=== PATIENT | female | born 1965 | race African-American/Black ===

== ENCOUNTER 2017-01-21 11:58 | Inpatient (IN) | payer MEDICARE, OTHER ==
[~2017-01-21] VITALS: Ht 167.6 cm; Wt 92.5 kg
[~2017-01-21 11:58] MED LIST: ALBUTEROL SULF8.5 GM INH; AMBIEN10 MG PO; CLINDAMYCIN HC300 MG ORAL; COUMADIN2 MG PO; HYDROCODON-ACE1 EAC4 ORAL; KEFLEX500 MG PO; NORCO 5-325 TA1 EACH ORAL; OMEPRAZOLE40 MG PO; PERIDEX 0.12% O16 OZ ORAL; PHENERGAN/CODE120 ML ORAL; PHENERGAN6.25 MG/5 ORAL; PHOSLO667 MG PO; PREDNISONE20 MG ORAL; RENAVIT TABLET0.8 MG PO; RENVELA800 MG PO; ROBITUSSIN DM5 ML PO; SENSIPAR30 MG PO; TRAMADOL HCL50 MG ORAL; VICODIN 5-5001 EACH ORAL; XOPENEX HFA15 GM IH; ZITHROMAX250 MG ORAL
[2017-01-21 12:17] VITALS: BP 95/60
[2017-01-21 13:24] LABS: BASOPHILS % (AUTO) 0.7 % (0.0-2.0); EOSINOPHILS % (AUTO) 3.4 % (0.0-3.0); LYMPHOCYTES % (AUTO) 20.4 % (20.0-45.0); MEAN CORPUSCULAR HEMOGLOBIN 29.6 PG (27.0-31.0); MEAN CORPUSCULAR HGB CONC 32.1 G/DL (32.0-36.0); MEAN CORPUSCULAR VOLUME 92 FL (80-99); MEAN PLATELET VOLUME 8.7 FL (6.5-10.1); MONOCYTES % (AUTO) 6.2 % (1.0-10.0); NEUTROPHILS % (AUTO) 69.3 % (45.0-75.0); PLATELET COUNT 164 K/UL (150-450); RED BLOOD COUNT 3.64 M/UL (4.20-5.40); RED CELL DISTRIBUTION WIDTH 15.9 % (11.6-14.8); WHITE BLOOD COUNT 6.2 K/UL (4.8-10.8)
[2017-01-21 13:41] LABS: ALANINE AMINOTRANSFERASE 12 U/L (3-33); ALBUMIN/GLOBULIN RATIO 0.9 (1.0-2.7); ANION GAP 20 (5-15); ASPARTATE AMINO TRANSFERASE 16 U/L (5-40); CALCIUM 9.2 mg/dL (8.6-10.2); CARBON DIOXIDE 24 mEQ/L (20-30); CHLORIDE 95 mEQ/L (98-107); CREATININE 9.5 mg/dL (0.5-0.9); GLOMERULAR FILTRATION RATE 5.2 mL/min (>60); HEMOLYSIS 37; POTASSIUM 3.9 mEQ/L (3.4-4.9); SODIUM 139 mEQ/L (135-145); TOTAL PROTEIN 8.3 g/dL (6.6-8.7); TROPONIN I < 0.30 ng/mL (<=0.30)
[2017-01-21 13:51] LABS: CKMB < 1.5 ng/mL (< 3.8)
--- NOTE | 2017-01-21 13:59 | Diagnostic Imaging Report ---
Indication: Dyspnea Comparison: 11/24/13 A single view chest radiograph was obtained. Findings: Heart is borderline in size. Lungs are clear. Surgical clips noted in both axilla regions. There is a catheter projected over the IVC. Bones are osteopenic. Impression: No acute cardiopulmonary disease identified
[2017-01-21 14:32] VITALS: BP 102/58
[2017-01-21] MEDS ORDERED: SENSIPAR30 MG ORAL (14:57)
[2017-01-21] MEDS ORDERED: AMBIEN10 MG ORAL (14:57)
[2017-01-21] MEDS ORDERED: OMEPRAZOLE20 M2 ORAL (14:57)
[2017-01-21] MEDS ORDERED: NEPHROVITE1 TAB ORAL (14:57)
[2017-01-21] MEDS ORDERED: RENVELA800 MG ORAL (14:57)
[2017-01-21 16:00] VITALS: BP 101/54
[2017-01-21] MEDS ORDERED: DiphenhydrAMINE 50mg/ml Inj IVP PRN (17:15)
--- NOTE | 2017-01-21 17:15 | History & Physical ---
History and Physical History & Physicial Dictated for Int Med-Dr Henley no. [id number]. SHAVONNE UGALDE Jan 21, 2017 17:15
[2017-01-21] MEDS ORDERED: Vancomycin 1.5 GM/D5W 250ML IVPB ONE (18:30)
[2017-01-21 20:50] VITALS: BP 84/46
[2017-01-21] MEDS: Heparin 5000 units/ml inj SUBQ SCH (20:57)
[2017-01-21] MEDS: Zolpidem 5mg tab ORAL PRN (22:56)
[2017-01-22 00:51] VITALS: BP 81/47
--- NOTE | 2017-01-22 03:30 | History and Physical Report ---
DATE OF ADMISSION: 01/21/2017 Chief Complaint: The patient is a 51-year-old female with history of end-stage renal disease on hemodialysis, who presents with complaint of "infection in my blood." History Of Present Illness: The patient undergoes dialysis every Wednesday, Wednesday, and Wednesday at [facility]. The patient states blood cultures on Wednesday were positive. The patient received 1 dose of vancomycin yesterday, 01/20/2017. The patient was told to come to emergency room for probable sepsis. The patient presented to [place] [facility]. The patient is admitted for positive blood cultures to rule out sepsis. Review Of Systems: Constitutional: The patient denies weight loss or weight gain. The patient does complain of subjective fevers and chills. HEENT: The patient denies ear or throat pain. The patient denies headache. Cardiovascular: The patient denies palpitations or chest pain. Chest: The patient denies wheeze or shortness of breath. Abdomen: The patient denies nausea, vomiting, diarrhea, or constipation. Genitourinary: The patient denies dysuria or increased frequency of urination. Neuromuscular: The patient denies seizures or generalized weakness. Past Medical History: Significant for end-stage renal disease, on hemodialysis every Wednesday, Wednesday, and Wednesday. The patient's last dialysis was on 01/20/2017. PAST SURGICAL HISTORY: Significant for: 1. PermCath placement in the left groin for dialysis. 2. Several arteriovenous grafts for dialysis with reversal. 3. Cholecystectomy. 4. Parathyroidectomy. 5. Carpal tunnel release. 6. Open reduction and internal fixation of the left elbow fracture. 7. 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 8. History of peritoneal dialysis port. CURRENT MEDICATIONS: 1. Sensipar 30 mg one tablet p.o. every Wednesday, Wednesday, and Wednesday. 2. Renvela 800 mg two tablets p.o. 3 times daily. 3. Omeprazole 20 mg one tablet p.o. twice daily. 4. Ambien 10 mg one tablet p.o. nightly. 5. Nephro-Dmitry 1 tablet p.o. daily. ALLERGIES: 1. Cefazolin. 2. Ciprofloxacin. 3. Gentamicin. 4. Levofloxacin. 5. Penicillin. Social History: The patient is single and is disabled. The patient denies tobacco or alcohol use. PHYSICAL EXAMINATION: Vital Signs: Temperature 97.3, respirations 16, pulse 90, and blood pressure 95/60. General: The patient is a well-developed and well-nourished female, in no apparent distress. HEENT: Eyes, pupils are equal and responsive to light and accommodation. Extraocular movements are intact. NECK: Supple without lymphadenopathy. Chest: Lungs are clear to auscultation bilaterally without wheezes or rales. Cardiovascular: Regular rate. S1 and S2 normal without murmurs, rubs, or gallops. Abdomen: Soft, nontender, and nondistended. Positive bowel sounds. No evidence of hepatosplenomegaly. Currently, no rebound or guarding noted. EXTREMITIES: Negative for clubbing, cyanosis, or edema. RECTAL: Refused. GENITAL: Refused. Neurologic: Cranial nerves II through XII are grossly intact without focal deficits. Motor strength is 5/5 bilaterally. Deep tendon reflexes are 2+, plantar. Laboratory Studies: WBC 6.2, hemoglobin 10.8, hematocrit 33.6, and platelets 164,000. Sodium 139, potassium 3.9, chloride 95, CO2 24, BUN 39, creatinine 9.5, and glucose 94. Troponin less than 0.3. ASSESSMENT: This is a 51-year-old female with: 1. Line sepsis. 2. End-stage renal disease, on hemodialysis. TREATMENT: 1. Probable sepsis. An Infectious Disease consultation has been obtained with Dr. Fairbanks. The patient has been started empirically on vancomycin. Blood cultures are pending. We will follow recommendations of infectious diseases. The patient had blood cultures drawn at [facility]. Results will be obtained from [facility]. 2. End-stage renal disease. Nephrology consultation is pending with Dr. Conner. The patient underwent dialysis yesterday, 01/20/2017. The patient is scheduled for dialysis tomorrow, 01/22/2017, by Dr. Conner. Edward Harrell M.D. DR: JONNIE JOB#: [id number] CC:
[2017-01-22 04:52] VITALS: BP 91/56
--- NOTE | 2017-01-22 06:52 | Emergency Room Report ---
History of Present Illness General Chief Complaint: Abnormal Labs Source: Patient Present Illness HPI Patient presents with complaints of general weakness She also complains of exertional dyspnea Reports over the past 2 days with short ambulation she began feeling short of breath Mild chest heaviness Patient is on dialysis Reports that she was recently started on antibiotics for possible bacteremia Shows a has a mild cough Denies any neck pain or photophobia Allergies: Coded Allergies: CEFAZOLIN (Verified Allergy, Unknown, 10/02/10) CIPROFLOXACIN (Verified Allergy, Unknown, 10/02/10) GENTAMICIN (Verified Allergy, Unknown, 10/02/10) LEVOFLOXACIN (Verified Allergy, Unknown, 10/02/10) PENICILLINS (Verified Allergy, Unknown, ITCH, 10/02/10) Patient History Past Medical History: see triage record Pertinent Family History: none Reviewed Nursing Documentation: PMH: Agreed, PSxH: Agreed Nursing Documentation-PMH Hx Cardiac Problems: Yes - Hypotension Hx Pacemaker: Yes Hx Asthma: Yes Hx Diabetes: Yes Hx Cancer: No Hx Gastrointestinal Problems: Yes Hx Dialysis: Yes - MWF, last dialysis 01/20/17. Hx Neurological Problems: No - Review of Systems All Other Systems: negative except mentioned in HPI Physical Exam Vital Signs Date Time Temp Pulse Resp B/P (MAP) Pulse Ox O2 Delivery O2 Flow Rate FiO2 01/21/17 12:17 97.3 90 16 95/60 93 Room Air Sp02 EP Interpretation: reviewed, normal General Appearance: well appearing, no apparent distress Head: normocephalic, atraumatic Eyes: bilateral eye PERRL, bilateral eye EOMI ENT: hearing grossly normal, normal pharynx, TMs + canals normal, uvula midline Neck: full range of motion, supple, no meningismus, no bony tend Respiratory: no rhonchi, no respiratory distress, no retraction, no accessory muscle use, crackles - in both lower lobes Cardiovascular #1: normal peripheral pulses, regular rate, rhythm, no edema, no gallop, no JVD, no murmur Gastrointestinal: normal bowel sounds, non tender, soft, no mass, no organomegaly, non-distended, no guarding, no hernia, no pulsatile mass, no rebound Genitourinary: no CVA tenderness Musculoskeletal: normal inspection Neurologic: oriented x3, responsive, heel sprayer first III-XII nml as tested, motor strength/ tone normal, sensory intact Psychiatric: mood/affect normal Skin: normal color, no rash, warm/dry, palpation normal Lymphatic: normal inspection, no adenopathy Medical Decision Making Diagnostic Impression: Primary Impression: ACS (acute coronary syndrome) Additional Impression: Dyspnea ER Course Patient is a fairly complex patient with multiple differential to consideration including but not limited to cardiac cardiopulmonary and vascular emergencies Patient's initial blood work and examination is appropriate No obvious signs of acute ST elevation CO Patient is chest pain-free Given her clinical description and presentation patient is admitted for further care Labs Test 01/21/17 13:00 White Blood Count 6.2 K/UL (4.8-10.8) Red Blood Count 3.64 M/UL (4.20-5.40) Hemoglobin 10.8 G/DL (12.0-16.0) Hematocrit 33.6 % (37.0-47.0) Mean Corpuscular Volume 92 FL (80-99) Mean Corpuscular Hemoglobin 29.6 PG (27.0-31.0) Mean Corpuscular Hemoglobin Concent 32.1 G/DL (32.0-36.0) Red Cell Distribution Width 15.9 % (11.6-14.8) Platelet Count 164 K/UL (150-450) Mean Platelet Volume 8.7 FL (6.5-10.1) Neutrophils (%) (Auto) 69.3 % (45.0-75.0) Lymphocytes (%) (Auto) 20.4 % (20.0-45.0) Monocytes (%) (Auto) 6.2 % (1.0-10.0) Eosinophils (%) (Auto) 3.4 % (0.0-3.0) Basophils (%) (Auto) 0.7 % (0.0-2.0) Sodium Level 139 mEQ/L (135-145) Potassium Level 3.9 mEQ/L (3.4-4.9) Chloride Level 95 mEQ/L (98-107) Carbon Dioxide Level 24 mEQ/L (20-30) Anion Gap 20 (5-15) Blood Urea Nitrogen 39 mg/dL (7-23) Creatinine 9.5 mg/dL (0.5-0.9) Estimat Glomerular Filtration Rate 5.2 mL/min (>60) Glucose Level 94 mg/dL (74-106) Lactic Acid Level 1.70 mmol/L (0.66-2.22) Calcium Level 9.2 mg/dL (8.6-10.2) Total Bilirubin 0.3 mg/dL (0.0-1.2) Aspartate Amino Transf (AST/SGOT) 16 U/L (5-40) Alanine Aminotransferase (ALT/SGPT) 12 U/L (3-33) Alkaline Phosphatase 159 U/L (35-104) Total Creatine Kinase 36 U/L (26-140) Creatine Kinase MB < 1.5 ng/mL (< 3.8) Creatine Kinase MB Relative Index 4.1 Troponin I < 0.30 ng/mL (<=0.30) Total Protein 8.3 g/dL (6.6-8.7) Albumin 4.1 g/dL (3.5-5.2) Globulin 4.2 g/dL Albumin/Globulin Ratio 0.9 (1.0-2.7) EKG Diagnostic Results Rate: normal Rhythm: NSR ST Segments: other - Nonspecific ST and T-wave changes Rhythm Strip Diag. Results EP Interpretation: yes Rate: 78 Rhythm: NSR, no PVC's, no ectopy Chest X-Ray Diagnostic Results Chest X-Ray Diagnostic Results : Chest X-Ray Ordered: Yes # of Views/Limited/Complete: 1 View Indication: Chest Pain EP Interpretation: Yes Interpretation: no consolidation, no effusion, no pneumothorax Impression: No acute disease Electronically Signed by: Angel Mullen DO Last Vital Signs Date Time Temp Pulse Resp B/P (MAP) Pulse Ox O2 Delivery O2 Flow Rate FiO2 01/22/17 04:52 96.8 73 20 91/56 94 01/21/17 20:50 Room Air Status: improved Disposition: ADMITTED INPATIENT Condition: Serious Referrals: Ash Henley MD (PCP) ANGEL MULLEN D.O. Jan 22, 2017 06:52
[2017-01-22] MEDS ORDERED: Metoclopramide 10mg/2ml Inj IVP PRN (07:15)
[2017-01-22 08:00] VITALS: BP 101/58
[2017-01-22 08:18] LABS: BASOPHILS % (AUTO) 0.7 % (0.0-2.0); EOSINOPHILS % (AUTO) 4.6 % (0.0-3.0); LYMPHOCYTES % (AUTO) 30.9 % (20.0-45.0); MEAN CORPUSCULAR HGB CONC 31.6 G/DL (32.0-36.0); MEAN CORPUSCULAR VOLUME 92 FL (80-99); MEAN PLATELET VOLUME 7.7 FL (6.5-10.1); MONOCYTES % (AUTO) 9.8 % (1.0-10.0); PLATELET COUNT 152 K/UL (150-450); RED BLOOD COUNT 3.51 M/UL (4.20-5.40); RED CELL DISTRIBUTION WIDTH 15.6 % (11.6-14.8); WHITE BLOOD COUNT 4.9 K/UL (4.8-10.8)
[2017-01-22] MEDS: Heparin 5000 units/ml inj SUBQ SCH ×2 (08:23→21:05)
[2017-01-22 08:35] LABS: CALCIUM 8.9 mg/dL (8.6-10.2); CREATININE 10.9 mg/dL (0.5-0.9); GLOMERULAR FILTRATION RATE 4.5 mL/min (>60); POTASSIUM 4.2 mEQ/L (3.4-4.9); TOTAL PROTEIN 7.3 g/dL (6.6-8.7)
[2017-01-22] MEDS ORDERED: Nephrovite tab (Rena-Vite) ORAL SCH (09:00)
[2017-01-22] MEDS ORDERED: Dyna-Hex 2% Top Sol 2oz TOPIC SCH (09:00)
--- NOTE | 2017-01-22 09:05 | Consultation ---
Consult Note Consult Note asked to eval for dialysis treatment ESRD ? Line infection + Chills due HD M W Fr on HD for 35 years- s/p Parathyroidectomy and 2 transplant Chief Complaint: Abnormal Labs Source: Patient Patient presents with complaints of general weakness She also complains of exertional dyspnea Reports over the past 2 days with short ambulation she began feeling short of breath Mild chest heaviness Patient is on dialysis Reports that she was recently started on antibiotics for possible bacteremia Shows a has a mild cough Denies any neck pain or photophobia Allergies: Coded Allergies: CEFAZOLIN (Verified Allergy, Unknown, 10/02/10) CIPROFLOXACIN (Verified Allergy, Unknown, 10/02/10) GENTAMICIN (Verified Allergy, Unknown, 10/02/10) LEVOFLOXACIN (Verified Allergy, Unknown, 10/02/10) PENICILLINS (Verified Allergy, Unknown, ITCH, 10/02/10) Hx Cardiac Problems: Yes - Hypotension Hx Asthma: Yes Hx Gastrointestinal Problems: Yes Hx Dialysis: Yes - MWF, last dialysis 01/20/17. Hx Neurological Problems: No - Assessment/Plan ESRD ? Sepsis, line Plan: Dialysis ordered Per consultants EDUARDO ROSE Jan 22, 2017 09:05
[2017-01-22 09:31] LABS: CHOLESTEROL/HDL RATIO 3.7 (3.3-4.4); CRP QUANT 5.7 mg/dL (< 0.5); PHOSPHORUS 6.7 mg/dL (2.5-4.8); URIC ACID 5.4 mg/dL (3.0-7.5)
[2017-01-22 09:32] LABS: HEMOGLOBIN A1C 5.3 % (< 6.0)
[2017-01-22 16:00] VITALS: BP 80/49
--- NOTE | 2017-01-22 16:02 | Consultation ---
History of Present Illness General Date patient seen: Jan 22, 2017 Chief Complaint: Abnormal Labs Reason for Consultation: dyspnea Present Illness HPI 51 year old female with hx of hereditary nephritis, on HD since age 15 presented to ER by paramedics with complaints of general weakness, exertional dyspnea over the past 2 days with short ambulation she began feeling short of breath Mild chest heaviness. She had episodes of chills during dialysis recently and was started on abx. She is admitted to telemetry for further work up. Allergies: Coded Allergies: CEFAZOLIN (Verified Allergy, Unknown, 10/02/10) CIPROFLOXACIN (Verified Allergy, Unknown, 10/02/10) GENTAMICIN (Verified Allergy, Unknown, 10/02/10) LEVOFLOXACIN (Verified Allergy, Unknown, 10/02/10) PENICILLINS (Verified Allergy, Unknown, ITCH, 10/02/10) Medication History Scheduled Albuterol Sulfate* (Albuterol Sulfate Mdi*), 2 PUFF INH Q4H Azithromycin* (Zithromax*), 250 MG ORAL DAILY Calcium Acetate (Phoslo), 667 MG PO TID, (Reported) Cinacalcet* (Sensipar*), 30 MG PO 3XW, (Reported) Cinacalcet* (Sensipar*), 30 MG ORAL 3XW, (Reported) Guaifenesin/Dextromethorphan (Guaifenesin Dm Syrup), 5 ML PO QHS Levalbuterol Tartrate (Xopenex Hfa), 15 GM IH Q6HR Omeprazole (Omeprazole), 40 MG PO DAILY, (Reported) Omeprazole (Omeprazole), 20 MG ORAL BID, (Reported) Prednisone* (Prednisone*), 20 MG ORAL BID Sevelamer Carbonate (Renvela), 800 MG PO TID, (Reported) Sevelamer Carbonate (Renvela), 1,600 MG ORAL THREE TIMES A DAY, (Reported) Vitamin B Cmplx/Vit C/Folic AC (Nephro-Dmitry Tablet), 1 TAB ORAL DAILY, (Reported ) Warfarin Sod* (Coumadin*), 7 MG PO DAILY, (Reported) Scheduled PRN Hydrocodone Bit/Acetaminophen 5-325* ([place] 5-325*), 1 TAB ORAL Q6H PRN for For Pain Hydrocodone Bit/Acetaminophen 5-500 (Vicodin 5-500), 1 TAB ORAL Q4H PRN for For Pain Promethazine/Dextromethorphan (Promethazine-Dm Syrup), 1 TSP ORAL Q6H PRN for For Cough Tramadol Hcl* (Ultram*), 50 MG ORAL Q6H PRN for For Pain Zolpidem Tartrate* (Ambien*), 10 MG PO HS PRN, (Reported) Zolpidem Tartrate* (Ambien*), 10 MG ORAL BEDTIME PRN for Insomnia, (Reported) Miscellaneous Medications Folic Acid/Vitamin B Comp W-C (Renavit Tablet), 0 PO, (Reported) Patient History Healthcare decision maker Resuscitation status Full Code Advanced Directive on File Past Medical/Surgical History Past Medical/Surgical History: (1) ESRF (end stage renal failure) Review of Systems All Other Systems: negative except mentioned in HPI Physical Exam General Appearance: WD/WN Lines, tubes and drains: peripheral HEENT: normocephalic Neck: non-tender, normal alignment Respiratory/Chest: chest wall non-tender, lungs clear Breasts: no masses Cardiovascular/Chest: normal peripheral pulses Abdomen: normal bowel sounds, non tender Genitourinary/Rectal: normal genital exam Extremities: normal range of motion, non-tender Skin Exam: normal pigmentation Last 24 Hour Vital Signs Date Time Temp Pulse Resp B/P (MAP) Pulse Ox O2 Delivery O2 Flow Rate FiO2 01/22/17 09:00 63 01/22/17 08:00 97.3 66 20 101/58 95 Room Air 01/22/17 04:52 96.8 73 20 91/56 94 01/22/17 04:00 55 01/22/17 00:51 96.1 64 20 81/47 97 01/22/17 00:00 65 01/21/17 20:50 97.0 65 16 84/46 99 Room Air 01/21/17 20:00 65 01/21/17 16:00 98.0 97 22 101/54 97 01/21/17 16:00 64 Laboratory Tests Test 01/22/17 07:50 White Blood Count 4.9 K/UL (4.8-10.8) Red Blood Count 3.51 M/UL (4.20-5.40) L Hemoglobin 10.2 G/DL (12.0-16.0) L Hematocrit 32.3 % (37.0-47.0) L Mean Corpuscular Volume 92 FL (80-99) Mean Corpuscular Hemoglobin 29.0 PG (27.0-31.0) Mean Corpuscular Hemoglobin Concent 31.6 G/DL (32.0-36.0) L Red Cell Distribution Width 15.6 % (11.6-14.8) H Platelet Count 152 K/UL (150-450) Mean Platelet Volume 7.7 FL (6.5-10.1) Neutrophils (%) (Auto) 54.0 % (45.0-75.0) Lymphocytes (%) (Auto) 30.9 % (20.0-45.0) Monocytes (%) (Auto) 9.8 % (1.0-10.0) Eosinophils (%) (Auto) 4.6 % (0.0-3.0) H Basophils (%) (Auto) 0.7 % (0.0-2.0) Sodium Level 140 mEQ/L (135-145) Potassium Level 4.2 mEQ/L (3.4-4.9) Chloride Level 97 mEQ/L (98-107) L Carbon Dioxide Level 24 mEQ/L (20-30) Anion Gap 19 (5-15) H Blood Urea Nitrogen 55 mg/dL (7-23) H Creatinine 10.9 mg/dL (0.5-0.9) H Estimat Glomerular Filtration Rate 4.5 mL/min (>60) Glucose Level 97 mg/dL (74-106) Hemoglobin A1c 5.3 % (< 6.0) Uric Acid 5.4 mg/dL (3.0-7.5) Calcium Level 8.9 mg/dL (8.6-10.2) Phosphorus Level 6.7 mg/dL (2.5-4.8) H Total Bilirubin 0.3 mg/dL (0.0-1.2) Aspartate Amino Transf (AST/SGOT) 10 U/L (5-40) Alanine Aminotransferase (ALT/SGPT) 10 U/L (3-33) Alkaline Phosphatase 141 U/L (35-104) H C-Reactive Protein, Quantitative 5.7 mg/dL (< 0.5) H Total Protein 7.3 g/dL (6.6-8.7) Albumin 3.8 g/dL (3.5-5.2) Globulin 3.5 g/dL Albumin/Globulin Ratio 1.0 (1.0-2.7) Triglycerides Level 175 mg/dL (< 150) H Cholesterol Level 153 mg/dL (< 200) LDL Cholesterol 77 mg/dL (60-99) HDL Cholesterol 41 mg/dL (> 60) Cholesterol/HDL Ratio 3.7 (3.3-4.4) Height (Feet): 5 Height (Inches): 6.00 Weight (Pounds): 212 Medications Current Medications Medications (Trade) Dose Ordered Sig/Marcos Route PRN Reason Start Time Stop Time Status Last Admin Dose Admin Acetaminophen (Tylenol) 650 mg Q4H PRN ORAL Mild Pain (Pain Scale 1-3) 01/21/17 17:15 02/20/17 17:14 01/21/17 20:56 Chlorhexidine Gluconate (Nivia-Hex 2%) 1 applic DAILY TOPIC 01/22/17 09:00 02/21/17 08:59 01/22/17 08:23 Cinacalcet (Sensipar) 30 mg QOD ORAL 01/23/17 09:00 02/22/17 08:59 Dextrose (Dextrose 50%) STAT PRN IV Hypoglycemia 01/21/17 17:15 02/20/17 17:14 Diphenhydramine HCl (Benadryl) 50 mg Q4H PRN IVP Itching 01/21/17 17:15 02/20/17 17:14 Heparin Sodium (Porcine) (Heparin 5000 units/ml) 5,000 units EVERY 12 HOURS SUBQ 01/21/17 21:00 02/20/17 20:59 01/22/17 08:23 Metoclopramide HCl (Reglan) 5 mg Q6H PRN IVP Nausea, Vomiting, Heartburn 01/22/17 07:15 02/21/17 07:14 01/22/17 09:58 Ondansetron HCl (Zofran) 4 mg Q4H PRN IVP Nausea & Vomiting 01/22/17 11:15 02/21/17 11:14 01/22/17 11:31 Pantoprazole (Protonix) 40 mg Q12HR ORAL 01/22/17 09:00 02/21/17 08:59 01/22/17 08:28 Sevelamer Carbonate (Renvela) 1,600 mg THREE TIMES A DAY ORAL 01/21/17 18:00 02/20/17 17:59 01/22/17 08:22 Vancomycin HCl (Vanco rx to dose) 1 ea DAILY PRN MISC Per rx protocol 01/21/17 17:15 02/20/17 17:14 Vitamin B Complex/ Vit C/Folic Acid (Nephrovite) 1 tab DAILY ORAL 01/22/17 09:00 02/21/17 08:59 01/22/17 08:28 Zolpidem Tartrate (Ambien) 5 mg HSPRN PRN ORAL Insomnia 01/21/17 21:00 01/28/17 20:59 01/21/17 22:56 Assessment/Plan Problem List: (1) Dyspnea ICD Codes: R06.00 - Dyspnea, unspecified SNOMED: 026835564 (2) ACS (acute coronary syndrome) ICD Codes: I24.9 - Acute ischemic heart disease, unspecified SNOMED: 089593788 (3) ESRF (end stage renal failure) ICD Codes: N18.6 - End stage renal disease SNOMED: 87890149 (4) Acute bronchitis Assessment/Plan HD by nephrology respiratory treatment titrate fio2 cardiology to see check sputum GABI DENNEY Jan 22, 2017 16:02
[2017-01-22] MEDS ORDERED: Promethazine/Codeine 5ml UD ORAL PRN (16:15)
[2017-01-22] MEDS ORDERED: Albuterol/Ipratropium 3ml neb HHN PRN (16:15)
--- NOTE | 2017-01-22 17:29 | Internal Med Progress Note ---
Subjective Physician Name Ash Henley Attending Physician Ash Henley MD Current Medications Medications (Trade) Dose Ordered Sig/Marcos Route PRN Reason Start Time Stop Time Status Last Admin Dose Admin Acetaminophen (Tylenol) 650 mg Q4H PRN ORAL Mild Pain (Pain Scale 1-3) 01/21/17 17:15 02/20/17 17:14 01/21/17 20:56 Albuterol/ Ipratropium (DuoNeb 0.5-3(2.5)mg/3ml) 3 ml Q4H PRN HHN Shortness of Breath 01/22/17 16:15 01/27/17 16:14 Chlorhexidine Gluconate (Nivia-Hex 2%) 1 applic DAILY TOPIC 01/22/17 09:00 02/21/17 08:59 01/22/17 08:23 Cinacalcet (Sensipar) 30 mg QOD ORAL 01/23/17 09:00 02/22/17 08:59 Dextrose (Dextrose 50%) STAT PRN IV Hypoglycemia 01/21/17 17:15 02/20/17 17:14 Diphenhydramine HCl (Benadryl) 50 mg Q4H PRN IVP Itching 01/21/17 17:15 02/20/17 17:14 Heparin Sodium (Porcine) (Heparin 5000 units/ml) 5,000 units EVERY 12 HOURS SUBQ 01/21/17 21:00 02/20/17 20:59 01/22/17 08:23 Metoclopramide HCl (Reglan) 5 mg Q6H PRN IVP Nausea, Vomiting, Heartburn 01/22/17 07:15 02/21/17 07:14 01/22/17 09:58 Ondansetron HCl (Zofran) 4 mg Q4H PRN IVP Nausea & Vomiting 01/22/17 11:15 02/21/17 11:14 01/22/17 11:31 Pantoprazole (Protonix) 40 mg Q12HR ORAL 01/22/17 09:00 02/21/17 08:59 01/22/17 08:28 Promethazine HCl/ Codeine (Phenergan with Codeine) 5 ml Q4H PRN ORAL For Cough 01/22/17 16:15 02/21/17 16:14 Sevelamer Carbonate (Renvela) 1,600 mg THREE TIMES A DAY ORAL 01/21/17 18:00 02/20/17 17:59 01/22/17 08:22 Vancomycin HCl (Vanco rx to dose) 1 ea DAILY PRN MISC Per rx protocol 01/21/17 17:15 02/20/17 17:14 Vitamin B Complex/ Vit C/Folic Acid (Nephrovite) 1 tab DAILY ORAL 01/22/17 09:00 02/21/17 08:59 01/22/17 08:28 Zolpidem Tartrate (Ambien) 5 mg HSPRN PRN ORAL Insomnia 01/21/17 21:00 01/28/17 20:59 01/21/17 22:56 Allergies: Coded Allergies: CEFAZOLIN (Verified Allergy, Unknown, 10/02/10) CIPROFLOXACIN (Verified Allergy, Unknown, 10/02/10) GENTAMICIN (Verified Allergy, Unknown, 10/02/10) LEVOFLOXACIN (Verified Allergy, Unknown, 10/02/10) PENICILLINS (Verified Allergy, Unknown, ITCH, 10/02/10) Subjective awake, alert, responsive, NAD Objective Last Vital Signs Date Time Temp Pulse Resp B/P (MAP) Pulse Ox O2 Delivery O2 Flow Rate FiO2 01/22/17 09:00 63 01/22/17 08:00 97.3 20 101/58 95 Room Air Laboratory Tests Test 01/22/17 07:50 White Blood Count 4.9 K/UL (4.8-10.8) Red Blood Count 3.51 M/UL (4.20-5.40) L Hemoglobin 10.2 G/DL (12.0-16.0) L Hematocrit 32.3 % (37.0-47.0) L Mean Corpuscular Volume 92 FL (80-99) Mean Corpuscular Hemoglobin 29.0 PG (27.0-31.0) Mean Corpuscular Hemoglobin Concent 31.6 G/DL (32.0-36.0) L Red Cell Distribution Width 15.6 % (11.6-14.8) H Platelet Count 152 K/UL (150-450) Mean Platelet Volume 7.7 FL (6.5-10.1) Neutrophils (%) (Auto) 54.0 % (45.0-75.0) Lymphocytes (%) (Auto) 30.9 % (20.0-45.0) Monocytes (%) (Auto) 9.8 % (1.0-10.0) Eosinophils (%) (Auto) 4.6 % (0.0-3.0) H Basophils (%) (Auto) 0.7 % (0.0-2.0) Sodium Level 140 mEQ/L (135-145) Potassium Level 4.2 mEQ/L (3.4-4.9) Chloride Level 97 mEQ/L (98-107) L Carbon Dioxide Level 24 mEQ/L (20-30) Anion Gap 19 (5-15) H Blood Urea Nitrogen 55 mg/dL (7-23) H Creatinine 10.9 mg/dL (0.5-0.9) H Estimat Glomerular Filtration Rate 4.5 mL/min (>60) Glucose Level 97 mg/dL (74-106) Hemoglobin A1c 5.3 % (< 6.0) Uric Acid 5.4 mg/dL (3.0-7.5) Calcium Level 8.9 mg/dL (8.6-10.2) Phosphorus Level 6.7 mg/dL (2.5-4.8) H Total Bilirubin 0.3 mg/dL (0.0-1.2) Aspartate Amino Transf (AST/SGOT) 10 U/L (5-40) Alanine Aminotransferase (ALT/SGPT) 10 U/L (3-33) Alkaline Phosphatase 141 U/L (35-104) H C-Reactive Protein, Quantitative 5.7 mg/dL (< 0.5) H Total Protein 7.3 g/dL (6.6-8.7) Albumin 3.8 g/dL (3.5-5.2) Globulin 3.5 g/dL Albumin/Globulin Ratio 1.0 (1.0-2.7) Triglycerides Level 175 mg/dL (< 150) H Cholesterol Level 153 mg/dL (< 200) LDL Cholesterol 77 mg/dL (60-99) HDL Cholesterol 41 mg/dL (> 60) Cholesterol/HDL Ratio 3.7 (3.3-4.4) Objective General: No acute distress, awake and alert HEENT: NCAT, sclera anicteric, PERRL, EOMI. Neck: Supple, no significant jugular venous distention, Lungs: Good inspiratory effort, no Wheeze or Rales. Heart: Regular rate and rhythm, normal S1/S2, no murmurs/ Abdomen: soft, nontender, nondistended. Normoactive bowel sounds, Mild obesity. Extremities: No Cyanosis , clubbing or edema. Left groin Dialysis cath, Neuro: A&O x 3, Able to move all extremities Skin: warm, no rashes or lesions Psych: Normal mood and affect Assessment/Plan Assessment/Plan 1. Sepsis possible due to Line sepsis. 2. End-stage renal disease, on hemodialysis. 3. Anemia of CKD. Plan: Abx: Vanco IV F/U with ID consult dialysis tonight DC Telemetry F/U with labs and cultures Ash Henley MD Jan 22, 2017 17:29
--- NOTE | 2017-01-22 19:05 | Consultation ---
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 She has noticed general weakness, LOPEZ, mild chest heaviness, mild cough and chills. Bcx were obtain on Mondy 01/18 becuse of these symptoms and reported being positive on 01/20. Patient has very limited vascular access and L femoral HD cath is her only available vascular acess. Denies DURANT, fevers, rash, abd pain, n/v/d, cath site pain, redness or discharge. afebrile, no leukocytosis, Bcx pending CXR neg Started on IV Vancomycin Allergies: Coded Allergies: CEFAZOLIN (Verified Allergy, Unknown, 10/02/10) CIPROFLOXACIN (Verified Allergy, Unknown, 10/02/10) GENTAMICIN (Verified Allergy, Unknown, 10/02/10) LEVOFLOXACIN (Verified Allergy, Unknown, 10/02/10) PENICILLINS (Verified Allergy, Unknown, ITCH, 10/02/10) Medication History Scheduled Albuterol Sulfate* (Albuterol Sulfate Mdi*), 2 PUFF INH Q4H Azithromycin* (Zithromax*), 250 MG ORAL DAILY Calcium Acetate (Phoslo), 667 MG PO TID, (Reported) Cinacalcet* (Sensipar*), 30 MG PO 3XW, (Reported) Cinacalcet* (Sensipar*), 30 MG ORAL 3XW, (Reported) Guaifenesin/Dextromethorphan (Guaifenesin Dm Syrup), 5 ML PO QHS Levalbuterol Tartrate (Xopenex Hfa), 15 GM IH Q6HR Omeprazole (Omeprazole), 40 MG PO DAILY, (Reported) Omeprazole (Omeprazole), 20 MG ORAL BID, (Reported) Prednisone* (Prednisone*), 20 MG ORAL BID Sevelamer Carbonate (Renvela), 800 MG PO TID, (Reported) Sevelamer Carbonate (Renvela), 1,600 MG ORAL THREE TIMES A DAY, (Reported) Vitamin B Cmplx/Vit C/Folic AC (Nephro-Dmitry Tablet), 1 TAB ORAL DAILY, (Reported ) Warfarin Sod* (Coumadin*), 7 MG PO DAILY, (Reported) Scheduled PRN Hydrocodone Bit/Acetaminophen 5-325* ([place] 5-325*), 1 TAB ORAL Q6H PRN for For Pain Hydrocodone Bit/Acetaminophen 5-500 (Vicodin 5-500), 1 TAB ORAL Q4H PRN for For Pain Promethazine/Dextromethorphan (Promethazine-Dm Syrup), 1 TSP ORAL Q6H PRN for For Cough Tramadol Hcl* (Ultram*), 50 MG ORAL Q6H PRN for For Pain Zolpidem Tartrate* (Ambien*), 10 MG PO HS PRN, (Reported) Zolpidem Tartrate* (Ambien*), 10 MG ORAL BEDTIME PRN for Insomnia, (Reported) Miscellaneous Medications Folic Acid/Vitamin B Comp W-C (Renavit Tablet), 0 PO, (Reported) Patient History Healthcare decision maker Resuscitation status Full Code Advanced Directive on File Patient History Narrative PMHx: Above FHx: non pertinent from ID Social Hx: The patient is single and is disabled. The patient denies tobacco or alcohol use. Review of Systems All Other Systems: negative except mentioned in HPI Physical Exam Physical Exam Narrative General: The patient is a well-developed and well-nourished female, in no apparent distress. HEENT: Eyes, pupils are equal and responsive to light and accommodation.Extraocular movements are intact. NECK: Supple without lymphadenopathy. Chest: Lungs are clear to auscultation bilaterally without wheezes or rales. Cardiovascular: Regular rate. S1 and S2 normal without murmurs, rubs, or gallops. Abdomen: Soft, nontender, and nondistended. Positive bowel sounds. No evidence of hepatosplenomegaly. Currently, no rebound or guarding noted. EXTREMITIES: Negative for clubbing, cyanosis, or edema. L femoral HD cath site with no signs of infection, non tender Neurologic: grossly intact without focal SKIN: no rashes Last 24 Hour Vital Signs Date Time Temp Pulse Resp B/P (MAP) Pulse Ox O2 Delivery O2 Flow Rate FiO2 10/6/17 16:00 66 01/22/17 16:00 97.2 66 20 80/49 92 01/22/17 12:00 61 01/22/17 09:00 63 01/22/17 08:00 97.3 66 20 101/58 95 Room Air 01/22/17 04:52 96.8 73 20 91/56 94 01/22/17 04:00 55 01/22/17 00:51 96.1 64 20 81/47 97 01/22/17 00:00 65 01/21/17 20:50 97.0 65 16 84/46 99 Room Air 01/21/17 20:00 65 Intake and Output 01/22/17 01/23/17 19:00 07:00 Intake Total 550 ml Balance 550 ml Intake Oral 550 ml # Voids 1 Laboratory Tests Test 01/22/17 07:50 White Blood Count 4.9 K/UL (4.8-10.8) Red Blood Count 3.51 M/UL (4.20-5.40) L Hemoglobin 10.2 G/DL (12.0-16.0) L Hematocrit 32.3 % (37.0-47.0) L Mean Corpuscular Volume 92 FL (80-99) Mean Corpuscular Hemoglobin 29.0 PG (27.0-31.0) Mean Corpuscular Hemoglobin Concent 31.6 G/DL (32.0-36.0) L Red Cell Distribution Width 15.6 % (11.6-14.8) H Platelet Count 152 K/UL (150-450) Mean Platelet Volume 7.7 FL (6.5-10.1) Neutrophils (%) (Auto) 54.0 % (45.0-75.0) Lymphocytes (%) (Auto) 30.9 % (20.0-45.0) Monocytes (%) (Auto) 9.8 % (1.0-10.0) Eosinophils (%) (Auto) 4.6 % (0.0-3.0) H Basophils (%) (Auto) 0.7 % (0.0-2.0) Sodium Level 140 mEQ/L (135-145) Potassium Level 4.2 mEQ/L (3.4-4.9) Chloride Level 97 mEQ/L (98-107) L Carbon Dioxide Level 24 mEQ/L (20-30) Anion Gap 19 (5-15) H Blood Urea Nitrogen 55 mg/dL (7-23) H Creatinine 10.9 mg/dL (0.5-0.9) H Estimat Glomerular Filtration Rate 4.5 mL/min (>60) Glucose Level 97 mg/dL (74-106) Hemoglobin A1c 5.3 % (< 6.0) Uric Acid 5.4 mg/dL (3.0-7.5) Calcium Level 8.9 mg/dL (8.6-10.2) Phosphorus Level 6.7 mg/dL (2.5-4.8) H Total Bilirubin 0.3 mg/dL (0.0-1.2) Aspartate Amino Transf (AST/SGOT) 10 U/L (5-40) Alanine Aminotransferase (ALT/SGPT) 10 U/L (3-33) Alkaline Phosphatase 141 U/L (35-104) H C-Reactive Protein, Quantitative 5.7 mg/dL (< 0.5) H Total Protein 7.3 g/dL (6.6-8.7) Albumin 3.8 g/dL (3.5-5.2) Globulin 3.5 g/dL Albumin/Globulin Ratio 1.0 (1.0-2.7) Triglycerides Level 175 mg/dL (< 150) H Cholesterol Level 153 mg/dL (< 200) LDL Cholesterol 77 mg/dL (60-99) HDL Cholesterol 41 mg/dL (> 60) Cholesterol/HDL Ratio 3.7 (3.3-4.4) Height (Feet): 5 Height (Inches): 6.00 Weight (Pounds): 212 Medications Current Medications Medications (Trade) Dose Ordered Sig/Marcos Route PRN Reason Start Time Stop Time Status Last Admin Dose Admin Acetaminophen (Tylenol) 650 mg Q4H PRN ORAL Mild Pain (Pain Scale 1-3) 01/21/17 17:15 02/20/17 17:14 01/21/17 20:56 Albuterol/ Ipratropium (DuoNeb 0.5-3(2.5)mg/3ml) 3 ml Q4H PRN HHN Shortness of Breath 01/22/17 16:15 01/27/17 16:14 Chlorhexidine Gluconate (Nivia-Hex 2%) 1 applic DAILY TOPIC 01/22/17 09:00 02/21/17 08:59 01/22/17 08:23 Cinacalcet (Sensipar) 30 mg QOD ORAL 01/23/17 09:00 02/22/17 08:59 Dextrose (Dextrose 50%) STAT PRN IV Hypoglycemia 01/21/17 17:15 02/20/17 17:14 Diphenhydramine HCl (Benadryl) 50 mg Q4H PRN IVP Itching 01/21/17 17:15 02/20/17 17:14 Heparin Sodium (Porcine) (Heparin 5000 units/ml) 5,000 units EVERY 12 HOURS SUBQ 01/21/17 21:00 02/20/17 20:59 01/22/17 08:23 Metoclopramide HCl (Reglan) 5 mg Q6H PRN IVP Nausea, Vomiting, Heartburn 01/22/17 07:15 02/21/17 07:14 01/22/17 09:58 Ondansetron HCl (Zofran) 4 mg Q4H PRN IVP Nausea & Vomiting 01/22/17 11:15 02/21/17 11:14 01/22/17 11:31 Pantoprazole (Protonix) 40 mg Q12HR ORAL 01/22/17 09:00 02/21/17 08:59 01/22/17 08:28 Promethazine HCl/ Codeine (Phenergan with Codeine) 5 ml Q4H PRN ORAL For Cough 01/22/17 16:15 02/21/17 16:14 Sevelamer Carbonate (Renvela) 1,600 mg THREE TIMES A DAY ORAL 01/21/17 18:00 02/20/17 17:59 01/22/17 08:22 Vancomycin HCl (Vanco rx to dose) 1 ea DAILY PRN MISC Per rx protocol 01/21/17 17:15 02/20/17 17:14 Vitamin B Complex/ Vit C/Folic Acid (Nephrovite) 1 tab DAILY ORAL 01/22/17 09:00 02/21/17 08:59 01/22/17 08:28 Zolpidem Tartrate (Ambien) 5 mg HSPRN PRN ORAL Insomnia 01/21/17 21:00 01/28/17 20:59 01/21/17 22:56 Objective Narrative General Appearance: well appearing, no apparent distress Head: normocephalic, atraumatic Eyes: bilateral eye PERRL, bilateral eye EOMI ENT: hearing grossly normal, normal pharynx, TMs + canals normal, uvula midline Neck: full range of motion, supple, no meningismus, no bony tend Respiratory: no rhonchi, no respiratory distress, no retraction, no accessory muscle use, crackles - in both lower lobes Cardiovascular #1: normal peripheral pulses, regular rate, rhythm, no edema, no gallop, no JVD, no murmur Gastrointestinal: normal bowel sounds, non tender, soft, no mass, no organomegaly, non-distended, no guarding, no hernia, no pulsatile mass, no rebound Genitourinary: no CVA tenderness Musculoskeletal: normal inspection Neurologic: oriented x3, responsive, android ios developer III-XII nml as tested, motor strength/ tone normal, sensory intact Psychiatric: mood/affect normal Skin: normal color, no rash, warm/dry, palpation normal Lymphatic: normal inspection, no adenopathy Assessment/Plan Assessment/Plan Abx: IV Vancomycin 01/21- Assesment: Bacteremia (positive at HD center)- likely 2ry to infected HD cath- unclear at this point type of bacteria- r/o S. aureus -Bcx pending -CXR no acute disease -2d Echo 01/22: no vegetations seen, no significant valve abrnomalities Afebrile/no leukocytosis ESRD on HD Failed renal transplant x2 Plan: -Continue IV Vancomycin #2 -given difficulty of access, will treat through line; duration to be determine -IV vancomycin lock- will discuss with pharmacy -obtain records at HD center (asked RN to have patient filled authorization for release of records) -f/u Bcx -if persistent bacteremia, will need MICHAEL. -Monitor CBC/BMP, temperatures Thank you for this consultation. Will continue to follow along with you. Discussed with WILLI. Ashlee Molina M.D. Jan 22, 2017 19:04
[2017-01-22 20:00] VITALS: BP 81/40
[2017-01-22] MEDS: Zolpidem 5mg tab ORAL PRN (23:20)
[2017-01-23] VITALS (7 sets, daily range): BP systolic 72–92; BP diastolic 42–56
[2017-01-23] MEDS ORDERED: Promethazine/Codeine 5ml UD ORAL PRN (00:15)
[2017-01-23] MEDS ORDERED: Albuterol/Ipratropium 3ml neb HHN PRN (00:15)
[2017-01-23] MEDS ORDERED: Metoclopramide 10mg/2ml Inj IVP PRN (01:15)
[2017-01-23 07:26] LABS: BASOPHILS % (AUTO) 0.5 % (0.0-2.0); EOSINOPHILS % (AUTO) 3.9 % (0.0-3.0); LYMPHOCYTES % (AUTO) 29.9 % (20.0-45.0); MEAN CORPUSCULAR HEMOGLOBIN 29.7 PG (27.0-31.0); MEAN CORPUSCULAR HGB CONC 32.3 G/DL (32.0-36.0); MEAN CORPUSCULAR VOLUME 92 FL (80-99); MEAN PLATELET VOLUME 7.7 FL (6.5-10.1); MONOCYTES % (AUTO) 9.1 % (1.0-10.0); NEUTROPHILS % (AUTO) 56.6 % (45.0-75.0); PLATELET COUNT 167 K/UL (150-450); RED BLOOD COUNT 3.18 M/UL (4.20-5.40); RED CELL DISTRIBUTION WIDTH 15.6 % (11.6-14.8); WHITE BLOOD COUNT 4.2 K/UL (4.8-10.8)
[2017-01-23 07:42] LABS: ALBUMIN/GLOBULIN RATIO 1.1 (1.0-2.7); CALCIUM 8.7 mg/dL (8.6-10.2); CREATININE 8.3 mg/dL (0.5-0.9); GLOMERULAR FILTRATION RATE 6.1 mL/min (>60); POTASSIUM 3.9 mEQ/L (3.4-4.9); THYROID STIMULATING HORMONE 1.2 uIU/mL (0.300-4.500); TOTAL PROTEIN 6.8 g/dL (6.6-8.7)
[2017-01-23 08:02] LABS: CRP QUANT 4.3 mg/dL (< 0.5); MAGNESIUM 1.8 mg/dL (1.7-2.5); PHOSPHORUS 5.2 mg/dL (2.5-4.8)
--- NOTE | 2017-01-23 08:28 | Infectious Diseases Prog Note ---
Assessment/Plan Assessment/Plan Abx: IV Vancomycin 01/21- Assesment: Bacteremia (positive at HD center)- likely 2ry to infected HD cath- unclear at this point type of bacteria- r/o S. aureus -Bcx 01/22 NTD -CXR no acute disease -2d Echo 01/22: no vegetations seen, no significant valve abrnomalities Afebrile/no leukocytosis ESRD on HD Failed renal transplant x2 Plan: -Continue IV Vancomycin #3 -given difficulty of access, will treat through line; duration to be determine -IV vancomycin lock- can be done as outpatient- (pharmacy doesn;t do it here) -obtain records at HD center (asked RN to have patient filled authorization for release of records); pending -f/u Bcx -if persistent bacteremia, will need MICHAEL. -Monitor CBC/BMP, temperatures Thank you for this consultation. Will continue to follow along with you. Discussed with RN. Subjective Allergies: Coded Allergies: CEFAZOLIN (Verified Allergy, Unknown, 10/02/10) CIPROFLOXACIN (Verified Allergy, Unknown, 10/02/10) GENTAMICIN (Verified Allergy, Unknown, 10/02/10) LEVOFLOXACIN (Verified Allergy, Unknown, 10/02/10) PENICILLINS (Verified Allergy, Unknown, ITCH, 10/02/10) Subjective afebrile VSS Bcx here NTD Objective Vital Signs Last 24 Hour Vital Signs Date Time Temp Pulse Resp B/P (MAP) Pulse Ox O2 Delivery O2 Flow Rate FiO2 01/23/17 08:09 97.7 83 20 92/56 95 Room Air 01/23/17 04:00 97.3 64 21 76/47 94 Room Air 01/23/17 03:01 Room Air 01/23/17 03:01 Room Air 01/23/17 00:00 97.0 71 20 72/45 90 Room Air 01/22/17 22:53 79 18 94 Room Air 01/22/17 22:48 76 18 94 Room Air 01/22/17 20:30 Room Air 01/22/17 20:00 97.2 71 16 81/40 95 Room Air 01/22/17 17:25 Room Air 01/22/17 16:00 66 01/22/17 16:00 97.2 66 20 80/49 92 01/22/17 12:00 61 01/22/17 09:00 63 Height (Feet): 5 Height (Inches): 6.00 Weight (Pounds): 215 Objective General: The patient is a well-developed and well-nourished female, in no apparent distress. HEENT: Eyes, pupils are equal and responsive to light and accommodation.Extraocular movements are intact. NECK: Supple without lymphadenopathy. Chest: Lungs are clear to auscultation bilaterally without wheezes or rales. Cardiovascular: Regular rate. S1 and S2 normal without murmurs, rubs, or gallops. Abdomen: Soft, nontender, and nondistended. Positive bowel sounds. No evidence of hepatosplenomegaly. Currently, no rebound or guarding noted. EXTREMITIES: Negative for clubbing, cyanosis, or edema. L femoral HD cath site with no signs of infection, non tender Neurologic: grossly intact without focal SKIN: no rashes Microbiology Date/Time Source Procedure Growth Status 01/21/17 13:35 Blood Blood Culture - Preliminary NO GROWTH AFTER 24 HOURS Resulted 01/21/17 13:00 Blood Blood Culture - Preliminary NO GROWTH AFTER 24 HOURS Resulted Laboratory Tests Test 01/23/17 06:35 White Blood Count 4.2 K/UL (4.8-10.8) L Red Blood Count 3.18 M/UL (4.20-5.40) L Hemoglobin 9.4 G/DL (12.0-16.0) L Hematocrit 29.2 % (37.0-47.0) L Mean Corpuscular Volume 92 FL (80-99) Mean Corpuscular Hemoglobin 29.7 PG (27.0-31.0) Mean Corpuscular Hemoglobin Concent 32.3 G/DL (32.0-36.0) Red Cell Distribution Width 15.6 % (11.6-14.8) H Platelet Count 167 K/UL (150-450) Mean Platelet Volume 7.7 FL (6.5-10.1) Neutrophils (%) (Auto) 56.6 % (45.0-75.0) Lymphocytes (%) (Auto) 29.9 % (20.0-45.0) Monocytes (%) (Auto) 9.1 % (1.0-10.0) Eosinophils (%) (Auto) 3.9 % (0.0-3.0) H Basophils (%) (Auto) 0.5 % (0.0-2.0) Sodium Level 145 mEQ/L (135-145) Potassium Level 3.9 mEQ/L (3.4-4.9) Chloride Level 97 mEQ/L (98-107) L Carbon Dioxide Level 34 mEQ/L (20-30) H Anion Gap 14 (5-15) Blood Urea Nitrogen 49 mg/dL (7-23) H Creatinine 8.3 mg/dL (0.5-0.9) H Estimat Glomerular Filtration Rate 6.1 mL/min (>60) Glucose Level 93 mg/dL (74-106) Uric Acid 4.0 mg/dL (3.0-7.5) Calcium Level 8.7 mg/dL (8.6-10.2) Phosphorus Level 5.2 mg/dL (2.5-4.8) H Magnesium Level 1.8 mg/dL (1.7-2.5) Ferritin 898 ng/mL (13-150) H Total Bilirubin 0.3 mg/dL (0.0-1.2) Aspartate Amino Transf (AST/SGOT) 12 U/L (5-40) Alanine Aminotransferase (ALT/SGPT) 11 U/L (3-33) Alkaline Phosphatase 135 U/L (35-104) H Total Creatine Kinase 28 U/L (26-140) C-Reactive Protein, Quantitative 4.3 mg/dL (< 0.5) H Pro-B-Type Natriuretic Peptide 4515 pg/mL (0-125) H Total Protein 6.8 g/dL (6.6-8.7) Albumin 3.6 g/dL (3.5-5.2) Globulin 3.2 g/dL Albumin/Globulin Ratio 1.1 (1.0-2.7) Vitamin B12 Level 399 pg/mL (211-946) Folate Pending Thyroid Stimulating Hormone (TSH) 1.200 uIU/mL (0.300-4.500) Random Vancomycin Level 4.9 ug/mL Current Medications Medications (Trade) Dose Ordered Sig/Marcos Route PRN Reason Start Time Stop Time Status Last Admin Dose Admin Acetaminophen (Tylenol) 650 mg Q4H PRN ORAL Mild Pain (Pain Scale 1-3) 01/23/17 01:15 02/20/17 17:14 Albuterol/ Ipratropium (DuoNeb 0.5-3(2.5)mg/3ml) 3 ml Q4H PRN HHN Shortness of Breath 01/23/17 00:15 01/27/17 16:14 Chlorhexidine Gluconate (Nivia-Hex 2%) 1 applic DAILY TOPIC 01/23/17 09:00 02/21/17 08:59 Cinacalcet (Sensipar) 30 mg QOD ORAL 01/23/17 09:00 02/22/17 08:59 Dextrose (Dextrose 50%) STAT PRN IV Hypoglycemia 01/23/17 17:15 02/20/17 17:14 Diphenhydramine HCl (Benadryl) 50 mg Q4H PRN IVP Itching 01/23/17 01:15 02/20/17 17:14 Heparin Sodium (Porcine) (Heparin 5000 units/ml) 5,000 units EVERY 12 HOURS SUBQ 01/23/17 09:00 02/20/17 20:59 Metoclopramide HCl (Reglan) 5 mg Q6H PRN IVP Nausea, Vomiting, Heartburn 01/23/17 01:15 02/21/17 07:14 Ondansetron HCl (Zofran) 4 mg Q4H PRN IVP Nausea & Vomiting 01/23/17 03:15 02/21/17 11:14 Pantoprazole (Protonix) 40 mg Q12HR ORAL 01/23/17 09:00 02/21/17 08:59 Promethazine HCl/ Codeine (Phenergan with Codeine) 5 ml Q4H PRN ORAL For Cough 01/23/17 00:15 02/21/17 16:14 Sevelamer Carbonate (Renvela) 1,600 mg THREE TIMES A DAY ORAL 01/23/17 09:00 02/20/17 17:59 Vancomycin HCl (Vanco rx to dose) 1 ea DAILY PRN MISC Per rx protocol 01/23/17 09:00 02/20/17 17:14 Vancomycin HCl/ Dextrose 250 ml @ 125 mls/hr ONCE ONCE IVPB 01/23/17 09:00 01/23/17 10:59 Vitamin B Complex/ Vit C/Folic Acid (Nephrovite) 1 tab DAILY ORAL 01/23/17 09:00 02/21/17 08:59 Zolpidem Tartrate (Ambien) 5 mg HSPRN PRN ORAL Insomnia 01/23/17 21:00 01/28/17 20:59 Ashlee Molina M.D. Jan 23, 2017 08:28
[2017-01-23] MEDS: Heparin 5000 units/ml inj SUBQ SCH ×2 (08:39→21:58)
[2017-01-23] MEDS: Nephrovite tab (Rena-Vite) ORAL SCH (08:40)
[2017-01-23] MEDS: Sensipar 30mg Tab ORAL SCH (08:43)
[2017-01-23] MEDS: Dyna-Hex 2% Top Sol 2oz TOPIC SCH (08:55)
[2017-01-23] MEDS ORDERED: Vancomycin 1.5 GM/D5W 250ML IVPB ONE (09:00)
[2017-01-23] MEDS ORDERED: Sensipar 30mg Tab ORAL SCH (09:00)
[2017-01-23] MEDS ORDERED: DiphenhydrAMINE 50mg/ml Inj IVP ONE (09:30)
--- NOTE | 2017-01-23 09:44 | General Progress Note ---
Assessment/Plan Status: stable Assessment/Plan ESRD Possible line infection . Permacath in groin Low BP Vanco dialysed 01/22 next dialysis 01/25 check cortisol level start midodrine for low bp Subjective ROS Limited/Unobtainable: No Constitutional: Reports: other - feels well Allergies: Coded Allergies: CEFAZOLIN (Verified Allergy, Unknown, 10/02/10) CIPROFLOXACIN (Verified Allergy, Unknown, 10/02/10) GENTAMICIN (Verified Allergy, Unknown, 10/02/10) LEVOFLOXACIN (Verified Allergy, Unknown, 10/02/10) PENICILLINS (Verified Allergy, Unknown, ITCH, 10/02/10) Objective Last 24 Hour Vital Signs Date Time Temp Pulse Resp B/P (MAP) Pulse Ox O2 Delivery O2 Flow Rate FiO2 01/23/17 08:39 74 18 94 Room Air 01/23/17 08:39 75 18 94 Room Air 01/23/17 08:09 97.7 83 20 92/56 95 Room Air 01/23/17 04:00 97.3 64 21 76/47 94 Room Air 01/23/17 03:01 Room Air 01/23/17 03:01 Room Air 01/23/17 00:00 97.0 71 20 72/45 90 Room Air 01/22/17 22:53 79 18 94 Room Air 01/22/17 22:48 76 18 94 Room Air 01/22/17 20:30 Room Air 01/22/17 20:00 97.2 71 16 81/40 95 Room Air 01/22/17 17:25 Room Air 01/22/17 16:00 66 01/22/17 16:00 97.2 66 20 80/49 92 01/22/17 12:00 61 Laboratory Tests 01/23/17 06:35: White Blood Count 4.2L, Red Blood Count 3.18L, Hemoglobin 9.4L, Hematocrit 29.2L , Mean Corpuscular Volume 92, Mean Corpuscular Hemoglobin 29.7, Mean Corpuscular Hemoglobin Concent 32.3, Red Cell Distribution Width 15.6H, Platelet Count 167, Mean Platelet Volume 7.7, Neutrophils (%) (Auto) 56.6, Lymphocytes (%) (Auto) 29.9, Monocytes (%) (Auto) 9.1, Eosinophils (%) (Auto) 3.9H, Basophils (%) (Auto) 0.5, Sodium Level 145, Potassium Level 3.9, Chloride Level 97L, Carbon Dioxide Level 34H, Anion Gap 14, Blood Urea Nitrogen 49H, Creatinine 8.3H, Estimat Glomerular Filtration Rate 6.1, Glucose Level 93, Uric Acid 4.0, Calcium Level 8.7, Phosphorus Level 5.2H, Magnesium Level 1.8, Ferritin 898H, Total Bilirubin 0.3, Aspartate Amino Transf (AST/SGOT) 12, Alanine Aminotransferase (ALT/SGPT) 11, Alkaline Phosphatase 135H, Total Creatine Kinase 28, C-Reactive Protein, Quantitative 4.3H, Pro-B-Type Natriuretic Peptide 4515H, Total Protein 6.8, Albumin 3.6, Globulin 3.2, Albumin /Globulin Ratio 1.1, Vitamin B12 Level 399, Folate [Pending], Thyroid Stimulating Hormone (TSH) 1.200, Random Vancomycin Level 4.9 Height (Feet): 5 Height (Inches): 6.00 Weight (Pounds): 215 General Appearance: no apparent distress EENT: other - scar ant neck, s/p Parathyroidectomy Cardiovascular: normal rate Respiratory/Chest: lungs clear Abdomen: soft EDUARDO ROSE Jan 23, 2017 09:44
[2017-01-23 10:01] LABS: HEMOLYSIS 9; IRON 123 ug/dL (37-145); TOTAL IRON BINDING CAPACITY 196 ug/dL (250-400)
[2017-01-23] MEDS: Midodrine 10mg tab ORAL SCH ×2 (13:14→18:21)
--- NOTE | 2017-01-23 13:37 | Internal Med Progress Note ---
Subjective Date of Service: Jan 23, 2017 Physician Name SharriShavonne Attending Physician Ash Henley MD Current Medications Medications (Trade) Dose Ordered Sig/Marcos Route PRN Reason Start Time Stop Time Status Last Admin Dose Admin Acetaminophen (Tylenol) 650 mg Q4H PRN ORAL Mild Pain (Pain Scale 1-3) 01/23/17 01:15 02/20/17 17:14 01/23/17 11:58 Albuterol/ Ipratropium (DuoNeb 0.5-3(2.5)mg/3ml) 3 ml Q4H PRN HHN Shortness of Breath 01/23/17 00:15 01/27/17 16:14 Chlorhexidine Gluconate (Nivia-Hex 2%) 1 applic DAILY TOPIC 01/23/17 09:00 02/21/17 08:59 01/23/17 08:55 Cinacalcet (Sensipar) 30 mg QOD ORAL 01/23/17 09:00 02/22/17 08:59 01/23/17 08:43 Dextrose (Dextrose 50%) STAT PRN IV Hypoglycemia 01/23/17 17:15 02/20/17 17:14 Diphenhydramine HCl (Benadryl) 50 mg Q4H PRN IVP Itching 01/23/17 01:15 02/20/17 17:14 Heparin Sodium (Porcine) (Heparin 5000 units/ml) 5,000 units EVERY 12 HOURS SUBQ 01/23/17 09:00 02/20/17 20:59 01/23/17 08:39 Metoclopramide HCl (Reglan) 5 mg Q6H PRN IVP Nausea, Vomiting, Heartburn 01/23/17 01:15 02/21/17 07:14 Midodrine (Pro-Amatine) 10 mg THREE TIMES A DAY ORAL 01/23/17 13:00 02/22/17 12:59 01/23/17 13:14 Ondansetron HCl (Zofran) 4 mg Q4H PRN IVP Nausea & Vomiting 01/23/17 03:15 02/21/17 11:14 Pantoprazole (Protonix) 40 mg Q12HR ORAL 01/23/17 09:00 02/21/17 08:59 01/23/17 08:40 Promethazine HCl/ Codeine (Phenergan with Codeine) 5 ml Q4H PRN ORAL For Cough 01/23/17 00:15 02/21/17 16:14 Sevelamer Carbonate (Renvela) 1,600 mg THREE TIMES A DAY ORAL 01/23/17 09:00 02/20/17 17:59 01/23/17 13:14 Vancomycin HCl (Vanco rx to dose) 1 ea DAILY PRN MISC Per rx protocol 01/23/17 09:00 02/20/17 17:14 Vitamin B Complex/ Vit C/Folic Acid (Nephrovite) 1 tab DAILY ORAL 01/23/17 09:00 02/21/17 08:59 01/23/17 08:40 Zolpidem Tartrate (Ambien) 5 mg HSPRN PRN ORAL Insomnia 01/23/17 21:00 01/28/17 20:59 Allergies: Coded Allergies: CEFAZOLIN (Verified Allergy, Unknown, 10/02/10) CIPROFLOXACIN (Verified Allergy, Unknown, 10/02/10) GENTAMICIN (Verified Allergy, Unknown, 10/02/10) LEVOFLOXACIN (Verified Allergy, Unknown, 10/02/10) PENICILLINS (Verified Allergy, Unknown, ITCH, 10/02/10) ROS Limited/Unobtainable: No Constitutional: Reports: no symptoms HEENT: Reports: no symptoms Cardiovascular: Reports: no symptoms Respiratory: Reports: no symptoms Gastrointestinal/Abdominal: Reports: no symptoms Genitourinary: Reports: no symptoms Neurologic/Psychiatric: Reports: no symptoms Subjective 51 YO F admitted with line sepsis. Cover for [facility]-Dr Henley. Objective Last Vital Signs Date Time Temp Pulse Resp B/P (MAP) Pulse Ox O2 Delivery O2 Flow Rate FiO2 01/23/17 11:47 97.5 71 90/53 98 Room Air 01/23/17 08:39 18 General Appearance: WD/WN, no apparent distress, alert, obese EENT: PERRL/EOMI, normal ENT inspection Neck: non-tender, normal alignment, supple, normal inspection Cardiovascular: normal peripheral pulses, normal rate, regular rhythm, no gallop/murmur, no JVD Respiratory/Chest: chest wall non-tender, lungs clear, normal breath sounds, no respiratory distress, no accessory muscle use Abdomen: normal bowel sounds, non tender, soft, no organomegaly, no mass Extremities: normal range of motion Neurologic: button tacker II-XII grossly normal, no motor/sensory deficits Skin: normal pigmentation, warm/dry Laboratory Tests Test 01/23/17 06:35 White Blood Count 4.2 K/UL (4.8-10.8) L Red Blood Count 3.18 M/UL (4.20-5.40) L Hemoglobin 9.4 G/DL (12.0-16.0) L Hematocrit 29.2 % (37.0-47.0) L Mean Corpuscular Volume 92 FL (80-99) Mean Corpuscular Hemoglobin 29.7 PG (27.0-31.0) Mean Corpuscular Hemoglobin Concent 32.3 G/DL (32.0-36.0) Red Cell Distribution Width 15.6 % (11.6-14.8) H Platelet Count 167 K/UL (150-450) Mean Platelet Volume 7.7 FL (6.5-10.1) Neutrophils (%) (Auto) 56.6 % (45.0-75.0) Lymphocytes (%) (Auto) 29.9 % (20.0-45.0) Monocytes (%) (Auto) 9.1 % (1.0-10.0) Eosinophils (%) (Auto) 3.9 % (0.0-3.0) H Basophils (%) (Auto) 0.5 % (0.0-2.0) Sodium Level 145 mEQ/L (135-145) Potassium Level 3.9 mEQ/L (3.4-4.9) Chloride Level 97 mEQ/L (98-107) L Carbon Dioxide Level 34 mEQ/L (20-30) H Anion Gap 14 (5-15) Blood Urea Nitrogen 49 mg/dL (7-23) H Creatinine 8.3 mg/dL (0.5-0.9) H Estimat Glomerular Filtration Rate 6.1 mL/min (>60) Glucose Level 93 mg/dL (74-106) Uric Acid 4.0 mg/dL (3.0-7.5) Calcium Level 8.7 mg/dL (8.6-10.2) Phosphorus Level 5.2 mg/dL (2.5-4.8) H Magnesium Level 1.8 mg/dL (1.7-2.5) Iron Level 123 ug/dL (37-145) Total Iron Binding Capacity 196 ug/dL (250-400) L Percent Iron Saturation 63 % (15-50) H Unsaturated Iron Binding 73 ug/dL (112-346) L Ferritin 898 ng/mL (13-150) H Total Bilirubin 0.3 mg/dL (0.0-1.2) Aspartate Amino Transf (AST/SGOT) 12 U/L (5-40) Alanine Aminotransferase (ALT/SGPT) 11 U/L (3-33) Alkaline Phosphatase 135 U/L (35-104) H Total Creatine Kinase 28 U/L (26-140) C-Reactive Protein, Quantitative 4.3 mg/dL (< 0.5) H Pro-B-Type Natriuretic Peptide 4515 pg/mL (0-125) H Total Protein 6.8 g/dL (6.6-8.7) Albumin 3.6 g/dL (3.5-5.2) Globulin 3.2 g/dL Albumin/Globulin Ratio 1.1 (1.0-2.7) Vitamin B12 Level 399 pg/mL (211-946) Folate Pending Thyroid Stimulating Hormone (TSH) 1.200 uIU/mL (0.300-4.500) Random Vancomycin Level 4.9 ug/mL Microbiology Date/Time Source Procedure Growth Status 01/21/17 13:35 Blood Blood Culture - Preliminary NO GROWTH AFTER 24 HOURS Resulted 01/21/17 13:00 Blood Blood Culture - Preliminary NO GROWTH AFTER 24 HOURS Resulted 01/21/17 14:25 Rectum VRE Culture - Final NO VANCOMYCIN RESISTANT ENTEROCOCCUS ... Complete Intake and Output 01/23/17 01/24/17 19:00 07:00 Intake Total 120 ml Output Total 0 ml Balance 120 ml Intake Oral 120 ml Output Urine Total 0 ml Assessment/Plan Problem List: (1) Anemia of renal disease (2) Hypoparathyroidism Assessment & Plan: S/P parathyroidectomy (3) ESRD (end stage renal disease) on dialysis Assessment & Plan: Hemodialysis per nephrology. (4) Line sepsis associated with dialysis catheter Assessment & Plan: See ID note. Await blood cultures. Cont IV vanco. Status: not improved SHAVONNE UGALDE Jan 23, 2017 13:37
[2017-01-23] MEDS ORDERED: Zolpidem 5mg tab ORAL PRN (21:00)
--- NOTE | 2017-01-23 23:18 | Pulmonology Progress Note ---
Assessment/Plan Problems: (1) Dyspnea (2) ACS (acute coronary syndrome) (3) ESRF (end stage renal failure) (4) Acute bronchitis Assessment/Plan respiratory treatment titrate fo2 f/u by renal symptomatic treatment Subjective ROS Limited/Unobtainable: No Interval Events: feeling better Allergies: Coded Allergies: CEFAZOLIN (Verified Allergy, Unknown, 10/02/10) CIPROFLOXACIN (Verified Allergy, Unknown, 10/02/10) GENTAMICIN (Verified Allergy, Unknown, 10/02/10) LEVOFLOXACIN (Verified Allergy, Unknown, 10/02/10) PENICILLINS (Verified Allergy, Unknown, ITCH, 10/02/10) Objective Last 24 Hour Vital Signs Date Time Temp Pulse Resp B/P (MAP) Pulse Ox O2 Delivery O2 Flow Rate FiO2 01/23/17 19:35 97.2 67 20 91/44 96 Room Air 01/23/17 18:25 66 85/46 01/23/17 16:00 97.9 59 20 79/42 97 Room Air 01/23/17 11:47 97.5 71 90/53 98 Room Air 01/23/17 08:39 74 18 94 Room Air 01/23/17 08:39 75 18 94 Room Air 01/23/17 08:09 97.7 83 20 92/56 95 Room Air 01/23/17 04:00 97.3 64 21 76/47 94 Room Air 01/23/17 03:01 Room Air 01/23/17 03:01 Room Air 01/23/17 00:00 97.0 71 20 72/45 90 Room Air Intake and Output 01/23/17 01/24/17 19:00 07:00 Intake Total 520 ml Output Total 0 ml Balance 520 ml Intake Oral 520 ml Output Urine Total 0 ml # Voids 4 General Appearance: WD/WN HEENT: normocephalic, atraumatic Respiratory/Chest: chest wall non-tender, lungs clear, normal breath sounds Cardiovascular: normal peripheral pulses, normal rate, regular rhythm Abdomen: normal bowel sounds Extremities: no cyanosis Skin: no rash Neurologic/Psychiatric: vp treasurer II-XII grossly normal, no motor/sensory deficits Lymphatic: no neck adenopathy Microbiology Date/Time Source Procedure Growth Status 01/21/17 13:35 Blood Blood Culture - Preliminary NO GROWTH AFTER 24 HOURS Resulted 01/21/17 13:00 Blood Blood Culture - Preliminary NO GROWTH AFTER 24 HOURS Resulted 01/21/17 14:25 Rectum VRE Culture - Final NO VANCOMYCIN RESISTANT ENTEROCOCCUS ... Complete Laboratory Tests 01/23/17 06:35: White Blood Count 4.2L, Red Blood Count 3.18L, Hemoglobin 9.4L, Hematocrit 29.2L , Mean Corpuscular Volume 92, Mean Corpuscular Hemoglobin 29.7, Mean Corpuscular Hemoglobin Concent 32.3, Red Cell Distribution Width 15.6H, Platelet Count 167, Mean Platelet Volume 7.7, Neutrophils (%) (Auto) 56.6, Lymphocytes (%) (Auto) 29.9, Monocytes (%) (Auto) 9.1, Eosinophils (%) (Auto) 3.9H, Basophils (%) (Auto) 0.5, Sodium Level 145, Potassium Level 3.9, Chloride Level 97L, Carbon Dioxide Level 34H, Anion Gap 14, Blood Urea Nitrogen 49H, Creatinine 8.3H, Estimat Glomerular Filtration Rate 6.1, Glucose Level 93, Uric Acid 4.0, Calcium Level 8.7, Phosphorus Level 5.2H, Magnesium Level 1.8, Iron Level 123, Total Iron Binding Capacity 196L, Percent Iron Saturation 63H, Unsaturated Iron Binding 73L, Ferritin 898H, Total Bilirubin 0.3, Aspartate Amino Transf (AST/SGOT) 12, Alanine Aminotransferase (ALT/SGPT) 11, Alkaline Phosphatase 135H, Total Creatine Kinase 28, C-Reactive Protein, Quantitative 4.3H, Pro-B-Type Natriuretic Peptide 4515H, Total Protein 6.8, Albumin 3.6, Globulin 3.2, Albumin/Globulin Ratio 1.1, Vitamin B12 Level 399, Folate [Pending ], Thyroid Stimulating Hormone (TSH) 1.200, Random Vancomycin Level 4.9 Current Medications Medications (Trade) Dose Ordered Sig/Marcos Route PRN Reason Start Time Stop Time Status Last Admin Dose Admin Acetaminophen (Tylenol) 650 mg Q4H PRN ORAL Mild Pain (Pain Scale 1-3) 01/23/17 01:15 02/20/17 17:14 01/23/17 11:58 Albuterol/ Ipratropium (DuoNeb 0.5-3(2.5)mg/3ml) 3 ml Q4H PRN HHN Shortness of Breath 01/23/17 00:15 01/27/17 16:14 Chlorhexidine Gluconate (Nivia-Hex 2%) 1 applic DAILY TOPIC 01/23/17 09:00 02/21/17 08:59 01/23/17 08:55 Cinacalcet (Sensipar) 30 mg QOD ORAL 01/23/17 09:00 02/22/17 08:59 01/23/17 08:43 Dextrose (Dextrose 50%) STAT PRN IV Hypoglycemia 01/23/17 17:15 02/20/17 17:14 Diphenhydramine HCl (Benadryl) 50 mg Q4H PRN IVP Itching 01/23/17 01:15 02/20/17 17:14 Heparin Sodium (Porcine) (Heparin 5000 units/ml) 5,000 units EVERY 12 HOURS SUBQ 01/23/17 09:00 02/20/17 20:59 01/23/17 21:58 Metoclopramide HCl (Reglan) 5 mg Q6H PRN IVP Nausea, Vomiting, Heartburn 01/23/17 01:15 02/21/17 07:14 Midodrine (Pro-Amatine) 10 mg THREE TIMES A DAY ORAL 01/23/17 13:00 02/22/17 12:59 01/23/17 18:21 Ondansetron HCl (Zofran) 4 mg Q4H PRN IVP Nausea & Vomiting 01/23/17 03:15 02/21/17 11:14 Pantoprazole (Protonix) 40 mg Q12HR ORAL 01/23/17 09:00 02/21/17 08:59 01/23/17 21:59 Promethazine HCl/ Codeine (Phenergan with Codeine) 5 ml Q4H PRN ORAL For Cough 01/23/17 00:15 02/21/17 16:14 Sevelamer Carbonate (Renvela) 1,600 mg THREE TIMES A DAY ORAL 01/23/17 09:00 02/20/17 17:59 01/23/17 18:21 Vancomycin HCl (Vanco rx to dose) 1 ea DAILY PRN MISC Per rx protocol 01/23/17 09:00 02/20/17 17:14 Vitamin B Complex/ Vit C/Folic Acid (Nephrovite) 1 tab DAILY ORAL 01/23/17 09:00 02/21/17 08:59 01/23/17 08:40 Zolpidem Tartrate (Ambien) 5 mg HSPRN PRN ORAL Insomnia 01/23/17 21:00 01/28/17 20:59 GABI DENNEY Jan 23, 2017 23:18
[2017-01-24] MEDS: DiphenhydrAMINE 50mg/ml Inj IVP PRN ×2 (00:22→22:15)
[2017-01-24 00:41] VITALS: BP 99/50
[2017-01-24 04:11] VITALS: BP 91/41
[2017-01-24 07:51] LABS: BASOPHILS % (AUTO) 1.1 % (0.0-2.0); EOSINOPHILS % (AUTO) 4.5 % (0.0-3.0); LYMPHOCYTES % (AUTO) 32.2 % (20.0-45.0); MEAN CORPUSCULAR HEMOGLOBIN 29.8 PG (27.0-31.0); MEAN CORPUSCULAR HGB CONC 32.3 G/DL (32.0-36.0); MEAN CORPUSCULAR VOLUME 92 FL (80-99); MEAN PLATELET VOLUME 7.8 FL (6.5-10.1); MONOCYTES % (AUTO) 7.4 % (1.0-10.0); NEUTROPHILS % (AUTO) 54.8 % (45.0-75.0); PLATELET COUNT 142 K/UL (150-450); RED BLOOD COUNT 3.14 M/UL (4.20-5.40); RED CELL DISTRIBUTION WIDTH 15.8 % (11.6-14.8); WHITE BLOOD COUNT 5.2 K/UL (4.8-10.8)
[2017-01-24 08:00] VITALS: BP 94/56
[2017-01-24 08:37] LABS: CALCIUM 8.4 mg/dL (8.6-10.2); CREATININE 10.7 mg/dL (0.5-0.9); GLOMERULAR FILTRATION RATE 4.6 mL/min (>60); POTASSIUM 4.2 mEQ/L (3.4-4.9)
[2017-01-24] MEDS: Heparin 5000 units/ml inj SUBQ SCH ×2 (09:00→20:37)
[2017-01-24] MEDS: Midodrine 10mg tab ORAL SCH ×3 (09:36→20:36)
[2017-01-24] MEDS: Nephrovite tab (Rena-Vite) ORAL SCH (09:36)
[2017-01-24] MEDS: Dyna-Hex 2% Top Sol 2oz TOPIC SCH (09:38)
[2017-01-24] MEDS ORDERED: NS 275ml ONE (09:44)
--- NOTE | 2017-01-24 09:59 | General Progress Note ---
Assessment/Plan Status: stable Assessment/Plan ESRD Possible line infection . Permacath in groin Low BP Vanco dialysed 01/22 next dialysis 01/25 check cortisol level start midodrine for low bp Subjective ROS Limited/Unobtainable: No Allergies: Coded Allergies: CEFAZOLIN (Verified Allergy, Unknown, 10/02/10) CIPROFLOXACIN (Verified Allergy, Unknown, 10/02/10) GENTAMICIN (Verified Allergy, Unknown, 10/02/10) LEVOFLOXACIN (Verified Allergy, Unknown, 10/02/10) PENICILLINS (Verified Allergy, Unknown, ITCH, 10/02/10) Objective Last 24 Hour Vital Signs Date Time Temp Pulse Resp B/P (MAP) Pulse Ox O2 Delivery O2 Flow Rate FiO2 01/24/17 08:00 97.9 62 20 94/56 96 Room Air 01/24/17 04:11 97.6 52 20 91/41 Room Air 01/24/17 00:41 97.6 66 20 99/50 99 Room Air 01/23/17 19:35 97.2 67 20 91/44 96 Room Air 01/23/17 18:25 66 85/46 01/23/17 16:00 97.9 59 20 79/42 97 Room Air 01/23/17 11:47 97.5 71 90/53 98 Room Air Laboratory Tests 01/24/17 05:00: White Blood Count 5.2, Red Blood Count 3.14L, Hemoglobin 9.3L, Hematocrit 29.0L , Mean Corpuscular Volume 92, Mean Corpuscular Hemoglobin 29.8, Mean Corpuscular Hemoglobin Concent 32.3, Red Cell Distribution Width 15.8H, Platelet Count 142L, Mean Platelet Volume 7.8, Neutrophils (%) (Auto) 54.8, Lymphocytes (%) (Auto) 32.2, Monocytes (%) (Auto) 7.4, Eosinophils (%) (Auto) 4.5H, Basophils (%) (Auto) 1.1, Sodium Level 143, Potassium Level 4.2, Chloride Level 94L, Carbon Dioxide Level 28, Anion Gap 21H, Blood Urea Nitrogen 56H, Creatinine 10.7H, Estimat Glomerular Filtration Rate 4.6, Glucose Level 89, Calcium Level 8.4L, Random Vancomycin Level 22.6 Height (Feet): 5 Height (Inches): 6.00 Weight (Pounds): 197 General Appearance: no apparent distress EDUARDO ROSE Jan 24, 2017 09:59
[2017-01-24 12:00] VITALS: BP 99/59
--- NOTE | 2017-01-24 14:01 | Infectious Diseases Prog Note ---
Assessment/Plan Assessment/Plan A; Bacteremia with S. epidermidis ESRD on HD History of rejected kidney transplant Anemia P; Continue IV Vancomycin during HD Subjective ROS Limited/Unobtainable: No Constitutional: Reports: no symptoms Respiratory: Reports: no symptoms Cardiovascular: Reports: no symptoms Gastrointestinal/Abdominal: Reports: no symptoms Genitourinary: Reports: no symptoms Allergies: Coded Allergies: CEFAZOLIN (Verified Allergy, Unknown, 10/02/10) CIPROFLOXACIN (Verified Allergy, Unknown, 10/02/10) GENTAMICIN (Verified Allergy, Unknown, 10/02/10) LEVOFLOXACIN (Verified Allergy, Unknown, 10/02/10) PENICILLINS (Verified Allergy, Unknown, ITCH, 10/02/10) Objective Vital Signs Last 24 Hour Vital Signs Date Time Temp Pulse Resp B/P (MAP) Pulse Ox O2 Delivery O2 Flow Rate FiO2 01/24/17 12:00 97.3 59 20 99/59 95 Room Air 01/24/17 08:00 97.9 62 20 94/56 96 Room Air 01/24/17 04:11 97.6 52 20 91/41 Room Air 01/24/17 00:41 97.6 66 20 99/50 99 Room Air 01/23/17 19:35 97.2 67 20 91/44 96 Room Air 01/23/17 18:25 66 85/46 01/23/17 16:00 97.9 59 20 79/42 97 Room Air Height (Feet): 5 Height (Inches): 6.00 Weight (Pounds): 197 General Appearance: no acute distress HEENT: mucous membranes moist Respiratory/Chest: lungs clear Cardiovascular: normal rate, other - Left femoral HD line Abdomen: soft, non tender Extremities: no edema Neurologic/Psychiatric: alert, oriented x 3, responsive Microbiology Date/Time Source Procedure Growth Status 01/23/17 09:05 Sputum Gram Stain Pending Resulted 01/23/17 09:05 Sputum Sputum Culture - Preliminary NORMAL UPPER RESPIRATORY ESTEPHANIE AT 24 ... Resulted 01/21/17 14:25 Nasal Nares MRSA Culture - Final NO METHICILLIN RESISTANT STAPH AUREUS... Complete 01/21/17 14:25 Rectum VRE Culture - Final NO VANCOMYCIN RESISTANT ENTEROCOCCUS ... Complete Laboratory Tests Test 01/24/17 05:00 White Blood Count 5.2 K/UL (4.8-10.8) Red Blood Count 3.14 M/UL (4.20-5.40) L Hemoglobin 9.3 G/DL (12.0-16.0) L Hematocrit 29.0 % (37.0-47.0) L Mean Corpuscular Volume 92 FL (80-99) Mean Corpuscular Hemoglobin 29.8 PG (27.0-31.0) Mean Corpuscular Hemoglobin Concent 32.3 G/DL (32.0-36.0) Red Cell Distribution Width 15.8 % (11.6-14.8) H Platelet Count 142 K/UL (150-450) L Mean Platelet Volume 7.8 FL (6.5-10.1) Neutrophils (%) (Auto) 54.8 % (45.0-75.0) Lymphocytes (%) (Auto) 32.2 % (20.0-45.0) Monocytes (%) (Auto) 7.4 % (1.0-10.0) Eosinophils (%) (Auto) 4.5 % (0.0-3.0) H Basophils (%) (Auto) 1.1 % (0.0-2.0) Sodium Level 143 mEQ/L (135-145) Potassium Level 4.2 mEQ/L (3.4-4.9) Chloride Level 94 mEQ/L (98-107) L Carbon Dioxide Level 28 mEQ/L (20-30) Anion Gap 21 (5-15) H Blood Urea Nitrogen 56 mg/dL (7-23) H Creatinine 10.7 mg/dL (0.5-0.9) H Estimat Glomerular Filtration Rate 4.6 mL/min (>60) Glucose Level 89 mg/dL (74-106) Calcium Level 8.4 mg/dL (8.6-10.2) L Random Vancomycin Level 22.6 ug/mL Current Medications Medications (Trade) Dose Ordered Sig/Marcos Route PRN Reason Start Time Stop Time Status Last Admin Dose Admin Acetaminophen (Tylenol) 650 mg Q4H PRN ORAL Mild Pain (Pain Scale 1-3) 01/23/17 01:15 02/20/17 17:14 01/23/17 11:58 Albuterol/ Ipratropium (DuoNeb 0.5-3(2.5)mg/3ml) 3 ml Q4H PRN HHN Shortness of Breath 01/23/17 00:15 01/27/17 16:14 Chlorhexidine Gluconate (Nivia-Hex 2%) 1 applic DAILY@2000 TOPIC 01/25/17 20:00 02/24/17 19:59 Cinacalcet (Sensipar) 30 mg QOD ORAL 01/23/17 09:00 02/22/17 08:59 01/23/17 08:43 Dextrose (Dextrose 50%) STAT PRN IV Hypoglycemia 01/23/17 17:15 02/20/17 17:14 Diphenhydramine HCl (Benadryl) 50 mg Q4H PRN IVP Itching 01/23/17 01:15 02/20/17 17:14 01/24/17 00:22 Fluconazole (Diflucan) 100 mg DAILY ORAL 01/24/17 14:00 01/31/17 13:59 Heparin Sodium (Porcine) (Heparin 5000 units/ml) 5,000 units EVERY 12 HOURS SUBQ 01/23/17 09:00 02/20/17 20:59 01/23/17 21:58 Metoclopramide HCl (Reglan) 5 mg Q6H PRN IVP Nausea, Vomiting, Heartburn 01/23/17 01:15 02/21/17 07:14 Midodrine (Pro-Amatine) 10 mg THREE TIMES A DAY ORAL 01/23/17 13:00 02/22/17 12:59 01/24/17 13:40 Ondansetron HCl (Zofran) 4 mg Q4H PRN IVP Nausea & Vomiting 01/23/17 03:15 02/21/17 11:14 Pantoprazole (Protonix) 40 mg Q12HR ORAL 01/23/17 09:00 02/21/17 08:59 01/24/17 09:36 Promethazine HCl/ Codeine (Phenergan with Codeine) 5 ml Q4H PRN ORAL For Cough 01/23/17 00:15 02/21/17 16:14 Sevelamer Carbonate (Renvela) 1,600 mg THREE TIMES A DAY ORAL 01/23/17 09:00 02/20/17 17:59 01/24/17 13:40 Vancomycin HCl (Vanco rx to dose) 1 ea DAILY PRN MISC Per rx protocol 01/23/17 09:00 02/20/17 17:14 Vancomycin HCl/ Dextrose 250 ml @ 166.667 mls/hr ONCE ONCE IVPB 01/25/17 16:00 01/25/17 17:29 Vitamin B Complex/ Vit C/Folic Acid (Nephrovite) 1 tab DAILY ORAL 01/23/17 09:00 02/21/17 08:59 01/24/17 09:36 Zolpidem Tartrate (Ambien) 5 mg HSPRN PRN ORAL Insomnia 01/23/17 21:00 01/28/17 20:59 TOREY MAYS Jan 24, 2017 14:01
--- NOTE | 2017-01-24 14:53 | Internal Med Progress Note ---
Subjective Date of Service: Jan 24, 2017 Physician Name Ugalde,Shavonne Attending Physician Ash Henley MD Current Medications Medications (Trade) Dose Ordered Sig/Marcos Route PRN Reason Start Time Stop Time Status Last Admin Dose Admin Acetaminophen (Tylenol) 650 mg Q4H PRN ORAL Mild Pain (Pain Scale 1-3) 01/23/17 01:15 02/20/17 17:14 01/23/17 11:58 Albuterol/ Ipratropium (DuoNeb 0.5-3(2.5)mg/3ml) 3 ml Q4H PRN HHN Shortness of Breath 01/23/17 00:15 01/27/17 16:14 Chlorhexidine Gluconate (Nivia-Hex 2%) 1 applic DAILY@2000 TOPIC 01/25/17 20:00 02/24/17 19:59 Cinacalcet (Sensipar) 30 mg QOD ORAL 01/23/17 09:00 02/22/17 08:59 01/23/17 08:43 Dextrose (Dextrose 50%) STAT PRN IV Hypoglycemia 01/23/17 17:15 02/20/17 17:14 Diphenhydramine HCl (Benadryl) 50 mg Q4H PRN IVP Itching 01/23/17 01:15 02/20/17 17:14 01/24/17 00:22 Fluconazole (Diflucan) 100 mg DAILY ORAL 01/24/17 14:00 01/31/17 13:59 Heparin Sodium (Porcine) (Heparin 5000 units/ml) 5,000 units EVERY 12 HOURS SUBQ 01/23/17 09:00 02/20/17 20:59 01/23/17 21:58 Metoclopramide HCl (Reglan) 5 mg Q6H PRN IVP Nausea, Vomiting, Heartburn 01/23/17 01:15 02/21/17 07:14 Midodrine (Pro-Amatine) 10 mg THREE TIMES A DAY ORAL 01/23/17 13:00 02/22/17 12:59 01/24/17 13:40 Ondansetron HCl (Zofran) 4 mg Q4H PRN IVP Nausea & Vomiting 01/23/17 03:15 02/21/17 11:14 Pantoprazole (Protonix) 40 mg Q12HR ORAL 01/23/17 09:00 02/21/17 08:59 01/24/17 09:36 Promethazine HCl/ Codeine (Phenergan with Codeine) 5 ml Q4H PRN ORAL For Cough 01/23/17 00:15 02/21/17 16:14 Sevelamer Carbonate (Renvela) 1,600 mg THREE TIMES A DAY ORAL 01/23/17 09:00 02/20/17 17:59 01/24/17 13:40 Vancomycin HCl 500 mg/Dextrose 110 ml @ 110 mls/hr POSTHD IVPB 01/25/17 12:00 01/30/17 11:59 Vitamin B Complex/ Vit C/Folic Acid (Nephrovite) 1 tab DAILY ORAL 01/23/17 09:00 02/21/17 08:59 01/24/17 09:36 Zolpidem Tartrate (Ambien) 5 mg HSPRN PRN ORAL Insomnia 01/23/17 21:00 01/28/17 20:59 Allergies: Coded Allergies: CEFAZOLIN (Verified Allergy, Unknown, 10/02/10) CIPROFLOXACIN (Verified Allergy, Unknown, 10/02/10) GENTAMICIN (Verified Allergy, Unknown, 10/02/10) LEVOFLOXACIN (Verified Allergy, Unknown, 10/02/10) PENICILLINS (Verified Allergy, Unknown, ITCH, 10/02/10) ROS Limited/Unobtainable: No Constitutional: Reports: no symptoms HEENT: Reports: no symptoms Cardiovascular: Reports: no symptoms Respiratory: Reports: no symptoms Gastrointestinal/Abdominal: Reports: no symptoms Genitourinary: Reports: no symptoms Neurologic/Psychiatric: Reports: no symptoms Subjective 51 YO F admitted with line sepsis. Cover for Int Med-Dr Henley. Objective Last Vital Signs Date Time Temp Pulse Resp B/P (MAP) Pulse Ox O2 Delivery O2 Flow Rate FiO2 01/24/17 12:00 97.3 59 20 99/59 95 Room Air Laboratory Tests Test 01/24/17 05:00 White Blood Count 5.2 K/UL (4.8-10.8) Red Blood Count 3.14 M/UL (4.20-5.40) L Hemoglobin 9.3 G/DL (12.0-16.0) L Hematocrit 29.0 % (37.0-47.0) L Mean Corpuscular Volume 92 FL (80-99) Mean Corpuscular Hemoglobin 29.8 PG (27.0-31.0) Mean Corpuscular Hemoglobin Concent 32.3 G/DL (32.0-36.0) Red Cell Distribution Width 15.8 % (11.6-14.8) H Platelet Count 142 K/UL (150-450) L Mean Platelet Volume 7.8 FL (6.5-10.1) Neutrophils (%) (Auto) 54.8 % (45.0-75.0) Lymphocytes (%) (Auto) 32.2 % (20.0-45.0) Monocytes (%) (Auto) 7.4 % (1.0-10.0) Eosinophils (%) (Auto) 4.5 % (0.0-3.0) H Basophils (%) (Auto) 1.1 % (0.0-2.0) Sodium Level 143 mEQ/L (135-145) Potassium Level 4.2 mEQ/L (3.4-4.9) Chloride Level 94 mEQ/L (98-107) L Carbon Dioxide Level 28 mEQ/L (20-30) Anion Gap 21 (5-15) H Blood Urea Nitrogen 56 mg/dL (7-23) H Creatinine 10.7 mg/dL (0.5-0.9) H Estimat Glomerular Filtration Rate 4.6 mL/min (>60) Glucose Level 89 mg/dL (74-106) Calcium Level 8.4 mg/dL (8.6-10.2) L Random Vancomycin Level 22.6 ug/mL Microbiology Date/Time Source Procedure Growth Status 01/23/17 09:05 Sputum Gram Stain - Final Resulted 01/23/17 09:05 Sputum Sputum Culture - Preliminary NORMAL UPPER RESPIRATORY ESTEPHANIE AT 24 ... Resulted Objective General Appearance: WD/WN, no apparent distress, alert, obese EENT: PERRL/EOMI, normal ENT inspection Neck: non-tender, normal alignment, supple, normal inspection Cardiovascular: normal peripheral pulses, normal rate, regular rhythm, no gallop/murmur, no JVD Respiratory/Chest: chest wall non-tender, lungs clear, normal breath sounds, no respiratory distress, no accessory muscle use Abdomen: normal bowel sounds, non tender, soft, no organomegaly, no mass Extremities: normal range of motion Neurologic: prototype sewer II-XII grossly normal, no motor/sensory deficits Skin: normal pigmentation, warm/dry Assessment/Plan Problem List: (1) Anemia of renal disease (2) Hypoparathyroidism Assessment & Plan: S/P parathyroidectomy (3) ESRD (end stage renal disease) on dialysis Assessment & Plan: Hemodialysis per nephrology. (4) Line sepsis associated with dialysis catheter Assessment & Plan: See ID note. Await blood cultures. Cont IV vanco. Status: progressing SHAVONNE UGALDE Jan 24, 2017 14:53
[2017-01-24] MEDS: Fluconazole 100mg tab ORAL SCH (15:30)
[2017-01-24 16:00] VITALS: BP 99/50
[2017-01-24 20:00] VITALS: BP 103/62
--- NOTE | 2017-01-24 22:51 | Pulmonology Progress Note ---
Assessment/Plan Problems: (1) Dyspnea (2) ACS (acute coronary syndrome) (3) ESRF (end stage renal failure) (4) Acute bronchitis Assessment/Plan iv abx check cultures respiratory treatment titrate fio2 dc planning Subjective ROS Limited/Unobtainable: No Constitutional: Reports: no symptoms Respiratory: Reports: no symptoms Allergies: Coded Allergies: CEFAZOLIN (Verified Allergy, Unknown, 10/02/10) CIPROFLOXACIN (Verified Allergy, Unknown, 10/02/10) GENTAMICIN (Verified Allergy, Unknown, 10/02/10) LEVOFLOXACIN (Verified Allergy, Unknown, 10/02/10) PENICILLINS (Verified Allergy, Unknown, ITCH, 10/02/10) Objective Last 24 Hour Vital Signs Date Time Temp Pulse Resp B/P (MAP) Pulse Ox O2 Delivery O2 Flow Rate FiO2 01/24/17 20:00 97.3 50 20 103/62 96 Room Air 01/24/17 16:00 97.5 60 20 99/50 97 Room Air 01/24/17 12:00 97.3 59 20 99/59 95 Room Air 01/24/17 08:00 97.9 62 20 94/56 96 Room Air 01/24/17 04:11 97.6 52 20 91/41 Room Air 01/24/17 00:41 97.6 66 20 99/50 99 Room Air Intake and Output 01/24/17 01/25/17 19:00 07:00 Intake Total 200 ml Balance 200 ml Intake Oral 200 ml # Voids 4 General Appearance: WD/WN, no acute distress HEENT: normocephalic, atraumatic Respiratory/Chest: chest wall non-tender, lungs clear Cardiovascular: normal peripheral pulses, normal rate Extremities: no cyanosis Skin: no lesions 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 Resulted Laboratory Tests 01/24/17 05:00: White Blood Count 5.2, Red Blood Count 3.14L, Hemoglobin 9.3L, Hematocrit 29.0L , Mean Corpuscular Volume 92, Mean Corpuscular Hemoglobin 29.8, Mean Corpuscular Hemoglobin Concent 32.3, Red Cell Distribution Width 15.8H, Platelet Count 142L, Mean Platelet Volume 7.8, Neutrophils (%) (Auto) 54.8, Lymphocytes (%) (Auto) 32.2, Monocytes (%) (Auto) 7.4, Eosinophils (%) (Auto) 4.5H, Basophils (%) (Auto) 1.1, Sodium Level 143, Potassium Level 4.2, Chloride Level 94L, Carbon Dioxide Level 28, Anion Gap 21H, Blood Urea Nitrogen 56H, Creatinine 10.7H, Estimat Glomerular Filtration Rate 4.6, Glucose Level 89, Calcium Level 8.4L, Random Vancomycin Level 22.6 Current Medications Medications (Trade) Dose Ordered Sig/Marcos Route PRN Reason Start Time Stop Time Status Last Admin Dose Admin Acetaminophen (Tylenol) 650 mg Q4H PRN ORAL Mild Pain (Pain Scale 1-3) 01/23/17 01:15 02/20/17 17:14 01/23/17 11:58 Albuterol/ Ipratropium (DuoNeb 0.5-3(2.5)mg/3ml) 3 ml Q4H PRN HHN Shortness of Breath 01/23/17 00:15 01/27/17 16:14 Chlorhexidine Gluconate (Nivia-Hex 2%) 1 applic DAILY@2000 TOPIC 01/25/17 20:00 02/24/17 19:59 Cinacalcet (Sensipar) 30 mg QOD ORAL 01/23/17 09:00 02/22/17 08:59 01/23/17 08:43 Dextrose (Dextrose 50%) STAT PRN IV Hypoglycemia 01/23/17 17:15 02/20/17 17:14 Diphenhydramine HCl (Benadryl) 50 mg Q4H PRN IVP Itching 01/23/17 01:15 02/20/17 17:14 01/24/17 22:15 Fluconazole (Diflucan) 100 mg DAILY ORAL 01/24/17 14:00 01/31/17 13:59 01/24/17 15:30 Heparin Sodium (Porcine) (Heparin 5000 units/ml) 5,000 units EVERY 12 HOURS SUBQ 01/23/17 09:00 02/20/17 20:59 01/23/17 21:58 Metoclopramide HCl (Reglan) 5 mg Q6H PRN IVP Nausea, Vomiting, Heartburn 01/23/17 01:15 02/21/17 07:14 Midodrine (Pro-Amatine) 10 mg THREE TIMES A DAY ORAL 01/23/17 13:00 02/22/17 12:59 01/24/17 20:36 Ondansetron HCl (Zofran) 4 mg Q4H PRN IVP Nausea & Vomiting 01/23/17 03:15 02/21/17 11:14 Pantoprazole (Protonix) 40 mg Q12HR ORAL 01/23/17 09:00 02/21/17 08:59 01/24/17 20:36 Promethazine HCl/ Codeine (Phenergan with Codeine) 5 ml Q4H PRN ORAL For Cough 01/23/17 00:15 02/21/17 16:14 Sevelamer Carbonate (Renvela) 1,600 mg THREE TIMES A DAY ORAL 01/23/17 09:00 02/20/17 17:59 01/24/17 20:36 Vancomycin HCl 500 mg/Dextrose 110 ml @ 110 mls/hr POSTHD IVPB 01/25/17 12:00 01/30/17 11:59 Vitamin B Complex/ Vit C/Folic Acid (Nephrovite) 1 tab DAILY ORAL 01/23/17 09:00 02/21/17 08:59 01/24/17 09:36 Zolpidem Tartrate (Ambien) 5 mg HSPRN PRN ORAL Insomnia 01/23/17 21:00 01/28/17 20:59 GABI DENNEY Jan 24, 2017 22:51
[2017-01-25] VITALS: BP 100/54
[2017-01-25 04:00] VITALS: BP 97/58
[2017-01-25 05:30] VITALS: BP 90/53
[2017-01-25] MEDS ORDERED: Heparin Sod 1000 units/ml 10ml INJ ONE (06:30)
[2017-01-25 06:51] LABS: BASOPHILS % (AUTO) 1.2 % (0.0-2.0); EOSINOPHILS % (AUTO) 3.6 % (0.0-3.0); LYMPHOCYTES % (AUTO) 32.2 % (20.0-45.0); MEAN CORPUSCULAR HEMOGLOBIN 30.6 PG (27.0-31.0); MEAN CORPUSCULAR HGB CONC 33.2 G/DL (32.0-36.0); MEAN CORPUSCULAR VOLUME 92 FL (80-99); MONOCYTES % (AUTO) 4.1 % (1.0-10.0); NEUTROPHILS % (AUTO) 58.9 % (45.0-75.0); PLATELET COUNT 150 K/UL (150-450); RED BLOOD COUNT 3.44 M/UL (4.20-5.40); RED CELL DISTRIBUTION WIDTH 16.1 % (11.6-14.8)
--- NOTE | 2017-01-25 08:30 | Cardiology Report ---
APPROVED REPORT EXAM: Two-dimensional and M-mode echocardiogram with Doppler and color Doppler. INDICATION Congestive Heart Failure M-Mode DIMENSIONS IVSd1.2 (0.7-1.1cm)Left Atrium (MM)4.3 (1.6-4.0cm) LVDd4.3 (3.5-5.6cm)Aortic Root2.0 (2.0-3.7cm) PWd0.8 (0.7-1.1cm)Aortic Cusp Exc.1.8 (1.5-2.0cm) LVDs2.2 (2.5-4.0cm) PWs1.3 cm Normal left ventricular chamber size, systolic function and wall motion. Left ventricular ejection fraction estimated to be 60 %. Mild left ventricular hypertrophy. Anterior Echo-free space, may be due to pericardial fat or effusion. Mild left atrial enlargement. Right cardiac chamber sizes are within normal limits. Mild focal aortic valve sclerosis with adequate cusp excursion. Mildly thickened mitral valve leaflets with normal excursion. Mild mitral annulus and aortic root calcification. Pulmonic valve not well visualized. Normal tricuspid valve structure. IVC at normal size and collapsing with respiration. A color flow and spectral Doppler study was performed and revealed: No aortic regurgitation. Mild mitral regurgitation. Mitral inflow indicate normal left ventricular diastolic function. Mild tricuspid regurgitation. Tricuspid systolic velocities suggests peak right ventricular systolic pressure of 23 mmHg. No pulmonic regurgitation present.
[2017-01-25 09:00] VITALS: BP 86/43
[2017-01-25] MEDS: Sensipar 30mg Tab ORAL SCH (09:55)
[2017-01-25] MEDS: Nephrovite tab (Rena-Vite) ORAL SCH (09:55)
[2017-01-25] MEDS: Fluconazole 100mg tab ORAL SCH (09:55)
[2017-01-25] MEDS: Midodrine 10mg tab ORAL SCH ×2 (09:56→13:24)
[2017-01-25] MEDS: Heparin 5000 units/ml inj SUBQ SCH (09:57)
[2017-01-25 10:00] LABS: ANION GAP 9 (5-15); CALCIUM 8.9 MG/DL (8.5-10.1); CARBON DIOXIDE 35 MMOL/L (21-32); CHLORIDE 96 MMOL/L (98-107); POTASSIUM 2.8 MMOL/L (3.5-5.1); SODIUM 140 MMOL/L (136-145)
[2017-01-25] MEDS: DiphenhydrAMINE 50mg/ml Inj IVP PRN (10:34)
--- NOTE | 2017-01-25 11:20 | General Progress Note ---
Assessment/Plan Status: stable Status Narrative just done with dialysis- Assessment/Plan status: ESRD Possible line infection . Permacath in groin Low BP today's labs done towards the end of HD , UNRELIABLE LYTES Plan: next dialysis 01/25 check cortisol level start midodrine for low bp stable from renal stand point for DC Subjective ROS Limited/Unobtainable: No Allergies: Coded Allergies: CEFAZOLIN (Verified Allergy, Unknown, 10/02/10) CIPROFLOXACIN (Verified Allergy, Unknown, 10/02/10) GENTAMICIN (Verified Allergy, Unknown, 10/02/10) LEVOFLOXACIN (Verified Allergy, Unknown, 10/02/10) PENICILLINS (Verified Allergy, Unknown, ITCH, 10/02/10) Objective Last 24 Hour Vital Signs Date Time Temp Pulse Resp B/P (MAP) Pulse Ox O2 Delivery O2 Flow Rate FiO2 01/25/17 09:00 97.0 83 18 86/43 Room Air 01/25/17 09:00 Room Air 01/25/17 05:30 Room Air 01/25/17 05:30 97.7 52 21 90/53 97 Room Air 01/25/17 04:00 97.5 50 20 97/58 98 Room Air 01/25/17 00:00 97.7 45 20 100/54 93 Room Air 01/24/17 20:00 97.3 50 20 103/62 96 Room Air 01/24/17 16:00 97.5 60 20 99/50 97 Room Air 01/24/17 12:00 97.3 59 20 99/59 95 Room Air Intake and Output 01/25/17 01/26/17 19:00 07:00 Output Total 2700 ml Balance -2700 ml Hemodialysis UF 2700 ml Laboratory Tests 01/25/17 05:45: White Blood Count 6.0, Red Blood Count 3.44L, Hemoglobin 10.5L, Hematocrit 31.7L , Mean Corpuscular Volume 92, Mean Corpuscular Hemoglobin 30.6, Mean Corpuscular Hemoglobin Concent 33.2, Red Cell Distribution Width 16.1H, Platelet Count 150, Mean Platelet Volume 7.0, Neutrophils (%) (Auto) 58.9, Lymphocytes (%) (Auto) 32.2, Monocytes (%) (Auto) 4.1, Eosinophils (%) (Auto) 3.6H, Basophils (%) (Auto) 1.2 01/25/17 09:05: Sodium Level 140, Potassium Level 2.8L, Chloride Level 96L, Carbon Dioxide Level 35H, Anion Gap 9, Blood Urea Nitrogen 24H, Creatinine 5.0H, Estimat Glomerular Filtration Rate 11.0, Glucose Level 88, Calcium Level 8.9 Height (Feet): 5 Height (Inches): 6.00 Weight (Pounds): 204 General Appearance: no apparent distress Objective no change in PE EDUARDO ROSE Jan 25, 2017 11:20
--- NOTE | 2017-01-25 11:43 | Internal Med Progress Note ---
Subjective Date of Service: Jan 25, 2017 Physician Name Ugalde,Shavonne Attending Physician Ash Henley MD Current Medications Medications (Trade) Dose Ordered Sig/Marcos Route PRN Reason Start Time Stop Time Status Last Admin Dose Admin Acetaminophen (Tylenol) 650 mg Q4H PRN ORAL Mild Pain (Pain Scale 1-3) 01/23/17 01:15 02/20/17 17:14 01/23/17 11:58 Albuterol/ Ipratropium (DuoNeb 0.5-3(2.5)mg/3ml) 3 ml Q4H PRN HHN Shortness of Breath 01/23/17 00:15 01/27/17 16:14 Chlorhexidine Gluconate (Nivia-Hex 2%) 1 applic DAILY@2000 TOPIC 01/25/17 20:00 02/24/17 19:59 Cinacalcet (Sensipar) 30 mg QOD ORAL 01/23/17 09:00 02/22/17 08:59 01/25/17 09:55 Dextrose (Dextrose 50%) STAT PRN IV Hypoglycemia 01/23/17 17:15 02/20/17 17:14 Diphenhydramine HCl (Benadryl) 50 mg Q4H PRN IVP Itching 01/23/17 01:15 02/20/17 17:14 01/25/17 10:34 Fluconazole (Diflucan) 100 mg DAILY ORAL 01/24/17 14:00 01/31/17 13:59 01/25/17 09:55 Heparin Sodium (Porcine) (Heparin 5000 units/ml) 5,000 units EVERY 12 HOURS SUBQ 01/23/17 09:00 02/20/17 20:59 01/25/17 09:57 Metoclopramide HCl (Reglan) 5 mg Q6H PRN IVP Nausea, Vomiting, Heartburn 01/23/17 01:15 02/21/17 07:14 Midodrine (Pro-Amatine) 10 mg THREE TIMES A DAY ORAL 01/23/17 13:00 02/22/17 12:59 01/25/17 09:56 Ondansetron HCl (Zofran) 4 mg Q4H PRN IVP Nausea & Vomiting 01/23/17 03:15 02/21/17 11:14 Pantoprazole (Protonix) 40 mg Q12HR ORAL 01/23/17 09:00 02/21/17 08:59 01/25/17 09:55 Promethazine HCl/ Codeine (Phenergan with Codeine) 5 ml Q4H PRN ORAL For Cough 01/23/17 00:15 02/21/17 16:14 Sevelamer Carbonate (Renvela) 1,600 mg THREE TIMES A DAY ORAL 01/23/17 09:00 02/20/17 17:59 01/25/17 09:56 Vancomycin HCl 500 mg/Dextrose 110 ml @ 110 mls/hr POSTHD IVPB 01/25/17 12:00 01/30/17 11:59 01/25/17 10:34 Vitamin B Complex/ Vit C/Folic Acid (Nephrovite) 1 tab DAILY ORAL 01/23/17 09:00 02/21/17 08:59 01/25/17 09:55 Zolpidem Tartrate (Ambien) 5 mg HSPRN PRN ORAL Insomnia 01/23/17 21:00 01/28/17 20:59 Allergies: Coded Allergies: CEFAZOLIN (Verified Allergy, Unknown, 10/02/10) CIPROFLOXACIN (Verified Allergy, Unknown, 10/02/10) GENTAMICIN (Verified Allergy, Unknown, 10/02/10) LEVOFLOXACIN (Verified Allergy, Unknown, 10/02/10) PENICILLINS (Verified Allergy, Unknown, ITCH, 10/02/10) ROS Limited/Unobtainable: No Constitutional: Reports: no symptoms HEENT: Reports: no symptoms Cardiovascular: Reports: no symptoms Respiratory: Reports: no symptoms Gastrointestinal/Abdominal: Reports: no symptoms Genitourinary: Reports: no symptoms Neurologic/Psychiatric: Reports: no symptoms Subjective 51 YO F admitted with line sepsis. Cover for Silvestre Lopez-Dr Henley. Objective Last Vital Signs Date Time Temp Pulse Resp B/P (MAP) Pulse Ox O2 Delivery O2 Flow Rate FiO2 01/25/17 09:00 97.0 83 18 86/43 Room Air 01/25/17 05:30 97 Laboratory Tests Test 01/25/17 05:45 01/25/17 09:05 White Blood Count 6.0 K/UL (4.8-10.8) Red Blood Count 3.44 M/UL (4.20-5.40) L Hemoglobin 10.5 G/DL (12.0-16.0) L Hematocrit 31.7 % (37.0-47.0) L Mean Corpuscular Volume 92 FL (80-99) Mean Corpuscular Hemoglobin 30.6 PG (27.0-31.0) Mean Corpuscular Hemoglobin Concent 33.2 G/DL (32.0-36.0) Red Cell Distribution Width 16.1 % (11.6-14.8) H Platelet Count 150 K/UL (150-450) Mean Platelet Volume 7.0 FL (6.5-10.1) Neutrophils (%) (Auto) 58.9 % (45.0-75.0) Lymphocytes (%) (Auto) 32.2 % (20.0-45.0) Monocytes (%) (Auto) 4.1 % (1.0-10.0) Eosinophils (%) (Auto) 3.6 % (0.0-3.0) H Basophils (%) (Auto) 1.2 % (0.0-2.0) Sodium Level 140 MMOL/L (136-145) Potassium Level 2.8 MMOL/L (3.5-5.1) L Chloride Level 96 MMOL/L (98-107) L Carbon Dioxide Level 35 MMOL/L (21-32) H Anion Gap 9 (5-15) Blood Urea Nitrogen 24 mg/dL (7-18) H Creatinine 5.0 MG/DL (0.55-1.30) H Estimat Glomerular Filtration Rate 11.0 mL/min (>60) Glucose Level 88 MG/DL (74-106) Calcium Level 8.9 MG/DL (8.5-10.1) Microbiology Date/Time Source Procedure Growth Status 01/23/17 09:05 Sputum Gram Stain - Final Complete 01/23/17 09:05 Sputum Sputum Culture - Final NORMAL UPPER RESPIRATORY ESTEPHANIE AT 48 ... Complete Intake and Output 01/25/17 01/26/17 19:00 07:00 Output Total 2700 ml Balance -2700 ml Hemodialysis UF 2700 ml Objective General Appearance: WD/WN, no apparent distress, alert, obese EENT: PERRL/EOMI, normal ENT inspection Neck: non-tender, normal alignment, supple, normal inspection Cardiovascular: normal peripheral pulses, normal rate, regular rhythm, no gallop/murmur, no JVD Respiratory/Chest: chest wall non-tender, lungs clear, normal breath sounds, no respiratory distress, no accessory muscle use Abdomen: normal bowel sounds, non tender, soft, no organomegaly, no mass Extremities: normal range of motion Neurologic: rn disease management II-XII grossly normal, no motor/sensory deficits Skin: normal pigmentation, warm/dry Assessment/Plan Problem List: (1) Anemia of renal disease (2) Hypoparathyroidism Assessment & Plan: S/P parathyroidectomy (3) ESRD (end stage renal disease) on dialysis Assessment & Plan: Hemodialysis per nephrology. (4) Line sepsis associated with dialysis catheter Assessment & Plan: See ID note. Await blood cultures. Cont IV vanco. Status: stable SHAVONNE UGALDE Jan 25, 2017 11:43
[2017-01-25] MEDS ORDERED: Vancomycin 500mg in D5W 110ml IVPB SCH (12:00)
[2017-01-25 12:33] VITALS: BP 90/53
[2017-01-25] MEDS ORDERED: VANCOMYCIN1 GM/2502 IVPB ×2 (12:52→12:59)
[2017-01-25] MEDS ORDERED: VANCOMYCIN HCL125 MG IVPB (12:59)
[2017-01-25] MEDS ORDERED: VANCOMYCIN1 GM/2001 IV (13:03)
--- NOTE | 2017-01-25 13:08 | Infectious Diseases Prog Note ---
Assessment/Plan Assessment/Plan Abx: IV Vancomycin 01/21- Assesment: High grade S. epi Bacteremia (positive at HD center)- likely 2ry to infected HD cath,, no vegetations on Echo. Poor IV access so line cannot be removed at this point. -Bcx 01/18 07/21 S.epi (Oxacillin susceptible) , repeat Bcx 01/22 NTD -CXR no acute disease -2d Echo 01/22: no vegetations seen, no significant valve abnormalities Afebrile/no leukocytosis ESRD on HD Failed renal transplant x2 Plan: -Ok to discharge home on IV Vancomycin after HD on HD days for a total of 3 weeks from 1st negative Bcx 01/21; end date 02/10/2017 -given poor alternative access, S.epi and repeat Bcx NTD, no vegetations on echo, it is acceptable to treat through without removal of line -Should have repeat Bcx to be done 1 week after Abx treatment is done -If bacteremia, were to recur, then line may need to be removed and will need MICHAEL. -f/u final Bcx Thank you for this consultation. Will continue to follow along with you. Discussed with RN. Subjective Allergies: Coded Allergies: CEFAZOLIN (Verified Allergy, Unknown, 10/02/10) CIPROFLOXACIN (Verified Allergy, Unknown, 10/02/10) GENTAMICIN (Verified Allergy, Unknown, 10/02/10) LEVOFLOXACIN (Verified Allergy, Unknown, 10/02/10) PENICILLINS (Verified Allergy, Unknown, ITCH, 10/02/10) Subjective afebrile VSS Bcx here NTD no leukocytosis Objective Vital Signs Last 24 Hour Vital Signs Date Time Temp Pulse Resp B/P (MAP) Pulse Ox O2 Delivery O2 Flow Rate FiO2 01/25/17 12:33 98.1 64 18 90/53 93 Room Air 01/25/17 09:00 97.0 83 18 86/43 Room Air 01/25/17 09:00 Room Air 01/25/17 05:30 Room Air 01/25/17 05:30 97.7 52 21 90/53 97 Room Air 01/25/17 04:00 97.5 50 20 97/58 98 Room Air 01/25/17 00:00 97.7 45 20 100/54 93 Room Air 01/24/17 20:00 97.3 50 20 103/62 96 Room Air 01/24/17 16:00 97.5 60 20 99/50 97 Room Air Height (Feet): 5 Height (Inches): 6.00 Weight (Pounds): 204 Objective General: The patient is a well-developed and well-nourished female, in no apparent distress. HEENT: Eyes, pupils are equal and responsive to light and accommodation.Extraocular movements are intact. NECK: Supple without lymphadenopathy. Chest: Lungs are clear to auscultation bilaterally without wheezes or rales. Cardiovascular: Regular rate. S1 and S2 normal without murmurs, rubs, or gallops. Abdomen: Soft, nontender, and nondistended. Positive bowel sounds. No evidence of hepatosplenomegaly. Currently, no rebound or guarding noted. EXTREMITIES: Negative for clubbing, cyanosis, or edema. L femoral HD cath site with no signs of infection, non tender Neurologic: grossly intact without focal SKIN: no rashes Microbiology Date/Time Source Procedure Growth Status 01/23/17 09:05 Sputum Gram Stain - Final Complete 01/23/17 09:05 Sputum Sputum Culture - Final NORMAL UPPER RESPIRATORY ESTEPHANIE AT 48 ... Complete Laboratory Tests Test 01/25/17 05:45 01/25/17 09:05 White Blood Count 6.0 K/UL (4.8-10.8) Red Blood Count 3.44 M/UL (4.20-5.40) L Hemoglobin 10.5 G/DL (12.0-16.0) L Hematocrit 31.7 % (37.0-47.0) L Mean Corpuscular Volume 92 FL (80-99) Mean Corpuscular Hemoglobin 30.6 PG (27.0-31.0) Mean Corpuscular Hemoglobin Concent 33.2 G/DL (32.0-36.0) Red Cell Distribution Width 16.1 % (11.6-14.8) H Platelet Count 150 K/UL (150-450) Mean Platelet Volume 7.0 FL (6.5-10.1) Neutrophils (%) (Auto) 58.9 % (45.0-75.0) Lymphocytes (%) (Auto) 32.2 % (20.0-45.0) Monocytes (%) (Auto) 4.1 % (1.0-10.0) Eosinophils (%) (Auto) 3.6 % (0.0-3.0) H Basophils (%) (Auto) 1.2 % (0.0-2.0) Sodium Level 140 MMOL/L (136-145) Potassium Level 2.8 MMOL/L (3.5-5.1) L Chloride Level 96 MMOL/L (98-107) L Carbon Dioxide Level 35 MMOL/L (21-32) H Anion Gap 9 (5-15) Blood Urea Nitrogen 24 mg/dL (7-18) H Creatinine 5.0 MG/DL (0.55-1.30) H Estimat Glomerular Filtration Rate 11.0 mL/min (>60) Glucose Level 88 MG/DL (74-106) Calcium Level 8.9 MG/DL (8.5-10.1) Current Medications Medications (Trade) Dose Ordered Sig/Marcos Route PRN Reason Start Time Stop Time Status Last Admin Dose Admin Acetaminophen (Tylenol) 650 mg Q4H PRN ORAL Mild Pain (Pain Scale 1-3) 01/23/17 01:15 02/20/17 17:14 01/23/17 11:58 Albuterol/ Ipratropium (DuoNeb 0.5-3(2.5)mg/3ml) 3 ml Q4H PRN HHN Shortness of Breath 01/23/17 00:15 01/27/17 16:14 Chlorhexidine Gluconate (Nivia-Hex 2%) 1 applic DAILY@2000 TOPIC 01/25/17 20:00 02/24/17 19:59 Cinacalcet (Sensipar) 30 mg QOD ORAL 01/23/17 09:00 02/22/17 08:59 01/25/17 09:55 Dextrose (Dextrose 50%) STAT PRN IV Hypoglycemia 01/23/17 17:15 02/20/17 17:14 Diphenhydramine HCl (Benadryl) 50 mg Q4H PRN IVP Itching 01/23/17 01:15 02/20/17 17:14 01/25/17 10:34 Fluconazole (Diflucan) 100 mg DAILY ORAL 01/24/17 14:00 01/31/17 13:59 01/25/17 09:55 Heparin Sodium (Porcine) (Heparin 5000 units/ml) 5,000 units EVERY 12 HOURS SUBQ 01/23/17 09:00 02/20/17 20:59 01/25/17 09:57 Metoclopramide HCl (Reglan) 5 mg Q6H PRN IVP Nausea, Vomiting, Heartburn 01/23/17 01:15 02/21/17 07:14 Midodrine (Pro-Amatine) 10 mg THREE TIMES A DAY ORAL 01/23/17 13:00 02/22/17 12:59 01/25/17 09:56 Ondansetron HCl (Zofran) 4 mg Q4H PRN IVP Nausea & Vomiting 01/23/17 03:15 02/21/17 11:14 Pantoprazole (Protonix) 40 mg Q12HR ORAL 01/23/17 09:00 02/21/17 08:59 01/25/17 09:55 Promethazine HCl/ Codeine (Phenergan with Codeine) 5 ml Q4H PRN ORAL For Cough 01/23/17 00:15 02/21/17 16:14 Sevelamer Carbonate (Renvela) 1,600 mg THREE TIMES A DAY ORAL 01/23/17 09:00 02/20/17 17:59 01/25/17 09:56 Vancomycin HCl 500 mg/Dextrose 110 ml @ 110 mls/hr POSTHD IVPB 01/25/17 12:00 01/30/17 11:59 01/25/17 10:34 Vitamin B Complex/ Vit C/Folic Acid (Nephrovite) 1 tab DAILY ORAL 01/23/17 09:00 02/21/17 08:59 01/25/17 09:55 Zolpidem Tartrate (Ambien) 5 mg HSPRN PRN ORAL Insomnia 01/23/17 21:00 01/28/17 20:59 Ashlee Molina M.D. Jan 25, 2017 13:08
[2017-01-25] MEDS ORDERED: Vancomycin 1250mg/D5W 250ml IVPB ONE (16:00)
--- NOTE | 2017-01-25 19:18 | Pulmonology Progress Note ---
Assessment/Plan Problems: (1) Dyspnea (2) ACS (acute coronary syndrome) (3) ESRF (end stage renal failure) (4) Acute bronchitis Assessment/Plan iv abx check cultures respiratory treatment titrate fio2 dc planning with iv abx after HD Subjective ROS Limited/Unobtainable: No Constitutional: Reports: no symptoms HEENT: Repors: no symptoms Respiratory: Reports: no symptoms Cardiovascular: Reports: no symptoms Allergies: Coded Allergies: CEFAZOLIN (Verified Allergy, Unknown, 10/02/10) CIPROFLOXACIN (Verified Allergy, Unknown, 10/02/10) GENTAMICIN (Verified Allergy, Unknown, 10/02/10) LEVOFLOXACIN (Verified Allergy, Unknown, 10/02/10) PENICILLINS (Verified Allergy, Unknown, ITCH, 10/02/10) Objective Last 24 Hour Vital Signs Date Time Temp Pulse Resp B/P (MAP) Pulse Ox O2 Delivery O2 Flow Rate FiO2 01/25/17 12:33 98.1 64 18 90/53 93 Room Air 01/25/17 09:00 97.0 83 18 86/43 Room Air 01/25/17 09:00 Room Air 01/25/17 05:30 Room Air 01/25/17 05:30 97.7 52 21 90/53 97 Room Air 01/25/17 04:00 97.5 50 20 97/58 98 Room Air 01/25/17 00:00 97.7 45 20 100/54 93 Room Air 01/24/17 20:00 97.3 50 20 103/62 96 Room Air Intake and Output 01/25/17 01/26/17 19:00 07:00 Output Total 2700 ml Balance -2700 ml Hemodialysis UF 2700 ml General Appearance: WD/WN HEENT: normocephalic Respiratory/Chest: chest wall non-tender, lungs clear Abdomen: soft, non tender Extremities: no cyanosis Skin: no rash 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 Complete Laboratory Tests 01/25/17 05:45: White Blood Count 6.0, Red Blood Count 3.44L, Hemoglobin 10.5L, Hematocrit 31.7L , Mean Corpuscular Volume 92, Mean Corpuscular Hemoglobin 30.6, Mean Corpuscular Hemoglobin Concent 33.2, Red Cell Distribution Width 16.1H, Platelet Count 150, Mean Platelet Volume 7.0, Neutrophils (%) (Auto) 58.9, Lymphocytes (%) (Auto) 32.2, Monocytes (%) (Auto) 4.1, Eosinophils (%) (Auto) 3.6H, Basophils (%) (Auto) 1.2 01/25/17 09:05: Sodium Level 140, Potassium Level 2.8L, Chloride Level 96L, Carbon Dioxide Level 35H, Anion Gap 9, Blood Urea Nitrogen 24H, Creatinine 5.0H, Estimat Glomerular Filtration Rate 11.0, Glucose Level 88, Calcium Level 8.9 GABI DENNEY Jan 25, 2017 19:18
[2017-01-25] MEDS ORDERED: Dyna-Hex 2% Top Sol 2oz TOPIC SCH (20:00)
--- NOTE | 2017-01-27 07:35 | Discharge Summary ---
Discharge Summary Hospital Course Date of Admission Jan 21, 2017 at 13:06 Date of Discharge Jan 25, 2017 at 15:12 Admitting Diagnosis dyspnea, renal failure HPI Suyapa Fuller is a 51 year old female who was admitted on Jan 21, 2017 at 13: 06 for Dyspnea, Renal Failure Hospital Course dc summary #[id number] Discharge Medications Continued Medications: Cinacalcet* (Sensipar*) 30 Mg Tablet 30 MG ORAL 3XW, TAB Omeprazole (Omeprazole) 40 Mg Capsule.dr 40 MG PO DAILY Sevelamer Carbonate (Renvela) 800 Mg Tablet 1600 MG ORAL THREE TIMES A DAY, TAB Vancomycin/0.9 % Sod Chloride (Vancomycin 1 G/200Ml-0.9% NaCl) 1 Gm/200 Ml Froz.piggy 0 IV pharm to dose for on HD days til 02/10, BAG Vitamin B Cmplx/Vit C/Folic AC (Nephro-Dmitry Tablet) 0.8 Mg Tablet 1 TAB ORAL DAILY, #30 TAB 0 Refills Zolpidem Tartrate* (Ambien*) 10 Mg Tablet 10 MG PO HS PRN Discharge Condition Upon Discharge: stable Discharge Disposition Patient was discharged to Home () Discharge Diagnoses: Discharge Instructions Discharge Instructions Special Instructions I have been assigned to complete a D/C Summary on this account. I was not involved in the patient management Johanne King NP (Vanchtein) Jan 27, 2017 07:35
--- NOTE | 2017-01-28 00:46 | Discharge Summary 2 SIG ---
DATE OF ADMISSION: 01/21/2017 DATE OF DISCHARGE: 01/25/2017 REASON FOR ADMISSION: 51-year-old female with past medical history of failed renal transplant x2, status post parathyroidectomy, hypertension, diabetes, asthma, end-stage renal disease, pacemaker, on hemodialysis for 35 years. was sent to emergency room for evaluation due to the positive blood culture. Apparently, first set of blood cultures from 01/18 ,4 out of 4, drawn at hemodialysis center, was positive for Staph epidermidis. The patient was given one dose of vancomycin after hemodialysis ( after blood culture results became available) and was sent to emergency department for further evaluation. In addition, in the emergency department, she complained of generalized weakness, dyspnea on exertion, and some chest heaviness. Troponin was negative. EKG revealed normal sinus rhythm, no acute ischemic changes. Chest x-ray revealed no acute cardiopulmonary pathology. No leukocytosis. Lactic acid within normal limits- 1.7. BUN and creatinine were consistent with diagnosis of end-stage renal disease, 3 9 and 9.5 respectively. Mild anemia, hemoglobin -10.8 and hematocrit- 33.6. The patient was admitted for further management. ADMITTING DIAGNOSES: 1. Bacteremia, possible line sepsis. 2. End-stage renal disease. 3. Dyspnea. 4. Acute bronchitis. HOSPITAL STAY: The patient was admitted. ID consult was requested. The patient was started empirically on vancomycin after dialysis and other set of blood culture was drawn. Blood culture from 01/21/2017 were negative. Chest x-ray was negative. Sputum culture was negative. Echocardiogram revealed no evidence of vegetation, preserved ejection fraction of 60%, right ventricular pressure of 23 with evidence of mild left ventricular hypertrophy. According to Infectious Diseases specialist the patient will need a total of three weeks of vancomycin after hemodialysis as outpatient starting from the first negative blood culture from 01/21/2017 with end of the treatment - 02/10/2017. Given poor alternative access, it is acceptable per ID to treat without removal the line. Blood culture needs to be repeated in one week after treatment. However, according to ID, if bacteremia recur then line may need to be removed and patient will need MICHAEL. [employer] Milling Machine Tender followed the patient for hemodialysis. While in the hospital, renal parameters and electrolytes were closely monitored and optimized as needed. Supplemental oxygen provided as needed. Pulse oximetry was stable on room air. Pulmonary toilet was ordered on as needed basis. DVT prophylaxis provided. Blood pressure was maintained with midodrine and was at the baseline. GI prophylaxis provided. Antitussive provided as needed. The patient was stable for discharge home with outpatient hemodialysis and vancomycin after dialysis for three weeks starting on 01/21/2017 with end of the therapy 02/10/2017. Hemoglobin and hematocrit were closely monitored. Anemia workup revealed anemia of chronic disease with stable iron. FINAL DIAGNOSES: 1. Staphylococcus epidermidis bacteremia (positive at hemodialysis center). 2. Possible line sepsis. 3. Acute bronchitis. 4. End-stage renal disease, on hemodialysis. 5. Anemia of chronic renal disease. 6. Hyperparathyroidism. Ash Henley M.D. I have been assigned to dictate discharge summary on this account and I was not involved in the patient's management. Johanne King (Vanchtein) N.PLivan DR: MAURICE JOB#: [id number] CC: KAVEH
--- NOTE | 2017-01-28 23:29 | Cardiology Report ---
APPROVED REPORT EKG Measurement Heart [id number] VA [id number] [id number] Normal sinus rhythm Low voltage QRS Nonspecific T wave abnormality Prolonged QT Abnormal ECG
== END 2017-01-25 15:12 | disposition home or self-care (01) | DRG 314 ==
LOC: EMR 12:06 → 2E 13:06 → EDBEDREQ 13:46 → 4E 01-22 23:40
PROC: 5A1D70Z Performance of Urinary Filtration, Intermittent, Less than 6 Hours Per Day (ICD-10-PCS; principal; 2017-01-22)
DX: T82.7XXA Infection and inflammatory reaction due to other cardiac and vascular devices, implants and grafts, initial encounter (principal); N18.6 End stage renal disease; A41.1 Sepsis due to other specified staphylococcus; Z99.2 Dependence on renal dialysis; Y84.8 Other medical procedures as the cause of abnormal reaction of the patient, or of later complication, without mention of misadventure at the time of the procedure; Z88.1 Allergy status to other antibiotic agents; Z88.0 Allergy status to penicillin; J20.9 Acute bronchitis, unspecified; D63.1 Anemia in chronic kidney disease; E89.2 Postprocedural hypoparathyroidism
CPT/HCPCS: 36415; 71010; 80048; 80053; 80061; 80202; 82550; 82553; 82607; 82728; 82746; 83036; 83540; 83550; 83605; 83735; 83880; 84100; 84443; 84484; 84550; 85025; 86140; 87040; 87070; 87081; 87205; 93005; 93306; 99285; J2405; J2765

== ENCOUNTER 2017-04-24 12:13 | Emergency (ER) | payer MEDICARE, OTHER ==
[~2017-04-24] VITALS: Ht 167.6 cm; Wt 89.8 kg
[~2017-04-24 12:13] MED LIST changes: +AMBIEN10 MG ORAL; +NEPHROVITE1 TAB ORAL; +OMEPRAZOLE20 M2 ORAL; +RENVELA800 MG ORAL; +SENSIPAR30 MG ORAL; +VANCOMYCIN HCL125 MG IVPB; +VANCOMYCIN1 GM/2001 IV; +VANCOMYCIN1 GM/2502 IVPB
[2017-04-24 13:00] VITALS: BP 94/62
[2017-04-24 13:34] LABS: BASOPHILS % (AUTO) 1.3 % (0.0-2.0); EOSINOPHILS % (AUTO) 18.1 % (0.0-3.0); HEMATOCRIT 44.6 % (37.0-47.0); HEMOGLOBIN 13.7 G/DL (12.0-16.0); LYMPHOCYTES % (AUTO) 29.5 % (20.0-45.0); MEAN CORPUSCULAR VOLUME 101 FL (80-99); MONOCYTES % (AUTO) 6.3 % (1.0-10.0); NEUTROPHILS % (AUTO) 44.8 % (45.0-75.0); PLATELET COUNT 182 K/UL (150-450); RED CELL DISTRIBUTION WIDTH 14.8 % (11.6-14.8); WHITE BLOOD COUNT 5.2 K/UL (4.8-10.8)
[2017-04-24 13:51] LABS: ANION GAP 14 mmol/L (5-15); BLOOD UREA NITROGEN 17 mg/dL (7-18); CALCIUM 9.3 MG/DL (8.5-10.1); CARBON DIOXIDE 23 MMOL/L (21-32); CHLORIDE 101 MMOL/L (98-107); CREATININE 8.3 MG/DL (0.55-1.30); POTASSIUM 5.2 MMOL/L (3.5-5.1); SODIUM 138 MMOL/L (136-145)
[2017-04-24] MEDS ORDERED: VENTOLIN HFA18 GM INH (14:00)
[2017-04-24 14:06] LABS: ALBUMIN 3.7 G/DL (3.4-5.0); ALBUMIN/GLOBULIN RATIO 0.7 (1.0-2.7); ALKALINE PHOSPHATASE 197 U/L (46-116); ASPARTATE AMINO TRANSFERASE 44 U/L (15-37); BILIRUBIN,TOTAL 0.4 MG/DL (0.2-1.0); CKMB < 0.5 NG/ML (0.0-3.6); CREATINE KINASE 103 U/L (26-308)
[2017-04-24 14:15] VITALS: BP 87/73
--- NOTE | 2017-04-24 14:29 | Emergency Room Report ---
History of Present Illness General Chief Complaint: Dyspnea/Respdistress Source: Patient Present Illness HPI 52yof walks to ER stating that her doctor sent her to evaluate for pneumonia History of present illness is about one month of intermittent cough Denies fever/chills, myalgias, chest pain Was given Rx Z-pack but didnt fill Rx yet Has taken Albuterol previously she had completed dialysis yesterday Allergies: Coded Allergies: CEFAZOLIN (Verified Allergy, Unknown, 10/02/10) CIPROFLOXACIN (Verified Allergy, Unknown, 10/02/10) GENTAMICIN (Verified Allergy, Unknown, 10/02/10) LEVOFLOXACIN (Verified Allergy, Unknown, 10/02/10) PENICILLINS (Verified Allergy, Unknown, ITCH, 10/02/10) Patient History Past Medical History: renal disease, dialysis Past Surgical History: none Pertinent Family History: none Social History: Denies: smoking, alcohol use, drug use Last Menstrual Period: 20 yrs ago. Now: No Immunizations: UTD Reviewed Nursing Documentation: PMH: Agreed, PSxH: Agreed Nursing Documentation-PMH Hx Cardiac Problems: Yes - Hypotension Hx Pacemaker: Yes Hx Asthma: Yes Hx Diabetes: Yes Hx Cancer: No Hx Gastrointestinal Problems: Yes Hx Dialysis: Yes - MWF, last dialysis 04/23/17. Review of Systems All Other Systems: negative except mentioned in HPI Physical Exam Vital Signs Date Time Temp Pulse Resp B/P (MAP) Pulse Ox O2 Delivery O2 Flow Rate FiO2 04/24/17 12:23 97.3 87 19 84/62 89 Room Air Sp02 EP Interpretation: reviewed, normal General Appearance: normal inspection, well appearing, no apparent distress, alert, GCS 15, non-toxic Head: normocephalic, atraumatic Eyes: bilateral eye PERRL, bilateral eye EOMI ENT: normal ENT inspection, hearing grossly normal, normal pharynx, no angioedema, normal voice, TMs + canals normal, uvula midline, moist mucus membranes Neck: normal inspection, full range of motion, supple, thyroid normal, no meningismus, no bony tend Respiratory: normal inspection, lungs clear, normal breath sounds, no rhonchi, no respiratory distress, no retraction, no accessory muscle use, no wheezing, speaking full sentences Cardiovascular #1: regular rate, rhythm, no edema, no JVD, normal capillary refill Gastrointestinal: normal inspection, normal bowel sounds, non tender, soft, no mass, no peritonitis, non-distended, no guarding, no hernia, no pulsatile mass Genitourinary: no CVA tenderness Musculoskeletal: normal inspection, back normal, normal range of motion, no calf tenderness, pelvis stable, Eris's Sign negative Neurologic: normal inspection, alert, oriented x3, responsive, television reporter III-XII nml as tested, motor strength/tone normal, cerebellar normal, normal gait, speech normal Psychiatric: normal inspection, judgement/insight normal, mood/affect normal, no suicidal/homicidal ideation, no delusions Skin: normal inspection, normal color, no rash Lymphatic: normal inspection, no adenopathy Medical Decision Making Diagnostic Impression: Primary Impression: Acute bronchitis ER Course vital signs are stable, afebrile. Lungs clear to auscultation Chest x-ray negative for pneumonia or pulmonary congestion Serum creatinine is 8, with baseline Potassium is normal advised patient take azithromycin she was arty prescribed Will give Ventolin for presumed bronchitis ER course: Patient has remained stable during ED stay. Disposition: Patient is to be discharged to home. Prescriptions given are ventolin Patient is instructed to follow up with their primary care doctor within 5 days. Strict return precautions discussed with patient such as fever, chills, worsening/severe pain, nausea, vomiting, which may indicate severe illness. Patient verbalizes understanding and agrees with plan. Please note that this Emergency Department Report was dictated using [employer] technology software, occasionally this can lead to erroneous entry secondary to interpretation by the dictation equipment EKG Diagnostic Results Rate: normal Rhythm: NSR ST Segments: no acute changes ASA given to the pt in ED: No Rhythm Strip Diag. Results EP Interpretation: yes Rate: 65 Rhythm: NSR, no PVC's, no ectopy Chest X-Ray Diagnostic Results Chest X-Ray Diagnostic Results : Chest X-Ray Ordered: Yes # of Views/Limited/Complete: 1 View Indication: Shortness of Breath EP Interpretation: Yes Interpretation: no consolidation, no effusion, no pneumothorax, no acute cardiopulmonary disease Impression: No acute disease Electronically Signed by: Dr Kate Vora MD Last Vital Signs Date Time Temp Pulse Resp B/P (MAP) Pulse Ox O2 Delivery O2 Flow Rate FiO2 04/24/17 14:15 97.3 75 17 87/73 94 Room Air Status: improved Disposition: HOME, SELF-CARE Condition: Improved Scripts Albuterol Sulfate (VENTOLIN HFA) 18 Gm Hfa.aer.ad 1 PUFF INH EVERY 6 HOURS for SOB, cough, #18 GM 0 Refills Prov: KATE VORA M.D. 04/24/17 Referrals: Ash Henley MD (PCP) Patient Instructions: Shortness of Breath, [id number] Additional Instructions: - Use ventolin 2-3x a day for cough, SOB - Follow up with your doctor in 2-3 days KATE VORA M.D. Apr 24, 2017 14:29
[2017-04-24 14:32] LABS: ALANINE AMINOTRANSFERASE 41 U/L (12-78)
--- NOTE | 2017-04-27 00:01 | Cardiology Report ---
APPROVED REPORT EKG Measurement Heart [id number] ME 140P55 [id number] Normal sinus rhythm Low voltage QRS T wave abnormality, consider anterior ischemia Abnormal ECG
--- NOTE | 2017-04-27 14:52 | Diagnostic Imaging Report ---
Indication: Shortness of breath Technique: XRAY Chest 1v Comparison: 01/21/2017 Findings: Cardiac silhouette is stable. There is a retrocardiac density suggestive of hiatal hernia. Right atrial catheter from the IVC is noted. There is no gross consolidation or pleural effusion. Osseous structures are stable. Clips are noted of the neck and bilateral upper extremities. Impression: No obvious acute cardiopulmonary disease. Retrocardiac density could represent a hiatal hernia. Clinical correlation recommended. Further evaluation recommended.
== END 2017-04-24 14:15 | disposition home or self-care (01) ==
LOC: EMR 13:10
DX: J20.9 Acute bronchitis, unspecified (principal); E11.9 Type 2 diabetes mellitus without complications; J45.909 Unspecified asthma, uncomplicated; Z88.0 Allergy status to penicillin; Z88.8 Allergy status to other drugs, medicaments and biological substances
CPT/HCPCS: 36415; 71045; 80053; 82550; 82553; 83880; 84484; 85025; 93005; 99283

== ENCOUNTER 2017-04-29 10:24 | Inpatient (IN) | payer MEDICARE, OTHER ==
[~2017-04-29] VITALS: Ht 162.6 cm; Wt 79.4 kg
[~2017-04-29 10:24] MED LIST changes: +VENTOLIN HFA18 GM INH
[2017-04-29 10:41] VITALS: BP 90/56
[2017-04-29 11:32] VITALS: BP 91/56
[2017-04-29] MEDS ORDERED: Albuterol ud Inhalation HHN ONE (11:45)
--- NOTE | 2017-04-29 12:28 | Diagnostic Imaging Report ---
Indication: Cough Comparison: 04/24/2017 A single view chest radiograph was obtained. Findings: Lungs remain clear. Hiatal hernia is present. There is a tube projected over the mid chest. Surgical clips at the base of the neck, both axillae and arms noted. IMPRESSION: No acute cardiopulmonary disease.
[2017-04-29 14:01] LABS: HEMATOCRIT 42.4 % (37.0-47.0); HEMOGLOBIN 13.1 G/DL (12.0-16.0); MEAN CORPUSCULAR VOLUME 101 FL (80-99); PLATELET COUNT 148 K/UL (150-450); RED BLOOD COUNT 4.19 M/UL (4.20-5.40); RED CELL DISTRIBUTION WIDTH 15.3 % (11.6-14.8); WHITE BLOOD COUNT 5.6 K/UL (4.8-10.8)
[2017-04-29 14:06] LABS: ANION GAP 14 mmol/L (5-15); BLOOD UREA NITROGEN 25 mg/dL (7-18); CALCIUM 9.8 MG/DL (8.5-10.1); CARBON DIOXIDE 25 MMOL/L (21-32); CHLORIDE 100 MMOL/L (98-107); CREATININE 9.7 MG/DL (0.55-1.30); POTASSIUM 4.2 MMOL/L (3.5-5.1); SODIUM 139 MMOL/L (136-145)
[2017-04-29 14:17] LABS: ALANINE AMINOTRANSFERASE 26 U/L (12-78); ALBUMIN 3.8 G/DL (3.4-5.0); ALBUMIN/GLOBULIN RATIO 0.8 (1.0-2.7); ALKALINE PHOSPHATASE 171 U/L (46-116); ASPARTATE AMINO TRANSFERASE 19 U/L (15-37); BILIRUBIN,TOTAL 0.3 MG/DL (0.2-1.0)
[2017-04-29 15:35] VITALS: BP 93/58
--- NOTE | 2017-04-29 15:59 | Emergency Room Report ---
History of Present Illness General Chief Complaint: Flu Like Symptoms Source: Patient Present Illness HPI The patient states that for the las week she has had shortness of breath and fatigue primarily with exertion. She states that she does have ESRD, but is compliant with dialysis. She was had dialysis yesterday per her normal schedule. She has had some intermittent cough. She denies f/c/s, sputum production. She denies CP. She denies abd pain. She states that she becomes sob with walking from one side of a room to the other. She states that this is not typical for her. She states that she was seen for these same symptoms several days ago and was diagnosed with bronchitis and given an inhaler but states that her sx have not improved. Allergies: Coded Allergies: CEFAZOLIN (Verified Allergy, Unknown, 10/02/10) CIPROFLOXACIN (Verified Allergy, Unknown, 10/02/10) GENTAMICIN (Verified Allergy, Unknown, 10/02/10) LEVOFLOXACIN (Verified Allergy, Unknown, 10/02/10) PENICILLINS (Verified Allergy, Unknown, ITCH, 10/02/10) Uncoded Allergies: CONTRAST MEDIA (Adverse Reaction, Mild, MILD ITCHING AFTER CONTRAST MEDIA, 04/30/17) Patient History Past Medical History: see triage record, DM, CAD, asthma, GERD, renal disease, dialysis Social History: Denies: smoking, alcohol use, drug use Reviewed Nursing Documentation: PMH: Agreed, PSxH: Agreed Nursing Documentation-PMH Hx Cardiac Problems: Yes - Hypotension Hx Pacemaker: Yes Hx Asthma: Yes Hx Diabetes: Yes Hx Cancer: No Hx Gastrointestinal Problems: Yes Hx Dialysis: Yes - MWF, last dialysis 04/23/17. Review of Systems All Other Systems: negative except mentioned in HPI Physical Exam Vital Signs Date Time Temp Pulse Resp B/P (MAP) Pulse Ox O2 Delivery O2 Flow Rate FiO2 04/29/17 10:39 97.2 94 20 90/56 99 Room Air 04/29/17 11:42 21 Sp02 EP Interpretation: reviewed, normal General Appearance: no apparent distress, alert, GCS 15, non-toxic Head: normocephalic, atraumatic Eyes: bilateral eye normal inspection, bilateral eye PERRL ENT: hearing grossly normal, normal pharynx, no angioedema, normal voice Neck: full range of motion, supple/symm/no masses Respiratory: chest non-tender, lungs clear, normal breath sounds, no respiratory distress, no retraction, no accessory muscle use, speaking full sentences Cardiovascular #1: regular rate, rhythm, no edema Gastrointestinal: normal bowel sounds, non tender, soft, non-distended, no guarding, no rebound Musculoskeletal: back normal, gait/station normal, normal range of motion, non- tender Neurologic: alert, oriented x3, responsive, motor strength/tone normal, sensory intact, speech normal Psychiatric: judgement/insight normal, memory normal, mood/affect normal, no suicidal/homicidal ideation Skin: normal color, no rash, warm/dry, well hydrated Medical Decision Making Diagnostic Impression: Primary Impression: Dyspnea Additional Impression: ESRD (end stage renal disease) on dialysis ER Course This patient has ongoing and worsening dyspnea on exertion. There is no e/o pneumonia or wheezing on exam. Troponin and EKG are unremarkable. CXR shows no e/o CHF. This patient will be admitted for further w/u of LOPEZ. DD: Unstable angina, viral syndrome, PE. She is admitted to telemetry. Laboratory Tests Test 04/29/17 13:40 White Blood Count 5.6 K/UL (4.8-10.8) Red Blood Count 4.19 M/UL (4.20-5.40) L Hemoglobin 13.1 G/DL (12.0-16.0) Hematocrit 42.4 % (37.0-47.0) Mean Corpuscular Volume 101 FL (80-99) H Mean Corpuscular Hemoglobin 31.3 PG (27.0-31.0) H Mean Corpuscular Hemoglobin Concent 30.9 G/DL (32.0-36.0) L Red Cell Distribution Width 15.3 % (11.6-14.8) H Platelet Count 148 K/UL (150-450) L Mean Platelet Volume 9.7 FL (6.5-10.1) Neutrophils (%) (Auto) % (45.0-75.0) Lymphocytes (%) (Auto) % (20.0-45.0) Monocytes (%) (Auto) % (1.0-10.0) Eosinophils (%) (Auto) % (0.0-3.0) Basophils (%) (Auto) % (0.0-2.0) Differential Total Cells Counted 100 Neutrophils % (Manual) 47 % (45-75) Lymphocytes % (Manual) 24 % (20-45) Monocytes % (Manual) 6 % (1-10) Eosinophils % (Manual) 23 % (0-3) H Basophils % (Manual) 0 % (0-2) Band Neutrophils 0 % (0-8) Platelet Estimate Adequate Platelet Morphology Normal Clumped Platelets 1+ Hypochromasia 1+ Macrocytosis 1+ Sodium Level 139 MMOL/L (136-145) Potassium Level 4.2 MMOL/L (3.5-5.1) Chloride Level 100 MMOL/L (98-107) Carbon Dioxide Level 25 MMOL/L (21-32) Anion Gap 14 mmol/L (5-15) Blood Urea Nitrogen 25 mg/dL (7-18) H Creatinine 9.7 MG/DL (0.55-1.30) H Estimate Glomerular Filtration Rate 5.1 mL/min (>60) Glucose Level 85 MG/DL (74-106) Calcium Level 9.8 MG/DL (8.5-10.1) Total Bilirubin 0.3 MG/DL (0.2-1.0) Aspartate Amino Transferase (AST) 19 U/L (15-37) Alanine Aminotransferase (ALT) 26 U/L (12-78) Alkaline Phosphatase 171 U/L (46-116) H Troponin I 0.000 ng/mL (0.000-0.056) Pro-B-Type Natriuretic Peptide 1077 pg/mL (0-125) H Total Protein 8.5 G/DL (6.4-8.2) H Albumin 3.8 G/DL (3.4-5.0) Globulin 4.7 g/dL Albumin/Globulin Ratio 0.8 (1.0-2.7) L Microbiology Date/Time Source Procedure Growth Status 04/29/17 11:25 Nasal Nares Influenza Types A,B Antigen (DORON) - Final Complete EKG Diagnostic Results Rate: normal Rhythm: other - SR w/ PACs, Prolonged Qt. Rhythm Strip Diag. Results EP Interpretation: yes Rate: 70's Rhythm: no PVC's, no ectopy Chest X-Ray Diagnostic Results Chest X-Ray Diagnostic Results : Chest X-Ray Ordered: Yes # of Views/Limited/Complete: 1 View Indication: Shortness of Breath EP Interpretation: Yes Interpretation: no consolidation, no effusion, no pneumothorax, no acute cardiopulmonary disease Impression: No acute disease Electronically Signed by: Aura Last Vital Signs Date Time Temp Pulse Resp B/P (MAP) Pulse Ox O2 Delivery O2 Flow Rate FiO2 04/29/17 15:35 79 20 93/58 99 Room Air 04/29/17 11:57 21 04/29/17 10:41 97.2 Disposition: ADMITTED INPATIENT Condition: Stable Referrals: Ash Henley MD (PCP) LETY NELSON D.O. Apr 29, 2017 15:59
[2017-04-29] MEDS ORDERED: Albuterol/Ipratropium 3ml neb HHN PRN (17:00)
[2017-04-29] MEDS ORDERED: traMADol 50mg tab ORAL PRN (17:00)
[2017-04-29] MEDS ORDERED: Miralax 17gm pkt ORAL PRN (17:00)
[2017-04-29 17:29] VITALS: BP 96/49
[2017-04-29 19:30] VITALS: BP 94/52
--- NOTE | 2017-04-29 19:54 | Consultation ---
History of Present Illness General Date patient seen: Apr 29, 2017 Chief Complaint: Flu Like Symptoms Reason for Consultation: dypsnea Present Illness HPI 52 year old female with hx of COPD, ESRF on HD, presented to [facility] [place] with CC of shortness of breath, cough, dyspnea for the last few days/ weeks. Pt was seen earlier in ER and was sent home. She came back with worsening symptoms. She is admitted to telemetry for intractable cough and dyspnea. Allergies: Coded Allergies: CEFAZOLIN (Verified Allergy, Unknown, 10/02/10) CIPROFLOXACIN (Verified Allergy, Unknown, 10/02/10) GENTAMICIN (Verified Allergy, Unknown, 10/02/10) LEVOFLOXACIN (Verified Allergy, Unknown, 10/02/10) PENICILLINS (Verified Allergy, Unknown, ITCH, 10/02/10) Uncoded Allergies: CONTRAST MEDIA (Adverse Reaction, Mild, MILD ITCHING AFTER CONTRAST MEDIA, 04/30/17) Medication History Scheduled Albuterol Sulfate (Ventolin Hfa), 1 PUFF INH EVERY 6 HOURS Albuterol Sulfate* (Albuterol Sulfate Mdi*), 2 PUFF INH Q4H Azithromycin* (Zithromax*), 250 MG ORAL DAILY Calcium Acetate (Phoslo), 667 MG PO TID, (Reported) Cinacalcet* (Sensipar*), 30 MG PO 3XW, (Reported) Cinacalcet* (Sensipar*), 30 MG ORAL 3XW, (Reported) Guaifenesin/Dextromethorphan (Guaifenesin Dm Syrup), 5 ML PO QHS Levalbuterol Tartrate (Xopenex Hfa), 15 GM IH Q6HR Omeprazole (Omeprazole), 40 MG PO DAILY, (Reported) Omeprazole (Omeprazole), 20 MG ORAL BID, (Reported) Prednisone* (Prednisone*), 20 MG ORAL BID Sevelamer Carbonate (Renvela), 800 MG PO TID, (Reported) Sevelamer Carbonate (Renvela), 1,600 MG ORAL THREE TIMES A DAY, (Reported) Vancomycin Hcl/D5w (Vancomycin-D5w 1 G/250 Ml), 1,250 GM IVPB Q24H, (Reported) Vancomycin/0.9 % Sod Chloride (Vancomycin 1 G/200Ml-0.9% NaCl), 0 IV pharm to dose, (Reported) Vitamin B Cmplx/Vit C/Folic AC (Nephro-Dmitry Tablet), 1 TAB ORAL DAILY, (Reported ) Warfarin Sod* (Coumadin*), 7 MG PO DAILY, (Reported) Scheduled PRN Hydrocodone Bit/Acetaminophen 5-325* ([place] 5-325*), 1 TAB ORAL Q6H PRN for For Pain Hydrocodone Bit/Acetaminophen 5-500 (Vicodin 5-500), 1 TAB ORAL Q4H PRN for For Pain Promethazine/Dextromethorphan (Promethazine-Dm Syrup), 1 TSP ORAL Q6H PRN for For Cough Tramadol Hcl* (Ultram*), 50 MG ORAL Q6H PRN for For Pain Zolpidem Tartrate* (Ambien*), 10 MG PO HS PRN, (Reported) Zolpidem Tartrate* (Ambien*), 10 MG ORAL BEDTIME PRN for Insomnia, (Reported) Miscellaneous Medications Folic Acid/Vitamin B Comp W-C (Renavit Tablet), 0 PO, (Reported) Vancomycin Hcl (Vancomycin Hcl), 0 IVPB, (Reported) Vancomycin Hcl/D5w (Vancomycin-D5w 1 G/250 Ml), 0 IVPB, (Reported) Patient History Healthcare decision maker Resuscitation status Advanced Directive on File Past Medical/Surgical History Past Medical/Surgical History: (1) ESRD (end stage renal disease) on dialysis (2) Anemia of renal disease Review of Systems All Other Systems: negative except mentioned in HPI Physical Exam General Appearance: WD/WN, no apparent distress Lines, tubes and drains: peripheral HEENT: normocephalic, atraumatic Neck: non-tender, normal alignment Respiratory/Chest: chest wall non-tender, lungs clear Breasts: no masses Cardiovascular/Chest: normal peripheral pulses, normal rate Abdomen: normal bowel sounds, soft Genitourinary/Rectal: normal genital exam Extremities: normal range of motion Neurologic: rouge mixer II-XII grossly normal Last 24 Hour Vital Signs Date Time Temp Pulse Resp B/P (MAP) Pulse Ox O2 Delivery O2 Flow Rate FiO2 04/29/17 17:29 81 20 96/49 100 Room Air 04/29/17 15:35 79 20 93/58 99 Room Air 04/29/17 11:57 75 20 99 Room Air 21 04/29/17 11:56 21 04/29/17 11:42 73 20 98 Room Air 21 04/29/17 11:32 83 20 91/56 93 Room Air 04/29/17 10:41 97.2 20 90/ 99 Room Air 04/29/17 10:41 94 20 Room Air 04/29/17 10:39 97.2 94 20 90/56 99 Room Air Laboratory Tests Test 04/29/17 13:40 White Blood Count 5.6 K/UL (4.8-10.8) Red Blood Count 4.19 M/UL (4.20-5.40) L Hemoglobin 13.1 G/DL (12.0-16.0) Hematocrit 42.4 % (37.0-47.0) Mean Corpuscular Volume 101 FL (80-99) H Mean Corpuscular Hemoglobin 31.3 PG (27.0-31.0) H Mean Corpuscular Hemoglobin Concent 30.9 G/DL (32.0-36.0) L Red Cell Distribution Width 15.3 % (11.6-14.8) H Platelet Count 148 K/UL (150-450) L Mean Platelet Volume 9.7 FL (6.5-10.1) Neutrophils (%) (Auto) % (45.0-75.0) Lymphocytes (%) (Auto) % (20.0-45.0) Monocytes (%) (Auto) % (1.0-10.0) Eosinophils (%) (Auto) % (0.0-3.0) Basophils (%) (Auto) % (0.0-2.0) Differential Total Cells Counted 100 Neutrophils % (Manual) 47 % (45-75) Lymphocytes % (Manual) 24 % (20-45) Monocytes % (Manual) 6 % (1-10) Eosinophils % (Manual) 23 % (0-3) H Basophils % (Manual) 0 % (0-2) Band Neutrophils 0 % (0-8) Platelet Estimate Adequate Platelet Morphology Normal Clumped Platelets 1+ Hypochromasia 1+ Macrocytosis 1+ Sodium Level 139 MMOL/L (136-145) Potassium Level 4.2 MMOL/L (3.5-5.1) Chloride Level 100 MMOL/L (98-107) Carbon Dioxide Level 25 MMOL/L (21-32) Anion Gap 14 mmol/L (5-15) Blood Urea Nitrogen 25 mg/dL (7-18) H Creatinine 9.7 MG/DL (0.55-1.30) H Estimat Glomerular Filtration Rate 5.1 mL/min (>60) Glucose Level 85 MG/DL (74-106) Calcium Level 9.8 MG/DL (8.5-10.1) Total Bilirubin 0.3 MG/DL (0.2-1.0) Aspartate Amino Transf (AST/SGOT) 19 U/L (15-37) Alanine Aminotransferase (ALT/SGPT) 26 U/L (12-78) Alkaline Phosphatase 171 U/L (46-116) H Troponin I 0.000 ng/mL (0.000-0.056) Pro-B-Type Natriuretic Peptide 1077 pg/mL (0-125) H Total Protein 8.5 G/DL (6.4-8.2) H Albumin 3.8 G/DL (3.4-5.0) Globulin 4.7 g/dL Albumin/Globulin Ratio 0.8 (1.0-2.7) L Microbiology Date/Time Source Procedure Growth Status 04/29/17 11:25 Nasal Nares Influenza Types A,B Antigen (DORON) - Final Complete Height (Feet): 5 Height (Inches): 4.00 Weight (Pounds): 175 Medications Current Medications Medications (Trade) Dose Ordered Sig/Marcos Route PRN Reason Start Time Stop Time Status Last Admin Dose Admin Acetaminophen (Tylenol) 650 mg Q4H PRN ORAL Fever (temp>100.5F) 04/29/17 17:00 05/29/17 16:59 Albuterol/ Ipratropium (Albuterol/ Ipratropium) 3 ml Q4H PRN HHN Shortness of Breath 04/29/17 17:00 05/04/17 16:59 Calcium Acetate (Phoslo) 667 mg TID ORAL 04/29/17 21:00 05/29/17 20:59 Cinacalcet (Sensipar) 30 mg 3XW ORAL 04/30/17 09:00 05/30/17 08:59 Dextrose (Dextrose 50%) STAT PRN IV Hypoglycemia 04/29/17 17:00 05/29/17 16:59 Heparin Sodium (Porcine) (Heparin 5000 units/ml) 5,000 units EVERY 12 HOURS SUBQ 04/29/17 21:00 05/29/17 20:59 Ondansetron HCl (Zofran) 4 mg Q6H PRN IVP Nausea & Vomiting 04/29/17 17:00 05/29/17 16:59 Polyethylene Glycol (Miralax) 17 gm DAILYPRN PRN ORAL Constipation 04/29/17 17:00 05/29/17 16:59 Sevelamer Carbonate (Renvela) 800 mg TID ORAL 04/29/17 21:00 05/29/17 20:59 Temazepam (Restoril) 15 mg HSPRN PRN ORAL Insomnia 04/29/17 17:00 05/06/17 16:59 Tramadol HCl (Ultram) 50 mg Q6H PRN ORAL For Pain 04/29/17 17:00 05/06/17 16:59 Assessment/Plan Problem List: (1) Acute bronchitis (2) Dyspnea ICD Codes: R06.00 - Dyspnea, unspecified SNOMED: 328837809 (3) ESRD (end stage renal disease) on dialysis ICD Codes: N18.6 - End stage renal disease; Z99.2 - Dependence on renal dialysis SNOMED: 592687643 Assessment/Plan respiratory treatment titrate fi2 check electrolytes [place] to arrange for Hd check sputum dvt prophylaxis. GABI DENNEY Apr 29, 2017 19:54
[2017-04-29] MEDS: Calcium Acetate 667mg Tab ORAL SCH (20:59)
[2017-04-29] MEDS: Heparin 5000 units/ml inj SUBQ SCH (21:00)
[2017-04-29 22:39] VITALS: BP 93/53
[2017-04-30 00:20] VITALS: BP 98/60
[2017-04-30 04:15] VITALS: BP 99/59
[2017-04-30 08:00] VITALS: BP 105/65
[2017-04-30 08:04] LABS: HEMOGLOBIN 11.9 G/DL (12.0-16.0); MEAN CORPUSCULAR VOLUME 101 FL (80-99); PLATELET COUNT 125 K/UL (150-450); RED BLOOD COUNT 3.56 M/UL (4.20-5.40); RED CELL DISTRIBUTION WIDTH 15.2 % (11.6-14.8); WHITE BLOOD COUNT 4.5 K/UL (4.8-10.8)
[2017-04-30 08:06] LABS: ALBUMIN 3.4 G/DL (3.4-5.0); ANION GAP 12 mmol/L (5-15); BLOOD UREA NITROGEN 32 mg/dL (7-18); CALCIUM 9.5 MG/DL (8.5-10.1); CARBON DIOXIDE 26 MMOL/L (21-32); CHLORIDE 103 MMOL/L (98-107); CREATININE 11.2 MG/DL (0.55-1.30); PHOSPHORUS 6.1 MG/DL (2.5-4.9); POTASSIUM 4.2 MMOL/L (3.5-5.1); SODIUM 141 MMOL/L (136-145)
[2017-04-30] MEDS ORDERED: Dyna-Hex 2% Top Sol 2oz TOPIC SCH (09:00)
[2017-04-30] MEDS ORDERED: Sensipar 30mg Tab ORAL SCH (09:00)
[2017-04-30] MEDS: Calcium Acetate 667mg Tab ORAL SCH ×3 (09:18→21:46)
[2017-04-30] MEDS: Heparin 5000 units/ml inj SUBQ SCH ×2 (09:19→21:00)
--- NOTE | 2017-04-30 09:23 | Diagnostic Imaging Report ---
Indication: Dyspnea Technique: CT pulmonary angiogram performed utilizing automated exposure control with intravenous contrast. Axial, sagittal and coronal reconstructions were obtained. 3-D volumetric reconstructions were also performed. CT dose: Total DLP 984.05 mGycm; CTDI vol 28.38 mGy Comparison: None Findings: There is suboptimal opacification of the pulmonary arteries with very little contrast within the pulmonary arterial system at time of scanning. This renders the examination nondiagnostic for pulmonary emboli. There is no large saddle pulmonary embolus. The main pulmonary artery is normal in size. There is no evidence of right heart strain. The abdominal aorta is normal in caliber. No evidence to suggest aortic dissection. Conventional branching pattern of the great vessels. Visualized portions of the great vessels are patent and normal caliber. There is less portions of the abdominal aorta patent and of normal caliber. Celiac artery is patent. There is occlusion of the superior vena cava with filling of multiple venous collaterals in the mediastinum, anterior chest as well as draining via the azygos system. The brachiocephalic vein on the right appears stenotic. Subclavian vein on the right also appears stenotic. The left brachiocephalic vein is very miniscule in caliber. Multiple additional venous collaterals in the left mediastinum. A likely femoral vein approach dialysis catheter is noted within the IVC and its tip terminating at the cavoatrial junction. Multiple venous stents/grafts noted in the right upper extremity. There is mild septal thickening suggesting a degree of fluid overload. Dependent atelectasis noted, most pronounced in the lung bases. There is no pleural effusion or pneumothorax. Heart size within normal limits. No pericardial effusion. Imaged thyroid is grossly unremarkable. There is a large hiatal hernia. There is no evidence to suggest bowel obstruction. There is thickening of the thoracic esophagus. No acute bony abnormality seen. Calcifications noted in the bilateral breasts. Correlation with most recent mammogram recommended. Impression: Suboptimal opacification of the pulmonary arteries makes examination nondiagnostic for pulmonary emboli. Suboptimal contrast opacification likely related to central venous occlusion as detailed below. Main pulmonary artery normal in size. No evidence of right heart strain. Chronic central venous occlusions with filling of multiple venous collaterals in the chest. Likely related to dialysis as there is evidence of prior right upper extremity venous stenting and a dialysis catheter is noted via the IVC (likely common femoral vein approach) with its tip at the cavoatrial junction. No thoracic aortic aneurysm or dissection. Large hiatal hernia. Mild septal thickening suggesting a degree of fluid overload. Thickening of the thoracic esophagus. Hyperplasia or mass cannot entirely be excluded. Correlation with endoscopy recommended. Multiple bilateral breast calcifications. Correlate with mammography. The CT scanner at [facility] is accredited by the [employer] and the scans are performed using protocols designed to limit radiation exposure to as low as reasonably achievable to attain images of sufficient resolution adequate for diagnostic evaluation.
[2017-04-30 12:00] VITALS: BP 104/66
[2017-04-30] MEDS ORDERED: DiphenhydrAMINE 50mg/ml Inj IVP PRN ×3 (12:00→17:30)
[2017-04-30] MEDS ORDERED: Solu-MEDROL 125mg Inj IVP PRN (12:30)
--- NOTE | 2017-04-30 13:00 | Cardiology Report ---
APPROVED REPORT EXAM: Two-dimensional and M-mode echocardiogram with Doppler and color Doppler. INDICATION LV function M-Mode DIMENSIONS IVSd1.3 (0.7-1.1cm)Left Atrium (MM)3.3 (1.6-4.0cm) LVDd4.6 (3.5-5.6cm)Aortic Root2.9 (2.0-3.7cm) PWd1.3 (0.7-1.1cm)Aortic Cusp Exc.1.8 (1.5-2.0cm) LVDs3.0 (2.5-4.0cm) PWs1.6 cm Normal left ventricular chamber size, systolic function and wall motion. Left ventricular ejection fraction estimated to be 55-60 %. No evidence of left ventricular hypertrophy. No evidence of pericardial effusion. Mild left atrial enlargement. Right cardiac chamber sizes are within normal limits. Mild focal aortic valve sclerosis with adequate cusp excursion. Thickened mitral valve leaflets with normal excursion. Mitral annulus and aortic root calcification. Normal pulmonic valve structure. Normal tricuspid valve structure. IVC at normal size with physiologic collapse. A color flow and spectral Doppler study was performed and revealed: Mild to moderate mitral regurgitation. Mitral inflow indicates normal left ventricular diastolic function. Mild tricuspid regurgitation. Tricuspid systolic velocities suggests peak right ventricular systolic pressure of 43 mmHg, consistent with mild to moderate pulmonary hypertension. Mild pulmonic regurgitation present.
--- NOTE | 2017-04-30 13:24 | Cardiology Report ---
APPROVED REPORT EKG Measurement Heart [id number] Normal sinus rhythm Low voltage QRS Nonspecific T wave abnormality Abnormal ECG
--- NOTE | 2017-04-30 15:10 | Consultation ---
Consult Note Consult Note asked to eval for dialysis treatment ESRD admitted with flu like Sxs and Respiratory distress + Chills due HD M W Fr on HD for 35 years- s/p Parathyroidectomy and 2 transplant Patient presents with complaints of general weakness She also complains of exertional dyspnea Patient is on dialysis Shows a has a mild cough Denies any neck pain or photophobia Allergies: Coded Allergies: CEFAZOLIN (Verified Allergy, Unknown, 10/02/10) CIPROFLOXACIN (Verified Allergy, Unknown, 10/02/10) GENTAMICIN (Verified Allergy, Unknown, 10/02/10) LEVOFLOXACIN (Verified Allergy, Unknown, 10/02/10) PENICILLINS (Verified Allergy, Unknown, ITCH, 10/02/10) Hx Cardiac Problems: Yes - Hypotension Hx Asthma: Yes Hx Gastrointestinal Problems: Yes Hx Dialysis: Yes - MWF, last dialysis 01/20/17. Hx Neurological Problems: No - Assessment/Plan Assessment/Plan ESRD Flu like Sxs Plan: Dialysis ordered Per consultants EDAURDO ROSE Apr 30, 2017 15:10
--- NOTE | 2017-04-30 15:17 | Pulmonology Progress Note ---
Assessment/Plan Problems: (1) Acute bronchitis (2) Dyspnea (3) ESRD (end stage renal disease) on dialysis Assessment/Plan improving titrate fito2 HD today check sputum. med/surg Subjective ROS Limited/Unobtainable: No Constitutional: Reports: no symptoms HEENT: Repors: no symptoms Respiratory: Reports: no symptoms Allergies: Coded Allergies: CEFAZOLIN (Verified Allergy, Unknown, 10/02/10) CIPROFLOXACIN (Verified Allergy, Unknown, 10/02/10) GENTAMICIN (Verified Allergy, Unknown, 10/02/10) LEVOFLOXACIN (Verified Allergy, Unknown, 10/02/10) PENICILLINS (Verified Allergy, Unknown, ITCH, 10/02/10) Uncoded Allergies: CONTRAST MEDIA (Adverse Reaction, Mild, MILD ITCHING AFTER CONTRAST MEDIA, 04/30/17) Objective Last 24 Hour Vital Signs Date Time Temp Pulse Resp B/P (MAP) Pulse Ox O2 Delivery O2 Flow Rate FiO2 04/30/17 12:00 97.0 75 19 104/66 100 Room Air 04/30/17 12:00 78 04/30/17 08:00 97.8 78 19 105/65 100 Room Air 04/30/17 08:00 64 04/30/17 04:15 Room Air 04/30/17 04:15 97.7 61 18 99/59 96 Room Air 04/30/17 04:00 57 04/30/17 00:20 Room Air 04/30/17 00:20 97.0 64 18 98/60 96 Room Air 04/30/17 00:00 55 04/29/17 22:39 96.6 73 18 93/53 97 Room Air 04/29/17 22:39 Room Air 04/29/17 20:15 97.2 80 18 94/52 100 Room Air 21 04/29/17 19:30 80 18 94/52 100 Room Air 04/29/17 17:29 81 20 96/49 100 Room Air 04/29/17 15:35 79 20 93/58 99 Room Air Intake and Output 04/29/17 04/30/17 19:00 07:00 Intake Total 0 ml Output Total 300 ml Balance 0 ml -300 ml Intake Oral 0 ml Output Urine Total 300 ml # Bowel Movements 1 General Appearance: WD/WN HEENT: normocephalic, anicteric Respiratory/Chest: chest wall non-tender, lungs clear Breasts: no masses Abdomen: normal bowel sounds, soft, non tender Extremities: no cyanosis Skin: no ulcers Neurologic/Psychiatric: 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 grossly normal Microbiology Date/Time Source Procedure Growth Status 04/29/17 11:25 Nasal Nares Influenza Types A,B Antigen (DORON) - Final Complete Laboratory Tests 04/30/17 06:24: White Blood Count 4.5L, Red Blood Count 3.56L, Hemoglobin 11.9L, Hematocrit 36.0L, Mean Corpuscular Volume 101H, Mean Corpuscular Hemoglobin 33.4H, Mean Corpuscular Hemoglobin Concent 33.0, Red Cell Distribution Width 15.2H, Platelet Count 125L, Mean Platelet Volume 8.7, Neutrophils (%) (Auto) , Lymphocytes (%) (Auto) , Monocytes (%) (Auto) , Eosinophils (%) (Auto) , Basophils (%) (Auto) , Differential Total Cells Counted 100, Neutrophils % ( Manual) 37L, Lymphocytes % (Manual) 30, Monocytes % (Manual) 8, Eosinophils % ( Manual) 25H, Basophils % (Manual) 0, Band Neutrophils 0, Platelet Estimate DecreasedL, Platelet Morphology Normal, Hypochromasia 1+, Macrocytosis 1+, Sodium Level 141, Potassium Level 4.2, Chloride Level 103, Carbon Dioxide Level 26, Anion Gap 12, Blood Urea Nitrogen 32H, Creatinine 11.2H, Estimat Glomerular Filtration Rate 4.4, Glucose Level 81, Calcium Level 9.5, Phosphorus Level 6.1H , Troponin I 0.000, Albumin 3.4 Current Medications Medications (Trade) Dose Ordered Sig/Marcos Route PRN Reason Start Time Stop Time Status Last Admin Dose Admin Acetaminophen (Tylenol) 650 mg Q4H PRN ORAL Fever (temp>100.5F) 04/29/17 17:00 05/29/17 16:59 Albuterol/ Ipratropium (Albuterol/ Ipratropium) 3 ml Q4H PRN HHN Shortness of Breath 04/29/17 17:00 05/04/17 16:59 Calcium Acetate (Phoslo) 667 mg TID ORAL 04/29/17 21:00 05/29/17 20:59 04/30/17 12:15 Chlorhexidine Gluconate (Nivia-Hex 2%) 1 applic DAILY TOPIC 04/30/17 09:00 05/30/17 08:59 04/30/17 09:21 Cinacalcet (Sensipar) 30 mg 3XW ORAL 04/30/17 09:00 05/30/17 08:59 04/30/17 09:18 Dextrose (Dextrose 50%) STAT PRN IV Hypoglycemia 04/29/17 17:00 05/29/17 16:59 Diphenhydramine HCl (Benadryl) 25 mg Q6H PRN IVP Itching 04/30/17 12:00 05/30/17 11:59 04/30/17 12:16 Heparin Sodium (Porcine) (Heparin 5000 units/ml) 5,000 units EVERY 12 HOURS SUBQ 04/29/17 21:00 05/29/17 20:59 04/30/17 09:19 Methylprednisolone Sodium Succinate (Solu-MEDROL) 60 mg Q6H PRN IVP Itching 04/30/17 12:30 05/30/17 12:29 Ondansetron HCl (Zofran) 4 mg Q6H PRN IVP Nausea & Vomiting 04/29/17 17:00 05/29/17 16:59 Pantoprazole (Protonix) 40 mg BID ORAL 04/29/17 22:00 05/29/17 21:59 04/30/17 09:18 Polyethylene Glycol (Miralax) 17 gm DAILYPRN PRN ORAL Constipation 04/29/17 17:00 05/29/17 16:59 Sevelamer Carbonate (Renvela) 800 mg TID ORAL 04/29/17 21:00 05/29/17 20:59 04/30/17 12:16 Temazepam (Restoril) 15 mg HSPRN PRN ORAL Insomnia 04/29/17 17:00 05/06/17 16:59 04/29/17 22:21 Tramadol HCl (Ultram) 50 mg Q6H PRN ORAL For Pain 04/29/17 17:00 05/06/17 16:59 GABI DENNEY Apr 30, 2017 15:17
--- NOTE | 2017-04-30 15:58 | History & Physical ---
History and Physical History & Physicial Ash Henley MD Apr 30, 2017 15:58
[2017-04-30 16:00] VITALS: BP_SYST 100; BP_SYST 102; BP_DIAS 64
[2017-04-30] MEDS ORDERED: Promethazine/Codeine 5ml UD ORAL PRN (16:00)
[2017-04-30] MEDS ORDERED: Albuterol/Ipratropium 3ml neb HHN PRN (17:00)
[2017-04-30] MEDS ORDERED: traMADol 50mg tab ORAL PRN (17:00)
[2017-04-30] MEDS ORDERED: Miralax 17gm pkt ORAL PRN (17:00)
[2017-04-30] MEDS ORDERED: Levalbuterol Inh UD 1.25mg/0.5ml HHN SCH (19:00)
[2017-04-30] MEDS ORDERED: Albuterol/Ipratropium 3ml neb HHN SCH (19:00)
[2017-04-30 20:00] VITALS: BP 80/52
[2017-04-30] MEDS: Levalbuterol Inh UD 1.25mg/0.5ml HHN SCH (20:04)
[2017-04-30] MEDS: Albuterol/Ipratropium 3ml neb HHN SCH (20:04)
[2017-04-30] MEDS: Dyna-Hex 2% Top Sol 2oz TOPIC SCH (21:46)
--- NOTE | 2017-04-30 22:01 | History and Physical Report ---
DATE OF ADMISSION: 04/29/2017 CHIEF COMPLAINT: Shortness of breath and flu-like symptoms. HISTORY OF PRESENT ILLNESS: This is a 52 years old very delightful female with a past medical history significant for end-stage renal disease, on hemodialysis, history of atrioventricular AV graft placement, several AV graft placement, history of cholecystectomy, parathyroidectomy, carpal tunnel syndrome, open reduction and internal fixation of the left elbow, and obesity, who was presented to the emergency room complaining about shortness of breath, progressive worsening over the past few days and the patient stated that she had a flu-like symptoms, got progressively worsening, associated with wheezes and cough. Shortly after initial evaluation in the emergency room, the patient was admitted to the hospital with shortness of breath, possibly due to the fluid overload as well as acute bronchitis as well as pulmonary edema with the possibility of acute bronchitis and viral upper respiratory viral infection. PAST MEDICAL HISTORY AND PAST SURGICAL HISTORY: As above. History of PermCath placement in the left groin for dialysis. Left groin dialysis catheter infected, PermCath infected, status post removal as well as several atrioventricular graft placement and presently the patient has a right groin dialysis catheter for dialysis, cholecystectomy, parathyroidectomy, and carpal tunnel release. Open reduction and internal fixation of the left elbow and history of end-stage renal disease, on hemodialysis, Wednesday, Wednesday, and Wednesday. The patient has a history of failed renal transplant twice. Prior history of peritoneal dialysis in the past. MEDICATIONS: Medications at home significant for Sensipar, Renvela, omeprazole, Ambien, and Nephro-Dmitry. ALLERGIES: Cefazolin, Cipro, gentamicin, Levaquin, as well as penicillin. SOCIAL HISTORY: The patient is single, disabled. No smoking, alcohol, or drugs. FAMILY HISTORY: Noncontributory. REVIEW OF SYSTEMS: Mostly as above. Complained about shortness of breath. Complained about cough. Denies any hemoptysis or hematochezia. Denies any suicidal or homicidal ideation. Denies any loss of consciousness. Denies any double vision. Denies any fall. PHYSICAL EXAMINATION: VITAL SIGNS: Temperature 97, pulse of 64, respirations 18, and blood pressure 98/60. GENERAL: The patient is awake, responsive, in no acute distress. HEAD AND NECK: Pupils are reactive to light. Extraocular movements are intact. Neck is supple. No JVD. LUNGS: Good air entry. No wheezing or rales. HEART: S1 and S2. Distant heart sounds. No murmurs or gallops. ABDOMEN: Soft, nondistended, and nontender. Mildly obese. Right groin has a PermCath noted and no sign of infection. No bleeding. EXTREMITIES: No cyanosis, clubbing, or edema. NEUROLOGIC: Cranial nerves II through XII are grossly intact. Motor is 5/5 in all extremities. Gait is intact. LABORATORY AND DIAGNOSTIC DATA: Laboratory on admission, WBC of 5.6, hemoglobin of 13, hematocrit 42, and platelets is 148,000. Sodium 139, potassium 4.2, chloride 100, bicarbonate 25, BUN 25, creatinine 9.7, and GFR is 5.1. First and second troponins are essentially unremarkable. Alkaline phosphatase is 171. The patient's rapid influenza A and B screening is negative. Chest x-ray, no acute cardiopulmonary disease. CT of the chest noted to be suboptimal opacification of the pulmonary artery makes examination nondiagnostic for the pulmonary embolism, suboptimal contrast opacification, likely related to the central venous occlusion, main pulmonary artery normal in size, no evidence of the right heart strain, chronic central venous occlusion, no thoracic aortic aneurysm or dissection, left hiatal hernia, mild septal thickening suggestive of the degree of the fluid overload. The patient had an echocardiogram showed ejection fraction of 55% to 60%, left ventricular hypertrophy, no evidence of pericardial effusion, mild left atrial enlargement, and thickened mitral valve leaflets with normal excursion. ASSESSMENT: 1. Acute shortness of breath, possibly due to the fluid overload in combination with upper respiratory infection, possible viral versus bacterial. 2. End-stage renal disease, on hemodialysis. 3. History of parathyroidectomy, secondary to third-degree . 4. Morbid obesity. 5. Anemia of chronic kidney disease. PLAN: We will follow up with the dialysis today. Monitor laboratory. Discussed with Dr. Schmidt, Pulmonary, Critical Care and Dr. Conner from Nephrology. Broad-spectrum antibiotics with dose of Solu-Medrol was given in the ER. We will monitor the patient's breathing pattern. At this time, we will consider to discontinue telemetry, and Code status, Full Code. DVT prophylaxis. Heparin subcutaneously. Ash Henley M.D. DR: HAILEY JOB#: [id number] CC:
[2017-05-01] VITALS (8 sets, daily range): BP systolic 78–118; BP diastolic 40–69
[2017-05-01] MEDS: Albuterol/Ipratropium 3ml neb HHN SCH ×4 (01:00→19:00)
[2017-05-01] MEDS: Levalbuterol Inh UD 1.25mg/0.5ml HHN SCH ×3 (07:00→19:14)
[2017-05-01 08:05] LABS: BASOPHILS % (AUTO) 0.9 % (0.0-2.0); EOSINOPHILS % (AUTO) 19.8 % (0.0-3.0); HEMATOCRIT 40.3 % (37.0-47.0); HEMOGLOBIN 12.9 G/DL (12.0-16.0); LYMPHOCYTES % (AUTO) 29.8 % (20.0-45.0); MEAN CORPUSCULAR VOLUME 101 FL (80-99); MONOCYTES % (AUTO) 7.5 % (1.0-10.0); NEUTROPHILS % (AUTO) 41.9 % (45.0-75.0); PLATELET COUNT 137 K/UL (150-450); RED BLOOD COUNT 3.98 M/UL (4.20-5.40); RED CELL DISTRIBUTION WIDTH 15.3 % (11.6-14.8); WHITE BLOOD COUNT 4.4 K/UL (4.8-10.8)
[2017-05-01] MEDS: Calcium Acetate 667mg Tab ORAL SCH ×3 (08:05→17:14)
[2017-05-01 08:31] LABS: ALANINE AMINOTRANSFERASE 24 U/L (12-78); ALBUMIN 3.7 G/DL (3.4-5.0); ALBUMIN/GLOBULIN RATIO 0.8 (1.0-2.7); ALKALINE PHOSPHATASE 168 U/L (46-116); ANION GAP 10 mmol/L (5-15); ASPARTATE AMINO TRANSFERASE 13 U/L (15-37); BILIRUBIN,TOTAL 0.5 MG/DL (0.2-1.0); BLOOD UREA NITROGEN 27 mg/dL (7-18); CALCIUM 9.6 MG/DL (8.5-10.1); CARBON DIOXIDE 31 MMOL/L (21-32); CHLORIDE 98 MMOL/L (98-107); CHOLESTEROL 164 MG/DL (< 200); CREATININE 9.6 MG/DL (0.55-1.30); GAMMA GLUTAMYL TRANSPEPTIDASE 61 U/L (5-85); HDL CHOLESTEROL 66 MG/DL (40-60); PHOSPHORUS 5.5 MG/DL (2.5-4.9); POTASSIUM 3.8 MMOL/L (3.5-5.1); SODIUM 139 MMOL/L (136-145); TRIGLYCERIDES 168 MG/DL (30-150)
[2017-05-01] MEDS ORDERED: Solu-MEDROL 40mg Inj IVP SCH (09:00)
[2017-05-01] MEDS: Heparin 5000 units/ml inj SUBQ SCH ×2 (09:00→20:24)
--- NOTE | 2017-05-01 09:33 | Pulmonology Progress Note ---
Assessment/Plan Problems: (1) Acute bronchitis (2) Dyspnea (3) ESRD (end stage renal disease) on dialysis Assessment/Plan improving titrate fito2 HD today check sputum. med/surg dc home today Subjective ROS Limited/Unobtainable: No Allergies: Coded Allergies: CEFAZOLIN (Verified Allergy, Unknown, 10/02/10) CIPROFLOXACIN (Verified Allergy, Unknown, 10/02/10) GENTAMICIN (Verified Allergy, Unknown, 10/02/10) LEVOFLOXACIN (Verified Allergy, Unknown, 10/02/10) PENICILLINS (Verified Allergy, Unknown, ITCH, 10/02/10) Uncoded Allergies: CONTRAST MEDIA (Adverse Reaction, Mild, MILD ITCHING AFTER CONTRAST MEDIA, 04/30/17) Objective Last 24 Hour Vital Signs Date Time Temp Pulse Resp B/P (MAP) Pulse Ox O2 Delivery O2 Flow Rate FiO2 05/01/17 07:34 77 16 Room Air 21 05/01/17 07:34 Room Air 05/01/17 07:34 Room Air 05/01/17 07:34 21 05/01/17 04:00 98.0 61 18 91/51 92 Room Air 05/01/17 02:59 61 18 88/44 93 Room Air 05/01/17 00:00 98.4 70 18 78/40 90 04/30/17 20:50 82 16 96 Room Air 21 04/30/17 20:04 21 04/30/17 20:04 77 16 Room Air 21 04/30/17 20:04 77 16 92 Room Air 21 04/30/17 20:00 Room Air 04/30/17 20:00 97.3 90 20 80/52 Room Air 04/30/17 16:00 97.8 82 18 102/64 100 Room Air 04/30/17 16:00 97.0 82 20 100/64 Room Air 04/30/17 16:00 Room Air 04/30/17 12:00 97.0 75 19 104/66 100 Room Air 04/30/17 12:00 78 Intake and Output 04/30/17 05/01/17 19:00 07:00 Intake Total 240 ml 360 ml Output Total 2340 ml Balance 240 ml -1980 ml Intake Oral 240 ml 360 ml Hemodialysis UF 2340 ml # Bowel Movements 1 General Appearance: WD/WN HEENT: normocephalic, atraumatic, PERRL Respiratory/Chest: lungs clear Breasts: no masses Cardiovascular: normal peripheral pulses Abdomen: soft, non tender Extremities: no cyanosis Skin: no rash, no ulcers Microbiology Date/Time Source Procedure Growth Status 04/29/17 11:25 Nasal Nares Influenza Types A,B Antigen (DORON) - Final Complete Laboratory Tests 05/01/17 07:50: White Blood Count 4.4L, Red Blood Count 3.98L, Hemoglobin 12.9, Hematocrit 40.3 , Mean Corpuscular Volume 101H, Mean Corpuscular Hemoglobin 32.3H, Mean Corpuscular Hemoglobin Concent 31.9L, Red Cell Distribution Width 15.3H, Platelet Count 137L, Mean Platelet Volume 8.0, Neutrophils (%) (Auto) 41.9L, Lymphocytes (%) (Auto) 29.8, Monocytes (%) (Auto) 7.5, Eosinophils (%) (Auto) 19.8H, Basophils (%) (Auto) 0.9, Sodium Level 139, Potassium Level 3.8, Chloride Level 98, Carbon Dioxide Level 31, Anion Gap 10, Blood Urea Nitrogen 27H, Creatinine 9.6H, Estimat Glomerular Filtration Rate 5.1, Glucose Level 92, Hemoglobin A1c 5.0, Uric Acid 4.6, Calcium Level 9.6, Phosphorus Level 5.5H, Magnesium Level 1.8, Total Bilirubin 0.5, Gamma Glutamyl Transpeptidase 61, Aspartate Amino Transf (AST/SGOT) 13L, Alanine Aminotransferase (ALT/SGPT) 24, Alkaline Phosphatase 168H, Troponin I 0.000, C-Reactive Protein, Quantitative 3.2H, Pro-B-Type Natriuretic Peptide 1264H, Total Protein 8.4H, Albumin 3.7, Globulin 4.7, Albumin/Globulin Ratio 0.8L, Triglycerides Level 168H, Cholesterol Level 164, LDL Cholesterol 70, HDL Cholesterol 66H, Cholesterol/HDL Ratio 2.5L, Thyroid Stimulating Hormone (TSH) 2.488 Current Medications Medications (Trade) Dose Ordered Sig/Marcos Route PRN Reason Start Time Stop Time Status Last Admin Dose Admin Acetaminophen (Tylenol) 650 mg Q4H PRN ORAL Fever (temp>100.5F) 04/30/17 17:00 05/29/17 16:59 Albuterol/ Ipratropium (Albuterol/ Ipratropium) 3 ml Q4H PRN HHN Shortness of Breath 1/12/18 17:00 05/04/17 16:59 Albuterol/ Ipratropium (Albuterol/ Ipratropium) 3 ml Q6HRT HHN 04/30/17 19:00 05/05/17 18:59 04/30/17 20:04 Calcium Acetate (Phoslo) 667 mg TID ORAL 04/30/17 21:00 05/29/17 20:59 05/01/17 08:05 Chlorhexidine Gluconate (Nivia-Hex 2%) 1 applic DAILY@2000 TOPIC 04/30/17 20:00 05/30/17 19:59 04/30/17 21:46 Cinacalcet (Sensipar) 30 mg 3XW ORAL 05/03/17 09:00 05/30/17 08:59 Dextrose (Dextrose 50%) STAT PRN IV Hypoglycemia 04/30/17 17:00 05/29/17 16:59 Diphenhydramine HCl (Benadryl) 50 mg Q6H PRN IVP Itching 04/30/17 17:30 05/30/17 17:29 04/30/17 17:35 Heparin Sodium (Porcine) (Heparin 5000 units/ml) 5,000 units EVERY 12 HOURS SUBQ 04/30/17 21:00 05/29/17 20:59 Levalbuterol HCl (Xopenex) 1.25 mg TIDRT HHN 04/30/17 19:00 05/05/17 18:59 04/30/17 20:04 Levofloxacin (Levaquin) 250 mg QHS ORAL 04/30/17 21:53 05/07/17 23:59 Ondansetron HCl (Zofran) 4 mg Q6H PRN IVP Nausea & Vomiting 04/30/17 17:00 05/29/17 16:59 Pantoprazole (Protonix) 40 mg BID ORAL 04/30/17 21:00 05/29/17 20:59 05/01/17 08:06 Polyethylene Glycol (Miralax) 17 gm DAILYPRN PRN ORAL Constipation 04/30/17 17:00 05/29/17 16:59 Promethazine HCl/ Codeine (Phenergan with Codeine) 5 ml Q4H PRN ORAL For Cough 04/30/17 18:30 05/30/17 18:29 Sevelamer Carbonate (Renvela) 800 mg TID ORAL 04/30/17 21:00 05/29/17 20:59 05/01/17 08:05 Temazepam (Restoril) 15 mg HSPRN PRN ORAL Insomnia 04/30/17 17:00 05/06/17 16:59 Tramadol HCl (Ultram) 50 mg Q6H PRN ORAL For Pain Scale 4-10 04/30/17 17:00 05/06/17 16:59 GABI DENNEY May 01, 2017 09:33
[2017-05-01] MEDS ORDERED: Bactrim-DS 1 tab ORAL SCH (09:45)
--- NOTE | 2017-05-01 10:58 | Nephrology Progress Note ---
Assessment/Plan Problem List: (1) ESRD (end stage renal disease) on dialysis (2) Dyspnea Assessment ESRD Flu like Sxs Low BP Plan Plan: Dialysis 04/30- next 05/03 pulm toilet Per consultants Subjective ROS Limited/Unobtainable: No Constitutional: Reports: malaise Objective Objective Last 24 Hour Vital Signs Date Time Temp Pulse Resp B/P (MAP) Pulse Ox O2 Delivery O2 Flow Rate FiO2 05/01/17 08:00 97.5 70 20 87/52 93 Room Air 05/01/17 07:34 77 16 Room Air 21 05/01/17 07:34 Room Air 05/01/17 07:34 Room Air 05/01/17 07:34 21 05/01/17 04:00 98.0 61 18 91/51 92 Room Air 05/01/17 02:59 61 18 88/44 93 Room Air 05/01/17 00:00 98.4 70 18 78/40 90 04/30/17 20:50 82 16 96 Room Air 21 04/30/17 20:04 21 04/30/17 20:04 77 16 Room Air 21 04/30/17 20:04 77 16 92 Room Air 21 04/30/17 20:00 Room Air 04/30/17 20:00 97.3 90 20 80/52 Room Air 04/30/17 16:00 97.8 82 18 102/64 100 Room Air 04/30/17 16:00 97.0 82 20 100/64 Room Air 04/30/17 16:00 Room Air 04/30/17 12:00 97.0 75 19 104/66 100 Room Air 04/30/17 12:00 78 Intake and Output 04/30/17 05/01/17 19:00 07:00 Intake Total 240 ml 360 ml Output Total 2340 ml Balance 240 ml -1980 ml Intake Oral 240 ml 360 ml Hemodialysis UF 2340 ml # Bowel Movements 1 Laboratory Tests 05/01/17 07:50: White Blood Count 4.4L, Red Blood Count 3.98L, Hemoglobin 12.9, Hematocrit 40.3 , Mean Corpuscular Volume 101H, Mean Corpuscular Hemoglobin 32.3H, Mean Corpuscular Hemoglobin Concent 31.9L, Red Cell Distribution Width 15.3H, Platelet Count 137L, Mean Platelet Volume 8.0, Neutrophils (%) (Auto) 41.9L, Lymphocytes (%) (Auto) 29.8, Monocytes (%) (Auto) 7.5, Eosinophils (%) (Auto) 19.8H, Basophils (%) (Auto) 0.9, Sodium Level 139, Potassium Level 3.8, Chloride Level 98, Carbon Dioxide Level 31, Anion Gap 10, Blood Urea Nitrogen 27H, Creatinine 9.6H, Estimat Glomerular Filtration Rate 5.1, Glucose Level 92, Hemoglobin A1c 5.0, Uric Acid 4.6, Calcium Level 9.6, Phosphorus Level 5.5H, Magnesium Level 1.8, Total Bilirubin 0.5, Gamma Glutamyl Transpeptidase 61, Aspartate Amino Transf (AST/SGOT) 13L, Alanine Aminotransferase (ALT/SGPT) 24, Alkaline Phosphatase 168H, Troponin I 0.000, C-Reactive Protein, Quantitative 3.2H, Pro-B-Type Natriuretic Peptide 1264H, Total Protein 8.4H, Albumin 3.7, Globulin 4.7, Albumin/Globulin Ratio 0.8L, Triglycerides Level 168H, Cholesterol Level 164, LDL Cholesterol 70, HDL Cholesterol 66H, Cholesterol/HDL Ratio 2.5L, Thyroid Stimulating Hormone (TSH) 2.488 Height (Feet): 5 Height (Inches): 4.00 Weight (Pounds): 175 General Appearance: no apparent distress Cardiovascular: normal rate Respiratory/Chest: decreased breath sounds Abdomen: soft Objective PE not changed EDUARDO ROSE May 01, 2017 10:58
--- NOTE | 2017-05-01 13:28 | Consultation ---
Consult Note Consult Note ID DIC # [id number] BRITTANY LOPEZ M.D. May 01, 2017 13:28
--- NOTE | 2017-05-01 16:14 | Internal Med Progress Note ---
Subjective Date of Service: May 01, 2017 Physician Name Ugalde,Shavonne Attending Physician Ash Henley MD Current Medications Medications (Trade) Dose Ordered Sig/Marcos Route PRN Reason Start Time Stop Time Status Last Admin Dose Admin Acetaminophen (Tylenol) 650 mg Q4H PRN ORAL Fever (temp>100.5F) 04/30/17 17:00 05/29/17 16:59 Albuterol/ Ipratropium (Albuterol/ Ipratropium) 3 ml Q4H PRN HHN Shortness of Breath 04/30/17 17:00 05/04/17 16:59 Albuterol/ Ipratropium (Albuterol/ Ipratropium) 3 ml Q6HRT HHN 04/30/17 19:00 05/05/17 18:59 04/30/17 20:04 Calcium Acetate (Phoslo) 667 mg TID ORAL 04/30/17 21:00 05/29/17 20:59 05/01/17 13:21 Chlorhexidine Gluconate (Nivia-Hex 2%) 1 applic DAILY@2000 TOPIC 04/30/17 20:00 05/30/17 19:59 04/30/17 21:46 Cinacalcet (Sensipar) 30 mg 3XW ORAL 05/03/17 09:00 05/30/17 08:59 Dextrose (Dextrose 50%) STAT PRN IV Hypoglycemia 04/30/17 17:00 05/29/17 16:59 Diphenhydramine HCl (Benadryl) 50 mg Q6H PRN IVP Itching 04/30/17 17:30 05/30/17 17:29 04/30/17 17:35 Heparin Sodium (Porcine) (Heparin 5000 units/ml) 5,000 units EVERY 12 HOURS SUBQ 04/30/17 21:00 05/29/17 20:59 Levalbuterol HCl (Xopenex) 1.25 mg TIDRT HHN 04/30/17 19:00 05/05/17 18:59 05/01/17 13:28 Ondansetron HCl (Zofran) 4 mg Q6H PRN IVP Nausea & Vomiting 04/30/17 17:00 05/29/17 16:59 Pantoprazole (Protonix) 40 mg BID ORAL 1/12/18 21:00 05/29/17 20:59 05/01/17 08:06 Polyethylene Glycol (Miralax) 17 gm DAILYPRN PRN ORAL Constipation 04/30/17 17:00 05/29/17 16:59 Promethazine HCl/ Codeine (Phenergan with Codeine) 5 ml Q4H PRN ORAL For Cough 04/30/17 18:30 05/30/17 18:29 Sevelamer Carbonate (Renvela) 1,600 mg TID ORAL 05/01/17 13:00 05/31/17 12:59 05/01/17 13:21 Temazepam (Restoril) 15 mg HSPRN PRN ORAL Insomnia 04/30/17 17:00 05/06/17 16:59 Tramadol HCl (Ultram) 50 mg Q6H PRN ORAL For Pain Scale 4-10 04/30/17 17:00 05/06/17 16:59 Allergies: Coded Allergies: CEFAZOLIN (Verified Allergy, Unknown, 10/02/10) CIPROFLOXACIN (Verified Allergy, Unknown, 10/02/10) GENTAMICIN (Verified Allergy, Unknown, 10/02/10) LEVOFLOXACIN (Verified Allergy, Unknown, 10/02/10) PENICILLINS (Verified Allergy, Unknown, ITCH, 10/02/10) Uncoded Allergies: CONTRAST MEDIA (Adverse Reaction, Mild, MILD ITCHING AFTER CONTRAST MEDIA, 04/30/17) ROS Limited/Unobtainable: No Constitutional: Reports: no symptoms HEENT: Reports: no symptoms Cardiovascular: Reports: no symptoms Respiratory: Reports: shortness of breath Gastrointestinal/Abdominal: Reports: no symptoms Genitourinary: Reports: no symptoms Neurologic/Psychiatric: Reports: no symptoms Subjective 52 YO F admitted with Shortness of breath. Cover for Int John-Dr Henley. Objective Last Vital Signs Date Time Temp Pulse Resp B/P (MAP) Pulse Ox O2 Delivery O2 Flow Rate FiO2 05/01/17 13:42 21 05/01/17 13:42 80 16 97 Room Air 05/01/17 11:52 97.6 89/50 Laboratory Tests Test 05/01/17 07:50 White Blood Count 4.4 K/UL (4.8-10.8) L Red Blood Count 3.98 M/UL (4.20-5.40) L Hemoglobin 12.9 G/DL (12.0-16.0) Hematocrit 40.3 % (37.0-47.0) Mean Corpuscular Volume 101 FL (80-99) H Mean Corpuscular Hemoglobin 32.3 PG (27.0-31.0) H Mean Corpuscular Hemoglobin Concent 31.9 G/DL (32.0-36.0) L Red Cell Distribution Width 15.3 % (11.6-14.8) H Platelet Count 137 K/UL (150-450) L Mean Platelet Volume 8.0 FL (6.5-10.1) Neutrophils (%) (Auto) 41.9 % (45.0-75.0) L Lymphocytes (%) (Auto) 29.8 % (20.0-45.0) Monocytes (%) (Auto) 7.5 % (1.0-10.0) Eosinophils (%) (Auto) 19.8 % (0.0-3.0) H Basophils (%) (Auto) 0.9 % (0.0-2.0) Sodium Level 139 MMOL/L (136-145) Potassium Level 3.8 MMOL/L (3.5-5.1) Chloride Level 98 MMOL/L (98-107) Carbon Dioxide Level 31 MMOL/L (21-32) Anion Gap 10 mmol/L (5-15) Blood Urea Nitrogen 27 mg/dL (7-18) H Creatinine 9.6 MG/DL (0.55-1.30) H Estimat Glomerular Filtration Rate 5.1 mL/min (>60) Glucose Level 92 MG/DL (74-106) Hemoglobin A1c 5.0 % (4.3-6.0) Uric Acid 4.6 MG/DL (2.6-7.2) Calcium Level 9.6 MG/DL (8.5-10.1) Phosphorus Level 5.5 MG/DL (2.5-4.9) H Magnesium Level 1.8 MG/DL (1.8-2.4) Total Bilirubin 0.5 MG/DL (0.2-1.0) Gamma Glutamyl Transpeptidase 61 U/L (5-85) Aspartate Amino Transf (AST/SGOT) 13 U/L (15-37) L Alanine Aminotransferase (ALT/SGPT) 24 U/L (12-78) Alkaline Phosphatase 168 U/L (46-116) H Troponin I 0.000 ng/mL (0.000-0.056) C-Reactive Protein, Quantitative 3.2 mg/dL (0.00-0.90) H Pro-B-Type Natriuretic Peptide 1264 pg/mL (0-125) H Total Protein 8.4 G/DL (6.4-8.2) H Albumin 3.7 G/DL (3.4-5.0) Globulin 4.7 g/dL Albumin/Globulin Ratio 0.8 (1.0-2.7) L Triglycerides Level 168 MG/DL (30-150) H Cholesterol Level 164 MG/DL (< 200) LDL Cholesterol 70 mg/dL (<100) HDL Cholesterol 66 MG/DL (40-60) H Cholesterol/HDL Ratio 2.5 (3.3-4.4) L Thyroid Stimulating Hormone (TSH) 2.488 uiU/mL (0.358-3.740) Microbiology Date/Time Source Procedure Growth Status 04/29/17 11:25 Nasal Nares Influenza Types A,B Antigen (DORON) - Final Complete Intake and Output 04/30/17 05/01/17 19:00 07:00 Intake Total 240 ml 360 ml Output Total 2340 ml Balance 240 ml -1980 ml Intake Oral 240 ml 360 ml Hemodialysis UF 2340 ml # Bowel Movements 1 Objective PHYSICAL EXAMINATION: VITAL SIGNS: Temperature 97, pulse of 64, respirations 18, and blood pressure 98/60. GENERAL: The patient is awake, responsive, in no acute distress. HEAD AND NECK: Pupils are reactive to light. Extraocular movements are intact. Neck is supple. No JVD. LUNGS: Good air entry. No wheezing or rales. HEART: S1 and S2. Distant heart sounds. No murmurs or gallops. ABDOMEN: Soft, nondistended, and nontender. Mildly obese. Right groin has a PermCath noted and no sign of infection. No bleeding. EXTREMITIES: No cyanosis, clubbing, or edema. NEUROLOGIC: Cranial nerves II through XII are grossly intact. Motor is 5/5 in all extremities. Gait is intact. Assessment/Plan Assessment/Plan ASSESSMENT: 1. Acute shortness of breath, possibly due to the fluid overload in combination with upper respiratory infection, possible viral versus bacterial. 2. End-stage renal disease, on hemodialysis. 3. History of parathyroidectomy, secondary to third-degree . 4. Morbid obesity. 5. Anemia of chronic kidney disease. PLAN: We will follow up with the dialysis today. Monitor laboratory. Discussed with Dr. Schmidt, Pulmonary, Critical Care and Dr. Conner from Nephrology. Broad-spectrum antibiotics with dose of Solu-Medrol was given in the ER. We will monitor the patient's breathing pattern. At this time, we will consider to discontinue telemetry, and Code status, Full Code. DVT prophylaxis. Heparin subcutaneously. SHAVONNE UGALDE May 01, 2017 16:14
[2017-05-01] MEDS ORDERED: NS 500ML ONE (16:57)
[2017-05-01] MEDS: Dyna-Hex 2% Top Sol 2oz TOPIC SCH (20:24)
[2017-05-02] VITALS: BP 86/50
--- NOTE | 2017-05-02 | Consultation ---
DATE OF CONSULTATION: 05/01/2017 INFECTIOUS DISEASES CONSULTATION CONSULTING PHYSICIAN: Kevin Fairbanks M.D. REQUESTING PHYSICIAN: Cuate Schmidt M.D. REASON FOR CONSULTATION: Evaluation of the patient for chronic obstructive pulmonary disease exacerbation, possible pneumonia, and antibiotic management. HISTORY OF PRESENT ILLNESS: The patient is a 52-year-old female with multiple medical problems as listed below, who was admitted to this medical center due to shortness of breath and cough. The patient received a course of Zithromax for five days prior to admission. The patient has occasional cough with some shortness of breath. Infectious Diseases consultation has been requested for further evaluation of the patient. PAST MEDICAL HISTORY: 1. Significant for Staphylococcus epidermidis bacteremia. 2. End-stage renal disease, on hemodialysis. 3. History of renal transplant x2 in the past (failed). MEDICATIONS: Currently, off of antibiotics. ALLERGIES: Cefazolin, Cipro, , Levaquin, and penicillin. FAMILY HISTORY: Noncontributing. REVIEW OF SYSTEMS: HEENT: No recent change in vision or hearing. PULMONARY: As mentioned above. CARDIOVASCULAR: No chest pain or palpitations. GASTROINTESTINAL/ABDOMEN: No nausea or vomiting. GENITOURINARY: As mentioned above. NEUROLOGIC: No seizure. PHYSICAL EXAMINATION: VITAL SIGNS: Temperature 97.5, pulse 86, respiratory rate 18, and blood pressure 89/50. HEENT: No pale conjunctivae. No icterus. NECK: No lymphadenopathy. CHEST: Coarse breathing sounds. HEART: S1 and S2. ABDOMEN: Soft and obese. EXTREMITIES: No cyanosis at this time. NEUROLOGIC: Awake. LABORATORY AND DIAGNOSTIC DATA: White blood cells 4, hemoglobin 12, and platelets 137. BUN 23 and creatinine 9.6. ALT and AST are unremarkable. Alkaline phosphatase 158. Influenza screening test negative for A and B. CT of the chest at the time of admission, suboptimal opacification of pulmonary arteries making examination nondiagnostic for pulmonary emboli, large hiatal hernia, mild septal thickening suggestive of the overload. ASSESSMENT: The patient is a 52-year-old female with shortness of breath, possible bronchitis. The patient took a course of Zithromax to cover atypicals. The patient is influenza negative. PLAN: 1. We will monitor the patient off of antibiotics. 2. Monitor chest x-ray. 3. We will respiratory support. 4. Based on the patient's clinical course and labs, we will do further recommendations. Thank you, Dr. Schmidt, for following me to participate in the care of this patient. I will follow the patient with you during this hospitalization. Kevin Fairbanks M.D. DR: LYLE JOB#: [id number] CC:
[2017-05-02] MEDS: Albuterol/Ipratropium 3ml neb HHN SCH ×3 (01:00→12:51)
[2017-05-02 04:00] VITALS: BP 90/52
[2017-05-02] MEDS: Levalbuterol Inh UD 1.25mg/0.5ml HHN SCH ×3 (07:00→14:12)
[2017-05-02] MEDS: Calcium Acetate 667mg Tab ORAL SCH ×3 (07:42→18:14)
[2017-05-02 07:43] LABS: HEMATOCRIT 35.2 % (37.0-47.0); HEMOGLOBIN 11.6 G/DL (12.0-16.0); MEAN CORPUSCULAR VOLUME 101 FL (80-99); PLATELET COUNT 112 K/UL (150-450); RED CELL DISTRIBUTION WIDTH 14.7 % (11.6-14.8); WHITE BLOOD COUNT 4.4 K/UL (4.8-10.8)
[2017-05-02] MEDS: Promethazine/Codeine 5ml UD ORAL PRN ×2 (07:43→13:41)
[2017-05-02] MEDS: Heparin 5000 units/ml inj SUBQ SCH (07:45)
[2017-05-02 08:00] VITALS: BP 94/59
[2017-05-02 08:53] LABS: ANION GAP 12 mmol/L (5-15); BLOOD UREA NITROGEN 38 mg/dL (7-18); CALCIUM 9.8 MG/DL (8.5-10.1); CARBON DIOXIDE 27 MMOL/L (21-32); CHLORIDE 101 MMOL/L (98-107); CREATININE 11.7 MG/DL (0.55-1.30); POTASSIUM 4.2 MMOL/L (3.5-5.1); SODIUM 140 MMOL/L (136-145)
[2017-05-02 12:04] VITALS: BP 91/54
--- NOTE | 2017-05-02 12:49 | Nephrology Progress Note ---
Assessment/Plan Problem List: (1) ESRD (end stage renal disease) on dialysis (2) Dyspnea Assessment ESRD Flu like Sxs Low BP Plan Plan: Dialysis 04/30- next 05/03 pulm toilet Per consultants Subjective ROS Limited/Unobtainable: No Constitutional: Reports: malaise Objective Objective Last 24 Hour Vital Signs Date Time Temp Pulse Resp B/P (MAP) Pulse Ox O2 Delivery O2 Flow Rate FiO2 05/02/17 12:04 97.3 81 20 91/54 95 Room Air 05/02/17 09:00 Room Air 21 05/02/17 09:00 Room Air 21 05/02/17 08:00 97.3 89 19 94/59 93 Room Air 05/02/17 07:21 63 16 Room Air 05/02/17 04:00 98.0 80 18 90/52 97 Room Air 05/02/17 00:00 97.5 77 18 86/50 96 Room Air 05/01/17 21:07 98.1 87 18 84/41 96 Room Air 05/01/17 20:00 98.1 74 18 88/49 97 Room Air 05/01/17 19:23 77 16 99 Room Air 21 05/01/17 19:18 81 18 Room Air 21 05/01/17 19:17 21 05/01/17 19:15 81 18 95 Room Air 21 05/01/17 17:59 97.6 05/01/17 16:00 97.0 76 18 118/69 96 Room Air 05/01/17 13:42 21 05/01/17 13:42 80 16 97 Room Air 21 05/01/17 13:28 77 16 94 Room Air 21 Intake and Output 05/01/17 05/02/17 19:00 07:00 Intake Total 480 ml 360 ml Balance 480 ml 360 ml Intake Oral 480 ml 360 ml # Voids 2 1 Laboratory Tests 05/02/17 05:00: White Blood Count 4.4L, Red Blood Count 3.50L, Hemoglobin 11.6L, Hematocrit 35.2L, Mean Corpuscular Volume 101H, Mean Corpuscular Hemoglobin 33.1H, Mean Corpuscular Hemoglobin Concent 32.9, Red Cell Distribution Width 14.7, Platelet Count 112L, Mean Platelet Volume 8.3, Neutrophils (%) (Auto) , Lymphocytes (%) ( Auto) , Monocytes (%) (Auto) , Eosinophils (%) (Auto) , Basophils (%) (Auto) , Differential Total Cells Counted 100, Neutrophils % (Manual) 37L, Lymphocytes % (Manual) 35, Monocytes % (Manual) 6, Eosinophils % (Manual) 22H, Basophils % ( Manual) 0, Band Neutrophils 0, Platelet Estimate DecreasedL, Platelet Morphology Normal, Anisocytosis 1+, Macrocytosis 1+, Sodium Level 140, Potassium Level 4.2, Chloride Level 101, Carbon Dioxide Level 27, Anion Gap 12, Blood Urea Nitrogen 38H, Creatinine 11.7H, Estimat Glomerular Filtration Rate 4.1, Glucose Level 85, Calcium Level 9.8 Height (Feet): 5 Height (Inches): 4.00 Weight (Pounds): 175 General Appearance: no apparent distress Respiratory/Chest: decreased breath sounds Abdomen: soft Objective PE not changed EDUARDO ROSE May 02, 2017 12:49
--- NOTE | 2017-05-02 13:40 | Pulmonology Progress Note ---
Assessment/Plan Problems: (1) Acute bronchitis (2) Dyspnea (3) ESRD (end stage renal disease) on dialysis Assessment/Plan improving titrate fito2 HD today check sputum. med/surg dc home in am Subjective ROS Limited/Unobtainable: No Constitutional: Reports: no symptoms HEENT: Repors: no symptoms Respiratory: Reports: no symptoms Allergies: Coded Allergies: CEFAZOLIN (Verified Allergy, Unknown, 10/02/10) CIPROFLOXACIN (Verified Allergy, Unknown, 10/02/10) GENTAMICIN (Verified Allergy, Unknown, 10/02/10) LEVOFLOXACIN (Verified Allergy, Unknown, 10/02/10) PENICILLINS (Verified Allergy, Unknown, ITCH, 10/02/10) Uncoded Allergies: CONTRAST MEDIA (Adverse Reaction, Mild, MILD ITCHING AFTER CONTRAST MEDIA, 04/30/17) Objective Last 24 Hour Vital Signs Date Time Temp Pulse Resp B/P (MAP) Pulse Ox O2 Delivery O2 Flow Rate FiO2 05/02/17 12:52 Room Air 21 05/02/17 12:52 Room Air 05/02/17 12:04 97.3 81 20 91/54 95 Room Air 05/02/17 09:00 Room Air 21 05/02/17 09:00 Room Air 21 05/02/17 08:00 97.3 89 19 94/59 93 Room Air 05/02/17 07:21 63 16 Room Air 05/02/17 04:00 98.0 80 18 90/52 97 Room Air 05/02/17 00:00 97.5 77 18 86/50 96 Room Air 05/01/17 21:07 98.1 87 18 84/41 96 Room Air 05/01/17 20:00 98.1 74 18 88/49 97 Room Air 05/01/17 19:23 77 16 99 Room Air 21 05/01/17 19:18 81 18 Room Air 21 05/01/17 19:17 21 05/01/17 19:15 81 18 95 Room Air 21 05/01/17 17:59 97.6 05/01/17 16:00 97.0 76 18 118/69 96 Room Air 05/01/17 13:42 21 05/01/17 13:42 80 16 97 Room Air 21 Intake and Output 05/01/17 05/02/17 19:00 07:00 Intake Total 480 ml 360 ml Balance 480 ml 360 ml Intake Oral 480 ml 360 ml # Voids 2 1 General Appearance: WD/WN HEENT: normocephalic Respiratory/Chest: chest wall non-tender Breasts: no masses Cardiovascular: normal peripheral pulses Abdomen: normal bowel sounds Genitourinary: normal external genitalia Skin: no rash Neurologic/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 Complete 04/29/17 16:20 Rectum VRE Culture - Final Enterococcus Faecalis - Vre Complete Laboratory Tests 05/02/17 05:00: White Blood Count 4.4L, Red Blood Count 3.50L, Hemoglobin 11.6L, Hematocrit 35.2L, Mean Corpuscular Volume 101H, Mean Corpuscular Hemoglobin 33.1H, Mean Corpuscular Hemoglobin Concent 32.9, Red Cell Distribution Width 14.7, Platelet Count 112L, Mean Platelet Volume 8.3, Neutrophils (%) (Auto) , Lymphocytes (%) ( Auto) , Monocytes (%) (Auto) , Eosinophils (%) (Auto) , Basophils (%) (Auto) , Differential Total Cells Counted 100, Neutrophils % (Manual) 37L, Lymphocytes % (Manual) 35, Monocytes % (Manual) 6, Eosinophils % (Manual) 22H, Basophils % ( Manual) 0, Band Neutrophils 0, Platelet Estimate DecreasedL, Platelet Morphology Normal, Anisocytosis 1+, Macrocytosis 1+, Sodium Level 140, Potassium Level 4.2, Chloride Level 101, Carbon Dioxide Level 27, Anion Gap 12, Blood Urea Nitrogen 38H, Creatinine 11.7H, Estimat Glomerular Filtration Rate 4.1, Glucose Level 85, Calcium Level 9.8 Current Medications Medications (Trade) Dose Ordered Sig/Marcos Route PRN Reason Start Time Stop Time Status Last Admin Dose Admin Acetaminophen (Tylenol) 650 mg Q4H PRN ORAL Fever (temp>100.5F) 04/30/17 17:00 05/29/17 16:59 05/01/17 21:29 Albuterol/ Ipratropium (Albuterol/ Ipratropium) 3 ml Q4H PRN HHN Shortness of Breath 04/30/17 17:00 05/04/17 16:59 Albuterol/ Ipratropium (Albuterol/ Ipratropium) 3 ml Q6HRT HHN 04/30/17 19:00 05/05/17 18:59 04/30/17 20:04 Calcium Acetate (Phoslo) 667 mg TID ORAL 04/30/17 21:00 05/29/17 20:59 05/02/17 07:42 Chlorhexidine Gluconate (Nivia-Hex 2%) 1 applic DAILY@2000 TOPIC 04/30/17 20:00 05/30/17 19:59 05/01/17 20:24 Cinacalcet (Sensipar) 30 mg 3XW ORAL 05/03/17 09:00 05/30/17 08:59 Dextrose (Dextrose 50%) STAT PRN IV Hypoglycemia 04/30/17 17:00 05/29/17 16:59 Diphenhydramine HCl (Benadryl) 50 mg Q6H PRN IVP Itching 04/30/17 17:30 05/30/17 17:29 04/30/17 17:35 Heparin Sodium (Porcine) (Heparin 5000 units/ml) 5,000 units EVERY 12 HOURS SUBQ 04/30/17 21:00 05/29/17 20:59 Levalbuterol HCl (Xopenex) 1.25 mg TIDRT HHN 04/30/17 19:00 05/05/17 18:59 05/01/17 19:14 Ondansetron HCl (Zofran) 4 mg Q6H PRN IVP Nausea & Vomiting 04/30/17 17:00 05/29/17 16:59 Pantoprazole (Protonix) 40 mg BID ORAL 04/30/17 21:00 05/29/17 20:59 05/02/17 07:42 Polyethylene Glycol (Miralax) 17 gm DAILYPRN PRN ORAL Constipation 04/30/17 17:00 05/29/17 16:59 Promethazine HCl/ Codeine (Phenergan with Codeine) 5 ml Q4H PRN ORAL For Cough 04/30/17 18:30 05/30/17 18:29 05/02/17 07:43 Sevelamer Carbonate (Renvela) 1,600 mg TID ORAL 05/01/17 13:00 05/31/17 12:59 05/02/17 07:43 Temazepam (Restoril) 15 mg HSPRN PRN ORAL Insomnia 04/30/17 17:00 05/06/17 16:59 05/01/17 21:29 Tramadol HCl (Ultram) 50 mg Q6H PRN ORAL For Pain Scale 4-10 04/30/17 17:00 05/06/17 16:59 GABI DENNEY May 02, 2017 13:40
--- NOTE | 2017-05-02 13:46 | Diagnostic Imaging Report ---
Indication: Pain Comparison: 04/29/2017 A single view chest radiograph was obtained. Findings: Size and mediastinal contours are stable. Large hiatal hernia again noted. Dialysis catheter noted with its tip at the region of the right atrium. No pulmonary vascular congestion. There is no focal airspace consolidation. Pleural effusion or pneumothorax. No acute osseous abnormality seen. Multiple surgical clips noted in the bilateral axilla. Stent noted in the right axilla. IMPRESSION: Megaly mild pulmonary vascular congestion. No focal consolidation. Large hiatal hernia. Dialysis catheter in place.
[2017-05-02 16:00] VITALS: BP 91/47
--- NOTE | 2017-05-02 17:14 | Internal Med Progress Note ---
Subjective Date of Service: May 02, 2017 Physician Name Shavonne Ugalde Attending Physician Ash Henley MD Current Medications Medications (Trade) Dose Ordered Sig/Marcos Route PRN Reason Start Time Stop Time Status Last Admin Dose Admin Acetaminophen (Tylenol) 650 mg Q4H PRN ORAL Fever (temp>100.5F) 04/30/17 17:00 05/29/17 16:59 05/01/17 21:29 Albuterol/ Ipratropium (Albuterol/ Ipratropium) 3 ml Q4H PRN HHN Shortness of Breath 04/30/17 17:00 05/04/17 16:59 Albuterol/ Ipratropium (Albuterol/ Ipratropium) 3 ml Q6HRT HHN 04/30/17 19:00 05/05/17 18:59 04/30/17 20:04 Calcium Acetate (Phoslo) 667 mg TID ORAL 04/30/17 21:00 05/29/17 20:59 05/02/17 13:41 Cephalexin (Keflex) 500 mg FOUR TIMES A DAY ORAL 05/02/17 18:00 05/09/17 17:59 Chlorhexidine Gluconate (Nivia-Hex 2%) 1 applic DAILY@2000 TOPIC 04/30/17 20:00 05/30/17 19:59 05/01/17 20:24 Cinacalcet (Sensipar) 30 mg 3XW ORAL 05/03/17 09:00 05/30/17 08:59 Dextrose (Dextrose 50%) STAT PRN IV Hypoglycemia 04/30/17 17:00 05/29/17 16:59 Diphenhydramine HCl (Benadryl) 50 mg Q6H PRN IVP Itching 04/30/17 17:30 05/30/17 17:29 04/30/17 17:35 Heparin Sodium (Porcine) (Heparin 5000 units/ml) 5,000 units EVERY 12 HOURS SUBQ 04/30/17 21:00 05/29/17 20:59 Levalbuterol HCl (Xopenex) 1.25 mg TIDRT HHN 04/30/17 19:00 05/05/17 18:59 05/02/17 14:12 Ondansetron HCl (Zofran) 4 mg Q6H PRN IVP Nausea & Vomiting 04/30/17 17:00 05/29/17 16:59 Pantoprazole (Protonix) 40 mg BID ORAL 04/30/17 21:00 05/29/17 20:59 05/02/17 17:10 Polyethylene Glycol (Miralax) 17 gm DAILYPRN PRN ORAL Constipation 04/30/17 17:00 05/29/17 16:59 Promethazine HCl/ Codeine (Phenergan with Codeine) 5 ml Q4H PRN ORAL For Cough 04/30/17 18:30 05/30/17 18:29 05/02/17 13:41 Sevelamer Carbonate (Renvela) 1,600 mg TID ORAL 05/01/17 13:00 05/31/17 12:59 05/02/17 17:11 Temazepam (Restoril) 15 mg HSPRN PRN ORAL Insomnia 04/30/17 17:00 05/06/17 16:59 05/01/17 21:29 Tramadol HCl (Ultram) 50 mg Q6H PRN ORAL For Pain Scale 4-10 04/30/17 17:00 05/06/17 16:59 Allergies: Coded Allergies: CEFAZOLIN (Verified Allergy, Unknown, 10/02/10) CIPROFLOXACIN (Verified Allergy, Unknown, 10/02/10) GENTAMICIN (Verified Allergy, Unknown, 10/02/10) LEVOFLOXACIN (Verified Allergy, Unknown, 10/02/10) PENICILLINS (Verified Allergy, Unknown, ITCH, 10/02/10) Uncoded Allergies: CONTRAST MEDIA (Adverse Reaction, Mild, MILD ITCHING AFTER CONTRAST MEDIA, 04/30/17) ROS Limited/Unobtainable: No Constitutional: Reports: no symptoms HEENT: Reports: no symptoms Cardiovascular: Reports: no symptoms Respiratory: Reports: no symptoms Gastrointestinal/Abdominal: Reports: no symptoms Genitourinary: Reports: no symptoms Neurologic/Psychiatric: Reports: no symptoms Subjective 52 YO F admitted with Shortness of breath. Cover for Int John-Dr Henley. Objective Last Vital Signs Date Time Temp Pulse Resp B/P (MAP) Pulse Ox O2 Delivery O2 Flow Rate FiO2 05/02/17 16:00 97.2 74 18 91/47 93 Room Air 05/02/17 14:20 21 Laboratory Tests Test 05/02/17 05:00 White Blood Count 4.4 K/UL (4.8-10.8) L Red Blood Count 3.50 M/UL (4.20-5.40) L Hemoglobin 11.6 G/DL (12.0-16.0) L Hematocrit 35.2 % (37.0-47.0) L Mean Corpuscular Volume 101 FL (80-99) H Mean Corpuscular Hemoglobin 33.1 PG (27.0-31.0) H Mean Corpuscular Hemoglobin Concent 32.9 G/DL (32.0-36.0) Red Cell Distribution Width 14.7 % (11.6-14.8) Platelet Count 112 K/UL (150-450) L Mean Platelet Volume 8.3 FL (6.5-10.1) Neutrophils (%) (Auto) % (45.0-75.0) Lymphocytes (%) (Auto) % (20.0-45.0) Monocytes (%) (Auto) % (1.0-10.0) Eosinophils (%) (Auto) % (0.0-3.0) Basophils (%) (Auto) % (0.0-2.0) Differential Total Cells Counted 100 Neutrophils % (Manual) 37 % (45-75) L Lymphocytes % (Manual) 35 % (20-45) Monocytes % (Manual) 6 % (1-10) Eosinophils % (Manual) 22 % (0-3) H Basophils % (Manual) 0 % (0-2) Band Neutrophils 0 % (0-8) Platelet Estimate Decreased L Platelet Morphology Normal Anisocytosis 1+ Macrocytosis 1+ Sodium Level 140 MMOL/L (136-145) Potassium Level 4.2 MMOL/L (3.5-5.1) Chloride Level 101 MMOL/L (98-107) Carbon Dioxide Level 27 MMOL/L (21-32) Anion Gap 12 mmol/L (5-15) Blood Urea Nitrogen 38 mg/dL (7-18) H Creatinine 11.7 MG/DL (0.55-1.30) H Estimat Glomerular Filtration Rate 4.1 mL/min (>60) Glucose Level 85 MG/DL (74-106) Calcium Level 9.8 MG/DL (8.5-10.1) Intake and Output 05/01/17 05/02/17 19:00 07:00 Intake Total 480 ml 360 ml Balance 480 ml 360 ml Intake Oral 480 ml 360 ml # Voids 2 1 Objective PHYSICAL EXAMINATION: VITAL SIGNS: Temperature 97, pulse of 64, respirations 18, and blood pressure 98/60. GENERAL: The patient is awake, responsive, in no acute distress. HEAD AND NECK: Pupils are reactive to light. Extraocular movements are intact. Neck is supple. No JVD. LUNGS: Good air entry. No wheezing or rales. HEART: S1 and S2. Distant heart sounds. No murmurs or gallops. ABDOMEN: Soft, nondistended, and nontender. Mildly obese. Right groin has a PermCath noted and no sign of infection. No bleeding. EXTREMITIES: No cyanosis, clubbing, or edema. NEUROLOGIC: Cranial nerves II through XII are grossly intact. Motor is 5/5 in all extremities. Gait is intact. Assessment/Plan Assessment/Plan ASSESSMENT: 1. Acute shortness of breath, possibly due to the fluid overload in combination with upper respiratory infection, possible viral versus bacterial. 2. End-stage renal disease, on hemodialysis. 3. History of parathyroidectomy, secondary to third-degree . 4. Morbid obesity. 5. Anemia of chronic kidney disease. PLAN: We will follow up with the dialysis today. Monitor laboratory. Discussed with Dr. Schmidt, Pulmonary, Critical Care and Dr. Conner from Nephrology. Broad-spectrum antibiotics with dose of Solu-Medrol was given in the ER. We will monitor the patient's breathing pattern. At this time, we will consider to discontinue telemetry, and Code status, Full Code. DVT prophylaxis. Heparin subcutaneously. Discharge home today SHAVONNE UGALDE May 02, 2017 17:14
[2017-05-02] MEDS ORDERED: Cephalexin 500mg cap ORAL SCH (18:00)
[2017-05-02] MEDS ORDERED: Tubing IV Secondary IV ONE (19:44)
[2017-05-02] MEDS ORDERED: D5 1/2NS 1000ml IV ONE (19:44)
[2017-05-02 19:45] VITALS: BP 96/52
[2017-05-03] MEDS ORDERED: Sensipar 30mg Tab ORAL SCH (09:00)
--- NOTE | 2017-05-04 08:15 | Discharge Summary ---
Discharge Summary Hospital Course Date of Admission Apr 29, 2017 at 16:16 Date of Discharge May 02, 2017 at 19:45 Admitting Diagnosis Dyspnea on Exertion/Chest Pain HPI Suyapa Fuller is a 52 year old female who was admitted on Apr 29, 2017 at 16: 16 for Dyspnea On Exertion, Chest Pain Hospital Course dc summary #[id number] Discharge Medications Continued Medications: Albuterol Sulfate (Ventolin Hfa) 18 Gm Hfa.aer.ad 1 PUFF INH EVERY 6 HOURS for SOB, cough, #18 GM 0 Refills Albuterol Sulfate* (Albuterol Sulfate Mdi*) 8.5 Gm Hfa.aer.ad 2 PUFF INH Q4H, #1 INH 0 Refills Calcium Acetate (Phoslo) 667 Mg Tab 667 MG PO TID Cinacalcet* (Sensipar*) 30 Mg Tablet 30 MG PO 3XW Cinacalcet* (Sensipar*) 30 Mg Tablet 30 MG ORAL 3XW, TAB Folic Acid/Vitamin B Comp W-C (Renavit Tablet) 0.8 Mg Tablet 0 PO, TAB Take one tablet by mouth daily Guaifenesin/Dextromethorphan (Guaifenesin Dm Syrup) 5 Ml Syr 5 ML PO QHS for 7 Days Hydrocodone Bit/Acetaminophen 5-325* ([place] 5-325*) 1 Each Tablet 1 TAB ORAL Q6H PRN for For Pain, #20 TAB Hydrocodone Bit/Acetaminophen 5-500 (Vicodin 5-500) 1 Each Tablet 1 TAB ORAL Q4H PRN for For Pain, #30 TAB Levalbuterol Tartrate (Xopenex Hfa) 15 Gm Hfa.aer.ad 15 GM IH Q6HR, #1 Omeprazole (Omeprazole) 40 Mg Capsule. 40 MG PO DAILY Omeprazole (Omeprazole) 20 Mg Capsule. 20 MG ORAL BID, CAP Prednisone* (Prednisone*) 20 Mg Tablet 20 MG ORAL BID, #10 TAB 0 Refills Promethazine/Dextromethorphan (Promethazine-Dm Syrup) 6.25 Mg/5 Ml Syrp 1 TSP ORAL Q6H PRN for For Cough, #118 ML 0 Refills Sevelamer Carbonate (Renvela) 800 Mg Tab 800 MG PO TID Tramadol Hcl* (Ultram*) 50 Mg Tablet 50 MG ORAL Q6H PRN for For Pain, #10 TAB 0 Refills Vitamin B Cmplx/Vit C/Folic AC (Nephro-Dmitry Tablet) 0.8 Mg Tablet 1 TAB ORAL DAILY, #30 TAB 0 Refills Zolpidem Tartrate* (Ambien*) 10 Mg Tablet 10 MG PO HS PRN Discharge Condition Upon Discharge: stable Discharge Disposition Patient was discharged to Home (01) Discharge Diagnoses: Discharge Instructions Discharge Instructions Special Instructions I have been assigned to complete a D/C Summary on this account. I was not involved in the patient management Johanne King NP (Vanchtein) May 04, 2017 08:15
--- NOTE | 2017-05-04 22:45 | Discharge Summary 2 SIG ---
DATE OF ADMISSION: 04/29/2017 DATE OF DISCHARGE: 05/02/2017 REASON FOR ADMISSION: 52-year-old female with past medical history significant for end-stage renal disease, on hemodialysis, history of AV graft placement, history of parathyroidectomy, carpal tunnel syndrome, open reduction and internal fixation of the left elbow, morbid obesity, and diabetes, presented to the emergency department with a complaint of shortness of breath progressively worsening over the past few days. The patient reported flu-like symptoms, which were getting progressively worse and were associated with wheezing and cough. Workup in the emergency department revealed stable vital signs. Troponin and EKG were unremarkable. Chest x-ray showed no clear evidence of the congestive heart failure. Influenza screen test was negative The patient was admitted to the hospital for further management with acute shortness of breath, possibly due to the fluid overload in combination with upper respiratory infection, possible viral versus bacterial; acute bronchitis; flu- like disease; end-stage renal disease, on hemodialysis; hypertension; morbid obesity; anemia of chronic kidney disease. HOSPITAL COURSE: The patient was admitted. Pulmonology, Nephrology and ID consults were requested. Hemodialysis was arranged as per nurse practitioner physicians assistant. Renal parameters and electrolytes were closely monitored. Electrolytes corrected as needed. Nephrotoxics were avoided. CTA of the chest revealed no evidence of the PE. Echocardiogram revealed preserved ejection fraction of 55% to 60% and right ventricular systolic pressure of 43 consistent with moderate pulmonary hypertension as well as evidence of [id number] mitral regurgitation. Supplemental oxygen provided as needed to keep pulse oximetry above 92%. Pulmonary toilet was on board and provided on as needed basis. The patient was started on empiric antibiotics. Antitussives provided as needed. No leukocytosis. No fever. The patient was started on low dose steroid, which was gradually tapered and changed to oral prior to discharge. ID clsoely followed and recommended to keep the patient off antibiotics. The patient possibly had bronchitis as per ID. The patient was on DVT and GI prophylaxis. The patient clinically improved. Pulse oximetry was stable on room air. Cough significantly subsided. The patient was stable for discharge. FINAL DIAGNOSES: 1. Acute bronchitis. 2. Acute shortness of breath likely due to bronchitis and possible flu-like disease. 3. Flu-like disease. 4. End-stage renal disease, on hemodialysis. 5. Hypertension. 6. Morbid obesity. 7. Anemia of chronic kidney disease. DISCHARGE MEDICATIONS: See medication reconciliation list. DISCHARGE INSTRUCTIONS: The patient was discharged home. Follow up with the primary medical doctor next week. Follow up with outpatient hemodialysis. Ash Henley M.D. I have been assigned to dictate discharge summary on this account and I was not involved in the patient's management. Johanne King (Vanchtein) NPrateek DR: CAMERON JOB#: [id number] CC: KAVEH
== END 2017-05-02 19:45 | disposition home or self-care (01) | DRG 202 ==
LOC: EMR 11:15 → EDBEDREQ 16:01 → 2E 16:16 → EDBEDREQ 18:25 → 2E 23:01 → 3E 04-30 15:48
PROC: 5A1D70Z Performance of Urinary Filtration, Intermittent, Less than 6 Hours Per Day (ICD-10-PCS; principal; 2017-04-30)
DX: J20.9 Acute bronchitis, unspecified (principal); N18.6 End stage renal disease; I12.0 Hypertensive chronic kidney disease with stage 5 chronic kidney disease or end stage renal disease; E11.22 Type 2 diabetes mellitus with diabetic chronic kidney disease; Z99.2 Dependence on renal dialysis; J11.1 Influenza due to unidentified influenza virus with other respiratory manifestations; E66.01 Morbid (severe) obesity due to excess calories; D63.1 Anemia in chronic kidney disease; J44.9 Chronic obstructive pulmonary disease, unspecified; Z88.1 Allergy status to other antibiotic agents; Z88.0 Allergy status to penicillin; Z88.8 Allergy status to other drugs, medicaments and biological substances; Z91.041 Radiographic dye allergy status; Z79.01 Long term (current) use of anticoagulants
CPT/HCPCS: 36415; 71045; 71275; 80048; 80053; 80061; 80069; 82977; 83036; 83735; 83880; 84100; 84443; 84484; 84550; 85007; 85025; 86140; 86710; 87081; 93005; 93306; 94640; 94664; 99285; J2405; J7620

== ENCOUNTER 2017-05-15 15:22 | Inpatient (IN) | payer MEDICARE, OTHER ==
[~2017-05-15] VITALS: Ht 167.6 cm; Wt 93.9 kg
[2017-05-15 16:35] LABS: BASOPHILS % (AUTO) 0.8 % (0.0-2.0); EOSINOPHILS % (AUTO) 11.1 % (0.0-3.0); HEMATOCRIT 40.6 % (37.0-47.0); LYMPHOCYTES % (AUTO) 27.3 % (20.0-45.0); MEAN CORPUSCULAR VOLUME 98 FL (80-99); MONOCYTES % (AUTO) 6.2 % (1.0-10.0); NEUTROPHILS % (AUTO) 54.6 % (45.0-75.0); PLATELET COUNT 175 K/UL (150-450); RED BLOOD COUNT 4.14 M/UL (4.20-5.40); RED CELL DISTRIBUTION WIDTH 13.8 % (11.6-14.8); WHITE BLOOD COUNT 5.1 K/UL (4.8-10.8)
[2017-05-15 17:06] LABS: ANION GAP 18 mmol/L (5-15); BLOOD UREA NITROGEN 48 mg/dL (7-18); CALCIUM 10.7 MG/DL (8.5-10.1); CARBON DIOXIDE 23 MMOL/L (21-32); CHLORIDE 100 MMOL/L (98-107); CREATININE 13.4 MG/DL (0.55-1.30); POTASSIUM 4.2 MMOL/L (3.5-5.1); SODIUM 141 MMOL/L (136-145)
[2017-05-15 17:08] VITALS: BP 82/41
[2017-05-15 17:21] LABS: ALANINE AMINOTRANSFERASE 37 U/L (12-78); ALBUMIN 3.9 G/DL (3.4-5.0); ALBUMIN/GLOBULIN RATIO 0.7 (1.0-2.7); ALKALINE PHOSPHATASE 305 U/L (46-116); ASPARTATE AMINO TRANSFERASE 42 U/L (15-37); BILIRUBIN,TOTAL 0.3 MG/DL (0.2-1.0); CKMB 0.5 NG/ML (0.0-3.6); CREATINE KINASE 30 U/L (26-308)
--- NOTE | 2017-05-15 19:03 | Emergency Room Report ---
History of Present Illness General Chief Complaint: Dyspnea/Respdistress Source: Patient, Medical Record Present Illness HPI 52-year-old female presents ED for evaluation. Patient states that shes having shortness of breath the last one week. Denies any chest pain. Worse with walking. Denies any leg swelling. History of end-stage renal disease on dialysis. gets dialysis on Wednesday. Denies fevers or chills. No other aggravating relieving factors. Denies any other associated symptoms Allergies: Coded Allergies: CEFAZOLIN (Verified Allergy, Unknown, 10/02/10) CIPROFLOXACIN (Verified Allergy, Unknown, 10/02/10) GENTAMICIN (Verified Allergy, Unknown, 10/02/10) LEVOFLOXACIN (Verified Allergy, Unknown, 10/02/10) PENICILLINS (Verified Allergy, Unknown, ITCH, 10/02/10) Uncoded Allergies: CONTRAST MEDIA (Adverse Reaction, Mild, MILD ITCHING AFTER CONTRAST MEDIA, 04/30/17) Patient History Past Medical History: HTN, asthma, renal disease, dialysis Past Surgical History: none Pertinent Family History: none Social History: Denies: smoking, alcohol use, drug use Now: No Immunizations: UTD Reviewed Nursing Documentation: PMH: Agreed, PSxH: Agreed Nursing Documentation-PMH Past Medical History: No History, Except For Hx Cardiac Problems: Yes Hx Pacemaker: Yes Hx Asthma: Yes Hx Diabetes: Yes Hx Cancer: No Hx Gastrointestinal Problems: No Hx Dialysis: Yes - M,W,F Hx Neurological Problems: No Review of Systems All Other Systems: negative except mentioned in HPI Physical Exam Vital Signs Date Time Temp Pulse Resp B/P (MAP) Pulse Ox O2 Delivery O2 Flow Rate FiO2 05/15/17 15:29 98.4 90 20 82/50 81 Room Air 05/15/17 17:08 2.0 Sp02 EP Interpretation: reviewed, normal General Appearance: no apparent distress, alert, GCS 15, non-toxic Head: normocephalic, atraumatic Eyes: bilateral eye normal inspection, bilateral eye PERRL ENT: hearing grossly normal, normal pharynx, no angioedema, normal voice Neck: full range of motion, supple/symm/no masses Respiratory: chest non-tender, lungs clear, normal breath sounds, speaking full sentences Cardiovascular #1: regular rate, rhythm, no edema Cardiovascular #2: 2+ carotid (R), 2+ carotid (L), 2+ radial (R), 2+ radial (L) , 2+ dorsalis pedis (R), 2+ dorsalis pedis (L) Gastrointestinal: normal bowel sounds, non tender, soft, non-distended, no guarding, no rebound Rectal: deferred Genitourinary: normal inspection, no CVA tenderness Musculoskeletal: back normal, gait/station normal, normal range of motion, non- tender Neurologic: alert, oriented x3, responsive, motor strength/tone normal, sensory intact, speech normal Psychiatric: judgement/insight normal, memory normal, mood/affect normal, no suicidal/homicidal ideation Reflexes: 3+ bicep (R), 3+ bicep (L), 3+ tricep (R), 3+ tricep (L), 3+ knee (R) , 3+ knee (L) Skin: normal color, no rash, warm/dry, well hydrated Lymphatic: no adenopathy Medical Decision Making Diagnostic Impression: Primary Impression: ESRD (end stage renal disease) on dialysis Additional Impression: Dyspnea Qualified Codes: R06.00 - Dyspnea, unspecified ER Course Hospital Course 52-year-old female presents ED complaining of shortness of breath x 1 week Differential diagnoses include: NC/unstable angina, contusion, muscle strain, PTX, rib fracture Clinical course 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 After initial history and physical I ordered labs, EKG, chest x-ray labs reviewed- no leukocytosis, hemoglobin/hematocrit stable, creatinine elevated, troponins negative, BNP elevated EKG - NSR, no acute ischemic changes interpreted by me Chest x-ray- cardiomegaly Case discussed with Dr. Henley and he agreed to accept the patient to his service for further care and support I. I feel this is a highly complex case requiring extensive working including EKG/Rhythm strip, Xray/CT/US, Blood/urine lab work, repeat exams while in ED, and administration of strong opiates/narcotics for pain control, admission to hospital or close patient follow up. Diagnosis - ESRD on dialysis, dyspnea admitted to telemetry in serious condition Labs Test 05/15/17 16:08 White Blood Count 5.1 K/UL (4.8-10.8) Red Blood Count 4.14 M/UL (4.20-5.40) Hemoglobin 13.0 G/DL (12.0-16.0) Hematocrit 40.6 % (37.0-47.0) Mean Corpuscular Volume 98 FL (80-99) Mean Corpuscular Hemoglobin 31.5 PG (27.0-31.0) Mean Corpuscular Hemoglobin Concent 32.2 G/DL (32.0-36.0) Red Cell Distribution Width 13.8 % (11.6-14.8) Platelet Count 175 K/UL (150-450) Mean Platelet Volume 9.7 FL (6.5-10.1) Neutrophils (%) (Auto) 54.6 % (45.0-75.0) Lymphocytes (%) (Auto) 27.3 % (20.0-45.0) Monocytes (%) (Auto) 6.2 % (1.0-10.0) Eosinophils (%) (Auto) 11.1 % (0.0-3.0) Basophils (%) (Auto) 0.8 % (0.0-2.0) Sodium Level 141 MMOL/L (136-145) Potassium Level 4.2 MMOL/L (3.5-5.1) Chloride Level 100 MMOL/L (98-107) Carbon Dioxide Level 23 MMOL/L (21-32) Anion Gap 18 mmol/L (5-15) Blood Urea Nitrogen 48 mg/dL (7-18) Creatinine 13.4 MG/DL (0.55-1.30) Estimat Glomerular Filtration Rate 3.5 mL/min (>60) Glucose Level 91 MG/DL (74-106) Lactic Acid Level 2.20 mmol/L (0.66-2.22) Calcium Level 10.7 MG/DL (8.5-10.1) Total Bilirubin 0.3 MG/DL (0.2-1.0) Aspartate Amino Transf (AST/SGOT) 42 U/L (15-37) Alanine Aminotransferase (ALT/SGPT) 37 U/L (12-78) Alkaline Phosphatase 305 U/L (46-116) Total Creatine Kinase 30 U/L (26-308) Creatine Kinase MB 0.5 NG/ML (0.0-3.6) Creatine Kinase MB Relative Index 1.6 Troponin I 0.000 ng/mL (0.000-0.056) Pro-B-Type Natriuretic Peptide 857 pg/mL (0-125) Total Protein 9.2 G/DL (6.4-8.2) Albumin 3.9 G/DL (3.4-5.0) Globulin 5.3 g/dL Albumin/Globulin Ratio 0.7 (1.0-2.7) EKG Diagnostic Results Rate: normal Rhythm: NSR ST Segments: no acute changes ASA given to the pt in ED: No Rhythm Strip Diag. Results EP Interpretation: yes Rhythm: NSR, no PVC's, no ectopy Chest X-Ray Diagnostic Results Chest X-Ray Diagnostic Results : Chest X-Ray Ordered: Yes # of Views/Limited/Complete: 1 View Indication: Shortness of Breath EP Interpretation: Yes Interpretation: no consolidation, no effusion, no pneumothorax, no acute cardiopulmonary disease Impression: No acute disease Electronically Signed by: Electronically signed by Gordo Oquendo MD Last Vital Signs Date Time Temp Pulse Resp B/P (MAP) Pulse Ox O2 Delivery O2 Flow Rate FiO2 05/15/17 17:45 100 19 110/57 100 Nasal Cannula 3.0 05/15/17 17:08 97.0 Status: improved Disposition: ADMITTED INPATIENT Condition: Serious Referrals: Ash Henley MD (PCP) GORDO OQUENDO M.D. May 15, 2017 19:03
[2017-05-15 19:22] VITALS: BP 87/57
[2017-05-15] MEDS ORDERED: Promethazine/DM 6.25mg/5ml ORAL PRN ×2 (19:30→19:45)
[2017-05-15] MEDS ORDERED: Zolpidem 5mg tab ORAL PRN (19:30)
--- NOTE | 2017-05-15 19:43 | Consultation ---
History of Present Illness General Date patient seen: May 16, 2017 Chief Complaint: Dyspnea/Respdistress Present Illness HPI 52-year-old female with ESRF on HD presented to ED for evaluation of shortness of breath the last one week. Denies any chest pain. Worse with walking. Denies any leg swelling. She gets dialysis on Wednesday. Denies fevers or chills. No other aggravating relieving factors. Denies any other associated symptoms. She is admitted to telemetry for further work up. Allergies: Coded Allergies: CEFAZOLIN (Verified Allergy, Unknown, 10/02/10) CIPROFLOXACIN (Verified Allergy, Unknown, 10/02/10) GENTAMICIN (Verified Allergy, Unknown, 10/02/10) LEVOFLOXACIN (Verified Allergy, Unknown, 10/02/10) PENICILLINS (Verified Allergy, Unknown, ITCH, 10/02/10) Uncoded Allergies: CONTRAST MEDIA (Adverse Reaction, Mild, MILD ITCHING AFTER CONTRAST MEDIA, 04/30/17) Medication History Scheduled Albuterol Sulfate* (Albuterol Sulfate Mdi*), 2 PUFF INH Q4H Cinacalcet* (Sensipar*), 30 MG ORAL 3XW, (Reported) Omeprazole (Omeprazole), 20 MG ORAL BID, (Reported) Sevelamer Carbonate (Renvela), 1,600 MG ORAL THREE TIMES A DAY, (Reported) Scheduled PRN Promethazine/Dextromethorphan (Promethazine-Dm Syrup), 1 TSP ORAL Q6H PRN for For Cough Zolpidem Tartrate* (Ambien*), 10 MG PO HS PRN, (Reported) Discontinued Medications Albuterol Sulfate (Ventolin Hfa), 1 PUFF INH EVERY 6 HOURS Discontinued Reason: Pt stopped taking med Azithromycin* (Zithromax*), 250 MG ORAL DAILY Discontinued Reason: Pt stopped taking med Calcium Acetate (Phoslo), 667 MG PO TID, (Reported) Discontinued Reason: Pt stopped taking med Folic Acid/Vitamin B Comp W-C (Renavit Tablet), 0 PO, (Reported) Discontinued Reason: Pt stopped taking med Guaifenesin/Dextromethorphan (Guaifenesin Dm Syrup), 5 ML PO QHS Discontinued Reason: Pt stopped taking med Hydrocodone Bit/Acetaminophen 5-325* ([place] 5-325*), 1 TAB ORAL Q6H PRN for For Pain Discontinued Reason: Pt stopped taking med Hydrocodone Bit/Acetaminophen 5-500 (Vicodin 5-500), 1 TAB ORAL Q4H PRN for For Pain Discontinued Reason: Pt stopped taking med Levalbuterol Tartrate (Xopenex Hfa), 15 GM IH Q6HR Discontinued Reason: Pt stopped taking med Omeprazole (Omeprazole), 40 MG PO DAILY, (Reported) Discontinued Reason: Pt stopped taking med Prednisone* (Prednisone*), 20 MG ORAL BID Discontinued Reason: Pt stopped taking med Tramadol Hcl* (Ultram*), 50 MG ORAL Q6H PRN for For Pain Discontinued Reason: Pt stopped taking med Vancomycin Hcl (Vancomycin Hcl), 0 IVPB, (Reported) Discontinued Reason: Pt stopped taking med Vancomycin Hcl/D5w (Vancomycin-D5w 1 G/250 Ml), 0 IVPB, (Reported) Discontinued Reason: Pt stopped taking med Vancomycin Hcl/D5w (Vancomycin-D5w 1 G/250 Ml), 1,250 GM IVPB Q24H, (Reported) Discontinued Reason: Pt stopped taking med Vancomycin/0.9 % Sod Chloride (Vancomycin 1 G/200Ml-0.9% NaCl), 0 IV pharm to dose, (Reported) Discontinued Reason: Pt stopped taking med Vitamin B Cmplx/Vit C/Folic AC (Nephro-Dmitry Tablet), 1 TAB ORAL DAILY, (Reported ) Discontinued Reason: Pt stopped taking med Warfarin Sod* (Coumadin*), 7 MG PO DAILY, (Reported) Discontinued Reason: Pt stopped taking med Patient History Healthcare decision maker Resuscitation status Advanced Directive on File Past Medical/Surgical History Past Medical/Surgical History: (1) ESRD (end stage renal disease) on dialysis (2) Hypoparathyroidism Review of Systems Constitutional: Reports: no symptoms Eye: Reports: no symptoms ENT: Reports: no symptoms Respiratory: Reports: no symptoms Physical Exam General Appearance: WD/WN Lines, tubes and drains: peripheral HEENT: normocephalic, atraumatic Neck: non-tender, normal alignment Respiratory/Chest: chest wall non-tender, lungs clear Breasts: no masses Cardiovascular/Chest: normal peripheral pulses Abdomen: normal bowel sounds, non tender Genitourinary/Rectal: normal genital exam Extremities: normal range of motion Skin Exam: normal pigmentation Last 24 Hour Vital Signs Date Time Temp Pulse Resp B/P (MAP) Pulse Ox O2 Delivery O2 Flow Rate FiO2 05/15/17 19:22 97.0 70 28 87/57 100 Nasal Cannula 2.0 05/15/17 17:10 76 16 Nasal Cannula 2.0 05/15/17 17:08 97.0 76 16 82/41 98 Nasal Cannula 2.0 05/15/17 15:29 98.4 90 20 82/50 81 Room Air Laboratory Tests Test 05/15/17 16:08 White Blood Count 5.1 K/UL (4.8-10.8) Red Blood Count 4.14 M/UL (4.20-5.40) L Hemoglobin 13.0 G/DL (12.0-16.0) Hematocrit 40.6 % (37.0-47.0) Mean Corpuscular Volume 98 FL (80-99) Mean Corpuscular Hemoglobin 31.5 PG (27.0-31.0) H Mean Corpuscular Hemoglobin Concent 32.2 G/DL (32.0-36.0) Red Cell Distribution Width 13.8 % (11.6-14.8) Platelet Count 175 K/UL (150-450) Mean Platelet Volume 9.7 FL (6.5-10.1) Neutrophils (%) (Auto) 54.6 % (45.0-75.0) Lymphocytes (%) (Auto) 27.3 % (20.0-45.0) Monocytes (%) (Auto) 6.2 % (1.0-10.0) Eosinophils (%) (Auto) 11.1 % (0.0-3.0) H Basophils (%) (Auto) 0.8 % (0.0-2.0) Sodium Level 141 MMOL/L (136-145) Potassium Level 4.2 MMOL/L (3.5-5.1) Chloride Level 100 MMOL/L (98-107) Carbon Dioxide Level 23 MMOL/L (21-32) Anion Gap 18 mmol/L (5-15) H Blood Urea Nitrogen 48 mg/dL (7-18) H Creatinine 13.4 MG/DL (0.55-1.30) H Estimat Glomerular Filtration Rate 3.5 mL/min (>60) Glucose Level 91 MG/DL (74-106) Lactic Acid Level 2.20 mmol/L (0.66-2.22) Calcium Level 10.7 MG/DL (8.5-10.1) H Total Bilirubin 0.3 MG/DL (0.2-1.0) Aspartate Amino Transf (AST/SGOT) 42 U/L (15-37) H Alanine Aminotransferase (ALT/SGPT) 37 U/L (12-78) Alkaline Phosphatase 305 U/L (46-116) H Total Creatine Kinase 30 U/L (26-308) Creatine Kinase MB 0.5 NG/ML (0.0-3.6) Creatine Kinase MB Relative Index 1.6 Troponin I 0.000 ng/mL (0.000-0.056) Pro-B-Type Natriuretic Peptide 857 pg/mL (0-125) H Total Protein 9.2 G/DL (6.4-8.2) H Albumin 3.9 G/DL (3.4-5.0) Globulin 5.3 g/dL Albumin/Globulin Ratio 0.7 (1.0-2.7) L Microbiology Date/Time Source Procedure Growth Status 05/15/17 16:04 Nasal Nares Influenza Types A,B Antigen (DORON) - Final Complete Height (Feet): 5 Height (Inches): 6.00 Weight (Pounds): 160 Medications Current Medications Medications (Trade) Dose Ordered Sig/Marcos Route PRN Reason Start Time Stop Time Status Last Admin Dose Admin Acetaminophen (Tylenol) 650 mg Q4H PRN ORAL T>100.5 05/15/17 19:45 06/14/17 19:44 Albuterol/ Ipratropium (Albuterol/ Ipratropium) 3 ml Q4H PRN HHN Shortness of Breath 05/15/17 19:45 05/20/17 19:44 Cinacalcet (Sensipar) 30 mg 3XW ORAL 05/17/17 09:00 06/16/17 08:59 Dextrose (Dextrose 50%) STAT PRN IV Hypoglycemia 05/15/17 19:45 06/14/17 19:44 Heparin Sodium (Porcine) (Heparin 5000 units/ml) 5,000 units EVERY 12 HOURS SUBQ 05/15/17 21:00 06/14/17 20:59 Ondansetron HCl (Zofran) 4 mg Q6H PRN IVP Nausea & Vomiting 05/15/17 19:45 06/14/17 19:44 Ondansetron HCl (Zofran) 4 mg Q6H PRN IVP Nausea & Vomiting 05/15/17 19:45 06/14/17 19:44 UNV Polyethylene Glycol (Miralax) 17 gm DAILYPRN PRN ORAL Constipation 05/15/17 19:45 06/14/17 19:44 Promethazine HCl/ Dextromethorphan (Phenergan DM) 6.25 mg Q6H PRN ORAL For Cough 05/15/17 19:45 06/14/17 19:29 Sevelamer Carbonate (Renvela) 1,600 mg THREE TIMES A DAY ORAL 05/16/17 09:00 06/15/17 08:59 Temazepam (Restoril) 15 mg HSPRN PRN ORAL Insomnia 05/15/17 21:00 05/22/17 20:59 Zolpidem Tartrate (Ambien) 5 mg BEDTIME PRN ORAL INSOMNIA 05/15/17 19:30 05/22/17 19:29 Assessment/Plan Problem List: (1) Acute bronchitis (2) Hypoparathyroidism ICD Codes: E20.9 - Hypoparathyroidism, unspecified SNOMED: 99778387 (3) ESRD (end stage renal disease) on dialysis ICD Codes: N18.6 - End stage renal disease; Z99.2 - Dependence on renal dialysis SNOMED: 397458076 Assessment/Plan respiratory treatment check sputum chest pt titrate fio2 to sat of 92% HD by conservation educator cxr reviewed, not much pulmonary edema. GABI DENNEY May 15, 2017 19:43
[2017-05-15] MEDS ORDERED: Albuterol/Ipratropium 3ml neb HHN PRN (19:45)
[2017-05-15] MEDS ORDERED: Miralax 17gm pkt ORAL PRN (19:45)
[2017-05-15] MEDS: Heparin 5000 units/ml inj SUBQ SCH (21:41)
[2017-05-16 07:15] LABS: BASOPHILS % (AUTO) 1.4 % (0.0-2.0); EOSINOPHILS % (AUTO) 16.3 % (0.0-3.0); HEMATOCRIT 35.4 % (37.0-47.0); HEMOGLOBIN 11.3 G/DL (12.0-16.0); LYMPHOCYTES % (AUTO) 31.9 % (20.0-45.0); MEAN CORPUSCULAR VOLUME 98 FL (80-99); MONOCYTES % (AUTO) 8.7 % (1.0-10.0); NEUTROPHILS % (AUTO) 41.8 % (45.0-75.0); PLATELET COUNT 140 K/UL (150-450); RED CELL DISTRIBUTION WIDTH 13.7 % (11.6-14.8); WHITE BLOOD COUNT 4.2 K/UL (4.8-10.8)
[2017-05-16 07:43] LABS: ALBUMIN 3.2 G/DL (3.4-5.0); ANION GAP 16 mmol/L (5-15); BLOOD UREA NITROGEN 54 mg/dL (7-18); CALCIUM 9.7 MG/DL (8.5-10.1); CARBON DIOXIDE 21 MMOL/L (21-32); CHLORIDE 102 MMOL/L (98-107); CREATININE 14.3 MG/DL (0.55-1.30); PHOSPHORUS 6.3 MG/DL (2.5-4.9); POTASSIUM 5.3 MMOL/L (3.5-5.1); SODIUM 139 MMOL/L (136-145)
[2017-05-16 08:00] VITALS: BP 82/57
--- NOTE | 2017-05-16 08:45 | Pulmonology Progress Note ---
Assessment/Plan Problems: (1) Acute bronchitis (2) Hypoparathyroidism (3) ESRD (end stage renal disease) on dialysis Assessment/Plan respiratory treatment check sputum HD sputum induction d/w Dr. Conner pt wants regular diet. Subjective ROS Limited/Unobtainable: No Constitutional: Reports: no symptoms HEENT: Repors: no symptoms Respiratory: Reports: no symptoms Allergies: Coded Allergies: CEFAZOLIN (Verified Allergy, Unknown, 10/02/10) CIPROFLOXACIN (Verified Allergy, Unknown, 10/02/10) GENTAMICIN (Verified Allergy, Unknown, 10/02/10) LEVOFLOXACIN (Verified Allergy, Unknown, 10/02/10) PENICILLINS (Verified Allergy, Unknown, ITCH, 10/02/10) Uncoded Allergies: CONTRAST MEDIA (Adverse Reaction, Mild, MILD ITCHING AFTER CONTRAST MEDIA, 04/30/17) Objective Last 24 Hour Vital Signs Date Time Temp Pulse Resp B/P (MAP) Pulse Ox O2 Delivery O2 Flow Rate FiO2 05/16/17 04:00 68 05/16/17 00:00 72 05/15/17 20:00 78 05/15/17 19:30 97.0 70 28 87/57 100 Nasal Cannula 2.0 05/15/17 19:22 97.0 70 28 87/57 100 Nasal Cannula 2.0 05/15/17 17:10 76 16 Nasal Cannula 2.0 05/15/17 17:08 97.0 76 16 82/41 98 Nasal Cannula 2.0 05/15/17 15:29 98.4 90 20 82/50 81 Room Air Intake and Output 05/15/17 05/16/17 19:00 07:00 Intake Total 100 ml Output Total 100 ml Balance 0 ml Intake Oral 0 ml IV Total 100 ml Output Urine Total 100 ml Objective General Appearance: WD/WN Lines, tubes and drains: peripheral HEENT: normocephalic, atraumatic Neck: non-tender, normal alignment Respiratory/Chest: chest wall non-tender, lungs clear Breasts: no masses Cardiovascular/Chest: normal peripheral pulses Abdomen: normal bowel sounds, non tender Genitourinary/Rectal: normal genital exam Extremities: normal range of motion Skin Exam: normal pigmentation Microbiology Date/Time Source Procedure Growth Status 05/15/17 16:04 Nasal Nares Influenza Types A,B Antigen (DORON) - Final Complete Laboratory Tests 05/15/17 16:08: White Blood Count 5.1, Red Blood Count 4.14L, Hemoglobin 13.0, Hematocrit 40.6, Mean Corpuscular Volume 98, Mean Corpuscular Hemoglobin 31.5H, Mean Corpuscular Hemoglobin Concent 32.2, Red Cell Distribution Width 13.8, Platelet Count 175, Mean Platelet Volume 9.7, Neutrophils (%) (Auto) 54.6, Lymphocytes (%) (Auto) 27.3, Monocytes (%) (Auto) 6.2, Eosinophils (%) (Auto) 11.1H, Basophils (%) ( Auto) 0.8, Sodium Level 141, Potassium Level 4.2, Chloride Level 100, Carbon Dioxide Level 23, Anion Gap 18H, Blood Urea Nitrogen 48H, Creatinine 13.4H, Estimat Glomerular Filtration Rate 3.5, Glucose Level 91, Lactic Acid Level 2.20 , Calcium Level 10.7H, Total Bilirubin 0.3, Aspartate Amino Transf (AST/SGOT) 42H, Alanine Aminotransferase (ALT/SGPT) 37, Alkaline Phosphatase 305H, Total Creatine Kinase 30, Creatine Kinase MB 0.5, Creatine Kinase MB Relative Index 1.6, Troponin I 0.000, Pro-B-Type Natriuretic Peptide 857H, Total Protein 9.2H, Albumin 3.9, Globulin 5.3, Albumin/Globulin Ratio 0.7L 05/16/17 04:35: White Blood Count 4.2L, Red Blood Count 3.60L, Hemoglobin 11.3L, Hematocrit 35.4L, Mean Corpuscular Volume 98, Mean Corpuscular Hemoglobin 31.4H, Mean Corpuscular Hemoglobin Concent 31.9L, Red Cell Distribution Width 13.7, Platelet Count 140L, Mean Platelet Volume 9.4, Neutrophils (%) (Auto) 41.8L, Lymphocytes (%) (Auto) 31.9, Monocytes (%) (Auto) 8.7, Eosinophils (%) (Auto) 16.3H, Basophils (%) (Auto) 1.4, Sodium Level 139, Potassium Level 5.3H, Chloride Level 102, Carbon Dioxide Level 21, Anion Gap 16H, Blood Urea Nitrogen 54H, Creatinine 14.3H, Estimat Glomerular Filtration Rate 3.3, Glucose Level 78 , Calcium Level 9.7, Troponin I 0.000, Albumin 3.2L, Phosphorus Level 6.3H Current Medications Medications (Trade) Dose Ordered Sig/Marcos Route PRN Reason Start Time Stop Time Status Last Admin Dose Admin Acetaminophen (Tylenol) 650 mg Q4H PRN ORAL T>100.5 05/15/17 19:45 06/14/17 19:44 Albuterol/ Ipratropium (Albuterol/ Ipratropium) 3 ml Q4H PRN HHN Shortness of Breath 05/15/17 19:45 05/20/17 19:44 Cinacalcet (Sensipar) 30 mg 3XW ORAL 05/17/17 09:00 06/16/17 08:59 Dextrose (Dextrose 50%) STAT PRN IV Hypoglycemia 05/15/17 19:45 06/14/17 19:44 Heparin Sodium (Porcine) (Heparin 5000 units/ml) 5,000 units EVERY 12 HOURS SUBQ 05/15/17 21:00 06/14/17 20:59 05/15/17 21:41 Ondansetron HCl (Zofran) 4 mg Q6H PRN IVP Nausea & Vomiting 05/15/17 19:45 06/14/17 19:44 Pantoprazole (Protonix) 40 mg EVERY 12 HOURS ORAL 05/15/17 21:00 06/14/17 20:59 05/15/17 21:40 Polyethylene Glycol (Miralax) 17 gm DAILYPRN PRN ORAL Constipation 05/15/17 19:45 06/14/17 19:44 Promethazine HCl/ Dextromethorphan (Phenergan DM) 6.25 mg Q6H PRN ORAL For Cough 05/15/17 19:45 06/14/17 19:29 Sevelamer Carbonate (Renvela) 1,600 mg THREE TIMES A DAY ORAL 05/16/17 09:00 06/15/17 08:59 Temazepam (Restoril) 15 mg HSPRN PRN ORAL Insomnia 05/15/17 21:00 05/22/17 20:59 05/16/17 00:14 Zolpidem Tartrate (Ambien) 5 mg BEDTIME PRN ORAL INSOMNIA 05/15/17 19:30 05/22/17 19:29 GABI DENNEY May 16, 2017 08:45
[2017-05-16] MEDS ORDERED: Promethazine/Codeine 5ml UD ORAL PRN (09:00)
--- NOTE | 2017-05-16 09:29 | Diagnostic Imaging Report ---
Indication: Dyspnea Comparison: 05/02/2017; CT of the chest 04/30/2017 A single view chest radiograph was obtained. Findings: Size and mediastinal contours are stable. Hiatal hernia again noted. Dialysis catheter noted with its tip at the region of the right atrium -unchanged. There is no focal airspace consolidation. Pleural effusion or pneumothorax. No acute osseous abnormality seen. Multiple surgical clips noted in the bilateral axilla. Stent noted in the right axilla. IMPRESSION: No radiographic evidence of acute cardiopulmonary disease. Large hiatal hernia. Dialysis catheter in place.
[2017-05-16] MEDS: Heparin 5000 units/ml inj SUBQ SCH ×2 (10:14→20:42)
--- NOTE | 2017-05-16 10:32 | Consultation ---
Consult Note Consult Note asked to eval for dialysis management Patient admitted for dyspnea due HD M W Fr on HD for 35 years- s/p Parathyroidectomy and 2 transplant Patient presents with complaints of general weakness She also complains of exertional dyspnea Patient is on dialysis Allergies: Coded Allergies: CEFAZOLIN (Verified Allergy, Unknown, 10/02/10) CIPROFLOXACIN (Verified Allergy, Unknown, 10/02/10) GENTAMICIN (Verified Allergy, Unknown, 10/02/10) LEVOFLOXACIN (Verified Allergy, Unknown, 10/02/10) PENICILLINS (Verified Allergy, Unknown, ITCH, 10/02/10) Hx Cardiac Problems: Yes - Hypotension Hx Asthma: Yes Hx Gastrointestinal Problems: Yes Hx Dialysis: Yes - MWF, last dialysis 01/20/17. Hx Neurological Problems: No - ESRD Dyspnea Assessment/Plan Plan: Dialysis ordered for 05/17- Permacath in her thigh Per consultants Midodrine for low BP per orders EDUARDO ROSE May 16, 2017 10:32
[2017-05-16] MEDS ORDERED: Sodium Polystyrene Sulfonate 15gm Powder ORAL ONE (11:00)
[2017-05-16 12:00] VITALS: BP 80/45
[2017-05-16] MEDS ORDERED: Acetaminophen 500mg (ES) tab ORAL PRN (12:00)
[2017-05-16] MEDS: Midodrine 10mg tab ORAL SCH ×2 (13:00→18:21)
[2017-05-16] MEDS: Docusate 100mg cap ORAL SCH ×2 (13:01→18:21)
[2017-05-16 16:00] VITALS: BP 85/53
--- NOTE | 2017-05-16 16:31 | History & Physical ---
History and Physical History & Physicial Dictated for Int Med-Dr Henley no. [id number]. SHAVONNE UGALDE May 16, 2017 16:31
[2017-05-16 20:00] VITALS: BP 78/48
--- NOTE | 2017-05-16 22:17 | History and Physical Report ---
DATE OF ADMISSION: 05/15/2017 CHIEF COMPLAINT: The patient is a 52-year-old female, who presents with chief complaint of shortness of breath. HISTORY OF PRESENT ILLNESS: The patient was admitted to [facility] earlier in April 2017. Please see history and physical and discharge summary dictated at that time. The patient presented to [place] [facility] complaining of one-week history of shortness of breath. The patient denies cough. The patient denies fevers or chills. The patient was admitted for shortness of breath to rule out volume overload versus pneumonia. PAST MEDICAL HISTORY: Significant for: 1. End-stage renal disease, on hemodialysis every Wednesday, Wednesday, and Wednesday. 2. Anemia of chronic renal disease. 3. Hypertension. 4. Obesity. PAST SURGICAL HISTORY: Significant for: 1. AV graft placement. 2. Cholecystectomy. 3. Parathyroidectomy. 4. Carpal tunnel release. 5. Open reduction and internal fixation of left elbow. CURRENT MEDICATIONS: 1. Albuterol nebulizer q.4 h. p.r.n. 2. Sensipar 30 mg p.o. three times weekly. 3. Omeprazole 20 mg p.o. twice daily. 4. Renvela 1600 mg p.o. three times daily. 5. Ambien 10 mg p.o. nightly. ALLERGIES: 1. Cefazolin. 2. Ciprofloxacin. 3. Gentamicin. 4. Levaquin. 5. Penicillin. SOCIAL HISTORY: The patient is single and disabled. The patient denies tobacco or alcohol use. REVIEW OF SYSTEMS: CONSTITUTIONAL: The patient denies weight loss or weight gain. The patient denies fevers or chills. HEENT: The patient denies ear or throat pain. The patient denies headache. CARDIOVASCULAR: The patient denies palpitations or chest pain. CHEST: The patient complains of shortness of breath as above. The patient denies wheezes. ABDOMEN: The patient denies nausea, vomiting, diarrhea, or constipation. GENITOURINARY: The patient denies dysuria or increased frequency of urination. NEUROMUSCULAR: The patient denies seizures or generalized weakness. PHYSICAL EXAMINATION: VITAL SIGNS: Temperature 97.2 degrees, respirations 20, pulse 76, and blood pressure 82/57. GENERAL: The patient is well-developed, well-nourished, obese, female, in no apparent distress. HEENT: Eyes, pupils equal and responsive to light and accommodation. Extraocular movements are intact. NECK: Supple without lymphadenopathy. CHEST: Few expiratory wheezes bilaterally with rales at bilateral bases, otherwise clear to auscultation. CARDIOVASCULAR: Regular rate. S1 and S2 are normal without murmurs, rubs, or gallops. ABDOMEN: Soft, nontender, and nondistended. Positive bowel sounds. No evidence of hepatosplenomegaly. Currently, no rebound or guarding noted. EXTREMITIES: Negative for clubbing, cyanosis, or edema. NEUROLOGIC: Cranial nerves II to XII are grossly intact without focal deficits. Motor strength is 5/5 bilaterally. Deep tendon reflexes are 2+ plantar. LABORATORY STUDIES: WBC 5.1, hemoglobin 13.3, hematocrit 40.6, and platelets 175,000. Sodium 141, potassium 4.2, chloride 100, CO2 23, BUN 48, creatinine 13.4, and glucose 91. Chest x-ray showed no acute disease. ASSESSMENT: This is a 52-year-old female: 1. Shortness of breath. 2. End-stage renal disease. 3. Hypertension. 4. Obesity. TREATMENT: 1. Shortness of breath. A Pulmonary consultation was obtained by Dr. Cuate Schmidt. The patient is currently tolerating nasal cannula. may be secondary to volume overload. We will follow recommendations of Pulmonary. 2. End-stage renal disease. The patient is currently on hemodialysis every Wednesday, Wednesday, and Wednesday. A Nephrology consultation has been obtained with Dr. Fredrick Conner. 3. Hypertension. The patient is currently hypotensive. 4. Obesity. Edward Harrell M.D. DR: Myriam JOB#: [id number] CC:
[2017-05-17] VITALS (7 sets, daily range): BP systolic 71–86; BP diastolic 37–52
[2017-05-17 07:22] LABS: EOSINOPHILS % (AUTO) 13.3 % (0.0-3.0); HEMATOCRIT 36.5 % (37.0-47.0); HEMOGLOBIN 11.5 G/DL (12.0-16.0); LYMPHOCYTES % (AUTO) 36.1 % (20.0-45.0); MEAN CORPUSCULAR VOLUME 99 FL (80-99); MONOCYTES % (AUTO) 7.6 % (1.0-10.0); PLATELET COUNT 149 K/UL (150-450); RED BLOOD COUNT 3.69 M/UL (4.20-5.40); RED CELL DISTRIBUTION WIDTH 14.1 % (11.6-14.8); WHITE BLOOD COUNT 4.6 K/UL (4.8-10.8)
[2017-05-17 08:08] LABS: ALANINE AMINOTRANSFERASE 36 U/L (12-78); ALBUMIN 3.4 G/DL (3.4-5.0); ALBUMIN/GLOBULIN RATIO 0.8 (1.0-2.7); ALKALINE PHOSPHATASE 255 U/L (46-116); ANION GAP 15 mmol/L (5-15); ASPARTATE AMINO TRANSFERASE 26 U/L (15-37); BILIRUBIN,TOTAL 0.3 MG/DL (0.2-1.0); BLOOD UREA NITROGEN 66 mg/dL (7-18); CALCIUM 9.8 MG/DL (8.5-10.1); CARBON DIOXIDE 23 MMOL/L (21-32); CHLORIDE 101 MMOL/L (98-107); CREATININE 15.9 MG/DL (0.55-1.30); GAMMA GLUTAMYL TRANSPEPTIDASE 118 U/L (5-85); PHOSPHORUS 6.5 MG/DL (2.5-4.9); POTASSIUM 5.1 MMOL/L (3.5-5.1); SODIUM 139 MMOL/L (136-145)
[2017-05-17] MEDS ORDERED: Sensipar 30mg Tab ORAL SCH (09:00)
[2017-05-17] MEDS: Midodrine 10mg tab ORAL SCH ×3 (09:38→18:00)
[2017-05-17] MEDS: Docusate 100mg cap ORAL SCH ×3 (09:39→18:00)
[2017-05-17] MEDS: Heparin 5000 units/ml inj SUBQ SCH ×3 (09:39→20:32)
--- NOTE | 2017-05-17 10:23 | Internal Med Progress Note ---
Subjective Date of Service: May 17, 2017 Physician Name Shavonne Ugalde Attending Physician Ash Henley MD Current Medications Medications (Trade) Dose Ordered Sig/Marcos Route PRN Reason Start Time Stop Time Status Last Admin Dose Admin Acetaminophen (Tylenol) 650 mg Q4H PRN ORAL pain/headache 05/16/17 12:00 06/15/17 11:59 05/17/17 00:48 Albuterol/ Ipratropium (Albuterol/ Ipratropium) 3 ml Q4H PRN HHN Shortness of Breath 05/15/17 19:45 05/20/17 19:44 05/16/17 23:32 Cinacalcet (Sensipar) 30 mg 3XW ORAL 05/17/17 09:00 06/16/17 08:59 05/17/17 09:38 Dextrose (Dextrose 50%) STAT PRN IV Hypoglycemia 05/15/17 19:45 06/14/17 19:44 Docusate Sodium (Colace) 100 mg THREE TIMES A DAY ORAL 05/16/17 13:00 06/15/17 12:59 05/17/17 09:39 Heparin Sodium (Porcine) (Heparin 5000 units/ml) 5,000 units EVERY 12 HOURS SUBQ 05/15/17 21:00 06/14/17 20:59 05/16/17 20:42 Midodrine (Pro-Amatine) 10 mg THREE TIMES A DAY ORAL 05/16/17 13:00 06/15/17 12:59 05/17/17 09:38 Ondansetron HCl (Zofran) 4 mg Q6H PRN IVP Nausea & Vomiting 05/15/17 19:45 06/14/17 19:44 Pantoprazole (Protonix) 40 mg EVERY 12 HOURS ORAL 05/15/17 21:00 06/14/17 20:59 05/17/17 09:39 Polyethylene Glycol (Miralax) 17 gm DAILYPRN PRN ORAL Constipation 05/15/17 19:45 06/14/17 19:44 Promethazine HCl/ Codeine (Phenergan with Codeine) 5 ml Q4H PRN ORAL For Cough 05/16/17 09:00 06/15/17 08:59 05/16/17 10:15 Sevelamer Carbonate (Renvela) 1,600 mg THREE TIMES A DAY ORAL 05/16/17 09:00 06/15/17 08:59 05/17/17 09:45 Temazepam (Restoril) 15 mg HSPRN PRN ORAL Insomnia 05/15/17 21:00 05/22/17 20:59 05/16/17 00:14 Zolpidem Tartrate (Ambien) 5 mg BEDTIME PRN ORAL INSOMNIA 05/15/17 19:30 05/22/17 19:29 Allergies: Coded Allergies: CEFAZOLIN (Verified Allergy, Unknown, 10/02/10) CIPROFLOXACIN (Verified Allergy, Unknown, 10/02/10) GENTAMICIN (Verified Allergy, Unknown, 10/02/10) LEVOFLOXACIN (Verified Allergy, Unknown, 10/02/10) PENICILLINS (Verified Allergy, Unknown, ITCH, 10/02/10) Uncoded Allergies: CONTRAST MEDIA (Adverse Reaction, Mild, MILD ITCHING AFTER CONTRAST MEDIA, 04/30/17) ROS Limited/Unobtainable: No Constitutional: Reports: no symptoms HEENT: Reports: no symptoms Cardiovascular: Reports: no symptoms Respiratory: Reports: shortness of breath Gastrointestinal/Abdominal: Reports: no symptoms Genitourinary: Reports: no symptoms Neurologic/Psychiatric: Reports: no symptoms Subjective 52 YO F admitted with shortness of breath. ?volume overload? Await hemodialysis today. Cover for Int Med Dr Henley. Objective Last Vital Signs Date Time Temp Pulse Resp B/P (MAP) Pulse Ox O2 Delivery O2 Flow Rate FiO2 05/17/17 08:00 79 05/17/17 08:00 98.7 18 82/49 96 Nasal Cannula 2.0 05/16/17 23:37 36 General Appearance: WD/WN, no apparent distress, alert EENT: PERRL/EOMI, normal ENT inspection, TMs normal Neck: non-tender, normal alignment, supple, normal inspection Cardiovascular: normal peripheral pulses, normal rate, regular rhythm, no gallop/murmur, no JVD Respiratory/Chest: chest wall non-tender, no respiratory distress, no accessory muscle use, crackles/rales, rhonchi - bilaterally, expiratory wheezing Abdomen: normal bowel sounds, non tender, soft, no organomegaly, no mass Extremities: normal range of motion, non-tender Neurologic: warp picker II-XII grossly normal, no motor/sensory deficits Skin: normal pigmentation, warm/dry Laboratory Tests Test 05/17/17 05:10 White Blood Count 4.6 K/UL (4.8-10.8) L Red Blood Count 3.69 M/UL (4.20-5.40) L Hemoglobin 11.5 G/DL (12.0-16.0) L Hematocrit 36.5 % (37.0-47.0) L Mean Corpuscular Volume 99 FL (80-99) Mean Corpuscular Hemoglobin 31.2 PG (27.0-31.0) H Mean Corpuscular Hemoglobin Concent 31.6 G/DL (32.0-36.0) L Red Cell Distribution Width 14.1 % (11.6-14.8) Platelet Count 149 K/UL (150-450) L Mean Platelet Volume 9.2 FL (6.5-10.1) Neutrophils (%) (Auto) 42.0 % (45.0-75.0) L Lymphocytes (%) (Auto) 36.1 % (20.0-45.0) Monocytes (%) (Auto) 7.6 % (1.0-10.0) Eosinophils (%) (Auto) 13.3 % (0.0-3.0) H Basophils (%) (Auto) 1.0 % (0.0-2.0) Sodium Level 139 MMOL/L (136-145) Potassium Level 5.1 MMOL/L (3.5-5.1) Chloride Level 101 MMOL/L (98-107) Carbon Dioxide Level 23 MMOL/L (21-32) Anion Gap 15 mmol/L (5-15) Blood Urea Nitrogen 66 mg/dL (7-18) H Creatinine 15.9 MG/DL (0.55-1.30) H Estimat Glomerular Filtration Rate 2.9 mL/min (>60) Glucose Level 85 MG/DL (74-106) Uric Acid 7.6 MG/DL (2.6-7.2) H Calcium Level 9.8 MG/DL (8.5-10.1) Phosphorus Level 6.5 MG/DL (2.5-4.9) H Magnesium Level 1.5 MG/DL (1.8-2.4) L Total Bilirubin 0.3 MG/DL (0.2-1.0) Gamma Glutamyl Transpeptidase 118 U/L (5-85) H Aspartate Amino Transf (AST/SGOT) 26 U/L (15-37) Alanine Aminotransferase (ALT/SGPT) 36 U/L (12-78) Alkaline Phosphatase 255 U/L (46-116) H Troponin I 0.000 ng/mL (0.000-0.056) Pro-B-Type Natriuretic Peptide 953 pg/mL (0-125) H Total Protein 7.8 G/DL (6.4-8.2) Albumin 3.4 G/DL (3.4-5.0) Globulin 4.4 g/dL Albumin/Globulin Ratio 0.8 (1.0-2.7) L Thyroid Stimulating Hormone (TSH) 1.562 uiU/mL (0.358-3.740) Cortisol AM Sample Pending Microbiology Date/Time Source Procedure Growth Status 05/15/17 16:20 Blood Blood Culture - Preliminary NO GROWTH AFTER 24 HOURS Resulted 05/15/17 16:08 Blood Blood Culture - Preliminary NO GROWTH AFTER 24 HOURS Resulted 05/15/17 17:25 Nasal Nares MRSA Culture - Final NO METHICILLIN RESISTANT STAPH AUREUS... Complete 05/15/17 16:04 Nasal Nares Influenza Types A,B Antigen (DORON) - Final Complete 05/15/17 17:25 Rectum VRE Culture - Final NO VANCOMYCIN RESISTANT ENTEROCOCCUS ... Complete Intake and Output 05/16/17 05/17/17 19:00 07:00 Intake Total 240 ml Balance 240 ml Intake Oral 240 ml Assessment/Plan Problem List: (1) HTN (hypertension) (2) Shortness of breath Assessment & Plan: Resolving. Tolerating nasal canula. See pulmonary note. (3) ESRD (end stage renal disease) on dialysis Assessment & Plan: Await hemodialysis today. See nephrology note. Status: progressing SHAVONNE UGALDE May 17, 2017 10:22
[2017-05-17] MEDS ORDERED: DiphenhydrAMINE 50mg/ml Inj IVP PRN (11:30)
[2017-05-17] MEDS ORDERED: Heparin Sod 1000 units/ml 10ml IV PRN (12:00)
[2017-05-17] MEDS ORDERED: DiphenhydrAMINE 50mg/ml Inj IVP ONE (12:30)
--- NOTE | 2017-05-17 12:46 | Pulmonology Progress Note ---
Assessment/Plan Problems: (1) Acute bronchitis (2) Hypoparathyroidism (3) ESRD (end stage renal disease) on dialysis Assessment/Plan was short of breath last night respiratory treatment check sputum HD today sputum induction d/w Dr. Conner Subjective ROS Limited/Unobtainable: No Constitutional: Reports: no symptoms HEENT: Repors: no symptoms Allergies: Coded Allergies: CEFAZOLIN (Verified Allergy, Unknown, 10/02/10) CIPROFLOXACIN (Verified Allergy, Unknown, 10/02/10) GENTAMICIN (Verified Allergy, Unknown, 10/02/10) LEVOFLOXACIN (Verified Allergy, Unknown, 10/02/10) PENICILLINS (Verified Allergy, Unknown, ITCH, 10/02/10) Uncoded Allergies: CONTRAST MEDIA (Adverse Reaction, Mild, MILD ITCHING AFTER CONTRAST MEDIA, 04/30/17) Objective Last 24 Hour Vital Signs Date Time Temp Pulse Resp B/P (MAP) Pulse Ox O2 Delivery O2 Flow Rate FiO2 05/17/17 12:00 96.8 66 19 82/51 97 Nasal Cannula 3.0 05/17/17 08:00 79 05/17/17 08:00 98.7 76 18 82/49 96 Nasal Cannula 2.0 05/17/17 04:00 98.1 60 20 86/46 92 Nasal Cannula 2.0 05/17/17 04:00 58 05/17/17 00:00 83 05/17/17 00:00 97.7 73 25 71/40 95 Nasal Cannula 2.0 05/16/17 23:37 71 20 94 Nasal Cannula 4.0 36 05/16/17 20:00 97.6 74 22 78/48 90 Nasal Cannula 2.0 05/16/17 20:00 75 05/16/17 19:13 77 16 Nasal Cannula 2.0 05/16/17 16:00 97.4 60 18 85/53 97 Room Air 05/16/17 16:00 71 Intake and Output 05/16/17 05/17/17 19:00 07:00 Intake Total 240 ml Balance 240 ml Intake Oral 240 ml Objective General Appearance: WD/WN Lines, tubes and drains: peripheral HEENT: normocephalic, atraumatic Neck: non-tender, normal alignment Respiratory/Chest: chest wall non-tender, lungs clear Breasts: no masses Cardiovascular/Chest: normal peripheral pulses Abdomen: normal bowel sounds, non tender Genitourinary/Rectal: normal genital exam Extremities: normal range of motion Skin Exam: normal pigmentation Microbiology Date/Time Source Procedure Growth Status 05/15/17 16:20 Blood Blood Culture - Preliminary NO GROWTH AFTER 24 HOURS Resulted 05/15/17 16:08 Blood Blood Culture - Preliminary NO GROWTH AFTER 24 HOURS Resulted 05/15/17 17:25 Nasal Nares MRSA Culture - Final NO METHICILLIN RESISTANT STAPH AUREUS... Complete 05/15/17 16:04 Nasal Nares Influenza Types A,B Antigen (DORON) - Final Complete 05/15/17 17:25 Rectum VRE Culture - Final NO VANCOMYCIN RESISTANT ENTEROCOCCUS ... Complete Laboratory Tests 05/17/17 05:10: White Blood Count 4.6L, Red Blood Count 3.69L, Hemoglobin 11.5L, Hematocrit 36.5L, Mean Corpuscular Volume 99, Mean Corpuscular Hemoglobin 31.2H, Mean Corpuscular Hemoglobin Concent 31.6L, Red Cell Distribution Width 14.1, Platelet Count 149L, Mean Platelet Volume 9.2, Neutrophils (%) (Auto) 42.0L, Lymphocytes (%) (Auto) 36.1, Monocytes (%) (Auto) 7.6, Eosinophils (%) (Auto) 13.3H, Basophils (%) (Auto) 1.0, Sodium Level 139, Potassium Level 5.1, Chloride Level 101, Carbon Dioxide Level 23, Anion Gap 15, Blood Urea Nitrogen 66H, Creatinine 15.9H, Estimat Glomerular Filtration Rate 2.9, Glucose Level 85 , Uric Acid 7.6H, Calcium Level 9.8, Phosphorus Level 6.5H, Magnesium Level 1.5L , Total Bilirubin 0.3, Gamma Glutamyl Transpeptidase 118H, Aspartate Amino Transf (AST/SGOT) 26, Alanine Aminotransferase (ALT/SGPT) 36, Alkaline Phosphatase 255H, Troponin I 0.000, Pro-B-Type Natriuretic Peptide 953H, Total Protein 7.8, Albumin 3.4, Globulin 4.4, Albumin/Globulin Ratio 0.8L, Thyroid Stimulating Hormone (TSH) 1.562, Cortisol AM Sample [Pending] Current Medications Medications (Trade) Dose Ordered Sig/Marcos Route PRN Reason Start Time Stop Time Status Last Admin Dose Admin Acetaminophen (Tylenol) 650 mg Q4H PRN ORAL pain/headache 05/16/17 12:00 06/15/17 11:59 05/17/17 00:48 Albuterol/ Ipratropium (Albuterol/ Ipratropium) 3 ml Q4H PRN HHN Shortness of Breath 05/15/17 19:45 05/20/17 19:44 05/16/17 23:32 Cinacalcet (Sensipar) 30 mg 3XW ORAL 05/17/17 09:00 06/16/17 08:59 05/17/17 09:38 Dextrose (Dextrose 50%) STAT PRN IV Hypoglycemia 05/15/17 19:45 06/14/17 19:44 Diphenhydramine HCl (Benadryl) 25 mg Q6H PRN IVP Itching 05/17/17 11:30 06/16/17 11:29 Docusate Sodium (Colace) 100 mg THREE TIMES A DAY ORAL 05/16/17 13:00 06/15/17 12:59 05/17/17 09:39 Heparin Sodium (Porcine) (Heparin 5000 units/ml) 5,000 units EVERY 12 HOURS SUBQ 05/15/17 21:00 06/14/17 20:59 05/16/17 20:42 Heparin Sodium (Porcine) (Heparin Sod 1000 units/ml 10ml) 2,000 unit ONCE PRN IV For HD Use 05/17/17 12:00 05/18/17 23:59 Midodrine (Pro-Amatine) 10 mg THREE TIMES A DAY ORAL 05/17/17 13:00 06/16/17 12:59 Ondansetron HCl (Zofran) 4 mg Q6H PRN IVP Nausea & Vomiting 05/15/17 19:45 06/14/17 19:44 Pantoprazole (Protonix) 40 mg EVERY 12 HOURS ORAL 05/15/17 21:00 06/14/17 20:59 05/17/17 09:39 Polyethylene Glycol (Miralax) 17 gm DAILYPRN PRN ORAL Constipation 05/15/17 19:45 06/14/17 19:44 Promethazine HCl/ Codeine (Phenergan with Codeine) 5 ml Q4H PRN ORAL For Cough 05/16/17 09:00 06/15/17 08:59 05/16/17 10:15 Sevelamer Carbonate (Renvela) 1,600 mg THREE TIMES A DAY ORAL 05/16/17 09:00 06/15/17 08:59 05/17/17 09:45 Temazepam (Restoril) 15 mg HSPRN PRN ORAL Insomnia 05/15/17 21:00 05/22/17 20:59 05/16/17 00:14 Zolpidem Tartrate (Ambien) 5 mg BEDTIME PRN ORAL INSOMNIA 05/15/17 19:30 05/22/17 19:29 GABI DENNEY May 17, 2017 12:46
--- NOTE | 2017-05-17 15:09 | Nephrology Progress Note ---
Assessment/Plan Problem List: (1) ESRD (end stage renal disease) on dialysis (2) Shortness of breath (3) Hypotension Assessment ESRD Dyspnea Hx Cardiac Problems: Yes - Hypotension Hx Asthma: Yes Hx Gastrointestinal Problems: Yes Hx Dialysis: Yes - MWF, last dialysis 01/20/17. Hx Neurological Problems: No - Plan Assessment/Plan Plan: Dialysis ordered for 05/17- Permacath in her thigh max UF as jose Per consultants, pulm support Midodrine for low BP per orders Subjective ROS Limited/Unobtainable: No Constitutional: Reports: malaise, weakness Objective Objective Last 24 Hour Vital Signs Date Time Temp Pulse Resp B/P (MAP) Pulse Ox O2 Delivery O2 Flow Rate FiO2 05/17/17 12:00 96.8 66 19 82/51 97 Nasal Cannula 3.0 05/17/17 12:00 67 05/17/17 08:00 79 05/17/17 08:00 98.7 76 18 82/49 96 Nasal Cannula 2.0 05/17/17 04:00 98.1 60 20 86/46 92 Nasal Cannula 2.0 05/17/17 04:00 58 05/17/17 00:00 83 05/17/17 00:00 97.7 73 25 71/40 95 Nasal Cannula 2.0 05/16/17 23:37 71 20 94 Nasal Cannula 4.0 36 05/16/17 20:00 97.6 74 22 78/48 90 Nasal Cannula 2.0 05/16/17 20:00 75 05/16/17 19:13 77 16 Nasal Cannula 2.0 05/16/17 16:00 97.4 60 18 85/53 97 Room Air 05/16/17 16:00 71 Intake and Output 05/16/17 05/17/17 19:00 07:00 Intake Total 240 ml Balance 240 ml Intake Oral 240 ml Laboratory Tests 05/17/17 05:10: White Blood Count 4.6L, Red Blood Count 3.69L, Hemoglobin 11.5L, Hematocrit 36.5L, Mean Corpuscular Volume 99, Mean Corpuscular Hemoglobin 31.2H, Mean Corpuscular Hemoglobin Concent 31.6L, Red Cell Distribution Width 14.1, Platelet Count 149L, Mean Platelet Volume 9.2, Neutrophils (%) (Auto) 42.0L, Lymphocytes (%) (Auto) 36.1, Monocytes (%) (Auto) 7.6, Eosinophils (%) (Auto) 13.3H, Basophils (%) (Auto) 1.0, Sodium Level 139, Potassium Level 5.1, Chloride Level 101, Carbon Dioxide Level 23, Anion Gap 15, Blood Urea Nitrogen 66H, Creatinine 15.9H, Estimat Glomerular Filtration Rate 2.9, Glucose Level 85 , Uric Acid 7.6H, Calcium Level 9.8, Phosphorus Level 6.5H, Magnesium Level 1.5L , Total Bilirubin 0.3, Gamma Glutamyl Transpeptidase 118H, Aspartate Amino Transf (AST/SGOT) 26, Alanine Aminotransferase (ALT/SGPT) 36, Alkaline Phosphatase 255H, Troponin I 0.000, Pro-B-Type Natriuretic Peptide 953H, Total Protein 7.8, Albumin 3.4, Globulin 4.4, Albumin/Globulin Ratio 0.8L, Thyroid Stimulating Hormone (TSH) 1.562, Cortisol AM Sample [Pending] Height (Feet): 5 Height (Inches): 6.00 Weight (Pounds): 160 General Appearance: no apparent distress Cardiovascular: regular rhythm Respiratory/Chest: decreased breath sounds Abdomen: soft, distended Objective no other change EDUARDO ROSE May 17, 2017 15:09
--- NOTE | 2017-05-17 23:20 | Consultation ---
History of Present Illness General Date patient seen: May 17, 2017 Chief Complaint: Dyspnea/Respdistress Present Illness HPI 52-year-old female, who presents with chief complaint of shortness of breath. the pt has hx of anxiety and at time has insomnia/the pt in hospital has been irritable and has several complains. Allergies: Coded Allergies: CEFAZOLIN (Verified Allergy, Unknown, 10/02/10) CIPROFLOXACIN (Verified Allergy, Unknown, 10/02/10) GENTAMICIN (Verified Allergy, Unknown, 10/02/10) LEVOFLOXACIN (Verified Allergy, Unknown, 10/02/10) PENICILLINS (Verified Allergy, Unknown, ITCH, 10/02/10) Uncoded Allergies: CONTRAST MEDIA (Adverse Reaction, Mild, MILD ITCHING AFTER CONTRAST MEDIA, 04/30/17) Medication History Scheduled Albuterol Sulfate* (Albuterol Sulfate Mdi*), 2 PUFF INH Q4H Cinacalcet* (Sensipar*), 30 MG ORAL 3XW, (Reported) Omeprazole (Omeprazole), 20 MG ORAL BID, (Reported) Sevelamer Carbonate (Renvela), 1,600 MG ORAL THREE TIMES A DAY, (Reported) Scheduled PRN Promethazine/Dextromethorphan (Promethazine-Dm Syrup), 1 TSP ORAL Q6H PRN for For Cough Zolpidem Tartrate* (Ambien*), 10 MG PO HS PRN, (Reported) Discontinued Medications Albuterol Sulfate (Ventolin Hfa), 1 PUFF INH EVERY 6 HOURS Discontinued Reason: Pt stopped taking med Azithromycin* (Zithromax*), 250 MG ORAL DAILY Discontinued Reason: Pt stopped taking med Calcium Acetate (Phoslo), 667 MG PO TID, (Reported) Discontinued Reason: Pt stopped taking med Folic Acid/Vitamin B Comp W-C (Renavit Tablet), 0 PO, (Reported) Discontinued Reason: Pt stopped taking med Guaifenesin/Dextromethorphan (Guaifenesin Dm Syrup), 5 ML PO QHS Discontinued Reason: Pt stopped taking med Hydrocodone Bit/Acetaminophen 5-325* (Onia 5-325*), 1 TAB ORAL Q6H PRN for For Pain Discontinued Reason: Pt stopped taking med Hydrocodone Bit/Acetaminophen 5-500 (Vicodin 5-500), 1 TAB ORAL Q4H PRN for For Pain Discontinued Reason: Pt stopped taking med Levalbuterol Tartrate (Xopenex Hfa), 15 GM IH Q6HR Discontinued Reason: Pt stopped taking med Omeprazole (Omeprazole), 40 MG PO DAILY, (Reported) Discontinued Reason: Pt stopped taking med Prednisone* (Prednisone*), 20 MG ORAL BID Discontinued Reason: Pt stopped taking med Tramadol Hcl* (Ultram*), 50 MG ORAL Q6H PRN for For Pain Discontinued Reason: Pt stopped taking med Vancomycin Hcl (Vancomycin Hcl), 0 IVPB, (Reported) Discontinued Reason: Pt stopped taking med Vancomycin Hcl/D5w (Vancomycin-D5w 1 G/250 Ml), 0 IVPB, (Reported) Discontinued Reason: Pt stopped taking med Vancomycin Hcl/D5w (Vancomycin-D5w 1 G/250 Ml), 1,250 GM IVPB Q24H, (Reported) Discontinued Reason: Pt stopped taking med Vancomycin/0.9 % Sod Chloride (Vancomycin 1 G/200Ml-0.9% NaCl), 0 IV pharm to dose, (Reported) Discontinued Reason: Pt stopped taking med Vitamin B Cmplx/Vit C/Folic AC (Nephro-Dmitry Tablet), 1 TAB ORAL DAILY, (Reported ) Discontinued Reason: Pt stopped taking med Warfarin Sod* (Coumadin*), 7 MG PO DAILY, (Reported) Discontinued Reason: Pt stopped taking med Patient History Limited by: medical condition History Provided By: Patient, Medical Record, PMD Healthcare decision maker Resuscitation status Full Code Advanced Directive on File No Past Medical/Surgical History Past Medical/Surgical History: (1) Dental abscess (2) Sprain of wrist (3) foot sprain (4) Cough (5) Cough (6) Trigger finger, left (7) Sprain, finger (8) ESRF (end stage renal failure) (9) Line sepsis associated with dialysis catheter (10) Anemia of renal disease (11) Renal failure (12) Acute bronchitis (13) Dyspnea (14) Hypoparathyroidism (15) ESRD (end stage renal disease) on dialysis (16) Acute bronchitis (17) Shortness of breath (18) HTN (hypertension) (19) Hypotension Review of Systems Psychiatric: Reports: prior hx, anxiety, depressed feelings, emotional problems Physical Exam General Appearance: no apparent distress, alert Neurologic: alert, oriented x 3, responsive, depressed affect Last 24 Hour Vital Signs Date Time Temp Pulse Resp B/P (MAP) Pulse Ox O2 Delivery O2 Flow Rate FiO2 05/17/17 20:16 24 84 Nasal Cannula 4.0 05/17/17 19:45 78 22 Non-Rebreather 15.0 100 05/17/17 18:00 Room Air 05/17/17 17:00 97.6 71 20 85/45 Room Air 05/17/17 16:00 98.6 54 19 78/37 97 Nasal Cannula 3.0 05/17/17 16:00 61 05/17/17 14:00 Room Air 05/17/17 14:00 97.2 71 20 86/52 Room Air 71 05/17/17 12:00 96.8 66 19 82/51 97 Nasal Cannula 3.0 05/17/17 12:00 67 05/17/17 08:00 79 05/17/17 08:00 98.7 76 18 82/49 96 Nasal Cannula 2.0 05/17/17 06:58 72 18 Nasal Cannula 2.0 05/17/17 04:00 98.1 60 20 86/46 92 Nasal Cannula 2.0 05/17/17 04:00 58 05/17/17 00:00 83 05/17/17 00:00 97.7 73 25 71/40 95 Nasal Cannula 2.0 05/16/17 23:37 71 20 94 Nasal Cannula 4.0 36 Intake and Output 05/16/17 05/17/17 19:00 07:00 Intake Total 240 ml Balance 240 ml Intake Oral 240 ml Laboratory Tests Test 05/17/17 05:10 White Blood Count 4.6 K/UL (4.8-10.8) L Red Blood Count 3.69 M/UL (4.20-5.40) L Hemoglobin 11.5 G/DL (12.0-16.0) L Hematocrit 36.5 % (37.0-47.0) L Mean Corpuscular Volume 99 FL (80-99) Mean Corpuscular Hemoglobin 31.2 PG (27.0-31.0) H Mean Corpuscular Hemoglobin Concent 31.6 G/DL (32.0-36.0) L Red Cell Distribution Width 14.1 % (11.6-14.8) Platelet Count 149 K/UL (150-450) L Mean Platelet Volume 9.2 FL (6.5-10.1) Neutrophils (%) (Auto) 42.0 % (45.0-75.0) L Lymphocytes (%) (Auto) 36.1 % (20.0-45.0) Monocytes (%) (Auto) 7.6 % (1.0-10.0) Eosinophils (%) (Auto) 13.3 % (0.0-3.0) H Basophils (%) (Auto) 1.0 % (0.0-2.0) Sodium Level 139 MMOL/L (136-145) Potassium Level 5.1 MMOL/L (3.5-5.1) Chloride Level 101 MMOL/L (98-107) Carbon Dioxide Level 23 MMOL/L (21-32) Anion Gap 15 mmol/L (5-15) Blood Urea Nitrogen 66 mg/dL (7-18) H Creatinine 15.9 MG/DL (0.55-1.30) H Estimat Glomerular Filtration Rate 2.9 mL/min (>60) Glucose Level 85 MG/DL (74-106) Uric Acid 7.6 MG/DL (2.6-7.2) H Calcium Level 9.8 MG/DL (8.5-10.1) Phosphorus Level 6.5 MG/DL (2.5-4.9) H Magnesium Level 1.5 MG/DL (1.8-2.4) L Total Bilirubin 0.3 MG/DL (0.2-1.0) Gamma Glutamyl Transpeptidase 118 U/L (5-85) H Aspartate Amino Transf (AST/SGOT) 26 U/L (15-37) Alanine Aminotransferase (ALT/SGPT) 36 U/L (12-78) Alkaline Phosphatase 255 U/L (46-116) H Troponin I 0.000 ng/mL (0.000-0.056) Pro-B-Type Natriuretic Peptide 953 pg/mL (0-125) H Total Protein 7.8 G/DL (6.4-8.2) Albumin 3.4 G/DL (3.4-5.0) Globulin 4.4 g/dL Albumin/Globulin Ratio 0.8 (1.0-2.7) L Thyroid Stimulating Hormone (TSH) 1.562 uiU/mL (0.358-3.740) Cortisol AM Sample 10.8 UG/DL Height (Feet): 5 Height (Inches): 6.00 Weight (Pounds): 160 Medications Current Medications Medications (Trade) Dose Ordered Sig/Marcos Route PRN Reason Start Time Stop Time Status Last Admin Dose Admin Acetaminophen (Tylenol) 650 mg Q4H PRN ORAL pain/headache 05/16/17 12:00 06/15/17 11:59 05/17/17 22:55 Albuterol/ Ipratropium (Albuterol/ Ipratropium) 3 ml Q4H PRN HHN Shortness of Breath 05/15/17 19:45 05/20/17 19:44 05/16/17 23:32 Cinacalcet (Sensipar) 30 mg 3XW ORAL 05/17/17 09:00 06/16/17 08:59 05/17/17 09:38 Dextrose (Dextrose 50%) STAT PRN IV Hypoglycemia 05/15/17 19:45 06/14/17 19:44 Diphenhydramine HCl (Benadryl) 25 mg Q6H PRN IVP Itching 05/17/17 11:30 06/16/17 11:29 Docusate Sodium (Colace) 100 mg THREE TIMES A DAY ORAL 05/16/17 13:00 06/15/17 12:59 05/17/17 09:39 Heparin Sodium (Porcine) (Heparin 5000 units/ml) 5,000 units EVERY 12 HOURS SUBQ 05/15/17 21:00 06/14/17 20:59 05/16/17 20:42 Heparin Sodium (Porcine) (Heparin Sod 1000 units/ml 10ml) 2,000 unit ONCE PRN IV For HD Use 05/17/17 12:00 05/18/17 23:59 Midodrine (Pro-Amatine) 10 mg THREE TIMES A DAY ORAL 05/17/17 13:00 06/16/17 12:59 Ondansetron HCl (Zofran) 4 mg Q6H PRN IVP Nausea & Vomiting 05/15/17 19:45 06/14/17 19:44 05/17/17 20:07 Pantoprazole (Protonix) 40 mg EVERY 12 HOURS ORAL 05/15/17 21:00 06/14/17 20:59 05/17/17 09:39 Polyethylene Glycol (Miralax) 17 gm DAILYPRN PRN ORAL Constipation 05/15/17 19:45 06/14/17 19:44 Promethazine HCl/ Codeine (Phenergan with Codeine) 5 ml Q4H PRN ORAL For Cough 05/16/17 09:00 06/15/17 08:59 05/16/17 10:15 Sevelamer Carbonate (Renvela) 1,600 mg THREE TIMES A DAY ORAL 05/16/17 09:00 06/15/17 08:59 05/17/17 09:45 Temazepam (Restoril) 15 mg HSPRN PRN ORAL Insomnia 05/15/17 21:00 05/22/17 20:59 05/16/17 00:14 Zolpidem Tartrate (Ambien) 5 mg BEDTIME PRN ORAL INSOMNIA 05/15/17 19:30 05/22/17 19:29 Assessment/Plan Status: stable Assessment/Plan korey insomnia -the pt is reluctant to meds -Edwin Morocho M.D. May 17, 2017 23:20
[2017-05-18] VITALS (24 sets, daily range): BP systolic 52–120; BP diastolic 29–78
[2017-05-18] MEDS ORDERED: Midodrine 10mg tab ORAL ONE (00:15)
[2017-05-18] MEDS ORDERED: Heparin Sod 1000 units/ml 10ml IV PRN (02:30)
[2017-05-18] MEDS ORDERED: Albuterol/Ipratropium 3ml neb HHN PRN (03:45)
[2017-05-18 04:47] LABS: HEMATOCRIT 37.5 % (37.0-47.0); HEMOGLOBIN 12.1 G/DL (12.0-16.0); MEAN CORPUSCULAR VOLUME 98 FL (80-99); PLATELET COUNT 156 K/UL (150-450); RED BLOOD COUNT 3.83 M/UL (4.20-5.40); RED CELL DISTRIBUTION WIDTH 13.9 % (11.6-14.8); WHITE BLOOD COUNT 10.7 K/UL (4.8-10.8)
[2017-05-18] MEDS ORDERED: Promethazine/Codeine 5ml UD ORAL PRN (05:00)
[2017-05-18 05:19] LABS: ALANINE AMINOTRANSFERASE 34 U/L (12-78); ALBUMIN 3.5 G/DL (3.4-5.0); ALBUMIN/GLOBULIN RATIO 0.8 (1.0-2.7); ALKALINE PHOSPHATASE 267 U/L (46-116); ANION GAP 17 mmol/L (5-15); ASPARTATE AMINO TRANSFERASE 23 U/L (15-37); BILIRUBIN,TOTAL 0.5 MG/DL (0.2-1.0); BLOOD UREA NITROGEN 61 mg/dL (7-18); CALCIUM 9.4 MG/DL (8.5-10.1); CARBON DIOXIDE 22 MMOL/L (21-32); CHLORIDE 99 MMOL/L (98-107); CREATININE 15.1 MG/DL (0.55-1.30); PHOSPHORUS 6.1 MG/DL (2.5-4.9); SODIUM 138 MMOL/L (136-145)
[2017-05-18 05:22] LABS: POTASSIUM 6.6 MMOL/L (3.5-5.1)
[2017-05-18] MEDS ORDERED: DiphenhydrAMINE 50mg/ml Inj IVP PRN (05:30)
[2017-05-18] MEDS ORDERED: Sodium Polystyrene Sulfonate 15gm Powder ORAL ONE (05:45)
[2017-05-18] MEDS: Docusate 100mg cap ORAL SCH ×3 (09:00→18:00)
[2017-05-18] MEDS: Midodrine 10mg tab ORAL SCH ×3 (09:08→18:00)
[2017-05-18] MEDS: Heparin 5000 units/ml inj SUBQ SCH ×2 (09:09→21:00)
--- NOTE | 2017-05-18 09:18 | Diagnostic Imaging Report ---
Indication: Shortness breath, chest pain Technique: One view of the chest Comparison: 05/15/2017 Findings: There are bilateral neck surgical clips present. The lungs and pleural spaces are clear. There are surgical clips in the both axillae. Serpiginous calcifications in the right axilla are likely an old calcified dialysis fistula. There is an inferior approach dialysis catheter, tip at the level of the inferior right atrium, also previously demonstrated the lungs pleural spaces are clear. The heart size is normal. Retrocardiac hiatal hernia again demonstrated. Impression: Findings as noted. No acute process
--- NOTE | 2017-05-18 09:37 | Pulmonolgy Critical Care Note ---
Critical Care - Asmt/Plan Problems: (1) Acute respiratory failure with hypoxemia (2) ESRD (end stage renal disease) on dialysis (3) Hypoparathyroidism Respiratory: monitor respiratory rate, adjust FIO2, CXR, other - CT angio to rule out PE, considering that the CXR is negative and pt needs 100% O2 Cardiac: continue to monitor HR/BP Renal: F/U I&O, keep IV fluid Infectious Disease: check cultures Gastrointestinal: continue feedings/current rate Endocrine: monitor blood sugar, check TSH, continue sliding scale insulin Hematologic: transfuse if hgb<8.5 Neurologic: PRN Ativan, PRN Morphine, keep patient comfortable Prophylaxis: Protonix, Heparin Notes Reviewed: cardio, renal Discussed with: consultants, 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 - Objective Last 24 Hour Vital Signs Date Time Temp Pulse Resp B/P (MAP) Pulse Ox O2 Delivery O2 Flow Rate FiO2 05/18/17 09:00 82 25 74/47 100 Non-Rebreather 15.0 05/18/17 08:00 73 05/18/17 08:00 98.6 64 25 72/39 93 Non-Rebreather 15.0 05/18/17 07:09 81 20 Non-Rebreather 15.0 100 05/18/17 07:00 83 23 84/38 94 Non-Rebreather 15.0 05/18/17 06:00 83 23 84/38 94 Non-Rebreather 15.0 05/18/17 05:00 70 25 72/38 92 Non-Rebreather 15.0 05/18/17 04:00 98.6 70 26 70/38 91 Non-Rebreather 15.0 05/18/17 04:00 81 05/18/17 03:48 98.8 05/18/17 03:00 76 26 79/38 96 Non-Rebreather 15.0 05/18/17 02:00 98.0 91 20 70/35 91 Non-Rebreather 15.0 05/18/17 00:00 94 05/18/17 00:00 98.0 99 20 120/78 97 Non-Rebreather 15.0 05/17/17 20:16 24 84 Nasal Cannula 4.0 05/17/17 20:00 89 05/17/17 19:45 78 22 Non-Rebreather 15.0 100 05/17/17 18:00 Room Air 05/17/17 17:00 97.6 71 20 85/45 Room Air 05/17/17 16:00 98.6 54 19 78/37 97 Nasal Cannula 3.0 05/17/17 16:00 61 05/17/17 14:00 Room Air 05/17/17 14:00 97.2 71 20 86/52 Room Air 71 05/17/17 12:00 96.8 66 19 82/51 97 Nasal Cannula 3.0 05/17/17 12:00 67 Status: awake Condition: critical HEENT: atraumatic Neck: full ROM Lungs: clear Heart: HR/BP stable, HR/BP unstable Abdomen: soft, active bowel sounds, feeding tube Extremities: no C/C/E Decubiti: location Micro: Microbiology Date/Time Source Procedure Growth Status 05/15/17 16:20 Blood Blood Culture - Preliminary NO GROWTH AFTER 48 HOURS Resulted 05/15/17 16:08 Blood Blood Culture - Preliminary NO GROWTH AFTER 48 HOURS Resulted 05/16/17 18:40 Sputum Gram Stain - Final Resulted 05/16/17 18:40 Sputum Sputum Culture - Preliminary NORMAL UPPER RESPIRATORY ESTEPHANIE AT 24 ... Resulted 05/15/17 17:25 Nasal Nares MRSA Culture - Final NO METHICILLIN RESISTANT STAPH AUREUS... Complete 05/15/17 16:04 Nasal Nares Influenza Types A,B Antigen (DORON) - Final Complete 05/15/17 17:25 Rectum VRE Culture - Final NO VANCOMYCIN RESISTANT ENTEROCOCCUS ... Complete Critical Care - Subjective ROS Limited/Unobtainable: No ICU Day: 1 Interval Events: transferred to icu last night for hypoxemia and hypotension. pt is on 100% NRM , saurating around 80 FI02: 100 Sputum Amount: None I&O: Intake and Output 05/17/17 05/18/17 19:00 07:00 Intake Total 472 ml 236 ml Output Total 1450 ml Balance -978 ml 236 ml Intake Oral 472 ml 236 ml Hemodialysis UF 1450 ml # Voids 1 1 # Bowel Movements 1 CXR: GREGORIO Labs: Laboratory Tests Test 05/18/17 00:50 05/18/17 03:20 Arterial Blood pH 7.460 (7.350-7.450) Arterial Blood Partial Pressure CO2 28.3 mmHg (35.0-45.0) L Arterial Blood Partial Pressure O2 46.0 mmHg (75.0-100.0) Arterial Blood HCO3 19.7 mmol/L (22.0-26.0) L Arterial Blood Oxygen Saturation 75.0 % (92.0-98.0) L Arterial Blood Base Excess -3.0 Magdiel Test Positive White Blood Count 10.7 K/UL (4.8-10.8) # Red Blood Count 3.83 M/UL (4.20-5.40) L Hemoglobin 12.1 G/DL (12.0-16.0) Hematocrit 37.5 % (37.0-47.0) Mean Corpuscular Volume 98 FL (80-99) Mean Corpuscular Hemoglobin 31.6 PG (27.0-31.0) H Mean Corpuscular Hemoglobin Concent 32.3 G/DL (32.0-36.0) Red Cell Distribution Width 13.9 % (11.6-14.8) Platelet Count 156 K/UL (150-450) Mean Platelet Volume 9.3 FL (6.5-10.1) Neutrophils (%) (Auto) % (45.0-75.0) Lymphocytes (%) (Auto) % (20.0-45.0) Monocytes (%) (Auto) % (1.0-10.0) Eosinophils (%) (Auto) % (0.0-3.0) Basophils (%) (Auto) % (0.0-2.0) Neutrophils % (Manual) Pending Lymphocytes % (Manual) Pending Platelet Estimate Pending Platelet Morphology Pending Sodium Level 138 MMOL/L (136-145) Potassium Level 6.6 MMOL/L (3.5-5.1) *H Chloride Level 99 MMOL/L (98-107) Carbon Dioxide Level 22 MMOL/L (21-32) Anion Gap 17 mmol/L (5-15) H Blood Urea Nitrogen 61 mg/dL (7-18) H Creatinine 15.1 MG/DL (0.55-1.30) H Estimat Glomerular Filtration Rate 3.0 mL/min (>60) Glucose Level 89 MG/DL (74-106) Uric Acid 7.0 MG/DL (2.6-7.2) Calcium Level 9.4 MG/DL (8.5-10.1) Phosphorus Level 6.1 MG/DL (2.5-4.9) H Magnesium Level 1.5 MG/DL (1.8-2.4) L Total Bilirubin 0.5 MG/DL (0.2-1.0) Aspartate Amino Transf (AST/SGOT) 23 U/L (15-37) Alanine Aminotransferase (ALT/SGPT) 34 U/L (12-78) Alkaline Phosphatase 267 U/L (46-116) H Troponin I 0.000 ng/mL (0.000-0.056) C-Reactive Protein, Quantitative 10.2 mg/dL (0.00-0.90) H Pro-B-Type Natriuretic Peptide 981 pg/mL (0-125) H Total Protein 8.1 G/DL (6.4-8.2) Albumin 3.5 G/DL (3.4-5.0) Globulin 4.6 g/dL Albumin/Globulin Ratio 0.8 (1.0-2.7) L GABI DENNEY May 18, 2017 09:37
--- NOTE | 2017-05-18 11:08 | Diagnostic Imaging Report ---
Indication: Shortness of breath Technique: One view of the chest Comparison: 05/17/2017 Findings: There is minimal atelectasis or scarring at the left lung base. Lungs and pleural spaces are otherwise clear. Retrocardiac hiatal hernia again demonstrated. Normal heart size. Again demonstrated are bilateral axillary surgical clips, right axillary vascular calcifications. A right axillary venous stent is now visible as well. Surgical clips are also seen in the upper mediastinum and lower neck Impression: No acute process. Findings as described
--- NOTE | 2017-05-18 16:47 | Nephrology Progress Note ---
Assessment/Plan Problem List: (1) ESRD (end stage renal disease) on dialysis (2) Shortness of breath (3) Hypotension (4) Acute respiratory failure with hypoxemia Assessment transfered to ICU for low Oxygenation- K high today ESRD- Dyspnea Hx Cardiac Problems: Yes - Hypotension Hx Asthma: Yes Hx Gastrointestinal Problems: Yes Hx Dialysis: Yes - MWF, last dialysis 01/20/17. Hx Neurological Problems: No - Plan Plan: Dialysis ordered for 05/18- Permacath in her thigh max UF as jose Per consultants, pulm support Midodrine for low BP per orders pulmonary support change diet to Renal as K remains high Subjective ROS Limited/Unobtainable: No Constitutional: Reports: malaise Objective Objective Last 24 Hour Vital Signs Date Time Temp Pulse Resp B/P (MAP) Pulse Ox O2 Delivery O2 Flow Rate FiO2 05/18/17 16:00 98.5 67 24 70/41 91 Nasal Cannula 4.0 05/18/17 16:00 73 05/18/17 15:00 71 18 63/43 93 Nasal Cannula 4.0 05/18/17 14:00 86 20 59/36 91 Nasal Cannula 4.0 05/18/17 13:52 Nasal Cannula 4.5 100 05/18/17 13:52 Nasal Cannula 4.5 100 05/18/17 13:00 97.6 66 24 52/39 Nasal Cannula 4.5 05/18/17 13:00 Nasal Cannula 4.5 05/18/17 13:00 66 20 75/29 93 Nasal Cannula 4.0 05/18/17 12:00 97.7 101 24 82/44 100 Nasal Cannula 4.0 05/18/17 12:00 57 05/18/17 11:30 97.7 66 24 72/44 Room Air 4.5 05/18/17 11:30 Nasal Cannula 4.5 05/18/17 11:30 Nasal Cannula 4.5 05/18/17 11:00 64 20 75/41 91 Room Air 05/18/17 10:00 69 24 72/43 93 Room Air 05/18/17 09:00 82 25 74/47 100 Non-Rebreather 15.0 05/18/17 08:00 73 05/18/17 08:00 98.6 64 25 72/39 93 Non-Rebreather 15.0 1/30/18 07:09 81 20 Non-Rebreather 15.0 100 05/18/17 07:00 83 23 84/38 94 Non-Rebreather 15.0 05/18/17 06:00 83 23 84/38 94 Non-Rebreather 15.0 05/18/17 05:00 70 25 72/38 92 Non-Rebreather 15.0 05/18/17 04:00 98.6 70 26 70/38 91 Non-Rebreather 15.0 05/18/17 04:00 81 05/18/17 03:48 98.8 05/18/17 03:00 76 26 79/38 96 Non-Rebreather 15.0 05/18/17 02:00 98.0 91 20 70/35 91 Non-Rebreather 15.0 05/18/17 00:00 94 05/18/17 00:00 98.0 99 20 120/78 97 Non-Rebreather 15.0 05/17/17 20:16 24 84 Nasal Cannula 4.0 05/17/17 20:00 89 05/17/17 19:45 78 22 Non-Rebreather 15.0 100 05/17/17 18:00 Room Air 05/17/17 17:00 97.6 71 20 85/45 Room Air Intake and Output 05/17/17 05/18/17 19:00 07:00 Intake Total 472 ml 236 ml Output Total 1450 ml Balance -978 ml 236 ml Intake Oral 472 ml 236 ml Hemodialysis UF 1450 ml # Voids 1 1 # Bowel Movements 1 Laboratory Tests 05/18/17 00:50: Arterial Blood pH 7.460H, Arterial Blood Partial Pressure CO2 28.3L, Arterial Blood Partial Pressure O2 46.0*L, Arterial Blood HCO3 19.7L, Arterial Blood Oxygen Saturation 75.0L, Arterial Blood Base Excess -3.0, Magdiel Test Positive 05/18/17 03:20: White Blood Count 10.7#, Red Blood Count 3.83L, Hemoglobin 12.1, Hematocrit 37.5 , Mean Corpuscular Volume 98, Mean Corpuscular Hemoglobin 31.6H, Mean Corpuscular Hemoglobin Concent 32.3, Red Cell Distribution Width 13.9, Platelet Count 156, Mean Platelet Volume 9.3, Neutrophils (%) (Auto) , Lymphocytes (%) ( Auto) , Monocytes (%) (Auto) , Eosinophils (%) (Auto) , Basophils (%) (Auto) , Differential Total Cells Counted 100, Neutrophils % (Manual) 88H, Lymphocytes % (Manual) 2L, Monocytes % (Manual) 4, Eosinophils % (Manual) 1, Basophils % ( Manual) 0, Band Neutrophils 5, Platelet Estimate Adequate, Platelet Morphology Normal, Macrocytosis 1+, Sodium Level 138, Potassium Level 6.6*H, Chloride Level 99, Carbon Dioxide Level 22, Anion Gap 17H, Blood Urea Nitrogen 61H, Creatinine 15.1H, Estimat Glomerular Filtration Rate 3.0, Glucose Level 89, Uric Acid 7.0, Calcium Level 9.4, Phosphorus Level 6.1H, Magnesium Level 1.5L, Total Bilirubin 0.5, Aspartate Amino Transf (AST/SGOT) 23, Alanine Aminotransferase (ALT/SGPT) 34, Alkaline Phosphatase 267H, Troponin I 0.000, C- Reactive Protein, Quantitative 10.2H, Pro-B-Type Natriuretic Peptide 981H, Total Protein 8.1, Albumin 3.5, Globulin 4.6, Albumin/Globulin Ratio 0.8L Height (Feet): 5 Height (Inches): 6.00 Weight (Pounds): 200 General Appearance: mild distress Respiratory/Chest: decreased breath sounds Abdomen: soft Objective no other change EDUARDO ROSE May 18, 2017 16:47
--- NOTE | 2017-05-18 18:21 | Internal Med Progress Note ---
Subjective Date of Service: May 18, 2017 Physician Name Shavonne Ugalde Attending Physician Ash Henley MD Current Medications Medications (Trade) Dose Ordered Sig/Marcos Route PRN Reason Start Time Stop Time Status Last Admin Dose Admin Acetaminophen (Tylenol) 650 mg Q4H PRN ORAL pain/headache 05/18/17 04:00 06/15/17 11:59 05/18/17 02:45 Albuterol/ Ipratropium (Albuterol/ Ipratropium) 3 ml Q4H PRN HHN Shortness of Breath 05/18/17 03:45 05/20/17 19:44 Cinacalcet (Sensipar) 30 mg 3XW ORAL 05/19/17 09:00 06/16/17 08:59 Dextrose (Dextrose 50%) STAT PRN IV Hypoglycemia 05/18/17 19:45 06/14/17 19:44 Diphenhydramine HCl (Benadryl) 25 mg Q6H PRN IVP Itching 05/18/17 05:30 06/16/17 11:29 Docusate Sodium (Colace) 100 mg THREE TIMES A DAY ORAL 05/18/17 09:00 06/15/17 12:59 Heparin Sodium (Porcine) (Heparin 5000 units/ml) 5,000 units EVERY 12 HOURS SUBQ 05/18/17 09:00 06/14/17 20:59 05/18/17 09:09 Heparin Sodium (Porcine) (Heparin Sod 1000 units/ml 10ml) 2,000 unit THREE TIMES A WEEK PRN IV FOR DIALYSIS USE 05/18/17 02:30 05/23/17 02:29 Midodrine (Pro-Amatine) 10 mg THREE TIMES A DAY ORAL 05/18/17 09:00 06/16/17 12:59 05/18/17 09:08 Ondansetron HCl (Zofran) 4 mg Q6H PRN IVP Nausea & Vomiting 05/18/17 07:45 06/14/17 19:44 Pantoprazole (Protonix) 40 mg EVERY 12 HOURS ORAL 05/18/17 09:00 06/14/17 20:59 05/18/17 09:08 Polyethylene Glycol (Miralax) 17 gm DAILYPRN PRN ORAL Constipation 05/18/17 19:45 06/14/17 19:44 Promethazine HCl/ Codeine (Phenergan with Codeine) 5 ml Q4H PRN ORAL For Cough 05/18/17 05:00 06/15/17 08:59 Sevelamer Carbonate (Renvela) 1,600 mg THREE TIMES A DAY ORAL 05/18/17 09:00 06/15/17 08:59 05/18/17 09:07 Temazepam (Restoril) 15 mg HSPRN PRN ORAL Insomnia 05/18/17 21:00 05/22/17 20:59 Zolpidem Tartrate (Ambien) 5 mg BEDTIME PRN ORAL INSOMNIA 05/18/17 21:00 05/22/17 19:29 Allergies: Coded Allergies: CEFAZOLIN (Verified Allergy, Unknown, 10/02/10) CIPROFLOXACIN (Verified Allergy, Unknown, 10/02/10) GENTAMICIN (Verified Allergy, Unknown, 10/02/10) LEVOFLOXACIN (Verified Allergy, Unknown, 10/02/10) PENICILLINS (Verified Allergy, Unknown, ITCH, 10/02/10) Uncoded Allergies: CONTRAST MEDIA (Adverse Reaction, Mild, MILD ITCHING AFTER CONTRAST MEDIA, 04/30/17) Subjective 52 YO F admitted with shortness of breath. Transferred to ICU for worsening respiratory failure. Await hemodialysis today. Cover for Int Med Dr Henley. Objective Last Vital Signs Date Time Temp Pulse Resp B/P (MAP) Pulse Ox O2 Delivery O2 Flow Rate FiO2 05/18/17 17:00 65 20 101/74 90 Nasal Cannula 4.0 05/18/17 16:00 98.5 05/18/17 13:52 100 Laboratory Tests Test 05/18/17 00:50 05/18/17 03:20 Arterial Blood pH 7.460 (7.350-7.450) Arterial Blood Partial Pressure CO2 28.3 mmHg (35.0-45.0) L Arterial Blood Partial Pressure O2 46.0 mmHg (75.0-100.0) Arterial Blood HCO3 19.7 mmol/L (22.0-26.0) L Arterial Blood Oxygen Saturation 75.0 % (92.0-98.0) L Arterial Blood Base Excess -3.0 Magdiel Test Positive White Blood Count 10.7 K/UL (4.8-10.8) # Red Blood Count 3.83 M/UL (4.20-5.40) L Hemoglobin 12.1 G/DL (12.0-16.0) Hematocrit 37.5 % (37.0-47.0) Mean Corpuscular Volume 98 FL (80-99) Mean Corpuscular Hemoglobin 31.6 PG (27.0-31.0) H Mean Corpuscular Hemoglobin Concent 32.3 G/DL (32.0-36.0) Red Cell Distribution Width 13.9 % (11.6-14.8) Platelet Count 156 K/UL (150-450) Mean Platelet Volume 9.3 FL (6.5-10.1) Neutrophils (%) (Auto) % (45.0-75.0) Lymphocytes (%) (Auto) % (20.0-45.0) Monocytes (%) (Auto) % (1.0-10.0) Eosinophils (%) (Auto) % (0.0-3.0) Basophils (%) (Auto) % (0.0-2.0) Differential Total Cells Counted 100 Neutrophils % (Manual) 88 % (45-75) H Lymphocytes % (Manual) 2 % (20-45) L Monocytes % (Manual) 4 % (1-10) Eosinophils % (Manual) 1 % (0-3) Basophils % (Manual) 0 % (0-2) Band Neutrophils 5 % (0-8) Platelet Estimate Adequate Platelet Morphology Normal Macrocytosis 1+ Sodium Level 138 MMOL/L (136-145) Potassium Level 6.6 MMOL/L (3.5-5.1) *H Chloride Level 99 MMOL/L (98-107) Carbon Dioxide Level 22 MMOL/L (21-32) Anion Gap 17 mmol/L (5-15) H Blood Urea Nitrogen 61 mg/dL (7-18) H Creatinine 15.1 MG/DL (0.55-1.30) H Estimat Glomerular Filtration Rate 3.0 mL/min (>60) Glucose Level 89 MG/DL (74-106) Uric Acid 7.0 MG/DL (2.6-7.2) Calcium Level 9.4 MG/DL (8.5-10.1) Phosphorus Level 6.1 MG/DL (2.5-4.9) H Magnesium Level 1.5 MG/DL (1.8-2.4) L Total Bilirubin 0.5 MG/DL (0.2-1.0) Aspartate Amino Transf (AST/SGOT) 23 U/L (15-37) Alanine Aminotransferase (ALT/SGPT) 34 U/L (12-78) Alkaline Phosphatase 267 U/L (46-116) H Troponin I 0.000 ng/mL (0.000-0.056) C-Reactive Protein, Quantitative 10.2 mg/dL (0.00-0.90) H Pro-B-Type Natriuretic Peptide 981 pg/mL (0-125) H Total Protein 8.1 G/DL (6.4-8.2) Albumin 3.5 G/DL (3.4-5.0) Globulin 4.6 g/dL Albumin/Globulin Ratio 0.8 (1.0-2.7) L Microbiology Date/Time Source Procedure Growth Status 05/16/17 18:40 Sputum Gram Stain - Final Resulted 05/16/17 18:40 Sputum Sputum Culture - Preliminary NORMAL UPPER RESPIRATORY ESTEPHANIE AT 24 ... Resulted Intake and Output 05/17/17 05/18/17 19:00 07:00 Intake Total 472 ml 236 ml Output Total 1450 ml Balance -978 ml 236 ml Intake Oral 472 ml 236 ml Hemodialysis UF 1450 ml # Voids 1 1 # Bowel Movements 1 Objective General Appearance: WD/WN, no apparent distress, alert EENT: PERRL/EOMI, normal ENT inspection, TMs normal Neck: non-tender, normal alignment, supple, normal inspection Cardiovascular: normal peripheral pulses, normal rate, regular rhythm, no gallop/murmur, no JVD Respiratory/Chest: chest wall non-tender, no respiratory distress, no accessory muscle use, crackles/rales, rhonchi - bilaterally, expiratory wheezing Abdomen: normal bowel sounds, non tender, soft, no organomegaly, no mass Extremities: normal range of motion, non-tender Neurologic: sweatband flanger II-XII grossly normal, no motor/sensory deficits Skin: normal pigmentation, warm/dry Assessment/Plan Problem List: (1) HTN (hypertension) (2) Shortness of breath Assessment & Plan: Resolving. Tolerating nasal canula. See pulmonary note. (3) ESRD (end stage renal disease) on dialysis Assessment & Plan: Await hemodialysis today. See nephrology note. (4) Acute respiratory failure with hypoxemia Assessment & Plan: Earlier on non-rebreather; Tolerating nasal canula. Status: not improved SHAVONNE UGALDE May 18, 2017 18:21
[2017-05-18] MEDS ORDERED: Miralax 17gm pkt ORAL PRN (19:45)
[2017-05-18] MEDS ORDERED: Zolpidem 5mg tab ORAL PRN (21:00)
--- NOTE | 2017-05-18 22:03 | General Progress Note ---
Assessment/Plan Status: stable, progressing Assessment/Plan Anxiety d/o insomnia -Ambien -the pt has capacity Subjective Date patient seen: May 18, 2017 Neurologic/Psychiatric: Reports: anxiety, depressed Allergies: Coded Allergies: CEFAZOLIN (Verified Allergy, Unknown, 10/02/10) CIPROFLOXACIN (Verified Allergy, Unknown, 10/02/10) GENTAMICIN (Verified Allergy, Unknown, 10/02/10) LEVOFLOXACIN (Verified Allergy, Unknown, 10/02/10) PENICILLINS (Verified Allergy, Unknown, ITCH, 10/02/10) Uncoded Allergies: CONTRAST MEDIA (Adverse Reaction, Mild, MILD ITCHING AFTER CONTRAST MEDIA, 04/30/17) Objective Last 24 Hour Vital Signs Date Time Temp Pulse Resp B/P (MAP) Pulse Ox O2 Delivery O2 Flow Rate FiO2 05/18/17 20:34 85 18 100 05/18/17 20:32 100 Non-Rebreather 15.0 100 05/18/17 20:31 85 20 Non-Rebreather 15.0 100 05/18/17 20:31 Non-Rebreather 15.0 100 05/18/17 19:05 86 18 73/37 90 Nasal Cannula 4.0 05/18/17 18:00 84 17 78/44 90 Nasal Cannula 4.0 05/18/17 17:00 65 20 101/74 90 Nasal Cannula 4.0 05/18/17 16:00 98.5 67 24 70/41 91 Nasal Cannula 4.0 05/18/17 16:00 73 05/18/17 15:00 71 18 63/43 93 Nasal Cannula 4.0 05/18/17 14:00 86 20 59/36 91 Nasal Cannula 4.0 05/18/17 13:52 Nasal Cannula 4.5 100 05/18/17 13:52 Nasal Cannula 4.5 100 05/18/17 13:00 97.6 66 24 52/39 Nasal Cannula 4.5 05/18/17 13:00 Nasal Cannula 4.5 05/18/17 13:00 66 20 75/29 93 Nasal Cannula 4.0 05/18/17 12:00 97.7 101 24 82/44 100 Nasal Cannula 4.0 05/18/17 12:00 57 05/18/17 11:30 97.7 66 24 72/44 Room Air 4.5 05/18/17 11:30 Nasal Cannula 4.5 05/18/17 11:30 Nasal Cannula 4.5 05/18/17 11:00 64 20 75/41 91 Room Air 05/18/17 10:00 69 24 72/43 93 Room Air 05/18/17 09:00 82 25 74/47 100 Non-Rebreather 15.0 05/18/17 08:00 73 05/18/17 08:00 98.6 64 25 72/39 93 Non-Rebreather 15.0 05/18/17 07:09 81 20 Non-Rebreather 15.0 100 05/18/17 07:00 83 23 84/38 94 Non-Rebreather 15.0 05/18/17 06:00 83 23 84/38 94 Non-Rebreather 15.0 05/18/17 05:00 70 25 72/38 92 Non-Rebreather 15.0 05/18/17 04:00 98.6 70 26 70/38 91 Non-Rebreather 15.0 05/18/17 04:00 81 05/18/17 03:48 98.8 05/18/17 03:00 76 26 79/38 96 Non-Rebreather 15.0 05/18/17 02:00 98.0 91 20 70/35 91 Non-Rebreather 15.0 05/18/17 00:00 94 05/18/17 00:00 98.0 99 20 120/78 97 Non-Rebreather 15.0 Intake and Output 05/17/17 05/18/17 19:00 07:00 Intake Total 472 ml 236 ml Output Total 1450 ml Balance -978 ml 236 ml Intake Oral 472 ml 236 ml Hemodialysis UF 1450 ml # Voids 1 1 # Bowel Movements 1 Laboratory Tests 05/18/17 00:50: Arterial Blood pH 7.460H, Arterial Blood Partial Pressure CO2 28.3L, Arterial Blood Partial Pressure O2 46.0*L, Arterial Blood HCO3 19.7L, Arterial Blood Oxygen Saturation 75.0L, Arterial Blood Base Excess -3.0, Magdiel Test Positive 05/18/17 03:20: White Blood Count 10.7#, Red Blood Count 3.83L, Hemoglobin 12.1, Hematocrit 37.5 , Mean Corpuscular Volume 98, Mean Corpuscular Hemoglobin 31.6H, Mean Corpuscular Hemoglobin Concent 32.3, Red Cell Distribution Width 13.9, Platelet Count 156, Mean Platelet Volume 9.3, Neutrophils (%) (Auto) , Lymphocytes (%) ( Auto) , Monocytes (%) (Auto) , Eosinophils (%) (Auto) , Basophils (%) (Auto) , Differential Total Cells Counted 100, Neutrophils % (Manual) 88H, Lymphocytes % (Manual) 2L, Monocytes % (Manual) 4, Eosinophils % (Manual) 1, Basophils % ( Manual) 0, Band Neutrophils 5, Platelet Estimate Adequate, Platelet Morphology Normal, Macrocytosis 1+, Sodium Level 138, Potassium Level 6.6*H, Chloride Level 99, Carbon Dioxide Level 22, Anion Gap 17H, Blood Urea Nitrogen 61H, Creatinine 15.1H, Estimat Glomerular Filtration Rate 3.0, Glucose Level 89, Uric Acid 7.0, Calcium Level 9.4, Phosphorus Level 6.1H, Magnesium Level 1.5L, Total Bilirubin 0.5, Aspartate Amino Transf (AST/SGOT) 23, Alanine Aminotransferase (ALT/SGPT) 34, Alkaline Phosphatase 267H, Troponin I 0.000, C- Reactive Protein, Quantitative 10.2H, Pro-B-Type Natriuretic Peptide 981H, Total Protein 8.1, Albumin 3.5, Globulin 4.6, Albumin/Globulin Ratio 0.8L 05/18/17 19:00: C-Reactive Protein, Quantitative 20.9H Height (Feet): 5 Height (Inches): 6.00 Weight (Pounds): 200 General Appearance: no apparent distress, alert Neurologic: alert, oriented x 3, responsive, depressed affect Edwin Brown M.D. May 18, 2017 22:03
[2017-05-19] VITALS (24 sets, daily range): BP systolic 48–88; BP diastolic 34–55
[2017-05-19 08:57] LABS: BASOPHILS % (AUTO) 1.1 % (0.0-2.0); EOSINOPHILS % (AUTO) 2.5 % (0.0-3.0); HEMATOCRIT 35.4 % (37.0-47.0); HEMOGLOBIN 11.3 G/DL (12.0-16.0); LYMPHOCYTES % (AUTO) 21.7 % (20.0-45.0); MEAN CORPUSCULAR VOLUME 97 FL (80-99); MONOCYTES % (AUTO) 8.2 % (1.0-10.0); NEUTROPHILS % (AUTO) 66.5 % (45.0-75.0); PLATELET COUNT 142 K/UL (150-450); RED BLOOD COUNT 3.64 M/UL (4.20-5.40); RED CELL DISTRIBUTION WIDTH 14.1 % (11.6-14.8); WHITE BLOOD COUNT 5.5 K/UL (4.8-10.8)
[2017-05-19 09:22] LABS: ALANINE AMINOTRANSFERASE 30 U/L (12-78); ALBUMIN 3.2 G/DL (3.4-5.0); ALBUMIN/GLOBULIN RATIO 0.7 (1.0-2.7); ALKALINE PHOSPHATASE 248 U/L (46-116); ANION GAP 17 mmol/L (5-15); ASPARTATE AMINO TRANSFERASE 14 U/L (15-37); BILIRUBIN,TOTAL 0.5 MG/DL (0.2-1.0); BLOOD UREA NITROGEN 57 mg/dL (7-18); CALCIUM 9.9 MG/DL (8.5-10.1); CARBON DIOXIDE 23 MMOL/L (21-32); CHLORIDE 97 MMOL/L (98-107); CREATININE 14.2 MG/DL (0.55-1.30); POTASSIUM 4.4 MMOL/L (3.5-5.1); SODIUM 137 MMOL/L (136-145)
[2017-05-19] MEDS: Sensipar 30mg Tab ORAL SCH (09:55)
[2017-05-19] MEDS: Midodrine 10mg tab ORAL SCH ×3 (09:55→18:28)
[2017-05-19] MEDS: Docusate 100mg cap ORAL SCH ×3 (09:56→18:28)
[2017-05-19] MEDS: Heparin 5000 units/ml inj SUBQ SCH ×2 (10:00→20:38)
--- NOTE | 2017-05-19 10:39 | Diagnostic Imaging Report ---
Indication: Shortness of breath Technique: One view of the chest Comparison: 05/18/2017 Findings: Right femoral approach dialysis catheter, retrocardiac hiatal hernia again demonstrated. Bilateral axillary surgical clips are again demonstrated. Atelectasis or scarring at the left lung base is again demonstrated the lungs and pleural spaces are otherwise clear. The heart size is normal. Upper mediastinal surgical clips and paratracheal fullness are unchanged Impression: Unchanged, over one day, findings as above.
--- NOTE | 2017-05-19 10:44 | Pulmonolgy Critical Care Note ---
Critical Care - Asmt/Plan Problems: (1) Acute respiratory failure with hypoxemia (2) ESRD (end stage renal disease) on dialysis (3) Hypoparathyroidism Respiratory: monitor respiratory rate, adjust FIO2, CXR, other - ct agnio to rule out pulmonary embolism Cardiac: continue to monitor HR/BP, other - echo ordered, cardio called. Renal: F/U I&O Gastrointestinal: continue feedings/current rate Endocrine: monitor blood sugar Hematologic: monitor H/H Affect: PRN ativan Prophylaxis: Protonix, Heparin Disposition: keep in ICU Notes Reviewed: animal eviscerator, cardio Discussed with: nurses, consultants Critical Care - Objective Last 24 Hour Vital Signs Date Time Temp Pulse Resp B/P (MAP) Pulse Ox O2 Delivery O2 Flow Rate FiO2 05/19/17 09:56 96 67 05/19/17 07:56 96 69 05/19/17 07:56 69 21 Non-Rebreather 15.0 100 05/19/17 07:56 Non-Rebreather 15.0 100 05/19/17 07:56 96 Non-Rebreather 15.0 100 05/19/17 07:00 59 20 82/37 93 Non-Rebreather 15.0 05/19/17 06:15 98.0 05/19/17 06:00 60 20 82/52 91 Non-Rebreather 15.0 05/19/17 05:00 69 21 84/48 90 Non-Rebreather 15.0 05/19/17 04:00 98.2 64 20 73/38 90 Non-Rebreather 15.0 05/19/17 04:00 59 05/19/17 03:58 78 94 05/19/17 03:00 67 21 72/34 93 Non-Rebreather 15.0 05/19/17 02:00 68 21 70/50 89 Non-Rebreather 15.0 05/19/17 01:47 62 96 05/19/17 01:00 66 21 76/45 89 Non-Rebreather 15.0 05/19/17 00:00 98.0 66 23 71/55 93 Non-Rebreather 15.0 05/18/17 23:10 68 92 05/18/17 23:00 63 23 76/40 91 Non-Rebreather 15.0 05/18/17 22:00 60 22 77/45 93 Non-Rebreather 15.0 05/18/17 21:00 62 25 77/45 90 Non-Rebreather 15.0 05/18/17 20:34 85 18 100 05/18/17 20:32 100 Non-Rebreather 15.0 100 05/18/17 20:31 85 20 Non-Rebreather 15.0 100 05/18/17 20:31 Non-Rebreather 15.0 100 05/18/17 20:00 98.3 69 24 79/41 90 Non-Rebreather 15.0 05/18/17 20:00 84 05/18/17 19:05 86 18 73/37 90 Nasal Cannula 4.0 05/18/17 18:00 84 17 78/44 90 Nasal Cannula 4.0 05/18/17 17:00 65 20 101/74 90 Nasal Cannula 4.0 05/18/17 16:00 98.5 67 24 70/41 91 Nasal Cannula 4.0 05/18/17 16:00 73 05/18/17 15:00 71 18 63/43 93 Nasal Cannula 4.0 05/18/17 14:00 86 20 59/36 91 Nasal Cannula 4.0 05/18/17 13:52 Nasal Cannula 4.5 100 05/18/17 13:52 Nasal Cannula 4.5 100 05/18/17 13:00 97.6 66 24 52/39 Nasal Cannula 4.5 05/18/17 13:00 Nasal Cannula 4.5 05/18/17 13:00 66 20 75/29 93 Nasal Cannula 4.0 05/18/17 12:00 97.7 101 24 82/44 100 Nasal Cannula 4.0 05/18/17 12:00 57 05/18/17 11:30 97.7 66 24 72/44 Room Air 4.5 05/18/17 11:30 Nasal Cannula 4.5 05/18/17 11:30 Nasal Cannula 4.5 05/18/17 11:00 64 20 75/41 91 Room Air Status: awake, somnolent Condition: critical HEENT: atraumatic, normocephalic Lungs: clear Heart: HR/BP stable, HR/BP unstable Abdomen: soft, active bowel sounds, feeding tube Extremities: edema Decubiti: location Micro: Microbiology Date/Time Source Procedure Growth Status 05/16/17 18:40 Sputum Gram Stain - Final Complete 05/16/17 18:40 Sputum Sputum Culture - Final NORMAL UPPER RESPIRATORY ESTEPHANIE PRESENT Complete Critical Care - Subjective ROS Limited/Unobtainable: Yes ICU Day: 2 Intubation Day: 2 Interval Events: on 100 NRM, saturating at 90%, borderline hypotensive Condition: critical EKG Rhythm: Sinus Rhythm FI02: 100 Sputum Amount: None I&O: Intake and Output 05/18/17 05/19/17 19:00 07:00 Intake Total 100 ml 0 ml Output Total 0 ml 0 ml Balance 100 ml 0 ml Intake Oral 0 ml 0 ml Other 100 ml Output Urine Total 0 ml 0 ml Hemodialysis UF 0 ml # Voids 1 # Bowel Movements 2 CXR: clear Labs: Laboratory Tests Test 05/18/17 19:00 05/19/17 08:35 C-Reactive Protein, Quantitative 20.9 mg/dL (0.00-0.90) H White Blood Count 5.5 K/UL (4.8-10.8) Red Blood Count 3.64 M/UL (4.20-5.40) L Hemoglobin 11.3 G/DL (12.0-16.0) L Hematocrit 35.4 % (37.0-47.0) L Mean Corpuscular Volume 97 FL (80-99) Mean Corpuscular Hemoglobin 31.2 PG (27.0-31.0) H Mean Corpuscular Hemoglobin Concent 32.0 G/DL (32.0-36.0) Red Cell Distribution Width 14.1 % (11.6-14.8) Platelet Count 142 K/UL (150-450) L Mean Platelet Volume 10.5 FL (6.5-10.1) H Neutrophils (%) (Auto) 66.5 % (45.0-75.0) Lymphocytes (%) (Auto) 21.7 % (20.0-45.0) Monocytes (%) (Auto) 8.2 % (1.0-10.0) Eosinophils (%) (Auto) 2.5 % (0.0-3.0) Basophils (%) (Auto) 1.1 % (0.0-2.0) Sodium Level 137 MMOL/L (136-145) Potassium Level 4.4 MMOL/L (3.5-5.1) Chloride Level 97 MMOL/L (98-107) L Carbon Dioxide Level 23 MMOL/L (21-32) Anion Gap 17 mmol/L (5-15) H Blood Urea Nitrogen 57 mg/dL (7-18) H Creatinine 14.2 MG/DL (0.55-1.30) H Estimat Glomerular Filtration Rate 3.3 mL/min (>60) Glucose Level 90 MG/DL (74-106) Calcium Level 9.9 MG/DL (8.5-10.1) Phosphorus Level 7.0 MG/DL (2.5-4.9) H Magnesium Level 1.6 MG/DL (1.8-2.4) L Total Bilirubin 0.5 MG/DL (0.2-1.0) Aspartate Amino Transf (AST/SGOT) 14 U/L (15-37) L Alanine Aminotransferase (ALT/SGPT) 30 U/L (12-78) Alkaline Phosphatase 248 U/L (46-116) H Troponin I 0.000 ng/mL (0.000-0.056) Pro-B-Type Natriuretic Peptide 963 pg/mL (0-125) H Total Protein 8.0 G/DL (6.4-8.2) Albumin 3.2 G/DL (3.4-5.0) L Globulin 4.8 g/dL Albumin/Globulin Ratio 0.7 (1.0-2.7) L GABI DENNEY May 19, 2017 10:44
--- NOTE | 2017-05-19 12:03 | Nephrology Progress Note ---
Assessment/Plan Problem List: (1) ESRD (end stage renal disease) on dialysis (2) Shortness of breath (3) Hypotension (4) Acute respiratory failure with hypoxemia Assessment patient remains hypotensive in ICU Cardio eval pending today's ABG pending ESRD- Dyspnea Hx Cardiac Problems: Yes - Hypotension Hx Asthma: Yes Hx Gastrointestinal Problems: Yes Hx Dialysis: Yes - MWF, last dialysis 01/20/17. Hx Neurological Problems: No - Plan Plan: Dialysis ordered for 05/18- done- Permacath in her thigh max UF as jose was limited due to low BP Per consultants, pulm support Midodrine for low BP per orders pulmonary support change diet to Renal as K remains high Cardiology eval Subjective ROS Limited/Unobtainable: No Constitutional: Reports: malaise Objective Objective Last 24 Hour Vital Signs Date Time Temp Pulse Resp B/P (MAP) Pulse Ox O2 Delivery O2 Flow Rate FiO2 05/19/17 11:32 95 05/19/17 11:00 91 21 57/37 93 Non-Rebreather 15.0 05/19/17 10:00 86 19 48/37 93 Non-Rebreather 15.0 05/19/17 09:56 96 67 05/19/17 09:00 75 21 63/43 93 Non-Rebreather 15.0 05/19/17 08:00 98.0 73 19 63/47 93 Non-Rebreather 15.0 05/19/17 08:00 58 05/19/17 07:56 96 69 05/19/17 07:56 69 21 Non-Rebreather 15.0 100 05/19/17 07:56 Non-Rebreather 15.0 100 05/19/17 07:56 96 Non-Rebreather 15.0 100 05/19/17 07:00 59 20 82/37 93 Non-Rebreather 15.0 05/19/17 06:15 98.0 05/19/17 06:00 60 20 82/52 91 Non-Rebreather 15.0 05/19/17 05:00 69 21 84/48 90 Non-Rebreather 15.0 05/19/17 04:00 98.2 64 20 73/38 90 Non-Rebreather 15.0 05/19/17 04:00 59 05/19/17 03:58 78 94 05/19/17 03:00 67 21 72/34 93 Non-Rebreather 15.0 05/19/17 02:00 68 21 70/50 89 Non-Rebreather 15.0 05/19/17 01:47 62 96 05/19/17 01:00 66 21 76/45 89 Non-Rebreather 15.0 05/19/17 00:00 98.0 66 23 71/55 93 Non-Rebreather 15.0 05/18/17 23:10 68 92 05/18/17 23:00 63 23 76/40 91 Non-Rebreather 15.0 05/18/17 22:00 60 22 77/45 93 Non-Rebreather 15.0 05/18/17 21:00 62 25 77/45 90 Non-Rebreather 15.0 05/18/17 20:34 85 18 100 05/18/17 20:32 100 Non-Rebreather 15.0 100 05/18/17 20:31 85 20 Non-Rebreather 15.0 100 05/18/17 20:31 Non-Rebreather 15.0 100 05/18/17 20:00 98.3 69 24 79/41 90 Non-Rebreather 15.0 05/18/17 20:00 84 05/18/17 19:05 86 18 73/37 90 Nasal Cannula 4.0 05/18/17 18:00 84 17 78/44 90 Nasal Cannula 4.0 05/18/17 17:00 65 20 101/74 90 Nasal Cannula 4.0 05/18/17 16:00 98.5 67 24 70/41 91 Nasal Cannula 4.0 05/18/17 16:00 73 05/18/17 15:00 71 18 63/43 93 Nasal Cannula 4.0 05/18/17 14:00 86 20 59/36 91 Nasal Cannula 4.0 05/18/17 13:52 Nasal Cannula 4.5 100 05/18/17 13:52 Nasal Cannula 4.5 100 05/18/17 13:00 97.6 66 24 52/39 Nasal Cannula 4.5 05/18/17 13:00 Nasal Cannula 4.5 05/18/17 13:00 66 20 75/29 93 Nasal Cannula 4.0 Intake and Output 05/18/17 05/19/17 19:00 07:00 Intake Total 100 ml 0 ml Output Total 0 ml 0 ml Balance 100 ml 0 ml Intake Oral 0 ml 0 ml Other 100 ml Output Urine Total 0 ml 0 ml Hemodialysis UF 0 ml # Voids 1 # Bowel Movements 2 Laboratory Tests 05/18/17 19:00: C-Reactive Protein, Quantitative 20.9H 05/19/17 08:35: White Blood Count 5.5, Red Blood Count 3.64L, Hemoglobin 11.3L, Hematocrit 35.4L , Mean Corpuscular Volume 97, Mean Corpuscular Hemoglobin 31.2H, Mean Corpuscular Hemoglobin Concent 32.0, Red Cell Distribution Width 14.1, Platelet Count 142L, Mean Platelet Volume 10.5H, Neutrophils (%) (Auto) 66.5, Lymphocytes (%) (Auto) 21.7, Monocytes (%) (Auto) 8.2, Eosinophils (%) (Auto) 2.5, Basophils (%) (Auto) 1.1, Sodium Level 137, Potassium Level 4.4, Chloride Level 97L, Carbon Dioxide Level 23, Anion Gap 17H, Blood Urea Nitrogen 57H, Creatinine 14.2H, Estimat Glomerular Filtration Rate 3.3, Glucose Level 90, Calcium Level 9.9, Phosphorus Level 7.0H, Magnesium Level 1.6L, Total Bilirubin 0.5, Aspartate Amino Transf (AST/SGOT) 14L, Alanine Aminotransferase (ALT/SGPT) 30, Alkaline Phosphatase 248H, Troponin I 0.000, Pro-B-Type Natriuretic Peptide 963H, Total Protein 8.0, Albumin 3.2L, Globulin 4.8, Albumin/Globulin Ratio 0.7L Height (Feet): 5 Height (Inches): 6.00 Weight (Pounds): 200 General Appearance: no apparent distress Cardiovascular: tachycardia Respiratory/Chest: decreased breath sounds Abdomen: soft Objective no other change EDUARDO ROSE May 19, 2017 12:03
--- NOTE | 2017-05-19 12:51 | Internal Med Progress Note ---
Subjective Date of Service: May 19, 2017 Physician Name Shavonne Ugalde Attending Physician Ash Henley MD Current Medications Medications (Trade) Dose Ordered Sig/Marcos Route PRN Reason Start Time Stop Time Status Last Admin Dose Admin Acetaminophen (Tylenol) 650 mg Q4H PRN ORAL pain/headache 05/18/17 04:00 06/15/17 11:59 05/19/17 04:47 Albuterol/ Ipratropium (Albuterol/ Ipratropium) 3 ml Q4H PRN HHN Shortness of Breath 05/18/17 03:45 05/20/17 19:44 Cinacalcet (Sensipar) 30 mg 3XW ORAL 05/19/17 09:00 06/16/17 08:59 05/19/17 09:55 Dextrose (Dextrose 50%) STAT PRN IV Hypoglycemia 05/18/17 19:45 06/14/17 19:44 Diphenhydramine HCl (Benadryl) 25 mg Q6H PRN IVP Itching 05/18/17 05:30 06/16/17 11:29 Docusate Sodium (Colace) 100 mg THREE TIMES A DAY ORAL 05/18/17 09:00 06/15/17 12:59 05/19/17 12:24 Heparin Sodium (Porcine) (Heparin 5000 units/ml) 5,000 units EVERY 12 HOURS SUBQ 05/18/17 09:00 06/14/17 20:59 05/19/17 10:00 Heparin Sodium (Porcine) (Heparin Sod 1000 units/ml 10ml) 2,000 unit THREE TIMES A WEEK PRN IV FOR DIALYSIS USE 05/18/17 02:30 05/23/17 02:29 Midodrine (Pro-Amatine) 10 mg THREE TIMES A DAY ORAL 05/18/17 09:00 06/16/17 12:59 05/19/17 12:24 Ondansetron HCl (Zofran) 4 mg Q6H PRN IVP Nausea & Vomiting 05/18/17 07:45 06/14/17 19:44 Pantoprazole (Protonix) 40 mg EVERY 12 HOURS ORAL 05/18/17 09:00 06/14/17 20:59 05/19/17 09:57 Polyethylene Glycol (Miralax) 17 gm DAILYPRN PRN ORAL Constipation 05/18/17 19:45 06/14/17 19:44 Promethazine HCl/ Codeine (Phenergan with Codeine) 5 ml Q4H PRN ORAL For Cough 05/18/17 05:00 06/15/17 08:59 Sevelamer Carbonate (Renvela) 1,600 mg THREE TIMES A DAY ORAL 05/18/17 09:00 06/15/17 08:59 05/19/17 12:24 Temazepam (Restoril) 15 mg HSPRN PRN ORAL Insomnia 05/18/17 21:00 05/22/17 20:59 Zolpidem Tartrate (Ambien) 5 mg BEDTIME PRN ORAL INSOMNIA 05/18/17 21:00 05/22/17 19:29 Allergies: Coded Allergies: CEFAZOLIN (Verified Allergy, Unknown, 10/02/10) CIPROFLOXACIN (Verified Allergy, Unknown, 10/02/10) GENTAMICIN (Verified Allergy, Unknown, 10/02/10) LEVOFLOXACIN (Verified Allergy, Unknown, 10/02/10) PENICILLINS (Verified Allergy, Unknown, ITCH, 10/02/10) Uncoded Allergies: CONTRAST MEDIA (Adverse Reaction, Mild, MILD ITCHING AFTER CONTRAST MEDIA, 04/30/17) ROS Limited/Unobtainable: No Constitutional: Reports: no symptoms HEENT: Reports: no symptoms Cardiovascular: Reports: no symptoms Respiratory: Reports: shortness of breath Gastrointestinal/Abdominal: Reports: no symptoms Genitourinary: Reports: no symptoms Neurologic/Psychiatric: Reports: no symptoms Subjective 52 YO F admitted with shortness of breath. ICU. Continues on non-rebreather. Hypotensive. . Cover for Int Med Dr Henley. Objective Last Vital Signs Date Time Temp Pulse Resp B/P (MAP) Pulse Ox O2 Delivery O2 Flow Rate FiO2 05/19/17 12:00 98.5 78 20 81/40 91 Non-Rebreather 15.0 05/19/17 07:56 100 Laboratory Tests Test 05/18/17 19:00 05/19/17 08:20 05/19/17 08:35 C-Reactive Protein, Quantitative 20.9 mg/dL (0.00-0.90) H 23.2 mg/dL (0.00-0.90) H White Blood Count 5.5 K/UL (4.8-10.8) Red Blood Count 3.64 M/UL (4.20-5.40) L Hemoglobin 11.3 G/DL (12.0-16.0) L Hematocrit 35.4 % (37.0-47.0) L Mean Corpuscular Volume 97 FL (80-99) Mean Corpuscular Hemoglobin 31.2 PG (27.0-31.0) H Mean Corpuscular Hemoglobin Concent 32.0 G/DL (32.0-36.0) Red Cell Distribution Width 14.1 % (11.6-14.8) Platelet Count 142 K/UL (150-450) L Mean Platelet Volume 10.5 FL (6.5-10.1) H Neutrophils (%) (Auto) 66.5 % (45.0-75.0) Lymphocytes (%) (Auto) 21.7 % (20.0-45.0) Monocytes (%) (Auto) 8.2 % (1.0-10.0) Eosinophils (%) (Auto) 2.5 % (0.0-3.0) Basophils (%) (Auto) 1.1 % (0.0-2.0) Sodium Level 137 MMOL/L (136-145) Potassium Level 4.4 MMOL/L (3.5-5.1) Chloride Level 97 MMOL/L (98-107) L Carbon Dioxide Level 23 MMOL/L (21-32) Anion Gap 17 mmol/L (5-15) H Blood Urea Nitrogen 57 mg/dL (7-18) H Creatinine 14.2 MG/DL (0.55-1.30) H Estimat Glomerular Filtration Rate 3.3 mL/min (>60) Glucose Level 90 MG/DL (74-106) Calcium Level 9.9 MG/DL (8.5-10.1) Phosphorus Level 7.0 MG/DL (2.5-4.9) H Magnesium Level 1.6 MG/DL (1.8-2.4) L Total Bilirubin 0.5 MG/DL (0.2-1.0) Aspartate Amino Transf (AST/SGOT) 14 U/L (15-37) L Alanine Aminotransferase (ALT/SGPT) 30 U/L (12-78) Alkaline Phosphatase 248 U/L (46-116) H Troponin I 0.000 ng/mL (0.000-0.056) Pro-B-Type Natriuretic Peptide 963 pg/mL (0-125) H Total Protein 8.0 G/DL (6.4-8.2) Albumin 3.2 G/DL (3.4-5.0) L Globulin 4.8 g/dL Albumin/Globulin Ratio 0.7 (1.0-2.7) L Microbiology Date/Time Source Procedure Growth Status 05/16/17 18:40 Sputum Gram Stain - Final Complete 05/16/17 18:40 Sputum Sputum Culture - Final NORMAL UPPER RESPIRATORY ESTEPHANIE PRESENT Complete Intake and Output 05/18/17 05/19/17 19:00 07:00 Intake Total 100 ml 0 ml Output Total 0 ml 0 ml Balance 100 ml 0 ml Intake Oral 0 ml 0 ml Other 100 ml Output Urine Total 0 ml 0 ml Hemodialysis UF 0 ml # Voids 1 # Bowel Movements 2 Objective General Appearance: WD/WN, no apparent distress, alert EENT: PERRL/EOMI, normal ENT inspection, TMs normal Neck: non-tender, normal alignment, supple, normal inspection Cardiovascular: normal peripheral pulses, normal rate, regular rhythm, no gallop/murmur, no JVD Respiratory/Chest: Non-rebreather; chest wall non-tender, no respiratory distress, no accessory muscle use, crackles/rales, rhonchi - bilaterally, expiratory wheezing Abdomen: normal bowel sounds, non tender, soft, no organomegaly, no mass Extremities: normal range of motion, non-tender 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 Continue midodrine. Await echocardiogram and cardiology consult. (2) Shortness of breath Assessment & Plan: Resolving. Tolerating nasal canula. See pulmonary note. (3) ESRD (end stage renal disease) on dialysis Assessment & Plan: Await hemodialysis today. See nephrology note. (4) Acute respiratory failure with hypoxemia Assessment & Plan: currently on non-rebreather mask Status: deteriorating SHAVONNE UGALDE May 19, 2017 12:51
--- NOTE | 2017-05-19 14:33 | Cardiology Report ---
APPROVED REPORT EXAM: Two-dimensional and M-mode echocardiogram with Doppler and color Doppler. INDICATION Left Ventricular Function M-Mode DIMENSIONS IVSd1.0 (0.7-1.1cm)Left Atrium (MM)3.9 (1.6-4.0cm) LVDd3.5 (3.5-5.6cm)Aortic Root2.9 (2.0-3.7cm) PWd1.1 (0.7-1.1cm)Aortic Cusp Exc.1.7 (1.5-2.0cm) LVDs2.5 (2.5-4.0cm) PWs1.2 cm Technically difficult study due to poor parasternal acoustical windows. Study quality precludes accurate assessment of regional wall motion. Normal left ventricular chamber size, systolic function and wall motion. Left ventricular ejection fraction estimated to be 55 %. No evidence of left ventricular hypertrophy. Anterior Echo-free space, may be due to pericardial fat or effusion. All other cardiac chamber sizes are within normal limits. Focal aortic valve sclerosis with adequate cusp excursion. Thickened mitral valve leaflets with normal excursion. Mild mitral annulus and aortic root calcification. Pulmonic valve not well visualized. Tricuspid valve not well visualized. IVC is normal in size with physiological collapse. A color flow and spectral Doppler study was performed and revealed: No aortic insufficiency. No mitral regurgitation. reduced left ventricular relaxation c/w impaired relaxation diastolic dysfunction. Mild tricuspid regurgitation. Tricuspid systolic velocities suggests peak right ventricular systolic pressure of 32 mmHg. No pulmonic regurgitation present.
--- NOTE | 2017-05-19 15:37 | Cardiology Progress Note ---
Subjective Subjective no pericardial effuion no bacteremai normla 8 am cortisol level no sx of hypotension arterial dupel of upper ext adnd lower ext to exclude obtruction ivf bolus to see if any improvement may be 100 cc of ns one time trial agree with ct however this is myu first time seeign her adn would like to watch her bp little more before sendign her down off icu [id number] Objective Last 24 Hour Vital Signs Date Time Temp Pulse Resp B/P (MAP) Pulse Ox O2 Delivery O2 Flow Rate FiO2 05/19/17 15:07 93 70 05/19/17 14:00 58 19 66/39 91 Non-Rebreather 15.0 05/19/17 13:24 96 56 05/19/17 13:00 60 22 83/49 92 Non-Rebreather 15.0 05/19/17 12:00 98.5 78 20 81/40 91 Non-Rebreather 15.0 05/19/17 12:00 78 05/19/17 11:32 95 05/19/17 11:00 91 21 57/37 93 Non-Rebreather 15.0 05/19/17 10:00 86 19 48/37 93 Non-Rebreather 15.0 05/19/17 09:56 96 67 05/19/17 09:00 75 21 63/43 93 Non-Rebreather 15.0 05/19/17 08:00 98.0 73 19 63/47 93 Non-Rebreather 15.0 05/19/17 08:00 58 05/19/17 07:56 96 69 05/19/17 07:56 69 21 Non-Rebreather 15.0 100 05/19/17 07:56 Non-Rebreather 15.0 100 05/19/17 07:56 96 Non-Rebreather 15.0 100 05/19/17 07:00 59 20 82/37 93 Non-Rebreather 15.0 05/19/17 06:15 98.0 05/19/17 06:00 60 20 82/52 91 Non-Rebreather 15.0 05/19/17 05:00 69 21 84/48 90 Non-Rebreather 15.0 05/19/17 04:00 98.2 64 20 73/38 90 Non-Rebreather 15.0 1/31/18 04:00 59 05/19/17 03:58 78 94 05/19/17 03:00 67 21 72/34 93 Non-Rebreather 15.0 05/19/17 02:00 68 21 70/50 89 Non-Rebreather 15.0 05/19/17 01:47 62 96 05/19/17 01:00 66 21 76/45 89 Non-Rebreather 15.0 05/19/17 00:00 98.0 66 23 71/55 93 Non-Rebreather 15.0 05/18/17 23:10 68 92 05/18/17 23:00 63 23 76/40 91 Non-Rebreather 15.0 05/18/17 22:00 60 22 77/45 93 Non-Rebreather 15.0 05/18/17 21:00 62 25 77/45 90 Non-Rebreather 15.0 05/18/17 20:34 85 18 100 05/18/17 20:32 100 Non-Rebreather 15.0 100 05/18/17 20:31 85 20 Non-Rebreather 15.0 100 05/18/17 20:31 Non-Rebreather 15.0 100 05/18/17 20:00 98.3 69 24 79/41 90 Non-Rebreather 15.0 05/18/17 20:00 84 05/18/17 19:05 86 18 73/37 90 Nasal Cannula 4.0 05/18/17 18:00 84 17 78/44 90 Nasal Cannula 4.0 05/18/17 17:00 65 20 101/74 90 Nasal Cannula 4.0 05/18/17 16:00 98.5 67 24 70/41 91 Nasal Cannula 4.0 05/18/17 16:00 73 Intake and Output 05/18/17 05/19/17 19:00 07:00 Intake Total 100 ml 0 ml Output Total 0 ml 0 ml Balance 100 ml 0 ml Intake Oral 0 ml 0 ml Other 100 ml Output Urine Total 0 ml 0 ml Hemodialysis UF 0 ml # Voids 1 # Bowel Movements 2 Laboratory Tests Test 05/18/17 19:00 05/19/17 08:20 05/19/17 08:35 C-Reactive Protein, Quantitative 20.9 mg/dL (0.00-0.90) H 23.2 mg/dL (0.00-0.90) H White Blood Count 5.5 K/UL (4.8-10.8) Red Blood Count 3.64 M/UL (4.20-5.40) L Hemoglobin 11.3 G/DL (12.0-16.0) L Hematocrit 35.4 % (37.0-47.0) L Mean Corpuscular Volume 97 FL (80-99) Mean Corpuscular Hemoglobin 31.2 PG (27.0-31.0) H Mean Corpuscular Hemoglobin Concent 32.0 G/DL (32.0-36.0) Red Cell Distribution Width 14.1 % (11.6-14.8) Platelet Count 142 K/UL (150-450) L Mean Platelet Volume 10.5 FL (6.5-10.1) H Neutrophils (%) (Auto) 66.5 % (45.0-75.0) Lymphocytes (%) (Auto) 21.7 % (20.0-45.0) Monocytes (%) (Auto) 8.2 % (1.0-10.0) Eosinophils (%) (Auto) 2.5 % (0.0-3.0) Basophils (%) (Auto) 1.1 % (0.0-2.0) Sodium Level 137 MMOL/L (136-145) Potassium Level 4.4 MMOL/L (3.5-5.1) Chloride Level 97 MMOL/L (98-107) L Carbon Dioxide Level 23 MMOL/L (21-32) Anion Gap 17 mmol/L (5-15) H Blood Urea Nitrogen 57 mg/dL (7-18) H Creatinine 14.2 MG/DL (0.55-1.30) H Estimat Glomerular Filtration Rate 3.3 mL/min (>60) Glucose Level 90 MG/DL (74-106) Calcium Level 9.9 MG/DL (8.5-10.1) Phosphorus Level 7.0 MG/DL (2.5-4.9) H Magnesium Level 1.6 MG/DL (1.8-2.4) L Total Bilirubin 0.5 MG/DL (0.2-1.0) Aspartate Amino Transf (AST/SGOT) 14 U/L (15-37) L Alanine Aminotransferase (ALT/SGPT) 30 U/L (12-78) Alkaline Phosphatase 248 U/L (46-116) H Troponin I 0.000 ng/mL (0.000-0.056) Pro-B-Type Natriuretic Peptide 963 pg/mL (0-125) H Total Protein 8.0 G/DL (6.4-8.2) Albumin 3.2 G/DL (3.4-5.0) L Globulin 4.8 g/dL Albumin/Globulin Ratio 0.7 (1.0-2.7) L Microbiology Date/Time Source Procedure Growth Status 05/16/17 18:40 Sputum Gram Stain - Final Complete 05/16/17 18:40 Sputum Sputum Culture - Final NORMAL UPPER RESPIRATORY ESTEPHANIE PRESENT Complete RUMA RAMÍREZ May 19, 2017 15:37
[2017-05-19] MEDS: Dyna-Hex 2% Top Sol 2oz TOPIC SCH (20:36)
[2017-05-20] VITALS (23 sets, daily range): BP systolic 66–111; BP diastolic 35–57
[2017-05-20 04:25] LABS: BASOPHILS % (AUTO) 0.5 % (0.0-2.0); EOSINOPHILS % (AUTO) 2.9 % (0.0-3.0); HEMATOCRIT 35.3 % (37.0-47.0); HEMOGLOBIN 11.7 G/DL (12.0-16.0); LYMPHOCYTES % (AUTO) 25.1 % (20.0-45.0); MEAN CORPUSCULAR VOLUME 98 FL (80-99); MONOCYTES % (AUTO) 7.4 % (1.0-10.0); NEUTROPHILS % (AUTO) 64.1 % (45.0-75.0); PLATELET COUNT 149 K/UL (150-450); RED BLOOD COUNT 3.62 M/UL (4.20-5.40); RED CELL DISTRIBUTION WIDTH 13.6 % (11.6-14.8)
[2017-05-20 04:58] LABS: ALANINE AMINOTRANSFERASE 27 U/L (12-78); ALBUMIN 3.2 G/DL (3.4-5.0); ALBUMIN/GLOBULIN RATIO 0.7 (1.0-2.7); ALKALINE PHOSPHATASE 244 U/L (46-116); ANION GAP 17 mmol/L (5-15); ASPARTATE AMINO TRANSFERASE 13 U/L (15-37); BILIRUBIN,TOTAL 0.4 MG/DL (0.2-1.0); BLOOD UREA NITROGEN 65 mg/dL (7-18); CALCIUM 9.2 MG/DL (8.5-10.1); CARBON DIOXIDE 24 MMOL/L (21-32); CHLORIDE 97 MMOL/L (98-107); CREATININE 15.4 MG/DL (0.55-1.30); PHOSPHORUS 6.5 MG/DL (2.5-4.9); POTASSIUM 4.5 MMOL/L (3.5-5.1); SODIUM 138 MMOL/L (136-145)
--- NOTE | 2017-05-20 07:00 | Consultation ---
DATE OF CONSULTATION: 05/19/2017 NOTE: POOR AUDIO CARDIOLOGY CONSULTATION CONSULTING PHYSICIAN: Clint Jay M.D. REFERRING PHYSICIAN: Cuate Schmidt M.D. REASON FOR REFERRAL: Hypotension. HISTORY OF PRESENT ILLNESS: This is an elderly female who has multiple medical problems. The patient was admitted to the hospital where initially she complained of shortness of breath for one week. She really has not had any chest pains. She has not had any . She has end-stage renal disease, on hemodialysis and gets them on Wednesday, Wednesday, and Fridays. She has had some short of breath 2 weeks earlier that lasted approximately two days, resolved, and came back again. She does not really have any coughing. There is no PND. There is no orthopnea, but she likes to use one to two pillows for comfort only. No heart pounding or palpitations. There is no dizziness or lightheadedness on standing. She used to be active, walking a couple of days a week with her neighbor, and she does not really have to stop because of shortness of breath. Her blood pressure readings have been on the low side since she has been here and this consultation requested. The patient tells me that she has had low blood pressure readings before, but in view of the patient's old chart, some that is true. PAST MEDICAL HISTORY: Positive for history of recent hospitalization here in the [facility], and at that time, she was given diagnoses at discharge of bronchitis and flu-like symptoms and she has end-stage renal disease, hypertension, morbid obesity, and anemia of chronic disease. She also has history of bacteremia, multiple PermCath fistulas. She has had history of cholecystectomy; parathyroidectomy; carpal tunnel surgery; open reduction and internal fixation of the left elbow; renal transplant x2, both of which have apparently failed; history of peritoneal dialysis port as well. ALLERGIES: She is allergic to cefazolin, Cipro, gentamicin, levofloxacin and penicillin. SOCIAL HISTORY: She does not smoke. Does not drink. Does not use drugs. She basically is stable. 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 REVIEW OF SYSTEMS: GASTROINTESTINAL: She denies. GENITOURINARY: She does not make any urine. PULMONARY: She did have some coughing initially productive of white sputum, but normal sputum now. CONSTITUTIONAL: Negative. NEUROLOGIC: Negative. PHYSICAL EXAMINATION: GENERAL: Her physical exam shows her to be elderly female, in no respiratory distress. She is lying down flat. NECK: Supple. No jugular venous distention. LUNGS: Appear to be clear to auscultation and percussion. CARDIAC: S1 is normal. S2 is normal. Regular rhythm. Borderline tachycardia. No RV lifts, heaves, thrills, or gallops noted. ABDOMEN: Soft. Obese. Positive bowel sounds. EXTREMITIES: There is no edema. NEUROLOGIC: She is awake, alert, responsive, in no apparent distress. LABORATORY AND DIAGNOSTIC DATA: Her blood pressure has been ranging as low as 48/37 to as high as 84/78, but she has had some low blood pressure readings yesterday. Review of her prior chart indicates she has had some blood pressure readings as high as 104 and as low as 72/45. Her white count is 5.5 with a hemoglobin of 11.3 and platelet count of 142. PH is 7.46, pCO2 20, pO2 of 46, and 95% saturation, this was on yesterday. Her sodium is 137, potassium 4.4, chloride 97, bicarbonate 23, BUN of 57, creatinine of 14.2, and a glucose of 90. Calcium is 9.0. Troponin is 0.0. CRP is . ProBNP is only 963 despite renal failure. Her serum cortisol two days ago was 10.8 and her TSH two days ago 1.6 and B12 was 399 previously and her total cholesterol was 164 on 05/01/2017 with an LDL of 70 on 05/01/2017 as well. Her EKG on 05/15/2017 shows low voltage and some nonspecific T-wave changes in multiple leads, otherwise, sinus rhythm. Telemetry shows sinus and no evidence of . She did have an echocardiogram that was performed today that was interpreted as technically difficult. Grossly normal left ventricular systolic function. Ejection fraction 55% and thickened mitral valve leaflet with normal excursion. No significant regurgitation. Relaxation was noted. She also has had a chest x-ray that was performed yesterday shows right Port-A-Cath, retrocardiac hiatal hernia, bilateral surgical clips, atelectasis, scarring. Pleural space is otherwise clear. The heart is normal in size. ASSESSMENT AND PLAN: 1. Low blood pressure readings/hypotension. 2. End-stage renal disease, on hemodialysis. 3. Shortness of breath. 4. Hypoxemia. Dr. Schmidt, this patient was seen in cardiac consultation. The patient does not appear to be fluid overloaded despite the fact that she is hypoxemic. She does not feel short of breath and she noted that she feels dizzy due to the fact that she is hypotensive. Nursing staff indicated they have checked the blood pressure in all four extremities and have got equal results from every where. Echocardiogram does not show any evidence of pericardial effusion to suggest compression. She has a cortisol level recently that appeared to be normal in the morning and she is not having any evidence of bacteremia. Because she is asymptomatic with this degree of hypotension, I wonder if this could be related to vascular calcification and arterial stenoses of her various extremities that caused her to have blood pressure readings. She has had levels of blood pressure in the 70s previously, she is in the 70s at the present time and being asymptomatic; however, she has had her levels as high as 102, most of the time she is in the 90s. We would recommend checking arterial duplex study of her upper extremities bilaterally to see if any significant stenoses in the subclavian or the of the upper extremities identified. I would not mind a small bolus of normal saline to see if her blood pressure does improve taken care for her. She does not appear to be in any shortness of breath despite the fact that her oxygen saturations have been questionable at times. I wonder if the same process may be causing her readings of her oxygen saturations. Nevertheless, those should be monitored and further recommendations as become necessary. Clint Jay M.D. DR: KATHRYN JOB#: [id number] CC:
[2017-05-20] MEDS: Midodrine 10mg tab ORAL SCH ×3 (09:39→18:37)
[2017-05-20] MEDS: Docusate 100mg cap ORAL SCH ×3 (09:40→18:37)
[2017-05-20] MEDS: Heparin 5000 units/ml inj SUBQ SCH ×2 (09:44→21:21)
--- NOTE | 2017-05-20 10:25 | Pulmonolgy Critical Care Note ---
Critical Care - Asmt/Plan Problems: (1) Acute respiratory failure with hypoxemia (2) ESRD (end stage renal disease) on dialysis (3) Hypoparathyroidism Respiratory: monitor respiratory rate, adjust FIO2, other - v/q scan Cardiac: continue to monitor HR/BP Renal: F/U I&O, other - radio rigger recommended IV steroids. Infectious Disease: other - check sputum Gastrointestinal: continue feedings/current rate Endocrine: monitor blood sugar Hematologic: monitor H/H, transfuse if hgb<8.5 Neurologic: keep patient comfortable Affect: PRN ativan Prophylaxis: Protonix Time Spent (Minutes): 40 Notes Reviewed: renal Discussed with: nurses, consultants, rifle case repairerinside sales manager - Objective Last 24 Hour Vital Signs Date Time Temp Pulse Resp B/P (MAP) Pulse Ox O2 Delivery O2 Flow Rate FiO2 05/20/17 09:00 69 20 75/43 90 Non-Rebreather 15.0 05/20/17 08:00 97.8 68 19 84/49 91 Non-Rebreather 15.0 05/20/17 08:00 68 05/20/17 07:29 Non-Rebreather 15.0 100 05/20/17 07:29 91 Non-Rebreather 15.0 100 05/20/17 07:28 55 18 Non-Rebreather 15.0 100 05/20/17 07:00 56 19 78/43 91 Non-Rebreather 15.0 05/20/17 06:00 55 19 80/41 94 Non-Rebreather 15.0 05/20/17 05:00 52 19 72/40 93 Non-Rebreather 15.0 05/20/17 04:00 58 05/20/17 04:00 97.9 58 21 79/46 91 Non-Rebreather 15.0 05/20/17 03:00 60 19 71/40 91 Non-Rebreather 15.0 05/20/17 02:00 63 19 82/51 91 Non-Rebreather 15.0 05/20/17 01:00 57 19 75/42 92 Non-Rebreather 15.0 05/20/17 00:00 97.7 55 19 88/44 92 Non-Rebreather 15.0 05/20/17 00:00 60 05/19/17 23:00 59 19 87/47 91 Non-Rebreather 15.0 05/19/17 22:00 61 19 76/39 91 Non-Rebreather 15.0 05/19/17 21:00 48 19 81/43 95 Non-Rebreather 15.0 05/19/17 20:00 59 05/19/17 20:00 97.5 49 19 79/41 96 Non-Rebreather 15.0 05/19/17 19:00 65 21 88/48 94 Non-Rebreather 15.0 05/19/17 19:00 Non-Rebreather 15.0 100 05/19/17 19:00 68 17 Non-Rebreather 15.0 100 05/19/17 19:00 90 Non-Rebreather 15.0 100 05/19/17 18:00 66 20 73/44 94 Non-Rebreather 15.0 05/19/17 17:15 95 69 05/19/17 17:00 54 19 82/47 92 Non-Rebreather 15.0 05/19/17 16:00 98.2 58 19 85/44 90 Non-Rebreather 15.0 05/19/17 15:48 58 05/19/17 15:07 93 70 05/19/17 15:00 58 19 78/40 91 Non-Rebreather 15.0 05/19/17 14:00 58 19 66/39 91 Non-Rebreather 15.0 05/19/17 13:24 96 56 05/19/17 13:00 60 22 83/49 92 Non-Rebreather 15.0 05/19/17 12:00 98.5 78 20 81/40 91 Non-Rebreather 15.0 05/19/17 12:00 78 05/19/17 11:32 95 05/19/17 11:00 91 21 57/37 93 Non-Rebreather 15.0 Condition: critical HEENT: atraumatic Lungs: clear Heart: HR/BP stable Abdomen: soft, non-tender Extremities: no C/C/E Decubiti: location Critical Care - Subjective ROS Limited/Unobtainable: No ICU Day: 4 Interval Events: still on 100% nrm Condition: critical FI02: 100 Sputum Amount: None I&O: Intake and Output 05/19/17 05/20/17 19:00 07:00 Intake Total 300 ml 0 ml Output Total 0 ml 0 ml Balance 300 ml 0 ml Intake Oral 300 ml 0 ml Output Urine Total 0 ml 0 ml # Bowel Movements 1 CXR: clear Labs: Laboratory Tests Test 05/20/17 03:55 White Blood Count 5.0 K/UL (4.8-10.8) Red Blood Count 3.62 M/UL (4.20-5.40) L Hemoglobin 11.7 G/DL (12.0-16.0) L Hematocrit 35.3 % (37.0-47.0) L Mean Corpuscular Volume 98 FL (80-99) Mean Corpuscular Hemoglobin 32.3 PG (27.0-31.0) H Mean Corpuscular Hemoglobin Concent 33.1 G/DL (32.0-36.0) Red Cell Distribution Width 13.6 % (11.6-14.8) Platelet Count 149 K/UL (150-450) L Mean Platelet Volume 10.0 FL (6.5-10.1) Neutrophils (%) (Auto) 64.1 % (45.0-75.0) Lymphocytes (%) (Auto) 25.1 % (20.0-45.0) Monocytes (%) (Auto) 7.4 % (1.0-10.0) Eosinophils (%) (Auto) 2.9 % (0.0-3.0) Basophils (%) (Auto) 0.5 % (0.0-2.0) Sodium Level 138 MMOL/L (136-145) Potassium Level 4.5 MMOL/L (3.5-5.1) Chloride Level 97 MMOL/L (98-107) L Carbon Dioxide Level 24 MMOL/L (21-32) Anion Gap 17 mmol/L (5-15) H Blood Urea Nitrogen 65 mg/dL (7-18) H Creatinine 15.4 MG/DL (0.55-1.30) H Estimat Glomerular Filtration Rate 2.9 mL/min (>60) Glucose Level 90 MG/DL (74-106) Uric Acid 7.6 MG/DL (2.6-7.2) H Calcium Level 9.2 MG/DL (8.5-10.1) Phosphorus Level 6.5 MG/DL (2.5-4.9) H Magnesium Level 1.5 MG/DL (1.8-2.4) L Total Bilirubin 0.4 MG/DL (0.2-1.0) Aspartate Amino Transf (AST/SGOT) 13 U/L (15-37) L Alanine Aminotransferase (ALT/SGPT) 27 U/L (12-78) Alkaline Phosphatase 244 U/L (46-116) H Troponin I 0.000 ng/mL (0.000-0.056) Pro-B-Type Natriuretic Peptide 1068 pg/mL (0-125) H Total Protein 8.0 G/DL (6.4-8.2) Albumin 3.2 G/DL (3.4-5.0) L Globulin 4.8 g/dL Albumin/Globulin Ratio 0.7 (1.0-2.7) L GABI DENNEY May 20, 2017 10:25
--- NOTE | 2017-05-20 10:45 | Diagnostic Imaging Report ---
Indication: Reason For Exam: DYSPNEA Technique: One view of the chest Comparison: 05/19/2017 Findings: Heart size and mediastinal contours are stable. Dialysis catheter unchanged in position with its tip in the region of the right atrium. Surgical clips and vascular stent again noted. There is linear atelectasis/scarring at the left base. No new focal consolidation. No large pleural effusion. No pneumothorax. Impression: Unchanged scarring/atelectasis at left base. No new focal consolidation.
[2017-05-20] MEDS: Hydrocortisone 100mg Inj IV SCH ×2 (14:09→22:00)
--- NOTE | 2017-05-20 16:15 | Nephrology Progress Note ---
Assessment/Plan Problem List: (1) ESRD (end stage renal disease) on dialysis (2) Shortness of breath (3) Hypotension (4) Acute respiratory failure with hypoxemia Assessment patient remains hypotensive in ICU due dialysis today refuses meds ESRD- Dyspnea Hx Cardiac Problems: Yes - Hypotension Hx Asthma: Yes Hx Gastrointestinal Problems: Yes Hx Dialysis: Yes - MWF, last dialysis 01/20/17. Hx Neurological Problems: No - Plan Plan: Agree with trial of steroids Dialysis ordered for today-Permacath in her thigh max UF as jose was limited due to low BP Per consultants, pulm support Midodrine for low BP per orders pulmonary support change diet to Renal as K remains high per Cardiology Subjective ROS Limited/Unobtainable: No Constitutional: Reports: malaise, weakness Objective Objective Last 24 Hour Vital Signs Date Time Temp Pulse Resp B/P (MAP) Pulse Ox O2 Delivery O2 Flow Rate FiO2 05/20/17 15:00 69 17 85/49 91 Venturi Mask 55 05/20/17 14:00 70 18 80/40 93 Venturi Mask 55 05/20/17 12:00 60 05/20/17 12:00 97.9 58 18 73/39 93 Venturi Mask 55 05/20/17 11:00 74 18 79/35 93 Non-Rebreather 15.0 05/20/17 10:00 78 20 82/47 93 Non-Rebreather 15.0 05/20/17 09:00 69 20 75/43 90 Non-Rebreather 15.0 05/20/17 08:00 97.8 68 19 84/49 91 Non-Rebreather 15.0 05/20/17 08:00 68 05/20/17 07:29 Non-Rebreather 15.0 100 05/20/17 07:29 91 Non-Rebreather 15.0 100 05/20/17 07:28 55 18 Non-Rebreather 15.0 100 05/20/17 07:00 56 19 78/43 91 Non-Rebreather 15.0 05/20/17 06:00 55 19 80/41 94 Non-Rebreather 15.0 05/20/17 05:00 52 19 72/40 93 Non-Rebreather 15.0 05/20/17 04:00 58 05/20/17 04:00 97.9 58 21 79/46 91 Non-Rebreather 15.0 05/20/17 03:00 60 19 71/40 91 Non-Rebreather 15.0 05/20/17 02:00 63 19 82/51 91 Non-Rebreather 15.0 05/20/17 01:00 57 19 75/42 92 Non-Rebreather 15.0 05/20/17 00:00 97.7 55 19 88/44 92 Non-Rebreather 15.0 05/20/17 00:00 60 05/19/17 23:00 59 19 87/47 91 Non-Rebreather 15.0 05/19/17 22:00 61 19 76/39 91 Non-Rebreather 15.0 05/19/17 21:00 48 19 81/43 95 Non-Rebreather 15.0 05/19/17 20:00 59 05/19/17 20:00 97.5 49 19 79/41 96 Non-Rebreather 15.0 05/19/17 19:00 65 21 88/48 94 Non-Rebreather 15.0 05/19/17 19:00 Non-Rebreather 15.0 100 05/19/17 19:00 68 17 Non-Rebreather 15.0 100 05/19/17 19:00 90 Non-Rebreather 15.0 100 05/19/17 18:00 66 20 73/44 94 Non-Rebreather 15.0 05/19/17 17:15 95 69 05/19/17 17:00 54 19 82/47 92 Non-Rebreather 15.0 Intake and Output 05/19/17 05/20/17 19:00 07:00 Intake Total 300 ml 0 ml Output Total 0 ml 0 ml Balance 300 ml 0 ml Intake Oral 300 ml 0 ml Output Urine Total 0 ml 0 ml # Bowel Movements 1 Laboratory Tests 05/20/17 03:55: White Blood Count 5.0, Red Blood Count 3.62L, Hemoglobin 11.7L, Hematocrit 35.3L , Mean Corpuscular Volume 98, Mean Corpuscular Hemoglobin 32.3H, Mean Corpuscular Hemoglobin Concent 33.1, Red Cell Distribution Width 13.6, Platelet Count 149L, Mean Platelet Volume 10.0, Neutrophils (%) (Auto) 64.1, Lymphocytes (%) (Auto) 25.1, Monocytes (%) (Auto) 7.4, Eosinophils (%) (Auto) 2.9, Basophils (%) (Auto) 0.5, Sodium Level 138, Potassium Level 4.5, Chloride Level 97L, Carbon Dioxide Level 24, Anion Gap 17H, Blood Urea Nitrogen 65H, Creatinine 15.4H, Estimat Glomerular Filtration Rate 2.9, Glucose Level 90, Uric Acid 7.6H, Calcium Level 9.2, Phosphorus Level 6.5H, Magnesium Level 1.5L, Total Bilirubin 0.4, Aspartate Amino Transf (AST/SGOT) 13L, Alanine Aminotransferase (ALT/SGPT) 27, Alkaline Phosphatase 244H, Troponin I 0.000, Pro -B-Type Natriuretic Peptide 1068H, Total Protein 8.0, Albumin 3.2L, Globulin 4.8 , Albumin/Globulin Ratio 0.7L Height (Feet): 5 Height (Inches): 6.00 Weight (Pounds): 204 General Appearance: mild distress Cardiovascular: normal rate, bradycardia Respiratory/Chest: decreased breath sounds Abdomen: distended Objective no other change EDUARDO ROSE May 20, 2017 16:15
--- NOTE | 2017-05-20 17:37 | Cardiology Progress Note ---
Assessment/Plan Assessment/Plan 1. Low blood pressure readings/hypotension. 2. End-stage renal disease, on hemodialysis. 3. Shortness of breath. 4. Hypoxemia. no pericardial effusion norml cortisol no bacteremia arterial duplex showed no upper ext arterial stenosis her bp remains low but she remain asymtomatic trop neg likely chornic low bp readings did not have ct as contrast allergy had v/q res pending Subjective Cardiovascular: Denies: chest pain, lightheadedness, palpitations Respiratory: Denies: cough, shortness of breath Gastrointestinal/Abdominal: Denies: abdominal pain Genitourinary: Denies: burning Subjective walked to br no symptoms Objective Last 24 Hour Vital Signs Date Time Temp Pulse Resp B/P (MAP) Pulse Ox O2 Delivery O2 Flow Rate FiO2 05/20/17 17:00 56 16 81/52 93 Venturi Mask 55 05/20/17 16:00 61 05/20/17 16:00 98.1 60 18 75/45 95 Venturi Mask 55 05/20/17 15:00 69 17 85/49 91 Venturi Mask 55 05/20/17 14:00 70 18 80/40 93 Venturi Mask 55 05/20/17 12:00 60 05/20/17 12:00 97.9 58 18 73/39 93 Venturi Mask 55 05/20/17 11:00 74 18 79/35 93 Non-Rebreather 15.0 05/20/17 10:00 78 20 82/47 93 Non-Rebreather 15.0 05/20/17 09:00 69 20 75/43 90 Non-Rebreather 15.0 05/20/17 08:00 97.8 68 19 84/49 91 Non-Rebreather 15.0 05/20/17 08:00 68 05/20/17 07:29 Non-Rebreather 15.0 100 05/20/17 07:29 91 Non-Rebreather 15.0 100 05/20/17 07:28 55 18 Non-Rebreather 15.0 100 05/20/17 07:00 56 19 78/43 91 Non-Rebreather 15.0 05/20/17 06:00 55 19 80/41 94 Non-Rebreather 15.0 05/20/17 05:00 52 19 72/40 93 Non-Rebreather 15.0 05/20/17 04:00 58 05/20/17 04:00 97.9 58 21 79/46 91 Non-Rebreather 15.0 05/20/17 03:00 60 19 71/40 91 Non-Rebreather 15.0 05/20/17 02:00 63 19 82/51 91 Non-Rebreather 15.0 05/20/17 01:00 57 19 75/42 92 Non-Rebreather 15.0 05/20/17 00:00 97.7 55 19 88/44 92 Non-Rebreather 15.0 05/20/17 00:00 60 05/19/17 23:00 59 19 87/47 91 Non-Rebreather 15.0 05/19/17 22:00 61 19 76/39 91 Non-Rebreather 15.0 05/19/17 21:00 48 19 81/43 95 Non-Rebreather 15.0 05/19/17 20:00 59 05/19/17 20:00 97.5 49 19 79/41 96 Non-Rebreather 15.0 05/19/17 19:00 65 21 88/48 94 Non-Rebreather 15.0 05/19/17 19:00 Non-Rebreather 15.0 100 05/19/17 19:00 68 17 Non-Rebreather 15.0 100 05/19/17 19:00 90 Non-Rebreather 15.0 100 05/19/17 18:00 66 20 73/44 94 Non-Rebreather 15.0 General Appearance: alert Neck: no JVD Cardiovascular: normal rate, regular rhythm Respiratory/Chest: chest wall non-tender, lungs clear, normal breath sounds Abdomen: normal bowel sounds, non tender, soft Extremities: no swelling Intake and Output 05/19/17 05/20/17 19:00 07:00 Intake Total 300 ml 0 ml Output Total 0 ml 0 ml Balance 300 ml 0 ml Intake Oral 300 ml 0 ml Output Urine Total 0 ml 0 ml # Bowel Movements 1 Laboratory Tests Test 05/20/17 03:55 White Blood Count 5.0 K/UL (4.8-10.8) Red Blood Count 3.62 M/UL (4.20-5.40) L Hemoglobin 11.7 G/DL (12.0-16.0) L Hematocrit 35.3 % (37.0-47.0) L Mean Corpuscular Volume 98 FL (80-99) Mean Corpuscular Hemoglobin 32.3 PG (27.0-31.0) H Mean Corpuscular Hemoglobin Concent 33.1 G/DL (32.0-36.0) Red Cell Distribution Width 13.6 % (11.6-14.8) Platelet Count 149 K/UL (150-450) L Mean Platelet Volume 10.0 FL (6.5-10.1) Neutrophils (%) (Auto) 64.1 % (45.0-75.0) Lymphocytes (%) (Auto) 25.1 % (20.0-45.0) Monocytes (%) (Auto) 7.4 % (1.0-10.0) Eosinophils (%) (Auto) 2.9 % (0.0-3.0) Basophils (%) (Auto) 0.5 % (0.0-2.0) Sodium Level 138 MMOL/L (136-145) Potassium Level 4.5 MMOL/L (3.5-5.1) Chloride Level 97 MMOL/L (98-107) L Carbon Dioxide Level 24 MMOL/L (21-32) Anion Gap 17 mmol/L (5-15) H Blood Urea Nitrogen 65 mg/dL (7-18) H Creatinine 15.4 MG/DL (0.55-1.30) H Estimat Glomerular Filtration Rate 2.9 mL/min (>60) Glucose Level 90 MG/DL (74-106) Uric Acid 7.6 MG/DL (2.6-7.2) H Calcium Level 9.2 MG/DL (8.5-10.1) Phosphorus Level 6.5 MG/DL (2.5-4.9) H Magnesium Level 1.5 MG/DL (1.8-2.4) L Total Bilirubin 0.4 MG/DL (0.2-1.0) Aspartate Amino Transf (AST/SGOT) 13 U/L (15-37) L Alanine Aminotransferase (ALT/SGPT) 27 U/L (12-78) Alkaline Phosphatase 244 U/L (46-116) H Troponin I 0.000 ng/mL (0.000-0.056) Pro-B-Type Natriuretic Peptide 1068 pg/mL (0-125) H Total Protein 8.0 G/DL (6.4-8.2) Albumin 3.2 G/DL (3.4-5.0) L Globulin 4.8 g/dL Albumin/Globulin Ratio 0.7 (1.0-2.7) L RUMA RAMÍREZ May 20, 2017 17:37
[2017-05-20] MEDS ORDERED: Cathflo Alteplase 2mg Inj INJ ONE (18:00)
--- NOTE | 2017-05-20 18:51 | Internal Med Progress Note ---
Subjective Date of Service: May 20, 2017 Physician Name Shavonne Ugalde Attending Physician Ash Henley MD Current Medications Medications (Trade) Dose Ordered Sig/Marcos Route PRN Reason Start Time Stop Time Status Last Admin Dose Admin Acetaminophen (Tylenol) 650 mg Q4H PRN ORAL pain/headache 05/18/17 04:00 06/15/17 11:59 05/19/17 04:47 Albuterol/ Ipratropium (Albuterol/ Ipratropium) 3 ml Q4H PRN HHN Shortness of Breath 05/18/17 03:45 05/20/17 19:44 Chlorhexidine Gluconate (Nivia-Hex 2%) 1 applic DAILY@1999 TOPIC 05/19/17 20:00 06/18/17 19:59 05/19/17 20:36 Cinacalcet (Sensipar) 30 mg 3XW ORAL 05/19/17 09:00 06/16/17 08:59 05/19/17 09:55 Dextrose (Dextrose 50%) STAT PRN IV Hypoglycemia 05/18/17 19:45 06/14/17 19:44 Diphenhydramine HCl (Benadryl) 25 mg Q6H PRN IVP Itching 05/18/17 05:30 06/16/17 11:29 Docusate Sodium (Colace) 100 mg THREE TIMES A DAY ORAL 05/18/17 09:00 06/15/17 12:59 05/20/17 18:37 Heparin Sodium (Porcine) (Heparin 5000 units/ml) 5,000 units EVERY 12 HOURS SUBQ 05/18/17 09:00 06/14/17 20:59 05/20/17 09:44 Heparin Sodium (Porcine) (Heparin Sod 1000 units/ml 10ml) 2,000 unit THREE TIMES A WEEK PRN IV FOR DIALYSIS USE 05/18/17 02:30 05/23/17 02:29 Hydrocortisone (Solu-CORTEF) 100 mg EVERY 8 HOURS IV 05/20/17 14:00 06/19/17 13:59 05/20/17 14:09 Midodrine (Pro-Amatine) 10 mg THREE TIMES A DAY ORAL 05/18/17 09:00 06/16/17 12:59 05/20/17 18:37 Ondansetron HCl (Zofran) 4 mg Q6H PRN IVP Nausea & Vomiting 05/18/17 07:45 06/14/17 19:44 05/20/17 02:04 Pantoprazole (Protonix) 40 mg EVERY 12 HOURS ORAL 05/18/17 09:00 06/14/17 20:59 05/20/17 09:39 Polyethylene Glycol (Miralax) 17 gm DAILYPRN PRN ORAL Constipation 05/18/17 19:45 06/14/17 19:44 Promethazine HCl/ Codeine (Phenergan with Codeine) 5 ml Q4H PRN ORAL For Cough 05/18/17 05:00 06/15/17 08:59 Sevelamer Carbonate (Renvela) 1,600 mg THREE TIMES A DAY ORAL 05/18/17 09:00 06/15/17 08:59 05/20/17 18:37 Temazepam (Restoril) 15 mg HSPRN PRN ORAL Insomnia 05/18/17 21:00 05/22/17 20:59 Zolpidem Tartrate (Ambien) 5 mg BEDTIME PRN ORAL INSOMNIA 05/18/17 21:00 05/22/17 19:29 Allergies: Coded Allergies: CEFAZOLIN (Verified Allergy, Unknown, 10/02/10) CIPROFLOXACIN (Verified Allergy, Unknown, 10/02/10) GENTAMICIN (Verified Allergy, Unknown, 10/02/10) LEVOFLOXACIN (Verified Allergy, Unknown, 10/02/10) PENICILLINS (Verified Allergy, Unknown, ITCH, 10/02/10) Uncoded Allergies: CONTRAST MEDIA (Adverse Reaction, Mild, MILD ITCHING AFTER CONTRAST MEDIA, 04/30/17) ROS Limited/Unobtainable: No Constitutional: Reports: no symptoms HEENT: Reports: no symptoms Cardiovascular: Reports: no symptoms Respiratory: Reports: shortness of breath Gastrointestinal/Abdominal: Reports: no symptoms Genitourinary: Reports: no symptoms Neurologic/Psychiatric: Reports: no symptoms Subjective 52 YO F admitted with shortness of breath. ICU. Continues on venturi-mask. Hypotensive-on pressors. Cover for Int Med Dr Henley. Objective Last Vital Signs Date Time Temp Pulse Resp B/P (MAP) Pulse Ox O2 Delivery O2 Flow Rate FiO2 05/20/17 18:00 43 17 86/47 90 Venturi Mask 55 05/20/17 16:00 98.1 05/20/17 11:00 15.0 Laboratory Tests Test 05/20/17 03:55 White Blood Count 5.0 K/UL (4.8-10.8) Red Blood Count 3.62 M/UL (4.20-5.40) L Hemoglobin 11.7 G/DL (12.0-16.0) L Hematocrit 35.3 % (37.0-47.0) L Mean Corpuscular Volume 98 FL (80-99) Mean Corpuscular Hemoglobin 32.3 PG (27.0-31.0) H Mean Corpuscular Hemoglobin Concent 33.1 G/DL (32.0-36.0) Red Cell Distribution Width 13.6 % (11.6-14.8) Platelet Count 149 K/UL (150-450) L Mean Platelet Volume 10.0 FL (6.5-10.1) Neutrophils (%) (Auto) 64.1 % (45.0-75.0) Lymphocytes (%) (Auto) 25.1 % (20.0-45.0) Monocytes (%) (Auto) 7.4 % (1.0-10.0) Eosinophils (%) (Auto) 2.9 % (0.0-3.0) Basophils (%) (Auto) 0.5 % (0.0-2.0) Sodium Level 138 MMOL/L (136-145) Potassium Level 4.5 MMOL/L (3.5-5.1) Chloride Level 97 MMOL/L (98-107) L Carbon Dioxide Level 24 MMOL/L (21-32) Anion Gap 17 mmol/L (5-15) H Blood Urea Nitrogen 65 mg/dL (7-18) H Creatinine 15.4 MG/DL (0.55-1.30) H Estimat Glomerular Filtration Rate 2.9 mL/min (>60) Glucose Level 90 MG/DL (74-106) Uric Acid 7.6 MG/DL (2.6-7.2) H Calcium Level 9.2 MG/DL (8.5-10.1) Phosphorus Level 6.5 MG/DL (2.5-4.9) H Magnesium Level 1.5 MG/DL (1.8-2.4) L Total Bilirubin 0.4 MG/DL (0.2-1.0) Aspartate Amino Transf (AST/SGOT) 13 U/L (15-37) L Alanine Aminotransferase (ALT/SGPT) 27 U/L (12-78) Alkaline Phosphatase 244 U/L (46-116) H Troponin I 0.000 ng/mL (0.000-0.056) Pro-B-Type Natriuretic Peptide 1068 pg/mL (0-125) H Total Protein 8.0 G/DL (6.4-8.2) Albumin 3.2 G/DL (3.4-5.0) L Globulin 4.8 g/dL Albumin/Globulin Ratio 0.7 (1.0-2.7) L Intake and Output 05/19/17 05/20/17 19:00 07:00 Intake Total 300 ml 0 ml Output Total 0 ml 0 ml Balance 300 ml 0 ml Intake Oral 300 ml 0 ml Output Urine Total 0 ml 0 ml # Bowel Movements 1 Objective General Appearance: WD/WN, no apparent distress, alert EENT: PERRL/EOMI, normal ENT inspection, TMs normal Neck: non-tender, normal alignment, supple, normal inspection Cardiovascular: normal peripheral pulses, normal rate, regular rhythm, no gallop/murmur, no JVD Respiratory/Chest: Venturi mask; chest wall non-tender, no respiratory distress , no accessory muscle use, crackles/rales, rhonchi - bilaterally, expiratory wheezing Abdomen: normal bowel sounds, non tender, soft, no organomegaly, no mass Extremities: normal range of motion, non-tender Neurologic: transfer specialist II-XII grossly normal, no motor/sensory deficits Skin: normal pigmentation, warm/dry Assessment/Plan Problem List: (1) HTN (hypertension) Assessment & Plan: currently hypotensive. Continue levophed per cardiology (2) Shortness of breath Assessment & Plan: Tolerating venturi mask. See pulmonary note. (3) ESRD (end stage renal disease) on dialysis Assessment & Plan: Hemodialysis per nephrology- See nephrology note. (4) Acute respiratory failure with hypoxemia Assessment & Plan: currently on venturi mask-see pulmonary note Status: not improved SHAVONNE UGALDE May 20, 2017 18:51
--- NOTE | 2017-05-20 19:17 | Diagnostic Imaging Report ---
Indication: Chest pain Technique: A ventilation/perfusion scan was performed. Ventilation was performed utilizing 40 mCi of Technetium 99m-DTPA. Perfusion was performed with 5.1 mCi of technetium 99m-MAA injected intravenously. Multiple side by side projections obtained. Findings: Possible moderate-sized segmental mismatch seen on some views not definitively seen on others. Given these inconsistencies, difficult to categorize as low or high probability. Impression: Intermediate probability for pulmonary embolus.
[2017-05-20] MEDS: Dyna-Hex 2% Top Sol 2oz TOPIC SCH (20:02)
[2017-05-21] VITALS (24 sets, daily range): BP systolic 59–100; BP diastolic 38–63
[2017-05-21] MEDS: Hydrocortisone 100mg Inj IV SCH ×2 (05:45→14:12)
[2017-05-21 06:05] LABS: BASOPHILS % (AUTO) 0.7 % (0.0-2.0); EOSINOPHILS % (AUTO) 0.1 % (0.0-3.0); HEMATOCRIT 36.7 % (37.0-47.0); HEMOGLOBIN 12.2 G/DL (12.0-16.0); LYMPHOCYTES % (AUTO) 18.6 % (20.0-45.0); MEAN CORPUSCULAR VOLUME 98 FL (80-99); MONOCYTES % (AUTO) 3.6 % (1.0-10.0); PLATELET COUNT 156 K/UL (150-450); RED BLOOD COUNT 3.76 M/UL (4.20-5.40); WHITE BLOOD COUNT 5.5 K/UL (4.8-10.8)
[2017-05-21 06:32] LABS: ALANINE AMINOTRANSFERASE 24 U/L (12-78); ALBUMIN 3.3 G/DL (3.4-5.0); ALBUMIN/GLOBULIN RATIO 0.7 (1.0-2.7); ALKALINE PHOSPHATASE 258 U/L (46-116); ANION GAP 17 mmol/L (5-15); ASPARTATE AMINO TRANSFERASE 11 U/L (15-37); BILIRUBIN,TOTAL 0.4 MG/DL (0.2-1.0); BLOOD UREA NITROGEN 76 mg/dL (7-18); CALCIUM 9.5 MG/DL (8.5-10.1); CARBON DIOXIDE 23 MMOL/L (21-32); CHLORIDE 95 MMOL/L (98-107); CREATININE 16.7 MG/DL (0.55-1.30); POTASSIUM 4.8 MMOL/L (3.5-5.1); SODIUM 135 MMOL/L (136-145)
[2017-05-21 07:11] LABS: PHOSPHORUS 6.3 MG/DL (2.5-4.9)
[2017-05-21] MEDS: Docusate 100mg cap ORAL SCH ×3 (08:24→18:00)
[2017-05-21] MEDS: Midodrine 10mg tab ORAL SCH ×3 (08:24→18:40)
[2017-05-21] MEDS: Sensipar 30mg Tab ORAL SCH (08:24)
[2017-05-21] MEDS: Heparin 5000 units/ml inj SUBQ SCH ×2 (08:26→21:00)
--- NOTE | 2017-05-21 10:56 | Nephrology Progress Note ---
Assessment/Plan Problem List: (1) ESRD (end stage renal disease) on dialysis (2) Acute respiratory failure with hypoxemia (3) HTN (hypertension) (4) Acute bronchitis (5) Dyspnea Plan HD today Bronchodilators follow labs Discussed with RN Subjective Subjective seen in ICU better Objective Objective Last 24 Hour Vital Signs Date Time Temp Pulse Resp B/P (MAP) Pulse Ox O2 Delivery O2 Flow Rate FiO2 05/21/17 09:00 56 19 100/56 92 Nasal Cannula 4.0 05/21/17 08:00 98.2 50 19 97/63 91 Nasal Cannula 4.0 05/21/17 08:00 52 05/21/17 07:00 54 17 85/56 92 Nasal Cannula 4.0 05/21/17 06:59 66 18 Nasal Cannula 5.0 05/21/17 06:59 97 Nasal Cannula 5.0 05/21/17 06:59 Nasal Cannula 5.0 05/21/17 06:00 59 17 83/49 91 Nasal Cannula 4.0 05/21/17 05:00 54 20 83/49 90 Nasal Cannula 4.0 05/21/17 04:00 98.0 43 20 94/57 95 Venturi Mask 14.0 55 05/21/17 04:00 36 05/21/17 03:00 63 20 94/57 94 Venturi Mask 14.0 55 05/21/17 02:00 43 21 94/49 94 Venturi Mask 14.0 55 05/21/17 01:00 42 20 94/49 92 Venturi Mask 14.0 55 05/21/17 00:00 61 05/21/17 00:00 97.9 51 19 92/58 92 Venturi Mask 14.0 55 05/20/17 23:00 62 19 89/48 91 Venturi Mask 14.0 55 05/20/17 22:00 72 19 66/52 91 Venturi Mask 14.0 55 05/20/17 21:00 52 15 111/52 91 Venturi Mask 14.0 55 05/20/17 20:04 42 18 Non-Rebreather 15.0 100 05/20/17 20:00 Venturi Mask 14.0 55 05/20/17 20:00 93 Venturi Mask 14.0 55 05/20/17 20:00 97.7 38 19 111/52 91 Venturi Mask 14.0 55 05/20/17 20:00 36 2/1/18 19:00 40 17 102/57 91 Venturi Mask 55 05/20/17 18:00 43 17 86/47 90 Venturi Mask 55 05/20/17 17:00 56 16 81/52 93 Venturi Mask 55 05/20/17 16:00 61 05/20/17 16:00 98.1 60 18 75/45 95 Venturi Mask 55 05/20/17 15:00 69 17 85/49 91 Venturi Mask 55 05/20/17 14:00 70 18 80/40 93 Venturi Mask 55 05/20/17 12:00 60 05/20/17 12:00 97.9 58 18 73/39 93 Venturi Mask 55 05/20/17 11:00 74 18 79/35 93 Non-Rebreather 15.0 Intake and Output 05/20/17 05/21/17 19:00 07:00 Intake Total 200 ml 100 ml Output Total 0 ml Balance 200 ml 100 ml Intake Oral 200 ml 100 ml Output Urine Total 0 ml # Bowel Movements 2 1 Laboratory Tests 05/21/17 04:35: White Blood Count 5.5, Red Blood Count 3.76L, Hemoglobin 12.2, Hematocrit 36.7L , Mean Corpuscular Volume 98, Mean Corpuscular Hemoglobin 32.3H, Mean Corpuscular Hemoglobin Concent 33.2, Red Cell Distribution Width 14.0, Platelet Count 156, Mean Platelet Volume 9.6, Neutrophils (%) (Auto) 77.0H, Lymphocytes ( %) (Auto) 18.6L, Monocytes (%) (Auto) 3.6, Eosinophils (%) (Auto) 0.1, Basophils (%) (Auto) 0.7, Sodium Level 135L, Potassium Level 4.8, Chloride Level 95L, Carbon Dioxide Level 23, Anion Gap 17H, Blood Urea Nitrogen 76H, Creatinine 16.7H, Estimat Glomerular Filtration Rate 2.7, Glucose Level 101, Uric Acid 8.5H, Calcium Level 9.5, Phosphorus Level 6.3H, Magnesium Level 1.6L, Total Bilirubin 0.4, Aspartate Amino Transf (AST/SGOT) 11L, Alanine Aminotransferase (ALT/SGPT) 24, Alkaline Phosphatase 258H, C-Reactive Protein, Quantitative 14.4H, Pro-B-Type Natriuretic Peptide 1729H, Total Protein 8.3H, Albumin 3.3L, Globulin 5.0, Albumin/Globulin Ratio 0.7L Height (Feet): 5 Height (Inches): 6.00 Weight (Pounds): 204 Cardiovascular: normal rate Respiratory/Chest: lungs clear Extremities: trace edema YULISSA MAYS May 21, 2017 10:56
--- NOTE | 2017-05-21 12:08 | Pulmonolgy Critical Care Note ---
Critical Care - Asmt/Plan Problems: (1) Acute respiratory failure with hypoxemia (2) ESRD (end stage renal disease) on dialysis (3) Hypoparathyroidism Respiratory: monitor respiratory rate, CXR Renal: check electrolytes Gastrointestinal: continue feedings/current rate Hematologic: monitor H/H, transfuse if hgb<8.5 Neurologic: PRN Morphine, keep patient comfortable Prophylaxis: Protonix, Heparin Disposition: transfer to Discussed with: nurses, consultants Critical Care - Objective Last 24 Hour Vital Signs Date Time Temp Pulse Resp B/P (MAP) Pulse Ox O2 Delivery O2 Flow Rate FiO2 05/21/17 09:00 56 19 100/56 92 Nasal Cannula 4.0 05/21/17 08:00 98.2 50 19 97/63 91 Nasal Cannula 4.0 05/21/17 08:00 52 05/21/17 07:00 54 17 85/56 92 Nasal Cannula 4.0 05/21/17 06:59 66 18 Nasal Cannula 5.0 05/21/17 06:59 97 Nasal Cannula 5.0 05/21/17 06:59 Nasal Cannula 5.0 05/21/17 06:00 59 17 83/49 91 Nasal Cannula 4.0 05/21/17 05:00 54 20 83/49 90 Nasal Cannula 4.0 05/21/17 04:00 98.0 43 20 94/57 95 Venturi Mask 14.0 55 05/21/17 04:00 36 05/21/17 03:00 63 20 94/57 94 Venturi Mask 14.0 55 05/21/17 02:00 43 21 94/49 94 Venturi Mask 14.0 55 05/21/17 01:00 42 20 94/49 92 Venturi Mask 14.0 55 05/21/17 00:00 61 05/21/17 00:00 97.9 51 19 92/58 92 Venturi Mask 14.0 55 05/20/17 23:00 62 19 89/48 91 Venturi Mask 14.0 55 05/20/17 22:00 72 19 66/52 91 Venturi Mask 14.0 55 05/20/17 21:00 52 15 111/52 91 Venturi Mask 14.0 55 05/20/17 20:04 42 18 Non-Rebreather 15.0 100 05/20/17 20:00 Venturi Mask 14.0 55 05/20/17 20:00 93 Venturi Mask 14.0 55 05/20/17 20:00 97.7 38 19 111/52 91 Venturi Mask 14.0 55 05/20/17 20:00 36 05/20/17 19:00 40 17 102/57 91 Venturi Mask 55 05/20/17 18:00 43 17 86/47 90 Venturi Mask 55 05/20/17 17:00 56 16 81/52 93 Venturi Mask 55 05/20/17 16:00 61 05/20/17 16:00 98.1 60 18 75/45 95 Venturi Mask 55 05/20/17 15:00 69 17 85/49 91 Venturi Mask 55 05/20/17 14:00 70 18 80/40 93 Venturi Mask 55 Status: awake Condition: critical HEENT: atraumatic Neck: full ROM Lungs: clear Heart: HR/BP stable, HR/BP unstable Abdomen: soft, feeding tube Extremities: no C/C/E Critical Care - Subjective ROS Limited/Unobtainable: No Condition: critical - 3 EKG Rhythm: Sinus Rhythm FI02: 55 Sputum Amount: None I&O: Intake and Output 05/20/17 05/21/17 19:00 07:00 Intake Total 200 ml 100 ml Output Total 0 ml Balance 200 ml 100 ml Intake Oral 200 ml 100 ml Output Urine Total 0 ml # Bowel Movements 2 1 CXR: clear, v/q scan was useless. Labs: Laboratory Tests Test 05/21/17 04:35 White Blood Count 5.5 K/UL (4.8-10.8) Red Blood Count 3.76 M/UL (4.20-5.40) L Hemoglobin 12.2 G/DL (12.0-16.0) Hematocrit 36.7 % (37.0-47.0) L Mean Corpuscular Volume 98 FL (80-99) Mean Corpuscular Hemoglobin 32.3 PG (27.0-31.0) H Mean Corpuscular Hemoglobin Concent 33.2 G/DL (32.0-36.0) Red Cell Distribution Width 14.0 % (11.6-14.8) Platelet Count 156 K/UL (150-450) Mean Platelet Volume 9.6 FL (6.5-10.1) Neutrophils (%) (Auto) 77.0 % (45.0-75.0) H Lymphocytes (%) (Auto) 18.6 % (20.0-45.0) L Monocytes (%) (Auto) 3.6 % (1.0-10.0) Eosinophils (%) (Auto) 0.1 % (0.0-3.0) Basophils (%) (Auto) 0.7 % (0.0-2.0) Sodium Level 135 MMOL/L (136-145) L Potassium Level 4.8 MMOL/L (3.5-5.1) Chloride Level 95 MMOL/L (98-107) L Carbon Dioxide Level 23 MMOL/L (21-32) Anion Gap 17 mmol/L (5-15) H Blood Urea Nitrogen 76 mg/dL (7-18) H Creatinine 16.7 MG/DL (0.55-1.30) H Estimat Glomerular Filtration Rate 2.7 mL/min (>60) Glucose Level 101 MG/DL (74-106) Uric Acid 8.5 MG/DL (2.6-7.2) H Calcium Level 9.5 MG/DL (8.5-10.1) Phosphorus Level 6.3 MG/DL (2.5-4.9) H Magnesium Level 1.6 MG/DL (1.8-2.4) L Total Bilirubin 0.4 MG/DL (0.2-1.0) Aspartate Amino Transf (AST/SGOT) 11 U/L (15-37) L Alanine Aminotransferase (ALT/SGPT) 24 U/L (12-78) Alkaline Phosphatase 258 U/L (46-116) H C-Reactive Protein, Quantitative 14.4 mg/dL (0.00-0.90) H Pro-B-Type Natriuretic Peptide 1729 pg/mL (0-125) H Total Protein 8.3 G/DL (6.4-8.2) H Albumin 3.3 G/DL (3.4-5.0) L Globulin 5.0 g/dL Albumin/Globulin Ratio 0.7 (1.0-2.7) L GABI DENNEY May 21, 2017 12:08
--- NOTE | 2017-05-21 12:55 | Progress Note ---
DATE: 05/19/2017 SUBJECTIVE: The patient is in intensive care unit. Calm in bed. Still has episodes of anxiety. Cooperative and calm. MENTAL STATUS EXAMINATION: The patient is alert and oriented to times self, place, and situation she is in. Mood is neutral. Affect is constricted, congruent with mood. Thought process is concrete. Thought content, no suicidal or homicidal ideation. ASSESSMENT: 1. Anxiety disorder. 2. Insomnia. PLAN: Continue the Ambien. The patient is reluctant to any other anxiolytics. Edwin Brown M.D. DR: FER JOB#: [id number] CC:
--- NOTE | 2017-05-21 12:56 | Progress Note ---
DATE: 05/20/2017 SUBJECTIVE: The patient was found in bed, calm, cooperative. Mood is depressed. Affect is constricted. Congruent with mood. Thought process is concrete. Thought content, no suicidal or homicidal ideation. Still has medication seeking behavior. MENTAL STATUS EXAMINATION: The patient is alert and oriented x3. Mood is depressed. Affect is constricted. Congruent with mood. Thought process is concrete. Thought content, no suicidal or homicidal ideations. ASSESSMENT: Depression and anxiety. PLAN: We will continue the current medication. Edwin Brown M.D. DR: [place] JOB#: [id number] CC:
--- NOTE | 2017-05-21 14:17 | Diagnostic Imaging Report ---
Indication: Dyspnea Comparison: May 20, 2017 A single view chest radiograph was obtained. Findings: There is a hazy right basilar opacity which is likely a pleural effusion. There is a lucency projected over the heart which is possibly a hiatal hernia. Surgical clips noted in the axillary regions bilaterally. There is a catheter projected over the lower part of the cervical spine. This may be a long permacatheter dialysis catheter within the IVC. The tip is projected over the right atrium. IMPRESSION: Suspect a small right pleural effusion. Suspected mild basal atelectasis. No evidence of pulmonary edema. Other incidental findings as above
--- NOTE | 2017-05-21 17:31 | Cardiology Progress Note ---
Assessment/Plan Assessment/Plan 1. Low blood pressure readings/hypotension asymptomatic 2. End-stage renal disease, on hemodialysis. 3. Shortness of breath. 4. Hypoxemia 5. sinus ade no pericardial effusion normal cortisol no bacteremia arterial duplex showed no upper ext arterial stenosis her bp remains low but she remain asymtomatic seem chronic trop neg had v/q intermeidiate probability contrast allergy ? pretreatment with steroid for ctpa?? Subjective Cardiovascular: Denies: chest pain, lightheadedness, syncope Respiratory: Denies: orthopnea, shortness of breath Gastrointestinal/Abdominal: Denies: abdomen distended Subjective walked to br no symptoms Objective Last 24 Hour Vital Signs Date Time Temp Pulse Resp B/P (MAP) Pulse Ox O2 Delivery O2 Flow Rate FiO2 05/21/17 12:00 62 05/21/17 12:00 98.0 65 21 82/56 92 Nasal Cannula 4.0 05/21/17 11:00 62 21 95/56 92 Nasal Cannula 4.0 05/21/17 10:00 66 19 83/52 92 Nasal Cannula 4.0 05/21/17 09:00 56 19 100/56 92 Nasal Cannula 4.0 05/21/17 08:00 98.2 50 19 97/63 91 Nasal Cannula 4.0 05/21/17 08:00 52 05/21/17 07:00 54 17 85/56 92 Nasal Cannula 4.0 05/21/17 06:59 66 18 Nasal Cannula 5.0 05/21/17 06:59 97 Nasal Cannula 5.0 05/21/17 06:59 Nasal Cannula 5.0 05/21/17 06:00 59 17 83/49 91 Nasal Cannula 4.0 05/21/17 05:00 54 20 83/49 90 Nasal Cannula 4.0 05/21/17 04:00 98.0 43 20 94/57 95 Venturi Mask 14.0 55 05/21/17 04:00 36 05/21/17 03:00 63 20 94/57 94 Venturi Mask 14.0 55 05/21/17 02:00 43 21 94/49 94 Venturi Mask 14.0 55 05/21/17 01:00 42 20 94/49 92 Venturi Mask 14.0 55 05/21/17 00:00 61 05/21/17 00:00 97.9 51 19 92/58 92 Venturi Mask 14.0 55 05/20/17 23:00 62 19 89/48 91 Venturi Mask 14.0 55 05/20/17 22:00 72 19 66/52 91 Venturi Mask 14.0 55 05/20/17 21:00 52 15 111/52 91 Venturi Mask 14.0 55 05/20/17 20:04 42 18 Non-Rebreather 15.0 100 05/20/17 20:00 Venturi Mask 14.0 55 05/20/17 20:00 93 Venturi Mask 14.0 55 05/20/17 20:00 97.7 38 19 111/52 91 Venturi Mask 14.0 55 05/20/17 20:00 36 05/20/17 19:00 40 17 102/57 91 Venturi Mask 55 05/20/17 18:00 43 17 86/47 90 Venturi Mask 55 General Appearance: no apparent distress, alert Cardiovascular: normal rate Respiratory/Chest: lungs clear Abdomen: normal bowel sounds, non tender, soft Extremities: no swelling Intake and Output 05/20/17 05/21/17 19:00 07:00 Intake Total 200 ml 100 ml Output Total 0 ml Balance 200 ml 100 ml Intake Oral 200 ml 100 ml Output Urine Total 0 ml # Bowel Movements 2 1 Laboratory Tests Test 05/21/17 04:35 White Blood Count 5.5 K/UL (4.8-10.8) Red Blood Count 3.76 M/UL (4.20-5.40) L Hemoglobin 12.2 G/DL (12.0-16.0) Hematocrit 36.7 % (37.0-47.0) L Mean Corpuscular Volume 98 FL (80-99) Mean Corpuscular Hemoglobin 32.3 PG (27.0-31.0) H Mean Corpuscular Hemoglobin Concent 33.2 G/DL (32.0-36.0) Red Cell Distribution Width 14.0 % (11.6-14.8) Platelet Count 156 K/UL (150-450) Mean Platelet Volume 9.6 FL (6.5-10.1) Neutrophils (%) (Auto) 77.0 % (45.0-75.0) H Lymphocytes (%) (Auto) 18.6 % (20.0-45.0) L Monocytes (%) (Auto) 3.6 % (1.0-10.0) Eosinophils (%) (Auto) 0.1 % (0.0-3.0) Basophils (%) (Auto) 0.7 % (0.0-2.0) Sodium Level 135 MMOL/L (136-145) L Potassium Level 4.8 MMOL/L (3.5-5.1) Chloride Level 95 MMOL/L (98-107) L Carbon Dioxide Level 23 MMOL/L (21-32) Anion Gap 17 mmol/L (5-15) H Blood Urea Nitrogen 76 mg/dL (7-18) H Creatinine 16.7 MG/DL (0.55-1.30) H Estimat Glomerular Filtration Rate 2.7 mL/min (>60) Glucose Level 101 MG/DL (74-106) Uric Acid 8.5 MG/DL (2.6-7.2) H Calcium Level 9.5 MG/DL (8.5-10.1) Phosphorus Level 6.3 MG/DL (2.5-4.9) H Magnesium Level 1.6 MG/DL (1.8-2.4) L Total Bilirubin 0.4 MG/DL (0.2-1.0) Aspartate Amino Transf (AST/SGOT) 11 U/L (15-37) L Alanine Aminotransferase (ALT/SGPT) 24 U/L (12-78) Alkaline Phosphatase 258 U/L (46-116) H C-Reactive Protein, Quantitative 14.4 mg/dL (0.00-0.90) H Pro-B-Type Natriuretic Peptide 1729 pg/mL (0-125) H Total Protein 8.3 G/DL (6.4-8.2) H Albumin 3.3 G/DL (3.4-5.0) L Globulin 5.0 g/dL Albumin/Globulin Ratio 0.7 (1.0-2.7) L RUMA RAMÍREZ May 21, 2017 17:30
--- NOTE | 2017-05-21 18:51 | Internal Med Progress Note ---
Subjective Date of Service: May 21, 2017 Physician Name Shavonne Ugalde Attending Physician Ash Henley MD Current Medications Medications (Trade) Dose Ordered Sig/Marcos Route PRN Reason Start Time Stop Time Status Last Admin Dose Admin Acetaminophen (Tylenol) 650 mg Q4H PRN ORAL pain/headache 05/18/17 04:00 06/15/17 11:59 05/19/17 04:47 Chlorhexidine Gluconate (Nivia-Hex 2%) 1 applic DAILY@1999 TOPIC 05/19/17 20:00 06/18/17 19:59 05/20/17 20:02 Cinacalcet (Sensipar) 30 mg 3XW ORAL 05/19/17 09:00 06/16/17 08:59 05/21/17 08:24 Dextrose (Dextrose 50%) STAT PRN IV Hypoglycemia 05/18/17 19:45 06/14/17 19:44 Diphenhydramine HCl (Benadryl) 25 mg Q6H PRN IVP Itching 05/18/17 05:30 06/16/17 11:29 Docusate Sodium (Colace) 100 mg THREE TIMES A DAY ORAL 05/18/17 09:00 06/15/17 12:59 05/21/17 18:00 Heparin Sodium (Porcine) (Heparin 5000 units/ml) 5,000 units EVERY 12 HOURS SUBQ 05/18/17 09:00 06/14/17 20:59 05/21/17 08:26 Heparin Sodium (Porcine) (Heparin Sod 1000 units/ml 10ml) 2,000 unit THREE TIMES A WEEK PRN IV FOR DIALYSIS USE 05/18/17 02:30 05/23/17 02:29 Hydrocortisone (Solu-CORTEF) 100 mg EVERY 8 HOURS IV 05/20/17 14:00 06/19/17 13:59 05/21/17 14:12 Midodrine (Pro-Amatine) 10 mg THREE TIMES A DAY ORAL 05/18/17 09:00 06/16/17 12:59 05/21/17 18:40 Ondansetron HCl (Zofran) 4 mg Q6H PRN IVP Nausea & Vomiting 05/18/17 07:45 06/14/17 19:44 05/20/17 02:04 Pantoprazole (Protonix) 40 mg EVERY 12 HOURS ORAL 05/18/17 09:00 06/14/17 20:59 05/21/17 08:25 Polyethylene Glycol (Miralax) 17 gm DAILYPRN PRN ORAL Constipation 05/18/17 19:45 06/14/17 19:44 Promethazine HCl/ Codeine (Phenergan with Codeine) 5 ml Q4H PRN ORAL For Cough 05/18/17 05:00 06/15/17 08:59 Sevelamer Carbonate (Renvela) 1,600 mg THREE TIMES A DAY ORAL 05/18/17 09:00 06/15/17 08:59 05/21/17 18:41 Temazepam (Restoril) 15 mg HSPRN PRN ORAL Insomnia 05/18/17 21:00 05/22/17 20:59 Zolpidem Tartrate (Ambien) 5 mg BEDTIME PRN ORAL INSOMNIA 05/18/17 21:00 05/22/17 19:29 Allergies: Coded Allergies: CEFAZOLIN (Verified Allergy, Unknown, 10/02/10) CIPROFLOXACIN (Verified Allergy, Unknown, 10/02/10) GENTAMICIN (Verified Allergy, Unknown, 10/02/10) LEVOFLOXACIN (Verified Allergy, Unknown, 10/02/10) PENICILLINS (Verified Allergy, Unknown, ITCH, 10/02/10) Uncoded Allergies: CONTRAST MEDIA (Adverse Reaction, Mild, MILD ITCHING AFTER CONTRAST MEDIA, 04/30/17) ROS Limited/Unobtainable: No Constitutional: Reports: no symptoms HEENT: Reports: no symptoms Cardiovascular: Reports: no symptoms Respiratory: Reports: shortness of breath Gastrointestinal/Abdominal: Reports: no symptoms Genitourinary: Reports: no symptoms Neurologic/Psychiatric: Reports: no symptoms Subjective 52 YO F admitted with shortness of breath. ICU. Tolerating nasal canula. Hypotensive-on pressors. Cover for Int John Henley. Objective Last Vital Signs Date Time Temp Pulse Resp B/P (MAP) Pulse Ox O2 Delivery O2 Flow Rate FiO2 05/21/17 18:00 56 21 69/44 92 Nasal Cannula 4.0 05/21/17 16:00 98.1 05/21/17 04:00 55 Laboratory Tests Test 05/21/17 04:35 White Blood Count 5.5 K/UL (4.8-10.8) Red Blood Count 3.76 M/UL (4.20-5.40) L Hemoglobin 12.2 G/DL (12.0-16.0) Hematocrit 36.7 % (37.0-47.0) L Mean Corpuscular Volume 98 FL (80-99) Mean Corpuscular Hemoglobin 32.3 PG (27.0-31.0) H Mean Corpuscular Hemoglobin Concent 33.2 G/DL (32.0-36.0) Red Cell Distribution Width 14.0 % (11.6-14.8) Platelet Count 156 K/UL (150-450) Mean Platelet Volume 9.6 FL (6.5-10.1) Neutrophils (%) (Auto) 77.0 % (45.0-75.0) H Lymphocytes (%) (Auto) 18.6 % (20.0-45.0) L Monocytes (%) (Auto) 3.6 % (1.0-10.0) Eosinophils (%) (Auto) 0.1 % (0.0-3.0) Basophils (%) (Auto) 0.7 % (0.0-2.0) Sodium Level 135 MMOL/L (136-145) L Potassium Level 4.8 MMOL/L (3.5-5.1) Chloride Level 95 MMOL/L (98-107) L Carbon Dioxide Level 23 MMOL/L (21-32) Anion Gap 17 mmol/L (5-15) H Blood Urea Nitrogen 76 mg/dL (7-18) H Creatinine 16.7 MG/DL (0.55-1.30) H Estimat Glomerular Filtration Rate 2.7 mL/min (>60) Glucose Level 101 MG/DL (74-106) Uric Acid 8.5 MG/DL (2.6-7.2) H Calcium Level 9.5 MG/DL (8.5-10.1) Phosphorus Level 6.3 MG/DL (2.5-4.9) H Magnesium Level 1.6 MG/DL (1.8-2.4) L Total Bilirubin 0.4 MG/DL (0.2-1.0) Aspartate Amino Transf (AST/SGOT) 11 U/L (15-37) L Alanine Aminotransferase (ALT/SGPT) 24 U/L (12-78) Alkaline Phosphatase 258 U/L (46-116) H C-Reactive Protein, Quantitative 14.4 mg/dL (0.00-0.90) H Pro-B-Type Natriuretic Peptide 1729 pg/mL (0-125) H Total Protein 8.3 G/DL (6.4-8.2) H Albumin 3.3 G/DL (3.4-5.0) L Globulin 5.0 g/dL Albumin/Globulin Ratio 0.7 (1.0-2.7) L Intake and Output 05/20/17 05/21/17 19:00 07:00 Intake Total 200 ml 100 ml Output Total 0 ml Balance 200 ml 100 ml Intake Oral 200 ml 100 ml Output Urine Total 0 ml # Bowel Movements 2 1 Objective General Appearance: WD/WN, no apparent distress, alert EENT: PERRL/EOMI, normal ENT inspection, TMs normal Neck: non-tender, normal alignment, supple, normal inspection Cardiovascular: normal peripheral pulses, normal rate, regular rhythm, no gallop/murmur, no JVD Respiratory/Chest: Venturi mask; chest wall non-tender, no respiratory distress , no accessory muscle use, crackles/rales, rhonchi - bilaterally, expiratory wheezing Abdomen: normal bowel sounds, non tender, soft, no organomegaly, no mass Extremities: normal range of motion, non-tender 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 Continue levophed per cardiology (2) Shortness of breath Assessment & Plan: Tolerating nasal canula. See pulmonary note. (3) ESRD (end stage renal disease) on dialysis Assessment & Plan: Hemodialysis today 05/21/17 per nephrology- See nephrology note. (4) Acute respiratory failure with hypoxemia Assessment & Plan: currently on venturi mask-see pulmonary note Status: not improved SHAVONNE UGALDE May 21, 2017 18:51
[2017-05-21] MEDS: Dyna-Hex 2% Top Sol 2oz TOPIC SCH (21:00)
[2017-05-22] VITALS: BP 89/47
[2017-05-22] MEDS ORDERED: Promethazine/Codeine 5ml UD ORAL PRN (01:00)
--- NOTE | 2017-05-22 01:45 | Progress Note ---
DATE: 05/21/2017 SUBJECTIVE: The patient is calm in bed, complains of pain, also anxious, has pain seeking behavior. MENTAL STATUS EXAMINATION: The patient is alert and oriented times self, place, and situation. Mood is depressed. Affect is constricted, congruent with mood. Thought process is concrete. Thought content, no suicidal or homicidal ideation. ASSESSMENT: 1. Depression. 2. Pain medication dependence. PLAN: 1. We will continue the Cymbalta. 2. Provide the patient with reality orientation and supportive therapy. Edwin Brown M.D. DR: SASHA JOB#: [id number] CC:
[2017-05-22] MEDS: DiphenhydrAMINE 50mg/ml Inj IVP PRN (02:11)
[2017-05-22 04:00] VITALS: BP 87/49
[2017-05-22] MEDS ORDERED: Hydrocortisone 100mg Inj IV SCH (06:00)
[2017-05-22 08:00] VITALS: BP 86/54
[2017-05-22 08:13] LABS: ALANINE AMINOTRANSFERASE 19 U/L (12-78); ALBUMIN 3.1 G/DL (3.4-5.0); ALBUMIN/GLOBULIN RATIO 0.7 (1.0-2.7); ALKALINE PHOSPHATASE 223 U/L (46-116); ANION GAP 18 mmol/L (5-15); ASPARTATE AMINO TRANSFERASE 13 U/L (15-37); BILIRUBIN,TOTAL 0.3 MG/DL (0.2-1.0); BLOOD UREA NITROGEN 58 mg/dL (7-18); CALCIUM 9.1 MG/DL (8.5-10.1); CARBON DIOXIDE 25 MMOL/L (21-32); CHLORIDE 95 MMOL/L (98-107); PHOSPHORUS 4.7 MG/DL (2.5-4.9); POTASSIUM 3.8 MMOL/L (3.5-5.1); SODIUM 137 MMOL/L (136-145)
[2017-05-22 08:30] LABS: BASOPHILS % (AUTO) 0.8 % (0.0-2.0); EOSINOPHILS % (AUTO) 0.7 % (0.0-3.0); HEMATOCRIT 35.5 % (37.0-47.0); HEMOGLOBIN 11.6 G/DL (12.0-16.0); LYMPHOCYTES % (AUTO) 34.4 % (20.0-45.0); MEAN CORPUSCULAR VOLUME 96 FL (80-99); MONOCYTES % (AUTO) 5.9 % (1.0-10.0); NEUTROPHILS % (AUTO) 58.2 % (45.0-75.0); PLATELET COUNT 161 K/UL (150-450); RED BLOOD COUNT 3.71 M/UL (4.20-5.40); RED CELL DISTRIBUTION WIDTH 13.7 % (11.6-14.8); WHITE BLOOD COUNT 5.2 K/UL (4.8-10.8)
[2017-05-22] MEDS: Heparin 5000 units/ml inj SUBQ SCH ×2 (09:00→20:44)
--- NOTE | 2017-05-22 09:13 | Pulmonology Progress Note ---
Assessment/Plan Assessment/Plan ASSESSMENT Acute hypoxemic RF -resolved Hypotension, asymptomatic sinus bradycardia ESRD, on HD Acute bronchitis asthma depression with anxiety VQ with Intermed probability of PE PLAN OF CARE tele O2 titrate , HHN with bronchodilators fup with CXR last CXR no acute CP pathology a/tussive prn Cardio follows ECHO with pEF 55% and RVP of 32, no pericardial effusion all trop negative VQ scan with intermediate probability of PE venous duplex BUE negative will do stat CT angio no bacteremia BP support with Midodrine, remains asymptomatic with low BP and SB, probably chronic steroids and taper Nephro follows HD as per nephro monitor renal parameters, lytes, correct as needed DVT GI prophylaxis case discussed and evaluated by supervising physician Subjective Allergies: Coded Allergies: CEFAZOLIN (Verified Allergy, Unknown, 10/02/10) CIPROFLOXACIN (Verified Allergy, Unknown, 10/02/10) GENTAMICIN (Verified Allergy, Unknown, 10/02/10) LEVOFLOXACIN (Verified Allergy, Unknown, 10/02/10) PENICILLINS (Verified Allergy, Unknown, ITCH, 10/02/10) Uncoded Allergies: CONTRAST MEDIA (Adverse Reaction, Mild, MILD ITCHING AFTER CONTRAST MEDIA, 04/30/17) Subjective transferred to tele occasional chest ventura, non SOB pulse ox stable Objective Last 24 Hour Vital Signs Date Time Temp Pulse Resp B/P (MAP) Pulse Ox O2 Delivery O2 Flow Rate FiO2 05/22/17 08:00 97.0 57 21 86/54 92 Room Air 05/22/17 04:00 57 05/22/17 04:00 97.6 66 19 87/49 97 Nasal Cannula 2.0 05/22/17 00:00 57 05/22/17 00:00 97.6 80 19 89/47 97 Nasal Cannula 2.0 05/21/17 22:10 97.6 60 19 80/47 97 Nasal Cannula 2.0 05/21/17 21:34 Nasal Cannula 4.0 36 05/21/17 21:33 80 20 Nasal Cannula 4.0 36 05/21/17 21:33 96 Nasal Cannula 4.0 36 05/21/17 21:00 60 21 67/40 92 Nasal Cannula 4.0 05/21/17 20:00 56 05/21/17 20:00 97.6 80 20 59/38 Nasal Cannula 4.0 05/21/17 19:23 97.6 56 20 86/48 92 Nasal Cannula 4.0 55 40 05/21/17 18:30 97.6 40 20 86/48 Nasal Cannula 4.0 05/21/17 18:00 56 21 69/44 92 Nasal Cannula 4.0 05/21/17 17:30 Nasal Cannula 4.0 05/21/17 17:00 49 18 86/48 90 Nasal Cannula 4.0 05/21/17 16:00 98.1 46 20 80/46 90 Nasal Cannula 4.0 05/21/17 16:00 49 05/21/17 15:00 58 20 84/50 90 Nasal Cannula 4.0 05/21/17 14:00 65 21 64/44 90 Nasal Cannula 4.0 05/21/17 13:00 65 21 78/48 90 Nasal Cannula 4.0 05/21/17 12:00 62 05/21/17 12:00 98.0 65 21 82/56 92 Nasal Cannula 4.0 05/21/17 11:00 62 21 95/56 92 Nasal Cannula 4.0 05/21/17 10:00 66 19 83/52 92 Nasal Cannula 4.0 Intake and Output 05/21/17 05/22/17 19:00 07:00 Intake Total 720 ml 150 ml Output Total 300 ml Balance 720 ml -150 ml Intake Oral 720 ml 150 ml Output Urine Total 300 ml General Appearance: no acute distress HEENT: normocephalic, atraumatic, anicteric, mucous membranes moist Respiratory/Chest: lungs clear, no respiratory distress, no accessory muscle use Cardiovascular: regular rhythm, bradycardia - SB on tele , other - R groin Fernando-cath , intact Abdomen: normal bowel sounds, soft, non tender - obese Extremities: no edema Neurologic/Psychiatric: no motor/sensory deficits, alert, oriented x 3, responsive Musculoskeletal: normal muscle bulk Laboratory Tests 05/22/17 05:52: White Blood Count 5.2, Red Blood Count 3.71L, Hemoglobin 11.6L, Hematocrit 35.5L , Mean Corpuscular Volume 96, Mean Corpuscular Hemoglobin 31.3H, Mean Corpuscular Hemoglobin Concent 32.7, Red Cell Distribution Width 13.7, Platelet Count 161, Mean Platelet Volume 9.3, Neutrophils (%) (Auto) 58.2, Lymphocytes (% ) (Auto) 34.4, Monocytes (%) (Auto) 5.9, Eosinophils (%) (Auto) 0.7, Basophils ( %) (Auto) 0.8, Sodium Level 137, Potassium Level 3.8, Chloride Level 95L, Carbon Dioxide Level 25, Anion Gap 18H, Blood Urea Nitrogen 58H, Creatinine 14.0H, Estimat Glomerular Filtration Rate 3.3, Glucose Level 95, Calcium Level 9.1, Phosphorus Level 4.7, Magnesium Level 1.6L, Total Bilirubin 0.3, Aspartate Amino Transf (AST/SGOT) 13L, Alanine Aminotransferase (ALT/SGPT) 19, Alkaline Phosphatase 223H, Total Protein 7.8, Albumin 3.1L, Globulin 4.7, Albumin/ Globulin Ratio 0.7L Current Medications Medications (Trade) Dose Ordered Sig/Marcos Route PRN Reason Start Time Stop Time Status Last Admin Dose Admin Acetaminophen (Tylenol) 650 mg Q4H PRN ORAL pain/headache 05/22/17 00:00 06/15/17 11:59 Chlorhexidine Gluconate (Nivia-Hex 2%) 1 applic DAILY@2000 TOPIC 05/22/17 20:00 06/18/17 19:59 Cinacalcet (Sensipar) 30 mg 3XW ORAL 05/24/17 09:00 06/16/17 08:59 Dextrose (Dextrose 50%) STAT PRN IV Hypoglycemia 05/22/17 19:45 06/14/17 19:44 Diphenhydramine HCl (Benadryl) 25 mg Q6H PRN IVP Itching 05/21/17 23:30 06/16/17 11:29 05/22/17 02:11 Docusate Sodium (Colace) 100 mg THREE TIMES A DAY ORAL 05/22/17 09:00 06/15/17 12:59 Heparin Sodium (Porcine) (Heparin 5000 units/ml) 5,000 units EVERY 12 HOURS SUBQ 05/22/17 09:00 06/14/17 20:59 Heparin Sodium (Porcine) (Heparin Sod 1000 units/ml 10ml) 2,000 unit THREE TIMES A WEEK PRN IV FOR DIALYSIS USE 05/24/17 09:00 05/25/17 02:29 Hydrocortisone (Solu-CORTEF) 100 mg EVERY 8 HOURS IV 05/22/17 06:00 06/19/17 13:59 05/22/17 06:30 Midodrine (Pro-Amatine) 10 mg THREE TIMES A DAY ORAL 05/22/17 09:00 06/16/17 12:59 Ondansetron HCl (Zofran) 4 mg Q6H PRN IVP Nausea & Vomiting 05/22/17 01:45 06/14/17 19:44 Pantoprazole (Protonix) 40 mg EVERY 12 HOURS ORAL 05/22/17 09:00 06/14/17 20:59 Polyethylene Glycol (Miralax) 17 gm DAILYPRN PRN ORAL Constipation 05/22/17 19:45 06/14/17 19:44 Promethazine HCl/ Codeine (Phenergan with Codeine) 5 ml Q4H PRN ORAL For Cough 05/22/17 01:00 06/15/17 08:59 Sevelamer Carbonate (Renvela) 1,600 mg THREE TIMES A DAY ORAL 05/22/17 09:00 06/15/17 08:59 Temazepam (Restoril) 15 mg HSPRN PRN ORAL Insomnia 05/22/17 21:00 05/23/17 20:59 Zolpidem Tartrate (Ambien) 5 mg BEDTIME PRN ORAL INSOMNIA 05/22/17 21:00 05/23/17 19:29 Fernando [facility]ingsaint [facility] centerJohanne Frey NP May 22, 2017 09:13
[2017-05-22] MEDS: Docusate 100mg cap ORAL SCH ×3 (09:33→17:45)
[2017-05-22] MEDS: Midodrine 10mg tab ORAL SCH ×3 (09:34→17:45)
[2017-05-22 12:00] VITALS: BP 80/41
--- NOTE | 2017-05-22 12:11 | Internal Med Progress Note ---
Subjective Date of Service: May 22, 2017 Physician Name Shavonne Ugalde Attending Physician Ash Henley MD Current Medications Medications (Trade) Dose Ordered Sig/Marcos Route PRN Reason Start Time Stop Time Status Last Admin Dose Admin Acetaminophen (Tylenol) 650 mg Q4H PRN ORAL pain/headache 05/22/17 00:00 06/15/17 11:59 Chlorhexidine Gluconate (Nivia-Hex 2%) 1 applic DAILY@2000 TOPIC 05/22/17 20:00 06/18/17 19:59 Cinacalcet (Sensipar) 30 mg 3XW ORAL 05/24/17 09:00 06/16/17 08:59 Dextrose (Dextrose 50%) STAT PRN IV Hypoglycemia 05/22/17 19:45 06/14/17 19:44 Diphenhydramine HCl (Benadryl) 25 mg Q6H PRN IVP Itching 05/21/17 23:30 06/16/17 11:29 05/22/17 02:11 Docusate Sodium (Colace) 100 mg THREE TIMES A DAY ORAL 05/22/17 09:00 06/15/17 12:59 05/22/17 09:33 Heparin Sodium (Porcine) (Heparin 5000 units/ml) 5,000 units EVERY 12 HOURS SUBQ 05/22/17 09:00 06/14/17 20:59 Heparin Sodium (Porcine) (Heparin Sod 1000 units/ml 10ml) 2,000 unit THREE TIMES A WEEK PRN IV FOR DIALYSIS USE 05/24/17 09:00 05/25/17 02:29 Hydrocortisone (Solu-CORTEF) 100 mg Q12HR IV 05/22/17 21:00 06/19/17 13:59 Midodrine (Pro-Amatine) 10 mg THREE TIMES A DAY ORAL 05/22/17 09:00 06/16/17 12:59 05/22/17 09:34 Ondansetron HCl (Zofran) 4 mg Q6H PRN IVP Nausea & Vomiting 05/22/17 01:45 06/14/17 19:44 Pantoprazole (Protonix) 40 mg EVERY 12 HOURS ORAL 05/22/17 09:00 06/14/17 20:59 05/22/17 09:34 Polyethylene Glycol (Miralax) 17 gm DAILYPRN PRN ORAL Constipation 05/22/17 19:45 06/14/17 19:44 Promethazine HCl/ Codeine (Phenergan with Codeine) 5 ml Q4H PRN ORAL For Cough 05/22/17 01:00 06/15/17 08:59 Sevelamer Carbonate (Renvela) 1,600 mg THREE TIMES A DAY ORAL 05/22/17 09:00 06/15/17 08:59 05/22/17 09:34 Temazepam (Restoril) 15 mg HSPRN PRN ORAL Insomnia 05/22/17 21:00 05/23/17 20:59 Zolpidem Tartrate (Ambien) 5 mg BEDTIME PRN ORAL INSOMNIA 05/22/17 21:00 05/23/17 19:29 Allergies: Coded Allergies: CEFAZOLIN (Verified Allergy, Unknown, 10/02/10) CIPROFLOXACIN (Verified Allergy, Unknown, 10/02/10) GENTAMICIN (Verified Allergy, Unknown, 10/02/10) LEVOFLOXACIN (Verified Allergy, Unknown, 10/02/10) PENICILLINS (Verified Allergy, Unknown, ITCH, 10/02/10) Uncoded Allergies: CONTRAST MEDIA (Adverse Reaction, Mild, MILD ITCHING AFTER CONTRAST MEDIA, 04/30/17) ROS Limited/Unobtainable: No Constitutional: Reports: no symptoms HEENT: Reports: no symptoms Cardiovascular: Reports: no symptoms Respiratory: Reports: shortness of breath Gastrointestinal/Abdominal: Reports: no symptoms Genitourinary: Reports: no symptoms Neurologic/Psychiatric: Reports: no symptoms Subjective 52 YO F admitted with shortness of breath. Trabsfered to Tele earlier. Tolerating nasal canula. Hypotensive-on pressors. Cover for Int Med Dr Henley. Objective Last Vital Signs Date Time Temp Pulse Resp B/P (MAP) Pulse Ox O2 Delivery O2 Flow Rate FiO2 05/22/17 08:00 97.0 57 21 86/54 92 Room Air 05/22/17 04:00 2.0 05/21/17 21:34 36 Laboratory Tests Test 05/22/17 05:52 White Blood Count 5.2 K/UL (4.8-10.8) Red Blood Count 3.71 M/UL (4.20-5.40) L Hemoglobin 11.6 G/DL (12.0-16.0) L Hematocrit 35.5 % (37.0-47.0) L Mean Corpuscular Volume 96 FL (80-99) Mean Corpuscular Hemoglobin 31.3 PG (27.0-31.0) H Mean Corpuscular Hemoglobin Concent 32.7 G/DL (32.0-36.0) Red Cell Distribution Width 13.7 % (11.6-14.8) Platelet Count 161 K/UL (150-450) Mean Platelet Volume 9.3 FL (6.5-10.1) Neutrophils (%) (Auto) 58.2 % (45.0-75.0) Lymphocytes (%) (Auto) 34.4 % (20.0-45.0) Monocytes (%) (Auto) 5.9 % (1.0-10.0) Eosinophils (%) (Auto) 0.7 % (0.0-3.0) Basophils (%) (Auto) 0.8 % (0.0-2.0) Sodium Level 137 MMOL/L (136-145) Potassium Level 3.8 MMOL/L (3.5-5.1) Chloride Level 95 MMOL/L (98-107) L Carbon Dioxide Level 25 MMOL/L (21-32) Anion Gap 18 mmol/L (5-15) H Blood Urea Nitrogen 58 mg/dL (7-18) H Creatinine 14.0 MG/DL (0.55-1.30) H Estimat Glomerular Filtration Rate 3.3 mL/min (>60) Glucose Level 95 MG/DL (74-106) Calcium Level 9.1 MG/DL (8.5-10.1) Phosphorus Level 4.7 MG/DL (2.5-4.9) Magnesium Level 1.6 MG/DL (1.8-2.4) L Total Bilirubin 0.3 MG/DL (0.2-1.0) Aspartate Amino Transf (AST/SGOT) 13 U/L (15-37) L Alanine Aminotransferase (ALT/SGPT) 19 U/L (12-78) Alkaline Phosphatase 223 U/L (46-116) H Total Protein 7.8 G/DL (6.4-8.2) Albumin 3.1 G/DL (3.4-5.0) L Globulin 4.7 g/dL Albumin/Globulin Ratio 0.7 (1.0-2.7) L Intake and Output 2/2/18 2/3/18 19:00 07:00 Intake Total 720 ml 150 ml Output Total 300 ml Balance 720 ml -150 ml Intake Oral 720 ml 150 ml Output Urine Total 300 ml Objective General Appearance: WD/WN, no apparent distress, alert EENT: PERRL/EOMI, normal ENT inspection, TMs normal Neck: non-tender, normal alignment, supple, normal inspection Cardiovascular: normal peripheral pulses, normal rate, regular rhythm, no gallop/murmur, no JVD Respiratory/Chest: Venturi mask; chest wall non-tender, no respiratory distress , no accessory muscle use, crackles/rales, rhonchi - bilaterally, expiratory wheezing Abdomen: normal bowel sounds, non tender, soft, no organomegaly, no mass Extremities: normal range of motion, non-tender 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 (2) Shortness of breath Assessment & Plan: Tolerating nasal canula and room air. See pulmonary note. (3) ESRD (end stage renal disease) on dialysis Assessment & Plan: Last Hemodialysis 05/21/17 per nephrology- See nephrology note. (4) Acute respiratory failure with hypoxemia Assessment & Plan: currently on venturi mask-see pulmonary note Status: progressing SHAVONNE UGALDE May 22, 2017 12:11
--- NOTE | 2017-05-22 12:53 | Nephrology Progress Note ---
Assessment/Plan Problem List: (1) ESRD (end stage renal disease) on dialysis (2) Acute respiratory failure with hypoxemia (3) HTN (hypertension) (4) Acute bronchitis (5) Dyspnea Plan HD Wednesday or sooner Bronchodilators follow labs Discussed with Johanne King NP CT angio Subjective Subjective out of ICU Objective Objective Last 24 Hour Vital Signs Date Time Temp Pulse Resp B/P (MAP) Pulse Ox O2 Delivery O2 Flow Rate FiO2 05/22/17 12:00 97.5 55 20 80/41 96 Room Air 05/22/17 08:00 97.0 57 21 86/54 92 Room Air 05/22/17 08:00 49 05/22/17 04:00 57 05/22/17 04:00 97.6 66 19 87/49 97 Nasal Cannula 2.0 05/22/17 00:00 57 05/22/17 00:00 97.6 80 19 89/47 97 Nasal Cannula 2.0 05/21/17 22:10 97.6 60 19 80/47 97 Nasal Cannula 2.0 05/21/17 21:34 Nasal Cannula 4.0 36 05/21/17 21:33 80 20 Nasal Cannula 4.0 36 05/21/17 21:33 96 Nasal Cannula 4.0 36 05/21/17 21:00 60 21 67/40 92 Nasal Cannula 4.0 05/21/17 20:00 56 05/21/17 20:00 97.6 80 20 59/38 Nasal Cannula 4.0 05/21/17 19:23 97.6 56 20 86/48 92 Nasal Cannula 4.0 55 40 05/21/17 18:30 97.6 40 20 86/48 Nasal Cannula 4.0 05/21/17 18:00 56 21 69/44 92 Nasal Cannula 4.0 05/21/17 17:30 Nasal Cannula 4.0 05/21/17 17:00 49 18 86/48 90 Nasal Cannula 4.0 05/21/17 16:00 98.1 46 20 80/46 90 Nasal Cannula 4.0 05/21/17 16:00 49 05/21/17 15:00 58 20 84/50 90 Nasal Cannula 4.0 05/21/17 14:00 65 21 64/44 90 Nasal Cannula 4.0 05/21/17 13:00 65 21 78/48 90 Nasal Cannula 4.0 Intake and Output 05/21/17 05/22/17 19:00 07:00 Intake Total 720 ml 150 ml Output Total 300 ml Balance 720 ml -150 ml Intake Oral 720 ml 150 ml Output Urine Total 300 ml Laboratory Tests 05/22/17 05:52: White Blood Count 5.2, Red Blood Count 3.71L, Hemoglobin 11.6L, Hematocrit 35.5L , Mean Corpuscular Volume 96, Mean Corpuscular Hemoglobin 31.3H, Mean Corpuscular Hemoglobin Concent 32.7, Red Cell Distribution Width 13.7, Platelet Count 161, Mean Platelet Volume 9.3, Neutrophils (%) (Auto) 58.2, Lymphocytes (% ) (Auto) 34.4, Monocytes (%) (Auto) 5.9, Eosinophils (%) (Auto) 0.7, Basophils ( %) (Auto) 0.8, Sodium Level 137, Potassium Level 3.8, Chloride Level 95L, Carbon Dioxide Level 25, Anion Gap 18H, Blood Urea Nitrogen 58H, Creatinine 14.0H, Estimat Glomerular Filtration Rate 3.3, Glucose Level 95, Calcium Level 9.1, Phosphorus Level 4.7, Magnesium Level 1.6L, Total Bilirubin 0.3, Aspartate Amino Transf (AST/SGOT) 13L, Alanine Aminotransferase (ALT/SGPT) 19, Alkaline Phosphatase 223H, Total Protein 7.8, Albumin 3.1L, Globulin 4.7, Albumin/ Globulin Ratio 0.7L Height (Feet): 5 Height (Inches): 6.00 Weight (Pounds): 204 Cardiovascular: normal rate Respiratory/Chest: lungs clear Extremities: moderate edema YULISSA MAYS May 22, 2017 12:53
[2017-05-22] MEDS ORDERED: LORazepam Inj 2mg/ml 1ml IV SCH (13:00)
[2017-05-22 16:00] VITALS: BP 80/43
--- NOTE | 2017-05-22 16:22 | Cardiology Progress Note ---
Assessment/Plan Problem List: (1) Dyspnea (2) ESRD (end stage renal disease) on dialysis (3) Hypotension Status: stable, unchanged Status Narrative Mrs. Fuller continues w/ hypotension SBP 80s, without symptoms- Does not appear volume depleted. Uncertain if due to vascular disease She was also hypoxic on adm and continues to c/o dyspnea. v/q scan intermediate probability. Assessment/Plan Continue midodrine - currently on 10mg tid.. ? flurinef. Consider chest CTA to r/o PE, with premedication for contrast allergy. Subjective ROS Limited/Unobtainable: No Subjective Cardiology for Dr Jay. Pt c/o dyspnea. No chest pain or dizziness. Objective Last 24 Hour Vital Signs Date Time Temp Pulse Resp B/P (MAP) Pulse Ox O2 Delivery O2 Flow Rate FiO2 05/22/17 12:00 64 16 Nasal Cannula 5.0 05/22/17 12:00 94 Nasal Cannula 5.0 05/22/17 12:00 54 05/22/17 12:00 Nasal Cannula 5.0 05/22/17 12:00 97.5 55 20 80/41 96 Room Air 05/22/17 08:00 97.0 57 21 86/54 92 Room Air 05/22/17 08:00 49 05/22/17 04:00 57 05/22/17 04:00 97.6 66 19 87/49 97 Nasal Cannula 2.0 05/22/17 00:00 57 05/22/17 00:00 97.6 80 19 89/47 97 Nasal Cannula 2.0 05/21/17 22:10 97.6 60 19 80/47 97 Nasal Cannula 2.0 05/21/17 21:34 Nasal Cannula 4.0 36 05/21/17 21:33 80 20 Nasal Cannula 4.0 36 05/21/17 21:33 96 Nasal Cannula 4.0 36 05/21/17 21:00 60 21 67/40 92 Nasal Cannula 4.0 05/21/17 20:00 56 05/21/17 20:00 97.6 80 20 59/38 Nasal Cannula 4.0 18 19:23 97.6 56 20 86/48 92 Nasal Cannula 4.0 55 40 05/21/17 18:30 97.6 40 20 86/48 Nasal Cannula 4.0 05/21/17 18:00 56 21 69/44 92 Nasal Cannula 4.0 05/21/17 17:30 Nasal Cannula 4.0 05/21/17 17:00 49 18 86/48 90 Nasal Cannula 4.0 General Appearance: WD/WN, no apparent distress EENT: PERRL/EOMI Neck: non-tender, supple, no JVD Rhythm: SB Cardiovascular: normal rate, regular rhythm, systolic murmur Respiratory/Chest: lungs clear Abdomen: non tender, soft, no mass Extremities: non-tender, no swelling Intake and Output 05/21/17 05/22/17 19:00 07:00 Intake Total 720 ml 150 ml Output Total 300 ml Balance 720 ml -150 ml Intake Oral 720 ml 150 ml Output Urine Total 300 ml Laboratory Tests Test 05/22/17 05:52 White Blood Count 5.2 K/UL (4.8-10.8) Red Blood Count 3.71 M/UL (4.20-5.40) L Hemoglobin 11.6 G/DL (12.0-16.0) L Hematocrit 35.5 % (37.0-47.0) L Mean Corpuscular Volume 96 FL (80-99) Mean Corpuscular Hemoglobin 31.3 PG (27.0-31.0) H Mean Corpuscular Hemoglobin Concent 32.7 G/DL (32.0-36.0) Red Cell Distribution Width 13.7 % (11.6-14.8) Platelet Count 161 K/UL (150-450) Mean Platelet Volume 9.3 FL (6.5-10.1) Neutrophils (%) (Auto) 58.2 % (45.0-75.0) Lymphocytes (%) (Auto) 34.4 % (20.0-45.0) Monocytes (%) (Auto) 5.9 % (1.0-10.0) Eosinophils (%) (Auto) 0.7 % (0.0-3.0) Basophils (%) (Auto) 0.8 % (0.0-2.0) Sodium Level 137 MMOL/L (136-145) Potassium Level 3.8 MMOL/L (3.5-5.1) Chloride Level 95 MMOL/L (98-107) L Carbon Dioxide Level 25 MMOL/L (21-32) Anion Gap 18 mmol/L (5-15) H Blood Urea Nitrogen 58 mg/dL (7-18) H Creatinine 14.0 MG/DL (0.55-1.30) H Estimat Glomerular Filtration Rate 3.3 mL/min (>60) Glucose Level 95 MG/DL (74-106) Calcium Level 9.1 MG/DL (8.5-10.1) Phosphorus Level 4.7 MG/DL (2.5-4.9) Magnesium Level 1.6 MG/DL (1.8-2.4) L Total Bilirubin 0.3 MG/DL (0.2-1.0) Aspartate Amino Transf (AST/SGOT) 13 U/L (15-37) L Alanine Aminotransferase (ALT/SGPT) 19 U/L (12-78) Alkaline Phosphatase 223 U/L (46-116) H Total Protein 7.8 G/DL (6.4-8.2) Albumin 3.1 G/DL (3.4-5.0) L Globulin 4.7 g/dL Albumin/Globulin Ratio 0.7 (1.0-2.7) LINDSAY MOYER May 22, 2017 16:22
[2017-05-22] MEDS ORDERED: NS 500ML ONE (16:32)
[2017-05-22] MEDS ORDERED: Miralax 17gm pkt ORAL PRN (19:45)
[2017-05-22 20:00] VITALS: BP 80/50
[2017-05-22] MEDS: Dyna-Hex 2% Top Sol 2oz TOPIC SCH (20:43)
[2017-05-22] MEDS: Hydrocortisone 100mg Inj IV SCH (20:43)
[2017-05-22] MEDS ORDERED: Zolpidem 5mg tab ORAL PRN (21:00)
[2017-05-23] VITALS: BP 85/46
[2017-05-23 04:00] VITALS: BP 114/74
[2017-05-23 07:26] LABS: BASOPHILS % (AUTO) 0.9 % (0.0-2.0); EOSINOPHILS % (AUTO) 1.6 % (0.0-3.0); HEMATOCRIT 35.6 % (37.0-47.0); HEMOGLOBIN 11.7 G/DL (12.0-16.0); LYMPHOCYTES % (AUTO) 37.2 % (20.0-45.0); MEAN CORPUSCULAR VOLUME 96 FL (80-99); NEUTROPHILS % (AUTO) 52.2 % (45.0-75.0); PLATELET COUNT 171 K/UL (150-450); RED CELL DISTRIBUTION WIDTH 14.3 % (11.6-14.8); WHITE BLOOD COUNT 5.9 K/UL (4.8-10.8)
[2017-05-23 07:35] LABS: ANION GAP 13 mmol/L (5-15); BLOOD UREA NITROGEN 73 mg/dL (7-18); CALCIUM 9.1 MG/DL (8.5-10.1); CARBON DIOXIDE 27 MMOL/L (21-32); CHLORIDE 95 MMOL/L (98-107); CREATININE 15.5 MG/DL (0.55-1.30); POTASSIUM 4.2 MMOL/L (3.5-5.1); SODIUM 134 MMOL/L (136-145)
[2017-05-23 08:00] VITALS: BP_SYST 79; BP_SYST 83; BP_DIAS 42; BP_DIAS 80
[2017-05-23] MEDS: Docusate 100mg cap ORAL SCH ×3 (08:31→17:34)
[2017-05-23] MEDS: Midodrine 10mg tab ORAL SCH ×3 (08:31→17:35)
[2017-05-23] MEDS: Hydrocortisone 100mg Inj IV SCH ×2 (08:31→21:19)
[2017-05-23] MEDS: Heparin 5000 units/ml inj SUBQ SCH ×2 (08:32→21:00)
--- NOTE | 2017-05-23 09:18 | Diagnostic Imaging Report ---
ndication: Chest pain Technique: IV administration nonionic contrast. Spiral acquisitions obtained from the lung bases to the lung apices. Multiplanar and 3-D reconstructions were generated. Total dose length product 749.29 mGycm. CTDIvol(s) 22.41 mGy. Dose reduction achieved using automated exposure control Comparison: 04/30/2017 Findings: Opacification of the the pulmonary arteries is suboptimal, and only large central pulmonary emboli can't be excluded with any confidence. Again demonstrated is evidence of extensive central venoocclusive disease, with extensive mediastinal, paraspinous, and chest wall collaterals. Very unusual collaterals are seen in the pulmonary chente The thoracic aorta is well-opacified, and there is no evidence of thoracic aortic aneurysm or dissection. Normal caliber pulmonary artery. No evidence of right ventricular dilatation. Interval development of a [id number] right pleural effusion. There is trace left pleural fluid as well. There is groundglass opacity at the right lung base, probably representing compressive atelectatic changes. There may be mild interstitial congestion. There is a very large hiatal hernia, contains approximately half of the stomach. Some calcifications are seen in the periphery of the thyroid. No mediastinal or hilar mass or adenopathy. There is a groin approach dialysis catheter tip seen in the inferior vena cava, tip at the orifice. Extensive calcifications are seen in both breasts. No axillary or chest wall mass or adenopathy demonstrated. The bones are unremarkable. Bilateral breast calcifications surgical clips and vascular stents are seen in the bilateral axillae The included upper abdominal anatomy is unremarkable. Impression: Poor quality opacification of the pulmonary arteries. Probably related to the presence of extensive central venoocclusive disease. No large vessel central pulmonary and was demonstrated, but peripheral pulmonary emboli cannot be excluded with any confidence. No evidence of right heart strain Interim development of a moderate size right pleural effusion. There is resultant increased compressive atelectasis of the right lung. Extensive central venoocclusive disease, resulting in extensive and somewhat unusual mediastinal and chest wall collaterals. Mild interstitial congestion Very large hiatal hernia, containing approximately half of the stomach. This agrees with the preliminary interpretation provided overnight by [facility] teleradiology service. The CT scanner at [facility] is accredited by the [employer] and the scans are performed using protocols designed to limit radiation exposure to as low as reasonably achievable to attain images of sufficient resolution adequate for diagnostic evaluation.
--- NOTE | 2017-05-23 10:24 | Pulmonology Progress Note ---
Assessment/Plan Assessment/Plan ASSESSMENT Acute hypoxemic RF -resolved Hypotension, asymptomatic sinus bradycardia ESRD, on HD Acute bronchitis asthma depression with anxiety VQ with Intermed probability of PE PLAN OF CARE tele O2 titrate , HHN with bronchodilators fup with CXR in am last CXR no acute CP pathology a/tussive prn Cardio follows ECHO with pEF 55% and RVP of 32, no pericardial effusion all trop negative VQ scan with intermediate probability of PE venous duplex BUE negative CT angio no PE, + very large HH no bacteremia BP support with Midodrine, remains asymptomatic with low BP and SB, probably chronic steroids and taper Nephro follows HD as per nephro monitor renal parameters, lytes, correct as needed DVT GI prophylaxis dc plan for tomorrow after HD case discussed and evaluated by supervising physician Subjective Allergies: Coded Allergies: CEFAZOLIN (Verified Allergy, Unknown, 10/02/10) CIPROFLOXACIN (Verified Allergy, Unknown, 10/02/10) GENTAMICIN (Verified Allergy, Unknown, 10/02/10) LEVOFLOXACIN (Verified Allergy, Unknown, 10/02/10) PENICILLINS (Verified Allergy, Unknown, ITCH, 10/02/10) Uncoded Allergies: CONTRAST MEDIA (Adverse Reaction, Mild, MILD ITCHING AFTER CONTRAST MEDIA, 04/30/17) Subjective occasional chest pain, non SOB pulse ox stable no signs of resp distress CTA negative Objective Last 24 Hour Vital Signs Date Time Temp Pulse Resp B/P (MAP) Pulse Ox O2 Delivery O2 Flow Rate FiO2 05/23/17 08:00 97.9 61 20 83/80 93 Room Air 05/23/17 08:00 59 05/23/17 07:49 Nasal Cannula 5.0 40 05/23/17 07:48 94 Nasal Cannula 5.0 40 05/23/17 07:47 62 18 Nasal Cannula 5.0 40 05/23/17 04:00 97.0 59 19 114/74 97 Nasal Cannula 2.0 05/23/17 04:00 54 05/23/17 00:00 96.8 55 18 85/46 90 Room Air 05/23/17 00:00 46 05/22/17 20:00 55 05/22/17 20:00 96.1 56 19 80/50 93 Room Air 05/22/17 18:35 55 18 Nasal Cannula 5.0 94 05/22/17 18:35 94 Nasal Cannula 5.0 40 05/22/17 18:35 Nasal Cannula 5.0 40 05/22/17 16:00 41 05/22/17 16:00 97.5 46 19 80/43 94 Room Air 05/22/17 12:00 64 16 Nasal Cannula 5.0 05/22/17 12:00 94 Nasal Cannula 5.0 05/22/17 12:00 54 05/22/17 12:00 Nasal Cannula 5.0 05/22/17 12:00 97.5 55 20 80/41 96 Room Air Intake and Output 05/22/17 05/23/17 19:00 07:00 Intake Total 500 ml Output Total 300 ml Balance 500 ml -300 ml Intake Oral 500 ml Output Urine Total 300 ml Objective General Appearance: no acute distress HEENT: normocephalic, atraumatic, anicteric, mucous membranes moist Respiratory/Chest: lungs clear, no respiratory distress, no accessory muscle use Cardiovascular: regular rhythm, SR on tele , R groin Fernando-cath , intact Abdomen: normal bowel sounds, soft, non tender - obese Extremities: no edema Neurologic/Psychiatric: no motor/sensory deficits, alert, oriented x 3, responsive Musculoskeletal: normal muscle bulk Laboratory Tests 05/23/17 05:05: White Blood Count 5.9, Red Blood Count 3.70L, Hemoglobin 11.7L, Hematocrit 35.6L , Mean Corpuscular Volume 96, Mean Corpuscular Hemoglobin 31.7H, Mean Corpuscular Hemoglobin Concent 33.0, Red Cell Distribution Width 14.3, Platelet Count 171, Mean Platelet Volume 8.9, Neutrophils (%) (Auto) 52.2, Lymphocytes (% ) (Auto) 37.2, Monocytes (%) (Auto) 8.0, Eosinophils (%) (Auto) 1.6, Basophils ( %) (Auto) 0.9, Sodium Level 134L, Potassium Level 4.2, Chloride Level 95L, Carbon Dioxide Level 27, Anion Gap 13, Blood Urea Nitrogen 73H, Creatinine 15.5H , Estimat Glomerular Filtration Rate 2.9, Glucose Level 75, Calcium Level 9.1 Current Medications Medications (Trade) Dose Ordered Sig/Marcos Route PRN Reason Start Time Stop Time Status Last Admin Dose Admin Acetaminophen (Tylenol) 650 mg Q4H PRN ORAL pain/headache 05/22/17 00:00 06/15/17 11:59 05/23/17 05:15 Chlorhexidine Gluconate (Nivia-Hex 2%) 1 applic DAILY@2000 TOPIC 05/22/17 20:00 06/18/17 19:59 05/22/17 20:43 Cinacalcet (Sensipar) 30 mg 3XW ORAL 05/24/17 09:00 06/16/17 08:59 Dextrose (Dextrose 50%) STAT PRN IV Hypoglycemia 05/22/17 19:45 06/14/17 19:44 Diphenhydramine HCl (Benadryl) 25 mg Q6H PRN IVP Itching 05/21/17 23:30 06/16/17 11:29 05/22/17 02:11 Docusate Sodium (Colace) 100 mg THREE TIMES A DAY ORAL 05/22/17 09:00 06/15/17 12:59 05/23/17 08:31 Heparin Sodium (Porcine) (Heparin 5000 units/ml) 5,000 units EVERY 12 HOURS SUBQ 05/22/17 09:00 06/14/17 20:59 05/22/17 20:44 Heparin Sodium (Porcine) (Heparin Sod 1000 units/ml 10ml) 2,000 unit THREE TIMES A WEEK PRN IV FOR DIALYSIS USE 05/24/17 09:00 05/25/17 02:29 Hydrocortisone (Solu-CORTEF) 100 mg Q12HR IV 05/22/17 21:00 06/19/17 13:59 05/23/17 08:31 Midodrine (Pro-Amatine) 10 mg THREE TIMES A DAY ORAL 05/22/17 09:00 06/16/17 12:59 05/23/17 08:31 Ondansetron HCl (Zofran) 4 mg Q6H PRN IVP Nausea & Vomiting 05/22/17 01:45 06/14/17 19:44 Pantoprazole (Protonix) 40 mg EVERY 12 HOURS ORAL 05/22/17 09:00 06/14/17 20:59 05/23/17 08:30 Polyethylene Glycol (Miralax) 17 gm DAILYPRN PRN ORAL Constipation 05/22/17 19:45 06/14/17 19:44 Promethazine HCl/ Codeine (Phenergan with Codeine) 5 ml Q4H PRN ORAL For Cough 05/22/17 01:00 06/15/17 08:59 05/23/17 09:56 Sevelamer Carbonate (Renvela) 1,600 mg THREE TIMES A DAY ORAL 05/22/17 09:00 06/15/17 08:59 05/23/17 08:31 Temazepam (Restoril) 15 mg HSPRN PRN ORAL Insomnia 05/22/17 21:00 05/23/17 20:59 Zolpidem Tartrate (Ambien) 5 mg BEDTIME PRN ORAL INSOMNIA 05/22/17 21:00 05/23/17 19:29 Fernando ([facility])Johanne NP May 23, 2017 10:24
--- NOTE | 2017-05-23 11:38 | Nephrology Progress Note ---
Assessment/Plan Problem List: (1) ESRD (end stage renal disease) on dialysis (2) Acute respiratory failure with hypoxemia (3) HTN (hypertension) (4) Acute bronchitis (5) Dyspnea Plan HD tomorrow Bronchodilators follow labs Discussed with Johanne King NP Subjective Subjective In NAD Objective Objective Last 24 Hour Vital Signs Date Time Temp Pulse Resp B/P (MAP) Pulse Ox O2 Delivery O2 Flow Rate FiO2 05/23/17 08:00 97.9 61 20 83/80 93 Room Air 05/23/17 08:00 59 05/23/17 07:49 Nasal Cannula 5.0 40 05/23/17 07:48 94 Nasal Cannula 5.0 40 05/23/17 07:47 62 18 Nasal Cannula 5.0 40 05/23/17 04:00 97.0 59 19 114/74 97 Nasal Cannula 2.0 05/23/17 04:00 54 05/23/17 00:00 96.8 55 18 85/46 90 Room Air 05/23/17 00:00 46 05/22/17 20:00 55 05/22/17 20:00 96.1 56 19 80/50 93 Room Air 05/22/17 18:35 55 18 Nasal Cannula 5.0 94 05/22/17 18:35 94 Nasal Cannula 5.0 40 05/22/17 18:35 Nasal Cannula 5.0 40 05/22/17 16:00 41 05/22/17 16:00 97.5 46 19 80/43 94 Room Air 05/22/17 12:00 64 16 Nasal Cannula 5.0 05/22/17 12:00 94 Nasal Cannula 5.0 05/22/17 12:00 54 05/22/17 12:00 Nasal Cannula 5.0 05/22/17 12:00 97.5 55 20 80/41 96 Room Air Intake and Output 05/22/17 05/23/17 19:00 07:00 Intake Total 500 ml Output Total 300 ml Balance 500 ml -300 ml Intake Oral 500 ml Output Urine Total 300 ml Laboratory Tests 05/23/17 05:05: White Blood Count 5.9, Red Blood Count 3.70L, Hemoglobin 11.7L, Hematocrit 35.6L , Mean Corpuscular Volume 96, Mean Corpuscular Hemoglobin 31.7H, Mean Corpuscular Hemoglobin Concent 33.0, Red Cell Distribution Width 14.3, Platelet Count 171, Mean Platelet Volume 8.9, Neutrophils (%) (Auto) 52.2, Lymphocytes (% ) (Auto) 37.2, Monocytes (%) (Auto) 8.0, Eosinophils (%) (Auto) 1.6, Basophils ( %) (Auto) 0.9, Sodium Level 134L, Potassium Level 4.2, Chloride Level 95L, Carbon Dioxide Level 27, Anion Gap 13, Blood Urea Nitrogen 73H, Creatinine 15.5H , Estimat Glomerular Filtration Rate 2.9, Glucose Level 75, Calcium Level 9.1 Height (Feet): 5 Height (Inches): 6.00 Weight (Pounds): 209 Cardiovascular: normal rate Respiratory/Chest: lungs clear Extremities: moderate edema YULISSA MAYS May 23, 2017 11:38
[2017-05-23 12:00] VITALS: BP 70/38
--- NOTE | 2017-05-23 13:49 | Internal Med Progress Note ---
Subjective Date of Service: May 23, 2017 Physician Name Shavonne Ugalde Attending Physician Ash Henley MD Current Medications Medications (Trade) Dose Ordered Sig/Marcos Route PRN Reason Start Time Stop Time Status Last Admin Dose Admin Acetaminophen (Tylenol) 650 mg Q4H PRN ORAL pain/headache 05/22/17 00:00 06/15/17 11:59 05/23/17 05:15 Chlorhexidine Gluconate (Nivia-Hex 2%) 1 applic DAILY@2000 TOPIC 05/22/17 20:00 06/18/17 19:59 05/22/17 20:43 Cinacalcet (Sensipar) 30 mg 3XW ORAL 05/24/17 09:00 06/16/17 08:59 Dextrose (Dextrose 50%) STAT PRN IV Hypoglycemia 05/22/17 19:45 06/14/17 19:44 Diphenhydramine HCl (Benadryl) 25 mg Q6H PRN IVP Itching 05/21/17 23:30 06/16/17 11:29 05/22/17 02:11 Docusate Sodium (Colace) 100 mg THREE TIMES A DAY ORAL 05/22/17 09:00 06/15/17 12:59 05/23/17 08:31 Heparin Sodium (Porcine) (Heparin 5000 units/ml) 5,000 units EVERY 12 HOURS SUBQ 05/22/17 09:00 06/14/17 20:59 05/22/17 20:44 Heparin Sodium (Porcine) (Heparin Sod 1000 units/ml 10ml) 2,000 unit ONCE ONCE IV 05/24/17 12:00 05/24/17 12:01 Heparin Sodium (Porcine) (Heparin Sod 1000 units/ml 10ml) 2,000 unit THREE TIMES A WEEK PRN IV FOR DIALYSIS USE 05/24/17 09:00 05/25/17 02:29 Hydrocortisone (Solu-CORTEF) 100 mg Q12HR IV 05/22/17 21:00 06/19/17 13:59 05/23/17 08:31 Midodrine (Pro-Amatine) 10 mg THREE TIMES A DAY ORAL 05/22/17 09:00 06/16/17 12:59 05/23/17 08:31 Ondansetron HCl (Zofran) 4 mg Q6H PRN IVP Nausea & Vomiting 05/22/17 01:45 06/14/17 19:44 Pantoprazole (Protonix) 40 mg EVERY 12 HOURS ORAL 05/22/17 09:00 06/14/17 20:59 05/23/17 08:30 Polyethylene Glycol (Miralax) 17 gm DAILYPRN PRN ORAL Constipation 05/22/17 19:45 06/14/17 19:44 Promethazine HCl/ Codeine (Phenergan with Codeine) 5 ml Q4H PRN ORAL For Cough 05/22/17 01:00 06/15/17 08:59 05/23/17 09:56 Sevelamer Carbonate (Renvela) 1,600 mg THREE TIMES A DAY ORAL 05/22/17 09:00 06/15/17 08:59 05/23/17 08:31 Sodium Chloride 1,000 ml @ 500 mls/hr Q2H PRN IVLG sbp<90 during hd 05/24/17 11:11 06/23/17 11:10 Temazepam (Restoril) 15 mg HSPRN PRN ORAL Insomnia 05/22/17 21:00 05/23/17 20:59 Zolpidem Tartrate (Ambien) 5 mg BEDTIME PRN ORAL INSOMNIA 05/22/17 21:00 05/23/17 19:29 Allergies: Coded Allergies: CEFAZOLIN (Verified Allergy, Unknown, 10/02/10) CIPROFLOXACIN (Verified Allergy, Unknown, 10/02/10) GENTAMICIN (Verified Allergy, Unknown, 10/02/10) LEVOFLOXACIN (Verified Allergy, Unknown, 10/02/10) PENICILLINS (Verified Allergy, Unknown, ITCH, 10/02/10) Uncoded Allergies: CONTRAST MEDIA (Adverse Reaction, Mild, MILD ITCHING AFTER CONTRAST MEDIA, 04/30/17) ROS Limited/Unobtainable: No Constitutional: Reports: no symptoms HEENT: Reports: no symptoms Cardiovascular: Reports: no symptoms Respiratory: Reports: shortness of breath Gastrointestinal/Abdominal: Reports: no symptoms Genitourinary: Reports: no symptoms Neurologic/Psychiatric: Reports: no symptoms Subjective 52 YO F admitted with shortness of breath. Tolerating nasal canula. Cover for Int John Henley. Objective Last Vital Signs Date Time Temp Pulse Resp B/P (MAP) Pulse Ox O2 Delivery O2 Flow Rate FiO2 05/23/17 08:00 97.9 61 20 83/80 93 Room Air 05/23/17 07:49 5.0 40 Laboratory Tests Test 05/23/17 05:05 White Blood Count 5.9 K/UL (4.8-10.8) Red Blood Count 3.70 M/UL (4.20-5.40) L Hemoglobin 11.7 G/DL (12.0-16.0) L Hematocrit 35.6 % (37.0-47.0) L Mean Corpuscular Volume 96 FL (80-99) Mean Corpuscular Hemoglobin 31.7 PG (27.0-31.0) H Mean Corpuscular Hemoglobin Concent 33.0 G/DL (32.0-36.0) Red Cell Distribution Width 14.3 % (11.6-14.8) Platelet Count 171 K/UL (150-450) Mean Platelet Volume 8.9 FL (6.5-10.1) Neutrophils (%) (Auto) 52.2 % (45.0-75.0) Lymphocytes (%) (Auto) 37.2 % (20.0-45.0) Monocytes (%) (Auto) 8.0 % (1.0-10.0) Eosinophils (%) (Auto) 1.6 % (0.0-3.0) Basophils (%) (Auto) 0.9 % (0.0-2.0) Sodium Level 134 MMOL/L (136-145) L Potassium Level 4.2 MMOL/L (3.5-5.1) Chloride Level 95 MMOL/L (98-107) L Carbon Dioxide Level 27 MMOL/L (21-32) Anion Gap 13 mmol/L (5-15) Blood Urea Nitrogen 73 mg/dL (7-18) H Creatinine 15.5 MG/DL (0.55-1.30) H Estimat Glomerular Filtration Rate 2.9 mL/min (>60) Glucose Level 75 MG/DL (74-106) Calcium Level 9.1 MG/DL (8.5-10.1) Intake and Output 05/22/17 05/23/17 19:00 07:00 Intake Total 500 ml Output Total 300 ml Balance 500 ml -300 ml Intake Oral 500 ml Output Urine Total 300 ml Objective General Appearance: WD/WN, no apparent distress, alert EENT: PERRL/EOMI, normal ENT inspection, TMs normal Neck: non-tender, normal alignment, supple, normal inspection Cardiovascular: normal peripheral pulses, normal rate, regular rhythm, no gallop/murmur, no JVD Respiratory/Chest: Venturi mask; chest wall non-tender, no respiratory distress , no accessory muscle use, crackles/rales, rhonchi - bilaterally, expiratory wheezing Abdomen: normal bowel sounds, non tender, soft, no organomegaly, no mass Extremities: normal range of motion, non-tender 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 (2) Shortness of breath Assessment & Plan: CT angio=neg for pulm embolism. Tolerating nasal canula and room air. See pulmonary note. (3) ESRD (end stage renal disease) on dialysis Assessment & Plan: Next Hemodialysis 05/24/17 per nephrology- See nephrology note. (4) Acute respiratory failure with hypoxemia Assessment & Plan: currently on nasal canula-see pulmonary note (5) Pleural effusion on right (6) Hiatal hernia Status: progressing Assessment/Plan Discharge planning SHAVONNE UGALDE May 23, 2017 13:49
[2017-05-23 16:00] VITALS: BP 78/43
--- NOTE | 2017-05-23 17:18 | Cardiology Progress Note ---
Assessment/Plan Problem List: (1) Dyspnea (2) ESRD (end stage renal disease) on dialysis (3) Hypotension Status: stable, unchanged Status Narrative Mrs. Fuller continues w/ hypotension SBP 80s, without symptoms- Does not appear volume depleted. Uncertain if due to vascular disease She was also hypoxic on adm, but now w/ o2sats 90s on room air. v/q scan intermediate probability. Assessment/Plan Continue midodrine - currently on 10mg tid.. ? add flurinef. Dialysis planned for tomorrow per Nephrology. Subjective ROS Limited/Unobtainable: No Subjective Cardiology for Dr Jay. No c/o. Ambulating in room Objective Last 24 Hour Vital Signs Date Time Temp Pulse Resp B/P (MAP) Pulse Ox O2 Delivery O2 Flow Rate FiO2 05/23/17 16:00 97.2 58 20 78/43 100 Room Air 05/23/17 12:00 54 05/23/17 12:00 97.2 60 20 70/38 92 Room Air 05/23/17 08:00 97.9 61 20 83/80 93 Room Air 05/23/17 08:00 59 05/23/17 07:49 Nasal Cannula 5.0 40 05/23/17 07:48 94 Nasal Cannula 5.0 40 05/23/17 07:47 62 18 Nasal Cannula 5.0 40 05/23/17 04:00 97.0 59 19 114/74 97 Nasal Cannula 2.0 05/23/17 04:00 54 05/23/17 00:00 96.8 55 18 85/46 90 Room Air 05/23/17 00:00 46 05/22/17 20:00 55 05/22/17 20:00 96.1 56 19 80/50 93 Room Air 05/22/17 18:35 55 18 Nasal Cannula 5.0 94 05/22/17 18:35 94 Nasal Cannula 5.0 40 05/22/17 18:35 Nasal Cannula 5.0 40 General Appearance: WD/WN, no apparent distress, obese EENT: PERRL/EOMI Neck: non-tender, no JVD Rhythm: NSR Cardiovascular: normal rate, regular rhythm, no gallop/murmur Respiratory/Chest: lungs clear - clear anteriorly Abdomen: non tender, soft Extremities: other - R thigh HD catheter. Intake and Output 05/22/17 05/23/17 19:00 07:00 Intake Total 500 ml Output Total 300 ml Balance 500 ml -300 ml Intake Oral 500 ml Output Urine Total 300 ml Laboratory Tests Test 05/23/17 05:05 White Blood Count 5.9 K/UL (4.8-10.8) Red Blood Count 3.70 M/UL (4.20-5.40) L Hemoglobin 11.7 G/DL (12.0-16.0) L Hematocrit 35.6 % (37.0-47.0) L Mean Corpuscular Volume 96 FL (80-99) Mean Corpuscular Hemoglobin 31.7 PG (27.0-31.0) H Mean Corpuscular Hemoglobin Concent 33.0 G/DL (32.0-36.0) Red Cell Distribution Width 14.3 % (11.6-14.8) Platelet Count 171 K/UL (150-450) Mean Platelet Volume 8.9 FL (6.5-10.1) Neutrophils (%) (Auto) 52.2 % (45.0-75.0) Lymphocytes (%) (Auto) 37.2 % (20.0-45.0) Monocytes (%) (Auto) 8.0 % (1.0-10.0) Eosinophils (%) (Auto) 1.6 % (0.0-3.0) Basophils (%) (Auto) 0.9 % (0.0-2.0) Sodium Level 134 MMOL/L (136-145) L Potassium Level 4.2 MMOL/L (3.5-5.1) Chloride Level 95 MMOL/L (98-107) L Carbon Dioxide Level 27 MMOL/L (21-32) Anion Gap 13 mmol/L (5-15) Blood Urea Nitrogen 73 mg/dL (7-18) H Creatinine 15.5 MG/DL (0.55-1.30) H Estimat Glomerular Filtration Rate 2.9 mL/min (>60) Glucose Level 75 MG/DL (74-106) Calcium Level 9.1 MG/DL (8.5-10.1) LINDSAY BARTHOLOMEW May 23, 2017 17:18
[2017-05-23 20:00] VITALS: BP 81/43
[2017-05-23] MEDS: Dyna-Hex 2% Top Sol 2oz TOPIC SCH (20:30)
--- NOTE | 2017-05-23 23:05 | Progress Note ---
DATE: 05/22/2017 SUBJECTIVE: The patient is calmer and less agitated, in no acute distress. MENTAL STATUS EXAMINATION: Alert and oriented times self, place, and situation she is in. Mood is depressed and anxious. Affect is constricted, congruent with mood. Thought process is concrete. Thought content, no suicidal or homicidal ideation. ASSESSMENT: 1. Depression. 2. Anxiety. PLAN: We will continue current medication. Provide the patient with supportive therapy and reality orientation. Edwin Brown M.D. DR: SASHA JOB#: [id number] CC:
[2017-05-24] VITALS (9 sets, daily range): BP systolic 74–100; BP diastolic 45–55
[2017-05-24] MEDS: Heparin 5000 units/ml inj SUBQ SCH ×2 (09:00→21:00)
[2017-05-24] MEDS ORDERED: Sensipar 30mg Tab ORAL SCH (09:00)
[2017-05-24] MEDS ORDERED: Heparin Sod 1000 units/ml 10ml IV PRN (09:00)
[2017-05-24] MEDS: Docusate 100mg cap ORAL SCH ×3 (09:16→18:00)
[2017-05-24] MEDS: Midodrine 10mg tab ORAL SCH ×3 (09:17→18:52)
--- NOTE | 2017-05-24 09:20 | Nephrology Progress Note ---
Assessment/Plan Problem List: (1) ESRD (end stage renal disease) on dialysis (2) Shortness of breath (3) Hypotension Assessment: persists (4) Acute respiratory failure with hypoxemia Assessment patient remains hypotensive out of ICU due dialysis today refuses meds ESRD- Dyspnea Hx Cardiac Problems: Yes - Hypotension Hx Asthma: Yes Hx Gastrointestinal Problems: Yes Hx Dialysis: Yes - MWF, last dialysis 01/20/17. Hx Neurological Problems: No - Plan Plan: Agree with trial of steroids, will change to po Dialysis ordered for today-Permacath in her thigh max UF as jose was limited due to low BP Per consultants, pulm support Midodrine for low BP per orders pulmonary support change diet to Renal as K remains high per Cardiology Subjective ROS Limited/Unobtainable: No Constitutional: Reports: malaise Objective Objective Last 24 Hour Vital Signs Date Time Temp Pulse Resp B/P (MAP) Pulse Ox O2 Delivery O2 Flow Rate FiO2 05/24/17 04:00 62 05/24/17 04:00 96.7 46 18 84/49 92 Nasal Cannula 2.0 05/24/17 00:00 40 05/24/17 00:00 97.3 49 20 88/55 94 Nasal Cannula 2.0 05/23/17 20:29 96 Nasal Cannula 5.0 40 05/23/17 20:28 Nasal Cannula 5.0 40 05/23/17 20:28 71 20 Room Air 5.0 40 05/23/17 20:00 97.6 51 18 81/43 95 Room Air 05/23/17 20:00 44 05/23/17 16:00 71 05/23/17 16:00 97.2 58 20 78/43 100 Room Air 05/23/17 12:00 54 05/23/17 12:00 97.2 60 20 70/38 92 Room Air Intake and Output 05/23/17 05/24/17 19:00 07:00 Intake Total 929 ml Output Total 200 ml Balance 929 ml -200 ml Intake Oral 929 ml Output Urine Total 200 ml # Voids 3 Height (Feet): 5 Height (Inches): 6.00 Weight (Pounds): 208 General Appearance: no apparent distress Cardiovascular: bradycardia Respiratory/Chest: decreased breath sounds Abdomen: soft Objective no other change EDUARDO ROSE May 24, 2017 09:20
--- NOTE | 2017-05-24 09:54 | Diagnostic Imaging Report ---
Indication: Shortness of breath Technique: One view of the chest Comparison: 06-08 Findings: There is interim clearing of previously demonstrated right basilar opacity. Lung infiltrates are currently clear. Large hiatal hernia is again demonstrated. The tip of a femoral approach dialysis catheter is again demonstrated. Extensive calcifications are seen in the right breast, also described on recent CT. Bilateral right greater left x-ray surgical clips, right axillary vascular stent, calcifications likely related to prior dialysis graft are again demonstrated. Impression: No acute process. Findings as described
[2017-05-24] MEDS ORDERED: Hydrocortisone 20mg tab ORAL SCH (10:00)
--- NOTE | 2017-05-24 11:53 | Internal Med Progress Note ---
Subjective Date of Service: May 24, 2017 Physician Name Shavonne Ugalde Attending Physician Ash Henley MD Current Medications Medications (Trade) Dose Ordered Sig/Marcos Route PRN Reason Start Time Stop Time Status Last Admin Dose Admin Acetaminophen (Tylenol) 650 mg Q4H PRN ORAL pain/headache 05/22/17 00:00 06/15/17 11:59 05/24/17 09:20 Chlorhexidine Gluconate (Nivia-Hex 2%) 1 applic DAILY@2000 TOPIC 05/22/17 20:00 06/18/17 19:59 05/23/17 20:30 Cinacalcet (Sensipar) 30 mg 3XW ORAL 05/24/17 09:00 06/16/17 08:59 05/24/17 09:17 Dextrose (Dextrose 50%) STAT PRN IV Hypoglycemia 05/22/17 19:45 06/14/17 19:44 Diphenhydramine HCl (Benadryl) 25 mg Q6H PRN IVP Itching 05/21/17 23:30 06/16/17 11:29 05/22/17 02:11 Docusate Sodium (Colace) 100 mg THREE TIMES A DAY ORAL 05/22/17 09:00 06/15/17 12:59 05/24/17 09:16 Heparin Sodium (Porcine) (Heparin 5000 units/ml) 5,000 units EVERY 12 HOURS SUBQ 05/22/17 09:00 06/14/17 20:59 05/22/17 20:44 Heparin Sodium (Porcine) (Heparin Sod 1000 units/ml 10ml) 2,000 unit ONCE ONCE IV 05/24/17 12:00 05/24/17 12:01 Heparin Sodium (Porcine) (Heparin Sod 1000 units/ml 10ml) 2,000 unit THREE TIMES A WEEK PRN IV FOR DIALYSIS USE 05/24/17 09:00 05/25/17 02:29 Hydrocortisone (Cortef) 25 mg DAILY@1400 ORAL 05/24/17 14:00 06/23/17 13:59 Hydrocortisone (Cortef) 50 mg DAILY@0700 ORAL 05/25/17 07:00 06/24/17 06:59 Hydrocortisone (Cortef) 50 mg ONCE ORAL 05/24/17 10:00 06/23/17 09:44 05/24/17 10:00 Midodrine (Pro-Amatine) 10 mg THREE TIMES A DAY ORAL 05/22/17 09:00 06/16/17 12:59 05/24/17 09:17 Ondansetron HCl (Zofran) 4 mg Q6H PRN IVP Nausea & Vomiting 05/22/17 01:45 06/14/17 19:44 Pantoprazole (Protonix) 40 mg EVERY 12 HOURS ORAL 05/22/17 09:00 06/14/17 20:59 05/24/17 09:15 Polyethylene Glycol (Miralax) 17 gm DAILYPRN PRN ORAL Constipation 05/22/17 19:45 06/14/17 19:44 05/24/17 09:17 Promethazine HCl/ Codeine (Phenergan with Codeine) 5 ml Q4H PRN ORAL For Cough 05/22/17 01:00 06/15/17 08:59 05/23/17 09:56 Sevelamer Carbonate (Renvela) 1,600 mg THREE TIMES A DAY ORAL 05/22/17 09:00 06/15/17 08:59 05/24/17 09:17 Sodium Chloride 1,000 ml @ 500 mls/hr Q2H PRN IVLG sbp<90 during hd 05/24/17 11:11 06/23/17 11:10 Allergies: Coded Allergies: CEFAZOLIN (Verified Allergy, Unknown, 10/02/10) CIPROFLOXACIN (Verified Allergy, Unknown, 10/02/10) GENTAMICIN (Verified Allergy, Unknown, 10/02/10) LEVOFLOXACIN (Verified Allergy, Unknown, 10/02/10) PENICILLINS (Verified Allergy, Unknown, ITCH, 10/02/10) Uncoded Allergies: CONTRAST MEDIA (Adverse Reaction, Mild, MILD ITCHING AFTER CONTRAST MEDIA, 04/30/17) ROS Limited/Unobtainable: No Constitutional: Reports: no symptoms HEENT: Reports: no symptoms Cardiovascular: Reports: no symptoms Respiratory: Reports: no symptoms Gastrointestinal/Abdominal: Reports: no symptoms Genitourinary: Reports: no symptoms Neurologic/Psychiatric: Reports: no symptoms Subjective 52 YO F admitted with shortness of breath. Tolerating nasal canula. Cover for Int Med Dr Henley. Await hemodialysis today Objective Last Vital Signs Date Time Temp Pulse Resp B/P (MAP) Pulse Ox O2 Delivery O2 Flow Rate FiO2 05/24/17 08:00 94 05/24/17 08:00 97.4 19 100/50 95 05/24/17 07:55 Room Air 05/24/17 07:50 21 05/24/17 04:00 2.0 Intake and Output 05/23/17 05/24/17 19:00 07:00 Intake Total 929 ml Output Total 200 ml Balance 929 ml -200 ml Intake Oral 929 ml Output Urine Total 200 ml # Voids 3 Objective General Appearance: WD/WN, no apparent distress, alert EENT: PERRL/EOMI, normal ENT inspection, TMs normal Neck: non-tender, normal alignment, supple, normal inspection Cardiovascular: normal peripheral pulses, normal rate, regular rhythm, no gallop/murmur, no JVD Respiratory/Chest: Venturi mask; chest wall non-tender, no respiratory distress , no accessory muscle use, crackles/rales, rhonchi - bilaterally, expiratory wheezing Abdomen: normal bowel sounds, non tender, soft, no organomegaly, no mass Extremities: normal range of motion, non-tender Neurologic: country manager II-XII grossly normal, no motor/sensory deficits Skin: normal pigmentation, warm/dry Assessment/Plan Problem List: (1) HTN (hypertension) Assessment & Plan: Off medication; continue off meds. (2) Shortness of breath Assessment & Plan: CT angio=neg for pulm embolism. Tolerating nasal canula and room air. See pulmonary note. (3) ESRD (end stage renal disease) on dialysis Assessment & Plan: Next Hemodialysis 05/24/17 per nephrology- See nephrology note. (4) Acute respiratory failure with hypoxemia Assessment & Plan: currently on nasal canula-see pulmonary note (5) Pleural effusion on right (6) Hiatal hernia Status: stable Assessment/Plan Discharge planning: Home with home health after dialysis SHAVONNE UGALDE May 24, 2017 11:53
[2017-05-24] MEDS ORDERED: Heparin Sod 1000 units/ml 10ml IV ONE (12:00)
--- NOTE | 2017-05-24 13:20 | Pulmonology Progress Note ---
Assessment/Plan Problems: (1) Acute bronchitis (2) Hypoparathyroidism (3) ESRD (end stage renal disease) on dialysis Assessment/Plan bp much better all noted no new complians dc home with hh Subjective ROS Limited/Unobtainable: No Constitutional: Reports: no symptoms Respiratory: Reports: no symptoms Allergies: Coded Allergies: CEFAZOLIN (Verified Allergy, Unknown, 10/02/10) CIPROFLOXACIN (Verified Allergy, Unknown, 10/02/10) GENTAMICIN (Verified Allergy, Unknown, 10/02/10) LEVOFLOXACIN (Verified Allergy, Unknown, 10/02/10) PENICILLINS (Verified Allergy, Unknown, ITCH, 10/02/10) Uncoded Allergies: CONTRAST MEDIA (Adverse Reaction, Mild, MILD ITCHING AFTER CONTRAST MEDIA, 04/30/17) Objective Last 24 Hour Vital Signs Date Time Temp Pulse Resp B/P (MAP) Pulse Ox O2 Delivery O2 Flow Rate FiO2 05/24/17 12:00 97.3 72 19 99/49 97 Room Air 05/24/17 08:00 94 05/24/17 08:00 97.4 80 19 100/50 95 05/24/17 07:55 Room Air 05/24/17 07:50 91 Room Air 21 05/24/17 07:50 74 18 Room Air 05/24/17 04:00 62 05/24/17 04:00 96.7 46 18 84/49 92 Nasal Cannula 2.0 05/24/17 00:00 40 05/24/17 00:00 97.3 49 20 88/55 94 Nasal Cannula 2.0 05/23/17 20:29 96 Nasal Cannula 5.0 40 05/23/17 20:28 Nasal Cannula 5.0 40 05/23/17 20:28 71 20 Room Air 5.0 40 05/23/17 20:00 97.6 51 18 81/43 95 Room Air 05/23/17 20:00 44 05/23/17 16:00 71 05/23/17 16:00 97.2 58 20 78/43 100 Room Air Intake and Output 05/23/17 05/24/17 19:00 07:00 Intake Total 929 ml Output Total 200 ml Balance 929 ml -200 ml Intake Oral 929 ml Output Urine Total 200 ml # Voids 3 Objective General Appearance: WD/WN Lines, tubes and drains: peripheral HEENT: normocephalic, atraumatic Neck: non-tender, normal alignment Respiratory/Chest: chest wall non-tender, lungs clear Breasts: no masses Cardiovascular/Chest: normal peripheral pulses Abdomen: normal bowel sounds, non tender Genitourinary/Rectal: normal genital exam Extremities: normal range of motion Skin Exam: normal pigmentation Current Medications Medications (Trade) Dose Ordered Sig/Marcos Route PRN Reason Start Time Stop Time Status Last Admin Dose Admin Acetaminophen (Tylenol) 650 mg Q4H PRN ORAL pain/headache 05/22/17 00:00 06/15/17 11:59 05/24/17 09:20 Chlorhexidine Gluconate (Nivia-Hex 2%) 1 applic DAILY@2000 TOPIC 05/22/17 20:00 06/18/17 19:59 05/23/17 20:30 Cinacalcet (Sensipar) 30 mg 3XW ORAL 05/24/17 09:00 06/16/17 08:59 05/24/17 09:17 Dextrose (Dextrose 50%) STAT PRN IV Hypoglycemia 05/22/17 19:45 06/14/17 19:44 Diphenhydramine HCl (Benadryl) 25 mg Q6H PRN IVP Itching 05/21/17 23:30 06/16/17 11:29 05/22/17 02:11 Docusate Sodium (Colace) 100 mg THREE TIMES A DAY ORAL 05/22/17 09:00 06/15/17 12:59 05/24/17 09:16 Heparin Sodium (Porcine) (Heparin 5000 units/ml) 5,000 units EVERY 12 HOURS SUBQ 05/22/17 09:00 06/14/17 20:59 05/22/17 20:44 Heparin Sodium (Porcine) (Heparin Sod 1000 units/ml 10ml) 2,000 unit THREE TIMES A WEEK PRN IV FOR DIALYSIS USE 05/24/17 09:00 05/25/17 02:29 Hydrocortisone (Cortef) 25 mg DAILY@1400 ORAL 05/24/17 14:00 06/23/17 13:59 Hydrocortisone (Cortef) 50 mg DAILY@0700 ORAL 05/25/17 07:00 06/24/17 06:59 Hydrocortisone (Cortef) 50 mg ONCE ORAL 05/24/17 10:00 06/23/17 09:44 05/24/17 10:00 Midodrine (Pro-Amatine) 10 mg THREE TIMES A DAY ORAL 05/22/17 09:00 06/16/17 12:59 05/24/17 09:17 Ondansetron HCl (Zofran) 4 mg Q6H PRN IVP Nausea & Vomiting 05/22/17 01:45 06/14/17 19:44 Pantoprazole (Protonix) 40 mg EVERY 12 HOURS ORAL 05/22/17 09:00 06/14/17 20:59 05/24/17 09:15 Polyethylene Glycol (Miralax) 17 gm DAILYPRN PRN ORAL Constipation 05/22/17 19:45 06/14/17 19:44 05/24/17 09:17 Promethazine HCl/ Codeine (Phenergan with Codeine) 5 ml Q4H PRN ORAL For Cough 05/22/17 01:00 06/15/17 08:59 05/23/17 09:56 Sevelamer Carbonate (Renvela) 1,600 mg THREE TIMES A DAY ORAL 05/22/17 09:00 06/15/17 08:59 05/24/17 09:17 Sodium Chloride 1,000 ml @ 500 mls/hr Q2H PRN IVLG sbp<90 during hd 05/24/17 11:11 06/23/17 11:10 GABI DENNEY May 24, 2017 13:19
--- NOTE | 2017-05-24 13:53 | Cardiology Report ---
APPROVED REPORT EKG Measurement Heart [id number] Normal sinus rhythm Low voltage QRS Nonspecific T wave abnormality Prolonged QT Abnormal ECG
--- NOTE | 2017-05-24 19:32 | Cardiology Progress Note ---
Assessment/Plan Assessment/Plan 1. Low blood pressure readings/hypotension asymptomatic 2. End-stage renal disease, on hemodialysis. 3. Shortness of breath. 4. Hypoxemia 5. sinus ade no pericardial effusion normal cortisol no bacteremia arterial duplex showed no upper ext arterial stenosis her bp remains low mildly at times but she remain asymtomatic seem chronic trop neg had v/q intermeidiate probability contrast allergy nto seem ot have much sx at all Subjective Cardiovascular: Denies: chest pain, lightheadedness Respiratory: Denies: shortness of breath Gastrointestinal/Abdominal: Denies: abdominal pain Subjective walked to br no symptoms Objective Last 24 Hour Vital Signs Date Time Temp Pulse Resp B/P (MAP) Pulse Ox O2 Delivery O2 Flow Rate FiO2 05/24/17 19:11 Room Air 05/24/17 19:10 94 Room Air 21 05/24/17 19:10 77 18 Room Air 05/24/17 16:00 58 05/24/17 16:00 97.6 62 19 89/50 100 Room Air 05/24/17 12:00 60 05/24/17 12:00 97.3 72 19 99/49 97 Room Air 05/24/17 08:00 94 05/24/17 08:00 97.4 80 19 100/50 95 05/24/17 07:55 Room Air 05/24/17 07:50 91 Room Air 21 05/24/17 07:50 74 18 Room Air 05/24/17 04:00 62 05/24/17 04:00 96.7 46 18 84/49 92 Nasal Cannula 2.0 05/24/17 00:00 40 05/24/17 00:00 97.3 49 20 88/55 94 Nasal Cannula 2.0 05/23/17 20:29 96 Nasal Cannula 5.0 40 05/23/17 20:28 Nasal Cannula 5.0 40 05/23/17 20:28 71 20 Room Air 5.0 40 05/23/17 20:00 97.6 51 18 81/43 95 Room Air 05/23/17 20:00 44 General Appearance: alert Neck: no JVD Cardiovascular: normal rate, regular rhythm Respiratory/Chest: lungs clear Abdomen: normal bowel sounds, non tender, soft Extremities: no swelling Intake and Output 05/23/17 05/24/17 19:00 07:00 Intake Total 929 ml Output Total 200 ml Balance 929 ml -200 ml Intake Oral 929 ml Output Urine Total 200 ml # Voids 3 RUMA RAMÍREZ May 24, 2017 19:32
[2017-05-24] MEDS: Dyna-Hex 2% Top Sol 2oz TOPIC SCH (20:00)
[2017-05-24] MEDS ORDERED: Zolpidem 5mg tab ORAL PRN (21:00)
[2017-05-24 21:24] LABS: BASOPHILS % (AUTO) 0.7 % (0.0-2.0); EOSINOPHILS % (AUTO) 0.2 % (0.0-3.0); HEMATOCRIT 38.7 % (37.0-47.0); HEMOGLOBIN 12.7 G/DL (12.0-16.0); LYMPHOCYTES % (AUTO) 20.1 % (20.0-45.0); MEAN CORPUSCULAR VOLUME 97 FL (80-99); MONOCYTES % (AUTO) 3.2 % (1.0-10.0); NEUTROPHILS % (AUTO) 75.8 % (45.0-75.0); PLATELET COUNT 207 K/UL (150-450); RED BLOOD COUNT 4.01 M/UL (4.20-5.40); RED CELL DISTRIBUTION WIDTH 14.2 % (11.6-14.8)
[2017-05-24 21:36] LABS: ANION GAP 15 mmol/L (5-15); BLOOD UREA NITROGEN 63 mg/dL (7-18); CARBON DIOXIDE 23 MMOL/L (21-32); CHLORIDE 95 MMOL/L (98-107); CREATININE 13.1 MG/DL (0.55-1.30); PHOSPHORUS 4.2 MG/DL (2.5-4.9); POTASSIUM 4.1 MMOL/L (3.5-5.1); SODIUM 133 MMOL/L (136-145)
[2017-05-24] MEDS: DiphenhydrAMINE 50mg/ml Inj IVP PRN (21:56)
--- NOTE | 2017-05-24 23:15 | Progress Note ---
DATE: 05/23/2017 SUBJECTIVE: The patient continues to present with anxiety. Lost her [id number]. The patient is tearful and depressed. Has been having anxiety. MENTAL STATUS EXAMINATION: The patient is alert and oriented to time, self, place, and situation she is in. Mood is dysphoric and anxious. Affect is constricted. Congruent with mood. Thought process is concrete. Thought content, no suicidal or homicidal ideation. ASSESSMENT: Anxiety disorder. PLAN: We will continue to follow and readjust the medications. Edwin Brown M.D. DR: Luis JOB#: [id number] CC:
--- NOTE | 2017-05-24 23:15 | Progress Note ---
DATE: 05/24/2017 SUBJECTIVE: The patient is presenting with anxiety, agitation, decreased energy. The patient is more tearful due to losing her [id number]. MENTAL STATUS EXAMINATION: The patient is alert and oriented times self, place, and situation she is in. Mood is depressed. Affect is constricted, congruent with mood. Thought process is concrete. Thought content, no suicidal or homicidal ideation. ASSESSMENT: Anxiety disorder. PLAN: 1. We will start the patient on Ambien p.r.n., as she has not been able to sleep last night. 2. We will continue follow and readjust the medications. Edwin Brown M.D. DR: SASHA JOB#: [id number] CC:
[2017-05-25] VITALS: BP 85/45
[2017-05-25 04:00] VITALS: BP 86/46
[2017-05-25] MEDS ORDERED: Hydrocortisone 20mg tab ORAL SCH (07:00)
[2017-05-25] MEDS: Heparin 5000 units/ml inj SUBQ SCH (09:00)
[2017-05-25] MEDS: Docusate 100mg cap ORAL SCH (10:41)
[2017-05-25] MEDS: Midodrine 10mg tab ORAL SCH (10:41)
--- NOTE | 2017-05-25 11:38 | Diagnostic Imaging Report ---
APPROVED REPORT CPT Code: 41818 Present Symptoms Shortness of breath Comments: R/O DVT BILATERAL: Imaging reveals a patent deep venous system bilaterally. There is no evidence of thrombus within the femoral, popliteal or tibial segments. The greater saphenous veins are also within normal limits. Doppler indicates normal spontaneous flow within these segments.
--- NOTE | 2017-05-25 11:39 | Diagnostic Imaging Report ---
APPROVED REPORT CPT Code: 72052 Symptoms Other : Edema and pain Comments Low BP BILATERAL UPPER EXTREMITY: Imaging of the subclavian, axillary, brachial, radial and ulnar arteries is within normal limits. There is no evidence of stenosis or occlusion within these segments. The Doppler waveforms of the bilateral upper extremity are multiphasic, consistent with normal inflow to the upper extremity.
--- NOTE | 2017-05-25 13:26 | Nephrology Progress Note ---
Assessment/Plan Problem List: (1) ESRD (end stage renal disease) on dialysis (2) Shortness of breath (3) Hypotension Assessment: persists (4) Acute respiratory failure with hypoxemia Assessment doing well dialysed yesterday anxious to go home ESRD- Dyspnea Hx Cardiac Problems: Yes - Hypotension Hx Asthma: Yes Hx Gastrointestinal Problems: Yes Hx Dialysis: Yes - MWF, last dialysis 01/20/17. Hx Neurological Problems: No - Plan Plan: meds reviewed agree with DC HD fu as out patient Midodrine for low BP per Cardiology Subjective ROS Limited/Unobtainable: No Interval Events/Complaints seen at 9 am Objective Objective Last 24 Hour Vital Signs Date Time Temp Pulse Resp B/P (MAP) Pulse Ox O2 Delivery O2 Flow Rate FiO2 05/25/17 04:00 55 05/25/17 04:00 97.7 61 20 86/46 93 Nasal Cannula 2.0 05/25/17 00:00 51 05/25/17 00:00 99.1 85 18 85/45 93 Nasal Cannula 2.0 05/24/17 22:45 97.0 75 20 74/45 Room Air 05/24/17 22:45 Room Air 05/24/17 22:24 97.2 85 20 85/50 95 Room Air 2.0 21 05/24/17 20:00 97.2 85 20 85/50 95 Room Air 05/24/17 20:00 65 05/24/17 19:11 Room Air 05/24/17 19:10 94 Room Air 21 05/24/17 19:10 77 18 Room Air 05/24/17 19:00 97.2 80 20 99/54 Room Air 05/24/17 19:00 Room Air 05/24/17 16:00 58 05/24/17 16:00 97.6 62 19 89/50 100 Room Air Intake and Output 05/24/17 05/25/17 19:00 07:00 Intake Total 480 ml 400 ml Output Total 3000 ml Balance 480 ml -2600 ml Intake Oral 480 ml 400 ml Hemodialysis UF 3000 ml # Voids 2 Laboratory Tests 05/24/17 20:00: White Blood Count 6.0, Red Blood Count 4.01L, Hemoglobin 12.7, Hematocrit 38.7, Mean Corpuscular Volume 97, Mean Corpuscular Hemoglobin 31.7H, Mean Corpuscular Hemoglobin Concent 32.8, Red Cell Distribution Width 14.2, Platelet Count 207, Mean Platelet Volume 9.4, Neutrophils (%) (Auto) 75.8H, Lymphocytes (%) (Auto) 20.1, Monocytes (%) (Auto) 3.2, Eosinophils (%) (Auto) 0.2, Basophils (%) (Auto ) 0.7, Sodium Level 133L, Potassium Level 4.1, Chloride Level 95L, Carbon Dioxide Level 23, Anion Gap 15, Blood Urea Nitrogen 63H, Creatinine 13.1H, Estimat Glomerular Filtration Rate 3.6, Glucose Level 113H, Calcium Level 9.0, Phosphorus Level 4.2, C-Reactive Protein, Quantitative 4.7H Height (Feet): 5 Height (Inches): 6.00 Weight (Pounds): 207 General Appearance: no apparent distress Objective no other change EDUARDO ROSE May 25, 2017 13:26
--- NOTE | 2017-05-25 20:17 | Pulmonology Progress Note ---
Assessment/Plan Problems: (1) Acute bronchitis (2) Hypoparathyroidism (3) ESRD (end stage renal disease) on dialysis Assessment/Plan bp much better all noted no new complians dc home with hh today Subjective ROS Limited/Unobtainable: No Constitutional: Reports: no symptoms HEENT: Repors: no symptoms Respiratory: Reports: no symptoms Allergies: Coded Allergies: CEFAZOLIN (Verified Allergy, Unknown, 10/02/10) CIPROFLOXACIN (Verified Allergy, Unknown, 10/02/10) GENTAMICIN (Verified Allergy, Unknown, 10/02/10) LEVOFLOXACIN (Verified Allergy, Unknown, 10/02/10) PENICILLINS (Verified Allergy, Unknown, ITCH, 10/02/10) Uncoded Allergies: CONTRAST MEDIA (Adverse Reaction, Mild, MILD ITCHING AFTER CONTRAST MEDIA, 04/30/17) Objective Last 24 Hour Vital Signs Date Time Temp Pulse Resp B/P (MAP) Pulse Ox O2 Delivery O2 Flow Rate FiO2 05/25/17 04:00 55 05/25/17 04:00 97.7 61 20 86/46 93 Nasal Cannula 2.0 05/25/17 00:00 51 05/25/17 00:00 99.1 85 18 85/45 93 Nasal Cannula 2.0 05/24/17 22:45 97.0 75 20 74/45 Room Air 05/24/17 22:45 Room Air 05/24/17 22:24 97.2 85 20 85/50 95 Room Air 2.0 21 Intake and Output 05/24/17 05/25/17 19:00 07:00 Intake Total 480 ml 400 ml Output Total 3000 ml Balance 480 ml -2600 ml Intake Oral 480 ml 400 ml Hemodialysis UF 3000 ml # Voids 2 Objective General Appearance: WD/WN Lines, tubes and drains: peripheral HEENT: normocephalic, atraumatic Neck: non-tender, normal alignment Respiratory/Chest: chest wall non-tender, lungs clear Breasts: no masses Cardiovascular/Chest: normal peripheral pulses Abdomen: normal bowel sounds, non tender Genitourinary/Rectal: normal genital exam Extremities: normal range of motion Skin Exam: normal pigmentation GABI DENNEY May 25, 2017 20:17
--- NOTE | 2017-05-26 00:30 | Progress Note ---
DATE: 05/25/2017 SUBJECTIVE: The patient last night in a better mood, less anxious. MENTAL STATUS EXAMINATION: The patient is alert and oriented times self, place, and situation she is in. Mood is depressed. Affect is constricted, congruent with mood. Thought process is concrete. Thought content, there is no suicidal or homicidal ideations. ASSESSMENT: 1. Depression. 2. Anxiety. PLAN: 1. We will continue current medication. 2. Provide the patient with supportive therapy and reality orientation. Edwin Brown M.D. DR: FER JOB#: [id number] CC:
--- NOTE | 2017-05-27 17:28 | Discharge Summary ---
Discharge Summary Hospital Course Date of Admission May 15, 2017 at 17:05 Date of Discharge May 25, 2017 at 11:15 Admitting Diagnosis DYSPNEA HPI Suyapa Fuller is a 52 year old female who was admitted on May 15, 2017 at 17: 05 for Dyspnea Hospital Course [id number] Discharge Discharge Disposition Patient was discharged to Home with Discharge Diagnoses: Hue Sotelo NP May 27, 2017 17:28
--- NOTE | 2017-05-28 05:15 | Discharge Summary 2 SIG ---
DATE OF ADMISSION: 05/15/2017 DATE OF DISCHARGE: 05/25/2017 CONSULTANTS: 1. Cuate Schmidt M.D. 2. Fredrick Conner M.D. 3. Clint Jay M.D. 4. Edwin Brown M.D. BRIEF HOSPITAL COURSE: The patient is a 52-year-old female, who presented to ED because of shortness of breath. The patient was complaining of one-week history of shortness of breath. Denied cough, fevers, or chills. She has history of end-stage renal disease, on hemodialysis every Wednesday, Wednesday, and Wednesday, history of anemia, hypertension, parathyroidectomy and cholecystectomy. On evaluation at ED, blood work showed no leukocytosis. Hemoglobin and hematocrit were stable. Creatinine was 13.4. Troponin is negative. BNP 857. EKG done showed normal sinus rhythm with no acute ischemic changes and chest x-ray showed no evidence of cardiopulmonary disease. She was admitted for evaluation of shortness of breath. She came in hypotensive, antihypertensives were placed on hold. She was given respiratory treatments and chest physiotherapy. She was given inpatient hemodialysis. On 05/18/2017, she became short of breath requiring full oxygenation. She was transferred to intensive care unit due to hypoxemia and hypotension. She was started on midodrine. Dr. Jay was consulted. On evaluation, the patient did not appear to be fluid overloaded. Echocardiogram showed EF 55% with thickened mitral valve leaflets with normal excursion. No significant regurgitation. There was no pericardial effusion to suggest compression. She had her cortisol level checked that was normal and there was no evidence of bacteremia. The patient was asymptomatic even with a degree of hypotension possibly related to vascular calcification and arterial stenosis on extremities that have caused her to have low blood pressure readings. She underwent arterial duplex scan of the upper extremities. There was no evidence of stenosis or occlusion and Doppler waveforms of bilateral extremity were multiphasic consistent with normal inflow. She had a VQ scan that showed intermediate probability for pulmonary embolus. CT angio was negative for pulmonary embolism. She was given steroids. She was transferred out of ICU. She had episodes of anxiety and agitation and was given lorazepam as needed. Hypotension persisted, however, was asymptomatic. She was eventually cleared for discharge home with home health. FINAL DIAGNOSES: 1. Acute respiratory failure with hypoxemia. 2. End-stage renal disease, on hemodialysis. 3. Persistent hypotension. 4. Hiatal hernia. 5. Acute bronchitis. 6. Hypoparathyroidism. 7. End-stage renal disease, on hemodialysis. 8. Anxiety disorder. 9. Depression. 10. Sinus bradycardia. DISPOSITION: The patient was discharged home with home health. DISCHARGE MEDICATIONS: Refer to medication list. DISCHARGE INSTRUCTIONS: Follow up with Dr. Henley in a week. Ash Henley M.D. I have been assigned to dictate discharge summary on this account and I was not involved in the patient's management. Hue Sotelo N.P. DR: SELAM JOB#: [id number] CC: KAVEH
== END 2017-05-25 11:15 | disposition home or self-care (01) | DRG 189 ==
LOC: EDBEDREQ 15:51 → EMR 16:01 → 2E 17:05 → EDBEDREQ 17:09 → 2E 05-16 05:48 → ICU 05-18 01:27 → 2E 05-21 22:00
PROC: 5A1D70Z Performance of Urinary Filtration, Intermittent, Less than 6 Hours Per Day (ICD-10-PCS; principal; 2017-05-16)
DX: J96.01 Acute respiratory failure with hypoxia (principal); N18.6 End stage renal disease; I95.9 Hypotension, unspecified; I12.0 Hypertensive chronic kidney disease with stage 5 chronic kidney disease or end stage renal disease; J90 Pleural effusion, not elsewhere classified; J20.9 Acute bronchitis, unspecified; Z99.2 Dependence on renal dialysis; E20.9 Hypoparathyroidism, unspecified; E66.9 Obesity, unspecified; F32.9 Major depressive disorder, single episode, unspecified; D63.1 Anemia in chronic kidney disease; Z68.33 Body mass index [BMI] 33.0-33.9, adult; G47.00 Insomnia, unspecified; R00.1 Bradycardia, unspecified; K44.9 Diaphragmatic hernia without obstruction or gangrene; F41.9 Anxiety disorder, unspecified
CPT/HCPCS: 36415; 36600; 71045; 71275; 78579; 78580; 80048; 80053; 80069; 82533; 82550; 82553; 82803; 82977; 83605; 83735; 83880; 84100; 84443; 84484; 84550; 85007; 85025; 86140; 86710; 87040; 87070; 87081; 87205; 93005; 93306; 93930; 93970; 94640; 94664; 94760; 99285; A9503; J2405; J7620

== ENCOUNTER 2017-07-11 15:26 | Inpatient (IN) | payer MEDICARE, OTHER ==
[~2017-07-11] VITALS: Ht 167.6 cm; Wt 89.8 kg
[2017-07-11 15:54] VITALS: BP 96/58
--- NOTE | 2017-07-11 16:56 | Emergency Room Report ---
History of Present Illness General Chief Complaint: Dyspnea/Respdistress Source: Patient, Medical Record Present Illness HPI Patient presents with dyspnea on exertion. Has been getting worse over the last week. She denies any chest pain. She states her dialysis been adequate. She hasn't had any productive cough. She denies prior clot or calf pain. She does not have home oxygen. She has not heard herself wheezing. This does not change with dialysis. In April the patient had an extensive evaluation for similar problem. She was in the hospital 11 days. They excluded blood clots lung (V/Q was "intermediate probability for PE", CTA showed no large clot but was difficult to interpret). They told her that she had some "fluid around her heart" but workers compensation claims examiner note states "no pericardial effusion" Echo suggests either fat or effusion. (She had pleural effusion right). No evidence of RV strain or enlargement noted, but was difficult exam. She was discharged in May with these dx: 1. Acute respiratory failure with hypoxemia. 2. End-stage renal disease, on hemodialysis. 3. Persistent hypotension. 4. Hiatal hernia. 5. Acute bronchitis. 6. Hypoparathyroidism. 7. End-stage renal disease, on hemodialysis. 8. Anxiety disorder. 9. Depression. 10. Sinus bradycardia. She has a dialysis catheter R groin. Dialysis is MWF. Depressed. Anemia without evidence of active bruising or bleeding. No headache. No NVD. Not make urine. Allergies: Coded Allergies: CEFAZOLIN (Verified Allergy, Unknown, 10/02/10) CIPROFLOXACIN (Verified Allergy, Unknown, 10/02/10) GENTAMICIN (Verified Allergy, Unknown, 10/02/10) LEVOFLOXACIN (Verified Allergy, Unknown, 10/02/10) PENICILLINS (Verified Allergy, Unknown, ITCH, 10/02/10) Uncoded Allergies: CONTRAST MEDIA (Adverse Reaction, Mild, MILD ITCHING AFTER CONTRAST MEDIA, 04/30/17) Patient History Past Medical History: see triage record Past Surgical History: other - fistulae, shunts, parathyroidectomy Social History: Denies: smoking Social History Narrative home with home health Last Menstrual Period: pt states 20 years ago Now: No Reviewed Nursing Documentation: PMH: Agreed; PSxH: Agreed Nursing Documentation-PMH Past Medical History: No History, Except For Hx Cardiac Problems: Yes Hx Pacemaker: Yes Hx Asthma: Yes Hx Diabetes: Yes Hx Cancer: No Hx Gastrointestinal Problems: Yes Hx Dialysis: Yes - M,W,F Hx Neurological Problems: No Review of Systems All Other Systems: negative except mentioned in HPI Physical Exam Vital Signs Date Time Temp Pulse Resp B/P (MAP) Pulse Ox O2 Delivery O2 Flow Rate FiO2 07/11/17 15:44 97.7 77 18 96/58 94 Nasal Cannula 2.0 97.7 Sp02 EP Interpretation: reviewed, abnormal - interpreted as low by me General Appearance: well appearing, no apparent distress, GCS 15 Head: normocephalic Eyes: bilateral eye conjunctivae pale ENT: moist mucus membranes Neck: supple Respiratory: chest non-tender, lungs clear, normal breath sounds Cardiovascular #1: regular rate, rhythm Cardiovascular #2: 2+ radial (R) Gastrointestinal: normal inspection, normal bowel sounds, non tender, no mass, non-distended, other - R dialysis catheter, overweight Musculoskeletal: back normal, gait/station normal, normal range of motion Neurologic: alert, oriented x3, grossly normal Psychiatric: depressed affect Skin: warm/dry, other - multiple surgical clips Medical Decision Making Diagnostic Impression: Primary Impression: Hypoxia Additional Impressions: ESRD (end stage renal disease) on dialysis Shortness of breath ER Course Patient presents with hypoxia and dyspnea on exertion. She is significantly hypoxemic. She is an extremely complicated patient with multiple co- morbidities. There is no evidence of bronchospasm with her exam. Differential includes a pulmonary embolus, pneumonia, venous shunt, pulmonary edema and fluid overload, pulmonary hypertension and fibrosis amongst others. Evaluation with EKG, CTA chest, CXR and labs. Patient is treated with oxygen. Consideration for anticoagulation. Her blood pressure is low (she states chronically) and we are unable to use nitrates. IV access is difficult. The patient's refusing to allow me to start an IV in her neck or in her groin. We were unable to perform the CT angiogram. EKG shows right axis with markedly decreased voltage. This could be consistent with a pericardial effusion. Chest x-ray no infiltrates. Heart size is normal. She has stents in arteries in her arms and also surgical clips. Labs are significant for normal white count and troponin. BNP is slightly elevated. Evidence of end-stage renal disease however other electrolytes are essentially normal. Elevated lactic acid. At times her O2 sats drop very low. Associated causes unclear. Clinical suspicion for PE is not insignificant. Consideration for empiric anticoagulation. (Will leave to specialists to decide.) The patient is admitted to a telemetry. If she deteriorates we may be able to emergently started IV at that time. She does have a peripheral line that's working. She needs to have further evaluation of the hypoxia possibly including a VQ scan and echocardiogram. Consideration for more aggressive cardiac evaluation with RV pressure measurement. If nothing else she may need to be on oxygen at home when she is discharged. Patient admitted to telemetry under the care of Dr. Henley. Laboratory Tests Test 07/11/17 17:05 07/11/17 18:55 White Blood Count 4.4 K/UL (4.8-10.8) L Red Blood Count 4.20 M/UL (4.20-5.40) Hemoglobin 13.1 G/DL (12.0-16.0) Hematocrit 40.2 % (37.0-47.0) Mean Corpuscular Volume 96 FL (80-99) Mean Corpuscular Hemoglobin 31.2 PG (27.0-31.0) H Mean Corpuscular Hemoglobin Concent 32.6 G/DL (32.0-36.0) Red Cell Distribution Width 15.7 % (11.6-14.8) H Platelet Count 136 K/UL (150-450) L Mean Platelet Volume 11.2 FL (6.5-10.1) H Neutrophils (%) (Auto) 54.9 % (45.0-75.0) Lymphocytes (%) (Auto) 29.3 % (20.0-45.0) Monocytes (%) (Auto) 8.9 % (1.0-10.0) Eosinophils (%) (Auto) 5.5 % (0.0-3.0) H Basophils (%) (Auto) 1.5 % (0.0-2.0) Prothrombin Time 12.0 SEC (9.30-11.50) H Prothrombin Time INR 1.1 (0.9-1.1) PTT 27 SEC (23-33) Sodium Level 144 MMOL/L (136-145) Potassium Level 4.5 MMOL/L (3.5-5.1) Chloride Level 103 MMOL/L (98-107) Carbon Dioxide Level 25 MMOL/L (21-32) Anion Gap 16 mmol/L (5-15) H Blood Urea Nitrogen 51 mg/dL (7-18) H Creatinine 12.5 MG/DL (0.55-1.30) H Estimate Glomerular Filtration Rate 3.8 mL/min (>60) Glucose Level 100 MG/DL (74-106) Lactic Acid Level 3.10 mmol/L (0.66-2.22) H 1.50 mmol/L (0.66-2.22) Calcium Level 10.0 MG/DL (8.5-10.1) Total Bilirubin 0.8 MG/DL (0.2-1.0) Aspartate Amino Transferase (AST) 24 U/L (15-37) Alanine Aminotransferase (ALT) 35 U/L (12-78) Alkaline Phosphatase 296 U/L (46-116) H Total Creatine Kinase 26 U/L (26-308) Troponin I 0.000 ng/mL (0.000-0.056) Pro-B-Type Natriuretic Peptide 1621 pg/mL (0-125) H Total Protein 8.6 G/DL (6.4-8.2) H Albumin 4.0 G/DL (3.4-5.0) Globulin 4.6 g/dL Albumin/Globulin Ratio 0.9 (1.0-2.7) L EKG Diagnostic Results Rate: normal Rhythm: NSR ST Segments: no acute changes - decreased voltage Rhythm Strip Diag. Results EP Interpretation: yes Rhythm: NSR, no PVC's, no ectopy Chest X-Ray Diagnostic Results Chest X-Ray Diagnostic Results : Chest X-Ray Ordered: Yes # of Views/Limited/Complete: 1 View Indication: Shortness of Breath EP Interpretation: Yes Interpretation: no consolidation, no effusion, no pneumothorax Impression: Other Electronically Signed by: Electronically signed by Sly Calvillo MD Last Vital Signs Date Time Temp Pulse Resp B/P (MAP) Pulse Ox O2 Delivery O2 Flow Rate FiO2 07/11/17 19:17 98.0 69 18 113/89 98 Nasal Cannula 2.0 98.0 Status: improved Disposition: ADMITTED INPATIENT Condition: Serious Referrals: Ash Henley MD (PCP) Sly Calvillo M.D. Jul 11, 2017 16:56
[2017-07-11 17:24] LABS: BASOPHILS % (AUTO) 1.5 % (0.0-2.0); EOSINOPHILS % (AUTO) 5.5 % (0.0-3.0); HEMATOCRIT 40.2 % (37.0-47.0); HEMOGLOBIN 13.1 G/DL (12.0-16.0); LYMPHOCYTES % (AUTO) 29.3 % (20.0-45.0); MEAN CORPUSCULAR VOLUME 96 FL (80-99); MONOCYTES % (AUTO) 8.9 % (1.0-10.0); NEUTROPHILS % (AUTO) 54.9 % (45.0-75.0); PLATELET COUNT 136 K/UL (150-450); RED CELL DISTRIBUTION WIDTH 15.7 % (11.6-14.8); WHITE BLOOD COUNT 4.4 K/UL (4.8-10.8)
[2017-07-11 17:35] LABS: INR 1.1 (0.9-1.1)
[2017-07-11 17:37] LABS: ANION GAP 16 mmol/L (5-15); BLOOD UREA NITROGEN 51 mg/dL (7-18); CARBON DIOXIDE 25 MMOL/L (21-32); CHLORIDE 103 MMOL/L (98-107); CREATININE 12.5 MG/DL (0.55-1.30); POTASSIUM 4.5 MMOL/L (3.5-5.1); SODIUM 144 MMOL/L (136-145)
[2017-07-11 17:46] LABS: ALANINE AMINOTRANSFERASE 35 U/L (12-78); ALBUMIN/GLOBULIN RATIO 0.9 (1.0-2.7); ALKALINE PHOSPHATASE 296 U/L (46-116); ASPARTATE AMINO TRANSFERASE 24 U/L (15-37); BILIRUBIN,TOTAL 0.8 MG/DL (0.2-1.0); CREATINE KINASE 26 U/L (26-308)
[2017-07-11 18:00] VITALS: BP 113/89
[2017-07-11 20:00] VITALS: BP 95/61
[2017-07-12] VITALS (7 sets, daily range): BP systolic 79–116; BP diastolic 31–65
[2017-07-12 08:09] LABS: BASOPHILS % (AUTO) 0.7 % (0.0-2.0); EOSINOPHILS % (AUTO) 8.8 % (0.0-3.0); HEMATOCRIT 33.3 % (37.0-47.0); HEMOGLOBIN 11.3 G/DL (12.0-16.0); LYMPHOCYTES % (AUTO) 36.2 % (20.0-45.0); MEAN CORPUSCULAR VOLUME 95 FL (80-99); MONOCYTES % (AUTO) 7.1 % (1.0-10.0); NEUTROPHILS % (AUTO) 47.2 % (45.0-75.0); PLATELET COUNT 101 K/UL (150-450); RED BLOOD COUNT 3.52 M/UL (4.20-5.40); WHITE BLOOD COUNT 3.7 K/UL (4.8-10.8)
[2017-07-12 08:36] LABS: ALANINE AMINOTRANSFERASE 32 U/L (12-78); ALBUMIN 3.4 G/DL (3.4-5.0); ALBUMIN/GLOBULIN RATIO 0.9 (1.0-2.7); ALKALINE PHOSPHATASE 245 U/L (46-116); ANION GAP 15 mmol/L (5-15); ASPARTATE AMINO TRANSFERASE 20 U/L (15-37); BLOOD UREA NITROGEN 56 mg/dL (7-18); CALCIUM 8.6 MG/DL (8.5-10.1); CARBON DIOXIDE 24 MMOL/L (21-32); CHLORIDE 102 MMOL/L (98-107); CREATININE 13.1 MG/DL (0.55-1.30); PHOSPHORUS 4.8 MG/DL (2.5-4.9); POTASSIUM 4.3 MMOL/L (3.5-5.1); SODIUM 141 MMOL/L (136-145)
[2017-07-12] MEDS: Heparin 5000 units/ml inj SUBQ SCH ×2 (08:47→21:00)
[2017-07-12] MEDS: Nephrovite tab (Rena-Vite) ORAL SCH (08:47)
[2017-07-12] MEDS ORDERED: Heparin 5000 units/ml inj IV ONE ×2 (09:00→22:30)
--- NOTE | 2017-07-12 11:43 | History & Physical ---
History and Physical History & Physicial Dictated for Int Med-Dr Henley no. [id number]. SHAVONNE UGALDE Jul 12, 2017 11:43
--- NOTE | 2017-07-12 13:29 | Diagnostic Imaging Report ---
Indication: Shortness of breath Technique: One view of the chest Comparison: 05/24/2017 Findings: Tip of right femoral dialysis catheter is seen in the right atrium. There is a large hiatal hernia noted. The lungs and pleural spaces are clear. Calcifications from an old fistula are seen in the right axilla. Bilateral axillary surgical clips and a right axillary venous stent are again noted. Impression: No acute process. Findings as noted This agrees with the preliminary interpretation provided by the emergency room physician
--- NOTE | 2017-07-12 14:46 | Consultation ---
Consult Note Consult Note asked to eval for dialysis management know to me from her previous admissions Patient presents with dyspnea on exertion. Has been getting worse over the last week. She denies any chest pain. She states her dialysis been adequate. She hasn't had any productive cough. She denies prior clot or calf pain. She does not have home oxygen. She has not heard herself wheezing. This does not change with dialysis. In April the patient had an extensive evaluation for similar problem. She was in the hospital 11 days. They excluded blood clots lung (V/Q was "intermediate probability for PE", CTA showed no large clot but was difficult to interpret). They told her that she had some "fluid around her heart" but squeegeer and former note states "no pericardial effusion" Echo suggests either fat or effusion. (She had pleural effusion right). No evidence of RV strain or enlargement noted, but was difficult exam. She was discharged in May with these dx: 1. Acute respiratory failure with hypoxemia. 2. End-stage renal disease, on hemodialysis. 3. Persistent hypotension. 4. Hiatal hernia. 5. Acute bronchitis. 6. Hypoparathyroidism. 7. End-stage renal disease, on hemodialysis. 8. Anxiety disorder. 9. Depression. 10. Sinus bradycardia. She has a dialysis catheter R groin. Dialysis is MWF. Depressed. Anemia without evidence of active bruising or bleeding. No headache. No NVD. Not make urine. examined data reviewed due HD M W Fr on HD for 35 years- s/p Parathyroidectomy and 2 transplant Coded Allergies: CEFAZOLIN (Verified Allergy, Unknown, 10/02/10) CIPROFLOXACIN (Verified Allergy, Unknown, 10/02/10) GENTAMICIN (Verified Allergy, Unknown, 10/02/10) LEVOFLOXACIN (Verified Allergy, Unknown, 10/02/10) PENICILLINS (Verified Allergy, Unknown, ITCH, 10/02/10) Assessment/Plan Imp: ESRD Dyspnea / hypoxia Plan: Dialysis ordered Per consultants Jayde for low BP per orders EDUARDO ROSE Jul 12, 2017 14:46
[2017-07-12] MEDS: Midodrine 10mg tab ORAL SCH ×2 (15:06→20:49)
--- NOTE | 2017-07-12 18:58 | Cardiology Progress Note ---
Assessment/Plan Assessment/Plan 1. Low blood pressure readings/hypotension asymptomatic 2. End-stage renal disease, on hemodialysis. 3. Shortness of breath. 4. Hypoxemia 5. sinus ade no pericardial effusion 05/2017 normal cortisol 06/06 arterial duplex showed no upper ext arterial stenosis 05/2017 cxr neg v/q previosuly intermediate probablity repeat echo trop neg ekg no sig st t wave abn Objective Last 24 Hour Vital Signs Date Time Temp Pulse Resp B/P (MAP) Pulse Ox O2 Delivery O2 Flow Rate FiO2 07/12/17 16:00 96.5 73 18 94/57 93 Nasal Cannula 2.0 96.5 07/12/17 16:00 70 07/12/17 12:00 96.7 75 19 116/57 96 Nasal Cannula 2.0 96.7 07/12/17 12:00 77 07/12/17 08:00 96.4 75 19 85/52 95 Nasal Cannula 2.0 96.4 07/12/17 08:00 75 07/12/17 04:00 60 07/12/17 04:00 97.9 64 18 79/48 96 Nasal Cannula 2.0 97.9 07/12/17 00:00 53 07/12/17 00:00 97.3 66 18 94/65 90 Room Air 97.3 07/11/17 20:00 72 07/11/17 20:00 96.8 77 18 95/61 98 Room Air 96.8 07/11/17 19:17 98.0 69 18 113/89 98 Nasal Cannula 2.0 98.0 Intake and Output 07/11/17 07/12/17 19:00 07:00 Intake Total 0 ml 100 ml Balance 0 ml 100 ml Intake Oral 0 ml 100 ml Laboratory Tests Test 07/12/17 07:15 White Blood Count 3.7 K/UL (4.8-10.8) L Red Blood Count 3.52 M/UL (4.20-5.40) L Hemoglobin 11.3 G/DL (12.0-16.0) L Hematocrit 33.3 % (37.0-47.0) L Mean Corpuscular Volume 95 FL (80-99) Mean Corpuscular Hemoglobin 32.2 PG (27.0-31.0) H Mean Corpuscular Hemoglobin Concent 34.0 G/DL (32.0-36.0) Red Cell Distribution Width 16.0 % (11.6-14.8) H Platelet Count 101 K/UL (150-450) L Mean Platelet Volume 8.6 FL (6.5-10.1) Neutrophils (%) (Auto) 47.2 % (45.0-75.0) Lymphocytes (%) (Auto) 36.2 % (20.0-45.0) Monocytes (%) (Auto) 7.1 % (1.0-10.0) Eosinophils (%) (Auto) 8.8 % (0.0-3.0) H Basophils (%) (Auto) 0.7 % (0.0-2.0) Sodium Level 141 MMOL/L (136-145) Potassium Level 4.3 MMOL/L (3.5-5.1) Chloride Level 102 MMOL/L (98-107) Carbon Dioxide Level 24 MMOL/L (21-32) Anion Gap 15 mmol/L (5-15) Blood Urea Nitrogen 56 mg/dL (7-18) H Creatinine 13.1 MG/DL (0.55-1.30) H Estimat Glomerular Filtration Rate 3.6 mL/min (>60) Glucose Level 79 MG/DL (74-106) Calcium Level 8.6 MG/DL (8.5-10.1) Phosphorus Level 4.8 MG/DL (2.5-4.9) Magnesium Level 1.8 MG/DL (1.8-2.4) Total Bilirubin 1.0 MG/DL (0.2-1.0) Aspartate Amino Transf (AST/SGOT) 20 U/L (15-37) Alanine Aminotransferase (ALT/SGPT) 32 U/L (12-78) Alkaline Phosphatase 245 U/L (46-116) H C-Reactive Protein, Quantitative 3.5 mg/dL (0.00-0.90) H Total Protein 7.4 G/DL (6.4-8.2) Albumin 3.4 G/DL (3.4-5.0) Globulin 4.0 g/dL Albumin/Globulin Ratio 0.9 (1.0-2.7) L RUMA RAMÍREZ Jul 12, 2017 18:58
[2017-07-12] MEDS: Sensipar 30mg Tab ORAL SCH (20:49)
--- NOTE | 2017-07-12 21:31 | History and Physical Report ---
DATE OF ADMISSION: 07/11/2017 CHIEF COMPLAINT: The patient is a 52-year-old female, presents with chief complaint of shortness of breath. HISTORY OF PRESENT ILLNESS: Began three to four days prior to admission. The patient began to experience shortness of breath. The patient denies fevers or chills. The patient does have a nonproductive cough. The patient was admitted to [facility] in 04/2017 for similar symptoms. Please refer to discharge summary and History and Physical dictated at that time. The patient presented to [place] emergency room. The patient was admitted for shortness of breath to rule out pneumonia versus fluid overload, secondary to hemodialysis. The patient states the last hemodialysis was 07/09/2017. PAST MEDICAL HISTORY: Significant for: 1. End-stage renal disease, on hemodialysis, every Wednesday, Wednesday, and Wednesday. 2. Anemia of chronic renal disease. 3. Hypertension. 4. Obesity. PAST SURGICAL HISTORY: Significant for: 1. Arteriovenous graft placement. 2. Cholecystectomy. 3. Parathyroidectomy. 4. Carpal tunnel release. 5. Open reduction and internal fixation of left elbow fracture. CURRENT MEDICATIONS: 1. Albuterol metered-dose inhaler two puffs p.o. q.i.d. p.r.n. 2. Sensipar 30 mg p.o. three times weekly. 3. Omeprazole 20 mg p.o. twice daily. 4. Renvela 1600 mg p.o. three times daily. 5. Ambien 10 mg p.o. at bedtime. ALLERGIES: 1. Cefazolin. 2. Ciprofloxacin. 3. Gentamicin. 4. Levaquin. 5. Penicillin. SOCIAL HISTORY: The patient is single and is disabled. The patient denies tobacco or alcohol use. REVIEW OF SYSTEMS: CONSTITUTIONAL: The patient denies fevers or chills. HEENT: The patient denies ear or throat pain. The patient denies headache. CARDIOVASCULAR: The patient denies palpitations or chest pain. CHEST: The patient complains of shortness of breath as above. The patient denies wheezes. ABDOMEN: The patient denies nausea, vomiting, diarrhea, or constipation. GENITOURINARY: The patient denies dysuria or frequency of urination. NEUROMUSCULAR: The patient denies seizures or generalized weakness. PHYSICAL EXAMINATION: GENERAL: The patient is a well-developed and well-nourished, slightly obese female, in no apparent distress. VITAL SIGNS: Temperature 98.0 degrees, respirations 18, pulse 69, blood pressure 113/89, and pulse oximetry 98% on two liters nasal cannula. HEENT: Eyes, pupils are equal and responsive to light and accommodation. Extraocular movements are intact. NECK: Supple without lymphadenopathy. CHEST: Few scattered rales at bilateral bases. Otherwise, clear to auscultation without wheezes or rales. CARDIOVASCULAR: Regular rate. S1 and S2 normal without murmurs, rubs, or gallops. ABDOMEN: Soft, nontender, and nondistended. Positive bowel sounds. No evidence of hepatosplenomegaly. Currently, no rebound or guarding noted. EXTREMITIES: Negative for clubbing, cyanosis, or edema. RECTAL/GENITAL: Refused. NEUROLOGIC: Cranial nerves II through XII are grossly intact without focal deficits. Motor strength is 5/5 bilaterally. Deep tendon reflexes are 2+ plantar. LABORATORY AND DIAGNOSTIC STUDIES: WBC 4.4, hemoglobin 13.1, hematocrit 40.2, and platelets 136,000. Sodium 144, potassium 4.5, chloride 103, CO2 25, BUN 51, creatinine 12.5, and glucose 100. Troponin normal at 0.0. BNP elevated at 1621. A chest x-ray is pending. ASSESSMENT: This is a 51-year-old female with: 1. Dyspnea. 2. End-stage renal disease. 3. Anemia. 4. Hypertension. 5. Obesity. 6. Congestive heart failure. TREATMENT: 1. Shortness of breath, this may be secondary to congestive heart failure. A Cardiology consultation has been obtained with Dr. Clint Jay. We will follow recommendation of Cardiology. 2. End-stage renal disease. A Nephrology consultation has been obtained with Dr. Conner. The patient will require dialysis today, 07/12/2017. 3. Anemia of chronic disease, stable. 4. Hypertension, the patient is currently normotensive, off antihypertensive medication. 5. Congestive heart failure, this is probably secondary to volume overload. We will await Cardiology consultation by Dr. Jay. Edward Harrell M.D. DR: JACINTO JOB#: [id number] CC:
[2017-07-12] MEDS ORDERED: DiphenhydrAMINE 50mg/ml Inj IVP ONE (22:30)
[2017-07-13] VITALS (7 sets, daily range): BP systolic 64–99; BP diastolic 36–55
[2017-07-13] MEDS: Nephrovite tab (Rena-Vite) ORAL SCH (08:58)
[2017-07-13] MEDS: Midodrine 10mg tab ORAL SCH ×3 (08:58→17:44)
[2017-07-13] MEDS: Heparin 5000 units/ml inj SUBQ SCH ×2 (09:00→21:00)
[2017-07-13 09:44] LABS: HEMATOCRIT 38.4 % (37.0-47.0); HEMOGLOBIN 12.5 G/DL (12.0-16.0); MEAN CORPUSCULAR VOLUME 95 FL (80-99); PLATELET COUNT 98 K/UL (150-450); RED BLOOD COUNT 4.05 M/UL (4.20-5.40); RED CELL DISTRIBUTION WIDTH 15.9 % (11.6-14.8); WHITE BLOOD COUNT 3.6 K/UL (4.8-10.8)
[2017-07-13 10:04] LABS: ALANINE AMINOTRANSFERASE 29 U/L (12-78); ALBUMIN 3.8 G/DL (3.4-5.0); ALBUMIN/GLOBULIN RATIO 0.8 (1.0-2.7); ALKALINE PHOSPHATASE 263 U/L (46-116); ANION GAP 11 mmol/L (5-15); ASPARTATE AMINO TRANSFERASE 17 U/L (15-37); BILIRUBIN,TOTAL 1.1 MG/DL (0.2-1.0); BLOOD UREA NITROGEN 34 mg/dL (7-18); CARBON DIOXIDE 32 MMOL/L (21-32); CHLORIDE 98 MMOL/L (98-107); CHOLESTEROL 136 MG/DL (< 200); CREATININE 9.1 MG/DL (0.55-1.30); GAMMA GLUTAMYL TRANSPEPTIDASE 113 U/L (5-85); HDL CHOLESTEROL 58 MG/DL (40-60); PHOSPHORUS 3.3 MG/DL (2.5-4.9); POTASSIUM 3.4 MMOL/L (3.5-5.1); SODIUM 141 MMOL/L (136-145); TRIGLYCERIDES 92 MG/DL (30-150)
[2017-07-13 10:30] LABS: BILIRUBIN,DIRECT 0.3 MG/DL (0.0-0.3)
--- NOTE | 2017-07-13 14:32 | Cardiology Progress Note ---
Assessment/Plan Assessment/Plan 1. Low blood pressure readings/hypotension asymptomatic chronic 2. End-stage renal disease, on hemodialysis. 3. Shortness of breath. 4. Hypoxemia 5. sinus ade 6. 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 Large hiatal hernia no pericardial effusion 05/2017, non on prelim echo today normal cortisol 06/06 arterial duplex showed no upper ext arterial stenosis 05/2017 cxr neg now v/q previously intermediate probability seem she had a ct scan had showed extensive central venous pulm occlusive dz with collaterals trop neg ekg no change since prior i am not sure why she has the " extensive central venoocclusive disease. No large vessel central pulmonary and was demonstrated, but peripheral pulmonary emboli cannot be excluded with any confidence." should be seen by pulm to evlauate the need for anticoagualtion i wonder if the presence of large hiatal hernia has a contribution to the finding i do not find any records for comparison at [facility] but had similar findingon a prior ctpa in 04/2017 as well here may even be related to prior dialysis catheters??? full note dicated Objective Last 24 Hour Vital Signs Date Time Temp Pulse Resp B/P (MAP) Pulse Ox O2 Delivery O2 Flow Rate FiO2 07/13/17 12:00 46 07/13/17 11:24 97.3 70 18 79/45 97 Nasal Cannula 2.0 97.3 07/13/17 08:00 97.0 86 18 74/42 95 Nasal Cannula 2.0 97.0 07/13/17 08:00 67 07/13/17 05:05 71 07/13/17 04:00 97.6 74 19 99/55 94 Nasal Cannula 2.0 97.6 07/13/17 02:51 98.1 70 20 64/36 Room Air 98.1 07/13/17 02:10 Room Air 07/13/17 00:00 73 07/13/17 00:00 96.9 71 19 96/44 90 Nasal Cannula 2.0 96.9 07/12/17 22:30 98.0 61 20 106/31 Room Air 98.0 07/12/17 22:30 Room Air 07/12/17 20:00 59 07/12/17 20:00 97.1 68 19 96/52 92 Nasal Cannula 2.0 97.1 07/12/17 16:00 96.5 73 18 94/57 93 Nasal Cannula 2.0 96.5 07/12/17 16:00 70 Intake and Output 07/12/17 07/13/17 19:00 07:00 Intake Total 232 ml 116 ml Output Total 1586 ml Balance 232 ml -1470 ml Intake Oral 232 ml 116 ml Output Hemodialysis UF 1586 ml # Voids 1 # Bowel Movements 1 Laboratory Tests Test 07/13/17 09:10 White Blood Count 3.6 K/UL (4.8-10.8) L Red Blood Count 4.05 M/UL (4.20-5.40) L Hemoglobin 12.5 G/DL (12.0-16.0) Hematocrit 38.4 % (37.0-47.0) Mean Corpuscular Volume 95 FL (80-99) Mean Corpuscular Hemoglobin 30.9 PG (27.0-31.0) Mean Corpuscular Hemoglobin Concent 32.6 G/DL (32.0-36.0) Red Cell Distribution Width 15.9 % (11.6-14.8) H Platelet Count 98 K/UL (150-450) L Mean Platelet Volume 9.0 FL (6.5-10.1) Neutrophils (%) (Auto) % (45.0-75.0) Lymphocytes (%) (Auto) % (20.0-45.0) Monocytes (%) (Auto) % (1.0-10.0) Eosinophils (%) (Auto) % (0.0-3.0) Basophils (%) (Auto) % (0.0-2.0) Differential Total Cells Counted 100 Neutrophils % (Manual) 57 % (45-75) Lymphocytes % (Manual) 26 % (20-45) Monocytes % (Manual) 9 % (1-10) Eosinophils % (Manual) 6 % (0-3) H Basophils % (Manual) 2 % (0-2) Band Neutrophils 0 % (0-8) Platelet Estimate Decreased L Platelet Morphology Normal Anisocytosis 1+ Sodium Level 141 MMOL/L (136-145) Potassium Level 3.4 MMOL/L (3.5-5.1) L Chloride Level 98 MMOL/L (98-107) Carbon Dioxide Level 32 MMOL/L (21-32) Anion Gap 11 mmol/L (5-15) Blood Urea Nitrogen 34 mg/dL (7-18) H Creatinine 9.1 MG/DL (0.55-1.30) H Estimat Glomerular Filtration Rate 5.5 mL/min (>60) Glucose Level 83 MG/DL (74-106) Uric Acid 4.3 MG/DL (2.6-7.2) Calcium Level 9.0 MG/DL (8.5-10.1) Phosphorus Level 3.3 MG/DL (2.5-4.9) Magnesium Level 1.8 MG/DL (1.8-2.4) Total Bilirubin 1.1 MG/DL (0.2-1.0) H Direct Bilirubin 0.3 MG/DL (0.0-0.3) Gamma Glutamyl Transpeptidase 113 U/L (5-85) H Aspartate Amino Transf (AST/SGOT) 17 U/L (15-37) Alanine Aminotransferase (ALT/SGPT) 29 U/L (12-78) Alkaline Phosphatase 263 U/L (46-116) H Troponin I 0.000 ng/mL (0.000-0.056) Pro-B-Type Natriuretic Peptide 1385 pg/mL (0-125) H Total Protein 8.3 G/DL (6.4-8.2) H Albumin 3.8 G/DL (3.4-5.0) Globulin 4.5 g/dL Albumin/Globulin Ratio 0.8 (1.0-2.7) L Triglycerides Level 92 MG/DL (30-150) Cholesterol Level 136 MG/DL (< 200) LDL Cholesterol 58 mg/dL (<100) HDL Cholesterol 58 MG/DL (40-60) Cholesterol/HDL Ratio 2.3 (3.3-4.4) L Thyroid Stimulating Hormone (TSH) 0.949 uiU/mL (0.358-3.740) RUMA RAMÍREZ Jul 13, 2017 14:32
--- NOTE | 2017-07-13 14:38 | Nephrology Progress Note ---
Assessment/Plan Problem List: (1) Hypoparathyroidism (2) ESRD (end stage renal disease) on dialysis (3) Hypotension Assessment ESRD Dyspnea / hypoxia Hypotension s/p Parathyroid surgery Plan \Plan: Dialysis ordered for tomorrow again Per consultants Midodrine for low BP per orders Subjective ROS Limited/Unobtainable: No Constitutional: Reports: malaise Objective Objective Last 24 Hour Vital Signs Date Time Temp Pulse Resp B/P (MAP) Pulse Ox O2 Delivery O2 Flow Rate FiO2 07/13/17 12:00 46 07/13/17 11:24 97.3 70 18 79/45 97 Nasal Cannula 2.0 97.3 07/13/17 08:00 97.0 86 18 74/42 95 Nasal Cannula 2.0 97.0 07/13/17 08:00 67 07/13/17 05:05 71 07/13/17 04:00 97.6 74 19 99/55 94 Nasal Cannula 2.0 97.6 07/13/17 02:51 98.1 70 20 64/36 Room Air 98.1 07/13/17 02:10 Room Air 07/13/17 00:00 73 07/13/17 00:00 96.9 71 19 96/44 90 Nasal Cannula 2.0 96.9 07/12/17 22:30 98.0 61 20 106/31 Room Air 98.0 07/12/17 22:30 Room Air 07/12/17 20:00 59 07/12/17 20:00 97.1 68 19 96/52 92 Nasal Cannula 2.0 97.1 07/12/17 16:00 96.5 73 18 94/57 93 Nasal Cannula 2.0 96.5 07/12/17 16:00 70 Intake and Output 07/12/17 07/13/17 19:00 07:00 Intake Total 232 ml 116 ml Output Total 1586 ml Balance 232 ml -1470 ml Intake Oral 232 ml 116 ml Output Hemodialysis UF 1586 ml # Voids 1 # Bowel Movements 1 Laboratory Tests 07/13/17 09:10: White Blood Count 3.6L, Red Blood Count 4.05L, Hemoglobin 12.5, Hematocrit 38.4 , Mean Corpuscular Volume 95, Mean Corpuscular Hemoglobin 30.9, Mean Corpuscular Hemoglobin Concent 32.6, Red Cell Distribution Width 15.9H, Platelet Count 98L, Mean Platelet Volume 9.0, Neutrophils (%) (Auto) , Lymphocytes (%) (Auto) , Monocytes (%) (Auto) , Eosinophils (%) (Auto) , Basophils (%) (Auto) , Differential Total Cells Counted 100, Neutrophils % ( Manual) 57, Lymphocytes % (Manual) 26, Monocytes % (Manual) 9, Eosinophils % ( Manual) 6H, Basophils % (Manual) 2, Band Neutrophils 0, Platelet Estimate DecreasedL, Platelet Morphology Normal, Anisocytosis 1+, Sodium Level 141, Potassium Level 3.4L, Chloride Level 98, Carbon Dioxide Level 32, Anion Gap 11, Blood Urea Nitrogen 34H, Creatinine 9.1H, Estimat Glomerular Filtration Rate 5.5 , Glucose Level 83, Uric Acid 4.3, Calcium Level 9.0, Phosphorus Level 3.3, Magnesium Level 1.8, Total Bilirubin 1.1H, Direct Bilirubin 0.3, Gamma Glutamyl Transpeptidase 113H, Aspartate Amino Transf (AST/SGOT) 17, Alanine Aminotransferase (ALT/SGPT) 29, Alkaline Phosphatase 263H, Troponin I 0.000, Pro -B-Type Natriuretic Peptide 1385H, Total Protein 8.3H, Albumin 3.8, Globulin 4.5 , Albumin/Globulin Ratio 0.8L, Triglycerides Level 92, Cholesterol Level 136, LDL Cholesterol 58, HDL Cholesterol 58, Cholesterol/HDL Ratio 2.3L, Thyroid Stimulating Hormone (TSH) 0.949 Height (Feet): 5 Height (Inches): 6.00 Weight (Pounds): 187 General Appearance: no apparent distress Cardiovascular: regular rhythm Respiratory/Chest: decreased breath sounds Abdomen: soft EDUARDO ROSE Jul 13, 2017 14:37
--- NOTE | 2017-07-13 15:28 | Cardiology Report ---
APPROVED REPORT EXAM: Two-dimensional and M-mode echocardiogram with Doppler and color Doppler. INDICATION Chest Pain M-Mode DIMENSIONS IVSd0.7 (0.7-1.1cm)Left Atrium (MM)2.9 (1.6-4.0cm) LVDd4.3 (3.5-5.6cm)Aortic Root2.6 (2.0-3.7cm) PWd0.8 (0.7-1.1cm)Aortic Cusp Exc.1.7 (1.5-2.0cm) LVDs3.2 (2.5-4.0cm) PWs0.9 cm Technically difficult study due to poor acoustical windows. Normal left ventricular chamber size, systolic function and wall motion. Left ventricular ejection fraction estimated to be 60-65%. No evidence of left ventricular hypertrophy. No evidence of pericardial or pleural effusion. All other cardiac chamber sizes are within normal limits. Focal aortic valve sclerosis with adequate cusp excursion. Thickened mitral valve leaflets with normal excursion. Mild mitral annulus and aortic root calcification. Pulmonic valve not well visualized. Normal tricuspid valve structure. IVC is normal in size and collapsible with respiration. A color flow and spectral Doppler study was performed and revealed: No aortic regurgitation. No mitral regurgitation. Mitral diastolic velocities suggest reduced left ventricular relaxation c/w diastolic dysfunction grade 1. No tricuspid regurgitation.
--- NOTE | 2017-07-13 16:10 | Physician Query ---
--------- THIS DOCUMENT IS A PERMANENT PART OF THE MEDICAL RECORD --------- PLEASE COMPLETE THE FORM BEFORE SIGNING Dear SHAVONNE Kurtz Date 07/13/17 Clinic Md Associate/CDS [facility] Associate[facility] Phone #: [phone] Exercise your independent professional judgment when responding to query. Questions asked do not imply particular answer is desired or expected. We greatly appreciate your clarification on this issue. Clinical Documentation States: H & P (07/12/17) Dyspnea Shortness of breath, this may be secondary to congestive heart failure. End-stage renal disease Clinical Findings Show: RR:18, 18, 18 O2 flow rate 2.0 l/min through nasal cannula Pulse/Oximetry: 94, 98, 98, 90 Please clarify if the patient had any of the following conditions based on the above clinical findings: []Respiratory Failure [X] Acute [] Chronic (on home O2) []Acute on Chronic [] Acute Respiratory Distress [] Unable to determine [] Other: Condition Present on Admission: [X] Yes [] No []Clinically Undeterminable Please also document in your Progress Notes and/or Discharge Summary and indicate if the condition was present on admission. Dr. SHAVONNE UGALDE Date/Time MTDD
--- NOTE | 2017-07-13 16:20 | Internal Med Progress Note ---
Subjective Date of Service: Jul 13, 2017 Physician Name Edward Ugalde Attending Physician Ash Henley MD Current Medications Medications (Trade) Dose Ordered Sig/Marcos Route PRN Reason Start Time Stop Time Status Last Admin Dose Admin Cinacalcet (Sensipar) 30 mg MON-WED-WED ORAL 07/12/17 21:00 08/11/17 20:59 07/12/17 20:49 Heparin Sodium (Porcine) (Heparin 5000 units/ml) 5,000 units EVERY 12 HOURS SUBQ 07/12/17 09:00 08/11/17 08:59 Midodrine (Pro-Amatine) 10 mg THREE TIMES A DAY ORAL 07/12/17 15:00 08/11/17 14:59 07/13/17 13:04 Pantoprazole (Protonix) 40 mg DAILY ORAL 07/12/17 09:00 08/11/17 08:59 07/13/17 08:58 Sevelamer Carbonate (Renvela) 1,600 mg THREE TIMES A DAY ORAL 07/12/17 09:00 08/11/17 08:59 07/13/17 13:04 Vitamin B Complex/ Vit C/Folic Acid (Nephrovite) 1 tab DAILY ORAL 07/12/17 09:00 08/11/17 08:59 07/13/17 08:58 Zolpidem Tartrate (Ambien) 5 mg HSPRN PRN ORAL Insomnia 07/11/17 22:15 07/18/17 22:14 Allergies: Coded Allergies: CEFAZOLIN (Verified Allergy, Unknown, 10/02/10) CIPROFLOXACIN (Verified Allergy, Unknown, 10/02/10) GENTAMICIN (Verified Allergy, Unknown, 10/02/10) LEVOFLOXACIN (Verified Allergy, Unknown, 10/02/10) PENICILLINS (Verified Allergy, Unknown, ITCH, 10/02/10) Uncoded Allergies: CONTRAST MEDIA (Adverse Reaction, Mild, MILD ITCHING AFTER CONTRAST MEDIA, 04/30/17) ROS Limited/Unobtainable: No Constitutional: Reports: no symptoms HEENT: Reports: no symptoms Cardiovascular: Reports: no symptoms Respiratory: Reports: shortness of breath Gastrointestinal/Abdominal: Reports: no symptoms Genitourinary: Reports: no symptoms Neurologic/Psychiatric: Reports: no symptoms Subjective 52 YO F admitted with shortness of breath. Now CHF and volume overload. Cover for Int Med-Dr Henley. Objective Last Vital Signs Date Time Temp Pulse Resp B/P (MAP) Pulse Ox O2 Delivery O2 Flow Rate FiO2 07/13/17 16:00 97.3 48 18 81/48 96 Nasal Cannula 2.0 97.3 General Appearance: WD/WN, no apparent distress, alert EENT: PERRL/EOMI, normal ENT inspection, pharynx normal Neck: non-tender, normal alignment, supple, normal inspection Cardiovascular: normal peripheral pulses, normal rate, regular rhythm, no gallop/murmur, no JVD Respiratory/Chest: chest wall non-tender, respiratory distress, crackles/rales , rhonchi - bilaterally, expiratory wheezing Abdomen: normal bowel sounds, non tender, soft, no organomegaly, no mass Extremities: normal range of motion, non-tender Neurologic: rag shredder II-XII grossly normal, no motor/sensory deficits Skin: normal pigmentation, warm/dry Laboratory Tests Test 07/13/17 09:10 White Blood Count 3.6 K/UL (4.8-10.8) L Red Blood Count 4.05 M/UL (4.20-5.40) L Hemoglobin 12.5 G/DL (12.0-16.0) Hematocrit 38.4 % (37.0-47.0) Mean Corpuscular Volume 95 FL (80-99) Mean Corpuscular Hemoglobin 30.9 PG (27.0-31.0) Mean Corpuscular Hemoglobin Concent 32.6 G/DL (32.0-36.0) Red Cell Distribution Width 15.9 % (11.6-14.8) H Platelet Count 98 K/UL (150-450) L Mean Platelet Volume 9.0 FL (6.5-10.1) Neutrophils (%) (Auto) % (45.0-75.0) Lymphocytes (%) (Auto) % (20.0-45.0) Monocytes (%) (Auto) % (1.0-10.0) Eosinophils (%) (Auto) % (0.0-3.0) Basophils (%) (Auto) % (0.0-2.0) Differential Total Cells Counted 100 Neutrophils % (Manual) 57 % (45-75) Lymphocytes % (Manual) 26 % (20-45) Monocytes % (Manual) 9 % (1-10) Eosinophils % (Manual) 6 % (0-3) H Basophils % (Manual) 2 % (0-2) Band Neutrophils 0 % (0-8) Platelet Estimate Decreased L Platelet Morphology Normal Anisocytosis 1+ Sodium Level 141 MMOL/L (136-145) Potassium Level 3.4 MMOL/L (3.5-5.1) L Chloride Level 98 MMOL/L (98-107) Carbon Dioxide Level 32 MMOL/L (21-32) Anion Gap 11 mmol/L (5-15) Blood Urea Nitrogen 34 mg/dL (7-18) H Creatinine 9.1 MG/DL (0.55-1.30) H Estimat Glomerular Filtration Rate 5.5 mL/min (>60) Glucose Level 83 MG/DL (74-106) Uric Acid 4.3 MG/DL (2.6-7.2) Calcium Level 9.0 MG/DL (8.5-10.1) Phosphorus Level 3.3 MG/DL (2.5-4.9) Magnesium Level 1.8 MG/DL (1.8-2.4) Total Bilirubin 1.1 MG/DL (0.2-1.0) H Direct Bilirubin 0.3 MG/DL (0.0-0.3) Gamma Glutamyl Transpeptidase 113 U/L (5-85) H Aspartate Amino Transf (AST/SGOT) 17 U/L (15-37) Alanine Aminotransferase (ALT/SGPT) 29 U/L (12-78) Alkaline Phosphatase 263 U/L (46-116) H Troponin I 0.000 ng/mL (0.000-0.056) Pro-B-Type Natriuretic Peptide 1385 pg/mL (0-125) H Total Protein 8.3 G/DL (6.4-8.2) H Albumin 3.8 G/DL (3.4-5.0) Globulin 4.5 g/dL Albumin/Globulin Ratio 0.8 (1.0-2.7) L Triglycerides Level 92 MG/DL (30-150) Cholesterol Level 136 MG/DL (< 200) LDL Cholesterol 58 mg/dL (<100) HDL Cholesterol 58 MG/DL (40-60) Cholesterol/HDL Ratio 2.3 (3.3-4.4) L Thyroid Stimulating Hormone (TSH) 0.949 uiU/mL (0.358-3.740) Intake and Output 07/12/17 07/13/17 19:00 07:00 Intake Total 232 ml 116 ml Output Total 1586 ml Balance 232 ml -1470 ml Intake Oral 232 ml 116 ml Output Hemodialysis UF 1586 ml # Voids 1 # Bowel Movements 1 Assessment/Plan Problem List: (1) Anemia (2) Dyspnea (3) ESRD (end stage renal disease) on dialysis Assessment & Plan: S/P hemodialysis 07/12; next hemodialysis 07/14/17. See nephrology note. (4) HTN (hypertension) (5) CHF (congestive heart failure) Assessment & Plan: See cardiology note. (6) Pulmonary embolism Assessment & Plan: Chronic-await pulmonary and hematology consult. ?need for anticoagulation?-see cardiology note 07/13 EDWARD UGALDE Jul 13, 2017 16:20
--- NOTE | 2017-07-13 22:18 | Pulmonolgy Critical Care Note ---
Critical Care - Asmt/Plan Assessment/Plan: Patient presents with dyspnea on exertion. Has been getting worse over the last week. She denies any chest pain. She states her dialysis been adequate. She hasn't had any productive cough. She denies prior clot or calf pain. She does not have home oxygen. She has not heard herself wheezing. This does not change with dialysis. In April the patient had an extensive evaluation for similar problem. She was in the hospital 11 days. They excluded blood clots lung (V/Q was "intermediate probability for PE", CTA showed no large clot but was difficult to interpret). They told her that she had some "fluid around her heart" but certified ethical hacker note states "no pericardial effusion" Echo suggests either fat or effusion. (She had pleural effusion right). No evidence of RV strain or enlargement noted, but was difficult exam. She was discharged in May with these dx: 1. Acute respiratory failure with hypoxemia. 2. End-stage renal disease, on hemodialysis. 3. Persistent hypotension. 4. Hiatal hernia. 5. Acute bronchitis. 6. Hypoparathyroidism. 7. End-stage renal disease, on hemodialysis. 8. Anxiety disorder. 9. Depression. 10. Sinus bradycardia. She has a dialysis catheter R groin. Dialysis is MWF. Depressed. Anemia without evidence of active bruising or bleeding. No headache. No NVD. Not make urine. Allergies: Coded Allergies: CEFAZOLIN (Verified Allergy, Unknown, 10/02/10) CIPROFLOXACIN (Verified Allergy, Unknown, 10/02/10) GENTAMICIN (Verified Allergy, Unknown, 10/02/10) LEVOFLOXACIN (Verified Allergy, Unknown, 10/02/10) PENICILLINS (Verified Allergy, Unknown, ITCH, 10/02/10) Uncoded Allergies: CONTRAST MEDIA (Adverse Reaction, Mild, MILD ITCHING AFTER CONTRAST MEDIA, 04/30/17) Patient History Past Medical History: see triage record Past Surgical History: other - fistulae, shunts, parathyroidectomy Social History: Denies: smoking Social History Narrative home with home health Last Menstrual Period: pt states 20 years ago Now: No Reviewed Nursing Documentation: PMH: Agreed; PSxH: Agreed Nursing Documentation-PMH Past Medical History: No History, Except For Hx Cardiac Problems: Yes Hx Pacemaker: Yes Hx Asthma: Yes Hx Diabetes: Yes Hx Cancer: No Hx Gastrointestinal Problems: Yes Hx Dialysis: Yes - M,W,F Hx Neurological Problems: No Review of Systems All Other Systems: negative except mentioned in HPI Physical Exam Vital Signs Date Time Temp Pulse Resp B/P (MAP) Pulse Ox O2 Delivery O2 Flow Rate FiO2 07/11/17 15:44 97.7 77 18 96/58 94 Nasal Cannula 2.0 97.7 Sp02 EP Interpretation: reviewed, abnormal - interpreted as low by me General Appearance: well appearing, no apparent distress, GCS 15 Head: normocephalic Eyes: bilateral eye conjunctivae pale ENT: moist mucus membranes Neck: supple Respiratory: chest non-tender, lungs clear, normal breath sounds Cardiovascular #1: regular rate, rhythm Cardiovascular #2: 2+ radial (R) Gastrointestinal: normal inspection, normal bowel sounds, non tender, no mass, non-distended, other - R dialysis catheter, overweight Musculoskeletal: back normal, gait/station normal, normal range of motion Neurologic: alert, oriented x3, grossly normal Psychiatric: depressed affect Skin: warm/dry, other - multiple surgical clips Impression/Plan: Primary Impression: Hypoxia possibly related to volume overload vs atelectasis vs AV shunting related to prior HD access Low chance significant Pulmonary Embolism given recent negative work up, will need assessment of Pulmonary Artery Pressur carline Echocardiogram and shunt study ESRD (end stage renal disease) on dialysis Central Venous compromise probably complicating previous thrombosis complicating central venous access for HD Shortness of breath Aortic and Mitral Valve schlerosis with Diastolic Dysfunction Patient presents with hypoxia and dyspnea on exertion. She is significantly hypoxemic. She is an extremely complicated patient with multiple co- morbidities. There is no evidence of bronchospasm with her exam. Differential includes a pulmonary embolus, pneumonia, venous shunt, pulmonary edema and fluid overload, pulmonary hypertension and fibrosis amongst others. Evaluation with EKG, CTA chest, CXR and labs. Patient is treated with oxygen. Consideration for anticoagulation. Her blood pressure is low (she states chronically) and we are unable to use nitrates. IV access is difficult. The patient's refusing to allow me to start an IV in her neck or in her groin. We were unable to perform the CT angiogram. EKG shows right axis with markedly decreased voltage. This could be consistent with a pericardial effusion. Chest x-ray no infiltrates. Heart size is normal. She has stents in arteries in her arms and also surgical clips. Labs are significant for normal white count and troponin. BNP is slightly elevated. Evidence of end-stage renal disease however other electrolytes are essentially normal. Elevated lactic acid. Laboratory Tests Test 07/11/17 17:05 07/11/17 18:55 White Blood Count 4.4 K/UL (4.8-10.8) L Red Blood Count 4.20 M/UL (4.20-5.40) Hemoglobin 13.1 G/DL (12.0-16.0) Hematocrit 40.2 % (37.0-47.0) Mean Corpuscular Volume 96 FL (80-99) Mean Corpuscular Hemoglobin 31.2 PG (27.0-31.0) H Mean Corpuscular Hemoglobin Concent 32.6 G/DL (32.0-36.0) Red Cell Distribution Width 15.7 % (11.6-14.8) H Platelet Count 136 K/UL (150-450) L Mean Platelet Volume 11.2 FL (6.5-10.1) H Neutrophils (%) (Auto) 54.9 % (45.0-75.0) Lymphocytes (%) (Auto) 29.3 % (20.0-45.0) Monocytes (%) (Auto) 8.9 % (1.0-10.0) Eosinophils (%) (Auto) 5.5 % (0.0-3.0) H Basophils (%) (Auto) 1.5 % (0.0-2.0) Prothrombin Time 12.0 SEC (9.30-11.50) H Prothrombin Time INR 1.1 (0.9-1.1) PTT 27 SEC (23-33) Sodium Level 144 MMOL/L (136-145) Potassium Level 4.5 MMOL/L (3.5-5.1) Chloride Level 103 MMOL/L (98-107) Carbon Dioxide Level 25 MMOL/L (21-32) Anion Gap 16 mmol/L (5-15) H Blood Urea Nitrogen 51 mg/dL (7-18) H Creatinine 12.5 MG/DL (0.55-1.30) H Estimate Glomerular Filtration Rate 3.8 mL/min (>60) Glucose Level 100 MG/DL (74-106) Lactic Acid Level 3.10 mmol/L (0.66-2.22) H 1.50 mmol/L (0.66-2.22) Calcium Level 10.0 MG/DL (8.5-10.1) Total Bilirubin 0.8 MG/DL (0.2-1.0) Aspartate Amino Transferase (AST) 24 U/L (15-37) Alanine Aminotransferase (ALT) 35 U/L (12-78) Alkaline Phosphatase 296 U/L (46-116) H Total Creatine Kinase 26 U/L (26-308) Troponin I 0.000 ng/mL (0.000-0.056) Pro-B-Type Natriuretic Peptide 1621 pg/mL (0-125) H Total Protein 8.6 G/DL (6.4-8.2) H Albumin 4.0 G/DL (3.4-5.0) Globulin 4.6 g/dL Albumin/Globulin Ratio 0.9 (1.0-2.7) L EKG Diagnostic Results Rate: normal Rhythm: NSR ST Segments: no acute changes - decreased voltage Rhythm Strip Diag. Results EP Interpretation: yes Rhythm: NSR, no PVC's, no ectopy Diagnostic Results Chest X-Ray Diagnostic Results : Chest X-Ray Ordered: Yes # of Views/Limited/Complete: 1 View Indication: Shortness of Breath EP Interpretation: Yes Interpretation: no consolidation, no effusion, no pneumothorax Impression: Other Electronically Signed by: Electronically signed by Sly Calvillo MD Lower extremity duplex negative VQ Scan w/ Lung Perfusion Indication: Chest pain Technique: A ventilation/perfusion scan was performed. Ventilation was performed utilizing 40 mCi of Technetium 99m-DTPA. Perfusion was performed with 5.1 mCi of technetium 99m-MAA injected intravenously. Multiple side by side projections obtained. Findings: Possible moderate-sized segmental mismatch seen on some views not definitively seen on others. Given these inconsistencies, difficult to categorize as low or high probability. CTA Chest w Contrast ndication: Chest pain Technique: IV administration nonionic contrast. Spiral acquisitions obtained from the lung bases to the lung apices. Multiplanar and 3-D reconstructions were generated. Total dose length product 749.29 mGycm. CTDIvol(s) 22.41 mGy. Dose reduction achieved using automated exposure control Comparison: 04/30/2017 Findings: Opacification of the the pulmonary arteries is suboptimal, and only large central pulmonary emboli can't be excluded with any confidence. Again demonstrated is evidence of extensive central venoocclusive disease, with extensive mediastinal, paraspinous, and chest wall collaterals. Very unusual collaterals are seen in the pulmonary chente The thoracic aorta is well-opacified, and there is no evidence of thoracic aortic aneurysm or dissection. Normal caliber pulmonary artery. No evidence of right ventricular dilatation. Interval development of a [id number] right pleural effusion. There is trace left pleural fluid as well. There is groundglass opacity at the right lung base, probably representing compressive atelectatic changes. There may be mild interstitial congestion. There is a very large hiatal hernia, contains approximately half of the stomach. Some calcifications are seen in the periphery of the thyroid. No mediastinal or hilar mass or adenopathy. There is a groin approach dialysis catheter tip seen in the inferior vena cava, tip at the orifice. Extensive calcifications are seen in both breasts. No axillary or chest wall mass or adenopathy demonstrated. The bones are unremarkable. Bilateral breast calcifications surgical clips and vascular stents are seen in the bilateral axillae The included upper abdominal anatomy is unremarkable. Impression: Poor quality opacification of the pulmonary arteries. Probably related to the presence of extensive central venoocclusive disease. No large vessel central pulmonary and was demonstrated, but peripheral pulmonary emboli cannot be excluded with any confidence. No evidence of right heart strain Interim development of a moderate size right pleural effusion. There is resultant increased compressive atelectasis of the right lung. Extensive central venoocclusive disease, resulting in extensive and somewhat unusual mediastinal and chest wall collaterals. Mild interstitial congestion Very large hiatal hernia, containing approximately half of the stomach. Critical Care - Objective Last 24 Hour Vital Signs Date Time Temp Pulse Resp B/P (MAP) Pulse Ox O2 Delivery O2 Flow Rate FiO2 07/13/17 16:00 97.3 48 18 81/48 96 Nasal Cannula 2.0 97.3 07/13/17 16:00 50 07/13/17 12:00 46 07/13/17 11:24 97.3 70 18 79/45 97 Nasal Cannula 2.0 97.3 07/13/17 08:00 97.0 86 18 74/42 95 Nasal Cannula 2.0 97.0 07/13/17 08:00 67 07/13/17 05:05 71 07/13/17 04:00 97.6 74 19 99/55 94 Nasal Cannula 2.0 97.6 07/13/17 02:51 98.1 70 20 64/36 Room Air 98.1 07/13/17 02:10 Room Air 07/13/17 00:00 73 07/13/17 00:00 96.9 71 19 96/44 90 Nasal Cannula 2.0 96.9 07/12/17 22:30 98.0 61 20 106/31 Room Air 98.0 07/12/17 22:30 Room Air Critical Care - Subjective ROS Limited/Unobtainable: Yes Condition: improving IV Access: peripheral EKG Rhythm: Sinus Rhythm I&O: Intake and Output 07/12/17 07/13/17 19:00 07:00 Intake Total 232 ml 116 ml Output Total 1586 ml Balance 232 ml -1470 ml Intake Oral 232 ml 116 ml Output Hemodialysis UF 1586 ml # Voids 1 # Bowel Movements 1 Sly Waller M.D. Jul 13, 2017 22:18
[2017-07-14] VITALS: BP 89/53
[2017-07-14] MEDS: Zolpidem 5mg tab ORAL PRN (00:28)
--- NOTE | 2017-07-14 03:15 | Consultation ---
DATE OF CONSULTATION: 07/13/2017 NOTE: POOR AUDIO NOTE: INCOMPLETE DICTATION CARDIOLOGY CONSULTATION CONSULTING PHYSICIAN: Clint Jay M.D. REFERRING PHYSICIAN: Edward Harrell M.D. REASON FOR REFERRAL: Shortness of breath. HISTORY OF PRESENT ILLNESS: This is a middle-aged female who is admitted to the hospital because of hypoxemia. She has history of end-stage renal disease. She has shortness of breath for the past two to three months worse to the point that she had to hold on to things to walk around. There is no PND. She uses two pillows for comfort. There is no dizziness or lightheadedness on standing. No heart pounding or palpitation. No pain, pressure, tightness, or heaviness in her chest. PAST MEDICAL HISTORY: Extensive history of bronchitis, recently end-stage renal disease, systemic hypertension, morbid obesity, anemia of chronic disease, bacteremia, multiple PermCath and fistulas, cholecystectomy, parathyroidectomy, carpal tunnel syndrome, open reduction and internal fixation of left elbow, renal transplant x2, both of which have apparently failed, history of peritoneal dialysis. During last hospitalization, she was noted to have hypotension but that was rather nonsymptomatic. She has shortness of breath, hypoxemia, and sinus bradycardia. She had an echocardiogram, at that time which showed no pericardial effusion, normal cortisol, no bacteremia. Arterial duplex showed no upper extremity arterial stenosis. Her blood pressure remained low, but she was asymptomatic. Troponin was negative. She had a V/Q scan that was intermediate probability and reportedly had some kind of allergic reaction to contrast previously. Nevertheless, she indicates her allergic reaction is associated with some kind of pain in the right upper chest wall, not anaphylactic, no hives or wheezing noted. SOCIAL HISTORY: She does not smoke. Does not drink. Does not use drugs. 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 REVIEW OF SYSTEMS: GASTROINTESTINAL: She denies. GENITOURINARY: She does not make any urine. PULMONARY: Denies any coughing or wheezing. CONSTITUTIONAL: No fevers, chills, or night sweats. NEUROLOGICAL: She has some tingling sensation in her lower extremities. PHYSICAL EXAMINATION: GENERAL: Shows to be elderly female, in no respiratory distress. HEENT: Unremarkable. NECK: Supple. No jugular venous distention. LUNGS: Appear to show some decreased breath sounds bilaterally. CARDIAC: Regular rate and rhythm. No heaves or thrills noted. ABDOMEN: Soft and nontender. Positive bowel sounds. EXTREMITIES: There is no clubbing, cyanosis, nor is there any edema. NEUROLOGICAL: She is awake, alert, responsive, and in no apparent respiratory distress. LABORATORY AND DIAGNOSTIC DATA: Telemetry data shows sinus rhythm, sinus tachycardia, and sinus bradycardia, no significant ST-T wave abnormalities. An echocardiogram that was performed, preliminary report, ejection fraction 60% to 65%, mild diastolic relaxation abnormalities. Electrocardiogram shows T-wave inversions in multiple leads and low voltage QRS complexes. In direct comparison, compared to prior EKGs in April those T-wave inversions were all old. Blood tests show white count 3.6, hemoglobin 12.5, and platelet count 98,000. Sodium 141, potassium 3.4, chloride 98, bicarbonate 32, BUN 34, creatinine 9.1, and glucose of 83. Calcium 5.5. 263. Troponin negative at the time of admission. ProBNP is 1385. Total cholesterol 136 . TSH is 0.949. Cardiac enzymes are negative. A chest x-ray performed showed no acute processes. During last hospitalization, the patient had a CT angio, which was poor quality, opacification of pulmonary arteries related to presence of extensive central veno-occlusive disease. No large vessel central pulmonary peripheral emboli cannot be excluded, no evidence of right heart strain, right-sided pleural effusion, increased compressive atelectasis of the right lung, extensive central venous occlusive disease resulted in extensive somewhat unusual mediastinal chest wall collaterals, very large hiatal hernia approximately half of the stomach. Clint Jay M.D. DR: Bairon JOB#: [id number] CC:
[2017-07-14 04:00] VITALS: BP 90/53
[2017-07-14 08:00] VITALS: BP 88/59
[2017-07-14] MEDS: Heparin 5000 units/ml inj SUBQ SCH ×2 (09:00→21:00)
[2017-07-14] MEDS ORDERED: LORazepam 0.5mg tab ORAL PRN (09:00)
--- NOTE | 2017-07-14 09:56 | Nephrology Progress Note ---
Assessment/Plan Problem List: (1) Hypoparathyroidism (2) ESRD (end stage renal disease) on dialysis (3) Hypotension Assessment ESRD Dyspnea / hypoxia Hypotension s/p Parathyroid surgery Plan \Plan: Dialysis ordered for today Per consultants Midodrine for low BP per orders Subjective ROS Limited/Unobtainable: No Constitutional: Reports: malaise Objective Objective Last 24 Hour Vital Signs Date Time Temp Pulse Resp B/P (MAP) Pulse Ox O2 Delivery O2 Flow Rate FiO2 07/14/17 04:00 96.8 66 18 90/53 95 Room Air 96.8 07/14/17 04:00 56 07/14/17 00:00 46 07/14/17 00:00 96.6 55 19 89/53 90 Room Air 96.6 07/13/17 20:00 96.5 62 18 92/54 90 Room Air 96.5 07/13/17 20:00 61 07/13/17 16:00 97.3 48 18 81/48 96 Nasal Cannula 2.0 97.3 07/13/17 16:00 50 07/13/17 12:00 46 07/13/17 11:24 97.3 70 18 79/45 97 Nasal Cannula 2.0 97.3 Intake and Output 07/13/17 07/14/17 19:00 07:00 Intake Total 360 ml 120 ml Output Total 200 ml Balance 360 ml -80 ml Intake Oral 360 ml 120 ml Output Urine Total 200 ml Height (Feet): 5 Height (Inches): 6.00 Weight (Pounds): 187 General Appearance: no apparent distress EDUARDO ROSE 28, 2018 09:56
--- NOTE | 2017-07-14 10:46 | Internal Med Progress Note ---
Subjective Date of Service: Jul 14, 2017 Physician Name Edward Ugalde Attending Physician Ash Henley MD Current Medications Medications (Trade) Dose Ordered Sig/Marcos Route PRN Reason Start Time Stop Time Status Last Admin Dose Admin Cinacalcet (Sensipar) 30 mg MON-WED-WED ORAL 07/12/17 21:00 08/11/17 20:59 07/12/17 20:49 Heparin Sodium (Porcine) (Heparin 5000 units/ml) 5,000 units EVERY 12 HOURS SUBQ 07/12/17 09:00 08/11/17 08:59 Lorazepam (Ativan) 0.5 mg ONCE PRN ORAL PRIOR TO CT SCAN 07/14/17 09:00 07/14/17 21:00 07/14/17 10:24 Midodrine (Pro-Amatine) 10 mg THREE TIMES A DAY ORAL 07/12/17 15:00 08/11/17 14:59 07/13/17 17:44 Pantoprazole (Protonix) 40 mg DAILY ORAL 07/12/17 09:00 08/11/17 08:59 07/13/17 08:58 Sevelamer Carbonate (Renvela) 1,600 mg THREE TIMES A DAY ORAL 07/12/17 09:00 08/11/17 08:59 07/13/17 17:44 Vitamin B Complex/ Vit C/Folic Acid (Nephrovite) 1 tab DAILY ORAL 07/12/17 09:00 08/11/17 08:59 07/13/17 08:58 Zolpidem Tartrate (Ambien) 5 mg HSPRN PRN ORAL Insomnia 07/11/17 22:15 07/18/17 22:14 07/14/17 00:28 Allergies: Coded Allergies: CEFAZOLIN (Verified Allergy, Unknown, 10/02/10) CIPROFLOXACIN (Verified Allergy, Unknown, 10/02/10) GENTAMICIN (Verified Allergy, Unknown, 10/02/10) LEVOFLOXACIN (Verified Allergy, Unknown, 10/02/10) PENICILLINS (Verified Allergy, Unknown, ITCH, 10/02/10) Uncoded Allergies: CONTRAST MEDIA (Adverse Reaction, Mild, MILD ITCHING AFTER CONTRAST MEDIA, 04/30/17) ROS Limited/Unobtainable: No Constitutional: Reports: no symptoms HEENT: Reports: no symptoms Cardiovascular: Reports: no symptoms Respiratory: Reports: shortness of breath Gastrointestinal/Abdominal: Reports: no symptoms Genitourinary: Reports: no symptoms Neurologic/Psychiatric: Reports: no symptoms Subjective 52 YO F admitted with shortness of breath. Now CHF and volume overload. Cover for Int Med-Dr Henley. Await hematology consult. Objective Last Vital Signs Date Time Temp Pulse Resp B/P (MAP) Pulse Ox O2 Delivery O2 Flow Rate FiO2 07/14/17 04:00 96.8 66 18 90/53 95 Room Air 96.8 07/13/17 16:00 2.0 Microbiology Date/Time Source Procedure Growth Status 07/11/17 17:45 Nasal Nares MRSA Culture - Final NO METHICILLIN RESISTANT STAPH AUREUS... Complete Intake and Output 07/13/17 07/14/17 19:00 07:00 Intake Total 360 ml 120 ml Output Total 200 ml Balance 360 ml -80 ml Intake Oral 360 ml 120 ml Output Urine Total 200 ml Objective General Appearance: WD/WN, no apparent distress, alert EENT: PERRL/EOMI, normal ENT inspection, pharynx normal Neck: non-tender, normal alignment, supple, normal inspection Cardiovascular: normal peripheral pulses, normal rate, regular rhythm, no gallop/murmur, no JVD Respiratory/Chest: chest wall non-tender, respiratory distress, crackles/rales , rhonchi - bilaterally, expiratory wheezing Abdomen: normal bowel sounds, non tender, soft, no organomegaly, no mass Extremities: normal range of motion, non-tender Neurologic: straightener gun parts II-XII grossly normal, no motor/sensory deficits Skin: normal pigmentation, warm/dry Assessment/Plan Problem List: (1) Anemia (2) Dyspnea (3) ESRD (end stage renal disease) on dialysis Assessment & Plan: S/P hemodialysis 07/12; next hemodialysis 07/14/17. See nephrology note. (4) HTN (hypertension) (5) CHF (congestive heart failure) Assessment & Plan: See cardiology note. (6) Pulmonary embolism Assessment & Plan: Low probability-see pulmonary consult note. Await hematology consult. ?need for anticoagulation?-see cardiology note 07/13 Status: not improved EDWARD UGALDE Jul 14, 2017 10:45
[2017-07-14 12:00] VITALS: BP 78/45
--- NOTE | 2017-07-14 12:48 | Diagnostic Imaging Report ---
ndication: Dyspnea on exertion, worse over the past week Technique: IV administration nonionic contrast. Spiral acquisitions obtained from the lung bases to the lung apices. Multiplanar and 3-D reconstructions were generated. Total dose length product 815.74 mGycm. CTDIvol(s) 22.91 mGy. Dose reduction achieved using automated exposure control Comparison: 05/22/2017 Findings: Again demonstrated is evidence of extensive central venoocclusive disease, with evidence of occlusion of the superior vena cava and left innominate vein, extensive mediastinal collaterals, less extensive chest wall collaterals. Opacification of the pulmonary arteries is improved from the previous exam. No definite intraluminal filling defects or other findings to suggest acute pulmonary embolus. No evidence of thoracic aortic aneurysm or dissection. Normal classic branching anatomy of the great neck vessels. No pulmonary arterial dilatation. Unusually small right ventricular chamber. There is suggestion of left ventricular muscular hypertrophy. Again demonstrated is a right pleural effusion, which is significantly smaller than on the previous study. There is improved aeration of the right lung, with previously demonstrated basilar consolidation, right lower lobe groundglass opacity and more generalized faint groundglass opacity no longer evident. There is a focal fairly dense nodule with a surrounding penumbra overall measuring approximately 6 mm in diameter in the posterior right upper lobe, image 32 series 9, not definitely evident previously although could have been obscured by surrounding pathology. There is some atelectasis and/or scarring in the posterior medial right lower lobe. Bands of atelectasis or scarring are seen at the left lung base. The left lung is otherwise largely clear. Again demonstrated is a massive hiatal hernia, which contains most of the stomach. Again demonstrated is mild thickening of the distal esophageal wall. No mediastinal or hilar mass or adenopathy. Large calcifications are seen within the breasts bilaterally. The bones are unremarkable. The included upper abdomen demonstrates an inferior vena cava dialysis catheter, tip projecting at the inferior vena cava atrial junction. Impression: No definite evidence of acute pulmonary embolus Extensive central venoocclusive disease with extensive mediastinal and chest wall collaterals along also previously described Since previous exam of 05/22/2017, marked improvement of previously demonstrated right pleural effusion, now only trace pleural fluid present 6 mm right upper lobe nodule, not definitely evident previously, possibly obscured by surrounding previous pathology. If there is significant risk factors for lung carcinoma, short interval follow-up in 6-12 months is recommended. No further follow-up necessary if no significant risk factors Otherwise minimal parenchymal disease, as described, improved from 05/22/2017 Massive hiatal hernia, also previously described Distal esophageal wall thickening, could indicate esophagitis, also demonstrated previously. Transfemoral dialysis catheter noted Breast calcifications, nonspecific The CT scanner at [facility] is accredited by the [employer] and the scans are performed using protocols designed to limit radiation exposure to as low as reasonably achievable to attain images of sufficient resolution adequate for diagnostic evaluation.
[2017-07-14] MEDS: Midodrine 10mg tab ORAL SCH ×3 (13:00→17:54)
[2017-07-14] MEDS: Nephrovite tab (Rena-Vite) ORAL SCH (13:37)
[2017-07-14 16:00] VITALS: BP 88/36
--- NOTE | 2017-07-14 16:16 | Cardiology Report ---
APPROVED REPORT EKG Measurement Heart [id number] Normal sinus rhythm Low voltage QRS T wave abnormality, consider anterior ischemia Prolonged QT Abnormal ECG
--- NOTE | 2017-07-14 19:34 | Cardiology Progress Note ---
Assessment/Plan Assessment/Plan 1. Low blood pressure readings/hypotension asymptomatic chronic 2. End-stage renal disease, on hemodialysis. 3. Shortness of breath. 4. Hypoxemia 5. sinus ade 6. 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 Large hiatal hernia no pericardial effusion 05/2017, non on prelim echo today normal cortisol 06/06 arterial duplex showed no upper ext arterial stenosis 05/2017 cxr neg now v/q previously intermediate probability seem she had a ct scan had showed extensive central venous pulm occlusive dz with collaterals trop neg ekg no change since prior i am not sure why she has the " extensive central venoocclusive disease. No large vessel central pulmonary and was demonstrated, but peripheral pulmonary emboli cannot be excluded with any confidence." should be seen by pulm to evlauate the need for anticoagualtion i wonder if the presence of large hiatal hernia has a contribution to the finding i do not find any records for comparison at [facility] but had similar findingon a prior ctpa in 04/2017 as well here may even be related to prior dialysis catheters??? full note dicated Subjective Cardiovascular: Denies: chest pain Respiratory: Reports: shortness of breath Gastrointestinal/Abdominal: Denies: abdominal pain Genitourinary: Denies: burning Objective Last 24 Hour Vital Signs Date Time Temp Pulse Resp B/P (MAP) Pulse Ox O2 Delivery O2 Flow Rate FiO2 07/14/17 16:00 97.3 58 18 88/36 98 Room Air 97.3 07/14/17 15:58 Room Air 2.0 07/14/17 12:30 Room Air 2.0 07/14/17 12:00 97.5 63 18 78/45 100 Room Air 97.5 07/14/17 12:00 66 07/14/17 08:00 98.3 61 18 88/59 94 Room Air 98.3 07/14/17 08:00 61 07/14/17 04:00 96.8 66 18 90/53 95 Room Air 96.8 07/14/17 04:00 56 07/14/17 00:00 46 07/14/17 00:00 96.6 55 19 89/53 90 Room Air 96.6 07/13/17 20:00 96.5 62 18 92/54 90 Room Air 96.5 07/13/17 20:00 61 General Appearance: alert Neck: supple Cardiovascular: normal rate, regular rhythm Respiratory/Chest: lungs clear Abdomen: normal bowel sounds, non tender, soft Extremities: no swelling Intake and Output 07/13/17 07/14/17 19:00 07:00 Intake Total 360 ml 120 ml Output Total 200 ml Balance 360 ml -80 ml Intake Oral 360 ml 120 ml Output Urine Total 200 ml RUMA RAMÍREZ Jul 14, 2017 19:34
[2017-07-14 20:00] VITALS: BP 77/44
[2017-07-14] MEDS: Sensipar 30mg Tab ORAL SCH (21:10)
--- NOTE | 2017-07-14 23:46 | Pulmonolgy Critical Care Note ---
Critical Care - Asmt/Plan Assessment/Plan: Patient presents with dyspnea on exertion. Has been getting worse over the last week. She denies any chest pain. She states her dialysis been adequate. She hasn't had any productive cough. She denies prior clot or calf pain. She does not have home oxygen. She has not heard herself wheezing. This does not change with dialysis. In April the patient had an extensive evaluation for similar problem. She was in the hospital 11 days. They excluded blood clots lung (V/Q was "intermediate probability for PE", CTA showed no large clot but was difficult to interpret). They told her that she had some "fluid around her heart" but kinesiology internship note states "no pericardial effusion" Echo suggests either fat or effusion. (She had pleural effusion right). No evidence of RV strain or enlargement noted, but was difficult exam. She was discharged in May with these dx: 1. Acute respiratory failure with hypoxemia. 2. End-stage renal disease, on hemodialysis. 3. Persistent hypotension. 4. Hiatal hernia. 5. Acute bronchitis. 6. Hypoparathyroidism. 7. End-stage renal disease, on hemodialysis. 8. Anxiety disorder. 9. Depression. 10. Sinus bradycardia. She has a dialysis catheter R groin. Dialysis is MWF. Depressed. Anemia without evidence of active bruising or bleeding. No headache. No NVD. Not make urine. Allergies: Coded Allergies: CEFAZOLIN (Verified Allergy, Unknown, 10/02/10) CIPROFLOXACIN (Verified Allergy, Unknown, 10/02/10) GENTAMICIN (Verified Allergy, Unknown, 10/02/10) LEVOFLOXACIN (Verified Allergy, Unknown, 10/02/10) PENICILLINS (Verified Allergy, Unknown, ITCH, 10/02/10) Uncoded Allergies: CONTRAST MEDIA (Adverse Reaction, Mild, MILD ITCHING AFTER CONTRAST MEDIA, 04/30/17) Patient History Past Medical History: see triage record Past Surgical History: other - fistulae, shunts, parathyroidectomy Social History: Denies: smoking Social History Narrative home with home health Last Menstrual Period: pt states 20 years ago Now: No Reviewed Nursing Documentation: PMH: Agreed; PSxH: Agreed Nursing Documentation-PMH Past Medical History: No History, Except For Hx Cardiac Problems: Yes Hx Pacemaker: Yes Hx Asthma: Yes Hx Diabetes: Yes Hx Cancer: No Hx Gastrointestinal Problems: Yes Hx Dialysis: Yes - M,W,F Hx Neurological Problems: No Review of Systems All Other Systems: negative except mentioned in HPI Physical Exam Vital Signs Date Time Temp Pulse Resp B/P (MAP) Pulse Ox O2 Delivery O2 Flow Rate FiO2 07/11/17 15:44 97.7 77 18 96/58 94 Nasal Cannula 2.0 97.7 Sp02 EP Interpretation: reviewed, abnormal - interpreted as low by me General Appearance: well appearing, no apparent distress, GCS 15 Head: normocephalic Eyes: bilateral eye conjunctivae pale ENT: moist mucus membranes Neck: supple Respiratory: chest non-tender, lungs clear, normal breath sounds Cardiovascular #1: regular rate, rhythm Cardiovascular #2: 2+ radial (R) Gastrointestinal: normal inspection, normal bowel sounds, non tender, no mass, non-distended, other - R dialysis catheter, overweight Musculoskeletal: back normal, gait/station normal, normal range of motion Neurologic: alert, oriented x3, grossly normal Psychiatric: depressed affect Skin: warm/dry, other - multiple surgical clips Impression/Plan: Primary Impression: Hypoxia possibly related to volume overload vs atelectasis vs AV shunting related to prior HD access Low chance significant Pulmonary Embolism given recent negative work up, will need assessment of Pulmonary Artery Pressure on Echocardiogram (with bubble) and shunt study ESRD (end stage renal disease) on dialysis Central Venous compromise probably complicating previous thrombosis complicating central venous access for HD Shortness of breath Aortic and Mitral Valve schlerosis with Diastolic Dysfunction Latest CT Chest: No definite evidence of acute pulmonary embolus - would defer decision on anticoaghulation to Hematology Consult, no Pulmonary Indication. Extensive central venoocclusive disease with extensive mediastinal and chest wall collaterals - probably complicating previous Dialysis Access Patient presents with hypoxia and dyspnea on exertion (6 MWT pending). She is significantly hypoxemic. She is an extremely complicated patient with multiple co-morbidities. There is no evidence of bronchospasm with her exam. Differential includes a pulmonary embolus, pneumonia, venous shunt, pulmonary edema and fluid overload, pulmonary hypertension and fibrosis amongst others. Evaluation with EKG, CTA chest, CXR and labs. Patient is treated with oxygen. Her blood pressure is low (she states chronically) and we are unable to use nitrates. IV access is difficult. The patient's refusing to allow me to start an IV in her neck or in her groin. We were unable to perform the CT angiogram. EKG shows right axis with markedly decreased voltage. This could be consistent with a pericardial effusion. Chest x-ray no infiltrates. Heart size is normal. She has stents in arteries in her arms and also surgical clips. Labs are significant for normal white count and troponin. BNP is slightly elevated. Evidence of end-stage renal disease however other electrolytes are essentially normal. Elevated lactic acid. Laboratory Tests Test 07/11/17 17:05 07/11/17 18:55 White Blood Count 4.4 K/UL (4.8-10.8) L Red Blood Count 4.20 M/UL (4.20-5.40) Hemoglobin 13.1 G/DL (12.0-16.0) Hematocrit 40.2 % (37.0-47.0) Mean Corpuscular Volume 96 FL (80-99) Mean Corpuscular Hemoglobin 31.2 PG (27.0-31.0) H Mean Corpuscular Hemoglobin Concent 32.6 G/DL (32.0-36.0) Red Cell Distribution Width 15.7 % (11.6-14.8) H Platelet Count 136 K/UL (150-450) L Mean Platelet Volume 11.2 FL (6.5-10.1) H Neutrophils (%) (Auto) 54.9 % (45.0-75.0) Lymphocytes (%) (Auto) 29.3 % (20.0-45.0) Monocytes (%) (Auto) 8.9 % (1.0-10.0) Eosinophils (%) (Auto) 5.5 % (0.0-3.0) H Basophils (%) (Auto) 1.5 % (0.0-2.0) Prothrombin Time 12.0 SEC (9.30-11.50) H Prothrombin Time INR 1.1 (0.9-1.1) PTT 27 SEC (23-33) Sodium Level 144 MMOL/L (136-145) Potassium Level 4.5 MMOL/L (3.5-5.1) Chloride Level 103 MMOL/L (98-107) Carbon Dioxide Level 25 MMOL/L (21-32) Anion Gap 16 mmol/L (5-15) H Blood Urea Nitrogen 51 mg/dL (7-18) H Creatinine 12.5 MG/DL (0.55-1.30) H Estimate Glomerular Filtration Rate 3.8 mL/min (>60) Glucose Level 100 MG/DL (74-106) Lactic Acid Level 3.10 mmol/L (0.66-2.22) H 1.50 mmol/L (0.66-2.22) Calcium Level 10.0 MG/DL (8.5-10.1) Total Bilirubin 0.8 MG/DL (0.2-1.0) Aspartate Amino Transferase (AST) 24 U/L (15-37) Alanine Aminotransferase (ALT) 35 U/L (12-78) Alkaline Phosphatase 296 U/L (46-116) H Total Creatine Kinase 26 U/L (26-308) Troponin I 0.000 ng/mL (0.000-0.056) Pro-B-Type Natriuretic Peptide 1621 pg/mL (0-125) H Total Protein 8.6 G/DL (6.4-8.2) H Albumin 4.0 G/DL (3.4-5.0) Globulin 4.6 g/dL Albumin/Globulin Ratio 0.9 (1.0-2.7) L EKG Diagnostic Results Rate: normal Rhythm: NSR ST Segments: no acute changes - decreased voltage Rhythm Strip Diag. Results EP Interpretation: yes Rhythm: NSR, no PVC's, no ectopy Diagnostic Results Chest X-Ray Diagnostic Results : Chest X-Ray Ordered: Yes # of Views/Limited/Complete: 1 View Indication: Shortness of Breath EP Interpretation: Yes Interpretation: no consolidation, no effusion, no pneumothorax Impression: Other Electronically Signed by: Electronically signed by Sly Calvillo MD Lower extremity duplex negative VQ Scan w/ Lung Perfusion Indication: Chest pain Technique: A ventilation/perfusion scan was performed. Ventilation was performed utilizing 40 mCi of Technetium 99m-DTPA. Perfusion was performed with 5.1 mCi of technetium 99m-MAA injected intravenously. Multiple side by side projections obtained. Findings: Possible moderate-sized segmental mismatch seen on some views not definitively seen on others. Given these inconsistencies, difficult to categorize as low or high probability. CTA Chest w Contrast ndication: Chest pain Technique: IV administration nonionic contrast. Spiral acquisitions obtained from the lung bases to the lung apices. Multiplanar and 3-D reconstructions were generated. Total dose length product 749.29 mGycm. CTDIvol(s) 22.41 mGy. Dose reduction achieved using automated exposure control Comparison: 04/30/2017 Findings: Opacification of the the pulmonary arteries is suboptimal, and only large central pulmonary emboli can't be excluded with any confidence. Again demonstrated is evidence of extensive central venoocclusive disease, with extensive mediastinal, paraspinous, and chest wall collaterals. Very unusual collaterals are seen in the pulmonary chente The thoracic aorta is well-opacified, and there is no evidence of thoracic aortic aneurysm or dissection. Normal caliber pulmonary artery. No evidence of right ventricular dilatation. Interval development of a [id number] right pleural effusion. There is trace left pleural fluid as well. There is groundglass opacity at the right lung base, probably representing compressive atelectatic changes. There may be mild interstitial congestion. There is a very large hiatal hernia, contains approximately half of the stomach. Some calcifications are seen in the periphery of the thyroid. No mediastinal or hilar mass or adenopathy. There is a groin approach dialysis catheter tip seen in the inferior vena cava, tip at the orifice. Extensive calcifications are seen in both breasts. No axillary or chest wall mass or adenopathy demonstrated. The bones are unremarkable. Bilateral breast calcifications surgical clips and vascular stents are seen in the bilateral axillae The included upper abdominal anatomy is unremarkable. Impression: Poor quality opacification of the pulmonary arteries. Probably related to the presence of extensive central venoocclusive disease. No large vessel central pulmonary and was demonstrated, but peripheral pulmonary emboli cannot be excluded with any confidence. No evidence of right heart strain Interim development of a moderate size right pleural effusion. There is resultant increased compressive atelectasis of the right lung. Extensive central venoocclusive disease, resulting in extensive and somewhat unusual mediastinal and chest wall collaterals. Mild interstitial congestion Very large hiatal hernia, containing approximately half of the stomach. Repeat CT Chest: 07/14/2017 o definite evidence of acute pulmonary embolus Extensive central venoocclusive disease with extensive mediastinal and chest wall collaterals along also previously described Since previous exam of 05/22/2017, marked improvement of previously demonstrated right pleural effusion, now only trace pleural fluid present 6 mm right upper lobe nodule, not definitely evident previously, possibly obscured by surrounding previous pathology. If there is significant risk factors for lung carcinoma, short interval follow-up in 6-12 months is recommended. No further follow-up necessary if no significant risk factors Otherwise minimal parenchymal disease, as described, improved from 05/22/2017 Massive hiatal hernia, also previously described Distal esophageal wall thickening, could indicate esophagitis, also demonstrated previously. Transfemoral dialysis catheter noted Critical Care - Objective Last 24 Hour Vital Signs Date Time Temp Pulse Resp B/P (MAP) Pulse Ox O2 Delivery O2 Flow Rate FiO2 07/14/17 20:00 97.3 82 21 77/44 92 Nasal Cannula 2.0 97.3 07/14/17 20:00 70 07/14/17 16:00 97.3 58 18 88/36 98 Room Air 97.3 07/14/17 15:58 Room Air 2.0 07/14/17 12:30 Room Air 2.0 07/14/17 12:00 97.5 63 18 78/45 100 Room Air 97.5 07/14/17 12:00 66 07/14/17 08:00 98.3 61 18 88/59 94 Room Air 98.3 07/14/17 08:00 61 07/14/17 04:00 96.8 66 18 90/53 95 Room Air 96.8 07/14/17 04:00 56 07/14/17 00:00 46 07/14/17 00:00 96.6 55 19 89/53 90 Room Air 96.6 Critical Care - Subjective ROS Limited/Unobtainable: Yes Condition: improving IV Access: peripheral EKG Rhythm: Sinus Rhythm I&O: Intake and Output 07/13/17 07/14/17 19:00 07:00 Intake Total 360 ml 120 ml Output Total 200 ml Balance 360 ml -80 ml Intake Oral 360 ml 120 ml Output Urine Total 200 ml Sly Waller M.D. Jul 14, 2017 23:46
[2017-07-15] VITALS: BP 77/46
[2017-07-15 04:00] VITALS: BP 85/55
[2017-07-15] MEDS: Midodrine 10mg tab ORAL SCH ×3 (08:17→17:20)
[2017-07-15] MEDS: Nephrovite tab (Rena-Vite) ORAL SCH (08:17)
--- NOTE | 2017-07-15 08:46 | Consultation ---
DATE OF CONSULTATION: 07/14/2017 NOTE: POOR AUDIO HEMATOLOGY/ONCOLOGY CONSULTATION CONSULTING PHYSICIAN: Byron Wade M.D. REQUESTING PHYSICIAN: Edward Harrell M.D. REASON FOR CONSULTATION: Evaluation of potential pulmonary embolism. IDENTIFICATION DATA: The patient is a pleasant 52-year-old female with past medical history, which is significant for end-stage renal disease 3 times a week as well as chronic kidney injury, hypertension, and obesity, at this time presents to the hospital with a chief complaint of shortness of breath. For the last three to four days, she began to experience shortness of breath. Denies any fevers or chills. have potential pulmonary embolism. Hematology Service was consulted for further evaluation and treatment. The patient does have a history of anemia and has had several scans before and has been ruled out for pulmonary embolism. PAST MEDICAL HISTORY: 1. End-stage renal disease, on hemodialysis. 2. Anemia of chronic disease. 3. Hypertension. 4. Obesity. PAST SURGICAL HISTORY: AV shunt placement, cholecystectomy, parathyroidectomy, and carpal tunnel release. CURRENT MEDICATIONS: Albuterol, Sensipar, omeprazole, Renvela, and Ambien. ALLERGIES: Cefazolin, ciprofloxacin, gentamicin, Levaquin, and penicillin. SOCIAL HISTORY: Single. No alcohol, tobacco, or illicit drug use. REVIEW OF SYSTEMS: CONSTITUTIONAL: No fever, chills, or night sweats. SKIN: No rashes, bumps, or itching. HEENT: No headache, hearing or vision changes. BREASTS: No lumps, pain, or discharge. PULMONARY: No cough or sputum. Complains of shortness of breath. GASTROINTESTINAL: No nausea, vomiting, or diarrhea. GENITOURINARY: No dysuria, frequency, or urgency. MUSCULOSKELETAL: No joint swelling, muscle pain, or trauma. PHYSICAL EXAMINATION: VITAL SIGNS: Reviewed. GENERAL: No acute distress. PULMONARY: Decreased breath sounds. CARDIOVASCULAR: Regular rate. No S3 or S4. ABDOMEN: Soft, nontender, and nondistended. EXTREMITIES: No cyanosis, swelling, or edema noted. LABORATORY DATA: WBC 3.6, hemoglobin 12.5, and platelet count of 98,000. Lifetime summary has been reviewed. Chemistry reviewed as well. No hepatitis panel or HIV noted. We will send for hepatitis panel and HIV at this time. IMAGING: Imaging has been thus far reviewed. Specifically, 2D echo imaging has been noted. CTA from 05/22/2017 reviewed as well. Poor opacification of pulmonary arteries, probably related to extensive central venous occlusive disease. No large vessels , but peripheral pulmonary emboli cannot be excluded without any . ASSESSMENT AND RECOMMENDATIONS: 1. Thrombocytopenia. We will send out for hepatitis and human immunodeficiency virus panel at this time. Imaging of the abdomen has been reviewed. 2. Extensive venous occlusive disease noted. Troponin negative. EKG negative. Peripheral emboli cannot be excluded. At this time, given thrombocytopenia, I do not recommend the use of anticoagulation and closely monitor for underlying causes. 3. Anemia due to underlying end-stage renal disease, on Epogen as needed. Thus far, chemistry has been reviewed. Lifelong chemistry has been reviewed as well. Ferritin does not require any iron. 4. Shortness of breath, likely secondary to venous occlusive disease, which is chronic in nature. No large clot noted, therefore, unknown this would benefit from anticoagulation. 5. Acute respiratory failure and hypoxemia. 6. End-stage renal disease, on hemodialysis. 7. hypertension. 8. Hiatal hernia. 9. Bronchitis . Closely monitor. I appreciate the consultation. Byron Wade M.D. DR: TANYA JOB#: [id number] CC:
[2017-07-15] MEDS: Heparin 5000 units/ml inj SUBQ SCH ×2 (09:00→20:45)
--- NOTE | 2017-07-15 10:38 | Nephrology Progress Note ---
Assessment/Plan Problem List: (1) Hypoparathyroidism (2) ESRD (end stage renal disease) on dialysis (3) Hypotension Assessment ESRD Dyspnea / hypoxia Hypotension s/p Parathyroid surgery Plan \Plan: Dialysis next 07/16 Per consultants Midodrine for low BP per orders Subjective ROS Limited/Unobtainable: No Objective Objective Last 24 Hour Vital Signs Date Time Temp Pulse Resp B/P (MAP) Pulse Ox O2 Delivery O2 Flow Rate FiO2 07/15/17 08:00 56 07/15/17 04:00 59 07/15/17 04:00 97.9 67 20 85/55 100 Nasal Cannula 5.0 97.9 07/15/17 00:00 63 07/15/17 00:00 97.0 62 20 77/46 100 Nasal Cannula 5.0 97.0 07/14/17 20:00 97.3 82 21 77/44 92 Nasal Cannula 2.0 97.3 07/14/17 20:00 70 07/14/17 16:00 97.3 58 18 88/36 98 Room Air 97.3 07/14/17 15:58 Room Air 2.0 07/14/17 12:30 Room Air 2.0 07/14/17 12:00 97.5 63 18 78/45 100 Room Air 97.5 07/14/17 12:00 66 Intake and Output 07/14/17 07/15/17 19:00 07:00 Intake Total 360 ml Output Total 2900 ml 0 ml Balance -2540 ml 0 ml Intake Oral 360 ml Output Urine Total 0 ml Hemodialysis UF 2900 ml Height (Feet): 5 Height (Inches): 6.00 Weight (Pounds): 195 General Appearance: no apparent distress EDUARDO ROSE Jul 15, 2017 10:38
[2017-07-15 12:02] VITALS: BP 81/40
[2017-07-15 16:00] VITALS: BP 84/41
--- NOTE | 2017-07-15 18:43 | Internal Med Progress Note ---
Subjective Physician Name Ash Henley Attending Physician Ash Henley MD Current Medications Medications (Trade) Dose Ordered Sig/Marcos Route PRN Reason Start Time Stop Time Status Last Admin Dose Admin Acetaminophen (Tylenol) 650 mg Q6H PRN ORAL Mild Pain/Temp > 100.5 07/14/17 18:15 08/13/17 18:14 07/14/17 18:37 Cinacalcet (Sensipar) 30 mg WED-WED-WED ORAL 07/12/17 21:00 08/11/17 20:59 07/14/17 21:10 Diphenhydramine HCl (Benadryl) 25 mg Q6H PRN ORAL Itching 07/14/17 18:15 08/13/17 18:14 Heparin Sodium (Porcine) (Heparin 5000 units/ml) 5,000 units EVERY 12 HOURS SUBQ 07/12/17 09:00 08/11/17 08:59 Midodrine (Pro-Amatine) 10 mg THREE TIMES A DAY ORAL 07/12/17 15:00 08/11/17 14:59 07/15/17 17:20 Pantoprazole (Protonix) 40 mg DAILY ORAL 07/12/17 09:00 08/11/17 08:59 07/15/17 08:17 Sevelamer Carbonate (Renvela) 1,600 mg THREE TIMES A DAY ORAL 07/12/17 09:00 08/11/17 08:59 07/15/17 17:20 Vitamin B Complex/ Vit C/Folic Acid (Nephrovite) 1 tab DAILY ORAL 07/12/17 09:00 08/11/17 08:59 07/15/17 08:17 Zolpidem Tartrate (Ambien) 5 mg HSPRN PRN ORAL Insomnia 07/11/17 22:15 07/18/17 22:14 07/14/17 00:28 Allergies: Coded Allergies: CEFAZOLIN (Verified Allergy, Unknown, 10/02/10) CIPROFLOXACIN (Verified Allergy, Unknown, 10/02/10) GENTAMICIN (Verified Allergy, Unknown, 10/02/10) LEVOFLOXACIN (Verified Allergy, Unknown, 10/02/10) PENICILLINS (Verified Allergy, Unknown, ITCH, 10/02/10) Uncoded Allergies: CONTRAST MEDIA (Adverse Reaction, Mild, MILD ITCHING AFTER CONTRAST MEDIA, 04/30/17) Subjective awake, alert, responsive, less SOB, No CP Objective Last Vital Signs Date Time Temp Pulse Resp B/P (MAP) Pulse Ox O2 Delivery O2 Flow Rate FiO2 07/15/17 16:00 97.5 62 18 84/41 90 Nasal Cannula 5.0 97.5 Intake and Output 07/14/17 07/15/17 19:00 07:00 Intake Total 360 ml Output Total 2900 ml 0 ml Balance -2540 ml 0 ml Intake Oral 360 ml Output Urine Total 0 ml Hemodialysis UF 2900 ml Objective General: No acute distress, awake and alert HEENT: NCAT, sclera anicteric, PERRL, EOMI. Neck: Supple, no significant jugular venous distention, Lungs: Good inspiratory effort, clear to auscultation bilaterally, no Wheeze or Rales. Heart: Regular rate and rhythm, normal S1/S2, no murmurs Abdomen: soft, nontender, nondistended. Normoactive bowel sounds. Obesity, Right Femoral dialysis cath Extremities: No Cyanosis , clubbing or edema. Neuro: A&O x 3, Able to move all extremities Skin: warm, no rashes Psych: Normal mood and affect Assessment/Plan Assessment/Plan 1. Acute respiratory failure with hypoxemia. 2. End-stage renal disease, on hemodialysis. 3. Persistent hypotension. 4. Hiatal hernia. 5. Acute bronchitis. 6. Hypoparathyroidism. 7. End-stage renal disease, on hemodialysis. 8. Anxiety disorder. 9. Depression. 10. Sinus bradycardia. Plan: DC Planning for AM PT Mobility Monitor Labs 2D Echo: Technically difficult study due to poor acoustical windows. Normal left ventricular chamber size, systolic function and wall motion. Left ventricular ejection fraction estimated to be 60-65%. No evidence of left ventricular hypertrophy. No evidence of pericardial or pleural effusion. All other cardiac chamber sizes are within normal limits. Focal aortic valve sclerosis with adequate cusp excursion. Thickened mitral valve leaflets with normal excursion. Mild mitral annulus and aortic root calcification. Pulmonic valve not well visualized. Normal tricuspid valve structure. IVC is normal in size and collapsible with respiration. A color flow and spectral Doppler study was performed and revealed: No aortic regurgitation. No mitral regurgitation. Mitral diastolic velocities suggest reduced left ventricular relaxation c/w diastolic dysfunction grade 1. No tricuspid regurgitation. Ash Henley MD Jul 15, 2017 18:43
--- NOTE | 2017-07-15 19:20 | Cardiology Report ---
APPROVED REPORT EKG Measurement Heart [id number] Normal sinus rhythm Rightward axis Pulmonary disease pattern Nonspecific T wave abnormality Abnormal ECG
[2017-07-15 20:00] VITALS: BP 92/54
--- NOTE | 2017-07-15 20:02 | Cardiology Progress Note ---
Assessment/Plan Assessment/Plan 1. Low blood pressure readings/hypotension asymptomatic chronic 2. End-stage renal disease, on hemodialysis. 3. Shortness of breath. 4. Hypoxemia 5. sinus ade 6. 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 Large hiatal hernia no pericardial effusion 05/2017, non on prelim echo today normal cortisol 06/06 arterial duplex showed no upper ext arterial stenosis 05/2017 cxr neg now v/q previously intermediate probability seem she had a ct scan had showed extensive central venous pulm occlusive dz with collaterals trop neg ekg no change since prior pulmonary noted "Hypoxia possibly related to volume overload vs atelectasis vs AV shunting related to prior HD access" not fel tot need anticoagualtion from pulm view point i wonder if the presence of large hiatal hernia has a contribution to the finding oxygen her ant likey at home? Subjective Cardiovascular: Denies: chest pain, lightheadedness Respiratory: Reports: shortness of breath Gastrointestinal/Abdominal: Denies: abdominal pain Genitourinary: Reports: no symptoms, burning Objective Last 24 Hour Vital Signs Date Time Temp Pulse Resp B/P (MAP) Pulse Ox O2 Delivery O2 Flow Rate FiO2 07/15/17 16:00 97.5 62 18 84/41 90 Nasal Cannula 5.0 97.5 07/15/17 16:00 50 07/15/17 12:02 97.3 69 18 81/40 89 Nasal Cannula 5.0 97.3 07/15/17 12:00 65 07/15/17 08:00 56 07/15/17 04:00 59 07/15/17 04:00 97.9 67 20 85/55 100 Nasal Cannula 5.0 97.9 07/15/17 00:00 63 07/15/17 00:00 97.0 62 20 77/46 100 Nasal Cannula 5.0 97.0 General Appearance: no apparent distress, alert Neck: supple Cardiovascular: normal rate, regular rhythm Respiratory/Chest: lungs clear Abdomen: normal bowel sounds, non tender, soft Extremities: no swelling Intake and Output 07/14/17 07/15/17 19:00 07:00 Intake Total 360 ml Output Total 2900 ml 0 ml Balance -2540 ml 0 ml Intake Oral 360 ml Output Urine Total 0 ml Hemodialysis UF 2900 ml RUMA RAMÍREZ Jul 15, 2017 20:02
--- NOTE | 2017-07-15 20:22 | Pulmonolgy Critical Care Note ---
Critical Care - Asmt/Plan Assessment/Plan: Patient presents with dyspnea on exertion. Has been getting worse over the last week. She denies any chest pain. She states her dialysis been adequate. She hasn't had any productive cough. She denies prior clot or calf pain. She does not have home oxygen. She has not heard herself wheezing. This does not change with dialysis. In April the patient had an extensive evaluation for similar problem. She was in the hospital 11 days. They excluded blood clots lung (V/Q was "intermediate probability for PE", CTA showed no large clot but was difficult to interpret). They told her that she had some "fluid around her heart" but wrist liner note states "no pericardial effusion" Echo suggests either fat or effusion. (She had pleural effusion right). No evidence of RV strain or enlargement noted, but was difficult exam. She was discharged in May with these dx: 1. Acute respiratory failure with hypoxemia. 2. End-stage renal disease, on hemodialysis. 3. Persistent hypotension. 4. Hiatal hernia. 5. Acute bronchitis. 6. Hypoparathyroidism. 7. End-stage renal disease, on hemodialysis. 8. Anxiety disorder. 9. Depression. 10. Sinus bradycardia. She has a dialysis catheter R groin. Dialysis is MWF. Depressed. Anemia without evidence of active bruising or bleeding. No headache. No NVD. Not make urine. Allergies: Coded Allergies: CEFAZOLIN (Verified Allergy, Unknown, 10/02/10) CIPROFLOXACIN (Verified Allergy, Unknown, 10/02/10) GENTAMICIN (Verified Allergy, Unknown, 10/02/10) LEVOFLOXACIN (Verified Allergy, Unknown, 10/02/10) PENICILLINS (Verified Allergy, Unknown, ITCH, 10/02/10) Uncoded Allergies: CONTRAST MEDIA (Adverse Reaction, Mild, MILD ITCHING AFTER CONTRAST MEDIA, 04/30/17) Patient History Past Medical History: see triage record Past Surgical History: other - fistulae, shunts, parathyroidectomy Social History: Denies: smoking Social History Narrative home with home health Last Menstrual Period: pt states 20 years ago Now: No Reviewed Nursing Documentation: PMH: Agreed; PSxH: Agreed Nursing Documentation-PMH Past Medical History: No History, Except For Hx Cardiac Problems: Yes Hx Pacemaker: Yes Hx Asthma: Yes Hx Diabetes: Yes Hx Cancer: No Hx Gastrointestinal Problems: Yes Hx Dialysis: Yes - M,W,F Hx Neurological Problems: No Review of Systems All Other Systems: negative except mentioned in HPI Physical Exam Vital Signs VSSstable, still; requiring 4-5 L O2 Sp02 EP Interpretation: reviewed, abnormal - interpreted as low by me General Appearance: well appearing, no apparent distress, GCS 15 Head: normocephalic Eyes: bilateral eye conjunctivae pale ENT: moist mucus membranes Neck: supple Respiratory: chest non-tender, lungs clear, normal breath sounds Cardiovascular #1: regular rate, rhythm Cardiovascular #2: 2+ radial (R) Gastrointestinal: normal inspection, normal bowel sounds, non tender, no mass, non-distended, other - R dialysis catheter, overweight Musculoskeletal: back normal, gait/station normal, normal range of motion Neurologic: alert, oriented x3, grossly normal Psychiatric: depressed affect Skin: warm/dry, other - multiple surgical clips Impression/Plan: Primary Impression: Hypoxia possibly related to volume overload vs atelectasis vs AV shunting related to prior HD access, will need home oxygen Low chance significant Pulmonary Embolism given recent negative work up, will need assessment of Pulmonary Artery Pressure on Echocardiogram (with bubble) and shunt study ESRD (end stage renal disease) on dialysis Central Venous compromise probably complicating previous thrombosis complicating central venous access for HD Shortness of breath Aortic and Mitral Valve sclerosis with Diastolic Dysfunction Latest CT Chest: No definite evidence of acute pulmonary embolus - would defer decision on anticoaghulation to Hematology Consult, no Pulmonary Indication. Extensive central venoocclusive disease with extensive mediastinal and chest wall collaterals - probably complicating previous Dialysis Access Patient presents with hypoxia and dyspnea on exertion (6 MWT pending). She is significantly hypoxemic. She is an extremely complicated patient with multiple co-morbidities. There is no evidence of bronchospasm with her exam. Differential includes a pulmonary embolus, pneumonia, venous shunt, pulmonary edema and fluid overload, pulmonary hypertension and fibrosis amongst others. Evaluation with EKG, CTA chest, CXR and labs. Patient is treated with oxygen. Her blood pressure is low (she states chronically) and we are unable to use nitrates. IV access is difficult. The patient's refusing to allow me to start an IV in her neck or in her groin. We were unable to perform the CT angiogram. EKG shows right axis with markedly decreased voltage. This could be consistent with a pericardial effusion. Chest x-ray no infiltrates. Heart size is normal. She has stents in arteries in her arms and also surgical clips. Labs are significant for normal white count and troponin. BNP is slightly elevated. Evidence of end-stage renal disease however other electrolytes are essentially normal. Elevated lactic acid. . EKG Diagnostic Results Rate: normal Rhythm: NSR ST Segments: no acute changes - decreased voltage Rhythm Strip Diag. Results EP Interpretation: yes Rhythm: NSR, no PVC's, no ectopy Diagnostic Results Chest X-Ray Diagnostic Results : Chest X-Ray Ordered: Yes # of Views/Limited/Complete: 1 View Indication: Shortness of Breath EP Interpretation: Yes Interpretation: no consolidation, no effusion, no pneumothorax Impression: Other Electronically Signed by: Electronically signed by Sly Calvillo MD Lower extremity duplex negative VQ Scan w/ Lung Perfusion Indication: Chest pain Technique: A ventilation/perfusion scan was performed. Ventilation was performed utilizing 40 mCi of Technetium 99m-DTPA. Perfusion was performed with 5.1 mCi of technetium 99m-MAA injected intravenously. Multiple side by side projections obtained. Findings: Possible moderate-sized segmental mismatch seen on some views not definitively seen on others. Given these inconsistencies, difficult to categorize as low or high probability. CTA Chest w Contrast ndication: Chest pain Technique: IV administration nonionic contrast. Spiral acquisitions obtained from the lung bases to the lung apices. Multiplanar and 3-D reconstructions were generated. Total dose length product 749.29 mGycm. CTDIvol(s) 22.41 mGy. Dose reduction achieved using automated exposure control Comparison: 04/30/2017 Findings: Opacification of the the pulmonary arteries is suboptimal, and only large central pulmonary emboli can't be excluded with any confidence. Again demonstrated is evidence of extensive central venoocclusive disease, with extensive mediastinal, paraspinous, and chest wall collaterals. Very unusual collaterals are seen in the pulmonary chente The thoracic aorta is well-opacified, and there is no evidence of thoracic aortic aneurysm or dissection. Normal caliber pulmonary artery. No evidence of right ventricular dilatation. Interval development of a [id number] right pleural effusion. There is trace left pleural fluid as well. There is groundglass opacity at the right lung base, probably representing compressive atelectatic changes. There may be mild interstitial congestion. There is a very large hiatal hernia, contains approximately half of the stomach. Some calcifications are seen in the periphery of the thyroid. No mediastinal or hilar mass or adenopathy. There is a groin approach dialysis catheter tip seen in the inferior vena cava, tip at the orifice. Extensive calcifications are seen in both breasts. No axillary or chest wall mass or adenopathy demonstrated. The bones are unremarkable. Bilateral breast calcifications surgical clips and vascular stents are seen in the bilateral axillae The included upper abdominal anatomy is unremarkable. Impression: Poor quality opacification of the pulmonary arteries. Probably related to the presence of extensive central venoocclusive disease. No large vessel central pulmonary and was demonstrated, but peripheral pulmonary emboli cannot be excluded with any confidence. No evidence of right heart strain Interim development of a moderate size right pleural effusion. There is resultant increased compressive atelectasis of the right lung. Extensive central venoocclusive disease, resulting in extensive and somewhat unusual mediastinal and chest wall collaterals. Mild interstitial congestion Very large hiatal hernia, containing approximately half of the stomach. Repeat CT Chest: 07/14/2017 o definite evidence of acute pulmonary embolus Extensive central venoocclusive disease with extensive mediastinal and chest wall collaterals along also previously described Since previous exam of 05/22/2017, marked improvement of previously demonstrated right pleural effusion, now only trace pleural fluid present 6 mm right upper lobe nodule, not definitely evident previously, possibly obscured by surrounding previous pathology. If there is significant risk factors for lung carcinoma, short interval follow-up in 6-12 months is recommended. No further follow-up necessary if no significant risk factors Otherwise minimal parenchymal disease, as described, improved from 05/22/2017 Massive hiatal hernia, also previously described Distal esophageal wall thickening, could indicate esophagitis, also demonstrated previously. Transfemoral dialysis catheter noted Echocardiogram: Normal left ventricular chamber size, systolic function and wall motion. Left ventricular ejection fraction estimated to be 60-65%. No evidence of left ventricular hypertrophy. No evidence of pericardial or pleural effusion. All other cardiac chamber sizes are within normal limits. Focal aortic valve sclerosis with adequate cusp excursion. Thickened mitral valve leaflets with normal excursion. Mild mitral annulus and aortic root calcification. Pulmonic valve not well visualized. Normal tricuspid valve structure. IVC is normal in size and collapsible with respiration. A color flow and spectral Doppler study was performed and revealed: No aortic regurgitation. No mitral regurgitation. Mitral diastolic velocities suggest reduced left ventricular relaxation c/w diastolic dysfunction grade 1. No tricuspid regurgitation. Critical Care - Objective Last 24 Hour Vital Signs Date Time Temp Pulse Resp B/P (MAP) Pulse Ox O2 Delivery O2 Flow Rate FiO2 07/15/17 16:00 97.5 62 18 84/41 90 Nasal Cannula 5.0 97.5 07/15/17 16:00 50 07/15/17 12:02 97.3 69 18 81/40 89 Nasal Cannula 5.0 97.3 07/15/17 12:00 65 07/15/17 08:00 56 07/15/17 04:00 59 07/15/17 04:00 97.9 67 20 85/55 100 Nasal Cannula 5.0 97.9 07/15/17 00:00 63 07/15/17 00:00 97.0 62 20 77/46 100 Nasal Cannula 5.0 97.0 Critical Care - Subjective ROS Limited/Unobtainable: Yes Condition: stable IV Access: peripheral EKG Rhythm: Sinus Rhythm I&O: Intake and Output 07/14/17 07/15/17 19:00 07:00 Intake Total 360 ml Output Total 2900 ml 0 ml Balance -2540 ml 0 ml Intake Oral 360 ml Output Urine Total 0 ml Hemodialysis UF 2900 ml Sly Waller M.D. Jul 15, 2017 20:22
[2017-07-16] VITALS (7 sets, daily range): BP systolic 75–127; BP diastolic 41–66
--- NOTE | 2017-07-16 00:04 | General Progress Note ---
Assessment/Plan Assessment/Plan #. Thrombocytopenia. --> We will send out for hepatitis and human immunodeficiency virus panel at this time. --> Imaging of the abdomen has been reviewed. --> Transfuse if hgb <20k #. Extensive venous occlusive disease noted. --> Troponin negative. EKG negative. Peripheral emboli cannot be excluded. --> At this time, given thrombocytopenia, I do not recommend the use of anticoagulation and closely monitor for underlying causes. #. Anemia due to underlying end-stage renal disease, on Epogen as needed. --> Thus far, chemistry has been reviewed. --> Lifelong chemistry has been reviewed as well. Ferritin normal does not require any iron. --> Hemoglobin levels have been within normal levels #. Shortness of breath, likely secondary to venous occlusive disease, which is chronic in nature. --> No large clot noted, therefore, unknown this would benefit from anticoagulation. #. Acute respiratory failure and hypoxemia. #. End-stage renal disease, on hemodialysis. #. Hypotension. #. Hiatal hernia. #. Bronchitis. Closely monitor. Subjective Date patient seen: Jul 15, 2017 Constitutional: Denies: no symptoms, chills, diaphoresis, fever, malaise, weakness, other HEENT: Denies: no symptoms, eye pain, blurred vision, tearing, double vision, ear pain, ear discharge, nose pain, nose congestion, throat pain, throat swelling, mouth pain, mouth swelling, other Cardiovascular: Denies: no symptoms, chest pain, edema, irregular heart rate, lightheadedness, palpitations, syncope, other Respiratory: Denies: no symptoms, cough, orthopnea, shortness of breath, SOB with excertion, SOB at rest, sputum, stridor, wheezing, other Gastrointestinal/Abdominal: Denies: no symptoms, abdomen distended, abdominal pain, black stools, tarry stools, blood in stool, constipated, diarrhea, difficulty swallowing, nausea, poor appetite, poor fluid intake, rectal bleeding , vomiting, other Genitourinary: Denies: no symptoms, burning, discharge, frequency, flank pain, hematuria, incontinence, pain, urgency, other Neurologic/Psychiatric: Denies: no symptoms, anxiety, depressed, emotional problems, headache, numbness, paresthesia, pre-existing deficit, seizure, tingling, tremors, weakness, other Hematologic/Lymphatic: Reports: anemia Allergies: Coded Allergies: CEFAZOLIN (Verified Allergy, Unknown, 10/02/10) CIPROFLOXACIN (Verified Allergy, Unknown, 10/02/10) GENTAMICIN (Verified Allergy, Unknown, 10/02/10) LEVOFLOXACIN (Verified Allergy, Unknown, 10/02/10) PENICILLINS (Verified Allergy, Unknown, ITCH, 10/02/10) Uncoded Allergies: CONTRAST MEDIA (Adverse Reaction, Mild, MILD ITCHING AFTER CONTRAST MEDIA, 04/30/17) Subjective Leukopenia. No fever or chills. Hypotensive. H/H stable. Objective Last 24 Hour Vital Signs Date Time Temp Pulse Resp B/P (MAP) Pulse Ox O2 Delivery O2 Flow Rate FiO2 07/15/17 20:00 91.4 72 20 92/54 89 Nasal Cannula 5.0 91.4 07/15/17 20:00 72 07/15/17 16:00 97.5 62 18 84/41 90 Nasal Cannula 5.0 97.5 07/15/17 16:00 50 07/15/17 12:02 97.3 69 18 81/40 89 Nasal Cannula 5.0 97.3 07/15/17 12:00 65 07/15/17 08:00 56 07/15/17 04:00 59 07/15/17 04:00 97.9 67 20 85/55 100 Nasal Cannula 5.0 97.9 07/15/17 00:00 63 07/15/17 00:00 97.0 62 20 77/46 100 Nasal Cannula 5.0 97.0 Intake and Output 07/14/17 07/15/17 19:00 07:00 Intake Total 360 ml Output Total 2900 ml 0 ml Balance -2540 ml 0 ml Intake Oral 360 ml Output Urine Total 0 ml Hemodialysis UF 2900 ml Height (Feet): 5 Height (Inches): 6.00 Weight (Pounds): 195 Respiratory/Chest: decreased breath sounds Abdomen: soft Edema: trace edema Byron Wade MD Jul 16, 2017 00:04
[2017-07-16] MEDS: Zolpidem 5mg tab ORAL PRN (00:37)
[2017-07-16] MEDS: Midodrine 10mg tab ORAL SCH ×3 (08:45→18:50)
[2017-07-16] MEDS: Heparin 5000 units/ml inj SUBQ SCH ×2 (08:45→21:00)
[2017-07-16] MEDS: Nephrovite tab (Rena-Vite) ORAL SCH (08:45)
--- NOTE | 2017-07-16 09:18 | Nephrology Progress Note ---
Assessment/Plan Problem List: (1) Hypoparathyroidism (2) ESRD (end stage renal disease) on dialysis (3) Hypotension Assessment ESRD Dyspnea / hypoxia Hypotension s/p Parathyroid surgery Plan \Plan: Dialysis next 07/16 Per consultants Midodrine for low BP per orders Subjective ROS Limited/Unobtainable: No Objective Objective Last 24 Hour Vital Signs Date Time Temp Pulse Resp B/P (MAP) Pulse Ox O2 Delivery O2 Flow Rate FiO2 07/16/17 04:00 98.1 61 20 85/41 92 Nasal Cannula 5.0 98.1 07/16/17 04:00 58 07/16/17 00:01 96.4 58 20 98/48 89 Nasal Cannula 5.0 96.4 07/16/17 00:00 53 07/15/17 20:00 91.4 72 20 92/54 89 Nasal Cannula 5.0 91.4 07/15/17 20:00 72 07/15/17 16:00 97.5 62 18 84/41 90 Nasal Cannula 5.0 97.5 07/15/17 16:00 50 07/15/17 12:02 97.3 69 18 81/40 89 Nasal Cannula 5.0 97.3 07/15/17 12:00 65 Intake and Output 07/15/17 07/16/17 19:00 07:00 Intake Total 350 ml Balance 350 ml Intake Oral 350 ml # Voids 3 # Bowel Movements 2 Height (Feet): 5 Height (Inches): 6.00 Weight (Pounds): 194 General Appearance: no apparent distress Objective no change EDUARDO ROSE 30, 2018 09:18
--- NOTE | 2017-07-16 14:11 | Internal Med Progress Note ---
Subjective Date of Service: Jul 16, 2017 Physician Name Edward Ugalde Attending Physician Ash Henley MD Current Medications Medications (Trade) Dose Ordered Sig/Marcos Route PRN Reason Start Time Stop Time Status Last Admin Dose Admin Acetaminophen (Tylenol) 650 mg Q6H PRN ORAL Mild Pain/Temp > 100.5 07/14/17 18:15 08/13/17 18:14 07/14/17 18:37 Cinacalcet (Sensipar) 30 mg WED-WED-WED ORAL 07/12/17 21:00 08/11/17 20:59 07/14/17 21:10 Diphenhydramine HCl (Benadryl) 25 mg Q6H PRN ORAL Itching 07/14/17 18:15 08/13/17 18:14 Heparin Sodium (Porcine) (Heparin 5000 units/ml) 5,000 units EVERY 12 HOURS SUBQ 07/12/17 09:00 08/11/17 08:59 Midodrine (Pro-Amatine) 10 mg THREE TIMES A DAY ORAL 07/12/17 15:00 08/11/17 14:59 07/16/17 12:48 Pantoprazole (Protonix) 40 mg DAILY ORAL 07/12/17 09:00 08/11/17 08:59 07/16/17 08:45 Sevelamer Carbonate (Renvela) 1,600 mg THREE TIMES A DAY ORAL 07/12/17 09:00 08/11/17 08:59 07/16/17 12:48 Vitamin B Complex/ Vit C/Folic Acid (Nephrovite) 1 tab DAILY ORAL 07/12/17 09:00 08/11/17 08:59 07/16/17 08:45 Zolpidem Tartrate (Ambien) 5 mg HSPRN PRN ORAL Insomnia 07/11/17 22:15 07/18/17 22:14 07/16/17 00:37 Allergies: Coded Allergies: CEFAZOLIN (Verified Allergy, Unknown, 10/02/10) CIPROFLOXACIN (Verified Allergy, Unknown, 10/02/10) GENTAMICIN (Verified Allergy, Unknown, 10/02/10) LEVOFLOXACIN (Verified Allergy, Unknown, 10/02/10) PENICILLINS (Verified Allergy, Unknown, ITCH, 10/02/10) Uncoded Allergies: CONTRAST MEDIA (Adverse Reaction, Mild, MILD ITCHING AFTER CONTRAST MEDIA, 04/30/17) ROS Limited/Unobtainable: No Constitutional: Reports: no symptoms HEENT: Reports: no symptoms Cardiovascular: Reports: no symptoms Respiratory: Reports: shortness of breath Gastrointestinal/Abdominal: Reports: no symptoms Genitourinary: Reports: no symptoms Neurologic/Psychiatric: Reports: no symptoms Subjective 52 YO F admitted with shortness of breath. Now CHF and volume overload. Cover for Int Med-Dr Henley. Await hematology consult. Objective Last Vital Signs Date Time Temp Pulse Resp B/P (MAP) Pulse Ox O2 Delivery O2 Flow Rate FiO2 07/16/17 13:52 97.7 73 18 97/64 95 Room Air 97.7 07/16/17 12:00 2.0 Intake and Output 07/15/17 07/16/17 19:00 07:00 Intake Total 350 ml Balance 350 ml Intake Oral 350 ml # Voids 3 # Bowel Movements 2 Objective General Appearance: WD/WN, no apparent distress, alert EENT: PERRL/EOMI, normal ENT inspection, pharynx normal Neck: non-tender, normal alignment, supple, normal inspection Cardiovascular: normal peripheral pulses, normal rate, regular rhythm, no gallop/murmur, no JVD Respiratory/Chest: chest wall non-tender, respiratory distress, crackles/rales , rhonchi - bilaterally, expiratory wheezing Abdomen: normal bowel sounds, non tender, soft, no organomegaly, no mass Extremities: normal range of motion, non-tender 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 See nephrology note. (4) HTN (hypertension) (5) CHF (congestive heart failure) Assessment & Plan: See cardiology note. (6) Pulmonary embolism Assessment & Plan: Low probability-see pulmonary consult note. Await hematology consult. ?need for anticoagulation?-see cardiology note 07/13 (7) Respiratory failure Assessment & Plan: ?volume ovrload?See pulmonary note. (8) Hypoparathyroidism Status: stable Assessment/Plan Discharge planning EDWARD UGALDE Jul 16, 2017 14:11
--- NOTE | 2017-07-16 18:59 | Pulmonolgy Critical Care Note ---
Critical Care - Asmt/Plan Assessment/Plan: Patient presents with dyspnea on exertion. Has been getting worse over the last week. She denies any chest pain. She states her dialysis been adequate. She hasn't had any productive cough. She denies prior clot or calf pain. She does not have home oxygen. She has not heard herself wheezing. This does not change with dialysis. In April the patient had an extensive evaluation for similar problem. She was in the hospital 11 days. They excluded blood clots lung (V/Q was "intermediate probability for PE", CTA showed no large clot but was difficult to interpret). They told her that she had some "fluid around her heart" but heel former note states "no pericardial effusion" Echo suggests either fat or effusion. (She had pleural effusion right). No evidence of RV strain or enlargement noted, but was difficult exam. She was discharged in May with these dx: 1. Acute respiratory failure with hypoxemia. 2. End-stage renal disease, on hemodialysis. 3. Persistent hypotension. 4. Hiatal hernia. 5. Acute bronchitis. 6. Hypoparathyroidism. 7. End-stage renal disease, on hemodialysis. 8. Anxiety disorder. 9. Depression. 10. Sinus bradycardia. She has a dialysis catheter R groin. Dialysis is MWF. Depressed. Anemia without evidence of active bruising or bleeding. No headache. No NVD. Not make urine. Allergies: Coded Allergies: CEFAZOLIN (Verified Allergy, Unknown, 10/02/10) CIPROFLOXACIN (Verified Allergy, Unknown, 10/02/10) GENTAMICIN (Verified Allergy, Unknown, 10/02/10) LEVOFLOXACIN (Verified Allergy, Unknown, 10/02/10) PENICILLINS (Verified Allergy, Unknown, ITCH, 10/02/10) Uncoded Allergies: CONTRAST MEDIA (Adverse Reaction, Mild, MILD ITCHING AFTER CONTRAST MEDIA, 04/30/17) Patient History Past Medical History: see triage record Past Surgical History: other - fistulae, shunts, parathyroidectomy Social History: Denies: smoking Social History Narrative home with home health Last Menstrual Period: pt states 20 years ago Now: No Reviewed Nursing Documentation: PMH: Agreed; PSxH: Agreed Nursing Documentation-PMH Past Medical History: No History, Except For Hx Cardiac Problems: Yes Hx Pacemaker: Yes Hx Asthma: Yes Hx Diabetes: Yes Hx Cancer: No Hx Gastrointestinal Problems: Yes Hx Dialysis: Yes - M,W,F Hx Neurological Problems: No Review of Systems All Other Systems: negative except mentioned in HPI Physical Exam Vital Signs VSSstable, still; requiring 4-5 L O2 Sp02 EP Interpretation: reviewed, abnormal - interpreted as low by me General Appearance: well appearing, no apparent distress, GCS 15 Head: normocephalic Eyes: bilateral eye conjunctivae pale ENT: moist mucus membranes Neck: supple Respiratory: chest non-tender, lungs clear, normal breath sounds Cardiovascular #1: regular rate, rhythm Cardiovascular #2: 2+ radial (R) Gastrointestinal: normal inspection, normal bowel sounds, non tender, no mass, non-distended, other - R dialysis catheter, overweight Musculoskeletal: back normal, gait/station normal, normal range of motion Neurologic: alert, oriented x3, grossly normal Psychiatric: depressed affect Skin: warm/dry, other - multiple surgical clips Impression/Plan: Primary Impression: Hypoxia possibly related to volume overload vs atelectasis vs AV shunting related to prior HD access, will need home oxygen, in view of current requirements she will need 6L/min nasal canula oxygen Awaiting Echocardiogram with bubble study and assessment of Pulmonary Artery Pressure Low chance significant Pulmonary Embolism given recent negative work up, will need assessment of Pulmonary Artery Pressure on Echocardiogram (with bubble) and shunt study, note Hematology comment about anticoagulation ESRD (end stage renal disease) on dialysis Central Venous compromise probably complicating previous thrombosis complicating central venous access for HD Shortness of breath Aortic and Mitral Valve sclerosis with Diastolic Dysfunction Latest CT Chest: No definite evidence of acute pulmonary embolus - would defer decision on anticoaghulation to Hematology Consult, no Pulmonary Indication. Extensive central venoocclusive disease with extensive mediastinal and chest wall collaterals - probably complicating previous Dialysis Access Patient presents with hypoxia and dyspnea on exertion (6 MWT pending). She is significantly hypoxemic. She is an extremely complicated patient with multiple co-morbidities. There is no evidence of bronchospasm with her exam. Differential includes a pulmonary embolus, pneumonia, venous shunt, pulmonary edema and fluid overload, pulmonary hypertension and fibrosis amongst others. Evaluation with EKG, CTA chest, CXR and labs. Patient is treated with oxygen. Her blood pressure is low (she states chronically) and we are unable to use nitrates. IV access is difficult. The patient's refusing to allow me to start an IV in her neck or in her groin. We were unable to perform the CT angiogram. EKG shows right axis with markedly decreased voltage. This could be consistent with a pericardial effusion. Chest x-ray no infiltrates. Heart size is normal. She has stents in arteries in her arms and also surgical clips. Labs are significant for normal white count and troponin. BNP is slightly elevated. Evidence of end-stage renal disease however other electrolytes are essentially normal. Elevated lactic acid. . EKG Diagnostic Results Rate: normal Rhythm: NSR ST Segments: no acute changes - decreased voltage Rhythm Strip Diag. Results EP Interpretation: yes Rhythm: NSR, no PVC's, no ectopy Diagnostic Results Chest X-Ray Diagnostic Results : Chest X-Ray Ordered: Yes # of Views/Limited/Complete: 1 View Indication: Shortness of Breath EP Interpretation: Yes Interpretation: no consolidation, no effusion, no pneumothorax Impression: Other Electronically Signed by: Electronically signed by Sly Calvillo MD Lower extremity duplex negative VQ Scan w/ Lung Perfusion Indication: Chest pain Technique: A ventilation/perfusion scan was performed. Ventilation was performed utilizing 40 mCi of Technetium 99m-DTPA. Perfusion was performed with 5.1 mCi of technetium 99m-MAA injected intravenously. Multiple side by side projections obtained. Findings: Possible moderate-sized segmental mismatch seen on some views not definitively seen on others. Given these inconsistencies, difficult to categorize as low or high probability. CTA Chest w Contrast ndication: Chest pain Technique: IV administration nonionic contrast. Spiral acquisitions obtained from the lung bases to the lung apices. Multiplanar and 3-D reconstructions were generated. Total dose length product 749.29 mGycm. CTDIvol(s) 22.41 mGy. Dose reduction achieved using automated exposure control Comparison: 04/30/2017 Findings: Opacification of the the pulmonary arteries is suboptimal, and only large central pulmonary emboli can't be excluded with any confidence. Again demonstrated is evidence of extensive central venoocclusive disease, with extensive mediastinal, paraspinous, and chest wall collaterals. Very unusual collaterals are seen in the pulmonary chente The thoracic aorta is well-opacified, and there is no evidence of thoracic aortic aneurysm or dissection. Normal caliber pulmonary artery. No evidence of right ventricular dilatation. Interval development of a [id number] right pleural effusion. There is trace left pleural fluid as well. There is groundglass opacity at the right lung base, probably representing compressive atelectatic changes. There may be mild interstitial congestion. There is a very large hiatal hernia, contains approximately half of the stomach. Some calcifications are seen in the periphery of the thyroid. No mediastinal or hilar mass or adenopathy. There is a groin approach dialysis catheter tip seen in the inferior vena cava, tip at the orifice. Extensive calcifications are seen in both breasts. No axillary or chest wall mass or adenopathy demonstrated. The bones are unremarkable. Bilateral breast calcifications surgical clips and vascular stents are seen in the bilateral axillae The included upper abdominal anatomy is unremarkable. Impression: Poor quality opacification of the pulmonary arteries. Probably related to the presence of extensive central venoocclusive disease. No large vessel central pulmonary and was demonstrated, but peripheral pulmonary emboli cannot be excluded with any confidence. No evidence of right heart strain Interim development of a moderate size right pleural effusion. There is resultant increased compressive atelectasis of the right lung. Extensive central venoocclusive disease, resulting in extensive and somewhat unusual mediastinal and chest wall collaterals. Mild interstitial congestion Very large hiatal hernia, containing approximately half of the stomach. Repeat CT Chest: 07/14/2017 o definite evidence of acute pulmonary embolus Extensive central venoocclusive disease with extensive mediastinal and chest wall collaterals along also previously described Since previous exam of 05/22/2017, marked improvement of previously demonstrated right pleural effusion, now only trace pleural fluid present 6 mm right upper lobe nodule, not definitely evident previously, possibly obscured by surrounding previous pathology. If there is significant risk factors for lung carcinoma, short interval follow-up in 6-12 months is recommended. No further follow-up necessary if no significant risk factors Otherwise minimal parenchymal disease, as described, improved from 05/22/2017 Massive hiatal hernia, also previously described Distal esophageal wall thickening, could indicate esophagitis, also demonstrated previously. Transfemoral dialysis catheter noted Echocardiogram: Normal left ventricular chamber size, systolic function and wall motion. Left ventricular ejection fraction estimated to be 60-65%. No evidence of left ventricular hypertrophy. No evidence of pericardial or pleural effusion. All other cardiac chamber sizes are within normal limits. Focal aortic valve sclerosis with adequate cusp excursion. Thickened mitral valve leaflets with normal excursion. Mild mitral annulus and aortic root calcification. Pulmonic valve not well visualized. Normal tricuspid valve structure. IVC is normal in size and collapsible with respiration. A color flow and spectral Doppler study was performed and revealed: No aortic regurgitation. No mitral regurgitation. Mitral diastolic velocities suggest reduced left ventricular relaxation c/w diastolic dysfunction grade 1. No tricuspid regurgitation. Critical Care - Objective Last 24 Hour Vital Signs Date Time Temp Pulse Resp B/P (MAP) Pulse Ox O2 Delivery O2 Flow Rate FiO2 07/16/17 16:00 97.7 90 19 75/42 96 Room Air 97.7 07/16/17 16:00 96 07/16/17 14:00 Room Air 2.0 07/16/17 13:52 97.7 73 18 97/64 95 Room Air 97.7 07/16/17 12:00 96.1 68 18 127/66 Nasal Cannula 2.0 96.1 07/16/17 12:00 74 07/16/17 08:00 72 07/16/17 08:00 97.7 69 18 90/53 95 Room Air 97.7 07/16/17 04:00 98.1 61 20 85/41 92 Nasal Cannula 5.0 98.1 07/16/17 04:00 58 07/16/17 00:01 96.4 58 20 98/48 89 Nasal Cannula 5.0 96.4 07/16/17 00:00 53 07/15/17 20:00 91.4 72 20 92/54 89 Nasal Cannula 5.0 91.4 07/15/17 20:00 72 Critical Care - Subjective ROS Limited/Unobtainable: Yes Condition: stable EKG Rhythm: Sinus Rhythm I&O: Intake and Output 07/15/17 07/16/17 19:00 07:00 Intake Total 350 ml Balance 350 ml Intake Oral 350 ml # Voids 3 # Bowel Movements 2 Sly Waller M.D. Jul 16, 2017 18:59
[2017-07-16] MEDS: Sensipar 30mg Tab ORAL SCH (21:08)
--- NOTE | 2017-07-16 23:23 | General Progress Note ---
Assessment/Plan Assessment/Plan #. Anemia due to underlying end-stage renal disease, on Epogen as needed. --> Thus far, chemistry has been reviewed. --> Lifelong chemistry has been reviewed as well. Ferritin normal does not require any iron. --> Hemoglobin levels have been within normal levels --> On hemodialysis as needed. #. Thrombocytopenia. --> We will send out for hepatitis and human immunodeficiency virus panel at this time. --> Imaging of the abdomen has been reviewed. --> Transfuse if hgb <20k #. Extensive venous occlusive disease noted. --> Troponin negative. EKG negative. Peripheral emboli cannot be excluded. --> At this time, given thrombocytopenia, I do not recommend the use of anticoagulation and closely monitor for underlying causes. #. Shortness of breath, likely secondary to venous occlusive disease, which is chronic in nature. --> No large clot noted, therefore, unknown this would benefit from anticoagulation. #. Acute respiratory failure and hypoxemia. #. End-stage renal disease, on hemodialysis. #. Hypotension. #. Hiatal hernia. #. Bronchitis. Closely monitor. Subjective Date patient seen: Jul 16, 2017 Constitutional: Denies: no symptoms, chills, diaphoresis, fever, malaise, weakness, other HEENT: Denies: no symptoms, eye pain, blurred vision, tearing, double vision, ear pain, ear discharge, nose pain, nose congestion, throat pain, throat swelling, mouth pain, mouth swelling, other Cardiovascular: Denies: no symptoms, chest pain, edema, irregular heart rate, lightheadedness, palpitations, syncope, other Respiratory: Denies: no symptoms, cough, orthopnea, shortness of breath, SOB with excertion, SOB at rest, sputum, stridor, wheezing, other Gastrointestinal/Abdominal: Denies: no symptoms, abdomen distended, abdominal pain, black stools, tarry stools, blood in stool, constipated, diarrhea, difficulty swallowing, nausea, poor appetite, poor fluid intake, rectal bleeding , vomiting, other Genitourinary: Denies: no symptoms, burning, discharge, frequency, flank pain, hematuria, incontinence, pain, urgency, other Neurologic/Psychiatric: Denies: no symptoms, anxiety, depressed, emotional problems, headache, numbness, paresthesia, pre-existing deficit, seizure, tingling, tremors, weakness, other Allergies: Coded Allergies: CEFAZOLIN (Verified Allergy, Unknown, 10/02/10) CIPROFLOXACIN (Verified Allergy, Unknown, 10/02/10) GENTAMICIN (Verified Allergy, Unknown, 10/02/10) LEVOFLOXACIN (Verified Allergy, Unknown, 10/02/10) PENICILLINS (Verified Allergy, Unknown, ITCH, 10/02/10) Uncoded Allergies: CONTRAST MEDIA (Adverse Reaction, Mild, MILD ITCHING AFTER CONTRAST MEDIA, 04/30/17) Subjective BP remains low. On HD. NAD. Objective Last 24 Hour Vital Signs Date Time Temp Pulse Resp B/P (MAP) Pulse Ox O2 Delivery O2 Flow Rate FiO2 07/16/17 18:54 Room Air 2.0 07/16/17 16:00 97.7 90 19 75/42 96 Room Air 97.7 07/16/17 16:00 96 07/16/17 14:00 Room Air 2.0 07/16/17 13:52 97.7 73 18 97/64 95 Room Air 97.7 07/16/17 12:00 96.1 68 18 127/66 Nasal Cannula 2.0 96.1 07/16/17 12:00 74 07/16/17 08:00 72 07/16/17 08:00 97.7 69 18 90/53 95 Room Air 97.7 07/16/17 04:00 98.1 61 20 85/41 92 Nasal Cannula 5.0 98.1 07/16/17 04:00 58 07/16/17 00:01 96.4 58 20 98/48 89 Nasal Cannula 5.0 96.4 07/16/17 00:00 53 Intake and Output 07/15/17 07/16/17 19:00 07:00 Intake Total 350 ml Balance 350 ml Intake Oral 350 ml # Voids 3 # Bowel Movements 2 Height (Feet): 5 Height (Inches): 6.00 Weight (Pounds): 194 General Appearance: no apparent distress Respiratory/Chest: decreased breath sounds Abdomen: soft Byron Wade MD Jul 16, 2017 23:23
[2017-07-17] VITALS: BP 94/48
[2017-07-17] MEDS: Zolpidem 5mg tab ORAL PRN (00:09)
[2017-07-17 04:00] VITALS: BP 85/43
[2017-07-17 08:00] VITALS: BP 82/50
[2017-07-17] MEDS: Heparin 5000 units/ml inj SUBQ SCH ×2 (09:00→21:00)
[2017-07-17] MEDS: Nephrovite tab (Rena-Vite) ORAL SCH (09:11)
[2017-07-17] MEDS: Midodrine 10mg tab ORAL SCH ×3 (09:11→16:42)
[2017-07-17 10:14] LABS: BASOPHILS % (AUTO) 1.4 % (0.0-2.0); EOSINOPHILS % (AUTO) 9.4 % (0.0-3.0); HEMATOCRIT 38.1 % (37.0-47.0); HEMOGLOBIN 12.2 G/DL (12.0-16.0); LYMPHOCYTES % (AUTO) 34.7 % (20.0-45.0); MEAN CORPUSCULAR VOLUME 97 FL (80-99); MONOCYTES % (AUTO) 4.2 % (1.0-10.0); NEUTROPHILS % (AUTO) 50.4 % (45.0-75.0); PLATELET COUNT 130 K/UL (150-450); RED BLOOD COUNT 3.94 M/UL (4.20-5.40); RED CELL DISTRIBUTION WIDTH 15.9 % (11.6-14.8); WHITE BLOOD COUNT 3.7 K/UL (4.8-10.8)
--- NOTE | 2017-07-17 10:37 | Nephrology Progress Note ---
Assessment/Plan Problem List: (1) Hypoparathyroidism (2) ESRD (end stage renal disease) on dialysis (3) Hypotension Assessment ESRD Dyspnea / hypoxia Hypotension s/p Parathyroid surgery Plan \Plan: Dialysis next 07/19 Per consultants Midodrine for low BP per orders Subjective ROS Limited/Unobtainable: No Constitutional: Reports: malaise Objective Objective Last 24 Hour Vital Signs Date Time Temp Pulse Resp B/P (MAP) Pulse Ox O2 Delivery O2 Flow Rate FiO2 07/17/17 08:00 96.6 65 19 82/50 96 Nasal Cannula 4.0 96.6 07/17/17 07:50 69 07/17/17 04:00 63 07/17/17 04:00 97.9 63 18 85/43 97 Nasal Cannula 4.0 97.9 07/17/17 00:00 98.1 61 18 94/48 96 Nasal Cannula 4.0 98.1 07/17/17 00:00 62 07/16/17 20:00 97.7 72 20 93/41 90 Nasal Cannula 4.0 97.7 07/16/17 20:00 68 07/16/17 18:54 Room Air 2.0 07/16/17 16:00 97.7 90 19 75/42 96 Room Air 97.7 07/16/17 16:00 96 07/16/17 14:00 Room Air 2.0 07/16/17 13:52 97.7 73 18 97/64 95 Room Air 97.7 07/16/17 12:00 96.1 68 18 127/66 Nasal Cannula 2.0 96.1 07/16/17 12:00 74 Intake and Output 07/16/17 07/17/17 19:00 07:00 Intake Total 300 ml Output Total 2900 ml Balance -2900 ml 300 ml Intake Oral 300 ml Hemodialysis UF 2900 ml Laboratory Tests 07/17/17 08:55: White Blood Count 3.7L, Red Blood Count 3.94L, Hemoglobin 12.2, Hematocrit 38.1 , Mean Corpuscular Volume 97, Mean Corpuscular Hemoglobin 30.9, Mean Corpuscular Hemoglobin Concent 31.9L, Red Cell Distribution Width 15.9H, Platelet Count 130L, Mean Platelet Volume 8.8, Neutrophils (%) (Auto) 50.4, Lymphocytes (%) (Auto) 34.7, Monocytes (%) (Auto) 4.2, Eosinophils (%) (Auto) 9.4H, Basophils (%) (Auto) 1.4, Sodium Level [Pending], Potassium Level [Pending ], Chloride Level [Pending], Carbon Dioxide Level [Pending], Blood Urea Nitrogen [Pending], Creatinine [Pending], Estimat Glomerular Filtration Rate [ Pending], Glucose Level [Pending], Calcium Level [Pending] Height (Feet): 5 Height (Inches): 6.00 Weight (Pounds): 196 General Appearance: no apparent distress Objective no change EDUARDO ROSE Jul 17, 2017 10:37
[2017-07-17 10:45] LABS: ANION GAP 13 mmol/L (5-15); BLOOD UREA NITROGEN 28 mg/dL (7-18); CALCIUM 8.7 MG/DL (8.5-10.1); CARBON DIOXIDE 31 MMOL/L (21-32); CHLORIDE 98 MMOL/L (98-107); SODIUM 142 MMOL/L (136-145)
[2017-07-17 12:00] VITALS: BP 75/49
--- NOTE | 2017-07-17 14:33 | Cardiology Progress Note ---
Assessment/Plan Problem List: (1) ESRD (end stage renal disease) on dialysis (2) Shortness of breath (3) Hypoxia (4) HTN (hypertension) (5) Anemia Status: stable, unchanged Status Narrative Pt w/ dyspnea/hypoxia, of uncertain cause. v/q - indeterminate, and CTA w/ central pulm venous occlusive disease, incl SVC, but no PE. ? intrapulm shunt No cardiac cause for her dyspnea identified ( LV systolic fxn normal, no pericardial effusion/tamponade, no evidence for acute ischemia) She remains w/ hypotension - ? accurate as pt appears w/ nl perfusion Assessment/Plan Continue as per pulmonary. Remain off antihypertensive agents. No further cardiac w/u recommended. Subjective ROS Limited/Unobtainable: No Subjective Cardiology for Dr. Jay. Pt comfortable at rest. No new c/o Objective Last 24 Hour Vital Signs Date Time Temp Pulse Resp B/P (MAP) Pulse Ox O2 Delivery O2 Flow Rate FiO2 07/17/17 12:00 97.7 61 20 75/49 94 Nasal Cannula 4.0 97.7 07/17/17 11:47 68 07/17/17 08:00 96.6 65 19 82/50 96 Nasal Cannula 4.0 96.6 07/17/17 07:50 69 07/17/17 04:00 63 07/17/17 04:00 97.9 63 18 85/43 97 Nasal Cannula 4.0 97.9 07/17/17 00:00 98.1 61 18 94/48 96 Nasal Cannula 4.0 98.1 07/17/17 00:00 62 07/16/17 20:00 97.7 72 20 93/41 90 Nasal Cannula 4.0 97.7 07/16/17 20:00 68 07/16/17 18:54 Room Air 2.0 07/16/17 16:00 97.7 90 19 75/42 96 Room Air 97.7 07/16/17 16:00 96 General Appearance: WD/WN, no apparent distress, alert EENT: PERRL/EOMI Neck: supple, normal inspection, no JVD Rhythm: NSR Cardiovascular: normal rate, regular rhythm Respiratory/Chest: lungs clear, normal breath sounds, no respiratory distress Abdomen: non tender, soft Extremities: no swelling Intake and Output 07/16/17 07/17/17 19:00 07:00 Intake Total 300 ml Output Total 2900 ml Balance -2900 ml 300 ml Intake Oral 300 ml Hemodialysis UF 2900 ml Laboratory Tests Test 07/17/17 08:55 White Blood Count 3.7 K/UL (4.8-10.8) L Red Blood Count 3.94 M/UL (4.20-5.40) L Hemoglobin 12.2 G/DL (12.0-16.0) Hematocrit 38.1 % (37.0-47.0) Mean Corpuscular Volume 97 FL (80-99) Mean Corpuscular Hemoglobin 30.9 PG (27.0-31.0) Mean Corpuscular Hemoglobin Concent 31.9 G/DL (32.0-36.0) L Red Cell Distribution Width 15.9 % (11.6-14.8) H Platelet Count 130 K/UL (150-450) L Mean Platelet Volume 8.8 FL (6.5-10.1) Neutrophils (%) (Auto) 50.4 % (45.0-75.0) Lymphocytes (%) (Auto) 34.7 % (20.0-45.0) Monocytes (%) (Auto) 4.2 % (1.0-10.0) Eosinophils (%) (Auto) 9.4 % (0.0-3.0) H Basophils (%) (Auto) 1.4 % (0.0-2.0) Sodium Level 142 MMOL/L (136-145) Potassium Level 4.0 MMOL/L (3.5-5.1) Chloride Level 98 MMOL/L (98-107) Carbon Dioxide Level 31 MMOL/L (21-32) Anion Gap 13 mmol/L (5-15) Blood Urea Nitrogen 28 mg/dL (7-18) H Creatinine 9.0 MG/DL (0.55-1.30) H Estimat Glomerular Filtration Rate 5.6 mL/min (>60) Glucose Level 90 MG/DL (74-106) Calcium Level 8.7 MG/DL (8.5-10.1) LINDSAY BARTHOLOMEW Jul 17, 2017 14:33
[2017-07-17 16:00] VITALS: BP 93/75
--- NOTE | 2017-07-17 16:24 | Internal Med Progress Note ---
Subjective Date of Service: Jul 17, 2017 Physician Name Shavonne Ugalde Attending Physician Ash Henley MD Current Medications Medications (Trade) Dose Ordered Sig/Marcos Route PRN Reason Start Time Stop Time Status Last Admin Dose Admin Acetaminophen (Tylenol) 650 mg Q6H PRN ORAL Mild Pain/Temp > 100.5 07/14/17 18:15 08/13/17 18:14 07/16/17 21:09 Cinacalcet (Sensipar) 30 mg WED-WED-WED ORAL 07/12/17 21:00 08/11/17 20:59 07/16/17 21:08 Diphenhydramine HCl (Benadryl) 25 mg Q6H PRN ORAL Itching 07/14/17 18:15 08/13/17 18:14 Heparin Sodium (Porcine) (Heparin 5000 units/ml) 5,000 units EVERY 12 HOURS SUBQ 07/12/17 09:00 08/11/17 08:59 Midodrine (Pro-Amatine) 10 mg THREE TIMES A DAY ORAL 07/12/17 15:00 08/11/17 14:59 07/17/17 13:26 Pantoprazole (Protonix) 40 mg DAILY ORAL 07/12/17 09:00 08/11/17 08:59 07/17/17 09:11 Sevelamer Carbonate (Renvela) 1,600 mg THREE TIMES A DAY ORAL 07/12/17 09:00 08/11/17 08:59 07/17/17 13:27 Vitamin B Complex/ Vit C/Folic Acid (Nephrovite) 1 tab DAILY ORAL 07/12/17 09:00 08/11/17 08:59 07/17/17 09:11 Zolpidem Tartrate (Ambien) 5 mg HSPRN PRN ORAL Insomnia 07/11/17 22:15 07/18/17 22:14 07/17/17 00:09 Allergies: Coded Allergies: CEFAZOLIN (Verified Allergy, Unknown, 10/02/10) CIPROFLOXACIN (Verified Allergy, Unknown, 10/02/10) GENTAMICIN (Verified Allergy, Unknown, 10/02/10) LEVOFLOXACIN (Verified Allergy, Unknown, 10/02/10) PENICILLINS (Verified Allergy, Unknown, ITCH, 10/02/10) Uncoded Allergies: CONTRAST MEDIA (Adverse Reaction, Mild, MILD ITCHING AFTER CONTRAST MEDIA, 04/30/17) ROS Limited/Unobtainable: No Constitutional: Reports: no symptoms HEENT: Reports: no symptoms Cardiovascular: Reports: no symptoms Respiratory: Reports: shortness of breath Gastrointestinal/Abdominal: Reports: diarrhea Genitourinary: Reports: no symptoms Neurologic/Psychiatric: Reports: no symptoms Subjective 52 YO F admitted with shortness of breath. Now CHF and volume overload. Cover for Int John-Dr Henley. C/O diarrhea Objective Last Vital Signs Date Time Temp Pulse Resp B/P (MAP) Pulse Ox O2 Delivery O2 Flow Rate FiO2 07/17/17 16:00 97.9 65 20 93/75 97 Nasal Cannula 4.0 97.9 Laboratory Tests Test 07/17/17 08:55 White Blood Count 3.7 K/UL (4.8-10.8) L Red Blood Count 3.94 M/UL (4.20-5.40) L Hemoglobin 12.2 G/DL (12.0-16.0) Hematocrit 38.1 % (37.0-47.0) Mean Corpuscular Volume 97 FL (80-99) Mean Corpuscular Hemoglobin 30.9 PG (27.0-31.0) Mean Corpuscular Hemoglobin Concent 31.9 G/DL (32.0-36.0) L Red Cell Distribution Width 15.9 % (11.6-14.8) H Platelet Count 130 K/UL (150-450) L Mean Platelet Volume 8.8 FL (6.5-10.1) Neutrophils (%) (Auto) 50.4 % (45.0-75.0) Lymphocytes (%) (Auto) 34.7 % (20.0-45.0) Monocytes (%) (Auto) 4.2 % (1.0-10.0) Eosinophils (%) (Auto) 9.4 % (0.0-3.0) H Basophils (%) (Auto) 1.4 % (0.0-2.0) Sodium Level 142 MMOL/L (136-145) Potassium Level 4.0 MMOL/L (3.5-5.1) Chloride Level 98 MMOL/L (98-107) Carbon Dioxide Level 31 MMOL/L (21-32) Anion Gap 13 mmol/L (5-15) Blood Urea Nitrogen 28 mg/dL (7-18) H Creatinine 9.0 MG/DL (0.55-1.30) H Estimat Glomerular Filtration Rate 5.6 mL/min (>60) Glucose Level 90 MG/DL (74-106) Calcium Level 8.7 MG/DL (8.5-10.1) Intake and Output 07/16/17 07/17/17 19:00 07:00 Intake Total 300 ml Output Total 2900 ml Balance -2900 ml 300 ml Intake Oral 300 ml Hemodialysis UF 2900 ml Objective General Appearance: WD/WN, no apparent distress, alert EENT: PERRL/EOMI, normal ENT inspection, pharynx normal Neck: non-tender, normal alignment, supple, normal inspection Cardiovascular: normal peripheral pulses, normal rate, regular rhythm, no gallop/murmur, no JVD Respiratory/Chest: chest wall non-tender, respiratory distress, crackles/rales , rhonchi - bilaterally, expiratory wheezing Abdomen: normal bowel sounds, non tender, soft, no organomegaly, no mass Extremities: normal range of motion, non-tender Neurologic: java analyst II-XII grossly normal, no motor/sensory deficits Skin: normal pigmentation, warm/dry Assessment/Plan Problem List: (1) Anemia (2) Dyspnea (3) ESRD (end stage renal disease) on dialysis Assessment & Plan: S/P hemodialysis 07/14; next hemodialysis 07/16/17. See nephrology note. (4) HTN (hypertension) (5) CHF (congestive heart failure) Assessment & Plan: See cardiology note. (6) Pulmonary embolism Assessment & Plan: Low probability-see pulmonary consult note. Await hematology consult. ?need for anticoagulation?-see cardiology note 07/13 (7) Respiratory failure Assessment & Plan: ?volume ovrload?See pulmonary note. (8) Hypoparathyroidism (9) Diarrhea Assessment & Plan: Stool culture. Imodium prn Assessment/Plan Discharge planning SHAVONNE UGALDE Jul 17, 2017 16:24
[2017-07-17] MEDS ORDERED: Loperamide 2mg cap ORAL PRN ×2 (16:30→18:00)
[2017-07-17] MEDS ORDERED: Zolpidem 5mg tab ORAL PRN (18:00)
[2017-07-17] MEDS ORDERED: Midodrine 10mg tab ORAL SCH (18:00)
--- NOTE | 2017-07-17 18:14 | Pulmonolgy Critical Care Note ---
Critical Care - Asmt/Plan Assessment/Plan: Patient presents with dyspnea on exertion. Has been getting worse over the last week. She denies any chest pain. She states her dialysis been adequate. She hasn't had any productive cough. She denies prior clot or calf pain. She does not have home oxygen. She has not heard herself wheezing. This does not change with dialysis. In April the patient had an extensive evaluation for similar problem. She was in the hospital 11 days. They excluded blood clots lung (V/Q was "intermediate probability for PE", CTA showed no large clot but was difficult to interpret). 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 (She had pleural effusion right). No evidence of RV strain or enlargement noted, but was difficult exam. She was discharged in May with these dx: 1. Acute respiratory failure with hypoxemia. 2. End-stage renal disease, on hemodialysis. 3. Persistent hypotension. 4. Hiatal hernia. 5. Acute bronchitis. 6. Hypoparathyroidism. 7. End-stage renal disease, on hemodialysis. 8. Anxiety disorder. 9. Depression. 10. Sinus bradycardia. She has a dialysis catheter R groin. Dialysis is MWF. Depressed. Anemia without evidence of active bruising or bleeding. No headache. No NVD. Not make urine. Allergies: Coded Allergies: CEFAZOLIN (Verified Allergy, Unknown, 10/02/10) CIPROFLOXACIN (Verified Allergy, Unknown, 10/02/10) GENTAMICIN (Verified Allergy, Unknown, 10/02/10) LEVOFLOXACIN (Verified Allergy, Unknown, 10/02/10) PENICILLINS (Verified Allergy, Unknown, ITCH, 10/02/10) Uncoded Allergies: CONTRAST MEDIA (Adverse Reaction, Mild, MILD ITCHING AFTER CONTRAST MEDIA, 04/30/17) Patient History Past Medical History: see triage record Past Surgical History: other - fistulae, shunts, parathyroidectomy Social History: Denies: smoking Social History Narrative home with home health Last Menstrual Period: pt states 20 years ago Now: No Reviewed Nursing Documentation: PMH: Agreed; PSxH: Agreed Nursing Documentation-PMH Past Medical History: No History, Except For Hx Cardiac Problems: Yes Hx Pacemaker: Yes Hx Asthma: Yes Hx Diabetes: Yes Hx Cancer: No Hx Gastrointestinal Problems: Yes Hx Dialysis: Yes - M,W,F Hx Neurological Problems: No Review of Systems All Other Systems: negative except mentioned in HPI Physical Exam Vital Signs VSSstable, still; requiring 4-5 L O2 Sp02 EP Interpretation: reviewed, abnormal - interpreted as low by me General Appearance: well appearing, no apparent distress, GCS 15 Head: normocephalic Eyes: bilateral eye conjunctivae pale ENT: moist mucus membranes Neck: supple Respiratory: chest non-tender, lungs clear, normal breath sounds Cardiovascular #1: regular rate, rhythm Cardiovascular #2: 2+ radial (R) Gastrointestinal: normal inspection, normal bowel sounds, non tender, no mass, non-distended, other - R dialysis catheter, overweight Musculoskeletal: back normal, gait/station normal, normal range of motion Neurologic: alert, oriented x3, grossly normal Psychiatric: depressed affect Skin: warm/dry, other - multiple surgical clips Impression/Plan: Primary Impression: Hypoxia possibly related to volume overload vs atelectasis vs AV shunting related to prior HD access venous collaterals, will need home oxygen, in view of current requirements she will need 4L/min nasal canula oxygen - current sats 97% 4L Awaiting Echocardiogram with bubble study and assessment of Pulmonary Artery Pressure via Echocardiogram Low chance significant Pulmonary Embolism given recent negative work up, will need assessment of Pulmonary Artery Pressure on Echocardiogram (with bubble) and shunt study, note Hematology comment about anticoagulation ESRD (end stage renal disease) on dialysis Central Venous compromise probably complicating previous thrombosis complicating central venous access for HD Shortness of breath Aortic and Mitral Valve sclerosis with Diastolic Dysfunction Latest CT Chest: No definite evidence of acute pulmonary embolus - would defer decision on anticoaghulation to Hematology Consult, no Pulmonary Indication. Extensive central venoocclusive disease with extensive mediastinal and chest wall collaterals - probably complicating previous Dialysis Access Patient presents with hypoxia and dyspnea on exertion (6 MWT pending). She is significantly hypoxemic. She is an extremely complicated patient with multiple co-morbidities. There is no evidence of bronchospasm with her exam. Differential includes a pulmonary embolus, pneumonia, venous shunt, pulmonary edema and fluid overload, pulmonary hypertension and fibrosis amongst others. Evaluation with EKG, CTA chest, CXR and labs. Patient is treated with oxygen. Her blood pressure is low (she states chronically) and we are unable to use nitrates. IV access is difficult. The patient's refusing to allow me to start an IV in her neck or in her groin. We were unable to perform the CT angiogram. EKG shows right axis with markedly decreased voltage. This could be consistent with a pericardial effusion. Chest x-ray no infiltrates. Heart size is normal. She has stents in arteries in her arms and also surgical clips. Labs are significant for normal white count and troponin. BNP is slightly elevated. Evidence of end-stage renal disease however other electrolytes are essentially normal. Elevated lactic acid. . EKG Diagnostic Results Rate: normal Rhythm: NSR ST Segments: no acute changes - decreased voltage Rhythm Strip Diag. Results EP Interpretation: yes Rhythm: NSR, no PVC's, no ectopy Diagnostic Results Chest X-Ray Diagnostic Results : Chest X-Ray Ordered: Yes # of Views/Limited/Complete: 1 View Indication: Shortness of Breath EP Interpretation: Yes Interpretation: no consolidation, no effusion, no pneumothorax Impression: Other Electronically Signed by: Electronically signed by Sly Calvillo MD Lower extremity duplex negative VQ Scan w/ Lung Perfusion Indication: Chest pain Technique: A ventilation/perfusion scan was performed. Ventilation was performed utilizing 40 mCi of Technetium 99m-DTPA. Perfusion was performed with 5.1 mCi of technetium 99m-MAA injected intravenously. Multiple side by side projections obtained. Findings: Possible moderate-sized segmental mismatch seen on some views not definitively seen on others. Given these inconsistencies, difficult to categorize as low or high probability. CTA Chest w Contrast ndication: Chest pain Technique: IV administration nonionic contrast. Spiral acquisitions obtained from the lung bases to the lung apices. Multiplanar and 3-D reconstructions were generated. Total dose length product 749.29 mGycm. CTDIvol(s) 22.41 mGy. Dose reduction achieved using automated exposure control Comparison: 04/30/2017 Findings: Opacification of the the pulmonary arteries is suboptimal, and only large central pulmonary emboli can't be excluded with any confidence. Again demonstrated is evidence of extensive central venoocclusive disease, with extensive mediastinal, paraspinous, and chest wall collaterals. Very unusual collaterals are seen in the pulmonary chente The thoracic aorta is well-opacified, and there is no evidence of thoracic aortic aneurysm or dissection. Normal caliber pulmonary artery. No evidence of right ventricular dilatation. Interval development of a [id number] right pleural effusion. There is trace left pleural fluid as well. There is groundglass opacity at the right lung base, probably representing compressive atelectatic changes. There may be mild interstitial congestion. There is a very large hiatal hernia, contains approximately half of the stomach. Some calcifications are seen in the periphery of the thyroid. No mediastinal or hilar mass or adenopathy. There is a groin approach dialysis catheter tip seen in the inferior vena cava, tip at the orifice. Extensive calcifications are seen in both breasts. No axillary or chest wall mass or adenopathy demonstrated. The bones are unremarkable. Bilateral breast calcifications surgical clips and vascular stents are seen in the bilateral axillae The included upper abdominal anatomy is unremarkable. Impression: Poor quality opacification of the pulmonary arteries. Probably related to the presence of extensive central venoocclusive disease. No large vessel central pulmonary and was demonstrated, but peripheral pulmonary emboli cannot be excluded with any confidence. No evidence of right heart strain Interim development of a moderate size right pleural effusion. There is resultant increased compressive atelectasis of the right lung. Extensive central venoocclusive disease, resulting in extensive and somewhat unusual mediastinal and chest wall collaterals. Mild interstitial congestion Very large hiatal hernia, containing approximately half of the stomach. Repeat CT Chest: 07/14/2017 o definite evidence of acute pulmonary embolus Extensive central venoocclusive disease with extensive mediastinal and chest wall collaterals along also previously described Since previous exam of 05/22/2017, marked improvement of previously demonstrated right pleural effusion, now only trace pleural fluid present 6 mm right upper lobe nodule, not definitely evident previously, possibly obscured by surrounding previous pathology. If there is significant risk factors for lung carcinoma, short interval follow-up in 6-12 months is recommended. No further follow-up necessary if no significant risk factors Otherwise minimal parenchymal disease, as described, improved from 05/22/2017 Massive hiatal hernia, also previously described Distal esophageal wall thickening, could indicate esophagitis, also demonstrated previously. Transfemoral dialysis catheter noted Echocardiogram: Normal left ventricular chamber size, systolic function and wall motion. Left ventricular ejection fraction estimated to be 60-65%. No evidence of left ventricular hypertrophy. No evidence of pericardial or pleural effusion. All other cardiac chamber sizes are within normal limits. Focal aortic valve sclerosis with adequate cusp excursion. Thickened mitral valve leaflets with normal excursion. Mild mitral annulus and aortic root calcification. Pulmonic valve not well visualized. Normal tricuspid valve structure. IVC is normal in size and collapsible with respiration. A color flow and spectral Doppler study was performed and revealed: No aortic regurgitation. No mitral regurgitation. Mitral diastolic velocities suggest reduced left ventricular relaxation c/w diastolic dysfunction grade 1. No tricuspid regurgitation. Critical Care - Objective Last 24 Hour Vital Signs Date Time Temp Pulse Resp B/P (MAP) Pulse Ox O2 Delivery O2 Flow Rate FiO2 07/17/17 16:00 97.9 65 20 93/75 97 Nasal Cannula 4.0 97.9 07/17/17 12:00 97.7 61 20 75/49 94 Nasal Cannula 4.0 97.7 07/17/17 11:47 68 07/17/17 08:00 96.6 65 19 82/50 96 Nasal Cannula 4.0 96.6 07/17/17 07:50 69 07/17/17 04:00 63 07/17/17 04:00 97.9 63 18 85/43 97 Nasal Cannula 4.0 97.9 07/17/17 00:00 98.1 61 18 94/48 96 Nasal Cannula 4.0 98.1 07/17/17 00:00 62 07/16/17 20:00 97.7 72 20 93/41 90 Nasal Cannula 4.0 97.7 07/16/17 20:00 68 07/16/17 18:54 Room Air 2.0 Critical Care - Subjective ROS Limited/Unobtainable: Yes Condition: stable IV Access: peripheral EKG Rhythm: Sinus Rhythm I&O: Intake and Output 07/16/17 07/17/17 19:00 07:00 Intake Total 300 ml Output Total 2900 ml Balance -2900 ml 300 ml Intake Oral 300 ml Hemodialysis UF 2900 ml Sly Waller M.D. Jul 17, 2017 18:14
[2017-07-17 20:00] VITALS: BP 82/43
[2017-07-18] VITALS: BP 84/47
[2017-07-18 04:00] VITALS: BP 85/49
[2017-07-18 07:27] LABS: ANION GAP 12 mmol/L (5-15); BLOOD UREA NITROGEN 40 mg/dL (7-18); CALCIUM 8.8 MG/DL (8.5-10.1); CARBON DIOXIDE 32 MMOL/L (21-32); CHLORIDE 98 MMOL/L (98-107); CREATININE 10.6 MG/DL (0.55-1.30); POTASSIUM 4.3 MMOL/L (3.5-5.1); SODIUM 141 MMOL/L (136-145)
[2017-07-18 07:31] LABS: BASOPHILS % (AUTO) 1.3 % (0.0-2.0); EOSINOPHILS % (AUTO) 9.9 % (0.0-3.0); HEMATOCRIT 34.9 % (37.0-47.0); HEMOGLOBIN 11.6 G/DL (12.0-16.0); LYMPHOCYTES % (AUTO) 36.1 % (20.0-45.0); MEAN CORPUSCULAR VOLUME 97 FL (80-99); MONOCYTES % (AUTO) 5.8 % (1.0-10.0); NEUTROPHILS % (AUTO) 46.9 % (45.0-75.0); PLATELET COUNT 119 K/UL (150-450); RED CELL DISTRIBUTION WIDTH 16.1 % (11.6-14.8); WHITE BLOOD COUNT 4.6 K/UL (4.8-10.8)
[2017-07-18 08:00] VITALS: BP 85/46
[2017-07-18] MEDS: Nephrovite tab (Rena-Vite) ORAL SCH (08:20)
[2017-07-18] MEDS: Midodrine 10mg tab ORAL SCH ×3 (08:20→18:05)
[2017-07-18] MEDS: Heparin 5000 units/ml inj SUBQ SCH ×2 (08:21→20:43)
--- NOTE | 2017-07-18 11:06 | Internal Med Progress Note ---
Subjective Date of Service: Jul 18, 2017 Physician Name Shavonne Ugalde Attending Physician Ash Henley MD Current Medications Medications (Trade) Dose Ordered Sig/Marcos Route PRN Reason Start Time Stop Time Status Last Admin Dose Admin Acetaminophen (Tylenol) 650 mg Q6H PRN ORAL Mild Pain/Temp > 100.5 07/17/17 18:15 08/13/17 18:14 Cinacalcet (Sensipar) 30 mg WED-WED-WED ORAL 07/19/17 21:00 08/11/17 20:59 Diphenhydramine HCl (Benadryl) 25 mg Q6H PRN ORAL Itching 07/17/17 18:15 08/13/17 18:14 Heparin Sodium (Porcine) (Heparin 5000 units/ml) 5,000 units EVERY 12 HOURS SUBQ 07/17/17 21:00 08/11/17 08:59 Loperamide HCl (Imodium) 2 mg Q4H PRN ORAL Diarrhea 07/17/17 18:00 08/16/17 17:59 Midodrine (Pro-Amatine) 10 mg THREE TIMES A DAY ORAL 07/18/17 09:00 08/17/17 08:59 07/18/17 08:20 Pantoprazole (Protonix) 40 mg DAILY ORAL 07/18/17 09:00 08/11/17 08:59 07/18/17 08:20 Sevelamer Carbonate (Renvela) 1,600 mg THREE TIMES A DAY ORAL 07/18/17 09:00 08/17/17 08:59 07/18/17 08:21 Vitamin B Complex/ Vit C/Folic Acid (Nephrovite) 1 tab DAILY ORAL 07/18/17 09:00 08/11/17 08:59 07/18/17 08:20 Zolpidem Tartrate (Ambien) 5 mg HSPRN PRN ORAL Insomnia 07/17/17 18:00 07/18/17 17:59 07/18/17 00:26 Allergies: Coded Allergies: CEFAZOLIN (Verified Allergy, Unknown, 10/02/10) CIPROFLOXACIN (Verified Allergy, Unknown, 10/02/10) GENTAMICIN (Verified Allergy, Unknown, 10/02/10) LEVOFLOXACIN (Verified Allergy, Unknown, 10/02/10) PENICILLINS (Verified Allergy, Unknown, ITCH, 10/02/10) Uncoded Allergies: CONTRAST MEDIA (Adverse Reaction, Mild, MILD ITCHING AFTER CONTRAST MEDIA, 04/30/17) ROS Limited/Unobtainable: No Constitutional: Reports: no symptoms HEENT: Reports: no symptoms Cardiovascular: Reports: no symptoms Respiratory: Reports: shortness of breath Gastrointestinal/Abdominal: Reports: no symptoms Genitourinary: Reports: no symptoms Neurologic/Psychiatric: Reports: no symptoms Subjective 52 YO F admitted with shortness of breath. Now CHF and volume overload. Cover for Int John-Dr Henley. Objective Last Vital Signs Date Time Temp Pulse Resp B/P (MAP) Pulse Ox O2 Delivery O2 Flow Rate FiO2 07/18/17 08:00 97.7 75 18 85/46 99 97.7 07/17/17 16:00 Nasal Cannula 4.0 Laboratory Tests Test 07/18/17 05:25 White Blood Count 4.6 K/UL (4.8-10.8) L Red Blood Count 3.60 M/UL (4.20-5.40) L Hemoglobin 11.6 G/DL (12.0-16.0) L Hematocrit 34.9 % (37.0-47.0) L Mean Corpuscular Volume 97 FL (80-99) Mean Corpuscular Hemoglobin 32.3 PG (27.0-31.0) H Mean Corpuscular Hemoglobin Concent 33.3 G/DL (32.0-36.0) Red Cell Distribution Width 16.1 % (11.6-14.8) H Platelet Count 119 K/UL (150-450) L Mean Platelet Volume 8.7 FL (6.5-10.1) Neutrophils (%) (Auto) 46.9 % (45.0-75.0) Lymphocytes (%) (Auto) 36.1 % (20.0-45.0) Monocytes (%) (Auto) 5.8 % (1.0-10.0) Eosinophils (%) (Auto) 9.9 % (0.0-3.0) H Basophils (%) (Auto) 1.3 % (0.0-2.0) Sodium Level 141 MMOL/L (136-145) Potassium Level 4.3 MMOL/L (3.5-5.1) Chloride Level 98 MMOL/L (98-107) Carbon Dioxide Level 32 MMOL/L (21-32) Anion Gap 12 mmol/L (5-15) Blood Urea Nitrogen 40 mg/dL (7-18) H Creatinine 10.6 MG/DL (0.55-1.30) H Estimat Glomerular Filtration Rate 4.6 mL/min (>60) Glucose Level 82 MG/DL (74-106) Calcium Level 8.8 MG/DL (8.5-10.1) Intake and Output 07/17/17 07/18/17 19:00 07:00 Intake Total 460 ml Balance 460 ml Intake Oral 460 ml # Voids 2 1 Objective General Appearance: WD/WN, no apparent distress, alert EENT: PERRL/EOMI, normal ENT inspection, pharynx normal Neck: non-tender, normal alignment, supple, normal inspection Cardiovascular: normal peripheral pulses, normal rate, regular rhythm, no gallop/murmur, no JVD Respiratory/Chest: chest wall non-tender, respiratory distress, crackles/rales , rhonchi - bilaterally, expiratory wheezing Abdomen: normal bowel sounds, non tender, soft, no organomegaly, no mass Extremities: normal range of motion, non-tender Neurologic: development mgr II-XII grossly normal, no motor/sensory deficits Skin: normal pigmentation, warm/dry Assessment/Plan Problem List: (1) Anemia (2) Dyspnea (3) ESRD (end stage renal disease) on dialysis Assessment & Plan: S/P hemodialysis 07/14; next hemodialysis 07/16/17. See nephrology note. (4) HTN (hypertension) (5) CHF (congestive heart failure) Assessment & Plan: See cardiology note. (6) Pulmonary embolism Assessment & Plan: Low probability-see pulmonary consult note. Await hematology consult. ?need for anticoagulation?-see cardiology note 07/13 (7) Respiratory failure Assessment & Plan: ?volume ovrload?See pulmonary note. (8) Hypoparathyroidism (9) Diarrhea Assessment & Plan: Stool culture and C.Diff pending. Imodium prn Status: progressing Assessment/Plan Discharge planning SHAVONNE UGALDE Jul 18, 2017 11:06
[2017-07-18 12:00] VITALS: BP 92/59
--- NOTE | 2017-07-18 13:33 | General Progress Note ---
Assessment/Plan Assessment/Plan #. Anemia due to underlying end-stage renal disease, on Epogen as needed. --> Thus far, chemistry has been reviewed. --> Lifelong chemistry has been reviewed as well. Ferritin normal does not require any iron. --> Hemoglobin levels have been within normal levels --> On hemodialysis as needed. --> Blood transfusion not required at this time. #. Thrombocytopenia. --> We will send out for hepatitis and human immunodeficiency virus panel at this time. --> Imaging of the abdomen has been reviewed. --> Transfuse if hgb <20k #. Extensive venous occlusive disease noted. --> Troponin negative. EKG negative. Peripheral emboli cannot be excluded. --> At this time, given thrombocytopenia, I do not recommend the use of anticoagulation and closely monitor for underlying causes. #. Shortness of breath, likely secondary to venous occlusive disease, which is chronic in nature. --> No large clot noted, therefore, unknown this would benefit from anticoagulation. #. Acute respiratory failure and hypoxemia. #. End-stage renal disease, on hemodialysis. #. Hypotension. #. Hiatal hernia. #. Bronchitis. Closely monitor. Subjective Date patient seen: Jul 17, 2017 Constitutional: Denies: no symptoms, chills, diaphoresis, fever, malaise, weakness, other HEENT: Denies: no symptoms, eye pain, blurred vision, tearing, double vision, ear pain, ear discharge, nose pain, nose congestion, throat pain, throat swelling, mouth pain, mouth swelling, other Cardiovascular: Denies: no symptoms, chest pain, edema, irregular heart rate, lightheadedness, palpitations, syncope, other Respiratory: Denies: no symptoms, cough, orthopnea, shortness of breath, SOB with excertion, SOB at rest, sputum, stridor, wheezing, other Gastrointestinal/Abdominal: Denies: no symptoms, abdomen distended, abdominal pain, black stools, tarry stools, blood in stool, constipated, diarrhea, difficulty swallowing, nausea, poor appetite, poor fluid intake, rectal bleeding , vomiting, other Genitourinary: Denies: no symptoms, burning, discharge, frequency, flank pain, hematuria, incontinence, pain, urgency, other Neurologic/Psychiatric: Denies: no symptoms, anxiety, depressed, emotional problems, headache, numbness, paresthesia, pre-existing deficit, seizure, tingling, tremors, weakness, other Hematologic/Lymphatic: Reports: anemia Allergies: Coded Allergies: CEFAZOLIN (Verified Allergy, Unknown, 10/02/10) CIPROFLOXACIN (Verified Allergy, Unknown, 10/02/10) GENTAMICIN (Verified Allergy, Unknown, 10/02/10) LEVOFLOXACIN (Verified Allergy, Unknown, 10/02/10) PENICILLINS (Verified Allergy, Unknown, ITCH, 10/02/10) Uncoded Allergies: CONTRAST MEDIA (Adverse Reaction, Mild, MILD ITCHING AFTER CONTRAST MEDIA, 04/30/17) Subjective Hypotensive. No fever or chills. Resting in bed. Objective Last 24 Hour Vital Signs Date Time Temp Pulse Resp B/P (MAP) Pulse Ox O2 Delivery O2 Flow Rate FiO2 07/18/17 12:00 96.4 72 18 92/59 95 96.4 07/18/17 08:00 97.7 75 18 85/46 99 97.7 07/18/17 04:00 97.7 61 19 85/49 100 97.7 07/18/17 00:00 97.5 62 20 84/47 91 97.5 07/17/17 20:00 97.0 66 19 82/43 90 97.0 07/17/17 16:00 97.9 65 20 93/75 97 Nasal Cannula 4.0 97.9 Intake and Output 07/17/17 07/18/17 19:00 07:00 Intake Total 460 ml Balance 460 ml Intake Oral 460 ml # Voids 2 1 Laboratory Tests 07/18/17 05:25: White Blood Count 4.6L, Red Blood Count 3.60L, Hemoglobin 11.6L, Hematocrit 34.9L, Mean Corpuscular Volume 97, Mean Corpuscular Hemoglobin 32.3H, Mean Corpuscular Hemoglobin Concent 33.3, Red Cell Distribution Width 16.1H, Platelet Count 119L, Mean Platelet Volume 8.7, Neutrophils (%) (Auto) 46.9, Lymphocytes (%) (Auto) 36.1, Monocytes (%) (Auto) 5.8, Eosinophils (%) (Auto) 9.9H, Basophils (%) (Auto) 1.3, Sodium Level 141, Potassium Level 4.3, Chloride Level 98, Carbon Dioxide Level 32, Anion Gap 12, Blood Urea Nitrogen 40H, Creatinine 10.6H, Estimat Glomerular Filtration Rate 4.6, Glucose Level 82, Calcium Level 8.8 Height (Feet): 5 Height (Inches): 6.00 Weight (Pounds): 195 Respiratory/Chest: decreased breath sounds Abdomen: soft Byron Wade MD Jul 18, 2017 13:33
--- NOTE | 2017-07-18 13:59 | Nephrology Progress Note ---
Assessment/Plan Problem List: (1) Hypoparathyroidism (2) ESRD (end stage renal disease) on dialysis (3) Hypotension Assessment ESRD Dyspnea / hypoxia Hypotension s/p Parathyroid surgery Plan \Plan: Dialysis next 07/19 Per consultants Midodrine for low BP per orders Subjective ROS Limited/Unobtainable: No Constitutional: Reports: malaise Objective Objective Last 24 Hour Vital Signs Date Time Temp Pulse Resp B/P (MAP) Pulse Ox O2 Delivery O2 Flow Rate FiO2 07/18/17 12:00 96.4 72 18 92/59 95 96.4 07/18/17 08:00 97.7 75 18 85/46 99 97.7 07/18/17 04:00 97.7 61 19 85/49 100 97.7 07/18/17 00:00 97.5 62 20 84/47 91 97.5 07/17/17 20:00 97.0 66 19 82/43 90 97.0 07/17/17 16:00 97.9 65 20 93/75 97 Nasal Cannula 4.0 97.9 Intake and Output 07/17/17 07/18/17 19:00 07:00 Intake Total 460 ml Balance 460 ml Intake Oral 460 ml # Voids 2 1 Laboratory Tests 07/18/17 05:25: White Blood Count 4.6L, Red Blood Count 3.60L, Hemoglobin 11.6L, Hematocrit 34.9L, Mean Corpuscular Volume 97, Mean Corpuscular Hemoglobin 32.3H, Mean Corpuscular Hemoglobin Concent 33.3, Red Cell Distribution Width 16.1H, Platelet Count 119L, Mean Platelet Volume 8.7, Neutrophils (%) (Auto) 46.9, Lymphocytes (%) (Auto) 36.1, Monocytes (%) (Auto) 5.8, Eosinophils (%) (Auto) 9.9H, Basophils (%) (Auto) 1.3, Sodium Level 141, Potassium Level 4.3, Chloride Level 98, Carbon Dioxide Level 32, Anion Gap 12, Blood Urea Nitrogen 40H, Creatinine 10.6H, Estimat Glomerular Filtration Rate 4.6, Glucose Level 82, Calcium Level 8.8 Height (Feet): 5 Height (Inches): 6.00 Weight (Pounds): 195 General Appearance: no apparent distress Objective no change EDUARDO ROSE Jul 18, 2017 13:59
[2017-07-18 16:00] VITALS: BP 94/55
[2017-07-18 20:00] VITALS: BP 96/51
[2017-07-19] VITALS: BP 95/49
--- NOTE | 2017-07-19 00:45 | General Progress Note ---
Assessment/Plan Assessment/Plan #. Anemia due to underlying end-stage renal disease, on Epogen as needed. --> Thus far, chemistry has been reviewed. --> Lifelong chemistry has been reviewed as well. Ferritin normal does not require any iron. --> Hemoglobin levels have been within normal levels --> On hemodialysis as needed. --> Blood transfusion not required at this time. #. Thrombocytopenia. --> We will send out for hepatitis and human immunodeficiency virus panel at this time. --> Imaging of the abdomen has been reviewed. --> Transfuse if hgb <20k #. Extensive venous occlusive disease noted. --> Troponin negative. EKG negative. Peripheral emboli cannot be excluded. --> At this time, given thrombocytopenia, I do not recommend the use of anticoagulation and closely monitor for underlying causes. #. Shortness of breath, likely secondary to venous occlusive disease, which is chronic in nature. --> No large clot noted, therefore, unknown this would benefit from anticoagulation. #. Acute respiratory failure and hypoxemia. #. End-stage renal disease, on hemodialysis. #. Hypotension. #. Hiatal hernia. #. Bronchitis. Closely monitor. Subjective Date patient seen: Jul 18, 2017 Constitutional: Denies: no symptoms, chills, diaphoresis, fever, malaise, weakness, other HEENT: Denies: no symptoms, eye pain, blurred vision, tearing, double vision, ear pain, ear discharge, nose pain, nose congestion, throat pain, throat swelling, mouth pain, mouth swelling, other Cardiovascular: Denies: no symptoms, chest pain, edema, irregular heart rate, lightheadedness, palpitations, syncope, other Respiratory: Denies: no symptoms, cough, orthopnea, shortness of breath, SOB with excertion, SOB at rest, sputum, stridor, wheezing, other Gastrointestinal/Abdominal: Denies: no symptoms, abdomen distended, abdominal pain, black stools, tarry stools, blood in stool, constipated, diarrhea, difficulty swallowing, nausea, poor appetite, poor fluid intake, rectal bleeding , vomiting, other Genitourinary: Denies: no symptoms, burning, discharge, frequency, flank pain, hematuria, incontinence, pain, urgency, other Neurologic/Psychiatric: Denies: no symptoms, anxiety, depressed, emotional problems, headache, numbness, paresthesia, pre-existing deficit, seizure, tingling, tremors, weakness, other Hematologic/Lymphatic: Reports: anemia Allergies: Coded Allergies: CEFAZOLIN (Verified Allergy, Unknown, 10/02/10) CIPROFLOXACIN (Verified Allergy, Unknown, 10/02/10) GENTAMICIN (Verified Allergy, Unknown, 10/02/10) LEVOFLOXACIN (Verified Allergy, Unknown, 10/02/10) PENICILLINS (Verified Allergy, Unknown, ITCH, 10/02/10) Uncoded Allergies: CONTRAST MEDIA (Adverse Reaction, Mild, MILD ITCHING AFTER CONTRAST MEDIA, 04/30/17) Subjective Remains hypotensive. Resting in bed. No new events. Objective Last 24 Hour Vital Signs Date Time Temp Pulse Resp B/P (MAP) Pulse Ox O2 Delivery O2 Flow Rate FiO2 07/18/17 16:00 97.7 64 19 94/55 92 97.7 07/18/17 12:00 96.4 72 18 92/59 95 96.4 07/18/17 08:00 97.7 75 18 85/46 99 97.7 07/18/17 04:00 97.7 61 19 85/49 100 97.7 Intake and Output 07/18/17 07/19/17 19:00 07:00 Intake Total 480 ml Balance 480 ml Intake Oral 480 ml Laboratory Tests 07/18/17 05:25: White Blood Count 4.6L, Red Blood Count 3.60L, Hemoglobin 11.6L, Hematocrit 34.9L, Mean Corpuscular Volume 97, Mean Corpuscular Hemoglobin 32.3H, Mean Corpuscular Hemoglobin Concent 33.3, Red Cell Distribution Width 16.1H, Platelet Count 119L, Mean Platelet Volume 8.7, Neutrophils (%) (Auto) 46.9, Lymphocytes (%) (Auto) 36.1, Monocytes (%) (Auto) 5.8, Eosinophils (%) (Auto) 9.9H, Basophils (%) (Auto) 1.3, Sodium Level 141, Potassium Level 4.3, Chloride Level 98, Carbon Dioxide Level 32, Anion Gap 12, Blood Urea Nitrogen 40H, Creatinine 10.6H, Estimat Glomerular Filtration Rate 4.6, Glucose Level 82, Calcium Level 8.8 Height (Feet): 5 Height (Inches): 6.00 Weight (Pounds): 195 General Appearance: lethargic Respiratory/Chest: decreased breath sounds Kleynberg,Byron L. MD Jul 19, 2017 00:44
[2017-07-19 04:00] VITALS: BP 82/40
[2017-07-19 06:26] LABS: BASOPHILS % (AUTO) 1.2 % (0.0-2.0); EOSINOPHILS % (AUTO) 12.2 % (0.0-3.0); HEMATOCRIT 34.2 % (37.0-47.0); HEMOGLOBIN 11.1 G/DL (12.0-16.0); LYMPHOCYTES % (AUTO) 31.4 % (20.0-45.0); MEAN CORPUSCULAR VOLUME 95 FL (80-99); MONOCYTES % (AUTO) 6.3 % (1.0-10.0); NEUTROPHILS % (AUTO) 48.9 % (45.0-75.0); PLATELET COUNT 111 K/UL (150-450); RED BLOOD COUNT 3.58 M/UL (4.20-5.40); RED CELL DISTRIBUTION WIDTH 15.3 % (11.6-14.8); WHITE BLOOD COUNT 4.6 K/UL (4.8-10.8)
[2017-07-19 07:34] LABS: ANION GAP 12 mmol/L (5-15); BLOOD UREA NITROGEN 51 mg/dL (7-18); CALCIUM 8.8 MG/DL (8.5-10.1); CARBON DIOXIDE 29 MMOL/L (21-32); CHLORIDE 100 MMOL/L (98-107); CREATININE 12.3 MG/DL (0.55-1.30); POTASSIUM 4.4 MMOL/L (3.5-5.1); SODIUM 141 MMOL/L (136-145)
[2017-07-19] MEDS: Heparin 5000 units/ml inj SUBQ SCH ×2 (09:00→20:43)
[2017-07-19] MEDS: Midodrine 10mg tab ORAL SCH ×3 (09:00→17:15)
--- NOTE | 2017-07-19 09:53 | Nephrology Progress Note ---
Assessment/Plan Problem List: (1) Hypoparathyroidism (2) ESRD (end stage renal disease) on dialysis (3) Hypotension Assessment ESRD Dyspnea / hypoxia Hypotension s/p Parathyroid surgery Plan \Plan: Dialysis next 07/19 Per consultants Midodrine for low BP per orders Subjective ROS Limited/Unobtainable: No Constitutional: Reports: malaise Objective Objective Last 24 Hour Vital Signs Date Time Temp Pulse Resp B/P (MAP) Pulse Ox O2 Delivery O2 Flow Rate FiO2 07/19/17 04:00 97.5 80 18 82/40 89 Room Air 97.5 07/19/17 00:00 96.6 79 20 95/49 90 96.6 07/18/17 20:00 97.0 71 19 96/51 91 97.0 07/18/17 16:00 97.7 64 19 94/55 92 97.7 07/18/17 12:00 96.4 72 18 92/59 95 96.4 Intake and Output 07/18/17 07/19/17 19:00 07:00 Intake Total 480 ml Balance 480 ml Intake Oral 480 ml # Voids 1 # Bowel Movements 1 Laboratory Tests 07/19/17 06:00: White Blood Count 4.6L, Red Blood Count 3.58L, Hemoglobin 11.1L, Hematocrit 34.2L, Mean Corpuscular Volume 95, Mean Corpuscular Hemoglobin 31.0, Mean Corpuscular Hemoglobin Concent 32.5, Red Cell Distribution Width 15.3H, Platelet Count 111L, Mean Platelet Volume 8.2, Neutrophils (%) (Auto) 48.9, Lymphocytes (%) (Auto) 31.4, Monocytes (%) (Auto) 6.3, Eosinophils (%) (Auto) 12.2H, Basophils (%) (Auto) 1.2, Sodium Level 141, Potassium Level 4.4, Chloride Level 100, Carbon Dioxide Level 29, Anion Gap 12, Blood Urea Nitrogen 51H, Creatinine 12.3H, Estimat Glomerular Filtration Rate 3.9, Glucose Level 90 , Calcium Level 8.8 Height (Feet): 5 Height (Inches): 6.00 Weight (Pounds): 198 General Appearance: no apparent distress Objective no change EDUARDO ROSE Jul 19, 2017 09:53
[2017-07-19] MEDS: Nephrovite tab (Rena-Vite) ORAL SCH (10:22)
[2017-07-19 12:00] VITALS: BP 86/51
--- NOTE | 2017-07-19 12:47 | Internal Med Progress Note ---
Subjective Date of Service: Jul 19, 2017 Physician Name Shavonne Ugalde Attending Physician Ash Henley MD Current Medications Medications (Trade) Dose Ordered Sig/Marcos Route PRN Reason Start Time Stop Time Status Last Admin Dose Admin Acetaminophen (Tylenol) 650 mg Q6H PRN ORAL Mild Pain/Temp > 100.5 07/17/17 18:15 08/13/17 18:14 Cinacalcet (Sensipar) 30 mg WED-WED-WED ORAL 07/19/17 21:00 08/11/17 20:59 Diphenhydramine HCl (Benadryl) 25 mg Q6H PRN ORAL Itching 07/17/17 18:15 08/13/17 18:14 07/19/17 00:25 Heparin Sodium (Porcine) (Heparin 5000 units/ml) 5,000 units EVERY 12 HOURS SUBQ 07/17/17 21:00 08/11/17 08:59 Loperamide HCl (Imodium) 2 mg Q4H PRN ORAL Diarrhea 07/17/17 18:00 08/16/17 17:59 Midodrine (Pro-Amatine) 10 mg THREE TIMES A DAY ORAL 07/18/17 09:00 08/17/17 08:59 07/18/17 18:05 Pantoprazole (Protonix) 40 mg DAILY ORAL 07/18/17 09:00 08/11/17 08:59 07/19/17 10:22 Sevelamer Carbonate (Renvela) 1,600 mg THREE TIMES A DAY ORAL 07/18/17 09:00 08/17/17 08:59 07/19/17 10:23 Vitamin B Complex/ Vit C/Folic Acid (Nephrovite) 1 tab DAILY ORAL 07/18/17 09:00 08/11/17 08:59 07/19/17 10:22 Allergies: Coded Allergies: CEFAZOLIN (Verified Allergy, Unknown, 10/02/10) CIPROFLOXACIN (Verified Allergy, Unknown, 10/02/10) GENTAMICIN (Verified Allergy, Unknown, 10/02/10) LEVOFLOXACIN (Verified Allergy, Unknown, 10/02/10) PENICILLINS (Verified Allergy, Unknown, ITCH, 10/02/10) Uncoded Allergies: CONTRAST MEDIA (Adverse Reaction, Mild, MILD ITCHING AFTER CONTRAST MEDIA, 04/30/17) ROS Limited/Unobtainable: No Constitutional: Reports: no symptoms HEENT: Reports: no symptoms Cardiovascular: Reports: chest pain Respiratory: Reports: shortness of breath Gastrointestinal/Abdominal: Reports: no symptoms Genitourinary: Reports: no symptoms Neurologic/Psychiatric: Reports: no symptoms Subjective 52 YO F admitted with shortness of breath. Now CHF and volume overload. Cover for Int John-Dr Henley. Objective Last Vital Signs Date Time Temp Pulse Resp B/P (MAP) Pulse Ox O2 Delivery O2 Flow Rate FiO2 07/19/17 12:00 96.8 80 17 86/51 93 96.8 07/19/17 04:00 Room Air 07/17/17 16:00 4.0 Laboratory Tests Test 07/19/17 06:00 White Blood Count 4.6 K/UL (4.8-10.8) L Red Blood Count 3.58 M/UL (4.20-5.40) L Hemoglobin 11.1 G/DL (12.0-16.0) L Hematocrit 34.2 % (37.0-47.0) L Mean Corpuscular Volume 95 FL (80-99) Mean Corpuscular Hemoglobin 31.0 PG (27.0-31.0) Mean Corpuscular Hemoglobin Concent 32.5 G/DL (32.0-36.0) Red Cell Distribution Width 15.3 % (11.6-14.8) H Platelet Count 111 K/UL (150-450) L Mean Platelet Volume 8.2 FL (6.5-10.1) Neutrophils (%) (Auto) 48.9 % (45.0-75.0) Lymphocytes (%) (Auto) 31.4 % (20.0-45.0) Monocytes (%) (Auto) 6.3 % (1.0-10.0) Eosinophils (%) (Auto) 12.2 % (0.0-3.0) H Basophils (%) (Auto) 1.2 % (0.0-2.0) Sodium Level 141 MMOL/L (136-145) Potassium Level 4.4 MMOL/L (3.5-5.1) Chloride Level 100 MMOL/L (98-107) Carbon Dioxide Level 29 MMOL/L (21-32) Anion Gap 12 mmol/L (5-15) Blood Urea Nitrogen 51 mg/dL (7-18) H Creatinine 12.3 MG/DL (0.55-1.30) H Estimat Glomerular Filtration Rate 3.9 mL/min (>60) Glucose Level 90 MG/DL (74-106) Calcium Level 8.8 MG/DL (8.5-10.1) Microbiology Date/Time Source Procedure Growth Status 07/18/17 21:00 Stool Worksheet Intake and Output 07/18/17 07/19/17 19:00 07:00 Intake Total 480 ml Balance 480 ml Intake Oral 480 ml # Voids 1 # Bowel Movements 1 Objective General Appearance: WD/WN, no apparent distress, alert EENT: PERRL/EOMI, normal ENT inspection, pharynx normal Neck: non-tender, normal alignment, supple, normal inspection Cardiovascular: normal peripheral pulses, normal rate, regular rhythm, no gallop/murmur, no JVD Respiratory/Chest: chest wall non-tender, respiratory distress, crackles/rales , rhonchi - bilaterally, expiratory wheezing Abdomen: normal bowel sounds, non tender, soft, no organomegaly, no mass Extremities: normal range of motion, non-tender Neurologic: government affairs specialist II-XII grossly normal, no motor/sensory deficits Skin: normal pigmentation, warm/dry Assessment/Plan Problem List: (1) Anemia (2) Dyspnea (3) ESRD (end stage renal disease) on dialysis Assessment & Plan: S/P hemodialysis 07/16; next hemodialysis 07/19/17. See nephrology note. (4) HTN (hypertension) (5) CHF (congestive heart failure) Assessment & Plan: See cardiology note. (6) Pulmonary embolism Assessment & Plan: Low probability-see pulmonary consult note. Await hematology consult. ?need for anticoagulation?-see cardiology note 07/13 (7) Respiratory failure Assessment & Plan: ?volume ovrload?See pulmonary note. (8) Hypoparathyroidism (9) Diarrhea Assessment & Plan: Stool culture and C.Diff pending. Imodium prn Status: stable Assessment/Plan Discharge planning SHAVONNE UGALDE Jul 19, 2017 12:47
[2017-07-19 16:00] VITALS: BP 91/53
[2017-07-19 20:00] VITALS: BP 86/47
[2017-07-19] MEDS ORDERED: Sensipar 30mg Tab ORAL SCH (21:00)
--- NOTE | 2017-07-19 22:44 | Pulmonology Progress Note ---
Assessment/Plan Problems: (1) CHF (congestive heart failure) (2) HTN (hypertension) (3) Dyspnea (4) Anemia (5) ESRD (end stage renal disease) on dialysis Assessment/Plan less short of breath improving HD in am check electrolytes h/h stable symptomatic treatment. Subjective ROS Limited/Unobtainable: No Interval Events: less short of breath Allergies: Coded Allergies: CEFAZOLIN (Verified Allergy, Unknown, 10/02/10) CIPROFLOXACIN (Verified Allergy, Unknown, 10/02/10) GENTAMICIN (Verified Allergy, Unknown, 10/02/10) LEVOFLOXACIN (Verified Allergy, Unknown, 10/02/10) PENICILLINS (Verified Allergy, Unknown, ITCH, 10/02/10) Uncoded Allergies: CONTRAST MEDIA (Adverse Reaction, Mild, MILD ITCHING AFTER CONTRAST MEDIA, 04/30/17) Objective Last 24 Hour Vital Signs Date Time Temp Pulse Resp B/P (MAP) Pulse Ox O2 Delivery O2 Flow Rate FiO2 07/19/17 20:17 Room Air 07/19/17 20:00 98.0 74 19 86/47 90 98.0 07/19/17 16:30 Room Air 4.0 07/19/17 16:00 97.0 79 18 91/53 94 97.0 07/19/17 12:00 Room Air 07/19/17 12:00 96.8 80 17 86/51 93 96.8 07/19/17 04:00 97.5 80 18 82/40 89 Room Air 97.5 07/19/17 00:00 96.6 79 20 95/49 90 96.6 Intake and Output 07/18/17 07/19/17 19:00 07:00 Intake Total 480 ml Balance 480 ml Intake Oral 480 ml # Voids 1 # Bowel Movements 1 General Appearance: WD/WN HEENT: normocephalic, atraumatic Respiratory/Chest: chest wall non-tender, lungs clear Cardiovascular: normal peripheral pulses, normal rate Abdomen: normal bowel sounds, soft, non tender Genitourinary: normal external genitalia Extremities: no cyanosis Lymphatic: no neck adenopathy Microbiology Date/Time Source Procedure Growth Status 07/18/17 21:00 Stool Worksheet Laboratory Tests 07/19/17 06:00: White Blood Count 4.6L, Red Blood Count 3.58L, Hemoglobin 11.1L, Hematocrit 34.2L, Mean Corpuscular Volume 95, Mean Corpuscular Hemoglobin 31.0, Mean Corpuscular Hemoglobin Concent 32.5, Red Cell Distribution Width 15.3H, Platelet Count 111L, Mean Platelet Volume 8.2, Neutrophils (%) (Auto) 48.9, Lymphocytes (%) (Auto) 31.4, Monocytes (%) (Auto) 6.3, Eosinophils (%) (Auto) 12.2H, Basophils (%) (Auto) 1.2, Sodium Level 141, Potassium Level 4.4, Chloride Level 100, Carbon Dioxide Level 29, Anion Gap 12, Blood Urea Nitrogen 51H, Creatinine 12.3H, Estimat Glomerular Filtration Rate 3.9, Glucose Level 90 , Calcium Level 8.8 Current Medications Medications (Trade) Dose Ordered Sig/Marcos Route PRN Reason Start Time Stop Time Status Last Admin Dose Admin Acetaminophen (Tylenol) 650 mg Q6H PRN ORAL Mild Pain/Temp > 100.5 07/17/17 18:15 08/13/17 18:14 Cinacalcet (Sensipar) 30 mg WED-WED-WED ORAL 07/19/17 21:00 08/11/17 20:59 07/19/17 20:42 Diphenhydramine HCl (Benadryl) 25 mg Q6H PRN ORAL Itching 07/17/17 18:15 08/13/17 18:14 07/19/17 00:25 Heparin Sodium (Porcine) (Heparin 5000 units/ml) 5,000 units EVERY 12 HOURS SUBQ 07/17/17 21:00 08/11/17 08:59 Loperamide HCl (Imodium) 2 mg Q4H PRN ORAL Diarrhea 07/17/17 18:00 08/16/17 17:59 Midodrine (Pro-Amatine) 10 mg THREE TIMES A DAY ORAL 07/18/17 09:00 08/17/17 08:59 07/19/17 17:15 Pantoprazole (Protonix) 40 mg DAILY ORAL 07/18/17 09:00 08/11/17 08:59 07/19/17 10:22 Sevelamer Carbonate (Renvela) 1,600 mg THREE TIMES A DAY ORAL 07/18/17 09:00 08/17/17 08:59 07/19/17 20:42 Vitamin B Complex/ Vit C/Folic Acid (Nephrovite) 1 tab DAILY ORAL 07/18/17 09:00 08/11/17 08:59 07/19/17 10:22 Cuate cShmidt MD Jul 19, 2017 22:44
[2017-07-20] VITALS: BP 80/47
[2017-07-20 04:00] VITALS: BP 80/43
[2017-07-20 07:16] LABS: ANION GAP 10 mmol/L (5-15); BLOOD UREA NITROGEN 37 mg/dL (7-18); CALCIUM 8.6 MG/DL (8.5-10.1); CARBON DIOXIDE 31 MMOL/L (21-32); CHLORIDE 99 MMOL/L (98-107); POTASSIUM 4.2 MMOL/L (3.5-5.1); SODIUM 140 MMOL/L (136-145)
[2017-07-20 07:37] LABS: BASOPHILS % (AUTO) 1.1 % (0.0-2.0); HEMATOCRIT 32.8 % (37.0-47.0); HEMOGLOBIN 11.1 G/DL (12.0-16.0); LYMPHOCYTES % (AUTO) 29.9 % (20.0-45.0); MEAN CORPUSCULAR VOLUME 95 FL (80-99); MONOCYTES % (AUTO) 5.9 % (1.0-10.0); NEUTROPHILS % (AUTO) 54.1 % (45.0-75.0); PLATELET COUNT 101 K/UL (150-450); RED BLOOD COUNT 3.47 M/UL (4.20-5.40); RED CELL DISTRIBUTION WIDTH 15.2 % (11.6-14.8); WHITE BLOOD COUNT 4.3 K/UL (4.8-10.8)
[2017-07-20 08:00] VITALS: BP 84/41
[2017-07-20] MEDS: Nephrovite tab (Rena-Vite) ORAL SCH (08:33)
[2017-07-20] MEDS: Midodrine 10mg tab ORAL SCH ×3 (08:34→17:59)
[2017-07-20] MEDS: Heparin 5000 units/ml inj SUBQ SCH (08:48)
[2017-07-20 11:46] VITALS: BP 89/49
--- NOTE | 2017-07-20 15:02 | Nephrology Progress Note ---
Assessment/Plan Problem List: (1) Hypoparathyroidism (2) ESRD (end stage renal disease) on dialysis (3) Hypotension Assessment ESRD Dyspnea / hypoxia Hypotension s/p Parathyroid surgery Plan \Plan: Dialysis next 07/20 Per consultants Midodrine for low BP per orders ??DC ??? Subjective ROS Limited/Unobtainable: No Objective Objective Last 24 Hour Vital Signs Date Time Temp Pulse Resp B/P (MAP) Pulse Ox O2 Delivery O2 Flow Rate FiO2 07/20/17 11:47 Room Air 07/20/17 11:46 97.3 63 20 89/49 91 97.3 07/20/17 08:00 97.5 71 18 84/41 92 Room Air 97.5 07/20/17 05:42 98.1 07/20/17 04:43 98.1 07/20/17 04:00 98.5 67 20 80/43 91 98.5 07/20/17 00:00 98.1 71 19 80/47 90 98.1 07/19/17 20:17 Room Air 07/19/17 20:00 98.0 74 19 86/47 90 98.0 07/19/17 16:30 Room Air 4.0 07/19/17 16:00 97.0 79 18 91/53 94 97.0 Intake and Output 07/19/17 07/20/17 19:00 07:00 Intake Total 1600 ml Output Total 3200 ml Balance 1600 ml -3200 ml Intake Oral 1600 ml Hemodialysis UF 3200 ml # Voids 2 1 Laboratory Tests 07/20/17 06:05: White Blood Count 4.3L, Red Blood Count 3.47L, Hemoglobin 11.1L, Hematocrit 32.8L, Mean Corpuscular Volume 95, Mean Corpuscular Hemoglobin 32.0H, Mean Corpuscular Hemoglobin Concent 33.9, Red Cell Distribution Width 15.2H, Platelet Count 101L, Mean Platelet Volume 8.9, Neutrophils (%) (Auto) 54.1, Lymphocytes (%) (Auto) 29.9, Monocytes (%) (Auto) 5.9, Eosinophils (%) (Auto) 9.0H, Basophils (%) (Auto) 1.1, Sodium Level 140, Potassium Level 4.2, Chloride Level 99, Carbon Dioxide Level 31, Anion Gap 10, Blood Urea Nitrogen 37H, Creatinine 10.0H, Estimat Glomerular Filtration Rate 5.0, Glucose Level 86, Calcium Level 8.6 Height (Feet): 5 Height (Inches): 6.00 Weight (Pounds): 198 General Appearance: no apparent distress Objective no change EDUARDO ROSE Jul 20, 2017 15:02
[2017-07-20 15:20] VITALS: BP 77/45
--- NOTE | 2017-07-20 16:39 | Pulmonology Progress Note ---
Assessment/Plan Problems: (1) CHF (congestive heart failure) (2) HTN (hypertension) (3) Dyspnea (4) Anemia (5) ESRD (end stage renal disease) on dialysis Assessment/Plan less short of breath improving HD in am check electrolytes h/h stable symptomatic treatment. dc home today Subjective ROS Limited/Unobtainable: No Interval Events: no new complains Allergies: Coded Allergies: CEFAZOLIN (Verified Allergy, Unknown, 10/02/10) CIPROFLOXACIN (Verified Allergy, Unknown, 10/02/10) GENTAMICIN (Verified Allergy, Unknown, 10/02/10) LEVOFLOXACIN (Verified Allergy, Unknown, 10/02/10) PENICILLINS (Verified Allergy, Unknown, ITCH, 10/02/10) Uncoded Allergies: CONTRAST MEDIA (Adverse Reaction, Mild, MILD ITCHING AFTER CONTRAST MEDIA, 04/30/17) Objective Last 24 Hour Vital Signs Date Time Temp Pulse Resp B/P (MAP) Pulse Ox O2 Delivery O2 Flow Rate FiO2 07/20/17 15:20 97.7 72 18 77/45 85 Room Air 97.7 07/20/17 11:47 Room Air 07/20/17 11:46 97.3 63 20 89/49 91 97.3 07/20/17 08:00 97.5 71 18 84/41 92 Room Air 97.5 07/20/17 05:42 98.1 07/20/17 04:43 98.1 07/20/17 04:00 98.5 67 20 80/43 91 98.5 07/20/17 00:00 98.1 71 19 80/47 90 98.1 07/19/17 20:17 Room Air 07/19/17 20:00 98.0 74 19 86/47 90 98.0 Intake and Output 07/19/17 07/20/17 19:00 07:00 Intake Total 1600 ml Output Total 3200 ml Balance 1600 ml -3200 ml Intake Oral 1600 ml Hemodialysis UF 3200 ml # Voids 2 1 Objective General Appearance: WD/WN HEENT: normocephalic, atraumatic Respiratory/Chest: chest wall non-tender, lungs clear Cardiovascular: normal peripheral pulses, normal rate Abdomen: normal bowel sounds, soft, non tender Genitourinary: normal external genitalia Extremities: no cyanosis Lymphatic: no neck adenopathy Microbiology Date/Time Source Procedure Growth Status 07/18/17 21:00 Stool Worksheet Laboratory Tests 07/20/17 06:05: White Blood Count 4.3L, Red Blood Count 3.47L, Hemoglobin 11.1L, Hematocrit 32.8L, Mean Corpuscular Volume 95, Mean Corpuscular Hemoglobin 32.0H, Mean Corpuscular Hemoglobin Concent 33.9, Red Cell Distribution Width 15.2H, Platelet Count 101L, Mean Platelet Volume 8.9, Neutrophils (%) (Auto) 54.1, Lymphocytes (%) (Auto) 29.9, Monocytes (%) (Auto) 5.9, Eosinophils (%) (Auto) 9.0H, Basophils (%) (Auto) 1.1, Sodium Level 140, Potassium Level 4.2, Chloride Level 99, Carbon Dioxide Level 31, Anion Gap 10, Blood Urea Nitrogen 37H, Creatinine 10.0H, Estimat Glomerular Filtration Rate 5.0, Glucose Level 86, Calcium Level 8.6 Current Medications Medications (Trade) Dose Ordered Sig/Marcos Route PRN Reason Start Time Stop Time Status Last Admin Dose Admin Acetaminophen (Tylenol) 650 mg Q6H PRN ORAL Mild Pain/Temp > 100.5 07/17/17 18:15 08/13/17 18:14 07/20/17 04:43 Cinacalcet (Sensipar) 30 mg WED-WED-WED ORAL 07/19/17 21:00 08/11/17 20:59 07/19/17 20:42 Diphenhydramine HCl (Benadryl) 25 mg Q6H PRN ORAL Itching 07/17/17 18:15 08/13/17 18:14 07/19/17 00:25 Heparin Sodium (Porcine) (Heparin 5000 units/ml) 5,000 units EVERY 12 HOURS SUBQ 07/17/17 21:00 08/11/17 08:59 Loperamide HCl (Imodium) 2 mg Q4H PRN ORAL Diarrhea 07/17/17 18:00 08/16/17 17:59 Midodrine (Pro-Amatine) 10 mg THREE TIMES A DAY ORAL 07/18/17 09:00 08/17/17 08:59 07/20/17 12:31 Pantoprazole (Protonix) 40 mg DAILY ORAL 07/18/17 09:00 08/11/17 08:59 07/20/17 08:33 Sevelamer Carbonate (Renvela) 1,600 mg THREE TIMES A DAY ORAL 07/18/17 09:00 08/17/17 08:59 07/20/17 12:31 Vitamin B Complex/ Vit C/Folic Acid (Nephrovite) 1 tab DAILY ORAL 07/18/17 09:00 08/11/17 08:59 07/20/17 08:33 Cuate Schmidt MD Jul 20, 2017 16:39
--- NOTE | 2017-07-20 16:59 | Internal Med Progress Note ---
Subjective Date of Service: Jul 20, 2017 Physician Name Shavonne Ugalde Attending Physician Ash Henley MD Current Medications Medications (Trade) Dose Ordered Sig/Marcos Route PRN Reason Start Time Stop Time Status Last Admin Dose Admin Acetaminophen (Tylenol) 650 mg Q6H PRN ORAL Mild Pain/Temp > 100.5 07/17/17 18:15 08/13/17 18:14 07/20/17 04:43 Cinacalcet (Sensipar) 30 mg WED-WED-WED ORAL 07/19/17 21:00 08/11/17 20:59 07/19/17 20:42 Diphenhydramine HCl (Benadryl) 25 mg Q6H PRN ORAL Itching 07/17/17 18:15 08/13/17 18:14 07/19/17 00:25 Heparin Sodium (Porcine) (Heparin 5000 units/ml) 5,000 units EVERY 12 HOURS SUBQ 07/17/17 21:00 08/11/17 08:59 Loperamide HCl (Imodium) 2 mg Q4H PRN ORAL Diarrhea 07/17/17 18:00 08/16/17 17:59 Midodrine (Pro-Amatine) 10 mg THREE TIMES A DAY ORAL 07/18/17 09:00 08/17/17 08:59 07/20/17 12:31 Pantoprazole (Protonix) 40 mg DAILY ORAL 07/18/17 09:00 08/11/17 08:59 07/20/17 08:33 Sevelamer Carbonate (Renvela) 1,600 mg THREE TIMES A DAY ORAL 07/18/17 09:00 08/17/17 08:59 07/20/17 12:31 Vitamin B Complex/ Vit C/Folic Acid (Nephrovite) 1 tab DAILY ORAL 07/18/17 09:00 08/11/17 08:59 07/20/17 08:33 Allergies: Coded Allergies: CEFAZOLIN (Verified Allergy, Unknown, 10/02/10) CIPROFLOXACIN (Verified Allergy, Unknown, 10/02/10) GENTAMICIN (Verified Allergy, Unknown, 10/02/10) LEVOFLOXACIN (Verified Allergy, Unknown, 10/02/10) PENICILLINS (Verified Allergy, Unknown, ITCH, 10/02/10) Uncoded Allergies: CONTRAST MEDIA (Adverse Reaction, Mild, MILD ITCHING AFTER CONTRAST MEDIA, 04/30/17) ROS Limited/Unobtainable: No Constitutional: Reports: no symptoms HEENT: Reports: no symptoms Cardiovascular: Reports: no symptoms Respiratory: Reports: no symptoms Gastrointestinal/Abdominal: Reports: no symptoms Genitourinary: Reports: no symptoms Neurologic/Psychiatric: Reports: no symptoms Subjective 52 YO F admitted with shortness of breath. Now CHF and volume overload. Cover for Int John-Dr Henley. Await discharge Objective Last Vital Signs Date Time Temp Pulse Resp B/P (MAP) Pulse Ox O2 Delivery O2 Flow Rate FiO2 07/20/17 15:20 97.7 72 18 77/45 85 Room Air 97.7 07/19/17 16:30 4.0 Laboratory Tests Test 07/20/17 06:05 White Blood Count 4.3 K/UL (4.8-10.8) L Red Blood Count 3.47 M/UL (4.20-5.40) L Hemoglobin 11.1 G/DL (12.0-16.0) L Hematocrit 32.8 % (37.0-47.0) L Mean Corpuscular Volume 95 FL (80-99) Mean Corpuscular Hemoglobin 32.0 PG (27.0-31.0) H Mean Corpuscular Hemoglobin Concent 33.9 G/DL (32.0-36.0) Red Cell Distribution Width 15.2 % (11.6-14.8) H Platelet Count 101 K/UL (150-450) L Mean Platelet Volume 8.9 FL (6.5-10.1) Neutrophils (%) (Auto) 54.1 % (45.0-75.0) Lymphocytes (%) (Auto) 29.9 % (20.0-45.0) Monocytes (%) (Auto) 5.9 % (1.0-10.0) Eosinophils (%) (Auto) 9.0 % (0.0-3.0) H Basophils (%) (Auto) 1.1 % (0.0-2.0) Sodium Level 140 MMOL/L (136-145) Potassium Level 4.2 MMOL/L (3.5-5.1) Chloride Level 99 MMOL/L (98-107) Carbon Dioxide Level 31 MMOL/L (21-32) Anion Gap 10 mmol/L (5-15) Blood Urea Nitrogen 37 mg/dL (7-18) H Creatinine 10.0 MG/DL (0.55-1.30) H Estimat Glomerular Filtration Rate 5.0 mL/min (>60) Glucose Level 86 MG/DL (74-106) Calcium Level 8.6 MG/DL (8.5-10.1) Microbiology Date/Time Source Procedure Growth Status 07/18/17 21:00 Stool Worksheet Intake and Output 07/19/17 07/20/17 19:00 07:00 Intake Total 1600 ml Output Total 3200 ml Balance 1600 ml -3200 ml Intake Oral 1600 ml Hemodialysis UF 3200 ml # Voids 2 1 Objective General Appearance: WD/WN, no apparent distress, alert EENT: PERRL/EOMI, normal ENT inspection, pharynx normal Neck: non-tender, normal alignment, supple, normal inspection Cardiovascular: normal peripheral pulses, normal rate, regular rhythm, no gallop/murmur, no JVD Respiratory/Chest: chest wall non-tender, respiratory distress, crackles/rales , rhonchi - bilaterally, expiratory wheezing Abdomen: normal bowel sounds, non tender, soft, no organomegaly, no mass Extremities: normal range of motion, non-tender Neurologic: bull riveter II-XII grossly normal, no motor/sensory deficits Skin: normal pigmentation, warm/dry Assessment/Plan Problem List: (1) Anemia (2) Dyspnea (3) ESRD (end stage renal disease) on dialysis Assessment & Plan: S/P hemodialysis 07/16; next hemodialysis 07/19/17. See nephrology note. (4) HTN (hypertension) (5) CHF (congestive heart failure) Assessment & Plan: See cardiology note. (6) Pulmonary embolism Assessment & Plan: Low probability-see pulmonary consult note. Await hematology consult. ?need for anticoagulation?-see cardiology note 07/13 (7) Respiratory failure Assessment & Plan: ?volume ovrload?See pulmonary note. (8) Hypoparathyroidism (9) Diarrhea Assessment & Plan: Stool culture and C.Diff pending. Imodium prn Status: stable Assessment/Plan Discharge home today SHAVONNE UGALDE Jul 20, 2017 16:59
[2017-07-20 19:14] VITALS: BP 89/46
--- NOTE | 2017-07-20 20:06 | General Progress Note ---
Assessment/Plan Assessment/Plan #. Anemia due to underlying end-stage renal disease, on Epogen as needed. --> Thus far, chemistry has been reviewed. --> Lifelong chemistry has been reviewed as well. Ferritin normal does not require any iron. --> Hemoglobin levels have been stable. --> On hemodialysis as needed. --> Blood transfusion not required at this time. Anemia mild. #. Thrombocytopenia. --> We will send out for hepatitis and human immunodeficiency virus panel at this time. --> Imaging of the abdomen has been reviewed. --> Transfuse if hgb <20k --> Closely monitor and trend. #. Extensive venous occlusive disease noted. --> Troponin negative. EKG negative. Peripheral emboli cannot be excluded. --> At this time, given thrombocytopenia, I do not recommend the use of anticoagulation and closely monitor for underlying causes. #. Shortness of breath, likely secondary to venous occlusive disease, which is chronic in nature. --> No large clot noted, therefore, unknown this would benefit from anticoagulation. #. Acute respiratory failure and hypoxemia. #. End-stage renal disease, on hemodialysis. #. Hypotension. #. Hiatal hernia. #. Bronchitis. Closely monitor. Subjective Date patient seen: Jul 19, 2017 Constitutional: Denies: no symptoms, chills, diaphoresis, fever, malaise, weakness, other HEENT: Denies: no symptoms, eye pain, blurred vision, tearing, double vision, ear pain, ear discharge, nose pain, nose congestion, throat pain, throat swelling, mouth pain, mouth swelling, other Cardiovascular: Denies: no symptoms, chest pain, edema, irregular heart rate, lightheadedness, palpitations, syncope, other Respiratory: Denies: no symptoms, cough, orthopnea, shortness of breath, SOB with excertion, SOB at rest, sputum, stridor, wheezing, other Gastrointestinal/Abdominal: Denies: no symptoms, abdomen distended, abdominal pain, black stools, tarry stools, blood in stool, constipated, diarrhea, difficulty swallowing, nausea, poor appetite, poor fluid intake, rectal bleeding , vomiting, other Genitourinary: Denies: no symptoms, burning, discharge, frequency, flank pain, hematuria, incontinence, pain, urgency, other Neurologic/Psychiatric: Denies: no symptoms, anxiety, depressed, emotional problems, headache, numbness, paresthesia, pre-existing deficit, seizure, tingling, tremors, weakness, other Hematologic/Lymphatic: Reports: anemia Allergies: Coded Allergies: CEFAZOLIN (Verified Allergy, Unknown, 10/02/10) CIPROFLOXACIN (Verified Allergy, Unknown, 10/02/10) GENTAMICIN (Verified Allergy, Unknown, 10/02/10) LEVOFLOXACIN (Verified Allergy, Unknown, 10/02/10) PENICILLINS (Verified Allergy, Unknown, ITCH, 10/02/10) Uncoded Allergies: CONTRAST MEDIA (Adverse Reaction, Mild, MILD ITCHING AFTER CONTRAST MEDIA, 04/30/17) Subjective On pain control. Remains hypotensive. Wbc and platelets low. Objective Last 24 Hour Vital Signs Date Time Temp Pulse Resp B/P (MAP) Pulse Ox O2 Delivery O2 Flow Rate FiO2 07/20/17 19:14 96.6 67 20 89/46 92 Room Air 96.6 07/20/17 15:20 97.7 72 18 77/45 85 Room Air 97.7 07/20/17 11:47 Room Air 07/20/17 11:46 97.3 63 20 89/49 91 97.3 07/20/17 08:00 97.5 71 18 84/41 92 Room Air 97.5 07/20/17 05:42 98.1 07/20/17 04:43 98.1 07/20/17 04:00 98.5 67 20 80/43 91 98.5 07/20/17 00:00 98.1 71 19 80/47 90 98.1 07/19/17 20:17 Room Air Intake and Output 07/19/17 07/20/17 19:00 07:00 Intake Total 1600 ml Output Total 3200 ml Balance 1600 ml -3200 ml Intake Oral 1600 ml Hemodialysis UF 3200 ml # Voids 2 1 Laboratory Tests 07/20/17 06:05: White Blood Count 4.3L, Red Blood Count 3.47L, Hemoglobin 11.1L, Hematocrit 32.8L, Mean Corpuscular Volume 95, Mean Corpuscular Hemoglobin 32.0H, Mean Corpuscular Hemoglobin Concent 33.9, Red Cell Distribution Width 15.2H, Platelet Count 101L, Mean Platelet Volume 8.9, Neutrophils (%) (Auto) 54.1, Lymphocytes (%) (Auto) 29.9, Monocytes (%) (Auto) 5.9, Eosinophils (%) (Auto) 9.0H, Basophils (%) (Auto) 1.1, Sodium Level 140, Potassium Level 4.2, Chloride Level 99, Carbon Dioxide Level 31, Anion Gap 10, Blood Urea Nitrogen 37H, Creatinine 10.0H, Estimat Glomerular Filtration Rate 5.0, Glucose Level 86, Calcium Level 8.6 Height (Feet): 5 Height (Inches): 6.00 Weight (Pounds): 198 General Appearance: lethargic Respiratory/Chest: decreased breath sounds Byron Wade MD Jul 20, 2017 20:06
--- NOTE | 2017-07-21 23:16 | General Progress Note ---
Assessment/Plan Assessment/Plan #. Anemia due to underlying end-stage renal disease, on Epogen as needed. --> Thus far, chemistry has been reviewed. --> Lifelong chemistry has been reviewed as well. Ferritin normal does not require any iron. --> Hemoglobin levels have been stable. --> On hemodialysis as needed. --> Blood transfusion not required at this time. Anemia mild. #. Thrombocytopenia. --> We will send out for hepatitis and human immunodeficiency virus panel at this time. --> Imaging of the abdomen has been reviewed. --> Transfuse if hgb <20k --> Closely monitor and trend. #. Extensive venous occlusive disease noted. --> Troponin negative. EKG negative. Peripheral emboli cannot be excluded. --> At this time, given thrombocytopenia, I do not recommend the use of anticoagulation and closely monitor for underlying causes. #. Shortness of breath, likely secondary to venous occlusive disease, which is chronic in nature. --> No large clot noted, therefore, unknown this would benefit from anticoagulation. #. Acute respiratory failure and hypoxemia. #. End-stage renal disease, on hemodialysis. #. Hypotension. #. Hiatal hernia. #. Bronchitis. Closely monitor. Subjective Date patient seen: Jul 20, 2017 Constitutional: Denies: no symptoms, chills, diaphoresis, fever, malaise, weakness, other HEENT: Denies: no symptoms, eye pain, blurred vision, tearing, double vision, ear pain, ear discharge, nose pain, nose congestion, throat pain, throat swelling, mouth pain, mouth swelling, other Cardiovascular: Denies: no symptoms, chest pain, edema, irregular heart rate, lightheadedness, palpitations, syncope, other Respiratory: Denies: no symptoms, cough, orthopnea, shortness of breath, SOB with excertion, SOB at rest, sputum, stridor, wheezing, other Gastrointestinal/Abdominal: Denies: no symptoms, abdomen distended, abdominal pain, black stools, tarry stools, blood in stool, constipated, diarrhea, difficulty swallowing, nausea, poor appetite, poor fluid intake, rectal bleeding , vomiting, other Genitourinary: Denies: no symptoms, burning, discharge, frequency, flank pain, hematuria, incontinence, pain, urgency, other Neurologic/Psychiatric: Denies: no symptoms, anxiety, depressed, emotional problems, headache, numbness, paresthesia, pre-existing deficit, seizure, tingling, tremors, weakness, other Hematologic/Lymphatic: Reports: anemia Allergies: Coded Allergies: CEFAZOLIN (Verified Allergy, Unknown, 10/02/10) CIPROFLOXACIN (Verified Allergy, Unknown, 10/02/10) GENTAMICIN (Verified Allergy, Unknown, 10/02/10) LEVOFLOXACIN (Verified Allergy, Unknown, 10/02/10) PENICILLINS (Verified Allergy, Unknown, ITCH, 10/02/10) Uncoded Allergies: CONTRAST MEDIA (Adverse Reaction, Mild, MILD ITCHING AFTER CONTRAST MEDIA, 04/30/17) Subjective On pain control. NAD. Pending discharge. Objective Height (Feet): 5 Height (Inches): 6.00 Weight (Pounds): 198 General Appearance: no apparent distress Cardiovascular: normal rate Respiratory/Chest: lungs clear, normal breath sounds Abdomen: soft Byron Wade MD Jul 21, 2017 23:16
--- NOTE | 2017-07-22 13:26 | Discharge Summary ---
Discharge Summary Discharge Summary Discharge Summary DATE OF ADMISSION: 07/11/2017 DATE OF DISCHARGE: 07/20/2017 CONSULTANTS: Dr. Clint Matias BRIEF HOSPITAL COURSE: Patient is a 52-year-old -[place] female, who presented with chief complaint of shortness of breath. Symptoms started 3 days prior to admission, patient experienced shortness of breath. Patient denied fever or chills. Patient has nonproductive cough. He was admitted before for similar symptoms. She has medical history significant for end-stage renal disease on hemodialysis , hiatal hernia, hypotension, hypoparathyroidism, anxiety disorder, and depression. On evaluation at ED, blood pressure was low. She has a difficult IV access. EKG showed right axis with decreased voltage, could be consistent with pericardial effusion. Chest x-ray showed no infiltrates, heart size normal. She has stents in the arteries in the arm and surgical clips. Blood work did not show any leukocytosis, BNP was slightly elevated 1621, troponin was negative. She had evidence of end-stage renal disease, lactic acid was elevated to 3. She continued to have drops in oxygen saturation, clinical suspicion for PE is not insignificant. She was then admitted to telemetry and underwent cardiac evaluation. She was given inpatient hemodialysis. Chest CT showed no evidence of acute pulmonary embolus. There is extensive central venoocclusive disease with extensive mediastinal and chest wall collaterals. Telemetry data showed sinus rhythm, sinus tachycardia, and sinus bradycardia, no significant ST to T wave abnormalities. Echocardiogram done showed preserved ejection fraction with mild diastolic relaxation abnormalities. Troponin was negative, TSH was normal. She was given midodrine for low BP. Patient has anemia secondary to underlying end-stage renal disease and was given Neupogen. He had normal ferritin and does not require any iron supplements. He also have thrombocytopenia. Patient has extensive venous occlusive disease, however given thrombocytopenia, no anticoagulation was started. There was no large clot noted, therefore, unknown this would benefit from anticoagulation. Patient was eventually discharged home FINAL DIAGNOSES: Acute respiratory failure End-stage renal disease on hemodialysis Low probability pulmonary embolism Hypoparathyroidism Anemia of kidney disease Dyspnea Extensive central pulmonary venous occlusive disease Hypotension, asymptomatic and chronic Sinus bradycardia Large hiatal hernia DISPOSITION: Patient was discharged home. DISCHARGE MEDICATIONS: Refer to Discharge Medication List. I have been assigned to dictate discharge summary on this account, and I was not involved in the patient's management. Hue Sotelo NP Jul 22, 2017 13:26
== END 2017-07-20 20:00 | disposition home or self-care (01) | DRG 189 ==
LOC: EDBEDREQ 15:53 → EMR 15:56 → EDBEDREQ 16:53 → 2E 18:23 → 4W 07-17 17:25
PROC: 5A1D70Z Performance of Urinary Filtration, Intermittent, Less than 6 Hours Per Day (ICD-10-PCS; principal; 2017-07-12)
PROC: 5A1D70Z Performance of Urinary Filtration, Intermittent, Less than 6 Hours Per Day (ICD-10-PCS; 2017-07-14)
PROC: 5A1D70Z Performance of Urinary Filtration, Intermittent, Less than 6 Hours Per Day (ICD-10-PCS; 2017-07-16)
PROC: 5A1D70Z Performance of Urinary Filtration, Intermittent, Less than 6 Hours Per Day (ICD-10-PCS; 2017-07-19)
DX: J96.01 Acute respiratory failure with hypoxia (principal); N18.6 End stage renal disease; I26.99 Other pulmonary embolism without acute cor pulmonale; I13.2 Hypertensive heart and chronic kidney disease with heart failure and with stage 5 chronic kidney disease, or end stage renal disease; I27.82 Chronic pulmonary embolism; I95.9 Hypotension, unspecified; I50.9 Heart failure, unspecified; Z99.2 Dependence on renal dialysis; R00.1 Bradycardia, unspecified; D63.1 Anemia in chronic kidney disease; E20.9 Hypoparathyroidism, unspecified; D69.6 Thrombocytopenia, unspecified; Z88.1 Allergy status to other antibiotic agents; Z88.0 Allergy status to penicillin; Z88.8 Allergy status to other drugs, medicaments and biological substances; E66.9 Obesity, unspecified; K44.9 Diaphragmatic hernia without obstruction or gangrene; F41.9 Anxiety disorder, unspecified; Z91.041 Radiographic dye allergy status; J40 Bronchitis, not specified as acute or chronic
CPT/HCPCS: 36415; 71045; 71275; 80048; 80053; 80061; 82248; 82550; 82977; 83605; 83735; 83880; 84100; 84443; 84484; 84550; 85007; 85025; 85610; 85730; 86140; 87045; 87081; 87324; 93005; 93306; 99285

== ENCOUNTER 2018-03-29 13:17 | Inpatient (IN) | payer MEDICARE, OTHER ==
[~2018-03-29] VITALS: Ht 167.6 cm; Wt 91.6 kg
[2018-03-29 13:40] VITALS: BP 87/50
[2018-03-29] MEDS ORDERED: NS 250 ML IV ONE (13:50)
[2018-03-29] MEDS ORDERED: SYMBICORT 80-10.2 G1 IH (13:51)
[2018-03-29] MEDS ORDERED: ELIQUIS5 MG PO (13:51)
[2018-03-29] MEDS ORDERED: MIDODRINE HCL10 MG ORAL (13:52)
--- NOTE | 2018-03-29 14:26 | Emergency Room Report ---
History of Present Illness General Chief Complaint: Pain Source: Patient, Medical Record Present Illness HPI 53-year-old female presents ED for evaluation. Complaining of chest pain times one week. States it started on the left side of her chest and is now radiating across the chest. 7 out of 10, sharp. Denies shortness of breath. States it hurts with positional change. Denies cough. Denies fevers or chills. History of end-stage renal diseasegets dialysis Wednesday. He is compliant with her dialysis. Denies drug use. No other aggravating relieving factors. Denies any other associated symptoms Allergies: Coded Allergies: CEFAZOLIN (Verified Allergy, Unknown, 10/02/10) CIPROFLOXACIN (Verified Allergy, Unknown, 10/02/10) GENTAMICIN (Verified Allergy, Unknown, 10/02/10) KETAMINE (Verified Allergy, Unknown, 03/29/18) LEVOFLOXACIN (Verified Allergy, Unknown, 10/02/10) PENICILLINS (Verified Allergy, Unknown, ITCH, 10/02/10) Uncoded Allergies: CONTRAST MEDIA (Adverse Reaction, Mild, MILD ITCHING AFTER CONTRAST MEDIA, 04/30/17) Patient History Past Medical History: GERD, renal disease, dialysis Past Surgical History: none Pertinent Family History: none Social History: Denies: smoking, alcohol use, drug use Now: No Immunizations: UTD Reviewed Nursing Documentation: PMH: Agreed; PSxH: Agreed Nursing Documentation-PMH Past Medical History: No History, Except For Hx Cardiac Problems: Yes Hx Pacemaker: No Hx Asthma: No Hx COPD: No Hx Diabetes: No Hx Cancer: No Hx Gastrointestinal Problems: Yes - GERN Hx Dialysis: Yes - M,W,F last dialysis 03/28/2018 History Of Psychiatric Problem: No Hx Neurological Problems: No Hx Cerebrovascular Accident: No Hx Seizures: No Review of Systems All Other Systems: negative except mentioned in HPI Physical Exam Vital Signs Date Time Temp Pulse Resp B/P (MAP) Pulse Ox O2 Delivery O2 Flow Rate FiO2 03/29/18 13:30 97.3 80 16 86/49 87 Room Air Sp02 EP Interpretation: reviewed, normal General Appearance: no apparent distress, alert, GCS 15, non-toxic Head: normocephalic, atraumatic Eyes: bilateral eye normal inspection, bilateral eye PERRL ENT: hearing grossly normal, normal pharynx, no angioedema, normal voice Neck: full range of motion, supple/symm/no masses Respiratory: chest non-tender, lungs clear, normal breath sounds, speaking full sentences Cardiovascular #1: regular rate, rhythm, no edema Cardiovascular #2: 2+ carotid (R), 2+ carotid (L), 2+ radial (R), 2+ radial (L) , 2+ dorsalis pedis (R), 2+ dorsalis pedis (L) Gastrointestinal: normal bowel sounds, non tender, soft, non-distended, no guarding, no rebound Rectal: deferred Genitourinary: normal inspection, no CVA tenderness Musculoskeletal: back normal, gait/station normal, normal range of motion, non- tender Neurologic: alert, oriented x3, responsive, motor strength/tone normal, sensory intact, speech normal Psychiatric: judgement/insight normal, memory normal, mood/affect normal, no suicidal/homicidal ideation Reflexes: 3+ bicep (R), 3+ bicep (L), 3+ tricep (R), 3+ tricep (L), 3+ knee (R) , 3+ knee (L) Skin: normal color, no rash, warm/dry, well hydrated Lymphatic: no adenopathy Medical Decision Making Diagnostic Impression: Primary Impression: ESRD (end stage renal disease) on dialysis Additional Impression: ACS (acute coronary syndrome) ER Course Hospital Course 53-year-old female presents ED complaining of chest pain. h/o ESRD Differential diagnoses include: NE/unstable angina, contusion, muscle strain, PTX, rib fracture Clinical course Patient placed on stretcher. on bus monitor. After initial history and physical I ordered labs, EKG, chest x-ray, pain meds labs reviewed- no leukocytosis, hb/hct stable, BUN/Cr elevated, trop x 1 negative EKG- NSR, no acute ischemic changes interpreted by me Chest x-ray- no acute process pain appears muscular, positional. however patient has signficant cardiac risk factors. patient would benefit from inpatient admission Case discussed with Dr. Henley and he agreed to accept the patient to his service for further care and support I. I feel this is a highly complex case requiring extensive working including EKG/Rhythm strip, Xray/CT/US, Blood/urine lab work, repeat exams while in ED, and administration of strong opiates/narcotics for pain control, admission to hospital or close patient follow up. Diagnosis - ACS, ESRD on dialysis admitted to telemetry in serious condition Labs Test 03/29/18 14:00 03/29/18 21:25 03/30/18 07:25 03/30/18 07:55 White Blood Count 5.2 K/UL (4.8-10.8) 4.7 K/UL (4.8-10.8) Red Blood Count 4.05 M/UL (4.20-5.40) 3.86 M/UL (4.20-5.40) Hemoglobin 12.0 G/DL (12.0-16.0) 11.6 G/DL (12.0-16.0) Hematocrit 37.9 % (37.0-47.0) 36.3 % (37.0-47.0) Mean Corpuscular Volume 94 FL (80-99) 94 FL (80-99) Mean Corpuscular Hemoglobin 29.6 PG (27.0-31.0) 30.0 PG (27.0-31.0) Mean Corpuscular Hemoglobin Concent 31.6 G/DL (32.0-36.0) 31.9 G/DL (32.0-36.0) Red Cell Distribution Width 14.3 % (11.6-14.8) 14.5 % (11.6-14.8) Platelet Count 140 K/UL (150-450) 133 K/UL (150-450) Mean Platelet Volume 8.6 FL (6.5-10.1) 9.9 FL (6.5-10.1) Neutrophils (%) (Auto) 50.4 % (45.0-75.0) 53.4 % (45.0-75.0) Lymphocytes (%) (Auto) 33.1 % (20.0-45.0) 25.8 % (20.0-45.0) Monocytes (%) (Auto) 8.6 % (1.0-10.0) 9.6 % (1.0-10.0) Eosinophils (%) (Auto) 7.2 % (0.0-3.0) 10.3 % (0.0-3.0) Basophils (%) (Auto) 0.7 % (0.0-2.0) 0.9 % (0.0-2.0) Sodium Level 142 MMOL/L (136-145) 142 MMOL/L (136-145) Potassium Level 3.7 MMOL/L (3.5-5.1) 4.6 MMOL/L (3.5-5.1) Chloride Level 99 MMOL/L (98-107) 99 MMOL/L (98-107) Carbon Dioxide Level 30 MMOL/L (21-32) 30 MMOL/L (21-32) Anion Gap 13 mmol/L (5-15) 13 mmol/L (5-15) Blood Urea Nitrogen 28 mg/dL (7-18) 38 mg/dL (7-18) Creatinine 8.6 MG/DL (0.55-1.30) 10.2 MG/DL (0.55-1.30) Estimat Glomerular Filtration Rate 5.8 mL/min (>60) 4.7 mL/min (>60) Glucose Level 103 MG/DL (74-106) 86 MG/DL (74-106) Calcium Level 8.6 MG/DL (8.5-10.1) 8.1 MG/DL (8.5-10.1) Total Bilirubin 0.5 MG/DL (0.2-1.0) Aspartate Amino Transf (AST/SGOT) 28 U/L (15-37) Alanine Aminotransferase (ALT/SGPT) 27 U/L (12-78) Alkaline Phosphatase 331 U/L (46-116) Total Creatine Kinase 48 U/L (26-308) Creatine Kinase MB < 0.5 NG/ML (0.0-3.6) Creatine Kinase MB Relative Index 1.0 Troponin I 0.000 ng/mL (0.000-0.056) 0.000 ng/mL (0.000-0.056) 0.017 ng/mL (0.000-0.056) Pro-B-Type Natriuretic Peptide 3248 pg/mL (0-125) Total Protein 8.8 G/DL (6.4-8.2) Albumin 3.5 G/DL (3.4-5.0) 3.5 G/DL (3.4-5.0) Globulin 5.3 g/dL Albumin/Globulin Ratio 0.7 (1.0-2.7) Phosphorus Level 5.2 MG/DL (2.5-4.9) Thyroid Stimulating Hormone (TSH) 0.925 uiU/mL (0.358-3.740) EKG Diagnostic Results Rate: normal Rhythm: NSR ST Segments: no acute changes ASA given to the pt in ED: No Rhythm Strip Diag. Results EP Interpretation: yes Rhythm: NSR, no PVC's, no ectopy Chest X-Ray Diagnostic Results Chest X-Ray Diagnostic Results : Chest X-Ray Ordered: Yes # of Views/Limited/Complete: 1 View Indication: Chest Pain EP Interpretation: Yes Interpretation: no consolidation, no effusion, no pneumothorax, no acute cardiopulmonary disease Impression: No acute disease Electronically Signed by: Electronically signed by Gordo Oquendo MD Last Vital Signs Date Time Temp Pulse Resp B/P (MAP) Pulse Ox O2 Delivery O2 Flow Rate FiO2 03/29/18 13:40 97.3 84 17 87/50 100 Room Air Status: improved Disposition: ADMITTED INPATIENT Condition: Serious Gordo Oquendo MD Mar 29, 2018 14:26
[2018-03-29 14:29] LABS: ANION GAP 13 mmol/L (5-15); BLOOD UREA NITROGEN 28 mg/dL (7-18); CALCIUM 8.6 MG/DL (8.5-10.1); CARBON DIOXIDE 30 MMOL/L (21-32); CHLORIDE 99 MMOL/L (98-107); CREATININE 8.6 MG/DL (0.55-1.30); POTASSIUM 3.7 MMOL/L (3.5-5.1); SODIUM 142 MMOL/L (136-145)
[2018-03-29] MEDS: Norco 5mg/325mg tab ORAL ONE ×2 (14:32→14:41)
[2018-03-29 14:33] LABS: BASOPHILS % (AUTO) 0.7 % (0.0-2.0); EOSINOPHILS % (AUTO) 7.2 % (0.0-3.0); HEMATOCRIT 37.9 % (37.0-47.0); LYMPHOCYTES % (AUTO) 33.1 % (20.0-45.0); MEAN CORPUSCULAR VOLUME 94 FL (80-99); MONOCYTES % (AUTO) 8.6 % (1.0-10.0); NEUTROPHILS % (AUTO) 50.4 % (45.0-75.0); PLATELET COUNT 140 K/UL (150-450); RED BLOOD COUNT 4.05 M/UL (4.20-5.40); RED CELL DISTRIBUTION WIDTH 14.3 % (11.6-14.8); WHITE BLOOD COUNT 5.2 K/UL (4.8-10.8)
[2018-03-29 14:42] LABS: ALANINE AMINOTRANSFERASE 27 U/L (12-78); ALBUMIN 3.5 G/DL (3.4-5.0); ALBUMIN/GLOBULIN RATIO 0.7 (1.0-2.7); ALKALINE PHOSPHATASE 331 U/L (46-116); ASPARTATE AMINO TRANSFERASE 28 U/L (15-37); BILIRUBIN,TOTAL 0.5 MG/DL (0.2-1.0); CKMB < 0.5 NG/ML (0.0-3.6); CREATINE KINASE 48 U/L (26-308)
[2018-03-29] MEDS ORDERED: Morphine Sulfate 2mg/ml Inj IVP ONE (14:45)
[2018-03-29 15:13] VITALS: BP 83/47
--- NOTE | 2018-03-29 16:02 | Diagnostic Imaging Report ---
Indication: Dyspnea Comparison: 07/11/2017 A single view chest radiograph was obtained. Findings: There is no change. Surgical clips noted at the base of the neck. There is a substantial hiatal hernia. Cardiomegaly is present. Lungs are essentially clear. Extensive calcification noted in the right axillary region likely vascular in nature. Bilateral surgical clips are present within the upper arms and axilla. There is a stent within the right upper arm likely related to dialysis access. IMPRESSION: No acute cardiopulmonary disease. No significant change
[2018-03-29 17:10] VITALS: BP 87/42
[2018-03-29] MEDS ORDERED: ADVAIR HFA 115-12 GM INH (18:10)
[2018-03-29] MEDS ORDERED: PROMETHAZINE-C118 M1 ORAL (18:10)
[2018-03-29] MEDS ORDERED: TRAVATAN Z5 ML OP (18:10)
--- NOTE | 2018-03-29 19:44 | History & Physical ---
History and Physical History & Physicial Dictated for Int Med-Dr Moon. [id number]. Edward Harrell MD Mar 29, 2018 19:44
[2018-03-29 20:00] VITALS: BP 82/43
[2018-03-29] MEDS ORDERED: Albuterol/Ipratropium 3ml neb HHN PRN (21:00)
[2018-03-29] MEDS ORDERED: Miralax 17gm pkt ORAL PRN (21:00)
[2018-03-29] MEDS: Heparin 5000 units/ml inj SUBQ SCH (21:00)
[2018-03-29] MEDS: Midodrine 10mg tab ORAL SCH (21:04)
--- NOTE | 2018-03-29 22:45 | History and Physical Report ---
DATE OF ADMISSION: 03/29/2018 CHIEF COMPLAINT: The patient is a 53-year-old female, who presents with a chief complaint of chest pain. HISTORY OF PRESENT ILLNESS: The patient was last admitted to [facility] in June of 2017. Please see history and physical and discharge summary dictated at that time. History of present illness began on 03/23/2018. The patient began to experience left flank pain. The pain then moved to her chest. The patient states the pain is left-sided. The patient states the pain radiates to her back. The patient presented to [place] emergency room. The patient was admitted with chest pain to rule out acute coronary syndrome. REVIEW OF SYSTEMS: CONSTITUTIONAL: The patient denies weight loss or weight gain. The patient denies fevers or chills. HEENT: The patient denies ear or throat pain. The patient denies headache. CARDIOVASCULAR: The patient complains of chest pain as above. The patient denies palpitations. ABDOMEN: The patient denies nausea, vomiting, diarrhea, or constipation. GENITOURINARY: The patient denies dysuria or increased frequency of urination. NEUROMUSCULAR: The patient denies seizures or generalized weakness. PAST MEDICAL HISTORY: Significant for, 1. End-stage renal disease, on hemodialysis every Wednesday, Wednesday, and Wednesday. 2. Anemia of chronic renal disease. 3. Hypotension. 4. Obesity. PAST SURGICAL HISTORY: Significant for, 1. Arteriovenous graft placement x5. 2. Cholecystectomy. 3. Parathyroidectomy. 4. Carpal tunnel release. 5. Open reduction and internal fixation of left elbow fracture. 6. The patient currently has a right PermCath. 7. PermCath placement of the right upper thigh. CURRENT MEDICATIONS: 1. Apixaban 5 mg p.o. twice daily. 2. Sensipar 30 mg p.o. 3 times weekly. 3. Advair 115/21 two puffs p.o. twice daily. 4. Midodrine 20 mg p.o. twice daily. 5. Omeprazole 20 mg p.o. twice daily. 6. Renvela 1600 mg by p.o. 3 times daily. 7. Travatan 5 one drop both eyes twice daily. 8. Ambien 10 mg p.o. at bedtime. ALLERGIES: 1. Cefazolin. 2. Ciprofloxacin. 3. Gentamicin. 4. Levaquin. 5. Penicillin. 6. Ketamine. SOCIAL HISTORY: The patient is single and is disabled. The patient lives alone. The patient denies tobacco or alcohol use. PHYSICAL EXAMINATION: VITAL SIGNS: Temperature 97.3, respirations 16, pulse 80, and blood pressure 86/49. GENERAL: The patient is a well-developed and well-nourished slightly obese female, in no apparent distress. HEENT: Eyes, pupils equal and responsive to light and accommodation. Extraocular movements are intact. NECK: Supple without lymphadenopathy. CHEST: Lungs are clear to auscultation bilaterally without wheezes or rales. CARDIOVASCULAR: Regular rhythm and rate. S1 and S2 are normal without murmurs, rubs, or gallops. ABDOMEN: Soft, nontender, nondistended. Positive bowel sounds. No evidence of hepatosplenomegaly. Currently, no rebound or guarding noted. EXTREMITIES: Negative for clubbing, cyanosis, or edema. RECTAL/GENITAL: Refused. NEUROLOGIC: Cranial nerves II through XII are grossly intact without focal deficits. Motor strength is 5/5 bilaterally. Deep tendon reflexes are 2+ plantar. LABORATORY STUDIES: WBC 5.2, hemoglobin 12.2, hematocrit 37.9, and platelets 140,000. Sodium 142, potassium 3.7, chloride 99, CO2 30, BUN 28, creatinine 8.6, and glucose 103. Troponin 0.0. EKG demonstrated normal sinus rhythm without acute ST changes or Q-waves noted. A chest x-ray revealed no acute disease. ASSESSMENT: This is a 53-year-old female. 1. Chest pain. 2. End-stage renal disease. 3. Hypotension. 4. Anemia of chronic renal disease. 5. Obesity. 6. Glaucoma. 7. History of parathyroidectomy. TREATMENT: 1. Chest pain. A Cardiology consultation has been obtained with Dr. Ingram. We will follow recommendation of Cardiology. Serial troponin levels will be performed. 2. End-stage renal disease. A Nephrology consultation has been obtained with Dr. Conner. We will follow recommendations of Nephrology. The patient is scheduled for dialysis on 03/30/2018. 3. Hypotension. Continue midodrine as above. 4. Anemia of chronic renal disease. 5. Obesity. 6. Glaucoma. Continue Travatan as above. Edward Herman Harrell DR: ERIK JOB#: [id number] CC:
[2018-03-30] VITALS: BP 83/45
[2018-03-30 04:00] VITALS: BP 82/47
[2018-03-30 08:19] VITALS: BP 101/51
[2018-03-30] MEDS: Heparin 5000 units/ml inj SUBQ SCH (08:23)
[2018-03-30] MEDS: Midodrine 10mg tab ORAL SCH ×2 (08:24→21:46)
[2018-03-30] MEDS ORDERED: Sensipar 30mg Tab ORAL SCH (09:00)
[2018-03-30 09:14] LABS: BASOPHILS % (AUTO) 0.9 % (0.0-2.0); EOSINOPHILS % (AUTO) 10.3 % (0.0-3.0); HEMATOCRIT 36.3 % (37.0-47.0); HEMOGLOBIN 11.6 G/DL (12.0-16.0); LYMPHOCYTES % (AUTO) 25.8 % (20.0-45.0); MEAN CORPUSCULAR VOLUME 94 FL (80-99); MONOCYTES % (AUTO) 9.6 % (1.0-10.0); NEUTROPHILS % (AUTO) 53.4 % (45.0-75.0); PLATELET COUNT 133 K/UL (150-450); RED BLOOD COUNT 3.86 M/UL (4.20-5.40); RED CELL DISTRIBUTION WIDTH 14.5 % (11.6-14.8); WHITE BLOOD COUNT 4.7 K/UL (4.8-10.8)
[2018-03-30 09:36] LABS: ALBUMIN 3.5 G/DL (3.4-5.0); ANION GAP 13 mmol/L (5-15); BLOOD UREA NITROGEN 38 mg/dL (7-18); CALCIUM 8.1 MG/DL (8.5-10.1); CARBON DIOXIDE 30 MMOL/L (21-32); CHLORIDE 99 MMOL/L (98-107); CREATININE 10.2 MG/DL (0.55-1.30); PHOSPHORUS 5.2 MG/DL (2.5-4.9); POTASSIUM 4.6 MMOL/L (3.5-5.1); SODIUM 142 MMOL/L (136-145)
[2018-03-30] MEDS: Eliquis 2.5mg tablet ORAL SCH ×2 (09:47→17:13)
--- NOTE | 2018-03-30 11:24 | Consultation ---
Consult Note Consult Note [facility] for dialysis management Chief Complaint: Pain 53-year-old female presents ED for evaluation. Complaining of chest pain times one week. States it started on the left side of her chest and is now radiating across the chest. 7 out of 10, sharp. Denies shortness of breath. States it hurts with positional change. Denies cough. Denies fevers or chills. History of end-stage renal diseasegets dialysis Wednesday. He is compliant with her dialysis. Denies drug use. No other aggravating relieving factors. Denies any other associated symptoms Allergies: Coded Allergies: CEFAZOLIN (Verified Allergy, Unknown, 10/02/10) CIPROFLOXACIN (Verified Allergy, Unknown, 10/02/10) GENTAMICIN (Verified Allergy, Unknown, 10/02/10) KETAMINE (Verified Allergy, Unknown, 03/29/18) LEVOFLOXACIN (Verified Allergy, Unknown, 10/02/10) PENICILLINS (Verified Allergy, Unknown, ITCH, 10/02/10) Uncoded Allergies: CONTRAST MEDIA (Adverse Reaction, Mild, MILD ITCHING AFTER CONTRAST MEDIA, 04/30/17) Patient History Past Medical History: GERD, renal disease, dialysis Hx Cardiac Problems: Yes Hx Gastrointestinal Problems: Yes - GERN Hx Dialysis: Yes - M,W,F last dialysis 03/28/2018 interrviewed examined data reviewed has right femoral permacath Assessment/Plan ESRD on HD HypoThyroidism Periodic Hypotension HD today per orders Fredrick Conner MD Mar 30, 2018 11:24
--- NOTE | 2018-03-30 11:28 | Consultation ---
History of Present Illness General Date patient seen: Mar 30, 2018 Chief Complaint: Chest Pain Present Illness HPI 53-year-old female with hx of ESRF on HD, HTN, presented to ED with CC of chest pain for one week, started the left side of her chest and is now radiating across the chest. 7 out of 10, sharp. Denies shortness of breath. States it hurts with positional change. Denies cough. Denies fevers or chills. Denies drug use. No other aggravating relieving factors. Denies any other associated symptoms Allergies: Coded Allergies: CEFAZOLIN (Verified Allergy, Unknown, 10/02/10) CIPROFLOXACIN (Verified Allergy, Unknown, 10/02/10) GENTAMICIN (Verified Allergy, Unknown, 10/02/10) KETAMINE (Verified Allergy, Unknown, 03/29/18) LEVOFLOXACIN (Verified Allergy, Unknown, 10/02/10) PENICILLINS (Verified Allergy, Unknown, ITCH, 10/02/10) Uncoded Allergies: CONTRAST MEDIA (Adverse Reaction, Mild, MILD ITCHING AFTER CONTRAST MEDIA, 04/30/17) Medication History Scheduled Apixaban (Eliquis), 2.5 MG PO BID, (Reported) Cinacalcet* (Sensipar*), 30 MG ORAL 3XW, (Reported) Midodrine* (Proamatine*), 20 MG ORAL BID, (Reported) Omeprazole (Omeprazole), 20 MG ORAL BID, (Reported) Sevelamer Carbonate (Renvela), 1,600 MG ORAL THREE TIMES A DAY, (Reported) Travoprost (Travatan Z), 5 ML OP BID, (Reported) Scheduled PRN Codeine/Promethazine Hcl* (Promethazine-Codeine Syrup*), 5 ML ORAL Q6H PRN for For Cough, (Reported) Zolpidem Tartrate* (Ambien*), 10 MG PO HS PRN for INSOMNIA, (Reported) Miscellaneous Medications Fluticasone/Salmeterol (Advair Hfa 115-21 Mcg Inhaler), 2 PUFFS INH, (Reported) Patient History Healthcare decision maker N Resuscitation status Full Code Advanced Directive on File No Past Medical/Surgical History Past Medical/Surgical History: (1) ESRD (end stage renal disease) on dialysis (2) Pulmonary embolism (3) CHF (congestive heart failure) (4) HTN (hypertension) (5) Hiatal hernia (6) Anemia of renal disease Review of Systems All Other Systems: negative except mentioned in HPI Physical Exam General Appearance: WD/WN Lines, tubes and drains: peripheral HEENT: normocephalic, atraumatic Neck: non-tender, normal alignment Respiratory/Chest: chest wall non-tender, lungs clear Cardiovascular/Chest: normal peripheral pulses, regular rhythm Abdomen: normal bowel sounds, non tender Extremities: normal range of motion Skin Exam: normal pigmentation Neurologic: diet therapist II-XII grossly normal Last 24 Hour Vital Signs Date Time Temp Pulse Resp B/P (MAP) Pulse Ox O2 Delivery O2 Flow Rate FiO2 03/30/18 08:19 98.2 64 18 101/51 (68) 96 03/30/18 07:56 59 03/30/18 07:45 63 16 Room Air 21 03/30/18 07:27 Room Air 03/30/18 04:00 54 03/30/18 04:00 97.4 57 17 82/47 (59) 96 03/30/18 00:00 51 03/30/18 00:00 97.3 59 17 83/45 (58) 95 03/29/18 21:00 Room Air 03/29/18 20:00 97.3 58 18 82/43 (56) 100 03/29/18 20:00 58 03/29/18 19:58 Room Air 03/29/18 18:15 98.0 77 17 87/42 98 Room Air 03/29/18 17:10 98.0 77 17 87/42 98 Room Air 03/29/18 15:13 89 15 83/47 100 Room Air 03/29/18 13:40 87 18 Room Air 03/29/18 13:40 97.3 84 17 87/50 100 Room Air 03/29/18 13:30 97.3 80 16 86/49 87 Room Air Intake and Output 03/29/18 03/30/18 19:00 07:00 Intake Total 300 ml 60 ml Balance 300 ml 60 ml Intake Oral 50 ml 60 ml IV Total 250 ml Laboratory Tests Test 03/29/18 14:00 03/29/18 21:25 03/30/18 07:25 White Blood Count 5.2 K/UL (4.8-10.8) 4.7 K/UL (4.8-10.8) L Red Blood Count 4.05 M/UL (4.20-5.40) L 3.86 M/UL (4.20-5.40) L Hemoglobin 12.0 G/DL (12.0-16.0) 11.6 G/DL (12.0-16.0) L Hematocrit 37.9 % (37.0-47.0) 36.3 % (37.0-47.0) L Mean Corpuscular Volume 94 FL (80-99) 94 FL (80-99) Mean Corpuscular Hemoglobin 29.6 PG (27.0-31.0) 30.0 PG (27.0-31.0) Mean Corpuscular Hemoglobin Concent 31.6 G/DL (32.0-36.0) L 31.9 G/DL (32.0-36.0) L Red Cell Distribution Width 14.3 % (11.6-14.8) 14.5 % (11.6-14.8) Platelet Count 140 K/UL (150-450) L 133 K/UL (150-450) L Mean Platelet Volume 8.6 FL (6.5-10.1) 9.9 FL (6.5-10.1) Neutrophils (%) (Auto) 50.4 % (45.0-75.0) 53.4 % (45.0-75.0) Lymphocytes (%) (Auto) 33.1 % (20.0-45.0) 25.8 % (20.0-45.0) Monocytes (%) (Auto) 8.6 % (1.0-10.0) 9.6 % (1.0-10.0) Eosinophils (%) (Auto) 7.2 % (0.0-3.0) H 10.3 % (0.0-3.0) H Basophils (%) (Auto) 0.7 % (0.0-2.0) 0.9 % (0.0-2.0) Sodium Level 142 MMOL/L (136-145) 142 MMOL/L (136-145) Potassium Level 3.7 MMOL/L (3.5-5.1) 4.6 MMOL/L (3.5-5.1) Chloride Level 99 MMOL/L (98-107) 99 MMOL/L (98-107) Carbon Dioxide Level 30 MMOL/L (21-32) 30 MMOL/L (21-32) Anion Gap 13 mmol/L (5-15) 13 mmol/L (5-15) Blood Urea Nitrogen 28 mg/dL (7-18) H 38 mg/dL (7-18) H Creatinine 8.6 MG/DL (0.55-1.30) H 10.2 MG/DL (0.55-1.30) H Estimat Glomerular Filtration Rate 5.8 mL/min (>60) 4.7 mL/min (>60) Glucose Level 103 MG/DL (74-106) 86 MG/DL (74-106) Calcium Level 8.6 MG/DL (8.5-10.1) 8.1 MG/DL (8.5-10.1) L Total Bilirubin 0.5 MG/DL (0.2-1.0) Aspartate Amino Transf (AST/SGOT) 28 U/L (15-37) Alanine Aminotransferase (ALT/SGPT) 27 U/L (12-78) Alkaline Phosphatase 331 U/L (46-116) H Total Creatine Kinase 48 U/L (26-308) Creatine Kinase MB < 0.5 NG/ML (0.0-3.6) Creatine Kinase MB Relative Index 1.0 Troponin I 0.000 ng/mL (0.000-0.056) 0.000 ng/mL (0.000-0.056) 0.017 ng/mL (0.000-0.056) Pro-B-Type Natriuretic Peptide 3248 pg/mL (0-125) H Total Protein 8.8 G/DL (6.4-8.2) H Albumin 3.5 G/DL (3.4-5.0) 3.5 G/DL (3.4-5.0) Globulin 5.3 g/dL Albumin/Globulin Ratio 0.7 (1.0-2.7) L Phosphorus Level 5.2 MG/DL (2.5-4.9) H Height (Feet): 5 Height (Inches): 6.00 Weight (Pounds): 205 Medications Current Medications Medications (Trade) Dose Ordered Sig/Marcos Route PRN Reason Start Time Stop Time Status Last Admin Dose Admin Acetaminophen (Tylenol) 650 mg Q4H PRN ORAL Fever 03/29/18 21:00 04/28/18 20:59 Albuterol/ Ipratropium (Albuterol/ Ipratropium) 3 ml Q4H PRN HHN Shortness of Breath 03/29/18 21:00 04/03/18 20:59 Apixaban (Eliquis) 2.5 mg BID ORAL 03/30/18 09:00 04/29/18 08:59 03/30/18 09:47 Cinacalcet (Sensipar) 30 mg 3XW ORAL 03/30/18 09:00 04/29/18 08:59 03/30/18 08:24 Dextrose (Dextrose 50%) 25 ml Q30M PRN IV Hypoglycemia 03/29/18 21:00 04/28/18 20:59 Dextrose (Dextrose 50%) 50 ml Q30M PRN IV Hypoglycemia 03/29/18 21:00 04/28/18 20:59 Midodrine (Pro-Amatine) 20 mg Q12HR ORAL 03/29/18 21:00 04/28/18 20:59 03/30/18 08:24 Morphine Sulfate (Morphine Sulfate) 2 mg Q4H PRN IVP Severe Pain (Pain Scale 7-10) 03/29/18 22:15 04/05/18 22:14 Ondansetron HCl (Zofran) 4 mg Q6H PRN IVP Nausea & Vomiting 03/29/18 21:00 04/28/18 20:59 Pantoprazole (Protonix) 40 mg BID ORAL 03/30/18 09:00 04/29/18 08:59 03/30/18 08:24 Polyethylene Glycol (Miralax) 17 gm DAILYPRN PRN ORAL Constipation 03/29/18 21:00 04/28/18 20:59 Sevelamer Carbonate (Renvela) 1,600 mg THREE TIMES A DAY ORAL 03/30/18 09:00 04/29/18 08:59 03/30/18 08:24 Temazepam (Restoril) 15 mg HSPRN PRN ORAL Insomnia 03/29/18 21:00 04/05/18 20:59 Assessment/Plan Problem List: (1) ACS (acute coronary syndrome) ICD Codes: I24.9 - Acute ischemic heart disease, unspecified SNOMED: 267640388 (2) Costochondritis ICD Codes: M94.0 - Chondrocostal junction syndrome [Tietze] SNOMED: 80404598 (3) Anemia of renal disease ICD Codes: D63.1 - Anemia in chronic kidney disease SNOMED: 564377498, 174078616 (4) ESRD (end stage renal disease) on dialysis ICD Codes: N18.6 - End stage renal disease; Z99.2 - Dependence on renal dialysis SNOMED: 000283780 (5) HTN (hypertension) ICD Codes: I10 - Essential (primary) hypertension SNOMED: 79852791 Assessment/Plan serial troponin, ekg echocardiogram Cardiology evaluation anemia w/u symptomatic treatment dvt prophylaxis Cuate Schmidt MD Mar 30, 2018 11:28
[2018-03-30 12:55] VITALS: BP 89/43
[2018-03-30] MEDS ORDERED: Heparin 1000 units/ml 1ml Vial INJ SCH (16:15)
[2018-03-30] MEDS ORDERED: DiphenhydrAMINE 50mg/ml Inj IVP PRN (16:15)
[2018-03-30] MEDS ORDERED: Heparin Sod 1000 units/ml 10ml INJ SCH (16:45)
[2018-03-30 17:02] VITALS: BP 70/43
--- NOTE | 2018-03-30 19:35 | Internal Med Progress Note ---
Subjective Date of Service: Mar 30, 2018 Physician Name Harrell,Edward Attending Physician Ash Henley MD Current Medications Medications (Trade) Dose Ordered Sig/Marcos Route PRN Reason Start Time Stop Time Status Last Admin Dose Admin Acetaminophen (Tylenol) 650 mg Q4H PRN ORAL Fever 03/29/18 21:00 04/28/18 20:59 Albuterol/ Ipratropium (Albuterol/ Ipratropium) 3 ml Q4H PRN HHN Shortness of Breath 03/29/18 21:00 04/03/18 20:59 Apixaban (Eliquis) 2.5 mg BID ORAL 03/30/18 09:00 04/29/18 08:59 03/30/18 17:13 Cinacalcet (Sensipar) 30 mg 3XW ORAL 03/30/18 09:00 04/29/18 08:59 03/30/18 08:24 Dextrose (Dextrose 50%) 25 ml Q30M PRN IV Hypoglycemia 03/29/18 21:00 04/28/18 20:59 Dextrose (Dextrose 50%) 50 ml Q30M PRN IV Hypoglycemia 03/29/18 21:00 04/28/18 20:59 Diphenhydramine HCl (Benadryl) 50 mg Q6H PRN IVP Itching 03/30/18 16:15 04/29/18 16:14 03/30/18 16:20 Heparin Sodium (Porcine) (Heparin Sod 1000 units/ml 10ml) 10,000 unit ONCE INJ 03/30/18 16:45 03/30/18 23:59 03/30/18 17:14 Midodrine (Pro-Amatine) 20 mg Q12HR ORAL 03/29/18 21:00 04/28/18 20:59 03/30/18 08:24 Morphine Sulfate (Morphine Sulfate) 2 mg Q4H PRN IVP Severe Pain (Pain Scale 7-10) 03/29/18 22:15 04/05/18 22:14 Ondansetron HCl (Zofran) 4 mg Q6H PRN IVP Nausea & Vomiting 03/29/18 21:00 04/28/18 20:59 Pantoprazole (Protonix) 40 mg DAILY ORAL 03/31/18 09:00 04/30/18 08:59 Polyethylene Glycol (Miralax) 17 gm DAILYPRN PRN ORAL Constipation 03/29/18 21:00 04/28/18 20:59 Sevelamer Carbonate (Renvela) 1,600 mg THREE TIMES A DAY ORAL 03/30/18 09:00 04/29/18 08:59 03/30/18 17:13 Temazepam (Restoril) 15 mg HSPRN PRN ORAL Insomnia 03/29/18 21:00 04/05/18 20:59 Allergies: Coded Allergies: CEFAZOLIN (Verified Allergy, Unknown, 10/02/10) CIPROFLOXACIN (Verified Allergy, Unknown, 10/02/10) GENTAMICIN (Verified Allergy, Unknown, 10/02/10) KETAMINE (Verified Allergy, Unknown, 03/29/18) LEVOFLOXACIN (Verified Allergy, Unknown, 10/02/10) PENICILLINS (Verified Allergy, Unknown, ITCH, 10/02/10) Uncoded Allergies: CONTRAST MEDIA (Adverse Reaction, Mild, MILD ITCHING AFTER CONTRAST MEDIA, 04/30/17) ROS Limited/Unobtainable: No Constitutional: Reports: no symptoms HEENT: Reports: no symptoms Cardiovascular: Reports: chest pain Respiratory: Reports: no symptoms Gastrointestinal/Abdominal: Reports: no symptoms Genitourinary: Reports: no symptoms Neurologic/Psychiatric: Reports: no symptoms Subjective 53 YO F with ESRD admitted with chest pain. Cover for Int John-Dr Henley Objective Last Vital Signs Date Time Temp Pulse Resp B/P (MAP) Pulse Ox O2 Delivery O2 Flow Rate FiO2 03/30/18 17:02 98.2 65 18 70/43 (52) 96 03/30/18 07:45 Room Air 21 General Appearance: WD/WN, no apparent distress, alert EENT: PERRL/EOMI, normal ENT inspection, TMs normal Neck: non-tender, normal alignment, supple Cardiovascular: normal peripheral pulses, normal rate, regular rhythm, no gallop/murmur, no JVD Respiratory/Chest: chest wall non-tender, lungs clear, normal breath sounds, no respiratory distress, no accessory muscle use Abdomen: normal bowel sounds, non tender, soft, no organomegaly, no mass Extremities: normal range of motion 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, no motor/sensory deficits Skin: normal pigmentation, warm/dry Laboratory Tests Test 03/29/18 21:25 03/30/18 07:25 03/30/18 07:55 Troponin I 0.000 ng/mL (0.000-0.056) 0.017 ng/mL (0.000-0.056) White Blood Count 4.7 K/UL (4.8-10.8) L Red Blood Count 3.86 M/UL (4.20-5.40) L Hemoglobin 11.6 G/DL (12.0-16.0) L Hematocrit 36.3 % (37.0-47.0) L Mean Corpuscular Volume 94 FL (80-99) Mean Corpuscular Hemoglobin 30.0 PG (27.0-31.0) Mean Corpuscular Hemoglobin Concent 31.9 G/DL (32.0-36.0) L Red Cell Distribution Width 14.5 % (11.6-14.8) Platelet Count 133 K/UL (150-450) L Mean Platelet Volume 9.9 FL (6.5-10.1) Neutrophils (%) (Auto) 53.4 % (45.0-75.0) Lymphocytes (%) (Auto) 25.8 % (20.0-45.0) Monocytes (%) (Auto) 9.6 % (1.0-10.0) Eosinophils (%) (Auto) 10.3 % (0.0-3.0) H Basophils (%) (Auto) 0.9 % (0.0-2.0) Sodium Level 142 MMOL/L (136-145) Potassium Level 4.6 MMOL/L (3.5-5.1) Chloride Level 99 MMOL/L (98-107) Carbon Dioxide Level 30 MMOL/L (21-32) Anion Gap 13 mmol/L (5-15) Blood Urea Nitrogen 38 mg/dL (7-18) H Creatinine 10.2 MG/DL (0.55-1.30) H Estimat Glomerular Filtration Rate 4.7 mL/min (>60) Glucose Level 86 MG/DL (74-106) Calcium Level 8.1 MG/DL (8.5-10.1) L Phosphorus Level 5.2 MG/DL (2.5-4.9) H Albumin 3.5 G/DL (3.4-5.0) Thyroid Stimulating Hormone (TSH) 0.925 uiU/mL (0.358-3.740) Intake and Output 03/29/18 03/30/18 19:00 07:00 Intake Total 300 ml 60 ml Balance 300 ml 60 ml Intake Oral 50 ml 60 ml IV Total 250 ml Assessment/Plan Problem List: (1) Chest pain Assessment & Plan: See Cardiology note. (2) ESRD (end stage renal disease) on dialysis Assessment & Plan: Hemodialysis per nephrology (3) CHF (congestive heart failure) Assessment & Plan: BNP>3000. see cardiology note. (4) Hypotension Assessment & Plan: Continue mididrine (5) Anemia of renal disease Edward Harrell MD Mar 30, 2018 19:35
[2018-03-30 20:00] VITALS: BP 85/44
--- NOTE | 2018-03-30 21:28 | Cardiology Progress Note ---
Assessment/Plan Assessment/Plan 1. Low blood pressure readings/hypotension asymptomatic chronic 2. End-stage renal disease, on hemodialysis. 3. Shortness of breath. 4. Hypoxemia 5. sinus ade 6. 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 Large hiatal hernia 8. atypical chest pain likely m/s all trop neg ekg unchaged but abnormal chronically echo to assure no effusion woudl consider out pt cardiac testing if needed [id number] Objective Last 24 Hour Vital Signs Date Time Temp Pulse Resp B/P (MAP) Pulse Ox O2 Delivery O2 Flow Rate FiO2 03/30/18 20:00 98.2 66 18 85/44 (58) 95 03/30/18 20:00 56 03/30/18 19:39 66 16 Room Air 21 03/30/18 17:02 98.2 65 18 70/43 (52) 96 03/30/18 15:12 65 03/30/18 12:55 98.2 81 18 89/43 (58) 96 03/30/18 12:01 44 03/30/18 08:19 98.2 64 18 101/51 (68) 96 03/30/18 07:56 59 03/30/18 07:45 63 16 Room Air 21 03/30/18 07:27 Room Air 03/30/18 04:00 54 03/30/18 04:00 97.4 57 17 82/47 (59) 96 03/30/18 00:00 51 03/30/18 00:00 97.3 59 17 83/45 (58) 95 Intake and Output 03/29/18 03/30/18 19:00 07:00 Intake Total 300 ml 60 ml Balance 300 ml 60 ml Intake Oral 50 ml 60 ml IV Total 250 ml Laboratory Tests Test 03/30/18 07:25 03/30/18 07:55 White Blood Count 4.7 K/UL (4.8-10.8) L Red Blood Count 3.86 M/UL (4.20-5.40) L Hemoglobin 11.6 G/DL (12.0-16.0) L Hematocrit 36.3 % (37.0-47.0) L Mean Corpuscular Volume 94 FL (80-99) Mean Corpuscular Hemoglobin 30.0 PG (27.0-31.0) Mean Corpuscular Hemoglobin Concent 31.9 G/DL (32.0-36.0) L Red Cell Distribution Width 14.5 % (11.6-14.8) Platelet Count 133 K/UL (150-450) L Mean Platelet Volume 9.9 FL (6.5-10.1) Neutrophils (%) (Auto) 53.4 % (45.0-75.0) Lymphocytes (%) (Auto) 25.8 % (20.0-45.0) Monocytes (%) (Auto) 9.6 % (1.0-10.0) Eosinophils (%) (Auto) 10.3 % (0.0-3.0) H Basophils (%) (Auto) 0.9 % (0.0-2.0) Sodium Level 142 MMOL/L (136-145) Potassium Level 4.6 MMOL/L (3.5-5.1) Chloride Level 99 MMOL/L (98-107) Carbon Dioxide Level 30 MMOL/L (21-32) Anion Gap 13 mmol/L (5-15) Blood Urea Nitrogen 38 mg/dL (7-18) H Creatinine 10.2 MG/DL (0.55-1.30) H Estimat Glomerular Filtration Rate 4.7 mL/min (>60) Glucose Level 86 MG/DL (74-106) Calcium Level 8.1 MG/DL (8.5-10.1) L Phosphorus Level 5.2 MG/DL (2.5-4.9) H Troponin I 0.017 ng/mL (0.000-0.056) Albumin 3.5 G/DL (3.4-5.0) Thyroid Stimulating Hormone (TSH) 0.925 uiU/mL (0.358-3.740) Cilnt Jay MD Mar 30, 2018 21:28
[2018-03-30] MEDS: Morphine Sulfate 2mg/ml Inj IVP PRN (22:04)
[2018-03-31] VITALS: BP 87/43
[2018-03-31 04:00] VITALS: BP 86/47
[2018-03-31 06:50] LABS: BASOPHILS % (AUTO) 0.6 % (0.0-2.0); EOSINOPHILS % (AUTO) 12.3 % (0.0-3.0); HEMATOCRIT 35.6 % (37.0-47.0); HEMOGLOBIN 11.5 G/DL (12.0-16.0); LYMPHOCYTES % (AUTO) 28.1 % (20.0-45.0); MEAN CORPUSCULAR VOLUME 93 FL (80-99); MONOCYTES % (AUTO) 8.5 % (1.0-10.0); NEUTROPHILS % (AUTO) 50.6 % (45.0-75.0); PLATELET COUNT 132 K/UL (150-450); RED BLOOD COUNT 3.82 M/UL (4.20-5.40); RED CELL DISTRIBUTION WIDTH 14.4 % (11.6-14.8); WHITE BLOOD COUNT 4.5 K/UL (4.8-10.8)
[2018-03-31 07:02] LABS: ALANINE AMINOTRANSFERASE 20 U/L (12-78); ALBUMIN 3.3 G/DL (3.4-5.0); ALBUMIN/GLOBULIN RATIO 0.6 (1.0-2.7); ALKALINE PHOSPHATASE 300 U/L (46-116); ANION GAP 9 mmol/L (5-15); ASPARTATE AMINO TRANSFERASE 16 U/L (15-37); BILIRUBIN,TOTAL 0.5 MG/DL (0.2-1.0); BLOOD UREA NITROGEN 26 mg/dL (7-18); CALCIUM 8.2 MG/DL (8.5-10.1); CARBON DIOXIDE 33 MMOL/L (21-32); CHLORIDE 99 MMOL/L (98-107); CHOLESTEROL 136 MG/DL (< 200); CREATININE 8.3 MG/DL (0.55-1.30); HDL CHOLESTEROL 48 MG/DL (40-60); POTASSIUM 3.8 MMOL/L (3.5-5.1); SODIUM 141 MMOL/L (136-145); TRIGLYCERIDES 152 MG/DL (30-150)
[2018-03-31 08:00] VITALS: BP 92/48
[2018-03-31] MEDS: Eliquis 2.5mg tablet ORAL SCH (09:13)
[2018-03-31] MEDS: Midodrine 10mg tab ORAL SCH (09:13)
[2018-03-31] MEDS: Morphine Sulfate 2mg/ml Inj IVP PRN ×2 (10:25→15:30)
--- NOTE | 2018-03-31 11:00 | Consultation ---
DATE OF CONSULTATION: 03/30/2018 CARDIOLOGY CONSULTATION CONSULTING PHYSICIAN: Clint Jay M.D. REFERRING PHYSICIAN: Ash Henley M.D. REASON FOR REFERRAL: Chest pain. HISTORY OF PRESENT ILLNESS: This is a middle-aged female, who is known to me from prior evaluation and hospitalization here. The patient presented to the hospital because of pain that has been going on for the past few days, constantly present and starts from the left side of the lower lateral abdomen, radiates up to the upper back across from the left to the right and eventually across the chest as well. This has been constantly present in the past few days without any significant relief, although today she is feeling better. Relieving and exacerbating factors are twisting, turning, or changing her body position, sometimes even walking, not with swallowing, and specifically occurs with coughing. She does not have any PND. She has two-pillow usage for comfort. There is no dizziness or lightheadedness on standing. No heart pounding or palpitations. PAST MEDICAL HISTORY: Extensive with a history of a bronchitis, end-stage renal disease, systemic hypertension, morbid obesity, anemia of chronic disease, bacteremia, multiple Perm-Cath, , cholecystectomy, parathyroidectomy, carpal tunnel release, open reduction and internal fixation of the left elbow, renal transplant x2, which apparently failed, and history of peritoneal dialysis. She has had episodes of asymptomatic hypotension. She has a history of shortness of breath, hypoxemia, and sinus bradycardia. She has had a previous V/Q scan that was intermediate probability and apparently some kind of allergic reaction to contrast and apparently subsequently a CT angiogram was performed showing a central pulmonary venous occlusive disease including SVC, but no pulmonary embolus and questionable intrapulmonary shunt. Her LV function was normal previously, no pericardial effusion and no evidence of acute ischemia. She had massive hiatal hernia, distal esophageal wall thickening suggestive of esophagitis on prior CT scan, and nonspecific breast calcifications. SOCIAL HISTORY: She does not smoke, never did. Does not drink, never did. Does not use drugs, never did. 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 REVIEW OF SYSTEMS: GASTROINTESTINAL: She has nausea, vomiting, and diarrhea. No bloody or black stool. GENITOURINARY: She does not make any urine. PULMONARY: She does not have any coughing or wheezing. CONSTITUTIONAL: Negative. NEUROLOGIC: Negative. PHYSICAL EXAMINATION: VITAL SIGNS: Her blood pressure is anywhere between 70/43 to 89/43 with heart rate in the 60s to 80s, and temperature 98.2. GENERAL: Shows to be a middle-aged female, in no respiratory distress. NECK: Supple. LUNGS: Appear to be clear to auscultation and percussion. CARDIAC: Regular rate and rhythm. No heaves, thrills, or gallops noted. ABDOMEN: Soft and nontender. Positive bowel sounds. EXTREMITIES: She has no clubbing or cyanosis nor is there any edema. NEUROLOGICAL: She is awake, alert, and responsive, in no apparent distress. LABORATORY AND DIAGNOSTIC DATA: Her laboratory values, white count of 4.7, hemoglobin 11.6, and platelet count of 133,000. Sodium is 142, potassium 4.0, chloride 99, bicarbonate 30, BUN of 38, creatinine 10.2, glucose of 86, calcium is 8.1, and phosphorus of 5.2. Troponins on three separate occasions were negative. Albumin of 3.5. TSH is 0.92. Previously, she has had cortisol levels checked back in April 2017 and that was negative at that time. Her chest x-ray that was performed yesterday showed no acute cardiopulmonary processes. There is substantial hiatal hernia. Extensive calcification in the right axillary area felt to be vascular in origin. Her EKG shows low-voltage QRS complexes, some nonspecific T-wave changes in V1 through V3 and in direct comparison with her prior one back in June 2015, it is otherwise unchanged. ASSESSMENT: 1. Atypical chest pain, possibly musculoskeletal in origin. 2. History of end-stage renal disease, on hemodialysis. 3. Hypotension, asymptomatic, chronic, recurrent. 4. Pulmonary venous occlusive disease history based on CT findings. 5. Multiple drug intolerances. 6. Sinus bradycardia. 7. Large hiatal hernia. PLAN: This patient was admitted to the hospital. The patient's relieving or exacerbating factors are more in line with musculoskeletal cause. All the cardiac enzymes so far is negative. The patient's electrocardiogram is unchanged. Her blood pressure has been chronically low in the 70s and 80s. She is asymptomatic. She has had some extensive workup previously. Recommend repeating an echocardiogram to once again assure lack of pericardial effusion and estimate pulmonary artery pressures. She does not have any significant evidence of peripheral edema to be suggestive of right heart failure at the present time that she is on dialysis. A cortisol stimulation test may be a reasonable option, although the cortisol level was normal in May 2017. She has had previous V/Q scans of an indeterminate probability and she has had CT pulmonary angiogram back in June 2017 as noted above. The etiology of the pulmonary venous occlusive disease is still unknown to me at this time. Clint Jay M.D. DR: PHIL JOB#: [id number] CC:
--- NOTE | 2018-03-31 11:06 | Pulmonology Progress Note ---
Assessment/Plan Problems: (1) ACS (acute coronary syndrome) (2) Costochondritis (3) Anemia of renal disease (4) ESRD (end stage renal disease) on dialysis (5) HTN (hypertension) Assessment/Plan cardiology appreciated chest pain most likely skeletomuscular HD done yesterday symptomatic treatment dc planning med/recon done. f/u by PMD Subjective ROS Limited/Unobtainable: No Constitutional: Reports: no symptoms HEENT: Repors: no symptoms Respiratory: Reports: no symptoms Cardiovascular: Reports: no symptoms Allergies: Coded Allergies: CEFAZOLIN (Verified Allergy, Unknown, 10/02/10) CIPROFLOXACIN (Verified Allergy, Unknown, 10/02/10) GENTAMICIN (Verified Allergy, Unknown, 10/02/10) KETAMINE (Verified Allergy, Unknown, 03/29/18) LEVOFLOXACIN (Verified Allergy, Unknown, 10/02/10) PENICILLINS (Verified Allergy, Unknown, ITCH, 10/02/10) Uncoded Allergies: CONTRAST MEDIA (Adverse Reaction, Mild, MILD ITCHING AFTER CONTRAST MEDIA, 04/30/17) Objective Last 24 Hour Vital Signs Date Time Temp Pulse Resp B/P (MAP) Pulse Ox O2 Delivery O2 Flow Rate FiO2 03/31/18 09:00 Room Air 03/31/18 08:00 97.9 51 19 92/48 (63) 94 03/31/18 07:45 44 03/31/18 04:00 97.9 49 18 86/47 (60) 94 03/31/18 04:00 45 03/31/18 00:00 96.9 50 18 87/43 (58) 95 03/31/18 00:00 46 03/30/18 21:00 Room Air 03/30/18 20:00 98.2 66 18 85/44 (58) 95 03/30/18 20:00 56 03/30/18 19:39 66 16 Room Air 21 03/30/18 17:02 98.2 65 18 70/43 (52) 96 03/30/18 15:12 65 03/30/18 12:55 98.2 81 18 89/43 (58) 96 03/30/18 12:01 44 Intake and Output 03/30/18 03/31/18 19:00 07:00 Intake Total 960 ml 240 ml Output Total 2000 ml Balance -1040 ml 240 ml Intake Oral 960 ml 240 ml Output Hemodialysis UF 2000 ml General Appearance: WD/WN, no acute distress HEENT: atraumatic Respiratory/Chest: chest wall non-tender, lungs clear Breasts: no masses Cardiovascular: normal peripheral pulses, normal rate Abdomen: normal bowel sounds, no organomegaly Genitourinary: normal external genitalia Extremities: no clubbing 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 Complete 03/29/18 15:45 Rectum VRE Culture - Final NO VANCOMYCIN RESISTANT ENTEROCOCCUS ... Complete 03/29/18 15:45 Rectum - Final NO CARBAPENEM-RESISTANT ENTEROBACTERI... Complete Laboratory Tests 03/31/18 04:48: White Blood Count 4.5L, Red Blood Count 3.82L, Hemoglobin 11.5L, Hematocrit 35.6L, Mean Corpuscular Volume 93, Mean Corpuscular Hemoglobin 30.1, Mean Corpuscular Hemoglobin Concent 32.3, Red Cell Distribution Width 14.4, Platelet Count 132L, Mean Platelet Volume 8.0, Neutrophils (%) (Auto) 50.6, Lymphocytes ( %) (Auto) 28.1, Monocytes (%) (Auto) 8.5, Eosinophils (%) (Auto) 12.3H, Basophils (%) (Auto) 0.6, Sodium Level 141, Potassium Level 3.8, Chloride Level 99, Carbon Dioxide Level 33H, Anion Gap 9, Blood Urea Nitrogen 26H, Creatinine 8.3H, Estimat Glomerular Filtration Rate 6.1, Glucose Level 84, Calcium Level 8.2L, Total Bilirubin 0.5, Aspartate Amino Transf (AST/SGOT) 16, Alanine Aminotransferase (ALT/SGPT) 20, Alkaline Phosphatase 300H, Total Protein 8.5H, Albumin 3.3L, Globulin 5.2, Albumin/Globulin Ratio 0.6L, Triglycerides Level 152H, Cholesterol Level 136, LDL Cholesterol 61, HDL Cholesterol 48, Cholesterol /HDL Ratio 2.8L, Cortisol AM Sample [Pending] Current Medications Medications (Trade) Dose Ordered Sig/Marcos Route PRN Reason Start Time Stop Time Status Last Admin Dose Admin Acetaminophen (Tylenol) 650 mg Q4H PRN ORAL Fever 03/29/18 21:00 04/28/18 20:59 Albuterol/ Ipratropium (Albuterol/ Ipratropium) 3 ml Q4H PRN HHN Shortness of Breath 03/29/18 21:00 04/03/18 20:59 Apixaban (Eliquis) 2.5 mg BID ORAL 03/30/18 09:00 04/29/18 08:59 03/31/18 09:13 Chlorhexidine Gluconate (Nivia-Hex 2%) 1 applic DAILY@2000 TOPIC 03/31/18 20:00 04/30/18 19:59 Cinacalcet (Sensipar) 30 mg 3XW ORAL 03/30/18 09:00 04/29/18 08:59 03/30/18 08:24 Dextrose (Dextrose 50%) 25 ml Q30M PRN IV Hypoglycemia 03/29/18 21:00 04/28/18 20:59 Dextrose (Dextrose 50%) 50 ml Q30M PRN IV Hypoglycemia 03/29/18 21:00 04/28/18 20:59 Diphenhydramine HCl (Benadryl) 50 mg Q6H PRN IVP Itching 03/30/18 16:15 04/29/18 16:14 03/30/18 16:20 Midodrine (Pro-Amatine) 20 mg Q12HR ORAL 03/29/18 21:00 04/28/18 20:59 03/31/18 09:13 Morphine Sulfate (Morphine Sulfate) 2 mg Q4H PRN IVP Severe Pain (Pain Scale 7-10) 03/29/18 22:15 04/05/18 22:14 03/31/18 10:25 Ondansetron HCl (Zofran) 4 mg Q6H PRN IVP Nausea & Vomiting 03/29/18 21:00 04/28/18 20:59 Pantoprazole (Protonix) 40 mg DAILY ORAL 03/31/18 09:00 04/30/18 08:59 03/31/18 09:13 Polyethylene Glycol (Miralax) 17 gm DAILYPRN PRN ORAL Constipation 03/29/18 21:00 04/28/18 20:59 Sevelamer Carbonate (Renvela) 1,600 mg THREE TIMES A DAY ORAL 03/30/18 09:00 04/29/18 08:59 03/30/18 17:13 Temazepam (Restoril) 15 mg HSPRN PRN ORAL Insomnia 03/29/18 21:00 04/05/18 20:59 Cuate Schmidt MD Mar 31, 2018 11:06
[2018-03-31 12:00] VITALS: BP 85/44
--- NOTE | 2018-03-31 12:19 | Nephrology Progress Note ---
Assessment/Plan Problem List: (1) ESRD (end stage renal disease) on dialysis (2) Anemia of renal disease (3) Hypotension Assessment ESRD on HD Periodic Hypotension Plan HD again in am keep bp in check Subjective ROS Limited/Unobtainable: No Objective Objective Last 24 Hour Vital Signs Date Time Temp Pulse Resp B/P (MAP) Pulse Ox O2 Delivery O2 Flow Rate FiO2 03/31/18 09:00 Room Air 03/31/18 08:00 97.9 51 19 92/48 (63) 94 03/31/18 07:45 44 03/31/18 04:00 97.9 49 18 86/47 (60) 94 03/31/18 04:00 45 03/31/18 00:00 96.9 50 18 87/43 (58) 95 03/31/18 00:00 46 03/30/18 21:00 Room Air 03/30/18 20:00 98.2 66 18 85/44 (58) 95 03/30/18 20:00 56 03/30/18 19:39 66 16 Room Air 21 03/30/18 17:02 98.2 65 18 70/43 (52) 96 03/30/18 15:12 65 03/30/18 12:55 98.2 81 18 89/43 (58) 96 Intake and Output 03/30/18 03/31/18 19:00 07:00 Intake Total 960 ml 240 ml Output Total 2000 ml Balance -1040 ml 240 ml Intake Oral 960 ml 240 ml Output Hemodialysis UF 2000 ml Laboratory Tests 03/31/18 04:48: White Blood Count 4.5L, Red Blood Count 3.82L, Hemoglobin 11.5L, Hematocrit 35.6L, Mean Corpuscular Volume 93, Mean Corpuscular Hemoglobin 30.1, Mean Corpuscular Hemoglobin Concent 32.3, Red Cell Distribution Width 14.4, Platelet Count 132L, Mean Platelet Volume 8.0, Neutrophils (%) (Auto) 50.6, Lymphocytes ( %) (Auto) 28.1, Monocytes (%) (Auto) 8.5, Eosinophils (%) (Auto) 12.3H, Basophils (%) (Auto) 0.6, Sodium Level 141, Potassium Level 3.8, Chloride Level 99, Carbon Dioxide Level 33H, Anion Gap 9, Blood Urea Nitrogen 26H, Creatinine 8.3H, Estimat Glomerular Filtration Rate 6.1, Glucose Level 84, Calcium Level 8.2L, Total Bilirubin 0.5, Aspartate Amino Transf (AST/SGOT) 16, Alanine Aminotransferase (ALT/SGPT) 20, Alkaline Phosphatase 300H, Total Protein 8.5H, Albumin 3.3L, Globulin 5.2, Albumin/Globulin Ratio 0.6L, Triglycerides Level 152H, Cholesterol Level 136, LDL Cholesterol 61, HDL Cholesterol 48, Cholesterol /HDL Ratio 2.8L, Cortisol AM Sample 7.9 Height (Feet): 5 Height (Inches): 6.00 Weight (Pounds): 202 General Appearance: no apparent distress Cardiovascular: normal rate Respiratory/Chest: lungs clear Abdomen: non tender Objective no change Fredrick Conner MD Mar 31, 2018 12:19
[2018-03-31] MEDS ORDERED: Docusate 100mg cap ORAL SCH (13:00)
--- NOTE | 2018-03-31 14:41 | Cardiology Report ---
APPROVED REPORT EXAM: Two-dimensional and M-mode echocardiogram with Doppler and color Doppler. INDICATION LV FUNCTION M-Mode DIMENSIONS IVSd1.2 (0.7-1.1cm)Left Atrium (MM)3.5 (1.6-4.0cm) LVDd6.0 (3.5-5.6cm)Aortic Root3.1 (2.0-3.7cm) PWd1.0 (0.7-1.1cm)Aortic Cusp Exc.1.7 (1.5-2.0cm) IVSs1.1 cm LVDs4.8 (2.5-4.0cm) PWs1.1 cm Technically difficult study due to poor acoustical windows . Normal left ventricular chamber size, systolic function and wall motion as well visualized. Left ventricular ejection fraction estimated to be 55-60 %. No evidence of left ventricular hypertrophy. Anterior Echo-free space, may be due to pericardial fat or effusion. All other cardiac chamber sizes are within normal limits. Focal aortic valve sclerosis with adequate cusp excursion. Thickened mitral valve leaflets with normal excursion. Mitral annulus and aortic root calcification. Pulmonic valve not well visualized. Normal tricuspid valve structure. IVC at normal size with physiologic collapse . A color flow and spectral Doppler study was performed and revealed: No aortic regurgitation. Trace mitral regurgitation. Normal left ventricular diastolic function. Mild tricuspid regurgitation. Tricuspid systolic velocities suggests peak right ventricular systolic pressure of 40 mmHg,consistent with mild pulmonary hypertension .
--- NOTE | 2018-03-31 14:55 | Cardiology Report ---
APPROVED REPORT EKG Measurement Heart [id number] Normal sinus rhythm Low voltage QRS Nonspecific ST and T wave abnormality Prolonged QT Abnormal ECG
--- NOTE | 2018-03-31 14:57 | Discharge Summary ---
Discharge Summary Hospital Course Date of Admission Mar 29, 2018 at 15:40 Date of Discharge Admitting Diagnosis CP/rule out ACS HPI Suyapa Fuller is a 53 year old female who was admitted on Mar 29, 2018 at 15:40 for Chest Pain,Rule Out Acute Coronary Syndrome Hospital Course Last 24 Hour Vital Signs Date Time Temp Pulse Resp B/P (MAP) Pulse Ox O2 Delivery O2 Flow Rate FiO2 03/31/18 12:00 97.8 51 21 85/44 (58) 94 03/31/18 11:31 56 03/31/18 09:00 Room Air 03/31/18 08:00 97.9 51 19 92/48 (63) 94 03/31/18 07:45 44 03/31/18 04:00 97.9 49 18 86/47 (60) 94 03/31/18 04:00 45 03/31/18 00:00 96.9 50 18 87/43 (58) 95 03/31/18 00:00 46 03/30/18 21:00 Room Air 03/30/18 20:00 98.2 66 18 85/44 (58) 95 03/30/18 20:00 56 03/30/18 19:39 66 16 Room Air 21 03/30/18 17:02 98.2 65 18 70/43 (52) 96 03/30/18 15:12 65 Physical Exam General: No acute distress, awake and alert HEENT: NCAT, sclera anicteric, PERRL, EOMI. Neck: Supple, no significant jugular venous distention, Lungs: Good inspiratory effort, clear to auscultation bilaterally, no Wheeze or Rales. Heart: Regular rate and rhythm, normal S1/S2, no murmurs Abdomen: soft, nontender, nondistended. Normoactive bowel sounds. Obesity. / Rectal: Refused and deferred. Extremities: No Cyanosis , clubbing or edema. Left UE AVF, Right LE's dialysis cath. Neuro: A&O x 3, Able to move all extremities Skin: warm, no rashes or lesions Psych: Normal mood and affect Discharge Discharge Disposition Patient was discharged to Home (01) Ash Henley MD Mar 31, 2018 14:57
--- NOTE | 2018-03-31 15:02 | Cardiology Report ---
APPROVED REPORT EKG Measurement Heart [id number] Normal sinus rhythm Low voltage QRS T wave abnormality, consider anterior ischemia Prolonged QT Abnormal ECG
[2018-03-31 16:00] VITALS: BP 88/54
[2018-03-31] MEDS ORDERED: Dyna-Hex 2% Top Sol 2oz TOPIC SCH (20:00)
--- NOTE | 2018-04-01 04:30 | Discharge Summary ---
DATE OF ADMISSION: 03/29/2018 DATE OF DISCHARGE: 03/31/2018 HISTORY AND HOSPITAL COURSE: This is a 53-year-old female with past medical history significant for end-stage renal disease, on hemodialysis, history of anemia, chronic kidney disease, hypertension, and obesity who was presented to the hospital after was noted complained about chest pain. Shortly after initial evaluation, the patient was admitted to the hospital with chest pain and possible acute coronary syndrome. Throughout the hospital course, the patient was followed by Dr. Fredrick Conner from Nephrology, Dr. Clint Jay from Cardiology, and Dr. Cuate Schmidt from Pulmonary Critical Care. The patient had previous cardiac enzyme was negative. EKG was unchanged and the echo with no effusion. The patient was subsequently discharged home today to be followed up with health care coordinator as outpatient. FINAL DIAGNOSES: 1. Atypical chest pain. 2. Large hiatal hernia. 3. Extensive central pulmonary venous occlusion, on anticoagulation with Eliquis. 4. Sinus bradycardia. 5. Hypoxemia. 6. Morbid obesity. 7. End-stage renal disease, on hemodialysis. 8. Anemia of chronic kidney disease. MEDICATION ON DISCHARGE: Continue discharge medication list. ACTIVITY: As tolerated. DIET: Renal diet. FOLLOWUP: The patient was advised to follow up with dialysis as scheduled. Ash Henley M.D. DR: MEG JOB#: [id number] CC:
== END 2018-03-31 16:27 | disposition home or self-care (01) | DRG 313 ==
LOC: EMR 14:11 → 2E 15:40 → EDBEDREQ 15:58
PROC: 5A1D70Z Performance of Urinary Filtration, Intermittent, Less than 6 Hours Per Day (ICD-10-PCS; principal; 2018-03-30)
DX: R07.89 Other chest pain (principal); N18.6 End stage renal disease; I26.99 Other pulmonary embolism without acute cor pulmonale; I13.2 Hypertensive heart and chronic kidney disease with heart failure and with stage 5 chronic kidney disease, or end stage renal disease; K44.9 Diaphragmatic hernia without obstruction or gangrene; Z79.01 Long term (current) use of anticoagulants; R00.1 Bradycardia, unspecified; R09.02 Hypoxemia; E66.01 Morbid (severe) obesity due to excess calories; Z99.2 Dependence on renal dialysis; D63.1 Anemia in chronic kidney disease; Z88.1 Allergy status to other antibiotic agents; Z88.0 Allergy status to penicillin; Z88.8 Allergy status to other drugs, medicaments and biological substances; K21.9 Gastro-esophageal reflux disease without esophagitis; E03.9 Hypothyroidism, unspecified; Z91.041 Radiographic dye allergy status; I95.89 Other hypotension; I50.9 Heart failure, unspecified
CPT/HCPCS: 36415; 71045; 80048; 80053; 80061; 80069; 82533; 82550; 82553; 83880; 84443; 84484; 85025; 87081; 93005; 93306; 94664; 96374; 99285

== ENCOUNTER 2018-04-12 10:53 | Inpatient (IN) | payer MEDICARE, OTHER ==
[2018-04-12] VITALS (16 sets, daily range): BP systolic 71–115; BP diastolic 27–80
[~2018-04-12] VITALS: Ht 167.6 cm; Wt 97.5 kg
[~2018-04-12 10:53] MED LIST changes: +ADVAIR HFA 115-12 GM INH; +ELIQUIS5 MG PO; +MIDODRINE HCL10 MG ORAL; +PROMETHAZINE-C118 M1 ORAL; +SYMBICORT 80-10.2 G1 IH; +TRAVATAN Z5 ML OP
--- NOTE | 2018-04-12 11:08 | NUR ---
ED Nurse Note: Pt came from home due to missed dialysis. Pt attends dialysis M, W, F. Last dialysis day was Wednesday. Went to dialysis on Wednesday instead of Wednesday but was not dialysed due to having low BP. Hx of hypotension. Fistula located on the right leg. Bruit present. A + O x4. Skin cold to touch. Will continue to monitor.
[2018-04-12] MEDS ORDERED: UNOBMED (11:12)
[2018-04-12] MEDS ORDERED: NS 250 ML IV ONE (11:17)
--- NOTE | 2018-04-12 11:25 | NUR ---
ED Nurse Note: CXR currently being done at the bedside.
--- NOTE | 2018-04-12 11:44 | Emergency Room Report ---
History of Present Illness General Chief Complaint: General Complaint Source: Patient Present Illness HPI 53-year-old female presents ED for evaluation. Patient states that she is feeling weak and "sick". Denies fevers or chills. Denies chest pain or shortness of breath. History of end-stage renal disease. States that she missed her last dialysis session because she didn't feel well. Blood pressure low in triage. Patient normally has low blood pressure but states this is lower than usual. Denies any dizziness. Denies cough. No other aggravating relieving factors. Denies any other associated symptoms Allergies: Coded Allergies: CEFAZOLIN (Verified Allergy, Unknown, 10/02/10) CIPROFLOXACIN (Verified Allergy, Unknown, 10/02/10) GENTAMICIN (Verified Allergy, Unknown, 10/02/10) KETAMINE (Verified Allergy, Unknown, 03/29/18) LEVOFLOXACIN (Verified Allergy, Unknown, 10/02/10) PENICILLINS (Verified Allergy, Unknown, ITCH, 10/02/10) Uncoded Allergies: CONTRAST MEDIA (Adverse Reaction, Mild, MILD ITCHING AFTER CONTRAST MEDIA, 04/30/17) Patient History Past Medical History: renal disease, dialysis Pertinent Family History: none Social History: Denies: smoking, alcohol use, drug use Now: No Immunizations: UTD Reviewed Nursing Documentation: PMH: Agreed; PSxH: Agreed Nursing Documentation-PMH Past Medical History: No History, Except For Hx Cardiac Problems: Yes - hypotension Hx Pacemaker: No Hx Asthma: No Hx COPD: No Hx Diabetes: No Hx Cancer: No Hx Gastrointestinal Problems: Yes Hx Dialysis: Yes - right leg fistula Hx Neurological Problems: No Hx Cerebrovascular Accident: No Hx Seizures: No Review of Systems All Other Systems: negative except mentioned in HPI Physical Exam Vital Signs Date Time Temp Pulse Resp B/P (MAP) Pulse Ox O2 Delivery O2 Flow Rate FiO2 04/12/18 11:01 98.2 79 12 53/42 99 Room Air 04/12/18 11:11 98 Sp02 EP Interpretation: reviewed, normal General Appearance: no apparent distress, alert, GCS 15, non-toxic Head: normocephalic, atraumatic Eyes: bilateral eye normal inspection, bilateral eye PERRL ENT: hearing grossly normal, normal pharynx, no angioedema, normal voice Neck: full range of motion, supple/symm/no masses Respiratory: chest non-tender, lungs clear, normal breath sounds, speaking full sentences Cardiovascular #1: regular rate, rhythm, no edema Cardiovascular #2: 2+ carotid (R), 2+ carotid (L), 2+ radial (R), 2+ radial (L) , 2+ dorsalis pedis (R), 2+ dorsalis pedis (L) Gastrointestinal: normal bowel sounds, non tender, soft, non-distended, no guarding, no rebound Rectal: deferred Genitourinary: normal inspection, no CVA tenderness Musculoskeletal: back normal, gait/station normal, normal range of motion, non- tender Neurologic: alert, oriented x3, responsive, motor strength/tone normal, sensory intact, speech normal Psychiatric: judgement/insight normal, memory normal, mood/affect normal, no suicidal/homicidal ideation Reflexes: 3+ bicep (R), 3+ bicep (L), 3+ tricep (R), 3+ tricep (L), 3+ knee (R) , 3+ knee (L) Skin: normal color, no rash, warm/dry, well hydrated Lymphatic: no adenopathy Procedures Critical Care Time Critical Care Time i. I feel this is a highly complex case requiring extensive working including EKG/Rhythm strip, Xray/CT/US, Blood/urine lab work, repeat exams while in ED, and administration of strong opiates/narcotics for pain control, admission to hospital or close patient follow up. Total time: 75 min bedside evaluation and treatment excludes procedures (EKG). Reason for critical care: hypotension, ESRD on dialysis Possible complications: hypotension, hypertension, [place], shock, arrhythmias, metabolic acidosis, end organ damage, respiratory failure. Interventions: labs, IVFS, EKG, CXR. midodrine, albumin X 2, central line attempt, consutlation with surgeon to use permacath as central line. pressors Course: Patient presenting with weakness, hypotensive. Missed dialysis 2. Systolic in the 60s. Patient given NS bolus 2. Given a midodrine. Given albumin x 2 without improvement in pressure. Patient has difficult IV access. Multiple attempts for L femoral line without success - has thrombus. Has occlusions in both IJ's. Discussed with surgeon and agrees that accessing the permacath as a central line is indicated. Admitting physician agrees. Dopamine ordered. Given antibiotics. Consultations: nursing staff, EMS, family Performed by: Dr Oquendo Tolerated well condition = critical j. because of unstable vital signs this patient had a condition that could potentially threaten life or limb. I feel this is a critical patient who required my full attention while patient was considered critical. Total Critical Care Time excluding procedures was greater than 35 minutes Medical Decision Making Diagnostic Impression: Primary Impression: Hypotension Qualified Codes: I95.9 - Hypotension, unspecified Additional Impressions: ESRD (end stage renal disease) on dialysis Pneumonia Qualified Codes: J18.1 - Lobar pneumonia, unspecified organism ER Course Hospital Course 53-year-old female presenting to ED with generalized weakness, hypotensive. missed dialysis Differential diagnoses include: Pneumonia, UTI, sepsis, dehydration, [place]/ unstable angina Clinical course Patient placed on stretcher. 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 After initial history and physical, I ordered labs, IV fluids, EKG, chest x-ray, blood cultures, UA. Labs - BUN/Cr elevated, no leukocytosis, troponins 0.029, BNP elevated CXR - new L lobe infiltrate/opacity EKG - NSR, no acute ischemic changes interpreted by me Patient is known to be hypotensive at baseline with systolic in the 90s. Patient had been given on previous hospitalizations midodrine and albumin with resolution. Patient was given midodrine and albumin 2 without improvement. Discussed with family. Likelihood for central line with pressors family consented Patient has occlusion of both IJ's. Has permacath and right femoral. I made attempt to access left femoral but there is a thrombosis. Discussed with surgeon. Agreed that permacath will be used for pressors. Patient also has a fistula on the left upper extremity that is working Abx given. Dopamine started. BP slowly improving Case discussed with Dr Henley and they agreed to admit patient to their service for further care and support I feel this is a highly complex case requiring extensive working including EKG/ Rhythm strip, Xray/CT/US, Blood/urine lab work, repeat exams while in ED, and administration of strong opiates/narcotics for pain control, admission to hospital or close patient follow up. Diagnosis - hypotension, ESRD on dialysis, pneumonia Patient admitted to ICU in critical condition Labs Test 04/12/18 11:35 White Blood Count 3.4 K/UL (4.8-10.8) Red Blood Count 3.80 M/UL (4.20-5.40) Hemoglobin 11.6 G/DL (12.0-16.0) Hematocrit 36.4 % (37.0-47.0) Mean Corpuscular Volume 96 FL (80-99) Mean Corpuscular Hemoglobin 30.4 PG (27.0-31.0) Mean Corpuscular Hemoglobin Concent 31.8 G/DL (32.0-36.0) Red Cell Distribution Width 15.1 % (11.6-14.8) Platelet Count 81 K/UL (150-450) Mean Platelet Volume 14.6 FL (6.5-10.1) Neutrophils (%) (Auto) % (45.0-75.0) Lymphocytes (%) (Auto) % (20.0-45.0) Monocytes (%) (Auto) % (1.0-10.0) Eosinophils (%) (Auto) % (0.0-3.0) Basophils (%) (Auto) % (0.0-2.0) Differential Total Cells Counted 100 Neutrophils % (Manual) 64 % (45-75) Lymphocytes % (Manual) 27 % (20-45) Monocytes % (Manual) 9 % (1-10) Eosinophils % (Manual) 0 % (0-3) Basophils % (Manual) 0 % (0-2) Band Neutrophils 0 % (0-8) Platelet Estimate Decreased Platelet Morphology Normal Anisocytosis 1+ Prothrombin Time 10.8 SEC (9.30-11.50) Prothromb Time International Ratio 1.0 (0.9-1.1) Activated Partial Thromboplast Time 36 SEC (23-33) Sodium Level 134 MMOL/L (136-145) Potassium Level 3.8 MMOL/L (3.5-5.1) Chloride Level 94 MMOL/L (98-107) Carbon Dioxide Level 25 MMOL/L (21-32) Anion Gap 16 mmol/L (5-15) Blood Urea Nitrogen 57 mg/dL (7-18) Creatinine 15.4 MG/DL (0.55-1.30) Estimat Glomerular Filtration Rate 2.9 mL/min (>60) Glucose Level 105 MG/DL (74-106) Lactic Acid Level 1.10 mmol/L (0.4-2.0) Calcium Level 8.2 MG/DL (8.5-10.1) Total Bilirubin 0.5 MG/DL (0.2-1.0) Aspartate Amino Transf (AST/SGOT) 29 U/L (15-37) Alanine Aminotransferase (ALT/SGPT) 20 U/L (12-78) Alkaline Phosphatase 293 U/L (46-116) Total Creatine Kinase 100 U/L (26-308) Creatine Kinase MB < 0.5 NG/ML (0.0-3.6) Creatine Kinase MB Relative Index 0.5 Troponin I 0.029 ng/mL (0.000-0.056) Pro-B-Type Natriuretic Peptide 5143 pg/mL (0-125) Total Protein 8.6 G/DL (6.4-8.2) Albumin 3.0 G/DL (3.4-5.0) Globulin 5.6 g/dL Albumin/Globulin Ratio 0.5 (1.0-2.7) EKG Diagnostic Results Rate: normal Rhythm: NSR ST Segments: no acute changes ASA given to the pt in ED: No Rhythm Strip Diag. Results EP Interpretation: yes Rhythm: NSR, no PVC's, no ectopy Chest X-Ray Diagnostic Results Chest X-Ray Diagnostic Results : Chest X-Ray Ordered: Yes # of Views/Limited/Complete: 1 View Indication: Other - cough EP Interpretation: Yes Interpretation: no pneumothorax, other - new opacity in L lung Impression: Other - pneumonia Electronically Signed by: Electronically signed by Gordo Oquendo MD Last Vital Signs Date Time Temp Pulse Resp B/P (MAP) Pulse Ox O2 Delivery O2 Flow Rate FiO2 04/12/18 11:11 98.2 79 15 71/31 98 Room Air 04/12/18 11:11 98 Status: improved Disposition: ADMITTED INPATIENT Condition: Critical Referrals: Ash Henley MD (PCP) Gordo Oquendo MD Apr 12, 2018 11:44
--- NOTE | 2018-04-12 11:48 | NUR ---
ED Nurse Note: Blood and influenza swab has been collected. Sent to lab. Awaiting results.
[2018-04-12 12:01] LABS: HEMATOCRIT 36.4 % (37.0-47.0); HEMOGLOBIN 11.6 G/DL (12.0-16.0); MEAN CORPUSCULAR VOLUME 96 FL (80-99); PLATELET COUNT 81 K/UL (150-450); RED CELL DISTRIBUTION WIDTH 15.1 % (11.6-14.8); WHITE BLOOD COUNT 3.4 K/UL (4.8-10.8)
--- NOTE | 2018-04-12 12:07 | Diagnostic Imaging Report ---
INDICATION: Chest pain COMPARISON: Chest x-ray dated 03/29/18 FINDINGS: Single frontal view demonstrates a normal cardiomediastinal silhouette. Surgical clips in bilateral axilla. New opacity in the left mid to lower lung zone. No pleural effusions. The visualized osseous structures are within normal limits. IMPRESSION: Surgical clips in bilateral axilla with new opacity in the left mid to lower lung zone. Correlation can be obtained with CT for further evaluation.
[2018-04-12 12:12] LABS: ANION GAP 16 mmol/L (5-15); BLOOD UREA NITROGEN 57 mg/dL (7-18); CALCIUM 8.2 MG/DL (8.5-10.1); CARBON DIOXIDE 25 MMOL/L (21-32); CHLORIDE 94 MMOL/L (98-107); CREATININE 15.4 MG/DL (0.55-1.30); POTASSIUM 3.8 MMOL/L (3.5-5.1); SODIUM 134 MMOL/L (136-145)
[2018-04-12 12:41] LABS: ALANINE AMINOTRANSFERASE 20 U/L (12-78); ALBUMIN/GLOBULIN RATIO 0.5 (1.0-2.7); ALKALINE PHOSPHATASE 293 U/L (46-116); ASPARTATE AMINO TRANSFERASE 29 U/L (15-37); BILIRUBIN,TOTAL 0.5 MG/DL (0.2-1.0); CKMB < 0.5 NG/ML (0.0-3.6); CREATINE KINASE 100 U/L (26-308)
[2018-04-12] MEDS ORDERED: NS 250 ML IVPB ONE (12:45)
--- NOTE | 2018-04-12 12:56 | NUR ---
ED Nurse Note: Pt does not produce urine. Notified ERMD.
[2018-04-12] MEDS ORDERED: Midodrine 10mg tab ORAL ONE (13:00)
--- NOTE | 2018-04-12 13:20 | History & Physical ---
History and Physical History & Physicial Last 24 Hour Vital Signs Date Time Temp Pulse Resp B/P (MAP) Pulse Ox O2 Delivery O2 Flow Rate FiO2 04/12/18 12:30 18 99/75 99 04/12/18 11:40 16 102/80 04/12/18 11:11 98.2 79 15 71/31 98 Room Air 04/12/18 11:11 79 15 Room Air 98 04/12/18 11:01 98.2 79 12 53/42 99 Room Air Patient seen and examine in ED Job # Ash Henley MD Apr 12, 2018 13:20
--- NOTE | 2018-04-12 13:24 | NUR ---
ED Nurse Note: Gave telephone report to WILLI Gordillo.
--- NOTE | 2018-04-12 13:24 | NUR ---
ED Nurse Note: Waiting for packet from registry.
--- NOTE | 2018-04-12 13:27 | NUR ---
ED Nurse Note: Called pharmacy due to Vanco 1.5g being out of stock in [facility]x[place]. Pharmacy will make it.
[2018-04-12] MEDS ORDERED: Vancomycin 1.5gm/D5W Premix 250 ML IVPB ONE (13:30)
[2018-04-12] MEDS ORDERED: Ertapenem 1 GM in NS 55 ML IVPB ONE (13:30)
--- NOTE | 2018-04-12 13:40 | NUR ---
ED Nurse Note: As per ERMD, vanco has been cancelled and changed to invanz. Will administer after albumin.
--- NOTE | 2018-04-12 13:40 | NUR ---
Rashmi bynum in EDM - 04/12/18 at 1341 by RASHARD DAVINA Maloney Note: Eyad rosado
--- NOTE | 2018-04-12 13:41 | NUR ---
ED Nurse Note: Pt kya now be admited to SDU. Waiting for bed.
[2018-04-12] MEDS ORDERED: Lidocaine 1% MPF 10mg/ml 5ml ONE (14:44)
[2018-04-12] MEDS ORDERED: Lidocaine 1% MPF 10mg/ml 5ml INJ ONE (14:45)
--- NOTE | 2018-04-12 14:49 | NUR ---
ED Nurse Note: Consent has been signed for central line placement. Pt consented for brother to sign consent.
--- NOTE | 2018-04-12 15:24 | NUR ---
ED Nurse Note: Central line placement unsuccessful. Will continue to monitor.
--- NOTE | 2018-04-12 15:37 | NUR ---
dr solitario spoke to dr duranding the central line which he is unable to pass through the vein due to blockage also spoke to dr causey instructed to use the port from [facility] . acess has been done by dr solitario aspirated blood from the line per instruction of elmira and flushed with normal saline per his instruction . and also instructed to use the line for pressure infusion
[2018-04-12] MEDS ORDERED: DOPamine 400mg/250ml 250 ML IV ONE (15:38)
[2018-04-12] MEDS: DOPamine 400mg/250ml 250 ML IV SCH (15:46)
--- NOTE | 2018-04-12 15:49 | NUR ---
ED Nurse Note: Per JAIDEN, okay to access port-a-cath on right leg to administer Dopamine. Starting rate is 6mcg/kg/min. Starting BP is 69/51. Will recheck in 15mins.
--- NOTE | 2018-04-12 16:04 | NUR ---
ED Nurse Note: Last BP checked was 80/44. Increased dose rate to 8mcg/kg/min as per hospital policy. Will continue to monitor.
--- NOTE | 2018-04-12 16:39 | NUR ---
ED Nurse Note: Telephone report given to WILLI Hitchcock. Transferred pt up to ICU unit w/ electrical test technician. No acute distress noted. Pt left w/ all belongings.
--- NOTE | 2018-04-12 17:00 | NUR ---
NURSE NOTES: Pt received from Allen MÁRQUEZ. Pt awake, alert and oriented x4, able to make needs known. Pt able to walk from gurney to bed. Pt connected to invasive physician, SB in 50s. SBP in 110s/20s. Pt on 2 L O2 saturating 90s. Dopamine running in R permacath in femoral. R wrist 20 G noted and intact. SHUKRI AV fistula noted with positive bruit and thrill. Safety measures in place with bed locked and in lowest position, side rails x2 up and call light within reach. Will continue to monitor and continue plan of care.
[2018-04-12] MEDS ORDERED: Vancomycin 1gm/D5W 275ml IVPB SCH ×2 (18:00)
--- NOTE | 2018-04-12 19:19 | NUR ---
HAND-OFF: Report given to Aj MÁRQUEZ.
--- NOTE | 2018-04-12 19:30 | NUR ---
NURSE NOTES: Received report from WILLI Joel. Pt's awake, alert and oriented x4, able to make needs known, accompanied by her family member. Pt connected to potline monitor, HR 58, BP 101/29 Resp 30, O2 sat 97 with 2 L/NC. Dopamine drip running in Right femoral portacath at 8mcg/kg/min. Right wrist 20 G and right thumb 20G noted and intact. Left UA AV fistula noted with positive bruit and thrill. Pt's anuric, HD on M, W, F. Dr Conner will f/up tmorrow with HD scheduling. Safety measures in place with bed locked and in lowest position, side rails x2 up and call light within reach. Will continue to monitor and continue plan of care.
[2018-04-12] MEDS: Heparin 5000 units/ml inj SUBQ SCH (20:58)
--- NOTE | 2018-04-12 21:00 | NUR ---
NURSE NOTES: Pt's resting in bed, stated hungry, finished 1/4 ham sandwich with help from her relative, well tolerated. VS stable. HOB kept elevated. Will continue to monitor.
[2018-04-12] MEDS: Midodrine 10mg tab ORAL SCH (22:31)
--- NOTE | 2018-04-12 23:00 | NUR ---
NURSE NOTES: Pt's resting in bed, with eye closed. VS stable.Will continue to monitor.
[2018-04-13] VITALS (40 sets, daily range): BP systolic 76–122; BP diastolic 34–69
--- NOTE | 2018-04-13 01:00 | NUR ---
NURSE NOTES: Pt's resting in bed, in no acute distress, current Dopamine drip at 12mcg/kg/min. BP 84/35, HR 58, R 25, O2 96%. Will continue to monitor.
[2018-04-13] MEDS: DOPamine 400mg/250ml 250 ML IV SCH ×4 (01:25→22:25)
--- NOTE | 2018-04-13 01:30 | History and Physical Report ---
DATE OF ADMISSION: 04/12/2018 CHIEF COMPLAINT: Altered mental status and weakness. HISTORY OF PRESENT ILLNESS: This is a 53-year-old female with past medical history significant for end-stage renal disease, on hemodialysis; history of anemia of chronic kidney disease; ____; and morbid obesity who is presented to the hospital from home after was noted to be more altered than usual, feeling sick, and complained about feeling cold. No fever or chills. No chest pain or shortness of breath. She has had last dialysis past Wednesday, four days ago. The patient denies any fever or chills. Denies any dizziness. Occasional cough. The patient was noted to have low blood pressure upon arrival to the ER and triage room. Shortly after initial evaluation, the patient was noted to have systolic in 60s, and the patient was admitted to ICU with hypotension and sepsis, possible due to the pneumonia as well as altered mental status, most likely secondary to toxic metabolic encephalopathy as a result of altered mental status, infection. PAST MEDICAL HISTORY/PAST SURGICAL HISTORY: As above. History of end-stage renal disease, on hemodialysis on Wednesday, Wednesday, and Wednesday, last dialysis was past Wednesday; anemia of chronic kidney disease; hypertension; obesity; AV graft placement x5; cholecystectomy; parathyroidectomy; carpal tunnel syndrome; open reduction and internal fixation of the left elbow fracture; history of the right PermCath placement; and right upper extremity, upper thigh PermCath. MEDICATIONS AT HOME: Significant for Eliquis 2.5 b.i.d., Sensipar 30 mg three times a day, Advair one puff b.i.d., midodrine 20 mg twice a day, omeprazole 20 mg twice a day, Renvela 1600 three times a day with meal, Travatan five drops b.i.d., and Ambien 10 mg p.o. p.r.n. for insomnia. ALLERGIES: Ancef, ciprofloxacin, gentamicin, Levaquin, penicillin, and ketamine. SOCIAL HISTORY: The patient is single, disabled, lives alone. No smoking, alcohol, or drugs. FAMILY HISTORY: Noncontributory. REVIEW OF SYSTEMS: Mostly as above. Denies any dysuria or frequency. Denies any hematuria. Denies any hemoptysis. Denies any bright red blood per rectum. Complained about feeling cold. No chills. No nausea or vomiting. Occasional cough. Denies any double vision. PHYSICAL EXAMINATION: VITAL SIGNS: On admission from ER were significant for temperature 98.2, pulse of 79, respirations of 16, and blood pressure 153/42. GENERAL: The patient is awake, responsive, lethargic, and less communicative. HEAD AND NECK: Pupils equal and reactive to light. Extraocular movements intact. Neck was supple. No JVD. LUNGS: Good air entry. Poor respiratory effort. No wheeze or rhonchi. Decreased air in the bases. HEART: S1 and S2. Distant heart sounds. No murmur or gallop. ABDOMEN: Soft, nondistended, and nontender. Morbidly obese. EXTREMITIES: No cyanosis, clubbing, or edema. Right femoral area has PermCath noted as well as left upper extremity AV fistula, functional . NEUROLOGIC: Cranial nerves II through XII are grossly intact. The patient is moving all the extremities spontaneously. Gait was not assessed due to the patient's status. PSYCHIATRIC: Mood and affect are intact. RECTAL: Refused and deferred. GENITOURINARY: Refused and deferred. LABORATORY AND DIAGNOSTIC DATA: On admission from the ER is significant for PT of 10, INR 1.0, and PTT of 36. Sodium 134, potassium 3.8, chloride 94, bicarbonate is 25, BUN 57, creatinine is 15.4, GFR is 2.9, and glucose is 105. Lactic acid is 1.10. Calcium is 8.2. AST of 29, ALT of 20, and alkaline phosphatase 293. First troponin 0.029. ProBNP of 5143. Total protein is 8.6. Albumin is 2.0. WBC of 3.4, hemoglobin of 11, hematocrit 36, and platelets is 81. Chest x-ray was noted to be surgery clips on the bilateral axillary with new opacity in the left mid to lower lung zone, correlation can be obtained by CT for further evaluation. ASSESSMENT: 1. Sepsis, most likely secondary to pneumonia. 2. Hypotension, possible septic shock. 3. Pancytopenia with severe thrombocytopenia. 4. End-stage renal disease, on hemodialysis. 5. Altered mental status, most likely toxic metabolic encephalopathy as a result of infection as well as uremia. 6. Anemia of chronic kidney disease. 7. Morbid obesity. PLAN: Admit the patient to ICU. We will follow up laboratory. Discussed case with Dr. Fredrick Conner from Nephrology for emergent dialysis. Discussed with the family member, brother at the bedside. Due to the patient having multiple antibiotic allergies, we will consider to start the patient on ____ vancomycin. Code status is Full Code. DVT prophylaxis, heparin subcutaneous. Ash Henley M.D. DR: ABDIAZIZ JOB#: [id number] CC:
--- NOTE | 2018-04-13 03:00 | NUR ---
NURSE NOTES: Pt's resting in bed, in no acute distress. VS stable. Will continue to monitor.
--- NOTE | 2018-04-13 05:00 | NUR ---
NURSE NOTES: Pt's resting in bed, in no acute distress. VS stable. Will continue to monitor.
[2018-04-13 05:02] LABS: HEMATOCRIT 35.4 % (37.0-47.0); HEMOGLOBIN 11.6 G/DL (12.0-16.0); MEAN CORPUSCULAR VOLUME 95 FL (80-99); PLATELET COUNT 78 K/UL (150-450); RED BLOOD COUNT 3.71 M/UL (4.20-5.40); WHITE BLOOD COUNT 3.5 K/UL (4.8-10.8)
[2018-04-13 05:47] LABS: ALANINE AMINOTRANSFERASE 20 U/L (12-78); ALBUMIN 3.2 G/DL (3.4-5.0); ALBUMIN/GLOBULIN RATIO 0.6 (1.0-2.7); ALKALINE PHOSPHATASE 280 U/L (46-116); ANION GAP 19 mmol/L (5-15); ASPARTATE AMINO TRANSFERASE 27 U/L (15-37); BILIRUBIN,TOTAL 0.5 MG/DL (0.2-1.0); BLOOD UREA NITROGEN 61 mg/dL (7-18); CALCIUM 7.9 MG/DL (8.5-10.1); CARBON DIOXIDE 20 MMOL/L (21-32); CHLORIDE 93 MMOL/L (98-107); CREATININE 16.1 MG/DL (0.55-1.30); POTASSIUM 4.7 MMOL/L (3.5-5.1); SODIUM 132 MMOL/L (136-145)
[2018-04-13] MEDS: Midodrine 10mg tab ORAL SCH ×3 (06:19→21:50)
--- NOTE | 2018-04-13 07:06 | NUR ---
HAND-OFF: Report given to WILLI Joel.
--- NOTE | 2018-04-13 07:32 | NUR ---
NURSE NOTES: Pt received from Aj RN. Pt awake, alert and oriented x4, able to make needs known. Pt resting comfortably in bed, denies pain or discomfort. Pt connected to cardiac specialist, SB in 50s. SBP in 110s/20s. Pt on 2 L O2 saturating 90s. Dopamine running in R permacath in femoral at 12 mcg/kg/min. R wrist 20 G noted and intact. SHUKRI AV fistula noted with positive bruit and thrill. Safety measures in place with bed locked and in lowest position, side rails x2 up and call light within reach. Will continue to monitor and continue plan of care.
[2018-04-13] MEDS: Heparin 5000 units/ml inj SUBQ SCH ×2 (08:02→20:27)
[2018-04-13] MEDS ORDERED: Sensipar 30mg Tab ORAL SCH (09:00)
--- NOTE | 2018-04-13 09:05 | NUR ---
RADIOLOGY DEPT CHEST X-RAY DONE.-P.DYE
--- NOTE | 2018-04-13 09:08 | NUR ---
NURSE NOTES: Spoke to Kaylyn MÁRQUEZ from Dialysis. Pt ordered to have dialysis today.
[2018-04-13 09:34] LABS: CHOLESTEROL 171 MG/DL (< 200); HDL CHOLESTEROL 51 MG/DL (40-60); PHOSPHORUS 4.8 MG/DL (2.5-4.9); TRIGLYCERIDES 242 MG/DL (30-150)
[2018-04-13] MEDS ORDERED: Vancomycin 1gm in D5W 275ml IVPB SCH (10:00)
--- NOTE | 2018-04-13 11:29 | NUR ---
NURSE NOTES: Dr Conner here to see pt. No new orders. No acute distress. Will continue to monitor.
--- NOTE | 2018-04-13 11:59 | NUR ---
CASE MANAGEMENT: REVIEW 53/F BIBA FROM HOME CC: FEELING WEAK AND SICK SI: ESRD ON HD . PNA T 98.2 HR 79 RR 12 BP 53/42 SAT 99% ROOM AIR WBC 3.4 H/H 11.6/36.4 NA 134 BUN 57 CR 15.4 IS: NS IVF BOLUS X1 MIDODRINE PO X1 ALBUMIN IV X1 VANCO IV X1 INTERQUAL CRITERIA MET: PATIENT ADMITTED TO ICU 04/12/2018 DCP: PATIENT IS FROM HOME
--- NOTE | 2018-04-13 12:02 | Diagnostic Imaging Report ---
Indication: Chest pain, shortness of breath Technique: XRAY Chest 1v Comparison: 04/12/2018 Findings: Heart size and mediastinal contours stable. The femoral approach dialysis catheter is again noted. Multiple surgical clips noted in the bilateral axilla. Portions of a stent again visualized in the right axilla. There is increasing opacity in the left midlung peripherally. No evidence of pneumothorax. There is patchy opacity at the right base. Osseous structures stable. Impression: Increasing left-sided airspace opacities. Findings likely related to pneumonia. Clinical correlation/follow-up recommended.
--- NOTE | 2018-04-13 12:25 | Consultation ---
Consult Note Consult Note asked to eval for dialysis management- known to me from her recent admission- HPI 53-year-old female presents ED for evaluation. Patient states that she is feeling weak and "sick". Denies fevers or chills. Denies chest pain or shortness of breath. History of end-stage renal disease. States that she missed her last dialysis session because she didn't feel well. Blood pressure low in triage. Patient normally has low blood pressure but states this is lower than usual. Denies any dizziness. Denies cough. No other aggravating relieving factors. Denies any other associated symptoms Allergies: Coded Allergies: CEFAZOLIN (Verified Allergy, Unknown, 10/02/10) CIPROFLOXACIN (Verified Allergy, Unknown, 10/02/10) GENTAMICIN (Verified Allergy, Unknown, 10/02/10) KETAMINE (Verified Allergy, Unknown, 03/29/18) LEVOFLOXACIN (Verified Allergy, Unknown, 10/02/10) PENICILLINS (Verified Allergy, Unknown, ITCH, 10/02/10) Uncoded Allergies: CONTRAST MEDIA (Adverse Reaction, Mild, MILD ITCHING AFTER CONTRAST MEDIA, 04/30/17) Past Medical History: No History, Except For Hx Cardiac Problems: Yes - hypotension Hx Gastrointestinal Problems: Yes Hx Dialysis: Yes - right leg fistula examined in icu data reviewed encephalopatic Assessment/Plan ESRD on HD HypoThyroidism Periodic Hypotension encephalopathic , metabolic HD today per orders midodrine per consultants Fredrick Conner MD Apr 13, 2018 12:25
--- NOTE | 2018-04-13 12:30 | NUR ---
NURSE NOTES: Dialysis started. Dopamine increased to 20 mcg because sbp went down to 80s. Sbp currently in the 110s. Will continue to monitor.
--- NOTE | 2018-04-13 12:55 | Infectious Diseases Prog Note ---
Assessment/Plan Assessment/Plan Full consult dictated: A) 1) possible sepsis/shock, possible pna 2) pmh noted 3) multiple drug allergies noted P) 1) vancomycin, meropenem, azithromycin 2) check sputum cultures, blood cultures, labs 3) orders entered and noted 4) thank you Subjective Allergies: Coded Allergies: CEFAZOLIN (Verified Allergy, Unknown, 10/02/10) CIPROFLOXACIN (Verified Allergy, Unknown, 10/02/10) GENTAMICIN (Verified Allergy, Unknown, 10/02/10) KETAMINE (Verified Allergy, Unknown, 03/29/18) LEVOFLOXACIN (Verified Allergy, Unknown, 10/02/10) PENICILLINS (Verified Allergy, Unknown, ITCH, 10/02/10) Uncoded Allergies: CONTRAST MEDIA (Adverse Reaction, Mild, MILD ITCHING AFTER CONTRAST MEDIA, 04/30/17) Objective Vital Signs Last 24 Hour Vital Signs Date Time Temp Pulse Resp B/P (MAP) Pulse Ox O2 Delivery O2 Flow Rate FiO2 04/13/18 12:30 54 24 101/50 (67) 97 04/13/18 12:00 2.0 04/13/18 12:00 Nasal Cannula 2.0 04/13/18 12:00 98.0 61 23 101/49 (66) 94 04/13/18 11:00 54 29 105/50 (68) 95 04/13/18 10:00 61 22 107/50 (69) 87 04/13/18 09:00 73 23 107/54 (71) 94 04/13/18 08:57 107/55 04/13/18 08:00 97.8 53 25 88/69 (75) 91 04/13/18 08:00 2.0 04/13/18 08:00 Nasal Cannula 2.0 04/13/18 08:00 107/55 04/13/18 08:00 53 04/13/18 07:00 56 24 100/50 (67) 96 04/13/18 07:00 54 28 101/52 (68) 93 04/13/18 06:00 99/48 04/13/18 06:00 54 28 100/50 (67) 93 04/13/18 05:30 56 16 101/52 (68) 93 04/13/18 05:00 92/58 04/13/18 05:00 60 23 92/58 (69) 96 04/13/18 04:30 98.3 55 20 102/56 (71) 96 04/13/18 04:00 98.3 54 26 101/49 (66) 100 04/13/18 04:00 Nasal Cannula 2.0 04/13/18 04:00 53 04/13/18 04:00 102/56 04/13/18 04:00 2.0 04/13/18 03:30 55 26 97/49 (65) 98 04/13/18 03:00 59 26 104/52 (69) 96 04/13/18 03:00 104/52 04/13/18 02:30 56 29 100/49 (66) 97 04/13/18 02:00 56 29 103/49 (67) 97 04/13/18 02:00 103/49 04/13/18 01:30 55 29 102/49 (66) 96 04/13/18 01:25 84/35 04/13/18 01:00 102/49 04/13/18 01:00 58 25 84/35 (51) 96 04/13/18 00:30 98.1 58 30 97/53 (68) 97 04/13/18 00:00 2.0 04/13/18 00:00 57 33 103/48 (66) 98 04/13/18 00:00 103/48 04/13/18 00:00 Nasal Cannula 2.0 04/13/18 00:00 59 04/12/18 23:30 55 30 98/45 (62) 95 04/12/18 23:30 98/45 04/12/18 23:00 65 21 101/50 (67) 95 04/12/18 23:00 101/50 04/12/18 22:30 64 29 109/42 (64) 97 04/12/18 22:00 105/51 04/12/18 22:00 63 29 105/51 (69) 98 04/12/18 21:30 64 28 108/50 (69) 96 04/12/18 21:00 98.9 64 27 100/50 (67) 98 04/12/18 21:00 106/53 04/12/18 20:30 51 30 92/27 (48) 96 04/12/18 20:00 55 18 84/35 (51) 97 04/12/18 20:00 84/35 04/12/18 20:00 64 04/12/18 20:00 Nasal Cannula 2.0 04/12/18 20:00 2.0 04/12/18 19:00 101/29 04/12/18 18:57 59 17 101/29 (53) 96 04/12/18 18:30 56 28 115/27 (56) 97 04/12/18 17:59 99.3 62 25 106/43 (64) 92 04/12/18 17:09 Nasal Cannula 2.0 04/12/18 17:08 Nasal Cannula 2.0 04/12/18 17:00 99.3 62 25 106/43 (64) 92 04/12/18 16:40 97.8 59 17 116/64 96 Room Air 04/12/18 16:01 80/44 04/12/18 15:46 69/51 04/12/18 14:11 97.5 59 16 73/30 97 Room Air Height (Feet): 5 Height (Inches): 6.00 Weight (Pounds): 200 Microbiology Date/Time Source Procedure Growth Status 04/12/18 11:35 Nasal Nares Influenza Types A,B Antigen (DORON) - Final Complete Laboratory Tests Test 04/13/18 04:20 White Blood Count 3.5 K/UL (4.8-10.8) L Red Blood Count 3.71 M/UL (4.20-5.40) L Hemoglobin 11.6 G/DL (12.0-16.0) L Hematocrit 35.4 % (37.0-47.0) L Mean Corpuscular Volume 95 FL (80-99) Mean Corpuscular Hemoglobin 31.4 PG (27.0-31.0) H Mean Corpuscular Hemoglobin Concent 32.9 G/DL (32.0-36.0) Red Cell Distribution Width 15.0 % (11.6-14.8) H Platelet Count 78 K/UL (150-450) L Mean Platelet Volume 10.4 FL (6.5-10.1) H Neutrophils (%) (Auto) % (45.0-75.0) Lymphocytes (%) (Auto) % (20.0-45.0) Monocytes (%) (Auto) % (1.0-10.0) Eosinophils (%) (Auto) % (0.0-3.0) Basophils (%) (Auto) % (0.0-2.0) Sodium Level 132 MMOL/L (136-145) L Potassium Level 4.7 MMOL/L (3.5-5.1) Chloride Level 93 MMOL/L (98-107) L Carbon Dioxide Level 20 MMOL/L (21-32) L Anion Gap 19 mmol/L (5-15) H Blood Urea Nitrogen 61 mg/dL (7-18) H Creatinine 16.1 MG/DL (0.55-1.30) H Estimat Glomerular Filtration Rate 2.9 mL/min (>60) Glucose Level 123 MG/DL (74-106) H Hemoglobin A1c 6.0 % (4.3-6.0) Uric Acid 7.2 MG/DL (2.6-7.2) Calcium Level 7.9 MG/DL (8.5-10.1) L Phosphorus Level 4.8 MG/DL (2.5-4.9) Total Bilirubin 0.5 MG/DL (0.2-1.0) Aspartate Amino Transf (AST/SGOT) 27 U/L (15-37) Alanine Aminotransferase (ALT/SGPT) 20 U/L (12-78) Alkaline Phosphatase 280 U/L (46-116) H Total Protein 8.2 G/DL (6.4-8.2) Albumin 3.2 G/DL (3.4-5.0) L Globulin 5.0 g/dL Albumin/Globulin Ratio 0.6 (1.0-2.7) L Triglycerides Level 242 MG/DL (30-150) H Cholesterol Level 171 MG/DL (< 200) LDL Cholesterol 79 mg/dL (<100) HDL Cholesterol 51 MG/DL (40-60) Cholesterol/HDL Ratio 3.4 (3.3-4.4) Thyroid Stimulating Hormone (TSH) Pending Random Vancomycin Level 15.6 ug/mL Current Medications Medications (Trade) Dose Ordered Sig/Marcos Route PRN Reason Start Time Stop Time Status Last Admin Dose Admin Acetaminophen (Tylenol) 650 mg Q6H PRN ORAL Mild Pain/Temp > 100.5 04/12/18 17:45 05/12/18 17:44 Chlorhexidine Gluconate (Nivia-Hex 2%) 1 applic DAILY@1999 TOPIC 04/13/18 20:00 1/25/19 19:59 Diphenhydramine HCl (Benadryl) 50 mg ONCE PRN ORAL 30 MIN PRIOR TO HD 04/13/18 09:30 04/13/18 23:59 Dopamine HCl/ Dextrose 250 ml @ 0 mls/hr Q24H IV 04/12/18 15:45 05/12/18 15:44 04/13/18 08:57 Heparin Sodium (Porcine) (Heparin 5000 units/ml) 5,000 units EVERY 12 HOURS SUBQ 04/12/18 21:00 05/12/18 20:59 Meropenem 500 mg/ Sodium Chloride 50 ml @ 100 mls/hr Q24HRS IVPB 04/13/18 14:00 04/18/18 13:59 Midodrine (Pro-Amatine) 10 mg Q8HR ORAL 04/12/18 22:00 05/12/18 21:59 04/13/18 06:19 Ondansetron HCl (Zofran) 4 mg Q4H PRN IVP Nausea & Vomiting 04/12/18 17:45 05/12/18 17:44 04/12/18 23:00 Pantoprazole (Protonix) 40 mg BID ORAL 04/12/18 18:00 05/12/18 17:59 04/13/18 08:10 Sevelamer Carbonate (Renvela) 1,600 mg THREE TIMES A DAY ORAL 04/13/18 09:00 05/13/18 08:59 04/13/18 08:11 Vancomycin HCl (Vanco rx to dose) 1 ea DAILY PRN MISC Per rx protocol 04/12/18 17:45 05/12/18 17:44 Zolpidem Tartrate (Ambien) 5 mg QHS PRN ORAL INSOMNIA 04/12/18 23:15 04/19/18 23:14 Edgardo Mcbride MD Apr 13, 2018 12:55
[2018-04-13] MEDS ORDERED: Azithromycin 250mg tab ORAL SCH (13:00)
[2018-04-13] MEDS ORDERED: Tubing IV Secondary IV ONE (14:42)
[2018-04-13] MEDS ORDERED: NS 275ml ONE (14:42)
--- NOTE | 2018-04-13 14:54 | Internal Med Progress Note ---
Subjective Physician Name Ash Henley Attending Physician Ash Henley MD Current Medications Medications (Trade) Dose Ordered Sig/Marcos Route PRN Reason Start Time Stop Time Status Last Admin Dose Admin Acetaminophen (Tylenol) 650 mg Q6H PRN ORAL Mild Pain/Temp > 100.5 04/12/18 17:45 05/12/18 17:44 Azithromycin (Zithromax) 250 mg DAILY ORAL 04/14/18 09:00 04/21/18 08:59 Chlorhexidine Gluconate (Nivia-Hex 2%) 1 applic DAILY@2000 TOPIC 04/13/18 20:00 05/13/18 19:59 Diphenhydramine HCl (Benadryl) 50 mg ONCE PRN ORAL 30 MIN PRIOR TO HD 04/13/18 09:30 04/13/18 23:59 Dopamine HCl/ Dextrose 250 ml @ 0 mls/hr Q24H IV 04/12/18 15:45 05/12/18 15:44 04/13/18 08:57 Heparin Sodium (Porcine) (Heparin 5000 units/ml) 5,000 units EVERY 12 HOURS SUBQ 04/12/18 21:00 05/12/18 20:59 Meropenem 500 mg/ Sodium Chloride 50 ml @ 100 mls/hr Q24HRS IVPB 04/13/18 14:00 04/18/18 13:59 Midodrine (Pro-Amatine) 10 mg Q8HR ORAL 04/12/18 22:00 05/12/18 21:59 04/13/18 06:19 Ondansetron HCl (Zofran) 4 mg Q4H PRN IVP Nausea & Vomiting 04/12/18 17:45 05/12/18 17:44 04/12/18 23:00 Pantoprazole (Protonix) 40 mg BID ORAL 04/12/18 18:00 05/12/18 17:59 04/13/18 08:10 Sevelamer Carbonate (Renvela) 1,600 mg THREE TIMES A DAY ORAL 04/13/18 09:00 05/13/18 08:59 04/13/18 08:11 Vancomycin HCl (Vanco rx to dose) 1 ea DAILY PRN MISC Per rx protocol 04/12/18 17:45 05/12/18 17:44 Zolpidem Tartrate (Ambien) 5 mg QHS PRN ORAL INSOMNIA 12/25/18 23:15 04/19/18 23:14 Allergies: Coded Allergies: CEFAZOLIN (Verified Allergy, Unknown, 10/02/10) CIPROFLOXACIN (Verified Allergy, Unknown, 10/02/10) GENTAMICIN (Verified Allergy, Unknown, 10/02/10) KETAMINE (Verified Allergy, Unknown, 03/29/18) LEVOFLOXACIN (Verified Allergy, Unknown, 10/02/10) PENICILLINS (Verified Allergy, Unknown, ITCH, 10/02/10) Uncoded Allergies: CONTRAST MEDIA (Adverse Reaction, Mild, MILD ITCHING AFTER CONTRAST MEDIA, 04/30/17) Subjective awake, alert, responsive, feeling better, under dialysis now, BP 114/59 Objective Last Vital Signs Date Time Temp Pulse Resp B/P (MAP) Pulse Ox O2 Delivery O2 Flow Rate FiO2 04/13/18 14:00 83 22 114/59 (77) 94 04/13/18 13:19 Nasal Cannula 04/13/18 12:00 2.0 04/13/18 12:00 98.0 04/12/18 11:11 98 Laboratory Tests Test 04/13/18 04:20 04/13/18 12:58 White Blood Count 3.5 K/UL (4.8-10.8) L Red Blood Count 3.71 M/UL (4.20-5.40) L Hemoglobin 11.6 G/DL (12.0-16.0) L Hematocrit 35.4 % (37.0-47.0) L Mean Corpuscular Volume 95 FL (80-99) Mean Corpuscular Hemoglobin 31.4 PG (27.0-31.0) H Mean Corpuscular Hemoglobin Concent 32.9 G/DL (32.0-36.0) Red Cell Distribution Width 15.0 % (11.6-14.8) H Platelet Count 78 K/UL (150-450) L Mean Platelet Volume 10.4 FL (6.5-10.1) H Neutrophils (%) (Auto) % (45.0-75.0) Lymphocytes (%) (Auto) % (20.0-45.0) Monocytes (%) (Auto) % (1.0-10.0) Eosinophils (%) (Auto) % (0.0-3.0) Basophils (%) (Auto) % (0.0-2.0) Sodium Level 132 MMOL/L (136-145) L Potassium Level 4.7 MMOL/L (3.5-5.1) Chloride Level 93 MMOL/L (98-107) L Carbon Dioxide Level 20 MMOL/L (21-32) L Anion Gap 19 mmol/L (5-15) H Blood Urea Nitrogen 61 mg/dL (7-18) H Creatinine 16.1 MG/DL (0.55-1.30) H Estimat Glomerular Filtration Rate 2.9 mL/min (>60) Glucose Level 123 MG/DL (74-106) H Hemoglobin A1c 6.0 % (4.3-6.0) Uric Acid 7.2 MG/DL (2.6-7.2) Calcium Level 7.9 MG/DL (8.5-10.1) L Phosphorus Level 4.8 MG/DL (2.5-4.9) Total Bilirubin 0.5 MG/DL (0.2-1.0) Aspartate Amino Transf (AST/SGOT) 27 U/L (15-37) Alanine Aminotransferase (ALT/SGPT) 20 U/L (12-78) Alkaline Phosphatase 280 U/L (46-116) H C-Reactive Protein, Quantitative 10.1 mg/dL (0.00-0.90) H Total Protein 8.2 G/DL (6.4-8.2) Albumin 3.2 G/DL (3.4-5.0) L Globulin 5.0 g/dL Albumin/Globulin Ratio 0.6 (1.0-2.7) L Triglycerides Level 242 MG/DL (30-150) H Cholesterol Level 171 MG/DL (< 200) LDL Cholesterol 79 mg/dL (<100) HDL Cholesterol 51 MG/DL (40-60) Cholesterol/HDL Ratio 3.4 (3.3-4.4) Thyroid Stimulating Hormone (TSH) 0.078 uiU/mL (0.358-3.740) Random Vancomycin Level 15.6 ug/mL Mycoplasma pneumoniae IgG Antibody Pending Mycoplasma pneumoniae IgM Ab Titer Pending Microbiology Date/Time Source Procedure Growth Status 04/12/18 11:35 Nasal Nares Influenza Types A,B Antigen (DORON) - Final Complete Intake and Output 04/12/18 04/13/18 19:00 07:00 Intake Total 1065.319 ml 441.909 ml Output Total 0 ml Balance 1065.319 ml 441.909 ml Intake Oral 50 ml IV Total 1065.319 ml 391.909 ml Output Urine Total 0 ml Objective GENERAL: Awake, responsive, alert HEAD AND NECK: Pupils equal and reactive to light. Extraocular movements intact. Neck was supple. No JVD. LUNGS: Fair air entry. Poor respiratory effort. No wheeze or rhonchi. Decreased air in the bases. HEART: S1 and S2. Distant heart sounds. No murmur or gallop. ABDOMEN: Soft, nondistended, and nontender. Morbidly obese. EXTREMITIES: No cyanosis, clubbing, or edema. Right femoral area has PermCath noted as well as left upper extremity AV fistula, functional. NEUROLOGIC: Cranial nerves II through XII are grossly intact. The patient is moving all the extremities spontaneously. Gait was not assessed due to the patient's status. PSYCHIATRIC: Mood and affect are intact. RECTAL: Refused and deferred. GENITOURINARY: Refused and deferred. Assessment/Plan Assessment/Plan 1. Sepsis, most likely secondary to pneumonia. 2. Hypotension, possible septic shock. 3. Pancytopenia with severe thrombocytopenia. 4. End-stage renal disease, on hemodialysis. 5. Altered mental status, most likely toxic metabolic encephalopathy as a result of infection as well as uremia. 6. Anemia of chronic kidney disease. 7. Morbid obesity. PLAN: In ICU. follow up laboratory and cultures. Dr. Fredrick Conner from Nephrology consult Dr. Mcbride from ID consult. Discussed with the family member, brother at the bedside. Abx: Vancomycin, Meropenem, Azithromycin Code status is Full Code. DVT prophylaxis: heparin subcutaneous. Wean off Dopamine Drip Herman Arzola Payam MD Apr 13, 2018 14:54
[2018-04-13] MEDS ORDERED: Ertapenem 0.5 GM in NS 55 ML IVPB SCH (15:00)
--- NOTE | 2018-04-13 15:30 | NUR ---
NURSE NOTES: Pt feeling nauseated. Given zofran IV. Will continue to monitor.
--- NOTE | 2018-04-13 18:30 | Consultation ---
DATE OF CONSULTATION: 04/13/2018 INFECTIOUS DISEASES CONSULTATION CONSULTING PHYSICIAN: Edgardo Mcbride M.D. ATTENDING PHYSICIAN: Ash Henley M.D. REFERRING PHYSICIAN: Ash Henley M.D. REASON FOR CONSULTATION: Possible septic shock and pneumonia. CHIEF COMPLAINT: The patient's chief complaint coming into hospital is hypotension, renal failure, need for dialysis. HISTORY OF PRESENT ILLNESS: This is a very pleasant 53-year-old female, who comes into [facility] and was noted that she has altered mental status it looks like and feeling weak and sick. The patient was hypotensive and now is in the ICU requiring pressors. Chest x-ray shows what looks like possible pneumonia. She had no significant secretions but occasional cough. She also looks like she needed dialysis. Because of the low blood pressure and possibility of sepsis and shock, Infectious Diseases consultation requested and also possibility of pneumonia. The patient is currently on ertapenem and vancomycin. She has multiple drug allergies but seems tolerated to ertapenem. I will change her to meropenem and vancomycin and in addition azithromycin to cover community-acquired pneumonia. Because of her dialysis status, she certainly at risk for healthcare-acquired pneumonia and if she had altered mental status certainly could have had aspiration pneumonia. MAR was noted. Orders were noted. Notes were reviewed. Case discussed with the patient, the patient's family, RN and dialysis nurse. REVIEW OF SYSTEMS: CONSTITUTIONAL: The patient has generalized fatigue but actually at this time is alert and responsive, seems to be oriented. She came in with what looks like possible altered mental status per the records. . Otherwise she has no fever or chills. She has low blood pressure. No weight loss or night sweats. HEAD AND NECK: Head and pain, no head pain or neck pain. No thrush or dysphagia. CARDIAC: No chest pain. GASTROINTESTINAL: No nausea, vomiting, abdominal pain, diarrhea. GENITOURINARY: She does not have a Gaviria. She is a hemodialysis patient. PULMONARY: Mild cough. No significant congestion, shortness of breath, hemoptysis, or secretions. SKIN: No rash or itching. EXTREMITIES: No extremity pain. In regards to her line, she has a left arm graft but she also has a right femoral hemodialysis line. NEUROLOGIC: No seizures. PAST MEDICAL HISTORY: The patient's past medical history includes history of following: The patient has history of end-stage renal disease on hemodialysis. She has history of chronic kidney disease. Hypertension obesity, AV graft placement, history of cholecystectomy, parathyroidectomy, history carpal tunnel syndrome, ORIF, history of fractures, history of PermCath in the right groin and also history PermCath in other areas including upper extremity. There is no history of diabetes mentioned. She has history of anemia also likely of chronic disease. History of right leg fistula in the past. MEDICATIONS: Upon reviewing the MAR, she is on the following medications. I put her on azithromycin, meropenem, vancomycin. She was given ertapenem which she tolerated. She is on chlorhexidine. She is on diphenhydramine. She is on Renvela. She is on zolpidem, midodrine, heparin, pantoprazole, vancomycin, meropenem, Zofran, acetaminophen, dopamine. Outside medications were noted and reconciliated. ALLERGIES: Include cefazolin, Cipro, contrast media, gentamicin, ketamine, Levaquin, and penicillin. She seems to tolerate ertapenem and it looks like she was given a dose without any issues upon reviewing the MAR. FAMILY HISTORY: Noncontributory. Negative for tuberculosis or cancer. SOCIAL HISTORY: Negative for smoking, alcohol, or drug abuse currently. PHYSICAL EXAMINATION: VITAL SIGNS: Temperature is 98, pulse rate 54, respiratory 24, blood pressure 101/57, O2 saturation 97%. She is on 14 mcg of pressors at this time. GENERAL: Alert and responsive. Seems to be oriented at this time. HEAD AND NECK: Oral exam, no thrush. Eye exam, no icterus. Neck is supple. No JVD. Normocephalic. No icterus or thrush. HEART: Regular. No obvious gallop or rub. ABDOMEN: Soft. Positive bowel sounds. Nontender. LUNGS: Few bilateral rhonchi and rales. SKIN: No rash. MUSCULOSKELETAL: No effusion. Legs are without cellulitis. PERIPHERAL VASCULAR: No cyanosis or gangrene. GENITOURINARY: No Gaviria. No CVA tenderness. LINE SITES: Without phlebitis. Left arm fistula site without any cellulitis. Right groin, she has a right groin hemodialysis line. NEUROLOGIC: Intact. Nonfocal. She is alert and responsive. LABORATORY AND DIAGNOSTIC DATA: Laboratory data as follows. White count 3.5, hemoglobin 11.6, platelet count 78. Creatinine is 16.1. LFTs were noted. Cultures are pending. Influenza screen is negative. Chest x-ray shows right side air space disease which are suggestive of pneumonia per the report. ASSESSMENT: 1. The patient has what looks like possible sepsis shock. She has a low blood pressure. She certainly is at risk for line infection but also she has what looks like pneumonia. Most likely, this is a community-acquired pneumonia. She lives at home. However because she is a hemodialysis patient she could have healthcare-acquired pneumonia. Also in addition to her altered mental status coming in she could have aspirated. Continue azithromycin, meropenem, and vancomycin for community-acquired pneumonia treatment and sepsis shock. If blood cultures are positive, the patient's right femoral line likely needed to be removed. Continue vancomycin and meropenem, azithromycin to cover sepsis shock and pneumonia. Pending workup. The patient also of note is leukopenic with thrombocytopenia. Monitor chest x-ray, cultures and labs. With regard to meropenem, vancomycin, and azithromycin she has atypical coverage for pneumonia and also MRSA and gram-negative coverage. 2. End-stage renal disease, hemodialysis, has a right femoral line hemodialysis line and also left arm graft. 3. History of fistula in the past. 4. History of PermCath in the past 5. Anemia of chronic disease. 6. Hypertension - Blood pressure treatment per primary. 7. No history of diabetes mentioned. 8. Chronic kidney disease. 9. Obesity. 10. History of cholecystectomy. 11. History of parathyroidectomy. 12. History of carpal tunnel syndrome. 13. History of fractures, ORIF. 14. Past medical history noted. 15. Multiple drug allergies including cefazolin, Cipro, contrast media, gentamicin, ketamine, Levaquin and penicillin, she seems to tolerate carbapenems. 16. Social history is negative . 17. Family history is noncontributory. 18. MAR was noted. 19. Case discussed with RN. 20. Continue treatment per primary consultants. 21. Notes were noted and orders were entered. Edgardo Mcbride M.D. DR: Alex JOB#: [id number] CC: KAVEH
--- NOTE | 2018-04-13 18:57 | NUR ---
NURSE NOTES: Pt had small BM in bedside commode. Will continue to monitor.
--- NOTE | 2018-04-13 19:10 | NUR ---
HAND-OFF: Report given to Aj MÁRQUEZ.
--- NOTE | 2018-04-13 19:30 | NUR ---
NURSE NOTES: Received report from WILLI Joel. Pt's awake, alert and oriented x4, able to make needs known, accompanied by her family member. Pt connected to environmental monitoring specialist, HR 58, BP 101/50 Resp 19, O2 sat 97 with 2 L/NC. Dopamine drip running in Right femoral PermaCath at 14mcg/kg/min. HD done in the morning, well tolerated, no output. Right wrist 20 G and right thumb 20G noted and intact. Left UA AV fistula noted with positive bruit and thrill. Pt's anuric, HD on M, W, F. Safety measures in place with bed locked and in lowest position, side rails x2 up and call light within reach. Will continue to monitor and continue plan of care.
[2018-04-13] MEDS: Dyna-Hex 2% Top Sol 2oz TOPIC SCH (20:09)
--- NOTE | 2018-04-13 21:00 | NUR ---
NURSE NOTES: Pt's resting in bed, watching TV, in no acute distress. VS stable. Will continue to monitor.
--- NOTE | 2018-04-13 23:00 | NUR ---
NURSE NOTES: Pt's resting in bed, in no distress. VS stable. Will continue to monitor.
[2018-04-14] VITALS (36 sets, daily range): BP systolic 71–132; BP diastolic 14–71
--- NOTE | 2018-04-14 01:00 | NUR ---
NURSE NOTES: Pt's resting in bed, with eyes closed, in no distress. VS stable. Will continue to monitor.
--- NOTE | 2018-04-14 03:00 | NUR ---
NURSE NOTES: Pt's resting in bed, with eyes closed, in no distress. VS stable. Current Dopamine drip at 10mcg/kg/min. Will continue to monitor.
[2018-04-14 05:18] LABS: BASOPHILS % (AUTO) 0.8 % (0.0-2.0); EOSINOPHILS % (AUTO) 0.8 % (0.0-3.0); HEMOGLOBIN 11.6 G/DL (12.0-16.0); LYMPHOCYTES % (AUTO) 23.1 % (20.0-45.0); MEAN CORPUSCULAR VOLUME 94 FL (80-99); MONOCYTES % (AUTO) 5.8 % (1.0-10.0); NEUTROPHILS % (AUTO) 69.5 % (45.0-75.0); PLATELET COUNT 110 K/UL (150-450); RED BLOOD COUNT 3.73 M/UL (4.20-5.40); RED CELL DISTRIBUTION WIDTH 14.2 % (11.6-14.8); WHITE BLOOD COUNT 4.6 K/UL (4.8-10.8)
--- NOTE | 2018-04-14 05:25 | NUR ---
NURSE NOTES: Pt's resting in bed, Morning care done. VS stable. Will continue to monitor.
[2018-04-14 05:51] LABS: ALANINE AMINOTRANSFERASE 15 U/L (12-78); ALBUMIN 2.6 G/DL (3.4-5.0); ALBUMIN/GLOBULIN RATIO 0.5 (1.0-2.7); ALKALINE PHOSPHATASE 231 U/L (46-116); ANION GAP 13 mmol/L (5-15); ASPARTATE AMINO TRANSFERASE 21 U/L (15-37); BILIRUBIN,TOTAL 0.5 MG/DL (0.2-1.0); BLOOD UREA NITROGEN 36 mg/dL (7-18); CALCIUM 7.8 MG/DL (8.5-10.1); CARBON DIOXIDE 27 MMOL/L (21-32); CHLORIDE 93 MMOL/L (98-107); CREATININE 11.9 MG/DL (0.55-1.30); POTASSIUM 3.7 MMOL/L (3.5-5.1); SODIUM 133 MMOL/L (136-145)
[2018-04-14 05:53] LABS: PHOSPHORUS 3.9 MG/DL (2.5-4.9)
[2018-04-14] MEDS: Midodrine 10mg tab ORAL SCH ×3 (06:05→22:00)
[2018-04-14] MEDS: DOPamine 400mg/250ml 250 ML IV SCH ×3 (07:06→22:00)
--- NOTE | 2018-04-14 07:12 | NUR ---
HAND-OFF: Report given to WILLI Conway.
--- NOTE | 2018-04-14 07:35 | NUR ---
NURSE NOTES: Received report from Aj RN. Pt awake, alert and oriented x4, able to make needs known. opens eyes spontaneously. On monitor HR 51, BP135/44 RR 23, 02sat 92% 02L NC. bilateral radial and pedal pulses weak. RT ankle no edema. 4/5 strength upper and lower extremities. cap refill <3sec. abdomen round, non tender, bowel sounds active in all quadrants. appetite fair. Diet low K. pt wants breakfast tray later in day. will put aside. no BM. bedside commode in room. pt anuric, bladder flat. Dopamine running @10mcg/kg/hr to PermaCath femoral. RT wrist 20 G intact and patent. SHUKRI AV fistula noted, positive bruit and thrill. bed locked and in low position, side rails x2 up and call light within reach. education on plan of care for today. Will continue to monitor pt.
[2018-04-14] MEDS: Heparin 5000 units/ml inj SUBQ SCH ×2 (08:35→20:24)
[2018-04-14] MEDS ORDERED: Azithromycin 250mg tab ORAL SCH (09:00)
--- NOTE | 2018-04-14 09:16 | NUR ---
RADIOLOGY DEPT CHEST X-RAY DONE.-P.DYE
--- NOTE | 2018-04-14 09:45 | NUR ---
NURSE NOTES: TRANSPORT HERE TO TAKE PT FOR CT OF CHEST W/O CONTRAST. PT STABLE, NO C/O PAIN OR SOB.
--- NOTE | 2018-04-14 10:15 | NUR ---
NURSE NOTES: PT BACK ON UNIT, CONNECTED TO MONITOR. VSS. WILL SET UP TO EAT BREAKFAST. WILL CONTINUE TO MONITOR.
--- NOTE | 2018-04-14 10:35 | NUR ---
NURSE NOTES: MD ROSE HERE TO SEE PT.
--- NOTE | 2018-04-14 11:26 | NUR ---
NURSE NOTES: CALLED MD DESAI TO UPDATE ON TROPONIN OF 0.058H, ALREADY AWARE. NO NW ORDERS
--- NOTE | 2018-04-14 11:54 | Cardiology Report ---
APPROVED REPORT EKG Measurement Heart [id number] Sinus rhythm with occasional premature ventricular complexes Low voltage QRS T wave abnormality, consider anterior ischemia Abnormal ECG
--- NOTE | 2018-04-14 12:00 | NUR ---
NURSE NOTES: pt refused nasal suction to induce sputum for collection and in and out cath for urine sample. pt states no urine produced, no urine to remove, not necessary.
--- NOTE | 2018-04-14 12:07 | Diagnostic Imaging Report ---
Indication: Chest pain, shortness of breath Technique: XRAY Chest 1v Comparison: 04/13/2018 Findings: Heart size and mediastinal contours stable. Femoral approach dialysis catheter is again noted. Multiple surgical clips noted in the bilateral axilla. Portions of a stents again visualized in the right axilla. Multiple surgical clips noted in the right arm. [employer] opacities in the left midlung peripherally. No evidence of pneumothorax. There is patchy opacity at the right base. Osseous structures stable. Calcifications in the right breast noted. Impression: Left-sided airspace opacities most concerning for pneumonia. There is slight interval increased density compared to prior exam which may be technical.
--- NOTE | 2018-04-14 12:42 | NUR ---
NURSE NOTES: MD here to see pt. Recommend weaning off dopamine for SBP in 80's, pts baseline.
--- NOTE | 2018-04-14 12:48 | Internal Med Progress Note ---
Subjective Physician Name Ash Henley Attending Physician Ash Henley MD Current Medications Medications (Trade) Dose Ordered Sig/Marcos Route PRN Reason Start Time Stop Time Status Last Admin Dose Admin Acetaminophen (Tylenol) 650 mg Q6H PRN ORAL Mild Pain/Temp > 100.5 04/12/18 17:45 05/12/18 17:44 04/14/18 05:13 Azithromycin (Zithromax) 250 mg DAILY ORAL 04/14/18 09:00 04/21/18 08:59 04/14/18 08:27 Chlorhexidine Gluconate (Nivia-Hex 2%) 1 applic DAILY@2000 TOPIC 04/13/18 20:00 05/13/18 19:59 04/13/18 20:09 Dopamine HCl/ Dextrose 250 ml @ 0 mls/hr Q24H IV 04/12/18 15:45 05/12/18 15:44 04/14/18 07:06 Heparin Sodium (Porcine) (Heparin 5000 units/ml) 5,000 units EVERY 12 HOURS SUBQ 04/12/18 21:00 05/12/18 20:59 04/14/18 08:35 Meropenem 500 mg/ Sodium Chloride 50 ml @ 100 mls/hr Q24HRS IVPB 04/13/18 14:00 04/18/18 13:59 04/13/18 16:32 Midodrine (Pro-Amatine) 10 mg Q8HR ORAL 04/12/18 22:00 05/12/18 21:59 04/14/18 06:05 Ondansetron HCl (Zofran) 4 mg Q4H PRN IVP Nausea & Vomiting 04/12/18 17:45 05/12/18 17:44 04/13/18 15:35 Pantoprazole (Protonix) 40 mg BID ORAL 04/12/18 18:00 05/12/18 17:59 04/14/18 08:29 Sevelamer Carbonate (Renvela) 1,600 mg THREE TIMES A DAY ORAL 04/13/18 09:00 05/13/18 08:59 04/13/18 08:11 Vancomycin HCl (Vanco rx to dose) 1 ea DAILY PRN MISC Per rx protocol 04/12/18 17:45 05/12/18 17:44 Zolpidem Tartrate (Ambien) 5 mg QHS PRN ORAL INSOMNIA 04/12/18 23:15 04/19/18 23:14 Allergies: Coded Allergies: CEFAZOLIN (Verified Allergy, Unknown, 10/02/10) CIPROFLOXACIN (Verified Allergy, Unknown, 10/02/10) GENTAMICIN (Verified Allergy, Unknown, 10/02/10) KETAMINE (Verified Allergy, Unknown, 03/29/18) LEVOFLOXACIN (Verified Allergy, Unknown, 10/02/10) PENICILLINS (Verified Allergy, Unknown, ITCH, 10/02/10) Uncoded Allergies: CONTRAST MEDIA (Adverse Reaction, Mild, MILD ITCHING AFTER CONTRAST MEDIA, 04/30/17) Subjective awake, alert, responsive, feeling Okay, BP 109/36, HR 51, on Dopamine drip @ 6 mg, C/O a lot of dry cough. Objective Last Vital Signs Date Time Temp Pulse Resp B/P (MAP) Pulse Ox O2 Delivery O2 Flow Rate FiO2 04/14/18 11:00 47 22 120/41 (67) 94 04/14/18 09:00 97.7 04/14/18 08:00 Nasal Cannula 2.0 04/14/18 07:40 28 Laboratory Tests Test 04/13/18 12:58 04/14/18 04:25 Mycoplasma pneumoniae IgG Antibody Pending Mycoplasma pneumoniae IgM Ab Titer Pending White Blood Count 4.6 K/UL (4.8-10.8) L Red Blood Count 3.73 M/UL (4.20-5.40) L Hemoglobin 11.6 G/DL (12.0-16.0) L Hematocrit 35.0 % (37.0-47.0) L Mean Corpuscular Volume 94 FL (80-99) Mean Corpuscular Hemoglobin 31.2 PG (27.0-31.0) H Mean Corpuscular Hemoglobin Concent 33.3 G/DL (32.0-36.0) Red Cell Distribution Width 14.2 % (11.6-14.8) Platelet Count 110 K/UL (150-450) L Mean Platelet Volume 10.7 FL (6.5-10.1) H Neutrophils (%) (Auto) 69.5 % (45.0-75.0) Lymphocytes (%) (Auto) 23.1 % (20.0-45.0) Monocytes (%) (Auto) 5.8 % (1.0-10.0) Eosinophils (%) (Auto) 0.8 % (0.0-3.0) Basophils (%) (Auto) 0.8 % (0.0-2.0) Sodium Level 133 MMOL/L (136-145) L Potassium Level 3.7 MMOL/L (3.5-5.1) Chloride Level 93 MMOL/L (98-107) L Carbon Dioxide Level 27 MMOL/L (21-32) Anion Gap 13 mmol/L (5-15) Blood Urea Nitrogen 36 mg/dL (7-18) H Creatinine 11.9 MG/DL (0.55-1.30) H Estimat Glomerular Filtration Rate 4.0 mL/min (>60) Glucose Level 119 MG/DL (74-106) H Calcium Level 7.8 MG/DL (8.5-10.1) L Phosphorus Level 3.9 MG/DL (2.5-4.9) Magnesium Level 1.6 MG/DL (1.8-2.4) L Total Bilirubin 0.5 MG/DL (0.2-1.0) Aspartate Amino Transf (AST/SGOT) 21 U/L (15-37) Alanine Aminotransferase (ALT/SGPT) 15 U/L (12-78) Alkaline Phosphatase 231 U/L (46-116) H Troponin I 0.058 ng/mL (0.000-0.056) Pro-B-Type Natriuretic Peptide 9287 pg/mL (0-125) H Total Protein 8.1 G/DL (6.4-8.2) Albumin 2.6 G/DL (3.4-5.0) L Globulin 5.5 g/dL Albumin/Globulin Ratio 0.5 (1.0-2.7) L Microbiology Date/Time Source Procedure Growth Status 04/12/18 11:35 Blood Blood Culture - Preliminary NO GROWTH AFTER 24 HOURS Resulted 04/12/18 11:20 Blood Blood Culture - Preliminary NO GROWTH AFTER 24 HOURS Resulted 04/12/18 12:10 Nasal Nares MRSA Culture - Final Complete 04/12/18 11:35 Nasal Nares Influenza Types A,B Antigen (DORON) - Final Complete 04/12/18 12:10 Rectum - Final NO CARBAPENEM-RESISTANT ENTEROBACTERI... Complete Intake and Output 04/13/18 04/14/18 19:00 07:00 Intake Total 518.088 ml 400.136 ml Output Total 0 ml 0 ml Balance 518.088 ml 400.136 ml Intake Oral 0 ml 30 ml IV Total 518.088 ml 370.136 ml Output Urine Total 0 ml 0 ml # Bowel Movements 1 Objective GENERAL: Awake, responsive, alert HEAD AND NECK: Pupils equal and reactive to light. Extraocular movements intact. Neck was supple. No JVD. LUNGS: Fair air entry. Poor respiratory effort. No wheeze or rhonchi. Decreased air in the bases. HEART: S1 and S2. Distant heart sounds. No murmur. ABDOMEN: Soft, nondistended, and nontender. Morbidly obese. EXTREMITIES: No cyanosis, clubbing, or edema. Right femoral area has PermCath noted as well as left upper extremity AV fistula, functional. NEUROLOGIC: Cranial nerves II through XII are grossly intact. The patient is moving all the extremities spontaneously. Gait was not assessed due to the patient's status. PSYCHIATRIC: Mood and affect are intact. Assessment/Plan Assessment/Plan 1. Sepsis, most likely secondary to pneumonia. 2. Hypotension, possible septic shock. 3. Pancytopenia with severe thrombocytopenia. 4. End-stage renal disease, on hemodialysis. 5. Altered mental status, most likely toxic metabolic encephalopathy as a result of infection as well as uremia. 6. Anemia of chronic kidney disease. 7. Morbid obesity. 8. Bradycardia. PLAN: In ICU. follow up laboratory and cultures. Dr. Fredrick Conner from Nephrology consult Dr. Mcbride from ID consult. Discussed with the family member, brother at the bedside. Abx: Vancomycin, Meropenem, Azithromycin Code status is Full Code. DVT prophylaxis: heparin subcutaneous. Wean off Dopamine Drip CT of chest Cortisol level in AM. Ash Henley M.D. Ash Henley MD Apr 14, 2018 12:48
--- NOTE | 2018-04-14 13:20 | NUR ---
NURSE NOTES: pt refused Renvela 1600mg, due to stomach cramps. pt refused lunch tray, will offer again later.
--- NOTE | 2018-04-14 14:16 | Diagnostic Imaging Report ---
Indication: Cough Technique: CT chest was performed utilizing automated exposure control without intravenous contrast material. Axial sagittal and coronal images were generated. CT dose: Total DLP 927.31 mGycm; CTDI vol 22.42,19.05 mGy Comparison: CT angiogram of the chest 07/14/2017. Concurrent chest radiographs Findings: Airspace consolidation with air bronchograms noted in the left upper lobe along the major fissure. Smaller area of air space consolidation with air bronchograms noted in the medial right lower lobe. There is some patchy airspace opacities in the right upper lobe adjacent to the fissure, in the area of the previously described lung nodule, which was not definitively identified on today's exam (likely obscured). There are small bilateral pleural effusions, right greater than left. No evidence of pneumothorax. Heart size within normal limits and stable compared to the prior exam. A transfemoral approach tunneled dialysis catheter has its tip in the right atrium. Multiple serpiginous structures noted in the mediastinum correspond with the multiple dilated collateral veins noted on the prior CT angiogram. This is likely related to known central venous occlusions. Imaged portions of the lower thyroid grossly unremarkable. Thoracic aorta normal in caliber with some scattered atherosclerotic calcifications. Main pulmonary artery normal in caliber. Left hilar lymphadenopathy may be reactive in etiology however follow-up after resolution of acute symptoms is recommended. Additional smaller mediastinal and left hilar lymph nodes noted, possibly reactive. Large hiatal hernia again noted. No acute osseous abnormality identified. There is generalized heterogeneity of the osseous structures likely related to renal osteodystrophy given known history of end-stage renal disease. Nonspecific bilateral breast calcifications noted. Correlate with most recent mammography. Multiple surgical clips noted in the bilateral axilla. IMPRESSION: * Dense consolidations with air bronchograms noted in the left upper lobe and, to a lesser extent, medial right lower lobe most likely representing multifocal pneumonia. Follow-up after appropriate treatment recommended to ensure resolution. * Patchy opacities in the right upper lobe are also likely infectious in etiology. These obscure the previously described lung nodule. Attention to this area on follow-up recommended. * Prominent hilar and mediastinal lymph nodes, possibly reactive in etiology. * Small bilateral pleural effusions. * Large hiatal hernia * Dialysis catheter tip in the right atrium. Evidence of central venous occlusion with multiple collateral veins noted in the mediastinum. * Nonspecific calcifications in the bilateral breasts are correlation with most recent mammogram recommended. If none performed recently, then recommend follow-up screening mammogram. * Findings suggestive of renal osteodystrophy The CT scanner at [facility] is accredited by the [employer] and the scans are performed using protocols designed to limit radiation exposure to as low as reasonably achievable to attain images of sufficient resolution adequate for diagnostic evaluation.
--- NOTE | 2018-04-14 14:30 | NUR ---
NURSE NOTES: dopamine decreased to 2mcg/kg/hr, pt in no distress. will continue to monitor pt.
--- NOTE | 2018-04-14 15:33 | Nephrology Progress Note ---
Assessment/Plan Problem List: (1) ESRD (end stage renal disease) on dialysis (2) Hypotension (3) Encephalopathy Assessment: improved Assessment ESRD on HD HypoThyroidism Periodic Hypotension encephalopathic , metabolic Plan HD 04/13 and 04/15 per orders midodrine per consultants Subjective ROS Limited/Unobtainable: No Constitutional: Reports: malaise Objective Objective Last 24 Hour Vital Signs Date Time Temp Pulse Resp B/P (MAP) Pulse Ox O2 Delivery O2 Flow Rate FiO2 04/14/18 14:12 98/71 04/14/18 14:00 53 23 98/71 (80) 97 04/14/18 13:00 48 19 84/66 (72) 94 04/14/18 12:00 98.6 53 17 109/36 (60) 95 04/14/18 12:00 Nasal Cannula 2.0 04/14/18 12:00 3.0 04/14/18 12:00 50 04/14/18 11:00 47 22 120/41 (67) 94 04/14/18 10:00 47 15 107/37 (60) 92 04/14/18 09:00 97.7 48 13 130/39 (69) 90 04/14/18 08:00 48 23 111/33 (59) 92 04/14/18 08:00 Nasal Cannula 2.0 04/14/18 08:00 2.0 04/14/18 08:00 50 04/14/18 07:40 93 Nasal Cannula 2.0 28 04/14/18 07:40 Nasal Cannula 2.0 28 04/14/18 07:06 123/44 04/14/18 07:00 55 26 123/44 (70) 94 04/14/18 07:00 123/44 04/14/18 06:30 55 26 123/37 (65) 94 04/14/18 06:00 52 23 110/43 (65) 97 04/14/18 06:00 110/43 04/14/18 05:30 53 24 125/38 (67) 96 04/14/18 05:00 104/29 04/14/18 05:00 58 19 104/29 (54) 90 04/14/18 04:30 53 26 120/34 (62) 92 04/14/18 04:00 55 04/14/18 04:00 55 19 110/43 (65) 96 04/14/18 04:00 Nasal Cannula 2.0 04/14/18 04:00 120/34 04/14/18 04:00 2.0 04/14/18 03:30 54 22 117/36 (63) 90 04/14/18 03:00 54 25 120/27 (58) 95 04/14/18 03:00 120/27 04/14/18 02:30 57 28 114/38 (63) 95 04/14/18 02:00 113/33 04/14/18 02:00 53 28 113/33 (59) 97 04/14/18 01:30 56 23 107/41 (63) 93 04/14/18 01:00 131/43 04/14/18 01:00 98.4 56 27 131/43 (72) 95 04/14/18 00:30 53 20 117/37 (63) 99 04/14/18 00:00 Nasal Cannula 2.0 04/14/18 00:00 117/36 04/14/18 00:00 2.0 04/14/18 00:00 56 04/14/18 00:00 55 20 100/34 (56) 99 04/13/18 23:30 55 20 98/48 (65) 97 04/13/18 23:00 122/53 04/13/18 23:00 60 20 100/40 (60) 97 04/13/18 22:30 54 15 76/34 (48) 94 04/13/18 22:25 90/23 04/13/18 22:00 57 19 118/42 (67) 96 04/13/18 22:00 118/42 04/13/18 21:30 98.5 56 26 122/45 (70) 93 04/13/18 21:00 61 23 112/44 (66) 94 04/13/18 21:00 112/44 04/13/18 20:30 72 17 91/47 (62) 97 04/13/18 20:00 58 27 97/51 (66) 96 04/13/18 20:00 55 04/13/18 20:00 97/51 04/13/18 20:00 2.0 04/13/18 20:00 Nasal Cannula 2.0 04/13/18 19:45 Nasal Cannula 3.0 32 04/13/18 19:45 100 Nasal Cannula 3.0 32 04/13/18 19:00 91/50 04/13/18 19:00 61 14 91/50 (64) 95 04/13/18 18:30 64 20 94/48 (63) 95 04/13/18 18:00 79 20 97/58 (71) 94 04/13/18 18:00 96/58 04/13/18 17:30 60 29 101/47 (65) 95 04/13/18 17:00 81 30 88/46 (60) 96 04/13/18 16:57 Nasal Cannula 04/13/18 16:30 64 34 122/60 (80) 95 04/13/18 16:00 53 04/13/18 16:00 2.0 04/13/18 16:00 Nasal Cannula 2.0 04/13/18 16:00 98.0 04/13/18 16:00 98.0 60 27 117/58 (77) 93 Intake and Output 04/13/18 04/14/18 19:00 07:00 Intake Total 518.088 ml 400.136 ml Output Total 0 ml 0 ml Balance 518.088 ml 400.136 ml Intake Oral 0 ml 30 ml IV Total 518.088 ml 370.136 ml Output Urine Total 0 ml 0 ml # Bowel Movements 1 Laboratory Tests 04/14/18 04:25: White Blood Count 4.6L, Red Blood Count 3.73L, Hemoglobin 11.6L, Hematocrit 35.0L, Mean Corpuscular Volume 94, Mean Corpuscular Hemoglobin 31.2H, Mean Corpuscular Hemoglobin Concent 33.3, Red Cell Distribution Width 14.2, Platelet Count 110L, Mean Platelet Volume 10.7H, Neutrophils (%) (Auto) 69.5, Lymphocytes (%) (Auto) 23.1, Monocytes (%) (Auto) 5.8, Eosinophils (%) (Auto) 0.8, Basophils (%) (Auto) 0.8, Sodium Level 133L, Potassium Level 3.7, Chloride Level 93L, Carbon Dioxide Level 27, Anion Gap 13, Blood Urea Nitrogen 36H, Creatinine 11.9H, Estimat Glomerular Filtration Rate 4.0, Glucose Level 119H, Calcium Level 7.8L, Phosphorus Level 3.9, Magnesium Level 1.6L, Total Bilirubin 0.5, Aspartate Amino Transf (AST/SGOT) 21, Alanine Aminotransferase (ALT/SGPT) 15, Alkaline Phosphatase 231H, Troponin I 0.058H, Pro-B-Type Natriuretic Peptide 9287H, Total Protein 8.1, Albumin 2.6L, Globulin 5.5, Albumin/Globulin Ratio 0.5L Height (Feet): 5 Height (Inches): 6.00 Weight (Pounds): 198 General Appearance: no apparent distress Cardiovascular: normal rate Respiratory/Chest: decreased breath sounds Abdomen: soft Fredrick Conner MD Apr 14, 2018 15:33
--- NOTE | 2018-04-14 15:48 | NUR ---
NURSE NOTES: Pt c/o of not feeling well, no pain just a general unpleasant sensation, BP 71/45, HR 51. dopamine increased to 4mch/kg/hr. After a few minutes pt more responsive and alert. BP 96/37, HR 47,93% 02sat and 25 RR Addendum: 04/14/18 at 1628 by Zoraida Garcia RN Administered Tylenol 650mg po for c/o pain 3/10 in back.
--- NOTE | 2018-04-14 15:54 | Infectious Diseases Prog Note ---
Assessment/Plan Assessment/Plan ASSESSMENT: 1. sepsis, shock, pneumonia, CT chest noted, pressors, bradycardia - - vancomycin and meropenem - change azithromycin to doxycycline since bradycardic - cannot obtain sputum culture - monitor labs and chest x-ray, f/u on serology - icu care, pressors 2. End-stage renal disease, hemodialysis, has a right femoral line hemodialysis line and also left arm graft. 3. History of fistula in the past. 4. History of PermCath in the past 5. Anemia of chronic disease. 6. Hypertension - Blood pressure treatment per primary. 7. No history of diabetes mentioned. 8. Chronic kidney disease. 9. Obesity. 10. History of cholecystectomy. 11. History of parathyroidectomy. 12. History of carpal tunnel syndrome. 13. History of fractures, ORIF. 14. Past medical history noted. 15. Multiple drug allergies including cefazolin, Cipro, contrast media, gentamicin, ketamine, Levaquin and penicillin, she seems to tolerate carbapenems. 16. Social history is negative . 17. Family history is noncontributory. 18. MAR was noted. 19. Case discussed with RN. 20. Continue treatment per primary consultants. 21. Notes were noted and orders were entered. Subjective Constitutional: Reports: fatigue; Denies: fever HEENT: Reports: congestion Respiratory: Reports: shortness of breath Cardiovascular: Denies: chest pain Gastrointestinal/Abdominal: Reports: other - no abdominal pain ; Denies: nausea , vomiting, diarrhea Genitourinary: Reports: other - no mckinney, hd patient Neurologic: Denies: headache Psychiatric: Denies: depression Skin: Denies: rash Hematologic: Denies: bleeding Musculoskeletal: Denies: pain Allergies: Coded Allergies: CEFAZOLIN (Verified Allergy, Unknown, 10/02/10) CIPROFLOXACIN (Verified Allergy, Unknown, 10/02/10) GENTAMICIN (Verified Allergy, Unknown, 10/02/10) KETAMINE (Verified Allergy, Unknown, 03/29/18) LEVOFLOXACIN (Verified Allergy, Unknown, 10/02/10) PENICILLINS (Verified Allergy, Unknown, ITCH, 10/02/10) Uncoded Allergies: CONTRAST MEDIA (Adverse Reaction, Mild, MILD ITCHING AFTER CONTRAST MEDIA, 04/30/17) Objective Vital Signs Last 24 Hour Vital Signs Date Time Temp Pulse Resp B/P (MAP) Pulse Ox O2 Delivery O2 Flow Rate FiO2 04/14/18 14:12 98/71 04/14/18 14:00 53 23 98/71 (80) 97 04/14/18 13:00 48 19 84/66 (72) 94 04/14/18 12:00 98.6 53 17 109/36 (60) 95 04/14/18 12:00 Nasal Cannula 2.0 04/14/18 12:00 3.0 04/14/18 12:00 50 04/14/18 11:00 47 22 120/41 (67) 94 04/14/18 10:00 47 15 107/37 (60) 92 04/14/18 09:00 97.7 48 13 130/39 (69) 90 04/14/18 08:00 48 23 111/33 (59) 92 04/14/18 08:00 Nasal Cannula 2.0 04/14/18 08:00 2.0 04/14/18 08:00 50 04/14/18 07:40 93 Nasal Cannula 2.0 28 04/14/18 07:40 Nasal Cannula 2.0 28 04/14/18 07:06 123/44 04/14/18 07:00 55 26 123/44 (70) 94 04/14/18 07:00 123/44 04/14/18 06:30 55 26 123/37 (65) 94 04/14/18 06:00 52 23 110/43 (65) 97 04/14/18 06:00 110/43 04/14/18 05:30 53 24 125/38 (67) 96 04/14/18 05:00 104/29 04/14/18 05:00 58 19 104/29 (54) 90 04/14/18 04:30 53 26 120/34 (62) 92 04/14/18 04:00 55 04/14/18 04:00 55 19 110/43 (65) 96 04/14/18 04:00 Nasal Cannula 2.0 04/14/18 04:00 120/34 04/14/18 04:00 2.0 04/14/18 03:30 54 22 117/36 (63) 90 04/14/18 03:00 54 25 120/27 (58) 95 04/14/18 03:00 120/27 04/14/18 02:30 57 28 114/38 (63) 95 04/14/18 02:00 113/33 04/14/18 02:00 53 28 113/33 (59) 97 04/14/18 01:30 56 23 107/41 (63) 93 04/14/18 01:00 131/43 04/14/18 01:00 98.4 56 27 131/43 (72) 95 04/14/18 00:30 53 20 117/37 (63) 99 04/14/18 00:00 Nasal Cannula 2.0 04/14/18 00:00 117/36 04/14/18 00:00 2.0 04/14/18 00:00 56 04/14/18 00:00 55 20 100/34 (56) 99 04/13/18 23:30 55 20 98/48 (65) 97 04/13/18 23:00 122/53 04/13/18 23:00 60 20 100/40 (60) 97 04/13/18 22:30 54 15 76/34 (48) 94 04/13/18 22:25 90/23 04/13/18 22:00 57 19 118/42 (67) 96 04/13/18 22:00 118/42 04/13/18 21:30 98.5 56 26 122/45 (70) 93 04/13/18 21:00 61 23 112/44 (66) 94 04/13/18 21:00 112/44 04/13/18 20:30 72 17 91/47 (62) 97 04/13/18 20:00 58 27 97/51 (66) 96 04/13/18 20:00 55 04/13/18 20:00 97/51 04/13/18 20:00 2.0 04/13/18 20:00 Nasal Cannula 2.0 04/13/18 19:45 Nasal Cannula 3.0 32 04/13/18 19:45 100 Nasal Cannula 3.0 32 04/13/18 19:00 91/50 04/13/18 19:00 61 14 91/50 (64) 95 04/13/18 18:30 64 20 94/48 (63) 95 04/13/18 18:00 79 20 97/58 (71) 94 04/13/18 18:00 96/58 04/13/18 17:30 60 29 101/47 (65) 95 04/13/18 17:00 81 30 88/46 (60) 96 04/13/18 16:57 Nasal Cannula 04/13/18 16:30 64 34 122/60 (80) 95 04/13/18 16:00 53 04/13/18 16:00 2.0 04/13/18 16:00 Nasal Cannula 2.0 04/13/18 16:00 98.0 04/13/18 16:00 98.0 60 27 117/58 (77) 93 Height (Feet): 5 Height (Inches): 6.00 Weight (Pounds): 198 General Appearance: no acute distress, other - on pressors, alert and responsive HEENT: normocephalic, atraumatic, anicteric, mucous membranes moist Respiratory/Chest: no respiratory distress, no accessory muscle use, crackles/ rales, rhonchi - bilaterally Cardiovascular: regular rhythm, no gallop/murmur, no JVD, bradycardia Abdomen: normal bowel sounds, soft, non tender, no organomegaly, non distended Genitourinary: other - no mckinney Extremities: no cyanosis Skin: no rash 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 Follow-up after appropriate treatment recommended to ensure resolution. * Patchy opacities in the right upper lobe are also likely infectious in etiology. These obscure the previously described lung nodule. Attention to this area on follow-up recommended. * Prominent hilar and mediastinal lymph nodes, possibly reactive in etiology. * Small bilateral pleural effusions. * Large hiatal hernia * Dialysis catheter tip in the right atrium. Evidence of central venous occlusion with multiple collateral veins noted in the mediastinum. * Nonspecific calcifications in the bilateral breasts are correlation with most recent mammogram recommended. If none performed recently, then recommend follow- up screening mammogram. * Findings suggestive of renal osteodystrophy Chest x-ray - 04/14 - Findings: Heart size and mediastinal contours stable. Femoral approach dialysis catheter is again noted. Multiple surgical clips noted in the bilateral axilla. Portions of a stents again visualized in the right axilla. Multiple surgical clips noted in the right arm. Case Assistant opacities in the left midlung peripherally. No evidence of pneumothorax. There is patchy opacity at the right base. Osseous structures stable. Calcifications in the right breast noted. Impression: Left-sided airspace opacities most concerning for pneumonia. There is slight interval increased density compared to prior exam which may be technical. Microbiology Date/Time Source Procedure Growth Status 04/12/18 11:35 Blood Blood Culture - Preliminary NO GROWTH AFTER 24 HOURS Resulted 04/12/18 11:20 Blood Blood Culture - Preliminary NO GROWTH AFTER 24 HOURS Resulted 04/12/18 12:10 Nasal Nares MRSA Culture - Final Complete 04/12/18 11:35 Nasal Nares Influenza Types A,B Antigen (DORON) - Final Complete 04/12/18 12:10 Rectum - Final NO CARBAPENEM-RESISTANT ENTEROBACTERI... Complete Laboratory Tests Test 04/14/18 04:25 White Blood Count 4.6 K/UL (4.8-10.8) L Red Blood Count 3.73 M/UL (4.20-5.40) L Hemoglobin 11.6 G/DL (12.0-16.0) L Hematocrit 35.0 % (37.0-47.0) L Mean Corpuscular Volume 94 FL (80-99) Mean Corpuscular Hemoglobin 31.2 PG (27.0-31.0) H Mean Corpuscular Hemoglobin Concent 33.3 G/DL (32.0-36.0) Red Cell Distribution Width 14.2 % (11.6-14.8) Platelet Count 110 K/UL (150-450) L Mean Platelet Volume 10.7 FL (6.5-10.1) H Neutrophils (%) (Auto) 69.5 % (45.0-75.0) Lymphocytes (%) (Auto) 23.1 % (20.0-45.0) Monocytes (%) (Auto) 5.8 % (1.0-10.0) Eosinophils (%) (Auto) 0.8 % (0.0-3.0) Basophils (%) (Auto) 0.8 % (0.0-2.0) Sodium Level 133 MMOL/L (136-145) L Potassium Level 3.7 MMOL/L (3.5-5.1) Chloride Level 93 MMOL/L (98-107) L Carbon Dioxide Level 27 MMOL/L (21-32) Anion Gap 13 mmol/L (5-15) Blood Urea Nitrogen 36 mg/dL (7-18) H Creatinine 11.9 MG/DL (0.55-1.30) H Estimat Glomerular Filtration Rate 4.0 mL/min (>60) Glucose Level 119 MG/DL (74-106) H Calcium Level 7.8 MG/DL (8.5-10.1) L Phosphorus Level 3.9 MG/DL (2.5-4.9) Magnesium Level 1.6 MG/DL (1.8-2.4) L Total Bilirubin 0.5 MG/DL (0.2-1.0) Aspartate Amino Transf (AST/SGOT) 21 U/L (15-37) Alanine Aminotransferase (ALT/SGPT) 15 U/L (12-78) Alkaline Phosphatase 231 U/L (46-116) H Troponin I 0.058 ng/mL (0.000-0.056) Pro-B-Type Natriuretic Peptide 9287 pg/mL (0-125) H Total Protein 8.1 G/DL (6.4-8.2) Albumin 2.6 G/DL (3.4-5.0) L Globulin 5.5 g/dL Albumin/Globulin Ratio 0.5 (1.0-2.7) L Current Medications Medications (Trade) Dose Ordered Sig/Marcos Route PRN Reason Start Time Stop Time Status Last Admin Dose Admin Acetaminophen (Tylenol) 650 mg Q6H PRN ORAL Mild Pain/Temp > 100.5 04/12/18 17:45 05/12/18 17:44 04/14/18 05:13 Azithromycin (Zithromax) 250 mg DAILY ORAL 04/14/18 09:00 04/21/18 08:59 04/14/18 08:27 Chlorhexidine Gluconate (Nivia-Hex 2%) 1 applic DAILY@2000 TOPIC 04/13/18 20:00 05/13/18 19:59 04/13/18 20:09 Dopamine HCl/ Dextrose 250 ml @ 0 mls/hr Q24H IV 04/12/18 15:45 05/12/18 15:44 04/14/18 14:12 Heparin Sodium (Porcine) (Heparin 5000 units/ml) 5,000 units EVERY 12 HOURS SUBQ 04/12/18 21:00 05/12/18 20:59 04/14/18 08:35 Meropenem 500 mg/ Sodium Chloride 50 ml @ 100 mls/hr Q24HRS IVPB 04/13/18 14:00 04/18/18 13:59 04/14/18 14:11 Midodrine (Pro-Amatine) 10 mg Q8HR ORAL 04/12/18 22:00 05/12/18 21:59 04/14/18 14:13 Ondansetron HCl (Zofran) 4 mg Q4H PRN IVP Nausea & Vomiting 04/12/18 17:45 05/12/18 17:44 04/13/18 15:35 Pantoprazole (Protonix) 40 mg BID ORAL 04/12/18 18:00 05/12/18 17:59 04/14/18 08:29 Sevelamer Carbonate (Renvela) 800 mg THREE TIMES A DAY ORAL 04/14/18 18:00 05/13/18 08:59 Vancomycin HCl (Vanco rx to dose) 1 ea DAILY PRN MISC Per rx protocol 04/12/18 17:45 05/12/18 17:44 Zolpidem Tartrate (Ambien) 5 mg QHS PRN ORAL INSOMNIA 04/12/18 23:15 04/19/18 23:14 Edgardo Mcbride MD Apr 14, 2018 15:54
--- NOTE | 2018-04-14 17:16 | NUR ---
NURSE NOTES: order for Robitussin 15ml q6hr PRN for cough.
--- NOTE | 2018-04-14 17:20 | NUR ---
NURSE NOTES: Pt eating dinner at side of bed, with feet dangling. bp 96/57, hr 53, 02sat 93 3lnc, rr19. No c/o dizziness or pain. will continue to monitor pt closely and implement plan of care.
--- NOTE | 2018-04-14 17:29 | NUR ---
CASE MANAGEMENT: REVIEW SI: ESRD ON HD . PNA T 99.0 HR 46 RR 18 BP 88/40 SAT 98% NC/3L WBC 4.6 H/H 11.6/35.0 TROPONIN I 0.058 IS: DOXYCYCLINE IV Q12HR MEROPENEM IV Q24HR MIDODRINE PO Q8HR HEPARIN SQ Q12HR PROTONIX PO BID ICU STATUS DCP: PATIENT IS FROM HOME
[2018-04-14] MEDS: guaiFENesin 100mg/5ml Liq ud ORAL PRN (18:08)
--- NOTE | 2018-04-14 19:16 | NUR ---
NURSE NOTES: received pt from Morgan Garcia RN. Patient is A/Ox4; able to verbalize needs and opens eyes spontaneously. c/o of nausea, Zofran IV given as per ordered. Patient had x1 emesis of what appeared to be her dinner. No blood noted. BP 118/63, HR 51, RR 13, SPO2 97% 3LNC, T 98.8, denies any pain or SOB at this time. Dopamine gtt running @ 6mcg/kg/hr via right femoral ky catheter. Patient has a RFA 20G and RW 20G saline locked and asymptomatic. Pt c/o of dryness in nares from [place], humidifier connected per pt request. SHUKRI AV fistula noted with positive bruit and thrill. Pt is anuric and refused intermittent catheterization for urine collection, educated pt regarding risks and benefits but patient still refused x3. allergies noted. call light within reach. will continue to monitor. Addendum: 04/15/18 at 0204 by SHAYNE BAKER RN Patient has right femoral permacatheter.
--- NOTE | 2018-04-14 19:29 | NUR ---
HAND-OFF: Report given to Jennie. pt in no acute distress
[2018-04-14] MEDS: Dyna-Hex 2% Top Sol 2oz TOPIC SCH (20:21)
--- NOTE | 2018-04-14 21:24 | NUR ---
NURSE NOTES: BP 125/73, titrated Dopamine gtt to 4mcg/kg/hr. BP decreased to 76/34, titrated to 10mcg/kg/hr, BP 116/54. Will continue to monitor and try weaning again later.
[2018-04-14] MEDS: Zolpidem 5mg tab ORAL PRN (23:01)
[2018-04-15] VITALS (37 sets, daily range): BP systolic 67–151; BP diastolic 19–95
--- NOTE | 2018-04-15 00:46 | NUR ---
NURSE NOTES: Pt had x1 soft brown BM in BSC. Bp decreased to 78/54 upon standing noted. Helped patient back to bed, BP stable.
--- NOTE | 2018-04-15 02:15 | NUR ---
NURSE NOTES: Pt observed asleep in bed. VSS. No s/sx of distress noted.
--- NOTE | 2018-04-15 04:13 | NUR ---
NURSE NOTES: CHG bath given, linen/gown changed, lotion applied. Pt had another BM in BSC. Continue dopamine gtt. No s/sx of acute distress noted. Bed locked, alarmed and in lowest position.
--- NOTE | 2018-04-15 05:17 | NUR ---
NURSE NOTES: Called [facility] to confirm HD scheduled today. Awaiting for call back.
[2018-04-15 05:18] LABS: BASOPHILS % (AUTO) 0.8 % (0.0-2.0); EOSINOPHILS % (AUTO) 3.2 % (0.0-3.0); HEMATOCRIT 37.4 % (37.0-47.0); HEMOGLOBIN 12.1 G/DL (12.0-16.0); LYMPHOCYTES % (AUTO) 22.8 % (20.0-45.0); MEAN CORPUSCULAR VOLUME 94 FL (80-99); MONOCYTES % (AUTO) 6.1 % (1.0-10.0); PLATELET COUNT 149 K/UL (150-450); RED BLOOD COUNT 3.97 M/UL (4.20-5.40); RED CELL DISTRIBUTION WIDTH 14.7 % (11.6-14.8); WHITE BLOOD COUNT 5.8 K/UL (4.8-10.8)
[2018-04-15] MEDS: Midodrine 10mg tab ORAL SCH ×3 (06:05→21:41)
[2018-04-15 06:39] LABS: ALANINE AMINOTRANSFERASE 13 U/L (12-78); ALBUMIN 2.7 G/DL (3.4-5.0); ALBUMIN/GLOBULIN RATIO 0.5 (1.0-2.7); ALKALINE PHOSPHATASE 206 U/L (46-116); ANION GAP 16 mmol/L (5-15); ASPARTATE AMINO TRANSFERASE 21 U/L (15-37); BILIRUBIN,TOTAL 0.5 MG/DL (0.2-1.0); BLOOD UREA NITROGEN 44 mg/dL (7-18); CALCIUM 7.6 MG/DL (8.5-10.1); CARBON DIOXIDE 26 MMOL/L (21-32); CHLORIDE 91 MMOL/L (98-107); CREATININE 13.1 MG/DL (0.55-1.30); POTASSIUM 3.8 MMOL/L (3.5-5.1); SODIUM 133 MMOL/L (136-145)
--- NOTE | 2018-04-15 07:09 | NUR ---
HAND-OFF: Report given to WILLI Conway. No acute distress noted. No change in condition.
--- NOTE | 2018-04-15 07:33 | NUR ---
NURSE NOTES: Received report from Jennie MÁRQUEZ. Pt awake and oriented x4, but fatigued. On monitor HR 51, BP123/44 RR 19, 02sat 92% 03L NC. bilateral radial and pedal pulses weak. RT ankle non pitting edema. 4/5 strength upper and lower extremities. cap refill <3sec. abdomen round, non tender, bowel sounds active in all quadrants. appetite poor. Diet low K. 1 BM. bedside commode in room. pt anuric, bladder flat. Dopamine running @8mcg/kg/hr to PermaCath femoral. RT wrist 20 G intact and patent. SHUKRI AV fistula noted, positive bruit and thrill. bed locked and in low position, side rails x2 up and call light within reach. education on plan of care for today. Will continue to monitor pt.
[2018-04-15] MEDS: DOPamine 400mg/250ml 250 ML IV SCH ×2 (08:33→18:00)
[2018-04-15] MEDS: Heparin 5000 units/ml inj SUBQ SCH ×2 (08:42→20:40)
--- NOTE | 2018-04-15 10:05 | NUR ---
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 PT JUST BACK IN BED FROM USING BEDSIDE COMMODE. BP 125/55 HR 53. PT IN NO ACUTE DISTRESS.
--- NOTE | 2018-04-15 11:05 | Internal Med Progress Note ---
Subjective Physician Name Ash Henley Attending Physician Ash Henley MD Current Medications Medications (Trade) Dose Ordered Sig/Marcos Route PRN Reason Start Time Stop Time Status Last Admin Dose Admin Acetaminophen (Tylenol) 650 mg Q6H PRN ORAL Mild Pain/Temp > 100.5 04/12/18 17:45 05/12/18 17:44 04/15/18 08:34 Chlorhexidine Gluconate (Nivia-Hex 2%) 1 applic DAILY@2000 TOPIC 04/13/18 20:00 05/13/18 19:59 04/14/18 20:21 Dopamine HCl/ Dextrose 250 ml @ 0 mls/hr Q24H IV 04/12/18 15:45 05/12/18 15:44 04/15/18 08:33 Doxycycline Hyclate 100 mg/ Dextrose 100 ml @ 100 mls/hr Q12HR IV 04/14/18 21:00 04/21/18 20:59 04/15/18 08:36 Guaifenesin (Robitussin) 300 mg Q6H PRN ORAL For Cough 04/14/18 17:00 05/14/18 16:59 04/14/18 18:08 Heparin Sodium (Porcine) (Heparin 5000 units/ml) 5,000 units EVERY 12 HOURS SUBQ 04/12/18 21:00 05/12/18 20:59 04/15/18 08:42 Meropenem 500 mg/ Sodium Chloride 50 ml @ 100 mls/hr Q24HRS IVPB 04/13/18 14:00 04/18/18 13:59 04/14/18 14:11 Midodrine (Pro-Amatine) 10 mg Q8HR ORAL 04/12/18 22:00 05/12/18 21:59 04/15/18 06:05 Ondansetron HCl (Zofran) 4 mg Q4H PRN IVP Nausea & Vomiting 04/12/18 17:45 05/12/18 17:44 04/14/18 19:33 Pantoprazole (Protonix) 40 mg BID ORAL 04/12/18 18:00 05/12/18 17:59 04/15/18 08:34 Sevelamer Carbonate (Renvela) 800 mg THREE TIMES A DAY ORAL 04/14/18 18:00 05/13/18 08:59 04/15/18 08:34 Vancomycin HCl (Vanco rx to dose) 1 ea DAILY PRN MISC Per rx protocol 04/12/18 17:45 05/12/18 17:44 Vancomycin/Sodium Chloride 250 ml @ 166.667 mls/hr ONCE IVPB 04/15/18 21:00 04/15/18 23:00 Zolpidem Tartrate (Ambien) 5 mg QHS PRN ORAL INSOMNIA 04/12/18 23:15 04/19/18 23:14 04/14/18 23:01 Allergies: Coded Allergies: CEFAZOLIN (Verified Allergy, Unknown, 10/02/10) CIPROFLOXACIN (Verified Allergy, Unknown, 10/02/10) GENTAMICIN (Verified Allergy, Unknown, 10/02/10) KETAMINE (Verified Allergy, Unknown, 03/29/18) LEVOFLOXACIN (Verified Allergy, Unknown, 10/02/10) PENICILLINS (Verified Allergy, Unknown, ITCH, 10/02/10) Uncoded Allergies: CONTRAST MEDIA (Adverse Reaction, Mild, MILD ITCHING AFTER CONTRAST MEDIA, 04/30/17) Subjective still in ICU, awake, alert, responsive, feeling weak, C/O a lot of dry cough, sister at bedside. Objective Last Vital Signs Date Time Temp Pulse Resp B/P (MAP) Pulse Ox O2 Delivery O2 Flow Rate FiO2 04/15/18 08:33 142/66 04/15/18 07:21 95 Nasal Cannula 5.0 04/15/18 07:00 49 21 04/15/18 06:00 97.8 04/14/18 20:45 28 Laboratory Tests Test 04/15/18 04:10 White Blood Count 5.8 K/UL (4.8-10.8) Red Blood Count 3.97 M/UL (4.20-5.40) L Hemoglobin 12.1 G/DL (12.0-16.0) Hematocrit 37.4 % (37.0-47.0) Mean Corpuscular Volume 94 FL (80-99) Mean Corpuscular Hemoglobin 30.6 PG (27.0-31.0) Mean Corpuscular Hemoglobin Concent 32.5 G/DL (32.0-36.0) Red Cell Distribution Width 14.7 % (11.6-14.8) Platelet Count 149 K/UL (150-450) L Mean Platelet Volume 11.6 FL (6.5-10.1) H Neutrophils (%) (Auto) 67.0 % (45.0-75.0) Lymphocytes (%) (Auto) 22.8 % (20.0-45.0) Monocytes (%) (Auto) 6.1 % (1.0-10.0) Eosinophils (%) (Auto) 3.2 % (0.0-3.0) H Basophils (%) (Auto) 0.8 % (0.0-2.0) Sodium Level 133 MMOL/L (136-145) L Potassium Level 3.8 MMOL/L (3.5-5.1) Chloride Level 91 MMOL/L (98-107) L Carbon Dioxide Level 26 MMOL/L (21-32) Anion Gap 16 mmol/L (5-15) H Blood Urea Nitrogen 44 mg/dL (7-18) H Creatinine 13.1 MG/DL (0.55-1.30) H Estimat Glomerular Filtration Rate 3.6 mL/min (>60) Glucose Level 103 MG/DL (74-106) Calcium Level 7.6 MG/DL (8.5-10.1) L Total Bilirubin 0.5 MG/DL (0.2-1.0) Aspartate Amino Transf (AST/SGOT) 21 U/L (15-37) Alanine Aminotransferase (ALT/SGPT) 13 U/L (12-78) Alkaline Phosphatase 206 U/L (46-116) H Total Protein 7.7 G/DL (6.4-8.2) Albumin 2.7 G/DL (3.4-5.0) L Globulin 5.0 g/dL Albumin/Globulin Ratio 0.5 (1.0-2.7) L Cortisol AM Sample Pending Random Vancomycin Level 24.1 ug/mL Microbiology Date/Time Source Procedure Growth Status 04/12/18 11:35 Blood Blood Culture - Preliminary NO GROWTH AFTER 48 HOURS Resulted 04/12/18 11:20 Blood Blood Culture - Preliminary NO GROWTH AFTER 48 HOURS Resulted 04/12/18 12:10 Nasal Nares MRSA Culture - Final Complete 04/12/18 11:35 Nasal Nares Influenza Types A,B Antigen (DORON) - Final Complete 04/12/18 12:10 Rectum - Final NO CARBAPENEM-RESISTANT ENTEROBACTERI... Complete Intake and Output 04/14/18 04/15/18 19:00 07:00 Intake Total 710.577 ml 278.118 ml Output Total 0 ml 30 ml Balance 710.577 ml 248.118 ml Intake Oral 235 ml 30 ml IV Total 475.577 ml 248.118 ml Output Urine Total 0 ml 0 ml Emesis 30 ml # Bowel Movements 4 Objective GENERAL: Awake, responsive, alert HEAD AND NECK: Pupils equal and reactive to light. Extraocular movements intact. Neck was supple. No JVD. LUNGS: Fair air entry. Poor respiratory effort. No wheeze or rhonchi. Decreased air in the bases. HEART: S1 and S2. Distant heart sounds. No murmur. ABDOMEN: Soft, nondistended, and nontender. Morbidly obese. EXTREMITIES: No cyanosis, clubbing, or edema. Right femoral area PermCath as well as left upper extremity AV fistula, functional. NEUROLOGIC: Cranial nerves II through XII are grossly intact. The patient is moving all the extremities spontaneously. Gait was not assessed due to the patient's status. PSYCHIATRIC: Mood and affect are intact. Assessment/Plan Assessment/Plan 1. Sepsis, most likely secondary to left upper lobe and, to a lesser extent, medial right lower lobe most likely representing multifocal pneumonia. 2. Hypotension, possible septic shock. 3. Pancytopenia with severe thrombocytopenia resolving. 4. End-stage renal disease, on hemodialysis. 5. Altered mental status, most likely toxic metabolic encephalopathy as a result of infection as well as uremia. 6. Anemia of chronic kidney disease. 7. Morbid obesity. 8. Bradycardia. PLAN: In ICU. follow up laboratory and cultures. Dr. Fredrick Conner from Nephrology consult Dr. Mcbride from ID consult. Discussed with the family member, brother at the bedside. Abx: Vancomycin, Meropenem, Azithromycin Code status is Full Code. DVT prophylaxis: heparin subcutaneous. Wean off Dopamine Drip CT of chest noted. Cortisol level Pending. Herman Arzola Payam MD Apr 15, 2018 11:05
--- NOTE | 2018-04-15 11:31 | NUR ---
RD ASSESSMENT & RECOMMENDATIONS SEE CARE ACTIVITY FOR COMPLETE ASSESSMENT DAILY ESTIMATED NEEDS: Needs based on ESRD on HD, obese 66.4kg adj 25-30 kcals/kg [id number] total kcals 1.2-1.8 g protein/kg 80-120 g total protein Fluid per MD, on HD mL/kg total fluid mLs NUTRITION DIAGNOSIS: 1) Increased protein needs R/T renal dysfunction as evidenced by pt w/ ESRD on HD 2) Altered nutrition related lab values R/T renal dysfunction, pre-DM?, clinical condition as evidenced by low Na (133), elev BNP (9287), A1C=6.0, low BP, on pressor. CURRENT DIET:LOW POTASSIUM PO DIET RECOMMENDATIONS: RENAL DIET, CCHO MED + DOUBLE PROTEIN PORTIONS ADDITIONAL RECOMMENDATIONS: 1) Weights per policy/ HD pt 2) Nephrovite x1 tab daily 3) Nepro 1 tetra diana BID w/ continued poor/variable PO intake 4) Monitor BGs, need for hypoglycemic agent: A1C of 6.0
--- NOTE | 2018-04-15 11:40 | NUR ---
NURSE NOTES: H.D complete because pt c/o feel well and BP 76/44. once recycled bp95/40. family at bedside. 350ml removed. will continue to monitor pt closely
--- NOTE | 2018-04-15 11:50 | Nephrology Progress Note ---
Assessment/Plan Problem List: (1) ESRD (end stage renal disease) on dialysis (2) Hypotension (3) Encephalopathy Assessment: improved Assessment ESRD on HD HypoThyroidism Periodic Hypotension encephalopathic , metabolic Plan HD 04/13 and 04/15- currently on - tolerating well per orders midodrine per consultants ? Cardiac eval for low HR Subjective ROS Limited/Unobtainable: No Constitutional: Reports: malaise Objective Objective Last 24 Hour Vital Signs Date Time Temp Pulse Resp B/P (MAP) Pulse Ox O2 Delivery O2 Flow Rate FiO2 04/15/18 08:33 142/66 04/15/18 07:21 95 Nasal Cannula 5.0 04/15/18 07:21 Nasal Cannula 5.0 04/15/18 07:00 49 21 97/44 (61) 100 04/15/18 06:00 106/45 04/15/18 06:00 97.8 53 21 106/45 (65) 98 04/15/18 05:00 98.8 52 18 123/65 (84) 95 04/15/18 05:00 122/63 04/15/18 04:00 Nasal Cannula 3.0 04/15/18 04:00 51 04/15/18 04:00 113/64 04/15/18 04:00 51 14 113/64 (80) 99 04/15/18 03:30 67 14 83/43 (56) 98 04/15/18 03:00 51 14 100/54 (69) 100 04/15/18 03:00 101/48 04/15/18 02:30 51 16 101/45 (63) 97 04/15/18 02:00 51 13 103/41 (61) 98 04/15/18 02:00 103/41 04/15/18 01:30 55 25 127/44 (71) 96 04/15/18 01:00 126/49 04/15/18 01:00 51 18 105/52 (69) 95 04/15/18 00:30 53 25 86/23 (44) 96 04/15/18 00:00 56 04/15/18 00:00 Nasal Cannula 3.0 04/15/18 00:00 128/55 04/15/18 00:00 98.6 53 16 118/62 (80) 95 04/14/18 23:30 53 25 122/58 (79) 92 04/14/18 23:00 53 25 122/58 (79) 92 04/14/18 23:00 123/58 04/14/18 22:30 56 21 132/63 (86) 94 04/14/18 22:00 52 25 122/54 (76) 92 04/14/18 22:00 124/60 04/14/18 21:30 59 21 124/60 (81) 96 04/14/18 21:00 126/64 04/14/18 21:00 51 25 126/64 (84) 92 04/14/18 20:45 Nasal Cannula 2.0 28 04/14/18 20:45 98 Nasal Cannula 3.0 32 04/14/18 20:30 49 17 71/25 (40) 95 04/14/18 20:00 98.8 51 13 116/61 (79) 97 04/14/18 20:00 51 04/14/18 20:00 Nasal Cannula 3.0 04/14/18 20:00 79/38 04/14/18 19:30 51 17 119/63 (81) 94 04/14/18 19:00 47 25 125/48 (73) 94 04/14/18 19:00 125/58 04/14/18 18:00 77/54 04/14/18 18:00 48 25 84/43 (57) 94 04/14/18 17:00 44 21 86/34 (51) 95 04/14/18 17:00 83/39 04/14/18 16:00 50 04/14/18 16:00 99.0 46 17 88/40 (56) 98 04/14/18 16:00 88/40 04/14/18 16:00 3.0 04/14/18 16:00 Nasal Cannula 3.0 04/14/18 15:30 55/44 04/14/18 15:00 52 16 90/14 (39) 95 04/14/18 15:00 90/14 04/14/18 14:30 94/71 04/14/18 14:12 98/71 04/14/18 14:00 53 23 98/71 (80) 97 04/14/18 14:00 84/24 04/14/18 13:50 90/42 04/14/18 13:00 84/66 04/14/18 13:00 48 19 84/66 (72) 94 04/14/18 12:30 107/36 04/14/18 12:00 98.6 53 17 109/36 (60) 95 04/14/18 12:00 Nasal Cannula 2.0 04/14/18 12:00 3.0 04/14/18 12:00 79/45 04/14/18 12:00 50 Intake and Output 04/14/18 04/15/18 19:00 07:00 Intake Total 710.577 ml 278.118 ml Output Total 0 ml 30 ml Balance 710.577 ml 248.118 ml Intake Oral 235 ml 30 ml IV Total 475.577 ml 248.118 ml Output Urine Total 0 ml 0 ml Emesis 30 ml # Bowel Movements 4 Laboratory Tests 04/15/18 04:10: White Blood Count 5.8, Red Blood Count 3.97L, Hemoglobin 12.1, Hematocrit 37.4, Mean Corpuscular Volume 94, Mean Corpuscular Hemoglobin 30.6, Mean Corpuscular Hemoglobin Concent 32.5, Red Cell Distribution Width 14.7, Platelet Count 149L, Mean Platelet Volume 11.6H, Neutrophils (%) (Auto) 67.0, Lymphocytes (%) (Auto) 22.8, Monocytes (%) (Auto) 6.1, Eosinophils (%) (Auto) 3.2H, Basophils (%) (Auto ) 0.8, Sodium Level 133L, Potassium Level 3.8, Chloride Level 91L, Carbon Dioxide Level 26, Anion Gap 16H, Blood Urea Nitrogen 44H, Creatinine 13.1H, Estimat Glomerular Filtration Rate 3.6, Glucose Level 103, Calcium Level 7.6L, Total Bilirubin 0.5, Aspartate Amino Transf (AST/SGOT) 21, Alanine Aminotransferase (ALT/SGPT) 13, Alkaline Phosphatase 206H, Total Protein 7.7, Albumin 2.7L, Globulin 5.0, Albumin/Globulin Ratio 0.5L, Cortisol AM Sample [ Pending], Random Vancomycin Level 24.1 Height (Feet): 5 Height (Inches): 6.00 Weight (Pounds): 199 General Appearance: no apparent distress, other - occ cough Cardiovascular: bradycardia Respiratory/Chest: decreased breath sounds Fredrick Conner MD Apr 15, 2018 11:50
--- NOTE | 2018-04-15 14:00 | NUR ---
NURSE NOTES: Pt resting in bed, MD Liang here to see pt. will place own orders.
--- NOTE | 2018-04-15 14:06 | Cardiac Electrophysiology PN ---
Subjective Subjective [id number] Objective Last 24 Hour Vital Signs Date Time Temp Pulse Resp B/P (MAP) Pulse Ox O2 Delivery O2 Flow Rate FiO2 04/15/18 13:00 59 25 124/54 (77) 100 04/15/18 12:00 84 04/15/18 12:00 Nasal Cannula 3.0 04/15/18 12:00 99.6 94 26 91/40 (57) 95 04/15/18 11:30 55 20 130/95 (107) 99 04/15/18 11:00 66 16 140/44 (76) 94 04/15/18 10:30 53 16 126/52 (76) 98 04/15/18 10:00 56 19 125/55 (78) 92 04/15/18 09:30 48 21 113/45 (67) 94 04/15/18 09:00 49 21 121/42 (68) 90 04/15/18 08:33 142/66 04/15/18 08:30 61 19 67/19 (35) 98 04/15/18 08:00 Nasal Cannula 3.0 04/15/18 08:00 52 04/15/18 08:00 52 21 143/46 (78) 98 04/15/18 07:30 99.8 58 22 107/63 (78) 96 04/15/18 07:21 95 Nasal Cannula 5.0 04/15/18 07:21 Nasal Cannula 5.0 04/15/18 07:00 49 21 97/44 (61) 100 04/15/18 06:00 106/45 04/15/18 06:00 97.8 53 21 106/45 (65) 98 04/15/18 05:00 98.8 52 18 123/65 (84) 95 04/15/18 05:00 122/63 04/15/18 04:00 Nasal Cannula 3.0 04/15/18 04:00 51 04/15/18 04:00 113/64 04/15/18 04:00 51 14 113/64 (80) 99 04/15/18 03:30 67 14 83/43 (56) 98 04/15/18 03:00 51 14 100/54 (69) 100 04/15/18 03:00 101/48 04/15/18 02:30 51 16 101/45 (63) 97 04/15/18 02:00 51 13 103/41 (61) 98 04/15/18 02:00 103/41 04/15/18 01:30 55 25 127/44 (71) 96 04/15/18 01:00 126/49 04/15/18 01:00 51 18 105/52 (69) 95 04/15/18 00:30 53 25 86/23 (44) 96 04/15/18 00:00 56 04/15/18 00:00 Nasal Cannula 3.0 04/15/18 00:00 128/55 04/15/18 00:00 98.6 53 16 118/62 (80) 95 04/14/18 23:30 53 25 122/58 (79) 92 04/14/18 23:00 53 25 122/58 (79) 92 04/14/18 23:00 123/58 04/14/18 22:30 56 21 132/63 (86) 94 04/14/18 22:00 52 25 122/54 (76) 92 04/14/18 22:00 124/60 04/14/18 21:30 59 21 124/60 (81) 96 04/14/18 21:00 126/64 04/14/18 21:00 51 25 126/64 (84) 92 04/14/18 20:45 Nasal Cannula 2.0 28 04/14/18 20:45 98 Nasal Cannula 3.0 32 04/14/18 20:30 49 17 71/25 (40) 95 04/14/18 20:00 98.8 51 13 116/61 (79) 97 04/14/18 20:00 51 04/14/18 20:00 Nasal Cannula 3.0 04/14/18 20:00 79/38 04/14/18 19:30 51 17 119/63 (81) 94 04/14/18 19:00 47 25 125/48 (73) 94 04/14/18 19:00 125/58 04/14/18 18:00 77/54 04/14/18 18:00 48 25 84/43 (57) 94 04/14/18 17:00 44 21 86/34 (51) 95 04/14/18 17:00 83/39 04/14/18 16:00 50 04/14/18 16:00 99.0 46 17 88/40 (56) 98 04/14/18 16:00 88/40 04/14/18 16:00 3.0 04/14/18 16:00 Nasal Cannula 3.0 04/14/18 15:30 55/44 04/14/18 15:00 52 16 90/14 (39) 95 04/14/18 15:00 90/14 04/14/18 14:30 94/71 04/14/18 14:12 98/71 Intake and Output 04/14/18 04/15/18 19:00 07:00 Intake Total 710.577 ml 299.891 ml Output Total 0 ml 30 ml Balance 710.577 ml 269.891 ml Intake Oral 235 ml 30 ml IV Total 475.577 ml 269.891 ml Output Urine Total 0 ml 0 ml Emesis 30 ml # Bowel Movements 4 Laboratory Tests Test 04/15/18 04:10 White Blood Count 5.8 K/UL (4.8-10.8) Red Blood Count 3.97 M/UL (4.20-5.40) L Hemoglobin 12.1 G/DL (12.0-16.0) Hematocrit 37.4 % (37.0-47.0) Mean Corpuscular Volume 94 FL (80-99) Mean Corpuscular Hemoglobin 30.6 PG (27.0-31.0) Mean Corpuscular Hemoglobin Concent 32.5 G/DL (32.0-36.0) Red Cell Distribution Width 14.7 % (11.6-14.8) Platelet Count 149 K/UL (150-450) L Mean Platelet Volume 11.6 FL (6.5-10.1) H Neutrophils (%) (Auto) 67.0 % (45.0-75.0) Lymphocytes (%) (Auto) 22.8 % (20.0-45.0) Monocytes (%) (Auto) 6.1 % (1.0-10.0) Eosinophils (%) (Auto) 3.2 % (0.0-3.0) H Basophils (%) (Auto) 0.8 % (0.0-2.0) Sodium Level 133 MMOL/L (136-145) L Potassium Level 3.8 MMOL/L (3.5-5.1) Chloride Level 91 MMOL/L (98-107) L Carbon Dioxide Level 26 MMOL/L (21-32) Anion Gap 16 mmol/L (5-15) H Blood Urea Nitrogen 44 mg/dL (7-18) H Creatinine 13.1 MG/DL (0.55-1.30) H Estimat Glomerular Filtration Rate 3.6 mL/min (>60) Glucose Level 103 MG/DL (74-106) Calcium Level 7.6 MG/DL (8.5-10.1) L Total Bilirubin 0.5 MG/DL (0.2-1.0) Aspartate Amino Transf (AST/SGOT) 21 U/L (15-37) Alanine Aminotransferase (ALT/SGPT) 13 U/L (12-78) Alkaline Phosphatase 206 U/L (46-116) H C-Reactive Protein, Quantitative 17.6 mg/dL (0.00-0.90) H Total Protein 7.7 G/DL (6.4-8.2) Albumin 2.7 G/DL (3.4-5.0) L Globulin 5.0 g/dL Albumin/Globulin Ratio 0.5 (1.0-2.7) L Cortisol AM Sample Pending Random Vancomycin Level 24.1 ug/mL Microbiology Date/Time Source Procedure Growth Status 04/15/18 04:00 Sputum Induced Gram Stain - Final Resulted 04/15/18 04:00 Sputum Induced Sputum Culture Pending Resulted Tc Liang MD Apr 15, 2018 14:06
--- NOTE | 2018-04-15 14:15 | NUR ---
NURSE NOTES: Tech here to do 2D Echo. pt in no acute distress.
--- NOTE | 2018-04-15 16:21 | NUR ---
NURSE NOTES: pt in bed on phone,able to eat some lunch. brother Gideon called to check in on sister, would like to come visit this evening. pt in no acute distress. will continue to implement plan of care. vss. Bed locked and in low position. Call light in reach.
--- NOTE | 2018-04-15 17:04 | NUR ---
CASE MANAGEMENT: REVIEW SI: ESRD ON HD . PNA T 99.6 HR 52 RR 26 BP 91/40 SAT 90% NC/3L NA 133 BUN 44 CR 13.1 IS: DOXYCYCLINE IV Q12HR MEROPENEM IV Q24HR MIDODRINE PO Q8HR HEPARIN SQ Q12HR PROTONIX PO BID ICU STATUS DCP: PATIENT IS FROM HOME PLAN: 2D ECHO
--- NOTE | 2018-04-15 19:21 | NUR ---
HAND-OFF: Report given to Sung Ashpt in no acute distress.
[2018-04-15] MEDS: Dyna-Hex 2% Top Sol 2oz TOPIC SCH (19:37)
--- NOTE | 2018-04-15 19:55 | NUR ---
NURSE NOTES: PATIENT ASLEEP STATUS, RESPONSE TO NAME, DENIED PAIN OR RESPIRATORY DISTRESS, RESPIRATION REGULAR, ON O2 3 LPM VIA NC, O2 SATURATION OVER 96% NOTED, ABDOMEN SOFT, NO VOIDED, A-V SHUNT TO LEFT ARM, PALPABLE THRILL, BRUIT, PERMA CATH TO RIGHT FEMORAL, INTACT, CLEANED AND DRIED DRESSING STATUS, PERIPHERAL LINE TO RIGHT WRIST AND FORE ARM INTACT AND PATENT, ONGOING DOPAMINE 4MCG/KG/MIN VIA PERMA CATH, MADE LOWER BED POSITION AND PROVIDED CALL LIGHT WITHIN REACH, WILL CONTINUE TO MONITOR.
--- NOTE | 2018-04-15 20:30 | Consultation ---
DATE OF CONSULTATION: 04/15/2018 CARDIOLOGY CONSULTATION CONSULTING PHYSICIAN: Tc Liang M.D. REFERRING PHYSICIAN: Ash Henley M.D. ADDITIONAL REFERRING PHYSICIAN: Fredrick Conner M.D. REASON FOR CONSULTATION: Hypotension and bradycardia. HISTORY OF PRESENT ILLNESS: The patient is a 53-year-old lady with history of hypertension and end-stage renal disease, on hemodialysis, who was brought to the hospital for altered mental status and weakness. The patient was hypotensive and bradycardic, and required dopamine. The chest x-ray was suggestive of pneumonia and was started on IV antibiotic per Dr. Mcbride. The patient also continued to be bradycardic and Cardiology consultation was obtained for further evaluation and management. REVIEW OF SYSTEMS: Negative other than what was mentioned in the history of present illness. PAST MEDICAL HISTORY: Includes: 1. Hypertension. 2. End-stage renal disease, on hemodialysis. 3. Status post AV graft placement. 4. History of cholecystectomy and prior thyroidectomy. FAMILY HISTORY: Noncontributory. PHYSICAL EXAMINATION: VITAL SIGNS: Show blood pressure of 124/54, pulse is 59, respirations 18, and temperature 99.3. HEAD AND NECK: Showed no JVD. LUNGS: Decreased breath sounds. CARDIOVASCULAR: Shows regular S1 and S2. Bradycardic. ABDOMEN: Soft. EXTREMITIES: Well perfused. LABORATORY AND DIAGNOSTIC DATA: EKG showed sinus rhythm with occasional PVCs and T-wave abnormalities suggestive of anterior ischemia. LABORATORY DATA: Show white count of 5.8, hemoglobin 12.1, hematocrit 37.5, and platelet count is 149,000. Sodium 132, potassium 3.8, BUN of 44, creatinine 13.1. INR is 1. BNP is 9000. Troponin 0.058. ASSESSMENT AND PLAN: 1. Troponin elevation, likely due to renal failure. The patient does not have any chest pain. The patient also is hypotensive and it could be also contributing to demand ischemia. Repeat troponin in the morning. 2. Hypotension with likely septic shock. The patient is on pressors as well as midodrine 50 mg every 8 hours in addition to vancomycin and meropenem per Dr. Mcbride. 3. Bradycardia. Keep the patient on dopamine that will help the patient's blood pressure as well. 4. Anterior T-wave inversion. The patient is without any chest pain. At this time, we will repeat cardiac enzymes in the morning and get an echocardiogram. 5. End-stage renal disease, on hemodialysis, per Dr. Conner. Thank you very much, Dr. Henley, for allowing me to participate in the care of this patient. Please do not hesitate to contact me for any questions regarding my evaluation. Tc Liang M.D. DR: Jann JOB#: [id number] CC:
[2018-04-15] MEDS ORDERED: Vancomycin 750mg/NS 250ml IVPB SCH (21:00)
--- NOTE | 2018-04-15 21:55 | NUR ---
NURSE NOTES: NO PAIN OR DISTRESS NOTED AT THIS TIME.
[2018-04-16] VITALS (50 sets, daily range): BP systolic 83–145; BP diastolic 25–96
--- NOTE | 2018-04-16 00:10 | NUR ---
NURSE NOTES: ENCOURAGED REPOSITION, NO ACUTE DISTRESS NOTED.
[2018-04-16] MEDS: guaiFENesin 100mg/5ml Liq ud ORAL PRN (02:07)
--- NOTE | 2018-04-16 02:08 | NUR ---
NURSE NOTES: PATIENT COUGH WITHOUT DISCHARGE, GIVEN ROBITUSSIN 300MG PO PRN FOR COUGH AT 0207AM. GIVEN TYLENOL 650MG PO PRN FOR PAIN 06/26 AT 0208AM, WILL CONTINUE TO MONITOR.
--- NOTE | 2018-04-16 02:16 | NUR ---
NURSE NOTES: VOMITED INDIGESTION MEALS 100ML OUTED THAT GIVEN ZOFRAN 4MG BY IVP VIA PERIPHERAL LINE PRN ORDERED, MADE HOB OVER 45 DEGREE, WILL CONTINUE TO MONITOR.
--- NOTE | 2018-04-16 04:20 | NUR ---
NURSE NOTES: PATIENT SLEEPING STATUS.
[2018-04-16 05:09] LABS: BASOPHILS % (AUTO) 0.8 % (0.0-2.0); EOSINOPHILS % (AUTO) 6.1 % (0.0-3.0); HEMATOCRIT 34.6 % (37.0-47.0); HEMOGLOBIN 11.3 G/DL (12.0-16.0); LYMPHOCYTES % (AUTO) 19.8 % (20.0-45.0); MEAN CORPUSCULAR VOLUME 93 FL (80-99); MONOCYTES % (AUTO) 9.9 % (1.0-10.0); NEUTROPHILS % (AUTO) 63.5 % (45.0-75.0); PLATELET COUNT 176 K/UL (150-450); RED BLOOD COUNT 3.72 M/UL (4.20-5.40); RED CELL DISTRIBUTION WIDTH 14.8 % (11.6-14.8); WHITE BLOOD COUNT 4.4 K/UL (4.8-10.8)
--- NOTE | 2018-04-16 05:30 | NUR ---
NURSE NOTES: NO N/V NOTED, ASLEEP STATUS.
[2018-04-16 05:44] LABS: ALANINE AMINOTRANSFERASE 13 U/L (12-78); ALBUMIN 2.5 G/DL (3.4-5.0); ALBUMIN/GLOBULIN RATIO 0.5 (1.0-2.7); ALKALINE PHOSPHATASE 172 U/L (46-116); ANION GAP 13 mmol/L (5-15); ASPARTATE AMINO TRANSFERASE 16 U/L (15-37); BILIRUBIN,TOTAL 0.5 MG/DL (0.2-1.0); BLOOD UREA NITROGEN 33 mg/dL (7-18); CALCIUM 7.8 MG/DL (8.5-10.1); CARBON DIOXIDE 27 MMOL/L (21-32); CHLORIDE 95 MMOL/L (98-107); CREATININE 11.1 MG/DL (0.55-1.30); PHOSPHORUS 4.3 MG/DL (2.5-4.9); POTASSIUM 3.7 MMOL/L (3.5-5.1); SODIUM 135 MMOL/L (136-145)
[2018-04-16] MEDS: Midodrine 10mg tab ORAL SCH ×3 (05:44→21:11)
--- NOTE | 2018-04-16 06:30 | NUR ---
NURSE NOTES: MORNING CARE WAS DONE, COUGH SIGN WITHOUT DISCHARGE AT THIS TIME, WILL CONTINUE PLAN OF CARE.
--- NOTE | 2018-04-16 07:10 | Cardiology Report ---
APPROVED REPORT EXAM: Two-dimensional and M-mode echocardiogram with Doppler and color Doppler. INDICATION Coronary Artery Disease M-Mode DIMENSIONS IVSd1.2 (0.7-1.1cm)Left Atrium (MM)3.1 (1.6-4.0cm) LVDd5.0 (3.5-5.6cm)Aortic Root2.6 (2.0-3.7cm) PWd0.9 (0.7-1.1cm)Aortic Cusp Exc.1.8 (1.5-2.0cm) LVDs3.5 (2.5-4.0cm) PWs1.2 cm Normal left ventricular chamber size, systolic function and wall motion. Left ventricular ejection fraction estimated to be 60 %. Mild left ventricular hypertrophy. Anterior Echo-free space, may be due to pericardial fat or effusion. All other cardiac chamber sizes are within normal limits. Focal aortic valve sclerosis with adequate cusp excursion. Mildly thickened mitral valve leaflets with normal excursion. Mild mitral annulus and aortic root calcification. Normal pulmonic valve structure. Normal tricuspid valve structure. IVC is normal in size with physiological collapse. A color flow and spectral Doppler study was performed and revealed: No aortic insufficiency. Mild mitral regurgitation. Normal left ventricular diastolic function. Mild tricuspid regurgitation. Tricuspid systolic velocities suggests peak right ventricular systolic pressure of 34 mmHg. No pulmonic regurgitation present.
--- NOTE | 2018-04-16 07:15 | NUR ---
NURSE NOTES: Received report from Sung RN. Pt awake and oriented x4, but fatigued. On monitor vss. 02sat 100% R.A. bilateral radial and pedal pulses weak. 4/5 strength upper and lower extremities. abdomen round, non tender, bowel sounds active in all quadrants. appetite poor. 2 BM. bedside commode in room. pt anuric, bladder flat. Dopamine running @4mcg/kg/hr to PermaCath femoral. RT wrist 20 G intact and patent. SHUKRI AV fistula noted, bruit and thrill noted. bed locked and in low position, side rails x2 up and call light within reach. education on plan of care for today. Will continue to monitor pt.
--- NOTE | 2018-04-16 07:20 | NUR ---
HAND-OFF: Report given to ORALIA/WILLI.
--- NOTE | 2018-04-16 08:00 | NUR ---
NURSE NOTES: ASSISTED PT TO BEDSIDE COMMODE, C/O OF LOOSE STOOLS. SMALL BM, MUCOID IN CONSISTENCY. HR ON MONITOR MULTIFORM PVC'S. BP INCREASED WHEN STANDING. PT TOLERATES ACTIVITY POORLY, BUT INSIST ON USING BEDSIDE COMMODE, STATING BEDPAN TOO UNCOMFORTABLE
[2018-04-16] MEDS: Heparin 5000 units/ml inj SUBQ SCH ×2 (09:29→21:15)
--- NOTE | 2018-04-16 09:32 | Diagnostic Imaging Report ---
EXAM: XR Chest, 1 View CLINICAL HISTORY: INFECT TECHNIQUE: Frontal view of the chest. COMPARISON: No relevant prior studies available. FINDINGS: Lungs: Bilateral airspace opacities, most confluent in the left midlung field. Pleural space: Suspect bilateral pleural effusions. No pneumothorax. Heart: Large cardiac mediastinal silhouette. Mediastinum: Probable hiatal hernia. Bones/joints: No acute fracture. Vasculature: Vascular congestion. Vascular clips left axillary region and neck regions. Tubes, lines and devices: Central line in the right atrium. Dystrophic calcifications in the right axillary region. IMPRESSION: 1. Bilateral airspace opacities, most confluent in the left midlung field. Could be from consolidation/pneumonia. There is a broad differential. Follow to ensure resolution and exclude other mimics. 2. Suspect bilateral pleural effusions. 3. Vascular congestion.
--- NOTE | 2018-04-16 10:26 | NUR ---
NURSE NOTES: CALLED MD LONDON REGARDING PT C/O N/V, AND DIFFICULTLY HEARING FROM BOTH EARS. PT HAD 3 BMS THIS SHIFT, LOOSE STOOL, LIGHT BROWN-ORANGE IN COLOR AND MUCOID CONSISTENCY. AWAITING CALL BACK.
--- NOTE | 2018-04-16 10:39 | NUR ---
NURSE NOTES: RECEIVED CALL BACK, RECEIVED ORDER TO INPUT C-DIFF, STOP DOXYCYCLINE 100MG IN D5W AND VANCO DOSE TO RX. CONTINUE TO MONITOR. MD WILL BE IN TO SEE PT.
--- NOTE | 2018-04-16 10:48 | NUR ---
NURSE NOTES: CALLED MD DESAI TO REPORT DIARRHEA X2 THIS SHIFT, REQUEST C-DIFF ORDER.
--- NOTE | 2018-04-16 12:12 | NUR ---
NURSE NOTES: ASSISTED PT TO BEDSIDE COMMODE, HAD SMALL LOOSE STOOL. HR ON MONITOR SINUS PAUSE. BP INCREASED WHEN STANDING. PT TOLERATES ACTIVITY POORLY, BUT INSIST ON USING BEDSIDE COMMODE, STATING BEDPAN TOO UNCOMFORTABLE,
--- NOTE | 2018-04-16 13:22 | Nephrology Progress Note ---
Assessment/Plan Problem List: (1) ESRD (end stage renal disease) on dialysis (2) Hypotension (3) Encephalopathy Assessment: improved Assessment ESRD on HD HypoThyroidism Periodic Hypotension encephalopathic , metabolic Plan add asa and isordil for rising Troponin HD 04/13 and 04/15- 04/18 per orders midodrine per consultants ? Cardiac eval for low HR Subjective ROS Limited/Unobtainable: No Constitutional: Reports: malaise Objective Objective Last 24 Hour Vital Signs Date Time Temp Pulse Resp B/P (MAP) Pulse Ox O2 Delivery O2 Flow Rate FiO2 04/16/18 12:30 53 23 128/55 (79) 90 04/16/18 12:00 Room Air 3.0 04/16/18 12:00 97.5 55 20 108/45 (66) 92 04/16/18 11:30 49 21 121/46 (71) 92 04/16/18 11:00 57 18 118/46 (70) 92 04/16/18 10:30 58 15 137/44 (75) 91 04/16/18 10:00 56 18 126/55 (78) 96 04/16/18 09:30 55 18 131/58 (82) 96 04/16/18 09:00 46 21 126/40 (68) 91 04/16/18 08:30 46 21 121/42 (68) 90 04/16/18 08:00 55 20 122/50 (74) 93 04/16/18 08:00 47 04/16/18 08:00 Room Air 04/16/18 07:30 97.6 52 18 97/41 (59) 91 04/16/18 07:00 50 20 101/46 (64) 96 04/16/18 07:00 101/46 04/16/18 06:30 54 17 106/44 (64) 93 04/16/18 06:00 73 19 84/55 (65) 91 04/16/18 06:00 84/55 04/16/18 05:30 53 22 124/48 (73) 95 04/16/18 05:00 54 20 107/46 (66) 95 04/16/18 05:00 107/46 04/16/18 04:30 61 21 112/45 (67) 95 04/16/18 04:00 97.8 58 20 113/45 (67) 93 04/16/18 04:00 113/45 04/16/18 04:00 Nasal Cannula 3.0 04/16/18 03:41 58 04/16/18 03:30 52 22 114/31 (58) 93 04/16/18 03:00 128/39 04/16/18 03:00 48 24 128/39 (68) 91 04/16/18 02:30 57 20 114/51 (72) 95 04/16/18 02:00 129/78 04/16/18 02:00 62 16 129/78 (95) 97 04/16/18 01:30 65 20 143/46 (78) 96 04/16/18 01:00 50 21 136/60 (85) 92 04/16/18 01:00 136/60 04/16/18 00:30 45 18 145/47 (79) 96 04/16/18 00:00 98.5 68 21 136/96 (109) 92 04/16/18 00:00 136/96 04/16/18 00:00 Nasal Cannula 3.0 04/15/18 23:30 47 21 126/41 (69) 100 04/15/18 23:26 47 04/15/18 23:00 49 21 113/39 (63) 96 04/15/18 23:00 125/87 04/15/18 22:30 49 22 123/50 (74) 96 04/15/18 22:00 53 16 151/45 (80) 94 04/15/18 22:00 151/45 04/15/18 21:30 55 16 109/77 (88) 95 04/15/18 21:00 85/73 04/15/18 21:00 58 19 85/73 (77) 95 04/15/18 20:30 45 20 85/41 (56) 97 18 20:30 85/41 04/15/18 20:00 Nasal Cannula 3.0 04/15/18 20:00 92/45 04/15/18 20:00 99.0 50 19 92/45 (61) 97 04/15/18 20:00 47 04/15/18 19:30 54 20 96 04/15/18 19:00 51 21 92/41 (58) 95 04/15/18 19:00 92/41 04/15/18 18:00 64 19 114/56 (75) 91 04/15/18 18:00 129/59 04/15/18 17:22 Nasal Cannula 04/15/18 17:19 Nasal Cannula 04/15/18 17:00 99.6 52 23 133/66 (88) 93 04/15/18 16:00 Nasal Cannula 3.0 04/15/18 16:00 54 04/15/18 16:00 99.6 80 23 109/54 (72) 90 04/15/18 15:00 74 23 121/61 (81) 93 04/15/18 14:00 61 26 112/48 (69) 93 Intake and Output 04/15/18 04/16/18 19:00 07:00 Intake Total 613.932 ml 745.859 ml Output Total 700 ml 150 ml Balance -86.068 ml 595.859 ml Intake Oral 120 ml 100 ml IV Total 493.932 ml 515.859 ml Other 130 ml Output Urine Total 0 ml 50 ml Emesis 100 ml Hemodialysis UF 700 ml # Voids 1 # Bowel Movements 5 3 Laboratory Tests 04/16/18 04:40: White Blood Count 4.4L, Red Blood Count 3.72L, Hemoglobin 11.3L, Hematocrit 34.6L, Mean Corpuscular Volume 93, Mean Corpuscular Hemoglobin 30.4, Mean Corpuscular Hemoglobin Concent 32.6, Red Cell Distribution Width 14.8, Platelet Count 176, Mean Platelet Volume 9.9, Neutrophils (%) (Auto) 63.5, Lymphocytes (% ) (Auto) 19.8L, Monocytes (%) (Auto) 9.9, Eosinophils (%) (Auto) 6.1H, Basophils (%) (Auto) 0.8, Sodium Level 135L, Potassium Level 3.7, Chloride Level 95L, Carbon Dioxide Level 27, Anion Gap 13, Blood Urea Nitrogen 33H, Creatinine 11.1H, Estimat Glomerular Filtration Rate 4.4, Glucose Level 90, Uric Acid 5.2, Calcium Level 7.8L, Phosphorus Level 4.3, Magnesium Level 1.7L, Total Bilirubin 0.5, Aspartate Amino Transf (AST/SGOT) 16, Alanine Aminotransferase (ALT/SGPT) 13, Alkaline Phosphatase 172H, Troponin I 0.081H, Pro-B-Type Natriuretic Peptide 9113H, Total Protein 7.1, Albumin 2.5L, Globulin 4.6, Albumin/Globulin Ratio 0.5L, Thyroid Stimulating Hormone (TSH) 0.059L Height (Feet): 5 Height (Inches): 6.00 Weight (Pounds): 205 General Appearance: no apparent distress Cardiovascular: bradycardia Respiratory/Chest: decreased breath sounds Abdomen: soft Fredrick Conner MD Apr 16, 2018 13:22
[2018-04-16] MEDS: DOPamine 400mg/250ml 250 ML IV SCH (13:38)
--- NOTE | 2018-04-16 14:44 | NUR ---
NURSE NOTES: MD HESS HERE TO SE PT. NO NEW ORDERS.
--- NOTE | 2018-04-16 14:53 | Cardiac Electrophysiology PN ---
Assessment/Plan Assessment/Plan 1. Troponin elevation, likely due to renal failure. 0.05 and 0.08. The patient does not have any chest pain. The patient also is hypotensive and it could be also contributing to demand ischemia. 2. Likely septic shock. On Dopamine drip,midodrine 50 mg every 8 hours in addition to vancomycin and meropenem per Dr. Mcbride. 3. Bradycardia. Keep the patient on dopamine 4. Anterior T-wave inversion. The patient is without any chest pain. EF 60% on echocardiogram. 5. End-stage renal disease, on hemodialysis, per Dr. Conner. Subjective Subjective Still on Dopamine drip. HR 50s. Objective Last 24 Hour Vital Signs Date Time Temp Pulse Resp B/P (MAP) Pulse Ox O2 Delivery O2 Flow Rate FiO2 04/16/18 13:38 103/42 04/16/18 13:30 62 20 103/42 (62) 94 04/16/18 13:00 55 21 115/50 (71) 89 04/16/18 12:30 53 23 128/55 (79) 90 04/16/18 12:00 Room Air 3.0 04/16/18 12:00 97.5 55 20 108/45 (66) 92 04/16/18 11:30 49 21 121/46 (71) 92 04/16/18 11:00 57 18 118/46 (70) 92 04/16/18 10:30 58 15 137/44 (75) 91 04/16/18 10:00 56 18 126/55 (78) 96 04/16/18 09:30 55 18 131/58 (82) 96 04/16/18 09:00 46 21 126/40 (68) 91 04/16/18 08:30 46 21 121/42 (68) 90 04/16/18 08:00 55 20 122/50 (74) 93 04/16/18 08:00 47 04/16/18 08:00 Room Air 04/16/18 07:30 97.6 52 18 97/41 (59) 91 04/16/18 07:00 50 20 101/46 (64) 96 04/16/18 07:00 101/46 04/16/18 06:30 54 17 106/44 (64) 93 04/16/18 06:00 73 19 84/55 (65) 91 04/16/18 06:00 84/55 04/16/18 05:30 53 22 124/48 (73) 95 04/16/18 05:00 54 20 107/46 (66) 95 04/16/18 05:00 107/46 04/16/18 04:30 61 21 112/45 (67) 95 04/16/18 04:00 97.8 58 20 113/45 (67) 93 04/16/18 04:00 113/45 04/16/18 04:00 Nasal Cannula 3.0 04/16/18 03:41 58 04/16/18 03:30 52 22 114/31 (58) 93 04/16/18 03:00 128/39 04/16/18 03:00 48 24 128/39 (68) 91 04/16/18 02:30 57 20 114/51 (72) 95 04/16/18 02:00 129/78 04/16/18 02:00 62 16 129/78 (95) 97 04/16/18 01:30 65 20 143/46 (78) 96 04/16/18 01:00 50 21 136/60 (85) 92 04/16/18 01:00 136/60 04/16/18 00:30 45 18 145/47 (79) 96 04/16/18 00:00 98.5 68 21 136/96 (109) 92 04/16/18 00:00 136/96 04/16/18 00:00 Nasal Cannula 3.0 04/15/18 23:30 47 21 126/41 (69) 100 04/15/18 23:26 47 04/15/18 23:00 49 21 113/39 (63) 96 04/15/18 23:00 125/87 04/15/18 22:30 49 22 123/50 (74) 96 04/15/18 22:00 53 16 151/45 (80) 94 04/15/18 22:00 151/45 04/15/18 21:30 55 16 109/77 (88) 95 04/15/18 21:00 85/73 04/15/18 21:00 58 19 85/73 (77) 95 04/15/18 20:30 45 20 85/41 (56) 97 04/15/18 20:30 85/41 04/15/18 20:00 Nasal Cannula 3.0 04/15/18 20:00 92/45 04/15/18 20:00 99.0 50 19 92/45 (61) 97 04/15/18 20:00 47 04/15/18 19:30 54 20 96 04/15/18 19:00 51 21 92/41 (58) 95 04/15/18 19:00 92/41 04/15/18 18:00 64 19 114/56 (75) 91 04/15/18 18:00 129/59 04/15/18 17:22 Nasal Cannula 04/15/18 17:19 Nasal Cannula 04/15/18 17:00 99.6 52 23 133/66 (88) 93 04/15/18 16:00 Nasal Cannula 3.0 04/15/18 16:00 54 04/15/18 16:00 99.6 80 23 109/54 (72) 90 04/15/18 15:00 74 23 121/61 (81) 93 Intake and Output 04/15/18 04/16/18 19:00 07:00 Intake Total 613.932 ml 745.859 ml Output Total 700 ml 150 ml Balance -86.068 ml 595.859 ml Intake Oral 120 ml 100 ml IV Total 493.932 ml 515.859 ml Other 130 ml Output Urine Total 0 ml 50 ml Emesis 100 ml Hemodialysis UF 700 ml # Voids 1 # Bowel Movements 5 3 Laboratory Tests Test 04/16/18 04:40 White Blood Count 4.4 K/UL (4.8-10.8) L Red Blood Count 3.72 M/UL (4.20-5.40) L Hemoglobin 11.3 G/DL (12.0-16.0) L Hematocrit 34.6 % (37.0-47.0) L Mean Corpuscular Volume 93 FL (80-99) Mean Corpuscular Hemoglobin 30.4 PG (27.0-31.0) Mean Corpuscular Hemoglobin Concent 32.6 G/DL (32.0-36.0) Red Cell Distribution Width 14.8 % (11.6-14.8) Platelet Count 176 K/UL (150-450) Mean Platelet Volume 9.9 FL (6.5-10.1) Neutrophils (%) (Auto) 63.5 % (45.0-75.0) Lymphocytes (%) (Auto) 19.8 % (20.0-45.0) L Monocytes (%) (Auto) 9.9 % (1.0-10.0) Eosinophils (%) (Auto) 6.1 % (0.0-3.0) H Basophils (%) (Auto) 0.8 % (0.0-2.0) Sodium Level 135 MMOL/L (136-145) L Potassium Level 3.7 MMOL/L (3.5-5.1) Chloride Level 95 MMOL/L (98-107) L Carbon Dioxide Level 27 MMOL/L (21-32) Anion Gap 13 mmol/L (5-15) Blood Urea Nitrogen 33 mg/dL (7-18) H Creatinine 11.1 MG/DL (0.55-1.30) H Estimat Glomerular Filtration Rate 4.4 mL/min (>60) Glucose Level 90 MG/DL (74-106) Uric Acid 5.2 MG/DL (2.6-7.2) Calcium Level 7.8 MG/DL (8.5-10.1) L Phosphorus Level 4.3 MG/DL (2.5-4.9) Magnesium Level 1.7 MG/DL (1.8-2.4) L Total Bilirubin 0.5 MG/DL (0.2-1.0) Aspartate Amino Transf (AST/SGOT) 16 U/L (15-37) Alanine Aminotransferase (ALT/SGPT) 13 U/L (12-78) Alkaline Phosphatase 172 U/L (46-116) H Troponin I 0.081 ng/mL (0.000-0.056) Pro-B-Type Natriuretic Peptide 9113 pg/mL (0-125) H Total Protein 7.1 G/DL (6.4-8.2) Albumin 2.5 G/DL (3.4-5.0) L Globulin 4.6 g/dL Albumin/Globulin Ratio 0.5 (1.0-2.7) L Thyroid Stimulating Hormone (TSH) 0.059 uiU/mL (0.358-3.740) Microbiology Date/Time Source Procedure Growth Status 04/15/18 04:00 Sputum Induced Gram Stain - Final Resulted 04/15/18 04:00 Sputum Induced Sputum Culture Pending Resulted Objective HEAD AND NECK: Showed no JVD. LUNGS: Decreased breath sounds. CARDIOVASCULAR: Shows regular S1 and S2. Bradycardic. ABDOMEN: Soft. EXTREMITIES: Well perfused. Tc Liang MD Apr 16, 2018 14:53
--- NOTE | 2018-04-16 16:30 | NUR ---
NURSE NOTES: pt in bed on phone, able to eat some dinner. brother Gideon at bedside, pt in no acute distress. will continue to implement plan of care. vss. Bed locked and in low position. Call light in reach.
--- NOTE | 2018-04-16 16:31 | Infectious Diseases Prog Note ---
Assessment/Plan Assessment/Plan ASSESSMENT: 1. sepsis, shock, pneumonia, CT chest noted, pressors, bradycardia - - continue meropenem and doxycycline - discontinue vancomycin secondary to change in hearing even only been on short period of time which makes ototoxicity less likely - f/u on sputum culture - monitor labs and chest x-ray, f/u on serology - icu care, pressors less - d/w pharmacy about antibiotics 2. End-stage renal disease, hemodialysis, has a right femoral line hemodialysis line and also left arm graft. 3. History of fistula in the past. 4. History of PermCath in the past 5. Anemia of chronic disease. 6. Hypertension - Blood pressure treatment per primary. 7. No history of diabetes mentioned. 8. Chronic kidney disease. 9. Obesity. 10. History of cholecystectomy. 11. History of parathyroidectomy. 12. History of carpal tunnel syndrome. 13. History of fractures, ORIF. 14. Past medical history noted. 15. Multiple drug allergies including cefazolin, Cipro, contrast media, gentamicin, ketamine, Levaquin and penicillin, she seems to tolerate carbapenems. 16. Social history is negative . 17. Family history is noncontributory. 18. MAR was noted. 19. Case discussed with RN. 20. Continue treatment per primary consultants. 21. Notes were noted and orders were entered. Subjective Constitutional: Reports: fatigue, other - less sob, alert ; Denies: fever HEENT: Reports: hearing change - says hearing worse but can hear me well; Denies: congestion Respiratory: Denies: shortness of breath Cardiovascular: Denies: chest pain Gastrointestinal/Abdominal: Reports: nausea; Denies: vomiting, diarrhea Genitourinary: Reports: other Neurologic: Denies: headache Psychiatric: Denies: depression Skin: Denies: rash Hematologic: Denies: bleeding Musculoskeletal: Denies: pain Allergies: Coded Allergies: CEFAZOLIN (Verified Allergy, Unknown, 10/02/10) CIPROFLOXACIN (Verified Allergy, Unknown, 10/02/10) GENTAMICIN (Verified Allergy, Unknown, 10/02/10) KETAMINE (Verified Allergy, Unknown, 03/29/18) LEVOFLOXACIN (Verified Allergy, Unknown, 10/02/10) PENICILLINS (Verified Allergy, Unknown, ITCH, 10/02/10) Uncoded Allergies: CONTRAST MEDIA (Adverse Reaction, Mild, MILD ITCHING AFTER CONTRAST MEDIA, 04/30/17) Objective Vital Signs Last 24 Hour Vital Signs Date Time Temp Pulse Resp B/P (MAP) Pulse Ox O2 Delivery O2 Flow Rate FiO2 04/16/18 16:00 Room Air 3.0 04/16/18 16:00 59 18 123/51 (75) 97 04/16/18 15:30 59 19 115/52 (73) 100 04/16/18 15:16 100/43 04/16/18 15:00 51 22 98/38 (58) 100 04/16/18 14:30 98.9 54 25 113/54 (73) 99 04/16/18 14:15 79 26 97/57 (70) 88 04/16/18 14:00 61 15 106/38 (60) 91 04/16/18 13:38 103/42 04/16/18 13:30 62 20 103/42 (62) 94 04/16/18 13:00 55 21 115/50 (71) 89 04/16/18 12:30 53 23 128/55 (79) 90 04/16/18 12:00 74 04/16/18 12:00 Room Air 3.0 04/16/18 12:00 97.5 55 20 108/45 (66) 92 04/16/18 11:30 49 21 121/46 (71) 92 04/16/18 11:00 57 18 118/46 (70) 92 04/16/18 10:30 58 15 137/44 (75) 91 04/16/18 10:00 56 18 126/55 (78) 96 04/16/18 09:30 55 18 131/58 (82) 96 04/16/18 09:00 46 21 126/40 (68) 91 04/16/18 08:30 46 21 121/42 (68) 90 04/16/18 08:00 55 20 122/50 (74) 93 04/16/18 08:00 47 04/16/18 08:00 Room Air 04/16/18 07:30 97.6 52 18 97/41 (59) 91 04/16/18 07:00 50 20 101/46 (64) 96 04/16/18 07:00 101/46 04/16/18 06:30 54 17 106/44 (64) 93 04/16/18 06:00 73 19 84/55 (65) 91 04/16/18 06:00 84/55 04/16/18 05:30 53 22 124/48 (73) 95 04/16/18 05:00 54 20 107/46 (66) 95 04/16/18 05:00 107/46 04/16/18 04:30 61 21 112/45 (67) 95 04/16/18 04:00 97.8 58 20 113/45 (67) 93 04/16/18 04:00 113/45 04/16/18 04:00 Nasal Cannula 3.0 04/16/18 03:41 58 04/16/18 03:30 52 22 114/31 (58) 93 04/16/18 03:00 128/39 04/16/18 03:00 48 24 128/39 (68) 91 04/16/18 02:30 57 20 114/51 (72) 95 04/16/18 02:00 129/78 04/16/18 02:00 62 16 129/78 (95) 97 04/16/18 01:30 65 20 143/46 (78) 96 04/16/18 01:00 50 21 136/60 (85) 92 04/16/18 01:00 136/60 04/16/18 00:30 45 18 145/47 (79) 96 04/16/18 00:00 98.5 68 21 136/96 (109) 92 04/16/18 00:00 136/96 04/16/18 00:00 Nasal Cannula 3.0 04/15/18 23:30 47 21 126/41 (69) 100 04/15/18 23:26 47 04/15/18 23:00 49 21 113/39 (63) 96 04/15/18 23:00 125/87 04/15/18 22:30 49 22 123/50 (74) 96 04/15/18 22:00 53 16 151/45 (80) 94 04/15/18 22:00 151/45 04/15/18 21:30 55 16 109/77 (88) 95 04/15/18 21:00 85/73 04/15/18 21:00 58 19 85/73 (77) 95 04/15/18 20:30 45 20 85/41 (56) 97 04/15/18 20:30 85/41 04/15/18 20:00 Nasal Cannula 3.0 04/15/18 20:00 92/45 04/15/18 20:00 99.0 50 19 92/45 (61) 97 04/15/18 20:00 47 04/15/18 19:30 54 20 96 04/15/18 19:00 51 21 92/41 (58) 95 04/15/18 19:00 92/41 04/15/18 18:00 64 19 114/56 (75) 91 04/15/18 18:00 129/59 04/15/18 17:22 Nasal Cannula 04/15/18 17:19 Nasal Cannula 04/15/18 17:00 99.6 52 23 133/66 (88) 93 Height (Feet): 5 Height (Inches): 6.00 Weight (Pounds): 205 General Appearance: no acute distress HEENT: normocephalic, atraumatic, anicteric, mucous membranes moist, supple, no JVD, other - can hear my finger snapping bilateral ears well Respiratory/Chest: crackles/rales, rhonchi - bilaterally Cardiovascular: normal rate, regular rhythm, no gallop/murmur, no JVD Abdomen: normal bowel sounds, soft, non tender, no organomegaly, non distended Genitourinary: other - no mckinney, no cva pain Extremities: no cyanosis Skin: no rash Neurologic/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 Follow-up after appropriate treatment recommended to ensure resolution. * Patchy opacities in the right upper lobe are also likely infectious in etiology. These obscure the previously described lung nodule. Attention to this area on follow-up recommended. * Prominent hilar and mediastinal lymph nodes, possibly reactive in etiology. * Small bilateral pleural effusions. * Large hiatal hernia * Dialysis catheter tip in the right atrium. Evidence of central venous occlusion with multiple collateral veins noted in the mediastinum. * Nonspecific calcifications in the bilateral breasts are correlation with most recent mammogram recommended. If none performed recently, then recommend follow- up screening mammogram. * Findings suggestive of renal osteodystrophy Chest x-ray - 04/14 - Findings: Heart size and mediastinal contours stable. Femoral approach dialysis catheter is again noted. Multiple surgical clips noted in the bilateral axilla. Portions of a stents again visualized in the right axilla. Multiple surgical clips noted in the right arm. Personnel Adviser opacities in the left midlung peripherally. No evidence of pneumothorax. There is patchy opacity at the right base. Osseous structures stable. Calcifications in the right breast noted. Impression: Left-sided airspace opacities most concerning for pneumonia. There is slight interval increased density compared to prior exam which may be technical. 04/16/18 - chest x-ray - IMPRESSION: 1. Bilateral airspace opacities, most confluent in the left midlung field. Could be from consolidation/pneumonia. There is a broad differential. Follow to ensure resolution and exclude other mimics. 2. Suspect bilateral pleural effusions. 3. Vascular congestion. Microbiology Date/Time Source Procedure Growth Status 04/15/18 04:00 Sputum Induced Gram Stain - Final Resulted 04/15/18 04:00 Sputum Induced Sputum Culture Pending Resulted Laboratory Tests Test 04/16/18 04:40 White Blood Count 4.4 K/UL (4.8-10.8) L Red Blood Count 3.72 M/UL (4.20-5.40) L Hemoglobin 11.3 G/DL (12.0-16.0) L Hematocrit 34.6 % (37.0-47.0) L Mean Corpuscular Volume 93 FL (80-99) Mean Corpuscular Hemoglobin 30.4 PG (27.0-31.0) Mean Corpuscular Hemoglobin Concent 32.6 G/DL (32.0-36.0) Red Cell Distribution Width 14.8 % (11.6-14.8) Platelet Count 176 K/UL (150-450) Mean Platelet Volume 9.9 FL (6.5-10.1) Neutrophils (%) (Auto) 63.5 % (45.0-75.0) Lymphocytes (%) (Auto) 19.8 % (20.0-45.0) L Monocytes (%) (Auto) 9.9 % (1.0-10.0) Eosinophils (%) (Auto) 6.1 % (0.0-3.0) H Basophils (%) (Auto) 0.8 % (0.0-2.0) Sodium Level 135 MMOL/L (136-145) L Potassium Level 3.7 MMOL/L (3.5-5.1) Chloride Level 95 MMOL/L (98-107) L Carbon Dioxide Level 27 MMOL/L (21-32) Anion Gap 13 mmol/L (5-15) Blood Urea Nitrogen 33 mg/dL (7-18) H Creatinine 11.1 MG/DL (0.55-1.30) H Estimat Glomerular Filtration Rate 4.4 mL/min (>60) Glucose Level 90 MG/DL (74-106) Uric Acid 5.2 MG/DL (2.6-7.2) Calcium Level 7.8 MG/DL (8.5-10.1) L Phosphorus Level 4.3 MG/DL (2.5-4.9) Magnesium Level 1.7 MG/DL (1.8-2.4) L Total Bilirubin 0.5 MG/DL (0.2-1.0) Aspartate Amino Transf (AST/SGOT) 16 U/L (15-37) Alanine Aminotransferase (ALT/SGPT) 13 U/L (12-78) Alkaline Phosphatase 172 U/L (46-116) H Troponin I 0.081 ng/mL (0.000-0.056) Pro-B-Type Natriuretic Peptide 9113 pg/mL (0-125) H Total Protein 7.1 G/DL (6.4-8.2) Albumin 2.5 G/DL (3.4-5.0) L Globulin 4.6 g/dL Albumin/Globulin Ratio 0.5 (1.0-2.7) L Thyroid Stimulating Hormone (TSH) 0.059 uiU/mL (0.358-3.740) Current Medications Medications (Trade) Dose Ordered Sig/Marcos Route PRN Reason Start Time Stop Time Status Last Admin Dose Admin Acetaminophen (Tylenol) 650 mg Q6H PRN ORAL Mild Pain/Temp > 100.5 04/12/18 17:45 05/12/18 17:44 04/16/18 02:08 Aspirin (ASA) 81 mg DAILY ORAL 04/17/18 09:00 05/17/18 08:59 Chlorhexidine Gluconate (Nivia-Hex 2%) 1 applic DAILY@1999 TOPIC 04/13/18 20:00 05/13/18 19:59 04/15/18 19:37 Dopamine HCl/ Dextrose 250 ml @ 0 mls/hr Q24H IV 04/12/18 15:45 05/12/18 15:44 04/16/18 13:38 Guaifenesin (Robitussin) 300 mg Q6H PRN ORAL For Cough 04/14/18 17:00 05/14/18 16:59 04/16/18 02:07 Heparin Sodium (Porcine) (Heparin 5000 units/ml) 5,000 units EVERY 12 HOURS SUBQ 04/12/18 21:00 05/12/18 20:59 04/16/18 09:29 Isosorbide Dinitrate (Isordil) 10 mg TID ORAL 04/16/18 18:00 05/16/18 17:59 Meropenem 500 mg/ Sodium Chloride 50 ml @ 100 mls/hr Q24HRS IVPB 04/13/18 14:00 04/18/18 13:59 04/16/18 15:14 Midodrine (Pro-Amatine) 15 mg Q8HR ORAL 04/15/18 14:00 05/12/18 21:59 04/16/18 15:16 Ondansetron HCl (Zofran) 4 mg Q4H PRN IVP Nausea & Vomiting 04/12/18 17:45 05/12/18 17:44 04/16/18 09:24 Pantoprazole (Protonix) 40 mg BID ORAL 04/12/18 18:00 05/12/18 17:59 04/16/18 09:24 Sevelamer Carbonate (Renvela) 800 mg THREE TIMES A DAY ORAL 04/14/18 18:00 05/13/18 08:59 04/16/18 09:24 Zolpidem Tartrate (Ambien) 5 mg QHS PRN ORAL INSOMNIA 04/12/18 23:15 04/19/18 23:14 04/14/18 23:01 Edgardo Mcbride MD Apr 16, 2018 16:31
--- NOTE | 2018-04-16 17:04 | Internal Med Progress Note ---
Subjective Date of Service: Apr 16, 2018 Physician Name Edward Harrell Attending Physician Ash Henley MD Current Medications Medications (Trade) Dose Ordered Sig/Marcos Route PRN Reason Start Time Stop Time Status Last Admin Dose Admin Acetaminophen (Tylenol) 650 mg Q6H PRN ORAL Mild Pain/Temp > 100.5 04/12/18 17:45 05/12/18 17:44 04/16/18 02:08 Aspirin (ASA) 81 mg DAILY ORAL 04/17/18 09:00 05/17/18 08:59 Chlorhexidine Gluconate (Nivia-Hex 2%) 1 applic DAILY@2000 TOPIC 04/13/18 20:00 05/13/18 19:59 04/15/18 19:37 Dopamine HCl/ Dextrose 250 ml @ 0 mls/hr Q24H IV 04/12/18 15:45 05/12/18 15:44 04/16/18 13:38 Doxycycline Hyclate 100 mg/ Dextrose 100 ml @ 100 mls/hr Q12HR IV 04/16/18 21:00 04/23/18 20:59 Guaifenesin (Robitussin) 300 mg Q6H PRN ORAL For Cough 04/14/18 17:00 05/14/18 16:59 04/16/18 02:07 Heparin Sodium (Porcine) (Heparin 5000 units/ml) 5,000 units EVERY 12 HOURS SUBQ 04/12/18 21:00 05/12/18 20:59 04/16/18 09:29 Isosorbide Dinitrate (Isordil) 10 mg TID ORAL 04/16/18 18:00 05/16/18 17:59 Meropenem 500 mg/ Sodium Chloride 50 ml @ 100 mls/hr Q24HRS IVPB 04/16/18 16:45 04/21/18 16:44 UNV Midodrine (Pro-Amatine) 15 mg Q8HR ORAL 04/15/18 14:00 05/12/18 21:59 04/16/18 15:16 Ondansetron HCl (Zofran) 4 mg Q4H PRN IVP Nausea & Vomiting 04/12/18 17:45 05/12/18 17:44 04/16/18 16:16 Pantoprazole (Protonix) 40 mg BID ORAL 04/12/18 18:00 05/12/18 17:59 04/16/18 09:24 Sevelamer Carbonate (Renvela) 800 mg THREE TIMES A DAY ORAL 04/14/18 18:00 05/13/18 08:59 04/16/18 09:24 Zolpidem Tartrate (Ambien) 5 mg QHS PRN ORAL INSOMNIA 04/12/18 23:15 04/19/18 23:14 04/14/18 23:01 Allergies: Coded Allergies: CEFAZOLIN (Verified Allergy, Unknown, 10/02/10) CIPROFLOXACIN (Verified Allergy, Unknown, 10/02/10) GENTAMICIN (Verified Allergy, Unknown, 10/02/10) KETAMINE (Verified Allergy, Unknown, 03/29/18) LEVOFLOXACIN (Verified Allergy, Unknown, 10/02/10) PENICILLINS (Verified Allergy, Unknown, ITCH, 10/02/10) Uncoded Allergies: CONTRAST MEDIA (Adverse Reaction, Mild, MILD ITCHING AFTER CONTRAST MEDIA, 04/30/17) ROS Limited/Unobtainable: Yes Subjective 53 YO F admitted with shortness of breath. Now pneumonia. Cover for Int Med- Dr Henley. ICU Objective Last Vital Signs Date Time Temp Pulse Resp B/P (MAP) Pulse Ox O2 Delivery O2 Flow Rate FiO2 04/16/18 16:30 60 19 115/47 (69) 95 04/16/18 16:00 Room Air 3.0 04/16/18 14:30 98.9 04/14/18 20:45 28 Laboratory Tests Test 04/16/18 04:40 White Blood Count 4.4 K/UL (4.8-10.8) L Red Blood Count 3.72 M/UL (4.20-5.40) L Hemoglobin 11.3 G/DL (12.0-16.0) L Hematocrit 34.6 % (37.0-47.0) L Mean Corpuscular Volume 93 FL (80-99) Mean Corpuscular Hemoglobin 30.4 PG (27.0-31.0) Mean Corpuscular Hemoglobin Concent 32.6 G/DL (32.0-36.0) Red Cell Distribution Width 14.8 % (11.6-14.8) Platelet Count 176 K/UL (150-450) Mean Platelet Volume 9.9 FL (6.5-10.1) Neutrophils (%) (Auto) 63.5 % (45.0-75.0) Lymphocytes (%) (Auto) 19.8 % (20.0-45.0) L Monocytes (%) (Auto) 9.9 % (1.0-10.0) Eosinophils (%) (Auto) 6.1 % (0.0-3.0) H Basophils (%) (Auto) 0.8 % (0.0-2.0) Sodium Level 135 MMOL/L (136-145) L Potassium Level 3.7 MMOL/L (3.5-5.1) Chloride Level 95 MMOL/L (98-107) L Carbon Dioxide Level 27 MMOL/L (21-32) Anion Gap 13 mmol/L (5-15) Blood Urea Nitrogen 33 mg/dL (7-18) H Creatinine 11.1 MG/DL (0.55-1.30) H Estimat Glomerular Filtration Rate 4.4 mL/min (>60) Glucose Level 90 MG/DL (74-106) Uric Acid 5.2 MG/DL (2.6-7.2) Calcium Level 7.8 MG/DL (8.5-10.1) L Phosphorus Level 4.3 MG/DL (2.5-4.9) Magnesium Level 1.7 MG/DL (1.8-2.4) L Total Bilirubin 0.5 MG/DL (0.2-1.0) Aspartate Amino Transf (AST/SGOT) 16 U/L (15-37) Alanine Aminotransferase (ALT/SGPT) 13 U/L (12-78) Alkaline Phosphatase 172 U/L (46-116) H Troponin I 0.081 ng/mL (0.000-0.056) Pro-B-Type Natriuretic Peptide 9113 pg/mL (0-125) H Total Protein 7.1 G/DL (6.4-8.2) Albumin 2.5 G/DL (3.4-5.0) L Globulin 4.6 g/dL Albumin/Globulin Ratio 0.5 (1.0-2.7) L Thyroid Stimulating Hormone (TSH) 0.059 uiU/mL (0.358-3.740) Microbiology Date/Time Source Procedure Growth Status 04/15/18 04:00 Sputum Induced Gram Stain - Final Resulted 04/15/18 04:00 Sputum Induced Sputum Culture Pending Resulted Intake and Output 04/15/18 04/16/18 19:00 07:00 Intake Total 613.932 ml 745.859 ml Output Total 700 ml 150 ml Balance -86.068 ml 595.859 ml Intake Oral 120 ml 100 ml IV Total 493.932 ml 515.859 ml Other 130 ml Output Urine Total 0 ml 50 ml Emesis 100 ml Hemodialysis UF 700 ml # Voids 1 # Bowel Movements 5 3 Objective Objective GENERAL: Awake, responsive, alert HEAD AND NECK: Pupils equal and reactive to light. Extraocular movements intact. Neck was supple. No JVD. LUNGS: Fair air entry. Poor respiratory effort. No wheeze or rhonchi. Decreased air in the bases. HEART: S1 and S2. Distant heart sounds. No murmur. ABDOMEN: Soft, nondistended, and nontender. Morbidly obese. EXTREMITIES: No cyanosis, clubbing, or edema. Right femoral area PermCath as well as left upper extremity AV fistula, functional. NEUROLOGIC: Cranial nerves II through XII are grossly intact. The patient is moving all the extremities spontaneously. Gait was not assessed due to the patient's status. PSYCHIATRIC: Mood and affect are intact. Assessment/Plan Assessment/Plan Assessment/Plan Assessment/Plan 1. Sepsis, most likely secondary to left upper lobe and, to a lesser extent, medial right lower lobe most likely representing multifocal pneumonia. 2. Hypotension, possible septic shock. 3. Pancytopenia with severe thrombocytopenia resolving. 4. End-stage renal disease, on hemodialysis. 5. Altered mental status, most likely toxic metabolic encephalopathy as a result of infection as well as uremia. 6. Anemia of chronic kidney disease. 7. Morbid obesity. 8. Bradycardia. PLAN: In ICU. follow up laboratory and cultures. Dr. Fredrick Conner from Nephrology consult; next hemodialysis 04/18/18. Dr. Mcbride from ID consult. Discussed with the family member, brother at the bedside. Abx: Vancomycin, Meropenem, Azithromycin Code status is Full Code. DVT prophylaxis: heparin subcutaneous. Wean off Dopamine Drip CT of chest noted. Cortisol level Pending. Edward Harrell MD Apr 16, 2018 17:04
[2018-04-16] MEDS ORDERED: NS 275ml ONE (17:33)
--- NOTE | 2018-04-16 19:30 | NUR ---
NURSE NOTES: Received report from Morgan Garcia RN. Pt awake and oriented x4 able to verbalize needs known to staff. HOB elevated. No s/s of hypo/hypertension. On 2L oxygen via N/C satting 97%. SR on the monitor. bedside commode at bedside. pt anuric. Dopamine running @2mcg/kg/hr to Right femoral double lumen. RT wrist 20 G intact and patent. SHUKRI AV shunt with + bruit and thrill. Instructed patient to use call light for assistance. bed locked and in low position, side rails x2 up and call light within reach. Will continue to monitor pt.
--- NOTE | 2018-04-16 19:39 | NUR ---
HAND-OFF: Report given to alfredo. pt in no acute distress
[2018-04-16] MEDS: Dyna-Hex 2% Top Sol 2oz TOPIC SCH (21:10)
--- NOTE | 2018-04-16 21:30 | NUR ---
NURSE NOTES: Assisted to bedside commode with small soft bowel movement. Kept clean and dry.
--- NOTE | 2018-04-16 23:30 | NUR ---
NURSE NOTES: Assisted to Bedside commode with little bowel movement and gas, kept clean and dry.
[2018-04-17] VITALS (34 sets, daily range): BP systolic 1–121; BP diastolic 33–77
--- NOTE | 2018-04-17 01:30 | NUR ---
NURSE NOTES: Patient with medium lose mucus bowel movement, kept clean and dry. Patient awake,alert no acute distress noted.
--- NOTE | 2018-04-17 03:30 | NUR ---
NURSE NOTES: Assisted to Bedside commode. Bed bath given tolerated well. No s/s of acute distress noted.
[2018-04-17] MEDS: Midodrine 10mg tab ORAL SCH ×3 (05:08→21:56)
--- NOTE | 2018-04-17 05:30 | NUR ---
NURSE NOTES: Patient awake,alert able to make needs known to staff. On 2 Liters oxygen via N/C satting 98%. Call light within easy reach. Assisted patient to bedside commode with med lose bm. No s/s of cardiac and acute distress noted. Will continue plan of care.
[2018-04-17 05:55] LABS: BASOPHILS % (AUTO) 0.8 % (0.0-2.0); HEMATOCRIT 33.7 % (37.0-47.0); HEMOGLOBIN 11.1 G/DL (12.0-16.0); LYMPHOCYTES % (AUTO) 24.6 % (20.0-45.0); MEAN CORPUSCULAR VOLUME 93 FL (80-99); MONOCYTES % (AUTO) 7.6 % (1.0-10.0); PLATELET COUNT 224 K/UL (150-450); RED BLOOD COUNT 3.62 M/UL (4.20-5.40); RED CELL DISTRIBUTION WIDTH 14.7 % (11.6-14.8); WHITE BLOOD COUNT 4.9 K/UL (4.8-10.8)
[2018-04-17 06:19] LABS: ANION GAP 14 mmol/L (5-15); BLOOD UREA NITROGEN 41 mg/dL (7-18); CALCIUM 8.1 MG/DL (8.5-10.1); CARBON DIOXIDE 26 MMOL/L (21-32); CHLORIDE 94 MMOL/L (98-107); CREATININE 12.3 MG/DL (0.55-1.30); POTASSIUM 3.7 MMOL/L (3.5-5.1); SODIUM 134 MMOL/L (136-145)
--- NOTE | 2018-04-17 07:24 | NUR ---
HAND-OFF: Report given to WILLI Chicas.
--- NOTE | 2018-04-17 08:02 | NUR ---
NURSE NOTES: Pt awake in bed when received.Report was received from WILLI Crespo. On dopamine drip at 2mcg/hr and SBP 82 at this time.Able to self repositioned. Peripheral line right forearm and right femoral double lumen patent and dressing dry and intact.SHUKRI AV shunt,bruit and thrill failed.Anuric and refused breakfast, pt is low potassium diet but requesting food high in potassium.Kitchen called and offered alternative but pt still refusing. Will continue to monitor.
[2018-04-17] MEDS: Aspirin Baby 81mg ORAL SCH (08:10)
[2018-04-17] MEDS: Heparin 5000 units/ml inj SUBQ SCH ×2 (08:12→20:41)
--- NOTE | 2018-04-17 10:16 | Nephrology Progress Note ---
Assessment/Plan Problem List: (1) ESRD (end stage renal disease) on dialysis (2) Hypotension (3) Encephalopathy Assessment: improved Assessment ESRD on HD HypoThyroidism Periodic Hypotension encephalopathic , metabolic Plan add asa and isordil for rising Troponin HD 04/13 and 04/15- next later today or 04/18 per orders midodrine per consultants ? Cardiac eval for low HR Subjective ROS Limited/Unobtainable: No Constitutional: Reports: malaise Objective Objective Last 24 Hour Vital Signs Date Time Temp Pulse Resp B/P (MAP) Pulse Ox O2 Delivery O2 Flow Rate FiO2 04/17/18 08:18 80/33 04/17/18 07:00 62 87/37 (54) 98 04/17/18 06:30 62 20 116/40 (65) 99 04/17/18 06:00 58 17 99/77 (84) 98 04/17/18 05:30 62 20 116/40 (65) 99 04/17/18 05:00 72 22 104/34 (57) 96 04/17/18 04:30 58 18 121/49 (73) 93 04/17/18 04:00 55 04/17/18 04:00 Room Air 3.0 04/17/18 04:00 101/49 04/17/18 04:00 98.0 64 22 101/49 (66) 92 04/17/18 03:30 52 22 108/52 (70) 90 04/17/18 03:00 64 20 109/52 (71) 96 04/17/18 03:00 109/52 04/17/18 02:30 62 18 90/57 (68) 92 04/17/18 02:00 109/45 04/17/18 02:00 54 23 109/45 (66) 94 04/17/18 01:30 57 15 81/67 (72) 93 04/17/18 01:00 49 25 84/52 (63) 93 04/17/18 01:00 84/52 04/17/18 00:30 52 22 108/42 (64) 98 04/17/18 00:00 97.9 52 12 109/48 (68) 92 04/17/18 00:00 54 04/17/18 00:00 Room Air 3.0 04/16/18 23:30 53 23 109/50 (69) 96 04/16/18 23:00 61 24 115/57 (76) 95 04/16/18 22:30 63 17 102/54 (70) 90 04/16/18 22:00 59 17 108/40 (62) 97 04/16/18 21:30 57 16 103/32 (55) 95 04/16/18 21:00 56 21 112/54 (73) 97 04/16/18 20:30 64 25 108/55 (72) 98 04/16/18 20:00 Room Air 3.0 04/16/18 20:00 62 04/16/18 20:00 90/55 04/16/18 20:00 98.0 72 19 90/55 (67) 93 04/16/18 19:30 59 22 90/25 (46) 99 04/16/18 19:00 69 20 99/36 (57) 92 04/16/18 18:30 60 18 122/42 (68) 93 04/16/18 18:00 49 24 115/49 (71) 97 04/16/18 17:56 102/51 04/16/18 17:45 51 19 102/51 (68) 96 04/16/18 17:30 63 24 83/28 (46) 96 04/16/18 17:00 97.8 63 24 115/28 (57) 95 04/16/18 16:30 60 19 115/47 (69) 95 04/16/18 16:00 57 04/16/18 16:00 Room Air 3.0 04/16/18 16:00 59 18 123/51 (75) 97 04/16/18 15:30 59 19 115/52 (73) 100 04/16/18 15:16 100/43 04/16/18 15:00 51 22 98/38 (58) 100 04/16/18 14:30 98.9 54 25 113/54 (73) 99 04/16/18 14:15 79 26 97/57 (70) 88 04/16/18 14:00 61 15 106/38 (60) 91 04/16/18 13:38 103/42 04/16/18 13:30 62 20 103/42 (62) 94 04/16/18 13:00 55 21 115/50 (71) 89 04/16/18 12:30 53 23 128/55 (79) 90 04/16/18 12:00 74 04/16/18 12:00 Room Air 3.0 04/16/18 12:00 97.5 55 20 108/45 (66) 92 04/16/18 11:30 49 21 121/46 (71) 92 04/16/18 11:00 57 18 118/46 (70) 92 04/16/18 10:30 58 15 137/44 (75) 91 Intake and Output 04/16/18 04/17/18 19:00 07:00 Intake Total 435.316 ml 159.863 ml Output Total 0 ml 100 ml Balance 435.316 ml 59.863 ml Intake Oral 270 ml 0 ml IV Total 165.316 ml 159.863 ml Output Urine Total 0 ml 0 ml Stool Total 100 ml # Bowel Movements 9 6 Laboratory Tests 04/17/18 05:10: White Blood Count 4.9, Red Blood Count 3.62L, Hemoglobin 11.1L, Hematocrit 33.7L , Mean Corpuscular Volume 93, Mean Corpuscular Hemoglobin 30.7, Mean Corpuscular Hemoglobin Concent 32.9, Red Cell Distribution Width 14.7, Platelet Count 224, Mean Platelet Volume 9.0, Neutrophils (%) (Auto) 60.0, Lymphocytes (% ) (Auto) 24.6, Monocytes (%) (Auto) 7.6, Eosinophils (%) (Auto) 7.0H, Basophils (%) (Auto) 0.8, Sodium Level 134L, Potassium Level 3.7, Chloride Level 94L, Carbon Dioxide Level 26, Anion Gap 14, Blood Urea Nitrogen 41H, Creatinine 12.3H , Estimat Glomerular Filtration Rate 3.9, Glucose Level 77, Calcium Level 8.1L Height (Feet): 5 Height (Inches): 6.00 Weight (Pounds): 204 General Appearance: no apparent distress Cardiovascular: normal rate Respiratory/Chest: decreased breath sounds Abdomen: soft Objective no change Fredrick Conner MD Apr 17, 2018 10:16
--- NOTE | 2018-04-17 10:20 | NUR ---
NURSE NOTES: Able to self repositioned, seen by Dr Conner,will follow up with new orders.Kept clean and dry
--- NOTE | 2018-04-17 12:04 | NUR ---
NURSE NOTES: Patient asleep, no acute distress, remains on dopamine drip. SBP 84 at this time.Able to self repositioned.Kept clean and dry.Continue monitoring.
--- NOTE | 2018-04-17 14:06 | NUR ---
NURSE NOTES: Awake, consumed about 50% at dinner, no acute distress. Will continue to monitor.
--- NOTE | 2018-04-17 16:07 | Internal Med Progress Note ---
Subjective Date of Service: Apr 17, 2018 Physician Name Edward Harrell Attending Physician Ash Henley MD Current Medications Medications (Trade) Dose Ordered Sig/Marcos Route PRN Reason Start Time Stop Time Status Last Admin Dose Admin Acetaminophen (Tylenol) 650 mg Q6H PRN ORAL Mild Pain/Temp > 100.5 04/12/18 17:45 05/12/18 17:44 04/16/18 02:08 Aspirin (ASA) 81 mg DAILY ORAL 04/17/18 09:00 05/17/18 08:59 04/17/18 08:10 Chlorhexidine Gluconate (Nivia-Hex 2%) 1 applic DAILY@2000 TOPIC 04/13/18 20:00 05/13/18 19:59 04/16/18 21:10 Doxycycline Hyclate 100 mg/ Dextrose 100 ml @ 100 mls/hr Q12HR IV 04/16/18 21:00 04/23/18 20:59 04/17/18 08:10 Guaifenesin (Robitussin) 300 mg Q6H PRN ORAL For Cough 04/14/18 17:00 05/14/18 16:59 04/16/18 02:07 Heparin Sodium (Porcine) (Heparin 5000 units/ml) 5,000 units EVERY 12 HOURS SUBQ 04/12/18 21:00 05/12/18 20:59 04/17/18 08:12 Isosorbide Dinitrate (Isordil) 10 mg TID ORAL 04/16/18 18:00 05/16/18 17:59 04/16/18 17:56 Meropenem 500 mg/ Sodium Chloride 50 ml @ 100 mls/hr Q24HRS IVPB 04/17/18 14:00 04/22/18 13:59 04/17/18 13:29 Midodrine (Pro-Amatine) 15 mg Q8HR ORAL 04/15/18 14:00 05/12/18 21:59 04/17/18 13:25 Ondansetron HCl (Zofran) 4 mg Q4H PRN IVP Nausea & Vomiting 04/12/18 17:45 05/12/18 17:44 04/16/18 16:16 Pantoprazole (Protonix) 40 mg BID ORAL 04/12/18 18:00 05/12/18 17:59 04/17/18 08:10 Sevelamer Carbonate (Renvela) 800 mg THREE TIMES A DAY ORAL 04/14/18 18:00 05/13/18 08:59 04/17/18 13:25 Zolpidem Tartrate (Ambien) 5 mg QHS PRN ORAL INSOMNIA 04/12/18 23:15 04/19/18 23:14 04/14/18 23:01 Allergies: Coded Allergies: CEFAZOLIN (Verified Allergy, Unknown, 10/02/10) CIPROFLOXACIN (Verified Allergy, Unknown, 10/02/10) GENTAMICIN (Verified Allergy, Unknown, 10/02/10) KETAMINE (Verified Allergy, Unknown, 03/29/18) LEVOFLOXACIN (Verified Allergy, Unknown, 10/02/10) PENICILLINS (Verified Allergy, Unknown, ITCH, 10/02/10) Uncoded Allergies: CONTRAST MEDIA (Adverse Reaction, Mild, MILD ITCHING AFTER CONTRAST MEDIA, 04/30/17) ROS Limited/Unobtainable: No Constitutional: Reports: no symptoms HEENT: Reports: no symptoms Cardiovascular: Reports: no symptoms Respiratory: Reports: no symptoms Gastrointestinal/Abdominal: Reports: no symptoms Genitourinary: Reports: no symptoms Neurologic/Psychiatric: Reports: no symptoms Subjective 53 YO F admitted with shortness of breath. Now pneumonia. Cover for Int Med- Dr Henley. ICU. Continues on dopamine Objective Last Vital Signs Date Time Temp Pulse Resp B/P (MAP) Pulse Ox O2 Delivery O2 Flow Rate FiO2 04/17/18 15:00 50 21 92/47 (62) 98 04/17/18 12:00 98.8 04/17/18 12:00 Room Air 3.0 04/17/18 07:02 36 Laboratory Tests Test 04/17/18 05:10 White Blood Count 4.9 K/UL (4.8-10.8) Red Blood Count 3.62 M/UL (4.20-5.40) L Hemoglobin 11.1 G/DL (12.0-16.0) L Hematocrit 33.7 % (37.0-47.0) L Mean Corpuscular Volume 93 FL (80-99) Mean Corpuscular Hemoglobin 30.7 PG (27.0-31.0) Mean Corpuscular Hemoglobin Concent 32.9 G/DL (32.0-36.0) Red Cell Distribution Width 14.7 % (11.6-14.8) Platelet Count 224 K/UL (150-450) Mean Platelet Volume 9.0 FL (6.5-10.1) Neutrophils (%) (Auto) 60.0 % (45.0-75.0) Lymphocytes (%) (Auto) 24.6 % (20.0-45.0) Monocytes (%) (Auto) 7.6 % (1.0-10.0) Eosinophils (%) (Auto) 7.0 % (0.0-3.0) H Basophils (%) (Auto) 0.8 % (0.0-2.0) Sodium Level 134 MMOL/L (136-145) L Potassium Level 3.7 MMOL/L (3.5-5.1) Chloride Level 94 MMOL/L (98-107) L Carbon Dioxide Level 26 MMOL/L (21-32) Anion Gap 14 mmol/L (5-15) Blood Urea Nitrogen 41 mg/dL (7-18) H Creatinine 12.3 MG/DL (0.55-1.30) H Estimat Glomerular Filtration Rate 3.9 mL/min (>60) Glucose Level 77 MG/DL (74-106) Calcium Level 8.1 MG/DL (8.5-10.1) L Microbiology Date/Time Source Procedure Growth Status 04/15/18 04:00 Sputum Induced Gram Stain - Final Resulted 04/15/18 04:00 Sputum Culture - Preliminary MOLD Usual Respiratory Lilia Resulted 04/16/18 12:03 Stool Clostridium difficile Toxin Assay - Final Complete Intake and Output 04/16/18 04/17/18 19:00 07:00 Intake Total 435.316 ml 159.863 ml Output Total 0 ml 100 ml Balance 435.316 ml 59.863 ml Intake Oral 270 ml 0 ml IV Total 165.316 ml 159.863 ml Output Urine Total 0 ml 0 ml Stool Total 100 ml # Bowel Movements 9 6 Objective Objective GENERAL: Awake, responsive, alert HEAD AND NECK: Pupils equal and reactive to light. Extraocular movements intact. Neck was supple. No JVD. LUNGS: Fair air entry. Poor respiratory effort. No wheeze or rhonchi. Decreased air in the bases. HEART: S1 and S2. Distant heart sounds. No murmur. ABDOMEN: Soft, nondistended, and nontender. Morbidly obese. EXTREMITIES: No cyanosis, clubbing, or edema. Right femoral area PermCath as well as left upper extremity AV fistula, functional. NEUROLOGIC: Cranial nerves II through XII are grossly intact. The patient is moving all the extremities spontaneously. Gait was not assessed due to the patient's status. PSYCHIATRIC: Mood and affect are intact. Assessment/Plan Assessment/Plan Assessment/Plan Assessment/Plan 1. Sepsis, most likely secondary to left upper lobe and, to a lesser extent, medial right lower lobe most likely representing multifocal pneumonia. 2. Hypotension, possible septic shock. 3. Pancytopenia with severe thrombocytopenia resolving. 4. End-stage renal disease, on hemodialysis. 5. Altered mental status, most likely toxic metabolic encephalopathy as a result of infection as well as uremia. 6. Anemia of chronic kidney disease. 7. Morbid obesity. 8. Bradycardia. PLAN: In ICU. follow up laboratory and cultures. Dr. Fredrick Conner from Nephrology consult; next hemodialysis 04/18/18. Dr. Mcbride from ID consult. Discussed with the family member, brother at the bedside. Abx: Vancomycin, Meropenem, Azithromycin Code status is Full Code. DVT prophylaxis: heparin subcutaneous. continue Dopamine Drip CT of chest noted. Cortisol level Pending. Edward Harrell MD Apr 17, 2018 16:07
--- NOTE | 2018-04-17 16:12 | NUR ---
NURSE NOTES: Adls done,pt help to turned and repositioned,kept clean and dry
--- NOTE | 2018-04-17 18:13 | NUR ---
NURSE NOTES: Asleep, no acute distress, refused dinner at this time.As stated, I will eat later.Will endorsed to next shift. Kept clean and dry.Will continue to monitor.
--- NOTE | 2018-04-17 19:45 | NUR ---
HAND-OFF: Report given to WILLI Gonzalez.
[2018-04-17] MEDS: Dyna-Hex 2% Top Sol 2oz TOPIC SCH (19:51)
--- NOTE | 2018-04-17 22:15 | NUR ---
NURSE NOTES: Received pt. awake in bed. Received report from WILLI Almaraz. Denies pain or discomfort. On dopamine drip at 4mcg/hr. Able to repositioned self. Peripheral line right forearm and right femoral double lumen patent and dressing dry and intact. Lt UA AV shunt w/o bruit and thrill noted. Anuric.Up to BSC with assist. SB at 49 bpm on storage administrator. On room air. In no apparent distress noted at this time. Will continue POC.
--- NOTE | 2018-04-17 22:28 | NUR ---
HAND-OFF: Report given to JANET/WILLI.
[2018-04-18] VITALS (41 sets, daily range): BP systolic 73–135; BP diastolic 28–70
[2018-04-18] MEDS: DOPamine 400mg/250ml 250 ML IV SCH (02:07)
--- NOTE | 2018-04-18 02:45 | NUR ---
NURSE NOTES: Sleeping but easily awakened. Denies pain or discomfort. On dopamine drip at 4mcg/hr. Able to repositioned self. Peripheral line right forearm and right femoral double lumen patent w/dressing dry and intact. SB at 54 bpm on cardiac catheterization technologist. On room air. In no apparent distress. Will continue POC.
[2018-04-18] MEDS: Midodrine 10mg tab ORAL SCH ×3 (05:31→21:21)
[2018-04-18 06:27] LABS: BASOPHILS % (AUTO) 0.5 % (0.0-2.0); HEMOGLOBIN 10.9 G/DL (12.0-16.0); LYMPHOCYTES % (AUTO) 24.6 % (20.0-45.0); MEAN CORPUSCULAR VOLUME 93 FL (80-99); MONOCYTES % (AUTO) 9.2 % (1.0-10.0); NEUTROPHILS % (AUTO) 57.8 % (45.0-75.0); PLATELET COUNT 235 K/UL (150-450); RED BLOOD COUNT 3.54 M/UL (4.20-5.40); RED CELL DISTRIBUTION WIDTH 14.4 % (11.6-14.8); WHITE BLOOD COUNT 4.6 K/UL (4.8-10.8)
--- NOTE | 2018-04-18 07:10 | NUR ---
NURSE NOTES: Received patient from WILLI Henriquez. Patient alert and oriented at this time. Patient HR is sinus ade at this time at 59bpm. Patient blood pressure is 136/96 at this time. Patient is on room air with saturation of 90-94% at this time. Patient complaining of diarrhea at this time. Will notify MD when he rounds on the patient. Patient had nausea during the night and received zofran x 2. Patient states that nausea has improved at this time. Patient states that she wants to go home this morning and she is complaining that she hasn't had much sleep at this time. Patient received dialysis on the . Patient possibly due for dialysis today but the order has not been placed yet. Patient ambulates to bedside commode. Patient anuric at this time. Patient has a left AV shunt and a right femoral permicath at this time. The Permicath is running Dopamine drip at 4mcg/kg/hr or 10.88mL/hr. Patient bed in low position with bed alarm on and call light in reach at this time.
[2018-04-18 07:18] LABS: ALANINE AMINOTRANSFERASE 13 U/L (12-78); ALBUMIN 2.9 G/DL (3.4-5.0); ALBUMIN/GLOBULIN RATIO 0.6 (1.0-2.7); ALKALINE PHOSPHATASE 169 U/L (46-116); ANION GAP 16 mmol/L (5-15); ASPARTATE AMINO TRANSFERASE 18 U/L (15-37); BILIRUBIN,TOTAL 0.6 MG/DL (0.2-1.0); BLOOD UREA NITROGEN 51 mg/dL (7-18); CALCIUM 7.6 MG/DL (8.5-10.1); CARBON DIOXIDE 24 MMOL/L (21-32); CHLORIDE 94 MMOL/L (98-107); CREATININE 14.1 MG/DL (0.55-1.30); POTASSIUM 3.8 MMOL/L (3.5-5.1); SODIUM 134 MMOL/L (136-145)
[2018-04-18] MEDS: Aspirin Baby 81mg ORAL SCH ×2 (08:56→09:00)
[2018-04-18] MEDS: Heparin 5000 units/ml inj SUBQ SCH ×3 (08:59→20:52)
--- NOTE | 2018-04-18 09:20 | NUR ---
NURSE NOTES: Patient VS stable at this time. Patient still complaining of diarrhea. Patient asking for something to stop the diarrhea. Will follow up with renal or ID for order. Dr Liang asked for the patient to be weaned off of the dopamine drip at this time. Drip turned down to 2mcg/kg/hr at this time. Will continue to monitor blood pressure. Bed in low position with bed alarm on and call light in reach at this time. Patient states that she wants to go home and be left alone at this time. Patient refused morning medications at this time.
--- NOTE | 2018-04-18 09:22 | Cardiac Electrophysiology PN ---
Assessment/Plan Assessment/Plan 1. Troponin elevation, likely due to renal failure. 0.05 and 0.08. The patient does not have any chest pain. The patient also is hypotensive and it could be also contributing to demand ischemia. 2. Likely septic shock. On Dopamine drip, midodrine 50 mg every 8 hours in addition to vancomycin and meropenem per Dr. Mcbride. 3. Bradycardia. Decrease dopamine to 2 mcg 4. Anterior T-wave inversion. No chest pain. EF 60% on echocardiogram. 5. End-stage renal disease, on hemodialysis, per Dr. Conner. 6. Diarrhea C Diff was negative DW RN Subjective Subjective Still on Dopamine drip 4 mcg. HR 50s and BP 100. Still has diarrhea Objective Last 24 Hour Vital Signs Date Time Temp Pulse Resp B/P (MAP) Pulse Ox O2 Delivery O2 Flow Rate FiO2 04/18/18 09:00 100/62 04/18/18 08:00 Room Air 3.0 04/18/18 07:00 52 20 107/58 (74) 94 04/18/18 06:00 88/42 04/18/18 06:00 72 21 81/31 (48) 92 04/18/18 05:00 70 26 111/38 (62) 94 04/18/18 05:00 81/31 04/18/18 04:00 63 15 98/42 (60) 95 04/18/18 04:00 63 04/18/18 04:00 Room Air 3.0 04/18/18 04:00 98/42 04/18/18 03:00 97.0 51 20 90/54 (66) 95 04/18/18 03:00 90/54 04/18/18 02:07 80/46 04/18/18 02:00 67 20 92/61 (71) 94 04/18/18 01:00 61 14 107/55 (72) 97 04/18/18 00:00 53 19 101/59 (73) 92 04/18/18 00:00 53 04/18/18 00:00 Room Air 3.0 04/17/18 23:00 98.1 51 26 98/50 (66) 95 04/17/18 22:00 78 21 94/50 (65) 92 04/17/18 21:00 59 18 100/55 (70) 95 04/17/18 20:30 59 17 1/ 98 04/17/18 20:00 Room Air 3.0 04/17/18 20:00 57 04/17/18 20:00 57 17 96/51 (66) 98 04/17/18 20:00 97.4 18 19:30 55 12 94/50 (65) 98 04/17/18 19:00 57 21 94/50 (65) 95 04/17/18 18:30 Nasal Cannula 4.0 36 04/17/18 18:30 97 Nasal Cannula 4.0 36 04/17/18 18:00 65 21 97/46 (63) 98 04/17/18 18:00 97/48 04/17/18 17:00 65 21 103/57 (72) 98 04/17/18 16:00 68 04/17/18 16:00 Room Air 3.0 04/17/18 16:00 98.2 52 22 87/41 (56) 96 04/17/18 15:00 50 21 92/47 (62) 98 04/17/18 14:00 96 21 89/67 (74) 98 04/17/18 13:30 58 21 96/51 (66) 98 04/17/18 13:00 67/29 04/17/18 13:00 58 21 96/51 (66) 98 04/17/18 12:00 98.8 54 22 84/42 (56) 95 04/17/18 12:00 Room Air 3.0 04/17/18 12:00 57 04/17/18 11:00 64 22 96/54 (68) 98 04/17/18 10:00 59 19 92/42 (59) 98 Intake and Output 04/17/18 04/18/18 18:59 06:59 Intake Total 268 ml 173.52 ml Output Total 0 ml 0 ml Balance 268 ml 173.52 ml Intake Oral 118 ml IV Total 150 ml 143.52 ml Other 30 ml Output Urine Total 0 ml 0 ml # Bowel Movements 4 4 Laboratory Tests Test 04/18/18 05:00 White Blood Count 4.6 K/UL (4.8-10.8) L Red Blood Count 3.54 M/UL (4.20-5.40) L Hemoglobin 10.9 G/DL (12.0-16.0) L Hematocrit 33.0 % (37.0-47.0) L Mean Corpuscular Volume 93 FL (80-99) Mean Corpuscular Hemoglobin 30.6 PG (27.0-31.0) Mean Corpuscular Hemoglobin Concent 32.9 G/DL (32.0-36.0) Red Cell Distribution Width 14.4 % (11.6-14.8) Platelet Count 235 K/UL (150-450) Mean Platelet Volume 8.1 FL (6.5-10.1) Neutrophils (%) (Auto) 57.8 % (45.0-75.0) Lymphocytes (%) (Auto) 24.6 % (20.0-45.0) Monocytes (%) (Auto) 9.2 % (1.0-10.0) Eosinophils (%) (Auto) 8.0 % (0.0-3.0) H Basophils (%) (Auto) 0.5 % (0.0-2.0) Sodium Level 134 MMOL/L (136-145) L Potassium Level 3.8 MMOL/L (3.5-5.1) Chloride Level 94 MMOL/L (98-107) L Carbon Dioxide Level 24 MMOL/L (21-32) Anion Gap 16 mmol/L (5-15) H Blood Urea Nitrogen 51 mg/dL (7-18) H Creatinine 14.1 MG/DL (0.55-1.30) H Estimat Glomerular Filtration Rate 3.3 mL/min (>60) Glucose Level 84 MG/DL (74-106) Calcium Level 7.6 MG/DL (8.5-10.1) L Total Bilirubin 0.6 MG/DL (0.2-1.0) Aspartate Amino Transf (AST/SGOT) 18 U/L (15-37) Alanine Aminotransferase (ALT/SGPT) 13 U/L (12-78) Alkaline Phosphatase 169 U/L (46-116) H Total Protein 7.5 G/DL (6.4-8.2) Albumin 2.9 G/DL (3.4-5.0) L Globulin 4.6 g/dL Albumin/Globulin Ratio 0.6 (1.0-2.7) L Microbiology Date/Time Source Procedure Growth Status 04/16/18 12:03 Stool Clostridium difficile Toxin Assay - Final Complete Objective HEAD AND NECK: No JVD. LUNGS: Decreased breath sounds. CARDIOVASCULAR: Shows regular S1 and S2. Bradycardic. ABDOMEN: Soft. EXTREMITIES: No edema Tc Liang MD Apr 18, 2018 09:22
--- NOTE | 2018-04-18 10:15 | NUR ---
NURSE NOTES: Patient's BP has dropped to 63/48 at this time. Patient's dopamine drip will be increased back to 4mcg/kg/hr at this time. Will continue to monitor.
--- NOTE | 2018-04-18 10:52 | Nephrology Progress Note ---
Assessment/Plan Problem List: (1) ESRD (end stage renal disease) on dialysis (2) Hypotension (3) Encephalopathy Assessment: improved Assessment ESRD on HD HypoThyroidism Periodic Hypotension encephalopathic , metabolic Plan add asa and isordil for rising Troponin add prn imodium for loose bm HD 04/13 and 04/15- next later today or 04/18 per orders midodrine per consultants ? Cardiac eval for low HR Subjective ROS Limited/Unobtainable: No Constitutional: Reports: malaise, other - diarrhead Objective Objective Last 24 Hour Vital Signs Date Time Temp Pulse Resp B/P (MAP) Pulse Ox O2 Delivery O2 Flow Rate FiO2 04/18/18 09:00 100/62 04/18/18 08:00 Room Air 3.0 04/18/18 07:00 52 20 107/58 (74) 94 04/18/18 06:00 88/42 04/18/18 06:00 72 21 81/31 (48) 92 04/18/18 05:00 70 26 111/38 (62) 94 04/18/18 05:00 81/31 04/18/18 04:00 63 15 98/42 (60) 95 04/18/18 04:00 63 04/18/18 04:00 Room Air 3.0 04/18/18 04:00 98/42 04/18/18 03:00 97.0 51 20 90/54 (66) 95 04/18/18 03:00 90/54 04/18/18 02:07 80/46 04/18/18 02:00 67 20 92/61 (71) 94 04/18/18 01:00 61 14 107/55 (72) 97 04/18/18 00:00 53 19 101/59 (73) 92 04/18/18 00:00 53 04/18/18 00:00 Room Air 3.0 04/17/18 23:00 98.1 51 26 98/50 (66) 95 04/17/18 22:00 78 21 94/50 (65) 92 04/17/18 21:00 59 18 100/55 (70) 95 04/17/18 20:30 59 17 1/ 98 04/17/18 20:00 Room Air 3.0 04/17/18 20:00 57 04/17/18 20:00 57 17 96/51 (66) 98 04/17/18 20:00 97.4 04/17/18 19:30 55 12 94/50 (65) 98 04/17/18 19:00 57 21 94/50 (65) 95 04/17/18 18:30 Nasal Cannula 4.0 36 04/17/18 18:30 97 Nasal Cannula 4.0 36 04/17/18 18:00 65 21 97/46 (63) 98 04/17/18 18:00 97/48 04/17/18 17:00 65 21 103/57 (72) 98 04/17/18 16:00 68 04/17/18 16:00 Room Air 3.0 04/17/18 16:00 98.2 52 22 87/41 (56) 96 04/17/18 15:00 50 21 92/47 (62) 98 04/17/18 14:00 96 21 89/67 (74) 98 04/17/18 13:30 58 21 96/51 (66) 98 04/17/18 13:00 67/29 04/17/18 13:00 58 21 96/51 (66) 98 04/17/18 12:00 98.8 54 22 84/42 (56) 95 04/17/18 12:00 Room Air 3.0 04/17/18 12:00 57 04/17/18 11:00 64 22 96/54 (68) 98 Intake and Output 04/17/18 04/18/18 18:59 06:59 Intake Total 268 ml 173.52 ml Output Total 0 ml 0 ml Balance 268 ml 173.52 ml Intake Oral 118 ml IV Total 150 ml 143.52 ml Other 30 ml Output Urine Total 0 ml 0 ml # Bowel Movements 4 4 Laboratory Tests 04/18/18 05:00: White Blood Count 4.6L, Red Blood Count 3.54L, Hemoglobin 10.9L, Hematocrit 33.0L, Mean Corpuscular Volume 93, Mean Corpuscular Hemoglobin 30.6, Mean Corpuscular Hemoglobin Concent 32.9, Red Cell Distribution Width 14.4, Platelet Count 235, Mean Platelet Volume 8.1, Neutrophils (%) (Auto) 57.8, Lymphocytes (% ) (Auto) 24.6, Monocytes (%) (Auto) 9.2, Eosinophils (%) (Auto) 8.0H, Basophils (%) (Auto) 0.5, Sodium Level 134L, Potassium Level 3.8, Chloride Level 94L, Carbon Dioxide Level 24, Anion Gap 16H, Blood Urea Nitrogen 51H, Creatinine 14.1H, Estimat Glomerular Filtration Rate 3.3, Glucose Level 84, Calcium Level 7.6L, Total Bilirubin 0.6, Aspartate Amino Transf (AST/SGOT) 18, Alanine Aminotransferase (ALT/SGPT) 13, Alkaline Phosphatase 169H, Total Protein 7.5, Albumin 2.9L, Globulin 4.6, Albumin/Globulin Ratio 0.6L Height (Feet): 5 Height (Inches): 6.00 Weight (Pounds): 199 General Appearance: no apparent distress Cardiovascular: bradycardia Respiratory/Chest: decreased breath sounds Abdomen: soft, distended Objective no change Fredrick Conner MD Apr 18, 2018 10:52
[2018-04-18] MEDS ORDERED: Loperamide 2mg cap ORAL ONE (11:00)
--- NOTE | 2018-04-18 11:00 | NUR ---
NURSE NOTES: Patient VS stable at this time with BP of 110/47 at this time. Patient still complaining of diarrhea. Obtained order for Imodium from Dr Conner and administered medication along with patient's morning dose of Renvela that she previously refused. Will monitor for improvement in bowel pattern. Will continue to monitor BP. Bed in low position with bed alarm on and call light in reach at this time. Patient able to eat a small amount of blueberry muffin at this time before taking medication.
--- NOTE | 2018-04-18 11:18 | NUR ---
CASE MANAGEMENT: REVIEW SI: ESRD ON HD . PNA T 98.3 HR 52 RR 26 BP 81/31 SAT 91% ROOM AIR WBC 4.6 H/H 10.9/33.0 MA 134 BUN 51 CR 14.1 IS: DOPAMINE IV Q24HR DOXYCYCLINE IV Q12HR MEROPENEM IV Q24HR MIDODRINE PO Q8HR HEPARIN SQ Q12HR PROTONIX PO BID ICU STATUS DCP: PATIENT IS FROM HOME
--- NOTE | 2018-04-18 12:00 | NUR ---
NURSE NOTES: [facility] called about removing patient's right femoral permi-cath prior to discharge. Consulted with dialysis nurse. Dialysis nurse stated that patients left upper arm AV shunt has been working when she performed dialysis on the patient. Patient's permi-cath is currently being used for her dopamine drip. Will endorse to follow up with removal of permi-cath when dopamine drip is no longer needed.
--- NOTE | 2018-04-18 13:02 | NUR ---
NURSE NOTES: Patient states that nausea has improved at this time. Patient informed that she has medication due at this time, so she needs to try to eat a little bit of food if possible. Patient has had another episode of diarrhea at this time. Patient states that her diarrhea has shown no improvement at this time. Patient bed in low position with bed alarm on and call light in reach at this time. patient lunch tray at the bedside.
--- NOTE | 2018-04-18 13:24 | Internal Med Progress Note ---
Subjective Date of Service: Apr 18, 2018 Physician Name Edward Harrell Attending Physician Ash Henley MD Current Medications Medications (Trade) Dose Ordered Sig/Marcos Route PRN Reason Start Time Stop Time Status Last Admin Dose Admin Acetaminophen (Tylenol) 650 mg Q6H PRN ORAL Mild Pain/Temp > 100.5 04/12/18 17:45 05/12/18 17:44 04/17/18 21:57 Aspirin (ASA) 81 mg DAILY ORAL 04/17/18 09:00 05/17/18 08:59 04/17/18 08:10 Chlorhexidine Gluconate (Nivia-Hex 2%) 1 applic DAILY@2000 TOPIC 04/13/18 20:00 05/13/18 19:59 04/17/18 19:51 Dopamine HCl/ Dextrose 250 ml @ 0 mls/hr Q24H IV 04/18/18 02:00 05/18/18 01:59 04/18/18 02:07 Doxycycline Hyclate 100 mg/ Dextrose 100 ml @ 100 mls/hr Q12HR IV 04/16/18 21:00 04/23/18 20:59 04/18/18 08:56 Guaifenesin (Robitussin) 300 mg Q6H PRN ORAL For Cough 04/14/18 17:00 05/14/18 16:59 04/16/18 02:07 Heparin Sodium (Porcine) (Heparin 5000 units/ml) 5,000 units EVERY 12 HOURS SUBQ 04/12/18 21:00 05/12/18 20:59 04/17/18 20:41 Isosorbide Dinitrate (Isordil) 10 mg TID ORAL 04/16/18 18:00 05/16/18 17:59 04/16/18 17:56 Loperamide HCl (Imodium) 2 mg Q4H PRN ORAL Diarrhea 04/18/18 11:00 05/18/18 10:59 Meropenem 500 mg/ Sodium Chloride 50 ml @ 100 mls/hr Q24HRS IVPB 04/17/18 14:00 04/22/18 13:59 04/17/18 13:29 Midodrine (Pro-Amatine) 15 mg Q8HR ORAL 04/15/18 14:00 05/12/18 21:59 04/18/18 05:31 Ondansetron HCl (Zofran) 4 mg Q4H PRN IVP Nausea & Vomiting 04/12/18 17:45 05/12/18 17:44 04/18/18 06:27 Pantoprazole (Protonix) 40 mg BID ORAL 04/12/18 18:00 05/12/18 17:59 04/17/18 18:41 Sevelamer Carbonate (Renvela) 800 mg THREE TIMES A DAY ORAL 04/14/18 18:00 05/13/18 08:59 04/18/18 10:28 Zolpidem Tartrate (Ambien) 5 mg QHS PRN ORAL INSOMNIA 04/12/18 23:15 04/19/18 23:14 04/14/18 23:01 Allergies: Coded Allergies: CEFAZOLIN (Verified Allergy, Unknown, 10/02/10) CIPROFLOXACIN (Verified Allergy, Unknown, 10/02/10) GENTAMICIN (Verified Allergy, Unknown, 10/02/10) KETAMINE (Verified Allergy, Unknown, 03/29/18) LEVOFLOXACIN (Verified Allergy, Unknown, 10/02/10) PENICILLINS (Verified Allergy, Unknown, ITCH, 10/02/10) Uncoded Allergies: CONTRAST MEDIA (Adverse Reaction, Mild, MILD ITCHING AFTER CONTRAST MEDIA, 04/30/17) ROS Limited/Unobtainable: No Constitutional: Reports: no symptoms HEENT: Reports: no symptoms Cardiovascular: Reports: no symptoms Respiratory: Reports: shortness of breath Gastrointestinal/Abdominal: Reports: no symptoms Genitourinary: Reports: no symptoms Neurologic/Psychiatric: Reports: no symptoms Subjective 53 YO F admitted with shortness of breath. Now pneumonia. Cover for Int John- Dr Henley. ICU. Continues on dopamine. C/O diarrhea Objective Last Vital Signs Date Time Temp Pulse Resp B/P (MAP) Pulse Ox O2 Delivery O2 Flow Rate FiO2 04/18/18 12:00 Room Air 3.0 04/18/18 11:00 53 17 107/57 (74) 93 04/18/18 08:00 98.3 04/17/18 18:30 36 Laboratory Tests Test 04/18/18 05:00 White Blood Count 4.6 K/UL (4.8-10.8) L Red Blood Count 3.54 M/UL (4.20-5.40) L Hemoglobin 10.9 G/DL (12.0-16.0) L Hematocrit 33.0 % (37.0-47.0) L Mean Corpuscular Volume 93 FL (80-99) Mean Corpuscular Hemoglobin 30.6 PG (27.0-31.0) Mean Corpuscular Hemoglobin Concent 32.9 G/DL (32.0-36.0) Red Cell Distribution Width 14.4 % (11.6-14.8) Platelet Count 235 K/UL (150-450) Mean Platelet Volume 8.1 FL (6.5-10.1) Neutrophils (%) (Auto) 57.8 % (45.0-75.0) Lymphocytes (%) (Auto) 24.6 % (20.0-45.0) Monocytes (%) (Auto) 9.2 % (1.0-10.0) Eosinophils (%) (Auto) 8.0 % (0.0-3.0) H Basophils (%) (Auto) 0.5 % (0.0-2.0) Sodium Level 134 MMOL/L (136-145) L Potassium Level 3.8 MMOL/L (3.5-5.1) Chloride Level 94 MMOL/L (98-107) L Carbon Dioxide Level 24 MMOL/L (21-32) Anion Gap 16 mmol/L (5-15) H Blood Urea Nitrogen 51 mg/dL (7-18) H Creatinine 14.1 MG/DL (0.55-1.30) H Estimat Glomerular Filtration Rate 3.3 mL/min (>60) Glucose Level 84 MG/DL (74-106) Calcium Level 7.6 MG/DL (8.5-10.1) L Phosphorus Level 5.1 MG/DL (2.5-4.9) H Total Bilirubin 0.6 MG/DL (0.2-1.0) Aspartate Amino Transf (AST/SGOT) 18 U/L (15-37) Alanine Aminotransferase (ALT/SGPT) 13 U/L (12-78) Alkaline Phosphatase 169 U/L (46-116) H Total Protein 7.5 G/DL (6.4-8.2) Albumin 2.9 G/DL (3.4-5.0) L Globulin 4.6 g/dL Albumin/Globulin Ratio 0.6 (1.0-2.7) L Microbiology Date/Time Source Procedure Growth Status 04/16/18 12:03 Stool Clostridium difficile Toxin Assay - Final Complete Intake and Output 04/17/18 04/18/18 19:00 07:00 Intake Total 268 ml 173.52 ml Output Total 0 ml 0 ml Balance 268 ml 173.52 ml Intake Oral 118 ml IV Total 150 ml 143.52 ml Other 30 ml Output Urine Total 0 ml 0 ml # Bowel Movements 4 4 Objective Objective GENERAL: Awake, responsive, alert HEAD AND NECK: Pupils equal and reactive to light. Extraocular movements intact. Neck was supple. No JVD. LUNGS: Fair air entry. Poor respiratory effort. No wheeze or rhonchi. Decreased air in the bases. HEART: S1 and S2. Distant heart sounds. No murmur. ABDOMEN: Soft, nondistended, and nontender. Morbidly obese. EXTREMITIES: No cyanosis, clubbing, or edema. Right femoral area PermCath as well as left upper extremity AV fistula, functional. NEUROLOGIC: Cranial nerves II through XII are grossly intact. The patient is moving all the extremities spontaneously. Gait was not assessed due to the patient's status. PSYCHIATRIC: Mood and affect are intact. Assessment/Plan Assessment/Plan Assessment/Plan Assessment/Plan 1. Sepsis, most likely secondary to left upper lobe and, to a lesser extent, medial right lower lobe most likely representing multifocal pneumonia. 2. Hypotension, possible septic shock. 3. Pancytopenia with severe thrombocytopenia resolving. 4. End-stage renal disease, on hemodialysis. 5. Altered mental status, most likely toxic metabolic encephalopathy as a result of infection as well as uremia. 6. Anemia of chronic kidney disease. 7. Morbid obesity. 8. Bradycardia. 9. Diarrhea PLAN: In ICU. follow up laboratory and cultures. Dr. Fredrick Conner from Nephrology consult; next hemodialysis 04/18/18. Dr. Mcbride from ID consult. Discussed with the family member, brother at the bedside. Abx: Vancomycin, Meropenem, Azithromycin Code status is Full Code. DVT prophylaxis: heparin subcutaneous. continue Dopamine Drip CT of chest noted. Cortisol level Pending. C. Diff neg. Send stool for repeat Edward Harrell MD Apr 18, 2018 13:24
--- NOTE | 2018-04-18 14:00 | NUR ---
NURSE NOTES: Patient VS stable at this time. Patient beginning dialysis at this time. Patient's diarrhea has improved at this time. Patient requesting around the clock administration of imodium at this time. Patient bed in low position with bed alarm on and call light in reach at this time.
[2018-04-18] MEDS: Loperamide 2mg cap ORAL PRN ×3 (14:47→22:23)
--- NOTE | 2018-04-18 15:00 | NUR ---
Social Service Note [place] met with patient to obtain background information. Patient is alert, oriented and verbally responsive. Patient states she lives home alone and is independent with ADL's. Patient states she had a cane at one time but currently doesn't have an assisted device. PT eval once medically stable to assess for stability. Patient goes to [facility] [phone] (p) [phone] (f) -- at 4am. Patient is provided transportation to dialysis. Patient PCP is Dr. Henley. Patient states she receives home health care however cannot recall the name of provider. [place] called Dr. Henley's office but they are closed today. CM to follow up upon discharge. Patient would like to return home upon discharge. Will monitor and be available as needed.
--- NOTE | 2018-04-18 16:30 | NUR ---
NURSE NOTES: patient has finished dialysis at this time. Patient had 500mL out. Patient VS stable at this time. Patient's still having diarrhea at this time. Patient denies other sources of pain or discomfort. Patient still on dopamine drip at 4mcg/kg/hr. Patient blood pressure stable at this time. Bed in low position with bed alarm on and call light in reach at this time.
--- NOTE | 2018-04-18 17:59 | Infectious Diseases Prog Note ---
Assessment/Plan Assessment/Plan ASSESSMENT: 1. sepsis, shock, pneumonia, CT chest noted, pressors, bradycardia, sputum culture with mold, ? aspergillus pna - - continue meropenem and doxycycline, add voriconazole (mold on sputum culture) - hearing better off vancomycin - monitor labs and chest x-ray - mycoplasma IGM is negative, cannot obtain legionella urine antigen secondary to no urine output (HD) - icu care, pressors - d/w RN 2. End-stage renal disease, hemodialysis, has a right femoral line hemodialysis line and also left arm graft. 3. History of fistula in the past. 4. History of PermCath in the past 5. Anemia of chronic disease. 6. Hypertension - Blood pressure treatment per primary. 7. No history of diabetes mentioned. 8. Chronic kidney disease. 9. Obesity. 10. History of cholecystectomy. 11. History of parathyroidectomy. 12. History of carpal tunnel syndrome. 13. History of fractures, ORIF. 14. Past medical history noted. 15. Multiple drug allergies including cefazolin, Cipro, contrast media, gentamicin, ketamine, Levaquin and penicillin, she seems to tolerate carbapenems. 16. Social history is negative . 17. Family history is noncontributory. 18. MAR was noted. 19. Case discussed with RN. 20. Continue treatment per primary consultants. 21. Notes were noted and orders were entered. Subjective Constitutional: Reports: fatigue, other - on 4 mqs pressors dopamine ; Denies: fever HEENT: Reports: other - hearing better ; Denies: congestion Respiratory: Denies: shortness of breath Cardiovascular: Denies: chest pain Gastrointestinal/Abdominal: Denies: nausea, vomiting, diarrhea Neurologic: Denies: headache Psychiatric: Denies: depression Skin: Denies: rash Hematologic: Denies: bleeding Musculoskeletal: Denies: pain Allergies: Coded Allergies: CEFAZOLIN (Verified Allergy, Unknown, 10/02/10) CIPROFLOXACIN (Verified Allergy, Unknown, 10/02/10) GENTAMICIN (Verified Allergy, Unknown, 10/02/10) KETAMINE (Verified Allergy, Unknown, 03/29/18) LEVOFLOXACIN (Verified Allergy, Unknown, 10/02/10) PENICILLINS (Verified Allergy, Unknown, ITCH, 10/02/10) Uncoded Allergies: CONTRAST MEDIA (Adverse Reaction, Mild, MILD ITCHING AFTER CONTRAST MEDIA, 1/12/18) Objective Vital Signs Last 24 Hour Vital Signs Date Time Temp Pulse Resp B/P (MAP) Pulse Ox O2 Delivery O2 Flow Rate FiO2 04/18/18 16:00 Room Air 3.0 04/18/18 15:56 97.7 04/18/18 15:31 Room Air 04/18/18 15:30 62 17 119/64 (82) 92 04/18/18 15:00 64 19 114/65 (81) 93 04/18/18 15:00 114/65 04/18/18 14:30 60 17 135/57 (83) 93 04/18/18 14:00 62 15 126/59 (81) 93 04/18/18 14:00 126/59 04/18/18 13:30 64 18 113/54 (73) 93 04/18/18 13:00 67 21 110/47 (68) 93 04/18/18 13:00 110/47 04/18/18 13:00 90/48 04/18/18 12:30 73 19 90/48 (62) 92 04/18/18 12:00 98.0 58 22 109/67 (81) 92 04/18/18 12:00 109/67 04/18/18 12:00 Room Air 3.0 04/18/18 11:30 55 21 124/48 (73) 90 04/18/18 11:00 53 17 107/57 (74) 93 04/18/18 11:00 125/53 04/18/18 10:30 77 17 76/36 (49) 91 04/18/18 10:00 81 20 78/41 (53) 91 04/18/18 10:00 78/41 04/18/18 09:30 70 19 73/28 (43) 91 04/18/18 09:00 65 21 92/42 (59) 93 04/18/18 09:00 92/42 04/18/18 09:00 100/62 04/18/18 08:30 100/62 04/18/18 08:30 58 24 100/62 (75) 93 04/18/18 08:00 Room Air 3.0 04/18/18 08:00 98.3 63 21 103/47 (65) 91 04/18/18 08:00 103/47 04/18/18 08:00 72 04/18/18 07:30 62 19 106/40 (62) 91 04/18/18 07:00 52 20 107/58 (74) 94 04/18/18 07:00 106/40 04/18/18 06:00 88/42 04/18/18 06:00 72 21 81/31 (48) 92 04/18/18 05:00 70 26 111/38 (62) 94 04/18/18 05:00 81/31 04/18/18 04:00 63 15 98/42 (60) 95 04/18/18 04:00 63 04/18/18 04:00 Room Air 3.0 04/18/18 04:00 98/42 04/18/18 03:00 97.0 51 20 90/54 (66) 95 04/18/18 03:00 90/54 04/18/18 02:07 80/46 04/18/18 02:00 67 20 92/61 (71) 94 04/18/18 01:00 61 14 107/55 (72) 97 04/18/18 00:00 53 19 101/59 (73) 92 04/18/18 00:00 53 04/18/18 00:00 Room Air 3.0 04/17/18 23:00 98.1 51 26 98/50 (66) 95 04/17/18 22:00 78 21 94/50 (65) 92 04/17/18 21:00 59 18 100/55 (70) 95 04/17/18 20:30 59 17 1/ 98 04/17/18 20:00 Room Air 3.0 04/17/18 20:00 57 04/17/18 20:00 57 17 96/51 (66) 98 04/17/18 20:00 97.4 04/17/18 19:30 55 12 94/50 (65) 98 04/17/18 19:00 57 21 94/50 (65) 95 04/17/18 18:30 Nasal Cannula 4.0 36 04/17/18 18:30 97 Nasal Cannula 4.0 36 04/17/18 18:00 65 21 97/46 (63) 98 04/17/18 18:00 97/48 Height (Feet): 5 Height (Inches): 6.00 Weight (Pounds): 199 General Appearance: no acute distress HEENT: normocephalic, atraumatic, anicteric, mucous membranes moist Respiratory/Chest: no respiratory distress, no accessory muscle use, crackles/ rales, rhonchi - bilaterally Cardiovascular: normal rate, regular rhythm, no gallop/murmur, no JVD Abdomen: normal bowel sounds, soft, non tender, no organomegaly, non distended Genitourinary: other - no mckinney Extremities: no cyanosis Skin: no rash Neurologic/Psychiatric: laboratory director II-XII grossly normal, alert, oriented x 3, responsive Lymphatic: no neck adenopathy Musculoskeletal: no effusion Objective CT Chest: IMPRESSION: * Dense consolidations with air bronchograms noted in the left upper lobe and, to a lesser extent, medial right lower lobe most likely representing multifocal pneumonia. Follow-up after appropriate treatment recommended to ensure resolution. * Patchy opacities in the right upper lobe are also likely infectious in etiology. These obscure the previously described lung nodule. Attention to this area on follow-up recommended. * Prominent hilar and mediastinal lymph nodes, possibly reactive in etiology. * Small bilateral pleural effusions. * Large hiatal hernia * Dialysis catheter tip in the right atrium. Evidence of central venous occlusion with multiple collateral veins noted in the mediastinum. * Nonspecific calcifications in the bilateral breasts are correlation with most recent mammogram recommended. If none performed recently, then recommend follow- up screening mammogram. * Findings suggestive of renal osteodystrophy Chest x-ray - 04/14 - Findings: Heart size and mediastinal contours stable. Femoral approach dialysis catheter is again noted. Multiple surgical clips noted in the bilateral axilla. Portions of a stents again visualized in the right axilla. Multiple surgical clips noted in the right arm. Supervisor Typesetting opacities in the left midlung peripherally. No evidence of pneumothorax. There is patchy opacity at the right base. Osseous structures stable. Calcifications in the right breast noted. Impression: Left-sided airspace opacities most concerning for pneumonia. There is slight interval increased density compared to prior exam which may be technical. 04/16/18 - chest x-ray - IMPRESSION: 1. Bilateral airspace opacities, most confluent in the left midlung field. Could be from consolidation/pneumonia. There is a broad differential. Follow to ensure resolution and exclude other mimics. 2. Suspect bilateral pleural effusions. 3. Vascular congestion. Microbiology Date/Time Source Procedure Growth Status 04/12/18 11:35 Blood Blood Culture - Final NO GROWTH AFTER 5 DAYS Complete 04/15/18 04:00 Sputum Induced Gram Stain - Final Resulted 04/15/18 04:00 Sputum Culture - Preliminary MOLD Yeast Species Usual Upper Respiratory Lilia Resulted 04/16/18 12:03 Stool Clostridium difficile Toxin Assay - Final Complete 04/12/18 12:10 Rectum - Final NO CARBAPENEM-RESISTANT ENTEROBACTERI... Complete Microbiology Date/Time Source Procedure Growth Status 04/16/18 12:03 Stool Clostridium difficile Toxin Assay - Final Complete Laboratory Tests Test 04/18/18 05:00 White Blood Count 4.6 K/UL (4.8-10.8) L Red Blood Count 3.54 M/UL (4.20-5.40) L Hemoglobin 10.9 G/DL (12.0-16.0) L Hematocrit 33.0 % (37.0-47.0) L Mean Corpuscular Volume 93 FL (80-99) Mean Corpuscular Hemoglobin 30.6 PG (27.0-31.0) Mean Corpuscular Hemoglobin Concent 32.9 G/DL (32.0-36.0) Red Cell Distribution Width 14.4 % (11.6-14.8) Platelet Count 235 K/UL (150-450) Mean Platelet Volume 8.1 FL (6.5-10.1) Neutrophils (%) (Auto) 57.8 % (45.0-75.0) Lymphocytes (%) (Auto) 24.6 % (20.0-45.0) Monocytes (%) (Auto) 9.2 % (1.0-10.0) Eosinophils (%) (Auto) 8.0 % (0.0-3.0) H Basophils (%) (Auto) 0.5 % (0.0-2.0) Sodium Level 134 MMOL/L (136-145) L Potassium Level 3.8 MMOL/L (3.5-5.1) Chloride Level 94 MMOL/L (98-107) L Carbon Dioxide Level 24 MMOL/L (21-32) Anion Gap 16 mmol/L (5-15) H Blood Urea Nitrogen 51 mg/dL (7-18) H Creatinine 14.1 MG/DL (0.55-1.30) H Estimat Glomerular Filtration Rate 3.3 mL/min (>60) Glucose Level 84 MG/DL (74-106) Calcium Level 7.6 MG/DL (8.5-10.1) L Phosphorus Level 5.1 MG/DL (2.5-4.9) H Total Bilirubin 0.6 MG/DL (0.2-1.0) Aspartate Amino Transf (AST/SGOT) 18 U/L (15-37) Alanine Aminotransferase (ALT/SGPT) 13 U/L (12-78) Alkaline Phosphatase 169 U/L (46-116) H Total Protein 7.5 G/DL (6.4-8.2) Albumin 2.9 G/DL (3.4-5.0) L Globulin 4.6 g/dL Albumin/Globulin Ratio 0.6 (1.0-2.7) L Current Medications Medications (Trade) Dose Ordered Sig/Marcos Route PRN Reason Start Time Stop Time Status Last Admin Dose Admin Acetaminophen (Tylenol) 650 mg Q6H PRN ORAL Mild Pain/Temp > 100.5 04/12/18 17:45 05/12/18 17:44 04/17/18 21:57 Aspirin (ASA) 81 mg DAILY ORAL 04/17/18 09:00 05/17/18 08:59 04/17/18 08:10 Chlorhexidine Gluconate (Nivia-Hex 2%) 1 applic DAILY@2000 TOPIC 04/13/18 20:00 05/13/18 19:59 04/17/18 19:51 Dopamine HCl/ Dextrose 250 ml @ 0 mls/hr Q24H IV 04/18/18 02:00 05/18/18 01:59 04/18/18 02:07 Doxycycline Hyclate 100 mg/ Dextrose 100 ml @ 100 mls/hr Q12HR IV 04/16/18 21:00 04/23/18 20:59 04/18/18 08:56 Guaifenesin (Robitussin) 300 mg Q6H PRN ORAL For Cough 04/14/18 17:00 05/14/18 16:59 04/16/18 02:07 Heparin Sodium (Porcine) (Heparin 5000 units/ml) 5,000 units EVERY 12 HOURS SUBQ 04/12/18 21:00 05/12/18 20:59 04/17/18 20:41 Isosorbide Dinitrate (Isordil) 10 mg TID ORAL 04/16/18 18:00 05/16/18 17:59 04/16/18 17:56 Loperamide HCl (Imodium) 2 mg Q4H PRN ORAL Diarrhea 04/18/18 11:00 05/18/18 10:59 04/18/18 14:47 Meropenem 500 mg/ Sodium Chloride 50 ml @ 100 mls/hr Q24HRS IVPB 04/17/18 14:00 04/22/18 13:59 04/18/18 13:29 Midodrine (Pro-Amatine) 15 mg Q8HR ORAL 04/15/18 14:00 05/12/18 21:59 04/18/18 13:26 Ondansetron HCl (Zofran) 4 mg Q4H PRN IVP Nausea & Vomiting 04/12/18 17:45 05/12/18 17:44 04/18/18 13:35 Pantoprazole (Protonix) 40 mg BID ORAL 04/12/18 18:00 05/12/18 17:59 04/17/18 18:41 Sevelamer Carbonate (Renvela) 800 mg THREE TIMES A DAY ORAL 04/14/18 18:00 05/13/18 08:59 04/18/18 13:26 Zolpidem Tartrate (Ambien) 5 mg QHS PRN ORAL INSOMNIA 04/12/18 23:15 04/19/18 23:14 04/14/18 23:01 Edgardo Mcbride MD Apr 18, 2018 17:59
--- NOTE | 2018-04-18 18:30 | NUR ---
NURSE NOTES: Patient's blood pressure is stable but patient still requires dopamine drip. Patient has an order for Isosorbide to be given at this time. Will not administer this medication due to patient's unstable blood pressure at this time. Patient does not fit parameters for medication. Patient still having diarrhea, but it has significantly improved. Patient has chemical reeves on perineal area and anus/buttocks due to diarrhea. Triad cream placed on patient's chemical reeves at this time. Patient states that the cream helps with the discomfort at this time. Patient appears in better spirits than at the beginning of the shift. Patient bed in low position with bed alarm on and call light in reach. Family member at the bedside. Patient given another dose of imodium at this time per patient request.
--- NOTE | 2018-04-18 19:20 | NUR ---
HAND-OFF: Report given to WILLI Rocha. Patient VS stable at this time on dopamine drip. Patient denies pain or acute discomfort at this time. Patient still has very little appetite. Endorsed to follow up.
--- NOTE | 2018-04-18 19:30 | NUR ---
NURSE NOTES: Received report from WILLI Jackson. Pt's awake, alert and oriented x4, able to make needs known, accompanied by her family member. 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 Dopamine drip running in Right femoral PermaCath at 4mcg/kg/min. HD done in the morning, well tolerated, 500ml taken out. Right upper arm 22 G noted and intact. Left UA AV fistula noted with positive bruit and thrill. Pt's anuric, HD on M, W, F. Safety measures in place with bed locked and in lowest position, side rails x2 up and call light within reach. Will continue to monitor and continue plan of care.
[2018-04-18] MEDS: Dyna-Hex 2% Top Sol 2oz TOPIC SCH (20:15)
--- NOTE | 2018-04-18 22:00 | NUR ---
NURSE NOTES: Pt's resting in bed, watching TV, in no acute distress. VS stable. Will continue to monitor.
[2018-04-18] MEDS: Zolpidem 5mg tab ORAL PRN (22:23)
[2018-04-19] VITALS (44 sets, daily range): BP systolic 77–121; BP diastolic 26–75
--- NOTE | 2018-04-19 | NUR ---
NURSE NOTES: Pt's resting in bed, asleep, in no acute distress. VS stable. Will continue to monitor.
[2018-04-19] MEDS: DOPamine 400mg/250ml 250 ML IV SCH ×2 (00:48→14:27)
--- NOTE | 2018-04-19 02:00 | NUR ---
NURSE NOTES: Pt's resting in bed, asleep, in no acute distress. VS stable. Will continue to monitor.
--- NOTE | 2018-04-19 04:00 | NUR ---
NURSE NOTES: Pt's resting in bed, asleep, in no acute distress. VS stable. Will continue to monitor.
[2018-04-19 05:59] LABS: ALANINE AMINOTRANSFERASE 13 U/L (12-78); ALBUMIN/GLOBULIN RATIO 0.6 (1.0-2.7); ALKALINE PHOSPHATASE 170 U/L (46-116); ANION GAP 20 mmol/L (5-15); ASPARTATE AMINO TRANSFERASE 16 U/L (15-37); BILIRUBIN,TOTAL 0.6 MG/DL (0.2-1.0); BLOOD UREA NITROGEN 39 mg/dL (7-18); CALCIUM 8.1 MG/DL (8.5-10.1); CARBON DIOXIDE 21 MMOL/L (21-32); CHLORIDE 94 MMOL/L (98-107); CREATININE 11.7 MG/DL (0.55-1.30); POTASSIUM 4.1 MMOL/L (3.5-5.1); SODIUM 135 MMOL/L (136-145)
--- NOTE | 2018-04-19 06:00 | NUR ---
NURSE NOTES: Pt's resting in bed, asleep, in no acute distress. VS stable. Will continue to monitor.
[2018-04-19 06:01] LABS: BASOPHILS % (AUTO) 1.9 % (0.0-2.0); EOSINOPHILS % (AUTO) 3.9 % (0.0-3.0); HEMATOCRIT 32.1 % (37.0-47.0); HEMOGLOBIN 11.8 G/DL (12.0-16.0); LYMPHOCYTES % (AUTO) 21.2 % (20.0-45.0); MEAN CORPUSCULAR VOLUME 94 FL (80-99); MONOCYTES % (AUTO) 5.6 % (1.0-10.0); NEUTROPHILS % (AUTO) 67.5 % (45.0-75.0); PLATELET COUNT 171 K/UL (150-450); RED BLOOD COUNT 3.41 M/UL (4.20-5.40); RED CELL DISTRIBUTION WIDTH 14.8 % (11.6-14.8); WHITE BLOOD COUNT 4.9 K/UL (4.8-10.8)
[2018-04-19] MEDS: Midodrine 10mg tab ORAL SCH ×3 (06:15→21:43)
--- NOTE | 2018-04-19 07:30 | NUR ---
HAND-OFF: Report given to WILLI Rivas.
--- NOTE | 2018-04-19 07:40 | NUR ---
NURSE NOTES: Received report from Evelyn. Patient observed to be sleeping. Patient is AAO x 4, able to verbally speak her needs, follows commands, and opens eyes spontaneously. Patient does not appear in any acute distress and reports that she is not feeling any pain or respirator distress. Patient does state that she is very sleepy from the the medication that she was given the night before that gave her the best sleep ever. Patient is being monitored on the surveillance monitor. VS 98/37, HR 58, RR21 and SPO2 93%. Patient falls back to sleep very quickly, she is very drowsy. Patient is on 2L NC. Patient is anuric and uses bedside commode for BMs. Patient has a permacath that is running Dopa 6 mcgs at this time to sustain her hypotension. Patient has a 22G RFA peripheral IV that gave some resistance with a flush. Safety measures are in place with bed locked in the lowest position, side rails up x 3. Will continue to monitor and follow plan of care.
[2018-04-19] MEDS ORDERED: NS 275ml ONE (09:50)
[2018-04-19] MEDS ORDERED: Tubing IV Secondary IV ONE (09:50)
--- NOTE | 2018-04-19 10:30 | NUR ---
NURSE NOTES: Patient observed while giving meds, still very drowsy however is very responsive. Patient asked for her morning breakfast tray, a washcloth and extra condiments for her breakfast. Patient is able to self reposition. VSS. Will continue to monitor and follow plan of care.
[2018-04-19] MEDS: Aspirin Baby 81mg ORAL SCH (11:29)
[2018-04-19] MEDS: Heparin 5000 units/ml inj SUBQ SCH ×2 (11:41→21:46)
--- NOTE | 2018-04-19 11:50 | NUR ---
NURSE NOTES: Patient observed bedside. Patient stated that she was feeling unwell. BP is now SBP 80s. Patient received HD yesterday. Gave patient very limited fluid challenge to INC BP. Patient's BP responded well. VS 100/55. Patient is AAO x 4, able to verbally speak her needs, follows commands, and opens eyes spontaneously. Patient does not appear in any acute distress. Patient refused her lunch try. Patient is being monitored on the site monitor and in SR. Patient is on 2L NC. Patient is anuric and afebrile. Patient has a permacath that is running Dopa 6 mcgs at this time to sustain her hypotension. Safety measures are in place with bed locked in the lowest position, side rails up x 3. Will continue to monitor and follow plan of care.
--- NOTE | 2018-04-19 11:56 | Nephrology Progress Note ---
Assessment/Plan Problem List: (1) ESRD (end stage renal disease) on dialysis (2) Hypotension (3) Encephalopathy Assessment: improved Assessment ESRD on HD- HypoThyroidism- Periodic Hypotension- encephalopathic , metabolic- Plan add asa and isordil for rising Troponin add prn imodium for loose bm HD next 04/20/18 per orders midodrine per consultants Cardiac advise for low HR Subjective ROS Limited/Unobtainable: No Constitutional: Reports: other - diarrheam improved Objective Objective Last 24 Hour Vital Signs Date Time Temp Pulse Resp B/P (MAP) Pulse Ox O2 Delivery O2 Flow Rate FiO2 04/19/18 11:30 79 19 87/33 (51) 92 04/19/18 11:00 57 21 86/42 (57) 92 04/19/18 11:00 86/42 04/19/18 10:30 58 20 98/43 (61) 92 04/19/18 10:00 54 22 90/75 (80) 93 04/19/18 10:00 90/75 04/19/18 09:30 56 21 90/26 (47) 95 04/19/18 09:00 111/52 04/19/18 09:00 87/33 04/19/18 09:00 60 22 111/52 (71) 92 04/19/18 08:30 56 20 97/47 (64) 93 04/19/18 08:00 55 04/19/18 08:00 55 21 98/37 (57) 93 04/19/18 08:00 98/37 04/19/18 07:30 55 21 95/27 (49) 93 04/19/18 07:00 89/54 04/19/18 07:00 98.5 58 15 96/40 (58) 93 04/19/18 06:00 95/42 04/19/18 06:00 60 15 95/42 (59) 93 04/19/18 05:30 60 15 100/50 (67) 93 04/19/18 05:00 102/48 04/19/18 05:00 61 16 101/51 (68) 97 04/19/18 04:30 59 20 121/41 (67) 97 04/19/18 04:00 57 04/19/18 04:00 58 21 105/48 (67) 97 04/19/18 04:00 Room Air 3.0 04/19/18 04:00 105/48 04/19/18 03:30 62 18 104/55 (71) 100 04/19/18 03:00 57 21 79/58 (65) 98 04/19/18 03:00 101/35 04/19/18 02:30 54 25 106/58 (74) 97 04/19/18 02:00 87/72 04/19/18 02:00 100 20 110/63 (79) 90 04/19/18 01:30 70 22 97/42 (60) 88 04/19/18 01:00 97/42 04/19/18 01:00 98.2 59 26 118/53 (74) 86 04/19/18 00:48 90/58 04/19/18 00:47 50 21 81/38 (52) 88 04/19/18 00:30 72 21 90/36 (54) 93 04/19/18 00:00 96/40 04/19/18 00:00 47 23 100/37 (58) 100 04/19/18 00:00 52 04/19/18 00:00 Room Air 3.0 04/18/18 23:30 48 24 96/36 (56) 95 04/18/18 23:00 96/36 04/18/18 23:00 61 27 97/39 (58) 100 04/18/18 22:30 98.2 59 19 100/38 (58) 98 04/18/18 22:30 59 19 96/38 (57) 98 04/18/18 22:00 96/38 04/18/18 22:00 67 19 89/42 (58) 95 04/18/18 21:30 64 15 89/37 (54) 97 04/18/18 21:00 59 18 92/48 (63) 97 04/18/18 21:00 89/37 04/18/18 20:30 63 17 90/40 (57) 93 04/18/18 20:00 Room Air 3.0 04/18/18 20:00 63 04/18/18 20:00 90/40 04/18/18 20:00 61 18 93/41 (58) 92 04/18/18 19:30 98.0 61 10 98/50 (66) 91 04/18/18 19:00 93/41 04/18/18 19:00 67 18 92/46 (61) 90 04/18/18 18:44 Nasal Cannula 4.0 36 04/18/18 18:44 97 Nasal Cannula 4.0 36 04/18/18 18:30 66 18 107/50 (69) 92 04/18/18 18:00 112/69 18 18:00 112/69 18 18:00 64 18 112/69 (83) 93 04/18/18 17:30 68 20 102/68 (79) 93 04/18/18 17:00 67 19 116/54 (74) 92 04/18/18 17:00 116/54 04/18/18 16:30 60 21 121/44 (69) 91 04/18/18 16:00 67 04/18/18 16:00 Room Air 3.0 04/18/18 16:00 63 15 95/70 (78) 92 04/18/18 16:00 95/70 04/18/18 15:56 97.7 04/18/18 15:31 Room Air 04/18/18 15:30 62 17 119/64 (82) 92 04/18/18 15:00 64 19 114/65 (81) 93 04/18/18 15:00 114/65 04/18/18 14:30 60 17 135/57 (83) 93 04/18/18 14:00 62 15 126/59 (81) 93 04/18/18 14:00 126/59 04/18/18 13:30 64 18 113/54 (73) 93 04/18/18 13:00 67 21 110/47 (68) 93 04/18/18 13:00 110/47 04/18/18 13:00 90/48 04/18/18 12:30 73 19 90/48 (62) 92 04/18/18 12:00 98.0 58 22 109/67 (81) 92 04/18/18 12:00 59 04/18/18 12:00 109/67 04/18/18 12:00 Room Air 3.0 Intake and Output 04/18/18 04/19/18 18:59 06:59 Intake Total 275.12 ml 186.915 ml Output Total 500 ml 0 ml Balance -224.88 ml 186.915 ml IV Total 275.12 ml 186.915 ml Output Urine Total 0 ml 0 ml Hemodialysis UF 500 ml # Bowel Movements 11 3 Laboratory Tests 04/19/18 03:40: White Blood Count 4.9, Red Blood Count 3.41L, Hemoglobin 11.8L, Hematocrit 32.1L , Mean Corpuscular Volume 94, Mean Corpuscular Hemoglobin 34.5H, Mean Corpuscular Hemoglobin Concent 36.6H, Red Cell Distribution Width 14.8, Platelet Count 171, Mean Platelet Volume 9.4, Neutrophils (%) (Auto) 67.5, Lymphocytes (%) (Auto) 21.2, Monocytes (%) (Auto) 5.6, Eosinophils (%) (Auto) 3.9H, Basophils (%) (Auto) 1.9, Sodium Level 135L, Potassium Level 4.1, Chloride Level 94L, Carbon Dioxide Level 21, Anion Gap 20H, Blood Urea Nitrogen 39H, Creatinine 11.7H, Estimat Glomerular Filtration Rate 4.1, Glucose Level 78 , Calcium Level 8.1L, Total Bilirubin 0.6, Aspartate Amino Transf (AST/SGOT) 16 , Alanine Aminotransferase (ALT/SGPT) 13, Alkaline Phosphatase 170H, Total Protein 7.7, Albumin 3.0L, Globulin 4.7, Albumin/Globulin Ratio 0.6L Height (Feet): 5 Height (Inches): 6.00 Weight (Pounds): 200 General Appearance: no apparent distress Cardiovascular: bradycardia Respiratory/Chest: decreased breath sounds Abdomen: soft Objective no change Fredrick Conner MD Apr 19, 2018 11:56
--- NOTE | 2018-04-19 13:29 | Internal Med Progress Note ---
Subjective Date of Service: Apr 19, 2018 Physician Name Edward Harrell Attending Physician Ash Henley MD Current Medications Medications (Trade) Dose Ordered Sig/Marcos Route PRN Reason Start Time Stop Time Status Last Admin Dose Admin Acetaminophen (Tylenol) 650 mg Q6H PRN ORAL Mild Pain/Temp > 100.5 04/12/18 17:45 05/12/18 17:44 04/17/18 21:57 Aspirin (ASA) 81 mg DAILY ORAL 04/17/18 09:00 05/17/18 08:59 04/19/18 11:29 Chlorhexidine Gluconate (Nivia-Hex 2%) 1 applic DAILY@2000 TOPIC 04/13/18 20:00 05/13/18 19:59 04/18/18 20:15 Dopamine HCl/ Dextrose 250 ml @ 0 mls/hr Q24H IV 04/18/18 02:00 05/18/18 01:59 04/19/18 00:48 Doxycycline Hyclate 100 mg/ Dextrose 100 ml @ 100 mls/hr Q12HR IV 04/16/18 21:00 04/23/18 20:59 04/19/18 12:17 Guaifenesin (Robitussin) 300 mg Q6H PRN ORAL For Cough 04/14/18 17:00 05/14/18 16:59 04/16/18 02:07 Heparin Sodium (Porcine) (Heparin 5000 units/ml) 5,000 units EVERY 12 HOURS SUBQ 04/12/18 21:00 05/12/18 20:59 04/19/18 11:41 Isosorbide Dinitrate (Isordil) 10 mg TID ORAL 04/16/18 18:00 05/16/18 17:59 04/16/18 17:56 Loperamide HCl (Imodium) 2 mg Q4H PRN ORAL Diarrhea 04/18/18 11:00 05/18/18 10:59 04/18/18 22:23 Meropenem 500 mg/ Sodium Chloride 50 ml @ 100 mls/hr Q24HRS IVPB 04/17/18 14:00 04/22/18 13:59 04/18/18 13:29 Midodrine (Pro-Amatine) 15 mg Q8HR ORAL 04/15/18 14:00 05/12/18 21:59 04/19/18 06:15 Ondansetron HCl (Zofran) 4 mg Q4H PRN IVP Nausea & Vomiting 04/12/18 17:45 05/12/18 17:44 04/18/18 13:35 Pantoprazole (Protonix) 40 mg BID ORAL 04/12/18 18:00 05/12/18 17:59 04/19/18 11:29 Sevelamer Carbonate (Renvela) 1,600 mg THREE TIMES A DAY ORAL 04/19/18 13:00 05/13/18 08:59 Voriconazole (Vfend) 200 mg EVERY 12 HOURS ORAL 04/18/18 21:00 04/25/18 20:59 04/19/18 11:28 Zolpidem Tartrate (Ambien) 5 mg QHS PRN ORAL INSOMNIA 04/12/18 23:15 04/19/18 23:14 04/18/18 22:23 Allergies: Coded Allergies: CEFAZOLIN (Verified Allergy, Unknown, 10/02/10) CIPROFLOXACIN (Verified Allergy, Unknown, 10/02/10) GENTAMICIN (Verified Allergy, Unknown, 10/02/10) KETAMINE (Verified Allergy, Unknown, 03/29/18) LEVOFLOXACIN (Verified Allergy, Unknown, 10/02/10) PENICILLINS (Verified Allergy, Unknown, ITCH, 10/02/10) Uncoded Allergies: CONTRAST MEDIA (Adverse Reaction, Mild, MILD ITCHING AFTER CONTRAST MEDIA, 04/30/17) ROS Limited/Unobtainable: No Constitutional: Reports: no symptoms HEENT: Reports: no symptoms Cardiovascular: Reports: no symptoms Respiratory: Reports: no symptoms Gastrointestinal/Abdominal: Reports: no symptoms Genitourinary: Reports: no symptoms Neurologic/Psychiatric: Reports: no symptoms Subjective 53 YO F admitted with shortness of breath. Now pneumonia. Cover for Int John- Dr Henley. ICU. Continues on dopamine. Objective Last Vital Signs Date Time Temp Pulse Resp B/P (MAP) Pulse Ox O2 Delivery O2 Flow Rate FiO2 04/19/18 11:30 79 19 87/33 (51) 92 04/19/18 07:00 98.5 04/19/18 04:00 Room Air 3.0 04/18/18 18:44 36 Laboratory Tests Test 04/19/18 03:40 04/19/18 12:35 White Blood Count 4.9 K/UL (4.8-10.8) Red Blood Count 3.41 M/UL (4.20-5.40) L Hemoglobin 11.8 G/DL (12.0-16.0) L Hematocrit 32.1 % (37.0-47.0) L Mean Corpuscular Volume 94 FL (80-99) Mean Corpuscular Hemoglobin 34.5 PG (27.0-31.0) H Mean Corpuscular Hemoglobin Concent 36.6 G/DL (32.0-36.0) H Red Cell Distribution Width 14.8 % (11.6-14.8) Platelet Count 171 K/UL (150-450) Mean Platelet Volume 9.4 FL (6.5-10.1) Neutrophils (%) (Auto) 67.5 % (45.0-75.0) Lymphocytes (%) (Auto) 21.2 % (20.0-45.0) Monocytes (%) (Auto) 5.6 % (1.0-10.0) Eosinophils (%) (Auto) 3.9 % (0.0-3.0) H Basophils (%) (Auto) 1.9 % (0.0-2.0) Sodium Level 135 MMOL/L (136-145) L Potassium Level 4.1 MMOL/L (3.5-5.1) Chloride Level 94 MMOL/L (98-107) L Carbon Dioxide Level 21 MMOL/L (21-32) Anion Gap 20 mmol/L (5-15) H Blood Urea Nitrogen 39 mg/dL (7-18) H Creatinine 11.7 MG/DL (0.55-1.30) H Estimat Glomerular Filtration Rate 4.1 mL/min (>60) Glucose Level 78 MG/DL (74-106) Calcium Level 8.1 MG/DL (8.5-10.1) L Total Bilirubin 0.6 MG/DL (0.2-1.0) Aspartate Amino Transf (AST/SGOT) 16 U/L (15-37) Alanine Aminotransferase (ALT/SGPT) 13 U/L (12-78) Alkaline Phosphatase 170 U/L (46-116) H C-Reactive Protein, Quantitative Pending Total Protein 7.7 G/DL (6.4-8.2) Albumin 3.0 G/DL (3.4-5.0) L Globulin 4.7 g/dL Albumin/Globulin Ratio 0.6 (1.0-2.7) L Phosphorus Level Pending Intake and Output 04/18/18 04/19/18 18:59 06:59 Intake Total 275.12 ml 186.915 ml Output Total 500 ml 0 ml Balance -224.88 ml 186.915 ml IV Total 275.12 ml 186.915 ml Output Urine Total 0 ml 0 ml Hemodialysis UF 500 ml # Bowel Movements 11 3 Objective Objective GENERAL: Awake, responsive, alert HEAD AND NECK: Pupils equal and reactive to light. Extraocular movements intact. Neck was supple. No JVD. LUNGS: Fair air entry. Poor respiratory effort. No wheeze or rhonchi. Decreased air in the bases. HEART: S1 and S2. Distant heart sounds. No murmur. ABDOMEN: Soft, nondistended, and nontender. Morbidly obese. EXTREMITIES: No cyanosis, clubbing, or edema. Right femoral area PermCath as well as left upper extremity AV fistula, functional. NEUROLOGIC: Cranial nerves II through XII are grossly intact. The patient is moving all the extremities spontaneously. Gait was not assessed due to the patient's status. PSYCHIATRIC: Mood and affect are intact. Assessment/Plan Assessment/Plan Assessment/Plan Assessment/Plan 1. Sepsis, most likely secondary to left upper lobe and, to a lesser extent, medial right lower lobe most likely representing multifocal pneumonia. 2. Hypotension, possible septic shock. 3. Pancytopenia with severe thrombocytopenia resolving. 4. End-stage renal disease, on hemodialysis. 5. Altered mental status, most likely toxic metabolic encephalopathy as a result of infection as well as uremia. 6. Anemia of chronic kidney disease. 7. Morbid obesity. 8. Bradycardia. 9. Diarrhea PLAN: In ICU. follow up laboratory and cultures. Dr. Fredrick Conner from Nephrology consult; next hemodialysis 04/20/18. Dr. Mcbride from ID consult. Discussed with the family member, brother at the bedside. Abx: Vancomycin, Meropenem, Azithromycin Code status is Full Code. DVT prophylaxis: heparin subcutaneous. continue Dopamine Drip CT of chest noted. Cortisol level Pending. C. Diff neg. Send stool for repeat Continue dopamine Edward Harrell MD Apr 19, 2018 13:29
--- NOTE | 2018-04-19 14:32 | Cardiac Electrophysiology PN ---
Assessment/Plan Assessment/Plan 1. Troponin elevation, likely due to renal failure. 0.05 and 0.08. The patient does not have any chest pain. The patient also is hypotensive and it could be also contributing to demand ischemia. 2. Likely septic shock. On Dopamine drip, midodrine 10 mg tid addition to vancomycin and meropenem per Dr. Mcbride. DC Isordil 3. Bradycardia. Still on dopamine 6 mcg 4. Anterior T-wave inversion. No chest pain. EF 60% on echocardiogram. 5. End-stage renal disease, on hemodialysis, per Dr. Conner. 6. Diarrhea C Diff was negative 7. Sputum culture positive for Mold DW RN Subjective Subjective Still on Dopamine drip 6 mcg. HR 50-60s and BP 90. Objective Last 24 Hour Vital Signs Date Time Temp Pulse Resp B/P (MAP) Pulse Ox O2 Delivery O2 Flow Rate FiO2 04/19/18 11:30 79 19 87/33 (51) 92 04/19/18 11:00 57 21 86/42 (57) 92 04/19/18 11:00 86/42 04/19/18 10:30 58 20 98/43 (61) 92 04/19/18 10:00 54 22 90/75 (80) 93 04/19/18 10:00 90/75 04/19/18 09:30 56 21 90/26 (47) 95 04/19/18 09:00 111/52 04/19/18 09:00 87/33 04/19/18 09:00 60 22 111/52 (71) 92 04/19/18 08:30 56 20 97/47 (64) 93 04/19/18 08:00 55 04/19/18 08:00 55 21 98/37 (57) 93 04/19/18 08:00 98/37 04/19/18 07:30 55 21 95/27 (49) 93 04/19/18 07:00 89/54 04/19/18 07:00 98.5 58 15 96/40 (58) 93 04/19/18 06:00 95/42 04/19/18 06:00 60 15 95/42 (59) 93 04/19/18 05:30 60 15 100/50 (67) 93 04/19/18 05:00 102/48 04/19/18 05:00 61 16 101/51 (68) 97 04/19/18 04:30 59 20 121/41 (67) 97 04/19/18 04:00 57 04/19/18 04:00 58 21 105/48 (67) 97 04/19/18 04:00 Room Air 3.0 04/19/18 04:00 105/48 04/19/18 03:30 62 18 104/55 (71) 100 04/19/18 03:00 57 21 79/58 (65) 98 04/19/18 03:00 101/35 04/19/18 02:30 54 25 106/58 (74) 97 04/19/18 02:00 87/72 04/19/18 02:00 100 20 110/63 (79) 90 04/19/18 01:30 70 22 97/42 (60) 88 04/19/18 01:00 97/42 04/19/18 01:00 98.2 59 26 118/53 (74) 86 04/19/18 00:48 90/58 04/19/18 00:47 50 21 81/38 (52) 88 04/19/18 00:30 72 21 90/36 (54) 93 04/19/18 00:00 96/40 04/19/18 00:00 47 23 100/37 (58) 100 04/19/18 00:00 52 04/19/18 00:00 Room Air 3.0 04/18/18 23:30 48 24 96/36 (56) 95 04/18/18 23:00 96/36 04/18/18 23:00 61 27 97/39 (58) 100 04/18/18 22:30 98.2 59 19 100/38 (58) 98 04/18/18 22:30 59 19 96/38 (57) 98 04/18/18 22:00 96/38 04/18/18 22:00 67 19 89/42 (58) 95 04/18/18 21:30 64 15 89/37 (54) 97 04/18/18 21:00 59 18 92/48 (63) 97 04/18/18 21:00 89/37 04/18/18 20:30 63 17 90/40 (57) 93 04/18/18 20:00 Room Air 3.0 04/18/18 20:00 63 12/31/18 20:00 90/40 04/18/18 20:00 61 18 93/41 (58) 92 04/18/18 19:30 98.0 61 10 98/50 (66) 91 04/18/18 19:00 93/41 04/18/18 19:00 67 18 92/46 (61) 90 04/18/18 18:44 Nasal Cannula 4.0 36 04/18/18 18:44 97 Nasal Cannula 4.0 36 04/18/18 18:30 66 18 107/50 (69) 92 04/18/18 18:00 112/69 04/18/18 18:00 112/69 04/18/18 18:00 64 18 112/69 (83) 93 04/18/18 17:30 68 20 102/68 (79) 93 04/18/18 17:00 67 19 116/54 (74) 92 04/18/18 17:00 116/54 04/18/18 16:30 60 21 121/44 (69) 91 04/18/18 16:00 67 04/18/18 16:00 Room Air 3.0 04/18/18 16:00 63 15 95/70 (78) 92 04/18/18 16:00 95/70 04/18/18 15:56 97.7 04/18/18 15:31 Room Air 04/18/18 15:30 62 17 119/64 (82) 92 04/18/18 15:00 64 19 114/65 (81) 93 04/18/18 15:00 114/65 04/18/18 14:30 60 17 135/57 (83) 93 Intake and Output 04/18/18 04/19/18 18:59 06:59 Intake Total 275.12 ml 186.915 ml Output Total 500 ml 0 ml Balance -224.88 ml 186.915 ml IV Total 275.12 ml 186.915 ml Output Urine Total 0 ml 0 ml Hemodialysis UF 500 ml # Bowel Movements 11 3 Laboratory Tests Test 04/19/18 03:40 04/19/18 12:35 White Blood Count 4.9 K/UL (4.8-10.8) Red Blood Count 3.41 M/UL (4.20-5.40) L Hemoglobin 11.8 G/DL (12.0-16.0) L Hematocrit 32.1 % (37.0-47.0) L Mean Corpuscular Volume 94 FL (80-99) Mean Corpuscular Hemoglobin 34.5 PG (27.0-31.0) H Mean Corpuscular Hemoglobin Concent 36.6 G/DL (32.0-36.0) H Red Cell Distribution Width 14.8 % (11.6-14.8) Platelet Count 171 K/UL (150-450) Mean Platelet Volume 9.4 FL (6.5-10.1) Neutrophils (%) (Auto) 67.5 % (45.0-75.0) Lymphocytes (%) (Auto) 21.2 % (20.0-45.0) Monocytes (%) (Auto) 5.6 % (1.0-10.0) Eosinophils (%) (Auto) 3.9 % (0.0-3.0) H Basophils (%) (Auto) 1.9 % (0.0-2.0) Sodium Level 135 MMOL/L (136-145) L Potassium Level 4.1 MMOL/L (3.5-5.1) Chloride Level 94 MMOL/L (98-107) L Carbon Dioxide Level 21 MMOL/L (21-32) Anion Gap 20 mmol/L (5-15) H Blood Urea Nitrogen 39 mg/dL (7-18) H Creatinine 11.7 MG/DL (0.55-1.30) H Estimat Glomerular Filtration Rate 4.1 mL/min (>60) Glucose Level 78 MG/DL (74-106) Calcium Level 8.1 MG/DL (8.5-10.1) L Total Bilirubin 0.6 MG/DL (0.2-1.0) Aspartate Amino Transf (AST/SGOT) 16 U/L (15-37) Alanine Aminotransferase (ALT/SGPT) 13 U/L (12-78) Alkaline Phosphatase 170 U/L (46-116) H C-Reactive Protein, Quantitative 5.7 mg/dL (0.00-0.90) H Total Protein 7.7 G/DL (6.4-8.2) Albumin 3.0 G/DL (3.4-5.0) L Globulin 4.7 g/dL Albumin/Globulin Ratio 0.6 (1.0-2.7) L Phosphorus Level 4.6 MG/DL (2.5-4.9) Objective HEAD AND NECK: No JVD. LUNGS: Decreased breath sounds. CARDIOVASCULAR: Kp S1 and S2 ABDOMEN: Soft. EXTREMITIES: No edema Tc Liang MD Apr 19, 2018 14:32
--- NOTE | 2018-04-19 17:15 | NUR ---
NURSE NOTES: Patient observed bedside. Patient again states that she feels unwell. BP is now stable with SBP 95-100s. VSS on the school lunch monitor. Patient is AAO x 4, able to verbally speak her needs, follows commands, and opens eyes spontaneously. Patient does not appear in any acute distress. Patient given her dinner tray. Patient is on 2L NC. Patient is anuric and afebrile. Patient has a permacath that is running Dopa 6 mcgs at this time to sustain her hypotension. Safety measures are in place with bed locked in the lowest position, side rails up x 3. Will continue to monitor and follow plan of care.
--- NOTE | 2018-04-19 19:30 | NUR ---
NURSE NOTES: Received report from WILLI Salas. Pt's awake, alert and oriented x4, able to make needs known, accompanied by her family member. Pt connected to front desk monitor, HR 56, BP 107/50 Resp 19, O2 sat 98 with 2 L/NC. Dopamine drip running in Right femoral PermaCath at 6mcg/kg/min. Right upper arm 22 G noted and intact. Left UA AV fistula noted with positive bruit and thrill. Pt's anuric, HD on M, W, F. Safety measures in place with bed locked and in lowest position, side rails x2 up and call light within reach. Will continue to monitor and continue plan of care.
[2018-04-19] MEDS: Dyna-Hex 2% Top Sol 2oz TOPIC SCH (20:04)
--- NOTE | 2018-04-19 22:00 | NUR ---
NURSE NOTES: Pt's resting in bed, in no distress. VS stable. Will continue to monitor.
[2018-04-20] VITALS (47 sets, daily range): BP systolic 69–148; BP diastolic 25–82
--- NOTE | 2018-04-20 | NUR ---
NURSE NOTES: Pt's resting in bed, in no distress. VS stable. Will continue to monitor.
--- NOTE | 2018-04-20 02:00 | NUR ---
NURSE NOTES: Pt's resting in bed, in no distress. VS stable. Will continue to monitor.
[2018-04-20] MEDS: DOPamine 400mg/250ml 250 ML IV SCH ×3 (03:29→21:19)
--- NOTE | 2018-04-20 04:00 | NUR ---
NURSE NOTES: Pt's resting in bed, asleep, in no acute distress. VS stable, Dopamine still at 6mcg/kg/min. Will continue to monitor
--- NOTE | 2018-04-20 06:00 | NUR ---
NURSE NOTES: Pt's resting in bed, asleep, Dopamine drip currently at 7mcg/kg/min, in no acute distress. VS stable. Will continue to monitor
[2018-04-20] MEDS: Midodrine 10mg tab ORAL SCH ×3 (06:44→22:07)
--- NOTE | 2018-04-20 07:19 | NUR ---
HAND-OFF: Report given to WILLI Conway.
--- NOTE | 2018-04-20 08:48 | NUR ---
NURSE NOTES: lab back to draw for AM labs, pt consenting. dopamine increased to 10mcg/hr.
[2018-04-20] MEDS: Heparin 5000 units/ml inj SUBQ SCH ×2 (09:00→20:32)
--- NOTE | 2018-04-20 09:26 | Diagnostic Imaging Report ---
Indication: Dyspnea Comparison: 04/16/2018 A single view chest radiograph was obtained. Findings: Interstitial edema again suspected mild in degree, slightly improved from the prior study. Heart size is stable. Large bore catheter projected over the right atrium entering from the IVC. Pleural-based density lateral aspect of the left lung again noted. Extensive surgical clips in the thoracic inlet and left axillary region noted. IMPRESSION: Some improvement in the initial edema. Other findings stable
[2018-04-20] MEDS: Aspirin Baby 81mg ORAL SCH (09:48)
--- NOTE | 2018-04-20 10:43 | Pulmonolgy Critical Care Note ---
Critical Care - Asmt/Plan Problems: (1) Septic shock (2) Pneumonia (3) Hypotension (4) ESRD (end stage renal disease) on dialysis (5) CHF (congestive heart failure) (6) Hypoparathyroidism Respiratory: monitor respiratory rate, adjust FIO2, CXR, other - will need sputum induction Cardiac: continue pressors Renal: F/U I&O, check electrolytes Infectious Disease: check cultures, continue antibiotics Gastrointestinal: continue feedings/current rate Endocrine: monitor blood sugar Neurologic: PRN Morphine Disposition: keep in ICU Notes Reviewed: renal, ID Discussed with: nurses, consultants Critical Care - Objective Last 24 Hour Vital Signs Date Time Temp Pulse Resp B/P (MAP) Pulse Ox O2 Delivery O2 Flow Rate FiO2 04/20/18 09:46 136/69 04/20/18 07:00 53 17 127/44 (71) 96 04/20/18 07:00 127/44 04/20/18 06:30 58 17 105/74 (84) 96 04/20/18 06:00 54 21 115/47 (69) 92 04/20/18 06:00 105/74 04/20/18 05:32 64 19 98/46 (63) 100 04/20/18 05:30 51 12 71/50 (57) 100 04/20/18 05:00 71/50 04/20/18 05:00 63 19 122/41 (68) 98 04/20/18 04:30 98.8 56 18 145/49 (81) 99 04/20/18 04:00 77 04/20/18 04:00 53 7 145/41 (75) 100 04/20/18 04:00 Room Air 04/20/18 03:45 71 24 128/41 (70) 97 04/20/18 03:30 70 16 91/40 (57) 89 04/20/18 03:29 103/67 04/20/18 03:00 66 21 103/67 (79) 97 04/20/18 02:30 58 17 100/37 (58) 98 04/20/18 02:00 57 23 95/43 (60) 92 04/20/18 01:30 55 21 102/36 (58) 93 04/20/18 01:00 51 22 100/34 (56) 93 04/20/18 00:30 54 20 89/43 (58) 94 04/20/18 00:00 70 04/20/18 00:00 98.7 55 20 118/40 (66) 98 04/20/18 00:00 Room Air 04/19/18 23:30 59 21 109/42 (64) 100 04/19/18 23:00 51 19 90/32 (51) 100 04/19/18 22:30 53 21 102/35 (57) 98 04/19/18 22:00 54 9 110/46 (67) 100 04/19/18 21:30 55 9 105/35 (58) 98 04/19/18 21:00 60 16 108/44 (65) 96 04/19/18 20:30 62 13 105/47 (66) 96 04/19/18 20:00 59 04/19/18 20:00 56 11 98/44 (62) 97 04/19/18 20:00 Room Air 04/19/18 19:30 55 11 107/50 (69) 98 04/19/18 19:00 55 15 109/52 (71) 97 04/19/18 18:00 60 18 109/51 (70) 95 04/19/18 17:00 56 23 93/35 (54) 95 04/19/18 16:00 58 04/19/18 16:00 98.6 62 20 106/50 (68) 95 04/19/18 16:00 Room Air 04/19/18 15:00 57 20 106/44 (64) 95 04/19/18 14:30 55 20 77/41 (53) 92 04/19/18 14:27 97/45 04/19/18 14:00 58 20 97/45 (62) 91 04/19/18 13:30 56 19 86/40 (55) 91 04/19/18 13:00 58 19 89/41 (57) 93 04/19/18 12:30 62 16 96/46 (63) 93 04/19/18 12:00 61 17 100/55 (70) 92 04/19/18 12:00 71 04/19/18 12:00 Room Air 04/19/18 11:30 79 19 87/33 (51) 92 04/19/18 11:00 57 21 86/42 (57) 92 04/19/18 11:00 86/42 Status: awake, sedated Lungs: rales, rhonchi Heart: HR/BP unstable Abdomen: soft, non-tender, feeding tube Extremities: edema Critical Care - Subjective ROS Limited/Unobtainable: No ICU Day: 8 FI02: 36 Sputum Amount: None I&O: Intake and Output 04/19/18 04/20/18 19:00 07:00 Intake Total 523.2515 ml 350.514 ml Output Total 0 ml 0 ml Balance 523.2515 ml 350.514 ml Intake Oral 100 ml IV Total 423.2515 ml 350.514 ml Output Urine Total 0 ml 0 ml # Bowel Movements 3 CXR: Left pleural based infiltrate unchanged. Labs: Laboratory Tests Test 04/19/18 12:35 Phosphorus Level 4.6 MG/DL (2.5-4.9) Cuate Schmidt MD Apr 20, 2018 10:43
--- NOTE | 2018-04-20 11:51 | Internal Med Progress Note ---
Subjective Date of Service: Apr 20, 2018 Physician Name Edward Harrell Attending Physician Ash Hneley MD Current Medications Medications (Trade) Dose Ordered Sig/Marcos Route PRN Reason Start Time Stop Time Status Last Admin Dose Admin Acetaminophen (Tylenol) 650 mg Q6H PRN ORAL Mild Pain/Temp > 100.5 04/12/18 17:45 05/12/18 17:44 04/17/18 21:57 Aspirin (ASA) 81 mg DAILY ORAL 04/17/18 09:00 05/17/18 08:59 04/20/18 09:48 Chlorhexidine Gluconate (Nivia-Hex 2%) 1 applic DAILY@2000 TOPIC 04/13/18 20:00 05/13/18 19:59 04/19/18 20:04 Dopamine HCl/ Dextrose 250 ml @ 0 mls/hr Q24H IV 04/18/18 02:00 05/18/18 01:59 04/20/18 03:29 Doxycycline Hyclate 100 mg/ Dextrose 100 ml @ 100 mls/hr Q12HR IV 04/16/18 21:00 04/23/18 20:59 04/20/18 09:43 Guaifenesin (Robitussin) 300 mg Q6H PRN ORAL For Cough 04/14/18 17:00 05/14/18 16:59 04/16/18 02:07 Heparin Sodium (Porcine) (Heparin 5000 units/ml) 5,000 units EVERY 12 HOURS SUBQ 04/12/18 21:00 05/12/18 20:59 04/19/18 21:46 Isosorbide Dinitrate (Isordil) 10 mg TID ORAL 04/16/18 18:00 05/16/18 17:59 04/20/18 09:46 Loperamide HCl (Imodium) 2 mg Q4H PRN ORAL Diarrhea 04/18/18 11:00 05/18/18 10:59 04/18/18 22:23 Meropenem 500 mg/ Sodium Chloride 50 ml @ 100 mls/hr Q24HRS IVPB 04/17/18 14:00 04/22/18 13:59 04/19/18 14:28 Midodrine (Pro-Amatine) 10 mg Q8HR ORAL 04/19/18 14:00 05/19/18 13:59 04/20/18 06:44 Ondansetron HCl (Zofran) 4 mg Q4H PRN IVP Nausea & Vomiting 04/12/18 17:45 05/12/18 17:44 04/19/18 20:04 Pantoprazole (Protonix) 40 mg BID ORAL 04/12/18 18:00 05/12/18 17:59 04/20/18 09:48 Sevelamer Carbonate (Renvela) 1,600 mg THREE TIMES A DAY ORAL 04/19/18 13:00 05/13/18 08:59 04/20/18 09:49 Voriconazole (Vfend) 200 mg EVERY 12 HOURS ORAL 04/18/18 21:00 04/25/18 20:59 04/20/18 09:47 Allergies: Coded Allergies: CEFAZOLIN (Verified Allergy, Unknown, 10/02/10) CIPROFLOXACIN (Verified Allergy, Unknown, 10/02/10) GENTAMICIN (Verified Allergy, Unknown, 10/02/10) KETAMINE (Verified Allergy, Unknown, 03/29/18) LEVOFLOXACIN (Verified Allergy, Unknown, 10/02/10) PENICILLINS (Verified Allergy, Unknown, ITCH, 10/02/10) Uncoded Allergies: CONTRAST MEDIA (Adverse Reaction, Mild, MILD ITCHING AFTER CONTRAST MEDIA, 04/30/17) ROS Limited/Unobtainable: No Constitutional: Reports: no symptoms HEENT: Reports: no symptoms Cardiovascular: Reports: no symptoms Respiratory: Reports: no symptoms Gastrointestinal/Abdominal: Reports: no symptoms Genitourinary: Reports: no symptoms Neurologic/Psychiatric: Reports: no symptoms Subjective 53 YO F admitted with shortness of breath. Now pneumonia. Cover for Int Med- Dr Henley. ICU. Continues on dopamine. Objective Last Vital Signs Date Time Temp Pulse Resp B/P (MAP) Pulse Ox O2 Delivery O2 Flow Rate FiO2 04/20/18 09:46 136/69 04/20/18 07:00 53 17 96 04/20/18 04:30 98.8 04/20/18 04:00 Room Air 04/19/18 04:00 3.0 04/18/18 18:44 36 Laboratory Tests Test 04/19/18 12:35 Phosphorus Level 4.6 MG/DL (2.5-4.9) Intake and Output 04/19/18 04/20/18 19:00 07:00 Intake Total 523.2515 ml 350.514 ml Output Total 0 ml 0 ml Balance 523.2515 ml 350.514 ml Intake Oral 100 ml IV Total 423.2515 ml 350.514 ml Output Urine Total 0 ml 0 ml # Bowel Movements 3 Objective Objective GENERAL: Awake, responsive, alert HEAD AND NECK: Pupils equal and reactive to light. Extraocular movements intact. Neck was supple. No JVD. LUNGS: Fair air entry. Poor respiratory effort. No wheeze or rhonchi. Decreased air in the bases. HEART: S1 and S2. Distant heart sounds. No murmur. ABDOMEN: Soft, nondistended, and nontender. Morbidly obese. EXTREMITIES: No cyanosis, clubbing, or edema. Right femoral area PermCath as well as left upper extremity AV fistula, functional. NEUROLOGIC: Cranial nerves II through XII are grossly intact. The patient is moving all the extremities spontaneously. Gait was not assessed due to the patient's status. PSYCHIATRIC: Mood and affect are intact. Assessment/Plan Assessment/Plan Assessment/Plan Assessment/Plan 1. Sepsis, most likely secondary to left upper lobe and, to a lesser extent, medial right lower lobe most likely representing multifocal pneumonia. 2. Hypotension, possible septic shock. 3. Pancytopenia with severe thrombocytopenia resolving. 4. End-stage renal disease, on hemodialysis. 5. Altered mental status, most likely toxic metabolic encephalopathy as a result of infection as well as uremia. 6. Anemia of chronic kidney disease. 7. Morbid obesity. 8. Bradycardia. 9. Diarrhea PLAN: In ICU. follow up laboratory and cultures. Dr. Fredrick Conner from Nephrology consult; next hemodialysis 04/20/18. Dr. Mcbride from ID consult. Discussed with the family member, brother at the bedside. Abx: Vancomycin, Meropenem, Azithromycin Code status is Full Code. DVT prophylaxis: heparin subcutaneous. continue Dopamine Drip CT of chest noted. Cortisol level Pending. C. Diff neg. Send stool for repeat Continue dopamine Edward Harrell MD Apr 20, 2018 11:51
--- NOTE | 2018-04-20 12:17 | NUR ---
CASE MANAGEMENT: REVIEW SI: ESRD ON HD . PNA T 98.8 HR 53 RR 7 BP 71/50 SAT 89% ROOM AIR IS: DOPAMINE IV Q24HR DOXYCYCLINE IV Q12HR MEROPENEM IV Q24HR MIDODRINE PO Q8HR HEPARIN SQ Q12HR PROTONIX PO BID ICU STATUS DCP: PATIENT IS FROM HOME
--- NOTE | 2018-04-20 12:17 | Nephrology Progress Note ---
Assessment/Plan Problem List: (1) ESRD (end stage renal disease) on dialysis (2) Hypotension (3) Anemia of renal disease (4) Metabolic encephalopathy Assessment ESRD on HD- HypoThyroidism- Periodic Hypotension- encephalopathic , metabolic- Plan labs pending add asa and isordil for rising Troponin add prn imodium for loose bm HD next 04/21/18 postponed per orders midodrine per consultants Cardiac advise for low HR Subjective ROS Limited/Unobtainable: No Constitutional: Reports: malaise Objective Objective Last 24 Hour Vital Signs Date Time Temp Pulse Resp B/P (MAP) Pulse Ox O2 Delivery O2 Flow Rate FiO2 04/20/18 09:46 136/69 04/20/18 07:00 53 17 127/44 (71) 96 04/20/18 07:00 127/44 04/20/18 06:30 58 17 105/74 (84) 96 04/20/18 06:00 54 21 115/47 (69) 92 04/20/18 06:00 105/74 04/20/18 05:32 64 19 98/46 (63) 100 04/20/18 05:30 51 12 71/50 (57) 100 04/20/18 05:00 71/50 04/20/18 05:00 63 19 122/41 (68) 98 04/20/18 04:30 98.8 56 18 145/49 (81) 99 04/20/18 04:00 77 04/20/18 04:00 53 7 145/41 (75) 100 04/20/18 04:00 Room Air 04/20/18 03:45 71 24 128/41 (70) 97 04/20/18 03:30 70 16 91/40 (57) 89 04/20/18 03:29 103/67 04/20/18 03:00 66 21 103/67 (79) 97 04/20/18 02:30 58 17 100/37 (58) 98 04/20/18 02:00 57 23 95/43 (60) 92 04/20/18 01:30 55 21 102/36 (58) 93 04/20/18 01:00 51 22 100/34 (56) 93 04/20/18 00:30 54 20 89/43 (58) 94 04/20/18 00:00 70 04/20/18 00:00 98.7 55 20 118/40 (66) 98 04/20/18 00:00 Room Air 04/19/18 23:30 59 21 109/42 (64) 100 04/19/18 23:00 51 19 90/32 (51) 100 04/19/18 22:30 53 21 102/35 (57) 98 04/19/18 22:00 54 9 110/46 (67) 100 04/19/18 21:30 55 9 105/35 (58) 98 04/19/18 21:00 60 16 108/44 (65) 96 04/19/18 20:30 62 13 105/47 (66) 96 04/19/18 20:00 59 04/19/18 20:00 56 11 98/44 (62) 97 04/19/18 20:00 Room Air 04/19/18 19:30 55 11 107/50 (69) 98 04/19/18 19:00 55 15 109/52 (71) 97 04/19/18 18:00 60 18 109/51 (70) 95 04/19/18 17:00 56 23 93/35 (54) 95 04/19/18 16:00 58 04/19/18 16:00 98.6 62 20 106/50 (68) 95 04/19/18 16:00 Room Air 04/19/18 15:00 57 20 106/44 (64) 95 04/19/18 14:30 55 20 77/41 (53) 92 04/19/18 14:27 97/45 04/19/18 14:00 58 20 97/45 (62) 91 04/19/18 13:30 56 19 86/40 (55) 91 04/19/18 13:00 58 19 89/41 (57) 93 04/19/18 12:30 62 16 96/46 (63) 93 Intake and Output 04/19/18 04/20/18 18:59 06:59 Intake Total 523.2515 ml 347.129 ml Output Total 0 ml 0 ml Balance 523.2515 ml 347.129 ml Intake Oral 100 ml IV Total 423.2515 ml 347.129 ml Output Urine Total 0 ml 0 ml # Bowel Movements 3 Laboratory Tests 04/19/18 12:35: Phosphorus Level 4.6 Height (Feet): 5 Height (Inches): 6.00 Weight (Pounds): 204 General Appearance: no apparent distress Cardiovascular: bradycardia Respiratory/Chest: decreased breath sounds Abdomen: soft Objective no change Fredrick Conner MD Apr 20, 2018 12:17
--- NOTE | 2018-04-20 12:40 | Cardiac Electrophysiology PN ---
Assessment/Plan Assessment/Plan 1. Troponin elevation, likely due to renal failure. 0.05 and 0.08. The patient does not have any chest pain. Likely due to renal failure demand ischemia. 2. Likely septic shock. On Dopamine drip, midodrine 10 mg tid and iv Abx per Dr. Mcbride. DC Isordil 3. Bradycardia. Still on dopamine 10 mcg 4. Anterior T-wave inversion. No chest pain. EF 60% 5. End-stage renal disease, on hemodialysis, per Dr. Conner. 6. Diarrhea C Diff was negative 7. Sputum culture positive for Mold. FU ID DW RN Subjective Subjective On Dopamine drip 10 mcg. HR 70 and BP 110. Objective Last 24 Hour Vital Signs Date Time Temp Pulse Resp B/P (MAP) Pulse Ox O2 Delivery O2 Flow Rate FiO2 04/20/18 09:46 136/69 04/20/18 08:00 98 Nasal Cannula 4.0 36 04/20/18 08:00 Nasal Cannula 4.0 36 04/20/18 07:00 53 17 127/44 (71) 96 04/20/18 07:00 127/44 04/20/18 06:30 58 17 105/74 (84) 96 04/20/18 06:00 54 21 115/47 (69) 92 04/20/18 06:00 105/74 04/20/18 05:32 64 19 98/46 (63) 100 04/20/18 05:30 51 12 71/50 (57) 100 04/20/18 05:00 71/50 04/20/18 05:00 63 19 122/41 (68) 98 04/20/18 04:30 98.8 56 18 145/49 (81) 99 04/20/18 04:00 77 04/20/18 04:00 53 7 145/41 (75) 100 04/20/18 04:00 Room Air 04/20/18 03:45 71 24 128/41 (70) 97 04/20/18 03:30 70 16 91/40 (57) 89 04/20/18 03:29 103/67 04/20/18 03:00 66 21 103/67 (79) 97 04/20/18 02:30 58 17 100/37 (58) 98 04/20/18 02:00 57 23 95/43 (60) 92 04/20/18 01:30 55 21 102/36 (58) 93 04/20/18 01:00 51 22 100/34 (56) 93 04/20/18 00:30 54 20 89/43 (58) 94 04/20/18 00:00 70 04/20/18 00:00 98.7 55 20 118/40 (66) 98 04/20/18 00:00 Room Air 04/19/18 23:30 59 21 109/42 (64) 100 04/19/18 23:00 51 19 90/32 (51) 100 04/19/18 22:30 53 21 102/35 (57) 98 04/19/18 22:00 54 9 110/46 (67) 100 04/19/18 21:30 55 9 105/35 (58) 98 04/19/18 21:00 60 16 108/44 (65) 96 04/19/18 20:30 62 13 105/47 (66) 96 04/19/18 20:00 59 04/19/18 20:00 56 11 98/44 (62) 97 04/19/18 20:00 Room Air 04/19/18 19:30 55 11 107/50 (69) 98 04/19/18 19:00 55 15 109/52 (71) 97 04/19/18 18:00 60 18 109/51 (70) 95 04/19/18 17:00 56 23 93/35 (54) 95 04/19/18 16:00 58 04/19/18 16:00 98.6 62 20 106/50 (68) 95 04/19/18 16:00 Room Air 04/19/18 15:00 57 20 106/44 (64) 95 04/19/18 14:30 55 20 77/41 (53) 92 04/19/18 14:27 97/45 04/19/18 14:00 58 20 97/45 (62) 91 04/19/18 13:30 56 19 86/40 (55) 91 04/19/18 13:00 58 19 89/41 (57) 93 Intake and Output 04/19/18 04/20/18 18:59 06:59 Intake Total 523.2515 ml 347.129 ml Output Total 0 ml 0 ml Balance 523.2515 ml 347.129 ml Intake Oral 100 ml IV Total 423.2515 ml 347.129 ml Output Urine Total 0 ml 0 ml # Bowel Movements 3 Laboratory Tests Test 04/19/18 12:35 Phosphorus Level 4.6 MG/DL (2.5-4.9) Objective HEAD AND NECK: No JVD. LUNGS: Decreased breath sounds. CARDIOVASCULAR: Kp S1 and S2 ABDOMEN: Soft. EXTREMITIES: No edema Tc Liang MD Apr 20, 2018 12:40
--- NOTE | 2018-04-20 15:30 | NUR ---
NURSE NOTES: called [facility] call center regarding clarification for rescheduling H.D. Awaiting call back.
--- NOTE | 2018-04-20 15:47 | NUR ---
NURSE NOTES: received call back from call center. H.D rescheduled for 04/21/18 d/t no labs this am and short staffing for H.D. no order for blood draw through [facility].
--- NOTE | 2018-04-20 16:24 | NUR ---
NURSE NOTES: Titrated Levo from 2 mcgs to 6 mcgs. SBP was 80/34. BP is now 114/37. Will continue to monitor.
[2018-04-20] MEDS ORDERED: Tubing IV Secondary IV ONE (16:35)
[2018-04-20] MEDS ORDERED: NS 500ML ONE (16:35)
--- NOTE | 2018-04-20 19:32 | Infectious Diseases Prog Note ---
Assessment/Plan Assessment/Plan ASSESSMENT: 1. sepsis, shock, pneumonia, CT chest noted, pressors, bradycardia, sputum culture with mold, ? aspergillus pna - - continue meropenem, doxycycline and voriconazole (mold on sputum culture) - hearing better off vancomycin - monitor labs and chest x-ray - mycoplasma IGM is negative, cannot obtain legionella urine antigen secondary to no urine output (HD) - icu care, remains pressors - d/w RN 2. End-stage renal disease, hemodialysis, has a right femoral line hemodialysis line and also left arm graft. 3. History of fistula in the past. 4. History of PermCath in the past 5. Anemia of chronic disease. 6. Hypertension - Blood pressure treatment per primary. 7. No history of diabetes mentioned. 8. Chronic kidney disease. 9. Obesity. 10. History of cholecystectomy. 11. History of parathyroidectomy. 12. History of carpal tunnel syndrome. 13. History of fractures, ORIF. 14. Past medical history noted. 15. Multiple drug allergies including cefazolin, Cipro, contrast media, gentamicin, ketamine, Levaquin and penicillin, she seems to tolerate carbapenems. 16. Social history is negative . 17. Family history is noncontributory. 18. MAR was noted. 19. Case discussed with RN. 20. Continue treatment per primary consultants. 21. Notes were noted and orders were entered. Subjective Constitutional: Reports: other - on pressors ; Denies: fever HEENT: Denies: congestion Respiratory: Denies: shortness of breath Cardiovascular: Denies: chest pain Gastrointestinal/Abdominal: Denies: nausea, vomiting, diarrhea Genitourinary: Reports: other - no mckinney Neurologic: Denies: headache Psychiatric: Denies: depression Skin: Denies: rash Hematologic: Denies: bleeding Musculoskeletal: Denies: pain Allergies: Coded Allergies: CEFAZOLIN (Verified Allergy, Unknown, 10/02/10) CIPROFLOXACIN (Verified Allergy, Unknown, 10/02/10) GENTAMICIN (Verified Allergy, Unknown, 10/02/10) KETAMINE (Verified Allergy, Unknown, 03/29/18) LEVOFLOXACIN (Verified Allergy, Unknown, 10/02/10) PENICILLINS (Verified Allergy, Unknown, ITCH, 10/02/10) Uncoded Allergies: CONTRAST MEDIA (Adverse Reaction, Mild, MILD ITCHING AFTER CONTRAST MEDIA, 04/30/17) Objective Vital Signs Last 24 Hour Vital Signs Date Time Temp Pulse Resp B/P (MAP) Pulse Ox O2 Delivery O2 Flow Rate FiO2 04/20/18 18:00 64 20 132/53 (79) 94 04/20/18 17:30 95 19 148/34 (72) 94 04/20/18 17:00 55 18 83/53 (63) 93 04/20/18 16:30 74 19 78/51 (60) 93 04/20/18 16:00 98.0 69 23 102/54 (70) 96 04/20/18 15:30 64 13 125/62 (83) 97 04/20/18 15:00 62 16 92/35 (54) 96 04/20/18 14:30 69 20 109/39 (62) 96 04/20/18 14:00 54 22 105/35 (58) 97 04/20/18 13:00 70 19 93/65 (74) 98 04/20/18 12:47 108/45 04/20/18 12:46 108/45 04/20/18 12:30 94 20 108/45 (66) 96 04/20/18 12:00 97.9 96 18 113/49 (70) 96 04/20/18 12:00 Nasal Cannula 2.0 04/20/18 12:00 68 04/20/18 11:30 56 0 84/62 (69) 99 04/20/18 11:00 70 17 114/53 (73) 98 04/20/18 10:30 59 11 135/55 (81) 100 04/20/18 10:00 62 14 134/59 (84) 96 04/20/18 09:46 136/69 04/20/18 09:30 59 12 136/69 (91) 98 04/20/18 09:00 82 17 120/74 (89) 97 04/20/18 08:30 57 20 92/70 (77) 99 04/20/18 08:00 Nasal Cannula 2.0 04/20/18 08:00 98 Nasal Cannula 4.0 36 04/20/18 08:00 68 04/20/18 08:00 Nasal Cannula 4.0 36 04/20/18 08:00 97.7 90 19 128/60 (82) 94 04/20/18 07:00 53 17 127/44 (71) 96 04/20/18 07:00 127/44 04/20/18 06:30 58 17 105/74 (84) 96 04/20/18 06:00 54 21 115/47 (69) 92 04/20/18 06:00 105/74 04/20/18 05:32 64 19 98/46 (63) 100 04/20/18 05:30 51 12 71/50 (57) 100 04/20/18 05:00 71/50 04/20/18 05:00 63 19 122/41 (68) 98 04/20/18 04:30 98.8 56 18 145/49 (81) 99 04/20/18 04:00 77 04/20/18 04:00 53 7 145/41 (75) 100 04/20/18 04:00 Room Air 04/20/18 03:45 71 24 128/41 (70) 97 04/20/18 03:30 70 16 91/40 (57) 89 04/20/18 03:29 103/67 04/20/18 03:00 66 21 103/67 (79) 97 04/20/18 02:30 58 17 100/37 (58) 98 04/20/18 02:00 57 23 95/43 (60) 92 04/20/18 01:30 55 21 102/36 (58) 93 04/20/18 01:00 51 22 100/34 (56) 93 04/20/18 00:30 54 20 89/43 (58) 94 04/20/18 00:00 70 04/20/18 00:00 98.7 55 20 118/40 (66) 98 04/20/18 00:00 Room Air 04/19/18 23:30 59 21 109/42 (64) 100 04/19/18 23:00 51 19 90/32 (51) 100 04/19/18 22:30 53 21 102/35 (57) 98 04/19/18 22:00 54 9 110/46 (67) 100 04/19/18 21:30 55 9 105/35 (58) 98 04/19/18 21:00 60 16 108/44 (65) 96 04/19/18 20:30 62 13 105/47 (66) 96 04/19/18 20:00 59 04/19/18 20:00 56 11 98/44 (62) 97 04/19/18 20:00 Room Air 04/19/18 19:30 55 11 107/50 (69) 98 Height (Feet): 5 Height (Inches): 6.00 Weight (Pounds): 204 General Appearance: no acute distress HEENT: normocephalic, atraumatic, anicteric, mucous membranes moist Respiratory/Chest: crackles/rales, rhonchi - bilaterally Cardiovascular: regular rhythm, no gallop/murmur, no JVD Abdomen: normal bowel sounds, soft, non tender, no organomegaly, non distended Genitourinary: other - no mckinney Extremities: no cyanosis Skin: no rash Neurologic/Psychiatric: nut culler 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 Follow-up after appropriate treatment recommended to ensure resolution. * Patchy opacities in the right upper lobe are also likely infectious in etiology. These obscure the previously described lung nodule. Attention to this area on follow-up recommended. * Prominent hilar and mediastinal lymph nodes, possibly reactive in etiology. * Small bilateral pleural effusions. * Large hiatal hernia * Dialysis catheter tip in the right atrium. Evidence of central venous occlusion with multiple collateral veins noted in the mediastinum. * Nonspecific calcifications in the bilateral breasts are correlation with most recent mammogram recommended. If none performed recently, then recommend follow- up screening mammogram. * Findings suggestive of renal osteodystrophy Chest x-ray - 04/14 - Findings: Heart size and mediastinal contours stable. Femoral approach dialysis catheter is again noted. Multiple surgical clips noted in the bilateral axilla. Portions of a stents again visualized in the right axilla. Multiple surgical clips noted in the right arm. Product Safety And Standards Engineer opacities in the left midlung peripherally. No evidence of pneumothorax. There is patchy opacity at the right base. Osseous structures stable. Calcifications in the right breast noted. Impression: Left-sided airspace opacities most concerning for pneumonia. There is slight interval increased density compared to prior exam which may be technical. 04/16/18 - chest x-ray - IMPRESSION: 1. Bilateral airspace opacities, most confluent in the left midlung field. Could be from consolidation/pneumonia. There is a broad differential. Follow to ensure resolution and exclude other mimics. 2. Suspect bilateral pleural effusions. 3. Vascular congestion. 04/20/18: Comparison: 04/16/2018 A single view chest radiograph was obtained. Findings: Interstitial edema again suspected mild in degree, slightly improved from the prior study. Heart size is stable. Large bore catheter projected over the right atrium entering from the IVC. Pleural-based density lateral aspect of the left lung again noted. Extensive surgical clips in the thoracic inlet and left axillary region noted. IMPRESSION: Some improvement in the initial edema. Other findings stable Microbiology Date/Time Source Procedure Growth Status 04/12/18 11:35 Blood Blood Culture - Final NO GROWTH AFTER 5 DAYS Complete 04/15/18 04:00 Sputum Induced Gram Stain - Final Resulted 04/15/18 04:00 Sputum Culture - Preliminary MOLD Nirali Dubliniensis Usual Upper Respiratory Lilia Resulted 04/16/18 12:03 Stool Clostridium difficile Toxin Assay - Final Complete 04/12/18 12:10 Rectum - Final NO CARBAPENEM-RESISTANT ENTEROBACTERI... Complete Labs Test 04/18/18 05:00 04/19/18 03:40 04/19/18 12:35 White Blood Count 4.6 K/UL (4.8-10.8) 4.9 K/UL (4.8-10.8) Red Blood Count 3.54 M/UL (4.20-5.40) 3.41 M/UL (4.20-5.40) Hemoglobin 10.9 G/DL (12.0-16.0) 11.8 G/DL (12.0-16.0) Hematocrit 33.0 % (37.0-47.0) 32.1 % (37.0-47.0) Mean Corpuscular Volume 93 FL (80-99) 94 FL (80-99) Mean Corpuscular Hemoglobin 30.6 PG (27.0-31.0) 34.5 PG (27.0-31.0) Mean Corpuscular Hemoglobin Concent 32.9 G/DL (32.0-36.0) 36.6 G/DL (32.0-36.0) Red Cell Distribution Width 14.4 % (11.6-14.8) 14.8 % (11.6-14.8) Platelet Count 235 K/UL (150-450) 171 K/UL (150-450) Mean Platelet Volume 8.1 FL (6.5-10.1) 9.4 FL (6.5-10.1) Neutrophils (%) (Auto) 57.8 % (45.0-75.0) 67.5 % (45.0-75.0) Lymphocytes (%) (Auto) 24.6 % (20.0-45.0) 21.2 % (20.0-45.0) Monocytes (%) (Auto) 9.2 % (1.0-10.0) 5.6 % (1.0-10.0) Eosinophils (%) (Auto) 8.0 % (0.0-3.0) 3.9 % (0.0-3.0) Basophils (%) (Auto) 0.5 % (0.0-2.0) 1.9 % (0.0-2.0) Sodium Level 134 MMOL/L (136-145) 135 MMOL/L (136-145) Potassium Level 3.8 MMOL/L (3.5-5.1) 4.1 MMOL/L (3.5-5.1) Chloride Level 94 MMOL/L (98-107) 94 MMOL/L (98-107) Carbon Dioxide Level 24 MMOL/L (21-32) 21 MMOL/L (21-32) Anion Gap 16 mmol/L (5-15) 20 mmol/L (5-15) Blood Urea Nitrogen 51 mg/dL (7-18) 39 mg/dL (7-18) Creatinine 14.1 MG/DL (0.55-1.30) 11.7 MG/DL (0.55-1.30) Estimat Glomerular Filtration Rate 3.3 mL/min (>60) 4.1 mL/min (>60) Glucose Level 84 MG/DL (74-106) 78 MG/DL (74-106) Calcium Level 7.6 MG/DL (8.5-10.1) 8.1 MG/DL (8.5-10.1) Phosphorus Level 5.1 MG/DL (2.5-4.9) 4.6 MG/DL (2.5-4.9) Total Bilirubin 0.6 MG/DL (0.2-1.0) 0.6 MG/DL (0.2-1.0) Aspartate Amino Transf (AST/SGOT) 18 U/L (15-37) 16 U/L (15-37) Alanine Aminotransferase (ALT/SGPT) 13 U/L (12-78) 13 U/L (12-78) Alkaline Phosphatase 169 U/L (46-116) 170 U/L (46-116) Total Protein 7.5 G/DL (6.4-8.2) 7.7 G/DL (6.4-8.2) Albumin 2.9 G/DL (3.4-5.0) 3.0 G/DL (3.4-5.0) Globulin 4.6 g/dL 4.7 g/dL Albumin/Globulin Ratio 0.6 (1.0-2.7) 0.6 (1.0-2.7) C-Reactive Protein, Quantitative 5.7 mg/dL (0.00-0.90) Current Medications Medications (Trade) Dose Ordered Sig/Marcos Route PRN Reason Start Time Stop Time Status Last Admin Dose Admin Acetaminophen (Tylenol) 650 mg Q6H PRN ORAL Mild Pain/Temp > 100.5 04/12/18 17:45 05/12/18 17:44 04/17/18 21:57 Aspirin (ASA) 81 mg DAILY ORAL 04/17/18 09:00 05/17/18 08:59 04/20/18 09:48 Chlorhexidine Gluconate (Nivia-Hex 2%) 1 applic DAILY@2000 TOPIC 04/13/18 20:00 05/13/18 19:59 04/19/18 20:04 Dopamine HCl/ Dextrose 250 ml @ 0 mls/hr Q24H IV 04/18/18 02:00 05/18/18 01:59 04/20/18 12:47 Doxycycline Hyclate 100 mg/ Dextrose 100 ml @ 100 mls/hr Q12HR IV 04/16/18 21:00 04/23/18 20:59 04/20/18 09:43 Guaifenesin (Robitussin) 300 mg Q6H PRN ORAL For Cough 04/14/18 17:00 05/14/18 16:59 04/16/18 02:07 Heparin Sodium (Porcine) (Heparin 5000 units/ml) 5,000 units EVERY 12 HOURS SUBQ 04/12/18 21:00 05/12/18 20:59 04/19/18 21:46 Isosorbide Dinitrate (Isordil) 10 mg TID ORAL 04/16/18 18:00 05/16/18 17:59 04/20/18 12:46 Loperamide HCl (Imodium) 2 mg Q4H PRN ORAL Diarrhea 04/18/18 11:00 05/18/18 10:59 04/18/18 22:23 Meropenem 500 mg/ Sodium Chloride 50 ml @ 100 mls/hr Q24HRS IVPB 04/17/18 14:00 04/22/18 13:59 04/20/18 13:02 Midodrine (Pro-Amatine) 10 mg Q8HR ORAL 04/19/18 14:00 05/19/18 13:59 04/20/18 13:01 Ondansetron HCl (Zofran) 4 mg Q4H PRN IVP Nausea & Vomiting 04/12/18 17:45 05/12/18 17:44 04/20/18 16:46 Pantoprazole (Protonix) 40 mg BID ORAL 04/12/18 18:00 05/12/18 17:59 04/20/18 09:48 Sevelamer Carbonate (Renvela) 1,600 mg THREE TIMES A DAY ORAL 04/19/18 13:00 05/13/18 08:59 04/20/18 12:47 Voriconazole (Vfend) 200 mg EVERY 12 HOURS ORAL 04/18/18 21:00 04/25/18 20:59 04/20/18 09:47 Edgardo Mcbride MD Apr 20, 2018 19:32
--- NOTE | 2018-04-20 20:00 | NUR ---
NURSE NOTES: Received pt in bed with eyes opens. AOx4. SR on the monitor. On room air at this time. Pt removes and places 2L NC. Sat 95% at this time. Pt having dinner at this time. Right Femoral Dialysis cath at this time. Dialysis cath being used for dopamine. Dopamine currently running @ 10mcg/min. Pt aneuric but gets out of bed to use bedside commode. Bed in lowest position, side rails upx3. No signs of distress noted. Will continue to monitor.
--- NOTE | 2018-04-20 20:20 | NUR ---
NURSE NOTES: Paged MD Schmidt in regards to patient requesting CPT at this time. She feels like she has phlegm but can not get it out. ordered CPT q4HR at this time.
[2018-04-20] MEDS: Dyna-Hex 2% Top Sol 2oz TOPIC SCH (20:27)
--- NOTE | 2018-04-20 23:54 | NUR ---
NURSE NOTES: Pt complaining of abdominal pain at this time. States " might be the fish". Paged MD Schmidt at this time.
[2018-04-21] VITALS (38 sets, daily range): BP systolic 85–138; BP diastolic 5–72
--- NOTE | 2018-04-21 00:28 | NUR ---
NURSE NOTES: Patient C/O nausea Zofran PRN given at this time. Will continue to monitor
--- NOTE | 2018-04-21 00:45 | NUR ---
NURSE NOTES: Paged MD Schmidt at this time for some pain med. Message left awaiting call back.
--- NOTE | 2018-04-21 03:00 | NUR ---
NURSE NOTES: CHG bath given at this time. assisted pt with morning care at this time. Will continue to monitor
[2018-04-21] MEDS: Midodrine 10mg tab ORAL SCH ×3 (05:21→21:33)
[2018-04-21] MEDS: DOPamine 400mg/250ml 250 ML IV SCH ×3 (05:21→22:58)
--- NOTE | 2018-04-21 05:55 | NUR ---
NURSE NOTES: Pt noted to be shouting and crying that something is wrong. She does not know what is happening. MD Schmidt paged at this time.
--- NOTE | 2018-04-21 07:04 | NUR ---
NURSE NOTES: MD Schmidt called back with orders for Xanax PRN. Orders read back and confirmed by
[2018-04-21] MEDS ORDERED: ALPRAZolam 0.5mg tab ORAL PRN (07:30)
--- NOTE | 2018-04-21 07:30 | NUR ---
HAND-OFF: Report given to Soila MÁRQUEZ using SBAR.
--- NOTE | 2018-04-21 07:45 | NUR ---
NURSE NOTES: Received report from WILLI Griffith. Patient observed to be awake, alert however very anxious. Patient verbalizes needs, follows commands and opens eyes spontaneously. Patient does not appear in any acute distress and however patient reports some epigastric mid section pain. Patient is being monitored on the monitor and storage bin tender. VSS. Patient is on 2L NC however she takes off the NC very often. Patient is anuric and uses bedside commode for BMs. Patient has a permacath that is running Dopa 10 mcgs at this time to sustain her hypotension. Patient is to receive HD today. Will ensure BP is at an acceptable level in order to sustain her BP throughout her tx. Labs were drawn. Safety measures are in place with bed locked in the lowest position, side rails up x 3. Will continue to monitor and follow plan of care.
[2018-04-21 07:55] LABS: BASOPHILS % (AUTO) 0.4 % (0.0-2.0); EOSINOPHILS % (AUTO) 3.1 % (0.0-3.0); HEMATOCRIT 33.7 % (37.0-47.0); LYMPHOCYTES % (AUTO) 18.1 % (20.0-45.0); MEAN CORPUSCULAR VOLUME 92 FL (80-99); MONOCYTES % (AUTO) 7.6 % (1.0-10.0); NEUTROPHILS % (AUTO) 70.8 % (45.0-75.0); PLATELET COUNT 238 K/UL (150-450); RED BLOOD COUNT 3.68 M/UL (4.20-5.40); RED CELL DISTRIBUTION WIDTH 14.7 % (11.6-14.8); WHITE BLOOD COUNT 6.3 K/UL (4.8-10.8)
--- NOTE | 2018-04-21 08:01 | NUR ---
NURSE NOTES: INC Dopamine from 10 to 14 mcgs to sustain BP during HD tx. Will continue to monitor.
[2018-04-21 08:21] LABS: ALBUMIN 2.9 G/DL (3.4-5.0); ALBUMIN/GLOBULIN RATIO 0.7 (1.0-2.7); ALKALINE PHOSPHATASE 156 U/L (46-116); ANION GAP 15 mmol/L (5-15); ASPARTATE AMINO TRANSFERASE 14 U/L (15-37); BILIRUBIN,TOTAL 0.7 MG/DL (0.2-1.0); BLOOD UREA NITROGEN 47 mg/dL (7-18); CALCIUM 8.1 MG/DL (8.5-10.1); CARBON DIOXIDE 25 MMOL/L (21-32); CHLORIDE 94 MMOL/L (98-107); CREATININE 11.8 MG/DL (0.55-1.30); PHOSPHORUS 5.4 MG/DL (2.5-4.9); POTASSIUM 3.6 MMOL/L (3.5-5.1); SODIUM 133 MMOL/L (136-145)
[2018-04-21 08:31] LABS: ALANINE AMINOTRANSFERASE 9 U/L (12-78)
--- NOTE | 2018-04-21 10:00 | Cardiac Electrophysiology PN ---
Assessment/Plan Assessment/Plan 1. Troponin elevation, due to renal failure. 0.05 and 0.08. The patient does not have any chest pain. Likely due to renal failure demand ischemia. 2. Septic shock. On Dopamine drip, midodrine 10 mg tid and iv Abx per Dr. Mcbride. 3. Bradycardia. Still on dopamine 10 mcg 4. Anterior T-wave inversion. No chest pain. EF 60% 5. End-stage renal disease, on hemodialysis, per Dr. Conner. 6. Diarrhea C Diff was negative 7. Sputum culture positive for Mold. FU ID DW RN Subjective Subjective On Dopamine drip 14 mcg while on HD. Was on 10 mcg of Dopamine. Objective Last 24 Hour Vital Signs Date Time Temp Pulse Resp B/P (MAP) Pulse Ox O2 Delivery O2 Flow Rate FiO2 04/21/18 08:36 Nasal Cannula 4.0 04/21/18 08:00 98.0 74 18 127/61 (83) 98 04/21/18 08:00 Nasal Cannula 2.0 04/21/18 07:00 62 18 93/45 (61) 92 04/21/18 06:00 64 18 111/5 (40) 93 04/21/18 05:30 77 18 103/59 (74) 95 04/21/18 05:21 94/35 04/21/18 05:00 69 18 103/59 (74) 95 04/21/18 04:30 71 18 93/45 (61) 95 04/21/18 04:00 78 04/21/18 04:00 Nasal Cannula 2.0 04/21/18 04:00 97.9 72 19 133/52 (79) 95 04/21/18 03:30 66 16 133/52 (79) 95 04/21/18 03:00 69 18 127/71 (89) 95 04/21/18 02:30 68 21 88/58 (68) 93 04/21/18 02:00 66 22 102/42 (62) 93 04/21/18 01:30 64 21 104/43 (63) 93 04/21/18 01:00 88 13 127/68 (87) 95 04/21/18 00:00 Nasal Cannula 2.0 04/21/18 00:00 68 04/21/18 00:00 97.9 93 20 137/68 (91) 93 04/20/18 23:30 82 13 143/58 (86) 95 04/20/18 23:00 72 13 106/62 (77) 95 04/20/18 22:30 60 13 106/62 (77) 95 04/20/18 22:00 60 14 96/37 (56) 95 04/20/18 21:30 58 11 69/51 (57) 94 04/20/18 21:19 88/25 04/20/18 21:00 81 17 88/25 (46) 93 04/20/18 20:30 81 16 102/70 (81) 95 04/20/18 20:00 95 Room Air 21 04/20/18 20:00 79 04/20/18 20:00 97.7 63 13 139/82 (101) 95 04/20/18 20:00 Nasal Cannula 2.0 04/20/18 20:00 Room Air 21 04/20/18 19:30 81 13 115/82 (93) 95 04/20/18 19:00 81 13 119/61 (80) 94 04/20/18 18:00 64 20 132/53 (79) 94 04/20/18 17:30 95 19 148/34 (72) 94 04/20/18 17:00 55 18 83/53 (63) 93 04/20/18 16:30 74 19 78/51 (60) 93 04/20/18 16:00 61 04/20/18 16:00 98.0 69 23 102/54 (70) 96 04/20/18 16:00 Nasal Cannula 2.0 04/20/18 15:30 64 13 125/62 (83) 97 04/20/18 15:00 62 16 92/35 (54) 96 04/20/18 14:30 69 20 109/39 (62) 96 04/20/18 14:00 54 22 105/35 (58) 97 04/20/18 13:00 70 19 93/65 (74) 98 04/20/18 12:47 108/45 04/20/18 12:46 108/45 04/20/18 12:30 94 20 108/45 (66) 96 04/20/18 12:00 97.9 96 18 113/49 (70) 96 04/20/18 12:00 Nasal Cannula 2.0 04/20/18 12:00 68 04/20/18 11:30 56 0 84/62 (69) 99 04/20/18 11:00 70 17 114/53 (73) 98 04/20/18 10:30 59 11 135/55 (81) 100 04/20/18 10:00 62 14 134/59 (84) 96 Intake and Output 04/20/18 04/21/18 19:00 07:00 Intake Total 150 ml 598.852 ml Output Total 0 ml 0 ml Balance 150 ml 598.852 ml Intake Oral 150 ml 240 ml IV Total 358.852 ml Output Urine Total 0 ml 0 ml # Bowel Movements 3 Laboratory Tests Test 04/21/18 07:35 White Blood Count 6.3 K/UL (4.8-10.8) Red Blood Count 3.68 M/UL (4.20-5.40) L Hemoglobin 11.0 G/DL (12.0-16.0) L Hematocrit 33.7 % (37.0-47.0) L Mean Corpuscular Volume 92 FL (80-99) Mean Corpuscular Hemoglobin 30.0 PG (27.0-31.0) Mean Corpuscular Hemoglobin Concent 32.7 G/DL (32.0-36.0) Red Cell Distribution Width 14.7 % (11.6-14.8) Platelet Count 238 K/UL (150-450) Mean Platelet Volume 8.1 FL (6.5-10.1) Neutrophils (%) (Auto) 70.8 % (45.0-75.0) Lymphocytes (%) (Auto) 18.1 % (20.0-45.0) L Monocytes (%) (Auto) 7.6 % (1.0-10.0) Eosinophils (%) (Auto) 3.1 % (0.0-3.0) H Basophils (%) (Auto) 0.4 % (0.0-2.0) Sodium Level 133 MMOL/L (136-145) L Potassium Level 3.6 MMOL/L (3.5-5.1) Chloride Level 94 MMOL/L (98-107) L Carbon Dioxide Level 25 MMOL/L (21-32) Anion Gap 15 mmol/L (5-15) Blood Urea Nitrogen 47 mg/dL (7-18) H Creatinine 11.8 MG/DL (0.55-1.30) H Estimat Glomerular Filtration Rate 4.0 mL/min (>60) Glucose Level 110 MG/DL (74-106) H Calcium Level 8.1 MG/DL (8.5-10.1) L Phosphorus Level 5.4 MG/DL (2.5-4.9) H Total Bilirubin 0.7 MG/DL (0.2-1.0) Aspartate Amino Transf (AST/SGOT) 14 U/L (15-37) L Alanine Aminotransferase (ALT/SGPT) 9 U/L (12-78) L Alkaline Phosphatase 156 U/L (46-116) H Troponin I 0.259 ng/mL (0.000-0.056) Total Protein 7.2 G/DL (6.4-8.2) Albumin 2.9 G/DL (3.4-5.0) L Globulin 4.3 g/dL Albumin/Globulin Ratio 0.7 (1.0-2.7) L Thyroid Stimulating Hormone (TSH) 0.155 uiU/mL (0.358-3.740) Free Thyroxine 1.37 NG/DL (0.76-1.46) Triiodothyonine (T3) Pending Free Triiodothyronine 1.7 pg/mL (2.3-4.2) L Triiodothyronine (T3) Uptake Pending Microbiology Date/Time Source Procedure Growth Status 04/19/18 02:00 Stool Stool Culture - Preliminary NORMAL FECAL ESTEPHANIE. Resulted Objective HEAD AND NECK: No JVD. LUNGS: Decreased breath sounds. CARDIOVASCULAR: Kp S1 and S2 ABDOMEN: Soft. EXTREMITIES: No edema Tc Liang MD Apr 21, 2018 10:00
--- NOTE | 2018-04-21 10:13 | Pulmonolgy Critical Care Note ---
Critical Care - Asmt/Plan Problems: (1) Septic shock (2) Pneumonia (3) Hypotension (4) ESRD (end stage renal disease) on dialysis (5) CHF (congestive heart failure) (6) Hypoparathyroidism Respiratory: monitor respiratory rate, adjust FIO2, CXR Cardiac: continue to monitor HR/BP Renal: F/U I&O Infectious Disease: check cultures Gastrointestinal: continue feedings/current rate Endocrine: monitor blood sugar, check TSH Hematologic: transfuse if hgb<8.5 Neurologic: PRN Ativan, PRN Morphine, keep patient comfortable Affect: PRN ativan Prophylaxis: Protonix Disposition: keep in ICU Time Spent (Minutes): 40 Notes Reviewed: range aide, renal Discussed with: consultants, family caseworkeradvertising operations manager - Objective Last 24 Hour Vital Signs Date Time Temp Pulse Resp B/P (MAP) Pulse Ox O2 Delivery O2 Flow Rate FiO2 04/21/18 08:36 Nasal Cannula 4.0 04/21/18 08:00 98.0 74 18 127/61 (83) 98 04/21/18 08:00 Nasal Cannula 2.0 04/21/18 07:00 62 18 93/45 (61) 92 04/21/18 06:00 64 18 111/5 (40) 93 04/21/18 05:30 77 18 103/59 (74) 95 04/21/18 05:21 94/35 04/21/18 05:00 69 18 103/59 (74) 95 04/21/18 04:30 71 18 93/45 (61) 95 04/21/18 04:00 78 04/21/18 04:00 Nasal Cannula 2.0 04/21/18 04:00 97.9 72 19 133/52 (79) 95 04/21/18 03:30 66 16 133/52 (79) 95 04/21/18 03:00 69 18 127/71 (89) 95 04/21/18 02:30 68 21 88/58 (68) 93 04/21/18 02:00 66 22 102/42 (62) 93 04/21/18 01:30 64 21 104/43 (63) 93 04/21/18 01:00 88 13 127/68 (87) 95 04/21/18 00:00 Nasal Cannula 2.0 04/21/18 00:00 68 04/21/18 00:00 97.9 93 20 137/68 (91) 93 04/20/18 23:30 82 13 143/58 (86) 95 04/20/18 23:00 72 13 106/62 (77) 95 04/20/18 22:30 60 13 106/62 (77) 95 04/20/18 22:00 60 14 96/37 (56) 95 04/20/18 21:30 58 11 69/51 (57) 94 04/20/18 21:19 88/25 04/20/18 21:00 81 17 88/25 (46) 93 04/20/18 20:30 81 16 102/70 (81) 95 04/20/18 20:00 95 Room Air 21 04/20/18 20:00 79 04/20/18 20:00 97.7 63 13 139/82 (101) 95 04/20/18 20:00 Nasal Cannula 2.0 04/20/18 20:00 Room Air 21 04/20/18 19:30 81 13 115/82 (93) 95 04/20/18 19:00 81 13 119/61 (80) 94 04/20/18 18:00 64 20 132/53 (79) 94 04/20/18 17:30 95 19 148/34 (72) 94 04/20/18 17:00 55 18 83/53 (63) 93 04/20/18 16:30 74 19 78/51 (60) 93 04/20/18 16:00 61 04/20/18 16:00 98.0 69 23 102/54 (70) 96 04/20/18 16:00 Nasal Cannula 2.0 04/20/18 15:30 64 13 125/62 (83) 97 04/20/18 15:00 62 16 92/35 (54) 96 04/20/18 14:30 69 20 109/39 (62) 96 04/20/18 14:00 54 22 105/35 (58) 97 04/20/18 13:00 70 19 93/65 (74) 98 04/20/18 12:47 108/45 04/20/18 12:46 108/45 04/20/18 12:30 94 20 108/45 (66) 96 04/20/18 12:00 97.9 96 18 113/49 (70) 96 04/20/18 12:00 Nasal Cannula 2.0 04/20/18 12:00 68 04/20/18 11:30 56 0 84/62 (69) 99 04/20/18 11:00 70 17 114/53 (73) 98 04/20/18 10:30 59 11 135/55 (81) 100 Status: sedated Condition: critical Neck: full ROM Heart: HR/BP stable Abdomen: soft, non-tender Extremities: no C/C/E Micro: Microbiology Date/Time Source Procedure Growth Status 04/19/18 02:00 Stool Stool Culture - Preliminary NORMAL FECAL ESTEPHANIE. Resulted Critical Care - Subjective ROS Limited/Unobtainable: Yes Interval Events: being dialyzed, awake, less short of breath FI02: 21 Sputum Amount: None I&O: Intake and Output 04/20/18 04/21/18 19:00 07:00 Intake Total 150 ml 598.852 ml Output Total 0 ml 0 ml Balance 150 ml 598.852 ml Intake Oral 150 ml 240 ml IV Total 358.852 ml Output Urine Total 0 ml 0 ml # Bowel Movements 3 CXR: wedge shaped pleural based, left sided not changed. Labs: Laboratory Tests Test 04/21/18 07:35 White Blood Count 6.3 K/UL (4.8-10.8) Red Blood Count 3.68 M/UL (4.20-5.40) L Hemoglobin 11.0 G/DL (12.0-16.0) L Hematocrit 33.7 % (37.0-47.0) L Mean Corpuscular Volume 92 FL (80-99) Mean Corpuscular Hemoglobin 30.0 PG (27.0-31.0) Mean Corpuscular Hemoglobin Concent 32.7 G/DL (32.0-36.0) Red Cell Distribution Width 14.7 % (11.6-14.8) Platelet Count 238 K/UL (150-450) Mean Platelet Volume 8.1 FL (6.5-10.1) Neutrophils (%) (Auto) 70.8 % (45.0-75.0) Lymphocytes (%) (Auto) 18.1 % (20.0-45.0) L Monocytes (%) (Auto) 7.6 % (1.0-10.0) Eosinophils (%) (Auto) 3.1 % (0.0-3.0) H Basophils (%) (Auto) 0.4 % (0.0-2.0) Sodium Level 133 MMOL/L (136-145) L Potassium Level 3.6 MMOL/L (3.5-5.1) Chloride Level 94 MMOL/L (98-107) L Carbon Dioxide Level 25 MMOL/L (21-32) Anion Gap 15 mmol/L (5-15) Blood Urea Nitrogen 47 mg/dL (7-18) H Creatinine 11.8 MG/DL (0.55-1.30) H Estimat Glomerular Filtration Rate 4.0 mL/min (>60) Glucose Level 110 MG/DL (74-106) H Calcium Level 8.1 MG/DL (8.5-10.1) L Phosphorus Level 5.4 MG/DL (2.5-4.9) H Total Bilirubin 0.7 MG/DL (0.2-1.0) Aspartate Amino Transf (AST/SGOT) 14 U/L (15-37) L Alanine Aminotransferase (ALT/SGPT) 9 U/L (12-78) L Alkaline Phosphatase 156 U/L (46-116) H Troponin I 0.259 ng/mL (0.000-0.056) Total Protein 7.2 G/DL (6.4-8.2) Albumin 2.9 G/DL (3.4-5.0) L Globulin 4.3 g/dL Albumin/Globulin Ratio 0.7 (1.0-2.7) L Thyroid Stimulating Hormone (TSH) 0.155 uiU/mL (0.358-3.740) Free Thyroxine 1.37 NG/DL (0.76-1.46) Triiodothyonine (T3) Pending Free Triiodothyronine 1.7 pg/mL (2.3-4.2) L Triiodothyronine (T3) Uptake Pending Cuate Schmidt MD Apr 21, 2018 10:13
--- NOTE | 2018-04-21 10:54 | Nephrology Progress Note ---
Assessment/Plan Problem List: (1) ESRD (end stage renal disease) on dialysis (2) Hypotension (3) Anemia of renal disease (4) Metabolic encephalopathy Assessment ESRD on HD- HypoThyroidism- Periodic Hypotension- encephalopathic , metabolic- Plan seen on HD- Tolerating well. add asa and isordil for rising Troponin add prn imodium for loose bm per orders midodrine per consultants Cardiac advise for low HR Subjective ROS Limited/Unobtainable: No Objective Objective Last 24 Hour Vital Signs Date Time Temp Pulse Resp B/P (MAP) Pulse Ox O2 Delivery O2 Flow Rate FiO2 04/21/18 08:36 Nasal Cannula 4.0 04/21/18 08:00 98.0 74 18 127/61 (83) 98 04/21/18 08:00 Nasal Cannula 2.0 04/21/18 07:00 62 18 93/45 (61) 92 04/21/18 06:00 64 18 111/5 (40) 93 04/21/18 05:30 77 18 103/59 (74) 95 04/21/18 05:21 94/35 04/21/18 05:00 69 18 103/59 (74) 95 04/21/18 04:30 71 18 93/45 (61) 95 04/21/18 04:00 78 04/21/18 04:00 Nasal Cannula 2.0 04/21/18 04:00 97.9 72 19 133/52 (79) 95 04/21/18 03:30 66 16 133/52 (79) 95 04/21/18 03:00 69 18 127/71 (89) 95 04/21/18 02:30 68 21 88/58 (68) 93 04/21/18 02:00 66 22 102/42 (62) 93 04/21/18 01:30 64 21 104/43 (63) 93 04/21/18 01:00 88 13 127/68 (87) 95 04/21/18 00:00 Nasal Cannula 2.0 04/21/18 00:00 68 04/21/18 00:00 97.9 93 20 137/68 (91) 93 04/20/18 23:30 82 13 143/58 (86) 95 04/20/18 23:00 72 13 106/62 (77) 95 04/20/18 22:30 60 13 106/62 (77) 95 04/20/18 22:00 60 14 96/37 (56) 95 04/20/18 21:30 58 11 69/51 (57) 94 04/20/18 21:19 88/25 04/20/18 21:00 81 17 88/25 (46) 93 04/20/18 20:30 81 16 102/70 (81) 95 04/20/18 20:00 95 Room Air 21 04/20/18 20:00 79 04/20/18 20:00 97.7 63 13 139/82 (101) 95 04/20/18 20:00 Nasal Cannula 2.0 04/20/18 20:00 Room Air 21 04/20/18 19:30 81 13 115/82 (93) 95 04/20/18 19:00 81 13 119/61 (80) 94 04/20/18 18:00 64 20 132/53 (79) 94 04/20/18 17:30 95 19 148/34 (72) 94 04/20/18 17:00 55 18 83/53 (63) 93 04/20/18 16:30 74 19 78/51 (60) 93 04/20/18 16:00 61 04/20/18 16:00 98.0 69 23 102/54 (70) 96 04/20/18 16:00 Nasal Cannula 2.0 04/20/18 15:30 64 13 125/62 (83) 97 04/20/18 15:00 62 16 92/35 (54) 96 04/20/18 14:30 69 20 109/39 (62) 96 04/20/18 14:00 54 22 105/35 (58) 97 04/20/18 13:00 70 19 93/65 (74) 98 04/20/18 12:47 108/45 04/20/18 12:46 108/45 04/20/18 12:30 94 20 108/45 (66) 96 04/20/18 12:00 97.9 96 18 113/49 (70) 96 04/20/18 12:00 Nasal Cannula 2.0 04/20/18 12:00 68 04/20/18 11:30 56 0 84/62 (69) 99 04/20/18 11:00 70 17 114/53 (73) 98 Intake and Output 04/20/18 04/21/18 19:00 07:00 Intake Total 150 ml 598.852 ml Output Total 0 ml 0 ml Balance 150 ml 598.852 ml Intake Oral 150 ml 240 ml IV Total 358.852 ml Output Urine Total 0 ml 0 ml # Bowel Movements 3 Laboratory Tests 04/21/18 07:35: White Blood Count 6.3, Red Blood Count 3.68L, Hemoglobin 11.0L, Hematocrit 33.7L , Mean Corpuscular Volume 92, Mean Corpuscular Hemoglobin 30.0, Mean Corpuscular Hemoglobin Concent 32.7, Red Cell Distribution Width 14.7, Platelet Count 238, Mean Platelet Volume 8.1, Neutrophils (%) (Auto) 70.8, Lymphocytes (% ) (Auto) 18.1L, Monocytes (%) (Auto) 7.6, Eosinophils (%) (Auto) 3.1H, Basophils (%) (Auto) 0.4, Sodium Level 133L, Potassium Level 3.6, Chloride Level 94L, Carbon Dioxide Level 25, Anion Gap 15, Blood Urea Nitrogen 47H, Creatinine 11.8H, Estimat Glomerular Filtration Rate 4.0, Glucose Level 110H, Calcium Level 8.1L, Phosphorus Level 5.4H, Total Bilirubin 0.7, Aspartate Amino Transf (AST/SGOT) 14L, Alanine Aminotransferase (ALT/SGPT) 9L, Alkaline Phosphatase 156H, Troponin I 0.259H, Total Protein 7.2, Albumin 2.9L, Globulin 4.3, Albumin/Globulin Ratio 0.7L, Thyroid Stimulating Hormone (TSH) 0.155L, Free Thyroxine 1.37, Triiodothyonine (T3) [Pending], Free Triiodothyronine 1.7L , Triiodothyronine (T3) Uptake [Pending] Height (Feet): 5 Height (Inches): 6.00 Weight (Pounds): 205 General Appearance: no apparent distress Cardiovascular: normal rate Respiratory/Chest: decreased breath sounds Abdomen: soft Objective no change Fredrick Conner MD Apr 21, 2018 10:54
--- NOTE | 2018-04-21 11:17 | NUR ---
CASE MANAGEMENT: REVIEW SI: ESRD ON HD . PNA T 98.0 HR 62 RR 18 BP 88/58 SAT 93% NC/4L H/H 11.0/33.7 NA 133 BUN 47 CR 11.8 TROPONIN I 0.259 IS: DOPAMINE IV Q24HR DOXYCYCLINE IV Q12HR MEROPENEM IV Q24HR MIDODRINE PO Q8HR HEPARIN SQ Q12HR PROTONIX PO BID ICU STATUS DCP: PATIENT IS FROM HOME
[2018-04-21] MEDS: Aspirin Baby 81mg ORAL SCH (11:45)
--- NOTE | 2018-04-21 11:57 | NUR ---
RD ASSESSMENT & RECOMMENDATIONS SEE CARE ACTIVITY FOR COMPLETE ASSESSMENT DAILY ESTIMATED NEEDS: Needs based on ESRD on HD, obese 66.4kg adj 25-30 kcals/kg [id number] total kcals 1.2-1.8 g protein/kg 80-120 g total protein Fluid per MD, on HD NUTRITION DIAGNOSIS: 1) Increased protein needs R/T renal dysfunction as evidenced by pt w/ ESRD on HD 2) Altered nutrition related lab values R/T renal dysfunction, pre-DM?, clinical condition as evidenced by low Na (133), elev BNP (9287), A1C=6.0, low BP, on pressor. CURRENT DIET: LOW POTASSIUM PO DIET RECOMMENDATIONS: RENAL DIET + DOUBLE PROTEIN PORTIONS ADDITIONAL RECOMMENDATIONS: 1) Weights per policy/ HD pt 2) Nephrovite x1 tab daily 3) Nepro 1 tetra diana BID w/ continued poor/variable PO intake 4) Monitor BGs, need for hypoglycemic agent: A1C of 6.0 5) Monitor BG and po intake/ need for dietary restriction.
[2018-04-21] MEDS: Heparin 5000 units/ml inj SUBQ SCH ×3 (12:04→21:41)
--- NOTE | 2018-04-21 12:10 | NUR ---
NURSE NOTES: Patient observed to be AAO x 4. Patient received HD treatment today and tolerated it well. Patient continues to complain of worsening belly pain. The epigastric pain is noted in mid section and described as knawing pain. Patient is being monitored on the cardiac sonographer. VSS. Patient is on 2L NC however she takes off the NC very often. Patient is anuric and uses bedside commode for BMs. Patient has a permacath that is running Dopa back down to 10 mcgs. Patient received HD today and 2.5 L was taken. Safety measures are in place with bed locked in the lowest position, side rails up x 3. Will continue to monitor and follow plan of care.
--- NOTE | 2018-04-21 14:19 | NUR ---
NURSE NOTES: Called Dr Harrell regarding patient's complaints of epigastric pain as well as constipation. Requested GI consult and meds like a stool softener.
[2018-04-21] MEDS ORDERED: Morphine Sulfate 2mg/ml Inj(IV/IM USE ONLY) IVP SCH (15:56)
--- NOTE | 2018-04-21 16:05 | GI Initial Consult Note ---
History of Present Illness General Date patient seen: Apr 21, 2018 Time patient seen: 15:55 Reason for Hospitalization: General Complaint Referring physician: EVELYN DESAI Reason for Consultation: ABDOMINAL PAIN Present Illness HPI 53-year-old female presents ED for evaluation. Patient states that she is feeling weak and "sick". Denies fevers or chills. Denies chest pain or shortness of breath. History of end-stage renal disease. States that she missed her last dialysis session because she didn't feel well. Blood pressure low in triage. Patient normally has low blood pressure but states this is lower than usual. Denies any dizziness. Denies cough. No other aggravating relieving factors. Denies any other associated symptoms GI consulted for severe abdominal pain. Patient was seen in ICU, awake alert and oriented x4 complaining of severe generalized abdominal pain with mild distention, tenderness to touch all quadrants. It is noted that the patient was not currently on renal diet unable to tolerate all her food at this time. It is also noted that the patient has had no bowel movement within the past 4 days and that her abdominal pain began last night. Prior to her episode of constipation, the patient had severe episodes of diarrhea, which the stool was sent noted to be negative for C. difficile and a negative stool culture. Patient is currently on Protonix and twice daily. KUB is currently pending recently been taken, pending read. The patient states that she had an upper endoscopy and colonoscopy approximately 2 years ago noted with colonic polyps. Home Meds Reported Medications Unable to Obtain Medications (UNABLE TO OBTAIN MEDS) 1 Ea Ea 04/12/18 Travoprost (TRAVATAN Z) 5 Ml Drops, 5 ML OP BID, ML 03/29/18 Fluticasone/Salmeterol (ADVAIR HFA 115-21 MCG INHALER) 12 Gm Hfa.aer.ad, 2 PUFFS INH, EA 03/29/18 Codeine/Promethazine Hcl* (PROMETHAZINE-CODEINE SYRUP*) 118 Ml Syrup, 5 ML ORAL Q6H PRN for For Cough, ML 0 Refills 03/29/18 Midodrine* (PROAMATINE*) 10 Mg Tablet, 20 MG ORAL BID, TAB 03/29/18 Apixaban (ELIQUIS) 5 Mg Tablet, 2.5 MG PO BID, TAB 03/29/18 Sevelamer Carbonate (Renvela) 800 Mg Tablet, 1600 MG ORAL THREE TIMES A DAY, TAB 01/21/17 Cinacalcet* (SENSIPAR*) 30 Mg Tablet, 30 MG ORAL 3XW, TAB 01/21/17 Omeprazole (OMEPRAZOLE) 20 Mg Capsule.dr, 20 MG ORAL BID, CAP 01/21/17 Zolpidem Tartrate* (AMBIEN*) 10 Mg Tablet, 10 MG PO HS PRN for INSOMNIA 03/06/12 Med list reviewed/reconciled: Yes Allergies: Coded Allergies: CEFAZOLIN (Verified Allergy, Unknown, 10/02/10) CIPROFLOXACIN (Verified Allergy, Unknown, 10/02/10) GENTAMICIN (Verified Allergy, Unknown, 10/02/10) KETAMINE (Verified Allergy, Unknown, 03/29/18) LEVOFLOXACIN (Verified Allergy, Unknown, 10/02/10) PENICILLINS (Verified Allergy, Unknown, ITCH, 10/02/10) Uncoded Allergies: CONTRAST MEDIA (Adverse Reaction, Mild, MILD ITCHING AFTER CONTRAST MEDIA, 04/30/17) Patient History History Provided By: Patient, Medical Record PMH Narrative Past Medical History: renal disease, dialysis Pertinent Family History: none Social History: Denies: smoking, alcohol use, drug use Now: No Immunizations: UTD Reviewed Nursing Documentation: PMH: Agreed; PSxH: Agreed Nursing Documentation-PMH Past Medical History: No History, Except For Hx Cardiac Problems: Yes - hypotension Hx Pacemaker: No Hx Asthma: No Hx COPD: No Hx Diabetes: No Hx Cancer: No Hx Gastrointestinal Problems: Yes Hx Dialysis: Yes - right leg fistula Hx Neurological Problems: No Hx Cerebrovascular Accident: No Hx Seizures: No Social History: Denies: smoking, alcohol use, drug use, other Review of Systems All Other Systems: negative except mentioned in HPI Physical Exam Vital Signs Date Time Temp Pulse Resp B/P (MAP) Pulse Ox O2 Delivery O2 Flow Rate FiO2 04/17/18 07:00 62 87/37 (54) 98 04/17/18 07:02 Nasal Cannula 4.0 36 04/17/18 08:00 98.8 22 Sp02 EP Interpretation: reviewed, normal Labs Laboratory Tests Test 04/21/18 07:35 White Blood Count 6.3 K/UL (4.8-10.8) Red Blood Count 3.68 M/UL (4.20-5.40) L Hemoglobin 11.0 G/DL (12.0-16.0) L Hematocrit 33.7 % (37.0-47.0) L Mean Corpuscular Volume 92 FL (80-99) Mean Corpuscular Hemoglobin 30.0 PG (27.0-31.0) Mean Corpuscular Hemoglobin Concent 32.7 G/DL (32.0-36.0) Red Cell Distribution Width 14.7 % (11.6-14.8) Platelet Count 238 K/UL (150-450) Mean Platelet Volume 8.1 FL (6.5-10.1) Neutrophils (%) (Auto) 70.8 % (45.0-75.0) Lymphocytes (%) (Auto) 18.1 % (20.0-45.0) L Monocytes (%) (Auto) 7.6 % (1.0-10.0) Eosinophils (%) (Auto) 3.1 % (0.0-3.0) H Basophils (%) (Auto) 0.4 % (0.0-2.0) Sodium Level 133 MMOL/L (136-145) L Potassium Level 3.6 MMOL/L (3.5-5.1) Chloride Level 94 MMOL/L (98-107) L Carbon Dioxide Level 25 MMOL/L (21-32) Anion Gap 15 mmol/L (5-15) Blood Urea Nitrogen 47 mg/dL (7-18) H Creatinine 11.8 MG/DL (0.55-1.30) H Estimat Glomerular Filtration Rate 4.0 mL/min (>60) Glucose Level 110 MG/DL (74-106) H Calcium Level 8.1 MG/DL (8.5-10.1) L Phosphorus Level 5.4 MG/DL (2.5-4.9) H Total Bilirubin 0.7 MG/DL (0.2-1.0) Aspartate Amino Transf (AST/SGOT) 14 U/L (15-37) L Alanine Aminotransferase (ALT/SGPT) 9 U/L (12-78) L Alkaline Phosphatase 156 U/L (46-116) H Troponin I 0.259 ng/mL (0.000-0.056) Total Protein 7.2 G/DL (6.4-8.2) Albumin 2.9 G/DL (3.4-5.0) L Globulin 4.3 g/dL Albumin/Globulin Ratio 0.7 (1.0-2.7) L Thyroid Stimulating Hormone (TSH) 0.155 uiU/mL (0.358-3.740) Free Thyroxine 1.37 NG/DL (0.76-1.46) Triiodothyonine (T3) Pending Free Triiodothyronine 1.7 pg/mL (2.3-4.2) L Triiodothyronine (T3) Uptake Pending General Appearance: well appearing, no apparent distress, alert Head: normocephalic EENT: PERRL/EOMI, normal ENT inspection Neck: supple Respiratory: normal breath sounds, no respiratory distress Cardiovascular: normal rate Gastrointestinal: normal inspection, non tender, soft, normal bowel sounds, non -distended Rectal: deferred Genitourinary: no CVA tenderness Musculoskeletal: normal inspection, back normal Neurologic: normal inspection, alert, oriented x3, responsive Psychiatric: normal inspection, judgement/insight normal, memory normal Skin: normal inspection, normal color, no rash, warm/dry, palpation normal, well hydrated Lymphatic: normal inspection, no adenopathy Current Medications Current Medications Medications (Trade) Dose Ordered Sig/Marcos Route PRN Reason Start Time Stop Time Status Last Admin Dose Admin Acetaminophen (Tylenol) 650 mg Q6H PRN ORAL Mild Pain/Temp > 100.5 04/12/18 17:45 05/12/18 17:44 04/21/18 12:44 Alprazolam (Xanax) 0.5 mg Q6H PRN ORAL For Anxiety 04/21/18 07:30 04/28/18 07:29 Aspirin (ASA) 81 mg DAILY ORAL 04/17/18 09:00 05/17/18 08:59 04/21/18 11:45 Chlorhexidine Gluconate (Nivia-Hex 2%) 1 applic DAILY@2000 TOPIC 04/13/18 20:00 05/13/18 19:59 04/20/18 20:27 Dopamine HCl/ Dextrose 250 ml @ 0 mls/hr Q24H IV 04/18/18 02:00 05/18/18 01:59 04/21/18 05:21 Doxycycline Hyclate 100 mg/ Dextrose 100 ml @ 100 mls/hr Q12HR IV 04/16/18 21:00 04/23/18 20:59 04/21/18 11:45 Guaifenesin (Robitussin) 300 mg Q6H PRN ORAL For Cough 04/14/18 17:00 05/14/18 16:59 04/16/18 02:07 Heparin Sodium (Porcine) (Heparin 5000 units/ml) 5,000 units EVERY 12 HOURS SUBQ 04/12/18 21:00 05/12/18 20:59 04/21/18 12:04 Isosorbide Dinitrate (Isordil) 10 mg TID ORAL 04/16/18 18:00 05/16/18 17:59 04/20/18 12:46 Loperamide HCl (Imodium) 2 mg Q4H PRN ORAL Diarrhea 04/18/18 11:00 05/18/18 10:59 04/18/18 22:23 Meropenem 500 mg/ Sodium Chloride 50 ml @ 100 mls/hr Q24HRS IVPB 04/21/18 14:00 04/26/18 13:59 04/21/18 14:46 Midodrine (Pro-Amatine) 10 mg Q8HR ORAL 04/19/18 14:00 05/19/18 13:59 04/21/18 14:46 Ondansetron HCl (Zofran) 4 mg Q4H PRN IVP Nausea & Vomiting 04/12/18 17:45 05/12/18 17:44 04/21/18 00:28 Pantoprazole (Protonix) 40 mg BID ORAL 04/12/18 18:00 05/12/18 17:59 04/21/18 11:45 Sevelamer Carbonate (Renvela) 1,600 mg THREE TIMES A DAY ORAL 04/19/18 13:00 05/13/18 08:59 04/21/18 11:45 Voriconazole (Vfend) 200 mg EVERY 12 HOURS ORAL 04/18/18 21:00 04/25/18 20:59 04/21/18 11:45 GI: Plan Problems: (1) Anxiety (2) Constipation (3) Anemia of renal disease (4) Epigastric abdominal pain (5) CHF (congestive heart failure) Plan Maintain the patient n.p.o. with IV fluids Follow-up KUB to rule out any constipation versus fecal impaction one-time low-dose of morphine Continue PPI We will titrate bowel regimen Will follow with additional recommendations post imaging study Will consider GI procedures pending workup Discussed with Dr. Diaz. Thank you for this patient referral, we will follow. The patient was seen and examined at bedside and all new and available data was reviewed in the patients chart. I agree with the above findings, impression and plan. (Patient seen earlier today. Signature stamp does not reflect patient encounter time.). - MD Roxie [facility] [place] RACEHORSE TRAINER Apr 21, 2018 16:05
--- NOTE | 2018-04-21 16:15 | NUR ---
NURSE NOTES: Tyree CHECKOUT SUPERVISOR was called regarding STAT consult. Patient was reporting 10/10 patient. Tyree assessed patient bedside. Patient is not placed NPO, KUB study is waiting for results and Morphine 2 mg x 1 for pain was given. Patient is very anxious. Tyree would like to be called with results as soon as they are available. Will continue to monitor.
--- NOTE | 2018-04-21 17:37 | NUR ---
NURSE NOTES: Patient is now with N/V. Patient vomiting green bile only small amount. Patient was given IV Morphine with little comfort to her pain. Awaiting results for patient's KUB to report to the GI Team. Will continue to monitor team.
--- NOTE | 2018-04-21 18:01 | NUR ---
NURSE NOTES: Dr Harrell assessed patient bedside. Patient is complaining of pain however upon exam patient had tenderness while palpating however, did not have pain while pressing while auscultating. New meds were ordered for severe pain. Will continue to monitor and await KUB results.
--- NOTE | 2018-04-21 18:03 | Internal Med Progress Note ---
Subjective Date of Service: Apr 21, 2018 Physician Name Edward Harrell Attending Physician Ash Henley MD Current Medications Medications (Trade) Dose Ordered Sig/Marcos Route PRN Reason Start Time Stop Time Status Last Admin Dose Admin Acetaminophen (Tylenol) 650 mg Q6H PRN ORAL Mild Pain/Temp > 100.5 04/12/18 17:45 05/12/18 17:44 04/21/18 12:44 Alprazolam (Xanax) 0.5 mg Q6H PRN ORAL For Anxiety 04/21/18 07:30 04/28/18 07:29 Aspirin (ASA) 81 mg DAILY ORAL 04/17/18 09:00 05/17/18 08:59 04/21/18 11:45 Chlorhexidine Gluconate (Nivia-Hex 2%) 1 applic DAILY@2000 TOPIC 04/13/18 20:00 05/13/18 19:59 04/20/18 20:27 Dopamine HCl/ Dextrose 250 ml @ 0 mls/hr Q24H IV 04/18/18 02:00 05/18/18 01:59 04/21/18 17:29 Doxycycline Hyclate 100 mg/ Dextrose 100 ml @ 100 mls/hr Q12HR IV 04/16/18 21:00 04/23/18 20:59 04/21/18 11:45 Guaifenesin (Robitussin) 300 mg Q6H PRN ORAL For Cough 04/14/18 17:00 05/14/18 16:59 04/16/18 02:07 Heparin Sodium (Porcine) (Heparin 5000 units/ml) 5,000 units EVERY 12 HOURS SUBQ 04/12/18 21:00 05/12/18 20:59 04/21/18 12:04 Isosorbide Dinitrate (Isordil) 10 mg TID ORAL 04/16/18 18:00 05/16/18 17:59 04/20/18 12:46 Loperamide HCl (Imodium) 2 mg Q4H PRN ORAL Diarrhea 04/18/18 11:00 05/18/18 10:59 04/18/18 22:23 Meropenem 500 mg/ Sodium Chloride 50 ml @ 100 mls/hr Q24HRS IVPB 04/21/18 14:00 04/26/18 13:59 04/21/18 14:46 Midodrine (Pro-Amatine) 10 mg Q8HR ORAL 04/19/18 14:00 05/19/18 13:59 04/21/18 14:46 Ondansetron HCl (Zofran) 4 mg Q4H PRN IVP Nausea & Vomiting 04/12/18 17:45 05/12/18 17:44 04/21/18 17:29 Pantoprazole (Protonix) 40 mg BID ORAL 04/12/18 18:00 05/12/18 17:59 04/21/18 11:45 Sevelamer Carbonate (Renvela) 1,600 mg THREE TIMES A DAY ORAL 04/19/18 13:00 05/13/18 08:59 04/21/18 11:45 Voriconazole (Vfend) 200 mg EVERY 12 HOURS ORAL 04/18/18 21:00 04/25/18 20:59 04/21/18 11:45 Allergies: Coded Allergies: CEFAZOLIN (Verified Allergy, Unknown, 10/02/10) CIPROFLOXACIN (Verified Allergy, Unknown, 10/02/10) GENTAMICIN (Verified Allergy, Unknown, 10/02/10) KETAMINE (Verified Allergy, Unknown, 03/29/18) LEVOFLOXACIN (Verified Allergy, Unknown, 10/02/10) PENICILLINS (Verified Allergy, Unknown, ITCH, 10/02/10) Uncoded Allergies: CONTRAST MEDIA (Adverse Reaction, Mild, MILD ITCHING AFTER CONTRAST MEDIA, 04/30/17) ROS Limited/Unobtainable: No Constitutional: Reports: no symptoms HEENT: Reports: no symptoms Cardiovascular: Reports: no symptoms Respiratory: Reports: no symptoms Gastrointestinal/Abdominal: Reports: abdominal pain, nausea Genitourinary: Reports: no symptoms Neurologic/Psychiatric: Reports: no symptoms Subjective 53 YO F admitted with shortness of breath. Now pneumonia. Cover for Int John- Dr Henley. ICU. Continues on dopamine. C/O abdominal pain and nausea Objective Last Vital Signs Date Time Temp Pulse Resp B/P (MAP) Pulse Ox O2 Delivery O2 Flow Rate FiO2 04/21/18 17:29 68/29 04/21/18 17:00 70 15 94 04/21/18 16:00 98.2 04/21/18 16:00 Nasal Cannula 2.0 04/21/18 11:09 36 Laboratory Tests Test 1/3/19 07:35 White Blood Count 6.3 K/UL (4.8-10.8) Red Blood Count 3.68 M/UL (4.20-5.40) L Hemoglobin 11.0 G/DL (12.0-16.0) L Hematocrit 33.7 % (37.0-47.0) L Mean Corpuscular Volume 92 FL (80-99) Mean Corpuscular Hemoglobin 30.0 PG (27.0-31.0) Mean Corpuscular Hemoglobin Concent 32.7 G/DL (32.0-36.0) Red Cell Distribution Width 14.7 % (11.6-14.8) Platelet Count 238 K/UL (150-450) Mean Platelet Volume 8.1 FL (6.5-10.1) Neutrophils (%) (Auto) 70.8 % (45.0-75.0) Lymphocytes (%) (Auto) 18.1 % (20.0-45.0) L Monocytes (%) (Auto) 7.6 % (1.0-10.0) Eosinophils (%) (Auto) 3.1 % (0.0-3.0) H Basophils (%) (Auto) 0.4 % (0.0-2.0) Sodium Level 133 MMOL/L (136-145) L Potassium Level 3.6 MMOL/L (3.5-5.1) Chloride Level 94 MMOL/L (98-107) L Carbon Dioxide Level 25 MMOL/L (21-32) Anion Gap 15 mmol/L (5-15) Blood Urea Nitrogen 47 mg/dL (7-18) H Creatinine 11.8 MG/DL (0.55-1.30) H Estimat Glomerular Filtration Rate 4.0 mL/min (>60) Glucose Level 110 MG/DL (74-106) H Calcium Level 8.1 MG/DL (8.5-10.1) L Phosphorus Level 5.4 MG/DL (2.5-4.9) H Total Bilirubin 0.7 MG/DL (0.2-1.0) Aspartate Amino Transf (AST/SGOT) 14 U/L (15-37) L Alanine Aminotransferase (ALT/SGPT) 9 U/L (12-78) L Alkaline Phosphatase 156 U/L (46-116) H Troponin I 0.259 ng/mL (0.000-0.056) Total Protein 7.2 G/DL (6.4-8.2) Albumin 2.9 G/DL (3.4-5.0) L Globulin 4.3 g/dL Albumin/Globulin Ratio 0.7 (1.0-2.7) L Thyroid Stimulating Hormone (TSH) 0.155 uiU/mL (0.358-3.740) Free Thyroxine 1.37 NG/DL (0.76-1.46) Triiodothyonine (T3) Pending Free Triiodothyronine 1.7 pg/mL (2.3-4.2) L Triiodothyronine (T3) Uptake Pending Microbiology Date/Time Source Procedure Growth Status 04/19/18 02:00 Stool Stool Culture - Preliminary NORMAL FECAL ESTEPHANIE. Resulted Intake and Output 04/20/18 04/21/18 18:59 06:59 Intake Total 173.697 ml 564.998 ml Output Total 0 ml 0 ml Balance 173.697 ml 564.998 ml Intake Oral 150 ml 240 ml IV Total 23.697 ml 324.998 ml Output Urine Total 0 ml 0 ml # Bowel Movements 3 Objective Objective GENERAL: Awake, responsive, alert HEAD AND NECK: Pupils equal and reactive to light. Extraocular movements intact. Neck was supple. No JVD. LUNGS: Fair air entry. Poor respiratory effort. No wheeze or rhonchi. Decreased air in the bases. HEART: S1 and S2. Distant heart sounds. No murmur. ABDOMEN: Soft, nondistended, and nontender. Morbidly obese. EXTREMITIES: No cyanosis, clubbing, or edema. Right femoral area PermCath as well as left upper extremity AV fistula, functional. NEUROLOGIC: Cranial nerves II through XII are grossly intact. The patient is moving all the extremities spontaneously. Gait was not assessed due to the patient's status. PSYCHIATRIC: Mood and affect are intact. Assessment/Plan Assessment/Plan Assessment/Plan Assessment/Plan 1. Sepsis, most likely secondary to left upper lobe and, to a lesser extent, medial right lower lobe most likely representing multifocal pneumonia. 2. Hypotension, possible septic shock. 3. Pancytopenia with severe thrombocytopenia resolving. 4. End-stage renal disease, on hemodialysis. 5. Altered mental status, most likely toxic metabolic encephalopathy as a result of infection as well as uremia. 6. Anemia of chronic kidney disease. 7. Morbid obesity. 8. Bradycardia. 9. Diarrhea 10. Abdominal pain. PLAN: In ICU. follow up laboratory and cultures. Dr. Fredrick Conner from Nephrology consult; next hemodialysis 04/20/18. Dr. Mcbride from ID consult. Discussed with the family member, brother at the bedside. Abx: Vancomycin, Meropenem, Azithromycin Code status is Full Code. DVT prophylaxis: heparin subcutaneous. continue Dopamine Drip CT of chest noted. Cortisol level Pending. C. Diff neg. Send stool for repeat Continue dopamine GI consult; await Edward Barr MD Apr 21, 2018 18:03
--- NOTE | 2018-04-21 18:49 | NUR ---
NURSE NOTES: Reviewed the results with ANABEL Clements. New orders were given for patient. Waiting for Pharmacy to verify. Patient states pain is improved but still feels pain not as bad. Will continue to monitor.
[2018-04-21] MEDS ORDERED: GI Cocktail 50ml ORAL SCH (19:30)
--- NOTE | 2018-04-21 20:03 | NUR ---
HAND-OFF: Report given to WILLI Rivas. VSS and patient is not in any acute distress. Patient is in less reportable pain and resting more comfortable.
[2018-04-21] MEDS: Bisacodyl EC 5mg tab ORAL SCH (20:04)
[2018-04-21] MEDS: Dyna-Hex 2% Top Sol 2oz TOPIC SCH (20:04)
--- NOTE | 2018-04-21 20:04 | NUR ---
NURSE NOTES: Endorsement received from WILLI Cm. Patient opens eyes spontaneously, oriented x4, follows commands. On 4 LPM oxygen per nasal cannula. On NPO. With permacath at right femoral. Ongoing Dopamine single conc 14mcg/kg/min. Head of bed elevated. Call light within reach. Bed locked and in low position, bed alarm on. Reminded patient to use call light for assistance.
[2018-04-21] MEDS: Miralax 17gm pkt ORAL SCH (21:34)
--- NOTE | 2018-04-21 22:00 | NUR ---
NURSE NOTES: Dopamine titrated accordingly, currently on 10mcg/kg/min.
--- NOTE | 2018-04-21 23:00 | NUR ---
NURSE NOTES: Patient with an episode of nausea and vomiting, vomited about 50 ml slightly clear green liquid. PRN Zofran IV given.
[2018-04-21] MEDS: Morphine Sulfate 4mg/ml Inj (IV USE ONLY) IVP PRN (23:32)
[2018-04-22] VITALS (47 sets, daily range): BP systolic 61–142; BP diastolic 20–99
--- NOTE | 2018-04-22 01:00 | NUR ---
NURSE NOTES: Patient asleep at this time. Dopamine at 12mcg/kg/min
--- NOTE | 2018-04-22 03:00 | NUR ---
NURSE NOTES: Patient asleep. Appears calm and comfortable.
--- NOTE | 2018-04-22 05:00 | NUR ---
NURSE NOTES: Patient refused bed bath at this time, prefers to sleep some more.
[2018-04-22] MEDS: Midodrine 10mg tab ORAL SCH ×3 (05:33→21:43)
[2018-04-22] MEDS: DOPamine 400mg/250ml 250 ML IV SCH ×3 (05:51→18:03)
[2018-04-22 06:39] LABS: BASOPHILS % (AUTO) 0.2 % (0.0-2.0); HEMATOCRIT 32.9 % (37.0-47.0); LYMPHOCYTES % (AUTO) 15.1 % (20.0-45.0); MEAN CORPUSCULAR VOLUME 92 FL (80-99); MONOCYTES % (AUTO) 7.4 % (1.0-10.0); NEUTROPHILS % (AUTO) 76.3 % (45.0-75.0); PLATELET COUNT 214 K/UL (150-450); RED BLOOD COUNT 3.56 M/UL (4.20-5.40); RED CELL DISTRIBUTION WIDTH 14.4 % (11.6-14.8); WHITE BLOOD COUNT 6.2 K/UL (4.8-10.8)
--- NOTE | 2018-04-22 07:15 | NUR ---
HAND-OFF: Report given to WILLI Conway per SBAR.
[2018-04-22 07:20] LABS: ANION GAP 12 mmol/L (5-15); BLOOD UREA NITROGEN 30 mg/dL (7-18); CALCIUM 8.9 MG/DL (8.5-10.1); CARBON DIOXIDE 29 MMOL/L (21-32); CHLORIDE 94 MMOL/L (98-107); CREATININE 8.9 MG/DL (0.55-1.30); POTASSIUM 3.6 MMOL/L (3.5-5.1); SODIUM 135 MMOL/L (136-145)
[2018-04-22] MEDS: Bisacodyl EC 5mg tab ORAL SCH ×2 (08:15→17:57)
[2018-04-22] MEDS: Aspirin Baby 81mg ORAL SCH (08:15)
[2018-04-22] MEDS: Heparin 5000 units/ml inj SUBQ SCH ×2 (08:38→21:44)
[2018-04-22] MEDS: Morphine Sulfate 4mg/ml Inj (IV USE ONLY) IVP PRN ×2 (09:35→18:47)
--- NOTE | 2018-04-22 09:35 | NUR ---
NURSE NOTES: PT C/O OF ABDOMINAL PAIN, 6/10 ACHING, DISPLAYING FACIAL GRIMACING, NO C/O V/N. MORPHINE 2MG 1VP ADMINISTERED PER PROTOCOL. WILL REASSESS PT.
--- NOTE | 2018-04-22 09:55 | Pulmonolgy Critical Care Note ---
Critical Care - Asmt/Plan Problems: (1) Septic shock (2) Pneumonia (3) Hypotension (4) ESRD (end stage renal disease) on dialysis (5) CHF (congestive heart failure) (6) Hypoparathyroidism Respiratory: monitor respiratory rate, adjust FIO2, CXR Cardiac: continue pressors, continue to monitor HR/BP Renal: check electrolytes Infectious Disease: check cultures Gastrointestinal: continue feedings/current rate Endocrine: monitor blood sugar Hematologic: monitor H/H, transfuse if hgb<8.5 Neurologic: PRN Ativan, keep patient comfortable Affect: PRN ativan Prophylaxis: Heparin Notes Reviewed: clin asst, cardio, renal Discussed with: nurses, consultants, case monitorrailway station manager - Objective Last 24 Hour Vital Signs Date Time Temp Pulse Resp B/P (MAP) Pulse Ox O2 Delivery O2 Flow Rate FiO2 04/22/18 07:29 97 Nasal Cannula 4.0 36 04/22/18 07:29 Nasal Cannula 4.0 36 04/22/18 07:00 70 20 100/34 (56) 98 04/22/18 07:00 100/34 04/22/18 06:30 70 20 102/46 (64) 97 04/22/18 06:00 70 20 107/37 (60) 98 04/22/18 06:00 107/37 04/22/18 05:51 85/34 04/22/18 05:30 81 21 109/36 (60) 97 04/22/18 05:00 132/45 04/22/18 05:00 97 21 132/45 (74) 92 04/22/18 04:45 97 20 83/38 (53) 92 04/22/18 04:30 85 21 89/53 (65) 92 04/22/18 04:00 Nasal Cannula 2.0 04/22/18 04:00 77 04/22/18 04:00 98.0 72 21 106/54 (71) 92 04/22/18 04:00 106/54 04/22/18 03:30 74 21 84/29 (47) 92 04/22/18 03:00 106/20 04/22/18 03:00 66 22 106/20 (48) 92 04/22/18 02:45 65 21 101/53 (69) 92 04/22/18 02:30 65 21 92/28 (49) 93 04/22/18 02:15 67 20 85/60 (68) 96 04/22/18 02:00 69 20 75/60 (65) 96 04/22/18 02:00 75/60 04/22/18 01:45 67 16 102/45 (64) 96 04/22/18 01:30 72 16 83/56 (65) 96 04/22/18 01:00 72 16 95/39 (57) 96 04/22/18 01:00 95/39 04/22/18 00:30 68 18 113/42 (65) 96 04/22/18 00:18 98.2 04/22/18 00:00 111/46 04/22/18 00:00 77 04/22/18 00:00 Nasal Cannula 2.0 04/22/18 00:00 98.1 66 20 111/46 (67) 97 04/21/18 23:30 73 18 103/39 (60) 96 04/21/18 23:00 68 20 138/53 (81) 96 04/21/18 23:00 138/53 04/21/18 22:58 127/47 04/21/18 22:30 73 20 106/42 (63) 97 04/21/18 22:00 72 19 102/44 (63) 98 04/21/18 22:00 102/44 04/21/18 21:30 76 19 114/47 (69) 97 04/21/18 21:00 74 21 111/46 (67) 97 04/21/18 21:00 111/46 04/21/18 20:45 71 22 116/44 (68) 97 04/21/18 20:30 70 21 98/72 (81) 98 04/21/18 20:25 98 Nasal Cannula 4.0 36 04/21/18 20:25 Nasal Cannula 4.0 36 04/21/18 20:15 77 20 108/40 (62) 97 04/21/18 20:00 98.7 112 20 130/58 (82) 97 04/21/18 20:00 130/58 04/21/18 20:00 70 04/21/18 20:00 Nasal Cannula 2.0 04/21/18 19:45 74 20 128/58 (81) 99 04/21/18 19:30 70 20 119/47 (71) 99 04/21/18 19:15 65 20 123/54 (77) 100 04/21/18 19:00 99/63 04/21/18 19:00 67 20 99/63 (75) 98 04/21/18 18:00 70 16 119/62 (81) 94 04/21/18 17:29 68/29 04/21/18 17:00 70 15 119/49 (72) 94 04/21/18 16:00 98.2 86 15 108/51 (70) 99 04/21/18 16:00 67 04/21/18 16:00 Nasal Cannula 2.0 04/21/18 15:00 86 18 97/40 (59) 99 04/21/18 14:00 73 18 85/51 (62) 99 04/21/18 13:00 71 18 92/36 (54) 99 04/21/18 12:00 96 16 102/49 (66) 99 04/21/18 12:00 Nasal Cannula 2.0 04/21/18 12:00 105 04/21/18 11:09 Nasal Cannula 4.0 36 04/21/18 11:09 95 Nasal Cannula 4.0 36 04/21/18 11:00 82 16 128/55 (79) 99 04/21/18 10:00 85 16 104/53 (70) 99 Status: sedated Condition: critical HEENT: atraumatic Neck: full ROM Lungs: chest wall tender Heart: HR/BP stable Abdomen: soft, feeding tube Micro: Microbiology Date/Time Source Procedure Growth Status 04/21/18 04:00 Sputum Expectorated Gram Stain - Final Resulted 04/21/18 04:00 Sputum Expectorated Sputum Culture - Preliminary NORMAL UPPER RESPIRATORY ESTEPHANIE AT 24 ... Resulted Critical Care - Subjective ROS Limited/Unobtainable: Yes Condition: critical EKG Rhythm: Sinus Rhythm FI02: 36 Sputum Amount: None I&O: Intake and Output 04/21/18 04/22/18 19:00 07:00 Intake Total 748.426 ml 760.411 ml Output Total 2500 ml 0 ml Balance -1751.574 ml 760.411 ml Intake Oral 200 ml IV Total 748.426 ml 560.411 ml Output Urine Total 0 ml 0 ml Hemodialysis UF 2500 ml CXR: no change Labs: Laboratory Tests Test 1/4/19 05:28 White Blood Count 6.2 K/UL (4.8-10.8) Red Blood Count 3.56 M/UL (4.20-5.40) L Hemoglobin 11.0 G/DL (12.0-16.0) L Hematocrit 32.9 % (37.0-47.0) L Mean Corpuscular Volume 92 FL (80-99) Mean Corpuscular Hemoglobin 30.8 PG (27.0-31.0) Mean Corpuscular Hemoglobin Concent 33.4 G/DL (32.0-36.0) Red Cell Distribution Width 14.4 % (11.6-14.8) Platelet Count 214 K/UL (150-450) Mean Platelet Volume 8.2 FL (6.5-10.1) Neutrophils (%) (Auto) 76.3 % (45.0-75.0) H Lymphocytes (%) (Auto) 15.1 % (20.0-45.0) L Monocytes (%) (Auto) 7.4 % (1.0-10.0) Eosinophils (%) (Auto) 1.0 % (0.0-3.0) Basophils (%) (Auto) 0.2 % (0.0-2.0) Sodium Level 135 MMOL/L (136-145) L Potassium Level 3.6 MMOL/L (3.5-5.1) Chloride Level 94 MMOL/L (98-107) L Carbon Dioxide Level 29 MMOL/L (21-32) Anion Gap 12 mmol/L (5-15) Blood Urea Nitrogen 30 mg/dL (7-18) H Creatinine 8.9 MG/DL (0.55-1.30) H Estimat Glomerular Filtration Rate 5.6 mL/min (>60) Glucose Level 84 MG/DL (74-106) Calcium Level 8.9 MG/DL (8.5-10.1) Cuate Schmidt MD Apr 22, 2018 09:55
--- NOTE | 2018-04-22 09:55 | NUR ---
NURSE NOTES: MD DENNEY HERE TO SEE PT.
--- NOTE | 2018-04-22 10:20 | NUR ---
NURSE NOTES: MD MEREDITH HERE TO SEE PT. WAS ASKED ABOUT H.D ORDER, PT WILL BE DIALYZED ON 04/23/2018, REPORTED BUN 30, CRE 8.9, DOPAMINE AT 14MCG/HR, BP 130/49 AND PT REQUESTING H.D GINGER. WILL UPDATE THE PT.
--- NOTE | 2018-04-22 10:42 | Nephrology Progress Note ---
Assessment/Plan Problem List: (1) ESRD (end stage renal disease) on dialysis (2) Hypotension (3) Anemia of renal disease (4) Metabolic encephalopathy (5) Pneumonia Assessment ESRD on HD- HypoThyroidism- Periodic Hypotension- encephalopathic , metabolic- Plan dialysis 2/3 next 25 add asa and isordil for rising Troponin add prn imodium for loose bm per orders midodrine per consultants antibiotics for pneumonia Cardiac advise for low HR Subjective ROS Limited/Unobtainable: No Constitutional: Reports: malaise Objective Objective Last 24 Hour Vital Signs Date Time Temp Pulse Resp B/P (MAP) Pulse Ox O2 Delivery O2 Flow Rate FiO2 04/22/18 07:29 97 Nasal Cannula 4.0 36 04/22/18 07:29 Nasal Cannula 4.0 36 04/22/18 07:00 70 20 100/34 (56) 98 04/22/18 07:00 100/34 04/22/18 06:30 70 20 102/46 (64) 97 04/22/18 06:00 70 20 107/37 (60) 98 04/22/18 06:00 107/37 04/22/18 05:51 85/34 04/22/18 05:30 81 21 109/36 (60) 97 04/22/18 05:00 132/45 04/22/18 05:00 97 21 132/45 (74) 92 04/22/18 04:45 97 20 83/38 (53) 92 04/22/18 04:30 85 21 89/53 (65) 92 04/22/18 04:00 Nasal Cannula 2.0 04/22/18 04:00 77 04/22/18 04:00 98.0 72 21 106/54 (71) 92 04/22/18 04:00 106/54 04/22/18 03:30 74 21 84/29 (47) 92 04/22/18 03:00 106/20 04/22/18 03:00 66 22 106/20 (48) 92 04/22/18 02:45 65 21 101/53 (69) 92 04/22/18 02:30 65 21 92/28 (49) 93 04/22/18 02:15 67 20 85/60 (68) 96 04/22/18 02:00 69 20 75/60 (65) 96 04/22/18 02:00 75/60 04/22/18 01:45 67 16 102/45 (64) 96 04/22/18 01:30 72 16 83/56 (65) 96 04/22/18 01:00 72 16 95/39 (57) 96 04/22/18 01:00 95/39 04/22/18 00:30 68 18 113/42 (65) 96 04/22/18 00:18 98.2 04/22/18 00:00 111/46 04/22/18 00:00 77 04/22/18 00:00 Nasal Cannula 2.0 04/22/18 00:00 98.1 66 20 111/46 (67) 97 04/21/18 23:30 73 18 103/39 (60) 96 04/21/18 23:00 68 20 138/53 (81) 96 04/21/18 23:00 138/53 04/21/18 22:58 127/47 04/21/18 22:30 73 20 106/42 (63) 97 04/21/18 22:00 72 19 102/44 (63) 98 04/21/18 22:00 102/44 04/21/18 21:30 76 19 114/47 (69) 97 04/21/18 21:00 74 21 111/46 (67) 97 04/21/18 21:00 111/46 04/21/18 20:45 71 22 116/44 (68) 97 04/21/18 20:30 70 21 98/72 (81) 98 04/21/18 20:25 98 Nasal Cannula 4.0 36 04/21/18 20:25 Nasal Cannula 4.0 36 04/21/18 20:15 77 20 108/40 (62) 97 04/21/18 20:00 98.7 112 20 130/58 (82) 97 04/21/18 20:00 130/58 04/21/18 20:00 70 04/21/18 20:00 Nasal Cannula 2.0 04/21/18 19:45 74 20 128/58 (81) 99 04/21/18 19:30 70 20 119/47 (71) 99 04/21/18 19:15 65 20 123/54 (77) 100 04/21/18 19:00 99/63 04/21/18 19:00 67 20 99/63 (75) 98 04/21/18 18:00 70 16 119/62 (81) 94 04/21/18 17:29 68/29 04/21/18 17:00 70 15 119/49 (72) 94 04/21/18 16:00 98.2 86 15 108/51 (70) 99 04/21/18 16:00 67 04/21/18 16:00 Nasal Cannula 2.0 04/21/18 15:00 86 18 97/40 (59) 99 04/21/18 14:00 73 18 85/51 (62) 99 04/21/18 13:00 71 18 92/36 (54) 99 04/21/18 12:00 96 16 102/49 (66) 99 04/21/18 12:00 Nasal Cannula 2.0 04/21/18 12:00 105 04/21/18 11:09 Nasal Cannula 4.0 36 04/21/18 11:09 95 Nasal Cannula 4.0 36 04/21/18 11:00 82 16 128/55 (79) 99 Intake and Output 04/21/18 04/22/18 19:00 07:00 Intake Total 748.426 ml 760.411 ml Output Total 2500 ml 0 ml Balance -1751.574 ml 760.411 ml Intake Oral 200 ml IV Total 748.426 ml 560.411 ml Output Urine Total 0 ml 0 ml Hemodialysis UF 2500 ml Laboratory Tests 04/22/18 05:28: White Blood Count 6.2, Red Blood Count 3.56L, Hemoglobin 11.0L, Hematocrit 32.9L , Mean Corpuscular Volume 92, Mean Corpuscular Hemoglobin 30.8, Mean Corpuscular Hemoglobin Concent 33.4, Red Cell Distribution Width 14.4, Platelet Count 214, Mean Platelet Volume 8.2, Neutrophils (%) (Auto) 76.3H, Lymphocytes ( %) (Auto) 15.1L, Monocytes (%) (Auto) 7.4, Eosinophils (%) (Auto) 1.0, Basophils (%) (Auto) 0.2, Sodium Level 135L, Potassium Level 3.6, Chloride Level 94L, Carbon Dioxide Level 29, Anion Gap 12, Blood Urea Nitrogen 30H, Creatinine 8.9H, Estimat Glomerular Filtration Rate 5.6, Glucose Level 84, Calcium Level 8.9 Height (Feet): 5 Height (Inches): 6.00 Weight (Pounds): 212 Cardiovascular: normal rate Respiratory/Chest: decreased breath sounds Abdomen: soft Objective no change Fredrick Conner MD Apr 22, 2018 10:42
--- NOTE | 2018-04-22 11:03 | NUR ---
NURSE NOTES: MD MORRELL HERE TO SEE PT. REPORTED PT C/O PAIN 09/26 ABDOMEN, MORPHINE 2MG GIVEN. NO BM AT THIS TIME. NO NEW ORDERS GIVEN.
--- NOTE | 2018-04-22 12:39 | GI Progress Note ---
Assessment/Plan Problems: (1) Epigastric abdominal pain ICD Codes: R10.13 - Epigastric pain SNOMED: 37817224 (2) Anxiety ICD Codes: F41.9 - Anxiety disorder, unspecified SNOMED: 75326929 (3) Constipation ICD Codes: K59.00 - Constipation, unspecified SNOMED: 27012202 (4) Anemia of renal disease ICD Codes: D63.1 - Anemia in chronic kidney disease SNOMED: 864440476, [id number] Status: stable Status Narrative Discussed with Dr. Diaz Assessment/Plan Unknown history of abdominal surgery KUB noted mainly unremarkable, pending final report cdiff, stool studies both negative Clear liquid diet trial, advance to renal diet as tolerated pain mgmt Continue PPI We will titrate bowel regimen >> add miralax prn transfusions zofran prn fu labs The patient was seen and examined at bedside and all new and available data was reviewed in the patients chart. I agree with the above findings, impression and plan. (Patient seen earlier today. Signature stamp does not reflect patient encounter time.). - Ryley Diaz MD Subjective Subjective Patient states that abdominal pain has improved Still has complaint of constipation Objective Last 24 Hour Vital Signs Date Time Temp Pulse Resp B/P (MAP) Pulse Ox O2 Delivery O2 Flow Rate FiO2 04/22/18 11:39 77/49 04/22/18 11:00 61 17 122/51 (74) 99 04/22/18 11:00 122/51 04/22/18 10:30 59 17 132/49 (76) 100 04/22/18 10:00 63 16 132/63 (86) 98 04/22/18 10:00 121/54 04/22/18 09:30 70 11 123/60 (81) 96 04/22/18 09:00 89 21 104/32 (56) 96 04/22/18 09:00 104/32 04/22/18 08:30 74 18 108/55 (72) 99 04/22/18 08:29 108/55 04/22/18 08:00 97.1 74 19 118/99 (105) 100 04/22/18 08:00 Nasal Cannula 4.0 04/22/18 08:00 134/58 04/22/18 08:00 64 04/22/18 07:29 97 Nasal Cannula 4.0 36 04/22/18 07:29 Nasal Cannula 4.0 36 04/22/18 07:00 70 20 100/34 (56) 98 04/22/18 07:00 100/34 04/22/18 06:30 70 20 102/46 (64) 97 04/22/18 06:00 70 20 107/37 (60) 98 04/22/18 06:00 107/37 04/22/18 05:51 85/34 04/22/18 05:30 81 21 109/36 (60) 97 04/22/18 05:00 132/45 04/22/18 05:00 97 21 132/45 (74) 92 04/22/18 04:45 97 20 83/38 (53) 92 04/22/18 04:30 85 21 89/53 (65) 92 04/22/18 04:00 Nasal Cannula 2.0 04/22/18 04:00 77 04/22/18 04:00 98.0 72 21 106/54 (71) 92 04/22/18 04:00 106/54 04/22/18 03:30 74 21 84/29 (47) 92 04/22/18 03:00 106/20 04/22/18 03:00 66 22 106/20 (48) 92 04/22/18 02:45 65 21 101/53 (69) 92 04/22/18 02:30 65 21 92/28 (49) 93 04/22/18 02:15 67 20 85/60 (68) 96 04/22/18 02:00 69 20 75/60 (65) 96 04/22/18 02:00 75/60 04/22/18 01:45 67 16 102/45 (64) 96 04/22/18 01:30 72 16 83/56 (65) 96 04/22/18 01:00 72 16 95/39 (57) 96 04/22/18 01:00 95/39 04/22/18 00:30 68 18 113/42 (65) 96 04/22/18 00:18 98.2 04/22/18 00:00 111/46 04/22/18 00:00 77 04/22/18 00:00 Nasal Cannula 2.0 04/22/18 00:00 98.1 66 20 111/46 (67) 97 04/21/18 23:30 73 18 103/39 (60) 96 04/21/18 23:00 68 20 138/53 (81) 96 04/21/18 23:00 138/53 04/21/18 22:58 127/47 04/21/18 22:30 73 20 106/42 (63) 97 04/21/18 22:00 72 19 102/44 (63) 98 04/21/18 22:00 102/44 04/21/18 21:30 76 19 114/47 (69) 97 04/21/18 21:00 74 21 111/46 (67) 97 04/21/18 21:00 111/46 04/21/18 20:45 71 22 116/44 (68) 97 04/21/18 20:30 70 21 98/72 (81) 98 04/21/18 20:25 98 Nasal Cannula 4.0 36 04/21/18 20:25 Nasal Cannula 4.0 36 04/21/18 20:15 77 20 108/40 (62) 97 04/21/18 20:00 98.7 112 20 130/58 (82) 97 04/21/18 20:00 130/58 04/21/18 20:00 70 04/21/18 20:00 Nasal Cannula 2.0 04/21/18 19:45 74 20 128/58 (81) 99 04/21/18 19:30 70 20 119/47 (71) 99 04/21/18 19:15 65 20 123/54 (77) 100 04/21/18 19:00 99/63 04/21/18 19:00 67 20 99/63 (75) 98 04/21/18 18:00 70 16 119/62 (81) 94 04/21/18 17:29 68/29 04/21/18 17:00 70 15 119/49 (72) 94 04/21/18 16:00 98.2 86 15 108/51 (70) 99 04/21/18 16:00 67 04/21/18 16:00 Nasal Cannula 2.0 04/21/18 15:00 86 18 97/40 (59) 99 04/21/18 14:00 73 18 85/51 (62) 99 04/21/18 13:00 71 18 92/36 (54) 99 Intake and Output 04/21/18 04/22/18 19:00 07:00 Intake Total 748.426 ml 760.411 ml Output Total 2500 ml 0 ml Balance -1751.574 ml 760.411 ml Intake Oral 200 ml IV Total 748.426 ml 560.411 ml Output Urine Total 0 ml 0 ml Hemodialysis UF 2500 ml Laboratory Tests Test 04/22/18 05:28 White Blood Count 6.2 K/UL (4.8-10.8) Red Blood Count 3.56 M/UL (4.20-5.40) L Hemoglobin 11.0 G/DL (12.0-16.0) L Hematocrit 32.9 % (37.0-47.0) L Mean Corpuscular Volume 92 FL (80-99) Mean Corpuscular Hemoglobin 30.8 PG (27.0-31.0) Mean Corpuscular Hemoglobin Concent 33.4 G/DL (32.0-36.0) Red Cell Distribution Width 14.4 % (11.6-14.8) Platelet Count 214 K/UL (150-450) Mean Platelet Volume 8.2 FL (6.5-10.1) Neutrophils (%) (Auto) 76.3 % (45.0-75.0) H Lymphocytes (%) (Auto) 15.1 % (20.0-45.0) L Monocytes (%) (Auto) 7.4 % (1.0-10.0) Eosinophils (%) (Auto) 1.0 % (0.0-3.0) Basophils (%) (Auto) 0.2 % (0.0-2.0) Sodium Level 135 MMOL/L (136-145) L Potassium Level 3.6 MMOL/L (3.5-5.1) Chloride Level 94 MMOL/L (98-107) L Carbon Dioxide Level 29 MMOL/L (21-32) Anion Gap 12 mmol/L (5-15) Blood Urea Nitrogen 30 mg/dL (7-18) H Creatinine 8.9 MG/DL (0.55-1.30) H Estimat Glomerular Filtration Rate 5.6 mL/min (>60) Glucose Level 84 MG/DL (74-106) Calcium Level 8.9 MG/DL (8.5-10.1) Height (Feet): 5 Height (Inches): 6.00 Weight (Pounds): 212 General Appearance: WD/WN, no apparent distress, alert Cardiovascular: normal rate Respiratory/Chest: normal breath sounds, no respiratory distress Abdominal Exam: normal bowel sounds, non tender, soft Extremities: normal range of motion, non-tender Wm Faustin NP Apr 22, 2018 12:39
--- NOTE | 2018-04-22 13:00 | NUR ---
NURSE NOTES: Patient asleep at this time. Dopamine at 12mcg/kg/min
--- NOTE | 2018-04-22 13:17 | Cardiac Electrophysiology PN ---
Assessment/Plan Assessment/Plan 1. Troponin leak, due to renal failure. Levels low and flat. The patient does not have any chest pain. Likely due to renal failure demand ischemia. DC further troponin orders 2. Septic shock. On Dopamine drip, midodrine 10 mg tid and iv Abx per Dr. Mcbride. Try to taper down to 8 today 3. Bradycardia. Still on dopamine 14 mcg. Taper down to 8 today 4. Anterior T-wave inversion. No chest pain. EF 60% 5. End-stage renal disease, on hemodialysis, per Dr. Conner. 6. Diarrhea C Diff was negative 7. Sputum culture positive for Mold. FU ID DW RN Subjective Subjective On Dopamine drip 14 mcg. Had HD yesterday. No other events.Alert in NAD Objective Last 24 Hour Vital Signs Date Time Temp Pulse Resp B/P (MAP) Pulse Ox O2 Delivery O2 Flow Rate FiO2 04/22/18 12:30 64 19 137/44 (75) 95 04/22/18 12:00 97.8 59 19 142/46 (78) 90 04/22/18 12:00 Nasal Cannula 4.0 04/22/18 11:39 77/49 04/22/18 11:00 61 17 122/51 (74) 99 04/22/18 11:00 122/51 04/22/18 10:30 59 17 132/49 (76) 100 04/22/18 10:00 63 16 132/63 (86) 98 04/22/18 10:00 121/54 04/22/18 09:30 70 11 123/60 (81) 96 04/22/18 09:00 89 21 104/32 (56) 96 04/22/18 09:00 104/32 04/22/18 08:30 74 18 108/55 (72) 99 04/22/18 08:29 108/55 04/22/18 08:00 97.1 74 19 118/99 (105) 100 04/22/18 08:00 Nasal Cannula 4.0 04/22/18 08:00 134/58 04/22/18 08:00 64 04/22/18 07:29 97 Nasal Cannula 4.0 36 04/22/18 07:29 Nasal Cannula 4.0 36 04/22/18 07:00 70 20 100/34 (56) 98 04/22/18 07:00 100/34 04/22/18 06:30 70 20 102/46 (64) 97 04/22/18 06:00 70 20 107/37 (60) 98 04/22/18 06:00 107/37 04/22/18 05:51 85/34 04/22/18 05:30 81 21 109/36 (60) 97 04/22/18 05:00 132/45 04/22/18 05:00 97 21 132/45 (74) 92 04/22/18 04:45 97 20 83/38 (53) 92 04/22/18 04:30 85 21 89/53 (65) 92 04/22/18 04:00 Nasal Cannula 2.0 04/22/18 04:00 77 04/22/18 04:00 98.0 72 21 106/54 (71) 92 04/22/18 04:00 106/54 04/22/18 03:30 74 21 84/29 (47) 92 04/22/18 03:00 106/20 04/22/18 03:00 66 22 106/20 (48) 92 04/22/18 02:45 65 21 101/53 (69) 92 04/22/18 02:30 65 21 92/28 (49) 93 04/22/18 02:15 67 20 85/60 (68) 96 04/22/18 02:00 69 20 75/60 (65) 96 04/22/18 02:00 75/60 04/22/18 01:45 67 16 102/45 (64) 96 04/22/18 01:30 72 16 83/56 (65) 96 04/22/18 01:00 72 16 95/39 (57) 96 04/22/18 01:00 95/39 04/22/18 00:30 68 18 113/42 (65) 96 04/22/18 00:18 98.2 04/22/18 00:00 111/46 04/22/18 00:00 77 04/22/18 00:00 Nasal Cannula 2.0 04/22/18 00:00 98.1 66 20 111/46 (67) 97 04/21/18 23:30 73 18 103/39 (60) 96 04/21/18 23:00 68 20 138/53 (81) 96 04/21/18 23:00 138/53 04/21/18 22:58 127/47 04/21/18 22:30 73 20 106/42 (63) 97 04/21/18 22:00 72 19 102/44 (63) 98 04/21/18 22:00 102/44 04/21/18 21:30 76 19 114/47 (69) 97 04/21/18 21:00 74 21 111/46 (67) 97 04/21/18 21:00 111/46 04/21/18 20:45 71 22 116/44 (68) 97 04/21/18 20:30 70 21 98/72 (81) 98 04/21/18 20:25 98 Nasal Cannula 4.0 36 04/21/18 20:25 Nasal Cannula 4.0 36 04/21/18 20:15 77 20 108/40 (62) 97 04/21/18 20:00 98.7 112 20 130/58 (82) 97 04/21/18 20:00 130/58 04/21/18 20:00 70 04/21/18 20:00 Nasal Cannula 2.0 04/21/18 19:45 74 20 128/58 (81) 99 04/21/18 19:30 70 20 119/47 (71) 99 04/21/18 19:15 65 20 123/54 (77) 100 04/21/18 19:00 99/63 04/21/18 19:00 67 20 99/63 (75) 98 04/21/18 18:00 70 16 119/62 (81) 94 04/21/18 17:29 68/29 04/21/18 17:00 70 15 119/49 (72) 94 04/21/18 16:00 98.2 86 15 108/51 (70) 99 04/21/18 16:00 67 04/21/18 16:00 Nasal Cannula 2.0 04/21/18 15:00 86 18 97/40 (59) 99 04/21/18 14:00 73 18 85/51 (62) 99 Intake and Output 04/21/18 04/22/18 19:00 07:00 Intake Total 748.426 ml 760.411 ml Output Total 2500 ml 0 ml Balance -1751.574 ml 760.411 ml Intake Oral 200 ml IV Total 748.426 ml 560.411 ml Output Urine Total 0 ml 0 ml Hemodialysis UF 2500 ml Laboratory Tests Test 04/22/18 05:28 White Blood Count 6.2 K/UL (4.8-10.8) Red Blood Count 3.56 M/UL (4.20-5.40) L Hemoglobin 11.0 G/DL (12.0-16.0) L Hematocrit 32.9 % (37.0-47.0) L Mean Corpuscular Volume 92 FL (80-99) Mean Corpuscular Hemoglobin 30.8 PG (27.0-31.0) Mean Corpuscular Hemoglobin Concent 33.4 G/DL (32.0-36.0) Red Cell Distribution Width 14.4 % (11.6-14.8) Platelet Count 214 K/UL (150-450) Mean Platelet Volume 8.2 FL (6.5-10.1) Neutrophils (%) (Auto) 76.3 % (45.0-75.0) H Lymphocytes (%) (Auto) 15.1 % (20.0-45.0) L Monocytes (%) (Auto) 7.4 % (1.0-10.0) Eosinophils (%) (Auto) 1.0 % (0.0-3.0) Basophils (%) (Auto) 0.2 % (0.0-2.0) Sodium Level 135 MMOL/L (136-145) L Potassium Level 3.6 MMOL/L (3.5-5.1) Chloride Level 94 MMOL/L (98-107) L Carbon Dioxide Level 29 MMOL/L (21-32) Anion Gap 12 mmol/L (5-15) Blood Urea Nitrogen 30 mg/dL (7-18) H Creatinine 8.9 MG/DL (0.55-1.30) H Estimat Glomerular Filtration Rate 5.6 mL/min (>60) Glucose Level 84 MG/DL (74-106) Calcium Level 8.9 MG/DL (8.5-10.1) Microbiology Date/Time Source Procedure Growth Status 04/21/18 04:00 Sputum Expectorated Gram Stain - Final Resulted 04/21/18 04:00 Sputum Expectorated Sputum Culture - Preliminary NORMAL UPPER RESPIRATORY ESTEPHANIE AT 24 ... Resulted Objective HEAD AND NECK: No JVD. LUNGS: Decreased breath sounds. CARDIOVASCULAR: Kp S1 and S2 no GRM ABDOMEN: Soft. EXTREMITIES: No edema Tc Liang MD Apr 22, 2018 13:17
--- NOTE | 2018-04-22 15:00 | NUR ---
NURSE NOTES: Patient asleep. Appears calm and comfortable.
[2018-04-22] MEDS ORDERED: Tubing IV Secondary IV ONE (16:53)
--- NOTE | 2018-04-22 16:54 | Infectious Diseases Prog Note ---
Assessment/Plan Assessment/Plan ASSESSMENT: 1. sepsis, shock, pneumonia, CT chest noted, pressors, bradycardia, sputum culture with mold, ? aspergillus pna - - continue meropenem, doxycycline and voriconazole (mold on sputum culture) - hearing better off vancomycin - monitor labs and chest x-ray - mycoplasma IGM is negative, cannot obtain legionella urine antigen secondary to no urine output (HD) - icu care, remains on pressors - d/w RN 2. End-stage renal disease, hemodialysis, has a right femoral line hemodialysis line and also left arm graft. 3. History of fistula in the past. 4. History of PermCath in the past 5. Anemia of chronic disease. 6. Hypertension - Blood pressure treatment per primary. 7. No history of diabetes mentioned. 8. Chronic kidney disease. 9. Obesity. 10. History of cholecystectomy. 11. History of parathyroidectomy. 12. History of carpal tunnel syndrome. 13. History of fractures, ORIF. 14. Past medical history noted. 15. Multiple drug allergies including cefazolin, Cipro, contrast media, gentamicin, ketamine, Levaquin and penicillin, she seems to tolerate carbapenems. 16. Social history is negative . 17. Family history is noncontributory. 18. MAR was noted. 19. Case discussed with RN. 20. Continue treatment per primary consultants. 21. Notes were noted and orders were entered. Subjective Constitutional: Denies: fever HEENT: Reports: congestion - less Respiratory: Reports: shortness of breath - less Cardiovascular: Denies: chest pain Gastrointestinal/Abdominal: Denies: nausea, vomiting, diarrhea Genitourinary: Reports: other - no mckinney Neurologic: Denies: headache Psychiatric: Denies: depression Skin: Denies: rash Hematologic: Denies: bleeding Musculoskeletal: Denies: pain Allergies: Coded Allergies: CEFAZOLIN (Verified Allergy, Unknown, 10/02/10) CIPROFLOXACIN (Verified Allergy, Unknown, 10/02/10) GENTAMICIN (Verified Allergy, Unknown, 10/02/10) KETAMINE (Verified Allergy, Unknown, 03/29/18) LEVOFLOXACIN (Verified Allergy, Unknown, 10/02/10) PENICILLINS (Verified Allergy, Unknown, ITCH, 10/02/10) Uncoded Allergies: CONTRAST MEDIA (Adverse Reaction, Mild, MILD ITCHING AFTER CONTRAST MEDIA, 04/30/17) Objective Vital Signs Last 24 Hour Vital Signs Date Time Temp Pulse Resp B/P (MAP) Pulse Ox O2 Delivery O2 Flow Rate FiO2 04/22/18 13:43 109/57 04/22/18 12:30 64 19 137/44 (75) 95 04/22/18 12:00 97.8 59 19 142/46 (78) 90 04/22/18 12:00 Nasal Cannula 4.0 04/22/18 11:39 77/49 04/22/18 11:00 61 17 122/51 (74) 99 04/22/18 11:00 122/51 04/22/18 10:30 59 17 132/49 (76) 100 04/22/18 10:00 63 16 132/63 (86) 98 04/22/18 10:00 121/54 04/22/18 09:30 70 11 123/60 (81) 96 04/22/18 09:00 89 21 104/32 (56) 96 04/22/18 09:00 104/32 04/22/18 08:30 74 18 108/55 (72) 99 04/22/18 08:29 108/55 04/22/18 08:00 97.1 74 19 118/99 (105) 100 04/22/18 08:00 Nasal Cannula 4.0 04/22/18 08:00 134/58 04/22/18 08:00 64 04/22/18 07:29 97 Nasal Cannula 4.0 36 04/22/18 07:29 Nasal Cannula 4.0 36 04/22/18 07:00 70 20 100/34 (56) 98 04/22/18 07:00 100/34 04/22/18 06:30 70 20 102/46 (64) 97 04/22/18 06:00 70 20 107/37 (60) 98 04/22/18 06:00 107/37 04/22/18 05:51 85/34 04/22/18 05:30 81 21 109/36 (60) 97 04/22/18 05:00 132/45 04/22/18 05:00 97 21 132/45 (74) 92 04/22/18 04:45 97 20 83/38 (53) 92 04/22/18 04:30 85 21 89/53 (65) 92 04/22/18 04:00 Nasal Cannula 2.0 04/22/18 04:00 77 1/4/19 04:00 98.0 72 21 106/54 (71) 92 04/22/18 04:00 106/54 04/22/18 03:30 74 21 84/29 (47) 92 04/22/18 03:00 106/20 04/22/18 03:00 66 22 106/20 (48) 92 04/22/18 02:45 65 21 101/53 (69) 92 04/22/18 02:30 65 21 92/28 (49) 93 04/22/18 02:15 67 20 85/60 (68) 96 04/22/18 02:00 69 20 75/60 (65) 96 04/22/18 02:00 75/60 04/22/18 01:45 67 16 102/45 (64) 96 04/22/18 01:30 72 16 83/56 (65) 96 04/22/18 01:00 72 16 95/39 (57) 96 04/22/18 01:00 95/39 04/22/18 00:30 68 18 113/42 (65) 96 04/22/18 00:18 98.2 04/22/18 00:00 111/46 04/22/18 00:00 77 04/22/18 00:00 Nasal Cannula 2.0 04/22/18 00:00 98.1 66 20 111/46 (67) 97 04/21/18 23:30 73 18 103/39 (60) 96 04/21/18 23:00 68 20 138/53 (81) 96 04/21/18 23:00 138/53 04/21/18 22:58 127/47 04/21/18 22:30 73 20 106/42 (63) 97 04/21/18 22:00 72 19 102/44 (63) 98 04/21/18 22:00 102/44 04/21/18 21:30 76 19 114/47 (69) 97 04/21/18 21:00 74 21 111/46 (67) 97 04/21/18 21:00 111/46 04/21/18 20:45 71 22 116/44 (68) 97 04/21/18 20:30 70 21 98/72 (81) 98 04/21/18 20:25 98 Nasal Cannula 4.0 36 04/21/18 20:25 Nasal Cannula 4.0 36 04/21/18 20:15 77 20 108/40 (62) 97 04/21/18 20:00 98.7 112 20 130/58 (82) 97 04/21/18 20:00 130/58 04/21/18 20:00 70 04/21/18 20:00 Nasal Cannula 2.0 04/21/18 19:45 74 20 128/58 (81) 99 04/21/18 19:30 70 20 119/47 (71) 99 04/21/18 19:15 65 20 123/54 (77) 100 04/21/18 19:00 99/63 04/21/18 19:00 67 20 99/63 (75) 98 04/21/18 18:00 70 16 119/62 (81) 94 04/21/18 17:29 68/29 04/21/18 17:00 70 15 119/49 (72) 94 Height (Feet): 5 Height (Inches): 6.00 Weight (Pounds): 212 General Appearance: no acute distress, other - still on pressors HEENT: normocephalic, atraumatic, anicteric, mucous membranes moist Respiratory/Chest: crackles/rales, rhonchi - bilaterally Cardiovascular: normal rate, regular rhythm, no gallop/murmur, no JVD Abdomen: normal bowel sounds, soft, non tender, no organomegaly, non distended Genitourinary: other - no mckinney Extremities: no cyanosis Skin: no rash Neurologic/Psychiatric: heart coordinator 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 Follow-up after appropriate treatment recommended to ensure resolution. * Patchy opacities in the right upper lobe are also likely infectious in etiology. These obscure the previously described lung nodule. Attention to this area on follow-up recommended. * Prominent hilar and mediastinal lymph nodes, possibly reactive in etiology. * Small bilateral pleural effusions. * Large hiatal hernia * Dialysis catheter tip in the right atrium. Evidence of central venous occlusion with multiple collateral veins noted in the mediastinum. * Nonspecific calcifications in the bilateral breasts are correlation with most recent mammogram recommended. If none performed recently, then recommend follow- up screening mammogram. * Findings suggestive of renal osteodystrophy Chest x-ray - 04/14 - Findings: Heart size and mediastinal contours stable. Femoral approach dialysis catheter is again noted. Multiple surgical clips noted in the bilateral axilla. Portions of a stents again visualized in the right axilla. Multiple surgical clips noted in the right arm. 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 No evidence of pneumothorax. There is patchy opacity at the right base. Osseous structures stable. Calcifications in the right breast noted. Impression: Left-sided airspace opacities most concerning for pneumonia. There is slight interval increased density compared to prior exam which may be technical. 04/16/18 - chest x-ray - IMPRESSION: 1. Bilateral airspace opacities, most confluent in the left midlung field. Could be from consolidation/pneumonia. There is a broad differential. Follow to ensure resolution and exclude other mimics. 2. Suspect bilateral pleural effusions. 3. Vascular congestion. 04/20/18: Comparison: 04/16/2018 A single view chest radiograph was obtained. Findings: Interstitial edema again suspected mild in degree, slightly improved from the prior study. Heart size is stable. Large bore catheter projected over the right atrium entering from the IVC. Pleural-based density lateral aspect of the left lung again noted. Extensive surgical clips in the thoracic inlet and left axillary region noted. IMPRESSION: Some improvement in the initial edema. Other findings stable Microbiology Date/Time Source Procedure Growth Status 04/12/18 11:35 Blood Blood Culture - Final NO GROWTH AFTER 5 DAYS Complete 04/21/18 04:00 Sputum Expectorated Gram Stain - Final Resulted 04/21/18 04:00 Sputum Expectorated Sputum Culture - Preliminary NORMAL UPPER RESPIRATORY ESTEPHANIE AT 24 ... Resulted 04/19/18 02:00 Stool Stool Culture - Final NO SALMONELLA,SHIGELLA OR CAMPYLOBACT... Complete 04/12/18 12:10 Rectum - Final NO CARBAPENEM-RESISTANT ENTEROBACTERI... Complete Microbiology Date/Time Source Procedure Growth Status 04/21/18 04:00 Sputum Expectorated Gram Stain - Final Resulted 04/21/18 04:00 Sputum Expectorated Sputum Culture - Preliminary NORMAL UPPER RESPIRATORY ESTEPHANIE AT 24 ... Resulted Laboratory Tests Test 04/22/18 05:28 White Blood Count 6.2 K/UL (4.8-10.8) Red Blood Count 3.56 M/UL (4.20-5.40) L Hemoglobin 11.0 G/DL (12.0-16.0) L Hematocrit 32.9 % (37.0-47.0) L Mean Corpuscular Volume 92 FL (80-99) Mean Corpuscular Hemoglobin 30.8 PG (27.0-31.0) Mean Corpuscular Hemoglobin Concent 33.4 G/DL (32.0-36.0) Red Cell Distribution Width 14.4 % (11.6-14.8) Platelet Count 214 K/UL (150-450) Mean Platelet Volume 8.2 FL (6.5-10.1) Neutrophils (%) (Auto) 76.3 % (45.0-75.0) H Lymphocytes (%) (Auto) 15.1 % (20.0-45.0) L Monocytes (%) (Auto) 7.4 % (1.0-10.0) Eosinophils (%) (Auto) 1.0 % (0.0-3.0) Basophils (%) (Auto) 0.2 % (0.0-2.0) Sodium Level 135 MMOL/L (136-145) L Potassium Level 3.6 MMOL/L (3.5-5.1) Chloride Level 94 MMOL/L (98-107) L Carbon Dioxide Level 29 MMOL/L (21-32) Anion Gap 12 mmol/L (5-15) Blood Urea Nitrogen 30 mg/dL (7-18) H Creatinine 8.9 MG/DL (0.55-1.30) H Estimat Glomerular Filtration Rate 5.6 mL/min (>60) Glucose Level 84 MG/DL (74-106) Calcium Level 8.9 MG/DL (8.5-10.1) Current Medications Medications (Trade) Dose Ordered Sig/Marcos Route PRN Reason Start Time Stop Time Status Last Admin Dose Admin Acetaminophen (Tylenol) 650 mg Q6H PRN ORAL Mild Pain/Temp > 100.5 04/12/18 17:45 05/12/18 17:44 04/21/18 12:44 Alprazolam (Xanax) 0.5 mg Q6H PRN ORAL For Anxiety 04/21/18 07:30 04/28/18 07:29 Aspirin (ASA) 81 mg DAILY ORAL 04/17/18 09:00 05/17/18 08:59 04/21/18 11:45 Bisacodyl (Dulcolax) 5 mg BID ORAL 04/21/18 19:00 05/21/18 18:59 04/21/18 20:04 Chlorhexidine Gluconate (Nivia-Hex 2%) 1 applic DAILY@2000 TOPIC 04/13/18 20:00 05/13/18 19:59 04/21/18 20:04 Dopamine HCl/ Dextrose 250 ml @ 0 mls/hr Q24H IV 04/18/18 02:00 05/18/18 01:59 04/22/18 11:39 Doxycycline Hyclate 100 mg/ Dextrose 100 ml @ 100 mls/hr Q12HR IV 04/16/18 21:00 04/29/18 20:59 04/22/18 08:29 Guaifenesin (Robitussin) 300 mg Q6H PRN ORAL For Cough 04/14/18 17:00 05/14/18 16:59 04/16/18 02:07 Heparin Sodium (Porcine) (Heparin 5000 units/ml) 5,000 units EVERY 12 HOURS SUBQ 04/12/18 21:00 05/12/18 20:59 04/22/18 08:38 Isosorbide Dinitrate (Isordil) 10 mg TID ORAL 04/16/18 18:00 05/16/18 17:59 04/22/18 13:43 Loperamide HCl (Imodium) 2 mg Q4H PRN ORAL Diarrhea 04/18/18 11:00 05/18/18 10:59 04/18/18 22:23 Meropenem 500 mg/ Sodium Chloride 50 ml @ 100 mls/hr Q24HRS IVPB 04/21/18 14:00 04/26/18 13:59 04/22/18 13:43 Midodrine (Pro-Amatine) 10 mg Q8HR ORAL 04/19/18 14:00 05/19/18 13:59 04/22/18 13:44 Morphine Sulfate (Morphine Sulfate) 2 mg Q4H PRN IVP Moderate Pain (Pain Scale 4-6) 04/21/18 18:30 04/28/18 18:29 04/22/18 09:35 Morphine Sulfate (Morphine Sulfate) 4 mg Q4H PRN IVP Severe Pain (Pain Scale 7-10) 04/21/18 18:30 04/28/18 18:29 Ondansetron HCl (Zofran) 4 mg Q4H PRN IVP Nausea & Vomiting 04/12/18 17:45 05/12/18 17:44 04/21/18 22:57 Pantoprazole (Protonix) 40 mg BID ORAL 04/12/18 18:00 05/12/18 17:59 04/21/18 11:45 Polyethylene Glycol (Miralax) 17 gm BEDTIME ORAL 04/21/18 21:00 05/21/18 20:59 04/21/18 21:34 Sevelamer Carbonate (Renvela) 1,600 mg THREE TIMES A DAY ORAL 04/19/18 13:00 05/13/18 08:59 04/21/18 11:45 Voriconazole (Vfend) 200 mg EVERY 12 HOURS ORAL 04/18/18 21:00 04/25/18 20:59 04/21/18 21:33 Edgardo Mcbride MD Apr 22, 2018 16:54
--- NOTE | 2018-04-22 17:00 | NUR ---
NURSE NOTES: pt allowed for wash up, complete linen change. central line dressing changed 04/22/18. pt in no distress, may request pain medication soon but not at this time.
--- NOTE | 2018-04-22 17:47 | Internal Med Progress Note ---
Subjective Date of Service: Apr 22, 2018 Physician Name Edward Harrell Attending Physician Ash Henley MD Current Medications Medications (Trade) Dose Ordered Sig/Marcos Route PRN Reason Start Time Stop Time Status Last Admin Dose Admin Acetaminophen (Tylenol) 650 mg Q6H PRN ORAL Mild Pain/Temp > 100.5 04/12/18 17:45 05/12/18 17:44 04/21/18 12:44 Alprazolam (Xanax) 0.5 mg Q6H PRN ORAL For Anxiety 04/21/18 07:30 04/28/18 07:29 Aspirin (ASA) 81 mg DAILY ORAL 04/17/18 09:00 05/17/18 08:59 04/21/18 11:45 Bisacodyl (Dulcolax) 5 mg BID ORAL 04/21/18 19:00 05/21/18 18:59 04/21/18 20:04 Chlorhexidine Gluconate (Nivia-Hex 2%) 1 applic DAILY@2000 TOPIC 04/13/18 20:00 05/13/18 19:59 04/21/18 20:04 Dopamine HCl/ Dextrose 250 ml @ 0 mls/hr Q24H IV 04/18/18 02:00 05/18/18 01:59 04/22/18 11:39 Doxycycline Hyclate 100 mg/ Dextrose 100 ml @ 100 mls/hr Q12HR IV 04/16/18 21:00 04/29/18 20:59 04/22/18 08:29 Guaifenesin (Robitussin) 300 mg Q6H PRN ORAL For Cough 04/14/18 17:00 05/14/18 16:59 04/16/18 02:07 Heparin Sodium (Porcine) (Heparin 5000 units/ml) 5,000 units EVERY 12 HOURS SUBQ 04/12/18 21:00 05/12/18 20:59 04/22/18 08:38 Isosorbide Dinitrate (Isordil) 10 mg TID ORAL 04/16/18 18:00 05/16/18 17:59 04/22/18 13:43 Loperamide HCl (Imodium) 2 mg Q4H PRN ORAL Diarrhea 04/18/18 11:00 05/18/18 10:59 04/18/18 22:23 Meropenem 500 mg/ Sodium Chloride 50 ml @ 100 mls/hr Q24HRS IVPB 04/21/18 14:00 04/26/18 13:59 04/22/18 13:43 Midodrine (Pro-Amatine) 10 mg Q8HR ORAL 04/19/18 14:00 05/19/18 13:59 04/22/18 13:44 Morphine Sulfate (Morphine Sulfate) 2 mg Q4H PRN IVP Moderate Pain (Pain Scale 4-6) 04/21/18 18:30 04/28/18 18:29 04/22/18 09:35 Morphine Sulfate (Morphine Sulfate) 4 mg Q4H PRN IVP Severe Pain (Pain Scale 7-10) 04/21/18 18:30 04/28/18 18:29 Ondansetron HCl (Zofran) 4 mg Q4H PRN IVP Nausea & Vomiting 04/12/18 17:45 05/12/18 17:44 04/21/18 22:57 Pantoprazole (Protonix) 40 mg BID ORAL 04/12/18 18:00 05/12/18 17:59 04/21/18 11:45 Polyethylene Glycol (Miralax) 17 gm BEDTIME ORAL 04/21/18 21:00 05/21/18 20:59 04/21/18 21:34 Sevelamer Carbonate (Renvela) 1,600 mg THREE TIMES A DAY ORAL 04/19/18 13:00 05/13/18 08:59 04/21/18 11:45 Voriconazole (Vfend) 200 mg EVERY 12 HOURS ORAL 04/18/18 21:00 04/25/18 20:59 04/21/18 21:33 Allergies: Coded Allergies: CEFAZOLIN (Verified Allergy, Unknown, 10/02/10) CIPROFLOXACIN (Verified Allergy, Unknown, 10/02/10) GENTAMICIN (Verified Allergy, Unknown, 10/02/10) KETAMINE (Verified Allergy, Unknown, 03/29/18) LEVOFLOXACIN (Verified Allergy, Unknown, 10/02/10) PENICILLINS (Verified Allergy, Unknown, ITCH, 10/02/10) Uncoded Allergies: CONTRAST MEDIA (Adverse Reaction, Mild, MILD ITCHING AFTER CONTRAST MEDIA, 04/30/17) Subjective 53 YO F admitted with shortness of breath. Now pneumonia. Cover for Int Med- Dr Kale. ICU. Continues on dopamine. Abdominal pain improved Objective Last Vital Signs Date Time Temp Pulse Resp B/P (MAP) Pulse Ox O2 Delivery O2 Flow Rate FiO2 04/22/18 16:00 98.1 65 20 108/50 (69) 84 04/22/18 16:00 Nasal Cannula 4.0 04/22/18 07:29 36 Laboratory Tests Test 04/22/18 05:28 White Blood Count 6.2 K/UL (4.8-10.8) Red Blood Count 3.56 M/UL (4.20-5.40) L Hemoglobin 11.0 G/DL (12.0-16.0) L Hematocrit 32.9 % (37.0-47.0) L Mean Corpuscular Volume 92 FL (80-99) Mean Corpuscular Hemoglobin 30.8 PG (27.0-31.0) Mean Corpuscular Hemoglobin Concent 33.4 G/DL (32.0-36.0) Red Cell Distribution Width 14.4 % (11.6-14.8) Platelet Count 214 K/UL (150-450) Mean Platelet Volume 8.2 FL (6.5-10.1) Neutrophils (%) (Auto) 76.3 % (45.0-75.0) H Lymphocytes (%) (Auto) 15.1 % (20.0-45.0) L Monocytes (%) (Auto) 7.4 % (1.0-10.0) Eosinophils (%) (Auto) 1.0 % (0.0-3.0) Basophils (%) (Auto) 0.2 % (0.0-2.0) Sodium Level 135 MMOL/L (136-145) L Potassium Level 3.6 MMOL/L (3.5-5.1) Chloride Level 94 MMOL/L (98-107) L Carbon Dioxide Level 29 MMOL/L (21-32) Anion Gap 12 mmol/L (5-15) Blood Urea Nitrogen 30 mg/dL (7-18) H Creatinine 8.9 MG/DL (0.55-1.30) H Estimat Glomerular Filtration Rate 5.6 mL/min (>60) Glucose Level 84 MG/DL (74-106) Calcium Level 8.9 MG/DL (8.5-10.1) Microbiology Date/Time Source Procedure Growth Status 04/21/18 04:00 Sputum Expectorated Gram Stain - Final Resulted 04/21/18 04:00 Sputum Expectorated Sputum Culture - Preliminary NORMAL UPPER RESPIRATORY ESTEPHANIE AT 24 ... Resulted Intake and Output 04/21/18 04/22/18 18:59 06:59 Intake Total 734.885 ml 760.411 ml Output Total 2500 ml 0 ml Balance -1765.115 ml 760.411 ml Intake Oral 200 ml IV Total 734.885 ml 560.411 ml Output Urine Total 0 ml 0 ml Hemodialysis UF 2500 ml Objective Objective GENERAL: Awake, responsive, alert HEAD AND NECK: Pupils equal and reactive to light. Extraocular movements intact. Neck was supple. No JVD. LUNGS: Fair air entry. Poor respiratory effort. No wheeze or rhonchi. Decreased air in the bases. HEART: S1 and S2. Distant heart sounds. No murmur. ABDOMEN: Soft, nondistended, and nontender. Morbidly obese. EXTREMITIES: No cyanosis, clubbing, or edema. Right femoral area PermCath as well as left upper extremity AV fistula, functional. NEUROLOGIC: Cranial nerves II through XII are grossly intact. The patient is moving all the extremities spontaneously. Gait was not assessed due to the patient's status. PSYCHIATRIC: Mood and affect are intact. Assessment/Plan Assessment/Plan Assessment/Plan Assessment/Plan 1. Sepsis, most likely secondary to left upper lobe and, to a lesser extent, medial right lower lobe most likely representing multifocal pneumonia. 2. Hypotension, possible septic shock. 3. Pancytopenia with severe thrombocytopenia resolving. 4. End-stage renal disease, on hemodialysis. 5. Altered mental status, most likely toxic metabolic encephalopathy as a result of infection as well as uremia. 6. Anemia of chronic kidney disease. 7. Morbid obesity. 8. Bradycardia. 9. Diarrhea 10. Abdominal pain. PLAN: In ICU. follow up laboratory and cultures. Dr. Fredrick Conner from Nephrology consult; next hemodialysis 04/20/18. Dr. Mcbride from ID consult. Discussed with the family member, brother at the bedside. Abx: Vancomycin, Meropenem, Azithromycin Code status is Full Code. DVT prophylaxis: heparin subcutaneous. continue Dopamine Drip CT of chest noted. Cortisol level Pending. C. Diff neg. Send stool for repeat Continue dopamine See GI consult; KUB=no obstruction Edward Harrell MD 4, 2019 17:47
--- NOTE | 2018-04-22 18:02 | NUR ---
CASE MANAGEMENT: REVIEW SI: ESRD ON HD . PNA T 98.1 HR 65 RR 20 BP 97/43 SAT 84% NC/4L NA 135 BUN 30 CR 8.9 IS: DOPAMINE IV Q24HR DOXYCYCLINE IV Q12HR MEROPENEM IV Q24HR MIDODRINE PO Q8HR HEPARIN SQ Q12HR PROTONIX PO BID CLEAR LIQUID PO DIET HD PRN ICU STATUS DCP: PATIENT IS FROM HOME
[2018-04-22] MEDS: Dyna-Hex 2% Top Sol 2oz TOPIC SCH (19:31)
--- NOTE | 2018-04-22 19:44 | NUR ---
HAND-OFF: Report given to venus. pt in no acute distress
--- NOTE | 2018-04-22 19:45 | NUR ---
NURSE NOTES: Endorsement received from WILLI Conway. Patient opens eyes spontaneously, oriented x4, follows commands. On 4 LPM oxygen per nasal cannula. With permacath at right femoral. Ongoing Dopamine single conc 8mcg/kg/min. Head of bed elevated. Call light within reach. Bed locked and in low position, bed alarm on. Reminded patient to use call light for assistance.
--- NOTE | 2018-04-22 21:00 | NUR ---
NURSE NOTES: Patient awake, due medications given. No complains of pain or discomfort at this time.
[2018-04-22] MEDS: Miralax 17gm pkt ORAL SCH (21:43)
--- NOTE | 2018-04-22 23:00 | NUR ---
NURSE NOTES: Patient asleep. No shortness of breath. Bed locked and in low position. Bed alarm on.
[2018-04-23] VITALS (53 sets, daily range): BP systolic 44–140; BP diastolic 28–91
--- NOTE | 2018-04-23 01:00 | NUR ---
NURSE NOTES: Dopamine at 10mcg/kg/min. Patient asleep. No signs of pain or discomfort.
[2018-04-23] MEDS: DOPamine 400mg/250ml 250 ML IV SCH ×5 (01:27→23:57)
--- NOTE | 2018-04-23 03:00 | NUR ---
NURSE NOTES: Patient asleep. Vital sign stable. Dopamine titrated accordingly
--- NOTE | 2018-04-23 05:00 | NUR ---
NURSE NOTES: Patient refused bed bath at this time, prefers to do it later.
[2018-04-23] MEDS: Midodrine 10mg tab ORAL SCH ×3 (05:47→22:00)
[2018-04-23 05:59] LABS: BASOPHILS % (AUTO) 0.3 % (0.0-2.0); EOSINOPHILS % (AUTO) 0.9 % (0.0-3.0); HEMATOCRIT 31.5 % (37.0-47.0); HEMOGLOBIN 10.3 G/DL (12.0-16.0); LYMPHOCYTES % (AUTO) 14.5 % (20.0-45.0); MEAN CORPUSCULAR VOLUME 93 FL (80-99); MONOCYTES % (AUTO) 7.5 % (1.0-10.0); NEUTROPHILS % (AUTO) 76.8 % (45.0-75.0); PLATELET COUNT 201 K/UL (150-450); RED BLOOD COUNT 3.39 M/UL (4.20-5.40); RED CELL DISTRIBUTION WIDTH 14.6 % (11.6-14.8); WHITE BLOOD COUNT 7.2 K/UL (4.8-10.8)
--- NOTE | 2018-04-23 06:00 | NUR ---
NURSE NOTES: Bed bath, change of linens done.
[2018-04-23 06:25] LABS: ALANINE AMINOTRANSFERASE 10 U/L (12-78); ALBUMIN/GLOBULIN RATIO 0.6 (1.0-2.7); ALKALINE PHOSPHATASE 187 U/L (46-116); ANION GAP 12 mmol/L (5-15); ASPARTATE AMINO TRANSFERASE 16 U/L (15-37); BILIRUBIN,TOTAL 0.8 MG/DL (0.2-1.0); BLOOD UREA NITROGEN 38 mg/dL (7-18); CALCIUM 9.5 MG/DL (8.5-10.1); CARBON DIOXIDE 28 MMOL/L (21-32); CHLORIDE 92 MMOL/L (98-107); PHOSPHORUS 5.3 MG/DL (2.5-4.9); SODIUM 132 MMOL/L (136-145)
--- NOTE | 2018-04-23 07:09 | NUR ---
HAND-OFF: Report given to WILLI Conway.
--- NOTE | 2018-04-23 07:20 | NUR ---
NURSE NOTES: Received report from WILLI Rivas. Patient resting in bed, opens eyes spontaneously and to voice. AA/OX4, able to make needs known. 2 L NC, 02sat 98%. Abdomen round, non tender, bowel sounds present. No BM this shift. Anuric. non pitting ankle edema. Skin intact. IV access RT femoral PermaCath, running Dopamine @10mcg/kg/min. Fall precautions in place. Head of bed>30. Call light in reach. Bed locked and in low position, bed alarm on. Education on medication S.E and plan of care for today.
--- NOTE | 2018-04-23 07:40 | NUR ---
NURSE NOTES: R.T doing CPT, on pt. Tolerating well. no c/o pain.
[2018-04-23] MEDS: Morphine Sulfate 4mg/ml Inj (IV USE ONLY) IVP PRN ×2 (09:16→21:46)
[2018-04-23] MEDS: Bisacodyl EC 5mg tab ORAL SCH ×2 (09:25→17:30)
[2018-04-23] MEDS: Aspirin Baby 81mg ORAL SCH (09:25)
[2018-04-23] MEDS: Heparin 5000 units/ml inj SUBQ SCH ×2 (09:34→22:01)
--- NOTE | 2018-04-23 10:06 | Pulmonolgy Critical Care Note ---
Critical Care - Asmt/Plan Problems: (1) Septic shock (2) Pneumonia (3) Hypotension (4) ESRD (end stage renal disease) on dialysis (5) CHF (congestive heart failure) (6) Hypoparathyroidism Respiratory: monitor respiratory rate, adjust FIO2, CXR Cardiac: continue pressors, continue to monitor HR/BP Renal: F/U I&O Infectious Disease: check cultures Gastrointestinal: continue feedings/current rate Endocrine: monitor blood sugar, check HgA1C Hematologic: transfuse if hgb<8.5 Neurologic: PRN Morphine, keep patient comfortable Affect: PRN ativan Notes Reviewed: manager community, renal Discussed with: nurses, consultants, 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 [employer] - Objective Last 24 Hour Vital Signs Date Time Temp Pulse Resp B/P (MAP) Pulse Ox O2 Delivery O2 Flow Rate FiO2 04/23/18 09:25 111/84 04/23/18 08:00 Nasal Cannula 4.0 04/23/18 08:00 77 24 105/54 (71) 100 04/23/18 07:30 61 18 103/43 (63) 99 04/23/18 07:24 96 Nasal Cannula 4.0 36 04/23/18 07:24 Nasal Cannula 4.0 36 04/23/18 07:00 97.9 66 22 103/43 (63) 97 04/23/18 06:00 95/54 04/23/18 06:00 64 18 108/51 (70) 98 04/23/18 05:30 76 18 136/65 (88) 99 04/23/18 05:00 69 19 102/86 (91) 99 04/23/18 05:00 102/86 04/23/18 04:30 61 18 108/43 (64) 96 04/23/18 04:00 97.9 60 18 110/49 (69) 99 04/23/18 04:00 62 04/23/18 04:00 Nasal Cannula 2.0 04/23/18 04:00 113/54 04/23/18 03:30 62 18 109/47 (67) 96 04/23/18 03:00 109/47 04/23/18 03:00 69 18 115/52 (73) 96 04/23/18 02:30 61 18 115/54 (74) 98 04/23/18 02:00 65 20 131/66 (87) 97 04/23/18 02:00 131/66 04/23/18 01:30 67 20 119/57 (77) 97 04/23/18 01:27 135/67 04/23/18 01:00 135/67 04/23/18 01:00 63 21 135/67 (89) 97 04/23/18 00:30 65 21 107/91 (96) 97 04/23/18 00:00 98.3 62 21 128/64 (85) 97 04/23/18 00:00 139/63 04/23/18 00:00 60 04/23/18 00:00 Nasal Cannula 2.0 04/22/18 23:30 62 21 128/64 (85) 97 04/22/18 23:18 61 04/22/18 23:00 81 21 126/63 (84) 97 04/22/18 22:30 65 20 93/77 (82) 96 04/22/18 22:00 73 20 133/61 (85) 96 04/22/18 21:30 82 20 108/60 (76) 97 04/22/18 21:00 61 20 90/30 (50) 96 04/22/18 20:45 65 18 78/25 (42) 94 04/22/18 20:30 Nasal Cannula 4.0 36 04/22/18 20:30 96 Nasal Cannula 4.0 36 04/22/18 20:30 65 20 61/33 (42) 96 04/22/18 20:15 65 17 82/34 (50) 99 04/22/18 20:00 Nasal Cannula 2.0 04/22/18 20:00 63 13 109/51 (70) 99 04/22/18 19:30 98.2 65 13 109/53 (71) 94 04/22/18 19:26 98.1 04/22/18 19:00 61 13 71/53 (59) 94 04/22/18 18:03 95/32 04/22/18 18:00 66 23 89/32 (51) 97 04/22/18 17:58 114/47 04/22/18 17:30 60 17 117/50 (72) 93 04/22/18 17:00 58 17 106/57 (73) 95 04/22/18 16:00 98.1 65 20 108/50 (69) 84 04/22/18 16:00 Nasal Cannula 4.0 04/22/18 16:00 59 04/22/18 15:00 64 18 102/28 (52) 98 04/22/18 14:00 85 24 97/43 (61) 90 04/22/18 13:43 109/57 04/22/18 13:00 62 28 115/63 (80) 96 04/22/18 12:30 64 19 137/44 (75) 95 04/22/18 12:00 97.8 59 19 142/46 (78) 90 04/22/18 12:00 59 04/22/18 12:00 Nasal Cannula 4.0 04/22/18 11:39 77/49 04/22/18 11:00 61 17 122/51 (74) 99 04/22/18 11:00 122/51 04/22/18 10:30 59 17 132/49 (76) 100 Status: awake Condition: critical, improving HEENT: atraumatic Neck: full ROM Heart: HR/BP stable Abdomen: soft Extremities: no C/C/E Decubiti: location Micro: Microbiology Date/Time Source Procedure Growth Status 04/21/18 04:00 Sputum Expectorated Gram Stain - Final Resulted 04/21/18 04:00 Sputum Expectorated Sputum Culture - Preliminary NORMAL UPPER RESPIRATORY ESTEPHANIE AT 23 ... Resulted Critical Care - Subjective ROS Limited/Unobtainable: Yes Condition: critical EKG Rhythm: Sinus Rhythm FI02: 36 Sputum Amount: None I&O: Intake and Output 04/22/18 04/23/18 19:00 07:00 Intake Total 887.493 ml 446.869 ml Output Total 0 ml 0 ml Balance 887.493 ml 446.869 ml Intake Oral 200 ml IV Total 687.493 ml 446.869 ml Output Urine Total 0 ml 0 ml CXR: no changes Labs: Laboratory Tests Test 04/23/18 05:10 White Blood Count 7.2 K/UL (4.8-10.8) Red Blood Count 3.39 M/UL (4.20-5.40) L Hemoglobin 10.3 G/DL (12.0-16.0) L Hematocrit 31.5 % (37.0-47.0) L Mean Corpuscular Volume 93 FL (80-99) Mean Corpuscular Hemoglobin 30.4 PG (27.0-31.0) Mean Corpuscular Hemoglobin Concent 32.7 G/DL (32.0-36.0) Red Cell Distribution Width 14.6 % (11.6-14.8) Platelet Count 201 K/UL (150-450) Mean Platelet Volume 8.8 FL (6.5-10.1) Neutrophils (%) (Auto) 76.8 % (45.0-75.0) H Lymphocytes (%) (Auto) 14.5 % (20.0-45.0) L Monocytes (%) (Auto) 7.5 % (1.0-10.0) Eosinophils (%) (Auto) 0.9 % (0.0-3.0) Basophils (%) (Auto) 0.3 % (0.0-2.0) Sodium Level 132 MMOL/L (136-145) L Potassium Level 4.0 MMOL/L (3.5-5.1) Chloride Level 92 MMOL/L (98-107) L Carbon Dioxide Level 28 MMOL/L (21-32) Anion Gap 12 mmol/L (5-15) Blood Urea Nitrogen 38 mg/dL (7-18) H Creatinine 10.0 MG/DL (0.55-1.30) H Estimat Glomerular Filtration Rate 5.0 mL/min (>60) Glucose Level 70 MG/DL (74-106) L Calcium Level 9.5 MG/DL (8.5-10.1) Phosphorus Level 5.3 MG/DL (2.5-4.9) H Magnesium Level 1.6 MG/DL (1.8-2.4) L Total Bilirubin 0.8 MG/DL (0.2-1.0) Aspartate Amino Transf (AST/SGOT) 16 U/L (15-37) Alanine Aminotransferase (ALT/SGPT) 10 U/L (12-78) L Alkaline Phosphatase 187 U/L (46-116) H Total Protein 7.8 G/DL (6.4-8.2) Albumin 3.0 G/DL (3.4-5.0) L Globulin 4.8 g/dL Albumin/Globulin Ratio 0.6 (1.0-2.7) L Cuate Schmidt MD Apr 23, 2018 10:06
--- NOTE | 2018-04-23 11:20 | NUR ---
NURSE NOTES: MD PRIETO, HERE TO SEE PT. WAS UPDATED ON LABS AND STATUS. WILL PLACE OWN ORDERS.
--- NOTE | 2018-04-23 11:28 | General Progress Note ---
Assessment/Plan Problem List: (1) Pneumonia ICD Codes: J18.9 - Pneumonia, unspecified organism SNOMED: 316468613 Qualifiers: Qualified Codes: J18.1 - Lobar pneumonia, unspecified organism (2) ESRD (end stage renal disease) on dialysis ICD Codes: N18.6 - End stage renal disease; Z99.2 - Dependence on renal dialysis SNOMED: 085932408 (3) HTN (hypertension) ICD Codes: I10 - Essential (primary) hypertension SNOMED: 64317219 (4) Anemia of renal disease ICD Codes: D63.1 - Anemia in chronic kidney disease SNOMED: 070155314, 491608841 Assessment/Plan anemia work up advance diet change protonix to daily dc imodium fu labs Subjective ROS Limited/Unobtainable: Yes Allergies: Coded Allergies: CEFAZOLIN (Verified Allergy, Unknown, 10/02/10) CIPROFLOXACIN (Verified Allergy, Unknown, 10/02/10) GENTAMICIN (Verified Allergy, Unknown, 10/02/10) KETAMINE (Verified Allergy, Unknown, 03/29/18) LEVOFLOXACIN (Verified Allergy, Unknown, 10/02/10) PENICILLINS (Verified Allergy, Unknown, ITCH, 10/02/10) Uncoded Allergies: CONTRAST MEDIA (Adverse Reaction, Mild, MILD ITCHING AFTER CONTRAST MEDIA, 04/30/17) Subjective getting HD Objective Last 24 Hour Vital Signs Date Time Temp Pulse Resp B/P (MAP) Pulse Ox O2 Delivery O2 Flow Rate FiO2 04/23/18 10:00 77 21 128/65 (86) 95 04/23/18 09:30 63 16 140/75 (96) 97 04/23/18 09:25 111/84 04/23/18 09:00 76 17 65/37 (46) 95 04/23/18 08:00 Nasal Cannula 4.0 04/23/18 08:00 77 24 105/54 (71) 100 04/23/18 07:30 61 18 103/43 (63) 99 04/23/18 07:24 96 Nasal Cannula 4.0 36 04/23/18 07:24 Nasal Cannula 4.0 36 04/23/18 07:00 97.9 66 22 103/43 (63) 97 04/23/18 06:00 95/54 04/23/18 06:00 64 18 108/51 (70) 98 04/23/18 05:30 76 18 136/65 (88) 99 04/23/18 05:00 69 19 102/86 (91) 99 04/23/18 05:00 102/86 04/23/18 04:30 61 18 108/43 (64) 96 04/23/18 04:00 97.9 60 18 110/49 (69) 99 04/23/18 04:00 62 04/23/18 04:00 Nasal Cannula 2.0 04/23/18 04:00 113/54 04/23/18 03:30 62 18 109/47 (67) 96 04/23/18 03:00 109/47 04/23/18 03:00 69 18 115/52 (73) 96 04/23/18 02:30 61 18 115/54 (74) 98 04/23/18 02:00 65 20 131/66 (87) 97 04/23/18 02:00 131/66 04/23/18 01:30 67 20 119/57 (77) 97 04/23/18 01:27 135/67 04/23/18 01:00 135/67 04/23/18 01:00 63 21 135/67 (89) 97 04/23/18 00:30 65 21 107/91 (96) 97 04/23/18 00:00 98.3 62 21 128/64 (85) 97 04/23/18 00:00 139/63 04/23/18 00:00 60 04/23/18 00:00 Nasal Cannula 2.0 04/22/18 23:30 62 21 128/64 (85) 97 04/22/18 23:18 61 04/22/18 23:00 81 21 126/63 (84) 97 04/22/18 22:30 65 20 93/77 (82) 96 04/22/18 22:00 73 20 133/61 (85) 96 04/22/18 21:30 82 20 108/60 (76) 97 04/22/18 21:00 61 20 90/30 (50) 96 04/22/18 20:45 65 18 78/25 (42) 94 04/22/18 20:30 Nasal Cannula 4.0 36 04/22/18 20:30 96 Nasal Cannula 4.0 36 04/22/18 20:30 65 20 61/33 (42) 96 04/22/18 20:15 65 17 82/34 (50) 99 04/22/18 20:00 Nasal Cannula 2.0 04/22/18 20:00 63 13 109/51 (70) 99 04/22/18 19:30 98.2 65 13 109/53 (71) 94 04/22/18 19:26 98.1 04/22/18 19:00 61 13 71/53 (59) 94 04/22/18 18:03 95/32 04/22/18 18:00 66 23 89/32 (51) 97 04/22/18 17:58 114/47 04/22/18 17:30 60 17 117/50 (72) 93 04/22/18 17:00 58 17 106/57 (73) 95 04/22/18 16:00 98.1 65 20 108/50 (69) 84 04/22/18 16:00 Nasal Cannula 4.0 04/22/18 16:00 59 04/22/18 15:00 64 18 102/28 (52) 98 04/22/18 14:00 85 24 97/43 (61) 90 04/22/18 13:43 109/57 04/22/18 13:00 62 28 115/63 (80) 96 04/22/18 12:30 64 19 137/44 (75) 95 04/22/18 12:00 97.8 59 19 142/46 (78) 90 04/22/18 12:00 59 04/22/18 12:00 Nasal Cannula 4.0 04/22/18 11:39 77/49 Intake and Output 04/22/18 04/23/18 19:00 07:00 Intake Total 887.493 ml 480.723 ml Output Total 0 ml 0 ml Balance 887.493 ml 480.723 ml Intake Oral 200 ml IV Total 687.493 ml 480.723 ml Output Urine Total 0 ml 0 ml Laboratory Tests 04/23/18 05:10: White Blood Count 7.2, Red Blood Count 3.39L, Hemoglobin 10.3L, Hematocrit 31.5L , Mean Corpuscular Volume 93, Mean Corpuscular Hemoglobin 30.4, Mean Corpuscular Hemoglobin Concent 32.7, Red Cell Distribution Width 14.6, Platelet Count 201, Mean Platelet Volume 8.8, Neutrophils (%) (Auto) 76.8H, Lymphocytes ( %) (Auto) 14.5L, Monocytes (%) (Auto) 7.5, Eosinophils (%) (Auto) 0.9, Basophils (%) (Auto) 0.3, Sodium Level 132L, Potassium Level 4.0, Chloride Level 92L, Carbon Dioxide Level 28, Anion Gap 12, Blood Urea Nitrogen 38H, Creatinine 10.0H, Estimat Glomerular Filtration Rate 5.0, Glucose Level 70L, Calcium Level 9.5, Phosphorus Level 5.3H, Magnesium Level 1.6L, Total Bilirubin 0.8, Aspartate Amino Transf (AST/SGOT) 16, Alanine Aminotransferase (ALT/SGPT) 10L, Alkaline Phosphatase 187H, Total Protein 7.8, Albumin 3.0L, Globulin 4.8, Albumin/Globulin Ratio 0.6L Height (Feet): 5 Height (Inches): 6.00 Weight (Pounds): 210 General Appearance: alert EENT: normal ENT inspection Neck: supple Cardiovascular: normal rate Respiratory/Chest: accessory muscle use Abdomen: normal bowel sounds, non tender, soft Extremities: non-tender Ryley Diaz MD Apr 23, 2018 11:28
--- NOTE | 2018-04-23 11:35 | NUR ---
NURSE NOTES: H.D HERE TO DIALYZE PT. BP STABLE, INCREASED DOPAMINE TO 18MCG/KG/MIN. BP 129/ 60, HR 85. PT IN NO ACUTE DISTRESS. WILL CONTINUE TO MONITOR.
--- NOTE | 2018-04-23 12:36 | Nephrology Progress Note ---
Assessment/Plan Problem List: (1) ESRD (end stage renal disease) on dialysis (2) Hypotension (3) Anemia of renal disease (4) Metabolic encephalopathy (5) Pneumonia Assessment ESRD on HD- HypoThyroidism- Periodic Hypotension- encephalopathic , metabolic- Plan dialysis 2/ currently on- tolerating well. add asa and isordil for rising Troponin add prn imodium for loose bm per orders midodrine per consultants antibiotics for pneumonia Cardiac advise for low HR Subjective ROS Limited/Unobtainable: No Objective Objective Last 24 Hour Vital Signs Date Time Temp Pulse Resp B/P (MAP) Pulse Ox O2 Delivery O2 Flow Rate FiO2 04/23/18 11:39 Nasal Cannula 4.0 04/23/18 10:00 77 21 128/65 (86) 95 04/23/18 09:30 63 16 140/75 (96) 97 04/23/18 09:25 111/84 04/23/18 09:00 76 17 65/37 (46) 95 04/23/18 08:00 58 04/23/18 08:00 Nasal Cannula 4.0 04/23/18 08:00 77 24 105/54 (71) 100 04/23/18 07:30 61 18 103/43 (63) 99 04/23/18 07:24 96 Nasal Cannula 4.0 36 04/23/18 07:24 Nasal Cannula 4.0 36 04/23/18 07:00 97.9 66 22 103/43 (63) 97 04/23/18 06:00 95/54 04/23/18 06:00 64 18 108/51 (70) 98 04/23/18 05:30 76 18 136/65 (88) 99 04/23/18 05:00 69 19 102/86 (91) 99 04/23/18 05:00 102/86 04/23/18 04:30 61 18 108/43 (64) 96 04/23/18 04:00 97.9 60 18 110/49 (69) 99 04/23/18 04:00 62 04/23/18 04:00 Nasal Cannula 2.0 04/23/18 04:00 113/54 04/23/18 03:30 62 18 109/47 (67) 96 04/23/18 03:00 109/47 04/23/18 03:00 69 18 115/52 (73) 96 04/23/18 02:30 61 18 115/54 (74) 98 04/23/18 02:00 65 20 131/66 (87) 97 04/23/18 02:00 131/66 04/23/18 01:30 67 20 119/57 (77) 97 04/23/18 01:27 135/67 04/23/18 01:00 135/67 04/23/18 01:00 63 21 135/67 (89) 97 04/23/18 00:30 65 21 107/91 (96) 97 04/23/18 00:00 98.3 62 21 128/64 (85) 97 04/23/18 00:00 139/63 04/23/18 00:00 60 04/23/18 00:00 Nasal Cannula 2.0 04/22/18 23:30 62 21 128/64 (85) 97 04/22/18 23:18 61 04/22/18 23:00 81 21 126/63 (84) 97 04/22/18 22:30 65 20 93/77 (82) 96 04/22/18 22:00 73 20 133/61 (85) 96 04/22/18 21:30 82 20 108/60 (76) 97 04/22/18 21:00 61 20 90/30 (50) 96 04/22/18 20:45 65 18 78/25 (42) 94 04/22/18 20:30 Nasal Cannula 4.0 36 04/22/18 20:30 96 Nasal Cannula 4.0 36 04/22/18 20:30 65 20 61/33 (42) 96 04/22/18 20:15 65 17 82/34 (50) 99 04/22/18 20:00 Nasal Cannula 2.0 04/22/18 20:00 63 13 109/51 (70) 99 04/22/18 19:30 98.2 65 13 109/53 (71) 94 04/22/18 19:26 98.1 04/22/18 19:00 61 13 71/53 (59) 94 04/22/18 18:03 95/32 04/22/18 18:00 66 23 89/32 (51) 97 04/22/18 17:58 114/47 04/22/18 17:30 60 17 117/50 (72) 93 04/22/18 17:00 58 17 106/57 (73) 95 04/22/18 16:00 98.1 65 20 108/50 (69) 84 04/22/18 16:00 Nasal Cannula 4.0 04/22/18 16:00 59 04/22/18 15:00 64 18 102/28 (52) 98 04/22/18 14:00 85 24 97/43 (61) 90 04/22/18 13:43 109/57 04/22/18 13:00 62 28 115/63 (80) 96 Intake and Output 04/22/18 04/23/18 19:00 07:00 Intake Total 887.493 ml 480.723 ml Output Total 0 ml 0 ml Balance 887.493 ml 480.723 ml Intake Oral 200 ml IV Total 687.493 ml 480.723 ml Output Urine Total 0 ml 0 ml Laboratory Tests 04/23/18 05:10: White Blood Count 7.2, Red Blood Count 3.39L, Hemoglobin 10.3L, Hematocrit 31.5L , Mean Corpuscular Volume 93, Mean Corpuscular Hemoglobin 30.4, Mean Corpuscular Hemoglobin Concent 32.7, Red Cell Distribution Width 14.6, Platelet Count 201, Mean Platelet Volume 8.8, Neutrophils (%) (Auto) 76.8H, Lymphocytes ( %) (Auto) 14.5L, Monocytes (%) (Auto) 7.5, Eosinophils (%) (Auto) 0.9, Basophils (%) (Auto) 0.3, Sodium Level 132L, Potassium Level 4.0, Chloride Level 92L, Carbon Dioxide Level 28, Anion Gap 12, Blood Urea Nitrogen 38H, Creatinine 10.0H, Estimat Glomerular Filtration Rate 5.0, Glucose Level 70L, Calcium Level 9.5, Phosphorus Level 5.3H, Magnesium Level 1.6L, Total Bilirubin 0.8, Aspartate Amino Transf (AST/SGOT) 16, Alanine Aminotransferase (ALT/SGPT) 10L, Alkaline Phosphatase 187H, Total Protein 7.8, Albumin 3.0L, Globulin 4.8, Albumin/Globulin Ratio 0.6L Height (Feet): 5 Height (Inches): 6.00 Weight (Pounds): 210 General Appearance: no apparent distress Cardiovascular: normal rate Respiratory/Chest: decreased breath sounds Abdomen: soft Objective no change Fouladian,Fredrick MD Apr 23, 2018 12:36
--- NOTE | 2018-04-23 12:50 | NUR ---
NURSE NOTES: MD ROSE HERE TO SEE PT. NO NEW ORDERS.
--- NOTE | 2018-04-23 12:54 | Cardiac Electrophysiology PN ---
Assessment/Plan Assessment/Plan 1. Troponin leak, due to renal failure. Levels low and flat. The patient does not have any chest pain. 2. Septic shock. On Dopamine drip, midodrine 10 mg tid and iv Abx per Dr. Mcbride. Try to taper down again afetr HD 3. Bradycardia. Still on dopamine 20 mcg. Taper down today 4. Anterior T-wave inversion. No chest pain. EF 60% 5. End-stage renal disease, on hemodialysis, per Dr. Conner. 6. Diarrhea C Diff was negative 7. Sputum culture positive for Mold. FU ID DW RN Subjective Subjective On Dopamine drip 20 mcg while getting HD. No other events.Alert in NAD Objective Last 24 Hour Vital Signs Date Time Temp Pulse Resp B/P (MAP) Pulse Ox O2 Delivery O2 Flow Rate FiO2 04/23/18 11:39 Nasal Cannula 4.0 04/23/18 10:00 77 21 128/65 (86) 95 04/23/18 09:30 63 16 140/75 (96) 97 04/23/18 09:25 111/84 04/23/18 09:00 76 17 65/37 (46) 95 04/23/18 08:00 58 04/23/18 08:00 Nasal Cannula 4.0 04/23/18 08:00 77 24 105/54 (71) 100 04/23/18 07:30 61 18 103/43 (63) 99 04/23/18 07:24 96 Nasal Cannula 4.0 36 04/23/18 07:24 Nasal Cannula 4.0 36 04/23/18 07:00 97.9 66 22 103/43 (63) 97 04/23/18 06:00 95/54 04/23/18 06:00 64 18 108/51 (70) 98 04/23/18 05:30 76 18 136/65 (88) 99 04/23/18 05:00 69 19 102/86 (91) 99 04/23/18 05:00 102/86 04/23/18 04:30 61 18 108/43 (64) 96 04/23/18 04:00 97.9 60 18 110/49 (69) 99 04/23/18 04:00 62 04/23/18 04:00 Nasal Cannula 2.0 04/23/18 04:00 113/54 04/23/18 03:30 62 18 109/47 (67) 96 04/23/18 03:00 109/47 04/23/18 03:00 69 18 115/52 (73) 96 04/23/18 02:30 61 18 115/54 (74) 98 04/23/18 02:00 65 20 131/66 (87) 97 04/23/18 02:00 131/66 04/23/18 01:30 67 20 119/57 (77) 97 04/23/18 01:27 135/67 04/23/18 01:00 135/67 04/23/18 01:00 63 21 135/67 (89) 97 04/23/18 00:30 65 21 107/91 (96) 97 04/23/18 00:00 98.3 62 21 128/64 (85) 97 04/23/18 00:00 139/63 04/23/18 00:00 60 04/23/18 00:00 Nasal Cannula 2.0 04/22/18 23:30 62 21 128/64 (85) 97 04/22/18 23:18 61 04/22/18 23:00 81 21 126/63 (84) 97 04/22/18 22:30 65 20 93/77 (82) 96 04/22/18 22:00 73 20 133/61 (85) 96 04/22/18 21:30 82 20 108/60 (76) 97 04/22/18 21:00 61 20 90/30 (50) 96 04/22/18 20:45 65 18 78/25 (42) 94 04/22/18 20:30 Nasal Cannula 4.0 36 04/22/18 20:30 96 Nasal Cannula 4.0 36 04/22/18 20:30 65 20 61/33 (42) 96 04/22/18 20:15 65 17 82/34 (50) 99 04/22/18 20:00 Nasal Cannula 2.0 04/22/18 20:00 63 13 109/51 (70) 99 04/22/18 19:30 98.2 65 13 109/53 (71) 94 04/22/18 19:26 98.1 04/22/18 19:00 61 13 71/53 (59) 94 04/22/18 18:03 95/32 04/22/18 18:00 66 23 89/32 (51) 97 04/22/18 17:58 114/47 04/22/18 17:30 60 17 117/50 (72) 93 04/22/18 17:00 58 17 106/57 (73) 95 04/22/18 16:00 98.1 65 20 108/50 (69) 84 04/22/18 16:00 Nasal Cannula 4.0 04/22/18 16:00 59 04/22/18 15:00 64 18 102/28 (52) 98 04/22/18 14:00 85 24 97/43 (61) 90 04/22/18 13:43 109/57 04/22/18 13:00 62 28 115/63 (80) 96 Intake and Output 04/22/18 04/23/18 19:00 07:00 Intake Total 887.493 ml 480.723 ml Output Total 0 ml 0 ml Balance 887.493 ml 480.723 ml Intake Oral 200 ml IV Total 687.493 ml 480.723 ml Output Urine Total 0 ml 0 ml Laboratory Tests Test 04/23/18 05:10 White Blood Count 7.2 K/UL (4.8-10.8) Red Blood Count 3.39 M/UL (4.20-5.40) L Hemoglobin 10.3 G/DL (12.0-16.0) L Hematocrit 31.5 % (37.0-47.0) L Mean Corpuscular Volume 93 FL (80-99) Mean Corpuscular Hemoglobin 30.4 PG (27.0-31.0) Mean Corpuscular Hemoglobin Concent 32.7 G/DL (32.0-36.0) Red Cell Distribution Width 14.6 % (11.6-14.8) Platelet Count 201 K/UL (150-450) Mean Platelet Volume 8.8 FL (6.5-10.1) Neutrophils (%) (Auto) 76.8 % (45.0-75.0) H Lymphocytes (%) (Auto) 14.5 % (20.0-45.0) L Monocytes (%) (Auto) 7.5 % (1.0-10.0) Eosinophils (%) (Auto) 0.9 % (0.0-3.0) Basophils (%) (Auto) 0.3 % (0.0-2.0) Sodium Level 132 MMOL/L (136-145) L Potassium Level 4.0 MMOL/L (3.5-5.1) Chloride Level 92 MMOL/L (98-107) L Carbon Dioxide Level 28 MMOL/L (21-32) Anion Gap 12 mmol/L (5-15) Blood Urea Nitrogen 38 mg/dL (7-18) H Creatinine 10.0 MG/DL (0.55-1.30) H Estimat Glomerular Filtration Rate 5.0 mL/min (>60) Glucose Level 70 MG/DL (74-106) L Calcium Level 9.5 MG/DL (8.5-10.1) Phosphorus Level 5.3 MG/DL (2.5-4.9) H Magnesium Level 1.6 MG/DL (1.8-2.4) L Total Bilirubin 0.8 MG/DL (0.2-1.0) Aspartate Amino Transf (AST/SGOT) 16 U/L (15-37) Alanine Aminotransferase (ALT/SGPT) 10 U/L (12-78) L Alkaline Phosphatase 187 U/L (46-116) H Total Protein 7.8 G/DL (6.4-8.2) Albumin 3.0 G/DL (3.4-5.0) L Globulin 4.8 g/dL Albumin/Globulin Ratio 0.6 (1.0-2.7) L Microbiology Date/Time Source Procedure Growth Status 04/21/18 04:00 Sputum Expectorated Gram Stain - Final Complete 04/21/18 04:00 Sputum Expectorated Sputum Culture - Final NORMAL UPPER RESPIRATORY ESTEPHANIE AT 47 ... Complete Objective HEAD AND NECK: No JVD. LUNGS: Decreased breath sounds. CARDIOVASCULAR: Kp S1 and S2 no GRM ABDOMEN: Soft. EXTREMITIES: No edema Tc Liang MD Apr 23, 2018 12:54
--- NOTE | 2018-04-23 12:56 | NUR ---
NURSE NOTES: MD HESS HERE TO SEE PT. NO NEW ORDERS.
--- NOTE | 2018-04-23 14:31 | Internal Med Progress Note ---
Subjective Date of Service: Apr 23, 2018 Physician Name Edward Harrell Attending Physician Ash Henley MD Current Medications Medications (Trade) Dose Ordered Sig/Marcos Route PRN Reason Start Time Stop Time Status Last Admin Dose Admin Acetaminophen (Tylenol) 650 mg Q6H PRN ORAL Mild Pain/Temp > 100.5 04/12/18 17:45 05/12/18 17:44 04/21/18 12:44 Alprazolam (Xanax) 0.5 mg Q6H PRN ORAL For Anxiety 04/21/18 07:30 04/28/18 07:29 Aspirin (ASA) 81 mg DAILY ORAL 04/17/18 09:00 05/17/18 08:59 04/23/18 09:25 Bisacodyl (Dulcolax) 5 mg BID ORAL 04/21/18 19:00 05/21/18 18:59 04/23/18 09:25 Chlorhexidine Gluconate (Nivia-Hex 2%) 1 applic DAILY@2000 TOPIC 04/13/18 20:00 05/13/18 19:59 04/22/18 19:31 Dopamine HCl/ Dextrose 250 ml @ 0 mls/hr Q24H IV 04/18/18 02:00 05/18/18 01:59 04/23/18 01:27 Doxycycline Hyclate 100 mg/ Dextrose 100 ml @ 100 mls/hr Q12HR IV 04/16/18 21:00 04/29/18 20:59 04/23/18 09:26 Guaifenesin (Robitussin) 300 mg Q6H PRN ORAL For Cough 04/14/18 17:00 05/14/18 16:59 04/16/18 02:07 Heparin Sodium (Porcine) (Heparin 5000 units/ml) 5,000 units EVERY 12 HOURS SUBQ 04/12/18 21:00 05/12/18 20:59 04/23/18 09:34 Isosorbide Dinitrate (Isordil) 10 mg TID ORAL 04/16/18 18:00 05/16/18 17:59 04/23/18 09:25 Meropenem 500 mg/ Sodium Chloride 50 ml @ 100 mls/hr Q24HRS IVPB 04/21/18 14:00 04/26/18 13:59 04/22/18 13:43 Midodrine (Pro-Amatine) 10 mg Q8HR ORAL 04/19/18 14:00 05/19/18 13:59 04/23/18 05:47 Morphine Sulfate (Morphine Sulfate) 2 mg Q4H PRN IVP Moderate Pain (Pain Scale 4-6) 04/21/18 18:30 04/28/18 18:29 04/22/18 18:47 Morphine Sulfate (Morphine Sulfate) 4 mg Q4H PRN IVP Severe Pain (Pain Scale 7-10) 04/21/18 18:30 04/28/18 18:29 04/23/18 09:16 Ondansetron HCl (Zofran) 4 mg Q4H PRN IVP Nausea & Vomiting 04/12/18 17:45 05/12/18 17:44 04/21/18 22:57 Pantoprazole (Protonix) 40 mg DAILY ORAL 04/24/18 09:00 05/12/18 17:59 Polyethylene Glycol (Miralax) 17 gm BEDTIME ORAL 04/21/18 21:00 05/21/18 20:59 04/22/18 21:43 Sevelamer Carbonate (Renvela) 2,400 mg THREE TIMES A DAY ORAL 04/23/18 13:00 05/13/18 08:59 Voriconazole (Vfend) 200 mg EVERY 12 HOURS ORAL 04/18/18 21:00 04/25/18 20:59 04/23/18 09:25 Allergies: Coded Allergies: CEFAZOLIN (Verified Allergy, Unknown, 10/02/10) CIPROFLOXACIN (Verified Allergy, Unknown, 10/02/10) GENTAMICIN (Verified Allergy, Unknown, 10/02/10) KETAMINE (Verified Allergy, Unknown, 03/29/18) LEVOFLOXACIN (Verified Allergy, Unknown, 10/02/10) PENICILLINS (Verified Allergy, Unknown, ITCH, 10/02/10) Uncoded Allergies: CONTRAST MEDIA (Adverse Reaction, Mild, MILD ITCHING AFTER CONTRAST MEDIA, 04/30/17) ROS Limited/Unobtainable: No Constitutional: Reports: no symptoms HEENT: Reports: no symptoms Cardiovascular: Reports: no symptoms Respiratory: Reports: no symptoms Gastrointestinal/Abdominal: Reports: no symptoms Genitourinary: Reports: no symptoms Neurologic/Psychiatric: Reports: no symptoms Subjective 53 YO F admitted with shortness of breath. Now pneumonia. Cover for Int Med- Dr Henley. ICU. Continues on dopamine. Abdominal pain improved Objective Last Vital Signs Date Time Temp Pulse Resp B/P (MAP) Pulse Ox O2 Delivery O2 Flow Rate FiO2 04/23/18 13:00 86 17 110/49 (69) 98 04/23/18 12:00 99.0 04/23/18 12:00 Nasal Cannula 4.0 04/23/18 07:24 36 Laboratory Tests Test 04/23/18 05:10 White Blood Count 7.2 K/UL (4.8-10.8) Red Blood Count 3.39 M/UL (4.20-5.40) L Hemoglobin 10.3 G/DL (12.0-16.0) L Hematocrit 31.5 % (37.0-47.0) L Mean Corpuscular Volume 93 FL (80-99) Mean Corpuscular Hemoglobin 30.4 PG (27.0-31.0) Mean Corpuscular Hemoglobin Concent 32.7 G/DL (32.0-36.0) Red Cell Distribution Width 14.6 % (11.6-14.8) Platelet Count 201 K/UL (150-450) Mean Platelet Volume 8.8 FL (6.5-10.1) Neutrophils (%) (Auto) 76.8 % (45.0-75.0) H Lymphocytes (%) (Auto) 14.5 % (20.0-45.0) L Monocytes (%) (Auto) 7.5 % (1.0-10.0) Eosinophils (%) (Auto) 0.9 % (0.0-3.0) Basophils (%) (Auto) 0.3 % (0.0-2.0) Sodium Level 132 MMOL/L (136-145) L Potassium Level 4.0 MMOL/L (3.5-5.1) Chloride Level 92 MMOL/L (98-107) L Carbon Dioxide Level 28 MMOL/L (21-32) Anion Gap 12 mmol/L (5-15) Blood Urea Nitrogen 38 mg/dL (7-18) H Creatinine 10.0 MG/DL (0.55-1.30) H Estimat Glomerular Filtration Rate 5.0 mL/min (>60) Glucose Level 70 MG/DL (74-106) L Calcium Level 9.5 MG/DL (8.5-10.1) Phosphorus Level 5.3 MG/DL (2.5-4.9) H Magnesium Level 1.6 MG/DL (1.8-2.4) L Total Bilirubin 0.8 MG/DL (0.2-1.0) Aspartate Amino Transf (AST/SGOT) 16 U/L (15-37) Alanine Aminotransferase (ALT/SGPT) 10 U/L (12-78) L Alkaline Phosphatase 187 U/L (46-116) H Total Protein 7.8 G/DL (6.4-8.2) Albumin 3.0 G/DL (3.4-5.0) L Globulin 4.8 g/dL Albumin/Globulin Ratio 0.6 (1.0-2.7) L Microbiology Date/Time Source Procedure Growth Status 04/21/18 04:00 Sputum Expectorated Gram Stain - Final Complete 04/21/18 04:00 Sputum Expectorated Sputum Culture - Final NORMAL UPPER RESPIRATORY ESTEPHANIE AT 48 ... Complete Intake and Output 04/22/18 04/23/18 19:00 07:00 Intake Total 887.493 ml 480.723 ml Output Total 0 ml 0 ml Balance 887.493 ml 480.723 ml Intake Oral 200 ml IV Total 687.493 ml 480.723 ml Output Urine Total 0 ml 0 ml Objective Objective GENERAL: Awake, responsive, alert HEAD AND NECK: Pupils equal and reactive to light. Extraocular movements intact. Neck was supple. No JVD. LUNGS: Fair air entry. Poor respiratory effort. No wheeze or rhonchi. Decreased air in the bases. HEART: S1 and S2. Distant heart sounds. No murmur. ABDOMEN: Soft, nondistended, and nontender. Morbidly obese. EXTREMITIES: No cyanosis, clubbing, or edema. Right femoral area PermCath as well as left upper extremity AV fistula, functional. NEUROLOGIC: Cranial nerves II through XII are grossly intact. The patient is moving all the extremities spontaneously. Gait was not assessed due to the patient's status. PSYCHIATRIC: Mood and affect are intact. Assessment/Plan Assessment/Plan Assessment/Plan Assessment/Plan 1. Sepsis, most likely secondary to left upper lobe and, to a lesser extent, medial right lower lobe most likely representing multifocal pneumonia. 2. Hypotension, possible septic shock. 3. Pancytopenia with severe thrombocytopenia resolving. 4. End-stage renal disease, on hemodialysis. 5. Altered mental status, most likely toxic metabolic encephalopathy as a result of infection as well as uremia. 6. Anemia of chronic kidney disease. 7. Morbid obesity. 8. Bradycardia. 9. Diarrhea 10. Abdominal pain. PLAN: In ICU. follow up laboratory and cultures. Dr. Fredrick Conner from Nephrology consult; next hemodialysis 04/20/18. Dr. Mcbride from ID consult. Discussed with the family member, brother at the bedside. Abx: Vancomycin, Meropenem, Azithromycin Code status is Full Code. DVT prophylaxis: heparin subcutaneous. continue Dopamine Drip CT of chest noted. Cortisol level Pending. C. Diff neg. Send stool for repeat Continue dopamine See GI consult; KUB=no obstruction advance diet Edward Harrell MD Apr 23, 2018 14:31
--- NOTE | 2018-04-23 15:00 | NUR ---
NURSE NOTES: Patient asleep. Vital sign stable. Dopamine titrated accordingly
--- NOTE | 2018-04-23 15:49 | Diagnostic Imaging Report ---
Indication: Abdominal pain Comparison: None Single view of the abdomen obtained Findings: Bowel gas pattern is nonspecific. No mass, ectopic calcifications, or abnormal gas collections are identified. The bones are unremarkable. There is a IVC permacath noted. The tip is projected over the right atrium. There is a left iliac region vascular stent. Surgical clips noted in the left hemipelvis. Impression: No acute findings
--- NOTE | 2018-04-23 15:52 | Diagnostic Imaging Report ---
INDICATION: Dyspnea COMPARISON: Chest x-ray dated 04/19/18 FINDINGS: Single frontal view demonstrates a normal cardiomediastinal silhouette. Surgical clips in the neck base. Status post left axillary dissection. Central venous catheter terminating in the right atrium, may be extending from a femoral approach, grossly unchanged. Stable patchy opacity in the left mid lung zone. Increasing patchy opacity in bilateral lower lung zones, right greater the left. The visualized osseous structures are within normal limits. IMPRESSION: 1. Stable patchy opacity in the left mid lung zone. Increasing patchy opacity in bilateral lower lung zones, right greater the left. 2. Stable lines and postoperative findings as outlined above.
--- NOTE | 2018-04-23 17:39 | NUR ---
NURSE NOTES: pt c/o of nausea refusing pm medications, refusing zofran d/t increased constipation risk. education on medication use and S.E. family at bedside. dopamine @ 14mch/kg/min. vss.
--- NOTE | 2018-04-23 19:15 | NUR ---
HAND-OFF: Report given to TONYA. pt in no acute distress.
--- NOTE | 2018-04-23 19:16 | NUR ---
NURSE NOTES: Endorsement received from WILLI Conway. Patient awake, alert and oriented x4. On 4 LPM oxygen per nasal cannula. No shortness of breath. No complains of pain at this time. With permacath at right femoral. Ongoing Dopamine single conc 14mcg/kg/min. Head of bed elevated. Call light within reach. Bed locked and in low position, bed alarm on.
[2018-04-23] MEDS: Dyna-Hex 2% Top Sol 2oz TOPIC SCH (19:45)
--- NOTE | 2018-04-23 21:15 | NUR ---
NURSE NOTES: Patient refused her oral medications at this time. Will offer again later.
[2018-04-23] MEDS: Miralax 17gm pkt ORAL SCH (21:59)
--- NOTE | 2018-04-23 22:00 | NUR ---
NURSE NOTES: Offered patient her oral medications, patient consumed her medications
[2018-04-24] VITALS (59 sets, daily range): BP systolic 69–143; BP diastolic 25–100
--- NOTE | 2018-04-24 | NUR ---
NURSE NOTES: Patient asleep. No signs of pain or discomfort
--- NOTE | 2018-04-24 02:00 | NUR ---
NURSE NOTES: Dopamine at 14mcg/kg/hr. Attempted to titrate at 12mcg/kg/hr, BP high 70s. Increased back to 14
--- NOTE | 2018-04-24 04:00 | NUR ---
NURSE NOTES: Patient refused morning care at this time.
[2018-04-24] MEDS: DOPamine 400mg/250ml 250 ML IV SCH ×4 (05:41→21:53)
[2018-04-24 05:43] LABS: BASOPHILS % (AUTO) 0.3 % (0.0-2.0); EOSINOPHILS % (AUTO) 0.9 % (0.0-3.0); HEMATOCRIT 30.1 % (37.0-47.0); HEMOGLOBIN 9.8 G/DL (12.0-16.0); LYMPHOCYTES % (AUTO) 19.1 % (20.0-45.0); MEAN CORPUSCULAR VOLUME 92 FL (80-99); MONOCYTES % (AUTO) 8.4 % (1.0-10.0); NEUTROPHILS % (AUTO) 71.3 % (45.0-75.0); PLATELET COUNT 178 K/UL (150-450); RED BLOOD COUNT 3.27 M/UL (4.20-5.40); RED CELL DISTRIBUTION WIDTH 14.5 % (11.6-14.8); WHITE BLOOD COUNT 6.5 K/UL (4.8-10.8)
--- NOTE | 2018-04-24 05:46 | NUR ---
NURSE NOTES: Patient reported "not able to breathe" and stated "something is wrong with me". Saturation is 99% on 4LPM oxygen, respiratory rate 16. Patient requested to fully open the door of her room, and breathing treatment. Patient has no PRN breathing treatment. Offered Robitussin PRN as patient is occasionally coughing, she refused. Patient also refused to have her blood sugar checked. Assisted to sit up on her bed. Requested CPT c/o RT. RT informed. Patient reported nausea, coughed out small amount of saliva, clear light greenish in color. PRN Zofran given. Reassured patient, talk therapy done. Addendum: 04/24/18 at 0558 by PRIYANKA WADDELL RN NURSE NOTES: Addendum: Patient also refused to have her blood sugar checked, she stated she's not diabetic. Informed her that her blood sugar to be checked as it was low in the BMP yesterday and might be the reason why she feels that "something's wrong with her". Patient still refused.
[2018-04-24 05:47] LABS: INR 1.2 (0.9-1.1)
[2018-04-24 05:51] LABS: % IRON SATURATION 26 % (15-50); IRON 48 ug/dL (50-175); TOTAL IRON BINDING CAPACITY 188 ug/dL (250-450)
[2018-04-24] MEDS: Midodrine 10mg tab ORAL SCH ×3 (05:59→21:53)
[2018-04-24 06:12] LABS: ALANINE AMINOTRANSFERASE 12 U/L (12-78); ALBUMIN 2.8 G/DL (3.4-5.0); ALBUMIN/GLOBULIN RATIO 0.6 (1.0-2.7); ALKALINE PHOSPHATASE 173 U/L (46-116); ANION GAP 13 mmol/L (5-15); ASPARTATE AMINO TRANSFERASE 17 U/L (15-37); BILIRUBIN,TOTAL 0.7 MG/DL (0.2-1.0); BLOOD UREA NITROGEN 28 mg/dL (7-18); CALCIUM 9.5 MG/DL (8.5-10.1); CARBON DIOXIDE 29 MMOL/L (21-32); CHLORIDE 93 MMOL/L (98-107); CREATININE 8.1 MG/DL (0.55-1.30); PHOSPHORUS 4.5 MG/DL (2.5-4.9); POTASSIUM 3.8 MMOL/L (3.5-5.1); SODIUM 135 MMOL/L (136-145)
--- NOTE | 2018-04-24 06:30 | NUR ---
NURSE NOTES: Patient states that he feels better. Bed bath, change of linens done.
--- NOTE | 2018-04-24 07:12 | General Progress Note ---
Assessment/Plan Problem List: (1) Pneumonia ICD Codes: J18.9 - Pneumonia, unspecified organism SNOMED: 856127280 Qualifiers: Qualified Codes: J18.1 - Lobar pneumonia, unspecified organism (2) ESRD (end stage renal disease) on dialysis ICD Codes: N18.6 - End stage renal disease; Z99.2 - Dependence on renal dialysis SNOMED: 142533968 (3) HTN (hypertension) ICD Codes: I10 - Essential (primary) hypertension SNOMED: 59716828 (4) Anemia of renal disease ICD Codes: D63.1 - Anemia in chronic kidney disease SNOMED: 845726757, 489155047 Assessment/Plan anemia work up on renal diet protonix daily fu labs bowel regimen' stool ob Subjective ROS Limited/Unobtainable: Yes Allergies: Coded Allergies: CEFAZOLIN (Verified Allergy, Unknown, 10/02/10) CIPROFLOXACIN (Verified Allergy, Unknown, 10/02/10) GENTAMICIN (Verified Allergy, Unknown, 10/02/10) KETAMINE (Verified Allergy, Unknown, 03/29/18) LEVOFLOXACIN (Verified Allergy, Unknown, 10/02/10) PENICILLINS (Verified Allergy, Unknown, ITCH, 10/02/10) Uncoded Allergies: CONTRAST MEDIA (Adverse Reaction, Mild, MILD ITCHING AFTER CONTRAST MEDIA, 04/30/17) Subjective nausea and vomiting x1 Objective Last 24 Hour Vital Signs Date Time Temp Pulse Resp B/P (MAP) Pulse Ox O2 Delivery O2 Flow Rate FiO2 04/24/18 06:00 75 16 83/43 (56) 93 04/24/18 06:00 83/43 04/24/18 05:45 72 10 126/58 (80) 100 04/24/18 05:41 115/70 04/24/18 05:30 77 16 115/100 (105) 99 04/24/18 05:15 80 18 73/44 (54) 100 04/24/18 05:00 95 25 69/32 (44) 96 04/24/18 05:00 88/47 04/24/18 04:45 80 16 92/41 (58) 96 04/24/18 04:30 73 20 101/46 (64) 96 04/24/18 04:15 79 17 95/38 (57) 91 04/24/18 04:00 79 04/24/18 04:00 97.7 76 15 84/35 (51) 91 04/24/18 04:00 95/38 04/24/18 04:00 Nasal Cannula 4.0 04/24/18 03:45 77 16 91/47 (62) 92 04/24/18 03:30 72 15 99/46 (63) 95 04/24/18 03:15 83 18 89/46 (60) 90 04/24/18 03:00 75 16 99/43 (61) 93 04/24/18 03:00 89/46 04/24/18 02:45 73 15 78/61 (67) 95 04/24/18 02:30 71 18 102/49 (66) 92 04/24/18 02:15 79 18 98/40 (59) 92 04/24/18 02:00 98/40 04/24/18 02:00 68 17 100/44 (62) 97 04/24/18 01:45 72 13 103/55 (71) 99 04/24/18 01:30 70 20 102/46 (64) 98 04/24/18 01:15 67 15 107/43 (64) 98 04/24/18 01:00 95 19 86/47 (60) 95 04/24/18 01:00 107/43 04/24/18 00:45 93 23 71/48 (56) 90 04/24/18 00:30 74 16 89/69 (76) 87 04/24/18 00:15 76 19 99/45 (63) 93 04/24/18 00:00 72 04/24/18 00:00 89/69 04/24/18 00:00 98.1 76 20 99/45 (63) 97 04/24/18 00:00 Nasal Cannula 4.0 04/23/18 23:57 108/49 04/23/18 23:45 71 17 108/49 (68) 95 04/23/18 23:30 70 18 111/51 (71) 95 04/23/18 23:15 69 18 110/52 (71) 98 04/23/18 23:00 85 18 92/46 (61) 92 04/23/18 22:45 74 16 65/47 (53) 96 04/23/18 22:30 68 17 106/45 (65) 97 04/23/18 22:26 98.7 04/23/18 22:15 68 17 106/53 (70) 97 04/23/18 22:00 93/51 04/23/18 22:00 80 19 107/53 (71) 97 04/23/18 21:45 76 20 103/46 (65) 95 04/23/18 21:30 83 19 89/47 (61) 98 04/23/18 21:15 64 19 114/47 (69) 97 04/23/18 21:00 71 18 44/28 (33) 95 04/23/18 21:00 99/55 04/23/18 20:45 83 19 86/29 (48) 94 04/23/18 20:30 69 20 98/49 (65) 98 04/23/18 20:15 77 24 91/38 (55) 97 04/23/18 20:00 88 04/23/18 20:00 Nasal Cannula 4.0 04/23/18 20:00 106/59 04/23/18 20:00 98.0 88 22 91/46 (61) 95 04/23/18 19:45 70 20 99/37 (57) 98 04/23/18 19:35 Nasal Cannula 3.0 32 04/23/18 19:34 98 Nasal Cannula 3.0 32 04/23/18 19:30 83 21 95/49 (64) 98 04/23/18 19:15 79 21 98/36 (56) 100 04/23/18 19:00 82 19 88/62 (71) 98 04/23/18 18:57 83/44 04/23/18 18:30 84 20 98/49 (65) 96 04/23/18 18:30 77/57 04/23/18 18:00 90 18 89/47 (61) 94 04/23/18 17:30 93 22 107/51 (69) 89 04/23/18 17:00 92 21 100/57 (71) 95 04/23/18 16:00 115 04/23/18 16:00 Nasal Cannula 4.0 04/23/18 16:00 99.0 92 17 61/47 (52) 93 04/23/18 15:30 102 21 88/49 (62) 92 04/23/18 15:00 101 21 94/42 (59) 93 04/23/18 14:34 120/71 1/5/19 14:34 120/71 04/23/18 14:30 106 20 120/71 (87) 100 04/23/18 14:00 81 21 119/65 (83) 98 04/23/18 13:00 86 17 110/49 (69) 98 04/23/18 12:30 81 17 85/28 (47) 96 04/23/18 12:00 99.0 86 18 111/84 (93) 96 04/23/18 12:00 Nasal Cannula 4.0 04/23/18 12:00 74 04/23/18 11:39 Nasal Cannula 4.0 04/23/18 11:30 73 21 120/56 (77) 95 04/23/18 11:00 90 20 81/36 (51) 94 04/23/18 10:00 77 21 128/65 (86) 95 04/23/18 09:30 63 16 140/75 (96) 97 04/23/18 09:25 111/84 04/23/18 09:00 76 17 65/37 (46) 95 04/23/18 08:00 58 04/23/18 08:00 Nasal Cannula 4.0 04/23/18 08:00 77 24 105/54 (71) 100 04/23/18 07:30 61 18 103/43 (63) 99 04/23/18 07:24 96 Nasal Cannula 4.0 36 04/23/18 07:24 Nasal Cannula 4.0 36 Intake and Output 04/23/18 04/24/18 19:00 07:00 Intake Total 694.369 ml 623.950 ml Output Total 2000 ml 0 ml Balance -1305.631 ml 623.950 ml Intake Oral 210 ml 50 ml IV Total 484.369 ml 573.950 ml Output Urine Total 0 ml 0 ml Hemodialysis UF 2000 ml Laboratory Tests 04/24/18 04:49: White Blood Count 6.5, Red Blood Count 3.27L, Hemoglobin 9.8L, Hematocrit 30.1L , Mean Corpuscular Volume 92, Mean Corpuscular Hemoglobin 29.8, Mean Corpuscular Hemoglobin Concent 32.4, Red Cell Distribution Width 14.5, Platelet Count 178, Mean Platelet Volume 9.0, Neutrophils (%) (Auto) 71.3, Lymphocytes (% ) (Auto) 19.1L, Monocytes (%) (Auto) 8.4, Eosinophils (%) (Auto) 0.9, Basophils (%) (Auto) 0.3, Prothrombin Time 12.2H, Prothromb Time International Ratio 1.2H , Activated Partial Thromboplast Time 35H, Sodium Level 135L, Potassium Level 3.8, Chloride Level 93L, Carbon Dioxide Level 29, Anion Gap 13, Blood Urea Nitrogen 28H, Creatinine 8.1H, Estimat Glomerular Filtration Rate 6.3, Glucose Level 91, Calcium Level 9.5, Phosphorus Level 4.5, Magnesium Level 1.6L, Iron Level 48L, Total Iron Binding Capacity 188L, Percent Iron Saturation 26, Unsaturated Iron Binding 140, Total Bilirubin 0.7, Aspartate Amino Transf (AST/ SGOT) 17, Alanine Aminotransferase (ALT/SGPT) 12, Alkaline Phosphatase 173H, Total Protein 7.5, Albumin 2.8L, Globulin 4.7, Albumin/Globulin Ratio 0.6L, Carcinoembryonic Antigen [Pending] Height (Feet): 5 Height (Inches): 6.00 Weight (Pounds): 206 General Appearance: no apparent distress EENT: normal ENT inspection Neck: supple Cardiovascular: normal rate Respiratory/Chest: decreased breath sounds Abdomen: normal bowel sounds, non tender, soft Extremities: non-tender Ryley Diaz MD Apr 24, 2018 07:12
--- NOTE | 2018-04-24 07:16 | NUR ---
NURSE NOTES: Patient seen and examined by Dr. Diaz, updated him of patient's current status. Still no BM since 04/18 and with episodes of nausea and vomiting of light clear greenish small amount of vomitus
--- NOTE | 2018-04-24 07:17 | NUR ---
HAND-OFF: Report given to WILLI Conway.
--- NOTE | 2018-04-24 07:22 | NUR ---
NURSE NOTES: Received report from WILLI Rivas. Patient resting in bed, opens eyes spontaneously and to voice. AA/OX4, able to make needs known. More drowsy this am. 2 L NC, 02sat 98%. Abdomen round, non tender, bowel sounds present. No BM this shift. Anuric. Skin intact. IV access RT femoral PermaCath, running Dopamine @14mcg/kg/min. Fall precautions in place. HOB>30. Call light in reach. Bed locked and in low position, bed alarm on. Education on medication S.E and plan of care for today.
[2018-04-24] MEDS: Bisacodyl EC 5mg tab ORAL SCH ×2 (08:53→17:54)
[2018-04-24] MEDS: Aspirin Baby 81mg ORAL SCH (08:54)
[2018-04-24] MEDS: Lactulose 10gm/15ml UDC ORAL SCH ×3 (08:55→17:54)
[2018-04-24] MEDS: Heparin 5000 units/ml inj SUBQ SCH ×2 (09:02→21:22)
--- NOTE | 2018-04-24 10:00 | NUR ---
NURSE NOTES: pt assisted by another nurse to bedside commode no bm at this time. pt back in bed without incident. bed lock and in low position. call light in reach and bed alarm on.
--- NOTE | 2018-04-24 10:57 | NUR ---
NURSE NOTES: BP 62/50, DOPAMINE INCREASED FROM 18 TO 20 MCG/KG/MIN. WILL CONTINUE TO MONITOR.
--- NOTE | 2018-04-24 11:01 | NUR ---
NURSE NOTES: Pt had vomiting x2 yellowish-green liquid. Zofran administered per policy. Dopamine increased to 20mcg/kg/hr D/T. drop in BP 66/42. will continue to monitor pt
[2018-04-24] MEDS ORDERED: NS 275ml ONE (11:23)
--- NOTE | 2018-04-24 12:16 | Infectious Diseases Prog Note ---
Assessment/Plan Assessment/Plan ASSESSMENT: 1. sepsis, shock, pneumonia, CT chest noted, pressors, bradycardia, sputum culture with mold, ? aspergillus pna, ? other source for shock, abdominal pain, n/v - continue meropenem, doxycycline and voriconazole (mold on sputum culture) - still requiring pressors - will recheck blood cultures, ? line infection, ? other shock source, ? adrenal insufficiency - hearing better off vancomycin - monitor labs and chest x-ray - mycoplasma IGM is negative, cannot obtain legionella urine antigen secondary to no urine output (HD) - icu care, remains on pressors, no vent - ? ct abdomen - defer to GI - d/w RN 2. End-stage renal disease, hemodialysis, has a right femoral line hemodialysis line and also left arm graft. 3. History of fistula in the past. 4. History of PermCath in the past 5. Anemia of chronic disease. 6. Hypertension - Blood pressure treatment per primary. 7. No history of diabetes mentioned. 8. Chronic kidney disease. 9. Obesity. 10. History of cholecystectomy. 11. History of parathyroidectomy. 12. History of carpal tunnel syndrome. 13. History of fractures, ORIF. 14. Past medical history noted. 15. Multiple drug allergies including cefazolin, Cipro, contrast media, gentamicin, ketamine, Levaquin and penicillin, she seems to tolerate carbapenems. 16. Social history is negative . 17. Family history is noncontributory. 18. MAR was noted. 19. Case discussed with RN. 20. Continue treatment per primary consultants. 21. Notes were noted and orders were entered. Subjective Constitutional: Reports: fatigue, other - + pressors ; Denies: fever HEENT: Denies: congestion Respiratory: Denies: shortness of breath Cardiovascular: Denies: chest pain Gastrointestinal/Abdominal: Reports: nausea, vomiting, other - + abdominal pain ; Denies: diarrhea Genitourinary: Reports: other - no mckinney Neurologic: Denies: headache Psychiatric: Denies: depression Skin: Denies: rash Hematologic: Denies: bleeding Musculoskeletal: Reports: pain - abdomen Allergies: Coded Allergies: CEFAZOLIN (Verified Allergy, Unknown, 10/02/10) CIPROFLOXACIN (Verified Allergy, Unknown, 10/02/10) GENTAMICIN (Verified Allergy, Unknown, 10/02/10) KETAMINE (Verified Allergy, Unknown, 03/29/18) LEVOFLOXACIN (Verified Allergy, Unknown, 10/02/10) PENICILLINS (Verified Allergy, Unknown, ITCH, 10/02/10) Uncoded Allergies: CONTRAST MEDIA (Adverse Reaction, Mild, MILD ITCHING AFTER CONTRAST MEDIA, 04/30/17) Objective Vital Signs Last 24 Hour Vital Signs Date Time Temp Pulse Resp B/P (MAP) Pulse Ox O2 Delivery O2 Flow Rate FiO2 04/24/18 10:57 62/50 04/24/18 08:53 111/47 04/24/18 08:00 97.6 71 16 118/67 (84) 98 04/24/18 08:00 Nasal Cannula 4.0 04/24/18 08:00 71 04/24/18 07:30 68 16 77/54 (62) 99 04/24/18 07:00 72 20 114/60 (78) 100 04/24/18 06:45 97 Nasal Cannula 4.0 36 04/24/18 06:45 Nasal Cannula 4.0 36 04/24/18 06:00 75 16 83/43 (56) 93 04/24/18 06:00 83/43 04/24/18 05:45 72 10 126/58 (80) 100 04/24/18 05:41 115/70 04/24/18 05:30 77 16 115/100 (105) 99 04/24/18 05:15 80 18 73/44 (54) 100 04/24/18 05:00 95 25 69/32 (44) 96 04/24/18 05:00 88/47 04/24/18 04:45 80 16 92/41 (58) 96 04/24/18 04:30 73 20 101/46 (64) 96 04/24/18 04:15 79 17 95/38 (57) 91 04/24/18 04:00 79 04/24/18 04:00 97.7 76 15 84/35 (51) 91 04/24/18 04:00 95/38 04/24/18 04:00 Nasal Cannula 4.0 04/24/18 03:45 77 16 91/47 (62) 92 04/24/18 03:30 72 15 99/46 (63) 95 04/24/18 03:15 83 18 89/46 (60) 90 04/24/18 03:00 75 16 99/43 (61) 93 04/24/18 03:00 89/46 04/24/18 02:45 73 15 78/61 (67) 95 04/24/18 02:30 71 18 102/49 (66) 92 04/24/18 02:15 79 18 98/40 (59) 92 04/24/18 02:00 98/40 04/24/18 02:00 68 17 100/44 (62) 97 04/24/18 01:45 72 13 103/55 (71) 99 04/24/18 01:30 70 20 102/46 (64) 98 04/24/18 01:15 67 15 107/43 (64) 98 04/24/18 01:00 95 19 86/47 (60) 95 04/24/18 01:00 107/43 04/24/18 00:45 93 23 71/48 (56) 90 04/24/18 00:30 74 16 89/69 (76) 87 04/24/18 00:15 76 19 99/45 (63) 93 04/24/18 00:00 72 04/24/18 00:00 89/69 04/24/18 00:00 98.1 76 20 99/45 (63) 97 04/24/18 00:00 Nasal Cannula 4.0 04/23/18 23:57 108/49 04/23/18 23:45 71 17 108/49 (68) 95 04/23/18 23:30 70 18 111/51 (71) 95 04/23/18 23:15 69 18 110/52 (71) 98 04/23/18 23:00 85 18 92/46 (61) 92 04/23/18 22:45 74 16 65/47 (53) 96 04/23/18 22:30 68 17 106/45 (65) 97 04/23/18 22:26 98.7 04/23/18 22:15 68 17 106/53 (70) 97 04/23/18 22:00 93/51 04/23/18 22:00 80 19 107/53 (71) 97 04/23/18 21:45 76 20 103/46 (65) 95 04/23/18 21:30 83 19 89/47 (61) 98 04/23/18 21:15 64 19 114/47 (69) 97 04/23/18 21:00 71 18 44/28 (33) 95 04/23/18 21:00 99/55 04/23/18 20:45 83 19 86/29 (48) 94 04/23/18 20:30 69 20 98/49 (65) 98 04/23/18 20:15 77 24 91/38 (55) 97 04/23/18 20:00 88 04/23/18 20:00 Nasal Cannula 4.0 04/23/18 20:00 106/59 04/23/18 20:00 98.0 88 22 91/46 (61) 95 04/23/18 19:45 70 20 99/37 (57) 98 04/23/18 19:35 Nasal Cannula 3.0 32 04/23/18 19:34 98 Nasal Cannula 3.0 32 04/23/18 19:30 83 21 95/49 (64) 98 04/23/18 19:15 79 21 98/36 (56) 100 04/23/18 19:00 82 19 88/62 (71) 98 04/23/18 18:57 83/44 04/23/18 18:30 84 20 98/49 (65) 96 04/23/18 18:30 77/57 04/23/18 18:00 90 18 89/47 (61) 94 04/23/18 17:30 93 22 107/51 (69) 89 04/23/18 17:00 92 21 100/57 (71) 95 04/23/18 16:00 115 04/23/18 16:00 Nasal Cannula 4.0 04/23/18 16:00 99.0 92 17 61/47 (52) 93 04/23/18 15:30 102 21 88/49 (62) 92 04/23/18 15:00 101 21 94/42 (59) 93 04/23/18 14:34 120/71 04/23/18 14:34 120/71 04/23/18 14:30 106 20 120/71 (87) 100 04/23/18 14:00 81 21 119/65 (83) 98 04/23/18 13:00 86 17 110/49 (69) 98 04/23/18 12:30 81 17 85/28 (47) 96 Height (Feet): 5 Height (Inches): 6.00 Weight (Pounds): 206 General Appearance: no acute distress HEENT: normocephalic, atraumatic, anicteric, mucous membranes moist Respiratory/Chest: crackles/rales, rhonchi - bilaterally Cardiovascular: normal rate, regular rhythm, no gallop/murmur, no JVD Abdomen: normal bowel sounds, no organomegaly, non distended, other - soft but some tenderness Genitourinary: other - no mckinney Extremities: no cyanosis Skin: no rash 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 Follow-up after appropriate treatment recommended to ensure resolution. * Patchy opacities in the right upper lobe are also likely infectious in etiology. These obscure the previously described lung nodule. Attention to this area on follow-up recommended. * Prominent hilar and mediastinal lymph nodes, possibly reactive in etiology. * Small bilateral pleural effusions. * Large hiatal hernia * Dialysis catheter tip in the right atrium. Evidence of central venous occlusion with multiple collateral veins noted in the mediastinum. * Nonspecific calcifications in the bilateral breasts are correlation with most recent mammogram recommended. If none performed recently, then recommend follow- up screening mammogram. * Findings suggestive of renal osteodystrophy Chest x-ray - 04/14 - Findings: Heart size and mediastinal contours stable. Femoral approach dialysis catheter is again noted. Multiple surgical clips noted in the bilateral axilla. Portions of a stents again visualized in the right axilla. Multiple surgical clips noted in the right arm. City Surveyor opacities in the left midlung peripherally. No evidence of pneumothorax. There is patchy opacity at the right base. Osseous structures stable. Calcifications in the right breast noted. Impression: Left-sided airspace opacities most concerning for pneumonia. There is slight interval increased density compared to prior exam which may be technical. 04/16/18 - chest x-ray - IMPRESSION: 1. Bilateral airspace opacities, most confluent in the left midlung field. Could be from consolidation/pneumonia. There is a broad differential. Follow to ensure resolution and exclude other mimics. 2. Suspect bilateral pleural effusions. 3. Vascular congestion. 1/2/19: Comparison: 04/16/2018 A single view chest radiograph was obtained. Findings: Interstitial edema again suspected mild in degree, slightly improved from the prior study. Heart size is stable. Large bore catheter projected over the right atrium entering from the IVC. Pleural-based density lateral aspect of the left lung again noted. Extensive surgical clips in the thoracic inlet and left axillary region noted. IMPRESSION: Some improvement in the initial edema. Other findings stable Microbiology Date/Time Source Procedure Growth Status 04/12/18 11:35 Blood Blood Culture - Final NO GROWTH AFTER 5 DAYS Complete 04/21/18 04:00 Sputum Expectorated Gram Stain - Final Complete 04/21/18 04:00 Sputum Expectorated Sputum Culture - Final NORMAL UPPER RESPIRATORY ESTEPHANIE AT 48 ... Complete 04/19/18 02:00 Stool Stool Culture - Final NO SALMONELLA,SHIGELLA OR CAMPYLOBACT... Complete 04/12/18 12:10 Rectum - Final NO CARBAPENEM-RESISTANT ENTEROBACTERI... Complete Laboratory Tests Test 04/24/18 04:49 White Blood Count 6.5 K/UL (4.8-10.8) Red Blood Count 3.27 M/UL (4.20-5.40) L Hemoglobin 9.8 G/DL (12.0-16.0) L Hematocrit 30.1 % (37.0-47.0) L Mean Corpuscular Volume 92 FL (80-99) Mean Corpuscular Hemoglobin 29.8 PG (27.0-31.0) Mean Corpuscular Hemoglobin Concent 32.4 G/DL (32.0-36.0) Red Cell Distribution Width 14.5 % (11.6-14.8) Platelet Count 178 K/UL (150-450) Mean Platelet Volume 9.0 FL (6.5-10.1) Neutrophils (%) (Auto) 71.3 % (45.0-75.0) Lymphocytes (%) (Auto) 19.1 % (20.0-45.0) L Monocytes (%) (Auto) 8.4 % (1.0-10.0) Eosinophils (%) (Auto) 0.9 % (0.0-3.0) Basophils (%) (Auto) 0.3 % (0.0-2.0) Prothrombin Time 12.2 SEC (9.30-11.50) H Prothromb Time International Ratio 1.2 (0.9-1.1) H Activated Partial Thromboplast Time 35 SEC (23-33) H Sodium Level 135 MMOL/L (136-145) L Potassium Level 3.8 MMOL/L (3.5-5.1) Chloride Level 93 MMOL/L (98-107) L Carbon Dioxide Level 29 MMOL/L (21-32) Anion Gap 13 mmol/L (5-15) Blood Urea Nitrogen 28 mg/dL (7-18) H Creatinine 8.1 MG/DL (0.55-1.30) H Estimat Glomerular Filtration Rate 6.3 mL/min (>60) Glucose Level 91 MG/DL (74-106) Calcium Level 9.5 MG/DL (8.5-10.1) Phosphorus Level 4.5 MG/DL (2.5-4.9) Magnesium Level 1.6 MG/DL (1.8-2.4) L Iron Level 48 ug/dL (50-175) L Total Iron Binding Capacity 188 ug/dL (250-450) L Percent Iron Saturation 26 % (15-50) Unsaturated Iron Binding 140 ug/dL (112-346) Total Bilirubin 0.7 MG/DL (0.2-1.0) Aspartate Amino Transf (AST/SGOT) 17 U/L (15-37) Alanine Aminotransferase (ALT/SGPT) 12 U/L (12-78) Alkaline Phosphatase 173 U/L (46-116) H Total Protein 7.5 G/DL (6.4-8.2) Albumin 2.8 G/DL (3.4-5.0) L Globulin 4.7 g/dL Albumin/Globulin Ratio 0.6 (1.0-2.7) L Carcinoembryonic Antigen Pending Current Medications Medications (Trade) Dose Ordered Sig/Marcos Route PRN Reason Start Time Stop Time Status Last Admin Dose Admin Acetaminophen (Tylenol) 650 mg Q6H PRN ORAL Mild Pain/Temp > 100.5 04/12/18 17:45 05/12/18 17:44 04/21/18 12:44 Alprazolam (Xanax) 0.5 mg Q6H PRN ORAL For Anxiety 04/21/18 07:30 04/28/18 07:29 Aspirin (ASA) 81 mg DAILY ORAL 04/17/18 09:00 05/17/18 08:59 04/24/18 08:54 Bisacodyl (Dulcolax) 5 mg BID ORAL 04/21/18 19:00 05/21/18 18:59 04/24/18 08:53 Chlorhexidine Gluconate (Nivia-Hex 2%) 1 applic DAILY@2000 TOPIC 04/13/18 20:00 05/13/18 19:59 04/23/18 19:45 Dopamine HCl/ Dextrose 250 ml @ 0 mls/hr Q24H IV 04/18/18 02:00 05/18/18 01:59 04/24/18 10:57 Doxycycline Hyclate 100 mg/ Dextrose 100 ml @ 100 mls/hr Q12HR IV 04/16/18 21:00 04/29/18 20:59 04/24/18 08:53 Guaifenesin (Robitussin) 300 mg Q6H PRN ORAL For Cough 04/14/18 17:00 05/14/18 16:59 04/16/18 02:07 Heparin Sodium (Porcine) (Heparin 5000 units/ml) 5,000 units EVERY 12 HOURS SUBQ 04/12/18 21:00 05/12/18 20:59 04/24/18 09:02 Isosorbide Dinitrate (Isordil) 10 mg TID ORAL 04/16/18 18:00 05/16/18 17:59 04/24/18 08:53 Lactulose (Cephulac) 10 gm THREE TIMES A DAY ORAL 04/24/18 09:00 05/24/18 08:59 04/24/18 08:55 Meropenem 500 mg/ Sodium Chloride 50 ml @ 100 mls/hr Q24HRS IVPB 04/21/18 14:00 04/26/18 13:59 04/23/18 14:35 Midodrine (Pro-Amatine) 10 mg Q8HR ORAL 04/19/18 14:00 05/19/18 13:59 04/24/18 05:59 Morphine Sulfate (Morphine Sulfate) 2 mg Q4H PRN IVP Moderate Pain (Pain Scale 4-6) 04/21/18 18:30 04/28/18 18:29 04/22/18 18:47 Morphine Sulfate (Morphine Sulfate) 4 mg Q4H PRN IVP Severe Pain (Pain Scale 7-10) 04/21/18 18:30 04/28/18 18:29 04/23/18 21:46 Ondansetron HCl (Zofran) 4 mg Q4H PRN IVP Nausea & Vomiting 04/12/18 17:45 05/12/18 17:44 04/24/18 10:57 Pantoprazole (Protonix) 40 mg DAILY ORAL 04/24/18 09:00 05/12/18 17:59 04/24/18 08:54 Polyethylene Glycol (Miralax) 17 gm BEDTIME ORAL 04/21/18 21:00 05/21/18 20:59 04/23/18 21:59 Sevelamer Carbonate (Renvela) 2,400 mg THREE TIMES A DAY ORAL 04/23/18 13:00 05/13/18 08:59 04/24/18 08:54 Voriconazole (Vfend) 200 mg EVERY 12 HOURS ORAL 04/18/18 21:00 04/25/18 20:59 04/24/18 08:54 Edgardo Mcbride MD Apr 24, 2018 12:16
--- NOTE | 2018-04-24 12:20 | NUR ---
NURSE NOTES: MD LONDON HERE TO SEE PT. WILL PLACE NEW ORDERS.
[2018-04-24] MEDS: Morphine Sulfate 4mg/ml Inj (IV USE ONLY) IVP PRN (12:46)
--- NOTE | 2018-04-24 12:46 | NUR ---
NURSE NOTES: LAB HERE TRYING TO DRAW FOR BLOOD CULTURES, UNSUCCESSFUL. WILL ATTEMPT TO DRAW AGAIN. PT REFUSING 1300 MEDS BUT REQUESTING PAIN MEDICATION 12/27. ADMINISTERED MORPHINE 4MG IVP.HAS NOT EATING LUNCH, TRAY AT BEDSIDE.
--- NOTE | 2018-04-24 12:59 | Nephrology Progress Note ---
Assessment/Plan Problem List: (1) ESRD (end stage renal disease) on dialysis (2) Hypotension (3) Anemia of renal disease (4) Metabolic encephalopathy (5) Pneumonia Assessment ESRD on HD- HypoThyroidism- Periodic Hypotension- encephalopathic , metabolic- Plan dialysis 05/24 next 04/26 add asa and isordil for rising Troponin add prn imodium for loose bm per orders midodrine per consultants antibiotics for pneumonia Cardiac advise for low HR Subjective ROS Limited/Unobtainable: No Constitutional: Reports: malaise Objective Objective Last 24 Hour Vital Signs Date Time Temp Pulse Resp B/P (MAP) Pulse Ox O2 Delivery O2 Flow Rate FiO2 04/24/18 10:57 62/50 04/24/18 08:53 111/47 04/24/18 08:00 97.6 71 16 118/67 (84) 98 04/24/18 08:00 Nasal Cannula 4.0 04/24/18 08:00 71 04/24/18 07:30 68 16 77/54 (62) 99 04/24/18 07:00 72 20 114/60 (78) 100 04/24/18 06:45 97 Nasal Cannula 4.0 36 04/24/18 06:45 Nasal Cannula 4.0 36 04/24/18 06:00 75 16 83/43 (56) 93 04/24/18 06:00 83/43 04/24/18 05:45 72 10 126/58 (80) 100 04/24/18 05:41 115/70 04/24/18 05:30 77 16 115/100 (105) 99 04/24/18 05:15 80 18 73/44 (54) 100 04/24/18 05:00 95 25 69/32 (44) 96 04/24/18 05:00 88/47 04/24/18 04:45 80 16 92/41 (58) 96 04/24/18 04:30 73 20 101/46 (64) 96 04/24/18 04:15 79 17 95/38 (57) 91 04/24/18 04:00 79 04/24/18 04:00 97.7 76 15 84/35 (51) 91 04/24/18 04:00 95/38 04/24/18 04:00 Nasal Cannula 4.0 04/24/18 03:45 77 16 91/47 (62) 92 04/24/18 03:30 72 15 99/46 (63) 95 04/24/18 03:15 83 18 89/46 (60) 90 04/24/18 03:00 75 16 99/43 (61) 93 04/24/18 03:00 89/46 04/24/18 02:45 73 15 78/61 (67) 95 04/24/18 02:30 71 18 102/49 (66) 92 04/24/18 02:15 79 18 98/40 (59) 92 04/24/18 02:00 98/40 04/24/18 02:00 68 17 100/44 (62) 97 04/24/18 01:45 72 13 103/55 (71) 99 04/24/18 01:30 70 20 102/46 (64) 98 04/24/18 01:15 67 15 107/43 (64) 98 04/24/18 01:00 95 19 86/47 (60) 95 04/24/18 01:00 107/43 04/24/18 00:45 93 23 71/48 (56) 90 04/24/18 00:30 74 16 89/69 (76) 87 04/24/18 00:15 76 19 99/45 (63) 93 04/24/18 00:00 72 04/24/18 00:00 89/69 04/24/18 00:00 98.1 76 20 99/45 (63) 97 04/24/18 00:00 Nasal Cannula 4.0 04/23/18 23:57 108/49 04/23/18 23:45 71 17 108/49 (68) 95 04/23/18 23:30 70 18 111/51 (71) 95 04/23/18 23:15 69 18 110/52 (71) 98 04/23/18 23:00 85 18 92/46 (61) 92 04/23/18 22:45 74 16 65/47 (53) 96 04/23/18 22:30 68 17 106/45 (65) 97 04/23/18 22:26 98.7 04/23/18 22:15 68 17 106/53 (70) 97 04/23/18 22:00 93/51 04/23/18 22:00 80 19 107/53 (71) 97 04/23/18 21:45 76 20 103/46 (65) 95 04/23/18 21:30 83 19 89/47 (61) 98 04/23/18 21:15 64 19 114/47 (69) 97 04/23/18 21:00 71 18 44/28 (33) 95 04/23/18 21:00 99/55 04/23/18 20:45 83 19 86/29 (48) 94 04/23/18 20:30 69 20 98/49 (65) 98 04/23/18 20:15 77 24 91/38 (55) 97 04/23/18 20:00 88 04/23/18 20:00 Nasal Cannula 4.0 04/23/18 20:00 106/59 04/23/18 20:00 98.0 88 22 91/46 (61) 95 04/23/18 19:45 70 20 99/37 (57) 98 04/23/18 19:35 Nasal Cannula 3.0 32 04/23/18 19:34 98 Nasal Cannula 3.0 32 04/23/18 19:30 83 21 95/49 (64) 98 04/23/18 19:15 79 21 98/36 (56) 100 04/23/18 19:00 82 19 88/62 (71) 98 04/23/18 18:57 83/44 04/23/18 18:30 84 20 98/49 (65) 96 04/23/18 18:30 77/57 04/23/18 18:00 90 18 89/47 (61) 94 04/23/18 17:30 93 22 107/51 (69) 89 04/23/18 17:00 92 21 100/57 (71) 95 04/23/18 16:00 115 04/23/18 16:00 Nasal Cannula 4.0 04/23/18 16:00 99.0 92 17 61/47 (52) 93 04/23/18 15:30 102 21 88/49 (62) 92 04/23/18 15:00 101 21 94/42 (59) 93 04/23/18 14:34 120/71 04/23/18 14:34 120/71 04/23/18 14:30 106 20 120/71 (87) 100 04/23/18 14:00 81 21 119/65 (83) 98 04/23/18 13:00 86 17 110/49 (69) 98 Intake and Output 04/23/18 04/24/18 19:00 07:00 Intake Total 694.369 ml 623.950 ml Output Total 2000 ml 0 ml Balance -1305.631 ml 623.950 ml Intake Oral 210 ml 50 ml IV Total 484.369 ml 573.950 ml Output Urine Total 0 ml 0 ml Hemodialysis UF 2000 ml Laboratory Tests 04/24/18 04:49: White Blood Count 6.5, Red Blood Count 3.27L, Hemoglobin 9.8L, Hematocrit 30.1L , Mean Corpuscular Volume 92, Mean Corpuscular Hemoglobin 29.8, Mean Corpuscular Hemoglobin Concent 32.4, Red Cell Distribution Width 14.5, Platelet Count 178, Mean Platelet Volume 9.0, Neutrophils (%) (Auto) 71.3, Lymphocytes (% ) (Auto) 19.1L, Monocytes (%) (Auto) 8.4, Eosinophils (%) (Auto) 0.9, Basophils (%) (Auto) 0.3, Prothrombin Time 12.2H, Prothromb Time International Ratio 1.2H , Activated Partial Thromboplast Time 35H, Sodium Level 135L, Potassium Level 3.8, Chloride Level 93L, Carbon Dioxide Level 29, Anion Gap 13, Blood Urea Nitrogen 28H, Creatinine 8.1H, Estimat Glomerular Filtration Rate 6.3, Glucose Level 91, Calcium Level 9.5, Phosphorus Level 4.5, Magnesium Level 1.6L, Iron Level 48L, Total Iron Binding Capacity 188L, Percent Iron Saturation 26, Unsaturated Iron Binding 140, Total Bilirubin 0.7, Aspartate Amino Transf (AST/ SGOT) 17, Alanine Aminotransferase (ALT/SGPT) 12, Alkaline Phosphatase 173H, Total Protein 7.5, Albumin 2.8L, Globulin 4.7, Albumin/Globulin Ratio 0.6L, Carcinoembryonic Antigen [Pending] Height (Feet): 5 Height (Inches): 6.00 Weight (Pounds): 206 General Appearance: no apparent distress Objective no change Fredrick Conner MD Apr 24, 2018 12:59
--- NOTE | 2018-04-24 13:00 | NUR ---
NURSE NOTES: BP 78/61, DOPAMINE @ 16 MCG/KG/MIN. RECYCLED BP NOW 112/54. WILL CONTINUE TO MONITOR.
--- NOTE | 2018-04-24 13:30 | NUR ---
NURSE NOTES: MD Liang here to see pt. Requested dopamine decreased to keep SBP 90's.
--- NOTE | 2018-04-24 14:00 | NUR ---
NURSE NOTES: BP 112/54, DOPAMINE DECREASED FROM 16 TO 14 MCG/KG/MIN. WILL CONTINUE TO MONITOR.
--- NOTE | 2018-04-24 15:25 | Cardiac Electrophysiology PN ---
Assessment/Plan Assessment/Plan 1. Troponin leak, due to renal failure. Levels low and flat. The patient does not have any chest pain. 2. Septic shock. On Dopamine drip 16 mcg, midodrine 10 mg tid and iv Abx per Dr. Mcbride. DC isordil as it lower the BP 3. Bradycardia. Still on dopamine 16 mcg. Taper down today 4. Anterior T-wave inversion. No chest pain. EF 60% 5. End-stage renal disease, on hemodialysis, per Dr. Conner. 6. Diarrhea C Diff was negative 7. Sputum culture positive for Mold. FU ID DW RN Subjective Subjective On Dopamine drip 16 mcg . Had HD yesterday. No other events.Alert in NAD Objective Last 24 Hour Vital Signs Date Time Temp Pulse Resp B/P (MAP) Pulse Ox O2 Delivery O2 Flow Rate FiO2 04/24/18 12:00 Nasal Cannula 4.0 04/24/18 12:00 86 04/24/18 12:00 98.6 92 21 120/57 (78) 100 04/24/18 11:30 71 16 129/56 (80) 99 04/24/18 11:00 69 16 126/63 (84) 100 04/24/18 10:57 62/50 04/24/18 10:30 93 16 99/45 (63) 04/24/18 10:00 83 14 95/25 (48) 97 04/24/18 09:30 73 16 114/63 (80) 99 04/24/18 09:00 80 16 143/47 (79) 91 04/24/18 08:53 111/47 04/24/18 08:00 97.6 71 16 118/67 (84) 98 04/24/18 08:00 Nasal Cannula 4.0 04/24/18 08:00 71 04/24/18 07:30 68 16 77/54 (62) 99 04/24/18 07:00 72 20 114/60 (78) 100 04/24/18 06:45 97 Nasal Cannula 4.0 36 04/24/18 06:45 Nasal Cannula 4.0 36 04/24/18 06:00 75 16 83/43 (56) 93 04/24/18 06:00 83/43 04/24/18 05:45 72 10 126/58 (80) 100 04/24/18 05:41 115/70 04/24/18 05:30 77 16 115/100 (105) 99 04/24/18 05:15 80 18 73/44 (54) 100 04/24/18 05:00 95 25 69/32 (44) 96 04/24/18 05:00 88/47 04/24/18 04:45 80 16 92/41 (58) 96 04/24/18 04:30 73 20 101/46 (64) 96 04/24/18 04:15 79 17 95/38 (57) 91 04/24/18 04:00 79 04/24/18 04:00 97.7 76 15 84/35 (51) 91 04/24/18 04:00 95/38 04/24/18 04:00 Nasal Cannula 4.0 04/24/18 03:45 77 16 91/47 (62) 92 04/24/18 03:30 72 15 99/46 (63) 95 04/24/18 03:15 83 18 89/46 (60) 90 04/24/18 03:00 75 16 99/43 (61) 93 04/24/18 03:00 89/46 04/24/18 02:45 73 15 78/61 (67) 95 04/24/18 02:30 71 18 102/49 (66) 92 04/24/18 02:15 79 18 98/40 (59) 92 04/24/18 02:00 98/40 04/24/18 02:00 68 17 100/44 (62) 97 04/24/18 01:45 72 13 103/55 (71) 99 04/24/18 01:30 70 20 102/46 (64) 98 04/24/18 01:15 67 15 107/43 (64) 98 04/24/18 01:00 95 19 86/47 (60) 95 04/24/18 01:00 107/43 04/24/18 00:45 93 23 71/48 (56) 90 04/24/18 00:30 74 16 89/69 (76) 87 04/24/18 00:15 76 19 99/45 (63) 93 04/24/18 00:00 72 04/24/18 00:00 89/69 04/24/18 00:00 98.1 76 20 99/45 (63) 97 04/24/18 00:00 Nasal Cannula 4.0 04/23/18 23:57 108/49 04/23/18 23:45 71 17 108/49 (68) 95 04/23/18 23:30 70 18 111/51 (71) 95 04/23/18 23:15 69 18 110/52 (71) 98 04/23/18 23:00 85 18 92/46 (61) 92 04/23/18 22:45 74 16 65/47 (53) 96 04/23/18 22:30 68 17 106/45 (65) 97 04/23/18 22:26 98.7 04/23/18 22:15 68 17 106/53 (70) 97 04/23/18 22:00 93/51 04/23/18 22:00 80 19 107/53 (71) 97 04/23/18 21:45 76 20 103/46 (65) 95 04/23/18 21:30 83 19 89/47 (61) 98 04/23/18 21:15 64 19 114/47 (69) 97 04/23/18 21:00 71 18 44/28 (33) 95 04/23/18 21:00 99/55 04/23/18 20:45 83 19 86/29 (48) 94 04/23/18 20:30 69 20 98/49 (65) 98 04/23/18 20:15 77 24 91/38 (55) 97 04/23/18 20:00 88 04/23/18 20:00 Nasal Cannula 4.0 04/23/18 20:00 106/59 04/23/18 20:00 98.0 88 22 91/46 (61) 95 04/23/18 19:45 70 20 99/37 (57) 98 04/23/18 19:35 Nasal Cannula 3.0 32 04/23/18 19:34 98 Nasal Cannula 3.0 32 04/23/18 19:30 83 21 95/49 (64) 98 04/23/18 19:15 79 21 98/36 (56) 100 04/23/18 19:00 82 19 88/62 (71) 98 04/23/18 18:57 83/44 04/23/18 18:30 84 20 98/49 (65) 96 04/23/18 18:30 77/57 04/23/18 18:00 90 18 89/47 (61) 94 04/23/18 17:30 93 22 107/51 (69) 89 04/23/18 17:00 92 21 100/57 (71) 95 04/23/18 16:00 115 04/23/18 16:00 Nasal Cannula 4.0 04/23/18 16:00 99.0 92 17 61/47 (52) 93 04/23/18 15:30 102 21 88/49 (62) 92 Intake and Output 04/23/18 04/24/18 19:00 07:00 Intake Total 694.369 ml 671.345 ml Output Total 2000 ml 0 ml Balance -1305.631 ml 671.345 ml Intake Oral 210 ml 50 ml IV Total 484.369 ml 621.345 ml Output Urine Total 0 ml 0 ml Hemodialysis UF 2000 ml Laboratory Tests Test 04/24/18 04:49 White Blood Count 6.5 K/UL (4.8-10.8) Red Blood Count 3.27 M/UL (4.20-5.40) L Hemoglobin 9.8 G/DL (12.0-16.0) L Hematocrit 30.1 % (37.0-47.0) L Mean Corpuscular Volume 92 FL (80-99) Mean Corpuscular Hemoglobin 29.8 PG (27.0-31.0) Mean Corpuscular Hemoglobin Concent 32.4 G/DL (32.0-36.0) Red Cell Distribution Width 14.5 % (11.6-14.8) Platelet Count 178 K/UL (150-450) Mean Platelet Volume 9.0 FL (6.5-10.1) Neutrophils (%) (Auto) 71.3 % (45.0-75.0) Lymphocytes (%) (Auto) 19.1 % (20.0-45.0) L Monocytes (%) (Auto) 8.4 % (1.0-10.0) Eosinophils (%) (Auto) 0.9 % (0.0-3.0) Basophils (%) (Auto) 0.3 % (0.0-2.0) Prothrombin Time 12.2 SEC (9.30-11.50) H Prothromb Time International Ratio 1.2 (0.9-1.1) H Activated Partial Thromboplast Time 35 SEC (23-33) H Sodium Level 135 MMOL/L (136-145) L Potassium Level 3.8 MMOL/L (3.5-5.1) Chloride Level 93 MMOL/L (98-107) L Carbon Dioxide Level 29 MMOL/L (21-32) Anion Gap 13 mmol/L (5-15) Blood Urea Nitrogen 28 mg/dL (7-18) H Creatinine 8.1 MG/DL (0.55-1.30) H Estimat Glomerular Filtration Rate 6.3 mL/min (>60) Glucose Level 91 MG/DL (74-106) Calcium Level 9.5 MG/DL (8.5-10.1) Phosphorus Level 4.5 MG/DL (2.5-4.9) Magnesium Level 1.6 MG/DL (1.8-2.4) L Iron Level 48 ug/dL (50-175) L Total Iron Binding Capacity 188 ug/dL (250-450) L Percent Iron Saturation 26 % (15-50) Unsaturated Iron Binding 140 ug/dL (112-346) Ferritin 1430 NG/ML (8-388) H Total Bilirubin 0.7 MG/DL (0.2-1.0) Aspartate Amino Transf (AST/SGOT) 17 U/L (15-37) Alanine Aminotransferase (ALT/SGPT) 12 U/L (12-78) Alkaline Phosphatase 173 U/L (46-116) H Total Protein 7.5 G/DL (6.4-8.2) Albumin 2.8 G/DL (3.4-5.0) L Globulin 4.7 g/dL Albumin/Globulin Ratio 0.6 (1.0-2.7) L Carcinoembryonic Antigen Pending Objective HEAD AND NECK: No JVD. LUNGS: Decreased breath sounds. CARDIOVASCULAR: Regular S1 and S2 no GRM ABDOMEN: Soft. EXTREMITIES: No edema Tc Liang MD Apr 24, 2018 15:25
--- NOTE | 2018-04-24 15:29 | Internal Med Progress Note ---
Subjective Date of Service: Apr 24, 2018 Physician Name Edward Hrarell Attending Physician Ash Henley MD Current Medications Medications (Trade) Dose Ordered Sig/Marcos Route PRN Reason Start Time Stop Time Status Last Admin Dose Admin Acetaminophen (Tylenol) 650 mg Q6H PRN ORAL Mild Pain/Temp > 100.5 04/12/18 17:45 05/12/18 17:44 04/21/18 12:44 Alprazolam (Xanax) 0.5 mg Q6H PRN ORAL For Anxiety 04/21/18 07:30 04/28/18 07:29 Aspirin (ASA) 81 mg DAILY ORAL 04/17/18 09:00 05/17/18 08:59 04/24/18 08:54 Bisacodyl (Dulcolax) 5 mg BID ORAL 04/21/18 19:00 05/21/18 18:59 04/24/18 08:53 Chlorhexidine Gluconate (Nivia-Hex 2%) 1 applic DAILY@2000 TOPIC 04/13/18 20:00 05/13/18 19:59 04/23/18 19:45 Dopamine HCl/ Dextrose 250 ml @ 0 mls/hr Q24H IV 04/18/18 02:00 05/18/18 01:59 04/24/18 10:57 Doxycycline Hyclate 100 mg/ Dextrose 100 ml @ 100 mls/hr Q12HR IV 04/16/18 21:00 04/29/18 20:59 04/24/18 08:53 Guaifenesin (Robitussin) 300 mg Q6H PRN ORAL For Cough 04/14/18 17:00 05/14/18 16:59 04/16/18 02:07 Heparin Sodium (Porcine) (Heparin 5000 units/ml) 5,000 units EVERY 12 HOURS SUBQ 04/12/18 21:00 05/12/18 20:59 04/24/18 09:02 Isosorbide Dinitrate (Isordil) 10 mg TID ORAL 04/16/18 18:00 05/16/18 17:59 04/24/18 08:53 Lactulose (Cephulac) 10 gm THREE TIMES A DAY ORAL 04/24/18 09:00 05/24/18 08:59 04/24/18 08:55 Meropenem 500 mg/ Sodium Chloride 50 ml @ 100 mls/hr Q24HRS IVPB 04/24/18 14:00 04/29/18 13:59 Midodrine (Pro-Amatine) 10 mg Q8HR ORAL 04/19/18 14:00 05/19/18 13:59 04/24/18 05:59 Morphine Sulfate (Morphine Sulfate) 2 mg Q4H PRN IVP Moderate Pain (Pain Scale 4-6) 04/21/18 18:30 04/28/18 18:29 04/22/18 18:47 Morphine Sulfate (Morphine Sulfate) 4 mg Q4H PRN IVP Severe Pain (Pain Scale 7-10) 04/21/18 18:30 04/28/18 18:29 04/24/18 12:46 Ondansetron HCl (Zofran) 4 mg Q4H PRN IVP Nausea & Vomiting 04/12/18 17:45 05/12/18 17:44 04/24/18 10:57 Pantoprazole (Protonix) 40 mg DAILY ORAL 04/24/18 09:00 05/12/18 17:59 04/24/18 08:54 Polyethylene Glycol (Miralax) 17 gm BEDTIME ORAL 04/21/18 21:00 05/21/18 20:59 04/23/18 21:59 Sevelamer Carbonate (Renvela) 2,400 mg THREE TIMES A DAY ORAL 04/23/18 13:00 05/13/18 08:59 04/24/18 08:54 Voriconazole (Vfend) 200 mg EVERY 12 HOURS ORAL 04/24/18 21:00 05/01/18 20:59 Allergies: Coded Allergies: CEFAZOLIN (Verified Allergy, Unknown, 10/02/10) CIPROFLOXACIN (Verified Allergy, Unknown, 10/02/10) GENTAMICIN (Verified Allergy, Unknown, 10/02/10) KETAMINE (Verified Allergy, Unknown, 03/29/18) LEVOFLOXACIN (Verified Allergy, Unknown, 10/02/10) PENICILLINS (Verified Allergy, Unknown, ITCH, 10/02/10) Uncoded Allergies: CONTRAST MEDIA (Adverse Reaction, Mild, MILD ITCHING AFTER CONTRAST MEDIA, 04/30/17) ROS Limited/Unobtainable: No Constitutional: Reports: no symptoms HEENT: Reports: no symptoms Cardiovascular: Reports: no symptoms Respiratory: Reports: no symptoms Gastrointestinal/Abdominal: Reports: no symptoms Genitourinary: Reports: no symptoms Neurologic/Psychiatric: Reports: no symptoms Subjective 53 YO F admitted with shortness of breath. Now pneumonia. Cover for Int John- Dr Henley. ICU. Continues on dopamine. Abdominal pain improved Objective Last Vital Signs Date Time Temp Pulse Resp B/P (MAP) Pulse Ox O2 Delivery O2 Flow Rate FiO2 04/24/18 15:00 101 17 118/68 (85) 100 04/24/18 12:00 Nasal Cannula 4.0 04/24/18 12:00 98.6 04/24/18 06:45 36 Laboratory Tests Test 04/24/18 04:49 White Blood Count 6.5 K/UL (4.8-10.8) Red Blood Count 3.27 M/UL (4.20-5.40) L Hemoglobin 9.8 G/DL (12.0-16.0) L Hematocrit 30.1 % (37.0-47.0) L Mean Corpuscular Volume 92 FL (80-99) Mean Corpuscular Hemoglobin 29.8 PG (27.0-31.0) Mean Corpuscular Hemoglobin Concent 32.4 G/DL (32.0-36.0) Red Cell Distribution Width 14.5 % (11.6-14.8) Platelet Count 178 K/UL (150-450) Mean Platelet Volume 9.0 FL (6.5-10.1) Neutrophils (%) (Auto) 71.3 % (45.0-75.0) Lymphocytes (%) (Auto) 19.1 % (20.0-45.0) L Monocytes (%) (Auto) 8.4 % (1.0-10.0) Eosinophils (%) (Auto) 0.9 % (0.0-3.0) Basophils (%) (Auto) 0.3 % (0.0-2.0) Prothrombin Time 12.2 SEC (9.30-11.50) H Prothromb Time International Ratio 1.2 (0.9-1.1) H Activated Partial Thromboplast Time 35 SEC (23-33) H Sodium Level 135 MMOL/L (136-145) L Potassium Level 3.8 MMOL/L (3.5-5.1) Chloride Level 93 MMOL/L (98-107) L Carbon Dioxide Level 29 MMOL/L (21-32) Anion Gap 13 mmol/L (5-15) Blood Urea Nitrogen 28 mg/dL (7-18) H Creatinine 8.1 MG/DL (0.55-1.30) H Estimat Glomerular Filtration Rate 6.3 mL/min (>60) Glucose Level 91 MG/DL (74-106) Calcium Level 9.5 MG/DL (8.5-10.1) Phosphorus Level 4.5 MG/DL (2.5-4.9) Magnesium Level 1.6 MG/DL (1.8-2.4) L Iron Level 48 ug/dL (50-175) L Total Iron Binding Capacity 188 ug/dL (250-450) L Percent Iron Saturation 26 % (15-50) Unsaturated Iron Binding 140 ug/dL (112-346) Ferritin 1430 NG/ML (8-388) H Total Bilirubin 0.7 MG/DL (0.2-1.0) Aspartate Amino Transf (AST/SGOT) 17 U/L (15-37) Alanine Aminotransferase (ALT/SGPT) 12 U/L (12-78) Alkaline Phosphatase 173 U/L (46-116) H Total Protein 7.5 G/DL (6.4-8.2) Albumin 2.8 G/DL (3.4-5.0) L Globulin 4.7 g/dL Albumin/Globulin Ratio 0.6 (1.0-2.7) L Carcinoembryonic Antigen Pending Intake and Output 04/23/18 04/24/18 19:00 07:00 Intake Total 694.369 ml 671.345 ml Output Total 2000 ml 0 ml Balance -1305.631 ml 671.345 ml Intake Oral 210 ml 50 ml IV Total 484.369 ml 621.345 ml Output Urine Total 0 ml 0 ml Hemodialysis UF 2000 ml Objective Objective GENERAL: Awake, responsive, alert HEAD AND NECK: Pupils equal and reactive to light. Extraocular movements intact. Neck was supple. No JVD. LUNGS: Fair air entry. Poor respiratory effort. No wheeze or rhonchi. Decreased air in the bases. HEART: S1 and S2. Distant heart sounds. No murmur. ABDOMEN: Soft, nondistended, and nontender. Morbidly obese. EXTREMITIES: No cyanosis, clubbing, or edema. Right femoral area PermCath as well as left upper extremity AV fistula, functional. NEUROLOGIC: Cranial nerves II through XII are grossly intact. The patient is moving all the extremities spontaneously. Gait was not assessed due to the patient's status. PSYCHIATRIC: Mood and affect are intact. Assessment/Plan Assessment/Plan Assessment/Plan Assessment/Plan 1. Sepsis, most likely secondary to left upper lobe and, to a lesser extent, medial right lower lobe most likely representing multifocal pneumonia. 2. Hypotension, possible septic shock. 3. Pancytopenia with severe thrombocytopenia resolving. 4. End-stage renal disease, on hemodialysis. 5. Altered mental status, most likely toxic metabolic encephalopathy as a result of infection as well as uremia. 6. Anemia of chronic kidney disease. 7. Morbid obesity. 8. Bradycardia. 9. Diarrhea 10. Abdominal pain. PLAN: In ICU. follow up laboratory and cultures. Dr. Fredrick Conner from Nephrology consult; next hemodialysis 04/20/18. Dr. Mcbride from ID consult. Discussed with the family member, brother at the bedside. Abx: Vancomycin, Meropenem, Azithromycin Code status is Full Code. DVT prophylaxis: heparin subcutaneous. continue Dopamine Drip CT of chest noted. Cortisol level Pending. C. Diff neg. Send stool for repeat Continue dopamine See GI consult; KUB=no obstruction advance diet Edward Harrell MD Apr 24, 2018 15:29
--- NOTE | 2018-04-24 15:56 | Pulmonolgy Critical Care Note ---
Critical Care - Asmt/Plan Problems: (1) Septic shock (2) Pneumonia (3) Hypotension (4) ESRD (end stage renal disease) on dialysis (5) CHF (congestive heart failure) (6) Hypoparathyroidism Respiratory: monitor respiratory rate, adjust FIO2, CXR Cardiac: continue to monitor HR/BP Renal: F/U I&O Infectious Disease: check cultures Gastrointestinal: continue feedings/current rate, hold feedings Endocrine: check TSH Hematologic: monitor H/H, transfuse if hgb<8.5 Neurologic: PRN Ativan, keep patient comfortable Prophylaxis: Protonix, Heparin Notes Reviewed: cardio, renal Discussed with: nurses, consultants, family independence case managerprint production manager - Objective Last 24 Hour Vital Signs Date Time Temp Pulse Resp B/P (MAP) Pulse Ox O2 Delivery O2 Flow Rate FiO2 04/24/18 15:00 101 17 118/68 (85) 100 04/24/18 14:00 86 18 112/54 (73) 100 04/24/18 13:00 89 18 78/61 (67) 100 04/24/18 12:00 Nasal Cannula 4.0 04/24/18 12:00 86 04/24/18 12:00 98.6 92 21 120/57 (78) 100 04/24/18 11:30 71 16 129/56 (80) 99 04/24/18 11:00 69 16 126/63 (84) 100 04/24/18 10:57 62/50 04/24/18 10:30 93 16 99/45 (63) 04/24/18 10:00 83 14 95/25 (48) 97 04/24/18 09:30 73 16 114/63 (80) 99 04/24/18 09:00 80 16 143/47 (79) 91 04/24/18 08:53 111/47 04/24/18 08:00 97.6 71 16 118/67 (84) 98 04/24/18 08:00 Nasal Cannula 4.0 04/24/18 08:00 71 04/24/18 07:30 68 16 77/54 (62) 99 04/24/18 07:00 72 20 114/60 (78) 100 04/24/18 06:45 97 Nasal Cannula 4.0 36 04/24/18 06:45 Nasal Cannula 4.0 36 04/24/18 06:00 75 16 83/43 (56) 93 04/24/18 06:00 83/43 04/24/18 05:45 72 10 126/58 (80) 100 04/24/18 05:41 115/70 04/24/18 05:30 77 16 115/100 (105) 99 04/24/18 05:15 80 18 73/44 (54) 100 04/24/18 05:00 95 25 69/32 (44) 96 04/24/18 05:00 88/47 04/24/18 04:45 80 16 92/41 (58) 96 04/24/18 04:30 73 20 101/46 (64) 96 04/24/18 04:15 79 17 95/38 (57) 91 04/24/18 04:00 79 04/24/18 04:00 97.7 76 15 84/35 (51) 91 04/24/18 04:00 95/38 04/24/18 04:00 Nasal Cannula 4.0 04/24/18 03:45 77 16 91/47 (62) 92 04/24/18 03:30 72 15 99/46 (63) 95 04/24/18 03:15 83 18 89/46 (60) 90 04/24/18 03:00 75 16 99/43 (61) 93 04/24/18 03:00 89/46 04/24/18 02:45 73 15 78/61 (67) 95 04/24/18 02:30 71 18 102/49 (66) 92 04/24/18 02:15 79 18 98/40 (59) 92 04/24/18 02:00 98/40 04/24/18 02:00 68 17 100/44 (62) 97 04/24/18 01:45 72 13 103/55 (71) 99 04/24/18 01:30 70 20 102/46 (64) 98 04/24/18 01:15 67 15 107/43 (64) 98 04/24/18 01:00 95 19 86/47 (60) 95 04/24/18 01:00 107/43 04/24/18 00:45 93 23 71/48 (56) 90 04/24/18 00:30 74 16 89/69 (76) 87 04/24/18 00:15 76 19 99/45 (63) 93 04/24/18 00:00 72 04/24/18 00:00 89/69 04/24/18 00:00 98.1 76 20 99/45 (63) 97 04/24/18 00:00 Nasal Cannula 4.0 04/23/18 23:57 108/49 04/23/18 23:45 71 17 108/49 (68) 95 04/23/18 23:30 70 18 111/51 (71) 95 04/23/18 23:15 69 18 110/52 (71) 98 04/23/18 23:00 85 18 92/46 (61) 92 04/23/18 22:45 74 16 65/47 (53) 96 04/23/18 22:30 68 17 106/45 (65) 97 04/23/18 22:26 98.7 04/23/18 22:15 68 17 106/53 (70) 97 04/23/18 22:00 93/51 04/23/18 22:00 80 19 107/53 (71) 97 04/23/18 21:45 76 20 103/46 (65) 95 04/23/18 21:30 83 19 89/47 (61) 98 04/23/18 21:15 64 19 114/47 (69) 97 04/23/18 21:00 71 18 44/28 (33) 95 04/23/18 21:00 99/55 04/23/18 20:45 83 19 86/29 (48) 94 04/23/18 20:30 69 20 98/49 (65) 98 04/23/18 20:15 77 24 91/38 (55) 97 04/23/18 20:00 88 04/23/18 20:00 Nasal Cannula 4.0 04/23/18 20:00 106/59 04/23/18 20:00 98.0 88 22 91/46 (61) 95 04/23/18 19:45 70 20 99/37 (57) 98 04/23/18 19:35 Nasal Cannula 3.0 32 04/23/18 19:34 98 Nasal Cannula 3.0 32 04/23/18 19:30 83 21 95/49 (64) 98 04/23/18 19:15 79 21 98/36 (56) 100 04/23/18 19:00 82 19 88/62 (71) 98 04/23/18 18:57 83/44 04/23/18 18:30 84 20 98/49 (65) 96 04/23/18 18:30 77/57 04/23/18 18:00 90 18 89/47 (61) 94 04/23/18 17:30 93 22 107/51 (69) 89 04/23/18 17:00 92 21 100/57 (71) 95 04/23/18 16:00 115 04/23/18 16:00 Nasal Cannula 4.0 04/23/18 16:00 99.0 92 17 61/47 (52) 93 Status: awake Condition: critical Neck: full ROM Lungs: clear Heart: HR/BP stable Abdomen: soft, active bowel sounds Extremities: no C/C/E, edema Decubiti: location Critical Care - Subjective ROS Limited/Unobtainable: No Interval Events: still on Dopamine drip Condition: critical EKG Rhythm: Sinus Rhythm FI02: 36 Sputum Amount: None I&O: Intake and Output 04/23/18 04/24/18 19:00 07:00 Intake Total 694.369 ml 671.345 ml Output Total 2000 ml 0 ml Balance -1305.631 ml 671.345 ml Intake Oral 210 ml 50 ml IV Total 484.369 ml 621.345 ml Output Urine Total 0 ml 0 ml Hemodialysis UF 2000 ml CXR: no change Labs: Laboratory Tests Test 04/24/18 04:49 White Blood Count 6.5 K/UL (4.8-10.8) Red Blood Count 3.27 M/UL (4.20-5.40) L Hemoglobin 9.8 G/DL (12.0-16.0) L Hematocrit 30.1 % (37.0-47.0) L Mean Corpuscular Volume 92 FL (80-99) Mean Corpuscular Hemoglobin 29.8 PG (27.0-31.0) Mean Corpuscular Hemoglobin Concent 32.4 G/DL (32.0-36.0) Red Cell Distribution Width 14.5 % (11.6-14.8) Platelet Count 178 K/UL (150-450) Mean Platelet Volume 9.0 FL (6.5-10.1) Neutrophils (%) (Auto) 71.3 % (45.0-75.0) Lymphocytes (%) (Auto) 19.1 % (20.0-45.0) L Monocytes (%) (Auto) 8.4 % (1.0-10.0) Eosinophils (%) (Auto) 0.9 % (0.0-3.0) Basophils (%) (Auto) 0.3 % (0.0-2.0) Prothrombin Time 12.2 SEC (9.30-11.50) H Prothromb Time International Ratio 1.2 (0.9-1.1) H Activated Partial Thromboplast Time 35 SEC (23-33) H Sodium Level 135 MMOL/L (136-145) L Potassium Level 3.8 MMOL/L (3.5-5.1) Chloride Level 93 MMOL/L (98-107) L Carbon Dioxide Level 29 MMOL/L (21-32) Anion Gap 13 mmol/L (5-15) Blood Urea Nitrogen 28 mg/dL (7-18) H Creatinine 8.1 MG/DL (0.55-1.30) H Estimat Glomerular Filtration Rate 6.3 mL/min (>60) Glucose Level 91 MG/DL (74-106) Calcium Level 9.5 MG/DL (8.5-10.1) Phosphorus Level 4.5 MG/DL (2.5-4.9) Magnesium Level 1.6 MG/DL (1.8-2.4) L Iron Level 48 ug/dL (50-175) L Total Iron Binding Capacity 188 ug/dL (250-450) L Percent Iron Saturation 26 % (15-50) Unsaturated Iron Binding 140 ug/dL (112-346) Ferritin 1430 NG/ML (8-388) H Total Bilirubin 0.7 MG/DL (0.2-1.0) Aspartate Amino Transf (AST/SGOT) 17 U/L (15-37) Alanine Aminotransferase (ALT/SGPT) 12 U/L (12-78) Alkaline Phosphatase 173 U/L (46-116) H Total Protein 7.5 G/DL (6.4-8.2) Albumin 2.8 G/DL (3.4-5.0) L Globulin 4.7 g/dL Albumin/Globulin Ratio 0.6 (1.0-2.7) L Carcinoembryonic Antigen Pending Cuate Schmidt MD Apr 24, 2018 15:56
--- NOTE | 2018-04-24 16:00 | NUR ---
NURSE NOTES: BP 75/24, DOPAMINE INCREASED FROM 14 TO 16 MCG/KG/MIN. WILL CONTINUE TO MONITOR.
--- NOTE | 2018-04-24 18:15 | NUR ---
NURSE NOTES: Cleaned up pt room, refused repositioning and cleaning up. pt states comfortable right now and don't want to move. VSS. Dopamine @12mcg/kg/hr, /47.
--- NOTE | 2018-04-24 18:52 | NUR ---
NURSE NOTES: BP dropped to 87/55, found pt lying on tubing. Removed kinks in tubing. Dopamine increased to 16mcg/kg/min. Final BP 99/42, pt c/o of feeling hot. Removed blankets and applied cool moist cloth to head. Therapeutic communication provided. Pt now resting in bed. Will continue to monitor pt closely.
--- NOTE | 2018-04-24 19:24 | NUR ---
HAND-OFF: Report given to loretta. pt in no acute distress
--- NOTE | 2018-04-24 19:30 | NUR ---
NURSE NOTES:Received pt asleep, but arousable to verbal stimultion. Awake, alert x4 BARCENAS x4, SR on the monitor Bp labile ,pt with Dopamine drip at 12 mcg/kg/min Bp 102/50 skin warm and dry. AVshunt SHUKRI with good bruit, RT femoral permacath is where Dopamine drips been running, MDs we aware. pt been complaining of constipation and been given some meds for bowel movement. No bowel movement at this time. Will continue to monitor.
[2018-04-24] MEDS: Dyna-Hex 2% Top Sol 2oz TOPIC SCH (20:16)
[2018-04-24] MEDS: Miralax 17gm pkt ORAL SCH (21:20)
--- NOTE | 2018-04-24 21:58 | NUR ---
NURSE NOTES:Pt stated that shes experiencing panic attack at this time, re check vital signs and its been stable, stayed with pt and attended to all her complaints.
--- NOTE | 2018-04-24 22:00 | NUR ---
NURSE NOTES:Unble to tolerate low dose of Dopamine, increase rate up to 15 mcg/kg/min., bp 104/52
--- NOTE | 2018-04-24 22:06 | NUR ---
NURSE NOTES:xanax 0.5mg po given for pts anxiety
[2018-04-25] VITALS (47 sets, daily range): BP systolic 63–118; BP diastolic 18–66
--- NOTE | 2018-04-25 02:00 | NUR ---
NURSE NOTES:Pt got up to the bedside commode and had lg soft bowel movement- pt cleaned up with bed changed was done.
[2018-04-25] MEDS: DOPamine 400mg/250ml 250 ML IV SCH ×4 (03:10→21:09)
--- NOTE | 2018-04-25 04:00 | NUR ---
NURSE NOTES:Resting well at this time. Bp still labile.
[2018-04-25 05:34] LABS: BASOPHILS % (AUTO) 0.5 % (0.0-2.0); EOSINOPHILS % (AUTO) 0.9 % (0.0-3.0); HEMATOCRIT 29.4 % (37.0-47.0); HEMOGLOBIN 9.7 G/DL (12.0-16.0); LYMPHOCYTES % (AUTO) 15.5 % (20.0-45.0); MEAN CORPUSCULAR VOLUME 92 FL (80-99); MONOCYTES % (AUTO) 11.2 % (1.0-10.0); NEUTROPHILS % (AUTO) 71.9 % (45.0-75.0); PLATELET COUNT 176 K/UL (150-450); RED BLOOD COUNT 3.19 M/UL (4.20-5.40); RED CELL DISTRIBUTION WIDTH 14.8 % (11.6-14.8); WHITE BLOOD COUNT 6.3 K/UL (4.8-10.8)
[2018-04-25 05:58] LABS: PHOSPHORUS 4.8 MG/DL (2.5-4.9)
--- NOTE | 2018-04-25 06:00 | NUR ---
NURSE NOTES:more calmed at this time, Still on Dopamine drip at 15mcg/kg /min. Bp still labile.
[2018-04-25 06:01] LABS: ALANINE AMINOTRANSFERASE 10 U/L (12-78); ALBUMIN 2.9 G/DL (3.4-5.0); ALBUMIN/GLOBULIN RATIO 0.7 (1.0-2.7); ALKALINE PHOSPHATASE 209 U/L (46-116); ANION GAP 13 mmol/L (5-15); ASPARTATE AMINO TRANSFERASE 15 U/L (15-37); BILIRUBIN,TOTAL 0.7 MG/DL (0.2-1.0); BLOOD UREA NITROGEN 37 mg/dL (7-18); CALCIUM 9.3 MG/DL (8.5-10.1); CARBON DIOXIDE 28 MMOL/L (21-32); CHLORIDE 91 MMOL/L (98-107); CREATININE 9.2 MG/DL (0.55-1.30); POTASSIUM 4.2 MMOL/L (3.5-5.1); SODIUM 132 MMOL/L (136-145)
[2018-04-25] MEDS: Midodrine 10mg tab ORAL SCH ×3 (06:30→21:49)
--- NOTE | 2018-04-25 07:29 | NUR ---
HAND-OFF: Report given to Soila Alvarez using SBAR.
[2018-04-25] MEDS: Bisacodyl EC 5mg tab ORAL SCH ×2 (08:03→14:12)
[2018-04-25] MEDS: Lactulose 10gm/15ml UDC ORAL SCH ×3 (08:03→14:13)
[2018-04-25] MEDS: Aspirin Baby 81mg ORAL SCH (08:28)
--- NOTE | 2018-04-25 09:00 | NUR ---
NURSE NOTES: Patient requested bedside commode. Patient was able to get up and get on the commode without any issues. Patient had a small, soft BM. Patient was cleaned, linens changed and gown changed. VSS. Will continue to monitor.
[2018-04-25] MEDS: Heparin 5000 units/ml inj SUBQ SCH ×2 (09:49→21:00)
--- NOTE | 2018-04-25 10:00 | Pulmonolgy Critical Care Note ---
Critical Care - Asmt/Plan Problems: (1) Septic shock (2) Pneumonia (3) Hypotension (4) ESRD (end stage renal disease) on dialysis (5) CHF (congestive heart failure) (6) Hypoparathyroidism Respiratory: monitor respiratory rate, adjust FIO2, CXR Cardiac: continue to monitor HR/BP Renal: F/U I&O, check electrolytes Infectious Disease: check cultures Gastrointestinal: continue feedings/current rate Endocrine: monitor blood sugar, check HgA1C Hematologic: monitor H/H, transfuse if hgb<8.5 Neurologic: PRN Ativan, keep patient comfortable Affect: PRN ativan Prophylaxis: Protonix, Heparin Notes Reviewed: remittance clerk, renal Discussed with: nurses, consultants, child support case officersafety and occupational health manager - Objective Last 24 Hour Vital Signs Date Time Temp Pulse Resp B/P (MAP) Pulse Ox O2 Delivery O2 Flow Rate FiO2 04/25/18 09:10 75 18 101/46 (64) 97 04/25/18 08:17 93/56 04/25/18 08:00 Nasal Cannula 4.0 04/25/18 08:00 91 18 93/56 (68) 97 04/25/18 07:00 74 17 91/29 (49) 97 04/25/18 07:00 100/53 04/25/18 06:35 95 Room Air 21 04/25/18 06:35 Room Air 21 04/25/18 06:30 75 18 101/46 (64) 97 04/25/18 06:00 96/53 04/25/18 06:00 74 18 93/46 (62) 97 04/25/18 05:30 70 18 90/29 (49) 97 04/25/18 05:00 73 18 96/29 (51) 97 04/25/18 05:00 96/29 04/25/18 04:30 73 19 90/46 (61) 99 04/25/18 04:00 98.6 79 19 101/41 (61) 97 04/25/18 04:00 79 04/25/18 04:00 101/41 04/25/18 04:00 Nasal Cannula 4.0 04/25/18 03:30 80 19 93/35 (54) 99 04/25/18 03:10 86/37 04/25/18 03:00 74 19 86/37 (53) 99 04/25/18 02:30 96 19 106/48 (67) 92 04/25/18 02:00 96/48 04/25/18 02:00 70 19 96/48 (64) 92 04/25/18 01:30 90 19 79/44 (56) 92 04/25/18 01:00 115/57 04/25/18 01:00 90 21 118/57 (77) 94 04/25/18 00:30 79 21 115/57 (76) 94 04/25/18 00:00 Nasal Cannula 4.0 04/25/18 00:00 80 04/25/18 00:00 98.0 80 20 105/54 (71) 95 04/25/18 00:00 105/54 04/24/18 23:30 76 16 124/48 (73) 97 04/24/18 23:00 76/40 04/24/18 23:00 74 19 76/40 (52) 97 04/24/18 22:30 79 20 86/29 (48) 97 04/24/18 22:00 73 16 115/60 (78) 98 04/24/18 21:53 104/52 04/24/18 21:30 84 29 102/30 (54) 98 04/24/18 21:00 72 29 102/41 (61) 98 04/24/18 20:50 130/44 04/24/18 20:30 75 19 130/44 (72) 93 04/24/18 20:00 Nasal Cannula 4.0 04/24/18 20:00 102/50 04/24/18 20:00 98.6 75 19 102/50 (67) 93 04/24/18 19:30 82 19 114/65 (81) 97 04/24/18 19:00 73 17 85/70 (75) 97 04/24/18 18:50 Room Air 21 04/24/18 18:50 95 Room Air 21 04/24/18 18:30 68 17 89/43 (58) 99 04/24/18 18:00 91/47 04/24/18 18:00 73 17 85/70 (75) 97 04/24/18 17:54 114/54 04/24/18 17:30 72 19 100/50 (67) 100 04/24/18 17:00 99/45 04/24/18 17:00 76 19 99/45 (63) 96 04/24/18 16:30 69 19 75/32 (46) 97 04/24/18 16:00 Nasal Cannula 4.0 04/24/18 16:00 98.7 89 21 106/58 (74) 93 04/24/18 16:00 75/24 04/24/18 16:00 106 04/24/18 15:46 118/68 04/24/18 15:30 93 18 101/59 (73) 94 04/24/18 15:00 101 17 118/68 (85) 100 04/24/18 14:30 100 19 106/54 (71) 95 04/24/18 14:00 112/54 04/24/18 14:00 86 18 112/54 (73) 100 04/24/18 13:30 90 20 98/48 (65) 95 04/24/18 13:00 89 18 78/61 (67) 100 04/24/18 13:00 78/61 04/24/18 12:30 94 18 124/63 (83) 96 04/24/18 12:00 Nasal Cannula 4.0 04/24/18 12:00 86 04/24/18 12:00 117/68 04/24/18 12:00 98.6 92 21 120/57 (78) 100 04/24/18 11:30 71 16 129/56 (80) 99 04/24/18 11:00 69 16 126/63 (84) 100 04/24/18 11:00 126/63 04/24/18 10:57 62/50 04/24/18 10:30 93 16 99/45 (63) 04/24/18 10:00 83 14 95/25 (48) 97 Status: sedated Condition: critical HEENT: atraumatic Lungs: clear Heart: HR/BP stable Abdomen: soft, non-tender, feeding tube Extremities: no C/C/E Critical Care - Subjective ROS Limited/Unobtainable: Yes Condition: critical EKG Rhythm: Sinus Rhythm FI02: 21 Sputum Amount: None I&O: Intake and Output 04/24/18 04/25/18 19:00 07:00 Intake Total 1001.657 ml 540.718 ml Output Total 100 ml 1 ml Balance 901.657 ml 539.718 ml Intake Oral 260 ml 60 ml IV Total 741.657 ml 480.718 ml Output Urine Total 0 ml 0 ml Stool Total 1 ml Emesis 100 ml # Bowel Movements 3 Labs: Laboratory Tests Test 04/25/18 03:00 04/25/18 04:11 Stool Occult Blood Negative (NEGATIVE) White Blood Count 6.3 K/UL (4.8-10.8) Red Blood Count 3.19 M/UL (4.20-5.40) L Hemoglobin 9.7 G/DL (12.0-16.0) L Hematocrit 29.4 % (37.0-47.0) L Mean Corpuscular Volume 92 FL (80-99) Mean Corpuscular Hemoglobin 30.4 PG (27.0-31.0) Mean Corpuscular Hemoglobin Concent 32.9 G/DL (32.0-36.0) Red Cell Distribution Width 14.8 % (11.6-14.8) Platelet Count 176 K/UL (150-450) Mean Platelet Volume 10.8 FL (6.5-10.1) H Neutrophils (%) (Auto) 71.9 % (45.0-75.0) Lymphocytes (%) (Auto) 15.5 % (20.0-45.0) L Monocytes (%) (Auto) 11.2 % (1.0-10.0) H Eosinophils (%) (Auto) 0.9 % (0.0-3.0) Basophils (%) (Auto) 0.5 % (0.0-2.0) Sodium Level 132 MMOL/L (136-145) L Potassium Level 4.2 MMOL/L (3.5-5.1) Chloride Level 91 MMOL/L (98-107) L Carbon Dioxide Level 28 MMOL/L (21-32) Anion Gap 13 mmol/L (5-15) Blood Urea Nitrogen 37 mg/dL (7-18) H Creatinine 9.2 MG/DL (0.55-1.30) H Estimat Glomerular Filtration Rate 5.5 mL/min (>60) Glucose Level 91 MG/DL (74-106) Calcium Level 9.3 MG/DL (8.5-10.1) Phosphorus Level 4.8 MG/DL (2.5-4.9) Magnesium Level 1.5 MG/DL (1.8-2.4) L Total Bilirubin 0.7 MG/DL (0.2-1.0) Aspartate Amino Transf (AST/SGOT) 15 U/L (15-37) Alanine Aminotransferase (ALT/SGPT) 10 U/L (12-78) L Alkaline Phosphatase 209 U/L (46-116) H C-Reactive Protein, Quantitative 27.7 mg/dL (0.00-0.90) H Pro-B-Type Natriuretic Peptide 5400 pg/mL (0-125) H Total Protein 7.1 G/DL (6.4-8.2) Albumin 2.9 G/DL (3.4-5.0) L Globulin 4.2 g/dL Albumin/Globulin Ratio 0.7 (1.0-2.7) L Cuate Schmidt MD Apr 25, 2018 10:00
--- NOTE | 2018-04-25 10:45 | NUR ---
NURSE NOTES: Patient was cleaned and linens were changed. Gown was also changed. Patient used dry wash cloth to clean herself then threw it in the sink. Educated patient to use the wipes the call light to ask for assistance instead of throwing fecal soiled washcloths on the floor or in the sink. Patient's hands were cleaned and call light was placed within reach. Will continue to monitor.
--- NOTE | 2018-04-25 11:04 | Consultation ---
History of Present Illness General Date patient seen: Apr 24, 2018 Chief Complaint: General Complaint Referring physician: EVELYN DESAI Reason for Consultation: ABDOMINAL PAIN Present Illness HPI 53-year-old black female with history of hypertension and end-stage renal disease, on hemodialysis, who was brought to the hospital for altered mental status and weakness. The pt pw depressed mood, insomnia and panic attack like sxs. the pt stated that she has been up all night. the pt stated that she got a dose of xanax which has not been alleviating her sxs. the pt denied si/hi. the pt has been in the hospital since Allergies: Coded Allergies: CEFAZOLIN (Verified Allergy, Unknown, 10/02/10) CIPROFLOXACIN (Verified Allergy, Unknown, 10/02/10) GENTAMICIN (Verified Allergy, Unknown, 10/02/10) KETAMINE (Verified Allergy, Unknown, 03/29/18) LEVOFLOXACIN (Verified Allergy, Unknown, 10/02/10) PENICILLINS (Verified Allergy, Unknown, ITCH, 10/02/10) Uncoded Allergies: CONTRAST MEDIA (Adverse Reaction, Mild, MILD ITCHING AFTER CONTRAST MEDIA, 04/30/17) Medication History Scheduled Apixaban (Eliquis), 2.5 MG PO BID, (Reported) Cinacalcet* (Sensipar*), 30 MG ORAL 3XW, (Reported) Midodrine* (Proamatine*), 20 MG ORAL BID, (Reported) Omeprazole (Omeprazole), 20 MG ORAL BID, (Reported) Sevelamer Carbonate (Renvela), 1,600 MG ORAL THREE TIMES A DAY, (Reported) Travoprost (Travatan Z), 5 ML OP BID, (Reported) Scheduled PRN Codeine/Promethazine Hcl* (Promethazine-Codeine Syrup*), 5 ML ORAL Q6H PRN for For Cough, (Reported) Zolpidem Tartrate* (Ambien*), 10 MG PO HS PRN for INSOMNIA, (Reported) Miscellaneous Medications Fluticasone/Salmeterol (Advair Hfa 115-21 Mcg Inhaler), 2 PUFFS INH, (Reported) Unable to Obtain Medications (Unable To Obtain Meds), (Reported) Patient History History Provided By: Patient, Medical Record, PMD Healthcare decision maker Resuscitation status Full Code Advanced Directive on File No Past Medical/Surgical History Past Medical/Surgical History: (1) Metabolic encephalopathy (2) Constipation (3) Anxiety (4) Epigastric abdominal pain (5) Pneumonia (6) Anemia of renal disease (7) Line sepsis associated with dialysis catheter (8) Acute bronchitis (9) Dental abscess (10) Acute respiratory failure with hypoxemia (11) Pleural effusion on right (12) Hypoparathyroidism (13) Hypotension (14) HTN (hypertension) (15) CHF (congestive heart failure) (16) Pulmonary embolism (17) ACS (acute coronary syndrome) (18) ESRD (end stage renal disease) on dialysis (19) Costochondritis (20) Pneumonia (21) Septic shock Review of Systems Psychiatric: Reports: prior hx, anxiety, depressed feelings, emotional problems Physical Exam General Appearance: alert, moderate distress, agitated, overweight Last 24 Hour Vital Signs Date Time Temp Pulse Resp B/P (MAP) Pulse Ox O2 Delivery O2 Flow Rate FiO2 04/25/18 09:10 75 18 101/46 (64) 97 04/25/18 08:17 93/56 04/25/18 08:00 Nasal Cannula 4.0 04/25/18 08:00 91 18 93/56 (68) 97 04/25/18 07:00 74 17 91/29 (49) 97 04/25/18 07:00 100/53 04/25/18 06:35 95 Room Air 21 04/25/18 06:35 Room Air 21 04/25/18 06:30 75 18 101/46 (64) 97 04/25/18 06:00 96/53 04/25/18 06:00 74 18 93/46 (62) 97 04/25/18 05:30 70 18 90/29 (49) 97 04/25/18 05:00 73 18 96/29 (51) 97 04/25/18 05:00 96/29 04/25/18 04:30 73 19 90/46 (61) 99 04/25/18 04:00 98.6 79 19 101/41 (61) 97 04/25/18 04:00 79 04/25/18 04:00 101/41 04/25/18 04:00 Nasal Cannula 4.0 04/25/18 03:30 80 19 93/35 (54) 99 04/25/18 03:10 86/37 04/25/18 03:00 74 19 86/37 (53) 99 04/25/18 02:30 96 19 106/48 (67) 92 04/25/18 02:00 96/48 04/25/18 02:00 70 19 96/48 (64) 92 04/25/18 01:30 90 19 79/44 (56) 92 04/25/18 01:00 115/57 04/25/18 01:00 90 21 118/57 (77) 94 04/25/18 00:30 79 21 115/57 (76) 94 04/25/18 00:00 Nasal Cannula 4.0 04/25/18 00:00 80 04/25/18 00:00 98.0 80 20 105/54 (71) 95 04/25/18 00:00 105/54 04/24/18 23:30 76 16 124/48 (73) 97 04/24/18 23:00 76/40 04/24/18 23:00 74 19 76/40 (52) 97 04/24/18 22:30 79 20 86/29 (48) 97 04/24/18 22:00 73 16 115/60 (78) 98 04/24/18 21:53 104/52 04/24/18 21:30 84 29 102/30 (54) 98 04/24/18 21:00 72 29 102/41 (61) 98 04/24/18 20:50 130/44 04/24/18 20:30 75 19 130/44 (72) 93 04/24/18 20:00 Nasal Cannula 4.0 04/24/18 20:00 102/50 04/24/18 20:00 98.6 75 19 102/50 (67) 93 04/24/18 19:30 82 19 114/65 (81) 97 04/24/18 19:00 73 17 85/70 (75) 97 04/24/18 18:50 Room Air 21 04/24/18 18:50 95 Room Air 21 04/24/18 18:30 68 17 89/43 (58) 99 04/24/18 18:00 91/47 04/24/18 18:00 73 17 85/70 (75) 97 04/24/18 17:54 114/54 04/24/18 17:30 72 19 100/50 (67) 100 04/24/18 17:00 99/45 04/24/18 17:00 76 19 99/45 (63) 96 04/24/18 16:30 69 19 75/32 (46) 97 04/24/18 16:00 Nasal Cannula 4.0 04/24/18 16:00 98.7 89 21 106/58 (74) 93 04/24/18 16:00 75/24 04/24/18 16:00 106 04/24/18 15:46 118/68 04/24/18 15:30 93 18 101/59 (73) 94 04/24/18 15:00 101 17 118/68 (85) 100 04/24/18 14:30 100 19 106/54 (71) 95 04/24/18 14:00 112/54 04/24/18 14:00 86 18 112/54 (73) 100 04/24/18 13:30 90 20 98/48 (65) 95 04/24/18 13:00 89 18 78/61 (67) 100 04/24/18 13:00 78/61 04/24/18 12:30 94 18 124/63 (83) 96 04/24/18 12:00 Nasal Cannula 4.0 04/24/18 12:00 86 04/24/18 12:00 117/68 04/24/18 12:00 98.6 92 21 120/57 (78) 100 04/24/18 11:30 71 16 129/56 (80) 99 Intake and Output 04/24/18 04/25/18 19:00 07:00 Intake Total 1001.657 ml 540.718 ml Output Total 100 ml 1 ml Balance 901.657 ml 539.718 ml Intake Oral 260 ml 60 ml IV Total 741.657 ml 480.718 ml Output Urine Total 0 ml 0 ml Stool Total 1 ml Emesis 100 ml # Bowel Movements 3 Laboratory Tests Test 04/25/18 03:00 04/25/18 04:11 Stool Occult Blood Negative (NEGATIVE) White Blood Count 6.3 K/UL (4.8-10.8) Red Blood Count 3.19 M/UL (4.20-5.40) L Hemoglobin 9.7 G/DL (12.0-16.0) L Hematocrit 29.4 % (37.0-47.0) L Mean Corpuscular Volume 92 FL (80-99) Mean Corpuscular Hemoglobin 30.4 PG (27.0-31.0) Mean Corpuscular Hemoglobin Concent 32.9 G/DL (32.0-36.0) Red Cell Distribution Width 14.8 % (11.6-14.8) Platelet Count 176 K/UL (150-450) Mean Platelet Volume 10.8 FL (6.5-10.1) H Neutrophils (%) (Auto) 71.9 % (45.0-75.0) Lymphocytes (%) (Auto) 15.5 % (20.0-45.0) L Monocytes (%) (Auto) 11.2 % (1.0-10.0) H Eosinophils (%) (Auto) 0.9 % (0.0-3.0) Basophils (%) (Auto) 0.5 % (0.0-2.0) Sodium Level 132 MMOL/L (136-145) L Potassium Level 4.2 MMOL/L (3.5-5.1) Chloride Level 91 MMOL/L (98-107) L Carbon Dioxide Level 28 MMOL/L (21-32) Anion Gap 13 mmol/L (5-15) Blood Urea Nitrogen 37 mg/dL (7-18) H Creatinine 9.2 MG/DL (0.55-1.30) H Estimat Glomerular Filtration Rate 5.5 mL/min (>60) Glucose Level 91 MG/DL (74-106) Calcium Level 9.3 MG/DL (8.5-10.1) Phosphorus Level 4.8 MG/DL (2.5-4.9) Magnesium Level 1.5 MG/DL (1.8-2.4) L Total Bilirubin 0.7 MG/DL (0.2-1.0) Aspartate Amino Transf (AST/SGOT) 15 U/L (15-37) Alanine Aminotransferase (ALT/SGPT) 10 U/L (12-78) L Alkaline Phosphatase 209 U/L (46-116) H C-Reactive Protein, Quantitative 27.7 mg/dL (0.00-0.90) H Pro-B-Type Natriuretic Peptide 5400 pg/mL (0-125) H Total Protein 7.1 G/DL (6.4-8.2) Albumin 2.9 G/DL (3.4-5.0) L Globulin 4.2 g/dL Albumin/Globulin Ratio 0.7 (1.0-2.7) L Height (Feet): 5 Height (Inches): 6.00 Weight (Pounds): 203 Medications Current Medications Medications (Trade) Dose Ordered Sig/Marcos Route PRN Reason Start Time Stop Time Status Last Admin Dose Admin Acetaminophen (Tylenol) 650 mg Q6H PRN ORAL Mild Pain/Temp > 100.5 04/12/18 17:45 05/12/18 17:44 04/21/18 12:44 Alprazolam (Xanax) 0.5 mg Q6H PRN ORAL For Anxiety 04/21/18 07:30 04/28/18 07:29 04/24/18 22:04 Aspirin (ASA) 81 mg DAILY ORAL 04/17/18 09:00 05/17/18 08:59 04/25/18 08:28 Bisacodyl (Dulcolax) 5 mg BID ORAL 04/21/18 19:00 05/21/18 18:59 04/24/18 17:54 Chlorhexidine Gluconate (Nivia-Hex 2%) 1 applic DAILY@2000 TOPIC 04/13/18 20:00 05/13/18 19:59 04/24/18 20:16 Dopamine HCl/ Dextrose 250 ml @ 0 mls/hr Q24H IV 04/18/18 02:00 05/18/18 01:59 04/25/18 08:17 Doxycycline Hyclate 100 mg/ Dextrose 100 ml @ 100 mls/hr Q12HR IV 04/16/18 21:00 04/29/18 20:59 04/25/18 10:00 Guaifenesin (Robitussin) 300 mg Q6H PRN ORAL For Cough 04/14/18 17:00 05/14/18 16:59 04/16/18 02:07 Heparin Sodium (Porcine) (Heparin 5000 units/ml) 5,000 units EVERY 12 HOURS SUBQ 04/12/18 21:00 05/12/18 20:59 04/25/18 09:49 Lactulose (Cephulac) 10 gm THREE TIMES A DAY ORAL 04/24/18 09:00 05/24/18 08:59 04/24/18 17:54 Meropenem 500 mg/ Sodium Chloride 50 ml @ 100 mls/hr Q24HRS IVPB 04/24/18 14:00 04/29/18 13:59 04/24/18 15:46 Midodrine (Pro-Amatine) 10 mg Q8HR ORAL 04/19/18 14:00 05/19/18 13:59 04/25/18 06:30 Morphine Sulfate (Morphine Sulfate) 2 mg Q4H PRN IVP Moderate Pain (Pain Scale 4-6) 04/21/18 18:30 04/28/18 18:29 04/22/18 18:47 Morphine Sulfate (Morphine Sulfate) 4 mg Q4H PRN IVP Severe Pain (Pain Scale 7-10) 04/21/18 18:30 04/28/18 18:29 04/24/18 12:46 Ondansetron HCl (Zofran) 4 mg Q4H PRN IVP Nausea & Vomiting 04/12/18 17:45 05/12/18 17:44 04/24/18 10:57 Pantoprazole (Protonix) 40 mg DAILY ORAL 04/24/18 09:00 05/12/18 17:59 04/25/18 08:18 Polyethylene Glycol (Miralax) 17 gm BEDTIME ORAL 04/21/18 21:00 05/21/18 20:59 04/24/18 21:20 Sevelamer Carbonate (Renvela) 2,400 mg THREE TIMES A DAY ORAL 04/23/18 13:00 05/13/18 08:59 04/25/18 08:17 Voriconazole (Vfend) 200 mg EVERY 12 HOURS ORAL 04/24/18 21:00 05/01/18 20:59 04/25/18 08:18 Assessment/Plan Problem List: (1) Panic attack ICD Codes: F41.0 - Panic disorder [episodic paroxysmal anxiety] SNOMED: 740646354 (2) Anxiety ICD Codes: F41.9 - Anxiety disorder, unspecified SNOMED: 79193346 (3) Metabolic encephalopathy ICD Codes: G93.41 - Metabolic encephalopathy SNOMED: 54975466 Assessment/Plan celexa 20mg qam remeron 7.5mg qhs ativan 2mg q 6hr Edwin Willis MD Apr 25, 2018 11:04
[2018-04-25] MEDS ORDERED: LORazepam 1mg tab ORAL PRN (11:15)
--- NOTE | 2018-04-25 11:37 | Nephrology Progress Note ---
Assessment/Plan Problem List: (1) ESRD (end stage renal disease) on dialysis (2) Hypotension (3) Anemia of renal disease (4) Metabolic encephalopathy (5) Pneumonia Assessment ESRD on HD- HypoThyroidism- Periodic Hypotension- encephalopathic , metabolic- Plan bp still maintained on dopamin dialysis 05/24 next 04/26 add asa and isordil for rising Troponin add prn imodium for loose bm per orders midodrine per consultants antibiotics for pneumonia Cardiac advise for low HR Subjective ROS Limited/Unobtainable: No Constitutional: Reports: malaise Objective Objective Last 24 Hour Vital Signs Date Time Temp Pulse Resp B/P (MAP) Pulse Ox O2 Delivery O2 Flow Rate FiO2 04/25/18 09:10 75 18 101/46 (64) 97 04/25/18 08:17 93/56 04/25/18 08:00 Nasal Cannula 4.0 04/25/18 08:00 91 18 93/56 (68) 97 04/25/18 07:00 74 17 91/29 (49) 97 04/25/18 07:00 100/53 04/25/18 06:35 95 Room Air 21 04/25/18 06:35 Room Air 21 04/25/18 06:30 75 18 101/46 (64) 97 04/25/18 06:00 96/53 04/25/18 06:00 74 18 93/46 (62) 97 04/25/18 05:30 70 18 90/29 (49) 97 04/25/18 05:00 73 18 96/29 (51) 97 04/25/18 05:00 96/29 04/25/18 04:30 73 19 90/46 (61) 99 04/25/18 04:00 98.6 79 19 101/41 (61) 97 04/25/18 04:00 79 04/25/18 04:00 101/41 04/25/18 04:00 Nasal Cannula 4.0 04/25/18 03:30 80 19 93/35 (54) 99 04/25/18 03:10 86/37 04/25/18 03:00 74 19 86/37 (53) 99 04/25/18 02:30 96 19 106/48 (67) 92 04/25/18 02:00 96/48 04/25/18 02:00 70 19 96/48 (64) 92 04/25/18 01:30 90 19 79/44 (56) 92 04/25/18 01:00 115/57 04/25/18 01:00 90 21 118/57 (77) 94 04/25/18 00:30 79 21 115/57 (76) 94 04/25/18 00:00 Nasal Cannula 4.0 04/25/18 00:00 80 04/25/18 00:00 98.0 80 20 105/54 (71) 95 04/25/18 00:00 105/54 04/24/18 23:30 76 16 124/48 (73) 97 04/24/18 23:00 76/40 04/24/18 23:00 74 19 76/40 (52) 97 04/24/18 22:30 79 20 86/29 (48) 97 04/24/18 22:00 73 16 115/60 (78) 98 04/24/18 21:53 104/52 04/24/18 21:30 84 29 102/30 (54) 98 04/24/18 21:00 72 29 102/41 (61) 98 04/24/18 20:50 130/44 04/24/18 20:30 75 19 130/44 (72) 93 04/24/18 20:00 Nasal Cannula 4.0 04/24/18 20:00 102/50 04/24/18 20:00 98.6 75 19 102/50 (67) 93 04/24/18 19:30 82 19 114/65 (81) 97 04/24/18 19:00 73 17 85/70 (75) 97 04/24/18 18:50 Room Air 21 04/24/18 18:50 95 Room Air 21 04/24/18 18:30 68 17 89/43 (58) 99 04/24/18 18:00 91/47 04/24/18 18:00 73 17 85/70 (75) 97 04/24/18 17:54 114/54 04/24/18 17:30 72 19 100/50 (67) 100 04/24/18 17:00 99/45 04/24/18 17:00 76 19 99/45 (63) 96 04/24/18 16:30 69 19 75/32 (46) 97 04/24/18 16:00 Nasal Cannula 4.0 04/24/18 16:00 98.7 89 21 106/58 (74) 93 04/24/18 16:00 75/24 04/24/18 16:00 106 04/24/18 15:46 118/68 04/24/18 15:30 93 18 101/59 (73) 94 04/24/18 15:00 101 17 118/68 (85) 100 04/24/18 14:30 100 19 106/54 (71) 95 04/24/18 14:00 112/54 04/24/18 14:00 86 18 112/54 (73) 100 04/24/18 13:30 90 20 98/48 (65) 95 04/24/18 13:00 89 18 78/61 (67) 100 04/24/18 13:00 78/61 04/24/18 12:30 94 18 124/63 (83) 96 04/24/18 12:00 Nasal Cannula 4.0 04/24/18 12:00 86 04/24/18 12:00 117/68 04/24/18 12:00 98.6 92 21 120/57 (78) 100 Intake and Output 04/24/18 04/25/18 19:00 07:00 Intake Total 1001.657 ml 540.718 ml Output Total 100 ml 1 ml Balance 901.657 ml 539.718 ml Intake Oral 260 ml 60 ml IV Total 741.657 ml 480.718 ml Output Urine Total 0 ml 0 ml Stool Total 1 ml Emesis 100 ml # Bowel Movements 3 Laboratory Tests 04/25/18 03:00: Stool Occult Blood Negative 04/25/18 04:11: White Blood Count 6.3, Red Blood Count 3.19L, Hemoglobin 9.7L, Hematocrit 29.4L , Mean Corpuscular Volume 92, Mean Corpuscular Hemoglobin 30.4, Mean Corpuscular Hemoglobin Concent 32.9, Red Cell Distribution Width 14.8, Platelet Count 176, Mean Platelet Volume 10.8H, Neutrophils (%) (Auto) 71.9, Lymphocytes (%) (Auto) 15.5L, Monocytes (%) (Auto) 11.2H, Eosinophils (%) (Auto) 0.9, Basophils (%) (Auto) 0.5, Sodium Level 132L, Potassium Level 4.2, Chloride Level 91L, Carbon Dioxide Level 28, Anion Gap 13, Blood Urea Nitrogen 37H, Creatinine 9.2H, Estimat Glomerular Filtration Rate 5.5, Glucose Level 91, Calcium Level 9.3, Phosphorus Level 4.8, Magnesium Level 1.5L, Total Bilirubin 0.7, Aspartate Amino Transf (AST/SGOT) 15, Alanine Aminotransferase (ALT/SGPT) 10L, Alkaline Phosphatase 209H, C-Reactive Protein, Quantitative 27.7H, Pro-B- Type Natriuretic Peptide 5400H, Total Protein 7.1, Albumin 2.9L, Globulin 4.2, Albumin/Globulin Ratio 0.7L Height (Feet): 5 Height (Inches): 6.00 Weight (Pounds): 203 General Appearance: no apparent distress Respiratory/Chest: decreased breath sounds Abdomen: distended Objective no change Fredrick Conner MD Apr 25, 2018 11:37
[2018-04-25] MEDS: Citalopram Hydrobromide 10mg Tab ORAL SCH (12:00)
--- NOTE | 2018-04-25 12:28 | GI Progress Note ---
Assessment/Plan Problems: (1) Epigastric abdominal pain ICD Codes: R10.13 - Epigastric pain SNOMED: 28347258 (2) Anxiety ICD Codes: F41.9 - Anxiety disorder, unspecified SNOMED: 97933355 (3) Constipation ICD Codes: K59.00 - Constipation, unspecified SNOMED: 50187789 (4) Anemia of renal disease ICD Codes: D63.1 - Anemia in chronic kidney disease SNOMED: 731114571, 458759561 Status: unchanged Status Narrative Discussed with Dr. Diaz. Assessment/Plan Unknown history of abdominal surgery KUB noted mainly unremarkable, pending final report cdiff, stool studies both negative OB stool negative anemia work up on renal diet protonix daily fu labs bowel regimen The patient was seen and examined at bedside and all new and available data was reviewed in the patients chart. I agree with the above findings, impression and plan. (Patient seen earlier today. Signature stamp does not reflect patient encounter time.). - Ryley Diaz MD Subjective Subjective Patient states that abdominal pain has improved Still has complaint of constipation Objective Last 24 Hour Vital Signs Date Time Temp Pulse Resp B/P (MAP) Pulse Ox O2 Delivery O2 Flow Rate FiO2 04/25/18 09:10 75 18 101/46 (64) 97 04/25/18 08:17 93/56 04/25/18 08:00 Nasal Cannula 4.0 04/25/18 08:00 91 18 93/56 (68) 97 04/25/18 07:00 74 17 91/29 (49) 97 04/25/18 07:00 100/53 04/25/18 06:35 95 Room Air 21 04/25/18 06:35 Room Air 21 04/25/18 06:30 75 18 101/46 (64) 97 04/25/18 06:00 96/53 04/25/18 06:00 74 18 93/46 (62) 97 04/25/18 05:30 70 18 90/29 (49) 97 04/25/18 05:00 73 18 96/29 (51) 97 04/25/18 05:00 96/29 04/25/18 04:30 73 19 90/46 (61) 99 04/25/18 04:00 98.6 79 19 101/41 (61) 97 04/25/18 04:00 79 04/25/18 04:00 101/41 04/25/18 04:00 Nasal Cannula 4.0 04/25/18 03:30 80 19 93/35 (54) 99 04/25/18 03:10 86/37 04/25/18 03:00 74 19 86/37 (53) 99 04/25/18 02:30 96 19 106/48 (67) 92 04/25/18 02:00 96/48 04/25/18 02:00 70 19 96/48 (64) 92 04/25/18 01:30 90 19 79/44 (56) 92 04/25/18 01:00 115/57 04/25/18 01:00 90 21 118/57 (77) 94 04/25/18 00:30 79 21 115/57 (76) 94 04/25/18 00:00 Nasal Cannula 4.0 04/25/18 00:00 80 04/25/18 00:00 98.0 80 20 105/54 (71) 95 04/25/18 00:00 105/54 04/24/18 23:30 76 16 124/48 (73) 97 04/24/18 23:00 76/40 04/24/18 23:00 74 19 76/40 (52) 97 04/24/18 22:30 79 20 86/29 (48) 97 04/24/18 22:00 73 16 115/60 (78) 98 04/24/18 21:53 104/52 04/24/18 21:30 84 29 102/30 (54) 98 04/24/18 21:00 72 29 102/41 (61) 98 04/24/18 20:50 130/44 04/24/18 20:30 75 19 130/44 (72) 93 04/24/18 20:00 Nasal Cannula 4.0 04/24/18 20:00 102/50 04/24/18 20:00 98.6 75 19 102/50 (67) 93 04/24/18 19:30 82 19 114/65 (81) 97 04/24/18 19:00 73 17 85/70 (75) 97 04/24/18 18:50 Room Air 21 04/24/18 18:50 95 Room Air 21 04/24/18 18:30 68 17 89/43 (58) 99 04/24/18 18:00 91/47 04/24/18 18:00 73 17 85/70 (75) 97 04/24/18 17:54 114/54 04/24/18 17:30 72 19 100/50 (67) 100 04/24/18 17:00 99/45 04/24/18 17:00 76 19 99/45 (63) 96 04/24/18 16:30 69 19 75/32 (46) 97 04/24/18 16:00 Nasal Cannula 4.0 04/24/18 16:00 98.7 89 21 106/58 (74) 93 04/24/18 16:00 75/24 04/24/18 16:00 106 04/24/18 15:46 118/68 04/24/18 15:30 93 18 101/59 (73) 94 04/24/18 15:00 101 17 118/68 (85) 100 04/24/18 14:30 100 19 106/54 (71) 95 04/24/18 14:00 112/54 04/24/18 14:00 86 18 112/54 (73) 100 04/24/18 13:30 90 20 98/48 (65) 95 04/24/18 13:00 89 18 78/61 (67) 100 04/24/18 13:00 78/61 04/24/18 12:30 94 18 124/63 (83) 96 Intake and Output 04/24/18 04/25/18 19:00 07:00 Intake Total 1001.657 ml 540.718 ml Output Total 100 ml 1 ml Balance 901.657 ml 539.718 ml Intake Oral 260 ml 60 ml IV Total 741.657 ml 480.718 ml Output Urine Total 0 ml 0 ml Stool Total 1 ml Emesis 100 ml # Bowel Movements 3 Laboratory Tests Test 04/25/18 03:00 04/25/18 04:11 Stool Occult Blood Negative (NEGATIVE) White Blood Count 6.3 K/UL (4.8-10.8) Red Blood Count 3.19 M/UL (4.20-5.40) L Hemoglobin 9.7 G/DL (12.0-16.0) L Hematocrit 29.4 % (37.0-47.0) L Mean Corpuscular Volume 92 FL (80-99) Mean Corpuscular Hemoglobin 30.4 PG (27.0-31.0) Mean Corpuscular Hemoglobin Concent 32.9 G/DL (32.0-36.0) Red Cell Distribution Width 14.8 % (11.6-14.8) Platelet Count 176 K/UL (150-450) Mean Platelet Volume 10.8 FL (6.5-10.1) H Neutrophils (%) (Auto) 71.9 % (45.0-75.0) Lymphocytes (%) (Auto) 15.5 % (20.0-45.0) L Monocytes (%) (Auto) 11.2 % (1.0-10.0) H Eosinophils (%) (Auto) 0.9 % (0.0-3.0) Basophils (%) (Auto) 0.5 % (0.0-2.0) Sodium Level 132 MMOL/L (136-145) L Potassium Level 4.2 MMOL/L (3.5-5.1) Chloride Level 91 MMOL/L (98-107) L Carbon Dioxide Level 28 MMOL/L (21-32) Anion Gap 13 mmol/L (5-15) Blood Urea Nitrogen 37 mg/dL (7-18) H Creatinine 9.2 MG/DL (0.55-1.30) H Estimat Glomerular Filtration Rate 5.5 mL/min (>60) Glucose Level 91 MG/DL (74-106) Calcium Level 9.3 MG/DL (8.5-10.1) Phosphorus Level 4.8 MG/DL (2.5-4.9) Magnesium Level 1.5 MG/DL (1.8-2.4) L Total Bilirubin 0.7 MG/DL (0.2-1.0) Aspartate Amino Transf (AST/SGOT) 15 U/L (15-37) Alanine Aminotransferase (ALT/SGPT) 10 U/L (12-78) L Alkaline Phosphatase 209 U/L (46-116) H C-Reactive Protein, Quantitative 27.7 mg/dL (0.00-0.90) H Pro-B-Type Natriuretic Peptide 5400 pg/mL (0-125) H Total Protein 7.1 G/DL (6.4-8.2) Albumin 2.9 G/DL (3.4-5.0) L Globulin 4.2 g/dL Albumin/Globulin Ratio 0.7 (1.0-2.7) L Height (Feet): 5 Height (Inches): 6.00 Weight (Pounds): 203 General Appearance: WD/WN, no apparent distress, alert Cardiovascular: normal rate Respiratory/Chest: normal breath sounds, no respiratory distress Abdominal Exam: normal bowel sounds, non tender, soft Extremities: non-tender Wm Faustin NP Apr 25, 2018 12:28
--- NOTE | 2018-04-25 13:10 | NUR ---
NURSE NOTES: Patient observed to be resting bedside however is easily arousable. Patient opens eyes spontaneously. Patient reports that she is feeling as if she is having loose BMs again and has requested Diarrhea medication. Patient does not appear in any acute distress. Patient is being monitored on the manager cardiac. VSS. Patient is on 4L NC however she takes off the NC very often. Patient is anuric. Patient has a permacath that is running Dopa 12 mcgs at this time to sustain her hypotension. The monitor has been turned away from the patient to DEC patient anxiety and she states that she feels better despite being hypotensive. Patient's BP numbers are not given and she is unable to focus on her BP numbers. Safety measures are in place with bed locked in the lowest position, side rails up x 3 with call light within reach. Will continue to monitor and follow plan of care.
--- NOTE | 2018-04-25 13:13 | Consultation ---
History of Present Illness General Date patient seen: Apr 25, 2018 Chief Complaint: General Complaint Referring physician: EVELYN DESAI Reason for Consultation: ABDOMINAL PAIN Present Illness HPI 53-year-old female with hx of mmp, the pt has anxiety depressed mood and anhedonia the pt stated that she needs some medication to work fast Allergies: Coded Allergies: CEFAZOLIN (Verified Allergy, Unknown, 10/02/10) CIPROFLOXACIN (Verified Allergy, Unknown, 10/02/10) GENTAMICIN (Verified Allergy, Unknown, 10/02/10) KETAMINE (Verified Allergy, Unknown, 03/29/18) LEVOFLOXACIN (Verified Allergy, Unknown, 10/02/10) PENICILLINS (Verified Allergy, Unknown, ITCH, 10/02/10) Uncoded Allergies: CONTRAST MEDIA (Adverse Reaction, Mild, MILD ITCHING AFTER CONTRAST MEDIA, 04/30/17) Medication History Scheduled Apixaban (Eliquis), 2.5 MG PO BID, (Reported) Cinacalcet* (Sensipar*), 30 MG ORAL 3XW, (Reported) Midodrine* (Proamatine*), 20 MG ORAL BID, (Reported) Omeprazole (Omeprazole), 20 MG ORAL BID, (Reported) Sevelamer Carbonate (Renvela), 1,600 MG ORAL THREE TIMES A DAY, (Reported) Travoprost (Travatan Z), 5 ML OP BID, (Reported) Scheduled PRN Codeine/Promethazine Hcl* (Promethazine-Codeine Syrup*), 5 ML ORAL Q6H PRN for For Cough, (Reported) Zolpidem Tartrate* (Ambien*), 10 MG PO HS PRN for INSOMNIA, (Reported) Miscellaneous Medications Fluticasone/Salmeterol (Advair Hfa 115-21 Mcg Inhaler), 2 PUFFS INH, (Reported) Unable to Obtain Medications (Unable To Obtain Meds), (Reported) Patient History Limited by: medical condition History Provided By: Patient, Medical Record, PMD Healthcare decision maker Resuscitation status Full Code Advanced Directive on File No Past Medical/Surgical History Past Medical/Surgical History: (1) Metabolic encephalopathy (2) Constipation (3) Anxiety (4) Epigastric abdominal pain (5) Pneumonia (6) Panic attack (7) Anemia of renal disease (8) Line sepsis associated with dialysis catheter (9) Acute bronchitis (10) Dental abscess (11) Acute respiratory failure with hypoxemia (12) Pleural effusion on right (13) Hypoparathyroidism (14) Hypotension (15) HTN (hypertension) (16) CHF (congestive heart failure) (17) Pulmonary embolism (18) ACS (acute coronary syndrome) (19) ESRD (end stage renal disease) on dialysis (20) Costochondritis (21) Pneumonia (22) Septic shock Review of Systems Psychiatric: Reports: prior hx, anxiety, depressed feelings, emotional problems Physical Exam General Appearance: alert, severe distress, agitated Last 24 Hour Vital Signs Date Time Temp Pulse Resp B/P (MAP) Pulse Ox O2 Delivery O2 Flow Rate FiO2 04/25/18 09:10 75 18 101/46 (64) 97 04/25/18 08:17 93/56 04/25/18 08:00 Nasal Cannula 4.0 04/25/18 08:00 91 18 93/56 (68) 97 04/25/18 07:00 74 17 91/29 (49) 97 04/25/18 07:00 100/53 04/25/18 06:35 95 Room Air 21 04/25/18 06:35 Room Air 21 04/25/18 06:30 75 18 101/46 (64) 97 04/25/18 06:00 96/53 04/25/18 06:00 74 18 93/46 (62) 97 04/25/18 05:30 70 18 90/29 (49) 97 04/25/18 05:00 73 18 96/29 (51) 97 04/25/18 05:00 96/29 04/25/18 04:30 73 19 90/46 (61) 99 04/25/18 04:00 98.6 79 19 101/41 (61) 97 04/25/18 04:00 79 04/25/18 04:00 101/41 04/25/18 04:00 Nasal Cannula 4.0 04/25/18 03:30 80 19 93/35 (54) 99 04/25/18 03:10 86/37 04/25/18 03:00 74 19 86/37 (53) 99 04/25/18 02:30 96 19 106/48 (67) 92 04/25/18 02:00 96/48 04/25/18 02:00 70 19 96/48 (64) 92 04/25/18 01:30 90 19 79/44 (56) 92 04/25/18 01:00 115/57 04/25/18 01:00 90 21 118/57 (77) 94 04/25/18 00:30 79 21 115/57 (76) 94 04/25/18 00:00 Nasal Cannula 4.0 04/25/18 00:00 80 04/25/18 00:00 98.0 80 20 105/54 (71) 95 04/25/18 00:00 105/54 04/24/18 23:30 76 16 124/48 (73) 97 04/24/18 23:00 76/40 04/24/18 23:00 74 19 76/40 (52) 97 04/24/18 22:30 79 20 86/29 (48) 97 04/24/18 22:00 73 16 115/60 (78) 98 04/24/18 21:53 104/52 04/24/18 21:30 84 29 102/30 (54) 98 04/24/18 21:00 72 29 102/41 (61) 98 04/24/18 20:50 130/44 04/24/18 20:30 75 19 130/44 (72) 93 04/24/18 20:00 Nasal Cannula 4.0 04/24/18 20:00 102/50 04/24/18 20:00 98.6 75 19 102/50 (67) 93 04/24/18 19:30 82 19 114/65 (81) 97 04/24/18 19:00 73 17 85/70 (75) 97 04/24/18 18:50 Room Air 21 04/24/18 18:50 95 Room Air 21 04/24/18 18:30 68 17 89/43 (58) 99 04/24/18 18:00 91/47 04/24/18 18:00 73 17 85/70 (75) 97 04/24/18 17:54 114/54 04/24/18 17:30 72 19 100/50 (67) 100 04/24/18 17:00 99/45 04/24/18 17:00 76 19 99/45 (63) 96 04/24/18 16:30 69 19 75/32 (46) 97 04/24/18 16:00 Nasal Cannula 4.0 04/24/18 16:00 98.7 89 21 106/58 (74) 93 04/24/18 16:00 75/24 04/24/18 16:00 106 04/24/18 15:46 118/68 04/24/18 15:30 93 18 101/59 (73) 94 04/24/18 15:00 101 17 118/68 (85) 100 04/24/18 14:30 100 19 106/54 (71) 95 04/24/18 14:00 112/54 04/24/18 14:00 86 18 112/54 (73) 100 04/24/18 13:30 90 20 98/48 (65) 95 Intake and Output 04/24/18 04/25/18 19:00 07:00 Intake Total 1001.657 ml 540.718 ml Output Total 100 ml 1 ml Balance 901.657 ml 539.718 ml Intake Oral 260 ml 60 ml IV Total 741.657 ml 480.718 ml Output Urine Total 0 ml 0 ml Stool Total 1 ml Emesis 100 ml # Bowel Movements 3 Laboratory Tests Test 04/25/18 03:00 04/25/18 04:11 Stool Occult Blood Negative (NEGATIVE) White Blood Count 6.3 K/UL (4.8-10.8) Red Blood Count 3.19 M/UL (4.20-5.40) L Hemoglobin 9.7 G/DL (12.0-16.0) L Hematocrit 29.4 % (37.0-47.0) L Mean Corpuscular Volume 92 FL (80-99) Mean Corpuscular Hemoglobin 30.4 PG (27.0-31.0) Mean Corpuscular Hemoglobin Concent 32.9 G/DL (32.0-36.0) Red Cell Distribution Width 14.8 % (11.6-14.8) Platelet Count 176 K/UL (150-450) Mean Platelet Volume 10.8 FL (6.5-10.1) H Neutrophils (%) (Auto) 71.9 % (45.0-75.0) Lymphocytes (%) (Auto) 15.5 % (20.0-45.0) L Monocytes (%) (Auto) 11.2 % (1.0-10.0) H Eosinophils (%) (Auto) 0.9 % (0.0-3.0) Basophils (%) (Auto) 0.5 % (0.0-2.0) Sodium Level 132 MMOL/L (136-145) L Potassium Level 4.2 MMOL/L (3.5-5.1) Chloride Level 91 MMOL/L (98-107) L Carbon Dioxide Level 28 MMOL/L (21-32) Anion Gap 13 mmol/L (5-15) Blood Urea Nitrogen 37 mg/dL (7-18) H Creatinine 9.2 MG/DL (0.55-1.30) H Estimat Glomerular Filtration Rate 5.5 mL/min (>60) Glucose Level 91 MG/DL (74-106) Calcium Level 9.3 MG/DL (8.5-10.1) Phosphorus Level 4.8 MG/DL (2.5-4.9) Magnesium Level 1.5 MG/DL (1.8-2.4) L Total Bilirubin 0.7 MG/DL (0.2-1.0) Aspartate Amino Transf (AST/SGOT) 15 U/L (15-37) Alanine Aminotransferase (ALT/SGPT) 10 U/L (12-78) L Alkaline Phosphatase 209 U/L (46-116) H C-Reactive Protein, Quantitative 27.7 mg/dL (0.00-0.90) H Pro-B-Type Natriuretic Peptide 5400 pg/mL (0-125) H Total Protein 7.1 G/DL (6.4-8.2) Albumin 2.9 G/DL (3.4-5.0) L Globulin 4.2 g/dL Albumin/Globulin Ratio 0.7 (1.0-2.7) L Height (Feet): 5 Height (Inches): 6.00 Weight (Pounds): 203 Medications Current Medications Medications (Trade) Dose Ordered Sig/Marcos Route PRN Reason Start Time Stop Time Status Last Admin Dose Admin Acetaminophen (Tylenol) 650 mg Q6H PRN ORAL Mild Pain/Temp > 100.5 04/12/18 17:45 05/12/18 17:44 04/21/18 12:44 Aspirin (ASA) 81 mg DAILY ORAL 04/17/18 09:00 05/17/18 08:59 04/25/18 08:28 Bisacodyl (Dulcolax) 5 mg BID ORAL 04/21/18 19:00 05/21/18 18:59 04/24/18 17:54 Chlorhexidine Gluconate (Nivia-Hex 2%) 1 applic DAILY@2000 TOPIC 04/13/18 20:00 05/13/18 19:59 04/24/18 20:16 Citalopram Hydrobromide (celeXA) 20 mg DAILY ORAL 04/25/18 12:00 05/25/18 11:59 Dopamine HCl/ Dextrose 250 ml @ 0 mls/hr Q24H IV 04/18/18 02:00 05/18/18 01:59 04/25/18 08:17 Doxycycline Hyclate 100 mg/ Dextrose 100 ml @ 100 mls/hr Q12HR IV 04/16/18 21:00 04/29/18 20:59 04/25/18 10:00 Guaifenesin (Robitussin) 300 mg Q6H PRN ORAL For Cough 04/14/18 17:00 05/14/18 16:59 04/16/18 02:07 Heparin Sodium (Porcine) (Heparin 5000 units/ml) 5,000 units EVERY 12 HOURS SUBQ 04/12/18 21:00 05/12/18 20:59 04/25/18 09:49 Hydromorphone HCl (Dilaudid) 1 mg Q4H PRN IVP For Pain 04/25/18 11:45 05/02/18 11:44 Lactulose (Cephulac) 10 gm THREE TIMES A DAY ORAL 04/24/18 09:00 05/24/18 08:59 04/24/18 17:54 Lorazepam (Ativan) 2 mg Q6H PRN ORAL For Anxiety 04/25/18 11:15 05/02/18 11:14 Meropenem 500 mg/ Sodium Chloride 50 ml @ 100 mls/hr Q24HRS IVPB 04/24/18 14:00 04/29/18 13:59 04/24/18 15:46 Midodrine (Pro-Amatine) 10 mg Q8HR ORAL 04/19/18 14:00 05/19/18 13:59 04/25/18 06:30 Mirtazapine (Remeron) 7.5 mg BEDTIME ORAL 04/25/18 21:00 05/25/18 20:59 Ondansetron HCl (Zofran) 4 mg Q4H PRN IVP Nausea & Vomiting 04/12/18 17:45 05/12/18 17:44 04/24/18 10:57 Pantoprazole (Protonix) 40 mg BID ORAL 04/25/18 18:00 05/12/18 17:59 Polyethylene Glycol (Miralax) 17 gm BEDTIME ORAL 04/21/18 21:00 05/21/18 20:59 04/24/18 21:20 Sevelamer Carbonate (Renvela) 2,400 mg THREE TIMES A DAY ORAL 04/23/18 13:00 05/13/18 08:59 04/25/18 08:17 Voriconazole (Vfend) 200 mg EVERY 12 HOURS ORAL 04/24/18 21:00 05/01/18 20:59 04/25/18 08:18 Assessment/Plan Problem List: (1) Anxiety ICD Codes: F41.9 - Anxiety disorder, unspecified SNOMED: 65943997 (2) Panic attack ICD Codes: F41.0 - Panic disorder [episodic paroxysmal anxiety] SNOMED: 367402460 Assessment/Plan cont current meds provided ro/Edwin Jackson MD Apr 25, 2018 13:13
--- NOTE | 2018-04-25 13:44 | Infectious Diseases Prog Note ---
Assessment/Plan Assessment/Plan ASSESSMENT: 1. sepsis, shock, pneumonia, CT chest noted, pressors, bradycardia, sputum culture with mold, ? aspergillus pna, ? other source for shock, abdominal pain, n/v - continue meropenem and doxycycline x 3 days for 14 day tx course - continue voriconazole - day # 7, d/w microbiology and ID of mold pending ( send out) - still requiring pressors - will recheck blood cultures, ? line infection, ? other shock source, ? adrenal insufficiency - hearing better off vancomycin - monitor labs and chest x-ray - mycoplasma IGM is negative, cannot obtain legionella urine antigen secondary to no urine output (HD) - icu care, remains on pressors, no vent - ? ct abdomen - defer to GI - d/w RN 2. End-stage renal disease, hemodialysis, has a right femoral line hemodialysis line and also left arm graft. 3. History of fistula in the past. 4. History of PermCath in the past 5. Anemia of chronic disease. 6. Hypertension - Blood pressure treatment per primary. 7. No history of diabetes mentioned. 8. Chronic kidney disease. 9. Obesity. 10. History of cholecystectomy. 11. History of parathyroidectomy. 12. History of carpal tunnel syndrome. 13. History of fractures, ORIF. 14. Past medical history noted. 15. Multiple drug allergies including cefazolin, Cipro, contrast media, gentamicin, ketamine, Levaquin and penicillin, she seems to tolerate carbapenems. 16. Social history is negative . 17. Family history is noncontributory. 18. MAR was noted. 19. Case discussed with RN. 20. Continue treatment per primary consultants. 21. Notes were noted and orders were entered. Subjective Constitutional: Denies: fever HEENT: Denies: congestion Respiratory: Denies: shortness of breath Cardiovascular: Denies: chest pain Gastrointestinal/Abdominal: Denies: nausea, vomiting, diarrhea Genitourinary: Reports: other - no mckinney Neurologic: Denies: headache Psychiatric: Denies: depression Skin: Denies: rash Hematologic: Denies: bleeding Musculoskeletal: Denies: pain Allergies: Coded Allergies: CEFAZOLIN (Verified Allergy, Unknown, 10/02/10) CIPROFLOXACIN (Verified Allergy, Unknown, 10/02/10) GENTAMICIN (Verified Allergy, Unknown, 10/02/10) KETAMINE (Verified Allergy, Unknown, 03/29/18) LEVOFLOXACIN (Verified Allergy, Unknown, 10/02/10) PENICILLINS (Verified Allergy, Unknown, ITCH, 10/02/10) Uncoded Allergies: CONTRAST MEDIA (Adverse Reaction, Mild, MILD ITCHING AFTER CONTRAST MEDIA, 04/30/17) Objective Vital Signs Last 24 Hour Vital Signs Date Time Temp Pulse Resp B/P (MAP) Pulse Ox O2 Delivery O2 Flow Rate FiO2 04/25/18 09:10 75 18 101/46 (64) 97 04/25/18 08:17 93/56 04/25/18 08:00 Nasal Cannula 4.0 04/25/18 08:00 91 18 93/56 (68) 97 04/25/18 07:00 74 17 91/29 (49) 97 04/25/18 07:00 100/53 04/25/18 06:35 95 Room Air 21 04/25/18 06:35 Room Air 21 04/25/18 06:30 75 18 101/46 (64) 97 04/25/18 06:00 96/53 04/25/18 06:00 74 18 93/46 (62) 97 04/25/18 05:30 70 18 90/29 (49) 97 04/25/18 05:00 73 18 96/29 (51) 97 04/25/18 05:00 96/29 04/25/18 04:30 73 19 90/46 (61) 99 04/25/18 04:00 98.6 79 19 101/41 (61) 97 04/25/18 04:00 79 04/25/18 04:00 101/41 04/25/18 04:00 Nasal Cannula 4.0 04/25/18 03:30 80 19 93/35 (54) 99 04/25/18 03:10 86/37 04/25/18 03:00 74 19 86/37 (53) 99 04/25/18 02:30 96 19 106/48 (67) 92 04/25/18 02:00 96/48 04/25/18 02:00 70 19 96/48 (64) 92 04/25/18 01:30 90 19 79/44 (56) 92 04/25/18 01:00 115/57 04/25/18 01:00 90 21 118/57 (77) 94 04/25/18 00:30 79 21 115/57 (76) 94 04/25/18 00:00 Nasal Cannula 4.0 04/25/18 00:00 80 04/25/18 00:00 98.0 80 20 105/54 (71) 95 04/25/18 00:00 105/54 04/24/18 23:30 76 16 124/48 (73) 97 04/24/18 23:00 76/40 04/24/18 23:00 74 19 76/40 (52) 97 04/24/18 22:30 79 20 86/29 (48) 97 04/24/18 22:00 73 16 115/60 (78) 98 04/24/18 21:53 104/52 04/24/18 21:30 84 29 102/30 (54) 98 04/24/18 21:00 72 29 102/41 (61) 98 04/24/18 20:50 130/44 04/24/18 20:30 75 19 130/44 (72) 93 04/24/18 20:00 Nasal Cannula 4.0 04/24/18 20:00 102/50 04/24/18 20:00 98.6 75 19 102/50 (67) 93 04/24/18 19:30 82 19 114/65 (81) 97 04/24/18 19:00 73 17 85/70 (75) 97 04/24/18 18:50 Room Air 21 04/24/18 18:50 95 Room Air 21 04/24/18 18:30 68 17 89/43 (58) 99 04/24/18 18:00 91/47 04/24/18 18:00 73 17 85/70 (75) 97 04/24/18 17:54 114/54 04/24/18 17:30 72 19 100/50 (67) 100 04/24/18 17:00 99/45 04/24/18 17:00 76 19 99/45 (63) 96 04/24/18 16:30 69 19 75/32 (46) 97 04/24/18 16:00 Nasal Cannula 4.0 04/24/18 16:00 98.7 89 21 106/58 (74) 93 04/24/18 16:00 75/24 04/24/18 16:00 106 04/24/18 15:46 118/68 04/24/18 15:30 93 18 101/59 (73) 94 04/24/18 15:00 101 17 118/68 (85) 100 04/24/18 14:30 100 19 106/54 (71) 95 04/24/18 14:00 112/54 04/24/18 14:00 86 18 112/54 (73) 100 Height (Feet): 5 Height (Inches): 6.00 Weight (Pounds): 203 General Appearance: no acute distress HEENT: normocephalic, atraumatic, anicteric, mucous membranes moist Respiratory/Chest: crackles/rales, rhonchi - bilaterally Cardiovascular: normal rate, regular rhythm, no gallop/murmur, no JVD Abdomen: normal bowel sounds, soft, non tender, no organomegaly, non distended Genitourinary: other - no mckinney Extremities: no cyanosis Skin: no rash Neurologic/Psychiatric: farm consultant 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 Follow-up after appropriate treatment recommended to ensure resolution. * Patchy opacities in the right upper lobe are also likely infectious in etiology. These obscure the previously described lung nodule. Attention to this area on follow-up recommended. * Prominent hilar and mediastinal lymph nodes, possibly reactive in etiology. * Small bilateral pleural effusions. * Large hiatal hernia * Dialysis catheter tip in the right atrium. Evidence of central venous occlusion with multiple collateral veins noted in the mediastinum. * Nonspecific calcifications in the bilateral breasts are correlation with most recent mammogram recommended. If none performed recently, then recommend follow- up screening mammogram. * Findings suggestive of renal osteodystrophy Chest x-ray - 04/14 - Findings: Heart size and mediastinal contours stable. Femoral approach dialysis catheter is again noted. Multiple surgical clips noted in the bilateral axilla. Portions of a stents again visualized in the right axilla. Multiple surgical clips noted in the right arm. Gas Utility Worker opacities in the left midlung peripherally. No evidence of pneumothorax. There is patchy opacity at the right base. Osseous structures stable. Calcifications in the right breast noted. Impression: Left-sided airspace opacities most concerning for pneumonia. There is slight interval increased density compared to prior exam which may be technical. 04/16/18 - chest x-ray - IMPRESSION: 1. Bilateral airspace opacities, most confluent in the left midlung field. Could be from consolidation/pneumonia. There is a broad differential. Follow to ensure resolution and exclude other mimics. 2. Suspect bilateral pleural effusions. 3. Vascular congestion. 04/20/18: Comparison: 04/16/2018 A single view chest radiograph was obtained. Findings: Interstitial edema again suspected mild in degree, slightly improved from the prior study. Heart size is stable. Large bore catheter projected over the right atrium entering from the IVC. Pleural-based density lateral aspect of the left lung again noted. Extensive surgical clips in the thoracic inlet and left axillary region noted. IMPRESSION: Some improvement in the initial edema. Other findings stable Chest x-ray - 04/23/18 - COMPARISON: Chest x-ray dated 04/19/18 FINDINGS: Single frontal view demonstrates a normal cardiomediastinal silhouette. Surgical clips in the neck base. Status post left axillary dissection. Central venous catheter terminating in the right atrium, may be extending from a femoral approach, grossly unchanged. Stable patchy opacity in the left mid lung zone. Increasing patchy opacity in bilateral lower lung zones, right greater the left. The visualized osseous structures are within normal limits. IMPRESSION: 1. Stable patchy opacity in the left mid lung zone. Increasing patchy opacity in bilateral lower lung zones, right greater the left. 2. Stable lines and postoperative findings as outlined above. Microbiology Date/Time Source Procedure Growth Status 04/12/18 11:35 Blood Blood Culture - Final NO GROWTH AFTER 5 DAYS Complete 04/21/18 04:00 Sputum Expectorated Gram Stain - Final Complete 04/21/18 04:00 Sputum Expectorated Sputum Culture - Final NORMAL UPPER RESPIRATORY ESTEPHANIE AT 48 ... Complete 04/19/18 02:00 Stool Stool Culture - Final NO SALMONELLA,SHIGELLA OR CAMPYLOBACT... Complete 04/12/18 12:10 Rectum - Final NO CARBAPENEM-RESISTANT ENTEROBACTERI... Complete Laboratory Tests Test 04/25/18 03:00 04/25/18 04:11 04/25/18 09:30 Stool Occult Blood Negative (NEGATIVE) Pending White Blood Count 6.3 K/UL (4.8-10.8) Red Blood Count 3.19 M/UL (4.20-5.40) L Hemoglobin 9.7 G/DL (12.0-16.0) L Hematocrit 29.4 % (37.0-47.0) L Mean Corpuscular Volume 92 FL (80-99) Mean Corpuscular Hemoglobin 30.4 PG (27.0-31.0) Mean Corpuscular Hemoglobin Concent 32.9 G/DL (32.0-36.0) Red Cell Distribution Width 14.8 % (11.6-14.8) Platelet Count 176 K/UL (150-450) Mean Platelet Volume 10.8 FL (6.5-10.1) H Neutrophils (%) (Auto) 71.9 % (45.0-75.0) Lymphocytes (%) (Auto) 15.5 % (20.0-45.0) L Monocytes (%) (Auto) 11.2 % (1.0-10.0) H Eosinophils (%) (Auto) 0.9 % (0.0-3.0) Basophils (%) (Auto) 0.5 % (0.0-2.0) Sodium Level 132 MMOL/L (136-145) L Potassium Level 4.2 MMOL/L (3.5-5.1) Chloride Level 91 MMOL/L (98-107) L Carbon Dioxide Level 28 MMOL/L (21-32) Anion Gap 13 mmol/L (5-15) Blood Urea Nitrogen 37 mg/dL (7-18) H Creatinine 9.2 MG/DL (0.55-1.30) H Estimat Glomerular Filtration Rate 5.5 mL/min (>60) Glucose Level 91 MG/DL (74-106) Calcium Level 9.3 MG/DL (8.5-10.1) Phosphorus Level 4.8 MG/DL (2.5-4.9) Magnesium Level 1.5 MG/DL (1.8-2.4) L Total Bilirubin 0.7 MG/DL (0.2-1.0) Aspartate Amino Transf (AST/SGOT) 15 U/L (15-37) Alanine Aminotransferase (ALT/SGPT) 10 U/L (12-78) L Alkaline Phosphatase 209 U/L (46-116) H C-Reactive Protein, Quantitative 27.7 mg/dL (0.00-0.90) H Pro-B-Type Natriuretic Peptide 5400 pg/mL (0-125) H Total Protein 7.1 G/DL (6.4-8.2) Albumin 2.9 G/DL (3.4-5.0) L Globulin 4.2 g/dL Albumin/Globulin Ratio 0.7 (1.0-2.7) L Current Medications Medications (Trade) Dose Ordered Sig/Marcos Route PRN Reason Start Time Stop Time Status Last Admin Dose Admin Acetaminophen (Tylenol) 650 mg Q6H PRN ORAL Mild Pain/Temp > 100.5 04/12/18 17:45 05/12/18 17:44 04/21/18 12:44 Aspirin (ASA) 81 mg DAILY ORAL 04/17/18 09:00 05/17/18 08:59 04/25/18 08:28 Bisacodyl (Dulcolax) 5 mg BID ORAL 04/21/18 19:00 05/21/18 18:59 04/24/18 17:54 Chlorhexidine Gluconate (Nivia-Hex 2%) 1 applic DAILY@2000 TOPIC 04/13/18 20:00 05/13/18 19:59 04/24/18 20:16 Citalopram Hydrobromide (celeXA) 20 mg DAILY ORAL 04/25/18 12:00 05/25/18 11:59 Dopamine HCl/ Dextrose 250 ml @ 0 mls/hr Q24H IV 04/18/18 02:00 05/18/18 01:59 04/25/18 08:17 Doxycycline Hyclate 100 mg/ Dextrose 100 ml @ 100 mls/hr Q12HR IV 04/16/18 21:00 04/29/18 20:59 04/25/18 10:00 Guaifenesin (Robitussin) 300 mg Q6H PRN ORAL For Cough 04/14/18 17:00 05/14/18 16:59 04/16/18 02:07 Heparin Sodium (Porcine) (Heparin 5000 units/ml) 5,000 units EVERY 12 HOURS SUBQ 04/12/18 21:00 05/12/18 20:59 04/25/18 09:49 Hydromorphone HCl (Dilaudid) 1 mg Q4H PRN IVP For Pain 04/25/18 11:45 05/02/18 11:44 Lactulose (Cephulac) 10 gm THREE TIMES A DAY ORAL 04/24/18 09:00 05/24/18 08:59 04/24/18 17:54 Lorazepam (Ativan) 2 mg Q6H PRN ORAL For Anxiety 04/25/18 11:15 05/02/18 11:14 Meropenem 500 mg/ Sodium Chloride 50 ml @ 100 mls/hr Q24HRS IVPB 04/24/18 14:00 04/29/18 13:59 04/24/18 15:46 Midodrine (Pro-Amatine) 10 mg Q8HR ORAL 04/19/18 14:00 05/19/18 13:59 04/25/18 06:30 Mirtazapine (Remeron) 7.5 mg BEDTIME ORAL 04/25/18 21:00 05/25/18 20:59 Ondansetron HCl (Zofran) 4 mg Q4H PRN IVP Nausea & Vomiting 04/12/18 17:45 05/12/18 17:44 04/24/18 10:57 Pantoprazole (Protonix) 40 mg BID ORAL 04/25/18 18:00 05/12/18 17:59 Polyethylene Glycol (Miralax) 17 gm BEDTIME ORAL 04/21/18 21:00 05/21/18 20:59 04/24/18 21:20 Sevelamer Carbonate (Renvela) 2,400 mg THREE TIMES A DAY ORAL 04/23/18 13:00 05/13/18 08:59 04/25/18 08:17 Voriconazole (Vfend) 200 mg EVERY 12 HOURS ORAL 04/24/18 21:00 05/01/18 20:59 04/25/18 08:18 Edgardo Mcbride MD Apr 25, 2018 13:44
--- NOTE | 2018-04-25 14:56 | NUR ---
P.T Note: late entry 1030 P.T evaluation completed and treatment initiated. Please refer to P.T evaluation for current functional status. Pt limited by generalized weakness and c/o not feeling well. Pt however was agreeable to participate in P.T evaluation. Pt currently required MIN A x 1 for bed mobility and transfers. Pt was able to stand for more than 1 min and was able to take 3-4 tiny steps using the FWW with MIN A X 1. BP 90/54 pre standing/walking , 106/64mmhg post sitting/standing/walking. Skilled P.T service is warranted to improve strength, activity tolerance and safety during stay. Recommend either home P.T or SNF for short term rehab at [place] depending on progress. Thank you for this referral.
--- NOTE | 2018-04-25 15:58 | Cardiac Electrophysiology PN ---
Assessment/Plan Assessment/Plan 1. Troponin leak, due to renal failure. Levels low and flat. The patient does not have any chest pain. 2. Septic shock. On Dopamine drip 12 mcg, midodrine 10 mg tid and iv Abx per Dr. Mcbride. 3. Bradycardia. Better on dopamine 4. Anterior T-wave inversion. No chest pain. EF 60% 5. End-stage renal disease, on hemodialysis, per Dr. Conner. 6. Diarrhea C Diff was negative 7. Sputum culture positive for Mold. FU ID DW RN Subjective Subjective On Dopamine drip 12 mcg .BP fell to 50s off Dopamine. Had HD Wednesday. No other events.Alert in NAD Objective Last 24 Hour Vital Signs Date Time Temp Pulse Resp B/P (MAP) Pulse Ox O2 Delivery O2 Flow Rate FiO2 04/25/18 15:01 73 18 82/44 (57) 97 04/25/18 14:38 69/31 04/25/18 14:30 79 17 92/66 (75) 97 04/25/18 14:00 Nasal Cannula 4.0 04/25/18 14:00 74 19 63/36 (45) 94 04/25/18 13:30 70 17 94/47 (63) 98 04/25/18 13:00 75 19 67/43 (51) 98 04/25/18 12:30 97.8 81 18 84/49 (61) 89 04/25/18 12:00 77 19 93/57 (69) 95 04/25/18 12:00 79 04/25/18 12:00 Nasal Cannula 4.0 04/25/18 11:30 75 18 78/39 (52) 98 04/25/18 11:00 78 17 69/35 (46) 98 04/25/18 10:30 65 17 104/65 (78) 100 04/25/18 10:00 65 17 104/54 (71) 100 04/25/18 09:30 75 18 101/46 (64) 97 04/25/18 09:10 75 18 101/46 (64) 97 04/25/18 08:30 98.0 91 18 93/56 (68) 95 04/25/18 08:17 93/56 04/25/18 08:00 91 04/25/18 08:00 Nasal Cannula 4.0 04/25/18 08:00 91 18 93/56 (68) 97 04/25/18 07:00 74 17 91/29 (49) 97 04/25/18 07:00 100/53 04/25/18 06:35 95 Room Air 21 04/25/18 06:35 Room Air 21 04/25/18 06:30 75 18 101/46 (64) 97 04/25/18 06:00 96/53 04/25/18 06:00 74 18 93/46 (62) 97 04/25/18 05:30 70 18 90/29 (49) 97 04/25/18 05:00 73 18 96/29 (51) 97 04/25/18 05:00 96/29 04/25/18 04:30 73 19 90/46 (61) 99 04/25/18 04:00 98.6 79 19 101/41 (61) 97 04/25/18 04:00 79 04/25/18 04:00 101/41 04/25/18 04:00 Nasal Cannula 4.0 04/25/18 03:30 80 19 93/35 (54) 99 04/25/18 03:10 86/37 04/25/18 03:00 74 19 86/37 (53) 99 04/25/18 02:30 96 19 106/48 (67) 92 04/25/18 02:00 96/48 04/25/18 02:00 70 19 96/48 (64) 92 04/25/18 01:30 90 19 79/44 (56) 92 04/25/18 01:00 115/57 04/25/18 01:00 90 21 118/57 (77) 94 04/25/18 00:30 79 21 115/57 (76) 94 04/25/18 00:00 Nasal Cannula 4.0 04/25/18 00:00 80 04/25/18 00:00 98.0 80 20 105/54 (71) 95 04/25/18 00:00 105/54 04/24/18 23:30 76 16 124/48 (73) 97 04/24/18 23:00 76/40 04/24/18 23:00 74 19 76/40 (52) 97 04/24/18 22:30 79 20 86/29 (48) 97 04/24/18 22:00 73 16 115/60 (78) 98 04/24/18 21:53 104/52 04/24/18 21:30 84 29 102/30 (54) 98 04/24/18 21:00 72 29 102/41 (61) 98 04/24/18 20:50 130/44 04/24/18 20:30 75 19 130/44 (72) 93 04/24/18 20:00 Nasal Cannula 4.0 04/24/18 20:00 102/50 04/24/18 20:00 98.6 75 19 102/50 (67) 93 04/24/18 19:30 82 19 114/65 (81) 97 04/24/18 19:00 73 17 85/70 (75) 97 04/24/18 18:50 Room Air 21 04/24/18 18:50 95 Room Air 21 04/24/18 18:30 68 17 89/43 (58) 99 04/24/18 18:00 91/47 04/24/18 18:00 73 17 85/70 (75) 97 04/24/18 17:54 114/54 04/24/18 17:30 72 19 100/50 (67) 100 04/24/18 17:00 99/45 04/24/18 17:00 76 19 99/45 (63) 96 04/24/18 16:30 69 19 75/32 (46) 97 04/24/18 16:00 Nasal Cannula 4.0 04/24/18 16:00 98.7 89 21 106/58 (74) 93 04/24/18 16:00 75/24 04/24/18 16:00 106 Intake and Output 04/24/18 04/25/18 19:00 07:00 Intake Total 1001.657 ml 540.718 ml Output Total 100 ml 1 ml Balance 901.657 ml 539.718 ml Intake Oral 260 ml 60 ml IV Total 741.657 ml 480.718 ml Output Urine Total 0 ml 0 ml Stool Total 1 ml Emesis 100 ml # Bowel Movements 3 Laboratory Tests Test 04/25/18 03:00 04/25/18 04:11 04/25/18 09:30 Stool Occult Blood Negative (NEGATIVE) Pending White Blood Count 6.3 K/UL (4.8-10.8) Red Blood Count 3.19 M/UL (4.20-5.40) L Hemoglobin 9.7 G/DL (12.0-16.0) L Hematocrit 29.4 % (37.0-47.0) L Mean Corpuscular Volume 92 FL (80-99) Mean Corpuscular Hemoglobin 30.4 PG (27.0-31.0) Mean Corpuscular Hemoglobin Concent 32.9 G/DL (32.0-36.0) Red Cell Distribution Width 14.8 % (11.6-14.8) Platelet Count 176 K/UL (150-450) Mean Platelet Volume 10.8 FL (6.5-10.1) H Neutrophils (%) (Auto) 71.9 % (45.0-75.0) Lymphocytes (%) (Auto) 15.5 % (20.0-45.0) L Monocytes (%) (Auto) 11.2 % (1.0-10.0) H Eosinophils (%) (Auto) 0.9 % (0.0-3.0) Basophils (%) (Auto) 0.5 % (0.0-2.0) Sodium Level 132 MMOL/L (136-145) L Potassium Level 4.2 MMOL/L (3.5-5.1) Chloride Level 91 MMOL/L (98-107) L Carbon Dioxide Level 28 MMOL/L (21-32) Anion Gap 13 mmol/L (5-15) Blood Urea Nitrogen 37 mg/dL (7-18) H Creatinine 9.2 MG/DL (0.55-1.30) H Estimat Glomerular Filtration Rate 5.5 mL/min (>60) Glucose Level 91 MG/DL (74-106) Calcium Level 9.3 MG/DL (8.5-10.1) Phosphorus Level 4.8 MG/DL (2.5-4.9) Magnesium Level 1.5 MG/DL (1.8-2.4) L Total Bilirubin 0.7 MG/DL (0.2-1.0) Aspartate Amino Transf (AST/SGOT) 15 U/L (15-37) Alanine Aminotransferase (ALT/SGPT) 10 U/L (12-78) L Alkaline Phosphatase 209 U/L (46-116) H C-Reactive Protein, Quantitative 27.7 mg/dL (0.00-0.90) H Pro-B-Type Natriuretic Peptide 5400 pg/mL (0-125) H Total Protein 7.1 G/DL (6.4-8.2) Albumin 2.9 G/DL (3.4-5.0) L Globulin 4.2 g/dL Albumin/Globulin Ratio 0.7 (1.0-2.7) L Objective HEAD AND NECK: No JVD. LUNGS: Decreased breath sounds. CARDIOVASCULAR: Regular S1 and S2 no GRM ABDOMEN: Soft. EXTREMITIES: No edema Tc Liang MD Apr 25, 2018 15:58
--- NOTE | 2018-04-25 16:30 | NUR ---
NURSE NOTES: Patient is awake and alert. Patient is on her phone talking to her friends and family. Patient opens eyes spontaneously and follows commands. Patient does not appear in any acute distress. Patient is being monitored on the elementary school science teacher. VSS. Patient is on 4L NC however she takes off the NC very often. Patient is anuric. Patient has a permacath that is running Dopa 12 mcgs. The monitor has been turned away from the patient to continue to DEC patient anxiety and she states that she feels better despite being hypotensive. Patient's BP numbers are not given and she is unable to focus on her BP numbers. Safety measures are in place with bed locked in the lowest position, side rails up x 3 with call light within reach. Will continue to monitor and follow plan of care.
--- NOTE | 2018-04-25 17:21 | NUR ---
CASE MANAGEMENT: REVIEW SI: ESRD ON HD . PNA T 98.0 HR 71 RR 18 BP 69/31 SAT 93% NC/4L H/H 9.7/29.4 IS: DOPAMINE IV Q24HR DOXYCYCLINE IV Q12HR MEROPENEM IV Q24HR MIDODRINE PO Q8HR HEPARIN SQ Q12HR PROTONIX PO BID HD PRN ICU STATUS DCP: PATIENT IS FROM HOME
[2018-04-25] MEDS ORDERED: Loperamide 2mg cap ORAL PRN (18:15)
--- NOTE | 2018-04-25 18:25 | Internal Med Progress Note ---
Subjective Date of Service: Apr 25, 2018 Physician Name Edward Harrell Attending Physician Ash Henley MD Current Medications Medications (Trade) Dose Ordered Sig/Marcos Route PRN Reason Start Time Stop Time Status Last Admin Dose Admin Acetaminophen (Tylenol) 650 mg Q6H PRN ORAL Mild Pain/Temp > 100.5 04/12/18 17:45 05/12/18 17:44 04/21/18 12:44 Aspirin (ASA) 81 mg DAILY ORAL 04/17/18 09:00 05/17/18 08:59 04/25/18 08:28 Bisacodyl (Dulcolax) 5 mg BID ORAL 04/21/18 19:00 05/21/18 18:59 04/24/18 17:54 Chlorhexidine Gluconate (Nivia-Hex 2%) 1 applic DAILY@2000 TOPIC 04/13/18 20:00 05/13/18 19:59 04/24/18 20:16 Citalopram Hydrobromide (celeXA) 20 mg DAILY ORAL 04/25/18 12:00 05/25/18 11:59 Dopamine HCl/ Dextrose 250 ml @ 0 mls/hr Q24H IV 04/18/18 02:00 05/18/18 01:59 04/25/18 14:38 Doxycycline Hyclate 100 mg/ Dextrose 100 ml @ 100 mls/hr Q12HR IV 04/16/18 21:00 04/29/18 20:59 04/25/18 10:00 Guaifenesin (Robitussin) 300 mg Q6H PRN ORAL For Cough 04/14/18 17:00 05/14/18 16:59 04/16/18 02:07 Heparin Sodium (Porcine) (Heparin 5000 units/ml) 5,000 units EVERY 12 HOURS SUBQ 04/12/18 21:00 05/12/18 20:59 04/25/18 09:49 Hydromorphone HCl (Dilaudid) 1 mg Q4H PRN IVP For Pain 04/25/18 11:45 05/02/18 11:44 Loperamide HCl (Imodium) 2 mg Q4H PRN ORAL Diarrhea 04/25/18 18:15 05/25/18 18:14 04/25/18 18:16 Lorazepam (Ativan) 2 mg Q6H PRN ORAL For Anxiety 04/25/18 11:15 05/02/18 11:14 Meropenem 500 mg/ Sodium Chloride 50 ml @ 100 mls/hr Q24HRS IVPB 04/24/18 14:00 04/29/18 13:59 04/25/18 14:38 Midodrine (Pro-Amatine) 10 mg Q8HR ORAL 04/19/18 14:00 05/19/18 13:59 04/25/18 14:38 Mirtazapine (Remeron) 7.5 mg BEDTIME ORAL 04/25/18 21:00 05/25/18 20:59 Ondansetron HCl (Zofran) 4 mg Q4H PRN IVP Nausea & Vomiting 04/12/18 17:45 05/12/18 17:44 04/24/18 10:57 Pantoprazole (Protonix) 40 mg BID ORAL 04/25/18 18:00 05/12/18 17:59 04/25/18 18:16 Polyethylene Glycol (Miralax) 17 gm BEDTIME ORAL 04/21/18 21:00 05/21/18 20:59 04/24/18 21:20 Sevelamer Carbonate (Renvela) 2,400 mg THREE TIMES A DAY ORAL 04/23/18 13:00 05/13/18 08:59 04/25/18 18:16 Voriconazole (Vfend) 200 mg EVERY 12 HOURS ORAL 04/24/18 21:00 05/01/18 20:59 04/25/18 08:18 Allergies: Coded Allergies: CEFAZOLIN (Verified Allergy, Unknown, 10/02/10) CIPROFLOXACIN (Verified Allergy, Unknown, 10/02/10) GENTAMICIN (Verified Allergy, Unknown, 10/02/10) KETAMINE (Verified Allergy, Unknown, 03/29/18) LEVOFLOXACIN (Verified Allergy, Unknown, 10/02/10) PENICILLINS (Verified Allergy, Unknown, ITCH, 10/02/10) Uncoded Allergies: CONTRAST MEDIA (Adverse Reaction, Mild, MILD ITCHING AFTER CONTRAST MEDIA, 04/30/17) ROS Limited/Unobtainable: No Constitutional: Reports: no symptoms HEENT: Reports: no symptoms Cardiovascular: Reports: no symptoms Respiratory: Reports: no symptoms Gastrointestinal/Abdominal: Reports: no symptoms Genitourinary: Reports: no symptoms Neurologic/Psychiatric: Reports: no symptoms Subjective 53 YO F admitted with shortness of breath. Now pneumonia. Cover for Int John- Dr Henley. ICU. Continues on dopamine. Objective Last Vital Signs Date Time Temp Pulse Resp B/P (MAP) Pulse Ox O2 Delivery O2 Flow Rate FiO2 04/25/18 17:58 65 19 85/41 (56) 100 04/25/18 16:00 Nasal Cannula 4.0 04/25/18 16:00 98.0 04/25/18 06:35 21 Laboratory Tests Test 04/25/18 03:00 04/25/18 04:11 04/25/18 09:30 Stool Occult Blood Negative (NEGATIVE) Pending White Blood Count 6.3 K/UL (4.8-10.8) Red Blood Count 3.19 M/UL (4.20-5.40) L Hemoglobin 9.7 G/DL (12.0-16.0) L Hematocrit 29.4 % (37.0-47.0) L Mean Corpuscular Volume 92 FL (80-99) Mean Corpuscular Hemoglobin 30.4 PG (27.0-31.0) Mean Corpuscular Hemoglobin Concent 32.9 G/DL (32.0-36.0) Red Cell Distribution Width 14.8 % (11.6-14.8) Platelet Count 176 K/UL (150-450) Mean Platelet Volume 10.8 FL (6.5-10.1) H Neutrophils (%) (Auto) 71.9 % (45.0-75.0) Lymphocytes (%) (Auto) 15.5 % (20.0-45.0) L Monocytes (%) (Auto) 11.2 % (1.0-10.0) H Eosinophils (%) (Auto) 0.9 % (0.0-3.0) Basophils (%) (Auto) 0.5 % (0.0-2.0) Sodium Level 132 MMOL/L (136-145) L Potassium Level 4.2 MMOL/L (3.5-5.1) Chloride Level 91 MMOL/L (98-107) L Carbon Dioxide Level 28 MMOL/L (21-32) Anion Gap 13 mmol/L (5-15) Blood Urea Nitrogen 37 mg/dL (7-18) H Creatinine 9.2 MG/DL (0.55-1.30) H Estimat Glomerular Filtration Rate 5.5 mL/min (>60) Glucose Level 91 MG/DL (74-106) Calcium Level 9.3 MG/DL (8.5-10.1) Phosphorus Level 4.8 MG/DL (2.5-4.9) Magnesium Level 1.5 MG/DL (1.8-2.4) L Total Bilirubin 0.7 MG/DL (0.2-1.0) Aspartate Amino Transf (AST/SGOT) 15 U/L (15-37) Alanine Aminotransferase (ALT/SGPT) 10 U/L (12-78) L Alkaline Phosphatase 209 U/L (46-116) H C-Reactive Protein, Quantitative 27.7 mg/dL (0.00-0.90) H Pro-B-Type Natriuretic Peptide 5400 pg/mL (0-125) H Total Protein 7.1 G/DL (6.4-8.2) Albumin 2.9 G/DL (3.4-5.0) L Globulin 4.2 g/dL Albumin/Globulin Ratio 0.7 (1.0-2.7) L Intake and Output 04/24/18 04/25/18 19:00 07:00 Intake Total 1001.657 ml 540.718 ml Output Total 100 ml 1 ml Balance 901.657 ml 539.718 ml Intake Oral 260 ml 60 ml IV Total 741.657 ml 480.718 ml Output Urine Total 0 ml 0 ml Stool Total 1 ml Emesis 100 ml # Bowel Movements 3 Objective Objective GENERAL: Awake, responsive, alert HEAD AND NECK: Pupils equal and reactive to light. Extraocular movements intact. Neck was supple. No JVD. LUNGS: Fair air entry. Poor respiratory effort. No wheeze or rhonchi. Decreased air in the bases. HEART: S1 and S2. Distant heart sounds. No murmur. ABDOMEN: Soft, nondistended, and nontender. Morbidly obese. EXTREMITIES: No cyanosis, clubbing, or edema. Right femoral area PermCath as well as left upper extremity AV fistula, functional. NEUROLOGIC: Cranial nerves II through XII are grossly intact. The patient is moving all the extremities spontaneously. Gait was not assessed due to the patient's status. PSYCHIATRIC: Mood and affect are intact. Assessment/Plan Assessment/Plan Assessment/Plan Assessment/Plan 1. Sepsis, most likely secondary to left upper lobe and, to a lesser extent, medial right lower lobe most likely representing multifocal pneumonia. 2. Hypotension, possible septic shock. 3. Pancytopenia with severe thrombocytopenia resolving. 4. End-stage renal disease, on hemodialysis. 5. Altered mental status, most likely toxic metabolic encephalopathy as a result of infection as well as uremia. 6. Anemia of chronic kidney disease. 7. Morbid obesity. 8. Bradycardia. 9. Diarrhea 10. Abdominal pain. PLAN: In ICU. follow up laboratory and cultures. Dr. Fredrick Conner from Nephrology consult; next hemodialysis 04/26/18. Dr. Mcbride from ID consult. Discussed with the family member, brother at the bedside. Abx:Meropenem, doxycycline and vfend per ID Code status is Full Code. DVT prophylaxis: heparin subcutaneous. continue Dopamine Drip CT of chest noted. Cortisol level Pending. C. Diff neg. Send stool for repeat Continue dopamine See GI consult; KUB=no obstruction advance diet Edward Harrell MD Apr 25, 2018 18:25
--- NOTE | 2018-04-25 18:52 | NUR ---
NURSE NOTES: Received report from WILLI Rand. Patient observed to be awake, alert however appears very anxious. Patient verbalizes needs, follows commands and opens eyes spontaneously. Patient reports that she is feeling as if she is having loose BMs again. Patient does not appear in any acute distress. It was reported that the patient became very anxious reporting that "something is wrong with her" and has different ailments to include focusing on her BP numbers. Patient is being monitored on the cardiac sonographer. Patient is on 4L NC however she takes off the NC very often. Patient is anuric and uses bedside commode for BMs. Patient has a permacath that is running Dopa 15 mcgs at this time to sustain her hypotension. Safety measures are in place with bed locked in the lowest position, side rails up x 3 with call light within reach. Will continue to monitor and follow plan of care. Addendum: 04/25/18 at 1857 by SIDNEY VELÁZQUEZ RN late charting for 07 this morning.
--- NOTE | 2018-04-25 19:36 | NUR ---
HAND-OFF: Report given to WILLI Rocha. VSS and patient is not in any acute distress.
--- NOTE | 2018-04-25 19:40 | NUR ---
NURSE NOTES: Received report from WILLI Cm. Patient resting in bed, opens eyes spontaneously and to voice. AA/OX4, able to make needs known. With 4L/NC, 02sat 98%. Abdomen round, non tender, bowel sounds present. No BM this shift. Anuric. Skin intact. IV access RT femoral PermaCath, running Dopamine @12mcg/kg/min. Fall precautions in place. HOB>30. Call light in reach. Bed locked and in low position, bed alarm on. Will continue to monitor.
[2018-04-25] MEDS: Dyna-Hex 2% Top Sol 2oz TOPIC SCH (20:59)
[2018-04-25] MEDS: Miralax 17gm pkt ORAL SCH (21:00)
--- NOTE | 2018-04-25 22:00 | NUR ---
NURSE NOTES: Pt's resting in bed, eyes closed, asleep, in no acute distress. Will continue to monitor
[2018-04-26] VITALS (71 sets, daily range): BP systolic 9–130; BP diastolic 24–72
--- NOTE | 2018-04-26 | NUR ---
NURSE NOTES: Pt's resting in bed, in no acute distress. VS stable. Will continue to monitor.
--- NOTE | 2018-04-26 02:00 | NUR ---
NURSE NOTES: Pt's resting in bed, in no acute distress. VS stable. Will continue to monitor.
[2018-04-26] MEDS: DOPamine 400mg/250ml 250 ML IV SCH ×3 (03:40→16:49)
--- NOTE | 2018-04-26 04:00 | NUR ---
NURSE NOTES: Pt's resting in bed, in no acute distress. VS stable. Will continue to monitor.
--- NOTE | 2018-04-26 06:00 | NUR ---
NURSE NOTES: Pt's resting in bed, in no acute distress. VS stable. Will continue to monitor.
[2018-04-26] MEDS: Midodrine 10mg tab ORAL SCH ×3 (06:30→21:22)
[2018-04-26 07:08] LABS: PHOSPHORUS 4.9 MG/DL (2.5-4.9)
[2018-04-26 07:12] LABS: BASOPHILS % (AUTO) 0.6 % (0.0-2.0); HEMATOCRIT 28.7 % (37.0-47.0); HEMOGLOBIN 9.4 G/DL (12.0-16.0); LYMPHOCYTES % (AUTO) 20.4 % (20.0-45.0); MEAN CORPUSCULAR VOLUME 91 FL (80-99); MONOCYTES % (AUTO) 11.1 % (1.0-10.0); PLATELET COUNT 174 K/UL (150-450); RED BLOOD COUNT 3.17 M/UL (4.20-5.40); WHITE BLOOD COUNT 4.8 K/UL (4.8-10.8)
[2018-04-26 07:26] LABS: ALANINE AMINOTRANSFERASE 8 U/L (12-78); ALBUMIN 2.9 G/DL (3.4-5.0); ALBUMIN/GLOBULIN RATIO 0.6 (1.0-2.7); ALKALINE PHOSPHATASE 213 U/L (46-116); ANION GAP 13 mmol/L (5-15); ASPARTATE AMINO TRANSFERASE 16 U/L (15-37); BILIRUBIN,TOTAL 0.7 MG/DL (0.2-1.0); BLOOD UREA NITROGEN 43 mg/dL (7-18); CALCIUM 9.9 MG/DL (8.5-10.1); CARBON DIOXIDE 27 MMOL/L (21-32); CHLORIDE 88 MMOL/L (98-107); CREATININE 10.3 MG/DL (0.55-1.30); POTASSIUM 4.1 MMOL/L (3.5-5.1); SODIUM 128 MMOL/L (136-145)
--- NOTE | 2018-04-26 07:35 | NUR ---
HAND-OFF: Report given to WILLI Ortiz.
--- NOTE | 2018-04-26 07:40 | NUR ---
NURSE NOTES: Report received from Eunice Yadav RN. Patient noted alert and oriented, no s/sx of distress, with oxygen saturation of 98% while on oxygen via NC at 4 LPM. Denies pain. SR on the monitor. SBP 90s-100s while on Dopamine at 12 mcg/kg/minute infusing at right femoral tunnelled hemodialysis catheter running on blue port. Patient has left upper arm AV fistula, noted thrill and bruit. Placed call light within reach. Placed bed on lowest position. For hemodialysis today.
--- NOTE | 2018-04-26 09:45 | Pulmonolgy Critical Care Note ---
Critical Care - Asmt/Plan Problems: (1) Septic shock (2) Pneumonia (3) Hypotension (4) ESRD (end stage renal disease) on dialysis (5) CHF (congestive heart failure) (6) Hypoparathyroidism Respiratory: monitor respiratory rate, adjust FIO2, CXR Cardiac: continue pressors, continue to monitor HR/BP Renal: F/U I&O, check electrolytes Infectious Disease: check cultures, continue antibiotics Gastrointestinal: continue feedings/current rate Endocrine: monitor blood sugar Hematologic: monitor H/H, transfuse if hgb<8.5 Neurologic: PRN Ativan, keep patient comfortable Affect: PRN ativan Prophylaxis: Protonix Disposition: keep in ICU Notes Reviewed: 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 fitter, cardio, renal Discussed with: nurses, consultants, case finisherproject manager retail - Objective Last 24 Hour Vital Signs Date Time Temp Pulse Resp B/P (MAP) Pulse Ox O2 Delivery O2 Flow Rate FiO2 04/26/18 09:15 68 17 79/38 (52) 100 04/26/18 09:00 74 17 83/51 (62) 97 04/26/18 08:30 75 17 90/53 (65) 97 04/26/18 08:00 98.3 74 17 106/52 (70) 98 04/26/18 07:25 Nasal Cannula 3.0 32 04/26/18 07:25 99 Nasal Cannula 3.0 32 04/26/18 07:00 98.3 83 17 102/48 (66) 93 04/26/18 06:30 82 17 101/51 (68) 93 04/26/18 06:00 80 21 113/45 (67) 91 04/26/18 06:00 101/51 04/26/18 05:30 81 17 89/46 (60) 94 04/26/18 05:00 88/50 04/26/18 05:00 76 20 97/53 (68) 96 04/26/18 04:30 75 19 112/56 (74) 95 04/26/18 04:00 Nasal Cannula 4.0 04/26/18 04:00 67 04/26/18 04:00 98.2 89 18 108/52 (70) 93 04/26/18 03:40 94/44 04/26/18 03:00 68 19 114/45 (68) 98 04/26/18 02:30 69 19 99/54 (69) 100 04/26/18 02:00 69 19 112/54 (73) 99 04/26/18 01:30 76 18 106/58 (74) 95 04/26/18 01:00 70 17 102/48 (66) 93 04/26/18 00:00 Nasal Cannula 4.0 04/26/18 00:00 65 04/26/18 00:00 98.0 69 21 82/48 (59) 95 04/25/18 23:30 70 19 90/40 (57) 95 04/25/18 23:00 73 21 93/43 (60) 94 04/25/18 22:30 67 18 88/35 (52) 96 04/25/18 22:00 68 18 95/34 (54) 94 04/25/18 21:30 71 16 89/45 (60) 96 04/25/18 21:09 100/55 04/25/18 21:07 80 21 101/57 (72) 95 04/25/18 21:00 88 19 101/57 (72) 90 04/25/18 20:30 70 18 103/57 (72) 97 04/25/18 20:19 Nasal Cannula 3.0 32 04/25/18 20:19 99 Nasal Cannula 3.0 32 04/25/18 20:00 98.0 68 18 80/37 (51) 99 04/25/18 20:00 68 04/25/18 20:00 Nasal Cannula 4.0 04/25/18 19:30 72 19 72/18 (36) 91 04/25/18 19:00 82 21 95/47 (63) 96 04/25/18 17:58 65 19 85/41 (56) 100 04/25/18 17:30 80 18 85/50 (62) 96 04/25/18 17:00 77 19 94/49 (64) 96 04/25/18 16:30 75 16 91/29 (49) 95 04/25/18 16:00 71 04/25/18 16:00 Nasal Cannula 4.0 04/25/18 16:00 98.0 71 18 99/37 (57) 96 04/25/18 15:30 85 18 88/42 (57) 93 04/25/18 15:01 73 18 82/44 (57) 97 04/25/18 14:38 69/31 1/7/19 14:30 79 17 92/66 (75) 97 04/25/18 14:00 Nasal Cannula 4.0 04/25/18 14:00 74 19 63/36 (45) 94 04/25/18 13:30 70 17 94/47 (63) 98 04/25/18 13:00 75 19 67/43 (51) 98 04/25/18 12:30 97.8 81 18 84/49 (61) 89 04/25/18 12:00 77 19 93/57 (69) 95 04/25/18 12:00 79 04/25/18 12:00 Nasal Cannula 4.0 04/25/18 11:30 75 18 78/39 (52) 98 04/25/18 11:00 78 17 69/35 (46) 98 04/25/18 10:30 65 17 104/65 (78) 100 04/25/18 10:00 65 17 104/54 (71) 100 Status: awake Condition: critical HEENT: atraumatic Lungs: clear Heart: HR/BP stable, regular Abdomen: soft, feeding tube Micro: Microbiology Date/Time Source Procedure Growth Status 04/24/18 15:15 Blood Blood Culture - Preliminary NO GROWTH AFTER 24 HOURS Resulted 04/24/18 15:10 Blood Blood Culture - Preliminary NO GROWTH AFTER 24 HOURS Resulted Critical Care - Subjective ROS Limited/Unobtainable: Yes Condition: critical EKG Rhythm: Sinus Rhythm FI02: 32 Sputum Amount: None I&O: Intake and Output 04/25/18 04/26/18 18:59 06:59 Intake Total 877.332 ml 610.250 ml Output Total 0 ml 0 ml Balance 877.332 ml 610.250 ml Intake Oral 60 ml IV Total 877.332 ml 550.250 ml Output Urine Total 0 ml 0 ml # Bowel Movements 2 1 CXR: no change Labs: Laboratory Tests Test 04/26/18 05:00 04/26/18 05:27 Stool Occult Blood Pending White Blood Count 4.8 K/UL (4.8-10.8) Red Blood Count 3.17 M/UL (4.20-5.40) L Hemoglobin 9.4 G/DL (12.0-16.0) L Hematocrit 28.7 % (37.0-47.0) L Mean Corpuscular Volume 91 FL (80-99) Mean Corpuscular Hemoglobin 29.7 PG (27.0-31.0) Mean Corpuscular Hemoglobin Concent 32.7 G/DL (32.0-36.0) Red Cell Distribution Width 15.0 % (11.6-14.8) H Platelet Count 174 K/UL (150-450) Mean Platelet Volume 8.5 FL (6.5-10.1) Neutrophils (%) (Auto) 66.0 % (45.0-75.0) Lymphocytes (%) (Auto) 20.4 % (20.0-45.0) Monocytes (%) (Auto) 11.1 % (1.0-10.0) H Eosinophils (%) (Auto) 2.0 % (0.0-3.0) Basophils (%) (Auto) 0.6 % (0.0-2.0) Sodium Level 128 MMOL/L (136-145) L Potassium Level 4.1 MMOL/L (3.5-5.1) Chloride Level 88 MMOL/L (98-107) L Carbon Dioxide Level 27 MMOL/L (21-32) Anion Gap 13 mmol/L (5-15) Blood Urea Nitrogen 43 mg/dL (7-18) H Creatinine 10.3 MG/DL (0.55-1.30) H Estimat Glomerular Filtration Rate 4.7 mL/min (>60) Glucose Level 80 MG/DL (74-106) Calcium Level 9.9 MG/DL (8.5-10.1) Phosphorus Level 4.9 MG/DL (2.5-4.9) Magnesium Level 2.0 MG/DL (1.8-2.4) Total Bilirubin 0.7 MG/DL (0.2-1.0) Aspartate Amino Transf (AST/SGOT) 16 U/L (15-37) Alanine Aminotransferase (ALT/SGPT) 8 U/L (12-78) L Alkaline Phosphatase 213 U/L (46-116) H Pro-B-Type Natriuretic Peptide 4747 pg/mL (0-125) H Total Protein 7.9 G/DL (6.4-8.2) Albumin 2.9 G/DL (3.4-5.0) L Globulin 5.0 g/dL Albumin/Globulin Ratio 0.6 (1.0-2.7) L Cuate Schmidt MD Apr 26, 2018 09:45
--- NOTE | 2018-04-26 10:00 | NUR ---
NURSE NOTES: Patient on going HD. No s/sx of distress. Patient noted low BP, asymptomatic, denies any pain. Patient still refused to eat at this time and requests to take medications after eating breakfast. Also HD nurse and patient requested to administer Heparin after HD to prevent bleeding.
--- NOTE | 2018-04-26 10:57 | Cardiac Electrophysiology PN ---
Assessment/Plan Assessment/Plan 1. Troponin leak, due to renal failure. Levels low and flat. No chest pain. 2. Septic shock. Still on Dopamine drip 12 mcg, midodrine 10 mg tid and iv Abx 3. Bradycardia. Better on dopamine 4. Anterior T-wave inversion. No chest pain. EF 60% 5. End-stage renal disease, on hemodialysis, per Dr. Conner. 6. Diarrhea C Diff was negative 7. Sputum culture positive for Mold. FU ID DW RN Subjective Subjective On Dopamine drip 12 mcg and HD done with 500cc fluid removal .BP fell to 50s off Dopamine. No other events.Alert in NAD Objective Last 24 Hour Vital Signs Date Time Temp Pulse Resp B/P (MAP) Pulse Ox O2 Delivery O2 Flow Rate FiO2 04/26/18 10:17 75/38 04/26/18 09:15 68 17 79/38 (52) 100 04/26/18 09:00 74 17 83/51 (62) 97 04/26/18 08:30 75 17 90/53 (65) 97 04/26/18 08:00 98.3 74 17 106/52 (70) 98 04/26/18 07:25 Nasal Cannula 3.0 32 04/26/18 07:25 99 Nasal Cannula 3.0 32 04/26/18 07:00 98.3 83 17 102/48 (66) 93 04/26/18 06:30 82 17 101/51 (68) 93 04/26/18 06:00 80 21 113/45 (67) 91 04/26/18 06:00 101/51 04/26/18 05:30 81 17 89/46 (60) 94 04/26/18 05:00 88/50 04/26/18 05:00 76 20 97/53 (68) 96 04/26/18 04:30 75 19 112/56 (74) 95 04/26/18 04:00 Nasal Cannula 4.0 04/26/18 04:00 67 04/26/18 04:00 98.2 89 18 108/52 (70) 93 04/26/18 03:40 94/44 04/26/18 03:00 68 19 114/45 (68) 98 04/26/18 02:30 69 19 99/54 (69) 100 04/26/18 02:00 69 19 112/54 (73) 99 04/26/18 01:30 76 18 106/58 (74) 95 04/26/18 01:00 70 17 102/48 (66) 93 04/26/18 00:00 Nasal Cannula 4.0 04/26/18 00:00 65 04/26/18 00:00 98.0 69 21 82/48 (59) 95 04/25/18 23:30 70 19 90/40 (57) 95 04/25/18 23:00 73 21 93/43 (60) 94 04/25/18 22:30 67 18 88/35 (52) 96 04/25/18 22:00 68 18 95/34 (54) 94 04/25/18 21:30 71 16 89/45 (60) 96 04/25/18 21:09 100/55 04/25/18 21:07 80 21 101/57 (72) 95 04/25/18 21:00 88 19 101/57 (72) 90 04/25/18 20:30 70 18 103/57 (72) 97 04/25/18 20:19 Nasal Cannula 3.0 32 04/25/18 20:19 99 Nasal Cannula 3.0 32 04/25/18 20:00 98.0 68 18 80/37 (51) 99 04/25/18 20:00 68 04/25/18 20:00 Nasal Cannula 4.0 04/25/18 19:30 72 19 72/18 (36) 91 04/25/18 19:00 82 21 95/47 (63) 96 04/25/18 17:58 65 19 85/41 (56) 100 04/25/18 17:30 80 18 85/50 (62) 96 04/25/18 17:00 77 19 94/49 (64) 96 04/25/18 16:30 75 16 91/29 (49) 95 04/25/18 16:00 71 04/25/18 16:00 Nasal Cannula 4.0 04/25/18 16:00 98.0 71 18 99/37 (57) 96 04/25/18 15:30 85 18 88/42 (57) 93 04/25/18 15:01 73 18 82/44 (57) 97 04/25/18 14:38 69/31 04/25/18 14:30 79 17 92/66 (75) 97 04/25/18 14:00 Nasal Cannula 4.0 04/25/18 14:00 74 19 63/36 (45) 94 04/25/18 13:30 70 17 94/47 (63) 98 04/25/18 13:00 75 19 67/43 (51) 98 04/25/18 12:30 97.8 81 18 84/49 (61) 89 04/25/18 12:00 77 19 93/57 (69) 95 04/25/18 12:00 79 04/25/18 12:00 Nasal Cannula 4.0 04/25/18 11:30 75 18 78/39 (52) 98 04/25/18 11:00 78 17 69/35 (46) 98 Intake and Output 04/25/18 04/26/18 18:59 06:59 Intake Total 877.332 ml 610.250 ml Output Total 0 ml 0 ml Balance 877.332 ml 610.250 ml Intake Oral 60 ml IV Total 877.332 ml 550.250 ml Output Urine Total 0 ml 0 ml # Bowel Movements 2 1 Laboratory Tests Test 04/26/18 05:00 04/26/18 05:27 Stool Occult Blood Pending White Blood Count 4.8 K/UL (4.8-10.8) Red Blood Count 3.17 M/UL (4.20-5.40) L Hemoglobin 9.4 G/DL (12.0-16.0) L Hematocrit 28.7 % (37.0-47.0) L Mean Corpuscular Volume 91 FL (80-99) Mean Corpuscular Hemoglobin 29.7 PG (27.0-31.0) Mean Corpuscular Hemoglobin Concent 32.7 G/DL (32.0-36.0) Red Cell Distribution Width 15.0 % (11.6-14.8) H Platelet Count 174 K/UL (150-450) Mean Platelet Volume 8.5 FL (6.5-10.1) Neutrophils (%) (Auto) 66.0 % (45.0-75.0) Lymphocytes (%) (Auto) 20.4 % (20.0-45.0) Monocytes (%) (Auto) 11.1 % (1.0-10.0) H Eosinophils (%) (Auto) 2.0 % (0.0-3.0) Basophils (%) (Auto) 0.6 % (0.0-2.0) Sodium Level 128 MMOL/L (136-145) L Potassium Level 4.1 MMOL/L (3.5-5.1) Chloride Level 88 MMOL/L (98-107) L Carbon Dioxide Level 27 MMOL/L (21-32) Anion Gap 13 mmol/L (5-15) Blood Urea Nitrogen 43 mg/dL (7-18) H Creatinine 10.3 MG/DL (0.55-1.30) H Estimat Glomerular Filtration Rate 4.7 mL/min (>60) Glucose Level 80 MG/DL (74-106) Calcium Level 9.9 MG/DL (8.5-10.1) Phosphorus Level 4.9 MG/DL (2.5-4.9) Magnesium Level 2.0 MG/DL (1.8-2.4) Total Bilirubin 0.7 MG/DL (0.2-1.0) Aspartate Amino Transf (AST/SGOT) 16 U/L (15-37) Alanine Aminotransferase (ALT/SGPT) 8 U/L (12-78) L Alkaline Phosphatase 213 U/L (46-116) H Pro-B-Type Natriuretic Peptide 4747 pg/mL (0-125) H Total Protein 7.9 G/DL (6.4-8.2) Albumin 2.9 G/DL (3.4-5.0) L Globulin 5.0 g/dL Albumin/Globulin Ratio 0.6 (1.0-2.7) L Microbiology Date/Time Source Procedure Growth Status 04/24/18 15:15 Blood Blood Culture - Preliminary NO GROWTH AFTER 24 HOURS Resulted 04/24/18 15:10 Blood Blood Culture - Preliminary NO GROWTH AFTER 24 HOURS Resulted Objective HEAD AND NECK: No JVD. LUNGS: Decreased breath sounds. CARDIOVASCULAR: Regular S1 and S2 no GRM ABDOMEN: Soft. EXTREMITIES: No edema Tc Liang MD Apr 26, 2018 10:57
[2018-04-26] MEDS: Aspirin Baby 81mg ORAL SCH (11:00)
[2018-04-26] MEDS: Citalopram Hydrobromide 10mg Tab ORAL SCH (11:01)
[2018-04-26] MEDS: Bisacodyl EC 5mg tab ORAL SCH ×2 (11:02→18:08)
[2018-04-26] MEDS: Heparin 5000 units/ml inj SUBQ SCH ×2 (11:06→21:25)
--- NOTE | 2018-04-26 11:42 | NUR ---
NURSE NOTES: Patient remained alert and oriented, no s/sx of distress. SR on monitor with heart rate:80s. HD nurse completed HD, still noted with low BP Titrating Dopamine, patient asymptomatic, denies chest pain, chest pressure nor dizziness. Seen on rounds by Dr. Conner and MD was made aware that patient only has dialysis catheter being used for medication. Last order for Dopamine until central line has been placed ordered on 04/13/18 but no other access noted until this time. MD ordered no need to insert new line and may use right femoral hemodialysis catheter for IV medications access: Dopamine, IV fluids and antibiotics.
--- NOTE | 2018-04-26 13:29 | Nephrology Progress Note ---
Assessment/Plan Problem List: (1) ESRD (end stage renal disease) on dialysis (2) Hypotension (3) Anemia of renal disease (4) Metabolic encephalopathy (5) Pneumonia Assessment ESRD on HD- HypoThyroidism- Periodic Hypotension- encephalopathic , metabolic- Plan bp still maintained on dopamin dialysis 2 next 04/26 add asa and isordil for rising Troponin add prn imodium for loose bm per orders midodrine per consultants antibiotics for pneumonia Cardiac advise for low HR Subjective ROS Limited/Unobtainable: No Constitutional: Reports: malaise Objective Objective Last 24 Hour Vital Signs Date Time Temp Pulse Resp B/P (MAP) Pulse Ox O2 Delivery O2 Flow Rate FiO2 04/26/18 12:30 75 17 92/35 (54) 100 04/26/18 12:15 74 17 90/45 (60) 100 04/26/18 12:00 Nasal Cannula 4.0 04/26/18 12:00 98.2 89 17 97/43 (61) 100 04/26/18 11:45 82 17 89/40 (56) 100 04/26/18 11:30 87 17 9/45 (33) 100 04/26/18 11:15 90 17 90/45 (60) 100 04/26/18 11:00 87 17 93/54 (67) 100 04/26/18 10:45 94 17 82/66 (71) 100 04/26/18 10:30 83 17 83/51 (62) 100 04/26/18 10:17 75/38 04/26/18 10:00 83 17 78/43 (55) 100 04/26/18 09:30 83 17 78/43 (55) 100 04/26/18 09:15 68 17 79/38 (52) 100 04/26/18 09:00 74 17 83/51 (62) 97 04/26/18 08:30 75 17 90/53 (65) 97 04/26/18 08:00 Nasal Cannula 4.0 04/26/18 08:00 84 04/26/18 08:00 98.3 74 17 106/52 (70) 98 04/26/18 07:25 Nasal Cannula 3.0 32 04/26/18 07:25 99 Nasal Cannula 3.0 32 04/26/18 07:00 98.3 83 17 102/48 (66) 93 04/26/18 06:30 82 17 101/51 (68) 93 04/26/18 06:00 80 21 113/45 (67) 91 04/26/18 06:00 101/51 04/26/18 05:30 81 17 89/46 (60) 94 04/26/18 05:00 88/50 04/26/18 05:00 76 20 97/53 (68) 96 04/26/18 04:30 75 19 112/56 (74) 95 04/26/18 04:00 Nasal Cannula 4.0 04/26/18 04:00 67 04/26/18 04:00 98.2 89 18 108/52 (70) 93 04/26/18 03:40 94/44 04/26/18 03:00 68 19 114/45 (68) 98 04/26/18 02:30 69 19 99/54 (69) 100 04/26/18 02:00 69 19 112/54 (73) 99 04/26/18 01:30 76 18 106/58 (74) 95 04/26/18 01:00 70 17 102/48 (66) 93 04/26/18 00:00 Nasal Cannula 4.0 04/26/18 00:00 65 04/26/18 00:00 98.0 69 21 82/48 (59) 95 04/25/18 23:30 70 19 90/40 (57) 95 04/25/18 23:00 73 21 93/43 (60) 94 04/25/18 22:30 67 18 88/35 (52) 96 04/25/18 22:00 68 18 95/34 (54) 94 04/25/18 21:30 71 16 89/45 (60) 96 04/25/18 21:09 100/55 04/25/18 21:07 80 21 101/57 (72) 95 04/25/18 21:00 88 19 101/57 (72) 90 04/25/18 20:30 70 18 103/57 (72) 97 04/25/18 20:19 Nasal Cannula 3.0 32 04/25/18 20:19 99 Nasal Cannula 3.0 32 04/25/18 20:00 98.0 68 18 80/37 (51) 99 04/25/18 20:00 68 04/25/18 20:00 Nasal Cannula 4.0 04/25/18 19:30 72 19 72/18 (36) 91 04/25/18 19:00 82 21 95/47 (63) 96 04/25/18 17:58 65 19 85/41 (56) 100 04/25/18 17:30 80 18 85/50 (62) 96 04/25/18 17:00 77 19 94/49 (64) 96 04/25/18 16:30 75 16 91/29 (49) 95 04/25/18 16:00 71 04/25/18 16:00 Nasal Cannula 4.0 04/25/18 16:00 98.0 71 18 99/37 (57) 96 04/25/18 15:30 85 18 88/42 (57) 93 04/25/18 15:01 73 18 82/44 (57) 97 04/25/18 14:38 69/31 04/25/18 14:30 79 17 92/66 (75) 97 04/25/18 14:00 Nasal Cannula 4.0 04/25/18 14:00 74 19 63/36 (45) 94 04/25/18 13:30 70 17 94/47 (63) 98 Intake and Output 04/25/18 04/26/18 19:00 07:00 Intake Total 867.176 ml 613.636 ml Output Total 0 ml 0 ml Balance 867.176 ml 613.636 ml Intake Oral 60 ml IV Total 867.176 ml 553.636 ml Output Urine Total 0 ml 0 ml # Bowel Movements 2 1 Laboratory Tests 04/26/18 05:00: Stool Occult Blood Negative 04/26/18 05:27: White Blood Count 4.8, Red Blood Count 3.17L, Hemoglobin 9.4L, Hematocrit 28.7L , Mean Corpuscular Volume 91, Mean Corpuscular Hemoglobin 29.7, Mean Corpuscular Hemoglobin Concent 32.7, Red Cell Distribution Width 15.0H, Platelet Count 174, Mean Platelet Volume 8.5, Neutrophils (%) (Auto) 66.0, Lymphocytes (%) (Auto) 20.4, Monocytes (%) (Auto) 11.1H, Eosinophils (%) (Auto) 2.0, Basophils (%) (Auto) 0.6, Sodium Level 128L, Potassium Level 4.1, Chloride Level 88L, Carbon Dioxide Level 27, Anion Gap 13, Blood Urea Nitrogen 43H, Creatinine 10.3H, Estimat Glomerular Filtration Rate 4.7, Glucose Level 80, Calcium Level 9.9, Phosphorus Level 4.9, Magnesium Level 2.0, Total Bilirubin 0.7, Aspartate Amino Transf (AST/SGOT) 16, Alanine Aminotransferase (ALT/SGPT) 8L, Alkaline Phosphatase 213H, Pro-B-Type Natriuretic Peptide 4747H, Total Protein 7.9, Albumin 2.9L, Globulin 5.0, Albumin/Globulin Ratio 0.6L Height (Feet): 5 Height (Inches): 6.00 Weight (Pounds): 204 General Appearance: no apparent distress Respiratory/Chest: decreased breath sounds Abdomen: soft Objective no change Fredrick Conner MD Apr 26, 2018 13:29
--- NOTE | 2018-04-26 13:36 | Diagnostic Imaging Report ---
Indication: Dyspnea Comparison: 04/23/2018 A single view chest radiograph was obtained. Findings: Interstitial edema has improved significantly since over the last few days. There is a mass versus infiltrate in the left midlung that persists. There is extensive surgical clips both axilla. Vascular stent right upper arm noted. Heart size is normal. IMPRESSION: Interval improvement in CHF. Mass versus infiltrate in the left midlung
--- NOTE | 2018-04-26 13:47 | NUR ---
NURSE NOTES: Called Dr. Schmidt and MD was made aware that patient has not been eating. Only ate a piece of [employer] bread today and only drunk 50 ml of water when taking medication this morning. Patient is requesting soup but dietary won't be able to provide until ordered by MD. Awaiting for call back. Patient was encouraged to eat but refused to eat lunch tray at this time.
--- NOTE | 2018-04-26 13:56 | NUR ---
NURSE NOTES: Patient was able to participated with PT. Noted improved BP of 130/72 during therapy. Patient has no s/sx of distress. Denies pain.
--- NOTE | 2018-04-26 14:24 | General Progress Note ---
Assessment/Plan Problem List: (1) Anxiety ICD Codes: F41.9 - Anxiety disorder, unspecified SNOMED: 01271767 (2) Panic attack ICD Codes: F41.0 - Panic disorder [episodic paroxysmal anxiety] SNOMED: 862526607 Status: stable, progressing Assessment/Plan cont current meds provided ro/st Subjective Neurologic/Psychiatric: Reports: anxiety, depressed, emotional problems Allergies: Coded Allergies: CEFAZOLIN (Verified Allergy, Unknown, 10/02/10) CIPROFLOXACIN (Verified Allergy, Unknown, 10/02/10) GENTAMICIN (Verified Allergy, Unknown, 10/02/10) KETAMINE (Verified Allergy, Unknown, 03/29/18) LEVOFLOXACIN (Verified Allergy, Unknown, 10/02/10) PENICILLINS (Verified Allergy, Unknown, ITCH, 10/02/10) Uncoded Allergies: CONTRAST MEDIA (Adverse Reaction, Mild, MILD ITCHING AFTER CONTRAST MEDIA, 04/30/17) Objective Last 24 Hour Vital Signs Date Time Temp Pulse Resp B/P (MAP) Pulse Ox O2 Delivery O2 Flow Rate FiO2 04/26/18 13:30 74 17 85/64 (71) 100 04/26/18 13:15 75 17 85/53 (64) 100 04/26/18 13:00 73 17 90/47 (61) 100 04/26/18 12:45 75 17 94/38 (56) 100 04/26/18 12:30 75 17 92/35 (54) 100 04/26/18 12:15 74 17 90/45 (60) 100 04/26/18 12:00 Nasal Cannula 4.0 04/26/18 12:00 98.2 89 17 97/43 (61) 100 04/26/18 11:45 82 17 89/40 (56) 100 04/26/18 11:30 87 17 9/45 (33) 100 04/26/18 11:15 90 17 90/45 (60) 100 04/26/18 11:00 87 17 93/54 (67) 100 04/26/18 10:45 94 17 82/66 (71) 100 04/26/18 10:30 83 17 83/51 (62) 100 04/26/18 10:17 75/38 04/26/18 10:00 83 17 78/43 (55) 100 04/26/18 09:30 83 17 78/43 (55) 100 04/26/18 09:15 68 17 79/38 (52) 100 04/26/18 09:00 74 17 83/51 (62) 97 04/26/18 08:30 75 17 90/53 (65) 97 04/26/18 08:00 Nasal Cannula 4.0 04/26/18 08:00 84 04/26/18 08:00 98.3 74 17 106/52 (70) 98 04/26/18 07:25 Nasal Cannula 3.0 32 04/26/18 07:25 99 Nasal Cannula 3.0 32 04/26/18 07:00 98.3 83 17 102/48 (66) 93 04/26/18 06:30 82 17 101/51 (68) 93 04/26/18 06:00 80 21 113/45 (67) 91 04/26/18 06:00 101/51 04/26/18 05:30 81 17 89/46 (60) 94 04/26/18 05:00 88/50 04/26/18 05:00 76 20 97/53 (68) 96 04/26/18 04:30 75 19 112/56 (74) 95 04/26/18 04:00 Nasal Cannula 4.0 04/26/18 04:00 67 04/26/18 04:00 98.2 89 18 108/52 (70) 93 04/26/18 03:40 94/44 04/26/18 03:00 68 19 114/45 (68) 98 04/26/18 02:30 69 19 99/54 (69) 100 04/26/18 02:00 69 19 112/54 (73) 99 04/26/18 01:30 76 18 106/58 (74) 95 04/26/18 01:00 70 17 102/48 (66) 93 04/26/18 00:00 Nasal Cannula 4.0 04/26/18 00:00 65 04/26/18 00:00 98.0 69 21 82/48 (59) 95 04/25/18 23:30 70 19 90/40 (57) 95 04/25/18 23:00 73 21 93/43 (60) 94 04/25/18 22:30 67 18 88/35 (52) 96 04/25/18 22:00 68 18 95/34 (54) 94 04/25/18 21:30 71 16 89/45 (60) 96 04/25/18 21:09 100/55 04/25/18 21:07 80 21 101/57 (72) 95 04/25/18 21:00 88 19 101/57 (72) 90 04/25/18 20:30 70 18 103/57 (72) 97 04/25/18 20:19 Nasal Cannula 3.0 32 04/25/18 20:19 99 Nasal Cannula 3.0 32 04/25/18 20:00 98.0 68 18 80/37 (51) 99 04/25/18 20:00 68 04/25/18 20:00 Nasal Cannula 4.0 04/25/18 19:30 72 19 72/18 (36) 91 04/25/18 19:00 82 21 95/47 (63) 96 04/25/18 17:58 65 19 85/41 (56) 100 04/25/18 17:30 80 18 85/50 (62) 96 04/25/18 17:00 77 19 94/49 (64) 96 04/25/18 16:30 75 16 91/29 (49) 95 04/25/18 16:00 71 04/25/18 16:00 Nasal Cannula 4.0 04/25/18 16:00 98.0 71 18 99/37 (57) 96 04/25/18 15:30 85 18 88/42 (57) 93 04/25/18 15:01 73 18 82/44 (57) 97 04/25/18 14:38 69/31 04/25/18 14:30 79 17 92/66 (75) 97 Intake and Output 04/25/18 04/26/18 19:00 07:00 Intake Total 867.176 ml 613.636 ml Output Total 0 ml 0 ml Balance 867.176 ml 613.636 ml Intake Oral 60 ml IV Total 867.176 ml 553.636 ml Output Urine Total 0 ml 0 ml # Bowel Movements 2 1 Laboratory Tests 04/26/18 05:00: Stool Occult Blood Negative 04/26/18 05:27: White Blood Count 4.8, Red Blood Count 3.17L, Hemoglobin 9.4L, Hematocrit 28.7L , Mean Corpuscular Volume 91, Mean Corpuscular Hemoglobin 29.7, Mean Corpuscular Hemoglobin Concent 32.7, Red Cell Distribution Width 15.0H, Platelet Count 174, Mean Platelet Volume 8.5, Neutrophils (%) (Auto) 66.0, Lymphocytes (%) (Auto) 20.4, Monocytes (%) (Auto) 11.1H, Eosinophils (%) (Auto) 2.0, Basophils (%) (Auto) 0.6, Sodium Level 128L, Potassium Level 4.1, Chloride Level 88L, Carbon Dioxide Level 27, Anion Gap 13, Blood Urea Nitrogen 43H, Creatinine 10.3H, Estimat Glomerular Filtration Rate 4.7, Glucose Level 80, Calcium Level 9.9, Phosphorus Level 4.9, Magnesium Level 2.0, Total Bilirubin 0.7, Aspartate Amino Transf (AST/SGOT) 16, Alanine Aminotransferase (ALT/SGPT) 8L, Alkaline Phosphatase 213H, Pro-B-Type Natriuretic Peptide 4747H, Total Protein 7.9, Albumin 2.9L, Globulin 5.0, Albumin/Globulin Ratio 0.6L Height (Feet): 5 Height (Inches): 6.00 Weight (Pounds): 204 General Appearance: alert, agitated Neurologic: oriented x 3, responsive, depressed affect Edwin Brown MD Apr 26, 2018 14:24
--- NOTE | 2018-04-26 16:00 | NUR ---
NURSE NOTES: Patient resting comfortably. BP slowly improving, slowly titrating Dopamine as ordered. Seen on rounds by Dr. Harrell and MD was made aware that patient has very poor PO intake, informed that patient currently on Remeron. Patient denies any form of pain. Remained SR on the monitor. Placed call light within reach. Placed bed on lowest position. Still encouraging to eat.
--- NOTE | 2018-04-26 16:35 | Internal Med Progress Note ---
Subjective Date of Service: Apr 26, 2018 Physician Name Edward Harrell Attending Physician Ash Henley MD Current Medications Medications (Trade) Dose Ordered Sig/Marcos Route PRN Reason Start Time Stop Time Status Last Admin Dose Admin Acetaminophen (Tylenol) 650 mg Q6H PRN ORAL Mild Pain/Temp > 100.5 04/12/18 17:45 05/12/18 17:44 04/26/18 05:00 Aspirin (ASA) 81 mg DAILY ORAL 04/17/18 09:00 05/17/18 08:59 04/26/18 11:00 Bisacodyl (Dulcolax) 5 mg BID ORAL 04/21/18 19:00 05/21/18 18:59 04/26/18 11:02 Chlorhexidine Gluconate (Nivia-Hex 2%) 1 applic DAILY@2000 TOPIC 04/13/18 20:00 05/13/18 19:59 04/25/18 20:59 Citalopram Hydrobromide (celeXA) 20 mg DAILY ORAL 04/25/18 12:00 05/25/18 11:59 04/26/18 11:01 Dopamine HCl/ Dextrose 250 ml @ 0 mls/hr Q24H IV 04/18/18 02:00 05/18/18 01:59 04/26/18 10:17 Doxycycline Hyclate 100 mg/ Dextrose 100 ml @ 100 mls/hr Q12HR IV 04/16/18 21:00 04/29/18 20:59 04/26/18 08:41 Guaifenesin (Robitussin) 300 mg Q6H PRN ORAL For Cough 04/14/18 17:00 05/14/18 16:59 04/16/18 02:07 Heparin Sodium (Porcine) (Heparin 5000 units/ml) 5,000 units EVERY 12 HOURS SUBQ 04/12/18 21:00 05/12/18 20:59 04/26/18 11:06 Hydromorphone HCl (Dilaudid) 1 mg Q4H PRN IVP For Pain 04/25/18 11:45 05/02/18 11:44 Loperamide HCl (Imodium) 2 mg Q4H PRN ORAL Diarrhea 04/25/18 18:15 05/25/18 18:14 04/25/18 18:16 Lorazepam (Ativan) 2 mg Q6H PRN ORAL For Anxiety 04/25/18 11:15 05/02/18 11:14 Meropenem 500 mg/ Sodium Chloride 50 ml @ 100 mls/hr Q24HRS IVPB 04/24/18 14:00 04/29/18 13:59 04/26/18 14:15 Midodrine (Pro-Amatine) 10 mg Q8HR ORAL 04/19/18 14:00 05/19/18 13:59 04/26/18 14:15 Mirtazapine (Remeron) 7.5 mg BEDTIME ORAL 04/25/18 21:00 05/25/18 20:59 04/25/18 20:59 Ondansetron HCl (Zofran) 4 mg Q4H PRN IVP Nausea & Vomiting 04/12/18 17:45 05/12/18 17:44 04/26/18 14:26 Pantoprazole (Protonix) 40 mg BID ORAL 04/25/18 18:00 05/12/18 17:59 04/26/18 11:00 Polyethylene Glycol (Miralax) 17 gm BEDTIME ORAL 04/21/18 21:00 05/21/18 20:59 04/24/18 21:20 Sevelamer Carbonate (Renvela) 2,400 mg THREE TIMES A DAY ORAL 04/23/18 13:00 05/13/18 08:59 04/26/18 11:00 Voriconazole (Vfend) 200 mg EVERY 12 HOURS ORAL 04/24/18 21:00 05/01/18 20:59 04/26/18 11:00 Allergies: Coded Allergies: CEFAZOLIN (Verified Allergy, Unknown, 10/02/10) CIPROFLOXACIN (Verified Allergy, Unknown, 10/02/10) GENTAMICIN (Verified Allergy, Unknown, 10/02/10) KETAMINE (Verified Allergy, Unknown, 03/29/18) LEVOFLOXACIN (Verified Allergy, Unknown, 10/02/10) PENICILLINS (Verified Allergy, Unknown, ITCH, 10/02/10) Uncoded Allergies: CONTRAST MEDIA (Adverse Reaction, Mild, MILD ITCHING AFTER CONTRAST MEDIA, 04/30/17) ROS Limited/Unobtainable: No Constitutional: Reports: no symptoms HEENT: Reports: no symptoms Cardiovascular: Reports: no symptoms Respiratory: Reports: no symptoms Gastrointestinal/Abdominal: Reports: no symptoms Genitourinary: Reports: no symptoms Neurologic/Psychiatric: Reports: no symptoms Subjective 53 YO F admitted with shortness of breath. Now pneumonia. Cover for Int John- Dr Henley. ICU. Continues on dopamine. Objective Last Vital Signs Date Time Temp Pulse Resp B/P (MAP) Pulse Ox O2 Delivery O2 Flow Rate FiO2 04/26/18 16:15 91 18 113/43 (66) 100 04/26/18 16:00 Nasal Cannula 4.0 04/26/18 16:00 98.3 04/26/18 07:25 32 Laboratory Tests Test 04/26/18 05:00 04/26/18 05:27 Stool Occult Blood Negative (NEGATIVE) White Blood Count 4.8 K/UL (4.8-10.8) Red Blood Count 3.17 M/UL (4.20-5.40) L Hemoglobin 9.4 G/DL (12.0-16.0) L Hematocrit 28.7 % (37.0-47.0) L Mean Corpuscular Volume 91 FL (80-99) Mean Corpuscular Hemoglobin 29.7 PG (27.0-31.0) Mean Corpuscular Hemoglobin Concent 32.7 G/DL (32.0-36.0) Red Cell Distribution Width 15.0 % (11.6-14.8) H Platelet Count 174 K/UL (150-450) Mean Platelet Volume 8.5 FL (6.5-10.1) Neutrophils (%) (Auto) 66.0 % (45.0-75.0) Lymphocytes (%) (Auto) 20.4 % (20.0-45.0) Monocytes (%) (Auto) 11.1 % (1.0-10.0) H Eosinophils (%) (Auto) 2.0 % (0.0-3.0) Basophils (%) (Auto) 0.6 % (0.0-2.0) Sodium Level 128 MMOL/L (136-145) L Potassium Level 4.1 MMOL/L (3.5-5.1) Chloride Level 88 MMOL/L (98-107) L Carbon Dioxide Level 27 MMOL/L (21-32) Anion Gap 13 mmol/L (5-15) Blood Urea Nitrogen 43 mg/dL (7-18) H Creatinine 10.3 MG/DL (0.55-1.30) H Estimat Glomerular Filtration Rate 4.7 mL/min (>60) Glucose Level 80 MG/DL (74-106) Calcium Level 9.9 MG/DL (8.5-10.1) Phosphorus Level 4.9 MG/DL (2.5-4.9) Magnesium Level 2.0 MG/DL (1.8-2.4) Total Bilirubin 0.7 MG/DL (0.2-1.0) Aspartate Amino Transf (AST/SGOT) 16 U/L (15-37) Alanine Aminotransferase (ALT/SGPT) 8 U/L (12-78) L Alkaline Phosphatase 213 U/L (46-116) H Pro-B-Type Natriuretic Peptide 4747 pg/mL (0-125) H Total Protein 7.9 G/DL (6.4-8.2) Albumin 2.9 G/DL (3.4-5.0) L Globulin 5.0 g/dL Albumin/Globulin Ratio 0.6 (1.0-2.7) L Microbiology Date/Time Source Procedure Growth Status 04/24/18 15:15 Blood Blood Culture - Preliminary NO GROWTH AFTER 24 HOURS Resulted 04/24/18 15:10 Blood Blood Culture - Preliminary NO GROWTH AFTER 24 HOURS Resulted Intake and Output 04/25/18 04/26/18 19:00 07:00 Intake Total 867.176 ml 613.636 ml Output Total 0 ml 0 ml Balance 867.176 ml 613.636 ml Intake Oral 60 ml IV Total 867.176 ml 553.636 ml Output Urine Total 0 ml 0 ml # Bowel Movements 2 1 Objective Objective GENERAL: Awake, responsive, alert HEAD AND NECK: Pupils equal and reactive to light. Extraocular movements intact. Neck was supple. No JVD. LUNGS: Fair air entry. Poor respiratory effort. No wheeze or rhonchi. Decreased air in the bases. HEART: S1 and S2. Distant heart sounds. No murmur. ABDOMEN: Soft, nondistended, and nontender. Morbidly obese. EXTREMITIES: No cyanosis, clubbing, or edema. Right femoral area PermCath as well as left upper extremity AV fistula, functional. NEUROLOGIC: Cranial nerves II through XII are grossly intact. The patient is moving all the extremities spontaneously. Gait was not assessed due to the patient's status. PSYCHIATRIC: Mood and affect are intact. Assessment/Plan Assessment/Plan Assessment/Plan Assessment/Plan 1. Sepsis, most likely secondary to left upper lobe and, to a lesser extent, medial right lower lobe most likely representing multifocal pneumonia. 2. Hypotension, possible septic shock. 3. Pancytopenia with severe thrombocytopenia resolving. 4. End-stage renal disease, on hemodialysis. 5. Altered mental status, most likely toxic metabolic encephalopathy as a result of infection as well as uremia. 6. Anemia of chronic kidney disease. 7. Morbid obesity. 8. Bradycardia. 9. Diarrhea 10. Abdominal pain. PLAN: In ICU. follow up laboratory and cultures. Dr. Fredrick Conner from Nephrology consult; Hemodialysis 04/26/18. Dr. Mcbride from ID consult. Discussed with the family member, brother at the bedside. Abx:Meropenem, doxycycline and vfend per ID Code status is Full Code. DVT prophylaxis: heparin subcutaneous. continue Dopamine Drip CT of chest noted. Cortisol level Pending. C. Diff neg. Send stool for repeat Continue dopamine See GI consult; KUB=no obstruction advance diet Edward Harrell MD Apr 26, 2018 16:35
[2018-04-26] MEDS ORDERED: Tubing IV Secondary IV ONE (17:09)
--- NOTE | 2018-04-26 18:00 | NUR ---
NURSE NOTES: Patient resting comfortably in bed. No s/sx of distress. Vital signs improved, SBP 90s-100s while on Dopamine at 9 mcg/kg/minute. Was able to get out of bed to bedside commode with 1 RN assist, tolerated activity well. Denies pain nor dizziness. Encouraged to eat. Still refused Sevelamer, verbalized understanding of indication, importance and effect of refusal. Changed beddings. Was able to have a very small BM, soft.
--- NOTE | 2018-04-26 19:18 | NUR ---
HAND-OFF: Report given to Maria Del Rosario Bright RN. Patient has no s/sx of distress. No s/sx of pain. SR on monitor. On Dopamine at 9mcg/kg/minute.
--- NOTE | 2018-04-26 19:35 | Infectious Diseases Prog Note ---
Assessment/Plan Assessment/Plan ASSESSMENT: 1. sepsis, shock, pneumonia, CT chest noted, pressors, bradycardia, sputum culture with mold, ? aspergillus pna, ? other source for shock, abdominal pain, n/v hx - continue meropenem and doxycycline x 2 days for 14 day tx course - continue voriconazole - day # 8, d/w microbiology and ID of mold pending ( send out) - still requiring pressors - ? other shock source, ? adrenal insufficiency, blood cultures negative - hearing better off vancomycin - monitor labs and chest x-ray - icu care, remains on pressors, no vent - chest x-ray stable - d/w RN 2. End-stage renal disease, hemodialysis, has a right femoral line hemodialysis line and also left arm graft. 3. History of fistula in the past. 4. History of PermCath in the past 5. Anemia of chronic disease. 6. Hypertension - Blood pressure treatment per primary. 7. No history of diabetes mentioned. 8. Chronic kidney disease. 9. Obesity. 10. History of cholecystectomy. 11. History of parathyroidectomy. 12. History of carpal tunnel syndrome. 13. History of fractures, ORIF. 14. Past medical history noted. 15. Multiple drug allergies including cefazolin, Cipro, contrast media, gentamicin, ketamine, Levaquin and penicillin, she seems to tolerate carbapenems. 16. Social history is negative . 17. Family history is noncontributory. 18. MAR was noted. 19. Case discussed with RN. 20. Continue treatment per primary consultants. 21. Notes were noted and orders were entered. Subjective Constitutional: Reports: other - + pressors; Denies: fever HEENT: Denies: congestion Respiratory: Denies: shortness of breath Cardiovascular: Denies: chest pain Gastrointestinal/Abdominal: Denies: nausea, vomiting, diarrhea Genitourinary: Reports: other - no mckinney Neurologic: Denies: headache Skin: Denies: rash Hematologic: Denies: bleeding Musculoskeletal: Denies: pain Allergies: Coded Allergies: CEFAZOLIN (Verified Allergy, Unknown, 10/02/10) CIPROFLOXACIN (Verified Allergy, Unknown, 10/02/10) GENTAMICIN (Verified Allergy, Unknown, 10/02/10) KETAMINE (Verified Allergy, Unknown, 03/29/18) LEVOFLOXACIN (Verified Allergy, Unknown, 10/02/10) PENICILLINS (Verified Allergy, Unknown, ITCH, 10/02/10) Uncoded Allergies: CONTRAST MEDIA (Adverse Reaction, Mild, MILD ITCHING AFTER CONTRAST MEDIA, 04/30/17) Objective Vital Signs Last 24 Hour Vital Signs Date Time Temp Pulse Resp B/P (MAP) Pulse Ox O2 Delivery O2 Flow Rate FiO2 04/26/18 18:45 75 18 86/66 (73) 98 04/26/18 18:30 73 18 91/40 (57) 98 04/26/18 18:15 74 18 92/26 (48) 98 04/26/18 18:00 67 18 92/26 (48) 98 04/26/18 18:00 108/34 04/26/18 17:45 71 18 108/34 (58) 98 04/26/18 17:30 77 18 103/24 (50) 98 04/26/18 17:15 69 18 103/24 (50) 98 04/26/18 17:00 72 18 106/30 (55) 98 04/26/18 17:00 99/21 04/26/18 16:49 113/43 04/26/18 16:45 73 18 113/39 (63) 98 04/26/18 16:30 79 18 105/48 (67) 98 04/26/18 16:15 91 18 113/43 (66) 100 04/26/18 16:00 78 04/26/18 16:00 105/48 04/26/18 16:00 Nasal Cannula 4.0 04/26/18 16:00 98.3 73 18 105/48 (67) 100 04/26/18 15:45 77 18 125/33 (63) 100 04/26/18 15:30 83 18 125/33 (63) 100 04/26/18 15:15 88 18 127/52 (77) 100 04/26/18 15:00 83 18 105/52 (69) 100 04/26/18 15:00 125/33 04/26/18 14:45 79 18 105/52 (69) 100 04/26/18 14:30 82 17 101/45 (63) 100 04/26/18 14:15 80 16 111/50 (70) 100 04/26/18 14:00 92 17 130/72 (91) 100 04/26/18 14:00 130/72 04/26/18 13:45 86 18 85/64 (71) 100 04/26/18 13:30 74 17 85/64 (71) 100 04/26/18 13:15 75 17 85/53 (64) 100 04/26/18 13:00 73 17 90/47 (61) 100 04/26/18 13:00 85/64 04/26/18 12:45 75 17 94/38 (56) 100 04/26/18 12:30 75 17 92/35 (54) 100 04/26/18 12:15 74 17 90/45 (60) 100 04/26/18 12:00 84 04/26/18 12:00 Nasal Cannula 4.0 04/26/18 12:00 97/43 04/26/18 12:00 98.2 89 17 97/43 (61) 100 04/26/18 11:45 82 17 89/40 (56) 100 04/26/18 11:30 87 17 9/45 (33) 100 04/26/18 11:15 90 17 90/45 (60) 100 04/26/18 11:00 90/45 04/26/18 11:00 87 17 93/54 (67) 100 04/26/18 10:45 94 17 82/66 (71) 100 04/26/18 10:30 83 17 83/51 (62) 100 04/26/18 10:17 75/38 04/26/18 10:00 83 17 78/43 (55) 100 04/26/18 10:00 82/66 04/26/18 09:30 83 17 78/43 (55) 100 04/26/18 09:15 68 17 79/38 (52) 100 04/26/18 09:00 79/38 04/26/18 09:00 74 17 83/51 (62) 97 04/26/18 08:30 75 17 90/53 (65) 97 04/26/18 08:00 Nasal Cannula 4.0 04/26/18 08:00 84 04/26/18 08:00 90/53 04/26/18 08:00 98.3 74 17 106/52 (70) 98 04/26/18 07:25 Nasal Cannula 3.0 32 04/26/18 07:25 99 Nasal Cannula 3.0 32 04/26/18 07:00 98.3 83 17 102/48 (66) 93 04/26/18 06:30 82 17 101/51 (68) 93 04/26/18 06:00 80 21 113/45 (67) 91 04/26/18 06:00 101/51 04/26/18 05:30 81 17 89/46 (60) 94 04/26/18 05:00 88/50 04/26/18 05:00 76 20 97/53 (68) 96 04/26/18 04:30 75 19 112/56 (74) 95 04/26/18 04:00 Nasal Cannula 4.0 04/26/18 04:00 67 04/26/18 04:00 98.2 89 18 108/52 (70) 93 04/26/18 03:40 94/44 04/26/18 03:00 68 19 114/45 (68) 98 04/26/18 02:30 69 19 99/54 (69) 100 04/26/18 02:00 69 19 112/54 (73) 99 04/26/18 01:30 76 18 106/58 (74) 95 04/26/18 01:00 70 17 102/48 (66) 93 04/26/18 00:00 Nasal Cannula 4.0 04/26/18 00:00 65 04/26/18 00:00 98.0 69 21 82/48 (59) 95 04/25/18 23:30 70 19 90/40 (57) 95 04/25/18 23:00 73 21 93/43 (60) 94 04/25/18 22:30 67 18 88/35 (52) 96 04/25/18 22:00 68 18 95/34 (54) 94 04/25/18 21:30 71 16 89/45 (60) 96 04/25/18 21:09 100/55 04/25/18 21:07 80 21 101/57 (72) 95 04/25/18 21:00 88 19 101/57 (72) 90 04/25/18 20:30 70 18 103/57 (72) 97 04/25/18 20:19 Nasal Cannula 3.0 32 04/25/18 20:19 99 Nasal Cannula 3.0 32 04/25/18 20:00 98.0 68 18 80/37 (51) 99 04/25/18 20:00 68 04/25/18 20:00 Nasal Cannula 4.0 Height (Feet): 5 Height (Inches): 6.00 Weight (Pounds): 204 General Appearance: no acute distress HEENT: normocephalic, atraumatic, anicteric, mucous membranes moist Respiratory/Chest: crackles/rales, rhonchi - bilaterally Cardiovascular: normal rate, regular rhythm Abdomen: normal bowel sounds, soft, non tender, no organomegaly, non distended Genitourinary: other - no mckinney, no cva pain Extremities: no cyanosis Skin: no rash, other - + edema Neurologic/Psychiatric: traveling auditor II-XII grossly normal, alert, oriented x 3, responsive Lymphatic: no neck adenopathy Musculoskeletal: no effusion Objective CT Chest: IMPRESSION: * Dense consolidations with air bronchograms noted in the left upper lobe and, to a lesser extent, medial right lower lobe most likely representing multifocal pneumonia. Follow-up after appropriate treatment recommended to ensure resolution. * Patchy opacities in the right upper lobe are also likely infectious in etiology. These obscure the previously described lung nodule. Attention to this area on follow-up recommended. * Prominent hilar and mediastinal lymph nodes, possibly reactive in etiology. * Small bilateral pleural effusions. * Large hiatal hernia * Dialysis catheter tip in the right atrium. Evidence of central venous occlusion with multiple collateral veins noted in the mediastinum. * Nonspecific calcifications in the bilateral breasts are correlation with most recent mammogram recommended. If none performed recently, then recommend follow- up screening mammogram. * Findings suggestive of renal osteodystrophy Chest x-ray - 04/14 - Findings: Heart size and mediastinal contours stable. Femoral approach dialysis catheter is again noted. Multiple surgical clips noted in the bilateral axilla. Portions of a stents again visualized in the right axilla. Multiple surgical clips noted in the right arm. Computerized [employer] opacities in the left midlung peripherally. No evidence of pneumothorax. There is patchy opacity at the right base. Osseous structures stable. Calcifications in the right breast noted. Impression: Left-sided airspace opacities most concerning for pneumonia. There is slight interval increased density compared to prior exam which may be technical. 04/16/18 - chest x-ray - IMPRESSION: 1. Bilateral airspace opacities, most confluent in the left midlung field. Could be from consolidation/pneumonia. There is a broad differential. Follow to ensure resolution and exclude other mimics. 2. Suspect bilateral pleural effusions. 3. Vascular congestion. 04/20/18: Comparison: 04/16/2018 A single view chest radiograph was obtained. Findings: Interstitial edema again suspected mild in degree, slightly improved from the prior study. Heart size is stable. Large bore catheter projected over the right atrium entering from the IVC. Pleural-based density lateral aspect of the left lung again noted. Extensive surgical clips in the thoracic inlet and left axillary region noted. IMPRESSION: Some improvement in the initial edema. Other findings stable Chest x-ray - 04/23/18 - COMPARISON: Chest x-ray dated 04/19/18 FINDINGS: Single frontal view demonstrates a normal cardiomediastinal silhouette. Surgical clips in the neck base. Status post left axillary dissection. Central venous catheter terminating in the right atrium, may be extending from a femoral approach, grossly unchanged. Stable patchy opacity in the left mid lung zone. Increasing patchy opacity in bilateral lower lung zones, right greater the left. The visualized osseous structures are within normal limits. IMPRESSION: 1. Stable patchy opacity in the left mid lung zone. Increasing patchy opacity in bilateral lower lung zones, right greater the left. 2. Stable lines and postoperative findings as outlined above. Chest x-ray - 04/26/18 - Interstitial edema has improved significantly since over the last few days. There is a mass versus infiltrate in the left midlung that persists. There is extensive surgical clips both axilla. Vascular stent right upper arm noted. Heart size is normal. IMPRESSION: Interval improvement in CHF. Mass versus infiltrate in the left midlung Microbiology Date/Time Source Procedure Growth Status 04/24/18 15:15 Blood Blood Culture - Preliminary NO GROWTH AFTER 24 HOURS Resulted 04/21/18 04:00 Sputum Expectorated Gram Stain - Final Complete 04/21/18 04:00 Sputum Expectorated Sputum Culture - Final NORMAL UPPER RESPIRATORY ESTEPHANIE AT 48 ... Complete 04/19/18 02:00 Stool Stool Culture - Final NO SALMONELLA,SHIGELLA OR CAMPYLOBACT... Complete 04/12/18 12:10 Rectum - Final NO CARBAPENEM-RESISTANT ENTEROBACTERI... Complete Microbiology Date/Time Source Procedure Growth Status 04/24/18 15:15 Blood Blood Culture - Preliminary NO GROWTH AFTER 24 HOURS Resulted 04/24/18 15:10 Blood Blood Culture - Preliminary NO GROWTH AFTER 24 HOURS Resulted Laboratory Tests Test 04/26/18 05:00 04/26/18 05:27 Stool Occult Blood Negative (NEGATIVE) White Blood Count 4.8 K/UL (4.8-10.8) Red Blood Count 3.17 M/UL (4.20-5.40) L Hemoglobin 9.4 G/DL (12.0-16.0) L Hematocrit 28.7 % (37.0-47.0) L Mean Corpuscular Volume 91 FL (80-99) Mean Corpuscular Hemoglobin 29.7 PG (27.0-31.0) Mean Corpuscular Hemoglobin Concent 32.7 G/DL (32.0-36.0) Red Cell Distribution Width 15.0 % (11.6-14.8) H Platelet Count 174 K/UL (150-450) Mean Platelet Volume 8.5 FL (6.5-10.1) Neutrophils (%) (Auto) 66.0 % (45.0-75.0) Lymphocytes (%) (Auto) 20.4 % (20.0-45.0) Monocytes (%) (Auto) 11.1 % (1.0-10.0) H Eosinophils (%) (Auto) 2.0 % (0.0-3.0) Basophils (%) (Auto) 0.6 % (0.0-2.0) Sodium Level 128 MMOL/L (136-145) L Potassium Level 4.1 MMOL/L (3.5-5.1) Chloride Level 88 MMOL/L (98-107) L Carbon Dioxide Level 27 MMOL/L (21-32) Anion Gap 13 mmol/L (5-15) Blood Urea Nitrogen 43 mg/dL (7-18) H Creatinine 10.3 MG/DL (0.55-1.30) H Estimat Glomerular Filtration Rate 4.7 mL/min (>60) Glucose Level 80 MG/DL (74-106) Calcium Level 9.9 MG/DL (8.5-10.1) Phosphorus Level 4.9 MG/DL (2.5-4.9) Magnesium Level 2.0 MG/DL (1.8-2.4) Total Bilirubin 0.7 MG/DL (0.2-1.0) Aspartate Amino Transf (AST/SGOT) 16 U/L (15-37) Alanine Aminotransferase (ALT/SGPT) 8 U/L (12-78) L Alkaline Phosphatase 213 U/L (46-116) H Pro-B-Type Natriuretic Peptide 4747 pg/mL (0-125) H Total Protein 7.9 G/DL (6.4-8.2) Albumin 2.9 G/DL (3.4-5.0) L Globulin 5.0 g/dL Albumin/Globulin Ratio 0.6 (1.0-2.7) L Current Medications Medications (Trade) Dose Ordered Sig/Marcos Route PRN Reason Start Time Stop Time Status Last Admin Dose Admin Acetaminophen (Tylenol) 650 mg Q6H PRN ORAL Mild Pain/Temp > 100.5 04/12/18 17:45 05/12/18 17:44 04/26/18 05:00 Aspirin (ASA) 81 mg DAILY ORAL 04/17/18 09:00 05/17/18 08:59 04/26/18 11:00 Bisacodyl (Dulcolax) 5 mg BID ORAL 04/21/18 19:00 05/21/18 18:59 04/26/18 18:08 Chlorhexidine Gluconate (Nivia-Hex 2%) 1 applic DAILY@2000 TOPIC 04/13/18 20:00 05/13/18 19:59 04/25/18 20:59 Citalopram Hydrobromide (celeXA) 20 mg DAILY ORAL 04/25/18 12:00 05/25/18 11:59 04/26/18 11:01 Dopamine HCl/ Dextrose 250 ml @ 0 mls/hr Q24H IV 04/18/18 02:00 05/18/18 01:59 04/26/18 16:49 Doxycycline Hyclate 100 mg/ Dextrose 100 ml @ 100 mls/hr Q12HR IV 04/16/18 21:00 04/29/18 20:59 04/26/18 08:41 Guaifenesin (Robitussin) 300 mg Q6H PRN ORAL For Cough 04/14/18 17:00 05/14/18 16:59 04/16/18 02:07 Heparin Sodium (Porcine) (Heparin 5000 units/ml) 5,000 units EVERY 12 HOURS SUBQ 04/12/18 21:00 05/12/18 20:59 1/8/19 11:06 Hydromorphone HCl (Dilaudid) 1 mg Q4H PRN IVP For Pain 04/25/18 11:45 05/02/18 11:44 Loperamide HCl (Imodium) 2 mg Q4H PRN ORAL Diarrhea 04/25/18 18:15 05/25/18 18:14 04/25/18 18:16 Lorazepam (Ativan) 2 mg Q6H PRN ORAL For Anxiety 04/25/18 11:15 05/02/18 11:14 Meropenem 500 mg/ Sodium Chloride 50 ml @ 100 mls/hr Q24HRS IVPB 04/24/18 14:00 04/29/18 13:59 04/26/18 14:15 Midodrine (Pro-Amatine) 10 mg Q8HR ORAL 04/19/18 14:00 05/19/18 13:59 04/26/18 14:15 Mirtazapine (Remeron) 7.5 mg BEDTIME ORAL 04/25/18 21:00 05/25/18 20:59 04/25/18 20:59 Ondansetron HCl (Zofran) 4 mg Q4H PRN IVP Nausea & Vomiting 04/12/18 17:45 05/12/18 17:44 04/26/18 14:26 Pantoprazole (Protonix) 40 mg BID ORAL 04/25/18 18:00 05/12/18 17:59 04/26/18 18:08 Polyethylene Glycol (Miralax) 17 gm BEDTIME ORAL 04/21/18 21:00 05/21/18 20:59 04/24/18 21:20 Sevelamer Carbonate (Renvela) 2,400 mg THREE TIMES A DAY ORAL 04/23/18 13:00 05/13/18 08:59 04/26/18 11:00 Voriconazole (Vfend) 200 mg EVERY 12 HOURS ORAL 04/24/18 21:00 05/01/18 20:59 04/26/18 11:00 Edgadro Mcbride MD Apr 26, 2018 19:35
--- NOTE | 2018-04-26 20:00 | NUR ---
NURSE NOTES: pt awake and alert no acute distress note reposition self on dopamiine drip at 9mcg/kg/min
[2018-04-26] MEDS: Dyna-Hex 2% Top Sol 2oz TOPIC SCH (20:06)
[2018-04-26] MEDS: Miralax 17gm pkt ORAL SCH (21:21)
[2018-04-26] MEDS: HYDROmorphone 1mg/ml Carpuject IVP PRN (21:57)
--- NOTE | 2018-04-26 22:00 | NUR ---
NURSE NOTES: c/o off abdominal pain and medicated with diludid 1 mg ivp with relief
[2018-04-27] VITALS (54 sets, daily range): BP systolic 52–121; BP diastolic 11–76
--- NOTE | 2018-04-27 | NUR ---
NURSE NOTES: asleep no acute distress noted no c/o pain
[2018-04-27] MEDS: DOPamine 400mg/250ml 250 ML IV SCH ×3 (01:29→18:24)
--- NOTE | 2018-04-27 02:00 | NUR ---
NURSE NOTES: unable totirate dopo drip bp 50/12 dopa drip >10mcg /kg/min with bp 95/50
--- NOTE | 2018-04-27 04:00 | NUR ---
NURSE NOTES: asleep sbp -70-93/50-60 responsive verbally refuse bed bath
[2018-04-27] MEDS: Midodrine 10mg tab ORAL SCH ×3 (05:59→22:20)
--- NOTE | 2018-04-27 06:00 | NUR ---
NURSE NOTES: asleep dopa drip at 10mcg/kg/min
--- NOTE | 2018-04-27 07:29 | NUR ---
HAND-OFF: Report given to milton fuentes using sbar.
--- NOTE | 2018-04-27 07:35 | NUR ---
NURSE NOTES: Received report from WILLI Childress. Patient resting in bed, opens eyes spontaneously and to voice. AA/OX4, able to make needs known. 2 L NC, 02sat 98%. Abdomen round, non tender, bowel sounds present. 1 BM . Anuric. Skin intact. IV access RT femoral PermaCath, running Dopamine @10mcg/kg/min. Fall precautions in place. HOB>30. Call light in reach. Bed locked and in low position, bed alarm on. Education on medication S.E and plan of care for today.
[2018-04-27 07:42] LABS: BASOPHILS % (AUTO) 0.4 % (0.0-2.0); EOSINOPHILS % (AUTO) 1.6 % (0.0-3.0); HEMATOCRIT 27.5 % (37.0-47.0); HEMOGLOBIN 9.1 G/DL (12.0-16.0); MEAN CORPUSCULAR VOLUME 92 FL (80-99); MONOCYTES % (AUTO) 12.7 % (1.0-10.0); NEUTROPHILS % (AUTO) 70.4 % (45.0-75.0); PLATELET COUNT 168 K/UL (150-450); RED BLOOD COUNT 2.99 M/UL (4.20-5.40); RED CELL DISTRIBUTION WIDTH 14.7 % (11.6-14.8); WHITE BLOOD COUNT 5.4 K/UL (4.8-10.8)
[2018-04-27 08:01] LABS: ALANINE AMINOTRANSFERASE 16 U/L (12-78); ALBUMIN 2.8 G/DL (3.4-5.0); ALBUMIN/GLOBULIN RATIO 0.6 (1.0-2.7); ALKALINE PHOSPHATASE 215 U/L (46-116); ANION GAP 12 mmol/L (5-15); ASPARTATE AMINO TRANSFERASE 16 U/L (15-37); BILIRUBIN,TOTAL 0.7 MG/DL (0.2-1.0); BLOOD UREA NITROGEN 33 mg/dL (7-18); CALCIUM 9.8 MG/DL (8.5-10.1); CARBON DIOXIDE 27 MMOL/L (21-32); CHLORIDE 92 MMOL/L (98-107); CREATININE 8.2 MG/DL (0.55-1.30); POTASSIUM 4.2 MMOL/L (3.5-5.1); SODIUM 131 MMOL/L (136-145)
--- NOTE | 2018-04-27 08:49 | NUR ---
NURSE NOTES: general technician here to do CXR
[2018-04-27] MEDS: Bisacodyl EC 5mg tab ORAL SCH ×2 (09:00→17:29)
[2018-04-27] MEDS: Aspirin Baby 81mg ORAL SCH (09:08)
[2018-04-27] MEDS: Citalopram Hydrobromide 10mg Tab ORAL SCH (09:09)
[2018-04-27] MEDS: Heparin 5000 units/ml inj SUBQ SCH ×2 (09:14→20:56)
--- NOTE | 2018-04-27 09:15 | NUR ---
NURSE NOTES: p.t here to work with pt. pt request come back later. he will return around 11.
--- NOTE | 2018-04-27 09:35 | NUR ---
RADIOLOGY DEPT CHEST X-RAY DONE P.DYE
--- NOTE | 2018-04-27 10:10 | NUR ---
NURSE NOTES: MD Schmidt here to see pt,c/o excess fluid administration with antibiotics and not removing enough fluids during H.D. It has been explained to pt that small amounts of fluid administered with IV medications. Awaiting CXR results.
--- NOTE | 2018-04-27 10:16 | Pulmonolgy Critical Care Note ---
Critical Care - Asmt/Plan Problems: (1) Septic shock (2) Pneumonia (3) Hypotension (4) ESRD (end stage renal disease) on dialysis (5) CHF (congestive heart failure) (6) Hypoparathyroidism Respiratory: monitor respiratory rate, adjust FIO2, CXR Cardiac: continue pressors, continue to monitor HR/BP Renal: F/U I&O Infectious Disease: check cultures Gastrointestinal: continue feedings/current rate Endocrine: monitor blood sugar, check TSH Hematologic: transfuse if hgb<8.5 Neurologic: PRN Ativan, PRN Morphine, keep patient comfortable Prophylaxis: Protonix Disposition: keep in ICU Notes Reviewed: renal Discussed with: nurses, consultants, case resource manageraudit manager - Objective Last 24 Hour Vital Signs Date Time Temp Pulse Resp B/P (MAP) Pulse Ox O2 Delivery O2 Flow Rate FiO2 04/27/18 09:07 86/43 04/27/18 08:00 Nasal Cannula 4.0 04/27/18 06:00 74 20 92/50 (64) 96 04/27/18 06:00 92/48 04/27/18 05:30 74 20 92/50 (64) 96 04/27/18 05:00 68/52 04/27/18 05:00 74 20 92/50 (64) 96 04/27/18 04:30 70 22 94/50 (65) 92 04/27/18 04:00 98.0 68 20 92/54 (67) 98 04/27/18 04:00 Nasal Cannula 4.0 04/27/18 04:00 87/44 04/27/18 04:00 75 04/27/18 03:30 74 18 95/46 (62) 94 04/27/18 03:00 104/47 04/27/18 03:00 61 20 92/50 (64) 92 04/27/18 02:30 71 20 64/17 (33) 95 04/27/18 02:00 70 20 54/11 (25) 97 04/27/18 02:00 50/11 04/27/18 01:30 63 20 95/50 (65) 97 04/27/18 01:29 64/19 04/27/18 01:00 71 20 100/76 (84) 97 04/27/18 00:38 75 04/27/18 00:30 98.2 69 20 96/46 (63) 97 04/27/18 00:00 Nasal Cannula 4.0 04/27/18 00:00 69 04/27/18 00:00 94/60 04/27/18 00:00 98.2 69 20 110/50 (70) 97 04/26/18 23:30 86 20 102/46 (64) 97 04/26/18 23:15 80 20 96/36 (56) 97 04/26/18 23:00 76 20 92/36 (54) 97 04/26/18 23:00 100/32 04/26/18 22:45 74 17 100/46 (64) 98 04/26/18 22:30 77 20 96/32 (53) 97 04/26/18 22:24 Nasal Cannula 3.0 32 04/26/18 22:24 97 Nasal Cannula 3.0 32 04/26/18 22:15 86 20 100/36 (57) 97 04/26/18 22:00 106/44 04/26/18 22:00 77 20 105/44 (64) 97 04/26/18 21:45 77 20 96/36 (56) 97 04/26/18 21:30 83 18 96/36 (56) 98 04/26/18 21:00 94/52 04/26/18 20:45 71 21 100/45 (63) 100 04/26/18 20:30 79 22 90/34 (52) 95 04/26/18 20:15 75 18 86/66 (73) 98 04/26/18 20:15 72 18 87/46 (60) 91 04/26/18 20:00 75 04/26/18 20:00 87/46 04/26/18 20:00 97.5 69 18 101/69 (80) 99 04/26/18 20:00 Nasal Cannula 4.0 04/26/18 20:00 75 18 86/66 (73) 98 04/26/18 19:45 75 18 86/66 (73) 98 04/26/18 19:45 67 18 97/46 (63) 100 04/26/18 19:30 75 18 101/69 (80) 98 04/26/18 19:30 74 20 96/52 (67) 94 04/26/18 19:15 79 18 91/41 (58) 98 04/26/18 19:15 74 21 79/62 (68) 26 04/26/18 19:06 79 18 79/62 (68) 04/26/18 19:00 75 18 86/66 (73) 98 04/26/18 19:00 75 20 79/58 (65) 04/26/18 18:45 75 18 86/66 (73) 98 04/26/18 18:30 73 18 91/40 (57) 98 04/26/18 18:15 74 18 92/26 (48) 98 04/26/18 18:00 67 18 92/26 (48) 98 04/26/18 18:00 108/34 04/26/18 17:45 71 18 108/34 (58) 98 04/26/18 17:30 77 18 103/24 (50) 98 04/26/18 17:15 69 18 103/24 (50) 98 04/26/18 17:00 72 18 106/30 (55) 98 04/26/18 17:00 99/21 04/26/18 16:49 113/43 04/26/18 16:45 73 18 113/39 (63) 98 04/26/18 16:30 79 18 105/48 (67) 98 04/26/18 16:15 91 18 113/43 (66) 100 04/26/18 16:00 78 04/26/18 16:00 105/48 04/26/18 16:00 Nasal Cannula 4.0 04/26/18 16:00 98.3 73 18 105/48 (67) 100 04/26/18 15:45 77 18 125/33 (63) 100 04/26/18 15:30 83 18 125/33 (63) 100 04/26/18 15:15 88 18 127/52 (77) 100 04/26/18 15:00 83 18 105/52 (69) 100 04/26/18 15:00 125/33 04/26/18 14:45 79 18 105/52 (69) 100 04/26/18 14:30 82 17 101/45 (63) 100 04/26/18 14:15 80 16 111/50 (70) 100 04/26/18 14:00 92 17 130/72 (91) 100 04/26/18 14:00 130/72 04/26/18 13:45 86 18 85/64 (71) 100 04/26/18 13:30 74 17 85/64 (71) 100 04/26/18 13:15 75 17 85/53 (64) 100 04/26/18 13:00 73 17 90/47 (61) 100 04/26/18 13:00 85/64 04/26/18 12:45 75 17 94/38 (56) 100 04/26/18 12:30 75 17 92/35 (54) 100 04/26/18 12:15 74 17 90/45 (60) 100 04/26/18 12:00 84 04/26/18 12:00 Nasal Cannula 4.0 04/26/18 12:00 97/43 04/26/18 12:00 98.2 89 17 97/43 (61) 100 04/26/18 11:45 82 17 89/40 (56) 100 04/26/18 11:30 87 17 9/45 (33) 100 04/26/18 11:15 90 17 90/45 (60) 100 04/26/18 11:00 90/45 04/26/18 11:00 87 17 93/54 (67) 100 04/26/18 10:45 94 17 82/66 (71) 100 04/26/18 10:30 83 17 83/51 (62) 100 04/26/18 10:17 75/38 Status: awake Condition: critical HEENT: atraumatic Neck: full ROM Lungs: rales, rhonchi Heart: HR/BP stable Abdomen: soft, non-tender Extremities: no C/C/E Decubiti: location Micro: Microbiology Date/Time Source Procedure Growth Status 04/24/18 15:15 Blood Blood Culture - Preliminary NO GROWTH AFTER 48 HOURS Resulted 04/24/18 15:10 Blood Blood Culture - Preliminary NO GROWTH AFTER 48 HOURS Resulted Critical Care - Subjective ROS Limited/Unobtainable: Yes Condition: critical EKG Rhythm: Sinus Rhythm FI02: 32 Sputum Amount: None Drips: dopamine 10 ugm I&O: Intake and Output 04/26/18 04/27/18 18:59 06:59 Intake Total 750.562 ml 482.537 ml Output Total 500 ml 0 ml Balance 250.562 ml 482.537 ml Intake Oral 130 ml IV Total 620.562 ml 482.537 ml Output Urine Total 0 ml 0 ml Hemodialysis UF 500 ml # Bowel Movements 1 CXR: no change Labs: Laboratory Tests Test 04/27/18 05:30 White Blood Count 5.4 K/UL (4.8-10.8) Red Blood Count 2.99 M/UL (4.20-5.40) L Hemoglobin 9.1 G/DL (12.0-16.0) L Hematocrit 27.5 % (37.0-47.0) L Mean Corpuscular Volume 92 FL (80-99) Mean Corpuscular Hemoglobin 30.4 PG (27.0-31.0) Mean Corpuscular Hemoglobin Concent 33.1 G/DL (32.0-36.0) Red Cell Distribution Width 14.7 % (11.6-14.8) Platelet Count 168 K/UL (150-450) Mean Platelet Volume 9.6 FL (6.5-10.1) Neutrophils (%) (Auto) 70.4 % (45.0-75.0) Lymphocytes (%) (Auto) 15.0 % (20.0-45.0) L Monocytes (%) (Auto) 12.7 % (1.0-10.0) H Eosinophils (%) (Auto) 1.6 % (0.0-3.0) Basophils (%) (Auto) 0.4 % (0.0-2.0) Sodium Level 131 MMOL/L (136-145) L Potassium Level 4.2 MMOL/L (3.5-5.1) Chloride Level 92 MMOL/L (98-107) L Carbon Dioxide Level 27 MMOL/L (21-32) Anion Gap 12 mmol/L (5-15) Blood Urea Nitrogen 33 mg/dL (7-18) H Creatinine 8.2 MG/DL (0.55-1.30) H Estimat Glomerular Filtration Rate 6.2 mL/min (>60) Glucose Level 86 MG/DL (74-106) Calcium Level 9.8 MG/DL (8.5-10.1) Total Bilirubin 0.7 MG/DL (0.2-1.0) Aspartate Amino Transf (AST/SGOT) 16 U/L (15-37) Alanine Aminotransferase (ALT/SGPT) 16 U/L (12-78) Alkaline Phosphatase 215 U/L (46-116) H Pro-B-Type Natriuretic Peptide 4549 pg/mL (0-125) H Total Protein 7.7 G/DL (6.4-8.2) Albumin 2.8 G/DL (3.4-5.0) L Globulin 4.9 g/dL Albumin/Globulin Ratio 0.6 (1.0-2.7) L Cuate Schmidt MD Apr 27, 2018 10:16
--- NOTE | 2018-04-27 11:02 | NUR ---
NURSE NOTES: PT LYING ON DOPAMINE TUBING, BP 66/47, PT STATED " FEELING BLAH". DOPAMINE WAS INCREASED TO 12MCG/KG/MIN. BP 87/45, SECOND RETAKE 106/49. BP CUFF READJUSTED. WILL CONTINUE TO MONITOR.
--- NOTE | 2018-04-27 11:20 | NUR ---
NURSE NOTES: PT HERE TO WORK WITH PT, BP 117/42, HR 110. UPON STANDING HR INCREASE TO 119 92% 02SAT RR 22. INCREASE IN PVC'S. DOPAMINE AT 10MCG/KG/MIN. PT REQUIRES SOME MOTIVATION TO GET STARTED BUT IS WILLING TO GIVE P.T A TRY.
--- NOTE | 2018-04-27 11:48 | Infectious Diseases Prog Note ---
Assessment/Plan Assessment/Plan ASSESSMENT: 1. sepsis, shock, pneumonia, CT chest noted, pressors, bradycardia, sputum culture with mold, ? aspergillus pna, ? other source for shock, abdominal pain, n/v hx - continue meropenem and doxycycline x 1 day for 14 day tx course - continue voriconazole - day # 0, d/w microbiology and ID of mold pending ( send out) - still requiring pressors - ? other shock source, ? adrenal insufficiency, blood cultures negative - hearing better off vancomycin - monitor labs and chest x-ray - icu care, remains on pressors, no vent - chest x-ray stable - d/w RN - d/w pharmacy about abx 2. End-stage renal disease, hemodialysis, has a right femoral line hemodialysis line and also left arm graft. 3. History of fistula in the past. 4. History of PermCath in the past 5. Anemia of chronic disease. 6. Hypertension - Blood pressure treatment per primary. 7. No history of diabetes mentioned. 8. Chronic kidney disease. 9. Obesity. 10. History of cholecystectomy. 11. History of parathyroidectomy. 12. History of carpal tunnel syndrome. 13. History of fractures, ORIF. 14. Past medical history noted. 15. Multiple drug allergies including cefazolin, Cipro, contrast media, gentamicin, ketamine, Levaquin and penicillin, she seems to tolerate carbapenems. 16. Social history is negative . 17. Family history is noncontributory. 18. MAR was noted. 19. Case discussed with RN. 20. Continue treatment per primary consultants. 21. Notes were noted and orders were entered. Subjective Constitutional: Denies: fever HEENT: Denies: congestion Respiratory: Denies: shortness of breath Cardiovascular: Denies: chest pain Gastrointestinal/Abdominal: Denies: nausea, vomiting, diarrhea Genitourinary: Denies: other Neurologic: Denies: headache Psychiatric: Denies: depression Skin: Denies: rash Hematologic: Denies: bleeding Musculoskeletal: Denies: pain Allergies: Coded Allergies: CEFAZOLIN (Verified Allergy, Unknown, 10/02/10) CIPROFLOXACIN (Verified Allergy, Unknown, 10/02/10) GENTAMICIN (Verified Allergy, Unknown, 10/02/10) KETAMINE (Verified Allergy, Unknown, 03/29/18) LEVOFLOXACIN (Verified Allergy, Unknown, 10/02/10) PENICILLINS (Verified Allergy, Unknown, ITCH, 10/02/10) Uncoded Allergies: CONTRAST MEDIA (Adverse Reaction, Mild, MILD ITCHING AFTER CONTRAST MEDIA, 04/30/17) Objective Vital Signs Last 24 Hour Vital Signs Date Time Temp Pulse Resp B/P (MAP) Pulse Ox O2 Delivery O2 Flow Rate FiO2 04/27/18 11:00 75 19 106/49 (68) 93 04/27/18 10:30 72 14 90/50 (63) 96 04/27/18 10:00 76 16 88/41 (57) 93 04/27/18 09:30 84 18 88/42 (57) 97 04/27/18 09:07 86/43 04/27/18 09:00 75 15 86/43 (57) 04/27/18 08:30 70 15 95/52 (66) 93 04/27/18 08:00 72 04/27/18 08:00 82 21 101/48 (65) 90 04/27/18 08:00 Nasal Cannula 4.0 04/27/18 07:30 73 16 98/53 (68) 97 04/27/18 07:00 98.7 75 17 93/44 (60) 92 04/27/18 06:35 Nasal Cannula 4.0 36 04/27/18 06:35 93 Nasal Cannula 4.0 36 04/27/18 06:00 74 20 92/50 (64) 96 04/27/18 06:00 92/48 04/27/18 05:30 74 20 92/50 (64) 96 04/27/18 05:00 68/52 04/27/18 05:00 74 20 92/50 (64) 96 04/27/18 04:30 70 22 94/50 (65) 92 04/27/18 04:00 98.0 68 20 92/54 (67) 98 04/27/18 04:00 Nasal Cannula 4.0 04/27/18 04:00 87/44 04/27/18 04:00 75 04/27/18 03:30 74 18 95/46 (62) 94 04/27/18 03:00 104/47 04/27/18 03:00 61 20 92/50 (64) 92 04/27/18 02:30 71 20 64/17 (33) 95 04/27/18 02:00 70 20 54/11 (25) 97 04/27/18 02:00 50/11 04/27/18 01:30 63 20 95/50 (65) 97 04/27/18 01:29 64/19 04/27/18 01:00 71 20 100/76 (84) 97 04/27/18 00:38 75 04/27/18 00:30 98.2 69 20 96/46 (63) 97 04/27/18 00:00 Nasal Cannula 4.0 04/27/18 00:00 69 04/27/18 00:00 94/60 04/27/18 00:00 98.2 69 20 110/50 (70) 97 04/26/18 23:30 86 20 102/46 (64) 97 04/26/18 23:15 80 20 96/36 (56) 97 04/26/18 23:00 76 20 92/36 (54) 97 04/26/18 23:00 100/32 04/26/18 22:45 74 17 100/46 (64) 98 04/26/18 22:30 77 20 96/32 (53) 97 04/26/18 22:24 Nasal Cannula 3.0 32 04/26/18 22:24 97 Nasal Cannula 3.0 32 04/26/18 22:15 86 20 100/36 (57) 97 04/26/18 22:00 106/44 04/26/18 22:00 77 20 105/44 (64) 97 04/26/18 21:45 77 20 96/36 (56) 97 04/26/18 21:30 83 18 96/36 (56) 98 04/26/18 21:00 94/52 04/26/18 20:45 71 21 100/45 (63) 100 04/26/18 20:30 79 22 90/34 (52) 95 04/26/18 20:15 75 18 86/66 (73) 98 04/26/18 20:15 72 18 87/46 (60) 91 04/26/18 20:00 75 04/26/18 20:00 87/46 04/26/18 20:00 97.5 69 18 101/69 (80) 99 04/26/18 20:00 Nasal Cannula 4.0 04/26/18 20:00 75 18 86/66 (73) 98 04/26/18 19:45 75 18 86/66 (73) 98 04/26/18 19:45 67 18 97/46 (63) 100 04/26/18 19:30 75 18 101/69 (80) 98 04/26/18 19:30 74 20 96/52 (67) 94 04/26/18 19:15 79 18 91/41 (58) 98 04/26/18 19:15 74 21 79/62 (68) 26 04/26/18 19:06 79 18 79/62 (68) 04/26/18 19:00 75 18 86/66 (73) 98 04/26/18 19:00 75 20 79/58 (65) 04/26/18 18:45 75 18 86/66 (73) 98 04/26/18 18:30 73 18 91/40 (57) 98 04/26/18 18:15 74 18 92/26 (48) 98 04/26/18 18:00 67 18 92/26 (48) 98 04/26/18 18:00 108/34 04/26/18 17:45 71 18 108/34 (58) 98 04/26/18 17:30 77 18 103/24 (50) 98 04/26/18 17:15 69 18 103/24 (50) 98 04/26/18 17:00 72 18 106/30 (55) 98 04/26/18 17:00 99/21 04/26/18 16:49 113/43 04/26/18 16:45 73 18 113/39 (63) 98 04/26/18 16:30 79 18 105/48 (67) 98 04/26/18 16:15 91 18 113/43 (66) 100 04/26/18 16:00 78 04/26/18 16:00 105/48 04/26/18 16:00 Nasal Cannula 4.0 04/26/18 16:00 98.3 73 18 105/48 (67) 100 04/26/18 15:45 77 18 125/33 (63) 100 04/26/18 15:30 83 18 125/33 (63) 100 04/26/18 15:15 88 18 127/52 (77) 100 04/26/18 15:00 83 18 105/52 (69) 100 04/26/18 15:00 125/33 04/26/18 14:45 79 18 105/52 (69) 100 04/26/18 14:30 82 17 101/45 (63) 100 04/26/18 14:15 80 16 111/50 (70) 100 04/26/18 14:00 92 17 130/72 (91) 100 04/26/18 14:00 130/72 04/26/18 13:45 86 18 85/64 (71) 100 04/26/18 13:30 74 17 85/64 (71) 100 04/26/18 13:15 75 17 85/53 (64) 100 04/26/18 13:00 73 17 90/47 (61) 100 04/26/18 13:00 85/64 04/26/18 12:45 75 17 94/38 (56) 100 04/26/18 12:30 75 17 92/35 (54) 100 04/26/18 12:15 74 17 90/45 (60) 100 04/26/18 12:00 84 04/26/18 12:00 Nasal Cannula 4.0 04/26/18 12:00 97/43 04/26/18 12:00 98.2 89 17 97/43 (61) 100 Height (Feet): 5 Height (Inches): 6.00 Weight (Pounds): 200 General Appearance: no acute distress HEENT: normocephalic, atraumatic, anicteric, mucous membranes moist Respiratory/Chest: normal breath sounds, no respiratory distress, crackles/ rales - few, rhonchi - bilaterally - few, other - mostly clear bilateral with good air exchange Cardiovascular: normal rate, regular rhythm, no gallop/murmur, no JVD Abdomen: normal bowel sounds, soft, non tender, no organomegaly, non distended Genitourinary: other - no mckinney Extremities: no cyanosis Skin: no rash Neurologic/Psychiatric: patient services manager 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 Follow-up after appropriate treatment recommended to ensure resolution. * Patchy opacities in the right upper lobe are also likely infectious in etiology. These obscure the previously described lung nodule. Attention to this area on follow-up recommended. * Prominent hilar and mediastinal lymph nodes, possibly reactive in etiology. * Small bilateral pleural effusions. * Large hiatal hernia * Dialysis catheter tip in the right atrium. Evidence of central venous occlusion with multiple collateral veins noted in the mediastinum. * Nonspecific calcifications in the bilateral breasts are correlation with most recent mammogram recommended. If none performed recently, then recommend follow- up screening mammogram. * Findings suggestive of renal osteodystrophy Chest x-ray - 04/14 - Findings: Heart size and mediastinal contours stable. Femoral approach dialysis catheter is again noted. Multiple surgical clips noted in the bilateral axilla. Portions of a stents again visualized in the right axilla. Multiple surgical clips noted in the right arm. Offset Pressman opacities in the left midlung peripherally. No evidence of pneumothorax. There is patchy opacity at the right base. Osseous structures stable. Calcifications in the right breast noted. Impression: Left-sided airspace opacities most concerning for pneumonia. There is slight interval increased density compared to prior exam which may be technical. 04/16/18 - chest x-ray - IMPRESSION: 1. Bilateral airspace opacities, most confluent in the left midlung field. Could be from consolidation/pneumonia. There is a broad differential. Follow to ensure resolution and exclude other mimics. 2. Suspect bilateral pleural effusions. 3. Vascular congestion. 04/20/18: Comparison: 04/16/2018 A single view chest radiograph was obtained. Findings: Interstitial edema again suspected mild in degree, slightly improved from the prior study. Heart size is stable. Large bore catheter projected over the right atrium entering from the IVC. Pleural-based density lateral aspect of the left lung again noted. Extensive surgical clips in the thoracic inlet and left axillary region noted. IMPRESSION: Some improvement in the initial edema. Other findings stable Chest x-ray - 04/23/18 - COMPARISON: Chest x-ray dated 04/19/18 FINDINGS: Single frontal view demonstrates a normal cardiomediastinal silhouette. Surgical clips in the neck base. Status post left axillary dissection. Central venous catheter terminating in the right atrium, may be extending from a femoral approach, grossly unchanged. Stable patchy opacity in the left mid lung zone. Increasing patchy opacity in bilateral lower lung zones, right greater the left. The visualized osseous structures are within normal limits. IMPRESSION: 1. Stable patchy opacity in the left mid lung zone. Increasing patchy opacity in bilateral lower lung zones, right greater the left. 2. Stable lines and postoperative findings as outlined above. Chest x-ray - 04/26/18 - Interstitial edema has improved significantly since over the last few days. There is a mass versus infiltrate in the left midlung that persists. There is extensive surgical clips both axilla. Vascular stent right upper arm noted. Heart size is normal. IMPRESSION: Interval improvement in CHF. Mass versus infiltrate in the left midlung Microbiology Date/Time Source Procedure Growth Status 04/24/18 15:15 Blood Blood Culture - Preliminary NO GROWTH AFTER 48 HOURS Resulted 04/24/18 15:10 Blood Blood Culture - Preliminary NO GROWTH AFTER 48 HOURS Resulted Laboratory Tests Test 04/27/18 05:30 White Blood Count 5.4 K/UL (4.8-10.8) Red Blood Count 2.99 M/UL (4.20-5.40) L Hemoglobin 9.1 G/DL (12.0-16.0) L Hematocrit 27.5 % (37.0-47.0) L Mean Corpuscular Volume 92 FL (80-99) Mean Corpuscular Hemoglobin 30.4 PG (27.0-31.0) Mean Corpuscular Hemoglobin Concent 33.1 G/DL (32.0-36.0) Red Cell Distribution Width 14.7 % (11.6-14.8) Platelet Count 168 K/UL (150-450) Mean Platelet Volume 9.6 FL (6.5-10.1) Neutrophils (%) (Auto) 70.4 % (45.0-75.0) Lymphocytes (%) (Auto) 15.0 % (20.0-45.0) L Monocytes (%) (Auto) 12.7 % (1.0-10.0) H Eosinophils (%) (Auto) 1.6 % (0.0-3.0) Basophils (%) (Auto) 0.4 % (0.0-2.0) Sodium Level 131 MMOL/L (136-145) L Potassium Level 4.2 MMOL/L (3.5-5.1) Chloride Level 92 MMOL/L (98-107) L Carbon Dioxide Level 27 MMOL/L (21-32) Anion Gap 12 mmol/L (5-15) Blood Urea Nitrogen 33 mg/dL (7-18) H Creatinine 8.2 MG/DL (0.55-1.30) H Estimat Glomerular Filtration Rate 6.2 mL/min (>60) Glucose Level 86 MG/DL (74-106) Calcium Level 9.8 MG/DL (8.5-10.1) Total Bilirubin 0.7 MG/DL (0.2-1.0) Aspartate Amino Transf (AST/SGOT) 16 U/L (15-37) Alanine Aminotransferase (ALT/SGPT) 16 U/L (12-78) Alkaline Phosphatase 215 U/L (46-116) H Pro-B-Type Natriuretic Peptide 4549 pg/mL (0-125) H Total Protein 7.7 G/DL (6.4-8.2) Albumin 2.8 G/DL (3.4-5.0) L Globulin 4.9 g/dL Albumin/Globulin Ratio 0.6 (1.0-2.7) L Current Medications Medications (Trade) Dose Ordered Sig/Marcos Route PRN Reason Start Time Stop Time Status Last Admin Dose Admin Acetaminophen (Tylenol) 650 mg Q6H PRN ORAL Mild Pain/Temp > 100.5 04/12/18 17:45 05/12/18 17:44 04/26/18 05:00 Aspirin (ASA) 81 mg DAILY ORAL 04/17/18 09:00 05/17/18 08:59 04/27/18 09:08 Bisacodyl (Dulcolax) 5 mg BID ORAL 04/21/18 19:00 05/21/18 18:59 04/26/18 18:08 Chlorhexidine Gluconate (Nivia-Hex 2%) 1 applic DAILY@2000 TOPIC 04/13/18 20:00 05/13/18 19:59 04/26/18 20:06 Citalopram Hydrobromide (celeXA) 20 mg DAILY ORAL 04/25/18 12:00 05/25/18 11:59 04/27/18 09:09 Dopamine HCl/ Dextrose 250 ml @ 0 mls/hr Q24H IV 04/18/18 02:00 05/18/18 01:59 04/27/18 09:07 Doxycycline Hyclate 100 mg/ Dextrose 100 ml @ 100 mls/hr Q12HR IV 04/16/18 21:00 04/29/18 20:59 04/27/18 09:06 Guaifenesin (Robitussin) 300 mg Q6H PRN ORAL For Cough 04/14/18 17:00 05/14/18 16:59 04/16/18 02:07 Heparin Sodium (Porcine) (Heparin 5000 units/ml) 5,000 units EVERY 12 HOURS SUBQ 04/12/18 21:00 05/12/18 20:59 04/27/18 09:14 Hydromorphone HCl (Dilaudid) 1 mg Q4H PRN IVP For Pain 04/25/18 11:45 05/02/18 11:44 04/26/18 21:57 Loperamide HCl (Imodium) 2 mg Q4H PRN ORAL Diarrhea 04/25/18 18:15 05/25/18 18:14 04/25/18 18:16 Lorazepam (Ativan) 2 mg Q6H PRN ORAL For Anxiety 04/25/18 11:15 05/02/18 11:14 Meropenem 500 mg/ Sodium Chloride 50 ml @ 100 mls/hr Q24HRS IVPB 04/24/18 14:00 04/29/18 13:59 04/26/18 14:15 Midodrine (Pro-Amatine) 10 mg Q8HR ORAL 04/19/18 14:00 05/19/18 13:59 04/27/18 05:59 Mirtazapine (Remeron) 7.5 mg BEDTIME ORAL 04/25/18 21:00 05/25/18 20:59 04/26/18 21:26 Ondansetron HCl (Zofran) 4 mg Q4H PRN IVP Nausea & Vomiting 04/12/18 17:45 05/12/18 17:44 04/26/18 14:26 Pantoprazole (Protonix) 40 mg BID ORAL 04/25/18 18:00 05/12/18 17:59 04/27/18 09:08 Polyethylene Glycol (Miralax) 17 gm BEDTIME ORAL 04/21/18 21:00 05/21/18 20:59 04/26/18 21:21 Sevelamer Carbonate (Renvela) 2,400 mg THREE TIMES A DAY ORAL 1/5/19 13:00 05/13/18 08:59 04/27/18 09:09 Voriconazole (Vfend) 200 mg EVERY 12 HOURS ORAL 04/24/18 21:00 05/01/18 20:59 04/27/18 09:08 Edgardo Mcbride MD Apr 27, 2018 11:48
--- NOTE | 2018-04-27 11:55 | GI Progress Note ---
Assessment/Plan Problems: (1) Epigastric abdominal pain ICD Codes: R10.13 - Epigastric pain SNOMED: 66163318 (2) Anxiety ICD Codes: F41.9 - Anxiety disorder, unspecified SNOMED: 19988958 (3) Constipation ICD Codes: K59.00 - Constipation, unspecified SNOMED: 01056895 (4) Anemia of renal disease ICD Codes: D63.1 - Anemia in chronic kidney disease SNOMED: 386402494, 781887453 Status: stable Status Narrative Discussed with Dr. Diaz. Assessment/Plan Unknown history of abdominal surgery KUB noted mainly unremarkable cdiff, stool studies both negative OB stool negative on renal diet protonix daily fu labs bowel regimen pain mgmt PT evaluation The patient was seen and examined at bedside and all new and available data was reviewed in the patients chart. I agree with the above findings, impression and plan. (Patient seen earlier today. Signature stamp does not reflect patient encounter time.). - Ryley Diaz MD Subjective Subjective denies abdominal pain Still has complaint of constipation Objective Last 24 Hour Vital Signs Date Time Temp Pulse Resp B/P (MAP) Pulse Ox O2 Delivery O2 Flow Rate FiO2 04/27/18 11:00 75 19 106/49 (68) 93 04/27/18 10:30 72 14 90/50 (63) 96 04/27/18 10:00 76 16 88/41 (57) 93 04/27/18 09:30 84 18 88/42 (57) 97 04/27/18 09:07 86/43 04/27/18 09:00 75 15 86/43 (57) 04/27/18 08:30 70 15 95/52 (66) 93 04/27/18 08:00 72 04/27/18 08:00 82 21 101/48 (65) 90 04/27/18 08:00 Nasal Cannula 4.0 04/27/18 07:30 73 16 98/53 (68) 97 04/27/18 07:00 98.7 75 17 93/44 (60) 92 04/27/18 06:35 Nasal Cannula 4.0 36 04/27/18 06:35 93 Nasal Cannula 4.0 36 04/27/18 06:00 74 20 92/50 (64) 96 04/27/18 06:00 92/48 04/27/18 05:30 74 20 92/50 (64) 96 04/27/18 05:00 68/52 04/27/18 05:00 74 20 92/50 (64) 96 04/27/18 04:30 70 22 94/50 (65) 92 04/27/18 04:00 98.0 68 20 92/54 (67) 98 04/27/18 04:00 Nasal Cannula 4.0 04/27/18 04:00 87/44 04/27/18 04:00 75 04/27/18 03:30 74 18 95/46 (62) 94 04/27/18 03:00 104/47 04/27/18 03:00 61 20 92/50 (64) 92 04/27/18 02:30 71 20 64/17 (33) 95 04/27/18 02:00 70 20 54/11 (25) 97 04/27/18 02:00 50/11 04/27/18 01:30 63 20 95/50 (65) 97 04/27/18 01:29 64/19 04/27/18 01:00 71 20 100/76 (84) 97 04/27/18 00:38 75 04/27/18 00:30 98.2 69 20 96/46 (63) 97 04/27/18 00:00 Nasal Cannula 4.0 04/27/18 00:00 69 04/27/18 00:00 94/60 04/27/18 00:00 98.2 69 20 110/50 (70) 97 04/26/18 23:30 86 20 102/46 (64) 97 04/26/18 23:15 80 20 96/36 (56) 97 04/26/18 23:00 76 20 92/36 (54) 97 04/26/18 23:00 100/32 04/26/18 22:45 74 17 100/46 (64) 98 04/26/18 22:30 77 20 96/32 (53) 97 04/26/18 22:24 Nasal Cannula 3.0 32 04/26/18 22:24 97 Nasal Cannula 3.0 32 04/26/18 22:15 86 20 100/36 (57) 97 04/26/18 22:00 106/44 04/26/18 22:00 77 20 105/44 (64) 97 04/26/18 21:45 77 20 96/36 (56) 97 04/26/18 21:30 83 18 96/36 (56) 98 04/26/18 21:00 94/52 04/26/18 20:45 71 21 100/45 (63) 100 04/26/18 20:30 79 22 90/34 (52) 95 04/26/18 20:15 75 18 86/66 (73) 98 04/26/18 20:15 72 18 87/46 (60) 91 04/26/18 20:00 75 04/26/18 20:00 87/46 04/26/18 20:00 97.5 69 18 101/69 (80) 99 04/26/18 20:00 Nasal Cannula 4.0 04/26/18 20:00 75 18 86/66 (73) 98 04/26/18 19:45 75 18 86/66 (73) 98 04/26/18 19:45 67 18 97/46 (63) 100 04/26/18 19:30 75 18 101/69 (80) 98 04/26/18 19:30 74 20 96/52 (67) 94 04/26/18 19:15 79 18 91/41 (58) 98 04/26/18 19:15 74 21 79/62 (68) 26 04/26/18 19:06 79 18 79/62 (68) 04/26/18 19:00 75 18 86/66 (73) 98 04/26/18 19:00 75 20 79/58 (65) 04/26/18 18:45 75 18 86/66 (73) 98 04/26/18 18:30 73 18 91/40 (57) 98 04/26/18 18:15 74 18 92/26 (48) 98 04/26/18 18:00 67 18 92/26 (48) 98 04/26/18 18:00 108/34 04/26/18 17:45 71 18 108/34 (58) 98 04/26/18 17:30 77 18 103/24 (50) 98 04/26/18 17:15 69 18 103/24 (50) 98 04/26/18 17:00 72 18 106/30 (55) 98 04/26/18 17:00 99/21 04/26/18 16:49 113/43 04/26/18 16:45 73 18 113/39 (63) 98 04/26/18 16:30 79 18 105/48 (67) 98 04/26/18 16:15 91 18 113/43 (66) 100 04/26/18 16:00 78 04/26/18 16:00 105/48 04/26/18 16:00 Nasal Cannula 4.0 04/26/18 16:00 98.3 73 18 105/48 (67) 100 04/26/18 15:45 77 18 125/33 (63) 100 04/26/18 15:30 83 18 125/33 (63) 100 04/26/18 15:15 88 18 127/52 (77) 100 04/26/18 15:00 83 18 105/52 (69) 100 04/26/18 15:00 125/33 04/26/18 14:45 79 18 105/52 (69) 100 04/26/18 14:30 82 17 101/45 (63) 100 04/26/18 14:15 80 16 111/50 (70) 100 04/26/18 14:00 92 17 130/72 (91) 100 04/26/18 14:00 130/72 04/26/18 13:45 86 18 85/64 (71) 100 04/26/18 13:30 74 17 85/64 (71) 100 04/26/18 13:15 75 17 85/53 (64) 100 04/26/18 13:00 73 17 90/47 (61) 100 04/26/18 13:00 85/64 04/26/18 12:45 75 17 94/38 (56) 100 04/26/18 12:30 75 17 92/35 (54) 100 04/26/18 12:15 74 17 90/45 (60) 100 04/26/18 12:00 84 04/26/18 12:00 Nasal Cannula 4.0 04/26/18 12:00 97/43 04/26/18 12:00 98.2 89 17 97/43 (61) 100 Intake and Output 04/26/18 04/27/18 18:59 06:59 Intake Total 750.562 ml 482.537 ml Output Total 500 ml 0 ml Balance 250.562 ml 482.537 ml Intake Oral 130 ml IV Total 620.562 ml 482.537 ml Output Urine Total 0 ml 0 ml Hemodialysis UF 500 ml # Bowel Movements 1 Laboratory Tests Test 04/27/18 05:30 White Blood Count 5.4 K/UL (4.8-10.8) Red Blood Count 2.99 M/UL (4.20-5.40) L Hemoglobin 9.1 G/DL (12.0-16.0) L Hematocrit 27.5 % (37.0-47.0) L Mean Corpuscular Volume 92 FL (80-99) Mean Corpuscular Hemoglobin 30.4 PG (27.0-31.0) Mean Corpuscular Hemoglobin Concent 33.1 G/DL (32.0-36.0) Red Cell Distribution Width 14.7 % (11.6-14.8) Platelet Count 168 K/UL (150-450) Mean Platelet Volume 9.6 FL (6.5-10.1) Neutrophils (%) (Auto) 70.4 % (45.0-75.0) Lymphocytes (%) (Auto) 15.0 % (20.0-45.0) L Monocytes (%) (Auto) 12.7 % (1.0-10.0) H Eosinophils (%) (Auto) 1.6 % (0.0-3.0) Basophils (%) (Auto) 0.4 % (0.0-2.0) Sodium Level 131 MMOL/L (136-145) L Potassium Level 4.2 MMOL/L (3.5-5.1) Chloride Level 92 MMOL/L (98-107) L Carbon Dioxide Level 27 MMOL/L (21-32) Anion Gap 12 mmol/L (5-15) Blood Urea Nitrogen 33 mg/dL (7-18) H Creatinine 8.2 MG/DL (0.55-1.30) H Estimat Glomerular Filtration Rate 6.2 mL/min (>60) Glucose Level 86 MG/DL (74-106) Calcium Level 9.8 MG/DL (8.5-10.1) Total Bilirubin 0.7 MG/DL (0.2-1.0) Aspartate Amino Transf (AST/SGOT) 16 U/L (15-37) Alanine Aminotransferase (ALT/SGPT) 16 U/L (12-78) Alkaline Phosphatase 215 U/L (46-116) H Pro-B-Type Natriuretic Peptide 4549 pg/mL (0-125) H Total Protein 7.7 G/DL (6.4-8.2) Albumin 2.8 G/DL (3.4-5.0) L Globulin 4.9 g/dL Albumin/Globulin Ratio 0.6 (1.0-2.7) L Height (Feet): 5 Height (Inches): 6.00 Weight (Pounds): 200 General Appearance: WD/WN, no apparent distress, alert Cardiovascular: normal rate Respiratory/Chest: normal breath sounds, no respiratory distress Abdominal Exam: normal bowel sounds, non tender, soft Extremities: normal range of motion, non-tender Wm Faustin NP Apr 27, 2018 11:55
--- NOTE | 2018-04-27 11:58 | NUR ---
RD ASSESSMENT & RECOMMENDATIONS SEE CARE ACTIVITY FOR COMPLETE ASSESSMENT DAILY ESTIMATED NEEDS: Needs based on ESRD on HD, obese 66.4kg adj 25-30 kcals/kg [id number] total kcals 1.2-1.8 g protein/kg 80-120 g total protein Fluid per MD, on HD mL/kg total fluid mLs NUTRITION DIAGNOSIS: 1) Increased protein needs R/T renal dysfunction as evidenced by pt w/ ESRD on HD, poor PO intake noted. 2) Altered nutrition related lab values R/T renal dysfunction, pre-DM?, clinical condition as evidenced by low Na (131), elev BNP ([phone]), A1C=6.0,low BP, on pressor. CURRENT DIET:Renal + Nepro BID PO DIET RECOMMENDATIONS: Liberalized diet of Low Na w/ continued poor PO intake ADDITIONAL RECOMMENDATIONS: 1) Weights per policy/ HD pt 2) Nephrovite x1 tab daily 3) Nepro 1 tetra diana BID 4) Monitor BGs, need for hypoglycemic agent: A1C of 6.0 5) Monitor BG and po intake/ need for dietary restriction. -Rec liberalized diet w/ continued poor PO intake
--- NOTE | 2018-04-27 12:10 | NUR ---
NURSE NOTES: R.T HERE TO DO CPT ON PT. PT IN NO ACUTE DISTRESS.
--- NOTE | 2018-04-27 12:51 | Internal Med Progress Note ---
Subjective Date of Service: Apr 27, 2018 Physician Name Edward Harrell Attending Physician Ash Henley MD Current Medications Medications (Trade) Dose Ordered Sig/Marcos Route PRN Reason Start Time Stop Time Status Last Admin Dose Admin Acetaminophen (Tylenol) 650 mg Q6H PRN ORAL Mild Pain/Temp > 100.5 04/12/18 17:45 05/12/18 17:44 04/26/18 05:00 Aspirin (ASA) 81 mg DAILY ORAL 04/17/18 09:00 05/17/18 08:59 04/27/18 09:08 Bisacodyl (Dulcolax) 5 mg BID ORAL 04/21/18 19:00 05/21/18 18:59 04/26/18 18:08 Chlorhexidine Gluconate (Nivia-Hex 2%) 1 applic DAILY@2000 TOPIC 04/13/18 20:00 05/13/18 19:59 04/26/18 20:06 Citalopram Hydrobromide (celeXA) 20 mg DAILY ORAL 04/25/18 12:00 05/25/18 11:59 04/27/18 09:09 Dopamine HCl/ Dextrose 250 ml @ 0 mls/hr Q24H IV 04/18/18 02:00 05/18/18 01:59 04/27/18 09:07 Doxycycline Hyclate 100 mg/ Dextrose 100 ml @ 100 mls/hr Q12HR IV 04/16/18 21:00 04/27/18 23:59 04/27/18 09:06 Guaifenesin (Robitussin) 300 mg Q6H PRN ORAL For Cough 04/14/18 17:00 05/14/18 16:59 04/16/18 02:07 Heparin Sodium (Porcine) (Heparin 5000 units/ml) 5,000 units EVERY 12 HOURS SUBQ 04/12/18 21:00 05/12/18 20:59 04/27/18 09:14 Hydromorphone HCl (Dilaudid) 1 mg Q4H PRN IVP For Pain 04/25/18 11:45 05/02/18 11:44 04/26/18 21:57 Loperamide HCl (Imodium) 2 mg Q4H PRN ORAL Diarrhea 04/25/18 18:15 05/25/18 18:14 04/25/18 18:16 Lorazepam (Ativan) 2 mg Q6H PRN ORAL For Anxiety 04/25/18 11:15 05/02/18 11:14 Meropenem 500 mg/ Sodium Chloride 50 ml @ 100 mls/hr Q24HRS IVPB 04/24/18 14:00 04/27/18 23:59 04/26/18 14:15 Midodrine (Pro-Amatine) 10 mg Q8HR ORAL 04/19/18 14:00 05/19/18 13:59 04/27/18 05:59 Mirtazapine (Remeron) 7.5 mg BEDTIME ORAL 04/25/18 21:00 05/25/18 20:59 04/26/18 21:26 Ondansetron HCl (Zofran) 4 mg Q4H PRN IVP Nausea & Vomiting 04/12/18 17:45 05/12/18 17:44 04/26/18 14:26 Pantoprazole (Protonix) 40 mg BID ORAL 04/25/18 18:00 05/12/18 17:59 04/27/18 09:08 Polyethylene Glycol (Miralax) 17 gm BEDTIME ORAL 04/21/18 21:00 05/21/18 20:59 04/26/18 21:21 Sevelamer Carbonate (Renvela) 2,400 mg THREE TIMES A DAY ORAL 04/23/18 13:00 05/13/18 08:59 04/27/18 09:09 Voriconazole (Vfend) 200 mg EVERY 12 HOURS ORAL 04/24/18 21:00 05/01/18 20:59 04/27/18 09:08 Allergies: Coded Allergies: CEFAZOLIN (Verified Allergy, Unknown, 10/02/10) CIPROFLOXACIN (Verified Allergy, Unknown, 10/02/10) GENTAMICIN (Verified Allergy, Unknown, 10/02/10) KETAMINE (Verified Allergy, Unknown, 03/29/18) LEVOFLOXACIN (Verified Allergy, Unknown, 10/02/10) PENICILLINS (Verified Allergy, Unknown, ITCH, 10/02/10) Uncoded Allergies: CONTRAST MEDIA (Adverse Reaction, Mild, MILD ITCHING AFTER CONTRAST MEDIA, 04/30/17) ROS Limited/Unobtainable: No Constitutional: Reports: no symptoms HEENT: Reports: no symptoms Cardiovascular: Reports: no symptoms Respiratory: Reports: no symptoms Gastrointestinal/Abdominal: Reports: no symptoms Genitourinary: Reports: no symptoms Neurologic/Psychiatric: Reports: no symptoms Subjective 53 YO F admitted with shortness of breath. Now pneumonia. Cover for Silvestre Lopez- Dr Henley. ICU. Continues on dopamine. Objective Last Vital Signs Date Time Temp Pulse Resp B/P (MAP) Pulse Ox O2 Delivery O2 Flow Rate FiO2 04/27/18 12:00 73 04/27/18 12:00 Nasal Cannula 4.0 04/27/18 12:00 98.8 20 99/52 (68) 75 04/27/18 06:35 36 Laboratory Tests Test 04/27/18 05:30 White Blood Count 5.4 K/UL (4.8-10.8) Red Blood Count 2.99 M/UL (4.20-5.40) L Hemoglobin 9.1 G/DL (12.0-16.0) L Hematocrit 27.5 % (37.0-47.0) L Mean Corpuscular Volume 92 FL (80-99) Mean Corpuscular Hemoglobin 30.4 PG (27.0-31.0) Mean Corpuscular Hemoglobin Concent 33.1 G/DL (32.0-36.0) Red Cell Distribution Width 14.7 % (11.6-14.8) Platelet Count 168 K/UL (150-450) Mean Platelet Volume 9.6 FL (6.5-10.1) Neutrophils (%) (Auto) 70.4 % (45.0-75.0) Lymphocytes (%) (Auto) 15.0 % (20.0-45.0) L Monocytes (%) (Auto) 12.7 % (1.0-10.0) H Eosinophils (%) (Auto) 1.6 % (0.0-3.0) Basophils (%) (Auto) 0.4 % (0.0-2.0) Sodium Level 131 MMOL/L (136-145) L Potassium Level 4.2 MMOL/L (3.5-5.1) Chloride Level 92 MMOL/L (98-107) L Carbon Dioxide Level 27 MMOL/L (21-32) Anion Gap 12 mmol/L (5-15) Blood Urea Nitrogen 33 mg/dL (7-18) H Creatinine 8.2 MG/DL (0.55-1.30) H Estimat Glomerular Filtration Rate 6.2 mL/min (>60) Glucose Level 86 MG/DL (74-106) Calcium Level 9.8 MG/DL (8.5-10.1) Total Bilirubin 0.7 MG/DL (0.2-1.0) Aspartate Amino Transf (AST/SGOT) 16 U/L (15-37) Alanine Aminotransferase (ALT/SGPT) 16 U/L (12-78) Alkaline Phosphatase 215 U/L (46-116) H Pro-B-Type Natriuretic Peptide 4549 pg/mL (0-125) H Total Protein 7.7 G/DL (6.4-8.2) Albumin 2.8 G/DL (3.4-5.0) L Globulin 4.9 g/dL Albumin/Globulin Ratio 0.6 (1.0-2.7) L Microbiology Date/Time Source Procedure Growth Status 04/24/18 15:15 Blood Blood Culture - Preliminary NO GROWTH AFTER 48 HOURS Resulted 04/24/18 15:10 Blood Blood Culture - Preliminary NO GROWTH AFTER 48 HOURS Resulted Intake and Output 04/26/18 04/27/18 18:59 06:59 Intake Total 750.562 ml 482.537 ml Output Total 500 ml 0 ml Balance 250.562 ml 482.537 ml Intake Oral 130 ml IV Total 620.562 ml 482.537 ml Output Urine Total 0 ml 0 ml Hemodialysis UF 500 ml # Bowel Movements 1 Objective Objective GENERAL: Awake, responsive, alert HEAD AND NECK: Pupils equal and reactive to light. Extraocular movements intact. Neck was supple. No JVD. LUNGS: Fair air entry. Poor respiratory effort. No wheeze or rhonchi. Decreased air in the bases. HEART: S1 and S2. Distant heart sounds. No murmur. ABDOMEN: Soft, nondistended, and nontender. Morbidly obese. EXTREMITIES: No cyanosis, clubbing, or edema. Right femoral area PermCath as well as left upper extremity AV fistula, functional. NEUROLOGIC: Cranial nerves II through XII are grossly intact. The patient is moving all the extremities spontaneously. Gait was not assessed due to the patient's status. PSYCHIATRIC: Mood and affect are intact. Assessment/Plan Assessment/Plan Assessment/Plan Assessment/Plan 1. Sepsis, most likely secondary to left upper lobe and, to a lesser extent, medial right lower lobe most likely representing multifocal pneumonia. 2. Hypotension, possible septic shock. 3. Pancytopenia with severe thrombocytopenia resolving. 4. End-stage renal disease, on hemodialysis. 5. Altered mental status, most likely toxic metabolic encephalopathy as a result of infection as well as uremia. 6. Anemia of chronic kidney disease. 7. Morbid obesity. 8. Bradycardia. 9. Diarrhea 10. Abdominal pain. PLAN: In ICU. follow up laboratory and cultures. Dr. Fredrick Conner from Nephrology consult; Hemodialysis 04/26/18. Dr. Mcbride from ID consult. Discussed with the family member, brother at the bedside. Abx:Meropenem, doxycycline and vfend per ID Code status is Full Code. DVT prophylaxis: heparin subcutaneous. continue Dopamine Drip CT of chest noted. Cortisol level Pending. C. Diff neg. Send stool for repeat Continue dopamine See GI consult; KUB=no obstruction advance diet Edward Harrell MD Apr 27, 2018 12:51
[2018-04-27] MEDS: HYDROmorphone 1mg/ml Carpuject IVP PRN ×2 (13:24→17:39)
--- NOTE | 2018-04-27 15:00 | NUR ---
NURSE NOTES: Cleaned up pt room, refused repositioning and cleaning up. pt states comfortable right now and don't want to move. VSS.
--- NOTE | 2018-04-27 15:24 | Nephrology Progress Note ---
Assessment/Plan Problem List: (1) ESRD (end stage renal disease) on dialysis (2) Hypotension (3) Anemia of renal disease (4) Metabolic encephalopathy (5) Pneumonia Assessment ESRD on HD- HypoThyroidism- Periodic Hypotension- encephalopathic , metabolic- Plan bp still maintained on dopamin dialysis next 04/28 recheck serum cortisol level add asa and isordil for rising Troponin add prn imodium for loose bm per orders midodrine per consultants antibiotics for pneumonia Cardiac advise for low HR Subjective ROS Limited/Unobtainable: No Constitutional: Reports: malaise Objective Objective Last 24 Hour Vital Signs Date Time Temp Pulse Resp B/P (MAP) Pulse Ox O2 Delivery O2 Flow Rate FiO2 04/27/18 12:00 73 04/27/18 12:00 Nasal Cannula 4.0 04/27/18 12:00 98.8 89 20 99/52 (68) 75 04/27/18 11:00 75 19 106/49 (68) 93 04/27/18 10:30 72 14 90/50 (63) 96 04/27/18 10:00 76 16 88/41 (57) 93 04/27/18 09:30 84 18 88/42 (57) 97 04/27/18 09:07 86/43 04/27/18 09:00 75 15 86/43 (57) 04/27/18 08:30 70 15 95/52 (66) 93 04/27/18 08:00 72 04/27/18 08:00 82 21 101/48 (65) 90 04/27/18 08:00 Nasal Cannula 4.0 04/27/18 07:30 73 16 98/53 (68) 97 04/27/18 07:00 98.7 75 17 93/44 (60) 92 04/27/18 06:35 Nasal Cannula 4.0 36 04/27/18 06:35 93 Nasal Cannula 4.0 36 04/27/18 06:00 74 20 92/50 (64) 96 04/27/18 06:00 92/48 04/27/18 05:30 74 20 92/50 (64) 96 04/27/18 05:00 68/52 04/27/18 05:00 74 20 92/50 (64) 96 04/27/18 04:30 70 22 94/50 (65) 92 04/27/18 04:00 98.0 68 20 92/54 (67) 98 04/27/18 04:00 Nasal Cannula 4.0 04/27/18 04:00 87/44 04/27/18 04:00 75 04/27/18 03:30 74 18 95/46 (62) 94 04/27/18 03:00 104/47 04/27/18 03:00 61 20 92/50 (64) 92 04/27/18 02:30 71 20 64/17 (33) 95 04/27/18 02:00 70 20 54/11 (25) 97 04/27/18 02:00 50/11 04/27/18 01:30 63 20 95/50 (65) 97 04/27/18 01:29 64/19 04/27/18 01:00 71 20 100/76 (84) 97 04/27/18 00:38 75 04/27/18 00:30 98.2 69 20 96/46 (63) 97 04/27/18 00:00 Nasal Cannula 4.0 04/27/18 00:00 69 04/27/18 00:00 94/60 04/27/18 00:00 98.2 69 20 110/50 (70) 97 04/26/18 23:30 86 20 102/46 (64) 97 04/26/18 23:15 80 20 96/36 (56) 97 04/26/18 23:00 76 20 92/36 (54) 97 04/26/18 23:00 100/32 04/26/18 22:45 74 17 100/46 (64) 98 04/26/18 22:30 77 20 96/32 (53) 97 04/26/18 22:24 Nasal Cannula 3.0 32 04/26/18 22:24 97 Nasal Cannula 3.0 32 04/26/18 22:15 86 20 100/36 (57) 97 04/26/18 22:00 106/44 04/26/18 22:00 77 20 105/44 (64) 97 04/26/18 21:45 77 20 96/36 (56) 97 04/26/18 21:30 83 18 96/36 (56) 98 04/26/18 21:00 94/52 04/26/18 20:45 71 21 100/45 (63) 100 04/26/18 20:30 79 22 90/34 (52) 95 04/26/18 20:15 75 18 86/66 (73) 98 04/26/18 20:15 72 18 87/46 (60) 91 04/26/18 20:00 75 04/26/18 20:00 87/46 04/26/18 20:00 97.5 69 18 101/69 (80) 99 04/26/18 20:00 Nasal Cannula 4.0 04/26/18 20:00 75 18 86/66 (73) 98 04/26/18 19:45 75 18 86/66 (73) 98 04/26/18 19:45 67 18 97/46 (63) 100 04/26/18 19:30 75 18 101/69 (80) 98 04/26/18 19:30 74 20 96/52 (67) 94 04/26/18 19:15 79 18 91/41 (58) 98 04/26/18 19:15 74 21 79/62 (68) 26 04/26/18 19:06 79 18 79/62 (68) 04/26/18 19:00 75 18 86/66 (73) 98 04/26/18 19:00 75 20 79/58 (65) 04/26/18 18:45 75 18 86/66 (73) 98 04/26/18 18:30 73 18 91/40 (57) 98 04/26/18 18:15 74 18 92/26 (48) 98 04/26/18 18:00 67 18 92/26 (48) 98 04/26/18 18:00 108/34 04/26/18 17:45 71 18 108/34 (58) 98 04/26/18 17:30 77 18 103/24 (50) 98 04/26/18 17:15 69 18 103/24 (50) 98 04/26/18 17:00 72 18 106/30 (55) 98 04/26/18 17:00 99/21 04/26/18 16:49 113/43 04/26/18 16:45 73 18 113/39 (63) 98 04/26/18 16:30 79 18 105/48 (67) 98 04/26/18 16:15 91 18 113/43 (66) 100 04/26/18 16:00 78 04/26/18 16:00 105/48 04/26/18 16:00 Nasal Cannula 4.0 04/26/18 16:00 98.3 73 18 105/48 (67) 100 04/26/18 15:45 77 18 125/33 (63) 100 04/26/18 15:30 83 18 125/33 (63) 100 Intake and Output 04/26/18 04/27/18 19:00 07:00 Intake Total 737.020 ml 452.069 ml Output Total 500 ml 0 ml Balance 237.020 ml 452.069 ml Intake Oral 130 ml IV Total 607.020 ml 452.069 ml Output Urine Total 0 ml 0 ml Hemodialysis UF 500 ml # Bowel Movements 1 Laboratory Tests 04/27/18 05:30: White Blood Count 5.4, Red Blood Count 2.99L, Hemoglobin 9.1L, Hematocrit 27.5L , Mean Corpuscular Volume 92, Mean Corpuscular Hemoglobin 30.4, Mean Corpuscular Hemoglobin Concent 33.1, Red Cell Distribution Width 14.7, Platelet Count 168, Mean Platelet Volume 9.6, Neutrophils (%) (Auto) 70.4, Lymphocytes (% ) (Auto) 15.0L, Monocytes (%) (Auto) 12.7H, Eosinophils (%) (Auto) 1.6, Basophils (%) (Auto) 0.4, Sodium Level 131L, Potassium Level 4.2, Chloride Level 92L, Carbon Dioxide Level 27, Anion Gap 12, Blood Urea Nitrogen 33H, Creatinine 8.2H, Estimat Glomerular Filtration Rate 6.2, Glucose Level 86, Calcium Level 9.8, Total Bilirubin 0.7, Aspartate Amino Transf (AST/SGOT) 16, Alanine Aminotransferase (ALT/SGPT) 16, Alkaline Phosphatase 215H, Pro-B-Type Natriuretic Peptide 4549H, Total Protein 7.7, Albumin 2.8L, Globulin 4.9, Albumin/Globulin Ratio 0.6L Height (Feet): 5 Height (Inches): 6.00 Weight (Pounds): 200 General Appearance: no apparent distress Cardiovascular: regular rhythm Respiratory/Chest: decreased breath sounds Abdomen: soft Objective no change Fredrick Conner MD Apr 27, 2018 15:24
--- NOTE | 2018-04-27 15:35 | Cardiac Electrophysiology PN ---
Assessment/Plan Assessment/Plan 1. Troponin leak due to renal failure. Levels low and flat. No chest pain. 2. Septic shock. Dopamine drip decreased to 6 mcg. Continue midodrine 10 mg tid and iv Abx per ID 3. Bradycardia. On dopamine 4. Anterior T-wave inversion. No chest pain. EF 60% 5. End-stage renal disease, on hemodialysis, per Dr. Conner. 6. Diarrhea C Diff was negative DW RN Subjective Subjective On Dopamine drip 6 mcg. HD done yesterday with 500cc fluid removal . No other events.Alert in NAD Objective Last 24 Hour Vital Signs Date Time Temp Pulse Resp B/P (MAP) Pulse Ox O2 Delivery O2 Flow Rate FiO2 04/27/18 12:00 73 04/27/18 12:00 Nasal Cannula 4.0 04/27/18 12:00 98.8 89 20 99/52 (68) 75 04/27/18 11:00 75 19 106/49 (68) 93 04/27/18 10:30 72 14 90/50 (63) 96 04/27/18 10:00 76 16 88/41 (57) 93 04/27/18 09:30 84 18 88/42 (57) 97 04/27/18 09:07 86/43 04/27/18 09:00 75 15 86/43 (57) 04/27/18 08:30 70 15 95/52 (66) 93 04/27/18 08:00 72 04/27/18 08:00 82 21 101/48 (65) 90 04/27/18 08:00 Nasal Cannula 4.0 04/27/18 07:30 73 16 98/53 (68) 97 04/27/18 07:00 98.7 75 17 93/44 (60) 92 04/27/18 06:35 Nasal Cannula 4.0 36 04/27/18 06:35 93 Nasal Cannula 4.0 36 04/27/18 06:00 74 20 92/50 (64) 96 04/27/18 06:00 92/48 04/27/18 05:30 74 20 92/50 (64) 96 04/27/18 05:00 68/52 04/27/18 05:00 74 20 92/50 (64) 96 04/27/18 04:30 70 22 94/50 (65) 92 04/27/18 04:00 98.0 68 20 92/54 (67) 98 04/27/18 04:00 Nasal Cannula 4.0 04/27/18 04:00 87/44 04/27/18 04:00 75 04/27/18 03:30 74 18 95/46 (62) 94 04/27/18 03:00 104/47 04/27/18 03:00 61 20 92/50 (64) 92 04/27/18 02:30 71 20 64/17 (33) 95 04/27/18 02:00 70 20 54/11 (25) 97 04/27/18 02:00 50/11 04/27/18 01:30 63 20 95/50 (65) 97 04/27/18 01:29 64/19 04/27/18 01:00 71 20 100/76 (84) 97 04/27/18 00:38 75 04/27/18 00:30 98.2 69 20 96/46 (63) 97 04/27/18 00:00 Nasal Cannula 4.0 04/27/18 00:00 69 04/27/18 00:00 94/60 04/27/18 00:00 98.2 69 20 110/50 (70) 97 04/26/18 23:30 86 20 102/46 (64) 97 04/26/18 23:15 80 20 96/36 (56) 97 04/26/18 23:00 76 20 92/36 (54) 97 04/26/18 23:00 100/32 04/26/18 22:45 74 17 100/46 (64) 98 04/26/18 22:30 77 20 96/32 (53) 97 04/26/18 22:24 Nasal Cannula 3.0 32 04/26/18 22:24 97 Nasal Cannula 3.0 32 04/26/18 22:15 86 20 100/36 (57) 97 04/26/18 22:00 106/44 04/26/18 22:00 77 20 105/44 (64) 97 04/26/18 21:45 77 20 96/36 (56) 97 04/26/18 21:30 83 18 96/36 (56) 98 04/26/18 21:00 94/52 04/26/18 20:45 71 21 100/45 (63) 100 04/26/18 20:30 79 22 90/34 (52) 95 04/26/18 20:15 75 18 86/66 (73) 98 04/26/18 20:15 72 18 87/46 (60) 91 04/26/18 20:00 75 04/26/18 20:00 87/46 04/26/18 20:00 97.5 69 18 101/69 (80) 99 04/26/18 20:00 Nasal Cannula 4.0 04/26/18 20:00 75 18 86/66 (73) 98 04/26/18 19:45 75 18 86/66 (73) 98 04/26/18 19:45 67 18 97/46 (63) 100 04/26/18 19:30 75 18 101/69 (80) 98 04/26/18 19:30 74 20 96/52 (67) 94 04/26/18 19:15 79 18 91/41 (58) 98 04/26/18 19:15 74 21 79/62 (68) 26 04/26/18 19:06 79 18 79/62 (68) 04/26/18 19:00 75 18 86/66 (73) 98 04/26/18 19:00 75 20 79/58 (65) 04/26/18 18:45 75 18 86/66 (73) 98 04/26/18 18:30 73 18 91/40 (57) 98 04/26/18 18:15 74 18 92/26 (48) 98 04/26/18 18:00 67 18 92/26 (48) 98 04/26/18 18:00 108/34 04/26/18 17:45 71 18 108/34 (58) 98 04/26/18 17:30 77 18 103/24 (50) 98 04/26/18 17:15 69 18 103/24 (50) 98 04/26/18 17:00 72 18 106/30 (55) 98 04/26/18 17:00 99/21 04/26/18 16:49 113/43 04/26/18 16:45 73 18 113/39 (63) 98 04/26/18 16:30 79 18 105/48 (67) 98 04/26/18 16:15 91 18 113/43 (66) 100 1/8/19 16:00 78 04/26/18 16:00 105/48 04/26/18 16:00 Nasal Cannula 4.0 04/26/18 16:00 98.3 73 18 105/48 (67) 100 04/26/18 15:45 77 18 125/33 (63) 100 Intake and Output 04/26/18 04/27/18 19:00 07:00 Intake Total 737.020 ml 452.069 ml Output Total 500 ml 0 ml Balance 237.020 ml 452.069 ml Intake Oral 130 ml IV Total 607.020 ml 452.069 ml Output Urine Total 0 ml 0 ml Hemodialysis UF 500 ml # Bowel Movements 1 Laboratory Tests Test 04/27/18 05:30 White Blood Count 5.4 K/UL (4.8-10.8) Red Blood Count 2.99 M/UL (4.20-5.40) L Hemoglobin 9.1 G/DL (12.0-16.0) L Hematocrit 27.5 % (37.0-47.0) L Mean Corpuscular Volume 92 FL (80-99) Mean Corpuscular Hemoglobin 30.4 PG (27.0-31.0) Mean Corpuscular Hemoglobin Concent 33.1 G/DL (32.0-36.0) Red Cell Distribution Width 14.7 % (11.6-14.8) Platelet Count 168 K/UL (150-450) Mean Platelet Volume 9.6 FL (6.5-10.1) Neutrophils (%) (Auto) 70.4 % (45.0-75.0) Lymphocytes (%) (Auto) 15.0 % (20.0-45.0) L Monocytes (%) (Auto) 12.7 % (1.0-10.0) H Eosinophils (%) (Auto) 1.6 % (0.0-3.0) Basophils (%) (Auto) 0.4 % (0.0-2.0) Sodium Level 131 MMOL/L (136-145) L Potassium Level 4.2 MMOL/L (3.5-5.1) Chloride Level 92 MMOL/L (98-107) L Carbon Dioxide Level 27 MMOL/L (21-32) Anion Gap 12 mmol/L (5-15) Blood Urea Nitrogen 33 mg/dL (7-18) H Creatinine 8.2 MG/DL (0.55-1.30) H Estimat Glomerular Filtration Rate 6.2 mL/min (>60) Glucose Level 86 MG/DL (74-106) Calcium Level 9.8 MG/DL (8.5-10.1) Total Bilirubin 0.7 MG/DL (0.2-1.0) Aspartate Amino Transf (AST/SGOT) 16 U/L (15-37) Alanine Aminotransferase (ALT/SGPT) 16 U/L (12-78) Alkaline Phosphatase 215 U/L (46-116) H C-Reactive Protein, Quantitative Pending Pro-B-Type Natriuretic Peptide 4549 pg/mL (0-125) H Total Protein 7.7 G/DL (6.4-8.2) Albumin 2.8 G/DL (3.4-5.0) L Globulin 4.9 g/dL Albumin/Globulin Ratio 0.6 (1.0-2.7) L Objective HEAD AND NECK: No JVD. LUNGS: Decreased breath sounds. CARDIOVASCULAR: Regular S1 and S2 no GRM ABDOMEN: Soft. EXTREMITIES: No edema Tc Liang MD Apr 27, 2018 15:35
--- NOTE | 2018-04-27 15:52 | Diagnostic Imaging Report ---
Indication: Shortness of breath Technique: One view of the chest Comparison: 04/26/2018 Findings: Again demonstrated is lateral pleural thickening and a peripheral polygonal dense parenchymal opacity, the latter appearing slightly larger than on the previous study. There is some hazy opacity in the right upper lung which is new since the prior study. Mild generalized interstitial prominence is again demonstrated. Right arm stent, bilateral axillary surgical clips are again noted. Femoral approach dialysis catheter is again noted, tip in the high right atrium. Impression: Increased size of left lateral pulmonary parenchymal opacity. This reflects dense consolidation demonstrated on prior radiographs and CT scan, perhaps slightly worse than on the previous study. Persistent lateral pleural thickening versus fluid. Possible hazy infiltrate in the right upper lobe Other stable findings as described
--- NOTE | 2018-04-27 17:52 | NUR ---
CASE MANAGEMENT: REVIEW SI: ESRD ON HD . PNA T 98.8 HR 89 RR 20 BP 86/43 SAT 75% NC/4L IS: DOXYCYCLINE IV Q12HR MEROPENEM IV Q24HR MIDODRINE PO Q8HR HEPARIN SQ Q12HR PROTONIX PO BID DOPAMINE IV Q24HR VORICONAZOLE PO Q12HR HD PRN ICU STATUS DCP: PATIENT IS FROM HOME
--- NOTE | 2018-04-27 19:17 | NUR ---
HAND-OFF: Report given to daniella. pt in no acute distress.
--- NOTE | 2018-04-27 19:35 | NUR ---
NURSE NOTES: pt asleep responsive and oriented no acute distress noted reposition herself
[2018-04-27] MEDS: Dyna-Hex 2% Top Sol 2oz TOPIC SCH (20:05)
[2018-04-27] MEDS: Miralax 17gm pkt ORAL SCH (21:00)
--- NOTE | 2018-04-27 21:41 | General Progress Note ---
Assessment/Plan Problem List: (1) Anxiety ICD Codes: F41.9 - Anxiety disorder, unspecified SNOMED: 33998386 (2) Panic attack ICD Codes: F41.0 - Panic disorder [episodic paroxysmal anxiety] SNOMED: 862340390 Status: stable Assessment/Plan cont current meds provided ro/st Subjective Neurologic/Psychiatric: Reports: anxiety, depressed, emotional problems Allergies: Coded Allergies: CEFAZOLIN (Verified Allergy, Unknown, 10/02/10) CIPROFLOXACIN (Verified Allergy, Unknown, 10/02/10) GENTAMICIN (Verified Allergy, Unknown, 10/02/10) KETAMINE (Verified Allergy, Unknown, 03/29/18) LEVOFLOXACIN (Verified Allergy, Unknown, 10/02/10) PENICILLINS (Verified Allergy, Unknown, ITCH, 10/02/10) Uncoded Allergies: CONTRAST MEDIA (Adverse Reaction, Mild, MILD ITCHING AFTER CONTRAST MEDIA, 04/30/17) Objective Last 24 Hour Vital Signs Date Time Temp Pulse Resp B/P (MAP) Pulse Ox O2 Delivery O2 Flow Rate FiO2 04/27/18 21:30 78 16 91/41 (58) 97 04/27/18 21:00 78 16 101/33 (55) 97 04/27/18 20:30 66 19 98/45 (62) 96 04/27/18 20:07 Nasal Cannula 3.0 04/27/18 20:07 97 Nasal Cannula 3.0 04/27/18 20:00 Nasal Cannula 4.0 04/27/18 20:00 68 04/27/18 20:00 98.4 63 19 95/33 (53) 96 04/27/18 19:30 63 19 93/33 (53) 96 04/27/18 19:00 95/45 04/27/18 19:00 63 19 95/45 (62) 96 04/27/18 18:30 61 13 109/39 (62) 96 04/27/18 18:24 65/34 04/27/18 18:00 66 14 110/49 (69) 96 04/27/18 17:00 62 20 52/35 (41) 96 04/27/18 16:30 62 17 82/38 (53) 96 04/27/18 16:00 63 04/27/18 16:00 98.6 62 15 94/41 (58) 93 04/27/18 16:00 Nasal Cannula 4.0 1/9/19 15:30 69 15 94/53 (67) 94 04/27/18 15:00 67 13 95/50 (65) 93 04/27/18 14:30 69 16 84/53 (63) 95 04/27/18 14:00 71 13 79/48 (58) 95 04/27/18 13:30 89 22 106/57 (73) 91 04/27/18 13:00 91 21 110/67 (81) 92 04/27/18 12:00 73 04/27/18 12:00 Nasal Cannula 4.0 04/27/18 12:00 98.8 89 20 99/52 (68) 75 04/27/18 11:00 75 19 106/49 (68) 93 04/27/18 10:30 72 14 90/50 (63) 96 04/27/18 10:00 76 16 88/41 (57) 93 04/27/18 09:30 84 18 88/42 (57) 97 04/27/18 09:07 86/43 04/27/18 09:00 75 15 86/43 (57) 04/27/18 08:30 70 15 95/52 (66) 93 04/27/18 08:00 72 04/27/18 08:00 82 21 101/48 (65) 90 04/27/18 08:00 Nasal Cannula 4.0 04/27/18 07:30 73 16 98/53 (68) 97 04/27/18 07:00 98.7 75 17 93/44 (60) 92 04/27/18 06:35 Nasal Cannula 4.0 36 04/27/18 06:35 93 Nasal Cannula 4.0 36 04/27/18 06:00 74 20 92/50 (64) 96 04/27/18 06:00 92/48 04/27/18 05:30 74 20 92/50 (64) 96 04/27/18 05:00 68/52 04/27/18 05:00 74 20 92/50 (64) 96 04/27/18 04:30 70 22 94/50 (65) 92 04/27/18 04:00 98.0 68 20 92/54 (67) 98 04/27/18 04:00 Nasal Cannula 4.0 04/27/18 04:00 87/44 04/27/18 04:00 75 04/27/18 03:30 74 18 95/46 (62) 94 04/27/18 03:00 104/47 04/27/18 03:00 61 20 92/50 (64) 92 04/27/18 02:34 68 16 56/27 (37) 96 04/27/18 02:30 71 20 64/17 (33) 95 04/27/18 02:30 66 15 64/17 (33) 92 04/27/18 02:18 70 18 71/15 (33) 96 04/27/18 02:00 67 16 73/41 (52) 93 04/27/18 02:00 70 20 54/11 (25) 97 04/27/18 02:00 50/11 04/27/18 01:45 63 15 95/59 (71) 94 04/27/18 01:30 61 18 103/42 (62) 89 04/27/18 01:30 63 20 95/50 (65) 97 04/27/18 01:29 64/19 04/27/18 01:19 71 14 64/19 (34) 87 04/27/18 01:15 81 15 56/45 (49) 89 04/27/18 01:00 71 20 100/76 (84) 97 04/27/18 01:00 66 13 99/49 (66) 89 04/27/18 00:45 66 13 104/53 (70) 91 04/27/18 00:38 75 04/27/18 00:30 98.2 69 20 96/46 (63) 97 04/27/18 00:30 79 15 94/72 (79) 89 04/27/18 00:15 68 14 110/50 (70) 89 04/27/18 00:00 Nasal Cannula 4.0 04/27/18 00:00 70 14 99/48 (65) 89 04/27/18 00:00 69 04/27/18 00:00 94/60 04/27/18 00:00 98.2 69 20 110/50 (70) 97 04/26/18 23:30 86 20 102/46 (64) 97 04/26/18 23:15 80 20 96/36 (56) 97 04/26/18 23:00 76 20 92/36 (54) 97 04/26/18 23:00 100/32 04/26/18 22:45 74 17 100/46 (64) 98 04/26/18 22:30 77 20 96/32 (53) 97 04/26/18 22:24 Nasal Cannula 3.0 32 04/26/18 22:24 97 Nasal Cannula 3.0 32 04/26/18 22:15 86 20 100/36 (57) 97 04/26/18 22:00 106/44 04/26/18 22:00 77 20 105/44 (64) 97 04/26/18 21:45 77 20 96/36 (56) 97 Intake and Output 04/26/18 04/27/18 19:00 07:00 Intake Total 737.020 ml 452.069 ml Output Total 500 ml 0 ml Balance 237.020 ml 452.069 ml Intake Oral 130 ml IV Total 607.020 ml 452.069 ml Output Urine Total 0 ml 0 ml Hemodialysis UF 500 ml # Bowel Movements 1 Laboratory Tests 04/27/18 05:30: White Blood Count 5.4, Red Blood Count 2.99L, Hemoglobin 9.1L, Hematocrit 27.5L , Mean Corpuscular Volume 92, Mean Corpuscular Hemoglobin 30.4, Mean Corpuscular Hemoglobin Concent 33.1, Red Cell Distribution Width 14.7, Platelet Count 168, Mean Platelet Volume 9.6, Neutrophils (%) (Auto) 70.4, Lymphocytes (% ) (Auto) 15.0L, Monocytes (%) (Auto) 12.7H, Eosinophils (%) (Auto) 1.6, Basophils (%) (Auto) 0.4, Sodium Level 131L, Potassium Level 4.2, Chloride Level 92L, Carbon Dioxide Level 27, Anion Gap 12, Blood Urea Nitrogen 33H, Creatinine 8.2H, Estimat Glomerular Filtration Rate 6.2, Glucose Level 86, Calcium Level 9.8, Total Bilirubin 0.7, Aspartate Amino Transf (AST/SGOT) 16, Alanine Aminotransferase (ALT/SGPT) 16, Alkaline Phosphatase 215H, C-Reactive Protein, Quantitative 38.0H, Pro-B-Type Natriuretic Peptide 4549H, Total Protein 7.7, Albumin 2.8L, Globulin 4.9, Albumin/Globulin Ratio 0.6L Height (Feet): 5 Height (Inches): 6.00 Weight (Pounds): 200 General Appearance: alert, moderate distress, agitated, obese Neurologic: oriented x 3, responsive, depressed affect Edwin Brown MD Apr 27, 2018 21:41
--- NOTE | 2018-04-27 22:00 | NUR ---
NURSE NOTES: unable to titrate < dopa drip bp53/20 dopa drip at 8mcg /kg/min with bp95/56
[2018-04-28] VITALS (55 sets, daily range): BP systolic 77–140; BP diastolic 17–74
--- NOTE | 2018-04-28 | NUR ---
NURSE NOTES:note asleep no acute distress
[2018-04-28] MEDS: DOPamine 400mg/250ml 250 ML IV SCH ×3 (01:39→18:22)
--- NOTE | 2018-04-28 02:00 | NUR ---
NURSE NOTES: asleep reposition herself
[2018-04-28] MEDS: HYDROmorphone 1mg/ml Carpuject IVP PRN ×2 (02:57→18:17)
--- NOTE | 2018-04-28 03:00 | NUR ---
NURSE NOTES: awake and c/o off abdominal pain medicated with diluadid 1mg with relief
--- NOTE | 2018-04-28 04:00 | NUR ---
NURSE NOTES: asleep no c/o off pain reposition herself
[2018-04-28] MEDS: Midodrine 10mg tab ORAL SCH ×3 (05:51→22:46)
--- NOTE | 2018-04-28 06:00 | NUR ---
NURSE NOTES: c/o n/v vomited 300cc brounish color emesis oral care done medicated with jet as order
--- NOTE | 2018-04-28 07:08 | NUR ---
HAND-OFF: Report given to chemo fuentes using sbar.
[2018-04-28 07:21] LABS: BASOPHILS % (AUTO) 0.5 % (0.0-2.0); HEMATOCRIT 26.4 % (37.0-47.0); HEMOGLOBIN 8.6 G/DL (12.0-16.0); LYMPHOCYTES % (AUTO) 18.4 % (20.0-45.0); MEAN CORPUSCULAR VOLUME 92 FL (80-99); MONOCYTES % (AUTO) 10.8 % (1.0-10.0); NEUTROPHILS % (AUTO) 68.3 % (45.0-75.0); PLATELET COUNT 172 K/UL (150-450); RED BLOOD COUNT 2.86 M/UL (4.20-5.40); RED CELL DISTRIBUTION WIDTH 14.7 % (11.6-14.8)
--- NOTE | 2018-04-28 07:25 | NUR ---
NURSE NOTES: Received report from WILLI Childress. Patient resting in bed, opens eyes spontaneously and to voice. AA/OX4. On R.A, 02sat 95%. Abdomen round, non tender, bowel sounds present. pt c/o of nausea. vomited x1 . Anuric. Skin intact. IV access RT femoral PermaCath, running Dopamine @8mcg/kg/min. Fall precautions in place. HOB>30. Call light in reach. Bed locked and in low position, bed alarm on. Education on medication S.E and plan of care for today.
[2018-04-28 07:46] LABS: ALANINE AMINOTRANSFERASE 21 U/L (12-78); ALBUMIN 2.7 G/DL (3.4-5.0); ALBUMIN/GLOBULIN RATIO 0.6 (1.0-2.7); ALKALINE PHOSPHATASE 580 U/L (46-116); ANION GAP 14 mmol/L (5-15); ASPARTATE AMINO TRANSFERASE 66 U/L (15-37); BILIRUBIN,TOTAL 1.7 MG/DL (0.2-1.0); BLOOD UREA NITROGEN 41 mg/dL (7-18); CALCIUM 9.7 MG/DL (8.5-10.1); CARBON DIOXIDE 24 MMOL/L (21-32); CHLORIDE 90 MMOL/L (98-107); CREATININE 9.1 MG/DL (0.55-1.30); PHOSPHORUS 5.1 MG/DL (2.5-4.9); POTASSIUM 4.5 MMOL/L (3.5-5.1); SODIUM 128 MMOL/L (136-145)
[2018-04-28 07:48] LABS: BILIRUBIN,DIRECT 1.2 MG/DL (0.0-0.3)
--- NOTE | 2018-04-28 08:55 | NUR ---
NURSE NOTES: Bonny De La Cruz.N HERE TO START H.D. PT HAD TWO VOMITING EPISODES, WITH GREEN LEAF AND RED STREAKS PRESENT. PRIOR TO PT BEGIN CONNECTED TO H.D, REQUESTED ASSISTANCE TO BEDSIDE COMMODE. PT HAD ONE SMALL BM, LIGHT BROWN SOFT. BACK TO BED WITHOUT INCIDENT. WILL CONTINUE TO MONITOR PT.
[2018-04-28] MEDS: Heparin 5000 units/ml inj SUBQ SCH ×2 (09:00→20:42)
[2018-04-28] MEDS: Aspirin Baby 81mg ORAL SCH (09:00)
[2018-04-28] MEDS: Bisacodyl EC 5mg tab ORAL SCH ×2 (09:00→17:02)
[2018-04-28] MEDS: Citalopram Hydrobromide 10mg Tab ORAL SCH (09:00)
[2018-04-28] MEDS ORDERED: Metoclopramide 10mg/2ml Inj IVP SCH (09:45)
[2018-04-28] MEDS ORDERED: Metoclopramide 10mg/2ml Inj IVP PRN ×2 (09:45)
--- NOTE | 2018-04-28 09:52 | Nephrology Progress Note ---
Assessment/Plan Problem List: (1) ESRD (end stage renal disease) on dialysis (2) Hypotension (3) Anemia of renal disease (4) Metabolic encephalopathy (5) Pneumonia Assessment ESRD on HD- HypoThyroidism- Periodic Hypotension- encephalopathic , metabolic- Plan bp still maintained on dopamin dialysis next 04/28 starting shortly Reglan for vomiting recheck serum cortisol level- pending add asa and isordil for rising Troponin add prn imodium for loose bm per orders midodrine per consultants antibiotics for pneumonia Subjective ROS Limited/Unobtainable: No Constitutional: Reports: malaise, weakness, other - vomited twice Objective Objective Last 24 Hour Vital Signs Date Time Temp Pulse Resp B/P (MAP) Pulse Ox O2 Delivery O2 Flow Rate FiO2 04/28/18 08:30 75 14 113/52 (72) 94 04/28/18 08:00 77 19 111/51 (71) 99 04/28/18 08:00 Nasal Cannula 4.0 04/28/18 07:30 98.6 98 21 113/74 (87) 99 04/28/18 07:02 73 18 105/54 (71) 94 04/28/18 06:00 73 18 115/56 (75) 94 04/28/18 05:30 76 18 115/54 (74) 94 04/28/18 05:00 70 17 97/55 (69) 96 04/28/18 05:00 97/55 04/28/18 04:30 68 17 111/66 (81) 96 04/28/18 04:00 Nasal Cannula 4.0 04/28/18 04:00 111/48 04/28/18 04:00 98.4 72 17 102/48 (66) 96 04/28/18 04:00 72 04/28/18 03:30 68 17 110/48 (68) 96 04/28/18 03:00 68 17 102/48 (66) 96 04/28/18 03:00 102/56 04/28/18 02:30 68 17 78/48 (58) 96 04/28/18 02:00 70 17 97/37 (57) 96 04/28/18 02:00 70/37 04/28/18 01:39 81/59 04/28/18 01:30 68 17 94/50 (65) 94 04/28/18 01:00 94/50 04/28/18 01:00 68 17 91/48 (62) 96 04/28/18 00:30 66 18 85/32 (49) 96 04/28/18 00:00 65 04/28/18 00:00 121/38 04/28/18 00:00 98.4 65 18 77/17 (37) 96 04/28/18 00:00 Nasal Cannula 4.0 04/27/18 23:30 67 16 121/38 (65) 96 04/27/18 23:00 66 18 98/40 (59) 96 04/27/18 22:30 68 16 116/40 (65) 96 04/27/18 22:15 64 15 110/50 (70) 95 04/27/18 22:00 64 14 116/40 (65) 97 04/27/18 22:00 96/46 04/27/18 21:45 63 13 96/46 (63) 99 04/27/18 21:30 78 16 91/41 (58) 97 04/27/18 21:15 78 16 97/41 (59) 97 04/27/18 21:00 101/33 04/27/18 21:00 78 16 101/33 (55) 97 04/27/18 20:30 66 19 98/45 (62) 96 04/27/18 20:07 Nasal Cannula 3.0 04/27/18 20:07 97 Nasal Cannula 3.0 04/27/18 20:00 Nasal Cannula 4.0 04/27/18 20:00 68 04/27/18 20:00 98.4 63 19 95/33 (53) 96 04/27/18 19:30 63 19 93/33 (53) 96 04/27/18 19:00 95/45 04/27/18 19:00 63 19 95/45 (62) 96 04/27/18 18:30 61 13 109/39 (62) 96 04/27/18 18:24 65/34 04/27/18 18:00 66 14 110/49 (69) 96 04/27/18 17:00 62 20 52/35 (41) 96 04/27/18 16:30 62 17 82/38 (53) 96 04/27/18 16:00 63 04/27/18 16:00 98.6 62 15 94/41 (58) 93 04/27/18 16:00 Nasal Cannula 4.0 04/27/18 15:30 69 15 94/53 (67) 94 04/27/18 15:00 67 13 95/50 (65) 93 04/27/18 14:30 69 16 84/53 (63) 95 04/27/18 14:00 71 13 79/48 (58) 95 04/27/18 13:30 89 22 106/57 (73) 91 04/27/18 13:00 91 21 110/67 (81) 92 04/27/18 12:00 73 04/27/18 12:00 Nasal Cannula 4.0 04/27/18 12:00 98.8 89 20 99/52 (68) 75 04/27/18 11:00 75 19 106/49 (68) 93 04/27/18 10:30 72 14 90/50 (63) 96 04/27/18 10:00 76 16 88/41 (57) 93 Intake and Output 04/27/18 04/28/18 19:00 07:00 Intake Total 680.831 ml 397.913 ml Output Total 0 ml 300 ml Balance 680.831 ml 97.913 ml Intake Oral 210 ml IV Total 470.831 ml 397.913 ml Output Urine Total 0 ml 0 ml Emesis 300 ml # Bowel Movements 1 Laboratory Tests 04/28/18 05:25: White Blood Count 5.0, Red Blood Count 2.86L, Hemoglobin 8.6L, Hematocrit 26.4L , Mean Corpuscular Volume 92, Mean Corpuscular Hemoglobin 30.0, Mean Corpuscular Hemoglobin Concent 32.6, Red Cell Distribution Width 14.7, Platelet Count 172, Mean Platelet Volume 9.7, Neutrophils (%) (Auto) 68.3, Lymphocytes (% ) (Auto) 18.4L, Monocytes (%) (Auto) 10.8H, Eosinophils (%) (Auto) 2.0, Basophils (%) (Auto) 0.5, Sodium Level 128L, Potassium Level 4.5, Chloride Level 90L, Carbon Dioxide Level 24, Anion Gap 14, Blood Urea Nitrogen 41H, Creatinine 9.1H, Estimat Glomerular Filtration Rate 5.5, Glucose Level 89, Calcium Level 9.7, Phosphorus Level 5.1H, Magnesium Level 1.9, Total Bilirubin 1.7H, Direct Bilirubin 1.2H, Aspartate Amino Transf (AST/SGOT) 66H, Alanine Aminotransferase (ALT/SGPT) 21, Alkaline Phosphatase 580H, Pro-B-Type Natriuretic Peptide 3925H, Total Protein 7.6, Albumin 2.7L, Globulin 4.9, Albumin/Globulin Ratio 0.6L, Cortisol AM Sample [Pending] Height (Feet): 5 Height (Inches): 6.00 Weight (Pounds): 203 General Appearance: no apparent distress Cardiovascular: normal rate Respiratory/Chest: decreased breath sounds Abdomen: soft Objective no change Fredrick Conner MD Apr 28, 2018 09:52
--- NOTE | 2018-04-28 10:07 | Cardiac Electrophysiology PN ---
Assessment/Plan Assessment/Plan 1. Troponin leak due to renal failure. Levels low and flat. No chest pain. 2. Septic shock. Dopamine drip back to 10 mcg. Continue midodrine 10 mg tid and iv Abx per ID 3. Bradycardia. On dopamine 4. Anterior T-wave inversion. No chest pain. EF 60% 5. End-stage renal disease, on hemodialysis, per Dr. Conner. 6. Diarrhea C Diff was negative DW RN Subjective Subjective On Dopamine drip 10 mcg now on HD. No other events.Alert in NAD Objective Last 24 Hour Vital Signs Date Time Temp Pulse Resp B/P (MAP) Pulse Ox O2 Delivery O2 Flow Rate FiO2 04/28/18 08:30 75 14 113/52 (72) 94 04/28/18 08:00 77 19 111/51 (71) 99 04/28/18 08:00 Nasal Cannula 4.0 04/28/18 07:30 98.6 98 21 113/74 (87) 99 04/28/18 07:02 73 18 105/54 (71) 94 04/28/18 06:00 73 18 115/56 (75) 94 04/28/18 05:30 76 18 115/54 (74) 94 04/28/18 05:00 70 17 97/55 (69) 96 04/28/18 05:00 97/55 04/28/18 04:30 68 17 111/66 (81) 96 04/28/18 04:00 Nasal Cannula 4.0 04/28/18 04:00 111/48 04/28/18 04:00 98.4 72 17 102/48 (66) 96 04/28/18 04:00 72 04/28/18 03:30 68 17 110/48 (68) 96 04/28/18 03:00 68 17 102/48 (66) 96 04/28/18 03:00 102/56 04/28/18 02:30 68 17 78/48 (58) 96 04/28/18 02:00 70 17 97/37 (57) 96 04/28/18 02:00 70/37 04/28/18 01:39 81/59 04/28/18 01:30 68 17 94/50 (65) 94 04/28/18 01:00 94/50 04/28/18 01:00 68 17 91/48 (62) 96 04/28/18 00:30 66 18 85/32 (49) 96 04/28/18 00:00 65 04/28/18 00:00 121/38 04/28/18 00:00 98.4 65 18 77/17 (37) 96 04/28/18 00:00 Nasal Cannula 4.0 04/27/18 23:30 67 16 121/38 (65) 96 04/27/18 23:00 66 18 98/40 (59) 96 04/27/18 22:30 68 16 116/40 (65) 96 04/27/18 22:15 64 15 110/50 (70) 95 04/27/18 22:00 64 14 116/40 (65) 97 04/27/18 22:00 96/46 04/27/18 21:45 63 13 96/46 (63) 99 04/27/18 21:30 78 16 91/41 (58) 97 04/27/18 21:15 78 16 97/41 (59) 97 04/27/18 21:00 101/33 04/27/18 21:00 78 16 101/33 (55) 97 04/27/18 20:30 66 19 98/45 (62) 96 04/27/18 20:07 Nasal Cannula 3.0 04/27/18 20:07 97 Nasal Cannula 3.0 04/27/18 20:00 Nasal Cannula 4.0 04/27/18 20:00 68 04/27/18 20:00 98.4 63 19 95/33 (53) 96 04/27/18 19:30 63 19 93/33 (53) 96 04/27/18 19:00 95/45 04/27/18 19:00 63 19 95/45 (62) 96 04/27/18 18:30 61 13 109/39 (62) 96 04/27/18 18:24 65/34 04/27/18 18:00 66 14 110/49 (69) 96 04/27/18 17:00 62 20 52/35 (41) 96 04/27/18 16:30 62 17 82/38 (53) 96 04/27/18 16:00 63 04/27/18 16:00 98.6 62 15 94/41 (58) 93 04/27/18 16:00 Nasal Cannula 4.0 04/27/18 15:30 69 15 94/53 (67) 94 04/27/18 15:00 67 13 95/50 (65) 93 04/27/18 14:30 69 16 84/53 (63) 95 04/27/18 14:00 71 13 79/48 (58) 95 04/27/18 13:30 89 22 106/57 (73) 91 04/27/18 13:00 91 21 110/67 (81) 92 04/27/18 12:00 73 04/27/18 12:00 Nasal Cannula 4.0 04/27/18 12:00 98.8 89 20 99/52 (68) 75 04/27/18 11:00 75 19 106/49 (68) 93 04/27/18 10:30 72 14 90/50 (63) 96 Intake and Output 04/27/18 04/28/18 19:00 07:00 Intake Total 680.831 ml 397.913 ml Output Total 0 ml 300 ml Balance 680.831 ml 97.913 ml Intake Oral 210 ml IV Total 470.831 ml 397.913 ml Output Urine Total 0 ml 0 ml Emesis 300 ml # Bowel Movements 1 Laboratory Tests Test 04/28/18 05:25 White Blood Count 5.0 K/UL (4.8-10.8) Red Blood Count 2.86 M/UL (4.20-5.40) L Hemoglobin 8.6 G/DL (12.0-16.0) L Hematocrit 26.4 % (37.0-47.0) L Mean Corpuscular Volume 92 FL (80-99) Mean Corpuscular Hemoglobin 30.0 PG (27.0-31.0) Mean Corpuscular Hemoglobin Concent 32.6 G/DL (32.0-36.0) Red Cell Distribution Width 14.7 % (11.6-14.8) Platelet Count 172 K/UL (150-450) Mean Platelet Volume 9.7 FL (6.5-10.1) Neutrophils (%) (Auto) 68.3 % (45.0-75.0) Lymphocytes (%) (Auto) 18.4 % (20.0-45.0) L Monocytes (%) (Auto) 10.8 % (1.0-10.0) H Eosinophils (%) (Auto) 2.0 % (0.0-3.0) Basophils (%) (Auto) 0.5 % (0.0-2.0) Sodium Level 128 MMOL/L (136-145) L Potassium Level 4.5 MMOL/L (3.5-5.1) Chloride Level 90 MMOL/L (98-107) L Carbon Dioxide Level 24 MMOL/L (21-32) Anion Gap 14 mmol/L (5-15) Blood Urea Nitrogen 41 mg/dL (7-18) H Creatinine 9.1 MG/DL (0.55-1.30) H Estimat Glomerular Filtration Rate 5.5 mL/min (>60) Glucose Level 89 MG/DL (74-106) Calcium Level 9.7 MG/DL (8.5-10.1) Phosphorus Level 5.1 MG/DL (2.5-4.9) H Magnesium Level 1.9 MG/DL (1.8-2.4) Total Bilirubin 1.7 MG/DL (0.2-1.0) H Direct Bilirubin 1.2 MG/DL (0.0-0.3) H Aspartate Amino Transf (AST/SGOT) 66 U/L (15-37) H Alanine Aminotransferase (ALT/SGPT) 21 U/L (12-78) Alkaline Phosphatase 580 U/L (46-116) H Pro-B-Type Natriuretic Peptide 3925 pg/mL (0-125) H Total Protein 7.6 G/DL (6.4-8.2) Albumin 2.7 G/DL (3.4-5.0) L Globulin 4.9 g/dL Albumin/Globulin Ratio 0.6 (1.0-2.7) L Cortisol AM Sample Pending Objective HEAD AND NECK: No JVD. LUNGS: Decreased breath sounds. CARDIOVASCULAR: Regular S1 and S2 no GRM ABDOMEN: Soft. EXTREMITIES: No edema Tc Liang MD Apr 28, 2018 10:07
--- NOTE | 2018-04-28 10:17 | Pulmonolgy Critical Care Note ---
Critical Care - Asmt/Plan Problems: (1) Septic shock (2) Pneumonia (3) Hypotension (4) ESRD (end stage renal disease) on dialysis (5) CHF (congestive heart failure) (6) Hypoparathyroidism Respiratory: monitor respiratory rate, adjust FIO2, CXR Cardiac: continue pressors, continue to monitor HR/BP Renal: F/U I&O Infectious Disease: check cultures, continue antibiotics Gastrointestinal: continue feedings/current rate Hematologic: monitor H/H Prophylaxis: Protonix, Heparin Notes Reviewed: snowboarding instructor Discussed with: nurses, consultants, child support case officerbooking manager - Objective Last 24 Hour Vital Signs Date Time Temp Pulse Resp B/P (MAP) Pulse Ox O2 Delivery O2 Flow Rate FiO2 04/28/18 08:30 75 14 113/52 (72) 94 04/28/18 08:00 77 19 111/51 (71) 99 04/28/18 08:00 Nasal Cannula 4.0 04/28/18 07:30 98.6 98 21 113/74 (87) 99 04/28/18 07:02 73 18 105/54 (71) 94 04/28/18 06:00 73 18 115/56 (75) 94 04/28/18 05:30 76 18 115/54 (74) 94 04/28/18 05:00 70 17 97/55 (69) 96 04/28/18 05:00 97/55 04/28/18 04:30 68 17 111/66 (81) 96 04/28/18 04:00 Nasal Cannula 4.0 04/28/18 04:00 111/48 04/28/18 04:00 98.4 72 17 102/48 (66) 96 04/28/18 04:00 72 04/28/18 03:30 68 17 110/48 (68) 96 04/28/18 03:00 68 17 102/48 (66) 96 04/28/18 03:00 102/56 04/28/18 02:30 68 17 78/48 (58) 96 04/28/18 02:00 70 17 97/37 (57) 96 04/28/18 02:00 70/37 04/28/18 01:39 81/59 04/28/18 01:30 68 17 94/50 (65) 94 04/28/18 01:00 94/50 04/28/18 01:00 68 17 91/48 (62) 96 04/28/18 00:30 66 18 85/32 (49) 96 04/28/18 00:00 65 04/28/18 00:00 121/38 04/28/18 00:00 98.4 65 18 77/17 (37) 96 04/28/18 00:00 Nasal Cannula 4.0 04/27/18 23:30 67 16 121/38 (65) 96 04/27/18 23:00 66 18 98/40 (59) 96 04/27/18 22:30 68 16 116/40 (65) 96 04/27/18 22:15 64 15 110/50 (70) 95 04/27/18 22:00 64 14 116/40 (65) 97 04/27/18 22:00 96/46 04/27/18 21:45 63 13 96/46 (63) 99 04/27/18 21:30 78 16 91/41 (58) 97 04/27/18 21:15 78 16 97/41 (59) 97 04/27/18 21:00 101/33 04/27/18 21:00 78 16 101/33 (55) 97 04/27/18 20:30 66 19 98/45 (62) 96 04/27/18 20:07 Nasal Cannula 3.0 04/27/18 20:07 97 Nasal Cannula 3.0 04/27/18 20:00 Nasal Cannula 4.0 04/27/18 20:00 68 04/27/18 20:00 98.4 63 19 95/33 (53) 96 04/27/18 19:30 63 19 93/33 (53) 96 04/27/18 19:00 95/45 04/27/18 19:00 63 19 95/45 (62) 96 04/27/18 18:30 61 13 109/39 (62) 96 04/27/18 18:24 65/34 04/27/18 18:00 66 14 110/49 (69) 96 04/27/18 17:00 62 20 52/35 (41) 96 04/27/18 16:30 62 17 82/38 (53) 96 04/27/18 16:00 63 04/27/18 16:00 98.6 62 15 94/41 (58) 93 04/27/18 16:00 Nasal Cannula 4.0 04/27/18 15:30 69 15 94/53 (67) 94 04/27/18 15:00 67 13 95/50 (65) 93 04/27/18 14:30 69 16 84/53 (63) 95 04/27/18 14:00 71 13 79/48 (58) 95 04/27/18 13:30 89 22 106/57 (73) 91 04/27/18 13:00 91 21 110/67 (81) 92 04/27/18 12:00 73 04/27/18 12:00 Nasal Cannula 4.0 04/27/18 12:00 98.8 89 20 99/52 (68) 75 04/27/18 11:00 75 19 106/49 (68) 93 04/27/18 10:30 72 14 90/50 (63) 96 Status: awake Condition: critical HEENT: atraumatic Neck: full ROM Heart: HR/BP unstable Abdomen: soft Extremities: no C/C/E, edema Critical Care - Subjective ROS Limited/Unobtainable: No Interval Events: still needs dopamine, getting dialyzed Condition: critical FI02: 36 Sputum Amount: None Drips: dopamin I&O: Intake and Output 04/27/18 04/28/18 19:00 07:00 Intake Total 680.831 ml 397.913 ml Output Total 0 ml 300 ml Balance 680.831 ml 97.913 ml Intake Oral 210 ml IV Total 470.831 ml 397.913 ml Output Urine Total 0 ml 0 ml Emesis 300 ml # Bowel Movements 1 CXR: no change Labs: Laboratory Tests Test 04/28/18 05:25 White Blood Count 5.0 K/UL (4.8-10.8) Red Blood Count 2.86 M/UL (4.20-5.40) L Hemoglobin 8.6 G/DL (12.0-16.0) L Hematocrit 26.4 % (37.0-47.0) L Mean Corpuscular Volume 92 FL (80-99) Mean Corpuscular Hemoglobin 30.0 PG (27.0-31.0) Mean Corpuscular Hemoglobin Concent 32.6 G/DL (32.0-36.0) Red Cell Distribution Width 14.7 % (11.6-14.8) Platelet Count 172 K/UL (150-450) Mean Platelet Volume 9.7 FL (6.5-10.1) Neutrophils (%) (Auto) 68.3 % (45.0-75.0) Lymphocytes (%) (Auto) 18.4 % (20.0-45.0) L Monocytes (%) (Auto) 10.8 % (1.0-10.0) H Eosinophils (%) (Auto) 2.0 % (0.0-3.0) Basophils (%) (Auto) 0.5 % (0.0-2.0) Sodium Level 128 MMOL/L (136-145) L Potassium Level 4.5 MMOL/L (3.5-5.1) Chloride Level 90 MMOL/L (98-107) L Carbon Dioxide Level 24 MMOL/L (21-32) Anion Gap 14 mmol/L (5-15) Blood Urea Nitrogen 41 mg/dL (7-18) H Creatinine 9.1 MG/DL (0.55-1.30) H Estimat Glomerular Filtration Rate 5.5 mL/min (>60) Glucose Level 89 MG/DL (74-106) Calcium Level 9.7 MG/DL (8.5-10.1) Phosphorus Level 5.1 MG/DL (2.5-4.9) H Magnesium Level 1.9 MG/DL (1.8-2.4) Total Bilirubin 1.7 MG/DL (0.2-1.0) H Direct Bilirubin 1.2 MG/DL (0.0-0.3) H Aspartate Amino Transf (AST/SGOT) 66 U/L (15-37) H Alanine Aminotransferase (ALT/SGPT) 21 U/L (12-78) Alkaline Phosphatase 580 U/L (46-116) H Pro-B-Type Natriuretic Peptide 3925 pg/mL (0-125) H Total Protein 7.6 G/DL (6.4-8.2) Albumin 2.7 G/DL (3.4-5.0) L Globulin 4.9 g/dL Albumin/Globulin Ratio 0.6 (1.0-2.7) L Cortisol AM Sample Pending Cuate Schmidt MD Apr 28, 2018 10:17
--- NOTE | 2018-04-28 10:46 | NUR ---
NURSE NOTES: MD ROSE HERE TO SEE PT. WAS UPDATED ON VOMITING EPISODES X2 WITH FOOD EATEN FROM WEDNESDAY AND RED STREAKS. PT C/O OF ABDOMINAL DISCOMFORT. RECEIVED ORDER TO INPUT NPO EXCEPT MEDS.
--- NOTE | 2018-04-28 10:49 | NUR ---
NURSE NOTES: MD HESS HERE TO SEE PT. WAS UPDATED ON DOPAMINE @12MCG/KG/MIN FOR H.D TREATMENT. NO NEW ORDERS AT THIS TIME.
--- NOTE | 2018-04-28 12:15 | NUR ---
NURSE NOTES: H.D COMPLETE ABLE TO REMOVE 350ML, DOPAMINE AT 14MCG/KG/MIN, BP 108/53 HR 107. PT RESTING IN BED
--- NOTE | 2018-04-28 12:39 | GI Progress Note ---
Assessment/Plan Problems: (1) Epigastric abdominal pain ICD Codes: R10.13 - Epigastric pain SNOMED: 63652477 (2) Anxiety ICD Codes: F41.9 - Anxiety disorder, unspecified SNOMED: 38644521 (3) Constipation ICD Codes: K59.00 - Constipation, unspecified SNOMED: 64369271 (4) Anemia of renal disease ICD Codes: D63.1 - Anemia in chronic kidney disease SNOMED: 148102612, 497445190 Status: stable Status Narrative Discussed with Dr. Diaz. Assessment/Plan Unknown history of abdominal surgery KUB noted mainly unremarkable cdiff, stool studies both negative OB stool negative on renal diet protonix daily fu labs bowel regimen pain mgmt PT evaluation The patient was seen and examined at bedside and all new and available data was reviewed in the patients chart. I agree with the above findings, impression and plan. (Patient seen earlier today. Signature stamp does not reflect patient encounter time.). - Ryley Diaz MD Subjective Subjective denies abdominal pain Still has complaint of constipation Objective Last 24 Hour Vital Signs Date Time Temp Pulse Resp B/P (MAP) Pulse Ox O2 Delivery O2 Flow Rate FiO2 04/28/18 11:47 Room Air 04/28/18 11:44 Room Air 04/28/18 10:30 91 21 97/49 (65) 99 04/28/18 10:00 81 19 94/44 (61) 98 04/28/18 09:30 90 15 86/59 (68) 84 04/28/18 09:00 95 14 140/72 (94) 97 04/28/18 08:30 75 14 113/52 (72) 94 04/28/18 08:00 77 19 111/51 (71) 99 04/28/18 08:00 Nasal Cannula 4.0 04/28/18 08:00 78 04/28/18 07:30 98.6 98 21 113/74 (87) 99 04/28/18 07:02 73 18 105/54 (71) 94 04/28/18 06:00 73 18 115/56 (75) 94 04/28/18 05:30 76 18 115/54 (74) 94 04/28/18 05:00 70 17 97/55 (69) 96 04/28/18 05:00 97/55 04/28/18 04:30 68 17 111/66 (81) 96 04/28/18 04:00 Nasal Cannula 4.0 04/28/18 04:00 111/48 04/28/18 04:00 98.4 72 17 102/48 (66) 96 04/28/18 04:00 72 04/28/18 03:30 68 17 110/48 (68) 96 04/28/18 03:00 68 17 102/48 (66) 96 04/28/18 03:00 102/56 04/28/18 02:30 68 17 78/48 (58) 96 04/28/18 02:00 70 17 97/37 (57) 96 04/28/18 02:00 70/37 04/28/18 01:39 81/59 04/28/18 01:30 68 17 94/50 (65) 94 04/28/18 01:00 94/50 04/28/18 01:00 68 17 91/48 (62) 96 04/28/18 00:30 66 18 85/32 (49) 96 04/28/18 00:00 65 04/28/18 00:00 121/38 04/28/18 00:00 98.4 65 18 77/17 (37) 96 04/28/18 00:00 Nasal Cannula 4.0 04/27/18 23:30 67 16 121/38 (65) 96 04/27/18 23:00 66 18 98/40 (59) 96 04/27/18 22:30 68 16 116/40 (65) 96 04/27/18 22:15 64 15 110/50 (70) 95 04/27/18 22:00 64 14 116/40 (65) 97 04/27/18 22:00 96/46 04/27/18 21:45 63 13 96/46 (63) 99 04/27/18 21:30 78 16 91/41 (58) 97 04/27/18 21:15 78 16 97/41 (59) 97 04/27/18 21:00 101/33 04/27/18 21:00 78 16 101/33 (55) 97 04/27/18 20:30 66 19 98/45 (62) 96 04/27/18 20:07 Nasal Cannula 3.0 04/27/18 20:07 97 Nasal Cannula 3.0 04/27/18 20:00 Nasal Cannula 4.0 04/27/18 20:00 68 04/27/18 20:00 98.4 63 19 95/33 (53) 96 04/27/18 19:30 63 19 93/33 (53) 96 04/27/18 19:00 95/45 04/27/18 19:00 63 19 95/45 (62) 96 04/27/18 18:30 61 13 109/39 (62) 96 04/27/18 18:24 65/34 04/27/18 18:00 66 14 110/49 (69) 96 04/27/18 17:00 62 20 52/35 (41) 96 04/27/18 16:30 62 17 82/38 (53) 96 04/27/18 16:00 63 04/27/18 16:00 98.6 62 15 94/41 (58) 93 04/27/18 16:00 Nasal Cannula 4.0 04/27/18 15:30 69 15 94/53 (67) 94 04/27/18 15:00 67 13 95/50 (65) 93 04/27/18 14:30 69 16 84/53 (63) 95 04/27/18 14:00 71 13 79/48 (58) 95 04/27/18 13:30 89 22 106/57 (73) 91 04/27/18 13:00 91 21 110/67 (81) 92 Intake and Output 04/27/18 04/28/18 19:00 07:00 Intake Total 680.831 ml 424.996 ml Output Total 0 ml 300 ml Balance 680.831 ml 124.996 ml Intake Oral 210 ml IV Total 470.831 ml 424.996 ml Output Urine Total 0 ml 0 ml Emesis 300 ml # Bowel Movements 1 Laboratory Tests Test 04/28/18 05:25 White Blood Count 5.0 K/UL (4.8-10.8) Red Blood Count 2.86 M/UL (4.20-5.40) L Hemoglobin 8.6 G/DL (12.0-16.0) L Hematocrit 26.4 % (37.0-47.0) L Mean Corpuscular Volume 92 FL (80-99) Mean Corpuscular Hemoglobin 30.0 PG (27.0-31.0) Mean Corpuscular Hemoglobin Concent 32.6 G/DL (32.0-36.0) Red Cell Distribution Width 14.7 % (11.6-14.8) Platelet Count 172 K/UL (150-450) Mean Platelet Volume 9.7 FL (6.5-10.1) Neutrophils (%) (Auto) 68.3 % (45.0-75.0) Lymphocytes (%) (Auto) 18.4 % (20.0-45.0) L Monocytes (%) (Auto) 10.8 % (1.0-10.0) H Eosinophils (%) (Auto) 2.0 % (0.0-3.0) Basophils (%) (Auto) 0.5 % (0.0-2.0) Sodium Level 128 MMOL/L (136-145) L Potassium Level 4.5 MMOL/L (3.5-5.1) Chloride Level 90 MMOL/L (98-107) L Carbon Dioxide Level 24 MMOL/L (21-32) Anion Gap 14 mmol/L (5-15) Blood Urea Nitrogen 41 mg/dL (7-18) H Creatinine 9.1 MG/DL (0.55-1.30) H Estimat Glomerular Filtration Rate 5.5 mL/min (>60) Glucose Level 89 MG/DL (74-106) Calcium Level 9.7 MG/DL (8.5-10.1) Phosphorus Level 5.1 MG/DL (2.5-4.9) H Magnesium Level 1.9 MG/DL (1.8-2.4) Total Bilirubin 1.7 MG/DL (0.2-1.0) H Direct Bilirubin 1.2 MG/DL (0.0-0.3) H Aspartate Amino Transf (AST/SGOT) 66 U/L (15-37) H Alanine Aminotransferase (ALT/SGPT) 21 U/L (12-78) Alkaline Phosphatase 580 U/L (46-116) H Pro-B-Type Natriuretic Peptide 3925 pg/mL (0-125) H Total Protein 7.6 G/DL (6.4-8.2) Albumin 2.7 G/DL (3.4-5.0) L Globulin 4.9 g/dL Albumin/Globulin Ratio 0.6 (1.0-2.7) L Cortisol AM Sample Pending Height (Feet): 5 Height (Inches): 6.00 Weight (Pounds): 203 General Appearance: WD/WN, no apparent distress, alert Cardiovascular: normal rate Respiratory/Chest: normal breath sounds, no respiratory distress Abdominal Exam: normal bowel sounds, non tender, soft Extremities: normal range of motion, non-tender Wm Faustin NP Apr 28, 2018 12:39
--- NOTE | 2018-04-28 16:03 | NUR ---
NURSE NOTES: Cleaned up pt and room.pt states comfortable right, want to rest some. VSS.
--- NOTE | 2018-04-28 17:04 | NUR ---
NURSE NOTES: PT WILLING TO TAKE ONE OF THE THREE RENVELA TABS, WILL RETURN THE OTHER TWO. PT RESTING IN BED. TV ON . NO C/O PAIN.
--- NOTE | 2018-04-28 17:39 | Infectious Diseases Prog Note ---
Assessment/Plan Assessment/Plan ASSESSMENT: 1. sepsis, shock, pneumonia, CT chest noted, pressors, bradycardia, sputum culture with mold, ? aspergillus pna, ? other source for shock, abdominal pain, n/v hx - meropenem and doxycycline - finish 14 day course abx - continue voriconazole - day # 10, d/w microbiology and ID of mold pending ( send out) - still requiring pressors - ? other shock source, ? adrenal insufficiency, blood cultures negative - hearing better off vancomycin - monitor labs and chest x-ray - icu care, remains on pressors, no vent - monitor chest x-ray - d/w RN - d/w pharmacy about abx 2. End-stage renal disease, hemodialysis, has a right femoral line hemodialysis line and also left arm graft. 3. History of fistula in the past. 4. History of PermCath in the past 5. Anemia of chronic disease. 6. Hypertension - Blood pressure treatment per primary. 7. No history of diabetes mentioned. 8. Chronic kidney disease. 9. Obesity. 10. History of cholecystectomy. 11. History of parathyroidectomy. 12. History of carpal tunnel syndrome. 13. History of fractures, ORIF. 14. Past medical history noted. 15. Multiple drug allergies including cefazolin, Cipro, contrast media, gentamicin, ketamine, Levaquin and penicillin, she seems to tolerate carbapenems. 16. Social history is negative . 17. Family history is noncontributory. 18. MAR was noted. 19. Case discussed with RN. 20. Continue treatment per primary consultants. 21. Notes were noted and orders were entered. Subjective Constitutional: Reports: fatigue; Denies: fever HEENT: Denies: congestion Respiratory: Denies: shortness of breath Cardiovascular: Denies: chest pain Gastrointestinal/Abdominal: Denies: nausea, vomiting, diarrhea Genitourinary: Reports: other - no mckinney Neurologic: Denies: headache Psychiatric: Denies: depression Skin: Denies: rash Hematologic: Denies: bleeding Musculoskeletal: Denies: pain Allergies: Coded Allergies: CEFAZOLIN (Verified Allergy, Unknown, 10/02/10) CIPROFLOXACIN (Verified Allergy, Unknown, 10/02/10) GENTAMICIN (Verified Allergy, Unknown, 10/02/10) KETAMINE (Verified Allergy, Unknown, 03/29/18) LEVOFLOXACIN (Verified Allergy, Unknown, 10/02/10) PENICILLINS (Verified Allergy, Unknown, ITCH, 10/02/10) Uncoded Allergies: CONTRAST MEDIA (Adverse Reaction, Mild, MILD ITCHING AFTER CONTRAST MEDIA, 04/30/17) Objective Vital Signs Last 24 Hour Vital Signs Date Time Temp Pulse Resp B/P (MAP) Pulse Ox O2 Delivery O2 Flow Rate FiO2 04/28/18 16:00 Room Air 04/28/18 16:00 98.8 86 18 100/36 (57) 99 04/28/18 16:00 86 04/28/18 16:00 84/38 04/28/18 15:30 89 17 79/39 (52) 04/28/18 15:00 104 26 101/69 (80) 04/28/18 15:00 81/40 04/28/18 14:30 88 17 87/41 (56) 98 04/28/18 14:00 85/40 04/28/18 14:00 94 19 83/41 (55) 04/28/18 13:30 94 8 92/46 (61) 04/28/18 13:15 99 16 97/49 (65) 04/28/18 13:00 97/49 04/28/18 13:00 100 16 99/48 (65) 04/28/18 12:57 114/51 04/28/18 12:30 103 18 111/52 (71) 100 04/28/18 12:00 97.8 93 18 106/50 (68) 04/28/18 12:00 Room Air 04/28/18 12:00 93 04/28/18 11:47 Room Air 04/28/18 11:44 Room Air 04/28/18 11:30 88 16 104/57 (73) 100 04/28/18 11:00 87/49 04/28/18 11:00 89 17 97/51 (66) 99 04/28/18 10:30 91 21 97/49 (65) 99 04/28/18 10:00 81 19 94/44 (61) 98 04/28/18 10:00 98/46 04/28/18 09:30 90 15 86/59 (68) 84 04/28/18 09:00 95 14 140/72 (94) 97 04/28/18 09:00 121/56 04/28/18 08:30 75 14 113/52 (72) 94 04/28/18 08:00 77 19 111/51 (71) 99 04/28/18 08:00 110/54 04/28/18 08:00 Nasal Cannula 4.0 04/28/18 08:00 78 04/28/18 07:30 98.6 98 21 113/74 (87) 99 04/28/18 07:02 73 18 105/54 (71) 94 04/28/18 07:00 91/75 04/28/18 06:00 73 18 115/56 (75) 94 04/28/18 05:30 76 18 115/54 (74) 94 04/28/18 05:00 70 17 97/55 (69) 96 04/28/18 05:00 97/55 04/28/18 04:30 68 17 111/66 (81) 96 04/28/18 04:00 Nasal Cannula 4.0 04/28/18 04:00 111/48 04/28/18 04:00 98.4 72 17 102/48 (66) 96 04/28/18 04:00 72 04/28/18 03:30 68 17 110/48 (68) 96 04/28/18 03:00 68 17 102/48 (66) 96 04/28/18 03:00 102/56 04/28/18 02:30 68 17 78/48 (58) 96 04/28/18 02:00 70 17 97/37 (57) 96 04/28/18 02:00 70/37 04/28/18 01:39 81/59 04/28/18 01:30 68 17 94/50 (65) 94 04/28/18 01:00 94/50 04/28/18 01:00 68 17 91/48 (62) 96 04/28/18 00:30 66 18 85/32 (49) 96 04/28/18 00:00 65 04/28/18 00:00 121/38 04/28/18 00:00 98.4 65 18 77/17 (37) 96 04/28/18 00:00 Nasal Cannula 4.0 04/27/18 23:30 67 16 121/38 (65) 96 04/27/18 23:00 66 18 98/40 (59) 96 04/27/18 22:30 68 16 116/40 (65) 96 04/27/18 22:15 64 15 110/50 (70) 95 04/27/18 22:00 64 14 116/40 (65) 97 04/27/18 22:00 96/46 04/27/18 21:45 63 13 96/46 (63) 99 04/27/18 21:30 78 16 91/41 (58) 97 04/27/18 21:15 78 16 97/41 (59) 97 04/27/18 21:00 101/33 04/27/18 21:00 78 16 101/33 (55) 97 04/27/18 20:30 66 19 98/45 (62) 96 04/27/18 20:07 Nasal Cannula 3.0 04/27/18 20:07 97 Nasal Cannula 3.0 04/27/18 20:00 Nasal Cannula 4.0 04/27/18 20:00 68 04/27/18 20:00 98.4 63 19 95/33 (53) 96 04/27/18 19:30 63 19 93/33 (53) 96 04/27/18 19:00 95/45 04/27/18 19:00 63 19 95/45 (62) 96 04/27/18 18:30 61 13 109/39 (62) 96 04/27/18 18:24 65/34 04/27/18 18:00 66 14 110/49 (69) 96 Height (Feet): 5 Height (Inches): 6.00 Weight (Pounds): 203 General Appearance: no acute distress HEENT: normocephalic, atraumatic, anicteric, mucous membranes moist Respiratory/Chest: crackles/rales, rhonchi - bilaterally Cardiovascular: normal rate, regular rhythm, no gallop/murmur, no JVD Abdomen: normal bowel sounds, soft, non tender, no organomegaly, non distended Genitourinary: other - no mckinney Extremities: no cyanosis Skin: no rash 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 Follow-up after appropriate treatment recommended to ensure resolution. * Patchy opacities in the right upper lobe are also likely infectious in etiology. These obscure the previously described lung nodule. Attention to this area on follow-up recommended. * Prominent hilar and mediastinal lymph nodes, possibly reactive in etiology. * Small bilateral pleural effusions. * Large hiatal hernia * Dialysis catheter tip in the right atrium. Evidence of central venous occlusion with multiple collateral veins noted in the mediastinum. * Nonspecific calcifications in the bilateral breasts are correlation with most recent mammogram recommended. If none performed recently, then recommend follow- up screening mammogram. * Findings suggestive of renal osteodystrophy Chest x-ray - 04/14 - Findings: Heart size and mediastinal contours stable. Femoral approach dialysis catheter is again noted. Multiple surgical clips noted in the bilateral axilla. Portions of a stents again visualized in the right axilla. Multiple surgical clips noted in the right arm. Machine Lacer opacities in the left midlung peripherally. No evidence of pneumothorax. There is patchy opacity at the right base. Osseous structures stable. Calcifications in the right breast noted. Impression: Left-sided airspace opacities most concerning for pneumonia. There is slight interval increased density compared to prior exam which may be technical. 04/16/18 - chest x-ray - IMPRESSION: 1. Bilateral airspace opacities, most confluent in the left midlung field. Could be from consolidation/pneumonia. There is a broad differential. Follow to ensure resolution and exclude other mimics. 2. Suspect bilateral pleural effusions. 3. Vascular congestion. 04/20/18: Comparison: 04/16/2018 A single view chest radiograph was obtained. Findings: Interstitial edema again suspected mild in degree, slightly improved from the prior study. Heart size is stable. Large bore catheter projected over the right atrium entering from the IVC. Pleural-based density lateral aspect of the left lung again noted. Extensive surgical clips in the thoracic inlet and left axillary region noted. IMPRESSION: Some improvement in the initial edema. Other findings stable Chest x-ray - 04/23/18 - COMPARISON: Chest x-ray dated 04/19/18 FINDINGS: Single frontal view demonstrates a normal cardiomediastinal silhouette. Surgical clips in the neck base. Status post left axillary dissection. Central venous catheter terminating in the right atrium, may be extending from a femoral approach, grossly unchanged. Stable patchy opacity in the left mid lung zone. Increasing patchy opacity in bilateral lower lung zones, right greater the left. The visualized osseous structures are within normal limits. IMPRESSION: 1. Stable patchy opacity in the left mid lung zone. Increasing patchy opacity in bilateral lower lung zones, right greater the left. 2. Stable lines and postoperative findings as outlined above. Chest x-ray - 04/26/18 - Interstitial edema has improved significantly since over the last few days. There is a mass versus infiltrate in the left midlung that persists. There is extensive surgical clips both axilla. Vascular stent right upper arm noted. Heart size is normal. IMPRESSION: Interval improvement in CHF. Mass versus infiltrate in the left midlung Chest x-ray - 04/27/18 - Comparison: 04/26/2018 Findings: Again demonstrated is lateral pleural thickening and a peripheral polygonal dense parenchymal opacity, the latter appearing slightly larger than on the previous study. There is some hazy opacity in the right upper lung which is new since the prior study. Mild generalized interstitial prominence is again demonstrated. Right arm stent, bilateral axillary surgical clips are again noted. Femoral approach dialysis catheter is again noted, tip in the high right atrium. Impression: Increased size of left lateral pulmonary parenchymal opacity. This reflects dense consolidation demonstrated on prior radiographs and CT scan, perhaps slightly worse than on the previous study. Persistent lateral pleural thickening versus fluid. Possible hazy infiltrate in the right upper lobe Other stable findings as described Microbiology Date/Time Source Procedure Growth Status 04/24/18 15:15 Blood Blood Culture - Preliminary NO GROWTH AFTER 72 HOURS Resulted 04/21/18 04:00 Sputum Expectorated Gram Stain - Final Complete 04/21/18 04:00 Sputum Expectorated Sputum Culture - Final NORMAL UPPER RESPIRATORY ESTEPHANIE AT 48 ... Complete 04/19/18 02:00 Stool Stool Culture - Final NO SALMONELLA,SHIGELLA OR CAMPYLOBACT... Complete 04/12/18 12:10 Rectum - Final NO CARBAPENEM-RESISTANT ENTEROBACTERI... Complete Laboratory Tests Test 04/28/18 05:25 White Blood Count 5.0 K/UL (4.8-10.8) Red Blood Count 2.86 M/UL (4.20-5.40) L Hemoglobin 8.6 G/DL (12.0-16.0) L Hematocrit 26.4 % (37.0-47.0) L Mean Corpuscular Volume 92 FL (80-99) Mean Corpuscular Hemoglobin 30.0 PG (27.0-31.0) Mean Corpuscular Hemoglobin Concent 32.6 G/DL (32.0-36.0) Red Cell Distribution Width 14.7 % (11.6-14.8) Platelet Count 172 K/UL (150-450) Mean Platelet Volume 9.7 FL (6.5-10.1) Neutrophils (%) (Auto) 68.3 % (45.0-75.0) Lymphocytes (%) (Auto) 18.4 % (20.0-45.0) L Monocytes (%) (Auto) 10.8 % (1.0-10.0) H Eosinophils (%) (Auto) 2.0 % (0.0-3.0) Basophils (%) (Auto) 0.5 % (0.0-2.0) Sodium Level 128 MMOL/L (136-145) L Potassium Level 4.5 MMOL/L (3.5-5.1) Chloride Level 90 MMOL/L (98-107) L Carbon Dioxide Level 24 MMOL/L (21-32) Anion Gap 14 mmol/L (5-15) Blood Urea Nitrogen 41 mg/dL (7-18) H Creatinine 9.1 MG/DL (0.55-1.30) H Estimat Glomerular Filtration Rate 5.5 mL/min (>60) Glucose Level 89 MG/DL (74-106) Calcium Level 9.7 MG/DL (8.5-10.1) Phosphorus Level 5.1 MG/DL (2.5-4.9) H Magnesium Level 1.9 MG/DL (1.8-2.4) Total Bilirubin 1.7 MG/DL (0.2-1.0) H Direct Bilirubin 1.2 MG/DL (0.0-0.3) H Aspartate Amino Transf (AST/SGOT) 66 U/L (15-37) H Alanine Aminotransferase (ALT/SGPT) 21 U/L (12-78) Alkaline Phosphatase 580 U/L (46-116) H Pro-B-Type Natriuretic Peptide 3925 pg/mL (0-125) H Total Protein 7.6 G/DL (6.4-8.2) Albumin 2.7 G/DL (3.4-5.0) L Globulin 4.9 g/dL Albumin/Globulin Ratio 0.6 (1.0-2.7) L Cortisol AM Sample Pending Current Medications Medications (Trade) Dose Ordered Sig/Marcos Route PRN Reason Start Time Stop Time Status Last Admin Dose Admin Acetaminophen (Tylenol) 650 mg Q6H PRN ORAL Mild Pain/Temp > 100.5 04/12/18 17:45 05/12/18 17:44 04/26/18 05:00 Aspirin (ASA) 81 mg DAILY ORAL 04/17/18 09:00 05/17/18 08:59 04/27/18 09:08 Bisacodyl (Dulcolax) 5 mg BID ORAL 04/21/18 19:00 05/21/18 18:59 04/28/18 17:02 Chlorhexidine Gluconate (Nivia-Hex 2%) 1 applic DAILY@2000 TOPIC 04/13/18 20:00 05/13/18 19:59 04/27/18 20:05 Citalopram Hydrobromide (celeXA) 20 mg DAILY ORAL 04/25/18 12:00 05/25/18 11:59 04/27/18 09:09 Dopamine HCl/ Dextrose 250 ml @ 0 mls/hr Q24H IV 04/18/18 02:00 05/18/18 01:59 04/28/18 12:57 Guaifenesin (Robitussin) 300 mg Q6H PRN ORAL For Cough 04/14/18 17:00 05/14/18 16:59 04/16/18 02:07 Heparin Sodium (Porcine) (Heparin 5000 units/ml) 5,000 units EVERY 12 HOURS SUBQ 04/12/18 21:00 05/12/18 20:59 04/27/18 20:56 Hydromorphone HCl (Dilaudid) 1 mg Q4H PRN IVP For Pain 04/25/18 11:45 05/02/18 11:44 04/28/18 02:57 Loperamide HCl (Imodium) 2 mg Q4H PRN ORAL Diarrhea 04/25/18 18:15 05/25/18 18:14 04/25/18 18:16 Lorazepam (Ativan) 2 mg Q6H PRN ORAL For Anxiety 04/25/18 11:15 05/02/18 11:14 Metoclopramide HCl (Reglan) 5 mg BEFORE MEALS ORAL 04/28/18 11:30 05/28/18 11:29 04/28/18 17:01 Metoclopramide HCl (Reglan) 10 mg Q8H PRN IVP Nausea & Vomiting 04/28/18 09:45 05/28/18 09:44 Midodrine (Pro-Amatine) 10 mg Q8HR ORAL 04/19/18 14:00 05/19/18 13:59 04/28/18 13:06 Mirtazapine (Remeron) 7.5 mg BEDTIME ORAL 04/25/18 21:00 05/25/18 20:59 04/27/18 20:54 Pantoprazole (Protonix) 40 mg BID ORAL 04/25/18 18:00 05/12/18 17:59 04/28/18 17:01 Polyethylene Glycol (Miralax) 17 gm BEDTIME ORAL 04/21/18 21:00 05/21/18 20:59 04/26/18 21:21 Sevelamer Carbonate (Renvela) 2,400 mg THREE TIMES A DAY ORAL 04/23/18 13:00 05/13/18 08:59 04/28/18 17:01 Voriconazole (Vfend) 200 mg EVERY 12 HOURS ORAL 04/24/18 21:00 05/01/18 20:59 04/27/18 20:54 Edgardo Mcbride MD Apr 28, 2018 17:39
--- NOTE | 2018-04-28 17:57 | NUR ---
NURSE NOTES: MD LONDON HERE TO SEE PT. WILL INPUT OWN ORDERS. UPDATED ON LABS AND DOPAMINE AT 8MCG/KG/MIN
--- NOTE | 2018-04-28 18:21 | Internal Med Progress Note ---
Subjective Date of Service: Apr 28, 2018 Physician Name Edward Harrell Attending Physician Ash Henley MD Current Medications Medications (Trade) Dose Ordered Sig/Marcos Route PRN Reason Start Time Stop Time Status Last Admin Dose Admin Acetaminophen (Tylenol) 650 mg Q6H PRN ORAL Mild Pain/Temp > 100.5 04/12/18 17:45 05/12/18 17:44 04/26/18 05:00 Aspirin (ASA) 81 mg DAILY ORAL 04/17/18 09:00 05/17/18 08:59 04/27/18 09:08 Bisacodyl (Dulcolax) 5 mg BID ORAL 04/21/18 19:00 05/21/18 18:59 04/28/18 17:02 Chlorhexidine Gluconate (Nivia-Hex 2%) 1 applic DAILY@2000 TOPIC 04/13/18 20:00 05/13/18 19:59 04/27/18 20:05 Citalopram Hydrobromide (celeXA) 20 mg DAILY ORAL 04/25/18 12:00 05/25/18 11:59 04/27/18 09:09 Dopamine HCl/ Dextrose 250 ml @ 0 mls/hr Q24H IV 04/18/18 02:00 05/18/18 01:59 04/28/18 12:57 Guaifenesin (Robitussin) 300 mg Q6H PRN ORAL For Cough 04/14/18 17:00 05/14/18 16:59 04/16/18 02:07 Heparin Sodium (Porcine) (Heparin 5000 units/ml) 5,000 units EVERY 12 HOURS SUBQ 04/12/18 21:00 05/12/18 20:59 04/27/18 20:56 Hydromorphone HCl (Dilaudid) 1 mg Q4H PRN IVP For Pain 04/25/18 11:45 05/02/18 11:44 04/28/18 02:57 Loperamide HCl (Imodium) 2 mg Q4H PRN ORAL Diarrhea 04/25/18 18:15 05/25/18 18:14 04/25/18 18:16 Lorazepam (Ativan) 2 mg Q6H PRN ORAL For Anxiety 04/25/18 11:15 05/02/18 11:14 Metoclopramide HCl (Reglan) 5 mg BEFORE MEALS ORAL 04/28/18 11:30 05/28/18 11:29 04/28/18 17:01 Metoclopramide HCl (Reglan) 10 mg Q8H PRN IVP Nausea & Vomiting 04/28/18 09:45 05/28/18 09:44 Midodrine (Pro-Amatine) 10 mg Q8HR ORAL 04/19/18 14:00 05/19/18 13:59 04/28/18 13:06 Mirtazapine (Remeron) 7.5 mg BEDTIME ORAL 04/25/18 21:00 05/25/18 20:59 04/27/18 20:54 Pantoprazole (Protonix) 40 mg BID ORAL 04/25/18 18:00 05/12/18 17:59 04/28/18 17:01 Polyethylene Glycol (Miralax) 17 gm BEDTIME ORAL 04/21/18 21:00 05/21/18 20:59 04/26/18 21:21 Sevelamer Carbonate (Renvela) 2,400 mg THREE TIMES A DAY ORAL 04/23/18 13:00 05/13/18 08:59 04/28/18 17:01 Allergies: Coded Allergies: CEFAZOLIN (Verified Allergy, Unknown, 10/02/10) CIPROFLOXACIN (Verified Allergy, Unknown, 10/02/10) GENTAMICIN (Verified Allergy, Unknown, 10/02/10) KETAMINE (Verified Allergy, Unknown, 03/29/18) LEVOFLOXACIN (Verified Allergy, Unknown, 10/02/10) PENICILLINS (Verified Allergy, Unknown, ITCH, 10/02/10) Uncoded Allergies: CONTRAST MEDIA (Adverse Reaction, Mild, MILD ITCHING AFTER CONTRAST MEDIA, 04/30/17) ROS Limited/Unobtainable: No Constitutional: Reports: no symptoms HEENT: Reports: no symptoms Cardiovascular: Reports: no symptoms Respiratory: Reports: no symptoms Gastrointestinal/Abdominal: Reports: no symptoms Genitourinary: Reports: no symptoms Neurologic/Psychiatric: Reports: no symptoms Subjective 53 YO F admitted with shortness of breath. Now pneumonia. Cover for Int John- Dr Henley. ICU. Continues on dopamine. Objective Last Vital Signs Date Time Temp Pulse Resp B/P (MAP) Pulse Ox O2 Delivery O2 Flow Rate FiO2 04/28/18 18:00 90/42 04/28/18 18:00 85 16 100 04/28/18 16:00 Room Air 04/28/18 16:00 98.8 04/28/18 08:00 4.0 04/27/18 06:35 36 Laboratory Tests Test 04/28/18 05:25 White Blood Count 5.0 K/UL (4.8-10.8) Red Blood Count 2.86 M/UL (4.20-5.40) L Hemoglobin 8.6 G/DL (12.0-16.0) L Hematocrit 26.4 % (37.0-47.0) L Mean Corpuscular Volume 92 FL (80-99) Mean Corpuscular Hemoglobin 30.0 PG (27.0-31.0) Mean Corpuscular Hemoglobin Concent 32.6 G/DL (32.0-36.0) Red Cell Distribution Width 14.7 % (11.6-14.8) Platelet Count 172 K/UL (150-450) Mean Platelet Volume 9.7 FL (6.5-10.1) Neutrophils (%) (Auto) 68.3 % (45.0-75.0) Lymphocytes (%) (Auto) 18.4 % (20.0-45.0) L Monocytes (%) (Auto) 10.8 % (1.0-10.0) H Eosinophils (%) (Auto) 2.0 % (0.0-3.0) Basophils (%) (Auto) 0.5 % (0.0-2.0) Sodium Level 128 MMOL/L (136-145) L Potassium Level 4.5 MMOL/L (3.5-5.1) Chloride Level 90 MMOL/L (98-107) L Carbon Dioxide Level 24 MMOL/L (21-32) Anion Gap 14 mmol/L (5-15) Blood Urea Nitrogen 41 mg/dL (7-18) H Creatinine 9.1 MG/DL (0.55-1.30) H Estimat Glomerular Filtration Rate 5.5 mL/min (>60) Glucose Level 89 MG/DL (74-106) Calcium Level 9.7 MG/DL (8.5-10.1) Phosphorus Level 5.1 MG/DL (2.5-4.9) H Magnesium Level 1.9 MG/DL (1.8-2.4) Total Bilirubin 1.7 MG/DL (0.2-1.0) H Direct Bilirubin 1.2 MG/DL (0.0-0.3) H Aspartate Amino Transf (AST/SGOT) 66 U/L (15-37) H Alanine Aminotransferase (ALT/SGPT) 21 U/L (12-78) Alkaline Phosphatase 580 U/L (46-116) H Pro-B-Type Natriuretic Peptide 3925 pg/mL (0-125) H Total Protein 7.6 G/DL (6.4-8.2) Albumin 2.7 G/DL (3.4-5.0) L Globulin 4.9 g/dL Albumin/Globulin Ratio 0.6 (1.0-2.7) L Cortisol AM Sample 18.5 UG/DL Intake and Output 04/27/18 04/28/18 19:00 07:00 Intake Total 680.831 ml 424.996 ml Output Total 0 ml 300 ml Balance 680.831 ml 124.996 ml Intake Oral 210 ml IV Total 470.831 ml 424.996 ml Output Urine Total 0 ml 0 ml Emesis 300 ml # Bowel Movements 1 Objective Objective GENERAL: Awake, responsive, alert HEAD AND NECK: Pupils equal and reactive to light. Extraocular movements intact. Neck was supple. No JVD. LUNGS: Fair air entry. Poor respiratory effort. No wheeze or rhonchi. Decreased air in the bases. HEART: S1 and S2. Distant heart sounds. No murmur. ABDOMEN: Soft, nondistended, and nontender. Morbidly obese. EXTREMITIES: No cyanosis, clubbing, or edema. Right femoral area PermCath as well as left upper extremity AV fistula, functional. NEUROLOGIC: Cranial nerves II through XII are grossly intact. The patient is moving all the extremities spontaneously. Gait was not assessed due to the patient's status. PSYCHIATRIC: Mood and affect are intact. Assessment/Plan Assessment/Plan Assessment/Plan Assessment/Plan 1. Sepsis, most likely secondary to left upper lobe and, to a lesser extent, medial right lower lobe most likely representing multifocal pneumonia. 2. Hypotension, possible septic shock. 3. Pancytopenia with severe thrombocytopenia resolving. 4. End-stage renal disease, on hemodialysis. 5. Altered mental status, most likely toxic metabolic encephalopathy as a result of infection as well as uremia. 6. Anemia of chronic kidney disease. 7. Morbid obesity. 8. Bradycardia. 9. Diarrhea 10. Abdominal pain. PLAN: In ICU. follow up laboratory and cultures. Dr. Fredrick Conner from Nephrology consult; Hemodialysis 04/28/18. Dr. Mcbride from ID consult. Discussed with the family member, brother at the bedside. Abx:Meropenem, doxycycline and vfend per ID Code status is Full Code. DVT prophylaxis: heparin subcutaneous. continue Dopamine Drip CT of chest noted. Cortisol level Pending. C. Diff neg. Send stool for repeat Continue dopamine See GI consult; KUB=no obstruction advance diet Edward Harrell MD Apr 28, 2018 18:21
--- NOTE | 2018-04-28 18:28 | NUR ---
NURSE NOTES: CALLED MD ROSE REGARDING CORTISOL AM LEVEL 18.5. AWAITING CALL BACK. INFORMED C.N THAT PT WOULD LIKE TO SPEAK WITH ALL HER MD'S AT THE SAME TIME.
--- NOTE | 2018-04-28 18:30 | NUR ---
NURSE NOTES: PT C/O PAIN 6/10 IN ABDOMEN. DILAUDID ADMINISTERED PER ORDER. WILL CONTACT GI CONSULT.
--- NOTE | 2018-04-28 18:35 | NUR ---
NURSE NOTES: CALL MD PRIETO REGARDING PT VOMITING X2, ABDOMINAL PAIN. HE WILL CONTACT MD COPE AND CALL BACK.
--- NOTE | 2018-04-28 19:30 | NUR ---
NURSE NOTES: Received report from WILLI Conway. Patient in bed resting awake,alert able to verbalize needs known to staff. Denies any pain or discomfort. Skin warm and dry to touch. No SOB, oxygen saturation 95%. RT femoral Perma cath double lumen intact , running Dopamine @8mcg/kg/min. Instructed patient to use call light for assistance. Bed alarm on. Bed locked and in low position. with Bedside commode. Fall precautions in place. Will continue plan of care.
--- NOTE | 2018-04-28 19:32 | NUR ---
HAND-OFF: Report given to CHAYITO. PT IN NO ACUTE DISTRESS. ENDORSED F/U PT NEED TO TALK WITH MDS IN AM Addendum: 04/28/18 at 1935 by Zoraida Garcia RN REPORT GIVEN TO
[2018-04-28] MEDS: Dyna-Hex 2% Top Sol 2oz TOPIC SCH (20:41)
[2018-04-28] MEDS: Miralax 17gm pkt ORAL SCH (20:41)
--- NOTE | 2018-04-28 21:30 | NUR ---
NURSE NOTES: CHG bath given tolerated well. Patient watching TV. Denies any pain or discomfort.
--- NOTE | 2018-04-28 23:30 | NUR ---
NURSE NOTES: Patient in bed sleeping comfortably. NO SOB. Frequent visual checks continued. BP 94/34. Call light within easy reach.
--- NOTE | 2018-04-28 23:34 | General Progress Note ---
Assessment/Plan Problem List: (1) Anxiety ICD Codes: F41.9 - Anxiety disorder, unspecified SNOMED: 46722059 (2) Panic attack ICD Codes: F41.0 - Panic disorder [episodic paroxysmal anxiety] SNOMED: 540278980 Assessment/Plan cont current meds provided ro/st Subjective Neurologic/Psychiatric: Reports: anxiety, depressed, emotional problems Allergies: Coded Allergies: CEFAZOLIN (Verified Allergy, Unknown, 10/02/10) CIPROFLOXACIN (Verified Allergy, Unknown, 10/02/10) GENTAMICIN (Verified Allergy, Unknown, 10/02/10) KETAMINE (Verified Allergy, Unknown, 03/29/18) LEVOFLOXACIN (Verified Allergy, Unknown, 10/02/10) PENICILLINS (Verified Allergy, Unknown, ITCH, 10/02/10) Uncoded Allergies: CONTRAST MEDIA (Adverse Reaction, Mild, MILD ITCHING AFTER CONTRAST MEDIA, 04/30/17) Objective Last 24 Hour Vital Signs Date Time Temp Pulse Resp B/P (MAP) Pulse Ox O2 Delivery O2 Flow Rate FiO2 04/28/18 23:00 91/41 04/28/18 23:00 79 15 91/41 (58) 100 04/28/18 22:45 83 18 102/56 (71) 96 04/28/18 22:30 80 18 84/48 (60) 99 04/28/18 22:15 85 18 86/41 (56) 97 04/28/18 22:00 82 16 99/49 (66) 100 04/28/18 22:00 86/41 04/28/18 21:45 81 17 101/39 (59) 100 04/28/18 21:30 79 18 98/41 (60) 99 04/28/18 21:15 83 15 94/38 (56) 100 04/28/18 21:00 83 16 89/40 (56) 98 04/28/18 21:00 94/38 04/28/18 20:45 96 17 89/36 (53) 97 04/28/18 20:30 79 16 99/44 (62) 99 04/28/18 20:15 79 19 90/37 (54) 89 04/28/18 20:00 Room Air 04/28/18 20:00 98.0 79 15 79/39 (52) 98 04/28/18 20:00 79/39 04/28/18 20:00 78 04/28/18 19:30 80 20 98/39 (58) 92 04/28/18 19:00 77 18 95/39 (57) 96 04/28/18 19:00 87/47 04/28/18 18:30 78 16 94/36 (55) 100 04/28/18 18:22 89/41 04/28/18 18:00 90/42 04/28/18 18:00 85 16 90/33 (52) 100 04/28/18 17:30 81 19 97/48 (64) 91 04/28/18 17:00 90 18 90/32 (51) 99 04/28/18 16:30 85 19 87/35 (52) 04/28/18 16:00 Room Air 04/28/18 16:00 98.8 86 18 100/36 (57) 99 04/28/18 16:00 86 04/28/18 16:00 84/38 04/28/18 15:30 89 17 79/39 (52) 04/28/18 15:00 104 26 101/69 (80) 04/28/18 15:00 81/40 04/28/18 14:30 88 17 87/41 (56) 98 04/28/18 14:00 85/40 04/28/18 14:00 94 19 83/41 (55) 04/28/18 13:30 94 8 92/46 (61) 04/28/18 13:15 99 16 97/49 (65) 04/28/18 13:00 97/49 04/28/18 13:00 100 16 99/48 (65) 04/28/18 12:57 114/51 04/28/18 12:30 103 18 111/52 (71) 100 04/28/18 12:00 97.8 93 18 106/50 (68) 04/28/18 12:00 Room Air 04/28/18 12:00 93 04/28/18 11:47 Room Air 04/28/18 11:44 Room Air 04/28/18 11:30 88 16 104/57 (73) 100 04/28/18 11:00 87/49 04/28/18 11:00 89 17 97/51 (66) 99 04/28/18 10:30 91 21 97/49 (65) 99 04/28/18 10:00 81 19 94/44 (61) 98 04/28/18 10:00 98/46 04/28/18 09:30 90 15 86/59 (68) 84 04/28/18 09:00 95 14 140/72 (94) 97 04/28/18 09:00 121/56 04/28/18 08:30 75 14 113/52 (72) 94 04/28/18 08:00 77 19 111/51 (71) 99 04/28/18 08:00 110/54 04/28/18 08:00 Nasal Cannula 4.0 04/28/18 08:00 78 04/28/18 07:30 98.6 98 21 113/74 (87) 99 04/28/18 07:02 73 18 105/54 (71) 94 04/28/18 07:00 91/75 04/28/18 06:00 73 18 115/56 (75) 94 04/28/18 05:30 76 18 115/54 (74) 94 04/28/18 05:00 70 17 97/55 (69) 96 04/28/18 05:00 97/55 04/28/18 04:30 68 17 111/66 (81) 96 04/28/18 04:00 Nasal Cannula 4.0 04/28/18 04:00 111/48 04/28/18 04:00 98.4 72 17 102/48 (66) 96 04/28/18 04:00 72 04/28/18 03:30 68 17 110/48 (68) 96 04/28/18 03:00 68 17 102/48 (66) 96 04/28/18 03:00 102/56 04/28/18 02:30 68 17 78/48 (58) 96 04/28/18 02:00 70 17 97/37 (57) 96 04/28/18 02:00 70/37 04/28/18 01:39 81/59 04/28/18 01:30 68 17 94/50 (65) 94 04/28/18 01:00 94/50 04/28/18 01:00 68 17 91/48 (62) 96 04/28/18 00:30 66 18 85/32 (49) 96 04/28/18 00:00 65 04/28/18 00:00 121/38 04/28/18 00:00 98.4 65 18 77/17 (37) 96 04/28/18 00:00 Nasal Cannula 4.0 Intake and Output 04/27/18 04/28/18 19:00 07:00 Intake Total 680.831 ml 424.996 ml Output Total 0 ml 300 ml Balance 680.831 ml 124.996 ml Intake Oral 210 ml IV Total 470.831 ml 424.996 ml Output Urine Total 0 ml 0 ml Emesis 300 ml # Bowel Movements 1 Laboratory Tests 04/28/18 05:25: White Blood Count 5.0, Red Blood Count 2.86L, Hemoglobin 8.6L, Hematocrit 26.4L , Mean Corpuscular Volume 92, Mean Corpuscular Hemoglobin 30.0, Mean Corpuscular Hemoglobin Concent 32.6, Red Cell Distribution Width 14.7, Platelet Count 172, Mean Platelet Volume 9.7, Neutrophils (%) (Auto) 68.3, Lymphocytes (% ) (Auto) 18.4L, Monocytes (%) (Auto) 10.8H, Eosinophils (%) (Auto) 2.0, Basophils (%) (Auto) 0.5, Sodium Level 128L, Potassium Level 4.5, Chloride Level 90L, Carbon Dioxide Level 24, Anion Gap 14, Blood Urea Nitrogen 41H, Creatinine 9.1H, Estimat Glomerular Filtration Rate 5.5, Glucose Level 89, Calcium Level 9.7, Phosphorus Level 5.1H, Magnesium Level 1.9, Total Bilirubin 1.7H, Direct Bilirubin 1.2H, Aspartate Amino Transf (AST/SGOT) 66H, Alanine Aminotransferase (ALT/SGPT) 21, Alkaline Phosphatase 580H, Pro-B-Type Natriuretic Peptide 3925H, Total Protein 7.6, Albumin 2.7L, Globulin 4.9, Albumin/Globulin Ratio 0.6L, Cortisol AM Sample 18.5 Height (Feet): 5 Height (Inches): 6.00 Weight (Pounds): 203 General Appearance: alert, overweight Neurologic: oriented x 3, responsive, depressed affect Edwin Brown MD Apr 28, 2018 23:34
[2018-04-29] VITALS (51 sets, daily range): BP systolic 63–110; BP diastolic 26–67
--- NOTE | 2018-04-29 01:30 | NUR ---
NURSE NOTES: Patient in bed sleeping comfortably. BP86/31. Continue on Dopamine drip 8mcg/kg/hr. Call light within easy reach.
--- NOTE | 2018-04-29 03:30 | NUR ---
NURSE NOTES: Patient refused am care. per patient its too early. pt BP 87/39. Continue on Dopamine drip 8mcg/kg/hr. Call light within easy reach.
[2018-04-29] MEDS: DOPamine 400mg/250ml 250 ML IV SCH ×2 (04:40→15:07)
--- NOTE | 2018-04-29 05:30 | NUR ---
NURSE NOTES: patient bp 106/29 HR 77. No SOB. NO s/s of acute and cardiac distress noted.Continue on Dopamine drip 8mcg/kg/hr. Call light within easy reach.
[2018-04-29 06:20] LABS: BASOPHILS % (AUTO) 3.1 % (0.0-2.0); HEMATOCRIT 27.5 % (37.0-47.0); LYMPHOCYTES % (AUTO) 30.7 % (20.0-45.0); MEAN CORPUSCULAR VOLUME 94 FL (80-99); NEUTROPHILS % (AUTO) 52.2 % (45.0-75.0); PLATELET COUNT 166 K/UL (150-450); RED BLOOD COUNT 2.94 M/UL (4.20-5.40); RED CELL DISTRIBUTION WIDTH 15.2 % (11.6-14.8); WHITE BLOOD COUNT 5.3 K/UL (4.8-10.8)
[2018-04-29] MEDS: Midodrine 10mg tab ORAL SCH ×3 (06:27→21:07)
[2018-04-29 06:54] LABS: ALANINE AMINOTRANSFERASE 14 U/L (12-78); ALBUMIN/GLOBULIN RATIO 0.6 (1.0-2.7); ALKALINE PHOSPHATASE 220 U/L (46-116); ANION GAP 19 mmol/L (5-15); ASPARTATE AMINO TRANSFERASE 20 U/L (15-37); BILIRUBIN,TOTAL 0.6 MG/DL (0.2-1.0); BLOOD UREA NITROGEN 34 mg/dL (7-18); CALCIUM 9.9 MG/DL (8.5-10.1); CARBON DIOXIDE 21 MMOL/L (21-32); CHLORIDE 92 MMOL/L (98-107); CREATININE 8.1 MG/DL (0.55-1.30); PHOSPHORUS 4.9 MG/DL (2.5-4.9); POTASSIUM 4.5 MMOL/L (3.5-5.1); SODIUM 132 MMOL/L (136-145)
--- NOTE | 2018-04-29 07:11 | NUR ---
HAND-OFF: Report given to WILLI Chicas.
--- NOTE | 2018-04-29 08:03 | NUR ---
NURSE NOTES: Report received from WILLI rCespo. Patient asleep when received with no s/s acute distress. Afebrile at this time and oxygen nasal canula at @ 2LPM and saturation 96% at this time. RT femoral Perma cath double lumen dressing dry and intact with no bleeding running Dopamine at 8mcg/kg/min. LAV shunt with bruit and thrill present.NPO at this time, able to self repositioned.Call light within easy reach.Will continue to monitor.
[2018-04-29] MEDS: Heparin 5000 units/ml inj SUBQ SCH ×2 (08:44→20:30)
[2018-04-29] MEDS: Aspirin Baby 81mg ORAL SCH (08:44)
[2018-04-29] MEDS: Citalopram Hydrobromide 10mg Tab ORAL SCH (08:44)
[2018-04-29] MEDS: Bisacodyl EC 5mg tab ORAL SCH ×2 (08:45→17:26)
--- NOTE | 2018-04-29 08:46 | NUR ---
NURSE NOTES: Refused Renvela as stated " I have not eating"
--- NOTE | 2018-04-29 09:53 | Pulmonolgy Critical Care Note ---
Critical Care - Asmt/Plan Problems: (1) Septic shock (2) Pneumonia (3) Hypotension (4) ESRD (end stage renal disease) on dialysis (5) CHF (congestive heart failure) (6) Hypoparathyroidism Respiratory: monitor respiratory rate, adjust FIO2, CXR Cardiac: continue pressors, continue to monitor HR/BP Renal: F/U I&O Infectious Disease: check cultures Gastrointestinal: continue feedings/current rate Endocrine: monitor blood sugar Hematologic: monitor H/H Prophylaxis: Heparin Notes Reviewed: renal Discussed with: nurses, consultants, employment evaluator/case managerretail manager in training - Objective Last 24 Hour Vital Signs Date Time Temp Pulse Resp B/P (MAP) Pulse Ox O2 Delivery O2 Flow Rate FiO2 04/29/18 07:00 95/38 04/29/18 07:00 77 17 95/38 (57) 96 04/29/18 06:30 101 20 76/47 (57) 93 04/29/18 06:00 77 20 94 04/29/18 06:00 77 20 106/29 (54) 94 04/29/18 06:00 106/29 04/29/18 05:30 64 17 88/30 (49) 94 04/29/18 05:28 66 16 70/33 (45) 90 04/29/18 05:26 78 20 63/30 (41) 96 04/29/18 05:00 87 20 63/26 (38) 98 04/29/18 05:00 63/80 04/29/18 04:40 89/37 04/29/18 04:30 76 19 89/37 (54) 97 04/29/18 04:00 78 19 101/35 (57) 99 04/29/18 04:00 77 04/29/18 04:00 Room Air 04/29/18 04:00 89/37 04/29/18 03:52 79 19 87/39 (55) 98 04/29/18 03:30 70 17 64/50 (55) 95 04/29/18 03:00 77 17 80/41 (54) 91 04/29/18 02:30 86 23 63/43 (50) 04/29/18 02:15 79 17 72/36 (48) 04/29/18 02:00 79 19 92/39 (56) 04/29/18 02:00 72/36 04/29/18 01:30 80 21 93/33 (53) 99 04/29/18 01:15 79 19 88/47 (61) 99 04/29/18 01:00 88/47 04/29/18 01:00 78 18 92/31 (51) 04/29/18 00:30 78 14 88/39 (55) 100 04/29/18 00:15 80 17 79/43 (55) 100 04/29/18 00:00 98.1 80 15 87/36 (53) 100 04/29/18 00:00 Room Air 04/29/18 00:00 79/43 04/29/18 00:00 83 04/28/18 23:45 80 16 83/39 (54) 100 04/28/18 23:30 78 16 94/34 (54) 100 04/28/18 23:00 91/41 04/28/18 23:00 79 15 91/41 (58) 100 04/28/18 22:45 83 18 102/56 (71) 96 04/28/18 22:30 80 18 84/48 (60) 99 04/28/18 22:15 85 18 86/41 (56) 97 04/28/18 22:00 82 16 99/49 (66) 100 04/28/18 22:00 86/41 04/28/18 21:45 81 17 101/39 (59) 100 04/28/18 21:30 79 18 98/41 (60) 99 04/28/18 21:15 83 15 94/38 (56) 100 04/28/18 21:00 83 16 89/40 (56) 98 04/28/18 21:00 94/38 04/28/18 20:45 96 17 89/36 (53) 97 04/28/18 20:30 79 16 99/44 (62) 99 04/28/18 20:15 79 19 90/37 (54) 89 04/28/18 20:00 Room Air 04/28/18 20:00 98.0 79 15 79/39 (52) 98 04/28/18 20:00 79/39 04/28/18 20:00 78 04/28/18 19:30 80 20 98/39 (58) 92 04/28/18 19:00 77 18 95/39 (57) 96 04/28/18 19:00 87/47 04/28/18 18:30 78 16 94/36 (55) 100 04/28/18 18:22 89/41 04/28/18 18:00 90/42 04/28/18 18:00 85 16 90/33 (52) 100 04/28/18 17:30 81 19 97/48 (64) 91 04/28/18 17:00 90 18 90/32 (51) 99 04/28/18 16:30 85 19 87/35 (52) 04/28/18 16:00 Room Air 04/28/18 16:00 98.8 86 18 100/36 (57) 99 04/28/18 16:00 86 04/28/18 16:00 84/38 04/28/18 15:30 89 17 79/39 (52) 04/28/18 15:00 104 26 101/69 (80) 04/28/18 15:00 81/40 04/28/18 14:30 88 17 87/41 (56) 98 04/28/18 14:00 85/40 04/28/18 14:00 94 19 83/41 (55) 04/28/18 13:30 94 8 92/46 (61) 04/28/18 13:15 99 16 97/49 (65) 04/28/18 13:00 97/49 04/28/18 13:00 100 16 99/48 (65) 04/28/18 12:57 114/51 04/28/18 12:30 103 18 111/52 (71) 100 04/28/18 12:00 97.8 93 18 106/50 (68) 04/28/18 12:00 Room Air 04/28/18 12:00 93 04/28/18 11:47 Room Air 04/28/18 11:44 Room Air 04/28/18 11:30 88 16 104/57 (73) 100 04/28/18 11:00 87/49 04/28/18 11:00 89 17 97/51 (66) 99 04/28/18 10:30 91 21 97/49 (65) 99 04/28/18 10:00 81 19 94/44 (61) 98 04/28/18 10:00 98/46 Status: awake Condition: critical Neck: full ROM Lungs: chest wall tender Heart: HR/BP stable Abdomen: soft, active bowel sounds Extremities: no C/C/E Decubiti: location Critical Care - Subjective ROS Limited/Unobtainable: Yes Condition: critical EKG Rhythm: Sinus Rhythm FI02: 36 Sputum Amount: None I&O: Intake and Output 04/28/18 04/29/18 19:00 07:00 Intake Total 372.849 ml 357.007 ml Output Total 500 ml 0 ml Balance -127.151 ml 357.007 ml Intake Oral 50 ml IV Total 372.849 ml 307.007 ml Output Urine Total 0 ml 0 ml Emesis 200 ml Hemodialysis UF 300 ml # Bowel Movements 1 Labs: Laboratory Tests Test 04/29/18 05:00 White Blood Count 5.3 K/UL (4.8-10.8) Red Blood Count 2.94 M/UL (4.20-5.40) L Hemoglobin 9.0 G/DL (12.0-16.0) L Hematocrit 27.5 % (37.0-47.0) L Mean Corpuscular Volume 94 FL (80-99) Mean Corpuscular Hemoglobin 30.5 PG (27.0-31.0) Mean Corpuscular Hemoglobin Concent 32.6 G/DL (32.0-36.0) Red Cell Distribution Width 15.2 % (11.6-14.8) H Platelet Count 166 K/UL (150-450) Mean Platelet Volume 8.4 FL (6.5-10.1) Neutrophils (%) (Auto) 52.2 % (45.0-75.0) Lymphocytes (%) (Auto) 30.7 % (20.0-45.0) Monocytes (%) (Auto) 13.0 % (1.0-10.0) H Eosinophils (%) (Auto) 1.0 % (0.0-3.0) Basophils (%) (Auto) 3.1 % (0.0-2.0) H Sodium Level 132 MMOL/L (136-145) L Potassium Level 4.5 MMOL/L (3.5-5.1) Chloride Level 92 MMOL/L (98-107) L Carbon Dioxide Level 21 MMOL/L (21-32) Anion Gap 19 mmol/L (5-15) H Blood Urea Nitrogen 34 mg/dL (7-18) H Creatinine 8.1 MG/DL (0.55-1.30) H Estimat Glomerular Filtration Rate 6.3 mL/min (>60) Glucose Level 55 MG/DL (74-106) L Uric Acid 4.1 MG/DL (2.6-7.2) Calcium Level 9.9 MG/DL (8.5-10.1) Phosphorus Level 4.9 MG/DL (2.5-4.9) Magnesium Level 2.0 MG/DL (1.8-2.4) Total Bilirubin 0.6 MG/DL (0.2-1.0) Aspartate Amino Transf (AST/SGOT) 20 U/L (15-37) Alanine Aminotransferase (ALT/SGPT) 14 U/L (12-78) Alkaline Phosphatase 220 U/L (46-116) H C-Reactive Protein, Quantitative 28.0 mg/dL (0.00-0.90) H Pro-B-Type Natriuretic Peptide 4057 pg/mL (0-125) H Total Protein 7.8 G/DL (6.4-8.2) Albumin 3.0 G/DL (3.4-5.0) L Globulin 4.8 g/dL Albumin/Globulin Ratio 0.6 (1.0-2.7) L Cuate Schmidt MD Apr 29, 2018 09:53
--- NOTE | 2018-04-29 10:12 | NUR ---
NURSE NOTES: Able to self repositioned.No s/s acute distress.Seen by Dr Schmidt and Dalila, will follow up with new orders.Kept clean dry and comfortable.
--- NOTE | 2018-04-29 10:19 | Nephrology Progress Note ---
Assessment/Plan Problem List: (1) ESRD (end stage renal disease) on dialysis (2) Hypotension (3) Anemia of renal disease (4) Metabolic encephalopathy (5) Pneumonia Assessment ESRD on HD- HypoThyroidism- Periodic Hypotension- encephalopathic , metabolic- Plan bp still maintained on dopamin dialysis next 04/30 Reglan for vomiting recheck serum cortisol level- pending add asa and isordil for rising Troponin add prn imodium for loose bm per orders midodrine per consultants antibiotics for pneumonia Subjective ROS Limited/Unobtainable: No Constitutional: Reports: other - no more vomiting Objective Objective Last 24 Hour Vital Signs Date Time Temp Pulse Resp B/P (MAP) Pulse Ox O2 Delivery O2 Flow Rate FiO2 04/29/18 08:00 Room Air 04/29/18 07:00 95/38 04/29/18 07:00 77 17 95/38 (57) 96 04/29/18 06:30 101 20 76/47 (57) 93 04/29/18 06:00 77 20 94 04/29/18 06:00 77 20 106/29 (54) 94 04/29/18 06:00 106/29 04/29/18 05:30 64 17 88/30 (49) 94 04/29/18 05:28 66 16 70/33 (45) 90 04/29/18 05:26 78 20 63/30 (41) 96 04/29/18 05:00 87 20 63/26 (38) 98 04/29/18 05:00 63/80 04/29/18 04:40 89/37 04/29/18 04:30 76 19 89/37 (54) 97 04/29/18 04:00 78 19 101/35 (57) 99 04/29/18 04:00 77 04/29/18 04:00 Room Air 04/29/18 04:00 89/37 04/29/18 03:52 79 19 87/39 (55) 98 04/29/18 03:30 70 17 64/50 (55) 95 04/29/18 03:00 77 17 80/41 (54) 91 04/29/18 02:30 86 23 63/43 (50) 04/29/18 02:15 79 17 72/36 (48) 04/29/18 02:00 79 19 92/39 (56) 04/29/18 02:00 72/36 04/29/18 01:30 80 21 93/33 (53) 99 04/29/18 01:15 79 19 88/47 (61) 99 04/29/18 01:00 88/47 04/29/18 01:00 78 18 92/31 (51) 04/29/18 00:30 78 14 88/39 (55) 100 04/29/18 00:15 80 17 79/43 (55) 100 04/29/18 00:00 98.1 80 15 87/36 (53) 100 04/29/18 00:00 Room Air 04/29/18 00:00 79/43 04/29/18 00:00 83 04/28/18 23:45 80 16 83/39 (54) 100 04/28/18 23:30 78 16 94/34 (54) 100 04/28/18 23:00 91/41 04/28/18 23:00 79 15 91/41 (58) 100 04/28/18 22:45 83 18 102/56 (71) 96 04/28/18 22:30 80 18 84/48 (60) 99 04/28/18 22:15 85 18 86/41 (56) 97 04/28/18 22:00 82 16 99/49 (66) 100 04/28/18 22:00 86/41 04/28/18 21:45 81 17 101/39 (59) 100 04/28/18 21:30 79 18 98/41 (60) 99 04/28/18 21:15 83 15 94/38 (56) 100 04/28/18 21:00 83 16 89/40 (56) 98 04/28/18 21:00 94/38 04/28/18 20:45 96 17 89/36 (53) 97 04/28/18 20:30 79 16 99/44 (62) 99 04/28/18 20:15 79 19 90/37 (54) 89 04/28/18 20:00 Room Air 04/28/18 20:00 98.0 79 15 79/39 (52) 98 04/28/18 20:00 79/39 04/28/18 20:00 78 04/28/18 19:30 80 20 98/39 (58) 92 04/28/18 19:00 77 18 95/39 (57) 96 04/28/18 19:00 87/47 04/28/18 18:30 78 16 94/36 (55) 100 04/28/18 18:22 89/41 04/28/18 18:00 90/42 04/28/18 18:00 85 16 90/33 (52) 100 04/28/18 17:30 81 19 97/48 (64) 91 04/28/18 17:00 90 18 90/32 (51) 99 04/28/18 16:30 85 19 87/35 (52) 04/28/18 16:00 Room Air 04/28/18 16:00 98.8 86 18 100/36 (57) 99 04/28/18 16:00 86 04/28/18 16:00 84/38 04/28/18 15:30 89 17 79/39 (52) 04/28/18 15:00 104 26 101/69 (80) 04/28/18 15:00 81/40 04/28/18 14:30 88 17 87/41 (56) 98 04/28/18 14:00 85/40 04/28/18 14:00 94 19 83/41 (55) 04/28/18 13:30 94 8 92/46 (61) 04/28/18 13:15 99 16 97/49 (65) 04/28/18 13:00 97/49 04/28/18 13:00 100 16 99/48 (65) 04/28/18 12:57 114/51 04/28/18 12:30 103 18 111/52 (71) 100 04/28/18 12:00 97.8 93 18 106/50 (68) 04/28/18 12:00 Room Air 04/28/18 12:00 93 04/28/18 11:47 Room Air 04/28/18 11:44 Room Air 04/28/18 11:30 88 16 104/57 (73) 100 04/28/18 11:00 87/49 04/28/18 11:00 89 17 97/51 (66) 99 04/28/18 10:30 91 21 97/49 (65) 99 Intake and Output 04/28/18 04/29/18 19:00 07:00 Intake Total 372.849 ml 357.007 ml Output Total 500 ml 0 ml Balance -127.151 ml 357.007 ml Intake Oral 50 ml IV Total 372.849 ml 307.007 ml Output Urine Total 0 ml 0 ml Emesis 200 ml Hemodialysis UF 300 ml # Bowel Movements 1 Laboratory Tests 04/29/18 05:00: White Blood Count 5.3, Red Blood Count 2.94L, Hemoglobin 9.0L, Hematocrit 27.5L , Mean Corpuscular Volume 94, Mean Corpuscular Hemoglobin 30.5, Mean Corpuscular Hemoglobin Concent 32.6, Red Cell Distribution Width 15.2H, Platelet Count 166, Mean Platelet Volume 8.4, Neutrophils (%) (Auto) 52.2, Lymphocytes (%) (Auto) 30.7, Monocytes (%) (Auto) 13.0H, Eosinophils (%) (Auto) 1.0, Basophils (%) (Auto) 3.1H, Sodium Level 132L, Potassium Level 4.5, Chloride Level 92L, Carbon Dioxide Level 21, Anion Gap 19H, Blood Urea Nitrogen 34H, Creatinine 8.1H, Estimat Glomerular Filtration Rate 6.3, Glucose Level 55L , Uric Acid 4.1, Calcium Level 9.9, Phosphorus Level 4.9, Magnesium Level 2.0, Total Bilirubin 0.6, Aspartate Amino Transf (AST/SGOT) 20, Alanine Aminotransferase (ALT/SGPT) 14, Alkaline Phosphatase 220H, C-Reactive Protein, Quantitative 28.0H, Pro-B-Type Natriuretic Peptide 4057H, Total Protein 7.8, Albumin 3.0L, Globulin 4.8, Albumin/Globulin Ratio 0.6L Height (Feet): 5 Height (Inches): 6.00 Weight (Pounds): 203 General Appearance: no apparent distress Cardiovascular: normal rate Respiratory/Chest: decreased breath sounds Abdomen: soft Objective no change Fredrick Conner MD Apr 29, 2018 10:19
--- NOTE | 2018-04-29 12:10 | NUR ---
NURSE NOTES: Pt asleep, no acute distress.requesting to eat.Left message to Dr Diaz and as stated he will see the pt soon. Kept on close monitoring.No episode of vomiting during shift.Call light within easy reach.
--- NOTE | 2018-04-29 13:20 | NUR ---
NURSE NOTES: Seen by HOME LIGHTING ADVISER Tyree with order to resume to Renal Diet soft easy chew.Noted and carried out.
--- NOTE | 2018-04-29 13:49 | GI Progress Note ---
Assessment/Plan Problems: (1) Epigastric abdominal pain ICD Codes: R10.13 - Epigastric pain SNOMED: 61925937 (2) Anxiety ICD Codes: F41.9 - Anxiety disorder, unspecified SNOMED: 61912358 (3) Constipation ICD Codes: K59.00 - Constipation, unspecified SNOMED: 15310451 (4) Anemia of renal disease ICD Codes: D63.1 - Anemia in chronic kidney disease SNOMED: 572524617, 079463242 Status: unchanged Status Narrative Discussed with Dr. Diaz. Assessment/Plan Unknown history of abdominal surgery, resolevd at this time KUB noted mainly unremarkable cdiff, stool studies both negative OB stool negative on renal diet protonix daily zofran prn fu labs bowel regimen pain mgmt PT evaluation The patient was seen and examined at bedside and all new and available data was reviewed in the patients chart. I agree with the above findings, impression and plan. (Patient seen earlier today. Signature stamp does not reflect patient encounter time.). - Ryley Diaz MD Subjective Subjective denies abdominal pain nausea has resolved constipated Objective Last 24 Hour Vital Signs Date Time Temp Pulse Resp B/P (MAP) Pulse Ox O2 Delivery O2 Flow Rate FiO2 04/29/18 12:00 98.0 76 20 103/37 (59) 99 04/29/18 12:00 103/37 04/29/18 12:00 Room Air 04/29/18 12:00 76 04/29/18 11:30 73 19 103/37 (59) 100 04/29/18 11:00 72 19 103/37 (59) 100 04/29/18 11:00 103/37 04/29/18 11:00 112 20 103/38 (59) 93 04/29/18 10:30 83 18 103/43 (63) 93 04/29/18 10:00 83 18 98/40 (59) 93 04/29/18 10:00 103/38 04/29/18 09:00 89 22 86/61 (69) 94 04/29/18 09:00 98/40 04/29/18 08:00 Room Air 04/29/18 08:00 98.0 76 18 89/44 (59) 95 04/29/18 08:00 98/38 04/29/18 08:00 76 04/29/18 07:00 95/38 04/29/18 07:00 77 17 95/38 (57) 96 04/29/18 06:30 101 20 76/47 (57) 93 04/29/18 06:00 77 20 94 04/29/18 06:00 77 20 106/29 (54) 94 04/29/18 06:00 106/29 04/29/18 05:30 64 17 88/30 (49) 94 04/29/18 05:28 66 16 70/33 (45) 90 04/29/18 05:26 78 20 63/30 (41) 96 04/29/18 05:00 87 20 63/26 (38) 98 04/29/18 05:00 63/80 04/29/18 04:40 89/37 04/29/18 04:30 76 19 89/37 (54) 97 04/29/18 04:00 78 19 101/35 (57) 99 04/29/18 04:00 77 04/29/18 04:00 Room Air 04/29/18 04:00 89/37 04/29/18 03:52 79 19 87/39 (55) 98 04/29/18 03:30 70 17 64/50 (55) 95 04/29/18 03:00 77 17 80/41 (54) 91 04/29/18 02:30 86 23 63/43 (50) 04/29/18 02:15 79 17 72/36 (48) 04/29/18 02:00 79 19 92/39 (56) 04/29/18 02:00 72/36 04/29/18 01:30 80 21 93/33 (53) 99 04/29/18 01:15 79 19 88/47 (61) 99 04/29/18 01:00 88/47 04/29/18 01:00 78 18 92/31 (51) 04/29/18 00:30 78 14 88/39 (55) 100 04/29/18 00:15 80 17 79/43 (55) 100 04/29/18 00:00 98.1 80 15 87/36 (53) 100 04/29/18 00:00 Room Air 04/29/18 00:00 79/43 04/29/18 00:00 83 04/28/18 23:45 80 16 83/39 (54) 100 04/28/18 23:30 78 16 94/34 (54) 100 04/28/18 23:00 91/41 04/28/18 23:00 79 15 91/41 (58) 100 04/28/18 22:45 83 18 102/56 (71) 96 04/28/18 22:30 80 18 84/48 (60) 99 04/28/18 22:15 85 18 86/41 (56) 97 04/28/18 22:00 82 16 99/49 (66) 100 04/28/18 22:00 86/41 04/28/18 21:45 81 17 101/39 (59) 100 04/28/18 21:30 79 18 98/41 (60) 99 04/28/18 21:15 83 15 94/38 (56) 100 04/28/18 21:00 83 16 89/40 (56) 98 04/28/18 21:00 94/38 04/28/18 20:45 96 17 89/36 (53) 97 04/28/18 20:30 79 16 99/44 (62) 99 04/28/18 20:15 79 19 90/37 (54) 89 04/28/18 20:00 Room Air 04/28/18 20:00 98.0 79 15 79/39 (52) 98 04/28/18 20:00 79/39 04/28/18 20:00 78 04/28/18 19:30 80 20 98/39 (58) 92 04/28/18 19:00 77 18 95/39 (57) 96 04/28/18 19:00 87/47 04/28/18 18:30 78 16 94/36 (55) 100 04/28/18 18:22 89/41 04/28/18 18:00 90/42 04/28/18 18:00 85 16 90/33 (52) 100 04/28/18 17:30 81 19 97/48 (64) 91 04/28/18 17:00 90 18 90/32 (51) 99 04/28/18 16:30 85 19 87/35 (52) 04/28/18 16:00 Room Air 04/28/18 16:00 98.8 86 18 100/36 (57) 99 04/28/18 16:00 86 04/28/18 16:00 84/38 04/28/18 15:30 89 17 79/39 (52) 04/28/18 15:00 104 26 101/69 (80) 04/28/18 15:00 81/40 04/28/18 14:30 88 17 87/41 (56) 98 04/28/18 14:00 85/40 04/28/18 14:00 94 19 83/41 (55) Intake and Output 04/28/18 04/29/18 19:00 07:00 Intake Total 372.849 ml 357.007 ml Output Total 500 ml 0 ml Balance -127.151 ml 357.007 ml Intake Oral 50 ml IV Total 372.849 ml 307.007 ml Output Urine Total 0 ml 0 ml Emesis 200 ml Hemodialysis UF 300 ml # Bowel Movements 1 Laboratory Tests Test 04/29/18 05:00 White Blood Count 5.3 K/UL (4.8-10.8) Red Blood Count 2.94 M/UL (4.20-5.40) L Hemoglobin 9.0 G/DL (12.0-16.0) L Hematocrit 27.5 % (37.0-47.0) L Mean Corpuscular Volume 94 FL (80-99) Mean Corpuscular Hemoglobin 30.5 PG (27.0-31.0) Mean Corpuscular Hemoglobin Concent 32.6 G/DL (32.0-36.0) Red Cell Distribution Width 15.2 % (11.6-14.8) H Platelet Count 166 K/UL (150-450) Mean Platelet Volume 8.4 FL (6.5-10.1) Neutrophils (%) (Auto) 52.2 % (45.0-75.0) Lymphocytes (%) (Auto) 30.7 % (20.0-45.0) Monocytes (%) (Auto) 13.0 % (1.0-10.0) H Eosinophils (%) (Auto) 1.0 % (0.0-3.0) Basophils (%) (Auto) 3.1 % (0.0-2.0) H Sodium Level 132 MMOL/L (136-145) L Potassium Level 4.5 MMOL/L (3.5-5.1) Chloride Level 92 MMOL/L (98-107) L Carbon Dioxide Level 21 MMOL/L (21-32) Anion Gap 19 mmol/L (5-15) H Blood Urea Nitrogen 34 mg/dL (7-18) H Creatinine 8.1 MG/DL (0.55-1.30) H Estimat Glomerular Filtration Rate 6.3 mL/min (>60) Glucose Level 55 MG/DL (74-106) L Uric Acid 4.1 MG/DL (2.6-7.2) Calcium Level 9.9 MG/DL (8.5-10.1) Phosphorus Level 4.9 MG/DL (2.5-4.9) Magnesium Level 2.0 MG/DL (1.8-2.4) Total Bilirubin 0.6 MG/DL (0.2-1.0) Aspartate Amino Transf (AST/SGOT) 20 U/L (15-37) Alanine Aminotransferase (ALT/SGPT) 14 U/L (12-78) Alkaline Phosphatase 220 U/L (46-116) H C-Reactive Protein, Quantitative 28.0 mg/dL (0.00-0.90) H Pro-B-Type Natriuretic Peptide 4057 pg/mL (0-125) H Total Protein 7.8 G/DL (6.4-8.2) Albumin 3.0 G/DL (3.4-5.0) L Globulin 4.8 g/dL Albumin/Globulin Ratio 0.6 (1.0-2.7) L Height (Feet): 5 Height (Inches): 6.00 Weight (Pounds): 203 General Appearance: WD/WN, no apparent distress, alert Cardiovascular: normal rate Respiratory/Chest: normal breath sounds, no respiratory distress Abdominal Exam: normal bowel sounds, non tender, soft Extremities: non-tender Wm Faustin NP Apr 29, 2018 13:49
--- NOTE | 2018-04-29 13:55 | Cardiac Electrophysiology PN ---
Assessment/Plan Assessment/Plan 1. Troponin leak due to renal failure. Levels low and flat. No chest pain. 2. Septic shock. Dopamine drip 8 mcg/min. Continue midodrine 10 mg tid and iv Abx per ID 3. Bradycardia. On dopamine better 4. Anterior T-wave inversion. No chest pain. EF 60% 5. End-stage renal disease, on hemodialysis, per Dr. Conner. 6. Diarrhea C Diff was negative DW RN Subjective Subjective On Dopamine drip 8 mcg now in ICU. Alert in NAD Objective Last 24 Hour Vital Signs Date Time Temp Pulse Resp B/P (MAP) Pulse Ox O2 Delivery O2 Flow Rate FiO2 04/29/18 12:00 98.0 76 20 103/37 (59) 99 04/29/18 12:00 103/37 04/29/18 12:00 Room Air 04/29/18 12:00 76 04/29/18 11:30 73 19 103/37 (59) 100 04/29/18 11:00 72 19 103/37 (59) 100 04/29/18 11:00 103/37 04/29/18 11:00 112 20 103/38 (59) 93 04/29/18 10:30 83 18 103/43 (63) 93 04/29/18 10:00 83 18 98/40 (59) 93 04/29/18 10:00 103/38 04/29/18 09:00 89 22 86/61 (69) 94 04/29/18 09:00 98/40 04/29/18 08:00 Room Air 04/29/18 08:00 98.0 76 18 89/44 (59) 95 04/29/18 08:00 98/38 04/29/18 08:00 76 04/29/18 07:00 95/38 04/29/18 07:00 77 17 95/38 (57) 96 04/29/18 06:30 101 20 76/47 (57) 93 04/29/18 06:00 77 20 94 04/29/18 06:00 77 20 106/29 (54) 94 04/29/18 06:00 106/29 04/29/18 05:30 64 17 88/30 (49) 94 04/29/18 05:28 66 16 70/33 (45) 90 04/29/18 05:26 78 20 63/30 (41) 96 04/29/18 05:00 87 20 63/26 (38) 98 04/29/18 05:00 63/80 04/29/18 04:40 89/37 04/29/18 04:30 76 19 89/37 (54) 97 04/29/18 04:00 78 19 101/35 (57) 99 04/29/18 04:00 77 04/29/18 04:00 Room Air 04/29/18 04:00 89/37 04/29/18 03:52 79 19 87/39 (55) 98 04/29/18 03:30 70 17 64/50 (55) 95 04/29/18 03:00 77 17 80/41 (54) 91 04/29/18 02:30 86 23 63/43 (50) 04/29/18 02:15 79 17 72/36 (48) 04/29/18 02:00 79 19 92/39 (56) 04/29/18 02:00 72/36 04/29/18 01:30 80 21 93/33 (53) 99 04/29/18 01:15 79 19 88/47 (61) 99 04/29/18 01:00 88/47 04/29/18 01:00 78 18 92/31 (51) 04/29/18 00:30 78 14 88/39 (55) 100 04/29/18 00:15 80 17 79/43 (55) 100 04/29/18 00:00 98.1 80 15 87/36 (53) 100 04/29/18 00:00 Room Air 04/29/18 00:00 79/43 04/29/18 00:00 83 04/28/18 23:45 80 16 83/39 (54) 100 04/28/18 23:30 78 16 94/34 (54) 100 04/28/18 23:00 91/41 04/28/18 23:00 79 15 91/41 (58) 100 04/28/18 22:45 83 18 102/56 (71) 96 04/28/18 22:30 80 18 84/48 (60) 99 04/28/18 22:15 85 18 86/41 (56) 97 04/28/18 22:00 82 16 99/49 (66) 100 04/28/18 22:00 86/41 04/28/18 21:45 81 17 101/39 (59) 100 04/28/18 21:30 79 18 98/41 (60) 99 04/28/18 21:15 83 15 94/38 (56) 100 04/28/18 21:00 83 16 89/40 (56) 98 04/28/18 21:00 94/38 04/28/18 20:45 96 17 89/36 (53) 97 04/28/18 20:30 79 16 99/44 (62) 99 04/28/18 20:15 79 19 90/37 (54) 89 04/28/18 20:00 Room Air 04/28/18 20:00 98.0 79 15 79/39 (52) 98 04/28/18 20:00 79/39 04/28/18 20:00 78 04/28/18 19:30 80 20 98/39 (58) 92 04/28/18 19:00 77 18 95/39 (57) 96 04/28/18 19:00 87/47 04/28/18 18:30 78 16 94/36 (55) 100 04/28/18 18:22 89/41 04/28/18 18:00 90/42 04/28/18 18:00 85 16 90/33 (52) 100 04/28/18 17:30 81 19 97/48 (64) 91 04/28/18 17:00 90 18 90/32 (51) 99 04/28/18 16:30 85 19 87/35 (52) 04/28/18 16:00 Room Air 04/28/18 16:00 98.8 86 18 100/36 (57) 99 04/28/18 16:00 86 04/28/18 16:00 84/38 04/28/18 15:30 89 17 79/39 (52) 04/28/18 15:00 104 26 101/69 (80) 04/28/18 15:00 81/40 04/28/18 14:30 88 17 87/41 (56) 98 04/28/18 14:00 85/40 04/28/18 14:00 94 19 83/41 (55) Intake and Output 04/28/18 04/29/18 19:00 07:00 Intake Total 372.849 ml 357.007 ml Output Total 500 ml 0 ml Balance -127.151 ml 357.007 ml Intake Oral 50 ml IV Total 372.849 ml 307.007 ml Output Urine Total 0 ml 0 ml Emesis 200 ml Hemodialysis UF 300 ml # Bowel Movements 1 Laboratory Tests Test 04/29/18 05:00 White Blood Count 5.3 K/UL (4.8-10.8) Red Blood Count 2.94 M/UL (4.20-5.40) L Hemoglobin 9.0 G/DL (12.0-16.0) L Hematocrit 27.5 % (37.0-47.0) L Mean Corpuscular Volume 94 FL (80-99) Mean Corpuscular Hemoglobin 30.5 PG (27.0-31.0) Mean Corpuscular Hemoglobin Concent 32.6 G/DL (32.0-36.0) Red Cell Distribution Width 15.2 % (11.6-14.8) H Platelet Count 166 K/UL (150-450) Mean Platelet Volume 8.4 FL (6.5-10.1) Neutrophils (%) (Auto) 52.2 % (45.0-75.0) Lymphocytes (%) (Auto) 30.7 % (20.0-45.0) Monocytes (%) (Auto) 13.0 % (1.0-10.0) H Eosinophils (%) (Auto) 1.0 % (0.0-3.0) Basophils (%) (Auto) 3.1 % (0.0-2.0) H Sodium Level 132 MMOL/L (136-145) L Potassium Level 4.5 MMOL/L (3.5-5.1) Chloride Level 92 MMOL/L (98-107) L Carbon Dioxide Level 21 MMOL/L (21-32) Anion Gap 19 mmol/L (5-15) H Blood Urea Nitrogen 34 mg/dL (7-18) H Creatinine 8.1 MG/DL (0.55-1.30) H Estimat Glomerular Filtration Rate 6.3 mL/min (>60) Glucose Level 55 MG/DL (74-106) L Uric Acid 4.1 MG/DL (2.6-7.2) Calcium Level 9.9 MG/DL (8.5-10.1) Phosphorus Level 4.9 MG/DL (2.5-4.9) Magnesium Level 2.0 MG/DL (1.8-2.4) Total Bilirubin 0.6 MG/DL (0.2-1.0) Aspartate Amino Transf (AST/SGOT) 20 U/L (15-37) Alanine Aminotransferase (ALT/SGPT) 14 U/L (12-78) Alkaline Phosphatase 220 U/L (46-116) H C-Reactive Protein, Quantitative 28.0 mg/dL (0.00-0.90) H Pro-B-Type Natriuretic Peptide 4057 pg/mL (0-125) H Total Protein 7.8 G/DL (6.4-8.2) Albumin 3.0 G/DL (3.4-5.0) L Globulin 4.8 g/dL Albumin/Globulin Ratio 0.6 (1.0-2.7) L Objective HEAD AND NECK: No JVD. LUNGS: Decreased breath sounds. CARDIOVASCULAR: Regular S1 and S2 no GRM ABDOMEN: Soft. EXTREMITIES: No edema Tc Liang MD Apr 29, 2018 13:55
--- NOTE | 2018-04-29 14:28 | NUR ---
NURSE NOTES: REFUSED RENVELA STATED " i DID NIOT EAT AND IT MAKE ME NAUSEATED" EXPLAINED RISKS AND BENEFITS X 3 ATTEMPTS STILL STRONGLY REFUSING
--- NOTE | 2018-04-29 15:55 | NUR ---
NURSE NOTES: Left message to [facility] and made aware of tomorrow dialysis order, spoke to Angela.
--- NOTE | 2018-04-29 16:02 | NUR ---
NURSE NOTES: Awake sitting at bedside eating.No s/s acute distress.Kept clean and dry.Will continue to monitor.
[2018-04-29] MEDS ORDERED: NS 275ml ONE (16:09)
--- NOTE | 2018-04-29 16:52 | Internal Med Progress Note ---
Subjective Physician Name Ash Henley Attending Physician Ash Henley MD Current Medications Medications (Trade) Dose Ordered Sig/Marcos Route PRN Reason Start Time Stop Time Status Last Admin Dose Admin Acetaminophen (Tylenol) 650 mg Q6H PRN ORAL Mild Pain/Temp > 100.5 04/12/18 17:45 05/12/18 17:44 04/26/18 05:00 Aspirin (ASA) 81 mg DAILY ORAL 04/17/18 09:00 05/17/18 08:59 04/29/18 08:44 Bisacodyl (Dulcolax) 5 mg BID ORAL 04/21/18 19:00 05/21/18 18:59 04/29/18 08:45 Chlorhexidine Gluconate (Nivia-Hex 2%) 1 applic DAILY@2000 TOPIC 04/13/18 20:00 05/13/18 19:59 04/28/18 20:41 Citalopram Hydrobromide (celeXA) 20 mg DAILY ORAL 04/25/18 12:00 05/25/18 11:59 04/29/18 08:44 Dopamine HCl/ Dextrose 250 ml @ 0 mls/hr Q24H IV 04/18/18 02:00 05/18/18 01:59 04/29/18 15:07 Guaifenesin (Robitussin) 300 mg Q6H PRN ORAL For Cough 04/14/18 17:00 05/14/18 16:59 04/16/18 02:07 Heparin Sodium (Porcine) (Heparin 5000 units/ml) 5,000 units EVERY 12 HOURS SUBQ 04/12/18 21:00 05/12/18 20:59 04/29/18 08:44 Hydromorphone HCl (Dilaudid) 1 mg Q4H PRN IVP For Pain 04/25/18 11:45 05/02/18 11:44 04/28/18 18:17 Loperamide HCl (Imodium) 2 mg Q4H PRN ORAL Diarrhea 04/25/18 18:15 05/25/18 18:14 04/25/18 18:16 Lorazepam (Ativan) 2 mg Q6H PRN ORAL For Anxiety 04/25/18 11:15 05/02/18 11:14 Metoclopramide HCl (Reglan) 5 mg BEFORE MEALS ORAL 04/28/18 11:30 2/9/19 11:29 04/29/18 11:54 Metoclopramide HCl (Reglan) 10 mg Q8H PRN IVP Nausea & Vomiting 04/28/18 09:45 05/28/18 09:44 Midodrine (Pro-Amatine) 10 mg Q8HR ORAL 04/19/18 14:00 05/19/18 13:59 04/29/18 15:02 Mirtazapine (Remeron) 7.5 mg BEDTIME ORAL 04/25/18 21:00 05/25/18 20:59 04/28/18 20:42 Pantoprazole (Protonix) 40 mg BID ORAL 04/25/18 18:00 05/12/18 17:59 04/29/18 08:44 Polyethylene Glycol (Miralax) 17 gm BEDTIME ORAL 04/21/18 21:00 05/21/18 20:59 04/26/18 21:21 Sevelamer Carbonate (Renvela) 2,400 mg THREE TIMES A DAY ORAL 04/23/18 13:00 05/13/18 08:59 04/28/18 17:01 Allergies: Coded Allergies: CEFAZOLIN (Verified Allergy, Unknown, 10/02/10) CIPROFLOXACIN (Verified Allergy, Unknown, 10/02/10) GENTAMICIN (Verified Allergy, Unknown, 10/02/10) KETAMINE (Verified Allergy, Unknown, 03/29/18) LEVOFLOXACIN (Verified Allergy, Unknown, 10/02/10) PENICILLINS (Verified Allergy, Unknown, ITCH, 10/02/10) Uncoded Allergies: CONTRAST MEDIA (Adverse Reaction, Mild, MILD ITCHING AFTER CONTRAST MEDIA, 04/30/17) Subjective In ICU, awake, alert, responsive, feeling better, still hypotension. Objective Last Vital Signs Date Time Temp Pulse Resp B/P (MAP) Pulse Ox O2 Delivery O2 Flow Rate FiO2 04/29/18 16:00 Room Air 04/29/18 16:00 104/54 04/29/18 16:00 97.8 76 20 99 04/28/18 08:00 4.0 04/27/18 06:35 36 Laboratory Tests Test 04/29/18 05:00 White Blood Count 5.3 K/UL (4.8-10.8) Red Blood Count 2.94 M/UL (4.20-5.40) L Hemoglobin 9.0 G/DL (12.0-16.0) L Hematocrit 27.5 % (37.0-47.0) L Mean Corpuscular Volume 94 FL (80-99) Mean Corpuscular Hemoglobin 30.5 PG (27.0-31.0) Mean Corpuscular Hemoglobin Concent 32.6 G/DL (32.0-36.0) Red Cell Distribution Width 15.2 % (11.6-14.8) H Platelet Count 166 K/UL (150-450) Mean Platelet Volume 8.4 FL (6.5-10.1) Neutrophils (%) (Auto) 52.2 % (45.0-75.0) Lymphocytes (%) (Auto) 30.7 % (20.0-45.0) Monocytes (%) (Auto) 13.0 % (1.0-10.0) H Eosinophils (%) (Auto) 1.0 % (0.0-3.0) Basophils (%) (Auto) 3.1 % (0.0-2.0) H Sodium Level 132 MMOL/L (136-145) L Potassium Level 4.5 MMOL/L (3.5-5.1) Chloride Level 92 MMOL/L (98-107) L Carbon Dioxide Level 21 MMOL/L (21-32) Anion Gap 19 mmol/L (5-15) H Blood Urea Nitrogen 34 mg/dL (7-18) H Creatinine 8.1 MG/DL (0.55-1.30) H Estimat Glomerular Filtration Rate 6.3 mL/min (>60) Glucose Level 55 MG/DL (74-106) L Uric Acid 4.1 MG/DL (2.6-7.2) Calcium Level 9.9 MG/DL (8.5-10.1) Phosphorus Level 4.9 MG/DL (2.5-4.9) Magnesium Level 2.0 MG/DL (1.8-2.4) Total Bilirubin 0.6 MG/DL (0.2-1.0) Aspartate Amino Transf (AST/SGOT) 20 U/L (15-37) Alanine Aminotransferase (ALT/SGPT) 14 U/L (12-78) Alkaline Phosphatase 220 U/L (46-116) H C-Reactive Protein, Quantitative 28.0 mg/dL (0.00-0.90) H Pro-B-Type Natriuretic Peptide 4057 pg/mL (0-125) H Total Protein 7.8 G/DL (6.4-8.2) Albumin 3.0 G/DL (3.4-5.0) L Globulin 4.8 g/dL Albumin/Globulin Ratio 0.6 (1.0-2.7) L Intake and Output 04/28/18 04/29/18 18:59 06:59 Intake Total 385.932 ml 313.924 ml Output Total 500 ml 0 ml Balance -114.068 ml 313.924 ml Intake Oral 20 ml IV Total 385.932 ml 293.924 ml Output Urine Total 0 ml 0 ml Emesis 200 ml Hemodialysis UF 300 ml # Bowel Movements 1 Objective GENERAL: Awake, responsive, alert X 3 HEAD AND NECK: Pupils equal and reactive to light. Extraocular movements intact. Neck was supple. No JVD. LUNGS: Fair air entry. Fair respiratory effort. No wheeze or rhonchi. Decreased air in the bases. HEART: S1 and S2. Distant heart sounds. No murmur. ABDOMEN: Soft, nondistended, and nontender. Morbidly obese. EXTREMITIES: No cyanosis, clubbing, or edema. Right femoral area PermCath as well as left upper extremity AV fistula, functional. NEUROLOGIC: Cranial nerves II through XII are grossly intact. The patient is moving all the extremities spontaneously. Gait was not assessed due to the patient's status. PSYCHIATRIC: Mood and affect are intact. Assessment/Plan Assessment/Plan 1. Sepsis, most likely secondary to left upper lobe and, to a lesser extent, medial right lower lobe most likely representing multifocal pneumonia. 2. Hypotension, possible septic shock. 3. Pancytopenia with severe thrombocytopenia resolving. 4. End-stage renal disease, on hemodialysis. 5. Altered mental status, most likely toxic metabolic encephalopathy as a result of infection as well as uremia. 6. Anemia of chronic kidney disease. 7. Morbid obesity. 8. Bradycardia. PLAN: In ICU. follow up laboratory and cultures. Dr. Fredrick Conner from Nephrology consult Dr. Mcbride from ID consult. Discussed with the family member, brother at the bedside. Abx:off Code status is Full Code. DVT prophylaxis: heparin subcutaneous. Wean off Dopamine Drip. Herman Arzola,Ash MCWILLIAMS Apr 29, 2018 16:52
--- NOTE | 2018-04-29 18:09 | NUR ---
NURSE NOTES: Assist pt with adLs ,self repositioned.Kept clean and dry.Will continue to monitor.
--- NOTE | 2018-04-29 18:14 | NUR ---
NURSE NOTES: Dr. Ivan made aware of Heparin order of Dr. Gerardo martin aware of low plt.73- with order to go ahead and give the heparin. Suggested for dupplex study of both lower extremities-for SCD- Dr. Ivan choose to have Herparin SQ instead for DVT prophylaxis Addendum: 04/29/18 at 1847 by SAURAV BROUSSARD RN RN Entered notes for Wrong patient
--- NOTE | 2018-04-29 19:29 | NUR ---
HAND-OFF: Report given to WILLI Crespo.
--- NOTE | 2018-04-29 19:30 | NUR ---
NURSE NOTES: Received report from WILLI Chicas. Patient in bed awake,alert able to verbalize needs known to staff, talking on the cellphone Denies any pain or discomfort. Skin warm and dry to touch. On 2L oxygen via N/C , oxygen saturation 100%. RT femoral Perma cath double lumen intact , running Dopamine @2mcg/kg/min. Instructed patient to use call light for assistance. Bed alarm on. Bed locked and in low position. with Bedside commode. Fall precautions in place. Will continue plan of care.
[2018-04-29] MEDS: Dyna-Hex 2% Top Sol 2oz TOPIC SCH (20:29)
[2018-04-29] MEDS: Miralax 17gm pkt ORAL SCH (20:29)
[2018-04-29] MEDS: guaiFENesin 100mg/5ml Liq ud ORAL PRN (20:35)
--- NOTE | 2018-04-29 21:15 | Progress Note ---
DATE: 04/29/2018 SUBJECTIVE: The patient continues to be in ICU, continues to have depressed mood, anhedonia, worthlessness, hopelessness, decreased energy. The patient a calmer, decreased episodes of depression and anxiety, continues to be on dopamine drip for low blood pressure. Encourage her to participate in physical therapy. MENTAL STATUS EXAMINATION: The patient is alert, oriented times self, place, and situation. Mood is dysphoric and anxious. Affect is constricted. Congruent with mood. Thought process is concrete. Thought content, no suicidal or homicidal ideation. ASSESSMENT: 1. Major depressive disorder. 2. Anxiety disorder. PLAN: Provide the patient with reality orientation and supportive therapy. Edwin Brown M.D. DR: [place] JOB#: [id number] CC:
--- NOTE | 2018-04-29 21:35 | NUR ---
NURSE NOTES: Patient refused Miralax and heparin offered x3, explained the importance v/s risk and benefits still refused. Robitussin given for cough.Will continue to monitor patient.
--- NOTE | 2018-04-29 23:30 | NUR ---
NURSE NOTES: patient BP 108/39 HR 72. patient on Dopamine 2mcg/kg/min. Patient in bed sleeping comfortably. No s/s of cardiac and acute distress. Will continue plan of care.
[2018-04-30] VITALS (43 sets, daily range): BP systolic 74–111; BP diastolic 27–52
--- NOTE | 2018-04-30 01:00 | NUR ---
NURSE NOTES: Patient On 2L oxygen via N/C , oxygen saturation 100%. RT femoral Perma cath double lumen intact , running Dopamine @2mcg/kg/min, BP 94/42 HR 71. Instructed patient to use call light for assistance. Bed alarm on. Bed locked and in low position. with Bedside commode.
--- NOTE | 2018-04-30 03:00 | NUR ---
NURSE NOTES: BP 99/36 HR 70 Titrate Dopamine at 1 mcg/kg/min. Denies any pain or discomfort. No s/s acute distress noted. NO N/V. HOB elevated. Instructed patient to use call light for assistance. Bed alarm on. Bed locked and in low position. Will continue to monitor patient.
--- NOTE | 2018-04-30 04:06 | NUR ---
NURSE NOTES: BP 95/36 HR 70 Titrate Dopamine at 0.5 mcg/kg/min. Denies any pain or discomfort. No s/s acute distress noted. NO N/V. HOB elevated. Instructed patient to use call light for assistance. Will continue to monitor patient.
--- NOTE | 2018-04-30 05:05 | NUR ---
NURSE NOTES: Patient in bed awake,alert denies any pain or discomfort. Patient now off Dopamine drip will continue to monitor patient. Patient aware about titrating and turning off Dopamine drip. Call light within easy reach.
[2018-04-30] MEDS: Midodrine 10mg tab ORAL SCH ×3 (05:21→21:04)
[2018-04-30 06:18] LABS: HEMATOCRIT 22.5 % (37.0-47.0); HEMOGLOBIN 7.4 G/DL (12.0-16.0); MEAN CORPUSCULAR VOLUME 92 FL (80-99); PLATELET COUNT 152 K/UL (150-450); RED BLOOD COUNT 2.45 M/UL (4.20-5.40); RED CELL DISTRIBUTION WIDTH 14.4 % (11.6-14.8); WHITE BLOOD COUNT 5.7 K/UL (4.8-10.8)
[2018-04-30 07:05] LABS: ALANINE AMINOTRANSFERASE 25 U/L (12-78); ALBUMIN 2.4 G/DL (3.4-5.0); ALBUMIN/GLOBULIN RATIO 0.5 (1.0-2.7); ALKALINE PHOSPHATASE 421 U/L (46-116); ANION GAP 13 mmol/L (5-15); ASPARTATE AMINO TRANSFERASE 18 U/L (15-37); BILIRUBIN,TOTAL 0.7 MG/DL (0.2-1.0); BLOOD UREA NITROGEN 38 mg/dL (7-18); CALCIUM 9.4 MG/DL (8.5-10.1); CARBON DIOXIDE 28 MMOL/L (21-32); CHLORIDE 93 MMOL/L (98-107); CREATININE 8.2 MG/DL (0.55-1.30); PHOSPHORUS 4.6 MG/DL (2.5-4.9); POTASSIUM 3.9 MMOL/L (3.5-5.1); SODIUM 133 MMOL/L (136-145)
--- NOTE | 2018-04-30 07:05 | NUR ---
HAND-OFF: Report given to WILLI Chicas. At 0500 patient off Dopamine drip SBP 92/45 HR 65. denies dizziness, no n/v. No SOB oxygen saturation 98%. Hgb 7.4 endorsed to Aviva MÁRQUEZ.Call light within easy reach.
--- NOTE | 2018-04-30 07:10 | NUR ---
NURSE NOTES: Report received from WILLI Crespo
--- NOTE | 2018-04-30 08:00 | NUR ---
NURSE NOTES: Patient awake when received with no s/s acute distress. Afebrile at this time and off dopamine drip. Consumed 50% at breakfast. To be dialyses today by [facility] dialysis and [place] dialysis nurse made aware.RT femoral Perma cath double lumen dressing dry and intact. LAV shunt with bruit and thrill present.Pt able to self repositioned.Call light within easy reach.Will continue to monitor.
--- NOTE | 2018-04-30 08:28 | Pulmonolgy Critical Care Note ---
Critical Care - Asmt/Plan Problems: (1) Septic shock (2) Pneumonia (3) Hypotension (4) ESRD (end stage renal disease) on dialysis (5) CHF (congestive heart failure) (6) Hypoparathyroidism Respiratory: monitor respiratory rate, adjust FIO2, CXR Cardiac: continue to monitor HR/BP Renal: F/U I&O Infectious Disease: check cultures Gastrointestinal: continue feedings/current rate Endocrine: monitor blood sugar Hematologic: monitor H/H, transfuse if hgb<8.5 Neurologic: PRN Morphine, keep patient comfortable Prophylaxis: Protonix, Heparin Notes Reviewed: cardio, renal Discussed with: nurses, consultants, telephonic nurse case managercelebrity manager - Objective Last 24 Hour Vital Signs Date Time Temp Pulse Resp B/P (MAP) Pulse Ox O2 Delivery O2 Flow Rate FiO2 04/30/18 08:00 97.8 78 22 110/43 (65) 99 04/30/18 08:00 Room Air 04/30/18 07:00 70 23 92/45 (61) 97 04/30/18 06:30 72 20 89/38 (55) 94 04/30/18 06:15 72 20 84/42 (56) 94 04/30/18 06:00 71 19 86/35 (52) 97 04/30/18 05:45 70 21 87/45 (59) 98 04/30/18 05:30 78 23 111/52 (71) 98 04/30/18 05:17 70 19 83/29 (47) 97 04/30/18 05:15 68 19 96 04/30/18 05:00 70 18 93/31 (51) 95 04/30/18 04:45 74 16 96/39 (58) 98 04/30/18 04:30 87 21 100/42 (61) 95 04/30/18 04:15 81 20 100/36 (57) 86 04/30/18 04:00 Room Air 04/30/18 04:00 97.9 71 20 95/36 (55) 96 04/30/18 04:00 70 04/30/18 03:50 69 19 94/41 (58) 95 04/30/18 03:30 69 19 99/36 (57) 95 04/30/18 03:00 70 19 96/36 (56) 98 04/30/18 02:30 72 21 103/38 (59) 94 04/30/18 02:00 69 19 109/34 (59) 96 04/30/18 02:00 103/38 04/30/18 01:30 73 21 94/42 (59) 96 04/30/18 01:00 69 20 95/39 (57) 94 04/30/18 01:00 94/42 04/30/18 00:30 69 19 95/40 (58) 93 04/30/18 00:00 97/39 04/30/18 00:00 81 04/30/18 00:00 Room Air 04/30/18 00:00 98.0 75 21 108/39 (62) 96 04/29/18 23:30 71 22 87/37 (54) 94 04/29/18 23:00 73 18 96/45 (62) 94 04/29/18 23:00 87/37 04/29/18 22:30 70 21 96/45 (62) 95 04/29/18 22:00 74 17 94/37 (56) 93 04/29/18 22:00 96/45 04/29/18 21:30 75 21 93/48 (63) 93 04/29/18 21:07 78 22 90/39 (56) 95 04/29/18 21:00 90/39 04/29/18 21:00 80 23 70/51 (57) 95 04/29/18 20:30 83 21 102/49 (66) 93 04/29/18 20:00 97.5 79 22 97/35 (55) 98 04/29/18 20:00 78 04/29/18 20:00 102/49 04/29/18 20:00 Room Air 04/29/18 19:33 Nasal Cannula 2.0 28 04/29/18 19:33 97 Nasal Cannula 2.0 28 04/29/18 19:30 73 20 92/42 (59) 100 04/29/18 19:00 83 22 91/31 (51) 100 04/29/18 19:00 92/42 04/29/18 18:30 76 22 103/33 (56) 100 04/29/18 18:00 66 26 91/36 (54) 98 04/29/18 18:00 103/33 04/29/18 17:30 74 26 79/28 (45) 96 04/29/18 17:00 103/42 04/29/18 17:00 92 26 103/42 (62) 96 04/29/18 16:30 92 24 104/40 (61) 98 04/29/18 16:00 Room Air 04/29/18 16:00 104/54 04/29/18 16:00 76 04/29/18 16:00 97.8 76 20 103/37 (59) 99 04/29/18 15:30 93 19 90/32 (51) 93 04/29/18 15:07 88/34 04/29/18 15:00 88/34 04/29/18 15:00 73 19 88/34 (52) 93 04/29/18 14:30 93 20 94/42 (59) 94 04/29/18 14:00 94/42 04/29/18 14:00 73 21 94/42 (59) 96 04/29/18 13:00 73 18 110/39 (62) 96 04/29/18 13:00 110/39 04/29/18 12:30 73 20 97/67 (77) 98 04/29/18 12:00 98.0 76 20 103/37 (59) 99 04/29/18 12:00 103/37 04/29/18 12:00 Room Air 04/29/18 12:00 76 04/29/18 11:30 73 19 103/37 (59) 100 04/29/18 11:00 72 19 103/37 (59) 100 04/29/18 11:00 103/37 04/29/18 11:00 112 20 103/38 (59) 93 04/29/18 10:30 83 18 103/43 (63) 93 04/29/18 10:00 83 18 98/40 (59) 93 04/29/18 10:00 103/38 04/29/18 09:00 89 22 86/61 (69) 94 04/29/18 09:00 98/40 Status: awake Condition: critical HEENT: atraumatic Neck: full ROM Lungs: chest wall tender Heart: HR/BP unstable, regular Abdomen: non-tender, active bowel sounds Extremities: edema Critical Care - Subjective Interval Events: tolerating extubation FI02: 28 Sputum Amount: None I&O: Intake and Output 04/29/18 04/30/18 19:00 07:00 Intake Total 384.684 ml 112.475 ml Output Total 0 ml 0 ml Balance 384.684 ml 112.475 ml Intake Oral 80 ml 60 ml IV Total 304.684 ml 52.475 ml Output Urine Total 0 ml 0 ml Labs: Laboratory Tests Test 04/30/18 04:30 White Blood Count 5.7 K/UL (4.8-10.8) Red Blood Count 2.45 M/UL (4.20-5.40) L Hemoglobin 7.4 G/DL (12.0-16.0) L Hematocrit 22.5 % (37.0-47.0) L Mean Corpuscular Volume 92 FL (80-99) Mean Corpuscular Hemoglobin 30.1 PG (27.0-31.0) Mean Corpuscular Hemoglobin Concent 32.8 G/DL (32.0-36.0) Red Cell Distribution Width 14.4 % (11.6-14.8) Platelet Count 152 K/UL (150-450) Mean Platelet Volume 8.9 FL (6.5-10.1) Neutrophils (%) (Auto) % (45.0-75.0) Lymphocytes (%) (Auto) % (20.0-45.0) Monocytes (%) (Auto) % (1.0-10.0) Eosinophils (%) (Auto) % (0.0-3.0) Basophils (%) (Auto) % (0.0-2.0) Neutrophils % (Manual) Pending Lymphocytes % (Manual) Pending Platelet Estimate Pending Platelet Morphology Pending Sodium Level 133 MMOL/L (136-145) L Potassium Level 3.9 MMOL/L (3.5-5.1) Chloride Level 93 MMOL/L (98-107) L Carbon Dioxide Level 28 MMOL/L (21-32) Anion Gap 13 mmol/L (5-15) Blood Urea Nitrogen 38 mg/dL (7-18) H Creatinine 8.2 MG/DL (0.55-1.30) H Estimat Glomerular Filtration Rate 6.2 mL/min (>60) Glucose Level 80 MG/DL (74-106) Calcium Level 9.4 MG/DL (8.5-10.1) Phosphorus Level 4.6 MG/DL (2.5-4.9) Magnesium Level 1.8 MG/DL (1.8-2.4) Total Bilirubin 0.7 MG/DL (0.2-1.0) Aspartate Amino Transf (AST/SGOT) 18 U/L (15-37) Alanine Aminotransferase (ALT/SGPT) 25 U/L (12-78) Alkaline Phosphatase 421 U/L (46-116) H C-Reactive Protein, Quantitative > 70.0 mg/dL (0.00-0.90) H Pro-B-Type Natriuretic Peptide 3653 pg/mL (0-125) H Total Protein 6.8 G/DL (6.4-8.2) Albumin 2.4 G/DL (3.4-5.0) L Globulin 4.4 g/dL Albumin/Globulin Ratio 0.5 (1.0-2.7) L Cuate Schmidt MD Apr 30, 2018 08:28
[2018-04-30] MEDS: Citalopram Hydrobromide 10mg Tab ORAL SCH (08:40)
[2018-04-30] MEDS: Aspirin Baby 81mg ORAL SCH (08:41)
[2018-04-30] MEDS: Heparin 5000 units/ml inj SUBQ SCH ×2 (08:46→20:05)
[2018-04-30] MEDS: Bisacodyl EC 5mg tab ORAL SCH ×2 (08:48→17:52)
--- NOTE | 2018-04-30 09:07 | NUR ---
NURSE NOTES: Seen by Dr Schmidt with order to transfuse one unit of blood.Pt refused at this time.Dr Schmidt made aware.
--- NOTE | 2018-04-30 09:46 | NUR ---
RD ASSESSMENT & RECOMMENDATIONS SEE CARE ACTIVITY FOR COMPLETE ASSESSMENT DAILY ESTIMATED NEEDS: Needs based on ESRD on HD, obese 66.4kg adj 25-30 kcals/kg 4419-4771 total kcals 1.2-1.8 g protein/kg 80-120 g total protein Fluid per MD, on HD mL/kg total fluid mLs NUTRITION DIAGNOSIS: 1) Increased protein needs R/T renal dysfunction as evidenced by pt w/ ESRD on HD w/ variable PO intake at this time 2) Altered nutrition related lab values R/T renal dysfunction, pre-DM?, clinical condition as evidenced by low Na (133), elev BNP ([id number]->3653), A1C=6.0,low BP, pressor held at this time CURRENT DIET:Renal + Nepro BID PO DIET RECOMMENDATIONS: Liberalized diet of Low Na w/ continued variable PO intake ADDITIONAL RECOMMENDATIONS: 1) Weights per policy/ HD pt 2) Nephrovite x1 tab daily 3) Nepro 1 tetra diana BID in b/w meals 4) HS snack (to prevent hypoglycemia in AM) 5) Monitor BGs, need for carb controlled diet -A1C=6.0 6) Monitor PO intake closely -rec liberalized diet of low Na w/ variable PO intake
--- NOTE | 2018-04-30 10:07 | NUR ---
NURSE NOTES: Pt had a large episode of BM, formed and brown. Denied of any nausea and vomiting or pain at this time. Will continue to monitor.
--- NOTE | 2018-04-30 11:26 | Cardiac Electrophysiology PN ---
Assessment/Plan Assessment/Plan 1. Troponin leak due to renal failure. Levels low and flat. No chest pain. 2. Septic shock. Off Dopamine drip today. Continue midodrine 10 mg tid 3. Bradycardia. On dopamine better 4. Anterior T-wave inversion. No chest pain. EF 60% 5. End-stage renal disease, on hemodialysis, per Dr. Conner. 6. Diarrhea C. Diff was negative DW RN Subjective Subjective Off Dopamine now in ICU getting ready for HD. Alert in NAD Objective Last 24 Hour Vital Signs Date Time Temp Pulse Resp B/P (MAP) Pulse Ox O2 Delivery O2 Flow Rate FiO2 04/30/18 10:00 99 21 93/37 (55) 93 04/30/18 09:00 93 23 92/39 (56) 95 04/30/18 08:00 97.8 78 22 110/43 (65) 99 04/30/18 08:00 75 04/30/18 08:00 Room Air 04/30/18 07:11 Nasal Cannula 2.0 28 04/30/18 07:11 96 Nasal Cannula 2.0 28 04/30/18 07:00 70 23 92/45 (61) 97 04/30/18 06:30 72 20 89/38 (55) 94 04/30/18 06:15 72 20 84/42 (56) 94 04/30/18 06:00 71 19 86/35 (52) 97 04/30/18 05:45 70 21 87/45 (59) 98 04/30/18 05:30 78 23 111/52 (71) 98 04/30/18 05:17 70 19 83/29 (47) 97 04/30/18 05:15 68 19 96 04/30/18 05:00 70 18 93/31 (51) 95 04/30/18 04:45 74 16 96/39 (58) 98 04/30/18 04:30 87 21 100/42 (61) 95 04/30/18 04:15 81 20 100/36 (57) 86 04/30/18 04:00 Room Air 04/30/18 04:00 97.9 71 20 95/36 (55) 96 04/30/18 04:00 70 04/30/18 03:50 69 19 94/41 (58) 95 04/30/18 03:30 69 19 99/36 (57) 95 04/30/18 03:00 70 19 96/36 (56) 98 04/30/18 02:30 72 21 103/38 (59) 94 04/30/18 02:00 69 19 109/34 (59) 96 04/30/18 02:00 103/38 04/30/18 01:30 73 21 94/42 (59) 96 04/30/18 01:00 69 20 95/39 (57) 94 04/30/18 01:00 94/42 04/30/18 00:30 69 19 95/40 (58) 93 04/30/18 00:00 97/39 04/30/18 00:00 81 04/30/18 00:00 Room Air 04/30/18 00:00 98.0 75 21 108/39 (62) 96 04/29/18 23:30 71 22 87/37 (54) 94 04/29/18 23:00 73 18 96/45 (62) 94 04/29/18 23:00 87/37 04/29/18 22:30 70 21 96/45 (62) 95 04/29/18 22:00 74 17 94/37 (56) 93 04/29/18 22:00 96/45 04/29/18 21:30 75 21 93/48 (63) 93 04/29/18 21:07 78 22 90/39 (56) 95 04/29/18 21:00 90/39 04/29/18 21:00 80 23 70/51 (57) 95 04/29/18 20:30 83 21 102/49 (66) 93 04/29/18 20:00 97.5 79 22 97/35 (55) 98 04/29/18 20:00 78 04/29/18 20:00 102/49 04/29/18 20:00 Room Air 04/29/18 19:33 Nasal Cannula 2.0 28 04/29/18 19:33 97 Nasal Cannula 2.0 28 04/29/18 19:30 73 20 92/42 (59) 100 04/29/18 19:00 83 22 91/31 (51) 100 04/29/18 19:00 92/42 04/29/18 18:30 76 22 103/33 (56) 100 04/29/18 18:00 66 26 91/36 (54) 98 1/11/19 18:00 103/33 04/29/18 17:30 74 26 79/28 (45) 96 04/29/18 17:00 103/42 04/29/18 17:00 92 26 103/42 (62) 96 04/29/18 16:30 92 24 104/40 (61) 98 04/29/18 16:00 Room Air 04/29/18 16:00 104/54 04/29/18 16:00 76 04/29/18 16:00 97.8 76 20 103/37 (59) 99 04/29/18 15:30 93 19 90/32 (51) 93 04/29/18 15:07 88/34 04/29/18 15:00 88/34 04/29/18 15:00 73 19 88/34 (52) 93 04/29/18 14:30 93 20 94/42 (59) 94 04/29/18 14:00 94/42 04/29/18 14:00 73 21 94/42 (59) 96 04/29/18 13:00 73 18 110/39 (62) 96 04/29/18 13:00 110/39 04/29/18 12:30 73 20 97/67 (77) 98 04/29/18 12:00 98.0 76 20 103/37 (59) 99 04/29/18 12:00 103/37 04/29/18 12:00 Room Air 04/29/18 12:00 76 04/29/18 11:30 73 19 103/37 (59) 100 Intake and Output 04/29/18 04/30/18 19:00 07:00 Intake Total 384.684 ml 112.475 ml Output Total 0 ml 0 ml Balance 384.684 ml 112.475 ml Intake Oral 80 ml 60 ml IV Total 304.684 ml 52.475 ml Output Urine Total 0 ml 0 ml Laboratory Tests Test 04/30/18 04:30 White Blood Count 5.7 K/UL (4.8-10.8) Red Blood Count 2.45 M/UL (4.20-5.40) L Hemoglobin 7.4 G/DL (12.0-16.0) L Hematocrit 22.5 % (37.0-47.0) L Mean Corpuscular Volume 92 FL (80-99) Mean Corpuscular Hemoglobin 30.1 PG (27.0-31.0) Mean Corpuscular Hemoglobin Concent 32.8 G/DL (32.0-36.0) Red Cell Distribution Width 14.4 % (11.6-14.8) Platelet Count 152 K/UL (150-450) Mean Platelet Volume 8.9 FL (6.5-10.1) Neutrophils (%) (Auto) % (45.0-75.0) Lymphocytes (%) (Auto) % (20.0-45.0) Monocytes (%) (Auto) % (1.0-10.0) Eosinophils (%) (Auto) % (0.0-3.0) Basophils (%) (Auto) % (0.0-2.0) Neutrophils % (Manual) Pending Lymphocytes % (Manual) Pending Platelet Estimate Pending Platelet Morphology Pending Sodium Level 133 MMOL/L (136-145) L Potassium Level 3.9 MMOL/L (3.5-5.1) Chloride Level 93 MMOL/L (98-107) L Carbon Dioxide Level 28 MMOL/L (21-32) Anion Gap 13 mmol/L (5-15) Blood Urea Nitrogen 38 mg/dL (7-18) H Creatinine 8.2 MG/DL (0.55-1.30) H Estimat Glomerular Filtration Rate 6.2 mL/min (>60) Glucose Level 80 MG/DL (74-106) Calcium Level 9.4 MG/DL (8.5-10.1) Phosphorus Level 4.6 MG/DL (2.5-4.9) Magnesium Level 1.8 MG/DL (1.8-2.4) Total Bilirubin 0.7 MG/DL (0.2-1.0) Aspartate Amino Transf (AST/SGOT) 18 U/L (15-37) Alanine Aminotransferase (ALT/SGPT) 25 U/L (12-78) Alkaline Phosphatase 421 U/L (46-116) H C-Reactive Protein, Quantitative > 70.0 mg/dL (0.00-0.90) H Pro-B-Type Natriuretic Peptide 3653 pg/mL (0-125) H Total Protein 6.8 G/DL (6.4-8.2) Albumin 2.4 G/DL (3.4-5.0) L Globulin 4.4 g/dL Albumin/Globulin Ratio 0.5 (1.0-2.7) L Objective HEAD AND NECK: No JVD. LUNGS: Decreased breath sounds. CARDIOVASCULAR: Regular S1 and S2 no GRM ABDOMEN: Soft. EXTREMITIES: No edema Tc Liang MD Apr 30, 2018 11:26
--- NOTE | 2018-04-30 12:07 | Nephrology Progress Note ---
Assessment/Plan Problem List: (1) ESRD (end stage renal disease) on dialysis (2) Hypotension (3) Anemia of renal disease (4) Metabolic encephalopathy (5) Pneumonia Assessment ESRD on HD- HypoThyroidism- Periodic Hypotension- encephalopathic , metabolic- Plan bp still maintained on dopamin dialysis next 04/30 consider transfusion Reglan for vomiting recheck serum cortisol level- noted add asa and isordil for rising Troponin add prn imodium for loose bm per orders midodrine per consultants antibiotics for pneumonia Subjective ROS Limited/Unobtainable: No Constitutional: Reports: malaise Objective Objective Last 24 Hour Vital Signs Date Time Temp Pulse Resp B/P (MAP) Pulse Ox O2 Delivery O2 Flow Rate FiO2 04/30/18 11:00 89 21 87/46 (60) 95 04/30/18 10:00 99 21 93/37 (55) 93 04/30/18 09:00 93 23 92/39 (56) 95 04/30/18 08:00 97.8 78 22 110/43 (65) 99 04/30/18 08:00 75 04/30/18 08:00 Room Air 04/30/18 07:11 Nasal Cannula 2.0 28 04/30/18 07:11 96 Nasal Cannula 2.0 28 04/30/18 07:00 70 23 92/45 (61) 97 04/30/18 06:30 72 20 89/38 (55) 94 04/30/18 06:15 72 20 84/42 (56) 94 04/30/18 06:00 71 19 86/35 (52) 97 04/30/18 05:45 70 21 87/45 (59) 98 04/30/18 05:30 78 23 111/52 (71) 98 04/30/18 05:17 70 19 83/29 (47) 97 04/30/18 05:15 68 19 96 04/30/18 05:00 70 18 93/31 (51) 95 04/30/18 04:45 74 16 96/39 (58) 98 04/30/18 04:30 87 21 100/42 (61) 95 04/30/18 04:15 81 20 100/36 (57) 86 04/30/18 04:00 Room Air 04/30/18 04:00 97.9 71 20 95/36 (55) 96 04/30/18 04:00 70 04/30/18 03:50 69 19 94/41 (58) 95 04/30/18 03:30 69 19 99/36 (57) 95 04/30/18 03:00 70 19 96/36 (56) 98 04/30/18 02:30 72 21 103/38 (59) 94 04/30/18 02:00 69 19 109/34 (59) 96 04/30/18 02:00 103/38 04/30/18 01:30 73 21 94/42 (59) 96 04/30/18 01:00 69 20 95/39 (57) 94 04/30/18 01:00 94/42 04/30/18 00:30 69 19 95/40 (58) 93 04/30/18 00:00 97/39 04/30/18 00:00 81 04/30/18 00:00 Room Air 04/30/18 00:00 98.0 75 21 108/39 (62) 96 04/29/18 23:30 71 22 87/37 (54) 94 04/29/18 23:00 73 18 96/45 (62) 94 04/29/18 23:00 87/37 04/29/18 22:30 70 21 96/45 (62) 95 04/29/18 22:00 74 17 94/37 (56) 93 04/29/18 22:00 96/45 04/29/18 21:30 75 21 93/48 (63) 93 04/29/18 21:07 78 22 90/39 (56) 95 04/29/18 21:00 90/39 04/29/18 21:00 80 23 70/51 (57) 95 04/29/18 20:30 83 21 102/49 (66) 93 04/29/18 20:00 97.5 79 22 97/35 (55) 98 04/29/18 20:00 78 04/29/18 20:00 102/49 04/29/18 20:00 Room Air 04/29/18 19:33 Nasal Cannula 2.0 28 04/29/18 19:33 97 Nasal Cannula 2.0 28 04/29/18 19:30 73 20 92/42 (59) 100 04/29/18 19:00 83 22 91/31 (51) 100 04/29/18 19:00 92/42 04/29/18 18:30 76 22 103/33 (56) 100 04/29/18 18:00 66 26 91/36 (54) 98 04/29/18 18:00 103/33 04/29/18 17:30 74 26 79/28 (45) 96 04/29/18 17:00 103/42 04/29/18 17:00 92 26 103/42 (62) 96 04/29/18 16:30 92 24 104/40 (61) 98 04/29/18 16:00 Room Air 04/29/18 16:00 104/54 04/29/18 16:00 76 04/29/18 16:00 97.8 76 20 103/37 (59) 99 04/29/18 15:30 93 19 90/32 (51) 93 04/29/18 15:07 88/34 04/29/18 15:00 88/34 04/29/18 15:00 73 19 88/34 (52) 93 04/29/18 14:30 93 20 94/42 (59) 94 04/29/18 14:00 94/42 04/29/18 14:00 73 21 94/42 (59) 96 04/29/18 13:00 73 18 110/39 (62) 96 04/29/18 13:00 110/39 04/29/18 12:30 73 20 97/67 (77) 98 Intake and Output 04/29/18 04/30/18 19:00 07:00 Intake Total 384.684 ml 112.475 ml Output Total 0 ml 0 ml Balance 384.684 ml 112.475 ml Intake Oral 80 ml 60 ml IV Total 304.684 ml 52.475 ml Output Urine Total 0 ml 0 ml Laboratory Tests 04/30/18 04:30: White Blood Count 5.7, Red Blood Count 2.45L, Hemoglobin 7.4L, Hematocrit 22.5L , Mean Corpuscular Volume 92, Mean Corpuscular Hemoglobin 30.1, Mean Corpuscular Hemoglobin Concent 32.8, Red Cell Distribution Width 14.4, Platelet Count 152, Mean Platelet Volume 8.9, Neutrophils (%) (Auto) , Lymphocytes (%) ( Auto) , Monocytes (%) (Auto) , Eosinophils (%) (Auto) , Basophils (%) (Auto) , Differential Total Cells Counted 100, Neutrophils % (Manual) 75, Lymphocytes % ( Manual) 12L, Monocytes % (Manual) 13H, Eosinophils % (Manual) 0, Basophils % ( Manual) 0, Band Neutrophils 0, Platelet Estimate Adequate, Platelet Morphology Normal, Red Blood Cell Morphology Normal, Sodium Level 133L, Potassium Level 3.9 , Chloride Level 93L, Carbon Dioxide Level 28, Anion Gap 13, Blood Urea Nitrogen 38H, Creatinine 8.2H, Estimat Glomerular Filtration Rate 6.2, Glucose Level 80, Calcium Level 9.4, Phosphorus Level 4.6, Magnesium Level 1.8, Total Bilirubin 0.7, Aspartate Amino Transf (AST/SGOT) 18, Alanine Aminotransferase ( ALT/SGPT) 25, Alkaline Phosphatase 421H, C-Reactive Protein, Quantitative > 70.0H, Pro-B-Type Natriuretic Peptide 3653H, Total Protein 6.8, Albumin 2.4L, Globulin 4.4, Albumin/Globulin Ratio 0.5L Height (Feet): 5 Height (Inches): 6.00 Weight (Pounds): 206 General Appearance: no apparent distress Cardiovascular: tachycardia Respiratory/Chest: decreased breath sounds Abdomen: soft Objective no change Fredrick Conner MD Apr 30, 2018 12:07
--- NOTE | 2018-04-30 12:10 | NUR ---
NURSE NOTES: Ongoing dialysis, tolerate well at this time, SBP 90, off dopamine.Albumin given by dialysis nurse.Will continue to monitor.
--- NOTE | 2018-04-30 13:59 | General Progress Note ---
Assessment/Plan Assessment/Plan Assessment: (1) Epigastric abdominal pain ICD Codes: R10.13 - Epigastric pain SNOMED: 57261546 (2) Anxiety ICD Codes: F41.9 - Anxiety disorder, unspecified SNOMED: 62837394 (3) Constipation ICD Codes: K59.00 - Constipation, unspecified SNOMED: 77383586 (4) Anemia of renal disease ICD Codes: D63.1 - Anemia in chronic kidney disease SNOMED: 058457706, [id number] Status: unchanged Assessment/Plan Unknown history of abdominal surgery KUB noted mainly unremarkable cdiff, stool studies both negative OB stool negative on renal diet protonix daily zofran prn fu labs bowel regimen pain mgmt PT evaluation Subjective Allergies: Coded Allergies: CEFAZOLIN (Verified Allergy, Unknown, 10/02/10) CIPROFLOXACIN (Verified Allergy, Unknown, 10/02/10) GENTAMICIN (Verified Allergy, Unknown, 10/02/10) KETAMINE (Verified Allergy, Unknown, 03/29/18) LEVOFLOXACIN (Verified Allergy, Unknown, 10/02/10) PENICILLINS (Verified Allergy, Unknown, ITCH, 10/02/10) Uncoded Allergies: CONTRAST MEDIA (Adverse Reaction, Mild, MILD ITCHING AFTER CONTRAST MEDIA, 04/30/17) Subjective Feels OK no abdominal complaints some wet cough Objective Last 24 Hour Vital Signs Date Time Temp Pulse Resp B/P (MAP) Pulse Ox O2 Delivery O2 Flow Rate FiO2 04/30/18 13:00 97.8 80 22 81/40 (54) 96 04/30/18 12:00 92 04/30/18 12:00 Room Air 04/30/18 12:00 83 25 92/43 (59) 93 04/30/18 11:00 89 21 87/46 (60) 95 04/30/18 10:00 99 21 93/37 (55) 93 04/30/18 09:00 93 23 92/39 (56) 95 04/30/18 08:00 97.8 78 22 110/43 (65) 99 04/30/18 08:00 75 04/30/18 08:00 Room Air 04/30/18 07:11 Nasal Cannula 2.0 28 04/30/18 07:11 96 Nasal Cannula 2.0 28 04/30/18 07:00 70 23 92/45 (61) 97 04/30/18 06:30 72 20 89/38 (55) 94 04/30/18 06:15 72 20 84/42 (56) 94 04/30/18 06:00 71 19 86/35 (52) 97 04/30/18 05:45 70 21 87/45 (59) 98 04/30/18 05:30 78 23 111/52 (71) 98 04/30/18 05:17 70 19 83/29 (47) 97 04/30/18 05:15 68 19 96 04/30/18 05:00 70 18 93/31 (51) 95 04/30/18 04:45 74 16 96/39 (58) 98 04/30/18 04:30 87 21 100/42 (61) 95 04/30/18 04:15 81 20 100/36 (57) 86 04/30/18 04:00 Room Air 04/30/18 04:00 97.9 71 20 95/36 (55) 96 04/30/18 04:00 70 04/30/18 03:50 69 19 94/41 (58) 95 04/30/18 03:30 69 19 99/36 (57) 95 04/30/18 03:00 70 19 96/36 (56) 98 04/30/18 02:30 72 21 103/38 (59) 94 04/30/18 02:00 69 19 109/34 (59) 96 04/30/18 02:00 103/38 04/30/18 01:30 73 21 94/42 (59) 96 04/30/18 01:00 69 20 95/39 (57) 94 04/30/18 01:00 94/42 04/30/18 00:30 69 19 95/40 (58) 93 04/30/18 00:00 97/39 04/30/18 00:00 81 04/30/18 00:00 Room Air 04/30/18 00:00 98.0 75 21 108/39 (62) 96 04/29/18 23:30 71 22 87/37 (54) 94 04/29/18 23:00 73 18 96/45 (62) 94 04/29/18 23:00 87/37 04/29/18 22:30 70 21 96/45 (62) 95 04/29/18 22:00 74 17 94/37 (56) 93 04/29/18 22:00 96/45 04/29/18 21:30 75 21 93/48 (63) 93 04/29/18 21:07 78 22 90/39 (56) 95 04/29/18 21:00 90/39 04/29/18 21:00 80 23 70/51 (57) 95 04/29/18 20:30 83 21 102/49 (66) 93 04/29/18 20:00 97.5 79 22 97/35 (55) 98 04/29/18 20:00 78 04/29/18 20:00 102/49 04/29/18 20:00 Room Air 04/29/18 19:33 Nasal Cannula 2.0 28 04/29/18 19:33 97 Nasal Cannula 2.0 28 04/29/18 19:30 73 20 92/42 (59) 100 04/29/18 19:00 83 22 91/31 (51) 100 04/29/18 19:00 92/42 04/29/18 18:30 76 22 103/33 (56) 100 04/29/18 18:00 66 26 91/36 (54) 98 04/29/18 18:00 103/33 04/29/18 17:30 74 26 79/28 (45) 96 04/29/18 17:00 103/42 04/29/18 17:00 92 26 103/42 (62) 96 04/29/18 16:30 92 24 104/40 (61) 98 04/29/18 16:00 Room Air 04/29/18 16:00 104/54 04/29/18 16:00 76 04/29/18 16:00 97.8 76 20 103/37 (59) 99 04/29/18 15:30 93 19 90/32 (51) 93 04/29/18 15:07 88/34 04/29/18 15:00 88/34 04/29/18 15:00 73 19 88/34 (52) 93 04/29/18 14:30 93 20 94/42 (59) 94 04/29/18 14:00 94/42 04/29/18 14:00 73 21 94/42 (59) 96 Intake and Output 04/29/18 04/30/18 19:00 07:00 Intake Total 384.684 ml 112.475 ml Output Total 0 ml 0 ml Balance 384.684 ml 112.475 ml Intake Oral 80 ml 60 ml IV Total 304.684 ml 52.475 ml Output Urine Total 0 ml 0 ml Laboratory Tests 04/30/18 04:30: White Blood Count 5.7, Red Blood Count 2.45L, Hemoglobin 7.4L, Hematocrit 22.5L , Mean Corpuscular Volume 92, Mean Corpuscular Hemoglobin 30.1, Mean Corpuscular Hemoglobin Concent 32.8, Red Cell Distribution Width 14.4, Platelet Count 152, Mean Platelet Volume 8.9, Neutrophils (%) (Auto) , Lymphocytes (%) ( Auto) , Monocytes (%) (Auto) , Eosinophils (%) (Auto) , Basophils (%) (Auto) , Differential Total Cells Counted 100, Neutrophils % (Manual) 75, Lymphocytes % ( Manual) 12L, Monocytes % (Manual) 13H, Eosinophils % (Manual) 0, Basophils % ( Manual) 0, Band Neutrophils 0, Platelet Estimate Adequate, Platelet Morphology Normal, Red Blood Cell Morphology Normal, Sodium Level 133L, Potassium Level 3.9 , Chloride Level 93L, Carbon Dioxide Level 28, Anion Gap 13, Blood Urea Nitrogen 38H, Creatinine 8.2H, Estimat Glomerular Filtration Rate 6.2, Glucose Level 80, Calcium Level 9.4, Phosphorus Level 4.6, Magnesium Level 1.8, Total Bilirubin 0.7, Aspartate Amino Transf (AST/SGOT) 18, Alanine Aminotransferase ( ALT/SGPT) 25, Alkaline Phosphatase 421H, C-Reactive Protein, Quantitative > 70.0H, Pro-B-Type Natriuretic Peptide 3653H, Total Protein 6.8, Albumin 2.4L, Globulin 4.4, Albumin/Globulin Ratio 0.5L Height (Feet): 5 Height (Inches): 6.00 Weight (Pounds): 206 Objective WDWN NCAT supple CTA RRR abd soft, mild diffuse abd TTP (+) edema non focal Kevin Kramer MD Apr 30, 2018 13:59
--- NOTE | 2018-04-30 14:22 | NUR ---
NURSE NOTES: Seen by Dr sullivan will follow up with new orders. dialysis done and 2000cc out tolerate well.will continue to monitor.
--- NOTE | 2018-04-30 14:53 | Internal Med Progress Note ---
Subjective Date of Service: Apr 30, 2018 Physician Name Harrell,Edward Attending Physician Ash Henley MD Current Medications Medications (Trade) Dose Ordered Sig/Marcos Route PRN Reason Start Time Stop Time Status Last Admin Dose Admin Acetaminophen (Tylenol) 650 mg Q6H PRN ORAL Mild Pain/Temp > 100.5 04/12/18 17:45 05/12/18 17:44 04/26/18 05:00 Albumin Human 100 ml @ 100 mls/hr QOD PRN IV with HD 04/30/18 09:00 05/30/18 08:59 04/30/18 11:07 Aspirin (ASA) 81 mg DAILY ORAL 04/17/18 09:00 05/17/18 08:59 04/30/18 08:41 Bisacodyl (Dulcolax) 5 mg BID ORAL 04/21/18 19:00 05/21/18 18:59 04/30/18 08:48 Chlorhexidine Gluconate (Nivia-Hex 2%) 1 applic DAILY@2000 TOPIC 04/13/18 20:00 05/13/18 19:59 04/29/18 20:29 Citalopram Hydrobromide (celeXA) 20 mg DAILY ORAL 04/25/18 12:00 05/25/18 11:59 04/30/18 08:40 Dopamine HCl/ Dextrose 250 ml @ 0 mls/hr Q24H IV 04/18/18 02:00 05/18/18 01:59 04/29/18 15:07 Guaifenesin (Robitussin) 300 mg Q6H PRN ORAL For Cough 04/14/18 17:00 05/14/18 16:59 04/29/18 20:35 Heparin Sodium (Porcine) (Heparin 5000 units/ml) 5,000 units EVERY 12 HOURS SUBQ 04/12/18 21:00 05/12/18 20:59 04/30/18 08:46 Hydromorphone HCl (Dilaudid) 1 mg Q4H PRN IVP For Pain 04/25/18 11:45 05/02/18 11:44 04/28/18 18:17 Loperamide HCl (Imodium) 2 mg Q4H PRN ORAL Diarrhea 04/25/18 18:15 05/25/18 18:14 04/25/18 18:16 Lorazepam (Ativan) 2 mg Q6H PRN ORAL For Anxiety 04/25/18 11:15 05/02/18 11:14 Metoclopramide HCl (Reglan) 5 mg BEFORE MEALS ORAL 04/28/18 11:30 05/28/18 11:29 04/30/18 11:07 Metoclopramide HCl (Reglan) 10 mg Q8H PRN IVP Nausea & Vomiting 04/28/18 09:45 05/28/18 09:44 Midodrine (Pro-Amatine) 10 mg Q8HR ORAL 04/19/18 14:00 05/19/18 13:59 04/30/18 13:13 Mirtazapine (Remeron) 7.5 mg BEDTIME ORAL 04/25/18 21:00 05/25/18 20:59 04/29/18 20:29 Pantoprazole (Protonix) 40 mg BID ORAL 04/25/18 18:00 05/12/18 17:59 04/30/18 08:42 Polyethylene Glycol (Miralax) 17 gm BEDTIME ORAL 04/21/18 21:00 05/21/18 20:59 04/26/18 21:21 Sevelamer Carbonate (Renvela) 2,400 mg THREE TIMES A DAY ORAL 04/23/18 13:00 05/13/18 08:59 04/30/18 08:40 Allergies: Coded Allergies: CEFAZOLIN (Verified Allergy, Unknown, 10/02/10) CIPROFLOXACIN (Verified Allergy, Unknown, 10/02/10) GENTAMICIN (Verified Allergy, Unknown, 10/02/10) KETAMINE (Verified Allergy, Unknown, 03/29/18) LEVOFLOXACIN (Verified Allergy, Unknown, 10/02/10) PENICILLINS (Verified Allergy, Unknown, ITCH, 10/02/10) Uncoded Allergies: CONTRAST MEDIA (Adverse Reaction, Mild, MILD ITCHING AFTER CONTRAST MEDIA, 04/30/17) ROS Limited/Unobtainable: No Constitutional: Reports: no symptoms HEENT: Reports: no symptoms Cardiovascular: Reports: no symptoms Respiratory: Reports: no symptoms Gastrointestinal/Abdominal: Reports: no symptoms Genitourinary: Reports: no symptoms Neurologic/Psychiatric: Reports: no symptoms Subjective 53 YO F admitted with shortness of breath. Now pneumonia. Cover for Int Med- Dr Henley. ICU. Continues on dopamine. Objective Last Vital Signs Date Time Temp Pulse Resp B/P (MAP) Pulse Ox O2 Delivery O2 Flow Rate FiO2 04/30/18 14:24 Room Air 04/30/18 13:00 97.8 80 22 81/40 (54) 96 04/30/18 07:11 2.0 28 Laboratory Tests Test 04/30/18 04:30 White Blood Count 5.7 K/UL (4.8-10.8) Red Blood Count 2.45 M/UL (4.20-5.40) L Hemoglobin 7.4 G/DL (12.0-16.0) L Hematocrit 22.5 % (37.0-47.0) L Mean Corpuscular Volume 92 FL (80-99) Mean Corpuscular Hemoglobin 30.1 PG (27.0-31.0) Mean Corpuscular Hemoglobin Concent 32.8 G/DL (32.0-36.0) Red Cell Distribution Width 14.4 % (11.6-14.8) Platelet Count 152 K/UL (150-450) Mean Platelet Volume 8.9 FL (6.5-10.1) Neutrophils (%) (Auto) % (45.0-75.0) Lymphocytes (%) (Auto) % (20.0-45.0) Monocytes (%) (Auto) % (1.0-10.0) Eosinophils (%) (Auto) % (0.0-3.0) Basophils (%) (Auto) % (0.0-2.0) Differential Total Cells Counted 100 Neutrophils % (Manual) 75 % (45-75) Lymphocytes % (Manual) 12 % (20-45) L Monocytes % (Manual) 13 % (1-10) H Eosinophils % (Manual) 0 % (0-3) Basophils % (Manual) 0 % (0-2) Band Neutrophils 0 % (0-8) Platelet Estimate Adequate Platelet Morphology Normal Red Blood Cell Morphology Normal Sodium Level 133 MMOL/L (136-145) L Potassium Level 3.9 MMOL/L (3.5-5.1) Chloride Level 93 MMOL/L (98-107) L Carbon Dioxide Level 28 MMOL/L (21-32) Anion Gap 13 mmol/L (5-15) Blood Urea Nitrogen 38 mg/dL (7-18) H Creatinine 8.2 MG/DL (0.55-1.30) H Estimat Glomerular Filtration Rate 6.2 mL/min (>60) Glucose Level 80 MG/DL (74-106) Calcium Level 9.4 MG/DL (8.5-10.1) Phosphorus Level 4.6 MG/DL (2.5-4.9) Magnesium Level 1.8 MG/DL (1.8-2.4) Total Bilirubin 0.7 MG/DL (0.2-1.0) Aspartate Amino Transf (AST/SGOT) 18 U/L (15-37) Alanine Aminotransferase (ALT/SGPT) 25 U/L (12-78) Alkaline Phosphatase 421 U/L (46-116) H C-Reactive Protein, Quantitative > 70.0 mg/dL (0.00-0.90) H Pro-B-Type Natriuretic Peptide 3653 pg/mL (0-125) H Total Protein 6.8 G/DL (6.4-8.2) Albumin 2.4 G/DL (3.4-5.0) L Globulin 4.4 g/dL Albumin/Globulin Ratio 0.5 (1.0-2.7) L Intake and Output 04/29/18 04/30/18 19:00 07:00 Intake Total 384.684 ml 112.475 ml Output Total 0 ml 0 ml Balance 384.684 ml 112.475 ml Intake Oral 80 ml 60 ml IV Total 304.684 ml 52.475 ml Output Urine Total 0 ml 0 ml Objective Objective GENERAL: Awake, responsive, alert HEAD AND NECK: Pupils equal and reactive to light. Extraocular movements intact. Neck was supple. No JVD. LUNGS: Fair air entry. Poor respiratory effort. No wheeze or rhonchi. Decreased air in the bases. HEART: S1 and S2. Distant heart sounds. No murmur. ABDOMEN: Soft, nondistended, and nontender. Morbidly obese. EXTREMITIES: No cyanosis, clubbing, or edema. Right femoral area PermCath as well as left upper extremity AV fistula, functional. NEUROLOGIC: Cranial nerves II through XII are grossly intact. The patient is moving all the extremities spontaneously. Gait was not assessed due to the patient's status. PSYCHIATRIC: Mood and affect are intact. Assessment/Plan Assessment/Plan Assessment/Plan Assessment/Plan 1. Sepsis, most likely secondary to left upper lobe and, to a lesser extent, medial right lower lobe most likely representing multifocal pneumonia. 2. Hypotension, possible septic shock. 3. Pancytopenia with severe thrombocytopenia resolving. 4. End-stage renal disease, on hemodialysis. 5. Altered mental status, most likely toxic metabolic encephalopathy as a result of infection as well as uremia. 6. Anemia of chronic kidney disease. 7. Morbid obesity. 8. Bradycardia. 9. Diarrhea 10. Abdominal pain. PLAN: In ICU. follow up laboratory and cultures. Dr. Fredrick Conner from Nephrology consult; Hemodialysis 04/30/18. Dr. Mcbride from ID consult. Discussed with the family member, brother at the bedside. Abx:Meropenem, doxycycline and vfend per ID Code status is Full Code. DVT prophylaxis: heparin subcutaneous. continue Dopamine Drip CT of chest noted. Cortisol level Pending. C. Diff neg. Send stool for repeat Continue dopamine See GI consult; KUB=no obstruction advance diet Edward Harrell MD Apr 30, 2018 14:53
--- NOTE | 2018-04-30 15:23 | Infectious Diseases Prog Note ---
Assessment/Plan Assessment/Plan ASSESSMENT: 1. sepsis, shock, pneumonia, CT chest noted, pressors, bradycardia, sputum culture with mold, ? aspergillus pna, ? other source for shock, abdominal pain, n/v hx - s/p 14 day course meropenem and doxycycline - s/p 10 days voriconazole day # 10, held secondary to elevated TB which has now normalized - d/w microbiology and ID of mold pending (send out) - off pressors now - hearing better off vancomycin - monitor labs and chest x-ray - icu care, remains on pressors, no vent - monitor chest x-ray of abx/anti-fungal 2. End-stage renal disease, hemodialysis, has a right femoral line hemodialysis line and also left arm graft. 3. History of fistula in the past. 4. History of PermCath in the past 5. Anemia of chronic disease. 6. Hypertension - Blood pressure treatment per primary. 7. No history of diabetes mentioned. 8. Chronic kidney disease. 9. Obesity. 10. History of cholecystectomy. 11. History of parathyroidectomy. 12. History of carpal tunnel syndrome. 13. History of fractures, ORIF. 14. Past medical history noted. 15. Multiple drug allergies including cefazolin, Cipro, contrast media, gentamicin, ketamine, Levaquin and penicillin, she seems to tolerate carbapenems. 16. Social history is negative . 17. Family history is noncontributory. 18. MAR was noted. 19. Case discussed with RN. 20. Continue treatment per primary consultants. 21. Notes were noted and orders were entered. Subjective Constitutional: Reports: other - off pressors; Denies: fever HEENT: Reports: other - hearing overall better ; Denies: congestion Respiratory: Denies: shortness of breath Cardiovascular: Denies: chest pain Gastrointestinal/Abdominal: Denies: nausea, vomiting, diarrhea Genitourinary: Reports: other - no mckinney, + hd Psychiatric: Denies: depression Skin: Denies: rash Hematologic: Denies: bleeding Musculoskeletal: Denies: pain Allergies: Coded Allergies: CEFAZOLIN (Verified Allergy, Unknown, 10/02/10) CIPROFLOXACIN (Verified Allergy, Unknown, 10/02/10) GENTAMICIN (Verified Allergy, Unknown, 10/02/10) KETAMINE (Verified Allergy, Unknown, 03/29/18) LEVOFLOXACIN (Verified Allergy, Unknown, 10/02/10) PENICILLINS (Verified Allergy, Unknown, ITCH, 10/02/10) Uncoded Allergies: CONTRAST MEDIA (Adverse Reaction, Mild, MILD ITCHING AFTER CONTRAST MEDIA, 04/30/17) Objective Vital Signs Last 24 Hour Vital Signs Date Time Temp Pulse Resp B/P (MAP) Pulse Ox O2 Delivery O2 Flow Rate FiO2 04/30/18 15:00 86 25 99/35 (56) 93 04/30/18 14:24 Room Air 04/30/18 14:22 Room Air 04/30/18 14:00 84 25 82/35 (51) 93 04/30/18 13:00 97.8 80 22 81/40 (54) 96 04/30/18 12:00 92 04/30/18 12:00 Room Air 04/30/18 12:00 83 25 92/43 (59) 93 04/30/18 11:00 89 21 87/46 (60) 95 04/30/18 10:00 99 21 93/37 (55) 93 04/30/18 09:00 93 23 92/39 (56) 95 04/30/18 08:00 97.8 78 22 110/43 (65) 99 04/30/18 08:00 75 04/30/18 08:00 Room Air 04/30/18 07:11 Nasal Cannula 2.0 28 04/30/18 07:11 96 Nasal Cannula 2.0 28 04/30/18 07:00 70 23 92/45 (61) 97 04/30/18 06:30 72 20 89/38 (55) 94 04/30/18 06:15 72 20 84/42 (56) 94 04/30/18 06:00 71 19 86/35 (52) 97 04/30/18 05:45 70 21 87/45 (59) 98 04/30/18 05:30 78 23 111/52 (71) 98 04/30/18 05:17 70 19 83/29 (47) 97 04/30/18 05:15 68 19 96 04/30/18 05:00 70 18 93/31 (51) 95 04/30/18 04:45 74 16 96/39 (58) 98 04/30/18 04:30 87 21 100/42 (61) 95 04/30/18 04:15 81 20 100/36 (57) 86 04/30/18 04:00 Room Air 04/30/18 04:00 97.9 71 20 95/36 (55) 96 04/30/18 04:00 70 04/30/18 03:50 69 19 94/41 (58) 95 04/30/18 03:30 69 19 99/36 (57) 95 04/30/18 03:00 70 19 96/36 (56) 98 04/30/18 02:30 72 21 103/38 (59) 94 04/30/18 02:00 69 19 109/34 (59) 96 04/30/18 02:00 103/38 04/30/18 01:30 73 21 94/42 (59) 96 04/30/18 01:00 69 20 95/39 (57) 94 04/30/18 01:00 94/42 04/30/18 00:30 69 19 95/40 (58) 93 04/30/18 00:00 97/39 04/30/18 00:00 81 04/30/18 00:00 Room Air 04/30/18 00:00 98.0 75 21 108/39 (62) 96 04/29/18 23:30 71 22 87/37 (54) 94 04/29/18 23:00 73 18 96/45 (62) 94 04/29/18 23:00 87/37 04/29/18 22:30 70 21 96/45 (62) 95 04/29/18 22:00 74 17 94/37 (56) 93 04/29/18 22:00 96/45 04/29/18 21:30 75 21 93/48 (63) 93 04/29/18 21:07 78 22 90/39 (56) 95 04/29/18 21:00 90/39 04/29/18 21:00 80 23 70/51 (57) 95 04/29/18 20:30 83 21 102/49 (66) 93 04/29/18 20:00 97.5 79 22 97/35 (55) 98 04/29/18 20:00 78 04/29/18 20:00 102/49 04/29/18 20:00 Room Air 04/29/18 19:33 Nasal Cannula 2.0 28 04/29/18 19:33 97 Nasal Cannula 2.0 28 04/29/18 19:30 73 20 92/42 (59) 100 04/29/18 19:00 83 22 91/31 (51) 100 04/29/18 19:00 92/42 04/29/18 18:30 76 22 103/33 (56) 100 04/29/18 18:00 66 26 91/36 (54) 98 04/29/18 18:00 103/33 04/29/18 17:30 74 26 79/28 (45) 96 04/29/18 17:00 103/42 04/29/18 17:00 92 26 103/42 (62) 96 04/29/18 16:30 92 24 104/40 (61) 98 04/29/18 16:00 Room Air 04/29/18 16:00 104/54 04/29/18 16:00 76 04/29/18 16:00 97.8 76 20 103/37 (59) 99 04/29/18 15:30 93 19 90/32 (51) 93 Height (Feet): 5 Height (Inches): 6.00 Weight (Pounds): 206 General Appearance: no acute distress HEENT: normocephalic, atraumatic, anicteric, mucous membranes moist Respiratory/Chest: crackles/rales - few , rhonchi - bilaterally - few, other - mostly clear bilateral Cardiovascular: normal rate, regular rhythm, no gallop/murmur, no JVD Abdomen: normal bowel sounds, soft, non tender, no organomegaly, non distended Genitourinary: other - no mckinney Extremities: no cyanosis Skin: no rash Neurologic/Psychiatric: 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 Follow-up after appropriate treatment recommended to ensure resolution. * Patchy opacities in the right upper lobe are also likely infectious in etiology. These obscure the previously described lung nodule. Attention to this area on follow-up recommended. * Prominent hilar and mediastinal lymph nodes, possibly reactive in etiology. * Small bilateral pleural effusions. * Large hiatal hernia * Dialysis catheter tip in the right atrium. Evidence of central venous occlusion with multiple collateral veins noted in the mediastinum. * Nonspecific calcifications in the bilateral breasts are correlation with most recent mammogram recommended. If none performed recently, then recommend follow- up screening mammogram. * Findings suggestive of renal osteodystrophy Chest x-ray - 04/14 - Findings: Heart size and mediastinal contours stable. Femoral approach dialysis catheter is again noted. Multiple surgical clips noted in the bilateral axilla. Portions of a stents again visualized in the right axilla. Multiple surgical clips noted in the right arm. Clerk Funeral Detail opacities in the left midlung peripherally. No evidence of pneumothorax. There is patchy opacity at the right base. Osseous structures stable. Calcifications in the right breast noted. Impression: Left-sided airspace opacities most concerning for pneumonia. There is slight interval increased density compared to prior exam which may be technical. 04/16/18 - chest x-ray - IMPRESSION: 1. Bilateral airspace opacities, most confluent in the left midlung field. Could be from consolidation/pneumonia. There is a broad differential. Follow to ensure resolution and exclude other mimics. 2. Suspect bilateral pleural effusions. 3. Vascular congestion. 04/20/18: Comparison: 04/16/2018 A single view chest radiograph was obtained. Findings: Interstitial edema again suspected mild in degree, slightly improved from the prior study. Heart size is stable. Large bore catheter projected over the right atrium entering from the IVC. Pleural-based density lateral aspect of the left lung again noted. Extensive surgical clips in the thoracic inlet and left axillary region noted. IMPRESSION: Some improvement in the initial edema. Other findings stable Chest x-ray - 04/23/18 - COMPARISON: Chest x-ray dated 04/19/18 FINDINGS: Single frontal view demonstrates a normal cardiomediastinal silhouette. Surgical clips in the neck base. Status post left axillary dissection. Central venous catheter terminating in the right atrium, may be extending from a femoral approach, grossly unchanged. Stable patchy opacity in the left mid lung zone. Increasing patchy opacity in bilateral lower lung zones, right greater the left. The visualized osseous structures are within normal limits. IMPRESSION: 1. Stable patchy opacity in the left mid lung zone. Increasing patchy opacity in bilateral lower lung zones, right greater the left. 2. Stable lines and postoperative findings as outlined above. Chest x-ray - 04/26/18 - Interstitial edema has improved significantly since over the last few days. There is a mass versus infiltrate in the left midlung that persists. There is extensive surgical clips both axilla. Vascular stent right upper arm noted. Heart size is normal. IMPRESSION: Interval improvement in CHF. Mass versus infiltrate in the left midlung Chest x-ray - 04/27/18 - Comparison: 04/26/2018 Findings: Again demonstrated is lateral pleural thickening and a peripheral polygonal dense parenchymal opacity, the latter appearing slightly larger than on the previous study. There is some hazy opacity in the right upper lung which is new since the prior study. Mild generalized interstitial prominence is again demonstrated. Right arm stent, bilateral axillary surgical clips are again noted. Femoral approach dialysis catheter is again noted, tip in the high right atrium. Impression: Increased size of left lateral pulmonary parenchymal opacity. This reflects dense consolidation demonstrated on prior radiographs and CT scan, perhaps slightly worse than on the previous study. Persistent lateral pleural thickening versus fluid. Possible hazy infiltrate in the right upper lobe Other stable findings as described Microbiology Date/Time Source Procedure Growth Status 04/24/18 15:15 Blood Blood Culture - Final NO GROWTH AFTER 5 DAYS Complete 04/21/18 04:00 Sputum Expectorated Gram Stain - Final Complete 04/21/18 04:00 Sputum Expectorated Sputum Culture - Final NORMAL UPPER RESPIRATORY ESTEPHANIE AT 48 ... Complete 04/19/18 02:00 Stool Stool Culture - Final NO SALMONELLA,SHIGELLA OR CAMPYLOBACT... Complete 04/12/18 12:10 Rectum - Final NO CARBAPENEM-RESISTANT ENTEROBACTERI... Complete Laboratory Tests Test 04/30/18 04:30 White Blood Count 5.7 K/UL (4.8-10.8) Red Blood Count 2.45 M/UL (4.20-5.40) L Hemoglobin 7.4 G/DL (12.0-16.0) L Hematocrit 22.5 % (37.0-47.0) L Mean Corpuscular Volume 92 FL (80-99) Mean Corpuscular Hemoglobin 30.1 PG (27.0-31.0) Mean Corpuscular Hemoglobin Concent 32.8 G/DL (32.0-36.0) Red Cell Distribution Width 14.4 % (11.6-14.8) Platelet Count 152 K/UL (150-450) Mean Platelet Volume 8.9 FL (6.5-10.1) Neutrophils (%) (Auto) % (45.0-75.0) Lymphocytes (%) (Auto) % (20.0-45.0) Monocytes (%) (Auto) % (1.0-10.0) Eosinophils (%) (Auto) % (0.0-3.0) Basophils (%) (Auto) % (0.0-2.0) Differential Total Cells Counted 100 Neutrophils % (Manual) 75 % (45-75) Lymphocytes % (Manual) 12 % (20-45) L Monocytes % (Manual) 13 % (1-10) H Eosinophils % (Manual) 0 % (0-3) Basophils % (Manual) 0 % (0-2) Band Neutrophils 0 % (0-8) Platelet Estimate Adequate Platelet Morphology Normal Red Blood Cell Morphology Normal Sodium Level 133 MMOL/L (136-145) L Potassium Level 3.9 MMOL/L (3.5-5.1) Chloride Level 93 MMOL/L (98-107) L Carbon Dioxide Level 28 MMOL/L (21-32) Anion Gap 13 mmol/L (5-15) Blood Urea Nitrogen 38 mg/dL (7-18) H Creatinine 8.2 MG/DL (0.55-1.30) H Estimat Glomerular Filtration Rate 6.2 mL/min (>60) Glucose Level 80 MG/DL (74-106) Calcium Level 9.4 MG/DL (8.5-10.1) Phosphorus Level 4.6 MG/DL (2.5-4.9) Magnesium Level 1.8 MG/DL (1.8-2.4) Total Bilirubin 0.7 MG/DL (0.2-1.0) Aspartate Amino Transf (AST/SGOT) 18 U/L (15-37) Alanine Aminotransferase (ALT/SGPT) 25 U/L (12-78) Alkaline Phosphatase 421 U/L (46-116) H C-Reactive Protein, Quantitative > 70.0 mg/dL (0.00-0.90) H Pro-B-Type Natriuretic Peptide 3653 pg/mL (0-125) H Total Protein 6.8 G/DL (6.4-8.2) Albumin 2.4 G/DL (3.4-5.0) L Globulin 4.4 g/dL Albumin/Globulin Ratio 0.5 (1.0-2.7) L Current Medications Medications (Trade) Dose Ordered Sig/Marcos Route PRN Reason Start Time Stop Time Status Last Admin Dose Admin Acetaminophen (Tylenol) 650 mg Q6H PRN ORAL Mild Pain/Temp > 100.5 04/12/18 17:45 05/12/18 17:44 04/26/18 05:00 Albumin Human 100 ml @ 100 mls/hr QOD PRN IV with HD 04/30/18 09:00 05/30/18 08:59 04/30/18 11:07 Aspirin (ASA) 81 mg DAILY ORAL 04/17/18 09:00 05/17/18 08:59 04/30/18 08:41 Bisacodyl (Dulcolax) 5 mg BID ORAL 04/21/18 19:00 05/21/18 18:59 04/30/18 08:48 Chlorhexidine Gluconate (Nivia-Hex 2%) 1 applic DAILY@2000 TOPIC 04/13/18 20:00 05/13/18 19:59 04/29/18 20:29 Citalopram Hydrobromide (celeXA) 20 mg DAILY ORAL 04/25/18 12:00 05/25/18 11:59 04/30/18 08:40 Dopamine HCl/ Dextrose 250 ml @ 0 mls/hr Q24H IV 04/18/18 02:00 05/18/18 01:59 04/29/18 15:07 Guaifenesin (Robitussin) 300 mg Q6H PRN ORAL For Cough 04/14/18 17:00 05/14/18 16:59 04/29/18 20:35 Heparin Sodium (Porcine) (Heparin 5000 units/ml) 5,000 units EVERY 12 HOURS SUBQ 04/12/18 21:00 05/12/18 20:59 04/30/18 08:46 Hydromorphone HCl (Dilaudid) 1 mg Q4H PRN IVP For Pain 04/25/18 11:45 05/02/18 11:44 04/28/18 18:17 Loperamide HCl (Imodium) 2 mg Q4H PRN ORAL Diarrhea 04/25/18 18:15 05/25/18 18:14 04/25/18 18:16 Lorazepam (Ativan) 2 mg Q6H PRN ORAL For Anxiety 04/25/18 11:15 05/02/18 11:14 Metoclopramide HCl (Reglan) 5 mg BEFORE MEALS ORAL 04/28/18 11:30 05/28/18 11:29 04/30/18 11:07 Metoclopramide HCl (Reglan) 10 mg Q8H PRN IVP Nausea & Vomiting 04/28/18 09:45 05/28/18 09:44 Midodrine (Pro-Amatine) 10 mg Q8HR ORAL 04/19/18 14:00 05/19/18 13:59 04/30/18 13:13 Mirtazapine (Remeron) 7.5 mg BEDTIME ORAL 04/25/18 21:00 05/25/18 20:59 04/29/18 20:29 Pantoprazole (Protonix) 40 mg BID ORAL 04/25/18 18:00 05/12/18 17:59 04/30/18 08:42 Polyethylene Glycol (Miralax) 17 gm BEDTIME ORAL 04/21/18 21:00 05/21/18 20:59 04/26/18 21:21 Sevelamer Carbonate (Renvela) 2,400 mg THREE TIMES A DAY ORAL 04/23/18 13:00 05/13/18 08:59 04/30/18 08:40 Edgardo Mcbride MD Apr 30, 2018 15:23
--- NOTE | 2018-04-30 15:25 | NUR ---
NURSE NOTES: Seen by Dr Baltazar will follow up with new orders.
--- NOTE | 2018-04-30 16:02 | NUR ---
NURSE NOTES: Asleep, able to self repositioned.Will continue to monitor.
--- NOTE | 2018-04-30 18:31 | NUR ---
NURSE NOTES: ADLS DONE, KEPT CLEAN AND DRY,CONSUMED 50% AT DINNER. FAMILY VISITOR AT BEDSIDE.KEPT ON CLOSE MONITORING.
--- NOTE | 2018-04-30 19:25 | NUR ---
NURSE NOTES: Received report from WILLI Chicas. Patient in bed awake,alert able to verbalize needs known to staff,watching TV. Denies any pain or discomfort. Skin warm and dry to touch. No SOB oxygen saturation Room air 97%. RT femoral Perma cath double lumen intact TKO. Off Dopamine. Instructed patient to use call light for assistance. Bed alarm on. Bed locked and in low position. with Bedside commode. Fall precautions in place. Will continue plan of care.
[2018-04-30] MEDS: Miralax 17gm pkt ORAL SCH (20:05)
[2018-04-30] MEDS: Dyna-Hex 2% Top Sol 2oz TOPIC SCH (20:15)
--- NOTE | 2018-04-30 21:00 | NUR ---
NURSE NOTES: Patient complained of N/V HOB elevated, Reglan 2ML IVP given effective. Will continue plan of care.
--- NOTE | 2018-04-30 23:00 | NUR ---
NURSE NOTES: Patient in bed sleeping comfortably. no moaning no facial grimaces. BP 83/36 HR 76. Call light within easy reach. No N/V. Will continue plan of care.
--- NOTE | 2018-04-30 23:34 | General Progress Note ---
Assessment/Plan Problem List: (1) Anxiety ICD Codes: F41.9 - Anxiety disorder, unspecified SNOMED: 25422028 (2) Panic attack ICD Codes: F41.0 - Panic disorder [episodic paroxysmal anxiety] SNOMED: 937506469 Assessment/Plan cont current meds provided ro/st Subjective Neurologic/Psychiatric: Reports: anxiety, depressed, emotional problems Allergies: Coded Allergies: CEFAZOLIN (Verified Allergy, Unknown, 10/02/10) CIPROFLOXACIN (Verified Allergy, Unknown, 10/02/10) GENTAMICIN (Verified Allergy, Unknown, 10/02/10) KETAMINE (Verified Allergy, Unknown, 03/29/18) LEVOFLOXACIN (Verified Allergy, Unknown, 10/02/10) PENICILLINS (Verified Allergy, Unknown, ITCH, 10/02/10) Uncoded Allergies: CONTRAST MEDIA (Adverse Reaction, Mild, MILD ITCHING AFTER CONTRAST MEDIA, 04/30/17) Objective Last 24 Hour Vital Signs Date Time Temp Pulse Resp B/P (MAP) Pulse Ox O2 Delivery O2 Flow Rate FiO2 04/30/18 22:00 74 20 87/27 (47) 100 04/30/18 21:20 75 21 81/31 (48) 100 04/30/18 21:00 79 21 82/28 (46) 100 04/30/18 20:40 78 12 78/31 (47) 100 04/30/18 20:30 85 26 96 04/30/18 20:25 83 18 82/35 (51) 100 04/30/18 20:22 91 20 74/38 (50) 85 04/30/18 20:00 98.0 94 24 85/42 (56) 83 04/30/18 20:00 Room Air 04/30/18 20:00 81 04/30/18 19:40 90 22 89/43 (58) 04/30/18 19:30 95 20 04/30/18 19:20 87 19 88/43 (58) 04/30/18 19:00 97 27 82/44 (57) 90 04/30/18 18:00 74 18 90/36 (54) 100 04/30/18 17:00 74 18 90/36 (54) 100 04/30/18 16:00 76 04/30/18 16:00 Room Air 04/30/18 16:00 98.0 79 22 94/42 (59) 93 04/30/18 15:00 86 25 99/35 (56) 93 04/30/18 14:24 Room Air 04/30/18 14:22 Room Air 04/30/18 14:00 84 25 82/35 (51) 93 04/30/18 13:00 97.8 80 22 81/40 (54) 96 04/30/18 12:00 92 04/30/18 12:00 Room Air 04/30/18 12:00 83 25 92/43 (59) 93 04/30/18 11:00 89 21 87/46 (60) 95 04/30/18 10:00 99 21 93/37 (55) 93 04/30/18 09:00 93 23 92/39 (56) 95 04/30/18 08:00 97.8 78 22 110/43 (65) 99 04/30/18 08:00 75 04/30/18 08:00 Room Air 04/30/18 07:11 Nasal Cannula 2.0 28 04/30/18 07:11 96 Nasal Cannula 2.0 28 04/30/18 07:00 70 23 92/45 (61) 97 04/30/18 06:30 72 20 89/38 (55) 94 04/30/18 06:15 72 20 84/42 (56) 94 04/30/18 06:00 71 19 86/35 (52) 97 04/30/18 05:45 70 21 87/45 (59) 98 04/30/18 05:30 78 23 111/52 (71) 98 04/30/18 05:17 70 19 83/29 (47) 97 04/30/18 05:15 68 19 96 04/30/18 05:00 70 18 93/31 (51) 95 04/30/18 04:45 74 16 96/39 (58) 98 04/30/18 04:30 87 21 100/42 (61) 95 04/30/18 04:15 81 20 100/36 (57) 86 04/30/18 04:00 Room Air 04/30/18 04:00 97.9 71 20 95/36 (55) 96 04/30/18 04:00 70 04/30/18 03:50 69 19 94/41 (58) 95 04/30/18 03:30 69 19 99/36 (57) 95 04/30/18 03:00 70 19 96/36 (56) 98 04/30/18 02:30 72 21 103/38 (59) 94 04/30/18 02:00 69 19 109/34 (59) 96 04/30/18 02:00 103/38 04/30/18 01:30 73 21 94/42 (59) 96 04/30/18 01:00 69 20 95/39 (57) 94 04/30/18 01:00 94/42 04/30/18 00:30 69 19 95/40 (58) 93 04/30/18 00:00 97/39 04/30/18 00:00 81 04/30/18 00:00 Room Air 04/30/18 00:00 98.0 75 21 108/39 (62) 96 Intake and Output 04/29/18 04/30/18 18:59 06:59 Intake Total 434.996 ml 119.246 ml Output Total 0 ml 0 ml Balance 434.996 ml 119.246 ml Intake Oral 110 ml 60 ml IV Total 324.996 ml 59.246 ml Output Urine Total 0 ml 0 ml Laboratory Tests 04/30/18 04:30: White Blood Count 5.7, Red Blood Count 2.45L, Hemoglobin 7.4L, Hematocrit 22.5L , Mean Corpuscular Volume 92, Mean Corpuscular Hemoglobin 30.1, Mean Corpuscular Hemoglobin Concent 32.8, Red Cell Distribution Width 14.4, Platelet Count 152, Mean Platelet Volume 8.9, Neutrophils (%) (Auto) , Lymphocytes (%) ( Auto) , Monocytes (%) (Auto) , Eosinophils (%) (Auto) , Basophils (%) (Auto) , Differential Total Cells Counted 100, Neutrophils % (Manual) 75, Lymphocytes % ( Manual) 12L, Monocytes % (Manual) 13H, Eosinophils % (Manual) 0, Basophils % ( Manual) 0, Band Neutrophils 0, Platelet Estimate Adequate, Platelet Morphology Normal, Red Blood Cell Morphology Normal, Sodium Level 133L, Potassium Level 3.9 , Chloride Level 93L, Carbon Dioxide Level 28, Anion Gap 13, Blood Urea Nitrogen 38H, Creatinine 8.2H, Estimat Glomerular Filtration Rate 6.2, Glucose Level 80, Calcium Level 9.4, Phosphorus Level 4.6, Magnesium Level 1.8, Total Bilirubin 0.7, Aspartate Amino Transf (AST/SGOT) 18, Alanine Aminotransferase ( ALT/SGPT) 25, Alkaline Phosphatase 421H, C-Reactive Protein, Quantitative > 70.0H, Pro-B-Type Natriuretic Peptide 3653H, Total Protein 6.8, Albumin 2.4L, Globulin 4.4, Albumin/Globulin Ratio 0.5L Height (Feet): 5 Height (Inches): 6.00 Weight (Pounds): 206 General Appearance: alert Neurologic: oriented x 3, responsive, depressed affect Edwin Brown MD Apr 30, 2018 23:34
[2018-05-01] VITALS (34 sets, daily range): BP systolic 66–99; BP diastolic 24–65
--- NOTE | 2018-05-01 01:00 | NUR ---
NURSE NOTES: Patient BP 72/29HR 76, recycle BP 82/34. No s/s of acute and cardiac distress. Call light within easy reach. No N/V. Will continue plan of care.
[2018-05-01] MEDS: DOPamine 400mg/250ml 250 ML IV SCH (02:00)
--- NOTE | 2018-05-01 03:00 | NUR ---
NURSE NOTES: Patient in bed sleeping comfortably. no moaning no facial grimaces. BP 85/27 HR 72. Call light within easy reach. No N/V. Will continue plan of care.
--- NOTE | 2018-05-01 05:00 | NUR ---
NURSE NOTES: Patient in bed sleeping comfortably. On oxygen 2L via N/C satting 100%. With Bedside commode.No s/s of acute distress noted. no moaning no facial grimaces. BP 96/30 HR 63. Call light within easy reach. No N/V. Will continue plan of care.
[2018-05-01 05:48] LABS: ANION GAP 8 mmol/L (5-15); BLOOD UREA NITROGEN 22 mg/dL (7-18); CALCIUM 9.1 MG/DL (8.5-10.1); CARBON DIOXIDE 33 MMOL/L (21-32); CHLORIDE 96 MMOL/L (98-107); CREATININE 5.7 MG/DL (0.55-1.30); POTASSIUM 3.3 MMOL/L (3.5-5.1); SODIUM 137 MMOL/L (136-145)
[2018-05-01] MEDS: Midodrine 10mg tab ORAL SCH ×3 (06:10→21:01)
[2018-05-01 06:13] LABS: HEMATOCRIT 21.8 % (37.0-47.0); MEAN CORPUSCULAR VOLUME 91 FL (80-99); PLATELET COUNT 157 K/UL (150-450); RED BLOOD COUNT 2.39 M/UL (4.20-5.40); RED CELL DISTRIBUTION WIDTH 14.5 % (11.6-14.8); WHITE BLOOD COUNT 4.6 K/UL (4.8-10.8)
--- NOTE | 2018-05-01 07:05 | NUR ---
HAND-OFF: Report given to Raffi ORTIZ RN. Patient Hgb is 7 explained the imporatnce v/s risk and benefits of blood transfusion per patient she wants to talk to Dr. Schmidt, per Nurse Aviva yesterday MD with blood transfusion order yesterday and MD will talk to patient today.
--- NOTE | 2018-05-01 07:30 | NUR ---
NURSE NOTES: Received patient and the change of shift from out going nurse Cherie RN. Awake, alert and verbally able to respond with care and able to follows simple command by own ability. A-V shunt intact on left upper arm and double lumens of perma catheter intact on right femoral. Anuric and head of bed in 30 degree. According to shift endorsement from night supervisor, patient refused blood transfusion and wants to speak with Dr. Schmidt regarding blood transfusion. Dr. Schmidt will speak to patient according to shift endorsement from night supervisor. Patient's current Hgb 7.0 and Hct 21.8. No c/o dizziness or s/s of acute distress at this moment.
[2018-05-01] MEDS: Aspirin Baby 81mg ORAL SCH (09:00)
[2018-05-01] MEDS: Heparin 5000 units/ml inj SUBQ SCH ×2 (09:00→21:00)
[2018-05-01] MEDS: Bisacodyl EC 5mg tab ORAL SCH ×3 (09:00→17:49)
[2018-05-01] MEDS: Citalopram Hydrobromide 10mg Tab ORAL SCH (09:01)
--- NOTE | 2018-05-01 09:07 | Diagnostic Imaging Report ---
EXAM: XR Chest, 1 View CLINICAL HISTORY: INFECT TECHNIQUE: Frontal view of the chest. COMPARISON: Chest x-rays dated 04/27/18 FINDINGS: Lungs: Persistent patchy opacities at the periphery of the left midlung and in the right lung base. No significant change in diffusely increased interstitial markings. Pleural space: Unremarkable. The costophrenic angles are sharp. No visible pneumothorax. Heart: Unremarkable. No cardiomegaly. Mediastinum: Unremarkable. Bones/joints: Unremarkable. IMPRESSION: 1. Persistent patchy opacities at the periphery of the left midlung and in the right lung base. 2. No significant change in diffuse the increased interstitial markings, likely representing interstitial edema versus interstitial pneumonitis.
--- NOTE | 2018-05-01 10:00 | NUR ---
NURSE NOTES: Asleep. HR 68, Resp 20, Oxygen saturation 99% and B/P 84/32. No s/s of acute distress.
--- NOTE | 2018-05-01 11:45 | NUR ---
NURSE NOTES: Dr. Schmidt was in the unit and talked regarding blood transfusion refusal by patient and patient wants to speak with Dr. Schmidt. Dr. Schmidt attempted to speak to patient. However, patient was sleeping and didn't respond to Dr. Schmidt at the moment and Dr. Schmidt was rounding and saw another patient. Dr. Schmidt said if patient refuse blood transfusion, that is fine and nothing we could do. Dr. Schmidt is aware of the patient's refusal of blood transfusion for Hgb 7.0.
--- NOTE | 2018-05-01 12:33 | Cardiac Electrophysiology PN ---
Assessment/Plan Assessment/Plan 1. Troponin leak due to renal failure. Levels low and flat. No chest pain. 2. Septic shock. Off Dopamine drip today. Continue midodrine 10 mg tid 3. Bradycardia. Resolved. Off dopamine better 4. Anterior T-wave inversion. No chest pain. EF 60% 5. End-stage renal disease, on hemodialysis, per Dr. Conner. 6. Diarrhea C. Diff was negative 7. Severe anemia. Refusing transfusion DW RN OK to transfer out of ICU Subjective Subjective Still off Dopamine in ICU. Had HD yesterday and had 2 liters removal. Alert in NAD. Refused transfusion Objective Last 24 Hour Vital Signs Date Time Temp Pulse Resp B/P (MAP) Pulse Ox O2 Delivery O2 Flow Rate FiO2 05/01/18 12:00 Room Air 05/01/18 12:00 68 05/01/18 12:00 98.1 68 28 72/24 (40) 94 05/01/18 11:00 66 20 70/25 (40) 100 05/01/18 10:00 66 22 84/32 (49) 99 05/01/18 09:00 66 17 79/30 (46) 99 05/01/18 08:01 96.4 67 20 77/24 (41) 100 05/01/18 08:00 69 05/01/18 08:00 Room Air 05/01/18 08:00 67 20 77/24 (41) 100 05/01/18 07:12 88 24 80/29 (46) 84 05/01/18 07:10 82 19 70/28 (42) 86 05/01/18 07:05 85 20 77/30 (46) 90 05/01/18 07:00 78 20 78/35 (49) 94 05/01/18 06:00 76 22 87/30 (49) 98 05/01/18 05:00 67 20 96/30 (52) 100 05/01/18 04:00 67 05/01/18 04:00 Room Air 05/01/18 04:00 97.7 72 21 84/34 (51) 100 05/01/18 03:09 69 22 85/27 (46) 100 05/01/18 03:00 70 21 79/28 (45) 100 05/01/18 02:02 68 21 77/29 (45) 100 05/01/18 02:00 88/36 05/01/18 01:00 72 19 88/36 (53) 100 05/01/18 00:00 97.9 74 19 83/36 (52) 100 05/01/18 00:00 Room Air 04/30/18 23:00 76 23 86/32 (50) 100 04/30/18 22:00 74 20 87/27 (47) 100 04/30/18 21:20 75 21 81/31 (48) 100 04/30/18 21:00 79 21 82/28 (46) 100 04/30/18 20:40 78 12 78/31 (47) 100 04/30/18 20:30 85 26 96 04/30/18 20:25 83 18 82/35 (51) 100 04/30/18 20:22 91 20 74/38 (50) 85 04/30/18 20:00 98.0 94 24 85/42 (56) 83 04/30/18 20:00 Room Air 04/30/18 20:00 81 04/30/18 19:40 90 22 89/43 (58) 04/30/18 19:30 95 20 04/30/18 19:20 87 19 88/43 (58) 04/30/18 19:00 97 27 82/44 (57) 90 04/30/18 18:00 74 18 90/36 (54) 100 04/30/18 17:00 74 18 90/36 (54) 100 04/30/18 16:00 76 04/30/18 16:00 Room Air 04/30/18 16:00 98.0 79 22 94/42 (59) 93 04/30/18 15:00 86 25 99/35 (56) 93 04/30/18 14:24 Room Air 04/30/18 14:22 Room Air 04/30/18 14:00 84 25 82/35 (51) 93 04/30/18 13:00 97.8 80 22 81/40 (54) 96 Intake and Output 04/30/18 05/01/18 19:00 07:00 Intake Total 170 ml 60 ml Output Total 2000 ml 0 ml Balance -1830 ml 60 ml Intake Oral 30 ml 60 ml IV Total 100 ml Other 40 ml Output Urine Total 0 ml 0 ml Hemodialysis UF 2000 ml # Bowel Movements 2 1 Laboratory Tests Test 05/01/18 04:00 White Blood Count 4.6 K/UL (4.8-10.8) L Red Blood Count 2.39 M/UL (4.20-5.40) L Hemoglobin 7.0 G/DL (12.0-16.0) L Hematocrit 21.8 % (37.0-47.0) L Mean Corpuscular Volume 91 FL (80-99) Mean Corpuscular Hemoglobin 29.4 PG (27.0-31.0) Mean Corpuscular Hemoglobin Concent 32.2 G/DL (32.0-36.0) Red Cell Distribution Width 14.5 % (11.6-14.8) Platelet Count 157 K/UL (150-450) Mean Platelet Volume 9.7 FL (6.5-10.1) Neutrophils (%) (Auto) % (45.0-75.0) Lymphocytes (%) (Auto) % (20.0-45.0) Monocytes (%) (Auto) % (1.0-10.0) Eosinophils (%) (Auto) % (0.0-3.0) Basophils (%) (Auto) % (0.0-2.0) Differential Total Cells Counted 100 Neutrophils % (Manual) 69 % (45-75) Lymphocytes % (Manual) 17 % (20-45) L Monocytes % (Manual) 12 % (1-10) H Eosinophils % (Manual) 2 % (0-3) Basophils % (Manual) 0 % (0-2) Band Neutrophils 0 % (0-8) Platelet Estimate Adequate Platelet Morphology Normal Hypochromasia 1+ Anisocytosis 1+ Sodium Level 137 MMOL/L (136-145) Potassium Level 3.3 MMOL/L (3.5-5.1) L Chloride Level 96 MMOL/L (98-107) L Carbon Dioxide Level 33 MMOL/L (21-32) H Anion Gap 8 mmol/L (5-15) Blood Urea Nitrogen 22 mg/dL (7-18) H Creatinine 5.7 MG/DL (0.55-1.30) H Estimat Glomerular Filtration Rate 9.3 mL/min (>60) Glucose Level 98 MG/DL (74-106) Calcium Level 9.1 MG/DL (8.5-10.1) Objective HEAD AND NECK: No JVD. LUNGS: Decreased breath sounds. CARDIOVASCULAR: Regular S1 and S2 no GRM ABDOMEN: Soft. EXTREMITIES: No edema Tc Liang MD May 01, 2018 12:32
--- NOTE | 2018-05-01 12:45 | NUR ---
NURSE NOTES: Patient was seen by Dr. Liang and received new order, ok to do downgrade. Dr. Liang is aware of the patient's refusal of blood transfusion. No s/s of acute distress. HR 66, resp 18, oxygen saturation 100%. B/P 83/50.
--- NOTE | 2018-05-01 13:00 | NUR ---
NURSE NOTES: 30% of lunch eaten and BM x 1 soft brownish and small amount.
--- NOTE | 2018-05-01 14:51 | Nephrology Progress Note ---
Assessment/Plan Problem List: (1) ESRD (end stage renal disease) on dialysis (2) Hypotension (3) Anemia of renal disease (4) Metabolic encephalopathy (5) Pneumonia Assessment ESRD on HD- HypoThyroidism- Periodic Hypotension- encephalopathic , metabolic- Plan off dopamine dialysis next 05/02 consider transfusion as needed Reglan for vomiting recheck serum cortisol level- noted add asa and isordil for rising Troponin add prn imodium for loose bm per orders midodrine per consultants antibiotics for pneumonia Subjective ROS Limited/Unobtainable: No Constitutional: Reports: malaise Objective Objective Last 24 Hour Vital Signs Date Time Temp Pulse Resp B/P (MAP) Pulse Ox O2 Delivery O2 Flow Rate FiO2 05/01/18 14:00 67 18 66/38 (47) 100 05/01/18 13:00 67 18 66/38 (47) 100 05/01/18 12:00 Room Air 05/01/18 12:00 68 05/01/18 12:00 98.1 68 28 72/24 (40) 94 05/01/18 11:00 66 20 70/25 (40) 100 05/01/18 10:00 66 22 84/32 (49) 99 05/01/18 09:00 66 17 79/30 (46) 99 05/01/18 08:01 96.4 67 20 77/24 (41) 100 05/01/18 08:00 69 05/01/18 08:00 Room Air 05/01/18 08:00 67 20 77/24 (41) 100 05/01/18 07:12 88 24 80/29 (46) 84 05/01/18 07:12 88 24 80/29 (46) 84 05/01/18 07:10 82 19 70/28 (42) 86 05/01/18 07:10 82 19 70/28 (42) 86 05/01/18 07:05 85 20 77/30 (46) 90 05/01/18 07:05 85 20 77/30 (46) 90 05/01/18 07:00 78 20 78/35 (49) 94 05/01/18 07:00 78 20 78/35 (49) 94 05/01/18 06:00 76 22 87/30 (49) 98 05/01/18 06:00 68 20 87/30 (49) 05/01/18 05:00 67 20 96/30 (52) 100 05/01/18 05:00 67 20 96/30 (52) 100 05/01/18 04:00 72 21 84/34 (51) 100 05/01/18 04:00 67 05/01/18 04:00 Room Air 05/01/18 04:00 97.7 72 21 84/34 (51) 100 05/01/18 03:09 69 22 85/27 (46) 100 05/01/18 03:09 69 22 85/27 (46) 100 05/01/18 03:00 70 21 79/28 (45) 100 05/01/18 03:00 70 21 79/28 (45) 100 05/01/18 02:02 68 21 77/29 (45) 100 05/01/18 02:02 68 21 77/29 (45) 100 05/01/18 02:00 88/36 05/01/18 02:00 69 21 100 05/01/18 01:00 72 19 88/36 (53) 100 05/01/18 01:00 72 19 88/36 (53) 100 05/01/18 00:00 97.9 74 19 83/36 (52) 100 05/01/18 00:00 Room Air 05/01/18 00:00 74 19 83/36 (52) 100 04/30/18 23:00 76 23 86/32 (50) 100 04/30/18 22:00 74 20 87/27 (47) 100 04/30/18 21:20 75 21 81/31 (48) 100 04/30/18 21:00 79 21 82/28 (46) 100 04/30/18 20:40 78 12 78/31 (47) 100 04/30/18 20:30 85 26 96 04/30/18 20:25 83 18 82/35 (51) 100 04/30/18 20:22 91 20 74/38 (50) 85 04/30/18 20:00 98.0 94 24 85/42 (56) 83 04/30/18 20:00 Room Air 04/30/18 20:00 81 04/30/18 19:40 90 22 89/43 (58) 04/30/18 19:30 95 20 04/30/18 19:20 87 19 88/43 (58) 04/30/18 19:00 97 27 82/44 (57) 90 04/30/18 18:00 74 18 90/36 (54) 100 04/30/18 17:00 74 18 90/36 (54) 100 04/30/18 16:00 76 04/30/18 16:00 Room Air 04/30/18 16:00 98.0 79 22 94/42 (59) 93 04/30/18 15:00 86 25 99/35 (56) 93 Intake and Output 04/30/18 05/01/18 19:00 07:00 Intake Total 170 ml 60 ml Output Total 2000 ml 0 ml Balance -1830 ml 60 ml Intake Oral 30 ml 60 ml IV Total 100 ml Other 40 ml Output Urine Total 0 ml 0 ml Hemodialysis UF 2000 ml # Bowel Movements 2 1 Laboratory Tests 05/01/18 04:00: White Blood Count 4.6L, Red Blood Count 2.39L, Hemoglobin 7.0L, Hematocrit 21.8L , Mean Corpuscular Volume 91, Mean Corpuscular Hemoglobin 29.4, Mean Corpuscular Hemoglobin Concent 32.2, Red Cell Distribution Width 14.5, Platelet Count 157, Mean Platelet Volume 9.7, Neutrophils (%) (Auto) , Lymphocytes (%) ( Auto) , Monocytes (%) (Auto) , Eosinophils (%) (Auto) , Basophils (%) (Auto) , Differential Total Cells Counted 100, Neutrophils % (Manual) 69, Lymphocytes % ( Manual) 17L, Monocytes % (Manual) 12H, Eosinophils % (Manual) 2, Basophils % ( Manual) 0, Band Neutrophils 0, Platelet Estimate Adequate, Platelet Morphology Normal, Hypochromasia 1+, Anisocytosis 1+, Sodium Level 137, Potassium Level 3.3L, Chloride Level 96L, Carbon Dioxide Level 33H, Anion Gap 8, Blood Urea Nitrogen 22H, Creatinine 5.7H, Estimat Glomerular Filtration Rate 9.3, Glucose Level 98, Calcium Level 9.1 Height (Feet): 5 Height (Inches): 6.00 Weight (Pounds): 206 General Appearance: no apparent distress Cardiovascular: normal rate Objective no change Fredrick Conner MD May 01, 2018 14:51
--- NOTE | 2018-05-01 15:49 | Internal Med Progress Note ---
Subjective Date of Service: May 01, 2018 Physician Name HarrellEdward calvillo Attending Physician Ash Henley MD Current Medications Medications (Trade) Dose Ordered Sig/Marcos Route PRN Reason Start Time Stop Time Status Last Admin Dose Admin Acetaminophen (Tylenol) 650 mg Q6H PRN ORAL Mild Pain/Temp > 100.5 04/12/18 17:45 05/12/18 17:44 04/26/18 05:00 Albumin Human 100 ml @ 100 mls/hr QOD PRN IV with HD 04/30/18 09:00 05/30/18 08:59 04/30/18 11:07 Aspirin (ASA) 81 mg DAILY ORAL 04/17/18 09:00 05/17/18 08:59 05/01/18 09:00 Bisacodyl (Dulcolax) 5 mg BID ORAL 04/21/18 19:00 05/21/18 18:59 05/01/18 09:00 Chlorhexidine Gluconate (Nivia-Hex 2%) 1 applic DAILY@2000 TOPIC 04/13/18 20:00 05/13/18 19:59 04/30/18 20:15 Citalopram Hydrobromide (celeXA) 20 mg DAILY ORAL 04/25/18 12:00 05/25/18 11:59 05/01/18 09:01 Dopamine HCl/ Dextrose 250 ml @ 0 mls/hr Q24H IV 04/18/18 02:00 05/18/18 01:59 04/29/18 15:07 Guaifenesin (Robitussin) 300 mg Q6H PRN ORAL For Cough 04/14/18 17:00 05/14/18 16:59 04/29/18 20:35 Heparin Sodium (Porcine) (Heparin 5000 units/ml) 5,000 units EVERY 12 HOURS SUBQ 04/12/18 21:00 05/12/18 20:59 04/30/18 08:46 Hydromorphone HCl (Dilaudid) 1 mg Q4H PRN IVP For Pain 04/25/18 11:45 05/02/18 11:44 04/28/18 18:17 Loperamide HCl (Imodium) 2 mg Q4H PRN ORAL Diarrhea 04/25/18 18:15 05/25/18 18:14 04/25/18 18:16 Lorazepam (Ativan) 2 mg Q6H PRN ORAL For Anxiety 04/25/18 11:15 05/02/18 11:14 Metoclopramide HCl (Reglan) 5 mg BEFORE MEALS ORAL 04/28/18 11:30 05/28/18 11:29 05/01/18 11:20 Metoclopramide HCl (Reglan) 10 mg Q8H PRN IVP Nausea & Vomiting 04/28/18 09:45 05/28/18 09:44 04/30/18 20:15 Midodrine (Pro-Amatine) 10 mg Q8HR ORAL 04/19/18 14:00 05/19/18 13:59 05/01/18 13:30 Mirtazapine (Remeron) 7.5 mg BEDTIME ORAL 04/25/18 21:00 05/25/18 20:59 04/30/18 20:15 Pantoprazole (Protonix) 40 mg BID ORAL 04/25/18 18:00 05/12/18 17:59 05/01/18 08:59 Polyethylene Glycol (Miralax) 17 gm BEDTIME ORAL 04/21/18 21:00 05/21/18 20:59 04/26/18 21:21 Sevelamer Carbonate (Renvela) 2,400 mg THREE TIMES A DAY ORAL 04/23/18 13:00 05/13/18 08:59 05/01/18 12:35 Allergies: Coded Allergies: CEFAZOLIN (Verified Allergy, Unknown, 10/02/10) CIPROFLOXACIN (Verified Allergy, Unknown, 10/02/10) GENTAMICIN (Verified Allergy, Unknown, 10/02/10) KETAMINE (Verified Allergy, Unknown, 03/29/18) LEVOFLOXACIN (Verified Allergy, Unknown, 10/02/10) PENICILLINS (Verified Allergy, Unknown, ITCH, 10/02/10) Uncoded Allergies: CONTRAST MEDIA (Adverse Reaction, Mild, MILD ITCHING AFTER CONTRAST MEDIA, 04/30/17) ROS Limited/Unobtainable: No Constitutional: Reports: no symptoms HEENT: Reports: no symptoms Cardiovascular: Reports: no symptoms Respiratory: Reports: no symptoms Gastrointestinal/Abdominal: Reports: no symptoms Genitourinary: Reports: no symptoms Neurologic/Psychiatric: Reports: no symptoms Subjective 53 YO F admitted with shortness of breath. Now pneumonia. Cover for Int Med- Dr Henley. ICU. Off dopamine. Objective Last Vital Signs Date Time Temp Pulse Resp B/P (MAP) Pulse Ox O2 Delivery O2 Flow Rate FiO2 05/01/18 15:00 69 18 83/32 (49) 100 05/01/18 12:00 Room Air 05/01/18 12:00 98.1 04/30/18 07:11 2.0 28 Laboratory Tests Test 05/01/18 04:00 White Blood Count 4.6 K/UL (4.8-10.8) L Red Blood Count 2.39 M/UL (4.20-5.40) L Hemoglobin 7.0 G/DL (12.0-16.0) L Hematocrit 21.8 % (37.0-47.0) L Mean Corpuscular Volume 91 FL (80-99) Mean Corpuscular Hemoglobin 29.4 PG (27.0-31.0) Mean Corpuscular Hemoglobin Concent 32.2 G/DL (32.0-36.0) Red Cell Distribution Width 14.5 % (11.6-14.8) Platelet Count 157 K/UL (150-450) Mean Platelet Volume 9.7 FL (6.5-10.1) Neutrophils (%) (Auto) % (45.0-75.0) Lymphocytes (%) (Auto) % (20.0-45.0) Monocytes (%) (Auto) % (1.0-10.0) Eosinophils (%) (Auto) % (0.0-3.0) Basophils (%) (Auto) % (0.0-2.0) Differential Total Cells Counted 100 Neutrophils % (Manual) 69 % (45-75) Lymphocytes % (Manual) 17 % (20-45) L Monocytes % (Manual) 12 % (1-10) H Eosinophils % (Manual) 2 % (0-3) Basophils % (Manual) 0 % (0-2) Band Neutrophils 0 % (0-8) Platelet Estimate Adequate Platelet Morphology Normal Hypochromasia 1+ Anisocytosis 1+ Sodium Level 137 MMOL/L (136-145) Potassium Level 3.3 MMOL/L (3.5-5.1) L Chloride Level 96 MMOL/L (98-107) L Carbon Dioxide Level 33 MMOL/L (21-32) H Anion Gap 8 mmol/L (5-15) Blood Urea Nitrogen 22 mg/dL (7-18) H Creatinine 5.7 MG/DL (0.55-1.30) H Estimat Glomerular Filtration Rate 9.3 mL/min (>60) Glucose Level 98 MG/DL (74-106) Calcium Level 9.1 MG/DL (8.5-10.1) Intake and Output 04/30/18 05/01/18 19:00 07:00 Intake Total 170 ml 60 ml Output Total 2000 ml 0 ml Balance -1830 ml 60 ml Intake Oral 30 ml 60 ml IV Total 100 ml Other 40 ml Output Urine Total 0 ml 0 ml Hemodialysis UF 2000 ml # Bowel Movements 2 1 Objective Objective GENERAL: Awake, responsive, alert HEAD AND NECK: Pupils equal and reactive to light. Extraocular movements intact. Neck was supple. No JVD. LUNGS: Fair air entry. Poor respiratory effort. No wheeze or rhonchi. Decreased air in the bases. HEART: S1 and S2. Distant heart sounds. No murmur. ABDOMEN: Soft, nondistended, and nontender. Morbidly obese. EXTREMITIES: No cyanosis, clubbing, or edema. Right femoral area PermCath as well as left upper extremity AV fistula, functional. NEUROLOGIC: Cranial nerves II through XII are grossly intact. The patient is moving all the extremities spontaneously. Gait was not assessed due to the patient's status. PSYCHIATRIC: Mood and affect are intact. Assessment/Plan Assessment/Plan Assessment/Plan Assessment/Plan 1. Sepsis, most likely secondary to left upper lobe and, to a lesser extent, medial right lower lobe most likely representing multifocal pneumonia. 2. Hypotension, possible septic shock. 3. Pancytopenia with severe thrombocytopenia resolving. 4. End-stage renal disease, on hemodialysis. 5. Altered mental status, most likely toxic metabolic encephalopathy as a result of infection as well as uremia. 6. Anemia of chronic kidney disease. 7. Morbid obesity. 8. Bradycardia. 9. Diarrhea 10. Abdominal pain. PLAN: In ICU. follow up laboratory and cultures. Dr. Fredrick Conner from Nephrology consult; Hemodialysis 04/30/18. Dr. Mcbride from ID consult. Discussed with the family member, brother at the bedside. Abx:Meropenem, doxycycline and vfend per ID Code status is Full Code. DVT prophylaxis: heparin subcutaneous. continue Dopamine Drip CT of chest noted. Cortisol level Pending. C. Diff neg. Send stool for repeat Continue dopamine See GI consult; KUB=no obstruction advance diet Edward Harrell MD May 01, 2018 15:49
--- NOTE | 2018-05-01 15:56 | Pulmonolgy Critical Care Note ---
Critical Care - Asmt/Plan Problems: (1) Septic shock (2) Pneumonia (3) Hypotension (4) ESRD (end stage renal disease) on dialysis (5) CHF (congestive heart failure) (6) Hypoparathyroidism Respiratory: monitor respiratory rate, adjust FIO2, CXR Cardiac: continue to monitor HR/BP Renal: F/U I&O Infectious Disease: check cultures, continue antibiotics Gastrointestinal: continue feedings/current rate Endocrine: monitor blood sugar, check HgA1C Hematologic: transfuse if hgb<8.5 Neurologic: PRN Ativan, PRN Morphine, keep patient comfortable Affect: PRN ativan Prophylaxis: Heparin Notes Reviewed: board attendant, cardio Discussed with: nurses, consultants, case aideer manager - Objective Last 24 Hour Vital Signs Date Time Temp Pulse Resp B/P (MAP) Pulse Ox O2 Delivery O2 Flow Rate FiO2 05/01/18 15:00 69 18 83/32 (49) 100 05/01/18 14:00 67 18 66/38 (47) 100 05/01/18 13:00 67 18 66/38 (47) 100 05/01/18 12:00 Room Air 05/01/18 12:00 68 05/01/18 12:00 98.1 68 28 72/24 (40) 94 05/01/18 11:00 66 20 70/25 (40) 100 05/01/18 10:00 66 22 84/32 (49) 99 05/01/18 09:00 66 17 79/30 (46) 99 05/01/18 08:01 96.4 67 20 77/24 (41) 100 05/01/18 08:00 69 05/01/18 08:00 Room Air 05/01/18 08:00 67 20 77/24 (41) 100 05/01/18 07:12 88 24 80/29 (46) 84 05/01/18 07:12 88 24 80/29 (46) 84 05/01/18 07:10 82 19 70/28 (42) 86 05/01/18 07:10 82 19 70/28 (42) 86 05/01/18 07:05 85 20 77/30 (46) 90 05/01/18 07:05 85 20 77/30 (46) 90 05/01/18 07:00 78 20 78/35 (49) 94 05/01/18 07:00 78 20 78/35 (49) 94 05/01/18 06:00 76 22 87/30 (49) 98 05/01/18 06:00 68 20 87/30 (49) 05/01/18 05:00 67 20 96/30 (52) 100 05/01/18 05:00 67 20 96/30 (52) 100 05/01/18 04:00 72 21 84/34 (51) 100 05/01/18 04:00 67 05/01/18 04:00 Room Air 05/01/18 04:00 97.7 72 21 84/34 (51) 100 05/01/18 03:09 69 22 85/27 (46) 100 05/01/18 03:09 69 22 85/27 (46) 100 05/01/18 03:00 70 21 79/28 (45) 100 05/01/18 03:00 70 21 79/28 (45) 100 05/01/18 02:02 68 21 77/29 (45) 100 05/01/18 02:02 68 21 77/29 (45) 100 05/01/18 02:00 88/36 05/01/18 02:00 69 21 100 05/01/18 01:00 72 19 88/36 (53) 100 05/01/18 01:00 72 19 88/36 (53) 100 05/01/18 00:00 97.9 74 19 83/36 (52) 100 05/01/18 00:00 Room Air 05/01/18 00:00 74 19 83/36 (52) 100 04/30/18 23:00 76 23 86/32 (50) 100 04/30/18 22:00 74 20 87/27 (47) 100 04/30/18 21:20 75 21 81/31 (48) 100 04/30/18 21:00 79 21 82/28 (46) 100 04/30/18 20:40 78 12 78/31 (47) 100 04/30/18 20:30 85 26 96 04/30/18 20:25 83 18 82/35 (51) 100 04/30/18 20:22 91 20 74/38 (50) 85 04/30/18 20:00 98.0 94 24 85/42 (56) 83 04/30/18 20:00 Room Air 04/30/18 20:00 81 04/30/18 19:40 90 22 89/43 (58) 04/30/18 19:30 95 20 04/30/18 19:20 87 19 88/43 (58) 04/30/18 19:00 97 27 82/44 (57) 90 04/30/18 18:00 74 18 90/36 (54) 100 04/30/18 17:00 74 18 90/36 (54) 100 04/30/18 16:00 76 04/30/18 16:00 Room Air 04/30/18 16:00 98.0 79 22 94/42 (59) 93 Status: awake Condition: critical, improving HEENT: atraumatic Neck: full ROM Lungs: chest wall tender Heart: HR/BP unstable Abdomen: soft, non-tender, feeding tube Extremities: edema Decubiti: location Critical Care - Subjective ROS Limited/Unobtainable: No Condition: improving EKG Rhythm: Sinus Rhythm FI02: 28 Sputum Amount: None I&O: Intake and Output 04/30/18 05/01/18 19:00 07:00 Intake Total 170 ml 60 ml Output Total 2000 ml 0 ml Balance -1830 ml 60 ml Intake Oral 30 ml 60 ml IV Total 100 ml Other 40 ml Output Urine Total 0 ml 0 ml Hemodialysis UF 2000 ml # Bowel Movements 2 1 Cuate Schmidt MD May 01, 2018 15:56
--- NOTE | 2018-05-01 18:03 | General Progress Note ---
Assessment/Plan Assessment/Plan Assessment: (1) Epigastric abdominal pain ICD Codes: R10.13 - Epigastric pain SNOMED: 88564985 (2) Anxiety ICD Codes: F41.9 - Anxiety disorder, unspecified SNOMED: 88922809 (3) Constipation ICD Codes: K59.00 - Constipation, unspecified SNOMED: 94196234 (4) Anemia of renal disease ICD Codes: D63.1 - Anemia in chronic kidney disease SNOMED: 171900773, 349282369 Status: unchanged Assessment/Plan Unknown history of abdominal surgery KUB noted mainly unremarkable cdiff, stool studies both negative OB stool negative on renal diet protonix daily zofran prn fu labs bowel regimen pain mgmt PT evaluation Subjective Allergies: Coded Allergies: CEFAZOLIN (Verified Allergy, Unknown, 10/02/10) CIPROFLOXACIN (Verified Allergy, Unknown, 10/02/10) GENTAMICIN (Verified Allergy, Unknown, 10/02/10) KETAMINE (Verified Allergy, Unknown, 03/29/18) LEVOFLOXACIN (Verified Allergy, Unknown, 10/02/10) PENICILLINS (Verified Allergy, Unknown, ITCH, 10/02/10) Uncoded Allergies: CONTRAST MEDIA (Adverse Reaction, Mild, MILD ITCHING AFTER CONTRAST MEDIA, 04/30/17) Subjective Feels OK no abdominal complaints Objective Last 24 Hour Vital Signs Date Time Temp Pulse Resp B/P (MAP) Pulse Ox O2 Delivery O2 Flow Rate FiO2 05/01/18 17:00 74 18 99/39 (59) 95 05/01/18 16:00 73 05/01/18 16:00 98.6 67 19 82/31 (48) 94 05/01/18 16:00 Room Air 05/01/18 15:00 69 18 83/32 (49) 100 05/01/18 14:00 67 18 66/38 (47) 100 05/01/18 13:00 67 18 66/38 (47) 100 05/01/18 12:00 Room Air 05/01/18 12:00 68 05/01/18 12:00 98.1 68 28 72/24 (40) 94 05/01/18 11:00 66 20 70/25 (40) 100 05/01/18 10:00 66 22 84/32 (49) 99 05/01/18 09:00 66 17 79/30 (46) 99 05/01/18 08:01 96.4 67 20 77/24 (41) 100 05/01/18 08:00 69 05/01/18 08:00 Room Air 05/01/18 08:00 67 20 77/24 (41) 100 05/01/18 07:12 88 24 80/29 (46) 84 05/01/18 07:12 88 24 80/29 (46) 84 05/01/18 07:10 82 19 70/28 (42) 86 05/01/18 07:10 82 19 70/28 (42) 86 05/01/18 07:05 85 20 77/30 (46) 90 05/01/18 07:05 85 20 77/30 (46) 90 05/01/18 07:00 78 20 78/35 (49) 94 05/01/18 07:00 78 20 78/35 (49) 94 05/01/18 06:00 76 22 87/30 (49) 98 05/01/18 06:00 68 20 87/30 (49) 05/01/18 05:00 67 20 96/30 (52) 100 05/01/18 05:00 67 20 96/30 (52) 100 05/01/18 04:00 72 21 84/34 (51) 100 05/01/18 04:00 67 05/01/18 04:00 Room Air 05/01/18 04:00 97.7 72 21 84/34 (51) 100 05/01/18 03:09 69 22 85/27 (46) 100 05/01/18 03:09 69 22 85/27 (46) 100 05/01/18 03:00 70 21 79/28 (45) 100 05/01/18 03:00 70 21 79/28 (45) 100 05/01/18 02:02 68 21 77/29 (45) 100 05/01/18 02:02 68 21 77/29 (45) 100 05/01/18 02:00 88/36 05/01/18 02:00 69 21 100 05/01/18 01:00 72 19 88/36 (53) 100 05/01/18 01:00 72 19 88/36 (53) 100 05/01/18 00:00 97.9 74 19 83/36 (52) 100 05/01/18 00:00 Room Air 05/01/18 00:00 74 19 83/36 (52) 100 04/30/18 23:00 76 23 86/32 (50) 100 04/30/18 22:00 74 20 87/27 (47) 100 04/30/18 21:20 75 21 81/31 (48) 100 04/30/18 21:00 79 21 82/28 (46) 100 04/30/18 20:40 78 12 78/31 (47) 100 04/30/18 20:30 85 26 96 04/30/18 20:25 83 18 82/35 (51) 100 04/30/18 20:22 91 20 74/38 (50) 85 04/30/18 20:00 98.0 94 24 85/42 (56) 83 04/30/18 20:00 Room Air 04/30/18 20:00 81 04/30/18 19:40 90 22 89/43 (58) 04/30/18 19:30 95 20 04/30/18 19:20 87 19 88/43 (58) 04/30/18 19:00 97 27 82/44 (57) 90 Intake and Output 04/30/18 05/01/18 19:00 07:00 Intake Total 170 ml 60 ml Output Total 2000 ml 0 ml Balance -1830 ml 60 ml Intake Oral 30 ml 60 ml IV Total 100 ml Other 40 ml Output Urine Total 0 ml 0 ml Hemodialysis UF 2000 ml # Bowel Movements 2 1 Laboratory Tests 05/01/18 04:00: White Blood Count 4.6L, Red Blood Count 2.39L, Hemoglobin 7.0L, Hematocrit 21.8L , Mean Corpuscular Volume 91, Mean Corpuscular Hemoglobin 29.4, Mean Corpuscular Hemoglobin Concent 32.2, Red Cell Distribution Width 14.5, Platelet Count 157, Mean Platelet Volume 9.7, Neutrophils (%) (Auto) , Lymphocytes (%) ( Auto) , Monocytes (%) (Auto) , Eosinophils (%) (Auto) , Basophils (%) (Auto) , Differential Total Cells Counted 100, Neutrophils % (Manual) 69, Lymphocytes % ( Manual) 17L, Monocytes % (Manual) 12H, Eosinophils % (Manual) 2, Basophils % ( Manual) 0, Band Neutrophils 0, Platelet Estimate Adequate, Platelet Morphology Normal, Hypochromasia 1+, Anisocytosis 1+, Sodium Level 137, Potassium Level 3.3L, Chloride Level 96L, Carbon Dioxide Level 33H, Anion Gap 8, Blood Urea Nitrogen 22H, Creatinine 5.7H, Estimat Glomerular Filtration Rate 9.3, Glucose Level 98, Calcium Level 9.1 Height (Feet): 5 Height (Inches): 6.00 Weight (Pounds): 206 Objective WDWN NCAT supple CTA RRR abd soft, mild diffuse abd TTP (+) edema non focal Kevin Kramer MD May 01, 2018 18:03
--- NOTE | 2018-05-01 19:30 | NUR ---
HAND-OFF: Report given to Cherie.
--- NOTE | 2018-05-01 19:35 | NUR ---
NURSE NOTES: Received report from WILLI Nugent. Patient in bed awake,alert able to verbalize needs known to staff,watching TV. Denies any pain or discomfort. Skin warm and dry to touch. No SOB oxygen saturation Room air 95 %. RT femoral Perma cath double lumen intact TKO. Off Dopamine. Hgb 7.[address] Schmidt [address] Dr. Liang aware that patient is refusing blood transfusion encouraged patient to verbalize needs,fears and feelings to staff, explained the importance v/s risk and benefits still refuse. Instructed patient to use call light for assistance. Bed alarm on. Bed locked and in low position. with Bedside commode. Fall precautions in place. Will continue plan of care.
--- NOTE | 2018-05-01 20:02 | NUR ---
NURSE NOTES: Called [facility] dialysis spoke with Anirudh regarding the HD order for 05/02/18. Charge nurse aware.
[2018-05-01] MEDS: Dyna-Hex 2% Top Sol 2oz TOPIC SCH (20:59)
[2018-05-01] MEDS: Miralax 17gm pkt ORAL SCH (21:00)
--- NOTE | 2018-05-01 21:42 | General Progress Note ---
Assessment/Plan Problem List: (1) Anxiety ICD Codes: F41.9 - Anxiety disorder, unspecified SNOMED: 38815461 (2) Panic attack ICD Codes: F41.0 - Panic disorder [episodic paroxysmal anxiety] SNOMED: 052875188 Status: stable, progressing Assessment/Plan cont current meds provided ro/st Subjective Neurologic/Psychiatric: Reports: anxiety, depressed, emotional problems Allergies: Coded Allergies: CEFAZOLIN (Verified Allergy, Unknown, 10/02/10) CIPROFLOXACIN (Verified Allergy, Unknown, 10/02/10) GENTAMICIN (Verified Allergy, Unknown, 10/02/10) KETAMINE (Verified Allergy, Unknown, 03/29/18) LEVOFLOXACIN (Verified Allergy, Unknown, 10/02/10) PENICILLINS (Verified Allergy, Unknown, ITCH, 10/02/10) Uncoded Allergies: CONTRAST MEDIA (Adverse Reaction, Mild, MILD ITCHING AFTER CONTRAST MEDIA, 04/30/17) Objective Last 24 Hour Vital Signs Date Time Temp Pulse Resp B/P (MAP) Pulse Ox O2 Delivery O2 Flow Rate FiO2 05/01/18 21:15 74 20 77/65 (69) 100 05/01/18 21:00 72 20 77/31 (46) 100 05/01/18 20:30 84 22 86/47 (60) 99 05/01/18 20:12 76 20 77/29 (45) 91 05/01/18 20:00 Room Air 05/01/18 20:00 97.7 80 18 77/35 (49) 92 05/01/18 20:00 74 05/01/18 19:00 75 21 98/26 (50) 97 05/01/18 18:00 74 21 83/27 (45) 94 05/01/18 17:00 74 18 99/39 (59) 95 05/01/18 16:00 73 05/01/18 16:00 98.6 67 19 82/31 (48) 94 05/01/18 16:00 Room Air 05/01/18 15:00 69 18 83/32 (49) 100 05/01/18 14:00 67 18 66/38 (47) 100 05/01/18 13:00 67 18 66/38 (47) 100 05/01/18 12:00 Room Air 05/01/18 12:00 68 05/01/18 12:00 98.1 68 28 72/24 (40) 94 05/01/18 11:00 66 20 70/25 (40) 100 05/01/18 10:00 66 22 84/32 (49) 99 05/01/18 09:00 66 17 79/30 (46) 99 05/01/18 08:01 96.4 67 20 77/24 (41) 100 05/01/18 08:00 69 05/01/18 08:00 Room Air 05/01/18 08:00 67 20 77/24 (41) 100 05/01/18 07:12 88 24 80/29 (46) 84 05/01/18 07:12 88 24 80/29 (46) 84 05/01/18 07:10 82 19 70/28 (42) 86 05/01/18 07:10 82 19 70/28 (42) 86 05/01/18 07:05 85 20 77/30 (46) 90 05/01/18 07:05 85 20 77/30 (46) 90 05/01/18 07:00 78 20 78/35 (49) 94 05/01/18 07:00 78 20 78/35 (49) 94 05/01/18 06:00 76 22 87/30 (49) 98 05/01/18 06:00 68 20 87/30 (49) 05/01/18 05:00 67 20 96/30 (52) 100 05/01/18 05:00 67 20 96/30 (52) 100 05/01/18 04:00 72 21 84/34 (51) 100 05/01/18 04:00 67 05/01/18 04:00 Room Air 05/01/18 04:00 97.7 72 21 84/34 (51) 100 05/01/18 03:09 69 22 85/27 (46) 100 05/01/18 03:09 69 22 85/27 (46) 100 05/01/18 03:00 70 21 79/28 (45) 100 05/01/18 03:00 70 21 79/28 (45) 100 05/01/18 02:02 68 21 77/29 (45) 100 05/01/18 02:02 68 21 77/29 (45) 100 05/01/18 02:00 88/36 05/01/18 02:00 69 21 100 05/01/18 01:00 72 19 88/36 (53) 100 05/01/18 01:00 72 19 88/36 (53) 100 05/01/18 00:00 97.9 74 19 83/36 (52) 100 05/01/18 00:00 Room Air 05/01/18 00:00 74 19 83/36 (52) 100 04/30/18 23:00 76 23 86/32 (50) 100 04/30/18 22:00 74 20 87/27 (47) 100 Intake and Output 04/30/18 05/01/18 18:59 06:59 Intake Total 170 ml 60 ml Output Total 2000 ml 0 ml Balance -1830 ml 60 ml Intake Oral 30 ml 60 ml IV Total 100 ml Other 40 ml Output Urine Total 0 ml 0 ml Hemodialysis UF 2000 ml # Bowel Movements 2 1 Laboratory Tests 05/01/18 04:00: White Blood Count 4.6L, Red Blood Count 2.39L, Hemoglobin 7.0L, Hematocrit 21.8L , Mean Corpuscular Volume 91, Mean Corpuscular Hemoglobin 29.4, Mean Corpuscular Hemoglobin Concent 32.2, Red Cell Distribution Width 14.5, Platelet Count 157, Mean Platelet Volume 9.7, Neutrophils (%) (Auto) , Lymphocytes (%) ( Auto) , Monocytes (%) (Auto) , Eosinophils (%) (Auto) , Basophils (%) (Auto) , Differential Total Cells Counted 100, Neutrophils % (Manual) 69, Lymphocytes % ( Manual) 17L, Monocytes % (Manual) 12H, Eosinophils % (Manual) 2, Basophils % ( Manual) 0, Band Neutrophils 0, Platelet Estimate Adequate, Platelet Morphology Normal, Hypochromasia 1+, Anisocytosis 1+, Sodium Level 137, Potassium Level 3.3L, Chloride Level 96L, Carbon Dioxide Level 33H, Anion Gap 8, Blood Urea Nitrogen 22H, Creatinine 5.7H, Estimat Glomerular Filtration Rate 9.3, Glucose Level 98, Calcium Level 9.1 Height (Feet): 5 Height (Inches): 6.00 Weight (Pounds): 206 General Appearance: alert Neurologic: oriented x 3, responsive, depressed affect Edwin Brown MD May 01, 2018 21:42
--- NOTE | 2018-05-01 22:03 | NUR ---
NURSE NOTES: Patient in bed resting able to verbalize needs to staff. Denies any pain or discomfort. Skin warm and dry to touch. BP 81/34. Call light within easy reach. Will continue plan of care.
[2018-05-02] VITALS (9 sets, daily range): BP systolic 81–102; BP diastolic 35–57
--- NOTE | 2018-05-02 | NUR ---
NURSE NOTES: Patient in bed sleeping comfortably. No acute distress noted. No complain of pain or discomfort. Will continue plan of care.
--- NOTE | 2018-05-02 02:50 | NUR ---
TRANSFER TO FLOOR: Patient transferred to SDU 242-2, per Dr. Liang. Report given to Rosalina MÁRQUEZ. Belongings and medications given to . Family and or S/O informed of transfer.
--- NOTE | 2018-05-02 03:00 | NUR ---
NURSE NOTES: Pt transferred fro ICU. given report from WILLI Crespo. Pt is awake and alert. No sign of acute distress noted. Checked belongings with Pt. Lt. AV shunt present of bruit and thrills. Dressing is clean and dry on Rt. Femoral perma Cath area. Pt scheduled dialysis today and called to dialysis center by previous nurse. [employer] Tele monitor. Placed fall precaution. Will continue to care plan.
[2018-05-02] MEDS ORDERED: HYDROmorphone 1mg/ml Carpuject IVP PRN (03:45)
[2018-05-02] MEDS ORDERED: guaiFENesin 100mg/5ml Liq ud ORAL PRN (05:00)
[2018-05-02] MEDS ORDERED: LORazepam 1mg tab ORAL PRN (05:15)
[2018-05-02] MEDS: Midodrine 10mg tab ORAL SCH ×3 (06:03→21:14)
[2018-05-02] MEDS ORDERED: Loperamide 2mg cap ORAL PRN (06:15)
[2018-05-02 07:11] LABS: HEMATOCRIT 22.3 % (37.0-47.0); HEMOGLOBIN 7.4 G/DL (12.0-16.0); MEAN CORPUSCULAR VOLUME 91 FL (80-99); PLATELET COUNT 173 K/UL (150-450); RED BLOOD COUNT 2.46 M/UL (4.20-5.40); WHITE BLOOD COUNT 4.7 K/UL (4.8-10.8)
[2018-05-02 07:33] LABS: ALANINE AMINOTRANSFERASE 13 U/L (12-78); ALBUMIN 2.7 G/DL (3.4-5.0); ALBUMIN/GLOBULIN RATIO 0.6 (1.0-2.7); ALKALINE PHOSPHATASE 333 U/L (46-116); ANION GAP 11 mmol/L (5-15); ASPARTATE AMINO TRANSFERASE 13 U/L (15-37); BILIRUBIN,TOTAL 0.6 MG/DL (0.2-1.0); BLOOD UREA NITROGEN 31 mg/dL (7-18); CALCIUM 9.8 MG/DL (8.5-10.1); CARBON DIOXIDE 30 MMOL/L (21-32); CHLORIDE 95 MMOL/L (98-107); CREATININE 7.3 MG/DL (0.55-1.30); POTASSIUM 3.6 MMOL/L (3.5-5.1); SODIUM 136 MMOL/L (136-145)
--- NOTE | 2018-05-02 07:36 | NUR ---
HAND-OFF: Report given to WILLI Alvarez. Pt is sleeping on the bed and no sign of acute distress noted.
--- NOTE | 2018-05-02 07:40 | NUR ---
NURSE NOTES: Report received from Rosalina MÁRQUEZ. Pt sleepy but arousable. Pt alert and able to make needs known. Pt connected to cardiac cath lab radiology technologist, ST. Pt on room air no SOB. L AV noted and intact. R femoral permacath noted and intact. No acute distress at this time. Safety measures in place with bed locked and kn lowest position, side rails up and call light within reach. Will continue to monitor and continue plan of care.
[2018-05-02] MEDS: Bisacodyl EC 5mg tab ORAL SCH ×2 (09:00→17:03)
[2018-05-02] MEDS: Heparin 5000 units/ml inj SUBQ SCH ×2 (09:00→21:16)
[2018-05-02] MEDS: Aspirin Baby 81mg ORAL SCH (09:01)
[2018-05-02] MEDS: Citalopram Hydrobromide 10mg Tab ORAL SCH (09:01)
--- NOTE | 2018-05-02 09:36 | NUR ---
RADIOLOGY DEPT CHEST X-RAY DONE.-P.DYE
[2018-05-02] MEDS ORDERED: Metoclopramide 10mg/2ml Inj IVP PRN (09:45)
--- NOTE | 2018-05-02 12:04 | Nephrology Progress Note ---
Assessment/Plan Problem List: (1) ESRD (end stage renal disease) on dialysis (2) Hypotension (3) Anemia of renal disease (4) Metabolic encephalopathy (5) Pneumonia Assessment ESRD on HD- HypoThyroidism- Periodic Hypotension- encephalopathic , metabolic- Plan off dopamine dialysis next 05/02 consider transfusion as needed Reglan for vomiting recheck serum cortisol level- noted add asa and isordil for rising Troponin add prn imodium for loose bm per orders midodrine per consultants antibiotics for pneumonia Subjective ROS Limited/Unobtainable: No Objective Objective Last 24 Hour Vital Signs Date Time Temp Pulse Resp B/P (MAP) Pulse Ox O2 Delivery O2 Flow Rate FiO2 05/02/18 08:00 Room Air 05/02/18 08:00 68 05/02/18 08:00 97.5 82 20 102/53 (69) 97 05/02/18 04:00 Room Air 05/02/18 04:00 98.1 70 20 91/50 (64) 100 05/02/18 04:00 91 05/02/18 03:00 69 21 94/57 (69) 100 05/02/18 02:00 74 21 81/47 (58) 100 05/02/18 01:03 68 19 81/35 (50) 100 05/02/18 00:00 98.0 69 20 85/35 (52) 100 05/02/18 00:00 79 05/02/18 00:00 Room Air 05/01/18 23:06 72 19 82/43 (56) 100 05/01/18 23:00 74 19 79/37 (51) 100 05/01/18 22:03 77 18 81/34 (50) 98 05/01/18 21:15 74 20 77/65 (69) 100 05/01/18 21:00 72 20 77/31 (46) 100 05/01/18 20:30 84 22 86/47 (60) 99 05/01/18 20:12 76 20 77/29 (45) 91 05/01/18 20:00 Room Air 05/01/18 20:00 97.7 80 18 77/35 (49) 92 05/01/18 20:00 74 05/01/18 19:00 75 21 98/26 (50) 97 05/01/18 18:00 74 21 83/27 (45) 94 05/01/18 17:00 74 18 99/39 (59) 95 05/01/18 16:00 73 05/01/18 16:00 98.6 67 19 82/31 (48) 94 05/01/18 16:00 Room Air 05/01/18 15:00 69 18 83/32 (49) 100 05/01/18 14:00 67 18 66/38 (47) 100 05/01/18 13:00 67 18 66/38 (47) 100 Intake and Output 05/01/18 05/02/18 19:00 07:00 Intake Total 360 ml 30 ml Output Total 0 ml 0 ml Balance 360 ml 30 ml Intake Oral 360 ml 30 ml Output Urine Total 0 ml 0 ml # Bowel Movements 1 1 Laboratory Tests 05/02/18 06:20: White Blood Count 4.7L, Red Blood Count 2.46L, Hemoglobin 7.4L, Hematocrit 22.3L , Mean Corpuscular Volume 91, Mean Corpuscular Hemoglobin 30.3, Mean Corpuscular Hemoglobin Concent 33.4, Red Cell Distribution Width 15.0H, Platelet Count 173, Mean Platelet Volume 8.7, Neutrophils (%) (Auto) , Lymphocytes (%) (Auto) , Monocytes (%) (Auto) , Eosinophils (%) (Auto) , Basophils (%) (Auto) , Differential Total Cells Counted 100, Neutrophils % ( Manual) 63, Lymphocytes % (Manual) 23, Monocytes % (Manual) 9, Eosinophils % ( Manual) 4H, Basophils % (Manual) 1, Band Neutrophils 0, Platelet Estimate Adequate, Platelet Morphology Normal, Anisocytosis 1+, Sodium Level 136, Potassium Level 3.6, Chloride Level 95L, Carbon Dioxide Level 30, Anion Gap 11, Blood Urea Nitrogen 31H, Creatinine 7.3H, Estimat Glomerular Filtration Rate 7.2 , Glucose Level 105, Calcium Level 9.8, Total Bilirubin 0.6, Aspartate Amino Transf (AST/SGOT) 13L, Alanine Aminotransferase (ALT/SGPT) 13, Alkaline Phosphatase 333H, Pro-B-Type Natriuretic Peptide 3326H, Total Protein 7.1, Albumin 2.7L, Globulin 4.4, Albumin/Globulin Ratio 0.6L Height (Feet): 5 Height (Inches): 6.00 Weight (Pounds): 210 General Appearance: no apparent distress Cardiovascular: normal rate Respiratory/Chest: decreased breath sounds Abdomen: soft Objective no change Fredrick Conner MD May 02, 2018 12:04
--- NOTE | 2018-05-02 12:11 | Pulmonology Progress Note ---
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 Subjective ROS Limited/Unobtainable: Yes Constitutional: Reports: no symptoms HEENT: Repors: no symptoms Respiratory: Reports: no symptoms Allergies: Coded Allergies: CEFAZOLIN (Verified Allergy, Unknown, 10/02/10) CIPROFLOXACIN (Verified Allergy, Unknown, 10/02/10) GENTAMICIN (Verified Allergy, Unknown, 10/02/10) KETAMINE (Verified Allergy, Unknown, 03/29/18) LEVOFLOXACIN (Verified Allergy, Unknown, 10/02/10) PENICILLINS (Verified Allergy, Unknown, ITCH, 10/02/10) Uncoded Allergies: CONTRAST MEDIA (Adverse Reaction, Mild, MILD ITCHING AFTER CONTRAST MEDIA, 04/30/17) Objective Last 24 Hour Vital Signs Date Time Temp Pulse Resp B/P (MAP) Pulse Ox O2 Delivery O2 Flow Rate FiO2 05/02/18 08:00 Room Air 05/02/18 08:00 68 05/02/18 08:00 97.5 82 20 102/53 (69) 97 05/02/18 04:00 Room Air 05/02/18 04:00 98.1 70 20 91/50 (64) 100 05/02/18 04:00 91 05/02/18 03:00 69 21 94/57 (69) 100 05/02/18 02:00 74 21 81/47 (58) 100 05/02/18 01:03 68 19 81/35 (50) 100 05/02/18 00:00 98.0 69 20 85/35 (52) 100 05/02/18 00:00 79 05/02/18 00:00 Room Air 05/01/18 23:06 72 19 82/43 (56) 100 05/01/18 23:00 74 19 79/37 (51) 100 05/01/18 22:03 77 18 81/34 (50) 98 05/01/18 21:15 74 20 77/65 (69) 100 05/01/18 21:00 72 20 77/31 (46) 100 05/01/18 20:30 84 22 86/47 (60) 99 05/01/18 20:12 76 20 77/29 (45) 91 05/01/18 20:00 Room Air 05/01/18 20:00 97.7 80 18 77/35 (49) 92 05/01/18 20:00 74 05/01/18 19:00 75 21 98/26 (50) 97 05/01/18 18:00 74 21 83/27 (45) 94 05/01/18 17:00 74 18 99/39 (59) 95 05/01/18 16:00 73 05/01/18 16:00 98.6 67 19 82/31 (48) 94 05/01/18 16:00 Room Air 05/01/18 15:00 69 18 83/32 (49) 100 05/01/18 14:00 67 18 66/38 (47) 100 05/01/18 13:00 67 18 66/38 (47) 100 Intake and Output 05/01/18 05/02/18 19:00 07:00 Intake Total 360 ml 30 ml Output Total 0 ml 0 ml Balance 360 ml 30 ml Intake Oral 360 ml 30 ml Output Urine Total 0 ml 0 ml # Bowel Movements 1 1 General Appearance: WD/WN HEENT: normocephalic, atraumatic Respiratory/Chest: chest wall non-tender, lungs clear Breasts: no masses Cardiovascular: normal peripheral pulses, normal rate Abdomen: normal bowel sounds, no organomegaly Genitourinary: normal external genitalia Extremities: no cyanosis 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 Lymphatic: no neck adenopathy Musculoskeletal: normal muscle bulk Laboratory Tests 05/02/18 06:20: White Blood Count 4.7L, Red Blood Count 2.46L, Hemoglobin 7.4L, Hematocrit 22.3L , Mean Corpuscular Volume 91, Mean Corpuscular Hemoglobin 30.3, Mean Corpuscular Hemoglobin Concent 33.4, Red Cell Distribution Width 15.0H, Platelet Count 173, Mean Platelet Volume 8.7, Neutrophils (%) (Auto) , Lymphocytes (%) (Auto) , Monocytes (%) (Auto) , Eosinophils (%) (Auto) , Basophils (%) (Auto) , Differential Total Cells Counted 100, Neutrophils % ( Manual) 63, Lymphocytes % (Manual) 23, Monocytes % (Manual) 9, Eosinophils % ( Manual) 4H, Basophils % (Manual) 1, Band Neutrophils 0, Platelet Estimate Adequate, Platelet Morphology Normal, Anisocytosis 1+, Sodium Level 136, Potassium Level 3.6, Chloride Level 95L, Carbon Dioxide Level 30, Anion Gap 11, Blood Urea Nitrogen 31H, Creatinine 7.3H, Estimat Glomerular Filtration Rate 7.2 , Glucose Level 105, Calcium Level 9.8, Total Bilirubin 0.6, Aspartate Amino Transf (AST/SGOT) 13L, Alanine Aminotransferase (ALT/SGPT) 13, Alkaline Phosphatase 333H, Pro-B-Type Natriuretic Peptide 3326H, Total Protein 7.1, Albumin 2.7L, Globulin 4.4, Albumin/Globulin Ratio 0.6L Current Medications Medications (Trade) Dose Ordered Sig/Marcos Route PRN Reason Start Time Stop Time Status Last Admin Dose Admin Acetaminophen (Tylenol) 650 mg Q6H PRN ORAL Mild Pain/Temp > 100.5 05/02/18 05:45 05/12/18 17:44 Albumin Human 100 ml @ 100 mls/hr QOD PRN IV with HD 05/02/18 09:00 05/30/18 08:59 Aspirin (ASA) 81 mg DAILY ORAL 05/02/18 09:00 05/17/18 08:59 05/02/18 09:01 Bisacodyl (Dulcolax) 5 mg BID ORAL 05/02/18 09:00 05/21/18 18:59 Chlorhexidine Gluconate (Nivia-Hex 2%) 1 applic DAILY@2000 TOPIC 05/02/18 20:00 05/13/18 19:59 Citalopram Hydrobromide (celeXA) 20 mg DAILY ORAL 05/02/18 09:00 05/25/18 11:59 05/02/18 09:01 Dopamine HCl/ Dextrose 250 ml @ 0 mls/hr Q24H IV 05/03/18 02:00 05/18/18 01:59 Guaifenesin (Robitussin) 300 mg Q6H PRN ORAL For Cough 05/02/18 05:00 05/14/18 16:59 Heparin Sodium (Porcine) (Heparin 5000 units/ml) 5,000 units EVERY 12 HOURS SUBQ 05/02/18 09:00 05/12/18 20:59 Loperamide HCl (Imodium) 2 mg Q4H PRN ORAL Diarrhea 05/02/18 06:15 05/25/18 18:14 Metoclopramide HCl (Reglan) 5 mg BEFORE MEALS ORAL 05/02/18 06:30 05/28/18 11:29 05/02/18 06:03 Metoclopramide HCl (Reglan) 10 mg Q8H PRN IVP Nausea & Vomiting 05/02/18 09:45 05/28/18 09:44 Midodrine (Pro-Amatine) 10 mg Q8HR ORAL 05/02/18 06:00 05/19/18 13:59 05/02/18 06:03 Mirtazapine (Remeron) 7.5 mg BEDTIME ORAL 05/02/18 21:00 05/25/18 20:59 Pantoprazole (Protonix) 40 mg BID ORAL 05/02/18 09:00 05/12/18 17:59 05/02/18 09:01 Polyethylene Glycol (Miralax) 17 gm BEDTIME ORAL 05/02/18 21:00 05/21/18 20:59 Sevelamer Carbonate (Renvela) 2,400 mg THREE TIMES A DAY ORAL 05/02/18 09:00 05/13/18 08:59 05/02/18 09:01 Cuate Schmidt MD May 02, 2018 12:11
--- NOTE | 2018-05-02 12:12 | GI Progress Note ---
Assessment/Plan Problems: (1) Epigastric abdominal pain ICD Codes: R10.13 - Epigastric pain SNOMED: 08000280 (2) Anxiety ICD Codes: F41.9 - Anxiety disorder, unspecified SNOMED: 15103257 (3) Constipation ICD Codes: K59.00 - Constipation, unspecified SNOMED: 54224348 (4) Anemia of renal disease ICD Codes: D63.1 - Anemia in chronic kidney disease SNOMED: 935266452, 766644928 Status: stable Status Narrative Discussed with Dr. Diaz Assessment/Plan Unknown history of abdominal surgery abdominal pain resolved at this time KUB noted mainly unremarkable cdiff, stool studies both negative OB stool negative x3 on renal diet protonix daily zofran prn fu labs bowel regimen pain mgmt PT evaluation Outpatient GI procedures The patient was seen and examined at bedside and all new and available data was reviewed in the patients chart. I agree with the above findings, impression and plan. (Patient seen earlier today. Signature stamp does not reflect patient encounter time.). - Ryley Diaz MD Subjective Subjective denies abdominal pain nausea has resolved constipated Objective Last 24 Hour Vital Signs Date Time Temp Pulse Resp B/P (MAP) Pulse Ox O2 Delivery O2 Flow Rate FiO2 05/02/18 08:00 Room Air 05/02/18 08:00 68 05/02/18 08:00 97.5 82 20 102/53 (69) 97 05/02/18 04:00 Room Air 05/02/18 04:00 98.1 70 20 91/50 (64) 100 05/02/18 04:00 91 05/02/18 03:00 69 21 94/57 (69) 100 05/02/18 02:00 74 21 81/47 (58) 100 05/02/18 01:03 68 19 81/35 (50) 100 05/02/18 00:00 98.0 69 20 85/35 (52) 100 05/02/18 00:00 79 05/02/18 00:00 Room Air 05/01/18 23:06 72 19 82/43 (56) 100 05/01/18 23:00 74 19 79/37 (51) 100 05/01/18 22:03 77 18 81/34 (50) 98 05/01/18 21:15 74 20 77/65 (69) 100 05/01/18 21:00 72 20 77/31 (46) 100 05/01/18 20:30 84 22 86/47 (60) 99 05/01/18 20:12 76 20 77/29 (45) 91 05/01/18 20:00 Room Air 05/01/18 20:00 97.7 80 18 77/35 (49) 92 05/01/18 20:00 74 05/01/18 19:00 75 21 98/26 (50) 97 05/01/18 18:00 74 21 83/27 (45) 94 05/01/18 17:00 74 18 99/39 (59) 95 05/01/18 16:00 73 05/01/18 16:00 98.6 67 19 82/31 (48) 94 05/01/18 16:00 Room Air 05/01/18 15:00 69 18 83/32 (49) 100 05/01/18 14:00 67 18 66/38 (47) 100 05/01/18 13:00 67 18 66/38 (47) 100 Intake and Output 05/01/18 05/02/18 19:00 07:00 Intake Total 360 ml 30 ml Output Total 0 ml 0 ml Balance 360 ml 30 ml Intake Oral 360 ml 30 ml Output Urine Total 0 ml 0 ml # Bowel Movements 1 1 Laboratory Tests Test 05/02/18 06:20 White Blood Count 4.7 K/UL (4.8-10.8) L Red Blood Count 2.46 M/UL (4.20-5.40) L Hemoglobin 7.4 G/DL (12.0-16.0) L Hematocrit 22.3 % (37.0-47.0) L Mean Corpuscular Volume 91 FL (80-99) Mean Corpuscular Hemoglobin 30.3 PG (27.0-31.0) Mean Corpuscular Hemoglobin Concent 33.4 G/DL (32.0-36.0) Red Cell Distribution Width 15.0 % (11.6-14.8) H Platelet Count 173 K/UL (150-450) Mean Platelet Volume 8.7 FL (6.5-10.1) Neutrophils (%) (Auto) % (45.0-75.0) Lymphocytes (%) (Auto) % (20.0-45.0) Monocytes (%) (Auto) % (1.0-10.0) Eosinophils (%) (Auto) % (0.0-3.0) Basophils (%) (Auto) % (0.0-2.0) Differential Total Cells Counted 100 Neutrophils % (Manual) 63 % (45-75) Lymphocytes % (Manual) 23 % (20-45) Monocytes % (Manual) 9 % (1-10) Eosinophils % (Manual) 4 % (0-3) H Basophils % (Manual) 1 % (0-2) Band Neutrophils 0 % (0-8) Platelet Estimate Adequate Platelet Morphology Normal Anisocytosis 1+ Sodium Level 136 MMOL/L (136-145) Potassium Level 3.6 MMOL/L (3.5-5.1) Chloride Level 95 MMOL/L (98-107) L Carbon Dioxide Level 30 MMOL/L (21-32) Anion Gap 11 mmol/L (5-15) Blood Urea Nitrogen 31 mg/dL (7-18) H Creatinine 7.3 MG/DL (0.55-1.30) H Estimat Glomerular Filtration Rate 7.2 mL/min (>60) Glucose Level 105 MG/DL (74-106) Calcium Level 9.8 MG/DL (8.5-10.1) Total Bilirubin 0.6 MG/DL (0.2-1.0) Aspartate Amino Transf (AST/SGOT) 13 U/L (15-37) L Alanine Aminotransferase (ALT/SGPT) 13 U/L (12-78) Alkaline Phosphatase 333 U/L (46-116) H Pro-B-Type Natriuretic Peptide 3326 pg/mL (0-125) H Total Protein 7.1 G/DL (6.4-8.2) Albumin 2.7 G/DL (3.4-5.0) L Globulin 4.4 g/dL Albumin/Globulin Ratio 0.6 (1.0-2.7) L Height (Feet): 5 Height (Inches): 6.00 Weight (Pounds): 210 General Appearance: WD/WN, no apparent distress, alert Cardiovascular: normal rate Respiratory/Chest: normal breath sounds, no respiratory distress Abdominal Exam: normal bowel sounds, non tender, soft Extremities: normal range of motion, non-tender Wm Faustin [employer]NING REPAIRER May 02, 2018 12:12
--- NOTE | 2018-05-02 12:30 | Infectious Diseases Prog Note ---
Assessment/Plan Assessment/Plan ASSESSMENT: 1. sepsis, shock, pneumonia, CT chest noted, pressors, bradycardia, sputum culture with mold, ? aspergillus pna, ? other source for shock, abdominal pain, n/v hx - s/p 14 day course meropenem and doxycycline - s/p 10 days voriconazole day # 10, held secondary to elevated TB which has now normalized - d/w microbiology and ID of mold pending (send out), await result - off pressors now - hearing better off vancomycin - monitor labs and chest x-ray - icu care, remains on pressors, no vent - monitor chest x-ray of abx/anti-fungal - d/w Dr. Schmidt and will repeat CT scan 2. End-stage renal disease, hemodialysis, has a right femoral line hemodialysis line and also left arm graft. 3. History of fistula in the past. 4. History of PermCath in the past 5. Anemia of chronic disease. 6. Hypertension - Blood pressure treatment per primary. 7. No history of diabetes mentioned. 8. Chronic kidney disease. 9. Obesity. 10. History of cholecystectomy. 11. History of parathyroidectomy. 12. History of carpal tunnel syndrome. 13. History of fractures, ORIF. 14. Past medical history noted. 15. Multiple drug allergies including cefazolin, Cipro, contrast media, gentamicin, ketamine, Levaquin and penicillin, she seems to tolerate carbapenems. 16. Social history is negative . 17. Family history is noncontributory. 18. MAR was noted. 19. Case discussed with RN. 20. Continue treatment per primary consultants. 21. Notes were noted and orders were entered. Subjective Constitutional: Reports: fatigue; Denies: fever HEENT: Denies: congestion Respiratory: Reports: dry cough; Denies: shortness of breath Cardiovascular: Denies: chest pain Gastrointestinal/Abdominal: Denies: nausea, vomiting, diarrhea Genitourinary: Reports: other - no mckinney Neurologic: Denies: headache Psychiatric: Denies: depression Skin: Denies: rash Hematologic: Denies: bleeding Musculoskeletal: Denies: pain Allergies: Coded Allergies: CEFAZOLIN (Verified Allergy, Unknown, 10/02/10) CIPROFLOXACIN (Verified Allergy, Unknown, 10/02/10) GENTAMICIN (Verified Allergy, Unknown, 10/02/10) KETAMINE (Verified Allergy, Unknown, 03/29/18) LEVOFLOXACIN (Verified Allergy, Unknown, 10/02/10) PENICILLINS (Verified Allergy, Unknown, ITCH, 10/02/10) Uncoded Allergies: CONTRAST MEDIA (Adverse Reaction, Mild, MILD ITCHING AFTER CONTRAST MEDIA, 04/30/17) Objective Vital Signs Last 24 Hour Vital Signs Date Time Temp Pulse Resp B/P (MAP) Pulse Ox O2 Delivery O2 Flow Rate FiO2 05/02/18 08:00 Room Air 05/02/18 08:00 68 05/02/18 08:00 97.5 82 20 102/53 (69) 97 05/02/18 04:00 Room Air 05/02/18 04:00 98.1 70 20 91/50 (64) 100 05/02/18 04:00 91 05/02/18 03:00 69 21 94/57 (69) 100 05/02/18 02:00 74 21 81/47 (58) 100 05/02/18 01:03 68 19 81/35 (50) 100 05/02/18 00:00 98.0 69 20 85/35 (52) 100 05/02/18 00:00 79 05/02/18 00:00 Room Air 05/01/18 23:06 72 19 82/43 (56) 100 05/01/18 23:00 74 19 79/37 (51) 100 05/01/18 22:03 77 18 81/34 (50) 98 05/01/18 21:15 74 20 77/65 (69) 100 05/01/18 21:00 72 20 77/31 (46) 100 05/01/18 20:30 84 22 86/47 (60) 99 05/01/18 20:12 76 20 77/29 (45) 91 05/01/18 20:00 Room Air 05/01/18 20:00 97.7 80 18 77/35 (49) 92 05/01/18 20:00 74 05/01/18 19:00 75 21 98/26 (50) 97 05/01/18 18:00 74 21 83/27 (45) 94 05/01/18 17:00 74 18 99/39 (59) 95 05/01/18 16:00 73 05/01/18 16:00 98.6 67 19 82/31 (48) 94 1/13/19 16:00 Room Air 05/01/18 15:00 69 18 83/32 (49) 100 05/01/18 14:00 67 18 66/38 (47) 100 05/01/18 13:00 67 18 66/38 (47) 100 Height (Feet): 5 Height (Inches): 6.00 Weight (Pounds): 210 General Appearance: no acute distress HEENT: normocephalic, atraumatic, anicteric, mucous membranes moist Respiratory/Chest: no accessory muscle use, rhonchi - bilaterally, other - mostly clear bilateral, no sig rales on my exam Cardiovascular: normal rate, regular rhythm, no gallop/murmur, no JVD Abdomen: normal bowel sounds, soft, non tender, no organomegaly, non distended Genitourinary: other - no mckinney, no cva pain Extremities: no cyanosis Skin: no rash Neurologic/Psychiatric: waist fitter II-XII grossly normal, alert, oriented x 3, responsive Lymphatic: no neck adenopathy Musculoskeletal: no effusion Objective CT Chest: IMPRESSION: * Dense consolidations with air bronchograms noted in the left upper lobe and, to a lesser extent, medial right lower lobe most likely representing multifocal pneumonia. Follow-up after appropriate treatment recommended to ensure resolution. * Patchy opacities in the right upper lobe are also likely infectious in etiology. These obscure the previously described lung nodule. Attention to this area on follow-up recommended. * Prominent hilar and mediastinal lymph nodes, possibly reactive in etiology. * Small bilateral pleural effusions. * Large hiatal hernia * Dialysis catheter tip in the right atrium. Evidence of central venous occlusion with multiple collateral veins noted in the mediastinum. * Nonspecific calcifications in the bilateral breasts are correlation with most recent mammogram recommended. If none performed recently, then recommend follow- up screening mammogram. * Findings suggestive of renal osteodystrophy Chest x-ray - 04/14 - Findings: Heart size and mediastinal contours stable. Femoral approach dialysis catheter is again noted. Multiple surgical clips noted in the bilateral axilla. Portions of a stents again visualized in the right axilla. Multiple surgical clips noted in the right arm. [employer] opacities in the left midlung peripherally. No evidence of pneumothorax. There is patchy opacity at the right base. Osseous structures stable. Calcifications in the right breast noted. Impression: Left-sided airspace opacities most concerning for pneumonia. There is slight interval increased density compared to prior exam which may be technical. 04/16/18 - chest x-ray - IMPRESSION: 1. Bilateral airspace opacities, most confluent in the left midlung field. Could be from consolidation/pneumonia. There is a broad differential. Follow to ensure resolution and exclude other mimics. 2. Suspect bilateral pleural effusions. 3. Vascular congestion. 04/20/18: Comparison: 04/16/2018 A single view chest radiograph was obtained. Findings: Interstitial edema again suspected mild in degree, slightly improved from the prior study. Heart size is stable. Large bore catheter projected over the right atrium entering from the IVC. Pleural-based density lateral aspect of the left lung again noted. Extensive surgical clips in the thoracic inlet and left axillary region noted. IMPRESSION: Some improvement in the initial edema. Other findings stable Chest x-ray - 04/23/18 - COMPARISON: Chest x-ray dated 04/19/18 FINDINGS: Single frontal view demonstrates a normal cardiomediastinal silhouette. Surgical clips in the neck base. Status post left axillary dissection. Central venous catheter terminating in the right atrium, may be extending from a femoral approach, grossly unchanged. Stable patchy opacity in the left mid lung zone. Increasing patchy opacity in bilateral lower lung zones, right greater the left. The visualized osseous structures are within normal limits. IMPRESSION: 1. Stable patchy opacity in the left mid lung zone. Increasing patchy opacity in bilateral lower lung zones, right greater the left. 2. Stable lines and postoperative findings as outlined above. Chest x-ray - 04/26/18 - Interstitial edema has improved significantly since over the last few days. There is a mass versus infiltrate in the left midlung that persists. There is extensive surgical clips both axilla. Vascular stent right upper arm noted. Heart size is normal. IMPRESSION: Interval improvement in CHF. Mass versus infiltrate in the left midlung Chest x-ray - 04/27/18 - Comparison: 04/26/2018 Findings: Again demonstrated is lateral pleural thickening and a peripheral polygonal dense parenchymal opacity, the latter appearing slightly larger than on the previous study. There is some hazy opacity in the right upper lung which is new since the prior study. Mild generalized interstitial prominence is again demonstrated. Right arm stent, bilateral axillary surgical clips are again noted. Femoral approach dialysis catheter is again noted, tip in the high right atrium. Impression: Increased size of left lateral pulmonary parenchymal opacity. This reflects dense consolidation demonstrated on prior radiographs and CT scan, perhaps slightly worse than on the previous study. Persistent lateral pleural thickening versus fluid. Possible hazy infiltrate in the right upper lobe Other stable findings as described Chest x-ray - 05/01/18 - IMPRESSION: 1. Persistent patchy opacities at the periphery of the left midlung and in the right lung base. 2. No significant change in diffuse the increased interstitial markings, likely representing interstitial edema versus interstitial pneumonitis. Microbiology Date/Time Source Procedure Growth Status 04/24/18 15:15 Blood Blood Culture - Final NO GROWTH AFTER 5 DAYS Complete 04/21/18 04:00 Sputum Expectorated Gram Stain - Final Complete 04/21/18 04:00 Sputum Expectorated Sputum Culture - Final NORMAL UPPER RESPIRATORY ESTEPHANIE AT 48 ... Complete 04/19/18 02:00 Stool Stool Culture - Final NO SALMONELLA,SHIGELLA OR CAMPYLOBACT... Complete 04/12/18 12:10 Rectum - Final NO CARBAPENEM-RESISTANT ENTEROBACTERI... Complete Laboratory Tests Test 05/02/18 06:20 White Blood Count 4.7 K/UL (4.8-10.8) L Red Blood Count 2.46 M/UL (4.20-5.40) L Hemoglobin 7.4 G/DL (12.0-16.0) L Hematocrit 22.3 % (37.0-47.0) L Mean Corpuscular Volume 91 FL (80-99) Mean Corpuscular Hemoglobin 30.3 PG (27.0-31.0) Mean Corpuscular Hemoglobin Concent 33.4 G/DL (32.0-36.0) Red Cell Distribution Width 15.0 % (11.6-14.8) H Platelet Count 173 K/UL (150-450) Mean Platelet Volume 8.7 FL (6.5-10.1) Neutrophils (%) (Auto) % (45.0-75.0) Lymphocytes (%) (Auto) % (20.0-45.0) Monocytes (%) (Auto) % (1.0-10.0) Eosinophils (%) (Auto) % (0.0-3.0) Basophils (%) (Auto) % (0.0-2.0) Differential Total Cells Counted 100 Neutrophils % (Manual) 63 % (45-75) Lymphocytes % (Manual) 23 % (20-45) Monocytes % (Manual) 9 % (1-10) Eosinophils % (Manual) 4 % (0-3) H Basophils % (Manual) 1 % (0-2) Band Neutrophils 0 % (0-8) Platelet Estimate Adequate Platelet Morphology Normal Anisocytosis 1+ Sodium Level 136 MMOL/L (136-145) Potassium Level 3.6 MMOL/L (3.5-5.1) Chloride Level 95 MMOL/L (98-107) L Carbon Dioxide Level 30 MMOL/L (21-32) Anion Gap 11 mmol/L (5-15) Blood Urea Nitrogen 31 mg/dL (7-18) H Creatinine 7.3 MG/DL (0.55-1.30) H Estimat Glomerular Filtration Rate 7.2 mL/min (>60) Glucose Level 105 MG/DL (74-106) Calcium Level 9.8 MG/DL (8.5-10.1) Total Bilirubin 0.6 MG/DL (0.2-1.0) Aspartate Amino Transf (AST/SGOT) 13 U/L (15-37) L Alanine Aminotransferase (ALT/SGPT) 13 U/L (12-78) Alkaline Phosphatase 333 U/L (46-116) H Pro-B-Type Natriuretic Peptide 3326 pg/mL (0-125) H Total Protein 7.1 G/DL (6.4-8.2) Albumin 2.7 G/DL (3.4-5.0) L Globulin 4.4 g/dL Albumin/Globulin Ratio 0.6 (1.0-2.7) L Current Medications Medications (Trade) Dose Ordered Sig/Marcos Route PRN Reason Start Time Stop Time Status Last Admin Dose Admin Acetaminophen (Tylenol) 650 mg Q6H PRN ORAL Mild Pain/Temp > 100.5 05/02/18 05:45 05/12/18 17:44 Albumin Human 100 ml @ 100 mls/hr QOD PRN IV with HD 05/02/18 09:00 05/30/18 08:59 Aspirin (ASA) 81 mg DAILY ORAL 05/02/18 09:00 05/17/18 08:59 05/02/18 09:01 Bisacodyl (Dulcolax) 5 mg BID ORAL 1/14/19 09:00 05/21/18 18:59 Chlorhexidine Gluconate (Nivia-Hex 2%) 1 applic DAILY@2000 TOPIC 05/02/18 20:00 05/13/18 19:59 Citalopram Hydrobromide (celeXA) 20 mg DAILY ORAL 05/02/18 09:00 05/25/18 11:59 05/02/18 09:01 Dopamine HCl/ Dextrose 250 ml @ 0 mls/hr Q24H IV 05/03/18 02:00 05/18/18 01:59 Guaifenesin (Robitussin) 300 mg Q6H PRN ORAL For Cough 05/02/18 05:00 05/14/18 16:59 Heparin Sodium (Porcine) (Heparin 5000 units/ml) 5,000 units EVERY 12 HOURS SUBQ 05/02/18 09:00 05/12/18 20:59 Loperamide HCl (Imodium) 2 mg Q4H PRN ORAL Diarrhea 05/02/18 06:15 05/25/18 18:14 Metoclopramide HCl (Reglan) 5 mg BEFORE MEALS ORAL 05/02/18 06:30 05/28/18 11:29 05/02/18 06:03 Metoclopramide HCl (Reglan) 10 mg Q8H PRN IVP Nausea & Vomiting 05/02/18 09:45 05/28/18 09:44 Midodrine (Pro-Amatine) 10 mg Q8HR ORAL 05/02/18 06:00 05/19/18 13:59 05/02/18 06:03 Mirtazapine (Remeron) 7.5 mg BEDTIME ORAL 05/02/18 21:00 05/25/18 20:59 Pantoprazole (Protonix) 40 mg BID ORAL 05/02/18 09:00 05/12/18 17:59 05/02/18 09:01 Polyethylene Glycol (Miralax) 17 gm BEDTIME ORAL 05/02/18 21:00 05/21/18 20:59 Sevelamer Carbonate (Renvela) 2,400 mg THREE TIMES A DAY ORAL 05/02/18 09:00 05/13/18 08:59 05/02/18 09:01 Edgardo Mcbride MD May 02, 2018 12:30
--- NOTE | 2018-05-02 13:17 | Diagnostic Imaging Report ---
Indication: Dyspnea Comparison: 05/01/2018 A single view chest radiograph was obtained. Findings: Interstitial edema and prominent vascularity again noted. Mild cardiomegaly is present. Overall this may be slightly improved since the last occasion. Vague density probably pleural-based noted within the left lateral midlung. Surgical clips in the both axilla again noted. IMPRESSION: Mild CHF suspected. Some improvement since the previous day
--- NOTE | 2018-05-02 15:15 | NUR ---
NURSE NOTES: Pt just retuned from CT chest. No acute distress. Will continue to monitor.
--- NOTE | 2018-05-02 16:17 | Cardiac Electrophysiology PN ---
Assessment/Plan Assessment/Plan 1. Troponin leak due to renal failure. Levels low and flat. No chest pain. 2. S/P Septic shock. Off Dopamine drip. Continue midodrine 10 mg tid 3. Bradycardia. Resolved. Off dopamine better 4. Anterior T-wave inversion. No chest pain. EF 60% 5. End-stage renal disease, on hemodialysis, per Dr. Conner. 6. Diarrhea C. Diff was negative 7. Severe anemia. Refusing transfusion DW RN Subjective Subjective Transferred out of ICU. Alert in NAD. Objective Last 24 Hour Vital Signs Date Time Temp Pulse Resp B/P (MAP) Pulse Ox O2 Delivery O2 Flow Rate FiO2 05/02/18 12:00 74 05/02/18 12:00 Room Air 05/02/18 12:00 97.7 85 20 98/44 (62) 100 05/02/18 08:00 Room Air 05/02/18 08:00 68 05/02/18 08:00 97.5 82 20 102/53 (69) 97 05/02/18 04:00 Room Air 05/02/18 04:00 98.1 70 20 91/50 (64) 100 05/02/18 04:00 91 05/02/18 03:00 69 21 94/57 (69) 100 05/02/18 02:00 74 21 81/47 (58) 100 05/02/18 01:03 68 19 81/35 (50) 100 05/02/18 00:00 98.0 69 20 85/35 (52) 100 05/02/18 00:00 79 05/02/18 00:00 Room Air 05/01/18 23:06 72 19 82/43 (56) 100 05/01/18 23:00 74 19 79/37 (51) 100 05/01/18 22:03 77 18 81/34 (50) 98 05/01/18 21:15 74 20 77/65 (69) 100 05/01/18 21:00 72 20 77/31 (46) 100 05/01/18 20:30 84 22 86/47 (60) 99 05/01/18 20:12 76 20 77/29 (45) 91 05/01/18 20:00 Room Air 05/01/18 20:00 97.7 80 18 77/35 (49) 92 05/01/18 20:00 74 05/01/18 19:00 75 21 98/26 (50) 97 05/01/18 18:00 74 21 83/27 (45) 94 05/01/18 17:00 74 18 99/39 (59) 95 Intake and Output 05/01/18 05/02/18 19:00 07:00 Intake Total 360 ml 30 ml Output Total 0 ml 0 ml Balance 360 ml 30 ml Intake Oral 360 ml 30 ml Output Urine Total 0 ml 0 ml # Bowel Movements 1 1 Laboratory Tests Test 05/02/18 06:20 White Blood Count 4.7 K/UL (4.8-10.8) L Red Blood Count 2.46 M/UL (4.20-5.40) L Hemoglobin 7.4 G/DL (12.0-16.0) L Hematocrit 22.3 % (37.0-47.0) L Mean Corpuscular Volume 91 FL (80-99) Mean Corpuscular Hemoglobin 30.3 PG (27.0-31.0) Mean Corpuscular Hemoglobin Concent 33.4 G/DL (32.0-36.0) Red Cell Distribution Width 15.0 % (11.6-14.8) H Platelet Count 173 K/UL (150-450) Mean Platelet Volume 8.7 FL (6.5-10.1) Neutrophils (%) (Auto) % (45.0-75.0) Lymphocytes (%) (Auto) % (20.0-45.0) Monocytes (%) (Auto) % (1.0-10.0) Eosinophils (%) (Auto) % (0.0-3.0) Basophils (%) (Auto) % (0.0-2.0) Differential Total Cells Counted 100 Neutrophils % (Manual) 63 % (45-75) Lymphocytes % (Manual) 23 % (20-45) Monocytes % (Manual) 9 % (1-10) Eosinophils % (Manual) 4 % (0-3) H Basophils % (Manual) 1 % (0-2) Band Neutrophils 0 % (0-8) Platelet Estimate Adequate Platelet Morphology Normal Anisocytosis 1+ Sodium Level 136 MMOL/L (136-145) Potassium Level 3.6 MMOL/L (3.5-5.1) Chloride Level 95 MMOL/L (98-107) L Carbon Dioxide Level 30 MMOL/L (21-32) Anion Gap 11 mmol/L (5-15) Blood Urea Nitrogen 31 mg/dL (7-18) H Creatinine 7.3 MG/DL (0.55-1.30) H Estimat Glomerular Filtration Rate 7.2 mL/min (>60) Glucose Level 105 MG/DL (74-106) Calcium Level 9.8 MG/DL (8.5-10.1) Total Bilirubin 0.6 MG/DL (0.2-1.0) Aspartate Amino Transf (AST/SGOT) 13 U/L (15-37) L Alanine Aminotransferase (ALT/SGPT) 13 U/L (12-78) Alkaline Phosphatase 333 U/L (46-116) H Pro-B-Type Natriuretic Peptide 3326 pg/mL (0-125) H Total Protein 7.1 G/DL (6.4-8.2) Albumin 2.7 G/DL (3.4-5.0) L Globulin 4.4 g/dL Albumin/Globulin Ratio 0.6 (1.0-2.7) L Objective HEAD AND NECK: No JVD. LUNGS: Decreased breath sounds. CARDIOVASCULAR: Regular S1 and S2 no GRM ABDOMEN: Soft. EXTREMITIES: No edema Tc Liang MD May 02, 2018 16:17
--- NOTE | 2018-05-02 16:22 | Diagnostic Imaging Report ---
Indication: Chest pain Technique: Continuous helical transaxial imaging of the chest was obtained from the thoracic inlet to the upper abdomen after intravenous nonionic contrast administration. Coronal 2-D reformats were also obtained. Automatic Exposure Control was utilized. Total Dose length Product (DLP): [address] Dose Index Volume (CTDIvol): 0.15, 8.11, 8.11, 27.52 mGy Comparison: none Findings: There is a moderate right pleural effusion and a small left pleural effusion. The pleural fluid in portions appears loculated given abnormal configuration. Patchy infiltrate demonstrated in the left perihilar region. Basal atelectasis noted posteriorly also. There is a large hiatal hernia. In the superior mediastinal region there is a cluster of serpiginous enhancing structures likely veins or collateral vessels. Extensive calcification of the right subclavian vein noted. There is also calcification of portions of SVC and left innominate vein. Partial nonocclusive thrombus may be present within the lower part of the left internal jugular vein. Patient has end-stage renal disease and there is likely some degree of Central venous occlusive disease. A large bore catheter presumably a permacath entering the right atrium via the IVC noted. The [place] kidneys are markedly atrophic. There is a small pericardial effusion. Anasarca is noted. The bones are heterogeneous and diffusely demineralized. IMPRESSION: Moderate right pleural effusion and small left pleural effusion likely loculated. Suspected infiltrate left perihilar region. Basal atelectasis. Extensive vasculopathy with the calcification of central veins within the upper chest and presence of collateral vessels suggestive of cysts significant Central venous occlusive disease. Permacath noted via inferior approach. Anasarca Trace pericardial effusion Large hiatal hernia. Atrophic kidneys consistent with end-stage renal disease. Abnormal bones. Renal osteodystrophy suspected. The CT scanner at [facility] is accredited by the [employer] and the scans are performed using dose optimization techniques as appropriate to a performed exam including Automatic Exposure control.
--- NOTE | 2018-05-02 18:24 | Internal Med Progress Note ---
Subjective Date of Service: May 02, 2018 Physician Name Edward Harrell Attending Physician Ahs Henley MD Current Medications Medications (Trade) Dose Ordered Sig/Marcos Route PRN Reason Start Time Stop Time Status Last Admin Dose Admin Acetaminophen (Tylenol) 650 mg Q6H PRN ORAL Mild Pain/Temp > 100.5 05/02/18 05:45 05/12/18 17:44 Albumin Human 100 ml @ 100 mls/hr QOD PRN IV with HD 05/02/18 09:00 05/30/18 08:59 Aspirin (ASA) 81 mg DAILY ORAL 05/02/18 09:00 05/17/18 08:59 05/02/18 09:01 Bisacodyl (Dulcolax) 5 mg BID ORAL 05/02/18 09:00 05/21/18 18:59 Chlorhexidine Gluconate (Nivia-Hex 2%) 1 applic DAILY@2000 TOPIC 05/02/18 20:00 05/13/18 19:59 Citalopram Hydrobromide (celeXA) 20 mg DAILY ORAL 05/02/18 09:00 05/25/18 11:59 05/02/18 09:01 Dopamine HCl/ Dextrose 250 ml @ 0 mls/hr Q24H IV 05/03/18 02:00 05/18/18 01:59 Guaifenesin (Robitussin) 300 mg Q6H PRN ORAL For Cough 05/02/18 05:00 05/14/18 16:59 Heparin Sodium (Porcine) (Heparin 5000 units/ml) 5,000 units EVERY 12 HOURS SUBQ 05/02/18 09:00 05/12/18 20:59 Loperamide HCl (Imodium) 2 mg Q4H PRN ORAL Diarrhea 05/02/18 06:15 05/25/18 18:14 Metoclopramide HCl (Reglan) 5 mg BEFORE MEALS ORAL 05/02/18 06:30 05/28/18 11:29 05/02/18 11:30 Metoclopramide HCl (Reglan) 10 mg Q8H PRN IVP Nausea & Vomiting 05/02/18 09:45 05/28/18 09:44 Midodrine (Pro-Amatine) 10 mg Q8HR ORAL 05/02/18 06:00 05/19/18 13:59 05/02/18 13:39 Mirtazapine (Remeron) 7.5 mg BEDTIME ORAL 05/02/18 21:00 05/25/18 20:59 Pantoprazole (Protonix) 40 mg BID ORAL 05/02/18 09:00 05/12/18 17:59 05/02/18 09:01 Polyethylene Glycol (Miralax) 17 gm BEDTIME ORAL 05/02/18 21:00 05/21/18 20:59 Sevelamer Carbonate (Renvela) 2,400 mg THREE TIMES A DAY ORAL 05/02/18 09:00 05/13/18 08:59 05/02/18 13:00 Allergies: Coded Allergies: CEFAZOLIN (Verified Allergy, Unknown, 10/02/10) CIPROFLOXACIN (Verified Allergy, Unknown, 10/02/10) GENTAMICIN (Verified Allergy, Unknown, 10/02/10) KETAMINE (Verified Allergy, Unknown, 03/29/18) LEVOFLOXACIN (Verified Allergy, Unknown, 10/02/10) PENICILLINS (Verified Allergy, Unknown, ITCH, 10/02/10) Uncoded Allergies: CONTRAST MEDIA (Adverse Reaction, Mild, MILD ITCHING AFTER CONTRAST MEDIA, 04/30/17) ROS Limited/Unobtainable: No Constitutional: Reports: no symptoms HEENT: Reports: no symptoms Cardiovascular: Reports: no symptoms Respiratory: Reports: no symptoms Gastrointestinal/Abdominal: Reports: no symptoms Neurologic/Psychiatric: Reports: no symptoms Subjective 53 YO F admitted with shortness of breath. Now pneumonia. Cover for Int Med- Dr Henley. TANJA. Objective Last Vital Signs Date Time Temp Pulse Resp B/P (MAP) Pulse Ox O2 Delivery O2 Flow Rate FiO2 05/02/18 16:00 89 05/02/18 16:00 Room Air 05/02/18 16:00 97.9 16 85/46 (59) 90 04/30/18 07:11 2.0 28 Laboratory Tests Test 05/02/18 06:20 White Blood Count 4.7 K/UL (4.8-10.8) L Red Blood Count 2.46 M/UL (4.20-5.40) L Hemoglobin 7.4 G/DL (12.0-16.0) L Hematocrit 22.3 % (37.0-47.0) L Mean Corpuscular Volume 91 FL (80-99) Mean Corpuscular Hemoglobin 30.3 PG (27.0-31.0) Mean Corpuscular Hemoglobin Concent 33.4 G/DL (32.0-36.0) Red Cell Distribution Width 15.0 % (11.6-14.8) H Platelet Count 173 K/UL (150-450) Mean Platelet Volume 8.7 FL (6.5-10.1) Neutrophils (%) (Auto) % (45.0-75.0) Lymphocytes (%) (Auto) % (20.0-45.0) Monocytes (%) (Auto) % (1.0-10.0) Eosinophils (%) (Auto) % (0.0-3.0) Basophils (%) (Auto) % (0.0-2.0) Differential Total Cells Counted 100 Neutrophils % (Manual) 63 % (45-75) Lymphocytes % (Manual) 23 % (20-45) Monocytes % (Manual) 9 % (1-10) Eosinophils % (Manual) 4 % (0-3) H Basophils % (Manual) 1 % (0-2) Band Neutrophils 0 % (0-8) Platelet Estimate Adequate Platelet Morphology Normal Anisocytosis 1+ Sodium Level 136 MMOL/L (136-145) Potassium Level 3.6 MMOL/L (3.5-5.1) Chloride Level 95 MMOL/L (98-107) L Carbon Dioxide Level 30 MMOL/L (21-32) Anion Gap 11 mmol/L (5-15) Blood Urea Nitrogen 31 mg/dL (7-18) H Creatinine 7.3 MG/DL (0.55-1.30) H Estimat Glomerular Filtration Rate 7.2 mL/min (>60) Glucose Level 105 MG/DL (74-106) Calcium Level 9.8 MG/DL (8.5-10.1) Total Bilirubin 0.6 MG/DL (0.2-1.0) Aspartate Amino Transf (AST/SGOT) 13 U/L (15-37) L Alanine Aminotransferase (ALT/SGPT) 13 U/L (12-78) Alkaline Phosphatase 333 U/L (46-116) H Pro-B-Type Natriuretic Peptide 3326 pg/mL (0-125) H Total Protein 7.1 G/DL (6.4-8.2) Albumin 2.7 G/DL (3.4-5.0) L Globulin 4.4 g/dL Albumin/Globulin Ratio 0.6 (1.0-2.7) L Intake and Output 05/01/18 05/02/18 19:00 07:00 Intake Total 360 ml 30 ml Output Total 0 ml 0 ml Balance 360 ml 30 ml Intake Oral 360 ml 30 ml Output Urine Total 0 ml 0 ml # Bowel Movements 1 1 Objective Objective GENERAL: Awake, responsive, alert HEAD AND NECK: Pupils equal and reactive to light. Extraocular movements intact. Neck was supple. No JVD. LUNGS: Fair air entry. Poor respiratory effort. No wheeze or rhonchi. Decreased air in the bases. HEART: S1 and S2. Distant heart sounds. No murmur. ABDOMEN: Soft, nondistended, and nontender. Morbidly obese. EXTREMITIES: No cyanosis, clubbing, or edema. Right femoral area PermCath as well as left upper extremity AV fistula, functional. NEUROLOGIC: Cranial nerves II through XII are grossly intact. The patient is moving all the extremities spontaneously. Gait was not assessed due to the patient's status. PSYCHIATRIC: Mood and affect are intact. Assessment/Plan Assessment/Plan Assessment/Plan Assessment/Plan 1. Sepsis, most likely secondary to left upper lobe and, to a lesser extent, medial right lower lobe most likely representing multifocal pneumonia. 2. Hypotension, possible septic shock. 3. Pancytopenia with severe thrombocytopenia resolving. 4. End-stage renal disease, on hemodialysis. 5. Altered mental status, most likely toxic metabolic encephalopathy as a result of infection as well as uremia. 6. Anemia of chronic kidney disease. 7. Morbid obesity. 8. Bradycardia. 9. Diarrhea 10. Abdominal pain. PLAN: In TANJA. follow up laboratory and cultures. Dr. Fredrick Conner from Nephrology consult; Hemodialysis 04/30/18. Dr. Mcbride from ID consult. Discussed with the family member, brother at the bedside. Abx:Meropenem, doxycycline and vfend per ID Code status is Full Code. DVT prophylaxis: heparin subcutaneous. continue Dopamine Drip CT of chest noted. Cortisol level Pending. C. Diff neg. Send stool for repeat Continue dopamine See GI consult; KUB=no obstruction advance diet Edward Harrell MD May 02, 2018 18:24
--- NOTE | 2018-05-02 19:16 | NUR ---
HAND-OFF: Report given to Candis MÁRQUEZ.
--- NOTE | 2018-05-02 19:17 | NUR ---
NURSE NOTES: Bedside report received from WILLI Skinner. AOx4, able to make needs knows. Currently receiving dialysis; tolerating well, VSS, sys >80 per MD order. playground monitor showing NSR. Sating well on RA. Dinner at bedside. Skin is clean and dry, pt refuses PM bath. R/femoral permacath noted. Labs OK per RN, MD aware. Pt refused blood transfusion today. Order to transfer to med surg pending bed availability. Bed is locked in lowest position, call lopez within reach, side rails x3. Will continue to monitor and follow plan of care.
[2018-05-02] MEDS: Dyna-Hex 2% Top Sol 2oz TOPIC SCH (20:00)
[2018-05-02] MEDS: Miralax 17gm pkt ORAL SCH (21:14)
[2018-05-03] VITALS: BP 91/50
--- NOTE | 2018-05-03 | NUR ---
TRANSFER TO FLOOR: Patient transferred to [facility], per Dr. Schmidt. Report given to WILLI Hart. Belongings and medications given to receiving nurse. Family and or S/O informed of transfer. Patient is currently stable at this time.
--- NOTE | 2018-05-03 00:38 | NUR ---
NURSE NOTES: Received patient from [id number], report given by Candis MÁRQUEZ, patient is in bed, asleep, but responsive to verbal and tactile stimuli, patient is resting, tired from dialysis treatment, belongings been accounted for, no acute distress noted or reported, per Candis MÁRQUEZ/MD dopamine drip do not admin but also don't discontinue it, keep b/p above 80. Bed is in low position, locked and alarm is on, call light is within reach, will continue to monitor for safety and comfort.
--- NOTE | 2018-05-03 01:04 | NUR ---
NURSE NOTES: BP 69/31, CN is aware, patient is asleep but easily arousable, will continue to monitor.
[2018-05-03] MEDS ORDERED: DOPamine 400mg/250ml 250 ML IV SCH (02:00)
--- NOTE | 2018-05-03 02:20 | NUR ---
NURSE NOTES: BP is 68/31, CN is aware, patient is asleep but easily arousable, responsive. Will continue to monitor.
--- NOTE | 2018-05-03 03:02 | NUR ---
NURSE NOTES: Found other nursing orders to keep patient SBP above 80. checked BP. Current Bp 81/46. Patient is awake, alert and verbally responsive.
[2018-05-03 04:26] VITALS: BP 90/51
[2018-05-03] MEDS: Midodrine 10mg tab ORAL SCH ×3 (05:51→22:32)
--- NOTE | 2018-05-03 07:26 | NUR ---
HAND-OFF: Report given to Kj MÁRQUEZ.
--- NOTE | 2018-05-03 07:33 | NUR ---
NURSE NOTES: Patient alert x4, in room, no sign of distress and shortness of breath. No sign of chest pain. Patient's blood pressure is usually low, anything less than 80 for systolic BP, MD Henley should be notified, director industrial nursing, Juan notified. Patient had Right Femoral chath. Left IV shunt, No blood BP and No IV on the left, sign posted at the bed side. Patients Hemoglobin 7.4 and pt refused blood transfusion, according to the report. skin intact. Patient ambulatory with assist. Call light within reach. Will keep monitoring.
[2018-05-03 08:00] VITALS: BP 90/40
[2018-05-03] MEDS: Aspirin Baby 81mg ORAL SCH (08:37)
[2018-05-03] MEDS: Bisacodyl EC 5mg tab ORAL SCH ×2 (08:37→17:54)
[2018-05-03] MEDS: Citalopram Hydrobromide 10mg Tab ORAL SCH (08:37)
[2018-05-03] MEDS: Heparin 5000 units/ml inj SUBQ SCH ×2 (08:38→22:38)
[2018-05-03 09:20] LABS: HEMATOCRIT 24.6 % (37.0-47.0); HEMOGLOBIN 7.6 G/DL (12.0-16.0); MEAN CORPUSCULAR VOLUME 94 FL (80-99); PLATELET COUNT 215 K/UL (150-450); RED BLOOD COUNT 2.62 M/UL (4.20-5.40); WHITE BLOOD COUNT 4.8 K/UL (4.8-10.8)
[2018-05-03 09:44] LABS: ALANINE AMINOTRANSFERASE 14 U/L (12-78); ALBUMIN 2.8 G/DL (3.4-5.0); ALBUMIN/GLOBULIN RATIO 0.6 (1.0-2.7); ALKALINE PHOSPHATASE 321 U/L (46-116); ASPARTATE AMINO TRANSFERASE 14 U/L (15-37); BILIRUBIN,TOTAL 0.6 MG/DL (0.2-1.0); BLOOD UREA NITROGEN 19 mg/dL (7-18); CHLORIDE 97 MMOL/L (98-107); CREATININE 5.8 MG/DL (0.55-1.30); POTASSIUM 3.5 MMOL/L (3.5-5.1); SODIUM 139 MMOL/L (136-145)
[2018-05-03 09:52] LABS: CARBON DIOXIDE 28 MMOL/L (21-32)
--- NOTE | 2018-05-03 10:49 | Cardiac Electrophysiology PN ---
Assessment/Plan Assessment/Plan 1. Troponin leak due to renal failure. Levels low and flat. No chest pain. 2. S/P Septic shock. Continue midodrine 10 mg tid 3. Bradycardia. Resolved. 4. Anterior T-wave inversion. No chest pain. EF 60% 5. End-stage renal disease, on hemodialysis, per Dr. Conner. 6. Diarrhea C. Diff was negative 7. Severe anemia. Refusing transfusion DW RN Subjective Subjective Alert in NAD. BP stable. Objective Last 24 Hour Vital Signs Date Time Temp Pulse Resp B/P (MAP) Pulse Ox O2 Delivery O2 Flow Rate FiO2 05/03/18 09:00 Room Air 05/03/18 08:00 97.2 86 20 90/40 (57) 92 05/03/18 04:26 98.1 85 20 90/51 (64) 94 05/03/18 00:00 97.3 86 18 91/50 (64) 93 05/03/18 00:00 Room Air 05/02/18 23:47 77 05/02/18 20:00 Room Air 05/02/18 20:00 97.5 77 18 92/51 (65) 93 05/02/18 20:00 76 05/02/18 18:44 Room Air 05/02/18 16:00 89 05/02/18 16:00 Room Air 05/02/18 16:00 97.9 83 16 85/46 (59) 90 05/02/18 12:00 74 05/02/18 12:00 Room Air 05/02/18 12:00 97.7 85 20 98/44 (62) 100 Intake and Output 05/02/18 05/03/18 19:00 07:00 Intake Total 0 ml Output Total 0 ml Balance 0 ml 0 ml Other 0 ml Output Urine Total 0 ml # Bowel Movements 1 1 Laboratory Tests Test 05/03/18 09:00 White Blood Count 4.8 K/UL (4.8-10.8) Red Blood Count 2.62 M/UL (4.20-5.40) L Hemoglobin 7.6 G/DL (12.0-16.0) L Hematocrit 24.6 % (37.0-47.0) L Mean Corpuscular Volume 94 FL (80-99) Mean Corpuscular Hemoglobin 29.1 PG (27.0-31.0) Mean Corpuscular Hemoglobin Concent 30.9 G/DL (32.0-36.0) L Red Cell Distribution Width 15.0 % (11.6-14.8) H Platelet Count 215 K/UL (150-450) Mean Platelet Volume 8.2 FL (6.5-10.1) Neutrophils (%) (Auto) % (45.0-75.0) Lymphocytes (%) (Auto) % (20.0-45.0) Monocytes (%) (Auto) % (1.0-10.0) Eosinophils (%) (Auto) % (0.0-3.0) Basophils (%) (Auto) % (0.0-2.0) Differential Total Cells Counted 100 Neutrophils % (Manual) 69 % (45-75) Lymphocytes % (Manual) 17 % (20-45) L Monocytes % (Manual) 9 % (1-10) Eosinophils % (Manual) 5 % (0-3) H Basophils % (Manual) 0 % (0-2) Band Neutrophils 0 % (0-8) Platelet Estimate Adequate Platelet Morphology Normal Hypochromasia 1+ Anisocytosis 1+ Erythrocyte Sedimentation Rate 129 MM/HR (0-30) H Sodium Level 139 MMOL/L (136-145) Potassium Level 3.5 MMOL/L (3.5-5.1) Chloride Level 97 MMOL/L (98-107) L Carbon Dioxide Level 28 MMOL/L (21-32) Blood Urea Nitrogen 19 mg/dL (7-18) H Creatinine 5.8 MG/DL (0.55-1.30) H Estimat Glomerular Filtration Rate 9.2 mL/min (>60) Glucose Level 108 MG/DL (74-106) H Calcium Level 10.0 MG/DL (8.5-10.1) Phosphorus Level 3.0 MG/DL (2.5-4.9) Magnesium Level 2.1 MG/DL (1.8-2.4) Total Bilirubin 0.6 MG/DL (0.2-1.0) Aspartate Amino Transf (AST/SGOT) 14 U/L (15-37) L Alanine Aminotransferase (ALT/SGPT) 14 U/L (12-78) Alkaline Phosphatase 321 U/L (46-116) H C-Reactive Protein, Quantitative 16.2 mg/dL (0.00-0.90) H Total Protein 7.6 G/DL (6.4-8.2) Albumin 2.8 G/DL (3.4-5.0) L Globulin 4.8 g/dL Albumin/Globulin Ratio 0.6 (1.0-2.7) L Objective HEAD AND NECK: No JVD. LUNGS: Decreased breath sounds. CARDIOVASCULAR: Regular S1 and S2 no GRM ABDOMEN: Soft. EXTREMITIES: No edema Tc Liang MD May 03, 2018 10:49
[2018-05-03 12:00] VITALS: BP 104/72
--- NOTE | 2018-05-03 12:31 | Nephrology Progress Note ---
Assessment/Plan Problem List: (1) ESRD (end stage renal disease) on dialysis (2) Hypotension (3) Anemia of renal disease (4) Metabolic encephalopathy (5) Pneumonia Assessment ESRD on HD- HypoThyroidism- Periodic Hypotension- encephalopathic , metabolic- Plan off dopamine dialysis next 05/04 consider transfusion as needed Reglan for vomiting recheck serum cortisol level- noted add asa and isordil for rising Troponin add prn imodium for loose bm per orders midodrine per consultants antibiotics for pneumonia Subjective ROS Limited/Unobtainable: No Constitutional: Reports: malaise Objective Objective Last 24 Hour Vital Signs Date Time Temp Pulse Resp B/P (MAP) Pulse Ox O2 Delivery O2 Flow Rate FiO2 05/03/18 12:00 97.7 100 20 104/72 (83) 95 05/03/18 09:00 Room Air 05/03/18 08:00 97.2 86 20 90/40 (57) 92 05/03/18 04:26 98.1 85 20 90/51 (64) 94 05/03/18 00:00 97.3 86 18 91/50 (64) 93 05/03/18 00:00 Room Air 05/02/18 23:47 77 05/02/18 20:00 Room Air 05/02/18 20:00 97.5 77 18 92/51 (65) 93 05/02/18 20:00 76 05/02/18 18:44 Room Air 05/02/18 16:00 89 05/02/18 16:00 Room Air 05/02/18 16:00 97.9 83 16 85/46 (59) 90 Intake and Output 05/02/18 05/03/18 19:00 07:00 Intake Total 0 ml Output Total 0 ml Balance 0 ml 0 ml Other 0 ml Output Urine Total 0 ml # Bowel Movements 1 1 Laboratory Tests 05/03/18 09:00: White Blood Count 4.8, Red Blood Count 2.62L, Hemoglobin 7.6L, Hematocrit 24.6L , Mean Corpuscular Volume 94, Mean Corpuscular Hemoglobin 29.1, Mean Corpuscular Hemoglobin Concent 30.9L, Red Cell Distribution Width 15.0H, Platelet Count 215, Mean Platelet Volume 8.2, Neutrophils (%) (Auto) , Lymphocytes (%) (Auto) , Monocytes (%) (Auto) , Eosinophils (%) (Auto) , Basophils (%) (Auto) , Differential Total Cells Counted 100, Neutrophils % ( Manual) 69, Lymphocytes % (Manual) 17L, Monocytes % (Manual) 9, Eosinophils % ( Manual) 5H, Basophils % (Manual) 0, Band Neutrophils 0, Platelet Estimate Adequate, Platelet Morphology Normal, Hypochromasia 1+, Anisocytosis 1+, Erythrocyte Sedimentation Rate 129H, Sodium Level 139, Potassium Level 3.5, Chloride Level 97L, Carbon Dioxide Level 28, Blood Urea Nitrogen 19H, Creatinine 5.8H, Estimat Glomerular Filtration Rate 9.2, Glucose Level 108H, Calcium Level 10.0, Phosphorus Level 3.0, Magnesium Level 2.1, Total Bilirubin 0.6, Aspartate Amino Transf (AST/SGOT) 14L, Alanine Aminotransferase (ALT/SGPT) 14, Alkaline Phosphatase 321H, C-Reactive Protein, Quantitative 16.2H, Total Protein 7.6, Albumin 2.8L, Globulin 4.8, Albumin/Globulin Ratio 0.6L Height (Feet): 5 Height (Inches): 6.00 Weight (Pounds): 210 General Appearance: no apparent distress Objective no change Fredrick Conner MD May 03, 2018 12:30
--- NOTE | 2018-05-03 14:04 | GI Progress Note ---
Assessment/Plan Problems: (1) Epigastric abdominal pain ICD Codes: R10.13 - Epigastric pain SNOMED: 20338101 (2) Anxiety ICD Codes: F41.9 - Anxiety disorder, unspecified SNOMED: 05089389 (3) Constipation ICD Codes: K59.00 - Constipation, unspecified SNOMED: 83637039 (4) Anemia of renal disease ICD Codes: D63.1 - Anemia in chronic kidney disease SNOMED: 288577451, 313559867 Status: stable, progressing Status Narrative Discussed with Dr. Diaz Assessment/Plan Unknown history of abdominal surgery abdominal pain resolved at this time KUB noted mainly unremarkable cdiff, stool studies both negative OB stool negative x3 on renal diet protonix daily zofran prn fu labs bowel regimen pain mgmt PT evaluation Outpatient GI procedures The patient was seen and examined at bedside and all new and available data was reviewed in the patients chart. I agree with the above findings, impression and plan. (Patient seen earlier today. Signature stamp does not reflect patient encounter time.). - Ryley Diaz MD Subjective Gastrointestinal/Abdominal: Reports: no symptoms Subjective denies abdominal pain nausea has resolved constipated Objective Last 24 Hour Vital Signs Date Time Temp Pulse Resp B/P (MAP) Pulse Ox O2 Delivery O2 Flow Rate FiO2 05/03/18 12:00 97.7 100 20 104/72 (83) 95 05/03/18 09:00 Room Air 05/03/18 08:00 97.2 86 20 90/40 (57) 92 05/03/18 04:26 98.1 85 20 90/51 (64) 94 05/03/18 00:00 97.3 86 18 91/50 (64) 93 05/03/18 00:00 Room Air 05/02/18 23:47 77 05/02/18 20:00 Room Air 05/02/18 20:00 97.5 77 18 92/51 (65) 93 05/02/18 20:00 76 05/02/18 18:44 Room Air 05/02/18 16:00 89 05/02/18 16:00 Room Air 05/02/18 16:00 97.9 83 16 85/46 (59) 90 Intake and Output 05/02/18 05/03/18 19:00 07:00 Intake Total 0 ml Output Total 0 ml Balance 0 ml 0 ml Other 0 ml Output Urine Total 0 ml # Bowel Movements 1 1 Laboratory Tests Test 05/03/18 09:00 White Blood Count 4.8 K/UL (4.8-10.8) Red Blood Count 2.62 M/UL (4.20-5.40) L Hemoglobin 7.6 G/DL (12.0-16.0) L Hematocrit 24.6 % (37.0-47.0) L Mean Corpuscular Volume 94 FL (80-99) Mean Corpuscular Hemoglobin 29.1 PG (27.0-31.0) Mean Corpuscular Hemoglobin Concent 30.9 G/DL (32.0-36.0) L Red Cell Distribution Width 15.0 % (11.6-14.8) H Platelet Count 215 K/UL (150-450) Mean Platelet Volume 8.2 FL (6.5-10.1) Neutrophils (%) (Auto) % (45.0-75.0) Lymphocytes (%) (Auto) % (20.0-45.0) Monocytes (%) (Auto) % (1.0-10.0) Eosinophils (%) (Auto) % (0.0-3.0) Basophils (%) (Auto) % (0.0-2.0) Differential Total Cells Counted 100 Neutrophils % (Manual) 69 % (45-75) Lymphocytes % (Manual) 17 % (20-45) L Monocytes % (Manual) 9 % (1-10) Eosinophils % (Manual) 5 % (0-3) H Basophils % (Manual) 0 % (0-2) Band Neutrophils 0 % (0-8) Platelet Estimate Adequate Platelet Morphology Normal Hypochromasia 1+ Anisocytosis 1+ Erythrocyte Sedimentation Rate 129 MM/HR (0-30) H Sodium Level 139 MMOL/L (136-145) Potassium Level 3.5 MMOL/L (3.5-5.1) Chloride Level 97 MMOL/L (98-107) L Carbon Dioxide Level 28 MMOL/L (21-32) Blood Urea Nitrogen 19 mg/dL (7-18) H Creatinine 5.8 MG/DL (0.55-1.30) H Estimat Glomerular Filtration Rate 9.2 mL/min (>60) Glucose Level 108 MG/DL (74-106) H Calcium Level 10.0 MG/DL (8.5-10.1) Phosphorus Level 3.0 MG/DL (2.5-4.9) Magnesium Level 2.1 MG/DL (1.8-2.4) Total Bilirubin 0.6 MG/DL (0.2-1.0) Aspartate Amino Transf (AST/SGOT) 14 U/L (15-37) L Alanine Aminotransferase (ALT/SGPT) 14 U/L (12-78) Alkaline Phosphatase 321 U/L (46-116) H C-Reactive Protein, Quantitative 16.2 mg/dL (0.00-0.90) H Total Protein 7.6 G/DL (6.4-8.2) Albumin 2.8 G/DL (3.4-5.0) L Globulin 4.8 g/dL Albumin/Globulin Ratio 0.6 (1.0-2.7) L Height (Feet): 5 Height (Inches): 6.00 Weight (Pounds): 210 General Appearance: WD/WN, no apparent distress, alert Cardiovascular: normal rate Respiratory/Chest: normal breath sounds, no respiratory distress Abdominal Exam: normal bowel sounds, non tender, soft Extremities: normal range of motion, non-tender Wm Faustin NP May 03, 2018 14:04
--- NOTE | 2018-05-03 14:29 | Pulmonology Progress Note ---
Assessment/Plan Problems: (1) Acute respiratory failure with hypoxemia (2) Septic shock (3) Pneumonia (4) ESRD (end stage renal disease) on dialysis Assessment/Plan CT scan reviewed, there is large/moderate R effusion but Left sided infiltrate has decreased dramatically. with just some small residual infiltrate hemodynamically better continue abx HD by frame table operator check electrolytes Subjective ROS Limited/Unobtainable: No Constitutional: Reports: no symptoms HEENT: Repors: no symptoms Respiratory: Reports: no symptoms Allergies: Coded Allergies: CEFAZOLIN (Verified Allergy, Unknown, 10/02/10) CIPROFLOXACIN (Verified Allergy, Unknown, 10/02/10) GENTAMICIN (Verified Allergy, Unknown, 10/02/10) KETAMINE (Verified Allergy, Unknown, 03/29/18) LEVOFLOXACIN (Verified Allergy, Unknown, 10/02/10) PENICILLINS (Verified Allergy, Unknown, ITCH, 10/02/10) Uncoded Allergies: CONTRAST MEDIA (Adverse Reaction, Mild, MILD ITCHING AFTER CONTRAST MEDIA, 04/30/17) Objective Last 24 Hour Vital Signs Date Time Temp Pulse Resp B/P (MAP) Pulse Ox O2 Delivery O2 Flow Rate FiO2 05/03/18 12:00 97.7 100 20 104/72 (83) 95 05/03/18 09:00 Room Air 05/03/18 08:00 97.2 86 20 90/40 (57) 92 05/03/18 04:26 98.1 85 20 90/51 (64) 94 05/03/18 00:00 97.3 86 18 91/50 (64) 93 05/03/18 00:00 Room Air 05/02/18 23:47 77 05/02/18 20:00 Room Air 05/02/18 20:00 97.5 77 18 92/51 (65) 93 05/02/18 20:00 76 05/02/18 18:44 Room Air 05/02/18 16:00 89 05/02/18 16:00 Room Air 05/02/18 16:00 97.9 83 16 85/46 (59) 90 Intake and Output 05/02/18 05/03/18 19:00 07:00 Intake Total 0 ml Output Total 0 ml Balance 0 ml 0 ml Other 0 ml Output Urine Total 0 ml # Bowel Movements 1 1 General Appearance: WD/WN HEENT: normocephalic, atraumatic Respiratory/Chest: chest wall non-tender, crackles/rales Cardiovascular: normal peripheral pulses, normal rate Genitourinary: normal external genitalia Skin: no lesions Neurologic/Psychiatric: cap cutter II-XII grossly normal Lymphatic: no neck adenopathy Laboratory Tests 05/03/18 09:00: White Blood Count 4.8, Red Blood Count 2.62L, Hemoglobin 7.6L, Hematocrit 24.6L , Mean Corpuscular Volume 94, Mean Corpuscular Hemoglobin 29.1, Mean Corpuscular Hemoglobin Concent 30.9L, Red Cell Distribution Width 15.0H, Platelet Count 215, Mean Platelet Volume 8.2, Neutrophils (%) (Auto) , Lymphocytes (%) (Auto) , Monocytes (%) (Auto) , Eosinophils (%) (Auto) , Basophils (%) (Auto) , Differential Total Cells Counted 100, Neutrophils % ( Manual) 69, Lymphocytes % (Manual) 17L, Monocytes % (Manual) 9, Eosinophils % ( Manual) 5H, Basophils % (Manual) 0, Band Neutrophils 0, Platelet Estimate Adequate, Platelet Morphology Normal, Hypochromasia 1+, Anisocytosis 1+, Erythrocyte Sedimentation Rate 129H, Sodium Level 139, Potassium Level 3.5, Chloride Level 97L, Carbon Dioxide Level 28, Blood Urea Nitrogen 19H, Creatinine 5.8H, Estimat Glomerular Filtration Rate 9.2, Glucose Level 108H, Calcium Level 10.0, Phosphorus Level 3.0, Magnesium Level 2.1, Total Bilirubin 0.6, Aspartate Amino Transf (AST/SGOT) 14L, Alanine Aminotransferase (ALT/SGPT) 14, Alkaline Phosphatase 321H, C-Reactive Protein, Quantitative 16.2H, Total Protein 7.6, Albumin 2.8L, Globulin 4.8, Albumin/Globulin Ratio 0.6L Current Medications Medications (Trade) Dose Ordered Sig/Marcos Route PRN Reason Start Time Stop Time Status Last Admin Dose Admin Acetaminophen (Tylenol) 650 mg Q6H PRN ORAL Mild Pain/Temp > 100.5 05/02/18 05:45 05/12/18 17:44 Albumin Human 100 ml @ 100 mls/hr QOD PRN IV with HD 05/02/18 09:00 05/30/18 08:59 Aspirin (ASA) 81 mg DAILY ORAL 05/02/18 09:00 05/17/18 08:59 05/03/18 08:37 Bisacodyl (Dulcolax) 5 mg BID ORAL 05/02/18 09:00 05/21/18 18:59 05/03/18 08:37 Chlorhexidine Gluconate (Nivia-Hex 2%) 1 applic DAILY@1999 TOPIC 05/02/18 20:00 05/13/18 19:59 05/02/18 20:00 Citalopram Hydrobromide (celeXA) 20 mg DAILY ORAL 05/02/18 09:00 05/25/18 11:59 05/03/18 08:37 Guaifenesin (Robitussin) 300 mg Q6H PRN ORAL For Cough 05/02/18 05:00 05/14/18 16:59 Heparin Sodium (Porcine) (Heparin 5000 units/ml) 5,000 units EVERY 12 HOURS SUBQ 05/02/18 09:00 05/12/18 20:59 05/03/18 08:38 Loperamide HCl (Imodium) 2 mg Q4H PRN ORAL Diarrhea 05/02/18 06:15 05/25/18 18:14 Metoclopramide HCl (Reglan) 5 mg BEFORE MEALS ORAL 05/02/18 06:30 05/28/18 11:29 05/03/18 11:40 Metoclopramide HCl (Reglan) 10 mg Q8H PRN IVP Nausea & Vomiting 05/02/18 09:45 05/28/18 09:44 Midodrine (Pro-Amatine) 10 mg Q8HR ORAL 05/02/18 06:00 05/19/18 13:59 05/03/18 13:14 Mirtazapine (Remeron) 7.5 mg BEDTIME ORAL 05/02/18 21:00 05/25/18 20:59 05/02/18 21:14 Pantoprazole (Protonix) 40 mg BID ORAL 05/02/18 09:00 05/12/18 17:59 05/03/18 08:37 Polyethylene Glycol (Miralax) 17 gm BEDTIME ORAL 05/02/18 21:00 05/21/18 20:59 05/02/18 21:14 Sevelamer Carbonate (Renvela) 2,400 mg THREE TIMES A DAY ORAL 05/02/18 09:00 05/13/18 08:59 05/03/18 12:24 Cuate Schmidt MD May 03, 2018 14:29
[2018-05-03 16:00] VITALS: BP 112/88
--- NOTE | 2018-05-03 16:17 | NUR ---
NURSE NOTES: Dialysis scheduled for patient for 05/04/18 with Byron VEGAS the dialysis nurse is aware and confirmed the schedule.
--- NOTE | 2018-05-03 17:18 | Internal Med Progress Note ---
Subjective Date of Service: May 03, 2018 Physician Name Edward Harrell Attending Physician Ash Henley MD Current Medications Medications (Trade) Dose Ordered Sig/Marcos Route PRN Reason Start Time Stop Time Status Last Admin Dose Admin Acetaminophen (Tylenol) 650 mg Q6H PRN ORAL Mild Pain/Temp > 100.5 05/02/18 05:45 05/12/18 17:44 Albumin Human 100 ml @ 100 mls/hr QOD PRN IV with HD 05/02/18 09:00 05/30/18 08:59 Aspirin (ASA) 81 mg DAILY ORAL 05/02/18 09:00 05/17/18 08:59 05/03/18 08:37 Bisacodyl (Dulcolax) 5 mg BID ORAL 05/02/18 09:00 05/21/18 18:59 05/03/18 08:37 Chlorhexidine Gluconate (Nivia-Hex 2%) 1 applic DAILY@2000 TOPIC 05/02/18 20:00 05/13/18 19:59 05/02/18 20:00 Citalopram Hydrobromide (celeXA) 20 mg DAILY ORAL 05/02/18 09:00 05/25/18 11:59 05/03/18 08:37 Guaifenesin (Robitussin) 300 mg Q6H PRN ORAL For Cough 05/02/18 05:00 05/14/18 16:59 Heparin Sodium (Porcine) (Heparin 5000 units/ml) 5,000 units EVERY 12 HOURS SUBQ 05/02/18 09:00 05/12/18 20:59 05/03/18 08:38 Loperamide HCl (Imodium) 2 mg Q4H PRN ORAL Diarrhea 05/02/18 06:15 05/25/18 18:14 Metoclopramide HCl (Reglan) 5 mg BEFORE MEALS ORAL 05/02/18 06:30 05/28/18 11:29 05/03/18 16:27 Metoclopramide HCl (Reglan) 10 mg Q8H PRN IVP Nausea & Vomiting 05/02/18 09:45 05/28/18 09:44 Midodrine (Pro-Amatine) 10 mg Q8HR ORAL 05/02/18 06:00 05/19/18 13:59 05/03/18 13:14 Mirtazapine (Remeron) 7.5 mg BEDTIME ORAL 05/02/18 21:00 05/25/18 20:59 05/02/18 21:14 Pantoprazole (Protonix) 40 mg BID ORAL 05/02/18 09:00 05/12/18 17:59 05/03/18 08:37 Polyethylene Glycol (Miralax) 17 gm BEDTIME ORAL 05/02/18 21:00 05/21/18 20:59 05/02/18 21:14 Sevelamer Carbonate (Renvela) 2,400 mg THREE TIMES A DAY ORAL 05/02/18 09:00 05/13/18 08:59 05/03/18 12:24 Allergies: Coded Allergies: CEFAZOLIN (Verified Allergy, Unknown, 10/02/10) CIPROFLOXACIN (Verified Allergy, Unknown, 10/02/10) GENTAMICIN (Verified Allergy, Unknown, 10/02/10) KETAMINE (Verified Allergy, Unknown, 03/29/18) LEVOFLOXACIN (Verified Allergy, Unknown, 10/02/10) PENICILLINS (Verified Allergy, Unknown, ITCH, 10/02/10) Uncoded Allergies: CONTRAST MEDIA (Adverse Reaction, Mild, MILD ITCHING AFTER CONTRAST MEDIA, 04/30/17) ROS Limited/Unobtainable: No Constitutional: Reports: no symptoms HEENT: Reports: no symptoms Cardiovascular: Reports: no symptoms Respiratory: Reports: no symptoms Gastrointestinal/Abdominal: Reports: no symptoms Genitourinary: Reports: no symptoms Neurologic/Psychiatric: Reports: no symptoms Subjective 53 YO F admitted with shortness of breath. Now pneumonia. Cover for Int Med- Dr Henley. Objective Last Vital Signs Date Time Temp Pulse Resp B/P (MAP) Pulse Ox O2 Delivery O2 Flow Rate FiO2 05/03/18 16:00 96.6 99 20 112/88 (96) 95 05/03/18 09:00 Room Air 04/30/18 07:11 2.0 28 Laboratory Tests Test 05/03/18 09:00 White Blood Count 4.8 K/UL (4.8-10.8) Red Blood Count 2.62 M/UL (4.20-5.40) L Hemoglobin 7.6 G/DL (12.0-16.0) L Hematocrit 24.6 % (37.0-47.0) L Mean Corpuscular Volume 94 FL (80-99) Mean Corpuscular Hemoglobin 29.1 PG (27.0-31.0) Mean Corpuscular Hemoglobin Concent 30.9 G/DL (32.0-36.0) L Red Cell Distribution Width 15.0 % (11.6-14.8) H Platelet Count 215 K/UL (150-450) Mean Platelet Volume 8.2 FL (6.5-10.1) Neutrophils (%) (Auto) % (45.0-75.0) Lymphocytes (%) (Auto) % (20.0-45.0) Monocytes (%) (Auto) % (1.0-10.0) Eosinophils (%) (Auto) % (0.0-3.0) Basophils (%) (Auto) % (0.0-2.0) Differential Total Cells Counted 100 Neutrophils % (Manual) 69 % (45-75) Lymphocytes % (Manual) 17 % (20-45) L Monocytes % (Manual) 9 % (1-10) Eosinophils % (Manual) 5 % (0-3) H Basophils % (Manual) 0 % (0-2) Band Neutrophils 0 % (0-8) Platelet Estimate Adequate Platelet Morphology Normal Hypochromasia 1+ Anisocytosis 1+ Erythrocyte Sedimentation Rate 129 MM/HR (0-30) H Sodium Level 139 MMOL/L (136-145) Potassium Level 3.5 MMOL/L (3.5-5.1) Chloride Level 97 MMOL/L (98-107) L Carbon Dioxide Level 28 MMOL/L (21-32) Blood Urea Nitrogen 19 mg/dL (7-18) H Creatinine 5.8 MG/DL (0.55-1.30) H Estimat Glomerular Filtration Rate 9.2 mL/min (>60) Glucose Level 108 MG/DL (74-106) H Calcium Level 10.0 MG/DL (8.5-10.1) Phosphorus Level 3.0 MG/DL (2.5-4.9) Magnesium Level 2.1 MG/DL (1.8-2.4) Total Bilirubin 0.6 MG/DL (0.2-1.0) Aspartate Amino Transf (AST/SGOT) 14 U/L (15-37) L Alanine Aminotransferase (ALT/SGPT) 14 U/L (12-78) Alkaline Phosphatase 321 U/L (46-116) H C-Reactive Protein, Quantitative 16.2 mg/dL (0.00-0.90) H Total Protein 7.6 G/DL (6.4-8.2) Albumin 2.8 G/DL (3.4-5.0) L Globulin 4.8 g/dL Albumin/Globulin Ratio 0.6 (1.0-2.7) L Intake and Output 05/02/18 05/03/18 19:00 07:00 Intake Total 0 ml Output Total 0 ml Balance 0 ml 0 ml Other 0 ml Output Urine Total 0 ml # Bowel Movements 1 1 Objective Objective GENERAL: Awake, responsive, alert HEAD AND NECK: Pupils equal and reactive to light. Extraocular movements intact. Neck was supple. No JVD. LUNGS: Fair air entry. Poor respiratory effort. No wheeze or rhonchi. Decreased air in the bases. HEART: S1 and S2. Distant heart sounds. No murmur. ABDOMEN: Soft, nondistended, and nontender. Morbidly obese. EXTREMITIES: No cyanosis, clubbing, or edema. Right femoral area PermCath as well as left upper extremity AV fistula, functional. NEUROLOGIC: Cranial nerves II through XII are grossly intact. The patient is moving all the extremities spontaneously. Gait was not assessed due to the patient's status. PSYCHIATRIC: Mood and affect are intact. Assessment/Plan Assessment/Plan Assessment/Plan Assessment/Plan 1. Sepsis, most likely secondary to left upper lobe and, to a lesser extent, medial right lower lobe most likely representing multifocal pneumonia. 2. Hypotension, possible septic shock. 3. Pancytopenia with severe thrombocytopenia resolving. 4. End-stage renal disease, on hemodialysis. 5. Altered mental status, most likely toxic metabolic encephalopathy as a result of infection as well as uremia. 6. Anemia of chronic kidney disease. 7. Morbid obesity. 8. Bradycardia. 9. Diarrhea 10. Abdominal pain. PLAN: follow up laboratory and cultures. Dr. Fredrick Conner from Nephrology consult; Hemodialysis 05/04/18. Dr. Mcbride from ID consult. Discussed with the family member, brother at the bedside. Abx:Meropenem, doxycycline and vfend per ID Code status is Full Code. DVT prophylaxis: heparin subcutaneous. continue Dopamine Drip CT of chest noted. Cortisol level Pending. C. Diff neg. Send stool for repeat Continue dopamine See GI consult; KUB=no obstruction advance diet Edward Harrell MD May 03, 2018 17:18
--- NOTE | 2018-05-03 19:29 | NUR ---
HAND-OFF: Report given to WILLI Jones.
[2018-05-03 20:00] VITALS: BP 88/36
[2018-05-03] MEDS: Miralax 17gm pkt ORAL SCH (21:00)
--- NOTE | 2018-05-03 21:48 | General Progress Note ---
Assessment/Plan Problem List: (1) Anxiety ICD Codes: F41.9 - Anxiety disorder, unspecified SNOMED: 24090045 (2) Panic attack ICD Codes: F41.0 - Panic disorder [episodic paroxysmal anxiety] SNOMED: 991055459 Assessment/Plan Celexa 40mg qam Remeron 7.5 mg qhs provided ro/st Subjective Neurologic/Psychiatric: Reports: anxiety, depressed, emotional problems Allergies: Coded Allergies: CEFAZOLIN (Verified Allergy, Unknown, 10/02/10) CIPROFLOXACIN (Verified Allergy, Unknown, 10/02/10) GENTAMICIN (Verified Allergy, Unknown, 10/02/10) KETAMINE (Verified Allergy, Unknown, 03/29/18) LEVOFLOXACIN (Verified Allergy, Unknown, 10/02/10) PENICILLINS (Verified Allergy, Unknown, ITCH, 10/02/10) Uncoded Allergies: CONTRAST MEDIA (Adverse Reaction, Mild, MILD ITCHING AFTER CONTRAST MEDIA, 04/30/17) Objective Last 24 Hour Vital Signs Date Time Temp Pulse Resp B/P (MAP) Pulse Ox O2 Delivery O2 Flow Rate FiO2 05/03/18 16:00 96.6 99 20 112/88 (96) 95 05/03/18 12:00 97.7 100 20 104/72 (83) 95 05/03/18 09:00 Room Air 05/03/18 08:00 97.2 86 20 90/40 (57) 92 05/03/18 04:26 98.1 85 20 90/51 (64) 94 05/03/18 00:00 97.3 86 18 91/50 (64) 93 05/03/18 00:00 Room Air 05/02/18 23:47 77 Intake and Output 05/02/18 05/03/18 19:00 07:00 Intake Total 0 ml Output Total 0 ml Balance 0 ml 0 ml Other 0 ml Output Urine Total 0 ml # Bowel Movements 1 1 Laboratory Tests 05/03/18 09:00: White Blood Count 4.8, Red Blood Count 2.62L, Hemoglobin 7.6L, Hematocrit 24.6L , Mean Corpuscular Volume 94, Mean Corpuscular Hemoglobin 29.1, Mean Corpuscular Hemoglobin Concent 30.9L, Red Cell Distribution Width 15.0H, Platelet Count 215, Mean Platelet Volume 8.2, Neutrophils (%) (Auto) , Lymphocytes (%) (Auto) , Monocytes (%) (Auto) , Eosinophils (%) (Auto) , Basophils (%) (Auto) , Differential Total Cells Counted 100, Neutrophils % ( Manual) 69, Lymphocytes % (Manual) 17L, Monocytes % (Manual) 9, Eosinophils % ( Manual) 5H, Basophils % (Manual) 0, Band Neutrophils 0, Platelet Estimate Adequate, Platelet Morphology Normal, Hypochromasia 1+, Anisocytosis 1+, Erythrocyte Sedimentation Rate 129H, Sodium Level 139, Potassium Level 3.5, Chloride Level 97L, Carbon Dioxide Level 28, Blood Urea Nitrogen 19H, Creatinine 5.8H, Estimat Glomerular Filtration Rate 9.2, Glucose Level 108H, Calcium Level 10.0, Phosphorus Level 3.0, Magnesium Level 2.1, Total Bilirubin 0.6, Aspartate Amino Transf (AST/SGOT) 14L, Alanine Aminotransferase (ALT/SGPT) 14, Alkaline Phosphatase 321H, C-Reactive Protein, Quantitative 16.2H, Total Protein 7.6, Albumin 2.8L, Globulin 4.8, Albumin/Globulin Ratio 0.6L Height (Feet): 5 Height (Inches): 6.00 Weight (Pounds): 210 General Appearance: alert, obese Neurologic: oriented x 3, responsive, depressed affect Edwin Brown MD May 03, 2018 21:48
[2018-05-03] MEDS: Dyna-Hex 2% Top Sol 2oz TOPIC SCH (22:32)
[2018-05-04] VITALS: BP_SYST 104; BP_DIAS 45; BP_DIAS 71
[2018-05-04 04:00] VITALS: BP 80/40
[2018-05-04 05:14] LABS: HEMATOCRIT 21.3 % (37.0-47.0); MEAN CORPUSCULAR VOLUME 93 FL (80-99); PLATELET COUNT 181 K/UL (150-450); RED BLOOD COUNT 2.28 M/UL (4.20-5.40); RED CELL DISTRIBUTION WIDTH 15.1 % (11.6-14.8); WHITE BLOOD COUNT 5.6 K/UL (4.8-10.8)
[2018-05-04 05:26] LABS: ANION GAP 10 mmol/L (5-15); BLOOD UREA NITROGEN 25 mg/dL (7-18); CALCIUM 9.5 MG/DL (8.5-10.1); CARBON DIOXIDE 30 MMOL/L (21-32); CHLORIDE 100 MMOL/L (98-107); CREATININE 6.8 MG/DL (0.55-1.30); POTASSIUM 3.4 MMOL/L (3.5-5.1); SODIUM 140 MMOL/L (136-145)
[2018-05-04 05:28] LABS: HEMOGLOBIN 6.8 G/DL (12.0-16.0)
[2018-05-04] MEDS: Midodrine 10mg tab ORAL SCH ×3 (05:56→22:06)
[2018-05-04] MEDS ORDERED: NS 250 ML IVPB ONE (07:30)
--- NOTE | 2018-05-04 07:44 | NUR ---
NURSE NOTES: Received report from WILLI Baires. Pt needs to be transfered to telemetry for SBP 80, per Viry Gray administering NS blous of 250ml, waiting for Tele to have a bed available. Pt is in bed, awake A/O x 4, resting, no complaints of pain, bed in lowest position, call light within reach, discussed need for blood transfusion with pt, hgb 6.8 today, pt agreed, notified Dr. Henley of transfer to Tele and asked about ordering blood transfusion.
[2018-05-04 08:00] VITALS: BP 100/39
[2018-05-04] MEDS ORDERED: Citalopram Hydrobromide 10mg Tab ORAL SCH (09:00)
[2018-05-04] MEDS: Heparin 5000 units/ml inj SUBQ SCH ×3 (09:00→20:50)
[2018-05-04] MEDS: Aspirin Baby 81mg ORAL SCH (09:57)
[2018-05-04] MEDS: Bisacodyl EC 5mg tab ORAL SCH ×2 (09:59→18:00)
--- NOTE | 2018-05-04 11:20 | NUR ---
HAND-OFF: Report given to WILLI Daniels.
--- NOTE | 2018-05-04 11:39 | Nephrology Progress Note ---
Assessment/Plan Problem List: (1) ESRD (end stage renal disease) on dialysis (2) Hypotension (3) Anemia of renal disease Assessment: worsening (4) Metabolic encephalopathy (5) Pneumonia Assessment Hgb LOW today ESRD on HD- HypoThyroidism- Periodic Hypotension- encephalopathic , metabolic- Plan back to 2E for low bp and low Hgb Transfuse today dialysis next 05/04 consider transfusion as needed Reglan for vomiting recheck serum cortisol level- noted add asa and isordil for rising Troponin add prn imodium for loose bm per orders midodrine per consultants antibiotics for pneumonia Subjective ROS Limited/Unobtainable: No Constitutional: Reports: malaise, weakness Objective Objective Last 24 Hour Vital Signs Date Time Temp Pulse Resp B/P (MAP) Pulse Ox O2 Delivery O2 Flow Rate FiO2 05/04/18 10:28 Room Air 05/04/18 08:54 Room Air 21 05/04/18 08:54 95 Room Air 21 05/04/18 08:00 97.8 83 18 100/39 (59) 94 05/04/18 06:26 97.2 05/04/18 04:00 97.2 74 18 80/40 (53) 100 05/04/18 00:00 97.7 84 17 104/71 (82) 94 05/04/18 00:00 97.7 80 16 104/45 (64) 93 05/04/18 00:00 97.7 84 17 104/71 (82) 94 05/03/18 21:00 Room Air 05/03/18 20:00 97.7 84 17 88/36 (53) 94 05/03/18 20:00 94 Room Air 21 05/03/18 20:00 Room Air 21 05/03/18 16:00 96.6 99 20 112/88 (96) 95 05/03/18 12:00 97.7 100 20 104/72 (83) 95 Intake and Output 05/03/18 05/04/18 19:00 07:00 Intake Total 480 ml Balance 480 ml Intake Oral 480 ml # Voids 3 3 # Bowel Movements 1 1 Laboratory Tests 05/04/18 04:40: White Blood Count 5.6, Red Blood Count 2.28L, Hemoglobin 6.8*L, Hematocrit 21.3L , Mean Corpuscular Volume 93, Mean Corpuscular Hemoglobin 29.8, Mean Corpuscular Hemoglobin Concent 31.9L, Red Cell Distribution Width 15.1H, Platelet Count 181, Mean Platelet Volume 9.2, Neutrophils (%) (Auto) , Lymphocytes (%) (Auto) , Monocytes (%) (Auto) , Eosinophils (%) (Auto) , Basophils (%) (Auto) , Differential Total Cells Counted 100, Neutrophils % ( Manual) 65, Lymphocytes % (Manual) 22, Monocytes % (Manual) 9, Eosinophils % ( Manual) 3, Basophils % (Manual) 1, Band Neutrophils 0, Platelet Estimate Adequate, Platelet Morphology Normal, Hypochromasia 1+, Anisocytosis 1+, Sodium Level 140, Potassium Level 3.4L, Chloride Level 100, Carbon Dioxide Level 30, Anion Gap 10, Blood Urea Nitrogen 25H, Creatinine 6.8H, Estimat Glomerular Filtration Rate 7.6, Glucose Level 103, Calcium Level 9.5 Height (Feet): 5 Height (Inches): 6.00 Weight (Pounds): 210 General Appearance: no apparent distress Cardiovascular: normal rate Respiratory/Chest: lungs clear Abdomen: soft Objective no change Fredrick Conner MD May 04, 2018 11:39
[2018-05-04 12:00] VITALS: BP 84/43
[2018-05-04] MEDS ORDERED: guaiFENesin 100mg/5ml Liq ud ORAL PRN ×3 (12:00→17:00)
[2018-05-04] MEDS ORDERED: Metoclopramide 10mg/2ml Inj IVP PRN (12:00)
--- NOTE | 2018-05-04 12:16 | Internal Med Progress Note ---
Subjective Date of Service: May 04, 2018 Physician Name Edward Harrell Attending Physician Ash Henley MD Current Medications Medications (Trade) Dose Ordered Sig/Marcos Route PRN Reason Start Time Stop Time Status Last Admin Dose Admin Acetaminophen (Tylenol) 650 mg Q6H PRN ORAL Mild Pain/Temp > 100.5 05/04/18 12:00 05/12/18 11:59 Aspirin (ASA) 81 mg DAILY ORAL 05/05/18 09:00 05/17/18 08:59 Bisacodyl (Dulcolax) 5 mg BID ORAL 05/04/18 18:00 05/21/18 18:59 Chlorhexidine Gluconate (Nivia-Hex 2%) 1 applic DAILY@1999 TOPIC 05/04/18 20:00 05/13/18 19:59 Citalopram Hydrobromide (celeXA) 40 mg DAILY ORAL 05/05/18 09:00 06/03/18 08:59 Guaifenesin (Robitussin) 300 mg Q6H PRN ORAL For Cough 05/04/18 12:00 05/14/18 11:59 Heparin Sodium (Porcine) (Heparin 5000 units/ml) 5,000 units EVERY 12 HOURS SUBQ 05/04/18 12:30 05/12/18 12:29 Loperamide HCl (Imodium) 2 mg Q4H PRN ORAL Diarrhea 05/04/18 12:00 05/25/18 11:59 Metoclopramide HCl (Reglan) 5 mg BEFORE MEALS ORAL 05/04/18 12:00 05/28/18 11:59 Metoclopramide HCl (Reglan) 10 mg Q8H PRN IVP Nausea & Vomiting 05/04/18 12:00 05/28/18 11:59 Midodrine (Pro-Amatine) 10 mg Q8HR ORAL 05/04/18 14:00 05/19/18 13:59 Mirtazapine (Remeron) 7.5 mg BEDTIME ORAL 05/04/18 21:00 05/25/18 20:59 Pantoprazole (Protonix) 40 mg BIAC ORAL 05/04/18 16:30 06/03/18 16:29 Polyethylene Glycol (Miralax) 17 gm BEDTIME ORAL 05/04/18 21:00 05/21/18 20:59 Sevelamer Carbonate (Renvela) 2,400 mg THREE TIMES A DAY ORAL 05/04/18 13:00 05/13/18 08:59 Allergies: Coded Allergies: CEFAZOLIN (Verified Allergy, Unknown, 10/02/10) CIPROFLOXACIN (Verified Allergy, Unknown, 10/02/10) GENTAMICIN (Verified Allergy, Unknown, 10/02/10) KETAMINE (Verified Allergy, Unknown, 03/29/18) LEVOFLOXACIN (Verified Allergy, Unknown, 10/02/10) PENICILLINS (Verified Allergy, Unknown, ITCH, 10/02/10) Uncoded Allergies: CONTRAST MEDIA (Adverse Reaction, Mild, MILD ITCHING AFTER CONTRAST MEDIA, 04/30/17) ROS Limited/Unobtainable: No Constitutional: Reports: no symptoms HEENT: Reports: no symptoms Cardiovascular: Reports: no symptoms Respiratory: Reports: no symptoms Gastrointestinal/Abdominal: Reports: no symptoms Genitourinary: Reports: no symptoms Neurologic/Psychiatric: Reports: no symptoms Subjective 53 YO F admitted with shortness of breath. Now pneumonia. Cover for Int Med- Dr Henley. Hypotensive today-transferred to tele. Anemia pending transfusion and EGD/Colonoscopy Objective Last Vital Signs Date Time Temp Pulse Resp B/P (MAP) Pulse Ox O2 Delivery O2 Flow Rate FiO2 05/04/18 10:28 Room Air 05/04/18 08:54 21 05/04/18 08:54 95 05/04/18 08:00 97.8 83 18 100/39 (59) 04/30/18 07:11 2.0 Laboratory Tests Test 05/04/18 04:40 White Blood Count 5.6 K/UL (4.8-10.8) Red Blood Count 2.28 M/UL (4.20-5.40) L Hemoglobin 6.8 G/DL (12.0-16.0) *L Hematocrit 21.3 % (37.0-47.0) L Mean Corpuscular Volume 93 FL (80-99) Mean Corpuscular Hemoglobin 29.8 PG (27.0-31.0) Mean Corpuscular Hemoglobin Concent 31.9 G/DL (32.0-36.0) L Red Cell Distribution Width 15.1 % (11.6-14.8) H Platelet Count 181 K/UL (150-450) Mean Platelet Volume 9.2 FL (6.5-10.1) Neutrophils (%) (Auto) % (45.0-75.0) Lymphocytes (%) (Auto) % (20.0-45.0) Monocytes (%) (Auto) % (1.0-10.0) Eosinophils (%) (Auto) % (0.0-3.0) Basophils (%) (Auto) % (0.0-2.0) Differential Total Cells Counted 100 Neutrophils % (Manual) 65 % (45-75) Lymphocytes % (Manual) 22 % (20-45) Monocytes % (Manual) 9 % (1-10) Eosinophils % (Manual) 3 % (0-3) Basophils % (Manual) 1 % (0-2) Band Neutrophils 0 % (0-8) Platelet Estimate Adequate Platelet Morphology Normal Hypochromasia 1+ Anisocytosis 1+ Sodium Level 140 MMOL/L (136-145) Potassium Level 3.4 MMOL/L (3.5-5.1) L Chloride Level 100 MMOL/L (98-107) Carbon Dioxide Level 30 MMOL/L (21-32) Anion Gap 10 mmol/L (5-15) Blood Urea Nitrogen 25 mg/dL (7-18) H Creatinine 6.8 MG/DL (0.55-1.30) H Estimat Glomerular Filtration Rate 7.6 mL/min (>60) Glucose Level 103 MG/DL (74-106) Calcium Level 9.5 MG/DL (8.5-10.1) Intake and Output 05/03/18 05/04/18 19:00 07:00 Intake Total 480 ml Balance 480 ml Intake Oral 480 ml # Voids 3 3 # Bowel Movements 1 1 Objective Objective GENERAL: Awake, responsive, alert HEAD AND NECK: Pupils equal and reactive to light. Extraocular movements intact. Neck was supple. No JVD. LUNGS: Fair air entry. Poor respiratory effort. No wheeze or rhonchi. Decreased air in the bases. HEART: S1 and S2. Distant heart sounds. No murmur. ABDOMEN: Soft, nondistended, and nontender. Morbidly obese. EXTREMITIES: No cyanosis, clubbing, or edema. Right femoral area PermCath as well as left upper extremity AV fistula, functional. NEUROLOGIC: Cranial nerves II through XII are grossly intact. The patient is moving all the extremities spontaneously. Gait was not assessed due to the patient's status. PSYCHIATRIC: Mood and affect are intact. Assessment/Plan Assessment/Plan Assessment/Plan Assessment/Plan 1. Sepsis, most likely secondary to left upper lobe and, to a lesser extent, medial right lower lobe most likely representing multifocal pneumonia. 2. Hypotension, possible septic shock. 3. Pancytopenia with severe thrombocytopenia resolving. 4. End-stage renal disease, on hemodialysis. 5. Altered mental status, most likely toxic metabolic encephalopathy as a result of infection as well as uremia. 6. Anemia of chronic kidney disease. 7. Morbid obesity. 8. Bradycardia. 9. Diarrhea 10. Abdominal pain. 11. Severe anemia PLAN: follow up laboratory and cultures. Dr. Fredrick Conner from Nephrology consult; Hemodialysis 05/04/18. Dr. Mcbride from ID consult. Discussed with the family member, brother at the bedside. Abx:Meropenem, doxycycline and vfend per ID Code status is Full Code. DVT prophylaxis: heparin subcutaneous. continue Dopamine Drip CT of chest noted. Cortisol level Pending. C. Diff neg. Send stool for repeat Continue dopamine See GI consult; KUB=no obstruction advance diet Transfuse 1 unit PRBC today Edward Harrell MD May 04, 2018 12:16
--- NOTE | 2018-05-04 13:27 | Infectious Diseases Prog Note ---
Assessment/Plan Assessment/Plan ASSESSMENT: 1. sepsis, shock, pneumonia, CT chest noted, pressors, bradycardia, sputum culture with mold, ? aspergillus pna, f/u CT noted, some sob today, no fevers or leukocytosis, no secretions - s/p 14 day course meropenem and doxycycline - s/p 10 days voriconazole day # 10, held secondary to elevated TB which has now normalized - d/w microbiology and ID of mold pending (send out), await results - off pressors now - hearing better off vancomycin - check chest x-ray (sob today) - monitor chest x-ray and labs - f/u CT chest noted - check t-spot, cocci, sc, mold ID, ? thoracentesis needed, ? bronchoscopy - hesitate to restart antibiotic/anti-fungal tx since has had full course of anti-bacterial tx and mold can be colonizer - will d/w Dr. Schmidt - d/w family 2. End-stage renal disease, hemodialysis, has a right femoral line hemodialysis line and also left arm graft. 3. History of fistula in the past. 4. History of PermCath in the past 5. Anemia of chronic disease. 6. Hypertension - Blood pressure treatment per primary. 7. No history of diabetes mentioned. 8. Chronic kidney disease. 9. Obesity. 10. History of cholecystectomy. 11. History of parathyroidectomy. 12. History of carpal tunnel syndrome. 13. History of fractures, ORIF. 14. Past medical history noted. 15. Multiple drug allergies including cefazolin, Cipro, contrast media, gentamicin, ketamine, Levaquin and penicillin, she seems to tolerate carbapenems. 16. Social history is negative . 17. Family history is noncontributory. 18. MAR was noted. 19. Case discussed with RN. 20. Continue treatment per primary consultants. 21. Notes were noted and orders were entered. Subjective Constitutional: Reports: fatigue; Denies: fever HEENT: Denies: congestion Respiratory: Reports: shortness of breath, other - patient says having difficulty breathing Cardiovascular: Denies: chest pain Gastrointestinal/Abdominal: Denies: nausea, vomiting, diarrhea Genitourinary: Reports: other - no mckinney Neurologic: Denies: headache Psychiatric: Denies: depression Skin: Denies: rash Hematologic: Denies: bleeding Musculoskeletal: Denies: pain Allergies: Coded Allergies: CEFAZOLIN (Verified Allergy, Unknown, 10/02/10) CIPROFLOXACIN (Verified Allergy, Unknown, 10/02/10) GENTAMICIN (Verified Allergy, Unknown, 10/02/10) KETAMINE (Verified Allergy, Unknown, 03/29/18) LEVOFLOXACIN (Verified Allergy, Unknown, 10/02/10) PENICILLINS (Verified Allergy, Unknown, ITCH, 10/02/10) Uncoded Allergies: CONTRAST MEDIA (Adverse Reaction, Mild, MILD ITCHING AFTER CONTRAST MEDIA, 04/30/17) Objective Vital Signs Last 24 Hour Vital Signs Date Time Temp Pulse Resp B/P (MAP) Pulse Ox O2 Delivery O2 Flow Rate FiO2 05/04/18 10:28 Room Air 05/04/18 08:54 Room Air 21 05/04/18 08:54 95 Room Air 21 05/04/18 08:00 97.8 83 18 100/39 (59) 94 05/04/18 06:26 97.2 05/04/18 04:00 97.2 74 18 80/40 (53) 100 05/04/18 00:00 97.7 84 17 104/71 (82) 94 05/04/18 00:00 97.7 80 16 104/45 (64) 93 05/04/18 00:00 97.7 84 17 104/71 (82) 94 05/03/18 21:00 Room Air 05/03/18 20:00 97.7 84 17 88/36 (53) 94 05/03/18 20:00 94 Room Air 21 05/03/18 20:00 Room Air 21 05/03/18 16:00 96.6 99 20 112/88 (96) 95 Height (Feet): 5 Height (Inches): 6.00 Weight (Pounds): 210 General Appearance: no acute distress, other - patient says sob but no sig sob noted, no sig secretions noted HEENT: normocephalic, atraumatic, anicteric, mucous membranes moist, EOMI, pharynx normal, supple, no JVD Respiratory/Chest: no accessory muscle use, crackles/rales, rhonchi - bilaterally, other Cardiovascular: normal rate, regular rhythm Abdomen: soft, non tender, no organomegaly, non distended Genitourinary: other - no mckinney Extremities: no cyanosis Skin: no rash Neurologic/Psychiatric: food consultant II-XII grossly normal, alert, oriented x 3, responsive Lymphatic: no neck adenopathy Musculoskeletal: no effusion Objective CT Chest: IMPRESSION: * Dense consolidations with air bronchograms noted in the left upper lobe and, to a lesser extent, medial right lower lobe most likely representing multifocal pneumonia. Follow-up after appropriate treatment recommended to ensure resolution. * Patchy opacities in the right upper lobe are also likely infectious in etiology. These obscure the previously described lung nodule. Attention to this area on follow-up recommended. * Prominent hilar and mediastinal lymph nodes, possibly reactive in etiology. * Small bilateral pleural effusions. * Large hiatal hernia * Dialysis catheter tip in the right atrium. Evidence of central venous occlusion with multiple collateral veins noted in the mediastinum. * Nonspecific calcifications in the bilateral breasts are correlation with most recent mammogram recommended. If none performed recently, then recommend follow- up screening mammogram. * Findings suggestive of renal osteodystrophy Chest x-ray - 04/14 - Findings: Heart size and mediastinal contours stable. Femoral approach dialysis catheter is again noted. Multiple surgical clips noted in the bilateral axilla. Portions of a stents again visualized in the right axilla. Multiple surgical clips noted in the right arm. Knife Edger opacities in the left midlung peripherally. No evidence of pneumothorax. There is patchy opacity at the right base. Osseous structures stable. Calcifications in the right breast noted. Impression: Left-sided airspace opacities most concerning for pneumonia. There is slight interval increased density compared to prior exam which may be technical. 04/16/18 - chest x-ray - IMPRESSION: 1. Bilateral airspace opacities, most confluent in the left midlung field. Could be from consolidation/pneumonia. There is a broad differential. Follow to ensure resolution and exclude other mimics. 2. Suspect bilateral pleural effusions. 3. Vascular congestion. 04/20/18: Comparison: 04/16/2018 A single view chest radiograph was obtained. Findings: Interstitial edema again suspected mild in degree, slightly improved from the prior study. Heart size is stable. Large bore catheter projected over the right atrium entering from the IVC. Pleural-based density lateral aspect of the left lung again noted. Extensive surgical clips in the thoracic inlet and left axillary region noted. IMPRESSION: Some improvement in the initial edema. Other findings stable Chest x-ray - 04/23/18 - COMPARISON: Chest x-ray dated 04/19/18 FINDINGS: Single frontal view demonstrates a normal cardiomediastinal silhouette. Surgical clips in the neck base. Status post left axillary dissection. Central venous catheter terminating in the right atrium, may be extending from a femoral approach, grossly unchanged. Stable patchy opacity in the left mid lung zone. Increasing patchy opacity in bilateral lower lung zones, right greater the left. The visualized osseous structures are within normal limits. IMPRESSION: 1. Stable patchy opacity in the left mid lung zone. Increasing patchy opacity in bilateral lower lung zones, right greater the left. 2. Stable lines and postoperative findings as outlined above. Chest x-ray - 04/26/18 - Interstitial edema has improved significantly since over the last few days. There is a mass versus infiltrate in the left midlung that persists. There is extensive surgical clips both axilla. Vascular stent right upper arm noted. Heart size is normal. IMPRESSION: Interval improvement in CHF. Mass versus infiltrate in the left midlung Chest x-ray - 04/27/18 - Comparison: 04/26/2018 Findings: Again demonstrated is lateral pleural thickening and a peripheral polygonal dense parenchymal opacity, the latter appearing slightly larger than on the previous study. There is some hazy opacity in the right upper lung which is new since the prior study. Mild generalized interstitial prominence is again demonstrated. Right arm stent, bilateral axillary surgical clips are again noted. Femoral approach dialysis catheter is again noted, tip in the high right atrium. Impression: Increased size of left lateral pulmonary parenchymal opacity. This reflects dense consolidation demonstrated on prior radiographs and CT scan, perhaps slightly worse than on the previous study. Persistent lateral pleural thickening versus fluid. Possible hazy infiltrate in the right upper lobe Other stable findings as described Chest x-ray - 05/01/18 - IMPRESSION: 1. Persistent patchy opacities at the periphery of the left midlung and in the right lung base. 2. No significant change in diffuse the increased interstitial markings, likely representing interstitial edema versus interstitial pneumonitis. 05/02/18 - CT chest; IMPRESSION: Moderate right pleural effusion and small left pleural effusion likely loculated. Suspected infiltrate left perihilar region. Basal atelectasis. Extensive vasculopathy with the calcification of central veins within the upper chest and presence of collateral vessels suggestive of cysts significant Central venous occlusive disease. Permacath noted via inferior approach. Anasarca Trace pericardial effusion Large hiatal hernia. Atrophic kidneys consistent with end-stage renal disease. Abnormal bones. Renal osteodystrophy suspected. Microbiology Date/Time Source Procedure Growth Status 04/24/18 15:15 Blood Blood Culture - Final NO GROWTH AFTER 5 DAYS Complete 04/21/18 04:00 Sputum Expectorated Gram Stain - Final Complete 04/21/18 04:00 Sputum Expectorated Sputum Culture - Final NORMAL UPPER RESPIRATORY ESTEPHANIE AT 48 ... Complete 04/19/18 02:00 Stool Stool Culture - Final NO SALMONELLA,SHIGELLA OR CAMPYLOBACT... Complete 04/12/18 12:10 Rectum - Final NO CARBAPENEM-RESISTANT ENTEROBACTERI... Complete Laboratory Tests Test 05/04/18 04:40 White Blood Count 5.6 K/UL (4.8-10.8) Red Blood Count 2.28 M/UL (4.20-5.40) L Hemoglobin 6.8 G/DL (12.0-16.0) *L Hematocrit 21.3 % (37.0-47.0) L Mean Corpuscular Volume 93 FL (80-99) Mean Corpuscular Hemoglobin 29.8 PG (27.0-31.0) Mean Corpuscular Hemoglobin Concent 31.9 G/DL (32.0-36.0) L Red Cell Distribution Width 15.1 % (11.6-14.8) H Platelet Count 181 K/UL (150-450) Mean Platelet Volume 9.2 FL (6.5-10.1) Neutrophils (%) (Auto) % (45.0-75.0) Lymphocytes (%) (Auto) % (20.0-45.0) Monocytes (%) (Auto) % (1.0-10.0) Eosinophils (%) (Auto) % (0.0-3.0) Basophils (%) (Auto) % (0.0-2.0) Differential Total Cells Counted 100 Neutrophils % (Manual) 65 % (45-75) Lymphocytes % (Manual) 22 % (20-45) Monocytes % (Manual) 9 % (1-10) Eosinophils % (Manual) 3 % (0-3) Basophils % (Manual) 1 % (0-2) Band Neutrophils 0 % (0-8) Platelet Estimate Adequate Platelet Morphology Normal Hypochromasia 1+ Anisocytosis 1+ Sodium Level 140 MMOL/L (136-145) Potassium Level 3.4 MMOL/L (3.5-5.1) L Chloride Level 100 MMOL/L (98-107) Carbon Dioxide Level 30 MMOL/L (21-32) Anion Gap 10 mmol/L (5-15) Blood Urea Nitrogen 25 mg/dL (7-18) H Creatinine 6.8 MG/DL (0.55-1.30) H Estimat Glomerular Filtration Rate 7.6 mL/min (>60) Glucose Level 103 MG/DL (74-106) Calcium Level 9.5 MG/DL (8.5-10.1) Coccidioides Antibody (Comp Fix) Pending Current Medications Medications (Trade) Dose Ordered Sig/Marcos Route PRN Reason Start Time Stop Time Status Last Admin Dose Admin Acetaminophen (Tylenol) 650 mg Q6H PRN ORAL Mild Pain/Temp > 100.5 05/04/18 12:00 05/12/18 11:59 Aspirin (ASA) 81 mg DAILY ORAL 05/05/18 09:00 05/17/18 08:59 Bisacodyl (Dulcolax) 5 mg BID ORAL 05/04/18 18:00 05/21/18 18:59 Chlorhexidine Gluconate (Nivia-Hex 2%) 1 applic DAILY@1999 TOPIC 05/04/18 20:00 05/13/18 19:59 Citalopram Hydrobromide (celeXA) 40 mg DAILY ORAL 05/05/18 09:00 06/03/18 08:59 Guaifenesin (Robitussin) 300 mg Q6H PRN ORAL For Cough 05/04/18 12:00 05/14/18 11:59 Heparin Sodium (Porcine) (Heparin 5000 units/ml) 5,000 units EVERY 12 HOURS SUBQ 05/04/18 12:30 05/12/18 12:29 Loperamide HCl (Imodium) 2 mg Q4H PRN ORAL Diarrhea 05/04/18 12:00 05/25/18 11:59 Metoclopramide HCl (Reglan) 5 mg BEFORE MEALS ORAL 05/04/18 12:00 05/28/18 11:59 05/04/18 12:16 Metoclopramide HCl (Reglan) 10 mg Q8H PRN IVP Nausea & Vomiting 05/04/18 12:00 05/28/18 11:59 Midodrine (Pro-Amatine) 10 mg Q8HR ORAL 05/04/18 14:00 05/19/18 13:59 Mirtazapine (Remeron) 7.5 mg BEDTIME ORAL 05/04/18 21:00 05/25/18 20:59 Pantoprazole (Protonix) 40 mg BIAC ORAL 05/04/18 16:30 06/03/18 16:29 Polyethylene Glycol (Miralax) 17 gm BEDTIME ORAL 05/04/18 21:00 05/21/18 20:59 Sevelamer Carbonate (Renvela) 2,400 mg THREE TIMES A DAY ORAL 05/04/18 13:00 05/13/18 08:59 05/04/18 12:16 Edgardo Mcbride MD May 04, 2018 13:27
--- NOTE | 2018-05-04 14:10 | Cardiac Electrophysiology PN ---
Assessment/Plan Assessment/Plan 1. Troponin leak due to renal failure. Levels low and flat. No chest pain. 2. S/P Septic shock. Continue midodrine 10 mg tid. Had hypotension again and was transferred to tele. Getting iv fluid and transfusion also 3. Bradycardia. Resolved. 4. Anterior T-wave inversion. No chest pain. EF 60% 5. End-stage renal disease, on hemodialysis, per Dr. Conner. 6. Diarrhea C. Diff was negative 7. Severe anemia Hb 6.8. Agreed to transfusion DW RN Subjective Subjective Transferred from [facility] to [facility] as became hypotensive again Objective Last 24 Hour Vital Signs Date Time Temp Pulse Resp B/P (MAP) Pulse Ox O2 Delivery O2 Flow Rate FiO2 05/04/18 10:28 Room Air 05/04/18 08:54 Room Air 21 05/04/18 08:54 95 Room Air 21 05/04/18 08:00 97.8 83 18 100/39 (59) 94 05/04/18 06:26 97.2 05/04/18 04:00 97.2 74 18 80/40 (53) 100 05/04/18 00:00 97.7 84 17 104/71 (82) 94 05/04/18 00:00 97.7 80 16 104/45 (64) 93 05/04/18 00:00 97.7 84 17 104/71 (82) 94 05/03/18 21:00 Room Air 05/03/18 20:00 97.7 84 17 88/36 (53) 94 05/03/18 20:00 94 Room Air 21 05/03/18 20:00 Room Air 21 05/03/18 16:00 96.6 99 20 112/88 (96) 95 Intake and Output 05/03/18 05/04/18 19:00 07:00 Intake Total 480 ml Balance 480 ml Intake Oral 480 ml # Voids 3 3 # Bowel Movements 1 1 Laboratory Tests Test 05/04/18 04:40 White Blood Count 5.6 K/UL (4.8-10.8) Red Blood Count 2.28 M/UL (4.20-5.40) L Hemoglobin 6.8 G/DL (12.0-16.0) *L Hematocrit 21.3 % (37.0-47.0) L Mean Corpuscular Volume 93 FL (80-99) Mean Corpuscular Hemoglobin 29.8 PG (27.0-31.0) Mean Corpuscular Hemoglobin Concent 31.9 G/DL (32.0-36.0) L Red Cell Distribution Width 15.1 % (11.6-14.8) H Platelet Count 181 K/UL (150-450) Mean Platelet Volume 9.2 FL (6.5-10.1) Neutrophils (%) (Auto) % (45.0-75.0) Lymphocytes (%) (Auto) % (20.0-45.0) Monocytes (%) (Auto) % (1.0-10.0) Eosinophils (%) (Auto) % (0.0-3.0) Basophils (%) (Auto) % (0.0-2.0) Differential Total Cells Counted 100 Neutrophils % (Manual) 65 % (45-75) Lymphocytes % (Manual) 22 % (20-45) Monocytes % (Manual) 9 % (1-10) Eosinophils % (Manual) 3 % (0-3) Basophils % (Manual) 1 % (0-2) Band Neutrophils 0 % (0-8) Platelet Estimate Adequate Platelet Morphology Normal Hypochromasia 1+ Anisocytosis 1+ Sodium Level 140 MMOL/L (136-145) Potassium Level 3.4 MMOL/L (3.5-5.1) L Chloride Level 100 MMOL/L (98-107) Carbon Dioxide Level 30 MMOL/L (21-32) Anion Gap 10 mmol/L (5-15) Blood Urea Nitrogen 25 mg/dL (7-18) H Creatinine 6.8 MG/DL (0.55-1.30) H Estimat Glomerular Filtration Rate 7.6 mL/min (>60) Glucose Level 103 MG/DL (74-106) Calcium Level 9.5 MG/DL (8.5-10.1) Coccidioides Antibody (Comp Fix) Pending Objective HEAD AND NECK: No JVD. LUNGS: Decreased breath sounds. CARDIOVASCULAR: Regular S1 and S2 no GRM ABDOMEN: Soft. EXTREMITIES: No edema Tc Liang MD May 04, 2018 14:10
--- NOTE | 2018-05-04 14:14 | NUR ---
NURSE NOTES: Lab called stating that upon type and cross they found that the pt had an antibody Bg and we dont carry that type here. Lab stated that they will call the [facility] (2units of RBCs) to get this blood and will be here tomorrow. Md Conner, Md Schmidt made aware. Dialysis nurse will also come in today.
[2018-05-04] MEDS ORDERED: Loperamide 2mg cap ORAL PRN ×2 (14:15)
[2018-05-04] MEDS ORDERED: D5 1/2NS 1000ml IV ONE (14:54)
[2018-05-04] MEDS ORDERED: Cathflo Alteplase 2mg Inj INJ ONE (15:00)
--- NOTE | 2018-05-04 15:22 | Diagnostic Imaging Report ---
Indication: Dyspnea Comparison: 05/02/2018 A single view chest radiograph was obtained. Findings: Patchy infiltrates noted bilaterally unchanged from the last exam. Heart is enlarged and stable. IMPRESSION: No significant change appreciated. Please refer to the CT chest 05/02/2018
--- NOTE | 2018-05-04 15:33 | GI Progress Note ---
Assessment/Plan Problems: (1) Epigastric abdominal pain ICD Codes: R10.13 - Epigastric pain SNOMED: 85638407 (2) Anxiety ICD Codes: F41.9 - Anxiety disorder, unspecified SNOMED: 12102959 (3) Constipation ICD Codes: K59.00 - Constipation, unspecified SNOMED: 59991510 (4) Anemia of renal disease ICD Codes: D63.1 - Anemia in chronic kidney disease SNOMED: 352021744, 526608417 Status: unchanged Status Narrative Discussed with Dr. Diaz Assessment/Plan Unknown history of abdominal surgery abdominal pain resolved at this time KUB noted mainly unremarkable cdiff, stool studies both negative OB stool negative x3 EGD tomorrow given severe anemia, will defer colonoscopy due to recent history within the past year of procedure. - on renal diet, n.p.o. at midnight -Hold all blood thinners protonix daily zofran prn fu labs bowel regimen pain mgmt PT evaluation The patient was seen and examined at bedside and all new and available data was reviewed in the patients chart. I agree with the above findings, impression and plan. (Patient seen earlier today. Signature stamp does not reflect patient encounter time.). - Ryley Diaz MD Subjective Gastrointestinal/Abdominal: Reports: no symptoms Subjective denies abdominal pain nausea has resolved constipated Objective Last 24 Hour Vital Signs Date Time Temp Pulse Resp B/P (MAP) Pulse Ox O2 Delivery O2 Flow Rate FiO2 05/04/18 12:00 97.7 82 18 84/43 (57) 96 05/04/18 12:00 87 05/04/18 10:28 Room Air 05/04/18 08:54 Room Air 21 05/04/18 08:54 95 Room Air 21 05/04/18 08:00 97.8 83 18 100/39 (59) 94 05/04/18 06:26 97.2 05/04/18 04:00 97.2 74 18 80/40 (53) 100 05/04/18 00:00 97.7 84 17 104/71 (82) 94 05/04/18 00:00 97.7 80 16 104/45 (64) 93 05/04/18 00:00 97.7 84 17 104/71 (82) 94 05/03/18 21:00 Room Air 05/03/18 20:00 97.7 84 17 88/36 (53) 94 05/03/18 20:00 94 Room Air 21 05/03/18 20:00 Room Air 21 05/03/18 16:00 96.6 99 20 112/88 (96) 95 Intake and Output 05/03/18 05/04/18 19:00 07:00 Intake Total 480 ml Balance 480 ml Intake Oral 480 ml # Voids 3 3 # Bowel Movements 1 1 Laboratory Tests Test 05/04/18 04:40 White Blood Count 5.6 K/UL (4.8-10.8) Red Blood Count 2.28 M/UL (4.20-5.40) L Hemoglobin 6.8 G/DL (12.0-16.0) *L Hematocrit 21.3 % (37.0-47.0) L Mean Corpuscular Volume 93 FL (80-99) Mean Corpuscular Hemoglobin 29.8 PG (27.0-31.0) Mean Corpuscular Hemoglobin Concent 31.9 G/DL (32.0-36.0) L Red Cell Distribution Width 15.1 % (11.6-14.8) H Platelet Count 181 K/UL (150-450) Mean Platelet Volume 9.2 FL (6.5-10.1) Neutrophils (%) (Auto) % (45.0-75.0) Lymphocytes (%) (Auto) % (20.0-45.0) Monocytes (%) (Auto) % (1.0-10.0) Eosinophils (%) (Auto) % (0.0-3.0) Basophils (%) (Auto) % (0.0-2.0) Differential Total Cells Counted 100 Neutrophils % (Manual) 65 % (45-75) Lymphocytes % (Manual) 22 % (20-45) Monocytes % (Manual) 9 % (1-10) Eosinophils % (Manual) 3 % (0-3) Basophils % (Manual) 1 % (0-2) Band Neutrophils 0 % (0-8) Platelet Estimate Adequate Platelet Morphology Normal Hypochromasia 1+ Anisocytosis 1+ Sodium Level 140 MMOL/L (136-145) Potassium Level 3.4 MMOL/L (3.5-5.1) L Chloride Level 100 MMOL/L (98-107) Carbon Dioxide Level 30 MMOL/L (21-32) Anion Gap 10 mmol/L (5-15) Blood Urea Nitrogen 25 mg/dL (7-18) H Creatinine 6.8 MG/DL (0.55-1.30) H Estimat Glomerular Filtration Rate 7.6 mL/min (>60) Glucose Level 103 MG/DL (74-106) Calcium Level 9.5 MG/DL (8.5-10.1) Coccidioides Antibody (Comp Fix) Pending Height (Feet): 5 Height (Inches): 6.00 Weight (Pounds): 210 General Appearance: WD/WN, no apparent distress, alert Cardiovascular: normal rate Respiratory/Chest: normal breath sounds, no respiratory distress Abdominal Exam: normal bowel sounds, non tender, soft Extremities: normal range of motion, non-tender Wm Faustin NP May 04, 2018 15:33
[2018-05-04 16:00] VITALS: BP 99/63
--- NOTE | 2018-05-04 17:52 | NUR ---
CASE MANAGEMENT: REVIEW SI: ESRD ON HD . PNA T 97.5 HR 76 RR 20 BP 84/43 SAT 96% ROOM AIR H/H 6.8/21.3 IS: ASA PO QD PROTONIX PO QD MIDODRINE PO Q8HR SEVELAMER PO TID HD PRN TELEMETRY STATUS DCP: PATIENT IS FROM HOME
[2018-05-04] MEDS ORDERED: Bisacodyl EC 5mg tab ORAL SCH ×2 (18:00)
--- NOTE | 2018-05-04 19:38 | NUR ---
HAND-OFF: Report given to mega Bill, endorsed that 2Liters out during dialysis and 2 bowel movements.
--- NOTE | 2018-05-04 19:40 | NUR ---
NURSE NOTES: Received report from WILLI Daniels. Patient awake, alert and verbally responsive. No SOB, no acute distress, denies any pain nor any discomfort at this time. AV shunt on L arm dry and intact no bleeding noted. PICC on R femoral 2 lumen patent and intact. Bed at lowest position, call light within reach. Will continue plan of care.
[2018-05-04 20:00] VITALS: BP 91/52
[2018-05-04] MEDS: Dyna-Hex 2% Top Sol 2oz TOPIC SCH (20:45)
[2018-05-04] MEDS: Miralax 17gm pkt ORAL SCH (20:50)
[2018-05-04] MEDS ORDERED: Miralax 17gm pkt ORAL SCH ×2 (21:00)
--- NOTE | 2018-05-04 21:12 | General Progress Note ---
Assessment/Plan Problem List: (1) Anxiety ICD Codes: F41.9 - Anxiety disorder, unspecified SNOMED: 71034883 (2) Panic attack ICD Codes: F41.0 - Panic disorder [episodic paroxysmal anxiety] SNOMED: 541117131 Status: stable, progressing Assessment/Plan Celexa 40mg qam Remeron 7.5 mg qhs provided ro/st Subjective Neurologic/Psychiatric: Reports: anxiety, depressed, emotional problems Allergies: Coded Allergies: CEFAZOLIN (Verified Allergy, Unknown, 10/02/10) CIPROFLOXACIN (Verified Allergy, Unknown, 10/02/10) GENTAMICIN (Verified Allergy, Unknown, 10/02/10) KETAMINE (Verified Allergy, Unknown, 03/29/18) LEVOFLOXACIN (Verified Allergy, Unknown, 10/02/10) PENICILLINS (Verified Allergy, Unknown, ITCH, 10/02/10) Uncoded Allergies: CONTRAST MEDIA (Adverse Reaction, Mild, MILD ITCHING AFTER CONTRAST MEDIA, 04/30/17) Subjective cont to be depressed and anxious doesnt participate in pt Objective Last 24 Hour Vital Signs Date Time Temp Pulse Resp B/P (MAP) Pulse Ox O2 Delivery O2 Flow Rate FiO2 05/04/18 20:00 98.2 81 20 91/52 (65) 100 05/04/18 20:00 78 05/04/18 16:37 Room Air 05/04/18 16:00 97.5 76 20 99/63 (75) 95 05/04/18 15:33 78 05/04/18 12:00 97.7 82 18 84/43 (57) 96 05/04/18 12:00 87 05/04/18 10:28 Room Air 05/04/18 08:54 Room Air 21 05/04/18 08:54 95 Room Air 21 05/04/18 08:00 97.8 83 18 100/39 (59) 94 05/04/18 06:26 97.2 05/04/18 04:00 97.2 74 18 80/40 (53) 100 05/04/18 00:00 97.7 84 17 104/71 (82) 94 05/04/18 00:00 97.7 80 16 104/45 (64) 93 05/04/18 00:00 97.7 84 17 104/71 (82) 94 Intake and Output 05/03/18 05/04/18 19:00 07:00 Intake Total 480 ml Balance 480 ml Intake Oral 480 ml # Voids 3 3 # Bowel Movements 1 1 Laboratory Tests 05/04/18 04:40: White Blood Count 5.6, Red Blood Count 2.28L, Hemoglobin 6.8*L, Hematocrit 21.3L , Mean Corpuscular Volume 93, Mean Corpuscular Hemoglobin 29.8, Mean Corpuscular Hemoglobin Concent 31.9L, Red Cell Distribution Width 15.1H, Platelet Count 181, Mean Platelet Volume 9.2, Neutrophils (%) (Auto) , Lymphocytes (%) (Auto) , Monocytes (%) (Auto) , Eosinophils (%) (Auto) , Basophils (%) (Auto) , Differential Total Cells Counted 100, Neutrophils % ( Manual) 65, Lymphocytes % (Manual) 22, Monocytes % (Manual) 9, Eosinophils % ( Manual) 3, Basophils % (Manual) 1, Band Neutrophils 0, Platelet Estimate Adequate, Platelet Morphology Normal, Hypochromasia 1+, Anisocytosis 1+, Sodium Level 140, Potassium Level 3.4L, Chloride Level 100, Carbon Dioxide Level 30, Anion Gap 10, Blood Urea Nitrogen 25H, Creatinine 6.8H, Estimat Glomerular Filtration Rate 7.6, Glucose Level 103, Calcium Level 9.5, Coccidioides Antibody (Comp Fix) [Pending], Histoplasma Mycelial Antibody [Pending], Histoplasma Antibody w Mycelial Ag [Pending], Histoplasma Antibody with Yeast Ag [Pending] Height (Feet): 5 Height (Inches): 6.00 Weight (Pounds): 210 General Appearance: alert, moderate distress, obese Neurologic: oriented x 3, responsive, depressed affect Edwin Brown MD May 04, 2018 21:12
[2018-05-05] VITALS: BP 91/42
--- NOTE | 2018-05-05 03:50 | NUR ---
NURSE NOTES: Patient asleep, breathing even and unlabored, no s/sx of pain nor any discomfort at this time. NPO starting midnight for EGD scheduled in AM. Bed at lowest position, call light within reach. Will continue to monitor.
[2018-05-05 04:00] VITALS: BP 88/43
[2018-05-05 05:44] LABS: HEMATOCRIT 20.3 % (37.0-47.0); MEAN CORPUSCULAR VOLUME 93 FL (80-99); PLATELET COUNT 178 K/UL (150-450); WHITE BLOOD COUNT 4.9 K/UL (4.8-10.8)
[2018-05-05 05:46] LABS: INR 1.1 (0.9-1.1)
[2018-05-05] MEDS: Midodrine 10mg tab ORAL SCH ×3 (06:01→20:46)
[2018-05-05 06:06] LABS: ALANINE AMINOTRANSFERASE 9 U/L (12-78); ALBUMIN 2.6 G/DL (3.4-5.0); ALBUMIN/GLOBULIN RATIO 0.6 (1.0-2.7); ALKALINE PHOSPHATASE 264 U/L (46-116); ANION GAP 6 mmol/L (5-15); ASPARTATE AMINO TRANSFERASE 12 U/L (15-37); BILIRUBIN,TOTAL 0.4 MG/DL (0.2-1.0); BLOOD UREA NITROGEN 15 mg/dL (7-18); CARBON DIOXIDE 33 MMOL/L (21-32); CHLORIDE 101 MMOL/L (98-107); CREATININE 5.1 MG/DL (0.55-1.30); PHOSPHORUS 2.4 MG/DL (2.5-4.9); POTASSIUM 3.2 MMOL/L (3.5-5.1); SODIUM 140 MMOL/L (136-145)
[2018-05-05 06:31] LABS: HEMOGLOBIN 6.5 G/DL (12.0-16.0)
--- NOTE | 2018-05-05 07:23 | NUR ---
HAND-OFF: Report given to WILLI Sun. Endorsed plan of care.
[2018-05-05 07:39] VITALS: BP 92/46
--- NOTE | 2018-05-05 08:28 | NUR ---
NURSE NOTES: Report given by Dino, this was my pt yesterday, pt in bed in low position, call light at bedside, pt Ox4 calm and cooperative, Pt NPO due to EGC this afternoon, bed alarm on, pt walks to restroom with staff assist, no heparin will be given this morning due to EGD, no s/s of distress or sob noted.
--- NOTE | 2018-05-05 08:56 | NUR ---
NURSE NOTES: Blood bank called and they stated that blood might come in this afternoon or this evening .
[2018-05-05] MEDS: Citalopram Hydrobromide 10mg Tab ORAL SCH (09:00)
[2018-05-05] MEDS: Heparin 5000 units/ml inj SUBQ SCH ×2 (09:00→20:46)
[2018-05-05] MEDS: Bisacodyl EC 5mg tab ORAL SCH ×2 (09:00→17:39)
[2018-05-05] MEDS: Aspirin Baby 81mg ORAL SCH (09:00)
[2018-05-05] MEDS ORDERED: Midazolam 2mg/2ml Inj IVP PRN (09:30)
[2018-05-05] MEDS ORDERED: DiphenhydrAMINE 50mg/ml Inj IVP PRN (09:30)
[2018-05-05] MEDS ORDERED: Atropine Inj 1mg/10ml Syr IV PRN (09:30)
[2018-05-05] MEDS ORDERED: fentaNYL 100 mcg/2 mL IV PRN (09:30)
--- NOTE | 2018-05-05 09:30 | Anethesia Preoperative Eval ---
Anesthesia Pre-op PMH/ROS General Date of Evaluation: May 05, 2018 Time of Evaluation: 09:28 Anesthesiologist: ita ASA Score: ASA 4 Mallampati Score Class I : Soft palate, uvula, fauces, pillars visible Class II: Soft palate, uvula, fauces visible Class III: Soft palate, base of uvula visible Class IV: Only hard plate visible Surgeon: davian Surgical Procedure: egd Anesthesia History: none Social History: smoking - nonsmoker Family History: no anesthesia problems Allergies: Coded Allergies: CEFAZOLIN (Verified Allergy, Unknown, 10/02/10) CIPROFLOXACIN (Verified Allergy, Unknown, 10/02/10) GENTAMICIN (Verified Allergy, Unknown, 10/02/10) KETAMINE (Verified Allergy, Unknown, 03/29/18) LEVOFLOXACIN (Verified Allergy, Unknown, 10/02/10) PENICILLINS (Verified Allergy, Unknown, ITCH, 10/02/10) Uncoded Allergies: CONTRAST MEDIA (Adverse Reaction, Mild, MILD ITCHING AFTER CONTRAST MEDIA, 04/30/17) Medications: see eMAR Patient NPO?: Yes Past Medical History Cardiovascular: Reports: HTN Pulmonary: Reports: other - dyspnea Gastrointestinal/Genitourinary: Reports: GERD, ESRD Other: obesity Anesthesia Pre-op Phys. Exam Physician Exam Last Vital Signs Date Time Temp Pulse Resp B/P (MAP) Pulse Ox O2 Delivery O2 Flow Rate FiO2 05/05/18 07:39 98.6 72 20 92/46 (61) 100 05/04/18 21:00 Room Air 05/04/18 20:40 21 04/30/18 07:11 2.0 Airway Exam MO: limited Neck: short TMD: 2fb ROM: limited Anesthesia Pre-op A/P Labs Hematology Test 05/05/18 05:00 White Blood Count 4.9 K/UL (4.8-10.8) Red Blood Count 2.20 M/UL (4.20-5.40) L Hemoglobin 6.5 G/DL (12.0-16.0) *L Hematocrit 20.3 % (37.0-47.0) L Mean Corpuscular Volume 93 FL (80-99) Mean Corpuscular Hemoglobin 29.7 PG (27.0-31.0) Mean Corpuscular Hemoglobin Concent 32.1 G/DL (32.0-36.0) Red Cell Distribution Width 15.0 % (11.6-14.8) H Platelet Count 178 K/UL (150-450) Mean Platelet Volume 9.3 FL (6.5-10.1) Neutrophils (%) (Auto) % (45.0-75.0) Lymphocytes (%) (Auto) % (20.0-45.0) Monocytes (%) (Auto) % (1.0-10.0) Eosinophils (%) (Auto) % (0.0-3.0) Basophils (%) (Auto) % (0.0-2.0) Neutrophils % (Manual) Pending Lymphocytes % (Manual) Pending Platelet Estimate Pending Platelet Morphology Pending Coagulation Test 05/05/18 05:00 Prothrombin Time 12.0 SEC (9.30-11.50) H Prothromb Time International Ratio 1.1 (0.9-1.1) Activated Partial Thromboplast Time 30 SEC (23-33) Chemistry Test 05/05/18 05:00 Sodium Level 140 MMOL/L (136-145) Potassium Level 3.2 MMOL/L (3.5-5.1) L Chloride Level 101 MMOL/L (98-107) Carbon Dioxide Level 33 MMOL/L (21-32) H Anion Gap 6 mmol/L (5-15) Blood Urea Nitrogen 15 mg/dL (7-18) Creatinine 5.1 MG/DL (0.55-1.30) H Estimat Glomerular Filtration Rate 10.7 mL/min (>60) Glucose Level 101 MG/DL (74-106) Calcium Level 9.0 MG/DL (8.5-10.1) Phosphorus Level 2.4 MG/DL (2.5-4.9) L Total Bilirubin 0.4 MG/DL (0.2-1.0) Aspartate Amino Transf (AST/SGOT) 12 U/L (15-37) L Alanine Aminotransferase (ALT/SGPT) 9 U/L (12-78) L Alkaline Phosphatase 264 U/L (46-116) H Troponin I 0.009 ng/mL (0.000-0.056) C-Reactive Protein, Quantitative 11.6 mg/dL (0.00-0.90) H Pro-B-Type Natriuretic Peptide 3476 pg/mL (0-125) H Total Protein 7.1 G/DL (6.4-8.2) Albumin 2.6 G/DL (3.4-5.0) L Globulin 4.5 g/dL Albumin/Globulin Ratio 0.6 (1.0-2.7) L Risk Assessment & Plan Assessment: asa4 Plan: mac Status Change Before Surgery: No Pre-Antibiotics Drug: Vivienne Rashid MD May 05, 2018 09:30
[2018-05-05 12:00] VITALS: BP 102/65
--- NOTE | 2018-05-05 12:19 | Pulmonology Progress Note ---
Assessment/Plan Problems: (1) Acute respiratory failure with hypoxemia (2) Septic shock (3) Pneumonia (4) ESRD (end stage renal disease) on dialysis Assessment/Plan no new complains prbc when available hemodynamically better continue abx HD by cost report clerk check electrolytes Subjective ROS Limited/Unobtainable: No Constitutional: Reports: no symptoms HEENT: Repors: no symptoms Respiratory: Reports: no symptoms Allergies: Coded Allergies: CEFAZOLIN (Verified Allergy, Unknown, 10/02/10) CIPROFLOXACIN (Verified Allergy, Unknown, 10/02/10) GENTAMICIN (Verified Allergy, Unknown, 10/02/10) KETAMINE (Verified Allergy, Unknown, 03/29/18) LEVOFLOXACIN (Verified Allergy, Unknown, 10/02/10) PENICILLINS (Verified Allergy, Unknown, ITCH, 10/02/10) Uncoded Allergies: CONTRAST MEDIA (Adverse Reaction, Mild, MILD ITCHING AFTER CONTRAST MEDIA, 04/30/17) Objective Last 24 Hour Vital Signs Date Time Temp Pulse Resp B/P (MAP) Pulse Ox O2 Delivery O2 Flow Rate FiO2 05/05/18 08:20 Room Air 05/05/18 07:56 68 05/05/18 07:39 98.6 72 20 92/46 (61) 100 05/05/18 04:00 74 05/05/18 04:00 98.6 77 20 88/43 (58) 100 05/05/18 00:00 76 05/05/18 00:00 98.6 85 20 91/42 (58) 100 05/04/18 21:00 Room Air 05/04/18 20:40 96 Room Air 21 05/04/18 20:40 Room Air 21 05/04/18 20:00 98.2 81 20 91/52 (65) 100 05/04/18 20:00 78 05/04/18 16:37 Room Air 05/04/18 16:00 97.5 76 20 99/63 (75) 95 05/04/18 15:33 78 Intake and Output 05/04/18 05/05/18 18:59 06:59 Intake Total 120 ml 240 ml Output Total 2000 ml Balance -1880 ml 240 ml Intake Oral 120 ml 240 ml Hemodialysis UF 2000 ml # Bowel Movements 2 General Appearance: WD/WN HEENT: normocephalic, atraumatic Respiratory/Chest: chest wall non-tender, lungs clear Breasts: no masses Cardiovascular: normal peripheral pulses Abdomen: normal bowel sounds, no organomegaly Genitourinary: normal external genitalia Extremities: no cyanosis Neurologic/Psychiatric: 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 grossly normal Laboratory Tests 05/05/18 05:00: White Blood Count 4.9, Red Blood Count 2.20L, Hemoglobin 6.5*L, Hematocrit 20.3L , Mean Corpuscular Volume 93, Mean Corpuscular Hemoglobin 29.7, Mean Corpuscular Hemoglobin Concent 32.1, Red Cell Distribution Width 15.0H, Platelet Count 178, Mean Platelet Volume 9.3, Neutrophils (%) (Auto) , Lymphocytes (%) (Auto) , Monocytes (%) (Auto) , Eosinophils (%) (Auto) , Basophils (%) (Auto) , Differential Total Cells Counted 100, Neutrophils % ( Manual) 63, Lymphocytes % (Manual) 22, Monocytes % (Manual) 10, Eosinophils % ( Manual) 4H, Basophils % (Manual) 1, Band Neutrophils 0, Platelet Estimate Adequate, Platelet Morphology Normal, Hypochromasia 3+, Anisocytosis 1+, Prothrombin Time 12.0H, Prothromb Time International Ratio 1.1, Activated Partial Thromboplast Time 30, Sodium Level 140, Potassium Level 3.2L, Chloride Level 101, Carbon Dioxide Level 33H, Anion Gap 6, Blood Urea Nitrogen 15, Creatinine 5.1H, Estimat Glomerular Filtration Rate 10.7, Glucose Level 101, Calcium Level 9.0, Phosphorus Level 2.4L, Total Bilirubin 0.4, Aspartate Amino Transf (AST/SGOT) 12L, Alanine Aminotransferase (ALT/SGPT) 9L, Alkaline Phosphatase 264H, Troponin I 0.009, C-Reactive Protein, Quantitative 11.6H, Pro- B-Type Natriuretic Peptide 3476H, Total Protein 7.1, Albumin 2.6L, Globulin 4.5 , Albumin/Globulin Ratio 0.6L 05/05/18 06:00: TB Test (T-Spot) [Pending], TB Test Nil Control (T-Spot) [Pending], TB Test Panel A (T-Spot) [Pending], TB Test Panel B (T-Spot) [Pending], TB Test Positive Control (T-Spot) [Pending] Current Medications Medications (Trade) Dose Ordered Sig/Marcos Route PRN Reason Start Time Stop Time Status Last Admin Dose Admin Acetaminophen (Tylenol) 650 mg Q6H PRN ORAL Mild Pain/Temp > 100.5 05/04/18 12:00 05/12/18 11:59 Al Hydroxide/Mg Hydroxide (Mylanta) 15 ml Q1H PRN ORAL gi upset 05/05/18 09:30 05/05/18 18:00 Aspirin (ASA) 81 mg DAILY ORAL 05/05/18 09:00 05/17/18 08:59 Atropine Sulfate (Atropine) 0.5 mg Q5M PRN IV bpm less than 45 05/05/18 09:30 05/05/18 18:00 Bisacodyl (Dulcolax) 5 mg BID ORAL 05/04/18 18:00 05/21/18 18:59 Chlorhexidine Gluconate (Nivia-Hex 2%) 1 applic DAILY@2000 TOPIC 05/04/18 20:00 05/13/18 19:59 05/04/18 20:45 Citalopram Hydrobromide (celeXA) 40 mg DAILY ORAL 05/05/18 09:00 06/03/18 08:59 Diphenhydramine HCl (Benadryl) 25 mg Q15M PRN IVP Itching 05/05/18 09:30 05/05/18 18:00 Fentanyl Citrate (Sublimaze 100 mcg/2 mL) 25 mcg Q10M PRN IV Moderate Pain (Pain Scale 4-6) 05/05/18 09:30 05/05/18 18:00 Guaifenesin (Robitussin) 300 mg Q6H PRN ORAL For Cough 05/04/18 12:00 05/14/18 11:59 Heparin Sodium (Porcine) (Heparin 5000 units/ml) 5,000 units EVERY 12 HOURS SUBQ 05/04/18 12:30 05/12/18 12:29 Hydralazine HCl (Apresoline) 5 mg Q30M PRN IV SBP>160 OR___/DBP>90 OR___ 05/05/18 09:30 05/05/18 18:00 Loperamide HCl (Imodium) 2 mg Q4H PRN ORAL Diarrhea 05/04/18 12:00 05/25/18 11:59 Metoclopramide HCl (Reglan) 5 mg BEFORE MEALS ORAL 05/04/18 12:00 05/28/18 11:59 05/05/18 06:01 Metoclopramide HCl (Reglan) 10 mg Q8H PRN IVP Nausea & Vomiting 05/04/18 12:00 05/28/18 11:59 Midazolam HCl (Versed 2mg/2ml vial) 1 mg Q15M PRN IVP For Anxiety 05/05/18 09:30 05/05/18 18:00 Midodrine (Pro-Amatine) 10 mg Q8HR ORAL 05/04/18 14:00 05/19/18 13:59 05/05/18 06:01 Mirtazapine (Remeron) 7.5 mg BEDTIME ORAL 05/04/18 21:00 05/25/18 20:59 05/04/18 20:46 Pantoprazole (Protonix) 40 mg BIAC ORAL 05/04/18 16:30 06/03/18 16:29 05/05/18 06:01 Polyethylene Glycol (Miralax) 17 gm BEDTIME ORAL 05/04/18 21:00 05/21/18 20:59 Sevelamer Carbonate (Renvela) 2,400 mg THREE TIMES A DAY ORAL 05/04/18 13:00 05/13/18 08:59 05/04/18 18:14 Cuate Schmidt MD May 05, 2018 12:19
--- NOTE | 2018-05-05 12:51 | GI Progress Note ---
Assessment/Plan Problems: (1) Epigastric abdominal pain ICD Codes: R10.13 - Epigastric pain SNOMED: 39323489 (2) Anxiety ICD Codes: F41.9 - Anxiety disorder, unspecified SNOMED: 10569239 (3) Constipation ICD Codes: K59.00 - Constipation, unspecified SNOMED: 90298187 (4) Anemia of renal disease ICD Codes: D63.1 - Anemia in chronic kidney disease SNOMED: 904325663, 555668367 Status: unchanged Status Narrative Discussed with Dr. Diaz. Assessment/Plan Unknown history of abdominal surgery abdominal pain resolved at this time KUB noted mainly unremarkable cdiff, stool studies both negative OB stool negative x3 patient was given food despite NPO, EGD rescheduled until tomorrow tomorrow given severe anemia, will defer colonoscopy due to recent history within the past year of procedure. - on renal diet, n.p.o. at midnight -Hold all blood thinners protonix daily zofran prn fu labs bowel regimen pain mgmt PT evaluation The patient was seen and examined at bedside and all new and available data was reviewed in the patients chart. I agree with the above findings, impression and plan. (Patient seen earlier today. Signature stamp does not reflect patient encounter time.). - Ryley Diaz MD Subjective Subjective denies abdominal pain nausea has resolved constipated Objective Last 24 Hour Vital Signs Date Time Temp Pulse Resp B/P (MAP) Pulse Ox O2 Delivery O2 Flow Rate FiO2 05/05/18 08:20 Room Air 05/05/18 07:56 68 05/05/18 07:39 98.6 72 20 92/46 (61) 100 05/05/18 04:00 74 05/05/18 04:00 98.6 77 20 88/43 (58) 100 05/05/18 00:00 76 05/05/18 00:00 98.6 85 20 91/42 (58) 100 05/04/18 21:00 Room Air 05/04/18 20:40 96 Room Air 21 05/04/18 20:40 Room Air 21 05/04/18 20:00 98.2 81 20 91/52 (65) 100 05/04/18 20:00 78 05/04/18 16:37 Room Air 05/04/18 16:00 97.5 76 20 99/63 (75) 95 05/04/18 15:33 78 Intake and Output 05/04/18 05/05/18 18:59 06:59 Intake Total 120 ml 240 ml Output Total 2000 ml Balance -1880 ml 240 ml Intake Oral 120 ml 240 ml Hemodialysis UF 2000 ml # Bowel Movements 2 Laboratory Tests Test 05/05/18 05:00 05/05/18 06:00 White Blood Count 4.9 K/UL (4.8-10.8) Red Blood Count 2.20 M/UL (4.20-5.40) L Hemoglobin 6.5 G/DL (12.0-16.0) *L Hematocrit 20.3 % (37.0-47.0) L Mean Corpuscular Volume 93 FL (80-99) Mean Corpuscular Hemoglobin 29.7 PG (27.0-31.0) Mean Corpuscular Hemoglobin Concent 32.1 G/DL (32.0-36.0) Red Cell Distribution Width 15.0 % (11.6-14.8) H Platelet Count 178 K/UL (150-450) Mean Platelet Volume 9.3 FL (6.5-10.1) Neutrophils (%) (Auto) % (45.0-75.0) Lymphocytes (%) (Auto) % (20.0-45.0) Monocytes (%) (Auto) % (1.0-10.0) Eosinophils (%) (Auto) % (0.0-3.0) Basophils (%) (Auto) % (0.0-2.0) Differential Total Cells Counted 100 Neutrophils % (Manual) 63 % (45-75) Lymphocytes % (Manual) 22 % (20-45) Monocytes % (Manual) 10 % (1-10) Eosinophils % (Manual) 4 % (0-3) H Basophils % (Manual) 1 % (0-2) Band Neutrophils 0 % (0-8) Platelet Estimate Adequate Platelet Morphology Normal Hypochromasia 3+ Anisocytosis 1+ Prothrombin Time 12.0 SEC (9.30-11.50) H Prothromb Time International Ratio 1.1 (0.9-1.1) Activated Partial Thromboplast Time 30 SEC (23-33) Sodium Level 140 MMOL/L (136-145) Potassium Level 3.2 MMOL/L (3.5-5.1) L Chloride Level 101 MMOL/L (98-107) Carbon Dioxide Level 33 MMOL/L (21-32) H Anion Gap 6 mmol/L (5-15) Blood Urea Nitrogen 15 mg/dL (7-18) Creatinine 5.1 MG/DL (0.55-1.30) H Estimat Glomerular Filtration Rate 10.7 mL/min (>60) Glucose Level 101 MG/DL (74-106) Calcium Level 9.0 MG/DL (8.5-10.1) Phosphorus Level 2.4 MG/DL (2.5-4.9) L Total Bilirubin 0.4 MG/DL (0.2-1.0) Aspartate Amino Transf (AST/SGOT) 12 U/L (15-37) L Alanine Aminotransferase (ALT/SGPT) 9 U/L (12-78) L Alkaline Phosphatase 264 U/L (46-116) H Troponin I 0.009 ng/mL (0.000-0.056) C-Reactive Protein, Quantitative 11.6 mg/dL (0.00-0.90) H Pro-B-Type Natriuretic Peptide 3476 pg/mL (0-125) H Total Protein 7.1 G/DL (6.4-8.2) Albumin 2.6 G/DL (3.4-5.0) L Globulin 4.5 g/dL Albumin/Globulin Ratio 0.6 (1.0-2.7) L TB Test (T-Spot) Pending TB Test Nil Control (T-Spot) Pending TB Test Panel A (T-Spot) Pending TB Test Panel B (T-Spot) Pending TB Test Positive Control (T-Spot) Pending Height (Feet): 5 Height (Inches): 6.00 Weight (Pounds): 211 General Appearance: WD/WN, no apparent distress, alert Cardiovascular: normal rate Respiratory/Chest: normal breath sounds, no respiratory distress Abdominal Exam: normal bowel sounds, non tender, soft Extremities: normal range of motion, non-tender Wm Faustin NP May 05, 2018 12:51
--- NOTE | 2018-05-05 13:54 | NUR ---
RD ASSESSMENT & RECOMMENDATIONS SEE CARE ACTIVITY FOR COMPLETE ASSESSMENT DAILY ESTIMATED NEEDS: Needs based on ESRD on HD, obese 66.4kg adj 25-30 kcals/kg [id number] total kcals 1.2-1.8 g protein/kg 80-120 g total protein Fluid per MD, on HD mL/kg total fluid mLs NUTRITION DIAGNOSIS: 1) Increased protein needs R/T renal dysfunction as evidenced by pt w/ ESRD on HD w/ variable PO intake at this time 2) Altered nutrition related lab values R/T renal dysfunction, pre-DM?, clinical condition as evidenced by low Na (133-> wnl), elev BNP (9287->3476), A1C=6.0, low K (3.2), low phos (2.4). CURRENT DIET:Renal, soft easy chew + Nepro BID PO DIET RECOMMENDATIONS: Liberalized diet of Low Na w/ continued variable PO intake/ texture as tolerated ADDITIONAL RECOMMENDATIONS: 1) Weights per policy/ HD pt 2) Nephrovite x1 tab daily 3) Nepro 1 tetra diana BID in b/w meals 4) HS snack (to prevent hypoglycemia in AM) 5) Monitor BGs, need for carb controlled diet -A1C=6.0 6) Hold Renvela- phos low 7) Monitor PO intake closely, rec liberalized diet for improved PO intake
--- NOTE | 2018-05-05 13:58 | NUR ---
REHAB MED PT NOTE PATIENT TRANSFERRED TO HIGHER LEVEL OF CARE. DC PT ORDER, WILL NEED RESTART ORDERS WHEN PATIENT APPROPRIATE FOR OOB ACTIVITES. THANK YOU.
--- NOTE | 2018-05-05 15:39 | Cardiac Electrophysiology PN ---
Assessment/Plan Assessment/Plan 1. Troponin leak due to renal failure. Levels low and flat. No chest pain. 2. S/P Septic shock. Continue midodrine 10 mg tid. S/P iv fluid and transfusion also 3. Bradycardia. Resolved. 4. Anterior T-wave inversion. No chest pain. EF 60% 5. End-stage renal disease, on hemodialysis, per Dr. Conner. 6. Diarrhea C. Diff was negative 7. Severe anemia Hb 6.5 DW RN Subjective Subjective On tele. BP is better. No CP or SOB Objective Last 24 Hour Vital Signs Date Time Temp Pulse Resp B/P (MAP) Pulse Ox O2 Delivery O2 Flow Rate FiO2 05/05/18 12:00 74 05/05/18 12:00 98.3 98 21 102/65 (77) 97 05/05/18 08:20 Room Air 05/05/18 07:56 68 05/05/18 07:39 98.6 72 20 92/46 (61) 100 05/05/18 04:00 74 05/05/18 04:00 98.6 77 20 88/43 (58) 100 05/05/18 00:00 76 05/05/18 00:00 98.6 85 20 91/42 (58) 100 05/04/18 21:00 Room Air 05/04/18 20:40 96 Room Air 21 05/04/18 20:40 Room Air 21 05/04/18 20:00 98.2 81 20 91/52 (65) 100 05/04/18 20:00 78 05/04/18 16:37 Room Air 05/04/18 16:00 97.5 76 20 99/63 (75) 95 05/04/18 15:33 78 Intake and Output 05/04/18 05/05/18 19:00 07:00 Intake Total 120 ml 240 ml Output Total 2000 ml Balance -1880 ml 240 ml Intake Oral 120 ml 240 ml Hemodialysis UF 2000 ml # Bowel Movements 2 Laboratory Tests Test 05/05/18 05:00 05/05/18 06:00 White Blood Count 4.9 K/UL (4.8-10.8) Red Blood Count 2.20 M/UL (4.20-5.40) L Hemoglobin 6.5 G/DL (12.0-16.0) *L Hematocrit 20.3 % (37.0-47.0) L Mean Corpuscular Volume 93 FL (80-99) Mean Corpuscular Hemoglobin 29.7 PG (27.0-31.0) Mean Corpuscular Hemoglobin Concent 32.1 G/DL (32.0-36.0) Red Cell Distribution Width 15.0 % (11.6-14.8) H Platelet Count 178 K/UL (150-450) Mean Platelet Volume 9.3 FL (6.5-10.1) Neutrophils (%) (Auto) % (45.0-75.0) Lymphocytes (%) (Auto) % (20.0-45.0) Monocytes (%) (Auto) % (1.0-10.0) Eosinophils (%) (Auto) % (0.0-3.0) Basophils (%) (Auto) % (0.0-2.0) Differential Total Cells Counted 100 Neutrophils % (Manual) 63 % (45-75) Lymphocytes % (Manual) 22 % (20-45) Monocytes % (Manual) 10 % (1-10) Eosinophils % (Manual) 4 % (0-3) H Basophils % (Manual) 1 % (0-2) Band Neutrophils 0 % (0-8) Platelet Estimate Adequate Platelet Morphology Normal Hypochromasia 3+ Anisocytosis 1+ Prothrombin Time 12.0 SEC (9.30-11.50) H Prothromb Time International Ratio 1.1 (0.9-1.1) Activated Partial Thromboplast Time 30 SEC (23-33) Sodium Level 140 MMOL/L (136-145) Potassium Level 3.2 MMOL/L (3.5-5.1) L Chloride Level 101 MMOL/L (98-107) Carbon Dioxide Level 33 MMOL/L (21-32) H Anion Gap 6 mmol/L (5-15) Blood Urea Nitrogen 15 mg/dL (7-18) Creatinine 5.1 MG/DL (0.55-1.30) H Estimat Glomerular Filtration Rate 10.7 mL/min (>60) Glucose Level 101 MG/DL (74-106) Calcium Level 9.0 MG/DL (8.5-10.1) Phosphorus Level 2.4 MG/DL (2.5-4.9) L Total Bilirubin 0.4 MG/DL (0.2-1.0) Aspartate Amino Transf (AST/SGOT) 12 U/L (15-37) L Alanine Aminotransferase (ALT/SGPT) 9 U/L (12-78) L Alkaline Phosphatase 264 U/L (46-116) H Troponin I 0.009 ng/mL (0.000-0.056) C-Reactive Protein, Quantitative 11.6 mg/dL (0.00-0.90) H Pro-B-Type Natriuretic Peptide 3476 pg/mL (0-125) H Total Protein 7.1 G/DL (6.4-8.2) Albumin 2.6 G/DL (3.4-5.0) L Globulin 4.5 g/dL Albumin/Globulin Ratio 0.6 (1.0-2.7) L TB Test (T-Spot) Pending TB Test Nil Control (T-Spot) Pending TB Test Panel A (T-Spot) Pending TB Test Panel B (T-Spot) Pending TB Test Positive Control (T-Spot) Pending Objective HEAD AND NECK: No JVD. LUNGS: Decreased breath sounds. CARDIOVASCULAR: Regular S1 and S2 no GRM ABDOMEN: Soft. EXTREMITIES: No edema Tc Liang MD May 05, 2018 15:39
[2018-05-05 16:00] VITALS: BP 112/80
--- NOTE | 2018-05-05 16:30 | NUR ---
NURSE NOTES: blood got started at 1630, vitals were on the lower limits, 2 units to be given, 1 bag of PRBC given so far.
--- NOTE | 2018-05-05 16:36 | Internal Med Progress Note ---
Subjective Date of Service: May 05, 2018 Physician Name Edward Harrell Attending Physician Ash Henlye MD Current Medications Medications (Trade) Dose Ordered Sig/Marcos Route PRN Reason Start Time Stop Time Status Last Admin Dose Admin Acetaminophen (Tylenol) 650 mg Q6H PRN ORAL Mild Pain/Temp > 100.5 05/04/18 12:00 05/12/18 11:59 Al Hydroxide/Mg Hydroxide (Mylanta) 15 ml Q1H PRN ORAL gi upset 05/05/18 09:30 05/05/18 18:00 Aspirin (ASA) 81 mg DAILY ORAL 05/05/18 09:00 05/17/18 08:59 Atropine Sulfate (Atropine) 0.5 mg Q5M PRN IV bpm less than 45 05/05/18 09:30 05/05/18 18:00 Bisacodyl (Dulcolax) 5 mg BID ORAL 05/04/18 18:00 05/21/18 18:59 Chlorhexidine Gluconate (Nivia-Hex 2%) 1 applic DAILY@2000 TOPIC 05/04/18 20:00 05/13/18 19:59 05/04/18 20:45 Citalopram Hydrobromide (celeXA) 40 mg DAILY ORAL 05/05/18 09:00 06/03/18 08:59 Diphenhydramine HCl (Benadryl) 25 mg Q15M PRN IVP Itching 05/05/18 09:30 05/05/18 18:00 Fentanyl Citrate (Sublimaze 100 mcg/2 mL) 25 mcg Q10M PRN IV Moderate Pain (Pain Scale 4-6) 05/05/18 09:30 05/05/18 18:00 Guaifenesin (Robitussin) 300 mg Q6H PRN ORAL For Cough 05/04/18 12:00 05/14/18 11:59 Heparin Sodium (Porcine) (Heparin 5000 units/ml) 5,000 units EVERY 12 HOURS SUBQ 05/04/18 12:30 05/12/18 12:29 Hydralazine HCl (Apresoline) 5 mg Q30M PRN IV SBP>160 OR___/DBP>90 OR___ 05/05/18 09:30 05/05/18 18:00 Loperamide HCl (Imodium) 2 mg Q4H PRN ORAL Diarrhea 05/04/18 12:00 05/25/18 11:59 Metoclopramide HCl (Reglan) 5 mg BEFORE MEALS ORAL 05/04/18 12:00 05/28/18 11:59 05/05/18 06:01 Metoclopramide HCl (Reglan) 10 mg Q8H PRN IVP Nausea & Vomiting 05/04/18 12:00 05/28/18 11:59 Midazolam HCl (Versed 2mg/2ml vial) 1 mg Q15M PRN IVP For Anxiety 05/05/18 09:30 05/05/18 18:00 Midodrine (Pro-Amatine) 10 mg Q8HR ORAL 05/04/18 14:00 05/19/18 13:59 05/05/18 14:46 Mirtazapine (Remeron) 7.5 mg BEDTIME ORAL 05/04/18 21:00 05/25/18 20:59 05/04/18 20:46 Pantoprazole (Protonix) 40 mg BIAC ORAL 05/04/18 16:30 06/03/18 16:29 05/05/18 06:01 Polyethylene Glycol (Miralax) 17 gm BEDTIME ORAL 05/04/18 21:00 05/21/18 20:59 Sevelamer Carbonate (Renvela) 2,400 mg THREE TIMES A DAY ORAL 05/04/18 13:00 05/13/18 08:59 05/05/18 13:09 Allergies: Coded Allergies: CEFAZOLIN (Verified Allergy, Unknown, 10/02/10) CIPROFLOXACIN (Verified Allergy, Unknown, 10/02/10) GENTAMICIN (Verified Allergy, Unknown, 10/02/10) KETAMINE (Verified Allergy, Unknown, 03/29/18) LEVOFLOXACIN (Verified Allergy, Unknown, 10/02/10) PENICILLINS (Verified Allergy, Unknown, ITCH, 10/02/10) Uncoded Allergies: CONTRAST MEDIA (Adverse Reaction, Mild, MILD ITCHING AFTER CONTRAST MEDIA, 04/30/17) ROS Limited/Unobtainable: No Constitutional: Reports: no symptoms HEENT: Reports: no symptoms Cardiovascular: Reports: no symptoms Respiratory: Reports: no symptoms Gastrointestinal/Abdominal: Reports: no symptoms Genitourinary: Reports: no symptoms Neurologic/Psychiatric: Reports: no symptoms Subjective 53 YO F admitted with shortness of breath. Now pneumonia. Cover for Int Med- Dr Henley. Hypotensive today-transferred to [facility]. Anemia pending transfusion and EGD/Colonoscopy Objective Last Vital Signs Date Time Temp Pulse Resp B/P (MAP) Pulse Ox O2 Delivery O2 Flow Rate FiO2 05/05/18 12:00 74 05/05/18 12:00 98.3 21 102/65 (77) 97 05/05/18 08:20 Room Air 05/04/18 20:40 21 04/30/18 07:11 2.0 Laboratory Tests Test 05/05/18 05:00 05/05/18 06:00 White Blood Count 4.9 K/UL (4.8-10.8) Red Blood Count 2.20 M/UL (4.20-5.40) L Hemoglobin 6.5 G/DL (12.0-16.0) *L Hematocrit 20.3 % (37.0-47.0) L Mean Corpuscular Volume 93 FL (80-99) Mean Corpuscular Hemoglobin 29.7 PG (27.0-31.0) Mean Corpuscular Hemoglobin Concent 32.1 G/DL (32.0-36.0) Red Cell Distribution Width 15.0 % (11.6-14.8) H Platelet Count 178 K/UL (150-450) Mean Platelet Volume 9.3 FL (6.5-10.1) Neutrophils (%) (Auto) % (45.0-75.0) Lymphocytes (%) (Auto) % (20.0-45.0) Monocytes (%) (Auto) % (1.0-10.0) Eosinophils (%) (Auto) % (0.0-3.0) Basophils (%) (Auto) % (0.0-2.0) Differential Total Cells Counted 100 Neutrophils % (Manual) 63 % (45-75) Lymphocytes % (Manual) 22 % (20-45) Monocytes % (Manual) 10 % (1-10) Eosinophils % (Manual) 4 % (0-3) H Basophils % (Manual) 1 % (0-2) Band Neutrophils 0 % (0-8) Platelet Estimate Adequate Platelet Morphology Normal Hypochromasia 3+ Anisocytosis 1+ Prothrombin Time 12.0 SEC (9.30-11.50) H Prothromb Time International Ratio 1.1 (0.9-1.1) Activated Partial Thromboplast Time 30 SEC (23-33) Sodium Level 140 MMOL/L (136-145) Potassium Level 3.2 MMOL/L (3.5-5.1) L Chloride Level 101 MMOL/L (98-107) Carbon Dioxide Level 33 MMOL/L (21-32) H Anion Gap 6 mmol/L (5-15) Blood Urea Nitrogen 15 mg/dL (7-18) Creatinine 5.1 MG/DL (0.55-1.30) H Estimat Glomerular Filtration Rate 10.7 mL/min (>60) Glucose Level 101 MG/DL (74-106) Calcium Level 9.0 MG/DL (8.5-10.1) Phosphorus Level 2.4 MG/DL (2.5-4.9) L Total Bilirubin 0.4 MG/DL (0.2-1.0) Aspartate Amino Transf (AST/SGOT) 12 U/L (15-37) L Alanine Aminotransferase (ALT/SGPT) 9 U/L (12-78) L Alkaline Phosphatase 264 U/L (46-116) H Troponin I 0.009 ng/mL (0.000-0.056) C-Reactive Protein, Quantitative 11.6 mg/dL (0.00-0.90) H Pro-B-Type Natriuretic Peptide 3476 pg/mL (0-125) H Total Protein 7.1 G/DL (6.4-8.2) Albumin 2.6 G/DL (3.4-5.0) L Globulin 4.5 g/dL Albumin/Globulin Ratio 0.6 (1.0-2.7) L TB Test (T-Spot) Pending TB Test Nil Control (T-Spot) Pending TB Test Panel A (T-Spot) Pending TB Test Panel B (T-Spot) Pending TB Test Positive Control (T-Spot) Pending Intake and Output 05/04/18 05/05/18 19:00 07:00 Intake Total 120 ml 240 ml Output Total 2000 ml Balance -1880 ml 240 ml Intake Oral 120 ml 240 ml Hemodialysis UF 2000 ml # Bowel Movements 2 Objective Objective GENERAL: Awake, responsive, alert HEAD AND NECK: Pupils equal and reactive to light. Extraocular movements intact. Neck was supple. No JVD. LUNGS: Fair air entry. Poor respiratory effort. No wheeze or rhonchi. Decreased air in the bases. HEART: S1 and S2. Distant heart sounds. No murmur. ABDOMEN: Soft, nondistended, and nontender. Morbidly obese. EXTREMITIES: No cyanosis, clubbing, or edema. Right femoral area PermCath as well as left upper extremity AV fistula, functional. NEUROLOGIC: Cranial nerves II through XII are grossly intact. The patient is moving all the extremities spontaneously. Gait was not assessed due to the patient's status. PSYCHIATRIC: Mood and affect are intact. Assessment/Plan Assessment/Plan Assessment/Plan Assessment/Plan 1. Sepsis, most likely secondary to left upper lobe and, to a lesser extent, medial right lower lobe most likely representing multifocal pneumonia. 2. Hypotension, possible septic shock. 3. Pancytopenia with severe thrombocytopenia resolving. 4. End-stage renal disease, on hemodialysis. 5. Altered mental status, most likely toxic metabolic encephalopathy as a result of infection as well as uremia. 6. Anemia of chronic kidney disease. 7. Morbid obesity. 8. Bradycardia. 9. Diarrhea 10. Abdominal pain. 11. Severe anemia PLAN: follow up laboratory and cultures. Dr. Fredrick Conner from Nephrology consult; Hemodialysis 05/04/18. Dr. Mcbride from ID consult. Discussed with the family member, brother at the bedside. Abx:Meropenem, doxycycline and vfend per ID Code status is Full Code. DVT prophylaxis: heparin subcutaneous. continue Dopamine Drip CT of chest noted. Cortisol level Pending. C. Diff neg. Send stool for repeat Continue dopamine See GI consult; KUB=no obstruction advance diet Transfusion 1 unit PRBC delayed until 05/05/18 Edward Harrell MD May 05, 2018 16:36
--- NOTE | 2018-05-05 17:13 | Nephrology Progress Note ---
Assessment/Plan Problem List: (1) ESRD (end stage renal disease) on dialysis (2) Hypotension (3) Anemia of renal disease Assessment: worsening (4) Metabolic encephalopathy (5) Pneumonia Assessment Hgb LOW today ESRD on HD- HypoThyroidism- Periodic Hypotension- encephalopathic , metabolic- Plan back to 2E for low bp and low Hgb Transfuse today dialysis next 05/07 consider transfusion as needed- has antibodies Reglan for vomiting recheck serum cortisol level- noted add asa and isordil for rising Troponin add prn imodium for loose bm per orders midodrine per consultants antibiotics for pneumonia Subjective ROS Limited/Unobtainable: No Constitutional: Reports: malaise, weakness Objective Objective Last 24 Hour Vital Signs Date Time Temp Pulse Resp B/P (MAP) Pulse Ox O2 Delivery O2 Flow Rate FiO2 05/05/18 12:00 74 05/05/18 12:00 98.3 98 21 102/65 (77) 97 05/05/18 08:20 Room Air 05/05/18 07:56 68 05/05/18 07:39 98.6 72 20 92/46 (61) 100 05/05/18 04:00 74 05/05/18 04:00 98.6 77 20 88/43 (58) 100 05/05/18 00:00 76 05/05/18 00:00 98.6 85 20 91/42 (58) 100 05/04/18 21:00 Room Air 05/04/18 20:40 96 Room Air 21 05/04/18 20:40 Room Air 21 05/04/18 20:00 98.2 81 20 91/52 (65) 100 05/04/18 20:00 78 Intake and Output 05/04/18 05/05/18 19:00 07:00 Intake Total 120 ml 240 ml Output Total 2000 ml Balance -1880 ml 240 ml Intake Oral 120 ml 240 ml Hemodialysis UF 2000 ml # Bowel Movements 2 Laboratory Tests 05/05/18 05:00: White Blood Count 4.9, Red Blood Count 2.20L, Hemoglobin 6.5*L, Hematocrit 20.3L , Mean Corpuscular Volume 93, Mean Corpuscular Hemoglobin 29.7, Mean Corpuscular Hemoglobin Concent 32.1, Red Cell Distribution Width 15.0H, Platelet Count 178, Mean Platelet Volume 9.3, Neutrophils (%) (Auto) , Lymphocytes (%) (Auto) , Monocytes (%) (Auto) , Eosinophils (%) (Auto) , Basophils (%) (Auto) , Differential Total Cells Counted 100, Neutrophils % ( Manual) 63, Lymphocytes % (Manual) 22, Monocytes % (Manual) 10, Eosinophils % ( Manual) 4H, Basophils % (Manual) 1, Band Neutrophils 0, Platelet Estimate Adequate, Platelet Morphology Normal, Hypochromasia 3+, Anisocytosis 1+, Prothrombin Time 12.0H, Prothromb Time International Ratio 1.1, Activated Partial Thromboplast Time 30, Sodium Level 140, Potassium Level 3.2L, Chloride Level 101, Carbon Dioxide Level 33H, Anion Gap 6, Blood Urea Nitrogen 15, Creatinine 5.1H, Estimat Glomerular Filtration Rate 10.7, Glucose Level 101, Calcium Level 9.0, Phosphorus Level 2.4L, Total Bilirubin 0.4, Aspartate Amino Transf (AST/SGOT) 12L, Alanine Aminotransferase (ALT/SGPT) 9L, Alkaline Phosphatase 264H, Troponin I 0.009, C-Reactive Protein, Quantitative 11.6H, Pro- B-Type Natriuretic Peptide 3476H, Total Protein 7.1, Albumin 2.6L, Globulin 4.5 , Albumin/Globulin Ratio 0.6L 05/05/18 06:00: TB Test (T-Spot) [Pending], TB Test Nil Control (T-Spot) [Pending], TB Test Panel A (T-Spot) [Pending], TB Test Panel B (T-Spot) [Pending], TB Test Positive Control (T-Spot) [Pending] Height (Feet): 5 Height (Inches): 6.00 Weight (Pounds): 211 General Appearance: no apparent distress Cardiovascular: tachycardia Respiratory/Chest: decreased breath sounds Abdomen: soft Objective no change Fredrick Conner MD May 05, 2018 17:13
--- NOTE | 2018-05-05 19:15 | NUR ---
HAND-OFF: Report given to Vida fuentes .
--- NOTE | 2018-05-05 19:16 | NUR ---
NURSE NOTES: received report from Jeremiah MÁRQUEZ. Pt was resting in the bed w.o any acute distress noted. Blood transfusion is running at 120 ml/HR. Notified that the infusion will end at 1999 and another bag is ready to administer per blood bank. call light is within reach and bed is in the lowest position. Pt is AO x4. phototypesetting equipment monitor is on. Will continue to follow the plan of care.
[2018-05-05 20:00] VITALS: BP 81/46
--- NOTE | 2018-05-05 20:00 | NUR ---
NURSE NOTES: Blood transfusion is over. Vitals are BP 81/46 HR 81Temp 98.0 o2 sat is 98%. Will start another bag soon.
--- NOTE | 2018-05-05 20:20 | NUR ---
NURSE NOTES: Another bag of RBC is ready to infuse. Pre transfusion Vitals are BP 83/47 HR 81Temp 98.1 o2 sat is 100%. Transfusion started and no acute distress noted. VS after 15 min of transfusion are BP 84/47 HR 80 Temp 97.8 o2 sat is 97%. Patent denies any SOB, denies itchiness. Pt is calm and comfortable. Will continue to monitor the patient.
[2018-05-05] MEDS: Miralax 17gm pkt ORAL SCH ×2 (20:45→20:51)
[2018-05-05] MEDS: Dyna-Hex 2% Top Sol 2oz TOPIC SCH (20:45)
--- NOTE | 2018-05-05 23:30 | NUR ---
NURSE NOTES: Second bag of RBC are done. NO adverse effect noted. BP is 93/36 HR 73 Spo2 95 %, Temp 98.0. Will continue to monitor the patient.
[2018-05-06] VITALS (9 sets, daily range): BP systolic 85–132; BP diastolic 36–59
--- NOTE | 2018-05-06 00:09 | General Progress Note ---
Assessment/Plan Problem List: (1) Anxiety ICD Codes: F41.9 - Anxiety disorder, unspecified SNOMED: 64718434 (2) Panic attack ICD Codes: F41.0 - Panic disorder [episodic paroxysmal anxiety] SNOMED: 732619268 Assessment/Plan Celexa 40mg qam Remeron 7.5 mg qhs provided ro/st Subjective Neurologic/Psychiatric: Reports: anxiety, depressed, emotional problems Allergies: Coded Allergies: CEFAZOLIN (Verified Allergy, Unknown, 10/02/10) CIPROFLOXACIN (Verified Allergy, Unknown, 10/02/10) GENTAMICIN (Verified Allergy, Unknown, 10/02/10) KETAMINE (Verified Allergy, Unknown, 03/29/18) LEVOFLOXACIN (Verified Allergy, Unknown, 10/02/10) PENICILLINS (Verified Allergy, Unknown, ITCH, 10/02/10) Uncoded Allergies: CONTRAST MEDIA (Adverse Reaction, Mild, MILD ITCHING AFTER CONTRAST MEDIA, 04/30/17) Subjective cont to be depressed and anxious Objective Last 24 Hour Vital Signs Date Time Temp Pulse Resp B/P (MAP) Pulse Ox O2 Delivery O2 Flow Rate FiO2 05/05/18 20:00 98.0 81 18 81/46 (58) 99 05/05/18 20:00 88 05/05/18 16:00 97.8 97 21 112/80 (91) 97 05/05/18 15:10 79 05/05/18 12:00 74 05/05/18 12:00 98.3 98 21 102/65 (77) 97 05/05/18 08:20 Room Air 05/05/18 07:56 68 05/05/18 07:39 98.6 72 20 92/46 (61) 100 05/05/18 04:00 74 05/05/18 04:00 98.6 77 20 88/43 (58) 100 Intake and Output 05/05/18 05/06/18 19:00 07:00 Intake Total 480 ml Balance 480 ml Intake Oral 480 ml # Bowel Movements 2 Laboratory Tests 05/05/18 05:00: White Blood Count 4.9, Red Blood Count 2.20L, Hemoglobin 6.5*L, Hematocrit 20.3L , Mean Corpuscular Volume 93, Mean Corpuscular Hemoglobin 29.7, Mean Corpuscular Hemoglobin Concent 32.1, Red Cell Distribution Width 15.0H, Platelet Count 178, Mean Platelet Volume 9.3, Neutrophils (%) (Auto) , Lymphocytes (%) (Auto) , Monocytes (%) (Auto) , Eosinophils (%) (Auto) , Basophils (%) (Auto) , Differential Total Cells Counted 100, Neutrophils % ( Manual) 63, Lymphocytes % (Manual) 22, Monocytes % (Manual) 10, Eosinophils % ( Manual) 4H, Basophils % (Manual) 1, Band Neutrophils 0, Platelet Estimate Adequate, Platelet Morphology Normal, Hypochromasia 3+, Anisocytosis 1+, Prothrombin Time 12.0H, Prothromb Time International Ratio 1.1, Activated Partial Thromboplast Time 30, Sodium Level 140, Potassium Level 3.2L, Chloride Level 101, Carbon Dioxide Level 33H, Anion Gap 6, Blood Urea Nitrogen 15, Creatinine 5.1H, Estimat Glomerular Filtration Rate 10.7, Glucose Level 101, Calcium Level 9.0, Phosphorus Level 2.4L, Total Bilirubin 0.4, Aspartate Amino Transf (AST/SGOT) 12L, Alanine Aminotransferase (ALT/SGPT) 9L, Alkaline Phosphatase 264H, Troponin I 0.009, C-Reactive Protein, Quantitative 11.6H, Pro- B-Type Natriuretic Peptide 3476H, Total Protein 7.1, Albumin 2.6L, Globulin 4.5 , Albumin/Globulin Ratio 0.6L 05/05/18 06:00: TB Test (T-Spot) [Pending], TB Test Nil Control (T-Spot) [Pending], TB Test Panel A (T-Spot) [Pending], TB Test Panel B (T-Spot) [Pending], TB Test Positive Control (T-Spot) [Pending] Height (Feet): 5 Height (Inches): 6.00 Weight (Pounds): 211 General Appearance: no apparent distress, alert Neurologic: oriented x 3, responsive, depressed affect Edwin Brown MD May 06, 2018 00:09
[2018-05-06] MEDS: Midodrine 10mg tab ORAL SCH ×3 (05:58→21:22)
--- NOTE | 2018-05-06 07:12 | Anethesia Preoperative Eval ---
Anesthesia Pre-op PMH/ROS General Date of Evaluation: May 06, 2018 Time of Evaluation: 07:06 Anesthesiologist: ita ASA Score: ASA 4 Mallampati Score Class I : Soft palate, uvula, fauces, pillars visible Class II: Soft palate, uvula, fauces visible Class III: Soft palate, base of uvula visible Class IV: Only hard plate visible Mallampati Classification: Class II Surgeon: davian Diagnosis: ugib Surgical Procedure: egd Anesthesia History: none Social History: smoking - nonsmoker Family History: no anesthesia problems Allergies: Coded Allergies: CEFAZOLIN (Verified Allergy, Unknown, 10/02/10) CIPROFLOXACIN (Verified Allergy, Unknown, 10/02/10) GENTAMICIN (Verified Allergy, Unknown, 10/02/10) KETAMINE (Verified Allergy, Unknown, 03/29/18) LEVOFLOXACIN (Verified Allergy, Unknown, 10/02/10) PENICILLINS (Verified Allergy, Unknown, ITCH, 10/02/10) Uncoded Allergies: CONTRAST MEDIA (Adverse Reaction, Mild, MILD ITCHING AFTER CONTRAST MEDIA, 04/30/17) Medications: see eMAR Patient NPO?: Yes Past Medical History Cardiovascular: Reports: HTN, other - chf, acute coronary syndrome, Pulmonary: Reports: other - acute respiratory failure, pneumonia, bronchitis, pulmonary embolus Gastrointestinal/Genitourinary: Reports: ESRD, other - constipation, epigastric pain, Neurologic/Psychiatric: Reports: depression/anxiety, other - metabolic encephalopathy, Hematology/Immune: Reports: other - dental abscess, septic shock, Musculoskeletal/Integumentary: Reports: other - costochrondritis Anesthesia Pre-op Phys. Exam Physician Exam Last Vital Signs Date Time Temp Pulse Resp B/P (MAP) Pulse Ox O2 Delivery O2 Flow Rate FiO2 05/06/18 04:00 98.1 69 20 88/43 (58) 93 05/05/18 21:00 Room Air 05/04/18 20:40 21 04/30/18 07:11 2.0 Constitutional: NAD Neurologic: CN 2-12 intact Cardiovascular: RRR Respiratory: CTA Gastrointestinal: S/NT/ND Airway Exam Mallampati Score: Class II MO: limited Neck: flexible TMD: 2fb ROM: limited Teeth: missing Anesthesia Pre-op A/P Risk Assessment & Plan Assessment: asa4 Plan: mac Status Change Before Surgery: No Pre-Antibiotics Drug: Vivienne Rashid MD May 06, 2018 07:12
--- NOTE | 2018-05-06 07:15 | NUR ---
HAND-OFF: Report given to Jeremiah MÁRQUEZ.
--- NOTE | 2018-05-06 07:29 | NUR ---
NURSE NOTES: Pt in bed in low position, HOB in semi fowlers, pt has commode at bedside, pt on room air, call light at bedside, pt bed alarm as pt has bathroom privileges, pt at present time has eyes closed and is breathing and appears to be sleeping, breaths per min is 18, pt baseline is Ox4 calm and cooperative, on handoff night nurses stated that 2 units of blood were given with no adverse effect, no s/s of distress or sob noted. will continue to monitor BP as it needs to be over 80 and HCT and HGB.
[2018-05-06] MEDS: Heparin 5000 units/ml inj SUBQ SCH ×2 (09:00→21:00)
[2018-05-06] MEDS: Aspirin Baby 81mg ORAL SCH (09:00)
[2018-05-06] MEDS: Bisacodyl EC 5mg tab ORAL SCH (09:15)
[2018-05-06] MEDS: Citalopram Hydrobromide 10mg Tab ORAL SCH (09:20)
[2018-05-06 09:33] LABS: BASOPHILS % (AUTO) 0.3 % (0.0-2.0); EOSINOPHILS % (AUTO) 5.9 % (0.0-3.0); HEMATOCRIT 28.7 % (37.0-47.0); LYMPHOCYTES % (AUTO) 15.3 % (20.0-45.0); MEAN CORPUSCULAR VOLUME 91 FL (80-99); MONOCYTES % (AUTO) 8.4 % (1.0-10.0); PLATELET COUNT 177 K/UL (150-450); RED BLOOD COUNT 3.17 M/UL (4.20-5.40); RED CELL DISTRIBUTION WIDTH 15.5 % (11.6-14.8)
[2018-05-06 09:36] LABS: HEMOGLOBIN 9.2 G/DL (12.0-16.0)
[2018-05-06 09:37] LABS: INR 1.1 (0.9-1.1)
[2018-05-06 09:52] LABS: ANION GAP 8 mmol/L (5-15); BLOOD UREA NITROGEN 25 mg/dL (7-18); CALCIUM 9.5 MG/DL (8.5-10.1); CARBON DIOXIDE 31 MMOL/L (21-32); CHLORIDE 100 MMOL/L (98-107); CREATININE 6.8 MG/DL (0.55-1.30); POTASSIUM 3.5 MMOL/L (3.5-5.1); SODIUM 139 MMOL/L (136-145)
--- NOTE | 2018-05-06 10:26 | Pre-Procedure Note/Attestation ---
Pre-Procedure Note/Attestation Complete Prior to Procedure Planned Procedure: not applicable Procedure Narrative: egd Indications for Procedure Pre-Operative Diagnosis: gib Attestation I attest that I discussed the nature of the procedure; its benefits; risks and complications; and alternatives (and the risks and benefits of such alternatives ), prior to the procedure, with the patient (or the patient's legal provider service representative). I attest that, if there was a reasonable possibility of needing a blood transfusion, the patient (or the patient's legal provider service representative) was given the [facility] standardized written summary, pursuant to the Raffi Jessica Blood Safety Act ([place] Health and Safety Code # 1645, as amended). I attest that I re-evaluated the patient just prior to the surgery and that there has been no change in the patient's H&P, except as documented below: Ryley Diaz MD May 06, 2018 10:26
[2018-05-06] MEDS ORDERED: NS 500ML IVPB ONE (10:35)
--- NOTE | 2018-05-06 10:50 | NUR ---
CASE MANAGEMENT:REVIEW 05/06/18 SI: SEPSIS. ANEMIA. ESRD 98.3 62 20 85/42 100% RA H/H-9.2/28.7 BUN+25 CR+6.8 IS: PROCRIT SQ MWF ASA PO QD REMERON PO QHS PROTONIX PO BID HEPARIN SQ Q12 REGLAN PO BEFORE MEALS : TELEMETRY STATUS
--- NOTE | 2018-05-06 10:51 | Infectious Diseases Prog Note ---
Assessment/Plan Assessment/Plan antibiotics : none A 1. pneumonia s/p rx 2. renal failure on hemodialysis 3. hypertension 4. increased LFT improving P 1. continue off antibiotics Subjective ROS Limited/Unobtainable: Yes Allergies: Coded Allergies: CEFAZOLIN (Verified Allergy, Unknown, 10/02/10) CIPROFLOXACIN (Verified Allergy, Unknown, 10/02/10) GENTAMICIN (Verified Allergy, Unknown, 10/02/10) KETAMINE (Verified Allergy, Unknown, 03/29/18) LEVOFLOXACIN (Verified Allergy, Unknown, 10/02/10) PENICILLINS (Verified Allergy, Unknown, ITCH, 10/02/10) Uncoded Allergies: CONTRAST MEDIA (Adverse Reaction, Mild, MILD ITCHING AFTER CONTRAST MEDIA, 04/30/17) Objective Vital Signs Last 24 Hour Vital Signs Date Time Temp Pulse Resp B/P (MAP) Pulse Ox O2 Delivery O2 Flow Rate FiO2 05/06/18 08:00 98.3 62 20 85/42 (56) 100 05/06/18 04:00 98.1 69 20 88/43 (58) 93 05/06/18 04:00 76 05/06/18 00:00 98.0 73 20 93/36 (55) 95 05/06/18 00:00 62 05/05/18 21:00 Room Air 05/05/18 20:00 98.0 81 18 81/46 (58) 99 05/05/18 20:00 88 05/05/18 16:00 97.8 97 21 112/80 (91) 97 05/05/18 15:10 79 05/05/18 12:00 74 05/05/18 12:00 98.3 98 21 102/65 (77) 97 Height (Feet): 5 Height (Inches): 6.00 Weight (Pounds): 210 Respiratory/Chest: lungs clear Cardiovascular: normal rate, regular rhythm, no gallop/murmur Abdomen: soft, non tender Extremities: no edema Laboratory Tests Test 05/06/18 09:10 White Blood Count 6.0 K/UL (4.8-10.8) Red Blood Count 3.17 M/UL (4.20-5.40) L Hemoglobin 9.2 G/DL (12.0-16.0) #L Hematocrit 28.7 % (37.0-47.0) #L Mean Corpuscular Volume 91 FL (80-99) Mean Corpuscular Hemoglobin 28.9 PG (27.0-31.0) Mean Corpuscular Hemoglobin Concent 31.9 G/DL (32.0-36.0) L Red Cell Distribution Width 15.5 % (11.6-14.8) H Platelet Count 177 K/UL (150-450) Mean Platelet Volume 8.1 FL (6.5-10.1) Neutrophils (%) (Auto) 70.0 % (45.0-75.0) Lymphocytes (%) (Auto) 15.3 % (20.0-45.0) L Monocytes (%) (Auto) 8.4 % (1.0-10.0) Eosinophils (%) (Auto) 5.9 % (0.0-3.0) H Basophils (%) (Auto) 0.3 % (0.0-2.0) Prothrombin Time 12.0 SEC (9.30-11.50) H Prothromb Time International Ratio 1.1 (0.9-1.1) Activated Partial Thromboplast Time 31 SEC (23-33) Sodium Level 139 MMOL/L (136-145) Potassium Level 3.5 MMOL/L (3.5-5.1) Chloride Level 100 MMOL/L (98-107) Carbon Dioxide Level 31 MMOL/L (21-32) Anion Gap 8 mmol/L (5-15) Blood Urea Nitrogen 25 mg/dL (7-18) H Creatinine 6.8 MG/DL (0.55-1.30) H Estimat Glomerular Filtration Rate 7.6 mL/min (>60) Glucose Level 103 MG/DL (74-106) Calcium Level 9.5 MG/DL (8.5-10.1) Current Medications Medications (Trade) Dose Ordered Sig/Marcos Route PRN Reason Start Time Stop Time Status Last Admin Dose Admin Acetaminophen (Tylenol) 650 mg Q6H PRN ORAL Mild Pain/Temp > 100.5 05/04/18 12:00 05/12/18 11:59 Aspirin (ASA) 81 mg DAILY ORAL 05/05/18 09:00 05/17/18 08:59 Bisacodyl (Dulcolax) 5 mg BID ORAL 05/04/18 18:00 05/21/18 18:59 Chlorhexidine Gluconate (Nivia-Hex 2%) 1 applic DAILY@2000 TOPIC 05/04/18 20:00 05/13/18 19:59 05/05/18 20:45 Citalopram Hydrobromide (celeXA) 40 mg DAILY ORAL 05/05/18 09:00 06/03/18 08:59 Epoetin Alejandro (Procrit (for ESRD on dialysis)) 10,000 units WED-WED-WED SUBQ 05/06/18 21:00 06/05/18 20:59 Guaifenesin (Robitussin) 300 mg Q6H PRN ORAL For Cough 05/04/18 12:00 05/14/18 11:59 Heparin Sodium (Porcine) (Heparin 5000 units/ml) 5,000 units EVERY 12 HOURS SUBQ 05/04/18 12:30 05/12/18 12:29 Loperamide HCl (Imodium) 2 mg Q4H PRN ORAL Diarrhea 05/04/18 12:00 05/25/18 11:59 Metoclopramide HCl (Reglan) 5 mg BEFORE MEALS ORAL 05/04/18 12:00 05/28/18 11:59 05/06/18 05:58 Metoclopramide HCl (Reglan) 10 mg Q8H PRN IVP Nausea & Vomiting 05/04/18 12:00 05/28/18 11:59 Midodrine (Pro-Amatine) 10 mg Q8HR ORAL 05/04/18 14:00 05/19/18 13:59 05/06/18 05:58 Mirtazapine (Remeron) 7.5 mg BEDTIME ORAL 05/04/18 21:00 05/25/18 20:59 05/05/18 20:45 Pantoprazole (Protonix) 40 mg BIAC ORAL 05/04/18 16:30 06/03/18 16:29 05/06/18 05:58 Polyethylene Glycol (Miralax) 17 gm BEDTIME ORAL 05/04/18 21:00 05/21/18 20:59 Sevelamer Carbonate (Renvela) 2,400 mg THREE TIMES A DAY ORAL 05/04/18 13:00 05/13/18 08:59 05/05/18 17:42 Wagner Bryant MD May 06, 2018 10:51
[2018-05-06] MEDS ORDERED: Propofol 200mg/20ml IV ONE (11:00)
[2018-05-06] MEDS ORDERED: Lidocaine 1% MPF 10mg/ml 5ml ONE (11:00)
--- NOTE | 2018-05-06 11:09 | Endoscopy Procedure Note ---
Endoscopy Procedure Note General Indication for Procedure: gib Procedures Performed: EGD Operative Findings/Diagnosis: EV Specimen: none Pt Tolerated Procedure Well: Yes Estimated Blood Loss: none Anesthesia Anesthesiologist: ita Anesthesia: MAC Inserted Devices Implant(s) used?: No GI Core Measures 50 yrs or older w/o bx or poly: Not Applicable 10yrs. F/U not recommended: Not Applicable Ryley Diaz MD May 06, 2018 11:09
[2018-05-06] MEDS ORDERED: DiphenhydrAMINE 50mg/ml Inj IVP PRN (11:15)
[2018-05-06] MEDS ORDERED: Atropine Inj 1mg/10ml Syr IV PRN (11:15)
[2018-05-06] MEDS ORDERED: Midazolam 2mg/2ml Inj IVP PRN (11:15)
[2018-05-06] MEDS ORDERED: fentaNYL 100 mcg/2 mL IV PRN (11:15)
--- NOTE | 2018-05-06 12:06 | Immediate Post-Op Evaluation ---
Immediate Post-Op Evalulation Immediate Post-Op Evalulation Procedure: egd w/banding Date of Evaluation: May 06, 2018 Time of Evaluation: 11:08 IV Fluids: 225ml 0.9ns Blood Products: none Estimated Blood Loss: negligible Blood Pressure Systolic: 132 Blood Pressure Diastolic: 56 Pulse Rate: 78 Respiratory Rate: 18 O2 Sat by Pulse Oximetry: 99 Temperature (Fahrenheit): 97.9 Pain Score (1-10): 7 Nausea: No Vomiting: No Complications none Patient Status: reacts, no response, patent Hydration Status: adequate Drug: Vivienne Rashid MD May 06, 2018 12:06
--- NOTE | 2018-05-06 12:08 | 48 Hour Post Anesthesia Eval ---
Post Anesthesia Evaluation Procedure: egd w/banding Date of Evaluation: May 06, 2018 Time of Evaluation: 11:20 Blood Pressure Systolic: 118 0: 56 Pulse Rate: 73 Respiratory Rate: 18 Temperature (Fahrenheit): 97.9 O2 Sat by Pulse Oximetry: 99 Airway: patent Nausea: No Vomiting: No Pain Intensity: 4 Hydration Status: adequate Cardiopulmonary Status: stable Mental Status/LOC: patient returned to baseline Post-Anesthesia Complications: none Follow-up care needed: N/A Vivienne Nagel MD May 06, 2018 12:08
--- NOTE | 2018-05-06 12:15 | Cardiac Electrophysiology PN ---
Assessment/Plan Assessment/Plan 1. Troponin leak due to renal failure. Levels low and flat. No chest pain. 2. S/P Septic shock. Continue midodrine 10 mg tid. S/P iv fluid and transfusion 3. Bradycardia. Resolved. 4. Anterior T-wave inversion. No chest pain. EF 60% 5. End-stage renal disease, on hemodialysis, per Dr. Conner. 6. Diarrhea C. Diff was negative 7. Severe anemia Hb 6.5 s/p transfusion DW RN Subjective Subjective On tele. No CP or SOB. No further hypotension. Awaiting HD today Objective Last 24 Hour Vital Signs Date Time Temp Pulse Resp B/P (MAP) Pulse Ox O2 Delivery O2 Flow Rate FiO2 05/06/18 12:06 78 18 99 05/06/18 11:37 98.0 05/06/18 11:20 98.0 73 18 118/56 99 Nasal Cannula 3 05/06/18 11:07 79 18 132/56 99 Nasal Cannula 3 05/06/18 11:02 77 18 123/59 99 Nasal Cannula 3 05/06/18 10:56 97.9 78 18 132/56 99 Nasal Cannula 3 05/06/18 08:20 Room Air 05/06/18 08:00 98.3 62 20 85/42 (56) 100 05/06/18 07:44 69 05/06/18 04:00 98.1 69 20 88/43 (58) 93 05/06/18 04:00 76 05/06/18 00:00 98.0 73 20 93/36 (55) 95 05/06/18 00:00 62 05/05/18 21:00 Room Air 05/05/18 20:00 98.0 81 18 81/46 (58) 99 05/05/18 20:00 88 05/05/18 16:00 97.8 97 21 112/80 (91) 97 05/05/18 15:10 79 Intake and Output 05/05/18 05/06/18 18:59 06:59 Intake Total 480 ml Balance 480 ml Intake Oral 480 ml # Bowel Movements 2 1 Laboratory Tests Test 05/06/18 09:10 White Blood Count 6.0 K/UL (4.8-10.8) Red Blood Count 3.17 M/UL (4.20-5.40) L Hemoglobin 9.2 G/DL (12.0-16.0) #L Hematocrit 28.7 % (37.0-47.0) #L Mean Corpuscular Volume 91 FL (80-99) Mean Corpuscular Hemoglobin 28.9 PG (27.0-31.0) Mean Corpuscular Hemoglobin Concent 31.9 G/DL (32.0-36.0) L Red Cell Distribution Width 15.5 % (11.6-14.8) H Platelet Count 177 K/UL (150-450) Mean Platelet Volume 8.1 FL (6.5-10.1) Neutrophils (%) (Auto) 70.0 % (45.0-75.0) Lymphocytes (%) (Auto) 15.3 % (20.0-45.0) L Monocytes (%) (Auto) 8.4 % (1.0-10.0) Eosinophils (%) (Auto) 5.9 % (0.0-3.0) H Basophils (%) (Auto) 0.3 % (0.0-2.0) Prothrombin Time 12.0 SEC (9.30-11.50) H Prothromb Time International Ratio 1.1 (0.9-1.1) Activated Partial Thromboplast Time 31 SEC (23-33) Sodium Level 139 MMOL/L (136-145) Potassium Level 3.5 MMOL/L (3.5-5.1) Chloride Level 100 MMOL/L (98-107) Carbon Dioxide Level 31 MMOL/L (21-32) Anion Gap 8 mmol/L (5-15) Blood Urea Nitrogen 25 mg/dL (7-18) H Creatinine 6.8 MG/DL (0.55-1.30) H Estimat Glomerular Filtration Rate 7.6 mL/min (>60) Glucose Level 103 MG/DL (74-106) Calcium Level 9.5 MG/DL (8.5-10.1) Objective HEAD AND NECK: No JVD. LUNGS: Decreased breath sounds. CARDIOVASCULAR: Regular S1 and S2 no GRM ABDOMEN: Soft. EXTREMITIES: No edema Tc Liang MD May 06, 2018 12:15
--- NOTE | 2018-05-06 12:43 | Pulmonology Progress Note ---
Assessment/Plan Problems: (1) Acute respiratory failure with hypoxemia (2) Septic shock (3) Pneumonia (4) ESRD (end stage renal disease) on dialysis Assessment/Plan no new complains EGD done ABD US being done now hemodynamically better continue abx HD by platform architect check electrolytes Subjective ROS Limited/Unobtainable: No Constitutional: Reports: no symptoms HEENT: Repors: no symptoms Allergies: Coded Allergies: CEFAZOLIN (Verified Allergy, Unknown, 10/02/10) CIPROFLOXACIN (Verified Allergy, Unknown, 10/02/10) GENTAMICIN (Verified Allergy, Unknown, 10/02/10) KETAMINE (Verified Allergy, Unknown, 03/29/18) LEVOFLOXACIN (Verified Allergy, Unknown, 10/02/10) PENICILLINS (Verified Allergy, Unknown, ITCH, 10/02/10) Uncoded Allergies: CONTRAST MEDIA (Adverse Reaction, Mild, MILD ITCHING AFTER CONTRAST MEDIA, 04/30/17) Objective Last 24 Hour Vital Signs Date Time Temp Pulse Resp B/P (MAP) Pulse Ox O2 Delivery O2 Flow Rate FiO2 05/06/18 12:08 73 18 99 05/06/18 12:06 78 18 99 05/06/18 11:37 98.0 05/06/18 11:20 98.0 73 18 118/56 99 Nasal Cannula 3 05/06/18 11:07 79 18 132/56 99 Nasal Cannula 3 05/06/18 11:02 77 18 123/59 99 Nasal Cannula 3 05/06/18 10:56 97.9 78 18 132/56 99 Nasal Cannula 3 05/06/18 09:59 Room Air 21 05/06/18 09:59 95 Room Air 21 05/06/18 08:20 Room Air 05/06/18 08:00 98.3 62 20 85/42 (56) 100 05/06/18 07:44 69 05/06/18 04:00 98.1 69 20 88/43 (58) 93 05/06/18 04:00 76 05/06/18 00:00 98.0 73 20 93/36 (55) 95 05/06/18 00:00 62 05/05/18 21:00 Room Air 05/05/18 20:00 98.0 81 18 81/46 (58) 99 05/05/18 20:00 88 05/05/18 16:00 97.8 97 21 112/80 (91) 97 05/05/18 15:10 79 Intake and Output 05/05/18 05/06/18 18:59 06:59 Intake Total 480 ml Balance 480 ml Intake Oral 480 ml # Bowel Movements 2 1 General Appearance: WD/WN HEENT: normocephalic, atraumatic, PERRL Respiratory/Chest: chest wall non-tender, lungs clear Cardiovascular: normal peripheral pulses, normal rate Abdomen: normal bowel sounds, soft, non tender Genitourinary: normal external genitalia Skin: no rash Laboratory Tests 05/06/18 09:10: White Blood Count 6.0, Red Blood Count 3.17L, Hemoglobin 9.2#L, Hematocrit 28.7# L, Mean Corpuscular Volume 91, Mean Corpuscular Hemoglobin 28.9, Mean Corpuscular Hemoglobin Concent 31.9L, Red Cell Distribution Width 15.5H, Platelet Count 177, Mean Platelet Volume 8.1, Neutrophils (%) (Auto) 70.0, Lymphocytes (%) (Auto) 15.3L, Monocytes (%) (Auto) 8.4, Eosinophils (%) (Auto) 5.9H, Basophils (%) (Auto) 0.3, Prothrombin Time 12.0H, Prothromb Time International Ratio 1.1, Activated Partial Thromboplast Time 31, Sodium Level 139, Potassium Level 3.5, Chloride Level 100, Carbon Dioxide Level 31, Anion Gap 8, Blood Urea Nitrogen 25H, Creatinine 6.8H, Estimat Glomerular Filtration Rate 7.6, Glucose Level 103, Calcium Level 9.5 Current Medications Medications (Trade) Dose Ordered Sig/Marcos Route PRN Reason Start Time Stop Time Status Last Admin Dose Admin Acetaminophen (Tylenol) 650 mg Q6H PRN ORAL Mild Pain/Temp > 100.5 05/04/18 12:00 05/12/18 11:59 Al Hydroxide/Mg Hydroxide (Mylanta) 15 ml Q1H PRN ORAL gi upset 05/06/18 11:15 05/06/18 16:00 Aspirin (ASA) 81 mg DAILY ORAL 05/05/18 09:00 05/17/18 08:59 Atropine Sulfate (Atropine) 0.5 mg Q5M PRN IV BRADYCARDIA 05/06/18 11:15 05/06/18 18:00 Chlorhexidine Gluconate (Nivia-Hex 2%) 1 applic DAILY@2000 TOPIC 05/04/18 20:00 05/13/18 19:59 05/05/18 20:45 Citalopram Hydrobromide (celeXA) 40 mg DAILY ORAL 05/05/18 09:00 06/03/18 08:59 Diphenhydramine HCl (Benadryl) 25 mg Q15M PRN IVP Itching 05/06/18 11:15 05/06/18 16:00 Epoetin Alejandro (Procrit (for ESRD on dialysis)) 10,000 units WED-WED-WED SUBQ 05/06/18 21:00 06/05/18 20:59 Fentanyl Citrate (Sublimaze 100 mcg/2 mL) 25 mcg Q10M PRN IV Moderate Pain (Pain Scale 4-6) 05/06/18 11:15 05/06/18 16:00 05/06/18 11:07 Guaifenesin (Robitussin) 300 mg Q6H PRN ORAL For Cough 05/04/18 12:00 05/14/18 11:59 Heparin Sodium (Porcine) (Heparin 5000 units/ml) 5,000 units EVERY 12 HOURS SUBQ 05/04/18 12:30 05/12/18 12:29 Hydralazine HCl (Apresoline) 5 mg Q30M PRN IV SBP>160 /DBP>90 05/06/18 11:15 05/06/18 16:00 Loperamide HCl (Imodium) 2 mg Q4H PRN ORAL Diarrhea 05/04/18 12:00 05/25/18 11:59 Metoclopramide HCl (Reglan) 10 mg Q8H PRN IVP Nausea & Vomiting 05/04/18 12:00 05/28/18 11:59 Midazolam HCl (Versed 2mg/2ml vial) 1 mg Q15M PRN IVP For Anxiety 05/06/18 11:15 05/06/18 16:00 Midodrine (Pro-Amatine) 10 mg Q8HR ORAL 05/04/18 14:00 05/19/18 13:59 05/06/18 05:58 Mirtazapine (Remeron) 7.5 mg BEDTIME ORAL 05/04/18 21:00 05/25/18 20:59 05/05/18 20:45 Pantoprazole (Protonix) 40 mg BIAC ORAL 05/04/18 16:30 06/03/18 16:29 05/06/18 05:58 Polyethylene Glycol (Miralax) 17 gm BEDTIME ORAL 05/04/18 21:00 05/21/18 20:59 Sevelamer Carbonate (Renvela) 2,400 mg THREE TIMES A DAY ORAL 05/04/18 13:00 05/13/18 08:59 05/05/18 17:42 Sodium Chloride 1,000 ml @ 10 mls/hr Q24H IVLG 05/06/18 11:01 05/06/18 13:00 Cuate Schmidt MD May 06, 2018 12:43
--- NOTE | 2018-05-06 13:35 | General Progress Note ---
Assessment/Plan Problem List: (1) Anxiety ICD Codes: F41.9 - Anxiety disorder, unspecified SNOMED: 44643172 (2) Panic attack ICD Codes: F41.0 - Panic disorder [episodic paroxysmal anxiety] SNOMED: 031397372 Assessment/Plan Celexa 40mg qam Remeron 7.5 mg qhs provided ro/st Subjective Neurologic/Psychiatric: Reports: anxiety, depressed, emotional problems Allergies: Coded Allergies: CEFAZOLIN (Verified Allergy, Unknown, 10/02/10) CIPROFLOXACIN (Verified Allergy, Unknown, 10/02/10) GENTAMICIN (Verified Allergy, Unknown, 10/02/10) KETAMINE (Verified Allergy, Unknown, 03/29/18) LEVOFLOXACIN (Verified Allergy, Unknown, 10/02/10) PENICILLINS (Verified Allergy, Unknown, ITCH, 10/02/10) Uncoded Allergies: CONTRAST MEDIA (Adverse Reaction, Mild, MILD ITCHING AFTER CONTRAST MEDIA, 04/30/17) Subjective cont to be depressed and anxious just came back from her procedure was npo. more anxious. Objective Last 24 Hour Vital Signs Date Time Temp Pulse Resp B/P (MAP) Pulse Ox O2 Delivery O2 Flow Rate FiO2 05/06/18 12:08 73 18 99 05/06/18 12:06 78 18 99 05/06/18 11:52 65 05/06/18 11:37 98.0 05/06/18 11:20 98.0 73 18 118/56 99 Nasal Cannula 3 05/06/18 11:07 79 18 132/56 99 Nasal Cannula 3 05/06/18 11:02 77 18 123/59 99 Nasal Cannula 3 05/06/18 10:56 97.9 78 18 132/56 99 Nasal Cannula 3 05/06/18 09:59 Room Air 21 05/06/18 09:59 95 Room Air 21 05/06/18 08:20 Room Air 05/06/18 08:00 98.3 62 20 85/42 (56) 100 05/06/18 07:44 69 05/06/18 04:00 98.1 69 20 88/43 (58) 93 05/06/18 04:00 76 05/06/18 00:00 98.0 73 20 93/36 (55) 95 05/06/18 00:00 62 05/05/18 21:00 Room Air 05/05/18 20:00 98.0 81 18 81/46 (58) 99 05/05/18 20:00 88 05/05/18 16:00 97.8 97 21 112/80 (91) 97 05/05/18 15:10 79 Intake and Output 05/05/18 05/06/18 18:59 06:59 Intake Total 480 ml Balance 480 ml Intake Oral 480 ml # Bowel Movements 2 1 Laboratory Tests 05/06/18 09:10: White Blood Count 6.0, Red Blood Count 3.17L, Hemoglobin 9.2#L, Hematocrit 28.7# L, Mean Corpuscular Volume 91, Mean Corpuscular Hemoglobin 28.9, Mean Corpuscular Hemoglobin Concent 31.9L, Red Cell Distribution Width 15.5H, Platelet Count 177, Mean Platelet Volume 8.1, Neutrophils (%) (Auto) 70.0, Lymphocytes (%) (Auto) 15.3L, Monocytes (%) (Auto) 8.4, Eosinophils (%) (Auto) 5.9H, Basophils (%) (Auto) 0.3, Prothrombin Time 12.0H, Prothromb Time International Ratio 1.1, Activated Partial Thromboplast Time 31, Sodium Level 139, Potassium Level 3.5, Chloride Level 100, Carbon Dioxide Level 31, Anion Gap 8, Blood Urea Nitrogen 25H, Creatinine 6.8H, Estimat Glomerular Filtration Rate 7.6, Glucose Level 103, Calcium Level 9.5 Height (Feet): 5 Height (Inches): 6.00 Weight (Pounds): 210 General Appearance: alert, morbidly obese Neurologic: oriented x 3, responsive, depressed affect Edwin Brown MD May 06, 2018 13:35
[2018-05-06] MEDS: Loperamide 2mg cap ORAL PRN ×2 (14:15→21:03)
--- NOTE | 2018-05-06 14:48 | Nephrology Progress Note ---
Assessment/Plan Problem List: (1) ESRD (end stage renal disease) on dialysis (2) Hypotension (3) Anemia of renal disease Assessment: worsening (4) Metabolic encephalopathy (5) Pneumonia Assessment ESRD HypoThyroidism- Periodic Hypotension- encephalopathic , metabolic- Plan endoscopy toda Transfused dialysis next 05/07 consider transfusion as needed- has antibodies Reglan for vomiting recheck serum cortisol level- noted add asa and isordil for rising Troponin add prn imodium for loose bm per orders midodrine per consultants antibiotics for pneumonia Subjective ROS Limited/Unobtainable: No Constitutional: Reports: malaise Objective Objective Last 24 Hour Vital Signs Date Time Temp Pulse Resp B/P (MAP) Pulse Ox O2 Delivery O2 Flow Rate FiO2 05/06/18 12:08 73 18 99 05/06/18 12:06 78 18 99 05/06/18 11:52 65 05/06/18 11:37 98.0 05/06/18 11:20 98.0 73 18 118/56 99 Nasal Cannula 3 05/06/18 11:07 79 18 132/56 99 Nasal Cannula 3 05/06/18 11:02 77 18 123/59 99 Nasal Cannula 3 05/06/18 10:56 97.9 78 18 132/56 99 Nasal Cannula 3 05/06/18 09:59 Room Air 21 05/06/18 09:59 95 Room Air 21 05/06/18 08:20 Room Air 05/06/18 08:00 98.3 62 20 85/42 (56) 100 05/06/18 07:44 69 05/06/18 04:00 98.1 69 20 88/43 (58) 93 05/06/18 04:00 76 05/06/18 00:00 98.0 73 20 93/36 (55) 95 05/06/18 00:00 62 05/05/18 21:00 Room Air 05/05/18 20:00 98.0 81 18 81/46 (58) 99 05/05/18 20:00 88 05/05/18 16:00 97.8 97 21 112/80 (91) 97 05/05/18 15:10 79 Intake and Output 05/05/18 05/06/18 18:59 06:59 Intake Total 480 ml Balance 480 ml Intake Oral 480 ml # Bowel Movements 2 1 Laboratory Tests 05/06/18 09:10: White Blood Count 6.0, Red Blood Count 3.17L, Hemoglobin 9.2#L, Hematocrit 28.7# L, Mean Corpuscular Volume 91, Mean Corpuscular Hemoglobin 28.9, Mean Corpuscular Hemoglobin Concent 31.9L, Red Cell Distribution Width 15.5H, Platelet Count 177, Mean Platelet Volume 8.1, Neutrophils (%) (Auto) 70.0, Lymphocytes (%) (Auto) 15.3L, Monocytes (%) (Auto) 8.4, Eosinophils (%) (Auto) 5.9H, Basophils (%) (Auto) 0.3, Prothrombin Time 12.0H, Prothromb Time International Ratio 1.1, Activated Partial Thromboplast Time 31, Sodium Level 139, Potassium Level 3.5, Chloride Level 100, Carbon Dioxide Level 31, Anion Gap 8, Blood Urea Nitrogen 25H, Creatinine 6.8H, Estimat Glomerular Filtration Rate 7.6, Glucose Level 103, Calcium Level 9.5 Height (Feet): 5 Height (Inches): 6.00 Weight (Pounds): 210 General Appearance: no apparent distress Cardiovascular: normal rate Respiratory/Chest: decreased breath sounds Abdomen: soft Objective no change Fredrick Conner MD May 06, 2018 14:48
--- NOTE | 2018-05-06 15:00 | Procedure Note ---
DATE OF PROCEDURE: 05/06/2018 SURGEON: Ryley Diaz M.D. REFERRING PHYSICIAN: Ash Henley M.D. PROCEDURE: Upper endoscopy with banding of esophageal varices. ANESTHESIA: Per Dr. Olvera. INSTRUMENT: Olympus adult flexible upper endoscope. INDICATION: Upper GI bleeding. REASON FOR PROCEDURE: The procedure, risks, benefits, and possible consequences, including hemorrhage, aspiration, perforation and infection, and alternative treatments, were explained to the patient/legal guardian by Dr. Ryley Diaz and the patient/legal guardian understood and accepted these risks. PROCEDURE IN DETAIL: After informed consent was obtained and the patient was adequately sedated, the Olympus upper endoscope was advanced from the mouth into the second portion of the duodenum and retroflexion performed in the stomach. The patient had evidence of hiatal hernia. Four columns of grade 4 distal esophageal varices without any stigmata. In the stomach, there was some evidence of portal hypertensive gastropathy. At this time, the upper scope was removed and banding device was placed on the tip of the scope. We re-introduced the scope back into the esophagus and we placed 7 bands in the distal esophagus. The patient tolerated the procedure very well without any complication. SUMMARY OF FINDINGS: 1. Status post upper endoscopy with banding of 7 bands of esophageal varices. 2. Hiatal hernia. 3. Portal hypertensive gastropathy. RECOMMENDATIONS: Monitor H and H and transfuse as needed. The patient will need to be on propranolol panel for prophylaxis. If the blood pressure and pulse is stable, start liquid diet and advance as tolerated to soft diet. I want to thank, Dr. Ash Henley, for this kind referral. Ryley Diaz M.D. DR: THELMA JOB#: [id number] CC: KAVEH
--- NOTE | 2018-05-06 15:21 | Diagnostic Imaging Report ---
Indication:Abdominal pain Technique: Grayscale and duplex Doppler imaging of the abdomen performed. Comparison: None Findings: The liver is unremarkable. The gallbladder is unremarkable. The demonstrated part of the pancreas, aorta and IVC show no abnormalities. Kidneys are echogenic and small. There is a catheter within the IVC. The spleen is normal in size. There is no biliary ductal dilatation identified. Doppler evaluation of the main portal vein shows patency. There is no ascites. No hydronephrosis seen. Impression: No acute findings. Small echogenic kidneys consistent with end-stage renal disease Central venous catheter
--- NOTE | 2018-05-06 15:31 | Internal Med Progress Note ---
Subjective Physician Name Ash Henley Attending Physician Ash Henley MD Current Medications Medications (Trade) Dose Ordered Sig/Marcos Route PRN Reason Start Time Stop Time Status Last Admin Dose Admin Acetaminophen (Tylenol) 650 mg Q6H PRN ORAL Mild Pain/Temp > 100.5 05/04/18 12:00 05/12/18 11:59 Al Hydroxide/Mg Hydroxide (Mylanta) 15 ml Q1H PRN ORAL gi upset 05/06/18 11:15 05/06/18 16:00 Aspirin (ASA) 81 mg DAILY ORAL 05/05/18 09:00 05/17/18 08:59 Atropine Sulfate (Atropine) 0.5 mg Q5M PRN IV BRADYCARDIA 05/06/18 11:15 05/06/18 18:00 Chlorhexidine Gluconate (Nivia-Hex 2%) 1 applic DAILY@2000 TOPIC 05/04/18 20:00 05/13/18 19:59 05/05/18 20:45 Citalopram Hydrobromide (celeXA) 40 mg DAILY ORAL 05/05/18 09:00 06/03/18 08:59 Diphenhydramine HCl (Benadryl) 25 mg Q15M PRN IVP Itching 05/06/18 11:15 05/06/18 16:00 Epoetin Alejandro (Procrit (for ESRD on dialysis)) 10,000 units WED-WED-WED SUBQ 05/06/18 21:00 06/05/18 20:59 Fentanyl Citrate (Sublimaze 100 mcg/2 mL) 25 mcg Q10M PRN IV Moderate Pain (Pain Scale 4-6) 05/06/18 11:15 05/06/18 16:00 05/06/18 11:07 Guaifenesin (Robitussin) 300 mg Q6H PRN ORAL For Cough 05/04/18 12:00 05/14/18 11:59 Heparin Sodium (Porcine) (Heparin 5000 units/ml) 5,000 units EVERY 12 HOURS SUBQ 05/04/18 12:30 05/12/18 12:29 Hydralazine HCl (Apresoline) 5 mg Q30M PRN IV SBP>160 /DBP>90 05/06/18 11:15 05/06/18 16:00 Loperamide HCl (Imodium) 2 mg Q4H PRN ORAL Diarrhea 05/04/18 12:00 05/25/18 11:59 05/06/18 14:15 Metoclopramide HCl (Reglan) 10 mg Q8H PRN IVP Nausea & Vomiting 05/04/18 12:00 05/28/18 11:59 Midazolam HCl (Versed 2mg/2ml vial) 1 mg Q15M PRN IVP For Anxiety 05/06/18 11:15 05/06/18 16:00 Midodrine (Pro-Amatine) 10 mg Q8HR ORAL 05/04/18 14:00 05/19/18 13:59 05/06/18 13:46 Mirtazapine (Remeron) 7.5 mg BEDTIME ORAL 05/04/18 21:00 05/25/18 20:59 05/05/18 20:45 Pantoprazole (Protonix) 40 mg BIAC ORAL 05/04/18 16:30 06/03/18 16:29 05/06/18 05:58 Polyethylene Glycol (Miralax) 17 gm BEDTIME ORAL 05/04/18 21:00 05/21/18 20:59 Sevelamer Carbonate (Renvela) 2,400 mg THREE TIMES A DAY ORAL 05/04/18 13:00 05/13/18 08:59 05/06/18 13:46 Allergies: Coded Allergies: CEFAZOLIN (Verified Allergy, Unknown, 10/02/10) CIPROFLOXACIN (Verified Allergy, Unknown, 10/02/10) GENTAMICIN (Verified Allergy, Unknown, 10/02/10) KETAMINE (Verified Allergy, Unknown, 03/29/18) LEVOFLOXACIN (Verified Allergy, Unknown, 10/02/10) PENICILLINS (Verified Allergy, Unknown, ITCH, 10/02/10) Uncoded Allergies: CONTRAST MEDIA (Adverse Reaction, Mild, MILD ITCHING AFTER CONTRAST MEDIA, 04/30/17) Subjective awake, alert, responsive, feeling Okay, S/P EGD and colonoscopy today. Objective Last Vital Signs Date Time Temp Pulse Resp B/P (MAP) Pulse Ox O2 Delivery O2 Flow Rate FiO2 05/06/18 12:08 73 18 99 05/06/18 11:37 98.0 05/06/18 11:20 118/56 Nasal Cannula 3 05/06/18 09:59 21 Laboratory Tests Test 05/06/18 09:10 White Blood Count 6.0 K/UL (4.8-10.8) Red Blood Count 3.17 M/UL (4.20-5.40) L Hemoglobin 9.2 G/DL (12.0-16.0) #L Hematocrit 28.7 % (37.0-47.0) #L Mean Corpuscular Volume 91 FL (80-99) Mean Corpuscular Hemoglobin 28.9 PG (27.0-31.0) Mean Corpuscular Hemoglobin Concent 31.9 G/DL (32.0-36.0) L Red Cell Distribution Width 15.5 % (11.6-14.8) H Platelet Count 177 K/UL (150-450) Mean Platelet Volume 8.1 FL (6.5-10.1) Neutrophils (%) (Auto) 70.0 % (45.0-75.0) Lymphocytes (%) (Auto) 15.3 % (20.0-45.0) L Monocytes (%) (Auto) 8.4 % (1.0-10.0) Eosinophils (%) (Auto) 5.9 % (0.0-3.0) H Basophils (%) (Auto) 0.3 % (0.0-2.0) Prothrombin Time 12.0 SEC (9.30-11.50) H Prothromb Time International Ratio 1.1 (0.9-1.1) Activated Partial Thromboplast Time 31 SEC (23-33) Sodium Level 139 MMOL/L (136-145) Potassium Level 3.5 MMOL/L (3.5-5.1) Chloride Level 100 MMOL/L (98-107) Carbon Dioxide Level 31 MMOL/L (21-32) Anion Gap 8 mmol/L (5-15) Blood Urea Nitrogen 25 mg/dL (7-18) H Creatinine 6.8 MG/DL (0.55-1.30) H Estimat Glomerular Filtration Rate 7.6 mL/min (>60) Glucose Level 103 MG/DL (74-106) Calcium Level 9.5 MG/DL (8.5-10.1) Intake and Output 05/05/18 05/06/18 18:59 06:59 Intake Total 480 ml Balance 480 ml Intake Oral 480 ml # Bowel Movements 2 1 Objective GENERAL: Awake, responsive, alert X 3 HEAD AND NECK: Pupils equal and reactive to light. Extraocular movements intact. Neck was supple. No JVD. LUNGS: Fair air entry. Fair respiratory effort. No wheeze or rhonchi. Decreased air in the bases. HEART: S1 and S2. Distant heart sounds. No murmur. ABDOMEN: Soft, nondistended, and nontender. Morbidly obese. EXTREMITIES: No cyanosis, clubbing, or edema. Right femoral area PermCath as well as left upper extremity AV fistula, non-functional. NEUROLOGIC: Cranial nerves II through XII are grossly intact. The patient is moving all the extremities spontaneously. PSYCHIATRIC: Mood and affect are intact. Assessment/Plan Assessment/Plan 1. Sepsis, most likely secondary to left upper lobe and, to a lesser extent, medial right lower lobe most likely representing multifocal pneumonia. 2. Hypotension, possible septic shock resolving. 3. Pancytopenia with severe thrombocytopenia resolving. 4. End-stage renal disease, on hemodialysis. 5. Altered mental status, most likely toxic metabolic encephalopathy as a result of infection as well as uremia. 6. Anemia of chronic kidney disease. 7. Morbid obesity. 8. Bradycardia. PLAN: In Telemetry. follow up laboratory Dr. Fredrick Conner from Nephrology consult Dr. Mcbride from ID consult. Discussed with the family member, brother at the bedside. Abx:continue off antibiotics. Code status is Full Code. DVT prophylaxis: heparin subcutaneous. DC Home tomorrow after dialysis. Ash Henley M.D. Ash Henley MD May 06, 2018 15:31
--- NOTE | 2018-05-06 17:06 | NUR ---
NURSE NOTES: Called [facility] and scheduled HD for 05/07/18
--- NOTE | 2018-05-06 19:31 | NUR ---
HAND-OFF: Report given to Taryn Bill.
--- NOTE | 2018-05-06 19:32 | NUR ---
NURSE NOTES: Report received from WILLI Daniels. Observed pt lying on bed, watching television. Denies pain at this time. A/O x4, calm and cooperative. SR with cardiac care nurse. On room air with 100% saturation. L AV shunt intact and R AV shunt intact. Rt femoral permocath, intact and patent. Bed in the lowest position. Side rails up x2. Call light within reach. Will continue to monitor.
[2018-05-06] MEDS: Dyna-Hex 2% Top Sol 2oz TOPIC SCH (20:58)
[2018-05-06] MEDS: Miralax 17gm pkt ORAL SCH (21:00)
[2018-05-06] MEDS: Epogen (for ESRD on dialysis) SUBQ SCH (21:20)
--- NOTE | 2018-05-06 22:13 | NUR ---
NURSE NOTES: Pt complain of pain on chest 5/10. Distraction measures done, turn off the light, television on, talking to patient. pt also c/o insomnia, Left message to MD and awaiting for call back. Will continue to monitor.
--- NOTE | 2018-05-06 22:46 | NUR ---
NURSE NOTES: Observed pt sleeping on the bed. No signs of pain noted at this time. Will continue to monitor.
[2018-05-07] VITALS: BP 90/49
[2018-05-07 04:00] VITALS: BP 117/54
--- NOTE | 2018-05-07 04:05 | NUR ---
NURSE NOTES: Observed pt sleeping on the bed. No acute distress noted at this time. Will continue to monitor.
[2018-05-07] MEDS: Midodrine 10mg tab ORAL SCH ×3 (06:26→21:22)
--- NOTE | 2018-05-07 07:40 | NUR ---
HAND-OFF: Report given to WILLI Rocha. Observed pt sleeping on the bed. No acute distress noted at this time.
--- NOTE | 2018-05-07 07:41 | NUR ---
NURSE NOTES: Report received from WILLI Sahu. Pt is resting in bed, sleeping. Pt breathing is even and unlabored. No signs and symptoms of acute distress at this time. Bed placed in lowest position with brake engaged and two side rails up. Call light and side table placed within reach. Will continue to monitor and follow plan of care.
[2018-05-07 08:00] VITALS: BP 102/62
[2018-05-07 08:18] LABS: BASOPHILS % (AUTO) 0.8 % (0.0-2.0); EOSINOPHILS % (AUTO) 7.9 % (0.0-3.0); HEMATOCRIT 30.9 % (37.0-47.0); MEAN CORPUSCULAR VOLUME 91 FL (80-99); MONOCYTES % (AUTO) 9.2 % (1.0-10.0); NEUTROPHILS % (AUTO) 59.2 % (45.0-75.0); PLATELET COUNT 180 K/UL (150-450); RED BLOOD COUNT 3.38 M/UL (4.20-5.40); RED CELL DISTRIBUTION WIDTH 15.9 % (11.6-14.8); WHITE BLOOD COUNT 5.1 K/UL (4.8-10.8)
[2018-05-07 08:32] LABS: ANION GAP 13 mmol/L (5-15); BLOOD UREA NITROGEN 29 mg/dL (7-18); CALCIUM 9.8 MG/DL (8.5-10.1); CARBON DIOXIDE 27 MMOL/L (21-32); CHLORIDE 100 MMOL/L (98-107); POTASSIUM 3.9 MMOL/L (3.5-5.1); SODIUM 140 MMOL/L (136-145)
[2018-05-07 08:35] LABS: AMMONIA 37 umol/L (11-32)
--- NOTE | 2018-05-07 08:55 | Pulmonology Progress Note ---
Assessment/Plan Assessment/Plan ASSESSMENT troponin leak 2 to renal failure sepsis septic shock-resolved acute hypoxemic resp failure-resolved PNA, s/p Rx ESRD on HD anemia of chronic kidney disease, s/p blood transfusion hx of HTN, currently hypotensive elevated LFT- resoled metabolic encephalopathy -resolved (probably due to septic shock) s/p EGD with banding of 7 bands of EV hiatal hernia portal HTN gastropathy PLAN OF CARE tele O2 prn to keep pulse ox above 90%, pulm toilet prn DVT prophylaxis cardio follows troponin leak 2 to renal failure BP stable with Midodrine HD as per nephro with close monitoring of volumes and renal parameters correct lytes prn HD pending for today s/p EGD 05/06 with EV banding fup with GI recs GI prophylaxis monitor HH with gol to keep Hg above 7, stool OB negative , CEA WNL anemia w/up c/w anemia of chronic disease, on EPO high ferritin noted avoid transfusion if possible pain management stool C dif and stool cx negative, ID follows keep off abx mold in sputum, identification of mold pending trend LFT, resolved pain management supportive care to MS if OK with cardio case discussed and evaluated by supervising physician Subjective Allergies: Coded Allergies: CEFAZOLIN (Verified Allergy, Unknown, 10/02/10) CIPROFLOXACIN (Verified Allergy, Unknown, 10/02/10) GENTAMICIN (Verified Allergy, Unknown, 10/02/10) KETAMINE (Verified Allergy, Unknown, 03/29/18) LEVOFLOXACIN (Verified Allergy, Unknown, 10/02/10) PENICILLINS (Verified Allergy, Unknown, ITCH, 10/02/10) Uncoded Allergies: CONTRAST MEDIA (Adverse Reaction, Mild, MILD ITCHING AFTER CONTRAST MEDIA, 04/30/17) Subjective denies SOB, reports some chest discomfort after procedure yesterday last troponin negative, , tele with SR Objective Last 24 Hour Vital Signs Date Time Temp Pulse Resp B/P (MAP) Pulse Ox O2 Delivery O2 Flow Rate FiO2 05/07/18 04:00 70 05/07/18 04:00 97.8 72 19 117/54 (75) 91 05/07/18 00:00 71 05/07/18 00:00 98.5 73 20 90/49 (63) 92 05/06/18 21:00 Room Air 05/06/18 20:44 Room Air 21 05/06/18 20:44 96 Room Air 21 1/18/19 20:00 75 05/06/18 20:00 98.5 78 22 95/50 (65) 100 05/06/18 16:00 98.3 76 21 89/48 (62) 94 05/06/18 15:56 78 05/06/18 12:08 73 18 99 05/06/18 12:06 78 18 99 05/06/18 11:52 65 05/06/18 11:37 98.0 05/06/18 11:20 98.0 73 18 118/56 99 Nasal Cannula 3 05/06/18 11:07 79 18 132/56 99 Nasal Cannula 3 05/06/18 11:02 77 18 123/59 99 Nasal Cannula 3 05/06/18 10:56 97.9 78 18 132/56 99 Nasal Cannula 3 05/06/18 09:59 Room Air 21 05/06/18 09:59 95 Room Air 21 Intake and Output 05/06/18 05/07/18 19:00 07:00 Intake Total 225 ml 600 ml Output Total 0 ml Balance 225 ml 600 ml Intake Oral 600 ml IV Total 225 ml Output Urine Total 0 ml # Bowel Movements 3 1 General Appearance: no acute distress HEENT: normocephalic, atraumatic, anicteric Respiratory/Chest: lungs clear - with moderate air exchange Cardiovascular: normal rate - SR on tele Abdomen: normal bowel sounds, soft, non tender Extremities: pedal pulses normal, other - trace to +1 edema BLE Neurologic/Psychiatric: abnormal gait, alert, oriented x 3, responsive Musculoskeletal: normal muscle bulk Laboratory Tests 05/06/18 09:10: White Blood Count 6.0, Red Blood Count 3.17L, Hemoglobin 9.2#L, Hematocrit 28.7# L, Mean Corpuscular Volume 91, Mean Corpuscular Hemoglobin 28.9, Mean Corpuscular Hemoglobin Concent 31.9L, Red Cell Distribution Width 15.5H, Platelet Count 177, Mean Platelet Volume 8.1, Neutrophils (%) (Auto) 70.0, Lymphocytes (%) (Auto) 15.3L, Monocytes (%) (Auto) 8.4, Eosinophils (%) (Auto) 5.9H, Basophils (%) (Auto) 0.3, Prothrombin Time 12.0H, Prothromb Time International Ratio 1.1, Activated Partial Thromboplast Time 31, Sodium Level 139, Potassium Level 3.5, Chloride Level 100, Carbon Dioxide Level 31, Anion Gap 8, Blood Urea Nitrogen 25H, Creatinine 6.8H, Estimat Glomerular Filtration Rate 7.6, Glucose Level 103, Calcium Level 9.5 05/07/18 06:05: White Blood Count 5.1, Red Blood Count 3.38L, Hemoglobin 10.0L, Hematocrit 30.9L , Mean Corpuscular Volume 91, Mean Corpuscular Hemoglobin 29.7, Mean Corpuscular Hemoglobin Concent 32.5, Red Cell Distribution Width 15.9H, Platelet Count 180, Mean Platelet Volume 8.6, Neutrophils (%) (Auto) 59.2, Lymphocytes (%) (Auto) 23.0, Monocytes (%) (Auto) 9.2, Eosinophils (%) (Auto) 7.9H, Basophils (%) (Auto) 0.8, Sodium Level 140, Potassium Level 3.9, Chloride Level 100, Carbon Dioxide Level 27, Anion Gap 13, Blood Urea Nitrogen 29H, Creatinine 8.0H, Estimat Glomerular Filtration Rate 6.4, Glucose Level 90, Calcium Level 9.8, Ammonia 37H, Hepatitis A IgM Antibody [Pending], Hepatitis B Surface Antigen [Pending], Hepatitis B Core IgM Antibody [Pending], Hepatitis C Antibody [Pending] Current Medications Medications (Trade) Dose Ordered Sig/Marcos Route PRN Reason Start Time Stop Time Status Last Admin Dose Admin Acetaminophen (Tylenol) 650 mg Q6H PRN ORAL Mild Pain/Temp > 100.5 05/04/18 12:00 05/12/18 11:59 05/07/18 00:44 Aspirin (ASA) 81 mg DAILY ORAL 05/05/18 09:00 05/17/18 08:59 Chlorhexidine Gluconate (Nivia-Hex 2%) 1 applic DAILY@1999 TOPIC 05/04/18 20:00 05/13/18 19:59 05/06/18 20:58 Citalopram Hydrobromide (celeXA) 40 mg DAILY ORAL 05/05/18 09:00 06/03/18 08:59 Epoetin Alejandro (Procrit (for ESRD on dialysis)) 10,000 units WED-WED-WED SUBQ 05/06/18 21:00 06/05/18 20:59 05/06/18 21:20 Guaifenesin (Robitussin) 300 mg Q6H PRN ORAL For Cough 05/04/18 12:00 05/14/18 11:59 Heparin Sodium (Porcine) (Heparin 5000 units/ml) 5,000 units EVERY 12 HOURS SUBQ 05/04/18 12:30 05/12/18 12:29 Loperamide HCl (Imodium) 2 mg Q4H PRN ORAL Diarrhea 05/04/18 12:00 05/25/18 11:59 05/06/18 21:03 Metoclopramide HCl (Reglan) 10 mg Q8H PRN IVP Nausea & Vomiting 05/04/18 12:00 05/28/18 11:59 Midodrine (Pro-Amatine) 10 mg Q8HR ORAL 05/04/18 14:00 05/19/18 13:59 05/07/18 06:26 Mirtazapine (Remeron) 7.5 mg BEDTIME ORAL 05/04/18 21:00 05/25/18 20:59 05/06/18 21:03 Pantoprazole (Protonix) 40 mg BIAC ORAL 05/04/18 16:30 06/03/18 16:29 05/07/18 06:26 Polyethylene Glycol (Miralax) 17 gm BEDTIME ORAL 05/04/18 21:00 05/21/18 20:59 Sevelamer Carbonate (Renvela) 2,400 mg THREE TIMES A DAY ORAL 05/04/18 13:00 05/13/18 08:59 05/06/18 13:46 Zolpidem Tartrate (Ambien) 5 mg HSPRN PRN ORAL Insomnia 05/06/18 23:30 05/13/18 23:29 Johanne King NP May 07, 2018 08:55
[2018-05-07] MEDS: Heparin 5000 units/ml inj SUBQ SCH ×3 (09:00→21:21)
[2018-05-07] MEDS: Citalopram Hydrobromide 10mg Tab ORAL SCH ×2 (09:00→10:22)
[2018-05-07] MEDS: Aspirin Baby 81mg ORAL SCH (09:07)
--- NOTE | 2018-05-07 09:30 | NUR ---
SS note Chart reviewed; patient lives alone and was independent prior. P.T to continue following, as able to participate. Patient possibly will need further therapy i.e SNF if unable to care for self upon discharge.
--- NOTE | 2018-05-07 09:39 | Nephrology Progress Note ---
Assessment/Plan Problem List: (1) ESRD (end stage renal disease) on dialysis (2) Hypotension (3) Anemia of renal disease Assessment: worsening (4) Metabolic encephalopathy (5) Pneumonia Assessment ESRD HypoThyroidism- Periodic Hypotension- encephalopathic , metabolic- Plan endoscopy 05/06 banding of esophageal varices Transfused dialysis 05/07 consider transfusion as needed- has antibodies Reglan for vomiting recheck serum cortisol level- noted add asa and isordil for rising Troponin add prn imodium for loose bm per orders midodrine per consultants antibiotics for pneumonia Subjective ROS Limited/Unobtainable: No Constitutional: Reports: malaise Objective Objective Last 24 Hour Vital Signs Date Time Temp Pulse Resp B/P (MAP) Pulse Ox O2 Delivery O2 Flow Rate FiO2 05/07/18 09:00 Room Air 05/07/18 09:00 69 05/07/18 08:00 97.7 83 19 102/62 (75) 92 05/07/18 04:00 70 05/07/18 04:00 97.8 72 19 117/54 (75) 91 05/07/18 00:00 71 05/07/18 00:00 98.5 73 20 90/49 (63) 92 05/06/18 21:00 Room Air 05/06/18 20:44 Room Air 21 05/06/18 20:44 96 Room Air 21 05/06/18 20:00 75 05/06/18 20:00 98.5 78 22 95/50 (65) 100 05/06/18 16:00 98.3 76 21 89/48 (62) 94 05/06/18 15:56 78 05/06/18 12:08 73 18 99 05/06/18 12:06 78 18 99 05/06/18 11:52 65 05/06/18 11:37 98.0 05/06/18 11:20 98.0 73 18 118/56 99 Nasal Cannula 3 05/06/18 11:07 79 18 132/56 99 Nasal Cannula 3 05/06/18 11:02 77 18 123/59 99 Nasal Cannula 3 05/06/18 10:56 97.9 78 18 132/56 99 Nasal Cannula 3 05/06/18 09:59 Room Air 21 05/06/18 09:59 95 Room Air 21 Intake and Output 05/06/18 05/07/18 19:00 07:00 Intake Total 225 ml 600 ml Output Total 0 ml Balance 225 ml 600 ml Intake Oral 600 ml IV Total 225 ml Output Urine Total 0 ml # Bowel Movements 3 1 Current Medications Medications (Trade) Dose Ordered Sig/Marcos Route PRN Reason Start Time Stop Time Status Last Admin Dose Admin Acetaminophen (Tylenol) 650 mg Q6H PRN ORAL Mild Pain/Temp > 100.5 05/04/18 12:00 05/12/18 11:59 05/07/18 00:44 Aspirin (ASA) 81 mg DAILY ORAL 05/05/18 09:00 05/17/18 08:59 05/07/18 09:07 Chlorhexidine Gluconate (Nivia-Hex 2%) 1 applic DAILY@1999 TOPIC 05/04/18 20:00 05/13/18 19:59 05/06/18 20:58 Citalopram Hydrobromide (celeXA) 40 mg DAILY ORAL 05/05/18 09:00 06/03/18 08:59 Epoetin Alejandro (Procrit (for ESRD on dialysis)) 10,000 units WED-WED-WED SUBQ 05/06/18 21:00 06/05/18 20:59 05/06/18 21:20 Guaifenesin (Robitussin) 300 mg Q6H PRN ORAL For Cough 05/04/18 12:00 05/14/18 11:59 Heparin Sodium (Porcine) (Heparin 5000 units/ml) 5,000 units EVERY 12 HOURS SUBQ 05/04/18 12:30 05/12/18 12:29 Loperamide HCl (Imodium) 2 mg Q4H PRN ORAL Diarrhea 05/04/18 12:00 05/25/18 11:59 05/06/18 21:03 Metoclopramide HCl (Reglan) 10 mg Q8H PRN IVP Nausea & Vomiting 05/04/18 12:00 05/28/18 11:59 Midodrine (Pro-Amatine) 10 mg Q8HR ORAL 05/04/18 14:00 05/19/18 13:59 05/07/18 06:26 Mirtazapine (Remeron) 7.5 mg BEDTIME ORAL 05/04/18 21:00 05/25/18 20:59 05/06/18 21:03 Pantoprazole (Protonix) 40 mg BIAC ORAL 05/04/18 16:30 06/03/18 16:29 05/07/18 06:26 Polyethylene Glycol (Miralax) 17 gm BEDTIME ORAL 05/04/18 21:00 05/21/18 20:59 Sevelamer Carbonate (Renvela) 2,400 mg THREE TIMES A DAY ORAL 05/04/18 13:00 05/13/18 08:59 05/06/18 13:46 Zolpidem Tartrate (Ambien) 5 mg HSPRN PRN ORAL Insomnia 05/06/18 23:30 05/13/18 23:29 Laboratory Tests 05/07/18 06:05: White Blood Count 5.1, Red Blood Count 3.38L, Hemoglobin 10.0L, Hematocrit 30.9L , Mean Corpuscular Volume 91, Mean Corpuscular Hemoglobin 29.7, Mean Corpuscular Hemoglobin Concent 32.5, Red Cell Distribution Width 15.9H, Platelet Count 180, Mean Platelet Volume 8.6, Neutrophils (%) (Auto) 59.2, Lymphocytes (%) (Auto) 23.0, Monocytes (%) (Auto) 9.2, Eosinophils (%) (Auto) 7.9H, Basophils (%) (Auto) 0.8, Sodium Level 140, Potassium Level 3.9, Chloride Level 100, Carbon Dioxide Level 27, Anion Gap 13, Blood Urea Nitrogen 29H, Creatinine 8.0H, Estimat Glomerular Filtration Rate 6.4, Glucose Level 90, Calcium Level 9.8, Ammonia 37H, Hepatitis A IgM Antibody [Pending], Hepatitis B Surface Antigen [Pending], Hepatitis B Core IgM Antibody [Pending], Hepatitis C Antibody [Pending] Height (Feet): 5 Height (Inches): 6.00 Weight (Pounds): 210 General Appearance: no apparent distress Objective no change Fredrick Conner MD May 07, 2018 09:39
--- NOTE | 2018-05-07 10:22 | Infectious Diseases Prog Note ---
Assessment/Plan Assessment/Plan antibiotics : none A 1. pneumonia s/p rx 2. renal failure on hemodialysis 3. hypertension 4. increased LFT improving P 1. continue off antibiotics 2. stool for c.diff Subjective Constitutional: Denies: fever, chills Respiratory: Reports: shortness of breath - decreased, dry cough - decreased Gastrointestinal/Abdominal: Reports: diarrhea; Denies: nausea, vomiting Musculoskeletal: Denies: pain Allergies: Coded Allergies: CEFAZOLIN (Verified Allergy, Unknown, 10/02/10) CIPROFLOXACIN (Verified Allergy, Unknown, 10/02/10) GENTAMICIN (Verified Allergy, Unknown, 10/02/10) KETAMINE (Verified Allergy, Unknown, 03/29/18) LEVOFLOXACIN (Verified Allergy, Unknown, 10/02/10) PENICILLINS (Verified Allergy, Unknown, ITCH, 10/02/10) Uncoded Allergies: CONTRAST MEDIA (Adverse Reaction, Mild, MILD ITCHING AFTER CONTRAST MEDIA, 04/30/17) Objective Vital Signs Last 24 Hour Vital Signs Date Time Temp Pulse Resp B/P (MAP) Pulse Ox O2 Delivery O2 Flow Rate FiO2 05/07/18 09:00 Room Air 05/07/18 09:00 69 05/07/18 08:00 97.7 83 19 102/62 (75) 92 05/07/18 04:00 70 05/07/18 04:00 97.8 72 19 117/54 (75) 91 05/07/18 00:00 71 05/07/18 00:00 98.5 73 20 90/49 (63) 92 05/06/18 21:00 Room Air 05/06/18 20:44 Room Air 21 05/06/18 20:44 96 Room Air 21 05/06/18 20:00 75 05/06/18 20:00 98.5 78 22 95/50 (65) 100 05/06/18 16:00 98.3 76 21 89/48 (62) 94 05/06/18 15:56 78 05/06/18 12:08 73 18 99 05/06/18 12:06 78 18 99 05/06/18 11:52 65 05/06/18 11:37 98.0 05/06/18 11:20 98.0 73 18 118/56 99 Nasal Cannula 3 05/06/18 11:07 79 18 132/56 99 Nasal Cannula 3 05/06/18 11:02 77 18 123/59 99 Nasal Cannula 3 05/06/18 10:56 97.9 78 18 132/56 99 Nasal Cannula 3 Height (Feet): 5 Height (Inches): 6.00 Weight (Pounds): 210 Respiratory/Chest: lungs clear Cardiovascular: normal rate, regular rhythm, no gallop/murmur Abdomen: soft, non tender Extremities: no edema, other - right groin catheter Laboratory Tests Test 05/07/18 06:05 White Blood Count 5.1 K/UL (4.8-10.8) Red Blood Count 3.38 M/UL (4.20-5.40) L Hemoglobin 10.0 G/DL (12.0-16.0) L Hematocrit 30.9 % (37.0-47.0) L Mean Corpuscular Volume 91 FL (80-99) Mean Corpuscular Hemoglobin 29.7 PG (27.0-31.0) Mean Corpuscular Hemoglobin Concent 32.5 G/DL (32.0-36.0) Red Cell Distribution Width 15.9 % (11.6-14.8) H Platelet Count 180 K/UL (150-450) Mean Platelet Volume 8.6 FL (6.5-10.1) Neutrophils (%) (Auto) 59.2 % (45.0-75.0) Lymphocytes (%) (Auto) 23.0 % (20.0-45.0) Monocytes (%) (Auto) 9.2 % (1.0-10.0) Eosinophils (%) (Auto) 7.9 % (0.0-3.0) H Basophils (%) (Auto) 0.8 % (0.0-2.0) Sodium Level 140 MMOL/L (136-145) Potassium Level 3.9 MMOL/L (3.5-5.1) Chloride Level 100 MMOL/L (98-107) Carbon Dioxide Level 27 MMOL/L (21-32) Anion Gap 13 mmol/L (5-15) Blood Urea Nitrogen 29 mg/dL (7-18) H Creatinine 8.0 MG/DL (0.55-1.30) H Estimat Glomerular Filtration Rate 6.4 mL/min (>60) Glucose Level 90 MG/DL (74-106) Calcium Level 9.8 MG/DL (8.5-10.1) Ammonia 37 umol/L (11-32) H Hepatitis A IgM Antibody Pending Hepatitis B Surface Antigen Pending Hepatitis B Core IgM Antibody Pending Hepatitis C Antibody Pending Current Medications Medications (Trade) Dose Ordered Sig/Marcos Route PRN Reason Start Time Stop Time Status Last Admin Dose Admin Acetaminophen (Tylenol) 650 mg Q6H PRN ORAL Mild Pain/Temp > 100.5 05/04/18 12:00 05/12/18 11:59 05/07/18 00:44 Aspirin (ASA) 81 mg DAILY ORAL 05/05/18 09:00 05/17/18 08:59 05/07/18 09:07 Chlorhexidine Gluconate (Nivia-Hex 2%) 1 applic DAILY@1999 TOPIC 05/04/18 20:00 05/13/18 19:59 05/06/18 20:58 Citalopram Hydrobromide (celeXA) 40 mg DAILY ORAL 05/05/18 09:00 06/03/18 08:59 Epoetin Alejandro (Procrit (for ESRD on dialysis)) 10,000 units WED-WED-WED SUBQ 05/06/18 21:00 06/05/18 20:59 05/06/18 21:20 Guaifenesin (Robitussin) 300 mg Q6H PRN ORAL For Cough 05/04/18 12:00 05/14/18 11:59 Heparin Sodium (Porcine) (Heparin 5000 units/ml) 5,000 units EVERY 12 HOURS SUBQ 05/04/18 12:30 05/12/18 12:29 Loperamide HCl (Imodium) 2 mg Q4H PRN ORAL Diarrhea 05/04/18 12:00 05/25/18 11:59 05/06/18 21:03 Metoclopramide HCl (Reglan) 10 mg Q8H PRN IVP Nausea & Vomiting 05/04/18 12:00 05/28/18 11:59 Midodrine (Pro-Amatine) 10 mg Q8HR ORAL 05/04/18 14:00 05/19/18 13:59 05/07/18 06:26 Mirtazapine (Remeron) 7.5 mg BEDTIME ORAL 05/04/18 21:00 05/25/18 20:59 05/06/18 21:03 Pantoprazole (Protonix) 40 mg BIAC ORAL 05/04/18 16:30 06/03/18 16:29 05/07/18 06:26 Polyethylene Glycol (Miralax) 17 gm BEDTIME ORAL 05/04/18 21:00 05/21/18 20:59 Sevelamer Carbonate (Renvela) 2,400 mg THREE TIMES A DAY ORAL 05/04/18 13:00 05/13/18 08:59 05/06/18 13:46 Zolpidem Tartrate (Ambien) 5 mg HSPRN PRN ORAL Insomnia 05/06/18 23:30 05/13/18 23:29 Wagner Bryant MD May 07, 2018 10:22
--- NOTE | 2018-05-07 11:53 | Cardiac Electrophysiology PN ---
Assessment/Plan Assessment/Plan 1. Troponin leak due to renal failure. Levels low and flat. No chest pain. 2. S/P Septic shock. Continue midodrine 10 mg tid. S/P iv fluid and transfusion 3. Bradycardia. Resolved. 4. Anterior T-wave inversion. No chest pain. EF 60% 5. End-stage renal disease, on hemodialysis, per Dr. Conner. 6. Diarrhea C. Diff was negative 7. Severe anemia Hb 6.5 s/p transfusion DW RN Subjective Subjective On tele. No CP or SOB. No further hypotension. Awaiting HD at 6 pm today. RN at bedside Objective Last 24 Hour Vital Signs Date Time Temp Pulse Resp B/P (MAP) Pulse Ox O2 Delivery O2 Flow Rate FiO2 05/07/18 09:00 Room Air 05/07/18 09:00 69 05/07/18 08:00 97.7 83 19 102/62 (75) 92 05/07/18 04:00 70 05/07/18 04:00 97.8 72 19 117/54 (75) 91 05/07/18 00:00 71 05/07/18 00:00 98.5 73 20 90/49 (63) 92 05/06/18 21:00 Room Air 05/06/18 20:44 Room Air 21 05/06/18 20:44 96 Room Air 21 05/06/18 20:00 75 05/06/18 20:00 98.5 78 22 95/50 (65) 100 05/06/18 16:00 98.3 76 21 89/48 (62) 94 05/06/18 15:56 78 05/06/18 12:08 73 18 99 05/06/18 12:06 78 18 99 Intake and Output 05/06/18 05/07/18 19:00 07:00 Intake Total 225 ml 600 ml Output Total 0 ml Balance 225 ml 600 ml Intake Oral 600 ml IV Total 225 ml Output Urine Total 0 ml # Bowel Movements 3 1 Laboratory Tests Test 05/07/18 06:05 White Blood Count 5.1 K/UL (4.8-10.8) Red Blood Count 3.38 M/UL (4.20-5.40) L Hemoglobin 10.0 G/DL (12.0-16.0) L Hematocrit 30.9 % (37.0-47.0) L Mean Corpuscular Volume 91 FL (80-99) Mean Corpuscular Hemoglobin 29.7 PG (27.0-31.0) Mean Corpuscular Hemoglobin Concent 32.5 G/DL (32.0-36.0) Red Cell Distribution Width 15.9 % (11.6-14.8) H Platelet Count 180 K/UL (150-450) Mean Platelet Volume 8.6 FL (6.5-10.1) Neutrophils (%) (Auto) 59.2 % (45.0-75.0) Lymphocytes (%) (Auto) 23.0 % (20.0-45.0) Monocytes (%) (Auto) 9.2 % (1.0-10.0) Eosinophils (%) (Auto) 7.9 % (0.0-3.0) H Basophils (%) (Auto) 0.8 % (0.0-2.0) Sodium Level 140 MMOL/L (136-145) Potassium Level 3.9 MMOL/L (3.5-5.1) Chloride Level 100 MMOL/L (98-107) Carbon Dioxide Level 27 MMOL/L (21-32) Anion Gap 13 mmol/L (5-15) Blood Urea Nitrogen 29 mg/dL (7-18) H Creatinine 8.0 MG/DL (0.55-1.30) H Estimat Glomerular Filtration Rate 6.4 mL/min (>60) Glucose Level 90 MG/DL (74-106) Calcium Level 9.8 MG/DL (8.5-10.1) Ammonia 37 umol/L (11-32) H Hepatitis A IgM Antibody Pending Hepatitis B Surface Antigen Pending Hepatitis B Core IgM Antibody Pending Hepatitis C Antibody Pending Objective HEAD AND NECK: No JVD. LUNGS: Decreased breath sounds. CARDIOVASCULAR: Regular S1 and S2 no GRM ABDOMEN: Soft. EXTREMITIES: No edema Tc Liang MD May 07, 2018 11:53
[2018-05-07 12:00] VITALS: BP 98/50
--- NOTE | 2018-05-07 15:50 | Internal Med Progress Note ---
Subjective Date of Service: May 07, 2018 Physician Name Harrell,Edward Attending Physician Ash Henley MD Current Medications Medications (Trade) Dose Ordered Sig/Marcos Route PRN Reason Start Time Stop Time Status Last Admin Dose Admin Acetaminophen (Tylenol) 650 mg Q6H PRN ORAL Mild Pain/Temp > 100.5 05/04/18 12:00 05/12/18 11:59 05/07/18 00:44 Aspirin (ASA) 81 mg DAILY ORAL 05/05/18 09:00 05/17/18 08:59 05/07/18 09:07 Chlorhexidine Gluconate (Nivia-Hex 2%) 1 applic DAILY@1999 TOPIC 05/04/18 20:00 05/13/18 19:59 05/06/18 20:58 Citalopram Hydrobromide (celeXA) 40 mg DAILY ORAL 05/05/18 09:00 06/03/18 08:59 05/07/18 10:22 Epoetin Alejandro (Procrit (for ESRD on dialysis)) 10,000 units WED-WED-WED SUBQ 05/06/18 21:00 06/05/18 20:59 05/06/18 21:20 Guaifenesin (Robitussin) 300 mg Q6H PRN ORAL For Cough 05/04/18 12:00 05/14/18 11:59 Heparin Sodium (Porcine) (Heparin 5000 units/ml) 5,000 units EVERY 12 HOURS SUBQ 05/04/18 12:30 05/12/18 12:29 Loperamide HCl (Imodium) 2 mg Q4H PRN ORAL Diarrhea 05/04/18 12:00 05/25/18 11:59 05/06/18 21:03 Metoclopramide HCl (Reglan) 10 mg Q8H PRN IVP Nausea & Vomiting 05/04/18 12:00 05/28/18 11:59 Midodrine (Pro-Amatine) 10 mg Q8HR ORAL 05/04/18 14:00 05/19/18 13:59 05/07/18 13:29 Mirtazapine (Remeron) 7.5 mg BEDTIME ORAL 05/04/18 21:00 05/25/18 20:59 05/06/18 21:03 Pantoprazole (Protonix) 40 mg BIAC ORAL 05/04/18 16:30 06/03/18 16:29 05/07/18 06:26 Polyethylene Glycol (Miralax) 17 gm BEDTIME ORAL 05/04/18 21:00 05/21/18 20:59 Sevelamer Carbonate (Renvela) 2,400 mg THREE TIMES A DAY ORAL 05/04/18 13:00 05/13/18 08:59 05/07/18 13:42 Zolpidem Tartrate (Ambien) 5 mg HSPRN PRN ORAL Insomnia 05/06/18 23:30 05/13/18 23:29 Allergies: Coded Allergies: CEFAZOLIN (Verified Allergy, Unknown, 10/02/10) CIPROFLOXACIN (Verified Allergy, Unknown, 10/02/10) GENTAMICIN (Verified Allergy, Unknown, 10/02/10) KETAMINE (Verified Allergy, Unknown, 03/29/18) LEVOFLOXACIN (Verified Allergy, Unknown, 10/02/10) PENICILLINS (Verified Allergy, Unknown, ITCH, 10/02/10) Uncoded Allergies: CONTRAST MEDIA (Adverse Reaction, Mild, MILD ITCHING AFTER CONTRAST MEDIA, 04/30/17) ROS Limited/Unobtainable: No Constitutional: Reports: no symptoms HEENT: Reports: no symptoms Cardiovascular: Reports: no symptoms Respiratory: Reports: no symptoms Gastrointestinal/Abdominal: Reports: no symptoms Genitourinary: Reports: no symptoms Neurologic/Psychiatric: Reports: no symptoms Subjective 53 YO F admitted with shortness of breath. Now pneumonia. Cover for Int Med- Dr Henley. Hypotensive today-transferred to tele. Anemia pending transfusion and EGD/Colonoscopy Objective Last Vital Signs Date Time Temp Pulse Resp B/P (MAP) Pulse Ox O2 Delivery O2 Flow Rate FiO2 05/07/18 12:00 69 05/07/18 12:00 97.7 21 98/50 (66) 91 05/07/18 09:00 Room Air 05/06/18 20:44 21 05/06/18 11:20 3 Laboratory Tests Test 05/07/18 06:05 White Blood Count 5.1 K/UL (4.8-10.8) Red Blood Count 3.38 M/UL (4.20-5.40) L Hemoglobin 10.0 G/DL (12.0-16.0) L Hematocrit 30.9 % (37.0-47.0) L Mean Corpuscular Volume 91 FL (80-99) Mean Corpuscular Hemoglobin 29.7 PG (27.0-31.0) Mean Corpuscular Hemoglobin Concent 32.5 G/DL (32.0-36.0) Red Cell Distribution Width 15.9 % (11.6-14.8) H Platelet Count 180 K/UL (150-450) Mean Platelet Volume 8.6 FL (6.5-10.1) Neutrophils (%) (Auto) 59.2 % (45.0-75.0) Lymphocytes (%) (Auto) 23.0 % (20.0-45.0) Monocytes (%) (Auto) 9.2 % (1.0-10.0) Eosinophils (%) (Auto) 7.9 % (0.0-3.0) H Basophils (%) (Auto) 0.8 % (0.0-2.0) Sodium Level 140 MMOL/L (136-145) Potassium Level 3.9 MMOL/L (3.5-5.1) Chloride Level 100 MMOL/L (98-107) Carbon Dioxide Level 27 MMOL/L (21-32) Anion Gap 13 mmol/L (5-15) Blood Urea Nitrogen 29 mg/dL (7-18) H Creatinine 8.0 MG/DL (0.55-1.30) H Estimat Glomerular Filtration Rate 6.4 mL/min (>60) Glucose Level 90 MG/DL (74-106) Calcium Level 9.8 MG/DL (8.5-10.1) Ammonia 37 umol/L (11-32) H Hepatitis A IgM Antibody Pending Hepatitis B Surface Antigen Pending Hepatitis B Core IgM Antibody Pending Hepatitis C Antibody Pending Microbiology Date/Time Source Procedure Growth Status 05/07/18 10:29 Stool Clostridium difficile Toxin Assay - Final Complete Intake and Output 05/06/18 05/07/18 18:59 06:59 Intake Total 225 ml 600 ml Output Total 0 ml Balance 225 ml 600 ml Intake Oral 600 ml IV Total 225 ml Output Urine Total 0 ml # Bowel Movements 3 1 Objective Objective GENERAL: Awake, responsive, alert HEAD AND NECK: Pupils equal and reactive to light. Extraocular movements intact. Neck was supple. No JVD. LUNGS: Fair air entry. Poor respiratory effort. No wheeze or rhonchi. Decreased air in the bases. HEART: S1 and S2. Distant heart sounds. No murmur. ABDOMEN: Soft, nondistended, and nontender. Morbidly obese. EXTREMITIES: No cyanosis, clubbing, or edema. Right femoral area PermCath as well as left upper extremity AV fistula, functional. NEUROLOGIC: Cranial nerves II through XII are grossly intact. The patient is moving all the extremities spontaneously. Gait was not assessed due to the patient's status. PSYCHIATRIC: Mood and affect are intact. Assessment/Plan Assessment/Plan Assessment/Plan Assessment/Plan 1. Sepsis, most likely secondary to left upper lobe and, to a lesser extent, medial right lower lobe most likely representing multifocal pneumonia. 2. Hypotension, possible septic shock. 3. Pancytopenia with severe thrombocytopenia resolving. 4. End-stage renal disease, on hemodialysis. 5. Altered mental status, most likely toxic metabolic encephalopathy as a result of infection as well as uremia. 6. Anemia of chronic kidney disease. 7. Morbid obesity. 8. Bradycardia. 9. Diarrhea 10. Abdominal pain. 11. Severe anemia PLAN: follow up laboratory and cultures. Dr. Fredrick Conner from Nephrology consult; Hemodialysis 05/07/18. Dr. Mcbride from ID consult. Discussed with the family member, brother at the bedside. Abx:Meropenem, doxycycline and vfend per ID Code status is Full Code. DVT prophylaxis: heparin subcutaneous. continue Dopamine Drip CT of chest noted. Cortisol level Pending. C. Diff neg. Send stool for repeat Continue dopamine See GI consult; KUB=no obstruction advance diet S/P Transfusion 1 unit PRBC 05/05/18 Edward Harrell MD May 07, 2018 15:50
[2018-05-07 16:00] VITALS: BP 145/54
[2018-05-07] MEDS: Loperamide 2mg cap ORAL PRN ×2 (16:07→21:22)
--- NOTE | 2018-05-07 18:46 | General Progress Note ---
Assessment/Plan Assessment/Plan Assessment/Plan Problems: (1) Epigastric abdominal pain ICD Codes: R10.13 - Epigastric pain SNOMED: 80247850 (2) Anxiety ICD Codes: F41.9 - Anxiety disorder, unspecified SNOMED: 03964008 (3) Constipation ICD Codes: K59.00 - Constipation, unspecified SNOMED: 89633724 (4) Anemia of renal disease (5) s/p variceal banding Recommendations Hold all blood thinners Full liquid diet protonix daily zofran prn fu labs bowel regimen pain mgmt PT evaluation Subjective Allergies: Coded Allergies: CEFAZOLIN (Verified Allergy, Unknown, 10/02/10) CIPROFLOXACIN (Verified Allergy, Unknown, 10/02/10) GENTAMICIN (Verified Allergy, Unknown, 10/02/10) KETAMINE (Verified Allergy, Unknown, 03/29/18) LEVOFLOXACIN (Verified Allergy, Unknown, 10/02/10) PENICILLINS (Verified Allergy, Unknown, ITCH, 10/02/10) Uncoded Allergies: CONTRAST MEDIA (Adverse Reaction, Mild, MILD ITCHING AFTER CONTRAST MEDIA, 04/30/17) Subjective Feels OK no abdominal complaints Objective Last 24 Hour Vital Signs Date Time Temp Pulse Resp B/P (MAP) Pulse Ox O2 Delivery O2 Flow Rate FiO2 05/07/18 16:00 97.6 74 20 145/54 (84) 94 05/07/18 16:00 72 05/07/18 12:00 69 05/07/18 12:00 97.7 76 21 98/50 (66) 91 05/07/18 09:00 Room Air 05/07/18 09:00 69 05/07/18 08:00 97.7 83 19 102/62 (75) 92 05/07/18 04:00 70 05/07/18 04:00 97.8 72 19 117/54 (75) 91 05/07/18 00:00 71 05/07/18 00:00 98.5 73 20 90/49 (63) 92 05/06/18 21:00 Room Air 05/06/18 20:44 Room Air 21 05/06/18 20:44 96 Room Air 21 05/06/18 20:00 75 05/06/18 20:00 98.5 78 22 95/50 (65) 100 Intake and Output 05/06/18 05/07/18 18:59 06:59 Intake Total 225 ml 600 ml Output Total 0 ml Balance 225 ml 600 ml Intake Oral 600 ml IV Total 225 ml Output Urine Total 0 ml # Bowel Movements 3 1 Laboratory Tests 05/07/18 06:05: White Blood Count 5.1, Red Blood Count 3.38L, Hemoglobin 10.0L, Hematocrit 30.9L , Mean Corpuscular Volume 91, Mean Corpuscular Hemoglobin 29.7, Mean Corpuscular Hemoglobin Concent 32.5, Red Cell Distribution Width 15.9H, Platelet Count 180, Mean Platelet Volume 8.6, Neutrophils (%) (Auto) 59.2, Lymphocytes (%) (Auto) 23.0, Monocytes (%) (Auto) 9.2, Eosinophils (%) (Auto) 7.9H, Basophils (%) (Auto) 0.8, Sodium Level 140, Potassium Level 3.9, Chloride Level 100, Carbon Dioxide Level 27, Anion Gap 13, Blood Urea Nitrogen 29H, Creatinine 8.0H, Estimat Glomerular Filtration Rate 6.4, Glucose Level 90, Calcium Level 9.8, Ammonia 37H, Hepatitis A IgM Antibody [Pending], Hepatitis B Surface Antigen [Pending], Hepatitis B Core IgM Antibody [Pending], Hepatitis C Antibody [Pending] Height (Feet): 5 Height (Inches): 6.00 Weight (Pounds): 210 Objective WDWN NCAT supple CTA RRR abd soft, mild diffuse abd TTP (+) edema non focal Kevin Kramer MD May 07, 2018 18:46
--- NOTE | 2018-05-07 19:29 | NUR ---
HAND-OFF: Report given to WILLI Acevedo.
--- NOTE | 2018-05-07 19:30 | NUR ---
NURSE NOTES: Received report from WILLI Adler. Patient is in bed awake, alert and oriented x4 with no signs of acute distress. Respiration even and non labored on room air. Vitals stable. Bed in lowest position. Call light within reach. Will continue plan of care.
[2018-05-07 20:00] VITALS: BP 99/44
[2018-05-07] MEDS: Miralax 17gm pkt ORAL SCH (21:00)
[2018-05-07] MEDS: Dyna-Hex 2% Top Sol 2oz TOPIC SCH (21:22)
--- NOTE | 2018-05-07 21:30 | General Progress Note ---
Assessment/Plan Problem List: (1) Anxiety ICD Codes: F41.9 - Anxiety disorder, unspecified SNOMED: 54908514 (2) Panic attack ICD Codes: F41.0 - Panic disorder [episodic paroxysmal anxiety] SNOMED: 838069173 Assessment/Plan Celexa 40mg qam Remeron 7.5 mg qhs provided ro/st Subjective Neurologic/Psychiatric: Reports: anxiety, depressed, emotional problems Allergies: Coded Allergies: CEFAZOLIN (Verified Allergy, Unknown, 10/02/10) CIPROFLOXACIN (Verified Allergy, Unknown, 10/02/10) GENTAMICIN (Verified Allergy, Unknown, 10/02/10) KETAMINE (Verified Allergy, Unknown, 03/29/18) LEVOFLOXACIN (Verified Allergy, Unknown, 10/02/10) PENICILLINS (Verified Allergy, Unknown, ITCH, 10/02/10) Uncoded Allergies: CONTRAST MEDIA (Adverse Reaction, Mild, MILD ITCHING AFTER CONTRAST MEDIA, 04/30/17) Objective Last 24 Hour Vital Signs Date Time Temp Pulse Resp B/P (MAP) Pulse Ox O2 Delivery O2 Flow Rate FiO2 05/07/18 19:53 Room Air 05/07/18 16:00 97.6 74 20 145/54 (84) 94 05/07/18 16:00 72 05/07/18 12:00 69 05/07/18 12:00 97.7 76 21 98/50 (66) 91 05/07/18 09:00 Room Air 05/07/18 09:00 69 05/07/18 08:00 97.7 83 19 102/62 (75) 92 05/07/18 04:00 70 05/07/18 04:00 97.8 72 19 117/54 (75) 91 05/07/18 00:00 71 05/07/18 00:00 98.5 73 20 90/49 (63) 92 Intake and Output 05/06/18 05/07/18 19:00 07:00 Intake Total 225 ml 600 ml Output Total 0 ml Balance 225 ml 600 ml Intake Oral 600 ml IV Total 225 ml Output Urine Total 0 ml # Bowel Movements 3 1 Laboratory Tests 05/07/18 06:05: White Blood Count 5.1, Red Blood Count 3.38L, Hemoglobin 10.0L, Hematocrit 30.9L , Mean Corpuscular Volume 91, Mean Corpuscular Hemoglobin 29.7, Mean Corpuscular Hemoglobin Concent 32.5, Red Cell Distribution Width 15.9H, Platelet Count 180, Mean Platelet Volume 8.6, Neutrophils (%) (Auto) 59.2, Lymphocytes (%) (Auto) 23.0, Monocytes (%) (Auto) 9.2, Eosinophils (%) (Auto) 7.9H, Basophils (%) (Auto) 0.8, Sodium Level 140, Potassium Level 3.9, Chloride Level 100, Carbon Dioxide Level 27, Anion Gap 13, Blood Urea Nitrogen 29H, Creatinine 8.0H, Estimat Glomerular Filtration Rate 6.4, Glucose Level 90, Calcium Level 9.8, Ammonia 37H, Hepatitis A IgM Antibody [Pending], Hepatitis B Surface Antigen [Pending], Hepatitis B Core IgM Antibody [Pending], Hepatitis C Antibody [Pending] Height (Feet): 5 Height (Inches): 6.00 Weight (Pounds): 210 General Appearance: WD/WN, no apparent distress, alert, obese Neurologic: oriented x 3, responsive, depressed affect Edwin Brown MD May 07, 2018 21:30
[2018-05-07] MEDS: Zolpidem 5mg tab ORAL PRN (23:47)
[2018-05-08] VITALS (7 sets, daily range): BP systolic 76–95; BP diastolic 37–52
[2018-05-08 05:35] LABS: BASOPHILS % (AUTO) 0.7 % (0.0-2.0); EOSINOPHILS % (AUTO) 8.7 % (0.0-3.0); HEMATOCRIT 27.8 % (37.0-47.0); HEMOGLOBIN 8.9 G/DL (12.0-16.0); MEAN CORPUSCULAR VOLUME 91 FL (80-99); NEUTROPHILS % (AUTO) 59.6 % (45.0-75.0); PLATELET COUNT 176 K/UL (150-450); RED BLOOD COUNT 3.07 M/UL (4.20-5.40); RED CELL DISTRIBUTION WIDTH 15.6 % (11.6-14.8); WHITE BLOOD COUNT 4.9 K/UL (4.8-10.8)
[2018-05-08 05:45] LABS: ALANINE AMINOTRANSFERASE 12 U/L (12-78); ALBUMIN 2.7 G/DL (3.4-5.0); ALBUMIN/GLOBULIN RATIO 0.6 (1.0-2.7); ALKALINE PHOSPHATASE 257 U/L (46-116); ANION GAP 6 mmol/L (5-15); ASPARTATE AMINO TRANSFERASE 14 U/L (15-37); BILIRUBIN,TOTAL 0.5 MG/DL (0.2-1.0); BLOOD UREA NITROGEN 19 mg/dL (7-18); CALCIUM 9.2 MG/DL (8.5-10.1); CARBON DIOXIDE 35 MMOL/L (21-32); CHLORIDE 100 MMOL/L (98-107); CREATININE 6.1 MG/DL (0.55-1.30); POTASSIUM 3.4 MMOL/L (3.5-5.1); SODIUM 141 MMOL/L (136-145)
[2018-05-08] MEDS: Midodrine 10mg tab ORAL SCH ×3 (06:24→22:05)
--- NOTE | 2018-05-08 07:13 | NUR ---
HAND-OFF: Report given to WILLI Adler. Patient in bed asleep with no signs of acute distress. No SOB.
--- NOTE | 2018-05-08 07:14 | NUR ---
NURSE NOTES: Report received from WILLI Acevedo. Pt is resting in bed, sleeping. Low blood pressure. Pt breathing is even and unlabored in room air, no signs and symptoms of acute distress at this time. Bed placed in lowest position with brake engaged and two side rails up. Call light and side table placed within reach. Will continue to monitor and follow plan of care.
--- NOTE | 2018-05-08 07:31 | Pulmonology Progress Note ---
Assessment/Plan Assessment/Plan ASSESSMENT troponin leak 2 to renal failure sepsis septic shock-resolved acute hypoxemic resp failure-resolved PNA, s/p Rx ESRD on HD anemia of chronic kidney disease, s/p blood transfusion hx of HTN, currently hypotensive elevated LFT- resoled metabolic encephalopathy -resolved (probably due to septic shock) s/p EGD with banding of 7 bands of EV hiatal hernia portal HTN gastropathy PLAN OF CARE tele O2 prn to keep pulse ox above 90%, pulm toilet prn DVT prophylaxis cardio follows troponin leak 2 to renal failure BP stable with Midodrine HD as per nephro with close monitoring of volumes and renal parameters correct lytes prn HD pending for today s/p EGD 05/06 with EV banding started on diet as tolerated fup with GI recs - hold all blood thinners GI prophylaxis a/emetic prn monitor HH with gol to keep Hg above 7, stool OB negative , CEA WNL anemia w/up c/w anemia of chronic disease, on EPO high ferritin noted avoid transfusion if possible pain management stool C dif and stool cx negative, ID follows keep off abx mold in sputum, identification of mold pending trend LFT, resolved pain management supportive care to MS if OK with cardio case discussed and evaluated by supervising physician Subjective Allergies: Coded Allergies: CEFAZOLIN (Verified Allergy, Unknown, 10/02/10) CIPROFLOXACIN (Verified Allergy, Unknown, 10/02/10) GENTAMICIN (Verified Allergy, Unknown, 10/02/10) KETAMINE (Verified Allergy, Unknown, 03/29/18) LEVOFLOXACIN (Verified Allergy, Unknown, 10/02/10) PENICILLINS (Verified Allergy, Unknown, ITCH, 10/02/10) Uncoded Allergies: CONTRAST MEDIA (Adverse Reaction, Mild, MILD ITCHING AFTER CONTRAST MEDIA, 04/30/17) Subjective denies SOB, had HD yesterday last troponin negative, , tele with SR Objective Last 24 Hour Vital Signs Date Time Temp Pulse Resp B/P (MAP) Pulse Ox O2 Delivery O2 Flow Rate FiO2 05/08/18 04:00 75 05/08/18 04:00 98.8 68 20 76/44 (55) 96 05/08/18 00:00 75 05/08/18 00:00 98.7 73 20 90/49 (63) 96 05/07/18 21:00 Room Air 05/07/18 20:00 78 05/07/18 20:00 97.0 78 20 99/44 (62) 94 05/07/18 19:53 Room Air 05/07/18 16:00 97.6 74 20 145/54 (84) 94 05/07/18 16:00 72 05/07/18 12:00 69 05/07/18 12:00 97.7 76 21 98/50 (66) 91 05/07/18 09:00 Room Air 05/07/18 09:00 69 05/07/18 08:00 97.7 83 19 102/62 (75) 92 Intake and Output 05/07/18 05/08/18 19:00 07:00 Intake Total 700 ml 50 ml Output Total 2500 ml Balance 700 ml -2450 ml Intake Oral 700 ml 50 ml Hemodialysis UF 2500 ml # Voids 3 # Bowel Movements 1 Objective General Appearance: no acute distress HEENT: normocephalic, atraumatic, anicteric Respiratory/Chest: lungs clear - with moderate air exchange Cardiovascular: normal rate - SR on tele Abdomen: normal bowel sounds, soft, non tender Extremities: pedal pulses normal, other - trace to +1 edema BLE Neurologic/Psychiatric: abnormal gait, alert, oriented x 3, responsive Musculoskeletal: normal muscle bulk Microbiology Date/Time Source Procedure Growth Status 05/07/18 10:29 Stool Clostridium difficile Toxin Assay - Final Complete Laboratory Tests 05/08/18 05:00: White Blood Count 4.9, Red Blood Count 3.07L, Hemoglobin 8.9L, Hematocrit 27.8L , Mean Corpuscular Volume 91, Mean Corpuscular Hemoglobin 28.9, Mean Corpuscular Hemoglobin Concent 31.9L, Red Cell Distribution Width 15.6H, Platelet Count 176, Mean Platelet Volume 8.6, Neutrophils (%) (Auto) 59.6, Lymphocytes (%) (Auto) 21.0, Monocytes (%) (Auto) 10.0, Eosinophils (%) (Auto) 8.7H, Basophils (%) (Auto) 0.7, Sodium Level 141, Potassium Level 3.4L, Chloride Level 100, Carbon Dioxide Level 35H, Anion Gap 6, Blood Urea Nitrogen 19H, Creatinine 6.1H, Estimat Glomerular Filtration Rate 8.7, Glucose Level 91, Uric Acid 3.9, Calcium Level 9.2, Phosphorus Level 3.0, Total Bilirubin 0.5, Aspartate Amino Transf (AST/SGOT) 14L, Alanine Aminotransferase (ALT/SGPT) 12, Alkaline Phosphatase 257H, Total Protein 7.2, Albumin 2.7L, Globulin 4.5, Albumin/Globulin Ratio 0.6L Current Medications Medications (Trade) Dose Ordered Sig/Marcos Route PRN Reason Start Time Stop Time Status Last Admin Dose Admin Acetaminophen (Tylenol) 650 mg Q6H PRN ORAL Mild Pain/Temp > 100.5 05/04/18 12:00 05/12/18 11:59 05/07/18 00:44 Aspirin (ASA) 81 mg DAILY ORAL 05/05/18 09:00 05/17/18 08:59 05/07/18 09:07 Chlorhexidine Gluconate (Nivia-Hex 2%) 1 applic DAILY@2000 TOPIC 05/04/18 20:00 05/13/18 19:59 05/07/18 21:22 Citalopram Hydrobromide (celeXA) 40 mg DAILY ORAL 05/05/18 09:00 06/03/18 08:59 05/07/18 10:22 Epoetin Alejandro (Procrit (for ESRD on dialysis)) 10,000 units WED-WED-WED SUBQ 05/06/18 21:00 06/05/18 20:59 05/06/18 21:20 Guaifenesin (Robitussin) 300 mg Q6H PRN ORAL For Cough 05/04/18 12:00 05/14/18 11:59 Heparin Sodium (Porcine) (Heparin 5000 units/ml) 5,000 units EVERY 12 HOURS SUBQ 05/04/18 12:30 05/12/18 12:29 Loperamide HCl (Imodium) 2 mg Q4H PRN ORAL Diarrhea 05/04/18 12:00 05/25/18 11:59 05/07/18 21:22 Metoclopramide HCl (Reglan) 10 mg Q8H PRN IVP Nausea & Vomiting 05/04/18 12:00 05/28/18 11:59 Midodrine (Pro-Amatine) 10 mg Q8HR ORAL 05/04/18 14:00 05/19/18 13:59 05/08/18 06:24 Mirtazapine (Remeron) 7.5 mg BEDTIME ORAL 05/04/18 21:00 05/25/18 20:59 05/07/18 21:21 Pantoprazole (Protonix) 40 mg BIAC ORAL 05/04/18 16:30 06/03/18 16:29 05/08/18 06:24 Polyethylene Glycol (Miralax) 17 gm BEDTIME ORAL 05/04/18 21:00 05/21/18 20:59 Sevelamer Carbonate (Renvela) 2,400 mg THREE TIMES A DAY ORAL 05/04/18 13:00 05/13/18 08:59 05/07/18 13:42 Zolpidem Tartrate (Ambien) 5 mg HSPRN PRN ORAL Insomnia 05/06/18 23:30 05/13/18 23:29 05/07/18 23:47 Johanne King NP May 08, 2018 07:31
[2018-05-08] MEDS: Heparin 5000 units/ml inj SUBQ SCH ×2 (09:00→20:32)
[2018-05-08] MEDS: Aspirin Baby 81mg ORAL SCH (09:30)
[2018-05-08] MEDS: Citalopram Hydrobromide 10mg Tab ORAL SCH (09:30)
--- NOTE | 2018-05-08 09:54 | NUR ---
CASE MANAGEMENT:REVIEW 05/08/18 SI: SEPSIS. ANEMIA. ESRD T 97.9 HR 66 RR 18 B/P 80/37 SATS 93% ON RA K 3.4 BUN 19 CR 6.1 AST 14 ALP 257 IS: PROCRIT SUBQ MWF ASA PO QD REMERON PO QHS PROTONIX PO BID HEPARIN SUBQ Q12H REGLAN PO BEFORE MEALS : TELEMETRY STATUS
--- NOTE | 2018-05-08 10:28 | Nephrology Progress Note ---
Assessment/Plan Problem List: (1) ESRD (end stage renal disease) on dialysis (2) Hypotension (3) Anemia of renal disease Assessment: worsening (4) Metabolic encephalopathy (5) Pneumonia Assessment ESRD HypoThyroidism- Periodic Hypotension- encephalopathic , metabolic- Plan endoscopy 05/06 banding of esophageal varices Transfused dialysis 05/07 next 05/10 consider transfusion as needed- has antibodies Reglan for vomiting recheck serum cortisol level- noted add asa and isordil for rising Troponin add prn imodium for loose bm per orders midodrine per consultants antibiotics for pneumonia Subjective ROS Limited/Unobtainable: No Constitutional: Reports: malaise, weakness Objective Objective Last 24 Hour Vital Signs Date Time Temp Pulse Resp B/P (MAP) Pulse Ox O2 Delivery O2 Flow Rate FiO2 05/08/18 08:00 97.9 66 18 80/37 (51) 93 05/08/18 08:00 67 05/08/18 04:00 75 05/08/18 04:00 98.8 68 20 76/44 (55) 96 05/08/18 00:00 75 05/08/18 00:00 98.7 73 20 90/49 (63) 96 05/07/18 21:00 Room Air 05/07/18 20:00 78 05/07/18 20:00 97.0 78 20 99/44 (62) 94 05/07/18 19:53 Room Air 05/07/18 16:00 97.6 74 20 145/54 (84) 94 05/07/18 16:00 72 05/07/18 12:00 69 05/07/18 12:00 97.7 76 21 98/50 (66) 91 Intake and Output 05/07/18 05/08/18 19:00 07:00 Intake Total 700 ml 50 ml Output Total 2500 ml Balance 700 ml -2450 ml Intake Oral 700 ml 50 ml Hemodialysis UF 2500 ml # Voids 3 # Bowel Movements 1 Laboratory Tests 05/08/18 05:00: White Blood Count 4.9, Red Blood Count 3.07L, Hemoglobin 8.9L, Hematocrit 27.8L , Mean Corpuscular Volume 91, Mean Corpuscular Hemoglobin 28.9, Mean Corpuscular Hemoglobin Concent 31.9L, Red Cell Distribution Width 15.6H, Platelet Count 176, Mean Platelet Volume 8.6, Neutrophils (%) (Auto) 59.6, Lymphocytes (%) (Auto) 21.0, Monocytes (%) (Auto) 10.0, Eosinophils (%) (Auto) 8.7H, Basophils (%) (Auto) 0.7, Sodium Level 141, Potassium Level 3.4L, Chloride Level 100, Carbon Dioxide Level 35H, Anion Gap 6, Blood Urea Nitrogen 19H, Creatinine 6.1H, Estimat Glomerular Filtration Rate 8.7, Glucose Level 91, Uric Acid 3.9, Calcium Level 9.2, Phosphorus Level 3.0, Total Bilirubin 0.5, Aspartate Amino Transf (AST/SGOT) 14L, Alanine Aminotransferase (ALT/SGPT) 12, Alkaline Phosphatase 257H, Total Protein 7.2, Albumin 2.7L, Globulin 4.5, Albumin/Globulin Ratio 0.6L Height (Feet): 5 Height (Inches): 6.00 Weight (Pounds): 213 General Appearance: no apparent distress Cardiovascular: normal rate Respiratory/Chest: decreased breath sounds Abdomen: soft Objective no change Fredrick Conner MD May 08, 2018 10:28
[2018-05-08] MEDS ORDERED: Albuterol/Ipratropium 3ml neb HHN PRN (10:30)
--- NOTE | 2018-05-08 12:58 | Internal Med Progress Note ---
Subjective Date of Service: May 08, 2018 Physician Name Harrell,Edward Attending Physician Ash Henley MD Current Medications Medications (Trade) Dose Ordered Sig/Marcos Route PRN Reason Start Time Stop Time Status Last Admin Dose Admin Acetaminophen (Tylenol) 650 mg Q6H PRN ORAL Mild Pain/Temp > 100.5 05/04/18 12:00 05/12/18 11:59 05/07/18 00:44 Albuterol/ Ipratropium (Albuterol/ Ipratropium) 3 ml Q4H PRN HHN sob 05/08/18 10:30 05/13/18 10:29 Aspirin (ASA) 81 mg DAILY ORAL 05/05/18 09:00 05/17/18 08:59 05/07/18 09:07 Chlorhexidine Gluconate (Nivia-Hex 2%) 1 applic DAILY@2000 TOPIC 05/04/18 20:00 05/13/18 19:59 05/07/18 21:22 Citalopram Hydrobromide (celeXA) 40 mg DAILY ORAL 05/05/18 09:00 06/03/18 08:59 05/07/18 10:22 Epoetin Alejandro (Procrit (for ESRD on dialysis)) 10,000 units WED-WED-WED SUBQ 05/06/18 21:00 06/05/18 20:59 05/06/18 21:20 Guaifenesin (Robitussin) 300 mg Q6H PRN ORAL For Cough 05/04/18 12:00 05/14/18 11:59 Heparin Sodium (Porcine) (Heparin 5000 units/ml) 5,000 units EVERY 12 HOURS SUBQ 05/04/18 12:30 05/12/18 12:29 Loperamide HCl (Imodium) 2 mg Q4H PRN ORAL Diarrhea 05/04/18 12:00 05/25/18 11:59 05/07/18 21:22 Metoclopramide HCl (Reglan) 10 mg Q8H PRN IVP Nausea & Vomiting 05/04/18 12:00 05/28/18 11:59 Midodrine (Pro-Amatine) 10 mg Q8HR ORAL 05/04/18 14:00 05/19/18 13:59 05/08/18 06:24 Mirtazapine (Remeron) 7.5 mg BEDTIME ORAL 05/04/18 21:00 05/25/18 20:59 05/07/18 21:21 Pantoprazole (Protonix) 40 mg BIAC ORAL 05/04/18 16:30 06/03/18 16:29 05/08/18 06:24 Polyethylene Glycol (Miralax) 17 gm BEDTIME ORAL 05/04/18 21:00 05/21/18 20:59 Sevelamer Carbonate (Renvela) 800 mg THREE TIMES A DAY ORAL 05/08/18 13:00 05/13/18 08:59 Zolpidem Tartrate (Ambien) 5 mg HSPRN PRN ORAL Insomnia 05/06/18 23:30 05/13/18 23:29 05/07/18 23:47 Allergies: Coded Allergies: CEFAZOLIN (Verified Allergy, Unknown, 10/02/10) CIPROFLOXACIN (Verified Allergy, Unknown, 10/02/10) GENTAMICIN (Verified Allergy, Unknown, 10/02/10) KETAMINE (Verified Allergy, Unknown, 03/29/18) LEVOFLOXACIN (Verified Allergy, Unknown, 10/02/10) PENICILLINS (Verified Allergy, Unknown, ITCH, 10/02/10) Uncoded Allergies: CONTRAST MEDIA (Adverse Reaction, Mild, MILD ITCHING AFTER CONTRAST MEDIA, 04/30/17) ROS Limited/Unobtainable: No Constitutional: Reports: no symptoms HEENT: Reports: no symptoms Cardiovascular: Reports: no symptoms Respiratory: Reports: no symptoms Gastrointestinal/Abdominal: Reports: no symptoms Genitourinary: Reports: no symptoms Neurologic/Psychiatric: Reports: no symptoms Subjective 53 YO F admitted with shortness of breath. Now pneumonia. Cover for Int Med- Dr Henley. S/P endoscopy 05/06/18. S/P transfusion 2 units PRBC on 05/05/18. Objective Last Vital Signs Date Time Temp Pulse Resp B/P (MAP) Pulse Ox O2 Delivery O2 Flow Rate FiO2 05/08/18 12:00 67 05/08/18 12:00 97.7 18 80/39 (53) 93 05/08/18 09:00 Room Air 05/08/18 08:50 21 05/06/18 11:20 3 Laboratory Tests Test 05/08/18 05:00 White Blood Count 4.9 K/UL (4.8-10.8) Red Blood Count 3.07 M/UL (4.20-5.40) L Hemoglobin 8.9 G/DL (12.0-16.0) L Hematocrit 27.8 % (37.0-47.0) L Mean Corpuscular Volume 91 FL (80-99) Mean Corpuscular Hemoglobin 28.9 PG (27.0-31.0) Mean Corpuscular Hemoglobin Concent 31.9 G/DL (32.0-36.0) L Red Cell Distribution Width 15.6 % (11.6-14.8) H Platelet Count 176 K/UL (150-450) Mean Platelet Volume 8.6 FL (6.5-10.1) Neutrophils (%) (Auto) 59.6 % (45.0-75.0) Lymphocytes (%) (Auto) 21.0 % (20.0-45.0) Monocytes (%) (Auto) 10.0 % (1.0-10.0) Eosinophils (%) (Auto) 8.7 % (0.0-3.0) H Basophils (%) (Auto) 0.7 % (0.0-2.0) Sodium Level 141 MMOL/L (136-145) Potassium Level 3.4 MMOL/L (3.5-5.1) L Chloride Level 100 MMOL/L (98-107) Carbon Dioxide Level 35 MMOL/L (21-32) H Anion Gap 6 mmol/L (5-15) Blood Urea Nitrogen 19 mg/dL (7-18) H Creatinine 6.1 MG/DL (0.55-1.30) H Estimat Glomerular Filtration Rate 8.7 mL/min (>60) Glucose Level 91 MG/DL (74-106) Uric Acid 3.9 MG/DL (2.6-7.2) Calcium Level 9.2 MG/DL (8.5-10.1) Phosphorus Level 3.0 MG/DL (2.5-4.9) Total Bilirubin 0.5 MG/DL (0.2-1.0) Aspartate Amino Transf (AST/SGOT) 14 U/L (15-37) L Alanine Aminotransferase (ALT/SGPT) 12 U/L (12-78) Alkaline Phosphatase 257 U/L (46-116) H Total Protein 7.2 G/DL (6.4-8.2) Albumin 2.7 G/DL (3.4-5.0) L Globulin 4.5 g/dL Albumin/Globulin Ratio 0.6 (1.0-2.7) L Microbiology Date/Time Source Procedure Growth Status 05/07/18 10:29 Stool Clostridium difficile Toxin Assay - Final Complete Intake and Output 05/07/18 05/08/18 19:00 07:00 Intake Total 700 ml 50 ml Output Total 2500 ml Balance 700 ml -2450 ml Intake Oral 700 ml 50 ml Hemodialysis UF 2500 ml # Voids 3 # Bowel Movements 1 Objective Objective GENERAL: Awake, responsive, alert HEAD AND NECK: Pupils equal and reactive to light. Extraocular movements intact. Neck was supple. No JVD. LUNGS: Fair air entry. Poor respiratory effort. No wheeze or rhonchi. Decreased air in the bases. HEART: S1 and S2. Distant heart sounds. No murmur. ABDOMEN: Soft, nondistended, and nontender. Morbidly obese. EXTREMITIES: No cyanosis, clubbing, or edema. Right femoral area PermCath as well as left upper extremity AV fistula, functional. NEUROLOGIC: Cranial nerves II through XII are grossly intact. The patient is moving all the extremities spontaneously. Gait was not assessed due to the patient's status. PSYCHIATRIC: Mood and affect are intact. Assessment/Plan Assessment/Plan Assessment/Plan Assessment/Plan 1. Sepsis, most likely secondary to left upper lobe and, to a lesser extent, medial right lower lobe most likely representing multifocal pneumonia. 2. Hypotension, possible septic shock. 3. Pancytopenia with severe thrombocytopenia resolving. 4. End-stage renal disease, on hemodialysis. 5. Altered mental status, most likely toxic metabolic encephalopathy as a result of infection as well as uremia. 6. Anemia of chronic kidney disease. 7. Morbid obesity. 8. Bradycardia. 9. Diarrhea 10. Abdominal pain. 11. Severe anemia PLAN: follow up laboratory and cultures. Dr. Fredrick Conner from Nephrology consult; Hemodialysis 05/10/18. Dr. Mcbride from ID consult. Discussed with the family member, brother at the bedside. Abx:Meropenem, doxycycline and vfend per ID Code status is Full Code. DVT prophylaxis: heparin subcutaneous. continue Dopamine Drip CT of chest noted. Cortisol level Pending. C. Diff neg. Send stool for repeat Continue dopamine See GI consult; KUB=no obstruction advance diet S/P Transfusion 2 unit PRBC 05/05/18 Edward Harrell MD May 08, 2018 12:58
--- NOTE | 2018-05-08 14:45 | Cardiac Electrophysiology PN ---
Assessment/Plan Assessment/Plan 1. Troponin leak due to renal failure. Levels low and flat. No chest pain. 2. S/P Septic shock. On midodrine 10 mg tid. S/P iv fluid and transfusion 3. Bradycardia. Resolved. 4. Anterior T-wave inversion. No chest pain. EF 60% 5. End-stage renal disease, on hemodialysis, per Dr. Conner. 6. Diarrhea C. Diff was negative 7. Severe anemia Hb 6.5 s/p transfusion DW RN Subjective Subjective On tele. No CP or SOB. RN at bedside. Had transient hypotension after sleeping pill that resolved. Objective Last 24 Hour Vital Signs Date Time Temp Pulse Resp B/P (MAP) Pulse Ox O2 Delivery O2 Flow Rate FiO2 05/08/18 14:42 95/52 (66) 05/08/18 12:00 67 05/08/18 12:00 97.7 71 18 80/39 (53) 93 05/08/18 09:00 Room Air 05/08/18 08:50 95 Room Air 21 05/08/18 08:50 Room Air 21 05/08/18 08:00 97.9 66 18 80/37 (51) 93 05/08/18 08:00 67 05/08/18 04:00 75 05/08/18 04:00 98.8 68 20 76/44 (55) 96 05/08/18 00:00 75 05/08/18 00:00 98.7 73 20 90/49 (63) 96 05/07/18 21:00 Room Air 05/07/18 20:00 78 05/07/18 20:00 97.0 78 20 99/44 (62) 94 05/07/18 19:53 Room Air 05/07/18 16:00 97.6 74 20 145/54 (84) 94 05/07/18 16:00 72 Intake and Output 05/07/18 05/08/18 19:00 07:00 Intake Total 700 ml 50 ml Output Total 2500 ml Balance 700 ml -2450 ml Intake Oral 700 ml 50 ml Hemodialysis UF 2500 ml # Voids 3 # Bowel Movements 1 Laboratory Tests Test 05/08/18 05:00 White Blood Count 4.9 K/UL (4.8-10.8) Red Blood Count 3.07 M/UL (4.20-5.40) L Hemoglobin 8.9 G/DL (12.0-16.0) L Hematocrit 27.8 % (37.0-47.0) L Mean Corpuscular Volume 91 FL (80-99) Mean Corpuscular Hemoglobin 28.9 PG (27.0-31.0) Mean Corpuscular Hemoglobin Concent 31.9 G/DL (32.0-36.0) L Red Cell Distribution Width 15.6 % (11.6-14.8) H Platelet Count 176 K/UL (150-450) Mean Platelet Volume 8.6 FL (6.5-10.1) Neutrophils (%) (Auto) 59.6 % (45.0-75.0) Lymphocytes (%) (Auto) 21.0 % (20.0-45.0) Monocytes (%) (Auto) 10.0 % (1.0-10.0) Eosinophils (%) (Auto) 8.7 % (0.0-3.0) H Basophils (%) (Auto) 0.7 % (0.0-2.0) Sodium Level 141 MMOL/L (136-145) Potassium Level 3.4 MMOL/L (3.5-5.1) L Chloride Level 100 MMOL/L (98-107) Carbon Dioxide Level 35 MMOL/L (21-32) H Anion Gap 6 mmol/L (5-15) Blood Urea Nitrogen 19 mg/dL (7-18) H Creatinine 6.1 MG/DL (0.55-1.30) H Estimat Glomerular Filtration Rate 8.7 mL/min (>60) Glucose Level 91 MG/DL (74-106) Uric Acid 3.9 MG/DL (2.6-7.2) Calcium Level 9.2 MG/DL (8.5-10.1) Phosphorus Level 3.0 MG/DL (2.5-4.9) Total Bilirubin 0.5 MG/DL (0.2-1.0) Aspartate Amino Transf (AST/SGOT) 14 U/L (15-37) L Alanine Aminotransferase (ALT/SGPT) 12 U/L (12-78) Alkaline Phosphatase 257 U/L (46-116) H Total Protein 7.2 G/DL (6.4-8.2) Albumin 2.7 G/DL (3.4-5.0) L Globulin 4.5 g/dL Albumin/Globulin Ratio 0.6 (1.0-2.7) L Microbiology Date/Time Source Procedure Growth Status 05/07/18 10:29 Stool Clostridium difficile Toxin Assay - Final Complete Objective HEAD AND NECK: No JVD. LUNGS: Decreased breath sounds. CARDIOVASCULAR: Regular S1 and S2 no GRM ABDOMEN: Soft. EXTREMITIES: No edema Tc Liang MD May 08, 2018 14:45
--- NOTE | 2018-05-08 19:19 | NUR ---
NURSE NOTES: Received report from WILLI Adler. Patient is in bed asleep, with no signs of acute distress. Respiration even and non labored on room air. Vitals stable. Bed in lowest position. Call light within reach. Will continue plan of care.
--- NOTE | 2018-05-08 19:20 | NUR ---
HAND-OFF: Report given to WILLI Acevedo.
--- NOTE | 2018-05-08 19:48 | General Progress Note ---
Assessment/Plan Assessment/Plan Assessment/Plan Problems: (1) Epigastric abdominal pain ICD Codes: R10.13 - Epigastric pain SNOMED: 60660668 (2) Anxiety ICD Codes: F41.9 - Anxiety disorder, unspecified SNOMED: 26680886 (3) Constipation ICD Codes: K59.00 - Constipation, unspecified SNOMED: 00562217 (4) Anemia of renal disease (5) s/p variceal banding Recommendations Hold all blood thinners advance diet protonix daily zofran prn fu labs bowel regimen pain mgmt PT evaluation Subjective Allergies: Coded Allergies: CEFAZOLIN (Verified Allergy, Unknown, 10/02/10) CIPROFLOXACIN (Verified Allergy, Unknown, 10/02/10) GENTAMICIN (Verified Allergy, Unknown, 10/02/10) KETAMINE (Verified Allergy, Unknown, 03/29/18) LEVOFLOXACIN (Verified Allergy, Unknown, 10/02/10) PENICILLINS (Verified Allergy, Unknown, ITCH, 10/02/10) Uncoded Allergies: CONTRAST MEDIA (Adverse Reaction, Mild, MILD ITCHING AFTER CONTRAST MEDIA, 04/30/17) Subjective Feels OK no abdominal complaints Objective Last 24 Hour Vital Signs Date Time Temp Pulse Resp B/P (MAP) Pulse Ox O2 Delivery O2 Flow Rate FiO2 05/08/18 19:33 95 Room Air 21 05/08/18 19:33 Room Air 21 05/08/18 16:00 97.9 69 18 95/51 (66) 93 05/08/18 16:00 77 05/08/18 14:42 95/52 (66) 05/08/18 12:00 67 05/08/18 12:00 97.7 71 18 80/39 (53) 93 05/08/18 09:00 Room Air 05/08/18 08:50 95 Room Air 21 05/08/18 08:50 Room Air 21 05/08/18 08:00 97.9 66 18 80/37 (51) 93 05/08/18 08:00 67 05/08/18 04:00 75 05/08/18 04:00 98.8 68 20 76/44 (55) 96 05/08/18 00:00 75 05/08/18 00:00 98.7 73 20 90/49 (63) 96 05/07/18 21:00 Room Air 05/07/18 20:00 78 05/07/18 20:00 97.0 78 20 99/44 (62) 94 05/07/18 19:53 Room Air Intake and Output 05/07/18 05/08/18 18:59 06:59 Intake Total 700 ml 50 ml Output Total 2500 ml Balance 700 ml -2450 ml Intake Oral 700 ml 50 ml Hemodialysis UF 2500 ml # Voids 3 # Bowel Movements 1 Laboratory Tests 05/08/18 05:00: White Blood Count 4.9, Red Blood Count 3.07L, Hemoglobin 8.9L, Hematocrit 27.8L , Mean Corpuscular Volume 91, Mean Corpuscular Hemoglobin 28.9, Mean Corpuscular Hemoglobin Concent 31.9L, Red Cell Distribution Width 15.6H, Platelet Count 176, Mean Platelet Volume 8.6, Neutrophils (%) (Auto) 59.6, Lymphocytes (%) (Auto) 21.0, Monocytes (%) (Auto) 10.0, Eosinophils (%) (Auto) 8.7H, Basophils (%) (Auto) 0.7, Sodium Level 141, Potassium Level 3.4L, Chloride Level 100, Carbon Dioxide Level 35H, Anion Gap 6, Blood Urea Nitrogen 19H, Creatinine 6.1H, Estimat Glomerular Filtration Rate 8.7, Glucose Level 91, Uric Acid 3.9, Calcium Level 9.2, Phosphorus Level 3.0, Total Bilirubin 0.5, Aspartate Amino Transf (AST/SGOT) 14L, Alanine Aminotransferase (ALT/SGPT) 12, Alkaline Phosphatase 257H, Total Protein 7.2, Albumin 2.7L, Globulin 4.5, Albumin/Globulin Ratio 0.6L Height (Feet): 5 Height (Inches): 6.00 Weight (Pounds): 213 Objective WDWN NCAT supple CTA RRR abd soft, mild diffuse abd TTP (+) edema non focal Kevin Kramer MD May 08, 2018 19:48
[2018-05-08] MEDS: Dyna-Hex 2% Top Sol 2oz TOPIC SCH (20:30)
[2018-05-08] MEDS: Miralax 17gm pkt ORAL SCH (20:31)
[2018-05-09] VITALS: BP 74/42
[2018-05-09 04:00] VITALS: BP 146/71
[2018-05-09] MEDS: Midodrine 10mg tab ORAL SCH ×3 (06:29→21:45)
--- NOTE | 2018-05-09 07:09 | NUR ---
HAND-OFF: Report given to WILLI Doss. Addendum: 05/09/18 at 8608 by RUPESH QUEZADA RN Report given to WILLI Adler
--- NOTE | 2018-05-09 07:10 | NUR ---
NURSE NOTES: Report received from WILLI Acevedo. Pt is resting in bed, sleeping. Pt breathing is even and unlabored in room air, no signs and symptoms of acute distress at this time. Bed placed in lowest position with brake engaged and two side rails up. Call light and side table placed within reach. Will continue to monitor and follow plan of care.
[2018-05-09 07:13] LABS: BASOPHILS % (AUTO) 0.4 % (0.0-2.0); HEMATOCRIT 29.8 % (37.0-47.0); HEMOGLOBIN 9.6 G/DL (12.0-16.0); LYMPHOCYTES % (AUTO) 19.5 % (20.0-45.0); MEAN CORPUSCULAR VOLUME 91 FL (80-99); MONOCYTES % (AUTO) 8.2 % (1.0-10.0); NEUTROPHILS % (AUTO) 66.9 % (45.0-75.0); PLATELET COUNT 185 K/UL (150-450); RED BLOOD COUNT 3.27 M/UL (4.20-5.40); RED CELL DISTRIBUTION WIDTH 16.8 % (11.6-14.8); WHITE BLOOD COUNT 6.1 K/UL (4.8-10.8)
[2018-05-09 07:19] LABS: ANION GAP 10 mmol/L (5-15); BLOOD UREA NITROGEN 27 mg/dL (7-18); CALCIUM 9.8 MG/DL (8.5-10.1); CARBON DIOXIDE 32 MMOL/L (21-32); CHLORIDE 100 MMOL/L (98-107); CREATININE 7.7 MG/DL (0.55-1.30); POTASSIUM 3.5 MMOL/L (3.5-5.1); SODIUM 142 MMOL/L (136-145)
[2018-05-09 08:00] VITALS: BP 74/35
[2018-05-09] MEDS: Heparin 5000 units/ml inj SUBQ SCH ×2 (09:00→21:00)
[2018-05-09] MEDS: Aspirin Baby 81mg ORAL SCH (09:00)
[2018-05-09] MEDS: Citalopram Hydrobromide 10mg Tab ORAL SCH (10:00)
--- NOTE | 2018-05-09 10:26 | GI Progress Note ---
Assessment/Plan Problems: (1) Epigastric abdominal pain ICD Codes: R10.13 - Epigastric pain SNOMED: 25802383 (2) Anxiety ICD Codes: F41.9 - Anxiety disorder, unspecified SNOMED: 55001413 (3) Constipation ICD Codes: K59.00 - Constipation, unspecified SNOMED: 75547428 (4) Anemia of renal disease ICD Codes: D63.1 - Anemia in chronic kidney disease SNOMED: 384601606, 294323803 Status: stable Status Narrative Discussed with Dr. Diaz Assessment/Plan SUMMARY OF FINDINGS: 1. Status post upper endoscopy with banding of 7 bands of esophageal varices. 2. Hiatal hernia. 3. Portal hypertensive gastropathy. RECOMMENDATIONS: Needs repeat banding in one month and outpatient follow up to evaluated for possible PBC. As needed transfusions Advance to soft diet protonix daily zofran prn fu labs bowel regimen pain mgmt PT evaluation The patient was seen and examined at bedside and all new and available data was reviewed in the patients chart. I agree with the above findings, impression and plan. (Patient seen earlier today. Signature stamp does not reflect patient encounter time.). - Ryley Diaz MD Subjective Subjective denies abdominal pain nausea has resolved constipated Objective Last 24 Hour Vital Signs Date Time Temp Pulse Resp B/P (MAP) Pulse Ox O2 Delivery O2 Flow Rate FiO2 05/09/18 09:00 Room Air 05/09/18 08:21 97 Nasal Cannula 2.0 28 05/09/18 08:21 65 14 2.0 28 05/09/18 08:21 Nasal Cannula 2.0 28 05/09/18 08:00 98.4 64 20 74/35 (48) 96 05/09/18 04:00 97.0 76 20 146/71 (96) 96 05/09/18 04:00 66 05/09/18 00:00 66 05/09/18 00:00 97.7 69 20 74/42 (53) 96 05/08/18 23:23 84 18 96 Nasal Cannula 2.0 28 05/08/18 23:22 28 05/08/18 21:42 81 18 94 Nasal Cannula 2.0 28 05/08/18 21:00 Room Air 05/08/18 20:00 92 05/08/18 20:00 98.3 81 20 94/48 (63) 96 05/08/18 19:33 95 Room Air 21 05/08/18 19:33 Room Air 21 05/08/18 16:00 97.9 69 18 95/51 (66) 93 05/08/18 16:00 77 05/08/18 14:42 95/52 (66) 05/08/18 12:00 67 05/08/18 12:00 97.7 71 18 80/39 (53) 93 Intake and Output 05/08/18 05/09/18 19:00 07:00 Intake Total 120 ml 120 ml Balance 120 ml 120 ml Intake Oral 120 ml 120 ml # Bowel Movements 1 Laboratory Tests Test 05/09/18 05:30 White Blood Count 6.1 K/UL (4.8-10.8) Red Blood Count 3.27 M/UL (4.20-5.40) L Hemoglobin 9.6 G/DL (12.0-16.0) L Hematocrit 29.8 % (37.0-47.0) L Mean Corpuscular Volume 91 FL (80-99) Mean Corpuscular Hemoglobin 29.3 PG (27.0-31.0) Mean Corpuscular Hemoglobin Concent 32.2 G/DL (32.0-36.0) Red Cell Distribution Width 16.8 % (11.6-14.8) H Platelet Count 185 K/UL (150-450) Mean Platelet Volume 9.5 FL (6.5-10.1) Neutrophils (%) (Auto) 66.9 % (45.0-75.0) Lymphocytes (%) (Auto) 19.5 % (20.0-45.0) L Monocytes (%) (Auto) 8.2 % (1.0-10.0) Eosinophils (%) (Auto) 5.0 % (0.0-3.0) H Basophils (%) (Auto) 0.4 % (0.0-2.0) Sodium Level 142 MMOL/L (136-145) Potassium Level 3.5 MMOL/L (3.5-5.1) Chloride Level 100 MMOL/L (98-107) Carbon Dioxide Level 32 MMOL/L (21-32) Anion Gap 10 mmol/L (5-15) Blood Urea Nitrogen 27 mg/dL (7-18) H Creatinine 7.7 MG/DL (0.55-1.30) H Estimat Glomerular Filtration Rate 6.7 mL/min (>60) Glucose Level 109 MG/DL (74-106) H Calcium Level 9.8 MG/DL (8.5-10.1) Height (Feet): 5 Height (Inches): 6.00 Weight (Pounds): 214 General Appearance: WD/WN, no apparent distress, alert Cardiovascular: normal rate Respiratory/Chest: normal breath sounds, no respiratory distress Abdominal Exam: normal bowel sounds, non tender, soft Extremities: normal range of motion, non-tender Wm Faustin NP May 09, 2018 10:26
--- NOTE | 2018-05-09 11:48 | Nephrology Progress Note ---
Assessment/Plan Problem List: (1) ESRD (end stage renal disease) on dialysis (2) Hypotension (3) Anemia of renal disease Assessment: worsening (4) Metabolic encephalopathy (5) Pneumonia Assessment ESRD HypoThyroidism- Periodic Hypotension- encephalopathic , metabolic- Plan endoscopy 05/06 banding of esophageal varices Transfused dialysis 05/07 next 05/10 consider transfusion as needed- has antibodies Reglan for vomiting recheck serum cortisol level- noted add asa and isordil for rising Troponin add prn imodium for loose bm per orders midodrine per consultants antibiotics for pneumonia Subjective ROS Limited/Unobtainable: No Objective Objective Last 24 Hour Vital Signs Date Time Temp Pulse Resp B/P (MAP) Pulse Ox O2 Delivery O2 Flow Rate FiO2 05/09/18 09:00 Room Air 05/09/18 08:21 97 Nasal Cannula 2.0 28 05/09/18 08:21 65 14 2.0 28 05/09/18 08:21 Nasal Cannula 2.0 28 05/09/18 08:00 98.4 64 20 74/35 (48) 96 05/09/18 04:00 97.0 76 20 146/71 (96) 96 05/09/18 04:00 66 05/09/18 00:00 66 05/09/18 00:00 97.7 69 20 74/42 (53) 96 05/08/18 23:23 84 18 96 Nasal Cannula 2.0 28 05/08/18 23:22 28 05/08/18 21:42 81 18 94 Nasal Cannula 2.0 28 05/08/18 21:00 Room Air 05/08/18 20:00 92 05/08/18 20:00 98.3 81 20 94/48 (63) 96 05/08/18 19:33 95 Room Air 21 05/08/18 19:33 Room Air 21 05/08/18 16:00 97.9 69 18 95/51 (66) 93 05/08/18 16:00 77 05/08/18 14:42 95/52 (66) 05/08/18 12:00 67 05/08/18 12:00 97.7 71 18 80/39 (53) 93 Intake and Output 05/08/18 05/09/18 19:00 07:00 Intake Total 120 ml 120 ml Balance 120 ml 120 ml Intake Oral 120 ml 120 ml # Bowel Movements 1 Laboratory Tests 05/09/18 05:30: White Blood Count 6.1, Red Blood Count 3.27L, Hemoglobin 9.6L, Hematocrit 29.8L , Mean Corpuscular Volume 91, Mean Corpuscular Hemoglobin 29.3, Mean Corpuscular Hemoglobin Concent 32.2, Red Cell Distribution Width 16.8H, Platelet Count 185, Mean Platelet Volume 9.5, Neutrophils (%) (Auto) 66.9, Lymphocytes (%) (Auto) 19.5L, Monocytes (%) (Auto) 8.2, Eosinophils (%) (Auto) 5.0H, Basophils (%) (Auto) 0.4, Sodium Level 142, Potassium Level 3.5, Chloride Level 100, Carbon Dioxide Level 32, Anion Gap 10, Blood Urea Nitrogen 27H, Creatinine 7.7H, Estimat Glomerular Filtration Rate 6.7, Glucose Level 109H, Calcium Level 9.8 Height (Feet): 5 Height (Inches): 6.00 Weight (Pounds): 214 General Appearance: no apparent distress Objective no change Fredrick Conner MD May 09, 2018 11:48
[2018-05-09 12:00] VITALS: BP 94/37
--- NOTE | 2018-05-09 13:03 | Infectious Diseases Prog Note ---
Assessment/Plan Assessment/Plan ASSESSMENT: 1. sepsis, shock, pneumonia, CT chest noted, pressors, bradycardia, sputum culture with mold, ? aspergillus pna, f/u CT noted, some sob today, no fevers or leukocytosis, no secretions - s/p 14 day course meropenem and doxycycline - s/p 10 days voriconazole day # 10, held secondary to elevated TB which has now normalized - d/w microbiology and ID of mold pending (send out), await results - off pressors, clinically stable, no fevers, respiratory status stable - monitor chest x-ray and labs, T-spot negative, cocci pending, histo negative - check, cocci, cryptococcus, mold ID, consider thoracentesis and bronchoscopy if clinically/chest x-ray worsens - d/w Dr. Schimdt and he thinks f/u CT improved - hesitate to restart antibiotic/anti-fungal tx since has had full course of anti-bacterial tx and mold can be colonizer 2. End-stage renal disease, hemodialysis, has a right femoral line hemodialysis line and also left arm graft. 3. History of fistula in the past. 4. History of PermCath in the past 5. Anemia of chronic disease. 6. Hypertension - Blood pressure treatment per primary. 7. No history of diabetes mentioned. 8. Chronic kidney disease. 9. Obesity. 10. History of cholecystectomy. 11. History of parathyroidectomy. 12. History of carpal tunnel syndrome. 13. History of fractures, ORIF. 14. Past medical history noted. 15. Multiple drug allergies including cefazolin, Cipro, contrast media, gentamicin, ketamine, Levaquin and penicillin, she seems to tolerate carbapenems. 16. Social history is negative . 17. Family history is noncontributory. 18. MAR was noted. 19. Case discussed with RN. 20. Continue treatment per primary consultants. 21. Notes were noted and orders were entered. Subjective Constitutional: Denies: fever HEENT: Denies: congestion Respiratory: Denies: shortness of breath Cardiovascular: Denies: chest pain Gastrointestinal/Abdominal: Denies: nausea, vomiting, diarrhea Genitourinary: Reports: other - no mckinney Neurologic: Denies: headache Psychiatric: Denies: depression Skin: Denies: rash Hematologic: Denies: bleeding Musculoskeletal: Denies: pain Allergies: Coded Allergies: CEFAZOLIN (Verified Allergy, Unknown, 10/02/10) CIPROFLOXACIN (Verified Allergy, Unknown, 10/02/10) GENTAMICIN (Verified Allergy, Unknown, 10/02/10) KETAMINE (Verified Allergy, Unknown, 03/29/18) LEVOFLOXACIN (Verified Allergy, Unknown, 10/02/10) PENICILLINS (Verified Allergy, Unknown, ITCH, 10/02/10) Uncoded Allergies: CONTRAST MEDIA (Adverse Reaction, Mild, MILD ITCHING AFTER CONTRAST MEDIA, 04/30/17) Objective Vital Signs Last 24 Hour Vital Signs Date Time Temp Pulse Resp B/P (MAP) Pulse Ox O2 Delivery O2 Flow Rate FiO2 05/09/18 09:00 Room Air 05/09/18 08:21 97 Nasal Cannula 2.0 28 05/09/18 08:21 65 14 2.0 28 05/09/18 08:21 Nasal Cannula 2.0 28 05/09/18 08:00 98.4 64 20 74/35 (48) 96 05/09/18 04:00 97.0 76 20 146/71 (96) 96 05/09/18 04:00 66 05/09/18 00:00 66 05/09/18 00:00 97.7 69 20 74/42 (53) 96 05/08/18 23:23 84 18 96 Nasal Cannula 2.0 28 05/08/18 23:22 28 05/08/18 21:42 81 18 94 Nasal Cannula 2.0 28 05/08/18 21:00 Room Air 05/08/18 20:00 92 05/08/18 20:00 98.3 81 20 94/48 (63) 96 05/08/18 19:33 95 Room Air 21 05/08/18 19:33 Room Air 21 05/08/18 16:00 97.9 69 18 95/51 (66) 93 05/08/18 16:00 77 05/08/18 14:42 95/52 (66) Height (Feet): 5 Height (Inches): 6.00 Weight (Pounds): 214 General Appearance: no acute distress HEENT: normocephalic, atraumatic, anicteric, mucous membranes moist Respiratory/Chest: lungs clear, normal breath sounds, no respiratory distress, no accessory muscle use Cardiovascular: normal rate, regular rhythm, no gallop/murmur, no JVD Abdomen: normal bowel sounds, soft, non tender, no organomegaly, non distended Genitourinary: other - no mckinney, no cva pain Extremities: no cyanosis Skin: no rash 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 Follow-up after appropriate treatment recommended to ensure resolution. * Patchy opacities in the right upper lobe are also likely infectious in etiology. These obscure the previously described lung nodule. Attention to this area on follow-up recommended. * Prominent hilar and mediastinal lymph nodes, possibly reactive in etiology. * Small bilateral pleural effusions. * Large hiatal hernia * Dialysis catheter tip in the right atrium. Evidence of central venous occlusion with multiple collateral veins noted in the mediastinum. * Nonspecific calcifications in the bilateral breasts are correlation with most recent mammogram recommended. If none performed recently, then recommend follow- up screening mammogram. * Findings suggestive of renal osteodystrophy Chest x-ray - 04/14 - Findings: Heart size and mediastinal contours stable. Femoral approach dialysis catheter is again noted. Multiple surgical clips noted in the bilateral axilla. Portions of a stents again visualized in the right axilla. Multiple surgical clips noted in the right arm. Plaster Lather opacities in the left midlung peripherally. No evidence of pneumothorax. There is patchy opacity at the right base. Osseous structures stable. Calcifications in the right breast noted. Impression: Left-sided airspace opacities most concerning for pneumonia. There is slight interval increased density compared to prior exam which may be technical. 04/16/18 - chest x-ray - IMPRESSION: 1. Bilateral airspace opacities, most confluent in the left midlung field. Could be from consolidation/pneumonia. There is a broad differential. Follow to ensure resolution and exclude other mimics. 2. Suspect bilateral pleural effusions. 3. Vascular congestion. 04/20/18: Comparison: 04/16/2018 A single view chest radiograph was obtained. Findings: Interstitial edema again suspected mild in degree, slightly improved from the prior study. Heart size is stable. Large bore catheter projected over the right atrium entering from the IVC. Pleural-based density lateral aspect of the left lung again noted. Extensive surgical clips in the thoracic inlet and left axillary region noted. IMPRESSION: Some improvement in the initial edema. Other findings stable Chest x-ray - 04/23/18 - COMPARISON: Chest x-ray dated 04/19/18 FINDINGS: Single frontal view demonstrates a normal cardiomediastinal silhouette. Surgical clips in the neck base. Status post left axillary dissection. Central venous catheter terminating in the right atrium, may be extending from a femoral approach, grossly unchanged. Stable patchy opacity in the left mid lung zone. Increasing patchy opacity in bilateral lower lung zones, right greater the left. The visualized osseous structures are within normal limits. IMPRESSION: 1. Stable patchy opacity in the left mid lung zone. Increasing patchy opacity in bilateral lower lung zones, right greater the left. 2. Stable lines and postoperative findings as outlined above. Chest x-ray - 04/26/18 - Interstitial edema has improved significantly since over the last few days. There is a mass versus infiltrate in the left midlung that persists. There is extensive surgical clips both axilla. Vascular stent right upper arm noted. Heart size is normal. IMPRESSION: Interval improvement in CHF. Mass versus infiltrate in the left midlung Chest x-ray - 04/27/18 - Comparison: 04/26/2018 Findings: Again demonstrated is lateral pleural thickening and a peripheral polygonal dense parenchymal opacity, the latter appearing slightly larger than on the previous study. There is some hazy opacity in the right upper lung which is new since the prior study. Mild generalized interstitial prominence is again demonstrated. Right arm stent, bilateral axillary surgical clips are again noted. Femoral approach dialysis catheter is again noted, tip in the high right atrium. Impression: Increased size of left lateral pulmonary parenchymal opacity. This reflects dense consolidation demonstrated on prior radiographs and CT scan, perhaps slightly worse than on the previous study. Persistent lateral pleural thickening versus fluid. Possible hazy infiltrate in the right upper lobe Other stable findings as described Chest x-ray - 05/01/18 - IMPRESSION: 1. Persistent patchy opacities at the periphery of the left midlung and in the right lung base. 2. No significant change in diffuse the increased interstitial markings, likely representing interstitial edema versus interstitial pneumonitis. 05/02/18 - CT chest; IMPRESSION: Moderate right pleural effusion and small left pleural effusion likely loculated. Suspected infiltrate left perihilar region. Basal atelectasis. Extensive vasculopathy with the calcification of central veins within the upper chest and presence of collateral vessels suggestive of cysts significant Central venous occlusive disease. Permacath noted via inferior approach. Anasarca Trace pericardial effusion Large hiatal hernia. Atrophic kidneys consistent with end-stage renal disease. Abnormal bones. Renal osteodystrophy suspected. Chest x-ray - 05/04/18- Comparison: 05/02/2018 A single view chest radiograph was obtained. Findings: Patchy infiltrates noted bilaterally unchanged from the last exam. Heart is enlarged and stable. IMPRESSION: No significant change appreciated. Please refer to the CT chest 05/02/2018 Microbiology Date/Time Source Procedure Growth Status 05/07/18 10:29 Sputum Induced Gram Stain - Final Complete 05/07/18 10:29 Sputum Induced Sputum Culture - Final NORMAL UPPER RESPIRATORY ESTEPHANIE PRESENT Complete 05/07/18 10:29 Stool Clostridium difficile Toxin Assay - Final Complete Laboratory Tests Test 05/09/18 05:30 White Blood Count 6.1 K/UL (4.8-10.8) Red Blood Count 3.27 M/UL (4.20-5.40) L Hemoglobin 9.6 G/DL (12.0-16.0) L Hematocrit 29.8 % (37.0-47.0) L Mean Corpuscular Volume 91 FL (80-99) Mean Corpuscular Hemoglobin 29.3 PG (27.0-31.0) Mean Corpuscular Hemoglobin Concent 32.2 G/DL (32.0-36.0) Red Cell Distribution Width 16.8 % (11.6-14.8) H Platelet Count 185 K/UL (150-450) Mean Platelet Volume 9.5 FL (6.5-10.1) Neutrophils (%) (Auto) 66.9 % (45.0-75.0) Lymphocytes (%) (Auto) 19.5 % (20.0-45.0) L Monocytes (%) (Auto) 8.2 % (1.0-10.0) Eosinophils (%) (Auto) 5.0 % (0.0-3.0) H Basophils (%) (Auto) 0.4 % (0.0-2.0) Sodium Level 142 MMOL/L (136-145) Potassium Level 3.5 MMOL/L (3.5-5.1) Chloride Level 100 MMOL/L (98-107) Carbon Dioxide Level 32 MMOL/L (21-32) Anion Gap 10 mmol/L (5-15) Blood Urea Nitrogen 27 mg/dL (7-18) H Creatinine 7.7 MG/DL (0.55-1.30) H Estimat Glomerular Filtration Rate 6.7 mL/min (>60) Glucose Level 109 MG/DL (74-106) H Calcium Level 9.8 MG/DL (8.5-10.1) Current Medications Medications (Trade) Dose Ordered Sig/Marcos Route PRN Reason Start Time Stop Time Status Last Admin Dose Admin Acetaminophen (Tylenol) 650 mg Q6H PRN ORAL Mild Pain/Temp > 100.5 05/04/18 12:00 05/12/18 11:59 05/08/18 17:08 Albuterol/ Ipratropium (Albuterol/ Ipratropium) 3 ml Q4H PRN HHN sob 05/08/18 10:30 05/13/18 10:29 05/08/18 21:41 Aspirin (ASA) 81 mg DAILY ORAL 05/05/18 09:00 05/17/18 08:59 05/07/18 09:07 Chlorhexidine Gluconate (Nivia-Hex 2%) 1 applic DAILY@2000 TOPIC 05/04/18 20:00 05/13/18 19:59 05/08/18 20:30 Citalopram Hydrobromide (celeXA) 40 mg DAILY ORAL 05/05/18 09:00 06/03/18 08:59 05/09/18 10:00 Epoetin Alejandro (Procrit (for ESRD on dialysis)) 10,000 units WED-WED-WED SUBQ 05/06/18 21:00 06/05/18 20:59 05/06/18 21:20 Guaifenesin (Robitussin) 300 mg Q6H PRN ORAL For Cough 05/04/18 12:00 05/14/18 11:59 Heparin Sodium (Porcine) (Heparin 5000 units/ml) 5,000 units EVERY 12 HOURS SUBQ 05/04/18 12:30 05/12/18 12:29 Midodrine (Pro-Amatine) 10 mg Q8HR ORAL 05/04/18 14:00 05/19/18 13:59 05/09/18 06:29 Mirtazapine (Remeron) 7.5 mg BEDTIME ORAL 05/04/18 21:00 05/25/18 20:59 05/08/18 20:30 Pantoprazole (Protonix) 40 mg BIAC ORAL 05/04/18 16:30 06/03/18 16:29 05/09/18 06:29 Polyethylene Glycol (Miralax) 17 gm BEDTIME ORAL 05/04/18 21:00 05/21/18 20:59 Sevelamer Carbonate (Renvela) 800 mg THREE TIMES A DAY ORAL 05/08/18 13:00 05/13/18 08:59 05/09/18 10:00 Zolpidem Tartrate (Ambien) 5 mg HSPRN PRN ORAL Insomnia 05/06/18 23:30 05/13/18 23:29 05/07/18 23:47 Edgardo Mcbride MD May 09, 2018 13:03
[2018-05-09] MEDS ORDERED: PRO-AMATINE10 MG ORAL (13:07)
[2018-05-09] MEDS ORDERED: MIRTAZAPINE15 M3 ORAL (13:07)
[2018-05-09] MEDS ORDERED: CELEXA20 MG ORAL (13:07)
--- NOTE | 2018-05-09 14:13 | Cardiac Electrophysiology PN ---
Assessment/Plan Assessment/Plan 1. Troponin leak due to renal failure. Levels low and flat. No chest pain. 2. S/P Septic shock. On midodrine 10 mg tid. S/P iv fluid and transfusion 3. Bradycardia. Resolved. 4. Anterior T-wave inversion. No chest pain. EF 60% 5. End-stage renal disease, on hemodialysis 6. Diarrhea C. Diff was negative 7. Severe anemia Hb 6.5 s/p transfusion> 9.6 DW RN Subjective Subjective No CP or SOB. . Had transient hypotension in 70s again this AM but asymptomatic. Objective Last 24 Hour Vital Signs Date Time Temp Pulse Resp B/P (MAP) Pulse Ox O2 Delivery O2 Flow Rate FiO2 05/09/18 09:00 Room Air 05/09/18 08:21 97 Nasal Cannula 2.0 28 05/09/18 08:21 65 14 2.0 28 05/09/18 08:21 Nasal Cannula 2.0 28 05/09/18 08:00 98.4 64 20 74/35 (48) 96 05/09/18 04:00 97.0 76 20 146/71 (96) 96 05/09/18 04:00 66 05/09/18 00:00 66 05/09/18 00:00 97.7 69 20 74/42 (53) 96 05/08/18 23:23 84 18 96 Nasal Cannula 2.0 28 05/08/18 23:22 28 05/08/18 21:42 81 18 94 Nasal Cannula 2.0 28 05/08/18 21:00 Room Air 05/08/18 20:00 92 05/08/18 20:00 98.3 81 20 94/48 (63) 96 05/08/18 19:33 95 Room Air 21 05/08/18 19:33 Room Air 21 05/08/18 16:00 97.9 69 18 95/51 (66) 93 05/08/18 16:00 77 05/08/18 14:42 95/52 (66) Intake and Output 05/08/18 05/09/18 19:00 07:00 Intake Total 120 ml 120 ml Balance 120 ml 120 ml Intake Oral 120 ml 120 ml # Bowel Movements 1 Laboratory Tests Test 05/09/18 05:30 White Blood Count 6.1 K/UL (4.8-10.8) Red Blood Count 3.27 M/UL (4.20-5.40) L Hemoglobin 9.6 G/DL (12.0-16.0) L Hematocrit 29.8 % (37.0-47.0) L Mean Corpuscular Volume 91 FL (80-99) Mean Corpuscular Hemoglobin 29.3 PG (27.0-31.0) Mean Corpuscular Hemoglobin Concent 32.2 G/DL (32.0-36.0) Red Cell Distribution Width 16.8 % (11.6-14.8) H Platelet Count 185 K/UL (150-450) Mean Platelet Volume 9.5 FL (6.5-10.1) Neutrophils (%) (Auto) 66.9 % (45.0-75.0) Lymphocytes (%) (Auto) 19.5 % (20.0-45.0) L Monocytes (%) (Auto) 8.2 % (1.0-10.0) Eosinophils (%) (Auto) 5.0 % (0.0-3.0) H Basophils (%) (Auto) 0.4 % (0.0-2.0) Sodium Level 142 MMOL/L (136-145) Potassium Level 3.5 MMOL/L (3.5-5.1) Chloride Level 100 MMOL/L (98-107) Carbon Dioxide Level 32 MMOL/L (21-32) Anion Gap 10 mmol/L (5-15) Blood Urea Nitrogen 27 mg/dL (7-18) H Creatinine 7.7 MG/DL (0.55-1.30) H Estimat Glomerular Filtration Rate 6.7 mL/min (>60) Glucose Level 109 MG/DL (74-106) H Calcium Level 9.8 MG/DL (8.5-10.1) Microbiology Date/Time Source Procedure Growth Status 05/07/18 10:29 Sputum Induced Gram Stain - Final Complete 05/07/18 10:29 Sputum Induced Sputum Culture - Final NORMAL UPPER RESPIRATORY ESTEPHANIE PRESENT Complete 05/07/18 10:29 Stool Clostridium difficile Toxin Assay - Final Complete Objective HEAD AND NECK: No JVD. LUNGS: Decreased breath sounds. CARDIOVASCULAR: Regular S1 and S2 no GRM ABDOMEN: Soft. EXTREMITIES: No edema Tc Liang MD May 09, 2018 14:13
--- NOTE | 2018-05-09 14:20 | Internal Med Progress Note ---
Subjective Date of Service: May 09, 2018 Physician Name Harrell,Edward Attending Physician Ash Henley MD Current Medications Medications (Trade) Dose Ordered Sig/Marcos Route PRN Reason Start Time Stop Time Status Last Admin Dose Admin Acetaminophen (Tylenol) 650 mg Q6H PRN ORAL Mild Pain/Temp > 100.5 05/04/18 12:00 05/12/18 11:59 05/09/18 13:43 Albuterol/ Ipratropium (Albuterol/ Ipratropium) 3 ml Q4H PRN HHN sob 05/08/18 10:30 05/13/18 10:29 05/08/18 21:41 Aspirin (ASA) 81 mg DAILY ORAL 05/05/18 09:00 05/17/18 08:59 05/07/18 09:07 Chlorhexidine Gluconate (Nivia-Hex 2%) 1 applic DAILY@2000 TOPIC 05/04/18 20:00 05/13/18 19:59 05/08/18 20:30 Citalopram Hydrobromide (celeXA) 40 mg DAILY ORAL 05/05/18 09:00 06/03/18 08:59 05/09/18 10:00 Epoetin Alejandro (Procrit (for ESRD on dialysis)) 10,000 units WED-WED-WED SUBQ 05/06/18 21:00 06/05/18 20:59 05/06/18 21:20 Guaifenesin (Robitussin) 300 mg Q6H PRN ORAL For Cough 05/04/18 12:00 05/14/18 11:59 Heparin Sodium (Porcine) (Heparin 5000 units/ml) 5,000 units EVERY 12 HOURS SUBQ 05/04/18 12:30 05/12/18 12:29 Midodrine (Pro-Amatine) 10 mg Q8HR ORAL 05/04/18 14:00 05/19/18 13:59 05/09/18 13:43 Mirtazapine (Remeron) 7.5 mg BEDTIME ORAL 05/04/18 21:00 05/25/18 20:59 05/08/18 20:30 Pantoprazole (Protonix) 40 mg BIAC ORAL 05/04/18 16:30 06/03/18 16:29 05/09/18 06:29 Polyethylene Glycol (Miralax) 17 gm BEDTIME ORAL 05/04/18 21:00 05/21/18 20:59 Sevelamer Carbonate (Renvela) 800 mg THREE TIMES A DAY ORAL 05/08/18 13:00 05/13/18 08:59 05/09/18 13:43 Zolpidem Tartrate (Ambien) 5 mg HSPRN PRN ORAL Insomnia 05/06/18 23:30 05/13/18 23:29 05/07/18 23:47 Allergies: Coded Allergies: CEFAZOLIN (Verified Allergy, Unknown, 10/02/10) CIPROFLOXACIN (Verified Allergy, Unknown, 10/02/10) GENTAMICIN (Verified Allergy, Unknown, 10/02/10) KETAMINE (Verified Allergy, Unknown, 03/29/18) LEVOFLOXACIN (Verified Allergy, Unknown, 10/02/10) PENICILLINS (Verified Allergy, Unknown, ITCH, 10/02/10) Uncoded Allergies: CONTRAST MEDIA (Adverse Reaction, Mild, MILD ITCHING AFTER CONTRAST MEDIA, 04/30/17) ROS Limited/Unobtainable: No Constitutional: Reports: no symptoms HEENT: Reports: no symptoms Cardiovascular: Reports: no symptoms Respiratory: Reports: no symptoms Gastrointestinal/Abdominal: Reports: no symptoms Genitourinary: Reports: no symptoms Neurologic/Psychiatric: Reports: no symptoms Subjective 53 YO F admitted with shortness of breath. Now pneumonia. Cover for Int Med- Dr Henley. S/P endoscopy 05/06/18. S/P transfusion 2 units PRBC on 05/05/18. Objective Last Vital Signs Date Time Temp Pulse Resp B/P (MAP) Pulse Ox O2 Delivery O2 Flow Rate FiO2 05/09/18 09:00 Room Air 05/09/18 08:21 97 2.0 28 05/09/18 08:21 65 14 05/09/18 08:00 98.4 74/35 (48) Laboratory Tests Test 05/09/18 05:30 White Blood Count 6.1 K/UL (4.8-10.8) Red Blood Count 3.27 M/UL (4.20-5.40) L Hemoglobin 9.6 G/DL (12.0-16.0) L Hematocrit 29.8 % (37.0-47.0) L Mean Corpuscular Volume 91 FL (80-99) Mean Corpuscular Hemoglobin 29.3 PG (27.0-31.0) Mean Corpuscular Hemoglobin Concent 32.2 G/DL (32.0-36.0) Red Cell Distribution Width 16.8 % (11.6-14.8) H Platelet Count 185 K/UL (150-450) Mean Platelet Volume 9.5 FL (6.5-10.1) Neutrophils (%) (Auto) 66.9 % (45.0-75.0) Lymphocytes (%) (Auto) 19.5 % (20.0-45.0) L Monocytes (%) (Auto) 8.2 % (1.0-10.0) Eosinophils (%) (Auto) 5.0 % (0.0-3.0) H Basophils (%) (Auto) 0.4 % (0.0-2.0) Sodium Level 142 MMOL/L (136-145) Potassium Level 3.5 MMOL/L (3.5-5.1) Chloride Level 100 MMOL/L (98-107) Carbon Dioxide Level 32 MMOL/L (21-32) Anion Gap 10 mmol/L (5-15) Blood Urea Nitrogen 27 mg/dL (7-18) H Creatinine 7.7 MG/DL (0.55-1.30) H Estimat Glomerular Filtration Rate 6.7 mL/min (>60) Glucose Level 109 MG/DL (74-106) H Calcium Level 9.8 MG/DL (8.5-10.1) Microbiology Date/Time Source Procedure Growth Status 05/07/18 10:29 Sputum Induced Gram Stain - Final Complete 05/07/18 10:29 Sputum Induced Sputum Culture - Final NORMAL UPPER RESPIRATORY ESTEPHANIE PRESENT Complete 05/07/18 10:29 Stool Clostridium difficile Toxin Assay - Final Complete Intake and Output 05/08/18 05/09/18 19:00 07:00 Intake Total 120 ml 120 ml Balance 120 ml 120 ml Intake Oral 120 ml 120 ml # Bowel Movements 1 Objective Objective GENERAL: Awake, responsive, alert HEAD AND NECK: Pupils equal and reactive to light. Extraocular movements intact. Neck was supple. No JVD. LUNGS: Fair air entry. Poor respiratory effort. No wheeze or rhonchi. Decreased air in the bases. HEART: S1 and S2. Distant heart sounds. No murmur. ABDOMEN: Soft, nondistended, and nontender. Morbidly obese. EXTREMITIES: No cyanosis, clubbing, or edema. Right femoral area PermCath as well as left upper extremity AV fistula, functional. NEUROLOGIC: Cranial nerves II through XII are grossly intact. The patient is moving all the extremities spontaneously. Gait was not assessed due to the patient's status. PSYCHIATRIC: Mood and affect are intact. Assessment/Plan Assessment/Plan Assessment/Plan Assessment/Plan 1. Sepsis, most likely secondary to left upper lobe and, to a lesser extent, medial right lower lobe most likely representing multifocal pneumonia. 2. Hypotension, possible septic shock. 3. Pancytopenia with severe thrombocytopenia resolving. 4. End-stage renal disease, on hemodialysis. 5. Altered mental status, most likely toxic metabolic encephalopathy as a result of infection as well as uremia. 6. Anemia of chronic kidney disease. 7. Morbid obesity. 8. Bradycardia. 9. Diarrhea 10. Abdominal pain. 11. Severe anemia PLAN: follow up laboratory and cultures. Dr. Fredrick Conner from Nephrology consult; Hemodialysis 05/10/18. Dr. Mcbride from ID consult. Discussed with the family member, brother at the bedside. Abx:D/C Meropenem, doxycycline and vfend per ID Code status is Full Code. DVT prophylaxis: heparin subcutaneous. continue Dopamine Drip CT of chest noted. Cortisol level Pending. C. Diff neg. Send stool for repeat Continue dopamine See GI consult; KUB=no obstruction advance diet S/P Transfusion 2 unit PRBC 05/05/18 Edward Harrell MD May 09, 2018 14:20
[2018-05-09 16:00] VITALS: BP 97/39
--- NOTE | 2018-05-09 16:38 | NUR ---
Social Service Note [place] referred patient to [facility] [phone] (p) [phone] (f). Patient accepted for placement. [place] met with patient who stated she would prefer to return home upon discharge. Patient states her caregiver will be available on Wednesday. [place] spoke with Yana Mccollum [phone] and confirmed with Keren chair time continues to be available at 1645, updated history faxed to [phone]. In anticipation of dc home [place] faxed referral to to [facility] [phone] (p) [phone] (f). [place] addressed with Dr. Schmidt, Dr. Moses and CM. Addendum: 05/09/18 at 1701 by CHIP PONCE Chun's number is [phone].
--- NOTE | 2018-05-09 17:24 | NUR ---
Social Service Note [place] spoke with patient who has decided to go to [facility] for continuation of care. [place] spoke with Johanne at [facility], no bed available today. Will follow up in AM.
--- NOTE | 2018-05-09 19:25 | NUR ---
HAND-OFF: Report given to WILLI Dodge.
--- NOTE | 2018-05-09 19:28 | NUR ---
NURSE NOTES: Received report from Donis George RN. Patient in bed AAO x4 with no complaints of acute pain at this time, kept clean, dry, and comfortable. Able to verbalize appropriately with no difficulties. IV access centrally at right femoral permacath 2 lumen. intact and patent. Safety precaution in place; siderails x3 up, call light within reach, bed in lowest position, brakes and alarm on at all times. Placed on continuous cardiac monitoring per protocol. Chest XR scheduled 05/10/18 per MD Maliha. Needs and wants anticipated and attended, will continue plan of care and monitor for any changes noted
[2018-05-09 20:00] VITALS: BP 98/48
[2018-05-09] MEDS: Miralax 17gm pkt ORAL SCH (21:00)
--- NOTE | 2018-05-09 21:22 | General Progress Note ---
Assessment/Plan Problem List: (1) Anxiety ICD Codes: F41.9 - Anxiety disorder, unspecified SNOMED: 72567876 (2) Panic attack ICD Codes: F41.0 - Panic disorder [episodic paroxysmal anxiety] SNOMED: 215386633 Assessment/Plan Celexa 40mg qam Remeron 7.5 mg qhs provided ro/st Subjective Neurologic/Psychiatric: Reports: anxiety, depressed, emotional problems Allergies: Coded Allergies: CEFAZOLIN (Verified Allergy, Unknown, 10/02/10) CIPROFLOXACIN (Verified Allergy, Unknown, 10/02/10) GENTAMICIN (Verified Allergy, Unknown, 10/02/10) KETAMINE (Verified Allergy, Unknown, 03/29/18) LEVOFLOXACIN (Verified Allergy, Unknown, 10/02/10) PENICILLINS (Verified Allergy, Unknown, ITCH, 10/02/10) Uncoded Allergies: CONTRAST MEDIA (Adverse Reaction, Mild, MILD ITCHING AFTER CONTRAST MEDIA, 04/30/17) Objective Last 24 Hour Vital Signs Date Time Temp Pulse Resp B/P (MAP) Pulse Ox O2 Delivery O2 Flow Rate FiO2 05/09/18 16:00 98.5 75 20 97/39 (58) 92 05/09/18 15:45 70 05/09/18 12:22 89 05/09/18 12:00 97.3 68 20 94/37 (56) 92 05/09/18 09:00 Room Air 05/09/18 08:21 97 Nasal Cannula 2.0 28 05/09/18 08:21 65 14 2.0 28 05/09/18 08:21 Nasal Cannula 2.0 28 05/09/18 08:00 69 05/09/18 08:00 98.4 64 20 74/35 (48) 96 05/09/18 04:00 97.0 76 20 146/71 (96) 96 05/09/18 04:00 66 05/09/18 00:00 66 05/09/18 00:00 97.7 69 20 74/42 (53) 96 05/08/18 23:23 84 18 96 Nasal Cannula 2.0 28 05/08/18 23:22 28 05/08/18 21:42 81 18 94 Nasal Cannula 2.0 28 Intake and Output 05/08/18 05/09/18 18:59 06:59 Intake Total 120 ml 120 ml Balance 120 ml 120 ml Intake Oral 120 ml 120 ml # Bowel Movements 1 Laboratory Tests 05/09/18 05:30: White Blood Count 6.1, Red Blood Count 3.27L, Hemoglobin 9.6L, Hematocrit 29.8L , Mean Corpuscular Volume 91, Mean Corpuscular Hemoglobin 29.3, Mean Corpuscular Hemoglobin Concent 32.2, Red Cell Distribution Width 16.8H, Platelet Count 185, Mean Platelet Volume 9.5, Neutrophils (%) (Auto) 66.9, Lymphocytes (%) (Auto) 19.5L, Monocytes (%) (Auto) 8.2, Eosinophils (%) (Auto) 5.0H, Basophils (%) (Auto) 0.4, Sodium Level 142, Potassium Level 3.5, Chloride Level 100, Carbon Dioxide Level 32, Anion Gap 10, Blood Urea Nitrogen 27H, Creatinine 7.7H, Estimat Glomerular Filtration Rate 6.7, Glucose Level 109H, Calcium Level 9.8 Height (Feet): 5 Height (Inches): 6.00 Weight (Pounds): 214 General Appearance: alert Neurologic: oriented x 3, responsive, depressed affect Edwin Brown MD May 09, 2018 21:22
[2018-05-09] MEDS: Dyna-Hex 2% Top Sol 2oz TOPIC SCH (21:45)
[2018-05-09] MEDS: Zolpidem 5mg tab ORAL PRN (21:46)
[2018-05-09] MEDS: Epogen (for ESRD on dialysis) SUBQ SCH (21:47)
[2018-05-10] VITALS: BP 109/46
--- NOTE | 2018-05-10 02:19 | NUR ---
NURSE NOTES: Patient in bed asleep with no S/S of distress. Will continue to monitor
[2018-05-10 04:00] VITALS: BP 106/62
[2018-05-10] MEDS: Midodrine 10mg tab ORAL SCH ×3 (05:47→22:03)
[2018-05-10] MEDS ORDERED: Lomotil 2.5mg tab ORAL PRN (07:15)
[2018-05-10 07:21] LABS: ANION GAP 8 mmol/L (5-15); BLOOD UREA NITROGEN 32 mg/dL (7-18); CALCIUM 9.6 MG/DL (8.5-10.1); CARBON DIOXIDE 33 MMOL/L (21-32); CHLORIDE 102 MMOL/L (98-107); PHOSPHORUS 3.4 MG/DL (2.5-4.9); POTASSIUM 3.5 MMOL/L (3.5-5.1); SODIUM 143 MMOL/L (136-145)
[2018-05-10 07:29] LABS: BASOPHILS % (AUTO) 0.6 % (0.0-2.0); HEMATOCRIT 26.8 % (37.0-47.0); HEMOGLOBIN 8.7 G/DL (12.0-16.0); LYMPHOCYTES % (AUTO) 16.8 % (20.0-45.0); MEAN CORPUSCULAR VOLUME 92 FL (80-99); MONOCYTES % (AUTO) 7.1 % (1.0-10.0); NEUTROPHILS % (AUTO) 69.5 % (45.0-75.0); PLATELET COUNT 172 K/UL (150-450); RED BLOOD COUNT 2.93 M/UL (4.20-5.40); RED CELL DISTRIBUTION WIDTH 15.9 % (11.6-14.8)
--- NOTE | 2018-05-10 07:34 | NUR ---
HAND-OFF: Report given to Donis George RN. Endorsed plan of care.
--- NOTE | 2018-05-10 07:35 | NUR ---
NURSE NOTES: Report received from WILLI Dodge. Pt is resting in bed, sleeping. Pt breathing is even and unlabored in room air, no signs and symptoms of acute distress at this time. Bed placed in lowest position with brake engaged and two side rails up. Call light and side table placed within reach. Patient will receive her hemodialysis today. Will continue to monitor and follow plan of care.
[2018-05-10 08:00] VITALS: BP 79/37
--- NOTE | 2018-05-10 09:12 | NUR ---
RADIOLOGY DEPT CHEST X-RAY DONE.-P.DYE
[2018-05-10] MEDS: Heparin 5000 units/ml inj SUBQ SCH ×2 (09:30→20:36)
[2018-05-10] MEDS: Citalopram Hydrobromide 10mg Tab ORAL SCH (09:30)
[2018-05-10] MEDS: Aspirin Baby 81mg ORAL SCH (09:30)
--- NOTE | 2018-05-10 10:44 | Cardiac Electrophysiology PN ---
Assessment/Plan Assessment/Plan 1. Troponin leak due to renal failure. Levels low and flat. No chest pain. 2. S/P Septic shock. On midodrine 10 mg tid. 3. Bradycardia. Resolved. 4. Anterior T-wave inversion. No chest pain. EF 60% 5. End-stage renal disease, on hemodialysis 6. Diarrhea C. Diff was negative 7. Severe anemia Hb 6.5 s/p transfusion> 9.6 DW RN Subjective Subjective No CP or SOB. Had transient hypotension in 70s this AM but asymptomatic and getting HD. RN at bedside. Objective Last 24 Hour Vital Signs Date Time Temp Pulse Resp B/P (MAP) Pulse Ox O2 Delivery O2 Flow Rate FiO2 05/10/18 09:00 Room Air 05/10/18 08:00 98.2 72 18 79/37 (51) 93 05/10/18 08:00 65 05/10/18 04:00 68 05/10/18 04:00 97.9 65 19 106/62 (77) 93 05/10/18 03:08 68 14 2.0 28 05/10/18 03:08 Nasal Cannula 2.0 28 05/10/18 03:08 94 Nasal Cannula 2.0 28 05/10/18 00:00 98.1 73 17 109/46 (67) 93 05/10/18 00:00 70 05/09/18 21:00 Room Air 05/09/18 20:00 98.1 62 18 98/48 (65) 94 05/09/18 20:00 73 05/09/18 16:00 98.5 75 20 97/39 (58) 92 05/09/18 15:45 70 05/09/18 12:22 89 05/09/18 12:00 97.3 68 20 94/37 (56) 92 Intake and Output 05/09/18 05/10/18 19:00 07:00 Intake Total 120 ml Balance 120 ml Intake Oral 120 ml # Voids 2 # Bowel Movements 1 1 Laboratory Tests Test 05/10/18 07:00 White Blood Count 6.0 K/UL (4.8-10.8) Red Blood Count 2.93 M/UL (4.20-5.40) L Hemoglobin 8.7 G/DL (12.0-16.0) L Hematocrit 26.8 % (37.0-47.0) L Mean Corpuscular Volume 92 FL (80-99) Mean Corpuscular Hemoglobin 29.8 PG (27.0-31.0) Mean Corpuscular Hemoglobin Concent 32.5 G/DL (32.0-36.0) Red Cell Distribution Width 15.9 % (11.6-14.8) H Platelet Count 172 K/UL (150-450) Mean Platelet Volume 9.4 FL (6.5-10.1) Neutrophils (%) (Auto) 69.5 % (45.0-75.0) Lymphocytes (%) (Auto) 16.8 % (20.0-45.0) L Monocytes (%) (Auto) 7.1 % (1.0-10.0) Eosinophils (%) (Auto) 6.0 % (0.0-3.0) H Basophils (%) (Auto) 0.6 % (0.0-2.0) Sodium Level 143 MMOL/L (136-145) Potassium Level 3.5 MMOL/L (3.5-5.1) Chloride Level 102 MMOL/L (98-107) Carbon Dioxide Level 33 MMOL/L (21-32) H Anion Gap 8 mmol/L (5-15) Blood Urea Nitrogen 32 mg/dL (7-18) H Creatinine 9.0 MG/DL (0.55-1.30) H Estimat Glomerular Filtration Rate 5.6 mL/min (>60) Glucose Level 104 MG/DL (74-106) Calcium Level 9.6 MG/DL (8.5-10.1) Phosphorus Level 3.4 MG/DL (2.5-4.9) Magnesium Level 1.8 MG/DL (1.8-2.4) Objective HEAD AND NECK: No JVD. LUNGS: Decreased breath sounds. CARDIOVASCULAR: Regular S1 and S2 no GRM ABDOMEN: Soft. EXTREMITIES: No edema Tc Liang MD May 10, 2018 10:44
--- NOTE | 2018-05-10 11:14 | Pulmonology Progress Note ---
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 check electrolytes med/recon completed Subjective ROS Limited/Unobtainable: No Interval Events: late note for Constitutional: Reports: no symptoms HEENT: Repors: no symptoms Allergies: Coded Allergies: CEFAZOLIN (Verified Allergy, Unknown, 10/02/10) CIPROFLOXACIN (Verified Allergy, Unknown, 10/02/10) GENTAMICIN (Verified Allergy, Unknown, 10/02/10) KETAMINE (Verified Allergy, Unknown, 03/29/18) LEVOFLOXACIN (Verified Allergy, Unknown, 10/02/10) PENICILLINS (Verified Allergy, Unknown, ITCH, 10/02/10) Uncoded Allergies: CONTRAST MEDIA (Adverse Reaction, Mild, MILD ITCHING AFTER CONTRAST MEDIA, 04/30/17) Objective Last 24 Hour Vital Signs Date Time Temp Pulse Resp B/P (MAP) Pulse Ox O2 Delivery O2 Flow Rate FiO2 05/10/18 09:00 Room Air 05/10/18 08:00 98.2 72 18 79/37 (51) 93 05/10/18 08:00 65 05/10/18 04:00 68 05/10/18 04:00 97.9 65 19 106/62 (77) 93 05/10/18 03:08 68 14 2.0 28 05/10/18 03:08 Nasal Cannula 2.0 28 05/10/18 03:08 94 Nasal Cannula 2.0 28 05/10/18 00:00 98.1 73 17 109/46 (67) 93 05/10/18 00:00 70 05/09/18 21:00 Room Air 05/09/18 20:00 98.1 62 18 98/48 (65) 94 05/09/18 20:00 73 05/09/18 16:00 98.5 75 20 97/39 (58) 92 05/09/18 15:45 70 05/09/18 12:22 89 05/09/18 12:00 97.3 68 20 94/37 (56) 92 Intake and Output 05/09/18 05/10/18 19:00 07:00 Intake Total 120 ml Balance 120 ml Intake Oral 120 ml # Voids 2 # Bowel Movements 1 1 General Appearance: no acute distress HEENT: normocephalic Respiratory/Chest: chest wall non-tender, lungs clear Breasts: no masses Cardiovascular: normal peripheral pulses Abdomen: normal bowel sounds, no organomegaly Genitourinary: normal external genitalia Skin: no rash Laboratory Tests 05/10/18 07:00: White Blood Count 6.0, Red Blood Count 2.93L, Hemoglobin 8.7L, Hematocrit 26.8L , Mean Corpuscular Volume 92, Mean Corpuscular Hemoglobin 29.8, Mean Corpuscular Hemoglobin Concent 32.5, Red Cell Distribution Width 15.9H, Platelet Count 172, Mean Platelet Volume 9.4, Neutrophils (%) (Auto) 69.5, Lymphocytes (%) (Auto) 16.8L, Monocytes (%) (Auto) 7.1, Eosinophils (%) (Auto) 6.0H, Basophils (%) (Auto) 0.6, Sodium Level 143, Potassium Level 3.5, Chloride Level 102, Carbon Dioxide Level 33H, Anion Gap 8, Blood Urea Nitrogen 32H, Creatinine 9.0H, Estimat Glomerular Filtration Rate 5.6, Glucose Level 104, Calcium Level 9.6, Phosphorus Level 3.4, Magnesium Level 1.8 Current Medications Medications (Trade) Dose Ordered Sig/Marcos Route PRN Reason Start Time Stop Time Status Last Admin Dose Admin Acetaminophen (Tylenol) 650 mg Q6H PRN ORAL Mild Pain/Temp > 100.5 05/04/18 12:00 05/12/18 11:59 05/09/18 21:46 Albuterol/ Ipratropium (Albuterol/ Ipratropium) 3 ml Q4H PRN HHN sob 05/08/18 10:30 05/13/18 10:29 05/08/18 21:41 Aspirin (ASA) 81 mg DAILY ORAL 05/05/18 09:00 05/17/18 08:59 05/07/18 09:07 Chlorhexidine Gluconate (Nivia-Hex 2%) 1 applic DAILY@1999 TOPIC 05/04/18 20:00 05/13/18 19:59 05/09/18 21:45 Citalopram Hydrobromide (celeXA) 40 mg DAILY ORAL 05/05/18 09:00 06/03/18 08:59 05/09/18 10:00 Diphenoxylate HCl/ Atropine (Lomotil) 2.5 mg Q8H PRN ORAL Diarrhea 05/10/18 07:15 06/09/18 07:14 Epoetin Alejandro (Procrit (for ESRD on dialysis)) 10,000 units WED-WED-WED SUBQ 05/06/18 21:00 06/05/18 20:59 05/09/18 21:47 Guaifenesin (Robitussin) 300 mg Q6H PRN ORAL For Cough 05/04/18 12:00 05/14/18 11:59 Heparin Sodium (Porcine) (Heparin 5000 units/ml) 5,000 units EVERY 12 HOURS SUBQ 05/04/18 12:30 05/12/18 12:29 Midodrine (Pro-Amatine) 10 mg Q8HR ORAL 05/04/18 14:00 05/19/18 13:59 05/10/18 05:47 Mirtazapine (Remeron) 7.5 mg BEDTIME ORAL 05/04/18 21:00 05/25/18 20:59 05/09/18 21:46 Pantoprazole (Protonix) 40 mg BIAC ORAL 05/04/18 16:30 06/03/18 16:29 05/10/18 05:47 Polyethylene Glycol (Miralax) 17 gm BEDTIME ORAL 05/04/18 21:00 05/21/18 20:59 Sevelamer Carbonate (Renvela) 800 mg THREE TIMES A DAY ORAL 05/08/18 13:00 05/13/18 08:59 05/09/18 17:30 Zolpidem Tartrate (Ambien) 5 mg HSPRN PRN ORAL Insomnia 05/06/18 23:30 05/13/18 23:29 05/09/18 21:46 Cuate Schmidt MD May 10, 2018 11:14
--- NOTE | 2018-05-10 11:15 | Pulmonology Progress Note ---
Assessment/Plan Problems: (1) Acute respiratory failure with hypoxemia (2) Septic shock (3) Pneumonia (4) ESRD (end stage renal disease) on dialysis Assessment/Plan no new complains agreed to go to [facility] ABD US noted hemodynamically better off abx HD today check electrolytes med/recon completed transfer to [place] today Subjective ROS Limited/Unobtainable: No Interval Events: being dialyzed now Constitutional: Reports: no symptoms Respiratory: Reports: no symptoms Allergies: Coded Allergies: CEFAZOLIN (Verified Allergy, Unknown, 10/02/10) CIPROFLOXACIN (Verified Allergy, Unknown, 10/02/10) GENTAMICIN (Verified Allergy, Unknown, 10/02/10) KETAMINE (Verified Allergy, Unknown, 03/29/18) LEVOFLOXACIN (Verified Allergy, Unknown, 10/02/10) PENICILLINS (Verified Allergy, Unknown, ITCH, 10/02/10) Uncoded Allergies: CONTRAST MEDIA (Adverse Reaction, Mild, MILD ITCHING AFTER CONTRAST MEDIA, 04/30/17) Objective Last 24 Hour Vital Signs Date Time Temp Pulse Resp B/P (MAP) Pulse Ox O2 Delivery O2 Flow Rate FiO2 05/10/18 09:00 Room Air 05/10/18 08:00 98.2 72 18 79/37 (51) 93 05/10/18 08:00 65 05/10/18 04:00 68 05/10/18 04:00 97.9 65 19 106/62 (77) 93 05/10/18 03:08 68 14 2.0 28 05/10/18 03:08 Nasal Cannula 2.0 28 05/10/18 03:08 94 Nasal Cannula 2.0 28 05/10/18 00:00 98.1 73 17 109/46 (67) 93 05/10/18 00:00 70 05/09/18 21:00 Room Air 05/09/18 20:00 98.1 62 18 98/48 (65) 94 05/09/18 20:00 73 05/09/18 16:00 98.5 75 20 97/39 (58) 92 05/09/18 15:45 70 05/09/18 12:22 89 05/09/18 12:00 97.3 68 20 94/37 (56) 92 Intake and Output 05/09/18 05/10/18 19:00 07:00 Intake Total 120 ml Balance 120 ml Intake Oral 120 ml # Voids 2 # Bowel Movements 1 1 General Appearance: WD/WN HEENT: normocephalic, atraumatic Respiratory/Chest: chest wall non-tender, lungs clear Cardiovascular: normal peripheral pulses, regularly irregular Abdomen: no mass Extremities: no cyanosis Skin: no rash Laboratory Tests 05/10/18 07:00: White Blood Count 6.0, Red Blood Count 2.93L, Hemoglobin 8.7L, Hematocrit 26.8L , Mean Corpuscular Volume 92, Mean Corpuscular Hemoglobin 29.8, Mean Corpuscular Hemoglobin Concent 32.5, Red Cell Distribution Width 15.9H, Platelet Count 172, Mean Platelet Volume 9.4, Neutrophils (%) (Auto) 69.5, Lymphocytes (%) (Auto) 16.8L, Monocytes (%) (Auto) 7.1, Eosinophils (%) (Auto) 6.0H, Basophils (%) (Auto) 0.6, Sodium Level 143, Potassium Level 3.5, Chloride Level 102, Carbon Dioxide Level 33H, Anion Gap 8, Blood Urea Nitrogen 32H, Creatinine 9.0H, Estimat Glomerular Filtration Rate 5.6, Glucose Level 104, Calcium Level 9.6, Phosphorus Level 3.4, Magnesium Level 1.8 Current Medications Medications (Trade) Dose Ordered Sig/Marcos Route PRN Reason Start Time Stop Time Status Last Admin Dose Admin Acetaminophen (Tylenol) 650 mg Q6H PRN ORAL Mild Pain/Temp > 100.5 05/04/18 12:00 05/12/18 11:59 05/09/18 21:46 Albuterol/ Ipratropium (Albuterol/ Ipratropium) 3 ml Q4H PRN HHN sob 05/08/18 10:30 05/13/18 10:29 05/08/18 21:41 Aspirin (ASA) 81 mg DAILY ORAL 05/05/18 09:00 05/17/18 08:59 05/07/18 09:07 Chlorhexidine Gluconate (Nivia-Hex 2%) 1 applic DAILY@1999 TOPIC 05/04/18 20:00 05/13/18 19:59 05/09/18 21:45 Citalopram Hydrobromide (celeXA) 40 mg DAILY ORAL 05/05/18 09:00 06/03/18 08:59 05/09/18 10:00 Diphenoxylate HCl/ Atropine (Lomotil) 2.5 mg Q8H PRN ORAL Diarrhea 05/10/18 07:15 06/09/18 07:14 Epoetin Alejandro (Procrit (for ESRD on dialysis)) 10,000 units WED-WED-WED SUBQ 05/06/18 21:00 06/05/18 20:59 05/09/18 21:47 Guaifenesin (Robitussin) 300 mg Q6H PRN ORAL For Cough 05/04/18 12:00 05/14/18 11:59 Heparin Sodium (Porcine) (Heparin 5000 units/ml) 5,000 units EVERY 12 HOURS SUBQ 05/04/18 12:30 05/12/18 12:29 Midodrine (Pro-Amatine) 10 mg Q8HR ORAL 05/04/18 14:00 05/19/18 13:59 05/10/18 05:47 Mirtazapine (Remeron) 7.5 mg BEDTIME ORAL 05/04/18 21:00 05/25/18 20:59 05/09/18 21:46 Pantoprazole (Protonix) 40 mg BIAC ORAL 05/04/18 16:30 06/03/18 16:29 05/10/18 05:47 Polyethylene Glycol (Miralax) 17 gm BEDTIME ORAL 05/04/18 21:00 05/21/18 20:59 Sevelamer Carbonate (Renvela) 800 mg THREE TIMES A DAY ORAL 05/08/18 13:00 05/13/18 08:59 05/09/18 17:30 Zolpidem Tartrate (Ambien) 5 mg HSPRN PRN ORAL Insomnia 05/06/18 23:30 05/13/18 23:29 05/09/18 21:46 Cuate Schmidt MD May 10, 2018 11:15
--- NOTE | 2018-05-10 11:45 | General Progress Note ---
Assessment/Plan Problem List: (1) Anxiety ICD Codes: F41.9 - Anxiety disorder, unspecified SNOMED: 70364449 (2) Panic attack ICD Codes: F41.0 - Panic disorder [episodic paroxysmal anxiety] SNOMED: 854342661 Status: stable Assessment/Plan Celexa 40mg qam Remeron 15 mg qhs provided ro/st Subjective Neurologic/Psychiatric: Reports: anxiety, depressed, emotional problems, headache Allergies: Coded Allergies: CEFAZOLIN (Verified Allergy, Unknown, 10/02/10) CIPROFLOXACIN (Verified Allergy, Unknown, 10/02/10) GENTAMICIN (Verified Allergy, Unknown, 10/02/10) KETAMINE (Verified Allergy, Unknown, 03/29/18) LEVOFLOXACIN (Verified Allergy, Unknown, 10/02/10) PENICILLINS (Verified Allergy, Unknown, ITCH, 10/02/10) Uncoded Allergies: CONTRAST MEDIA (Adverse Reaction, Mild, MILD ITCHING AFTER CONTRAST MEDIA, 04/30/17) Subjective was getting HD today. cont to be depressed and anxious Objective Last 24 Hour Vital Signs Date Time Temp Pulse Resp B/P (MAP) Pulse Ox O2 Delivery O2 Flow Rate FiO2 05/10/18 09:00 Room Air 05/10/18 08:00 98.2 72 18 79/37 (51) 93 05/10/18 08:00 65 05/10/18 04:00 68 05/10/18 04:00 97.9 65 19 106/62 (77) 93 05/10/18 03:08 68 14 2.0 28 05/10/18 03:08 Nasal Cannula 2.0 28 05/10/18 03:08 94 Nasal Cannula 2.0 28 05/10/18 00:00 98.1 73 17 109/46 (67) 93 05/10/18 00:00 70 05/09/18 21:00 Room Air 05/09/18 20:00 98.1 62 18 98/48 (65) 94 05/09/18 20:00 73 05/09/18 16:00 98.5 75 20 97/39 (58) 92 05/09/18 15:45 70 05/09/18 12:22 89 05/09/18 12:00 97.3 68 20 94/37 (56) 92 Intake and Output 05/09/18 05/10/18 19:00 07:00 Intake Total 120 ml Balance 120 ml Intake Oral 120 ml # Voids 2 # Bowel Movements 1 1 Laboratory Tests 05/10/18 07:00: White Blood Count 6.0, Red Blood Count 2.93L, Hemoglobin 8.7L, Hematocrit 26.8L , Mean Corpuscular Volume 92, Mean Corpuscular Hemoglobin 29.8, Mean Corpuscular Hemoglobin Concent 32.5, Red Cell Distribution Width 15.9H, Platelet Count 172, Mean Platelet Volume 9.4, Neutrophils (%) (Auto) 69.5, Lymphocytes (%) (Auto) 16.8L, Monocytes (%) (Auto) 7.1, Eosinophils (%) (Auto) 6.0H, Basophils (%) (Auto) 0.6, Sodium Level 143, Potassium Level 3.5, Chloride Level 102, Carbon Dioxide Level 33H, Anion Gap 8, Blood Urea Nitrogen 32H, Creatinine 9.0H, Estimat Glomerular Filtration Rate 5.6, Glucose Level 104, Calcium Level 9.6, Phosphorus Level 3.4, Magnesium Level 1.8 Height (Feet): 5 Height (Inches): 6.00 Weight (Pounds): 215 General Appearance: no apparent distress, alert, obese Neurologic: oriented x 3, responsive, depressed affect Edwin Brown MD May 10, 2018 11:45
[2018-05-10 12:00] VITALS: BP 109/69
--- NOTE | 2018-05-10 12:24 | Nephrology Progress Note ---
Assessment/Plan Problem List: (1) ESRD (end stage renal disease) on dialysis (2) Hypotension (3) Anemia of renal disease Assessment: worsening (4) Metabolic encephalopathy (5) Pneumonia Assessment ESRD HypoThyroidism- Periodic Hypotension- encephalopathic , metabolic- Plan endoscopy 05/06 banding of esophageal varices Transfused dialysis 05/10 in process consider transfusion as needed- has antibodies Reglan for vomiting recheck serum cortisol level- noted add asa and isordil for rising Troponin add prn imodium for loose bm per orders midodrine per consultants antibiotics for pneumonia Subjective ROS Limited/Unobtainable: No Constitutional: Reports: malaise Objective Objective Last 24 Hour Vital Signs Date Time Temp Pulse Resp B/P (MAP) Pulse Ox O2 Delivery O2 Flow Rate FiO2 05/10/18 12:00 97.6 79 18 109/69 (82) 99 05/10/18 09:00 Room Air 05/10/18 08:00 98.2 72 18 79/37 (51) 93 05/10/18 08:00 65 05/10/18 04:00 68 05/10/18 04:00 97.9 65 19 106/62 (77) 93 05/10/18 03:08 68 14 2.0 28 05/10/18 03:08 Nasal Cannula 2.0 28 05/10/18 03:08 94 Nasal Cannula 2.0 28 05/10/18 00:00 98.1 73 17 109/46 (67) 93 05/10/18 00:00 70 05/09/18 21:00 Room Air 05/09/18 20:00 98.1 62 18 98/48 (65) 94 05/09/18 20:00 73 05/09/18 16:00 98.5 75 20 97/39 (58) 92 05/09/18 15:45 70 Intake and Output 05/09/18 05/10/18 19:00 07:00 Intake Total 120 ml Balance 120 ml Intake Oral 120 ml # Voids 2 # Bowel Movements 1 1 Current Medications Medications (Trade) Dose Ordered Sig/Marcos Route PRN Reason Start Time Stop Time Status Last Admin Dose Admin Acetaminophen (Tylenol) 650 mg Q6H PRN ORAL Mild Pain/Temp > 100.5 05/04/18 12:00 05/12/18 11:59 05/09/18 21:46 Albuterol/ Ipratropium (Albuterol/ Ipratropium) 3 ml Q4H PRN HHN sob 05/08/18 10:30 05/13/18 10:29 05/08/18 21:41 Aspirin (ASA) 81 mg DAILY ORAL 05/05/18 09:00 05/17/18 08:59 05/07/18 09:07 Chlorhexidine Gluconate (Nivia-Hex 2%) 1 applic DAILY@2000 TOPIC 05/04/18 20:00 05/13/18 19:59 05/09/18 21:45 Citalopram Hydrobromide (celeXA) 40 mg DAILY ORAL 05/05/18 09:00 06/03/18 08:59 05/09/18 10:00 Diphenoxylate HCl/ Atropine (Lomotil) 2.5 mg Q8H PRN ORAL Diarrhea 05/10/18 07:15 06/09/18 07:14 Epoetin Alejandro (Procrit (for ESRD on dialysis)) 10,000 units WED-WED-WED SUBQ 05/06/18 21:00 06/05/18 20:59 05/09/18 21:47 Guaifenesin (Robitussin) 300 mg Q6H PRN ORAL For Cough 05/04/18 12:00 05/14/18 11:59 Heparin Sodium (Porcine) (Heparin 5000 units/ml) 5,000 units EVERY 12 HOURS SUBQ 05/04/18 12:30 05/12/18 12:29 Midodrine (Pro-Amatine) 10 mg Q8HR ORAL 05/04/18 14:00 05/19/18 13:59 05/10/18 05:47 Mirtazapine (Remeron) 7.5 mg BEDTIME ORAL 05/04/18 21:00 05/25/18 20:59 05/09/18 21:46 Pantoprazole (Protonix) 40 mg BIAC ORAL 05/04/18 16:30 06/03/18 16:29 05/10/18 05:47 Polyethylene Glycol (Miralax) 17 gm BEDTIME ORAL 05/04/18 21:00 05/21/18 20:59 Sevelamer Carbonate (Renvela) 800 mg THREE TIMES A DAY ORAL 05/08/18 13:00 05/13/18 08:59 05/09/18 17:30 Zolpidem Tartrate (Ambien) 5 mg HSPRN PRN ORAL Insomnia 05/06/18 23:30 05/13/18 23:29 05/09/18 21:46 Laboratory Tests 05/10/18 07:00: White Blood Count 6.0, Red Blood Count 2.93L, Hemoglobin 8.7L, Hematocrit 26.8L , Mean Corpuscular Volume 92, Mean Corpuscular Hemoglobin 29.8, Mean Corpuscular Hemoglobin Concent 32.5, Red Cell Distribution Width 15.9H, Platelet Count 172, Mean Platelet Volume 9.4, Neutrophils (%) (Auto) 69.5, Lymphocytes (%) (Auto) 16.8L, Monocytes (%) (Auto) 7.1, Eosinophils (%) (Auto) 6.0H, Basophils (%) (Auto) 0.6, Sodium Level 143, Potassium Level 3.5, Chloride Level 102, Carbon Dioxide Level 33H, Anion Gap 8, Blood Urea Nitrogen 32H, Creatinine 9.0H, Estimat Glomerular Filtration Rate 5.6, Glucose Level 104, Calcium Level 9.6, Phosphorus Level 3.4, Magnesium Level 1.8 Height (Feet): 5 Height (Inches): 6.00 Weight (Pounds): 215 General Appearance: no apparent distress Respiratory/Chest: decreased breath sounds Abdomen: soft Objective no change Fredrick Conner MD May 10, 2018 12:24
--- NOTE | 2018-05-10 13:00 | NUR ---
*-* CASE MANAGEMENT NOTED *-* PATIENT IS ON HOME HEALTH SERVICE WITH: [facility] P:[phone] F:[phone]
--- NOTE | 2018-05-10 13:03 | GI Progress Note ---
Assessment/Plan Problems: (1) Epigastric abdominal pain ICD Codes: R10.13 - Epigastric pain SNOMED: 16622185 (2) Anxiety ICD Codes: F41.9 - Anxiety disorder, unspecified SNOMED: 83714450 (3) Constipation ICD Codes: K59.00 - Constipation, unspecified SNOMED: 99299162 (4) Anemia of renal disease ICD Codes: D63.1 - Anemia in chronic kidney disease SNOMED: 119922294, 941924191 Status: stable Status Narrative Discussed with Dr. Diaz Assessment/Plan SUMMARY OF FINDINGS: 1. Status post upper endoscopy with banding of 7 bands of esophageal varices. 2. Hiatal hernia. 3. Portal hypertensive gastropathy. RECOMMENDATIONS: Needs repeat banding in one month and outpatient follow up to evaluated for possible PBC. As needed transfusions Advance to soft diet protonix daily zofran prn fu labs bowel regimen pain mgmt PT evaluation DC planning The patient was seen and examined at bedside and all new and available data was reviewed in the patients chart. I agree with the above findings, impression and plan. (Patient seen earlier today. Signature stamp does not reflect patient encounter time.). - Ryley Diaz MD The patient was seen and examined at bedside and all new and available data was reviewed in the patients chart. I agree with the above findings, impression and plan. (Patient seen earlier today. Signature stamp does not reflect patient encounter time.). - Ryley Diaz MD Subjective Subjective denies abdominal pain nausea has resolved constipated Objective Last 24 Hour Vital Signs Date Time Temp Pulse Resp B/P (MAP) Pulse Ox O2 Delivery O2 Flow Rate FiO2 05/10/18 12:00 97.6 79 18 109/69 (82) 99 05/10/18 09:00 Room Air 05/10/18 08:00 98.2 72 18 79/37 (51) 93 05/10/18 08:00 65 05/10/18 04:00 68 05/10/18 04:00 97.9 65 19 106/62 (77) 93 05/10/18 03:08 68 14 2.0 28 05/10/18 03:08 Nasal Cannula 2.0 28 05/10/18 03:08 94 Nasal Cannula 2.0 28 05/10/18 00:00 98.1 73 17 109/46 (67) 93 05/10/18 00:00 70 05/09/18 21:00 Room Air 05/09/18 20:00 98.1 62 18 98/48 (65) 94 05/09/18 20:00 73 05/09/18 16:00 98.5 75 20 97/39 (58) 92 05/09/18 15:45 70 Intake and Output 05/09/18 05/10/18 19:00 07:00 Intake Total 120 ml Balance 120 ml Intake Oral 120 ml # Voids 2 # Bowel Movements 1 1 Laboratory Tests Test 05/10/18 07:00 White Blood Count 6.0 K/UL (4.8-10.8) Red Blood Count 2.93 M/UL (4.20-5.40) L Hemoglobin 8.7 G/DL (12.0-16.0) L Hematocrit 26.8 % (37.0-47.0) L Mean Corpuscular Volume 92 FL (80-99) Mean Corpuscular Hemoglobin 29.8 PG (27.0-31.0) Mean Corpuscular Hemoglobin Concent 32.5 G/DL (32.0-36.0) Red Cell Distribution Width 15.9 % (11.6-14.8) H Platelet Count 172 K/UL (150-450) Mean Platelet Volume 9.4 FL (6.5-10.1) Neutrophils (%) (Auto) 69.5 % (45.0-75.0) Lymphocytes (%) (Auto) 16.8 % (20.0-45.0) L Monocytes (%) (Auto) 7.1 % (1.0-10.0) Eosinophils (%) (Auto) 6.0 % (0.0-3.0) H Basophils (%) (Auto) 0.6 % (0.0-2.0) Sodium Level 143 MMOL/L (136-145) Potassium Level 3.5 MMOL/L (3.5-5.1) Chloride Level 102 MMOL/L (98-107) Carbon Dioxide Level 33 MMOL/L (21-32) H Anion Gap 8 mmol/L (5-15) Blood Urea Nitrogen 32 mg/dL (7-18) H Creatinine 9.0 MG/DL (0.55-1.30) H Estimat Glomerular Filtration Rate 5.6 mL/min (>60) Glucose Level 104 MG/DL (74-106) Calcium Level 9.6 MG/DL (8.5-10.1) Phosphorus Level 3.4 MG/DL (2.5-4.9) Magnesium Level 1.8 MG/DL (1.8-2.4) Height (Feet): 5 Height (Inches): 6.00 Weight (Pounds): 215 General Appearance: WD/WN, no apparent distress, alert Cardiovascular: normal rate Respiratory/Chest: normal breath sounds, no respiratory distress Abdominal Exam: normal bowel sounds, non tender, soft Extremities: normal range of motion, non-tender Wm Faustin NP May 10, 2018 13:03
--- NOTE | 2018-05-10 14:23 | NUR ---
RD ASSESSMENT & RECOMMENDATIONS SEE CARE ACTIVITY FOR COMPLETE ASSESSMENT DAILY ESTIMATED NEEDS: Needs based on ESRD on HD, obese 66.4kg adj 25-30 kcals/kg 7834-9299 total kcals 1.2-1.8 g protein/kg 80-120 g total protein Fluid per MD, on HD mL/kg total fluid mLs NUTRITION DIAGNOSIS: 1) Increased protein needs R/T renal dysfunction as evidenced by pt w/ ESRD on HD w/ variable PO intake at this time 2) Altered nutrition related lab values R/T renal dysfunction, pre-DM?, clinical condition as evidenced by low Na (133-> wnl), elev BNP (9287->3476), A1C=6.0, low K (3.2), low phos now wnl. 3) Altered GI function r/t esophageal varices as evidenced by s/p upper EGD w/ banding x7. CURRENT DIET:Renal, soft easy chew + Nepro BID PO DIET RECOMMENDATIONS: Liberalized diet of Low Na w/ continued variable PO intake/ soft texture ADDITIONAL RECOMMENDATIONS: 1) Weights per policy/ HD pt 2) Nephrovite x1 tab daily 3) Nepro 1 tetra diana BID in b/w meals w variable intake 4) HS snack (to prevent hypoglycemia in AM) 5) Monitor BGs, need for carb controlled diet -A1C=6.0 6) Rec Low fiber/ Soft texture for EV now s/p banding 7) Monitor PO intake closely, rec liberalized diet for improved PO intake
--- NOTE | 2018-05-10 14:50 | Infectious Diseases Prog Note ---
Assessment/Plan Assessment/Plan ASSESSMENT: 1. sepsis, shock, pneumonia, CT chest noted, pressors, bradycardia, sputum culture with mold, ? aspergillus pna, f/u CT noted, some sob today, no fevers or leukocytosis, no secretions - s/p 14 day course meropenem and doxycycline - s/p 10 days voriconazole day # 10, held secondary to elevated TB which has now normalized - d/w microbiology and ID of mold pending (send out), await results - off pressors, clinically stable, no fevers, respiratory status stable - monitor chest x-ray and labs, T-spot negative, cocci pending, histo negative, cryptococcus pending - check, cocci, cryptococcus, mold ID, consider thoracentesis and bronchoscopy if clinically/chest x-ray worsens - d/w Dr. Schmidt and he thinks f/u CT improved - hesitate to restart antibiotic/anti-fungal tx since has had full course of anti-bacterial tx and mold can be colonizer 2. End-stage renal disease, hemodialysis, has a right femoral line hemodialysis line and also left arm graft. 3. History of fistula in the past. 4. History of PermCath in the past 5. Anemia of chronic disease. 6. Hypertension - Blood pressure treatment per primary. 7. No history of diabetes mentioned. 8. Chronic kidney disease. 9. Obesity. 10. History of cholecystectomy. 11. History of parathyroidectomy. 12. History of carpal tunnel syndrome. 13. History of fractures, ORIF. 14. Past medical history noted. 15. Multiple drug allergies including cefazolin, Cipro, contrast media, gentamicin, ketamine, Levaquin and penicillin, she seems to tolerate carbapenems. 16. Social history is negative . 17. Family history is noncontributory. 18. MAR was noted. 19. Case discussed with RN. 20. Continue treatment per primary consultants. 21. Notes were noted and orders were entered. Subjective Constitutional: Denies: fever HEENT: Denies: congestion Respiratory: Denies: shortness of breath Cardiovascular: Denies: chest pain Gastrointestinal/Abdominal: Denies: nausea, vomiting, diarrhea Neurologic: Denies: headache Psychiatric: Denies: depression Skin: Denies: rash Hematologic: Denies: bleeding Musculoskeletal: Denies: pain Allergies: Coded Allergies: CEFAZOLIN (Verified Allergy, Unknown, 10/02/10) CIPROFLOXACIN (Verified Allergy, Unknown, 10/02/10) GENTAMICIN (Verified Allergy, Unknown, 10/02/10) KETAMINE (Verified Allergy, Unknown, 03/29/18) LEVOFLOXACIN (Verified Allergy, Unknown, 10/02/10) PENICILLINS (Verified Allergy, Unknown, ITCH, 10/02/10) Uncoded Allergies: CONTRAST MEDIA (Adverse Reaction, Mild, MILD ITCHING AFTER CONTRAST MEDIA, 04/30/17) Objective Vital Signs Last 24 Hour Vital Signs Date Time Temp Pulse Resp B/P (MAP) Pulse Ox O2 Delivery O2 Flow Rate FiO2 05/10/18 12:00 72 05/10/18 12:00 97.6 79 18 109/69 (82) 99 05/10/18 09:00 Room Air 05/10/18 08:00 98.2 72 18 79/37 (51) 93 05/10/18 08:00 65 05/10/18 04:00 68 05/10/18 04:00 97.9 65 19 106/62 (77) 93 05/10/18 03:08 68 14 2.0 28 05/10/18 03:08 Nasal Cannula 2.0 28 05/10/18 03:08 94 Nasal Cannula 2.0 28 05/10/18 00:00 98.1 73 17 109/46 (67) 93 05/10/18 00:00 70 05/09/18 21:00 Room Air 05/09/18 20:00 98.1 62 18 98/48 (65) 94 05/09/18 20:00 73 05/09/18 16:00 98.5 75 20 97/39 (58) 92 05/09/18 15:45 70 Height (Feet): 5 Height (Inches): 6.00 Weight (Pounds): 215 General Appearance: no acute distress HEENT: normocephalic, atraumatic, anicteric, mucous membranes moist Respiratory/Chest: lungs clear, normal breath sounds, no respiratory distress, no accessory muscle use Cardiovascular: normal rate, regular rhythm, no gallop/murmur, no JVD Abdomen: normal bowel sounds, soft, non tender, no organomegaly Genitourinary: other - no mckinney Extremities: no cyanosis Skin: no rash Neurologic/Psychiatric: brand representative II-XII grossly normal, alert, oriented x 3, responsive Lymphatic: no neck adenopathy Musculoskeletal: no effusion Objective CT Chest: IMPRESSION: * Dense consolidations with air bronchograms noted in the left upper lobe and, to a lesser extent, medial right lower lobe most likely representing multifocal pneumonia. Follow-up after appropriate treatment recommended to ensure resolution. * Patchy opacities in the right upper lobe are also likely infectious in etiology. These obscure the previously described lung nodule. Attention to this area on follow-up recommended. * Prominent hilar and mediastinal lymph nodes, possibly reactive in etiology. * Small bilateral pleural effusions. * Large hiatal hernia * Dialysis catheter tip in the right atrium. Evidence of central venous occlusion with multiple collateral veins noted in the mediastinum. * Nonspecific calcifications in the bilateral breasts are correlation with most recent mammogram recommended. If none performed recently, then recommend follow- up screening mammogram. * Findings suggestive of renal osteodystrophy Chest x-ray - 04/14 - Findings: Heart size and mediastinal contours stable. Femoral approach dialysis catheter is again noted. Multiple surgical clips noted in the bilateral axilla. Portions of a stents again visualized in the right axilla. Multiple surgical clips noted in the right arm. Event Specialist opacities in the left midlung peripherally. No evidence of pneumothorax. There is patchy opacity at the right base. Osseous structures stable. Calcifications in the right breast noted. Impression: Left-sided airspace opacities most concerning for pneumonia. There is slight interval increased density compared to prior exam which may be technical. 04/16/18 - chest x-ray - IMPRESSION: 1. Bilateral airspace opacities, most confluent in the left midlung field. Could be from consolidation/pneumonia. There is a broad differential. Follow to ensure resolution and exclude other mimics. 2. Suspect bilateral pleural effusions. 3. Vascular congestion. 04/20/18: Comparison: 04/16/2018 A single view chest radiograph was obtained. Findings: Interstitial edema again suspected mild in degree, slightly improved from the prior study. Heart size is stable. Large bore catheter projected over the right atrium entering from the IVC. Pleural-based density lateral aspect of the left lung again noted. Extensive surgical clips in the thoracic inlet and left axillary region noted. IMPRESSION: Some improvement in the initial edema. Other findings stable Chest x-ray - 04/23/18 - COMPARISON: Chest x-ray dated 04/19/18 FINDINGS: Single frontal view demonstrates a normal cardiomediastinal silhouette. Surgical clips in the neck base. Status post left axillary dissection. Central venous catheter terminating in the right atrium, may be extending from a femoral approach, grossly unchanged. Stable patchy opacity in the left mid lung zone. Increasing patchy opacity in bilateral lower lung zones, right greater the left. The visualized osseous structures are within normal limits. IMPRESSION: 1. Stable patchy opacity in the left mid lung zone. Increasing patchy opacity in bilateral lower lung zones, right greater the left. 2. Stable lines and postoperative findings as outlined above. Chest x-ray - 04/26/18 - Interstitial edema has improved significantly since over the last few days. There is a mass versus infiltrate in the left midlung that persists. There is extensive surgical clips both axilla. Vascular stent right upper arm noted. Heart size is normal. IMPRESSION: Interval improvement in CHF. Mass versus infiltrate in the left midlung Chest x-ray - 04/27/18 - Comparison: 04/26/2018 Findings: Again demonstrated is lateral pleural thickening and a peripheral polygonal dense parenchymal opacity, the latter appearing slightly larger than on the previous study. There is some hazy opacity in the right upper lung which is new since the prior study. Mild generalized interstitial prominence is again demonstrated. Right arm stent, bilateral axillary surgical clips are again noted. Femoral approach dialysis catheter is again noted, tip in the high right atrium. Impression: Increased size of left lateral pulmonary parenchymal opacity. This reflects dense consolidation demonstrated on prior radiographs and CT scan, perhaps slightly worse than on the previous study. Persistent lateral pleural thickening versus fluid. Possible hazy infiltrate in the right upper lobe Other stable findings as described Chest x-ray - 05/01/18 - IMPRESSION: 1. Persistent patchy opacities at the periphery of the left midlung and in the right lung base. 2. No significant change in diffuse the increased interstitial markings, likely representing interstitial edema versus interstitial pneumonitis. 05/02/18 - CT chest; IMPRESSION: Moderate right pleural effusion and small left pleural effusion likely loculated. Suspected infiltrate left perihilar region. Basal atelectasis. Extensive vasculopathy with the calcification of central veins within the upper chest and presence of collateral vessels suggestive of cysts significant Central venous occlusive disease. Permacath noted via inferior approach. Anasarca Trace pericardial effusion Large hiatal hernia. Atrophic kidneys consistent with end-stage renal disease. Abnormal bones. Renal osteodystrophy suspected. Chest x-ray - 05/04/18- Comparison: 05/02/2018 A single view chest radiograph was obtained. Findings: Patchy infiltrates noted bilaterally unchanged from the last exam. Heart is enlarged and stable. IMPRESSION: No significant change appreciated. Please refer to the CT chest 05/02/2018 Microbiology Date/Time Source Procedure Growth Status 04/24/18 15:15 Blood Blood Culture - Final NO GROWTH AFTER 5 DAYS Complete 05/07/18 10:29 Sputum Induced Gram Stain - Final Complete 05/07/18 10:29 Sputum Induced Sputum Culture - Final NORMAL UPPER RESPIRATORY ESTEPHANIE PRESENT Complete 05/07/18 10:29 Stool Clostridium difficile Toxin Assay - Final Complete 04/12/18 12:10 Rectum - Final NO CARBAPENEM-RESISTANT ENTEROBACTERI... Complete Laboratory Tests Test 05/10/18 07:00 White Blood Count 6.0 K/UL (4.8-10.8) Red Blood Count 2.93 M/UL (4.20-5.40) L Hemoglobin 8.7 G/DL (12.0-16.0) L Hematocrit 26.8 % (37.0-47.0) L Mean Corpuscular Volume 92 FL (80-99) Mean Corpuscular Hemoglobin 29.8 PG (27.0-31.0) Mean Corpuscular Hemoglobin Concent 32.5 G/DL (32.0-36.0) Red Cell Distribution Width 15.9 % (11.6-14.8) H Platelet Count 172 K/UL (150-450) Mean Platelet Volume 9.4 FL (6.5-10.1) Neutrophils (%) (Auto) 69.5 % (45.0-75.0) Lymphocytes (%) (Auto) 16.8 % (20.0-45.0) L Monocytes (%) (Auto) 7.1 % (1.0-10.0) Eosinophils (%) (Auto) 6.0 % (0.0-3.0) H Basophils (%) (Auto) 0.6 % (0.0-2.0) Sodium Level 143 MMOL/L (136-145) Potassium Level 3.5 MMOL/L (3.5-5.1) Chloride Level 102 MMOL/L (98-107) Carbon Dioxide Level 33 MMOL/L (21-32) H Anion Gap 8 mmol/L (5-15) Blood Urea Nitrogen 32 mg/dL (7-18) H Creatinine 9.0 MG/DL (0.55-1.30) H Estimat Glomerular Filtration Rate 5.6 mL/min (>60) Glucose Level 104 MG/DL (74-106) Calcium Level 9.6 MG/DL (8.5-10.1) Phosphorus Level 3.4 MG/DL (2.5-4.9) Magnesium Level 1.8 MG/DL (1.8-2.4) Current Medications Medications (Trade) Dose Ordered Sig/Marcos Route PRN Reason Start Time Stop Time Status Last Admin Dose Admin Acetaminophen (Tylenol) 650 mg Q6H PRN ORAL Mild Pain/Temp > 100.5 05/04/18 12:00 05/12/18 11:59 05/10/18 13:14 Albuterol/ Ipratropium (Albuterol/ Ipratropium) 3 ml Q4H PRN HHN sob 05/08/18 10:30 05/13/18 10:29 05/08/18 21:41 Aspirin (ASA) 81 mg DAILY ORAL 05/05/18 09:00 05/17/18 08:59 05/07/18 09:07 Chlorhexidine Gluconate (Nivia-Hex 2%) 1 applic DAILY@1999 TOPIC 05/04/18 20:00 05/13/18 19:59 05/09/18 21:45 Citalopram Hydrobromide (celeXA) 40 mg DAILY ORAL 05/05/18 09:00 06/03/18 08:59 05/09/18 10:00 Diphenoxylate HCl/ Atropine (Lomotil) 2.5 mg Q8H PRN ORAL Diarrhea 05/10/18 07:15 06/09/18 07:14 Epoetin Alejandro (Procrit (for ESRD on dialysis)) 10,000 units WED-WED-WED SUBQ 05/06/18 21:00 06/05/18 20:59 05/09/18 21:47 Guaifenesin (Robitussin) 300 mg Q6H PRN ORAL For Cough 05/04/18 12:00 05/14/18 11:59 Heparin Sodium (Porcine) (Heparin 5000 units/ml) 5,000 units EVERY 12 HOURS SUBQ 05/04/18 12:30 05/12/18 12:29 Midodrine (Pro-Amatine) 10 mg Q8HR ORAL 05/04/18 14:00 05/19/18 13:59 05/10/18 13:13 Mirtazapine (Remeron) 7.5 mg BEDTIME ORAL 05/04/18 21:00 05/25/18 20:59 05/09/18 21:46 Pantoprazole (Protonix) 40 mg BIAC ORAL 05/04/18 16:30 06/03/18 16:29 05/10/18 05:47 Polyethylene Glycol (Miralax) 17 gm BEDTIME ORAL 05/04/18 21:00 05/21/18 20:59 Sevelamer Carbonate (Renvela) 800 mg THREE TIMES A DAY ORAL 05/08/18 13:00 05/13/18 08:59 05/10/18 13:15 Zolpidem Tartrate (Ambien) 5 mg HSPRN PRN ORAL Insomnia 05/06/18 23:30 05/13/18 23:29 05/09/18 21:46 Edgardo Mcbride MD May 10, 2018 14:50
--- NOTE | 2018-05-10 15:02 | Diagnostic Imaging Report ---
Indication: Shortness of breath Technique: One view of the chest Comparison: 05/04/2018 Findings: Peripheral left lung opacity, generalized mild interstitial congestion are unchanged. Femoral approach dialysis catheter is again demonstrated in the high right atrium. Bilateral axillary surgical clips and right arm stent are again noted. The heart size is normal. Hazy opacities on the right have improved somewhat since prior exam Impression: Slightly improved right lung pleural and/or parenchymal disease. Otherwise little interim change
--- NOTE | 2018-05-10 15:52 | Internal Med Progress Note ---
Subjective Date of Service: May 10, 2018 Physician Name Harrell,Edward Attending Physician Ash Henley MD Current Medications Medications (Trade) Dose Ordered Sig/Marcos Route PRN Reason Start Time Stop Time Status Last Admin Dose Admin Acetaminophen (Tylenol) 650 mg Q6H PRN ORAL Mild Pain/Temp > 100.5 05/04/18 12:00 05/12/18 11:59 05/10/18 13:14 Albuterol/ Ipratropium (Albuterol/ Ipratropium) 3 ml Q4H PRN HHN sob 05/08/18 10:30 05/13/18 10:29 05/08/18 21:41 Aspirin (ASA) 81 mg DAILY ORAL 05/05/18 09:00 05/17/18 08:59 05/07/18 09:07 Chlorhexidine Gluconate (Nivia-Hex 2%) 1 applic DAILY@2000 TOPIC 05/04/18 20:00 05/13/18 19:59 05/09/18 21:45 Citalopram Hydrobromide (celeXA) 40 mg DAILY ORAL 05/05/18 09:00 06/03/18 08:59 05/09/18 10:00 Diphenoxylate HCl/ Atropine (Lomotil) 2.5 mg Q8H PRN ORAL Diarrhea 05/10/18 07:15 06/09/18 07:14 Epoetin Alejandro (Procrit (for ESRD on dialysis)) 10,000 units MON-WED-WED SUBQ 05/06/18 21:00 06/05/18 20:59 05/09/18 21:47 Guaifenesin (Robitussin) 300 mg Q6H PRN ORAL For Cough 05/04/18 12:00 05/14/18 11:59 Heparin Sodium (Porcine) (Heparin 5000 units/ml) 5,000 units EVERY 12 HOURS SUBQ 05/04/18 12:30 05/12/18 12:29 Midodrine (Pro-Amatine) 10 mg Q8HR ORAL 05/04/18 14:00 05/19/18 13:59 05/10/18 13:13 Mirtazapine (Remeron) 7.5 mg BEDTIME ORAL 05/04/18 21:00 05/25/18 20:59 05/09/18 21:46 Pantoprazole (Protonix) 40 mg BIAC ORAL 05/04/18 16:30 06/03/18 16:29 05/10/18 05:47 Polyethylene Glycol (Miralax) 17 gm BEDTIME ORAL 05/04/18 21:00 05/21/18 20:59 Sevelamer Carbonate (Renvela) 800 mg THREE TIMES A DAY ORAL 05/08/18 13:00 05/13/18 08:59 05/10/18 13:15 Zolpidem Tartrate (Ambien) 5 mg HSPRN PRN ORAL Insomnia 05/06/18 23:30 05/13/18 23:29 05/09/18 21:46 Allergies: Coded Allergies: CEFAZOLIN (Verified Allergy, Unknown, 10/02/10) CIPROFLOXACIN (Verified Allergy, Unknown, 10/02/10) GENTAMICIN (Verified Allergy, Unknown, 10/02/10) KETAMINE (Verified Allergy, Unknown, 03/29/18) LEVOFLOXACIN (Verified Allergy, Unknown, 10/02/10) PENICILLINS (Verified Allergy, Unknown, ITCH, 10/02/10) Uncoded Allergies: CONTRAST MEDIA (Adverse Reaction, Mild, MILD ITCHING AFTER CONTRAST MEDIA, 04/30/17) ROS Limited/Unobtainable: No Constitutional: Reports: no symptoms HEENT: Reports: no symptoms Cardiovascular: Reports: no symptoms Respiratory: Reports: no symptoms Gastrointestinal/Abdominal: Reports: no symptoms Genitourinary: Reports: no symptoms Neurologic/Psychiatric: Reports: no symptoms Subjective 53 YO F admitted with shortness of breath. Now pneumonia. Cover for Int Med- Dr Henley. S/P endoscopy 05/06/18. S/P transfusion 2 units PRBC on 05/05/18. Objective Last Vital Signs Date Time Temp Pulse Resp B/P (MAP) Pulse Ox O2 Delivery O2 Flow Rate FiO2 05/10/18 15:10 Room Air 05/10/18 12:00 72 05/10/18 12:00 97.6 18 109/69 (82) 99 05/10/18 03:08 2.0 28 Laboratory Tests Test 05/10/18 07:00 White Blood Count 6.0 K/UL (4.8-10.8) Red Blood Count 2.93 M/UL (4.20-5.40) L Hemoglobin 8.7 G/DL (12.0-16.0) L Hematocrit 26.8 % (37.0-47.0) L Mean Corpuscular Volume 92 FL (80-99) Mean Corpuscular Hemoglobin 29.8 PG (27.0-31.0) Mean Corpuscular Hemoglobin Concent 32.5 G/DL (32.0-36.0) Red Cell Distribution Width 15.9 % (11.6-14.8) H Platelet Count 172 K/UL (150-450) Mean Platelet Volume 9.4 FL (6.5-10.1) Neutrophils (%) (Auto) 69.5 % (45.0-75.0) Lymphocytes (%) (Auto) 16.8 % (20.0-45.0) L Monocytes (%) (Auto) 7.1 % (1.0-10.0) Eosinophils (%) (Auto) 6.0 % (0.0-3.0) H Basophils (%) (Auto) 0.6 % (0.0-2.0) Sodium Level 143 MMOL/L (136-145) Potassium Level 3.5 MMOL/L (3.5-5.1) Chloride Level 102 MMOL/L (98-107) Carbon Dioxide Level 33 MMOL/L (21-32) H Anion Gap 8 mmol/L (5-15) Blood Urea Nitrogen 32 mg/dL (7-18) H Creatinine 9.0 MG/DL (0.55-1.30) H Estimat Glomerular Filtration Rate 5.6 mL/min (>60) Glucose Level 104 MG/DL (74-106) Calcium Level 9.6 MG/DL (8.5-10.1) Phosphorus Level 3.4 MG/DL (2.5-4.9) Magnesium Level 1.8 MG/DL (1.8-2.4) Intake and Output 05/09/18 05/10/18 19:00 07:00 Intake Total 120 ml Balance 120 ml Intake Oral 120 ml # Voids 2 # Bowel Movements 1 1 Objective Objective GENERAL: Awake, responsive, alert HEAD AND NECK: Pupils equal and reactive to light. Extraocular movements intact. Neck was supple. No JVD. LUNGS: Fair air entry. Poor respiratory effort. No wheeze or rhonchi. Decreased air in the bases. HEART: S1 and S2. Distant heart sounds. No murmur. ABDOMEN: Soft, nondistended, and nontender. Morbidly obese. EXTREMITIES: No cyanosis, clubbing, or edema. Right femoral area PermCath as well as left upper extremity AV fistula, functional. NEUROLOGIC: Cranial nerves II through XII are grossly intact. The patient is moving all the extremities spontaneously. Gait was not assessed due to the patient's status. PSYCHIATRIC: Mood and affect are intact. Assessment/Plan Assessment/Plan Assessment/Plan Assessment/Plan 1. Sepsis, most likely secondary to left upper lobe and, to a lesser extent, medial right lower lobe most likely representing multifocal pneumonia. 2. Hypotension, possible septic shock. 3. Pancytopenia with severe thrombocytopenia resolving. 4. End-stage renal disease, on hemodialysis. 5. Altered mental status, most likely toxic metabolic encephalopathy as a result of infection as well as uremia. 6. Anemia of chronic kidney disease. 7. Morbid obesity. 8. Bradycardia. 9. Diarrhea 10. Abdominal pain. 11. Severe anemia PLAN: follow up laboratory and cultures. Dr. Fredrick Conner from Nephrology consult; Hemodialysis 05/10/18. Dr. Mcbride from ID consult. Discussed with the family member, brother at the bedside. Abx:D/C Meropenem, doxycycline and vfend per ID Code status is Full Code. DVT prophylaxis: heparin subcutaneous. continue Dopamine Drip CT of chest noted. Cortisol level Pending. C. Diff neg. Send stool for repeat Continue dopamine See GI consult; KUB=no obstruction advance diet S/P Transfusion 2 unit PRBC 05/05/18 Edward Harrell MD May 10, 2018 15:52
[2018-05-10 16:00] VITALS: BP 76/41
--- NOTE | 2018-05-10 16:24 | NUR ---
Social Service Note Patient accepted at [facility] to room 20A. SW informed primary nurse. Nurse to call report to [phone]. 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
--- NOTE | 2018-05-10 17:25 | NUR ---
NURSE NOTES: Called to [facility] to give report, they said they cannot take any report and asked me to called them before 6:30.
--- NOTE | 2018-05-10 18:22 | NUR ---
NURSE NOTES: Called for the second time to give report but the nurse said she cannot take report at this time and wanted me to call in half an hour. Addendum: 05/10/18 at 1824 by MADELINE VILLANUEVA RN RN I mentioned to the nurse that turkey picker time is 18:30.
--- NOTE | 2018-05-10 18:55 | NUR ---
NURSE NOTES: called for the third time to [facility] to give report, they told me that they will call me back.
--- NOTE | 2018-05-10 19:50 | NUR ---
HAND-OFF: Report given to WILLI Adams.
--- NOTE | 2018-05-10 19:55 | NUR ---
NURSE NOTES: Received report from WILLI Teresa. Patient awake, alert and verbally responsive. No SOB, no acute distress, denies any pain nor any discomfort at this time. Pt with discharged order to [facility], per Brii, she's been calling the hospital for report but no nurse available to take the report at this time. Will follow-up. Pt aware of the D/C order. cardiac monitor already removed, all belongings already prepared.
[2018-05-10 20:00] VITALS: BP 98/41
--- NOTE | 2018-05-10 20:00 | NUR ---
NURSE NOTES: Called [facility] ambulance, ETA 2014, pt made aware.
--- NOTE | 2018-05-10 20:05 | NUR ---
NURSE NOTES: Called [facility], spoke with Angela, oil house attendant, report given. Let her know of ambulance ETA. Paper work ready.
[2018-05-10] MEDS: Dyna-Hex 2% Top Sol 2oz TOPIC SCH (20:35)
[2018-05-10] MEDS: Miralax 17gm pkt ORAL SCH (20:36)
--- NOTE | 2018-05-10 21:04 | NUR ---
NURSE NOTES: Follow-up ambulance pick-up, new ETA in 20 minutes. Pt made aware.
--- NOTE | 2018-05-10 22:20 | NUR ---
NURSE NOTES: Patient burr picker by [facility] with 2 PROGRAM SUPPORT ASSISTANT, patient awake, alert and verbally responsive. No SOB, no acute distress, denies any pain nor any discomfort at this time. All belongings with the patient. Discharge packet given to the EMT. Left comfortably in no apparent distress. VS stable.
--- NOTE | 2018-05-12 09:45 | Discharge Summary ---
Discharge Summary Discharge Summary _ DATE OF ADMISSION: 04/12/2018 DATE OF DISCHARGE: 05/10/2018 DISCHARGED BY: Dr. Henley REASON FOR ADMISSION: 53 years old female with past medical history of end-stage renal disease, on hemodialysis, anemia of chronic disease, hypertension, morbid obesity, presented from home for evaluation due to altered mental status. No fever or chills. No chest pain or shortness of breath. No dizziness. Patient had dialysis four days ago. In emergency department upon triage patient was noted to have a low blood pressure 53/42. No fever. Laboratory workup revealed leukopenia WBC 3.4, hemoglobin 11.6, hematocrit 36.4 , platelet count 81. BUN 57, creatinine 15.4, consistent with known history of end-stage renal disease and significant uremia. Lactic acid 1.1. Stable LFT . Troponin -0.029. EKG revealed sinus tach , no acute ischemic changes. Pro BNP 5143. CXR revealed new opacity in the left mid to lower lung zone. No pleural effusion. Patient started on pressor/dopamine and subsequently admitted to ICU for further management with diagnoses of septic shock, pneumonia, altered mental status, ESRD. CONSULTANTS: dentistry teacher Dr. Arreola pulmonary Dr. Schmidt ID specialist GI specialist Dr. Diaz volunteer recruiter Dr. Conner psychiatrist [facility] COURSE: Patient admitted to ICU. Hemodynamic status was closely monitored. Pressor continued to keep mean arterial blood pressure above 65. First Aid Instructor closely followed . Patient received emergent hemodialysis initially as per volunteer recruiter recommendations with close monitoring of volumes, renal parameters and electrolytes. Supplemental oxygen provided to keep pulse oximetry above 92%. Pulmonary toilet provided. Patient started on empiric antibiotic per ID recommendation. Second troponin with mild elevation 0.058. Echocardiogram revealed preserved ejection fraction 60% with mild left ventricular hypertrophy. Right ventricular systolic pressure of 34. Troponin level were trended , the last troponin negative. Per dentistry teacher patient had troponin leak due to renal failure. Levels were low and flat , and this pattern was inconsistent with acute coronary syndrome. No ischemic changes on ECG. Patient denied any chest pain. Patient was started on midodrine and was able to be weaned from pressor. Blood pressure was closely monitored and remained stable with midodrine. CT of the chest revealed dense consolidation in left upper lobe and to a lesser extent in the medial right lower lobe , most likely representing multifocal pneumonia. Patchy opacity in the right upper lobe, likely infectious etiology. Prominent enlarged and mediastinal lymph node, possibly reactive in etiology. Small bilateral pleural effusion. Supplemental oxygen titrated to keep pulse oximetry above 92%. Pulmonary toilet provided as needed. DVT prophylaxis provided. Patient started on empiric antibiotic as per ID recommendation. Blood cultures were negative. Influenza screen test was negative. Sputum culture induced on revealed evidence of mold. Stool culture , repeated sputum culture, stool for C. difficile were all negative. Patient undergone 14-day course of treatment with meropenem and doxycycline. Patient also undergone 10 days treatment of voriconazole. Identification of mold still pending (the test was sent out). T spot negative. Fungal serology for cocci and cryptococci still pending. Histoplasma serology negative. Infectious disease doctor recommended to repeat CT of the chest and consider thoracentesis and bronchoscopy, if clinically worsened or indicated by CT scan . Repeated CT of the chest showed moderate right pleural effusion and small left pleural effusion , likely loculated. Basal atelectasis. Overall some improvement from previous CT of the chest. Patient completed antibiotics. No fever, no leukocytosis. ID specialist was reluctant to continue antibiotics at this time,. Patient will need close monitoring at the [facility], follow-up with chest x-ray and identification of mold, possible aspergillosis pneumona. Hemodialysis provided as per volunteer recruiter with close monitoring of volumes , electrolytes and renal parameters. Electrolytes corrected as needed. Hemoglobin and hematocrit were closely monitored with goal to keep hemoglobin above 7. Patient undergone transfusion of 2 units of packed red blood cells. Stool for occult blood x3 was negative. CEA was within normal range. Anemia workup revealed evidence of anemia of chronic disease. Patient was on Epogen. Prior to discharge hemoglobin 8.7 hematocrit 26.8. Counts were closely monitored; leukopenia and thrombocytopenia resolved. Prior to discharge WBC 6.0, platelets count up to normal-172. GI specialist closely followed. Abdominal ultrasound revealed no acute finding it showed small echogenic kidneys consistent with end-stage renal disease. Hepatitis panel was negative Patient undergone upper endoscopy with banding of 7 bands of esophageal varices , noted hiatal hernia and portal hypertensive gastropathy. GI specialist recommended to repeat banding in 1 month. Diet was slowly advanced as tolerated. Antiemetic provided as needed. Patient started on the GI prophylaxis. Bowel regimen instituted. GI specialist recommended outpatient follow up for evaluation or possible PBC/ primary biliary cirrhosis. Pain management was addressed as needed. Patient was working with physical therapy. Psychiatrist seen and evaluated patient , and diagnosed patient with anxiety and panic attacks. Patient started on Celexa and Remeron. Reality orientation and supportive therapy provided. Patient clinically stabilized and was ready to for transfer to [facility] for further management. FINAL DIAGNOSES: Sepsis likely secondary to multifocal pneumonia Septic shock - resolved Hypotension Acute respiratory failure with hypoxemia -resolved Multifocal pneumonia, status post treatment Questionable Aspergillus pneumonia Acute toxic metabolic encephalopathy due to infection and uremia - resolved End-stage renal disease , on hemodialysis Pancytopenia with severe thrombocytopenia - resolved Anemia of chronic kidney disease , requiring blood transfusion Morbid obesity Status post EGD with banding of 7 bands of esophageal varices Hiatal hernia Portal hypertensive gastropathy Anxiety Panic attack DISCHARGE MEDICATIONS: See Medication Reconciliation list. DISCHARGE INSTRUCTIONS: Patient was discharged to [facility]. Follow-up with medical doctor at the facility I have been assigned to dictate discharge summary for this account. I was not involved in the patient's management. Johanne King NP May 12, 2018 09:45
== END 2018-05-10 22:20 | DRG 871 ==
LOC: EMR 11:20 → EDBEDREQ 11:27 → 2E 11:29 → ICU 11:29 → UNDOADMIN 11:29 → EDBEDREQ 13:06 → EDBEDREQSVC 14:17 → EDBEDREQ 15:07 → ICU 16:58 → 2W 05-02 03:27 → 4E 05-02 23:55 → 2E 05-04 11:21
PROC: 5A1D70Z Performance of Urinary Filtration, Intermittent, Less than 6 Hours Per Day (ICD-10-PCS; principal; 2018-04-13)
PROC: 06L38CZ Occlusion of Esophageal Vein with Extraluminal Device, Via Natural or Artificial Opening Endoscopic (ICD-10-PCS; 2018-05-06)
DX: A41.9 Sepsis, unspecified organism (principal); R65.21 Severe sepsis with septic shock; G92 Toxic encephalopathy; N18.6 End stage renal disease; I85.01 Esophageal varices with bleeding; J96.01 Acute respiratory failure with hypoxia; D61.818 Other pancytopenia; B44.9 Aspergillosis, unspecified; I13.2 Hypertensive heart and chronic kidney disease with heart failure and with stage 5 chronic kidney disease, or end stage renal disease; D69.6 Thrombocytopenia, unspecified; I50.9 Heart failure, unspecified; Z99.2 Dependence on renal dialysis; D63.1 Anemia in chronic kidney disease; E66.01 Morbid (severe) obesity due to excess calories; Z68.34 Body mass index [BMI] 34.0-34.9, adult; E03.9 Hypothyroidism, unspecified; R00.1 Bradycardia, unspecified; R79.89 Other specified abnormal findings of blood chemistry; F41.0 Panic disorder [episodic paroxysmal anxiety]; R19.7 Diarrhea, unspecified; K59.00 Constipation, unspecified; K44.9 Diaphragmatic hernia without obstruction or gangrene
CPT/HCPCS: 36415; 71045; 71250; 71260; 74018; 76700; 80048; 80053; 80061; 80202; 82140; 82248; 82270; 82378; 82533; 82550; 82553; 82728; 82962; 83036; 83540; 83550; 83605; 83735; 83880; 84100; 84439; 84443; 84480; 84481; 84484; 84550; 85007; 85025; 85610; 85651; 85730; 86140; 86171; 86635; 86705; 86709; 86710; 86738; 86803; 86850; 86870; 86900; 86901; 86904; 86920; 87040; 87045; 87070; 87081; 87205; 87324; 87340; 87449; 93005; 93306; 94003; 94150; 94640; 94664; 94760; 96361; 96365; 96375; 99291; 99292; J2405; J2765; J3490; J7620; J8499